=== PATIENT | female | born 1965 | race Hispanic/Latino ===

== ENCOUNTER 2019-10-10 05:00 | Emergency (ER) | payer OTHER ==
[~2019-10-10 05:00] MED LIST: ARIP30TA8 PO; CELE100 PO; DIVA500T69 PO; FLUO20CA30 PO; HYDR50CA PO; INSU100V12 SQ; INSU10VI3 SQ; OLME1TAB7 PO
[2019-10-10] MEDS ORDERED: KETOROLAC TROMETHAMINE 30MG/ML ONE (05:44)
[2019-10-10] MEDS ORDERED: DEXAMETHASONE SOD PHOSPHATE 10MG/ML 1ML VIAL ONE ×2 (05:44→05:48)
[2019-10-10] MEDS ORDERED: ORPHENADRINE CITRATE 30 MG/ML ML ONE (05:44)
[2019-10-10] MEDS ORDERED: LIDOCAINE 5% TOPICAL PATCH TP ONE (05:49)
== END 2019-10-10 06:54 | disposition home or self-care (01) ==
LOC: EDH 05:00
DX: S39.012A Strain of muscle, fascia and tendon of lower back, initial encounter (principal); F41.9 Anxiety disorder, unspecified; E11.9 Type 2 diabetes mellitus without complications; E78.5 Hyperlipidemia, unspecified; F32.9 Major depressive disorder, single episode, unspecified; F14.10 Cocaine abuse, uncomplicated; I10 Essential (primary) hypertension; F20.9 Schizophrenia, unspecified; Z90.49 Acquired absence of other specified parts of digestive tract; Z88.8 Allergy status to other drugs, medicaments and biological substances; X50.0XXA Overexertion from strenuous movement or load, initial encounter; Y93.89 Activity, other specified; Y92.89 Other specified places as the place of occurrence of the external cause; Y99.8 Other external cause status
CPT/HCPCS: 96374; 96375; 99284; J1100 ×2; J1885; J2360

== ENCOUNTER 2020-06-17 03:38 | Inpatient (IN) | payer SELFPAY ==
[~2020-06-17] VITALS: Ht 167.6 cm; Wt 108.9 kg
[2020-06-17] MEDS ORDERED: ONDANSETRON HCL 4 MG/2 ML VIAL ONE (03:48)
[2020-06-17] MEDS ORDERED: SODIUM CHLORIDE 0.9% 1000ML 1,000 ML IV ONE ×2 (03:49→05:39)
[2020-06-17] MEDS ORDERED: MORPHINE SULFATE 2 MG/ML 1ML SYG ONE (03:49)
[2020-06-17 04:02] LABS: BASOPHILS % (AUTO) 0.2 % (0.0-5.0); EOSINOPHILS % (AUTO) 0.2 % (0.0-8.0); LYMPHOCYTES % (AUTO) 12.3 % (21.0-51.0); MEAN CORPUSCULAR HEMOGLOBIN 29.4 pg (27.0-33.0); MEAN CORPUSCULAR VOLUME 84.1 fL (79-99); MONOCYTES % (AUTO) 5.6 % (3.0-13.0); NEUTROPHILS % (AUTO) 81.4 % (40.0-77.0); PLATELET COUNT (AUTO) 218 K/uL (130-400); RED BLOOD CELL COUNT(AUTO) 5.23 MIL/uL (4.00-5.50); RED CELL DISTRIBUTION WIDTH 11.9 % (11.0-15.5); WHITE BLOOD COUNT (AUTO) 9.8 K/uL (4.8-10.8)
[2020-06-17 04:38] LABS: ALBUMIN 3.4 g/dL (3.5-5.0); CREATININE 0.8 mg/dL (0.5-1.5); TOTAL PROTEIN, SERUM 8.9 g/dL (6.0-8.3)
[2020-06-17 05:03] LABS: APPEARANCE,URINE Clear (CLEAR); BILIRUBIN,URINE Negative (NEGATIVE); COLOR,URINE Yellow (YELLOW); GLUCOSE, URINE (UA) >=1000 mg/dL (NEGATIVE); KETONES,URINE >=80 mg/dL (NEGATIVE); LEUKOCYTE ESTERASE ,URINE Negative (NEGATIVE); NITRATE,URINE Negative (NEGATIVE); OCCULT BLOOD,URINE Negative (NEGATIVE); PH,URINE 5.5 (5.0-8.0); PROTEIN,URINE Trace mg/dL (NEGATIVE)
[2020-06-17] MEDS ORDERED: INSULIN HUMULIN R 100 UNIT/ML 3ML ONE ×2 (05:10→09:04)
[2020-06-17 05:12] LABS: AMPHET/METH SCREEN,URINE NEGATIVE (NEGATIVE); BARBITURATE SCREEN, URINE NEGATIVE (NEGATIVE); BENZODIAZEPINES SCREEN,URINE NEGATIVE (NEGATIVE); CANNABINOID SCREEN,URINE NEGATIVE (NEGATIVE); COCAINE SCREEN,URINE POSITIVE (NEGATIVE); OPIATE SCREEN,URINE POSITIVE (NEGATIVE); PHENCYCLIDINE SCREEN,URINE NEGATIVE (NEGATIVE)
[2020-06-17 05:13] LABS: BACTERIA,URINE None Seen /HPF (None Seen); RBC,URINE 0-1 /HPF (0-1); SQUAMOUS EPITHELIAL CELL,UR Rare /HPF (0-2); WBC,URINE 0-1 /HPF (0-1); YEAST,URINE BUDDING Rare /HPF (None Seen)
[2020-06-17] MEDS ORDERED: KETOROLAC TROMETHAMINE 30MG/ML ONE (05:40)
[2020-06-17] MEDS ORDERED: ONDANSETRON HCL 4 MG/2 ML VIAL IVP PRN (06:45)
[2020-06-17] MEDS ORDERED: KETOROLAC TROMETHAMINE 15MG/ML IV PRN (06:45)
[2020-06-17] MEDS ORDERED: INSULIN HUMULIN R 100 UNIT/ML 3ML SQ SCH (07:30)
[2020-06-17] MEDS ORDERED: HYDROMORPHONE HCL 0.5 MG/0.5 ML ML IVP PRN (08:45)
[2020-06-17] MEDS ORDERED: HYDROMORPHONE 1 MG/1 ML AMP ONE ×2 (08:56→08:59)
[2020-06-17] MEDS ORDERED: ENOXAPARIN SODIUM 40 MG/0.4 ML SYRINGE SQ ONE (08:56)
[2020-06-17] MEDS: ENOXAPARIN SODIUM 40 MG/0.4 ML SYRINGE SQ SCH (09:00)
[2020-06-17] MEDS: LACTATED RINGERS 1000ML 1,000 ML IV SCH ×2 (14:38→22:38)
[2020-06-17] MEDS ORDERED: KETOROLAC TROMETHAMINE 15MG/ML ONE (15:08)
[2020-06-18] MEDS ORDERED: KETOROLAC TROMETHAMINE 30MG/ML ONE (00:12)
[2020-06-18] MEDS ORDERED: HYDROMORPHONE HCL 0.5 MG/0.5 ML ML ONE (05:59)
[2020-06-18 06:16] LABS: BASOPHILS % (AUTO) 0.4 % (0.0-5.0); EOSINOPHILS % (AUTO) 5.7 % (0.0-8.0); HEMATOCRIT 35.9 % (36-48); LYMPHOCYTES % (AUTO) 44.9 % (21.0-51.0); MEAN CORPUSCULAR HEMOGLOBIN 29.2 pg (27.0-33.0); MEAN CORPUSCULAR HGB CONC 33.1 g/dL (32.0-36.0); NEUTROPHILS % (AUTO) 40.8 % (40.0-77.0); PLATELET COUNT (AUTO) 167 K/uL (130-400); RED BLOOD CELL COUNT(AUTO) 4.08 MIL/uL (4.00-5.50); RED CELL DISTRIBUTION WIDTH 12.3 % (11.0-15.5); WHITE BLOOD COUNT (AUTO) 5.1 K/uL (4.8-10.8)
[2020-06-18 06:33] LABS: ALBUMIN 2.5 g/dL (3.5-5.0); BILIRUBIN,TOTAL 0.6 mg/dL (0.2-1.0); CREATININE 0.8 mg/dL (0.5-1.5); POTASSIUM 4.1 mmol/L (3.5-5.1)
[2020-06-18] MEDS: LACTATED RINGERS 1000ML 1,000 ML IV SCH ×2 (06:38→16:54)
[2020-06-18] MEDS ORDERED: ENOXAPARIN SODIUM 40 MG/0.4 ML SYRINGE SQ ONE (08:23)
[2020-06-18] MEDS ORDERED: LACTATED RINGERS 1000ML 1,000 ML IV ONE (08:24)
[2020-06-18] MEDS: PANTOPRAZOLE 40 MG/VIAL IVP SCH ×2 (09:00→14:38)
[2020-06-18] MEDS: ENOXAPARIN SODIUM 40 MG/0.4 ML SYRINGE SQ SCH (09:00)
[2020-06-18] MEDS ORDERED: KETOROLAC TROMETHAMINE 15MG/ML ONE (09:17)
[2020-06-18] MEDS ORDERED: BISACODYL 10 MG SUPP.RECT RC SCH (11:15)
[2020-06-18] MEDS ORDERED: INSULIN GLARGINE 100 UNITS/ML 10 ML VIAL SQ SCH (11:15)
[2020-06-18 12:00] VITALS: BP 127/72
[2020-06-18] MEDS: INSULIN HUMULIN R 100 UNIT/ML 3ML SQ SCH ×4 (12:30→22:27)
--- NOTE | 2020-06-18 13:30 | NUR ---
ER ADMIT TO ROOM SERVICES DR. DIAZ, DATABASE COMPLETE.
--- NOTE | 2020-06-18 14:00 | NUR ---
SHOWERED. STATES WAS IN ER FOR 2 DAYS AND FEELS SWEATY AND DIRTY.
[2020-06-18 16:00] VITALS: BP 136/98
--- NOTE | 2020-06-18 16:00 | NUR ---
UP AD TIMOTHY. MEDICATED ONCE THIS SHIFT.
[2020-06-18] MEDS: HYDROMORPHONE 1 MG/1 ML AMP IVP PRN (16:08)
[2020-06-18] MEDS ORDERED: BISACODYL 10 MG SUPP.RECT RC ONE (17:30)
--- NOTE | 2020-06-18 17:58 | NUR ---
cm note met with patient and states resides at home alone. independent with adls/ambulation. no dme. [facility] does not see PCP, discussed community resources in the area and rx assist programs, pt verbalizes understanding. has mother who is her support system rosemary martin [phone]. dc plan is back home at or. states no dc needs. Addendum: 06/18/20 at 1805 by MARCIE MENENDEZ CM Amended: Links added.
[2020-06-18 22:02] VITALS: BP 135/65
[2020-06-19 00:53] VITALS: BP 145/81
[2020-06-19] MEDS: HYDROMORPHONE 1 MG/1 ML AMP IVP PRN (03:34)
[2020-06-19 04:33] VITALS: BP 123/63
[2020-06-19] MEDS: INSULIN HUMULIN R 100 UNIT/ML 3ML SQ SCH ×2 (05:43→11:39)
[2020-06-19] MEDS: LACTATED RINGERS 1000ML 1,000 ML IV SCH (05:43)
[2020-06-19] MEDS: PANTOPRAZOLE 40 MG/VIAL IVP SCH (07:19)
[2020-06-19] MEDS: ENOXAPARIN SODIUM 40 MG/0.4 ML SYRINGE SQ SCH (07:20)
[2020-06-19 08:00] VITALS: BP 141/75
--- NOTE | 2020-06-19 08:00 | NUR ---
ASSESSMENT PT IS AAOX3 DENIES CP DENIES SOB DENIES NV DENIES ABD PAIN. NO COMPLAINTS. PT STATES SHE HAD SEVERAL BMS YESTERDAY. SITTING UPRIGHT IN BED, CALL LIGHT WITHIN REACH.
[2020-06-19 08:01] LABS: BASOPHILS % (AUTO) 0.2 % (0.0-5.0); EOSINOPHILS % (AUTO) 5.4 % (0.0-8.0); HEMATOCRIT 34.9 % (36-48); LYMPHOCYTES % (AUTO) 52.1 % (21.0-51.0); MEAN CORPUSCULAR HEMOGLOBIN 29.8 pg (27.0-33.0); MEAN CORPUSCULAR HGB CONC 33.8 g/dL (32.0-36.0); MEAN CORPUSCULAR VOLUME 88.1 fL (79-99); MONOCYTES % (AUTO) 7.7 % (3.0-13.0); NEUTROPHILS % (AUTO) 34.4 % (40.0-77.0); PLATELET COUNT (AUTO) 156 K/uL (130-400); RED BLOOD CELL COUNT(AUTO) 3.96 MIL/uL (4.00-5.50); RED CELL DISTRIBUTION WIDTH 12.1 % (11.0-15.5); WHITE BLOOD COUNT (AUTO) 4.3 K/uL (4.8-10.8)
[2020-06-19 08:13] LABS: CREATININE 0.8 mg/dL (0.5-1.5); MAGNESIUM 1.4 mg/dL (1.80-2.40); POTASSIUM 3.6 mmol/L (3.5-5.1)
[2020-06-19] MEDS ORDERED: METF-444 PO (11:16)
[2020-06-19 11:27] VITALS: BP 122/76
--- NOTE | 2020-06-19 12:12 | NUR ---
DC TO HOME PT VERBALIZES DC INSTRUCTIONS UNDERSTANDING AGREES TO TAKE MEDS ORDERED. AGREES TO FOLLOW UP WITH PRIMARY MD. ALL QUESTIONS ANSWERED, PIV REMOVED CATH TIP INTACT. AWAITING RIDE.
== END 2020-06-19 12:00 | disposition home or self-care (01) | DRG 390 ==
LOC: EDH 03:38 → EDHIP 03:39 → 4CH 06-18 12:05
PROVIDERS: ADMIT Hospitalist; ATTEND Hospitalist
PROC: 0D9670Z Drainage of Stomach with Drainage Device, Via Natural or Artificial Opening (ICD-10-PCS; principal; 2020-06-17)
DX: K56.609 Unspecified intestinal obstruction, unspecified as to partial versus complete obstruction (principal); E11.9 Type 2 diabetes mellitus without complications; F14.90 Cocaine use, unspecified, uncomplicated; F17.290 Nicotine dependence, other tobacco product, uncomplicated; F20.9 Schizophrenia, unspecified; F32.9 Major depressive disorder, single episode, unspecified; E86.0 Dehydration; E78.5 Hyperlipidemia, unspecified; F41.9 Anxiety disorder, unspecified; I10 Essential (primary) hypertension; M19.90 Unspecified osteoarthritis, unspecified site; Z90.49 Acquired absence of other specified parts of digestive tract
CPT/HCPCS: 36415; 74018; 74176; 80048; 80053; 80305; 81001; 82948; 83036; 83605; 83690; 83735; 85025; 93005; C9113; G0378; J1170; J1650; J1815; J1885; J2405; J7030; J7120

== ENCOUNTER 2022-05-03 16:55 | Inpatient (IN) | payer OTHER ==
[~2022-05-03] VITALS: Ht 170.2 cm; Wt 102.6 kg
[~2022-05-03 16:55] MED LIST changes: +ACET-2247 PO; -ARIP30TA8 PO; -CELE100 PO; -DIVA500T69 PO; -FLUO20CA30 PO; -HYDR50CA PO; -INSU100V12 SQ; -INSU10VI3 SQ; +METF-444 PO; -OLME1TAB7 PO
[2022-05-03 17:41] LABS: APPEARANCE,URINE CLEAR (CLEAR); BILIRUBIN,URINE NEGATIVE (NEGATIVE); COLOR,URINE YELLOW (YELLOW); GLUCOSE, URINE (UA) >=1000 mg/dL (NEGATIVE); KETONES,URINE 15 mg/dL (NEGATIVE); LEUKOCYTE ESTERASE ,URINE NEGATIVE (NEGATIVE); NITRATE,URINE NEGATIVE (NEGATIVE); OCCULT BLOOD,URINE NEGATIVE (NEGATIVE); PH,URINE 6.5 (5.0-8.0); PROTEIN,URINE TRACE mg/dL (NEGATIVE)
[2022-05-03 17:52] LABS: RBC,URINE 0-1 /HPF (0-1); WBC,URINE 0-1 /HPF (0-1)
[2022-05-03 17:53] LABS: BACTERIA,URINE Rare /HPF (None Seen); SQUAMOUS EPITHELIAL CELL,UR Few /HPF (0-2); YEAST,URINE BUDDING Few /HPF (None Seen)
[2022-05-03] MEDS ORDERED: KETOROLAC 30MG VIAL (30MG/ML) IVP ONE (18:00)
[2022-05-03 18:03] LABS: AMPHET/METH SCREEN,URINE NEGATIVE (NEGATIVE); BARBITURATE SCREEN, URINE NEGATIVE (NEGATIVE); BENZODIAZEPINES SCREEN,URINE NEGATIVE (NEGATIVE); CANNABINOID SCREEN,URINE NEGATIVE (NEGATIVE); COCAINE SCREEN,URINE POSITIVE (NEGATIVE); OPIATE SCREEN,URINE NEGATIVE (NEGATIVE); PHENCYCLIDINE SCREEN,URINE NEGATIVE (NEGATIVE)
[2022-05-03 18:19] LABS: BASOPHILS % (AUTO) 0.3 % (0.0-5.0); EOSINOPHILS % (AUTO) 0.7 % (0.0-8.0); HEMATOCRIT 43.8 % (36-48); LYMPHOCYTES % (AUTO) 14.8 % (21.0-51.0); MEAN CORPUSCULAR HEMOGLOBIN 29.9 pg (27.0-33.0); MEAN CORPUSCULAR HGB CONC 35.4 g/dL (32.0-36.0); MEAN CORPUSCULAR VOLUME 84.6 fL (79-99); MONOCYTES % (AUTO) 6.7 % (3.0-13.0); NEUTROPHILS % (AUTO) 77.1 % (40.0-77.0); PLATELET COUNT (AUTO) 211 K/uL (130-400); RED BLOOD CELL COUNT(AUTO) 5.18 MIL/uL (4.00-5.50); WHITE BLOOD COUNT (AUTO) 9.1 K/uL (4.8-10.8)
[2022-05-03] MEDS ORDERED: PANTOPRAZOLE 40 MG/VIAL IVP ONE (18:30)
[2022-05-03 18:52] LABS: CREATININE 0.8 mg/dL (0.5-1.5); POTASSIUM 3.7 mmol/L (3.5-5.1)
[2022-05-03 18:56] LABS: ALBUMIN 3.1 g/dL (3.5-5.0); BILIRUBIN,TOTAL 0.6 mg/dL (0.2-1.0)
[2022-05-03] MEDS ORDERED: INSULIN HUMULIN R 100 UNIT/ML 3ML SQ ONE (20:30)
[2022-05-03] MEDS ORDERED: 0.9%NACL 1000ML 1,000 ML IV ONE (20:30)
[2022-05-03] MEDS ORDERED: ONDANSETRON 4MG INJ IVP ONE (20:30)
[2022-05-03] MEDS ORDERED: MORPHINE 4 MG SYG IVP ONE (20:30)
[2022-05-03] MEDS ORDERED: DiphenhydrAMINE HCL 50 MG/ML VIAL IV PRN (21:30)
[2022-05-03] MEDS ORDERED: INSULIN HUMULIN R 100 UNIT/ML 3ML ONE (22:27)
[2022-05-03] MEDS: 0.9%NACL 1000ML 1,000 ML IV SCH (22:31)
[2022-05-03] MEDS: MORPHINE 2 MG SYG IV PRN (23:49)
[2022-05-04 02:30] VITALS: BP 118/66
[2022-05-04] MEDS: MORPHINE 2 MG SYG IV PRN ×4 (04:53→19:43)
[2022-05-04 07:00] VITALS: BP 123/64
[2022-05-04 07:09] LABS: HEMOGLOBIN A1C 11.8 % (4.0-6.0)
[2022-05-04 07:10] LABS: CREATININE 0.6 mg/dL (0.5-1.5); MAGNESIUM 2.3 mg/dL (1.80-2.40); POTASSIUM 4.4 mmol/L (3.5-5.1)
[2022-05-04 07:29] LABS: HEMATOCRIT 37.1 % (36-48); MEAN CORPUSCULAR HGB CONC 34.8 g/dL (32.0-36.0); MEAN CORPUSCULAR VOLUME 86.3 fL (79-99); RED BLOOD CELL COUNT(AUTO) 4.3 MIL/uL (4.00-5.50); RED CELL DISTRIBUTION WIDTH 12.2 % (11.0-15.5); WHITE BLOOD COUNT (AUTO) 5.5 K/uL (4.8-10.8)
[2022-05-04] MEDS ORDERED: INSULIN HUMULIN R 100 UNIT/ML 3ML SQ SCH (07:30)
[2022-05-04] MEDS: PANTOPRAZOLE 40 MG/VIAL IVP SCH (09:57)
[2022-05-04] MEDS: 0.9%NACL 1000ML 1,000 ML IV SCH ×2 (09:57→17:39)
[2022-05-04 12:00] VITALS: BP 108/69
[2022-05-04] MEDS: INSULIN HUMULIN R 100 UNIT/ML 3ML SQ SCH ×2 (13:26→17:51)
[2022-05-04] MEDS: ZOSYN 3.375GM +NS 50ML IV SCH ×2 (13:35→22:22)
[2022-05-04 16:00] VITALS: BP 119/87
[2022-05-04 20:01] VITALS: BP 113/67
[2022-05-05] VITALS: BP 132/68
[2022-05-05] MEDS: MORPHINE 2 MG SYG IV PRN ×5 (01:42→23:48)
[2022-05-05 04:17] VITALS: BP 116/70
[2022-05-05] MEDS: ZOSYN 3.375GM +NS 50ML IV SCH ×3 (05:08→20:58)
[2022-05-05] MEDS: 0.9%NACL 1000ML 1,000 ML IV SCH ×3 (05:09→23:55)
[2022-05-05] MEDS: INSULIN HUMULIN R 100 UNIT/ML 3ML SQ SCH ×5 (05:37→22:53)
[2022-05-05 08:00] VITALS: BP 143/73
[2022-05-05] MEDS: PANTOPRAZOLE 40 MG/VIAL IVP SCH (08:43)
[2022-05-05 11:22] LABS: BASOPHILS % (AUTO) 0.4 % (0.0-5.0); EOSINOPHILS % (AUTO) 4.7 % (0.0-8.0); HEMATOCRIT 36.8 % (36-48); LYMPHOCYTES % (AUTO) 42.5 % (21.0-51.0); MEAN CORPUSCULAR HEMOGLOBIN 30.2 pg (27.0-33.0); MEAN CORPUSCULAR HGB CONC 34.8 g/dL (32.0-36.0); MEAN CORPUSCULAR VOLUME 86.8 fL (79-99); MONOCYTES % (AUTO) 5.8 % (3.0-13.0); NEUTROPHILS % (AUTO) 46.2 % (40.0-77.0); PLATELET COUNT (AUTO) 165 K/uL (130-400); RED BLOOD CELL COUNT(AUTO) 4.24 MIL/uL (4.00-5.50); RED CELL DISTRIBUTION WIDTH 12.1 % (11.0-15.5); WHITE BLOOD COUNT (AUTO) 4.6 K/uL (4.8-10.8)
[2022-05-05 11:32] LABS: CREATININE 0.6 mg/dL (0.5-1.5); MAGNESIUM 1.6 mg/dL (1.80-2.40); POTASSIUM 3.8 mmol/L (3.5-5.1)
[2022-05-05 12:00] VITALS: BP 129/77
[2022-05-05 16:07] VITALS: BP 129/71
[2022-05-05 20:49] VITALS: BP 134/77
[2022-05-06 00:32] VITALS: BP 109/53
[2022-05-06 04:10] VITALS: BP 136/59
[2022-05-06] MEDS: ZOSYN 3.375GM +NS 50ML IV SCH ×3 (05:03→20:51)
[2022-05-06] MEDS: INSULIN HUMULIN R 100 UNIT/ML 3ML SQ SCH ×4 (06:00→20:57)
[2022-05-06 06:50] LABS: EOSINOPHILS % (AUTO) 3.1 % (0.0-8.0); HEMATOCRIT 40.9 % (36-48); LYMPHOCYTES % (AUTO) 50.6 % (21.0-51.0); MEAN CORPUSCULAR HGB CONC 34.2 g/dL (32.0-36.0); MEAN CORPUSCULAR VOLUME 87.6 fL (79-99); MONOCYTES % (AUTO) 5.3 % (3.0-13.0); NEUTROPHILS % (AUTO) 40.6 % (40.0-77.0); PLATELET COUNT (AUTO) 196 K/uL (130-400); RED BLOOD CELL COUNT(AUTO) 4.67 MIL/uL (4.00-5.50); RED CELL DISTRIBUTION WIDTH 12.2 % (11.0-15.5); WHITE BLOOD COUNT (AUTO) 4.9 K/uL (4.8-10.8)
[2022-05-06 07:04] LABS: CREATININE 0.7 mg/dL (0.5-1.5); POTASSIUM 3.8 mmol/L (3.5-5.1)
[2022-05-06 08:00] VITALS: BP 120/54
[2022-05-06] MEDS: 0.9%NACL 1000ML 1,000 ML IV SCH ×2 (09:00→16:59)
[2022-05-06] MEDS: PANTOPRAZOLE 40 MG/VIAL IVP SCH (09:00)
[2022-05-06] MEDS: MORPHINE 2 MG SYG IV PRN ×3 (09:00→20:58)
[2022-05-06 12:00] VITALS: BP 136/73
[2022-05-06 16:00] VITALS: BP 156/87
[2022-05-06 20:00] VITALS: BP 131/70
[2022-05-07] VITALS: BP 117/71
[2022-05-07] MEDS: MORPHINE 2 MG SYG IV PRN ×2 (04:14→08:36)
[2022-05-07] MEDS: ZOSYN 3.375GM +NS 50ML IV SCH (04:14)
[2022-05-07 04:46] VITALS: BP 156/81
[2022-05-07] MEDS: INSULIN HUMULIN R 100 UNIT/ML 3ML SQ SCH ×2 (06:53→12:39)
[2022-05-07 08:30] VITALS: BP 137/77
[2022-05-07] MEDS: PANTOPRAZOLE 40 MG/VIAL IVP SCH (08:36)
[2022-05-07 12:18] VITALS: BP 158/84
== END 2022-05-07 13:30 | disposition home or self-care (01) | DRG 390 ==
LOC: EDH 16:55 → EDHIP 16:56 → 3BH 05-04 01:34
PROVIDERS: ADMIT Internal Medicine; ATTEND Internal Medicine
DX: K56.609 Unspecified intestinal obstruction, unspecified as to partial versus complete obstruction (principal); F14.10 Cocaine abuse, uncomplicated; E11.65 Type 2 diabetes mellitus with hyperglycemia; E78.5 Hyperlipidemia, unspecified; F32.A Depression, unspecified; E66.01 Morbid (severe) obesity due to excess calories; F41.9 Anxiety disorder, unspecified; F20.9 Schizophrenia, unspecified; F17.290 Nicotine dependence, other tobacco product, uncomplicated; Z20.822 Contact with and (suspected) exposure to COVID-19; E83.42 Hypomagnesemia; F43.10 Post-traumatic stress disorder, unspecified; I10 Essential (primary) hypertension; Z91.19 Patient's noncompliance with other medical treatment and regimen; Z90.49 Acquired absence of other specified parts of digestive tract; Z68.35 Body mass index [BMI] 35.0-35.9, adult
CPT/HCPCS: 36415; 74018; 74176; 80048; 80053; 80061; 80305; 81001; 82948; 83036; 83605; 83690; 83735; 85025; 85027; 87635; C9113; G0378; J1815; J1885; J2270; J2405; J2543; J7030

== ENCOUNTER 2023-06-20 16:11 | Emergency (ER) | payer OTHER ==
[~2023-06-20] VITALS: Ht 160 cm; Wt 113.4 kg
[2023-06-20 16:20] VITALS: BP 149/82; PULSE 105; RESP 18
[2023-06-20] MEDS ORDERED: KETOROLAC 60 MG VIAL (30MG/ML) IM ONE (16:30)
== END 2023-06-20 19:09 | disposition home or self-care (01) ==
LOC: EDH 16:11
DX: S16.1XXA Strain of muscle, fascia and tendon at neck level, initial encounter (principal); F31.9 Bipolar disorder, unspecified; E11.9 Type 2 diabetes mellitus without complications; I10 Essential (primary) hypertension; Z79.84 Long term (current) use of oral hypoglycemic drugs; Z88.8 Allergy status to other drugs, medicaments and biological substances; V89.2XXA Person injured in unspecified motor-vehicle accident, traffic, initial encounter; Y93.89 Activity, other specified; Y92.89 Other specified places as the place of occurrence of the external cause; Y99.8 Other external cause status
CPT/HCPCS: 99283; 72050; 96372; J1885

== ENCOUNTER 2023-06-30 18:15 | Emergency (ER) | payer OTHER ==
[~2023-06-30] VITALS: Ht 167.6 cm; Wt 90.7 kg
[2023-06-30] MEDS ORDERED: MORPHINE 2 MG SYG IVP ONE (19:30)
[2023-06-30] MEDS ORDERED: ONDANSETRON 4MG INJ IVP ONE (19:30)
[2023-06-30] MEDS ORDERED: 0.9%NACL 1000ML 1,000 ML IV ONE (19:30)
[2023-06-30 20:25] LABS: BASOPHILS # (AUTO) 0.03 K/uL (0.00-0.20); BASOPHILS % (AUTO) 0.4 % (0.0-5.0); EOSINOPHILS # (AUTO) 0.16 K/uL (0.00-0.70); HEMATOCRIT 41.2 % (36-48); IMMATURE GRANULOCYTE ABSOLUTE 0.04 K/uL (0-1); LYMPHOCYTES # (AUTO) 2.8 K/uL (1.0-4.8); LYMPHOCYTES % (AUTO) 35.1 % (21.0-51.0); MEAN CORPUSCULAR HEMOGLOBIN 29.9 pg (27.0-33.0); MEAN CORPUSCULAR VOLUME 85.7 fL (79-99); MONOCYTES # (AUTO) 0.5 K/uL (0.1-1.0); MONOCYTES % (AUTO) 5.9 % (3.0-13.0); NEUTROPHILS # (AUTO) 4.4 K/uL (1.8-7.7); NEUTROPHILS % (AUTO) 56.1 % (40.0-77.0); PLATELET COUNT (AUTO) 204 K/uL (130-400); RED BLOOD CELL COUNT(AUTO) 4.81 MIL/uL (4.00-5.50); WHITE BLOOD COUNT (AUTO) 7.9 K/uL (4.8-10.8)
[2023-06-30 20:35] LABS: APPEARANCE,URINE CLEAR (CLEAR); BILIRUBIN,URINE NEGATIVE (NEGATIVE); COLOR,URINE YELLOW (YELLOW); GLUCOSE, URINE (UA) >=1000 mg/dL (NEGATIVE); KETONES,URINE NEGATIVE (NEGATIVE); LEUKOCYTE ESTERASE ,URINE NEGATIVE Leu/uL (NEGATIVE); NITRATE,URINE NEGATIVE (NEGATIVE); OCCULT BLOOD,URINE NEGATIVE (NEGATIVE); PROTEIN,URINE NEGATIVE (NEGATIVE)
[2023-06-30 20:36] LABS: ADD UA MICROSCOPIC YES; SQUAMOUS EPITHELIAL CELL,UR FEW /HPF (0-2)
[2023-06-30 20:39] LABS: CREATININE 0.7 mg/dL (0.5-1.5); POTASSIUM 3.9 mmol/L (3.5-5.1)
[2023-06-30 20:43] LABS: ALBUMIN 2.9 g/dL (3.5-5.0); BILIRUBIN,TOTAL 0.3 mg/dL (0.2-1.0); TOTAL PROTEIN, SERUM 7.5 g/dL (6.0-8.3)
[2023-06-30] MEDS ORDERED: IOHEXOL 350 MG/ML 100ML INFUS..BTL IV ONE (20:53)
[2023-06-30] MEDS ORDERED: CIPR-278 PO (22:12)
[2023-06-30] MEDS ORDERED: METR-172 PO (22:12)
[2023-06-30 23:28] VITALS: BP 132/78; PULSE 78; RESP 18; O2SAT 98
== END 2023-06-30 23:30 | disposition home or self-care (01) ==
LOC: EDH 18:15
DX: K57.90 Diverticulosis of intestine, part unspecified, without perforation or abscess without bleeding (principal); E11.9 Type 2 diabetes mellitus without complications; K21.9 Gastro-esophageal reflux disease without esophagitis
CPT/HCPCS: 99285; 74177; 96374; 71045; 96361; 96375; 84484; 80053; 83690; 85025; 81001; 36415; J2270; J7030; J2405; Q9967

== ENCOUNTER 2023-11-01 08:02 | Emergency (ER) | payer OTHER ==
[~2023-11-01] VITALS: Ht 170.2 cm; Wt 90.7 kg
[~2023-11-01 08:02] MED LIST changes: +CIPR-278 PO; +METR-172 PO
[2023-11-01 08:03] VITALS: BP 128/64; PULSE 85; RESP 16
[2023-11-01 08:48] LABS: RAPID GROUP A STREP negative (NEGATIVE)
[2023-11-01 08:57] LABS: SARS-CoV-2, RNA, NAAT NEGATIVE SARS CoV-2 (NEGATIVE)
[2023-11-01 08:58] LABS: INFLUENZA TYPE A Negative For Type A (NEGATIVE); INFLUENZA TYPE B Negative For Type B (NEGATIVE)
[2023-11-01 10:36] LABS: APPEARANCE,URINE CLEAR (CLEAR); BILIRUBIN,URINE NEGATIVE (NEGATIVE); COLOR,URINE YELLOW (YELLOW); GLUCOSE, URINE (UA) >=1000 mg/dL (NEGATIVE); KETONES,URINE 40 mg/dL (NEGATIVE); LEUKOCYTE ESTERASE ,URINE NEGATIVE Leu/uL (NEGATIVE); NITRATE,URINE NEGATIVE (NEGATIVE); OCCULT BLOOD,URINE NEGATIVE (NEGATIVE); PROTEIN,URINE 50 mg/dL (NEGATIVE); UROBILINOGEN,URINE 0.2 mg/dL (0.2-1.0)
[2023-11-01 10:38] LABS: ADD UA MICROSCOPIC YES
[2023-11-01 10:53] LABS: MUCUS,URINE RARE LPF (None Seen); SQUAMOUS EPITHELIAL CELL,UR RARE /HPF (0-2)
[2023-11-01] MEDS ORDERED: INSULIN HUMULIN R 100 UNIT/ML 3ML SQ ONE (11:30)
== END 2023-11-01 12:14 | disposition home or self-care (01) ==
LOC: EDH 08:02
DX: B34.9 Viral infection, unspecified (principal); E11.65 Type 2 diabetes mellitus with hyperglycemia; K21.9 Gastro-esophageal reflux disease without esophagitis; E11.9 Type 2 diabetes mellitus without complications; Z20.822 Contact with and (suspected) exposure to COVID-19; Z79.84 Long term (current) use of oral hypoglycemic drugs; Z79.899 Other long term (current) drug therapy; Z98.890 Other specified postprocedural states; Z88.8 Allergy status to other drugs, medicaments and biological substances
CPT/HCPCS: 99283; 87635; 87880; 87804 ×2; 82948 ×2; 81001; 96372; J1815; C9803

== ENCOUNTER 2025-07-08 07:20 | Emergency (ER) | payer SELFPAY ==
[~2025-07-08] VITALS: Ht 167.6 cm; Wt 81.6 kg
[~2025-07-08 07:20] MED LIST changes: -ACET-2247 PO; +ASPI-1005 PO; +ATOR40TA69 PO; -CIPR-278 PO; +CLOP-31 PO; +GLYB2.5T6 PO; +INSU100I3 SQ; -METF-444 PO; +METF-445 PO; +METO25 PO; -METR-172 PO; +NITR0.4T50 SL; +PANT40TA55 PO
--- NOTE | 2025-07-08 08:18 | EKG ---
[facility] Test Date: 2025-07-08 Test Time: 07:21:55 Pat Name: LUL ARTHUR Department: ED Room: Gender: F Casework Manager: [id number] : 1965 Requested By: ZORA OCHOA Order Number: [id number] Reading MD: Ti Foreman Measurements Intervals [place] Rate: 80 P: -10 [place]: 130 QRS: 3 QRSD: 125 T: 16 QT: 412 QTc: 476 Interpretive Statements Sinus rhythm Right bundle branch block Compared to ECG 04/15/2025 15:28:22 No significant changes Electronically Signed On 07-09-2025 17:30:31 CDT by Ti Foreman Please click the below link to view image of tracing.
[2025-07-08 08:24] LABS: IMMATURE GRANULOCYTE ABSOLUTE 0.03 K/uL (0-1); NUCLEATED RED BLOOD CELLS 0.0 % (0.0-0.19); PLATELET COUNT (AUTO) 213 K/uL (130-400); RED BLOOD CELL COUNT(AUTO) 4.60 MIL/uL (4.00-5.50); RED CELL DISTRIBUTION WIDTH 12.2 % (11.0-15.5); WHITE BLOOD COUNT (AUTO) 7.3 K/uL (4.8-10.8)
--- NOTE | 2025-07-08 08:24 | HMCIMG ---
EXAM: CR Chest, 1 View. CLINICAL HISTORY: cp COMPARISON: 04/15/2025 chest single view. FINDINGS: LUNGS: There is no mass, infiltrate, or acute pulmonary abnormality. PLEURAL SPACES: No evidence of pleural effusion or pneumothorax. MEDIASTINUM: Cardiac size and mediastinal contours within normal limits. BONES: No acute osseous abnormality. IMPRESSION: No acute cardiopulmonary pathology is evident. /[place]
[2025-07-08 08:25] LABS: CREATININE 0.6 mg/dL (0.5-1.0); GLOMERULAR FILTR. RATE CALC 104.0 mL/min (>90); GLUCOSE,RANDOM 338.0 mg/dL (70-105); SODIUM SERUM 134.0 mmol/L (136-145); UREA NITROGEN, BLOOD 14.0 mg/dL (7-18)
[2025-07-08] MEDS: 0.9% NACL 500ML IV.SOLN 500 ML IV ONE (08:27)
[2025-07-08 08:29] LABS: ASPARTATE AMINOTRANSFERASE 20.0 U/L (10-37); TOTAL PROTEIN, SERUM 8.0 g/dL (6.0-8.3)
--- NOTE | 2025-07-08 08:39 | NUR ---
refused covid swab
[2025-07-08] MEDS ORDERED: AZIT250T9 PO (10:54)
[2025-07-08] MEDS ORDERED: NAPR-1196 PO (10:54)
--- NOTE | 2025-07-08 10:54 | ERN ---
ED Note History of Present Illness Stated Complaint: CP Chief Complaint: Chest Pain Time Seen by MD: 07:31 Dictation: 60-year-old female presenting to the emergency department with generalized body aches low-grade fever chills chest discomfort and headaches over the past few days. No abdominal pain or vomiting Allergies: Coded Allergies: No Known Drug Allergies (Verified Allergy, Unknown, 05/04/22) lisinopril (Verified Allergy, Unknown, 05/04/22) Home Meds Active Scripts Insulin Aspart (Novolog Flexpen) 100 Unit/Ml (3 Ml) Insuln.pen, 2 UNITS SQ TIDAC for 30 Days, #4 SYRINGE 2 Refills Prov:GEE MARTIN MD 04/23/25 Glyburide (Glyburide 2.5MG Tab) 2.5 Mg Tab, 1 TAB PO DAILY for 30 Days, #30 TAB 1 Refill Prov:GEE MARTIN MD 04/23/25 Metformin HCl (Metformin HCl) 850 Mg Tablet, 1 TAB PO BID for 30 Days, #60 TAB 2 Refills Prov:GEE MARTIN MD 04/23/25 Nitroglycerin (Nitroglycerin) 0.4 Mg Tab.subl, 1 TAB SL AD for chest pain, #25 TAB 1 Refill 1st sign of attack; may repeat every 5 mins; if pain persists after 3 in 15 m in, medical attention is recommended Prov:GEE MARTIN MD 04/22/25 Pantoprazole Sodium (Protonix) 40 Mg Ectab, 1 TAB PO DAILY for 30 Days, #30 TAB 1 Refill Prov:GEE MARTIN MD 04/22/25 Metoprolol Tartrate (Lopressor) 25 Mg Tab, 25 MG PO BID for 30 Days, #60 TAB 1 Refill Prov:GEE MARTIN MD 04/22/25 Clopidogrel Bisulfate (Plavix) 75 Mg Tablet, 75 MG PO DAILY for 30 Days, #30 TAB 1 Refill Prov:GEE MARTIN MD 04/22/25 Atorvastatin Calcium (LIPITOR) 40 Mg Tablet, 40 MG PO HS for 30 Days, #30 TAB 1 Refill Prov:GEE MARTIN MD 04/22/25 Aspirin (ASPIRIN 81MG CHEW TAB) 81 Mg Tab.chew, 81 MG PO DAILY for 30 Days, #30 TAB.CHEW 1 Refill Prov:GEE MARTIN MD 04/22/25 Past Medical History Past Medical History: Diabetes-Type II, High Cholesterol, Hypertension Additional Past Medical Hx: COCAINE, PTSD, OBESE, BOWEL 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 Surgical History: Cholecystectomy, Other Surgical History Other: HERNIA SX Family History: Negative Social History: Drugs, Lives with family History: Not Applicable Review of System Dictation Constitutional per HPI Eyes: Negative for injury, pain,redness, and discharge ENT: Negative for injury,pain or swelling Cardiovascular: Negative for chest pain, palpitations, and edema Respiratory: Per HPI Abdomen/GI: Negative for abdominal pain, nausea, vomiting, diarrhea, and constipation Back: Negative for injury and pain : Negative for injury, bleeding and discharge MS/Extremity: Negative for injury and deformity Skin: Negative for rash, and discoloration Neuro: Negative for headache, weakness, numbness, tingling, and seizure Psych: Negative for suicide ideation, homicidal ideation, and hallucinations Initial Vital Sign VS Vital Signs Date Time Temp Pulse Resp B/P (MAP) Pulse Ox O2 Delivery O2 Flow Rate FiO2 07/08/25 07:22 98.1 80 17 153/80 98 Room Air 0 Physical Exam Dictation General: awake, alert, NAD Head/Face: Normocephalic, atraumatic Eyes: PERRL, EOMI, vision at baseline ENT: oral cavity clear, TMs clear, no signs of infection Neck: Trachea midline, supple, no nuchal rigidity Cardiovascular: RRR, normal S1/S2, No MRGs, no JVD Respiratory: CTAB, no respiratory distress, No rales or wheezes Abdomen: Soft, non-tender, non-distended, normal bowel sounds, no guarding or rebound. Skin: Warm, dry, normal turgor, no rash MS/Extremity: Pulses equal, no cyanosis, neurovascular intact, FROM Neuro: COAx4, GCS 15, strength 5/5, CN 2-12 intact, normal cerebellar exam, normal gait, Psych: Normal behavior, mood, and affect normal Results (Laboratory/Radiology) Laboratory/Radiology Laboratory Tests Test 07/08/25 08:02 07/08/25 10:17 White Blood Count 7.3 K/uL (4.8-10.8) Red Blood Count 4.60 MIL/uL (4.00-5.50) Hemoglobin 14.1 g/dL (12.0-16.0) Hematocrit 40.8 % (36-48) Mean Corpuscular Volume 88.7 fL (79-99) Mean Corpuscular Hemoglobin 30.7 pg (27.0-33.0) Mean Corpuscular Hemoglobin Concent 34.6 g/dL (32.0-36.0) Red Cell Distribution Width 12.2 % (11.0-15.5) Platelet Count 213 K/uL (130-400) Mean Platelet Volume 11.4 fL (7.5-10.5) H Immature Granulocyte % (Auto) 0.4 % (0-1) Neutrophils (%) (Auto) 61.0 % (40.0-77.0) Lymphocytes (%) (Auto) 28.7 % (21.0-51.0) Monocytes (%) (Auto) 6.4 % (3.0-13.0) Eosinophils (%) (Auto) 3.0 % (0.0-8.0) Basophils (%) (Auto) 0.5 % (0.0-5.0) Neutrophils # (Auto) 4.4 K/uL (1.8-7.7) Lymphocytes # (Auto) 2.1 K/uL (1.0-4.8) Monocytes # (Auto) 0.5 K/uL (0.1-1.0) Eosinophils # (Auto) 0.22 K/uL (0.00-0.70) Basophils # (Auto) 0.04 K/uL (0.00-0.20) Absolute Immature Granulocyte (auto 0.03 K/uL (0-1) Nucleated Red Blood Cells 0.0 % (0.0-0.19) Sodium Level 134 mmol/L (136-145) L Potassium Level 4.1 mmol/L (3.5-5.1) Chloride Level 99 mmol/L (101-111) L Carbon Dioxide Level 30 mmol/L (21-32) Blood Urea Nitrogen 14 mg/dL (7-18) Creatinine 0.6 mg/dL (0.5-1.0) Glomerular Filtration Rate Calc 104 mL/min (>90) Random Glucose 338 mg/dL (70-105) H Total Calcium 8.9 mg/dL (8.5-10.1) Total Bilirubin 0.4 mg/dL (0.2-1.0) Direct Bilirubin 0.1 mg/dL (0.0-0.3) Aspartate Amino Transf (AST/SGOT) 20 U/L (10-37) Alanine Aminotransferase (ALT/SGPT) 25 U/L (12-78) Alkaline Phosphatase 140 U/L (50-136) H Troponin I High Sensitivity 15 ng/L (4-50) 14 ng/L (4-50) B-Type Natriuretic Peptide 46 pg/mL (0-100) Total Protein 8.0 g/dL (6.0-8.3) Albumin 2.9 g/dL (3.5-5.0) L Labs Reviewed?: Yes EKG Comment: Heart rate 58 normal sinus rhythm no STEMI or STEMI equivalent ED Course ED Course Orders Procedure Category Date Status Time 12 Lead Ekg Tracing- EKG 07/08/25 Complete Technical 07:31 Basic Metabolic Panel LAB 07/08/25 Complete 07:31 Cbc With Differential LAB 07/08/25 Complete 07:31 Hepatic Function Panel LAB 07/08/25 Complete 07:31 Troponin I High LAB 07/08/25 Complete Sensitivity 07:31 Chest 1vw RAD 07/08/25 Resulted 07:31 B-Type Natriuretic LAB 07/08/25 Complete Peptide 07:31 Ondansetron 4mg Inj PHA 07/08/25 Complete (Zofran 4mg Inj) 08:00 Ketorolac PHA 07/08/25 Complete Tromethamine 15mg/Ml 08:00 0.9% Nacl 500ml PHA 07/08/25 Complete Iv.Soln (Ns 500ml 08:00 Troponin I High LAB 07/08/25 Complete Sensitivity 10:11 Current Medications Medications (Trade) Dose Ordered Sig/Elmer Route PRN Reason Start Time Stop Time Status Last Admin Dose Admin Ketorolac Tromethamine (toRADol) 15 mg ONCE ONCE IV 07/08/25 08:00 07/08/25 08:01 DC 07/08/25 08:28 Ondansetron HCl (zoFRAN 4MG INJ) 4 mg ONCE ONCE IVP 07/08/25 08:00 07/08/25 08:01 DC 07/08/25 08:28 Sodium Chloride 500 ml @ 0 mls/hr ONCE ONCE IV 07/08/25 08:00 07/08/25 08:01 DC 07/08/25 08:27 Vital Signs Date Time Temp Pulse Resp B/P (MAP) Pulse Ox O2 Delivery O2 Flow Rate FiO2 07/08/25 07:22 98.1 80 17 153/80 98 Room Air 0 Medical Decision Making MDM MDM: Differential diagnosis: Rationale: Tests considered and ordered secondary to shared decision making include: Previous outside records reviewed: Old ER visits. Risk of complication and/or morbidity or mortality of patient management: None Medications-Per medication reconciliation Need for hospitalization: Patient does not meet criteria for hospitalization. Need for emergency major/minor surgery: No There are no social concerns with this patient. Prescription drug management Prescriptions will include symptomatic care Patient's prior external medical records from other ER visits were reviewed by me as indicated. Prior testing and results from previous visits were reviewed. Prior tests were taken into account with medical decision making and resource utilization, independent historian/historians were used to obtain complete medical history. I independently interpreted the test that were performed, results were reviewed by me and considered findings on radiology if ordered. Medical management and examination interpretation discussions were had by me with other qualified healthcare professionals as indicated for the patient's care. 60-year-old female with URI symptoms atypical chest pain negative workup heart score two stable for discharge prescriptions given. DX & DISP Disposition: Discharge Departure Impression: Primary Impression: Chest pain Additional Impression: Acute URI Condition: Stable Scripts Naproxen (Naproxen) 250 Mg Tablet 250 MG PO BID for 5 Days, #10 TAB Prov: ZORA OCHOA MD 07/08/25 Azithromycin (Azithromycin) 250 Mg Tablet 250 MG PO AD for cough for 5 Days, #6 TAB Prov: ZORA OCHOA MD 07/08/25 Referrals: SELF,REFERRAL (PCP) ZORA OCHOA MD Jul 08, 2025 10:54
[2025-07-08 11:05] VITALS: BP 147/79; PULSE 80; RESP 16; TEMP 98; O2SAT 98
== END 2025-07-08 11:12 | disposition home or self-care (01) ==
LOC: EDH 07:20
DX: R07.89 Other chest pain (principal); J06.9 Acute upper respiratory infection, unspecified; E11.9 Type 2 diabetes mellitus without complications; E66.9 Obesity, unspecified; E78.00 Pure hypercholesterolemia, unspecified; I10 Essential (primary) hypertension; Z79.02 Long term (current) use of antithrombotics/antiplatelets; Z79.4 Long term (current) use of insulin; Z79.82 Long term (current) use of aspirin; Z79.84 Long term (current) use of oral hypoglycemic drugs; Z79.899 Other long term (current) drug therapy; Z88.8 Allergy status to other drugs, medicaments and biological substances; Z90.49 Acquired absence of other specified parts of digestive tract
CPT/HCPCS: 99285; 96374; 71045; 96361; 96375; 80076; 84484 ×2; 80048; 83880; 85025; 36415; 93005; J1885; J7040; J2405

== ENCOUNTER → 2025-07-18 | Emergency (ER) | payer SELFPAY ==
[~2025-07-18] VITALS: Ht 170.2 cm; Wt 81.6 kg
[~2025-07-18] MED LIST changes: +AMOX1TAB16 PO; +AZIT250T9 PO; +FLUT16H NS; +LORA10TA7 PO; +NAPR-1196 PO
[2025-07-18] MEDS: 0.9% NACL 500ML IV.SOLN 500 ML IV ONE (06:26)
[2025-07-18 06:36] LABS: IMMATURE GRANULOCYTE ABSOLUTE 0.04 K/uL (0-1); NUCLEATED RED BLOOD CELLS 0.0 % (0.0-0.19); PLATELET COUNT (AUTO) 247 K/uL (130-400); RED BLOOD CELL COUNT(AUTO) 4.26 MIL/uL (4.00-5.50); RED CELL DISTRIBUTION WIDTH 11.9 % (11.0-15.5); WHITE BLOOD COUNT (AUTO) 7.3 K/uL (4.8-10.8)
[2025-07-18 06:56] LABS: CREATINE KINASE, TOTAL 34.0 U/L (21-232); CREATININE 0.6 mg/dL (0.5-1.0); GLOMERULAR FILTR. RATE CALC 104.0 mL/min (>90); GLUCOSE,RANDOM 270.0 mg/dL (70-105); SARS-CoV-2, RNA, NAAT NEGATIVE SARS CoV-2 (NEGATIVE); SODIUM SERUM 133.0 mmol/L (136-145); UREA NITROGEN, BLOOD 14.0 mg/dL (7-18)
[2025-07-18 07:03] LABS: INFLUENZA TYPE A Negative For Type A (NEGATIVE); INFLUENZA TYPE B Negative For Type B (NEGATIVE)
--- NOTE | 2025-07-18 07:20 | ERN ---
General Chief Complaint: Multiple Complaints Stated Complaint: GBW, DIZZINESS, SOB Time Seen by MD: 05:25 Source: patient History of Present Illness Initial Comments 60-year-old female coming coming in with multiple complaints. Per patient she has been having nausea vomiting dizziness generalized body weakness and diarrhea. She states that this has been ongoing for a couple of days. She states he has had something similar in the past and she was positive for COVID. Family members also state that they has been having these symptoms. Allergies: Coded Allergies: No Known Drug Allergies (Verified Allergy, Unknown, 05/04/22) lisinopril (Verified Allergy, Unknown, 05/04/22) Home Meds Active Scripts Naproxen (Naproxen) 250 Mg Tablet, 250 MG PO BID for 5 Days, #10 TAB Prov:ZORA OCHOA MD 07/08/25 Azithromycin (Azithromycin) 250 Mg Tablet, 250 MG PO AD for cough for 5 Days, #6 TAB Prov:ZORA OCHOA MD 07/08/25 Insulin Aspart (Novolog Flexpen) 100 Unit/Ml (3 Ml) Insuln.pen, 2 UNITS SQ TIDAC for 30 Days, #4 SYRINGE 2 Refills Prov:GEE MARTIN MD 04/23/25 Glyburide (Glyburide 2.5MG Tab) 2.5 Mg Tab, 1 TAB PO DAILY for 30 Days, #30 TAB 1 Refill Prov:GEE MARTIN MD 04/23/25 Metformin HCl (Metformin HCl) 850 Mg Tablet, 1 TAB PO BID for 30 Days, #60 TAB 2 Refills Prov:GEE MARTIN MD 04/23/25 Nitroglycerin (Nitroglycerin) 0.4 Mg Tab.subl, 1 TAB SL AD for chest pain, #25 TAB 1 Refill 1st sign of attack; may repeat every 5 mins; if pain persists after 3 in 15 min, medical attention is recommended Prov:GEE MARTIN MD 04/22/25 Pantoprazole Sodium (Protonix) 40 Mg Ectab, 1 TAB PO DAILY for 30 Days, #30 TAB 1 Refill Prov:GEE MARTIN MD 04/22/25 Metoprolol Tartrate (Lopressor) 25 Mg Tab, 25 MG PO BID for 30 Days, #60 TAB 1 Refill Prov:GEE MARTIN MD 04/22/25 Clopidogrel Bisulfate (Plavix) 75 Mg Tablet, 75 MG PO DAILY for 30 Days, #30 TAB 1 Refill Prov:GEE MARTIN MD 04/22/25 Atorvastatin Calcium (LIPITOR) 40 Mg Tablet, 40 MG PO HS for 30 Days, #30 TAB 1 Refill Prov:GEE MARTIN MD 04/22/25 Aspirin (ASPIRIN 81MG CHEW TAB) 81 Mg Tab.chew, 81 MG PO DAILY for 30 Days, #30 TAB.CHEW 1 Refill Prov:GEE MARTIN MD 04/22/25 Past Medical History Past Medical History: Diabetes-Type II, High Cholesterol, Hypertension, [place], TIA Medical History Other: COCAINE, PTSD, OBESE, BOWEL 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 Past Surgical History: Cholecystectomy, Other, Surgical History Other: HERNIA SX Family History Family History: Negative Social History Social History: Drugs, Lives with family Female( History) History: Not Applicable ROS Dictation CONSTITUTIONAL: No chills, no fever, weakness, no diaphoresis, malaise. HEAD/FACE: No signs of trauma. EENT: No eye pain, no blurred vision, no tearing, no double vision, no ear pain, no ear discharge, no nose pain, no nasal congestion, no throat pain, no throat swelling, no mouth pain. RESPIRATORY: No cough, no orthopnea, no SOB, no stridor, no wheezing. CARDIOVASCULAR: chest pain, no edema, no palpitations, no syncope. GASTROINTESTINAL/ABDOMINAL: No abdominal pain, no constipation, diarrhea, no nausea, no vomiting. GENITOURINARY: No abnormal discharge, no dysuria, no frequent urination, no hematuria. No complaints of pain in the genitals. MUSCULOSKELETAL: No back pain, no gout, no joint pain, no joint swelling, no muscle pain, no muscle stiffness, no neck pain. INTEGUMENTARY: No change in color, no change in hair/nails, no dryness, no lesion, no lumps, no rash. NEUROLOGICAL/PSYCH: No anxiety, not depressed, no emotional problem, no headache, no numbness, no pre-existing deficit, no history of seizures, no tremors, no weakness. HEMATOLOGIC/LYMPHATIC: Not anemic, no history of blood clots, no apparent bleeding, no bruising, glands not swollen. All Systems Negative, Except as Noted. Physical Exam Physical Exam Dictation VITAL SIGNS: Reviewed. GENERAL APPEARANCE: Alert, oriented x3, no acute distress, obese. HEAD AND FACE: Non-traumatic. EYES: PERRL, pink conjunctivas, eyelid no trauma, anterior chamber clear. EARS: Pinnas intact and no signs of trauma or erythema. Ear canals clear and no discharge. TMs erythema. NOSE: No discharge, no bleeding. Bilateral nasal turbinate swelling OROPHARYNX: Mouth normal, teeth no caries, tongue pink. Pharynx erythema. Tonsils no exudates, no abscesses noted. Mucous membrane moist. NECK: Supple, non-tender, no thyromegaly, no masses, no JVD, no bruits. BREAST: Deferred. CHEST: No tenderness, no crepitus, no paradoxical movement, no retractions. LUNGS: Clear, well-ventilated, symmetric, no rales, no wheezing, no rhonchi, no stridor, good breath sounds bilaterally. HEART: Regular rate, regular rhythm, no murmur, no gallops. VASCULAR: No peripheral edema. ABDOMEN: Soft, positive bowel sounds, nondistended, no guarding, nontender, no rebound, no masses no hepatomegaly, no splenomegaly, no Gil's sign, no hernias. RECTAL: Deferred. GENITAL: Deferred. NEUROLOGICAL: Normal speech, gross motor function intact, gross sensory function intact. MUSCULOSKELETAL: Neck nontender, full range of motion, back nontender, full range of motion. EXTREMITIES: Nontender, full range of motion. SKIN: Color pink, dry, no turgor, no rash, no lacerations, no abrasions, no contusions. LYMPHATICS: Deferred. Results Laboratory and Microbiology Lab and Micro Result Laboratory Tests Test 07/18/25 06:08 07/18/25 07:21 07/18/25 09:35 07/18/25 10:16 White Blood Count 7.3 K/uL (4.8-10.8) Red Blood Count 4.26 MIL/uL (4.00-5.50) Hemoglobin 13.1 g/dL (12.0-16.0) Hematocrit 36.9 % (36-48) Mean Corpuscular Volume 86.6 fL (79-99) Mean Corpuscular Hemoglobin 30.8 pg (27.0-33.0) Mean Corpuscular Hemoglobin Concent 35.5 g/dL (32.0-36.0) Red Cell Distribution Width 11.9 % (11.0-15.5) Platelet Count 247 K/uL (130-400) Mean Platelet Volume 11.2 fL (7.5-10.5) H Immature Granulocyte % (Auto) 0.6 % (0-1) Neutrophils (%) (Auto) 43.3 % (40.0-77.0) Lymphocytes (%) (Auto) 44.4 % (21.0-51.0) Monocytes (%) (Auto) 7.0 % (3.0-13.0) Eosinophils (%) (Auto) 4.3 % (0.0-8.0) Basophils (%) (Auto) 0.4 % (0.0-5.0) Neutrophils # (Auto) 3.2 K/uL (1.8-7.7) Lymphocytes # (Auto) 3.2 K/uL (1.0-4.8) Monocytes # (Auto) 0.5 K/uL (0.1-1.0) Eosinophils # (Auto) 0.31 K/uL (0.00-0.70) Basophils # (Auto) 0.03 K/uL (0.00-0.20) Absolute Immature Granulocyte (auto 0.04 K/uL (0-1) Nucleated Red Blood Cells 0.0 % (0.0-0.19) Sodium Level 133 mmol/L (136-145) L Potassium Level 3.8 mmol/L (3.5-5.1) Chloride Level 99 mmol/L (101-111) L Carbon Dioxide Level 27 mmol/L (21-32) Blood Urea Nitrogen 14 mg/dL (7-18) Creatinine 0.6 mg/dL (0.5-1.0) Glomerular Filtration Rate Calc 104 mL/min (>90) Random Glucose 270 mg/dL (70-105) H Total Calcium 8.7 mg/dL (8.5-10.1) Total Creatine Kinase 34 U/L (21-232) # Troponin I High Sensitivity 36.8 ng/L (4-50) 37 ng/L (4-50) Influenza Type A Antigen Negative For Type A Influenza Type B Antigen Negative For Type B SARS-CoV-2, RNA, NAAT NEGATIVE SARS CoV-2 Whole Blood Glucose 258 MG/DL (70-110) H Urine Color LIGHT-YELLOW (YELLOW) Urine Appearance CLEAR (CLEAR) Urine pH 6.5 (5.0-8.0) Urine Specific [place] 1.017 (1.001-1.031) Urine Protein NEGATIVE mg/dL (NEGATIVE) Urine Glucose (UA) NEGATIVE mg/dL (NEGATIVE) Urine Ketones NEGATIVE mg/dL (NEGATIVE) Urine Occult Blood NEGATIVE (NEGATIVE) Urine Nitrate NEGATIVE (NEGATIVE) Urine Bilirubin NEGATIVE mg/dL (NEGATIVE) Urine Urobilinogen 3 mg/dL (0.2-1.0) H Urine Leukocyte Esterase NEGATIVE [place]anda/uL Urine RBC 0-1 /HPF (0-1) Urine WBC 0-1 /HPF (0-1) Urine Squamous Epithelial Cells FEW /HPF (0-2) Urine Bacteria RARE /HPF (None Seen) Labs Reviewed?: Yes MDM MDM: Differential diagnosis: URI, COVID, flu, strep, UTI Rationale: Tests considered and ordered secondary to shared decision making include: Previous outside records reviewed: Old ER visits. Risk of complication and/or morbidity or mortality of patient management: None Medications-Per medication reconciliation Need for hospitalization: Patient does not meet criteria for hospitalization. Need for emergency major/minor surgery: No Patient is a 60-year-old female coming in with multiple complaints. Per patient she has been having weakness chest discomfort dehydration symptoms and cough as well as runny nose. On physical exam that has bilateral tympanic membrane ankit thema as well as oropharyngeal erythema consistent with sinusitis. Patient will be discharged in stable condition with a diagnosis of dehydration sinusitis. Medication will be brought him symptomatic relief I did advised her appropriate follow up with PCP for long-term management. ED Course Orders Procedure Category Date Status Time Cardiac Panel LAB 07/18/25 Complete 05:51 Cbc With Differential LAB 07/18/25 Complete 05:51 Basic Metabolic Panel LAB 07/18/25 Complete 05:51 Urinalysis Profile LAB 07/18/25 Complete 05:51 0.9% Nacl 500ml PHA 07/18/25 Complete Iv.Soln (Ns 500ml 06:00 Ondansetron 4mg Inj PHA 07/18/25 Complete (Zofran 4mg Inj) 06:00 Covid Rna Naat LAB 07/18/25 Complete 06:34 Influenza Type A & B, LAB 07/18/25 Complete Rapid 06:34 Troponin I High LAB 07/18/25 Complete Sensitivity 08:39 Current Medications Medications (Trade) Dose Ordered Sig/Elmer Route PRN Reason Start Time Stop Time Status Last Admin Dose Admin Ondansetron HCl (zoFRAN 4MG INJ) 4 mg ONCE ONCE IVP 07/18/25 06:00 07/18/25 06:01 DC 07/18/25 06:26 Sodium Chloride 500 ml @ 0 mls/hr ONCE ONCE IV 07/18/25 06:00 07/18/25 06:01 DC 07/18/25 06:26 Vital Signs Date Time Temp Pulse Resp B/P (MAP) Pulse Ox O2 Delivery O2 Flow Rate FiO2 07/18/25 10:41 78 14 117/69 98 Room Air* 0 21 07/18/25 08:11 98.1 77 15 133/74 97 Room Air* 0 21 07/18/25 06:30 79 14 133/78 98 Room Air* 0 21 07/18/25 05:34 97.9 95 20 136/92 96 Room Air DX & DISP Disposition: Discharge Departure Impression: Primary Impression: Dehydration Additional Impression: Sinusitis Condition: Stable Scripts Loratadine (Loratadine) 10 Mg Tablet 1 TAB PO DAILY for allergy symptoms for 30 Days, #30 TAB 0 Refills Prov: RENEE OROSCO MD 07/18/25 Fluticasone Propionate (Flonase Nasal [place]) 50 Mcg/Actuation [place] 2 SPRAY NS DAILY, #16 GM 0 Refills Prov: RENEE OROSCO MD 07/18/25 Amoxicillin/Potassium Clav (Amox Tr-K Clv 875-125 mg Tab) 875 Mg-125 Mg Tablet 1 TAB PO BID for 10 Days, #20 TAB 0 Refills Prov: RENEE OROSCO MD 07/18/25 Additional Instructions: FOLLOW-UP WITH PRIMARY CARE PROVIDER IN 1 TO 2 DAYS. TAKE MEDICATIONS DIRECT ED HERE IN THE EMERGENCY ROOM. OKAY TO CONTINUE HOME MEDICATIONS UNLESS OTHERWISE DISCUSSED DURING YOUR VISIT IN THE EMERGENCY ROOM TODAY. RETURN TO YOUR NEAREST EMERGENCY ROOM IF SYMPTOMS WORSEN OR IF THERE IS NO IMPROVEMENT. CALL 911 IF YOU NEED IMMEDIATE ASSISTANCE. TAKE TYLENOL [id number] NEEDED AND IF NO CONTRAINDICATIONS ARE PRESENT. INCREASE ORAL HYDRATION. A WOUND CULTURE OR URINE CULTURE WAS ORDERED HERE IN THE EMERGENCY ROOM DEPARTMENT PLEASE FOLLOW-UP WITH PRIMARY CARE PROVIDER AND ADVISE THEM TO GET REPORTS FROM OUR FACILITY. IF YOU HAD ANY SERGE WRAP/SPLINTS THAT WERE APPLIED HERE, PLEASE DO NOT REMOVE THEM UNTIL YOU SEE YOUR PRIMARY CARE OR SPECIALTY. Referrals: Referrals: SELF,REFERRAL (PCP) RONNELL RAMOS MD Time of Disposition: 11:01 RENEE OROSCO MD Jul 18, 2025 07:20
[2025-07-18 08:11] VITALS: TEMP 98
[2025-07-18 10:41] VITALS: BP 117/69; PULSE 78; RESP 14; O2SAT 98
[2025-07-18 10:46] LABS: APPEARANCE,URINE CLEAR (CLEAR); GLUCOSE, URINE (UA) NEGATIVE (NEGATIVE); LEUKOCYTE ESTERASE ,URINE NEGATIVE Leu/uL (NEGATIVE); NITRATE,URINE NEGATIVE (NEGATIVE); OCCULT BLOOD,URINE NEGATIVE (NEGATIVE)
[2025-07-18 10:47] LABS: ADD UA MICROSCOPIC YES
[2025-07-18 10:49] LABS: SQUAMOUS EPITHELIAL CELL,UR FEW /HPF (0-2)
== END ==
LOC: EDH 05:33
DX: E86.0 Dehydration (principal); J32.9 Chronic sinusitis, unspecified; E11.9 Type 2 diabetes mellitus without complications; E66.9 Obesity, unspecified; E78.00 Pure hypercholesterolemia, unspecified; I10 Essential (primary) hypertension; I25.2 Old myocardial infarction; Z79.02 Long term (current) use of antithrombotics/antiplatelets; Z79.4 Long term (current) use of insulin; Z79.82 Long term (current) use of aspirin; Z79.84 Long term (current) use of oral hypoglycemic drugs; Z79.899 Other long term (current) drug therapy; Z86.16 Personal history of COVID-19; Z86.73 Personal history of transient ischemic attack (TIA), and cerebral infarction without residual deficits; Z88.8 Allergy status to other drugs, medicaments and biological substances; Z90.49 Acquired absence of other specified parts of digestive tract; Z20.822 Contact with and (suspected) exposure to COVID-19
CPT/HCPCS: 99284; 96374; 87635; 82550; 84484 ×2; 80048; 85025; 87804 ×2; 82948; 81001; 36415; J7040; J2405

== ENCOUNTER 2025-08-13 14:20 | Inpatient (IN) | payer SELFPAY ==
[~2025-08-13] VITALS: Ht 167.6 cm; Wt 90.3 kg
[2025-08-13] VITALS (20 sets, daily range): BP systolic 107–168; BP diastolic 53–92; PULSE 40–71; RESP 15–33; TEMP 98.6; O2SAT 93
--- NOTE | 2025-08-13 14:42 | EKG ---
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
[2025-08-13 14:59] LABS: IMMATURE GRANULOCYTE ABSOLUTE 0.13 K/uL (0-1); NUCLEATED RED BLOOD CELLS 0.0 % (0.0-0.19); PLATELET COUNT (AUTO) 209 K/uL (130-400); RED BLOOD CELL COUNT(AUTO) 4.03 MIL/uL (4.00-5.50); RED CELL DISTRIBUTION WIDTH 11.9 % (11.0-15.5); WHITE BLOOD COUNT (AUTO) 12.2 K/uL (4.8-10.8)
[2025-08-13] MEDS: 0.9% NACL 500ML IV.SOLN 500 ML IV ONE (15:00)
[2025-08-13 15:12] LABS: ASPARTATE AMINOTRANSFERASE 86.0 U/L (10-37); CREATININE 1.0 mg/dL (0.5-1.0); GLOMERULAR FILTR. RATE CALC 65.0 mL/min (>90); SODIUM SERUM 133.0 mmol/L (136-145); TOTAL PROTEIN, SERUM 7.3 g/dL (6.0-8.3); UREA NITROGEN, BLOOD 21.0 mg/dL (7-18)
[2025-08-13 15:15] LABS: GLUCOSE,RANDOM 403.0 mg/dL (70-105)
[2025-08-13] MEDS ORDERED: NOREPINEPHRIN 4MG/NS 250ML 250 ML IV SCH (15:30)
--- NOTE | 2025-08-13 16:08 | CONS ---
[facility] CARDIOLOGY CONSULTATION NOTE Date Patient Seen: Aug 13, 2025 Time of Visit: 15:59 Requesting Physician: ED Reason for Consultation: NSTEMI, CHB History of Present Illness: Patient is a 60-year-old female with past medical history of type 2 diabetes mellitus, hypertension, CVA in 2008, cocaine use, ongoing tobacco use, anxiety, history of suicidal ideation and coronary artery disease. Patient was admitted to this facility in April of 2025 with gastrointestinal complaints, found to have elevated troponin up to peak 3000. Transthoracic echocardiogram showed normal left ventricular systolic function with EF 50%. Coronary CT angiography revealed 70% stenosis of the proximal and mid left anterior descending artery, left circumflex artery, and proximal OM1 stenosis. Noncritical disease in the RCA.. Patient's last cocaine use was 2 days prior. She presented to the emergency department with acute onset severe substernal chest pain which began this morning with the associated shortness of breath. High sensitivity troponin 81083. Creatinine normal at 1.0 glucose 403 with an A1c of 11.2% in April. Patient with evidence of early cardiogenic shock with a blood pressure of 75/32 with a pulse rate 40 with a EKG showing complete heart block. Cardiology has been consulted for additional recommendations. Past Medical History: CAD T2DM HTN CVA in 2008 gastritis anxiety/depression, with history of suicidal ideations tobacco user Past Surgical History: denies Family History: noncontributory Social History: lives with her son, independent with ADLs, there is habitual cocaine use and tobacco use. prior suicidal ideations, however she reports anxiety/depression currently however no suicidal ideations Current Meds: Current Medications Medications Dose Ordered Sig/Elmer Start Time Stop Time Status Last Admin Heparin Sodium (Porcine) *calculation based on ACTUAL B... AD PRN 08/13/25 16:30 09/12/25 16:29 Heparin Sodium/ Dextrose 250 ml @ 0 mls/hr Q6H 08/13/25 16:30 09/12/25 16:29 Norepinephrine 250 ml @ 0 mls/hr PROTOCOL 08/13/25 15:30 09/12/25 15:29 Ticagrelor 180 mg ONCE ONCE 08/13/25 16:00 08/13/25 16:01 Morphine Sulfate 1 mg ONCE ONCE 08/13/25 16:00 08/13/25 16:01 Dopamine HCl/ Dextrose 250 ml @ 0 mls/hr PROTOCOL 08/13/25 16:00 09/12/25 15:59 Aspirin 325 mg ONCE ONCE 08/13/25 16:00 08/13/25 16:01 Review of Systems: CONST: [No fever, fatigue, or weight changes.] EYES: [No recent vision problems.] ENT: [No congestion, ear pain, or sore throat.] C/V: [+chest pain, No palpitations, or edema.] RESP: [No cough, congestion, wheezing. +shortness of breath.] GI: [No abdominal pain, nausea, vomiting, constipation, or diarrhea.] : [No incontinence or dysuria.] SKIN: [No rash.] NEURO: [No headache, focal numbness or weakness, dizziness, or seizures.] PSYCH: [+depression or anxiety.] HEME: [No abnormal bruising or bleeding.] Physical Examination: GENERAL: [patient appears unwell, tearful and complaining of chest pain, appears uncomfortable HEAD: [Normal with no signs of head trauma.] EYES: [PERRLA, EOMI, conjunctiva and sclera normal.] ENT: [Hearing grossly intact.] NECK: [Supple. There is no tenderness, Normal carotid upstrokes without bruits.] LUNGS: [Clear breath sounds bilaterally. no tachypnea. no distress.. No wheezes, or rhonchi.] HEART: [bradycardia. complete heart block on monitor. Normal S1 and S2 without murmurs, gallop or rub.] VASC: [Peripheral pulses +2 bilaterally. distal extremities are warm] ABD: [soft, nontender.] EXT: [No clubbing, cyanosis or edema.] SKIN: [No rashes or lesions noted. warm, dry. no cyanosis of extremities.] NEURO: [Awake, alert, and oriented x3. No focal sensory or strength deficits noted.] Vital Signs (last 8hr) Date Time Temp Pulse Resp B/P (MAP) Pulse Ox O2 Delivery O2 Flow Rate FiO2 08/13/25 15:11 99.1 42 20 75/32 98 Room Air* 0 21 08/13/25 14:21 99.5 40 15 80/60 97 Room Air 0 Laboratory: [ ] Hematology Labs: Test 08/13/25 14:48 Range/Units White Blood Count 12.2 H 4.8-10.8 K/uL Red Blood Count 4.03 4.00-5.50 MIL/uL Hemoglobin 12.4 12.0-16.0 g/dL Hematocrit 35.9 L 36-48 % Mean Corpuscular Volume 89.1 79-99 fL Mean Corpuscular Hemoglobin 30.8 27.0-33.0 pg Mean Corpuscular Hemoglobin Concent 34.5 32.0-36.0 g/dL Red Cell Distribution Width 11.9 11.0-15.5 % Platelet Count 209 130-400 K/uL Mean Platelet Volume 11.4 H 7.5-10.5 fL Immature Granulocyte % (Auto) 1.1 H 0-1 % Neutrophils (%) (Auto) 69.7 40.0-77.0 % Lymphocytes (%) (Auto) 21.0 21.0-51.0 % Monocytes (%) (Auto) 7.2 3.0-13.0 % Eosinophils (%) (Auto) 0.8 0.0-8.0 % Basophils (%) (Auto) 0.2 0.0-5.0 % Neutrophils # (Auto) 8.5 H 1.8-7.7 K/uL Lymphocytes # (Auto) 2.6 1.0-4.8 K/uL Monocytes # (Auto) 0.9 0.1-1.0 K/uL Eosinophils # (Auto) 0.10 0.00-0.70 K/uL Basophils # (Auto) 0.03 0.00-0.20 K/uL Absolute Immature Granulocyte (auto 0.13 0-1 K/uL Nucleated Red Blood Cells 0.0 0.0-0.19 % Chemistry Labs: Test 08/13/25 14:48 Range/Units Sodium Level 133 L 136-145 mmol/L Potassium Level 4.8 3.5-5.1 mmol/L Chloride Level 99 L 101-111 mmol/L Carbon Dioxide Level 25 21-32 mmol/L Blood Urea Nitrogen 21 H 7-18 mg/dL Creatinine 1.0 0.5-1.0 mg/dL Glomerular Filtration Rate Calc 65 >90 mL/min Random Glucose 403 *H 70-105 mg/dL Total Calcium 8.6 8.5-10.1 mg/dL Total Bilirubin 0.4 0.2-1.0 mg/dL Direct Bilirubin 0.1 0.0-0.3 mg/dL Aspartate Amino Transf (AST/SGOT) 86 H 10-37 U/L Alanine Aminotransferase (ALT/SGPT) 28 12-78 U/L Alkaline Phosphatase 91 50-136 U/L Troponin I High Sensitivity 74190 *H 4-50 ng/L B-Type Natriuretic Peptide 211 H 0-100 pg/mL Total Protein 7.3 6.0-8.3 g/dL Albumin 2.6 L 3.5-5.0 g/dL Lipase 31 16-77 U/L Coagulation Labs: Test 08/13/25 14:48 Range/Units Activated Partial Thromboplast Time 26.9 26.3-35.5 SEC Diagnostics / Radiology: [Copy/Paste Echos/Imaging Report here] Assessment: Non ST-elevation [place] Cardiogenic shock stage C Complete heart block Cocaine use Type 2 diabetes mellitus, uncontrolled with hyperglycemia History of noncompliance Ongoing tobacco use Anxiety disorder with a history of suicidal ideations CVA in 2008 Plan: Patient presenting with non ST-elevation [place], cardiogenic shock, complete heart block. While I am concerned regarding her noncompliance, she is clearly unstable. I spoke with the patient and her son, Jorge Luis, and I am recommending left heart catheterization, coronary angiography, likely mechanical circulatory support placement and temporary pacemaker placement. In the interim, she will be loaded with aspirin, ticagrelor, and started on heparin drip Dopamine drip will be started Nitroglycerin will be avoided due to her bradycardia Cardiac wharf labourer has been paged and we are awaiting their arrival to proceed CHANDRIKA ELAINE DO Aug 13, 2025 16:08
[2025-08-13] MEDS ORDERED: NITROGLYCERIN 50MG VIAL ONE (16:12)
[2025-08-13] MEDS ORDERED: LIDOCAINE HCL 400MG/20ML VIAL ONE (16:12)
[2025-08-13] MEDS ORDERED: HEParin-NS 1,000 UNIT/500 ML 1,000 ML IV ONE (16:12)
[2025-08-13] MEDS ORDERED: IOHEXOL 350 MG/ML 100ML INFUS..BTL IV ONE (16:12)
[2025-08-13] MEDS: ASPIRIN 325MG TAB PO ONE (16:15)
[2025-08-13] MEDS: ASPIRIN 325MG TAB ONE (16:15)
[2025-08-13] MEDS ORDERED: MIDAZOLAM HCL 1 MG/ML 2ML VIAL ONE (16:27)
[2025-08-13] MEDS ORDERED: PoTASSium chl 10% ELIXIR 20MEQ 20 MEQ/15 ML UDCUP PO PRN (16:30)
--- NOTE | 2025-08-13 16:33 | HMCIMG ---
EXAM: CR Chest, 1 View. CLINICAL HISTORY: cp COMPARISON: 07/08/25 FINDINGS: LUNGS: The lungs show no infiltrate or other acute finding. PLEURAL SPACES: No pleural effusion or pneumothorax. MEDIASTINUM: The cardiomediastinal silhouette is within normal limits. BONES: No aggressive appearing osseous lesion seen. IMPRESSION: No acute cardiopulmonary pathology is evident. /[address]
--- NOTE | 2025-08-13 17:09 | ERN ---
ED Note History of Present Illness Stated Complaint: CARDIOGENIC SHOCK,COMPLETE HEART BLOCK,NSTEMI Chief Complaint: Multiple Complaints Time Seen by MD: 14:25 Dictation: 60-year-old female presenting to the emergency department with generalized weakness and low heart rate was transported by EMS with multiple complaints including nausea and not feeling well. Patient denies chest pain Allergies: Coded Allergies: No Known Drug Allergies (Verified Allergy, Unknown, 05/04/22) lisinopril (Verified Allergy, Unknown, 05/04/22) Home Meds Active Scripts Loratadine (Loratadine) 10 Mg Tablet, 1 TAB PO DAILY for allergy symptoms for 30 Days, #30 TAB 0 Refills Prov:RENEE OROSCO MD 07/18/25 Fluticasone Propionate (Flonase Nasal [place]) 50 Mcg/Actuation [place], 2 SPRAY NS DAILY, #16 GM 0 Refills Prov:RENEE OROSCO MD 07/18/25 Amoxicillin/Potassium Clav (Amox Tr-K Clv 875-125 mg Tab) 875 Mg-125 Mg Tablet, 1 TAB PO BID for 10 Days, #20 TAB 0 Refills Prov:RENEE OROSCO MD 07/18/25 Naproxen (Naproxen) 250 Mg Tablet, 250 MG PO BID for 5 Days, #10 TAB Prov:ZORA OCHOA MD 07/08/25 Azithromycin (Azithromycin) 250 Mg Tablet, 250 MG PO AD for cough for 5 Days, #6 TAB Prov:ZORA OCHOA MD 07/08/25 Insulin Aspart (Novolog Flexpen) 100 Unit/Ml (3 Ml) Insuln.pen, 2 UNITS SQ TIDAC for 30 Days, #4 SYRINGE 2 Refills Prov:GEE MARTIN MD 04/23/25 Glyburide (Glyburide 2.5MG Tab) 2.5 Mg Tab, 1 TAB PO DAILY for 30 Days, #30 TAB 1 Refill Prov:GEE MARTIN MD 04/23/25 Metformin HCl (Metformin HCl) 850 Mg Tablet, 1 TAB PO BID for 30 Days, #60 TAB 2 Refills Prov:GEE MARTIN MD 04/23/25 Nitroglycerin (Nitroglycerin) 0.4 Mg Tab.subl, 1 TAB SL AD for chest pain, #25 TAB 1 Refill 1st sign of attack; may repeat every 5 mins; if pain persists after 3 in 15 min, medical attention is recommended Prov:GEE MARTIN MD 04/22/25 Pantoprazole Sodium (Protonix) 40 Mg Ectab, 1 TAB PO DAILY for 30 Days, #30 TAB 1 Refill Prov:GEE MARTIN MD 04/22/25 Metoprolol Tartrate (Lopressor) 25 Mg Tab, 25 MG PO BID for 30 Days, #60 TAB 1 Refill Prov:GEE MARTIN MD 04/22/25 Clopidogrel Bisulfate (Plavix) 75 Mg Tablet, 75 MG PO DAILY for 30 Days, #30 TAB 1 Refill Prov:GEE MARTIN MD 04/22/25 Atorvastatin Calcium (LIPITOR) 40 Mg Tablet, 40 MG PO HS for 30 Days, #30 TAB 1 Refill Prov:GEE MARTIN MD 04/22/25 Aspirin (ASPIRIN 81MG CHEW TAB) 81 Mg Tab.chew, 81 MG PO DAILY for 30 Days, #30 TAB.CHEW 1 Refill Prov:GEE MARTIN MD 04/22/25 Past Medical History Past Medical History: Anxiety, Diabetes-Type II, Hypertension Additional Past Medical Hx: COCAINE, PTSD, OBESE, 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 Surgical History: Surgical History Other: HERNIA SX Family History: Negative Social History: Drugs, Lives with family History: Not Applicable Review of System Dictation Constitutional: Negative for fever,chills, and weight loss Eyes: Negative for injury, pain,redness, and discharge ENT: Negative for injury,pain or swelling Cardiovascular: Negative for chest pain, palpitations, and edema Respiratory: Negative for shortness of breath, cough, and wheezing, Abdomen/GI: Per HPI Back: Negative for injury and pain : Negative for injury, bleeding and discharge MS/Extremity: Negative for injury and deformity Skin: Negative for rash, and discoloration Neuro: Per HPI Initial Vital Sign VS Vital Signs Date Time Temp Pulse Resp B/P (MAP) Pulse Ox O2 Delivery O2 Flow Rate FiO2 08/13/25 14:21 99.5 40 15 80/60 97 Room Air 0 08/13/25 15:11 21 Physical Exam Dictation General: awake, alert, appears ill Head/Face: Normocephalic, atraumatic Eyes: PERRL, EOMI, vision at baseline ENT: oral cavity clear, TMs clear, no signs of infection Neck: Trachea midline, supple, no nuchal rigidity Cardiovascular: Bradycardic normal S1/S2, No MRGs, no JVD Respiratory: CTAB, no respiratory distress, No rales or wheezes Abdomen: Soft, non-tender, non-distended, normal bowel sounds, no guarding or rebound. Skin: Warm, dry, normal turgor, no rash MS/Extremity: Pulses equal, no cyanosis, neurovascular intact, FROM Neuro: COAx4, GCS 15, strength 5/5, CN 2-12 intact Results (Laboratory/Radiology) Laboratory/Radiology Laboratory Tests Test 08/13/25 14:48 08/13/25 16:31 White Blood Count 12.2 K/uL (4.8-10.8) H Red Blood Count 4.03 MIL/uL (4.00-5.50) Hemoglobin 12.4 g/dL (12.0-16.0) Hematocrit 35.9 % (36-48) L Mean Corpuscular Volume 89.1 fL (79-99) Mean Corpuscular Hemoglobin 30.8 pg (27.0-33.0) Mean Corpuscular Hemoglobin Concent 34.5 g/dL (32.0-36.0) Red Cell Distribution Width 11.9 % (11.0-15.5) Platelet Count 209 K/uL (130-400) Mean Platelet Volume 11.4 fL (7.5-10.5) H Immature Granulocyte % (Auto) 1.1 % (0-1) H Neutrophils (%) (Auto) 69.7 % (40.0-77.0) Lymphocytes (%) (Auto) 21.0 % (21.0-51.0) Monocytes (%) (Auto) 7.2 % (3.0-13.0) Eosinophils (%) (Auto) 0.8 % (0.0-8.0) Basophils (%) (Auto) 0.2 % (0.0-5.0) Neutrophils # (Auto) 8.5 K/uL (1.8-7.7) H Lymphocytes # (Auto) 2.6 K/uL (1.0-4.8) Monocytes # (Auto) 0.9 K/uL (0.1-1.0) Eosinophils # (Auto) 0.10 K/uL (0.00-0.70) Basophils # (Auto) 0.03 K/uL (0.00-0.20) Absolute Immature Granulocyte (auto 0.13 K/uL (0-1) Nucleated Red Blood Cells 0.0 % (0.0-0.19) Activated Partial Thromboplast Time 26.9 SEC (26.3-35.5) Sodium Level 133 mmol/L (136-145) L Potassium Level 4.8 mmol/L (3.5-5.1) Chloride Level 99 mmol/L (101-111) L Carbon Dioxide Level 25 mmol/L (21-32) Blood Urea Nitrogen 21 mg/dL (7-18) H Creatinine 1.0 mg/dL (0.5-1.0) Glomerular Filtration Rate Calc 65 mL/min (>90) Random Glucose 403 mg/dL (70-105) *H Total Calcium 8.6 mg/dL (8.5-10.1) Total Bilirubin 0.4 mg/dL (0.2-1.0) Direct Bilirubin 0.1 mg/dL (0.0-0.3) Aspartate Amino Transf (AST/SGOT) 86 U/L (10-37) H Alanine Aminotransferase (ALT/SGPT) 28 U/L (12-78) Alkaline Phosphatase 91 U/L (50-136) Troponin I High Sensitivity 84776 ng/L (4-50) *H B-Type Natriuretic Peptide 211 pg/mL (0-100) H Total Protein 7.3 g/dL (6.0-8.3) Albumin 2.6 g/dL (3.5-5.0) L Lipase 31 U/L (16-77) Hemoglobin A1c 10.7 % (4.0-6.0) H Estimated Average Glucose (eAG) 260 mg/dL (70-126) H Whole Blood Ketones Quantitative 0.2 mmol/L (0.0-0.6) Magnesium Level 1.80 mg/dL (1.80-2.40) C-Reactive Protein, Quantitative 88.60 mg/L (0.5-3.0) H Labs Reviewed?: Yes EKG Comment: Heart rate 42, av block, no STEMI or STEMI equivalent ED Course ED Course Orders Procedure Category Date Status Time 12 Lead Ekg Tracing- EKG 08/13/25 Resulted Technical 14:25 Basic Metabolic Panel LAB 08/13/25 Complete 14:25 Cbc With Differential LAB 08/13/25 Complete 14:25 Hepatic Function Panel LAB 08/13/25 Complete 14:25 Lipase LAB 08/13/25 Complete 14:25 Troponin I High LAB 08/13/25 Complete Sensitivity 14:25 Chest 1vw RAD 08/13/25 Resulted 14:25 Ondansetron 4mg Inj PHA 08/13/25 Complete (Zofran 4mg Inj) 14:30 0.9% Nacl 500ml PHA 08/13/25 Complete Iv.Soln (Ns 500ml 14:30 B-Type Natriuretic LAB 08/13/25 Complete Peptide 14:52 Bedside Glucose CPOE 08/13/25 Transmitted Fingerstick 15:13 Initiate Heparin JUDI 08/13/25 In Process Treatment Pro 15:24 Partial LAB 08/13/25 Complete Thromboplastin Time 15:24 Heparin 5,000 Unit PHA 08/13/25 In Process Vial (Heparin 5,000 U 16:30 Heparin 25,000 PHA 08/13/25 In Process Units/250ml D5w 16:30 Heparin Protocol CPOE 08/13/25 Transmitted Monitoring 15:24 Norepinephrin 4mg/Ns PHA 08/13/25 In Process 250ml (Levophed 4mg 15:30 Dopamine Hcl 400 PHA 08/13/25 Complete Mg/D5%-Water (Intropin 15:33 Aspirin 325mg Tab PHA 08/13/25 Complete (Aspirin 325mg Tab) 15:34 Ticagrelor (Brilinta) PHA 08/13/25 Complete 16:00 Ticagrelor (Brilinta) PHA 08/13/25 Complete 15:50 Morphine 4mg Syg PHA 08/13/25 Complete (Morphine 4mg Syg) 16:00 Dopamine Hcl 400 PHA 08/13/25 In Process Mg/D5%-Water (Intropin 16:00 Aspirin 325mg Tab PHA 08/13/25 Complete (Aspirin 325mg Tab) 16:00 Lidocaine Hcl PHA 08/13/25 Complete 400mg/20ml (Lidocaine 16:12 Iohexol (Omnipaque) PHA 08/13/25 Complete 16:12 Heparin 10,000 PHA 08/13/25 Complete Unit/10ml (Heparin 16:12 Nicardipine 25mg Inj PHA 08/13/25 Complete (Cardene 25mg Inj) 16:12 Heparin-Ns 1,000 PHA 08/13/25 Complete Unit/500 Ml 16:12 Nitroglycerin 50mg PHA 08/13/25 Complete Vial (Tridil 50mg/10m 16:12 Release And Technical Records Clerk Procedure CATH 08/13/25 Logged Request 16:20 Critcal Care Consult CONPHYSVC 08/13/25 Transmitted 16:13 Blood Cult NYDIA 08/13/25 In Process 16:22 Lactic Acid LAB 08/13/25 In Process 16:22 Crp Quantitative LAB 08/13/25 In Process 16:22 Procalcitonin LAB 08/13/25 In Process 16:22 Hemoglobin A1c LAB 08/13/25 Complete 16:22 Venous Blood Gas + RT 08/13/25 Transmitted 16:23 Type And Screen BBK 08/13/25 Logged 16:23 Pantoprazole 40mg Inj PHA 08/13/25 In Process (Protonix 40mg Inj 16:30 Admit Orders ADM 08/13/25 Transmitted 16:23 Fall Precautions CPOE 08/13/25 Transmitted 16:23 Aspiration Precautions CPOE 08/13/25 Transmitted 16:23 Elevate Hob At 30 CPOE 08/13/25 Transmitted Degrees 16:23 Telemetry Monitoring CPOE 08/13/25 Transmitted 16:23 Magnesium LAB 08/13/25 Complete 16:23 Initiate JUDI 08/13/25 In Process Hyperglycemia Protoco 16:25 Insulin Regular, PHA 08/13/25 In Process Human 3ml (Humulin R 16:30 Insulin Regular, PHA 08/13/25 Complete Human 3ml (Humulin R 16:30 Fentanyl Citrate Pf PHA 08/13/25 Complete 0.05 Mg/Ml (Fentanyl 16:26 Midazolam Hcl (Versed) PHA 08/13/25 Complete 16:27 Acetaminophen 325 Tab PHA 08/13/25 In Process (Tylenol 325mg Tab 16:30 Ondansetron 4mg Inj PHA 08/13/25 In Process (Zofran 4mg Inj) 16:30 Initiate Po JUDI 08/13/25 In Process Hypokalemia Protoc 16:26 Potassium Chloride PHA 08/13/25 In Process 20meq/100ml ([place] 16:30 Potassium Chl 10% PHA 08/13/25 In Process Elixir 20meq (Kcl 10% 16:30 Potassium Chloride PHA 10/9/25 In Process 20meq Er (K-Dur/Klor- 16:30 Notify Physician If CPOE 08/13/25 Transmitted There Is 16:26 Notify Md On The Next CPOE 08/13/25 Transmitted 16:26 Notify Md On The CPOE 08/13/25 Transmitted Next(Cont.) 16:26 Magnesium 2gm Premix PHA 08/13/25 In Process 50ml (Magnesium 2gm 16:30 Echo 2-D Complete ECHO 08/13/25 Logged 16:28 Ketone Blood LAB 08/13/25 Complete Quantitative 16:28 H&H Prn For Bleeding CPOE 08/13/25 Transmitted 16:29 Cardiology Consult CONPHYSVC 08/13/25 Transmitted 16:29 Cbc With Differential LAB 08/14/25 Verified 04:00 Comprehensive LAB 08/14/25 Verified Metabolic Panel 04:00 Magnesium LAB 08/14/25 Verified 04:00 Pulse Ox(Continuous) RT 08/13/25 Transmitted 16:39 Atorvastatin 40mg PHA 08/13/25 In Process (Lipitor 40mg) 21:00 Strict I&O CPOE 08/13/25 Transmitted 16:42 Daily Weights CPOE 08/13/25 Transmitted 16:42 Endocrinology Consult CONPHYSVC 08/13/25 Transmitted 16:42 Vital Signs Date Time Temp Pulse Resp B/P (MAP) Pulse Ox O2 Delivery O2 Flow Rate FiO2 08/13/25 16:35 68 20 135/43 99 Nasal Cannula* 2 28 08/13/25 16:22 74/63 08/13/25 15:11 99.1 42 20 75/32 98 Room Air* 0 21 08/13/25 14:21 99.5 40 15 80/60 97 Room Air 0 Medical Decision Making MDM MDM: Differential diagnosis: Rationale: Tests considered and ordered secondary to shared decision making include: labs, ECG and radiology Previous outside records reviewed: Old ER visits. Risk of complication and/or morbidity or mortality of patient management: None Medications-Per medication reconciliation Need for hospitalization: Patient does meet criteria for hospitalization. Need for emergency major/minor surgery: No There are no social concerns with this patient. Prescription drug management Prescriptions will include symptomatic care Patient's prior external medical records from other ER visits were reviewed by me as indicated. Prior testing and results from previous visits were reviewed. Prior tests were taken into account with medical decision making and resource utilization, independent historian/historians were used to obtain complete medical history. I independently interpreted the test that were performed, results were reviewed by me and considered findings on radiology if ordered. Medical management and examination interpretation discussions were had by me with other qualified healthcare professionals as indicated for the patient's care. 60-year-old female with NSTEMI and av heart block hemodynamically patient was hypotensive on arrival started on IV fluids and then dopamine, cardiology saw and evaluated patient at bedside agrees with intervention we will take to clinical lab specialist for left heart catheterization and possible intervention admitting to ICU Critical Care Note Comment(s) Total critical care time was 33 minutes. Excluding time for procedures. Management of critically ill patient with concern for acute decompensation. Management included interpretation of laboratory values and imaging, hemodynamics, time for consultation with consultants and admitting physician. DX & DISP Disposition: Inpatient Departure Impression: Primary Impression: NSTEMI (non-ST elevated myocardial infarction) Additional Impression: AV block, 3rd degree Condition: Stable Referrals: SELF,REFERRAL (PCP) ZORA OCHOA MD Aug 13, 2025 17:09
[2025-08-13] MEDS ORDERED: HEParin-NS 1,000 UNIT/500 ML 500 ML IV ONE (17:14)
--- NOTE | 2025-08-13 17:39 | HP ---
[facility] PHYS[facility] Date of Service: Aug 13, 2025 Time of Service: 17:28 HISTORY OF PRESENT ILLNESS: Date of service: 10/13/2025, patient was seen in ER room 16, patient is critically ill This is a 60-year-old female with underlying history of obesity, coronary artery disease, poorly controlled type 2 diabetes mellitus, history of anemia, history of cocaine use, tobacco use disorder, history of CVA in 2008, who presented to the ER for further evaluation of severe substernal chest pain and shortness of breadth. Patient reports having history of cocaine use with last use of cocaine yesterday. She reports having severe substernal chest pain that started today in it has been associated with dizziness, and generalized malaise. Pain is 10/10 in severity. Patient denies any syncope or fall. She has been having lightheadedness with ambulation. She has not been able to follow up with Cardiology as outpatient. She has a previous history of abnormal CT coronary angiography when she was hospitalized in 04/2025 and she was treated medically. With regards to type 2 diabetes mellitus, she reports being on metformin as outpatient. On presentation to the hospital, patient was noted to be hypotensive with blood pressure of 80/60 with heart rate of 40 with EKG showing complete heart block. [place] [address], hemoglobin 12.4, platelet count of 446404. BMP showed sodium of 133, potassium 4.8, chloride of 99, BUN of 21, creatinine 1.0, blood glucose of 403, [place] [address]. Chest x-ray showed no acute infiltrates. Patient will be admitted for further management of cardiogenic shock, NSTEMI, complete heart block with history of poorly controlled type 2 diabetes mellitus. Patient will be emergently taken to the lab scientist for cardiac catheterization/ PCI and tentative plan for MCS support. Patient will be admitted to intensive care unit and she remains critically ill. REVIEW OF SYSTEMS CONSTITUTIONAL: generalized fatigue, malaise NEUROLOGICAL: Denies headache, amaurosis fugax, motor weakness, sensory deficit, vertigo/spinning sensation, gait abnormalities, or tremors. ENT: No hearing loss, otalgia, otorrhea, rhinitis, rhinorrhea, hoarseness, or sore throat. CARDIOVASCULAR: chest pain, Shortness of breath, dizziness, lightheadedness PULMONARY: Denies any shortness of breath, cough, phlegm/sputum, hemoptysis, pleuritic chest pain. SLEEP: Denies morning headaches, daytime somnolence or napping. Denies difficulty falling asleep, staying asleep, waking from sleep. Denies knowledge of snoring. GASTROINTESTINAL: Reports having nausea, Denies any type of dysphagia to either liquids or solids. Denies vomiting, pyrosis, early satiety, abdominal pain, diarrhea, constipation, or changes in stool consistency or caliber. Denies coffee-ground emesis, hematemesis, hematochezia, or melanotic stools. GENITOURINARY: Denies frequency, urgency, nocturia, hematuria or incontinence (Storage/Irritative symptoms.) Low urinary stream, straining to void, urinary intermittency or hesitancy, splitting of the voiding stream, terminal dribbling. ENDOCRINOLOGIC: Denies polyuria, polydipsia, polyphagia or heat/cold intolerances. HEMATOLOGIC: Denies thrombophilia/previous clots, or coagulopathy/bleeding disorders. ONCOLOGIC: Denies personal history of malignancy. DERMATOLOGIC: Denies rashes or pruritus. PSYCHIATRIC: Denies any suicidal or homicidal ideation. Denies hallucinations. PAST MEDICAL HISTORY: Coronary artery disease with history of abnormal coronary CT angiography, gastritis, anemia, cocaine use disorder, obesity, PTSD, anxiety disorder, history of NSTEMI in 04/2025, history of CVA in 2008 PAST SURGICAL HISTORY: History of ventral hernia repair 2008, hx of cholecystectomy, hx of C Section PAST SOCIAL HISTORY: Denies active alcohol consumption, intermittently smokes cigarettes as well as has been using cocaine chronically FAMILY HISTORY: Reports family history of heart disease Home medications: Patient does not have list of home medications, family will be bringing list of home medications to be updated Allergies: Patient has allergic reaction to lisinopril Coded Allergies: No Known Drug Allergies (Verified Allergy, Unknown, 05/04/22) lisinopril (Verified Allergy, Unknown, 05/04/22) PHYSICAL EXAM GENERAL APPEARANCE: The patient is awake, appears ill and in mild distress NEUROLOGICAL: Cranial nerves II-XII grossly intact. Motor is 5/5 in bilateral upper and lower extremities proximal to distal. No sensory deficits. HEENT: Face is symmetric. Pupils are equal and reactive. Extraocular movements are intact. NECK: Supple. No JVD. No thyromegaly. No submental, submandibular, pre- /postauricular, occipital or supraclavicular lymphadenopathy. CHEST: Normal chest expansion. No Telemetry. LUNGS: minimal crackles noted of the bilateral lung bases CARDIOVASCULAR: Regular. S1 and S2 normal. No appreciable rubs, murmurs or gallops. ABDOMEN: Soft, nontender, and nondistended. There is no rebound, voluntary guarding, or rigidity. : Deferred. No Coombs. EXTREMITIES: trace edema noted of the bilateral lower extremities SKIN: No skin breakdown. Vital Sign (Last 24 Hours) 08/13/25 08/13/25 15:11 16:35 Temp 99.1 Pulse 68 Resp 20 B/P (MAP) 135/43 Pulse Ox 99 O2 Delivery Nasal Cannula* O2 Flow Rate 2 FiO2 28 LABS: Laboratory: Test 08/13/25 16:31 08/13/25 14:48 Range/Units Hemoglobin A1c 10.7 H 4.0-6.0 % Estimated Average Glucose (eAG) 260 H 70-126 mg/dL Whole Blood Ketones Quantitative 0.2 0.0-0.6 mmol/L Lactic Acid Level 4.2 H 0.8-2.5 mmol/L Magnesium Level 1.80 1.80-2.40 mg/dL C-Reactive Protein, Quantitative 88.60 H 0.5-3.0 mg/L White Blood Count 12.2 H 4.8-10.8 K/uL Red Blood Count 4.03 4.00-5.50 MIL/uL Hemoglobin 12.4 12.0-16.0 g/dL Hematocrit 35.9 L 36-48 % Mean Corpuscular Volume 89.1 79-99 fL Mean Corpuscular Hemoglobin 30.8 27.0-33.0 pg Mean Corpuscular Hemoglobin Concent 34.5 32.0-36.0 g/dL Red Cell Distribution Width 11.9 11.0-15.5 % Platelet Count 209 130-400 K/uL Mean Platelet Volume 11.4 H 7.5-10.5 fL Immature Granulocyte % (Auto) 1.1 H 0-1 % Neutrophils (%) (Auto) 69.7 40.0-77.0 % Lymphocytes (%) (Auto) 21.0 21.0-51.0 % Monocytes (%) (Auto) 7.2 3.0-13.0 % Eosinophils (%) (Auto) 0.8 0.0-8.0 % Basophils (%) (Auto) 0.2 0.0-5.0 % Neutrophils # (Auto) 8.5 H 1.8-7.7 K/uL Lymphocytes # (Auto) 2.6 1.0-4.8 K/uL Monocytes # (Auto) 0.9 0.1-1.0 K/uL Eosinophils # (Auto) 0.10 0.00-0.70 K/uL Basophils # (Auto) 0.03 0.00-0.20 K/uL Absolute Immature Granulocyte (auto 0.13 0-1 K/uL Nucleated Red Blood Cells 0.0 0.0-0.19 % Activated Partial Thromboplast Time 26.9 26.3-35.5 SEC Sodium Level 133 L 136-145 mmol/L Potassium Level 4.8 3.5-5.1 mmol/L Chloride Level 99 L 101-111 mmol/L Carbon Dioxide Level 25 21-32 mmol/L Blood Urea Nitrogen 21 H 7-18 mg/dL Creatinine 1.0 0.5-1.0 mg/dL Glomerular Filtration Rate Calc 65 >90 mL/min Random Glucose 403 *H 70-105 mg/dL Total Calcium 8.6 8.5-10.1 mg/dL Total Bilirubin 0.4 0.2-1.0 mg/dL Direct Bilirubin 0.1 0.0-0.3 mg/dL Aspartate Amino Transf (AST/SGOT) 86 H 10-37 U/L Alanine Aminotransferase (ALT/SGPT) 28 12-78 U/L Alkaline Phosphatase 91 50-136 U/L Troponin I High Sensitivity 07856 *H 4-50 ng/L B-Type Natriuretic Peptide 211 H 0-100 pg/mL Total Protein 7.3 6.0-8.3 g/dL Albumin 2.6 L 3.5-5.0 g/dL Lipase 31 16-77 U/L Current Medications Medications (Trade) Dose Ordered Sig/Elmer Route PRN Reason Start Time Stop Time Status Last Admin Dose Admin Acetaminophen (TYLenol 325MG TAB) 650 mg Q6H PRN PO MILD PAIN (1-3) 08/13/25 16:30 09/12/25 16:29 Atorvastatin Calcium (LIPItor 40MG) 40 mg HS PO 08/13/25 21:00 09/12/25 20:59 Dopamine HCl/ Dextrose 250 ml @ 0 mls/hr PROTOCOL IV 08/13/25 16:00 09/12/25 15:59 08/13/25 16:22 34 MLS/HR Heparin Sodium (Porcine) (HEParin 5,000 UNIT VIAL) *calculation based on ACTUAL B... AD PRN IV HEPARIN PROTOCOL 08/13/25 16:30 09/12/25 16:29 08/13/25 16:18 5,000 UNIT Heparin Sodium/ Dextrose 250 ml @ 0 mls/hr Q6H IV 08/13/25 16:30 09/12/25 16:29 08/13/25 16:31 15 MLS/HR Insulin Human Regular (humuLIN R 100 UNIT/ML 3ML) INSULIN SLIDING SCAL... ACHS SQ 08/13/25 16:30 09/12/25 16:29 Magnesium Sulfate 50 ml @ 0 mls/hr PROTOCOL IV 08/13/25 16:30 09/12/25 16:29 Norepinephrine 250 ml @ 0 mls/hr PROTOCOL IV 08/13/25 15:30 09/12/25 15:29 Ondansetron HCl (zoFRAN 4MG INJ) 4 mg Q6H PRN IVP NAUSEA/VOMITING 08/13/25 16:30 09/12/25 16:29 Pantoprazole Sodium (PROTonix 40MG INJ) 40 mg Q24H IVP 08/13/25 16:30 09/12/25 16:29 Potassium Chloride 100 ml @ 100 mls/hr AD PRN IV POTASSIUM PROTOCOL 08/13/25 16:30 09/12/25 16:29 Potassium Chloride (K-Dur/Klor-Con 20meq) 20 meq AD PRN PO POTASSIUM PROTOCOL 08/13/25 16:30 09/12/25 16:29 Potassium Chloride (KCl 10% Elixir 20meq/15ml) 20 meq AD PRN PO POTASSIUM PROTOCOL 08/13/25 16:30 09/12/25 16:29 DIAGNOSTICS / RADIOLOGY: SERVICE 1425 REASON: cp ORDERING PHYSICIAN: ZORA OCHOA MD PROCEDURE: CXR1VW - CHEST 1VW EXAM: CR Chest, 1 View. CLINICAL HISTORY: cp COMPARISON: 07/08/25 FINDINGS: LUNGS: The lungs show no infiltrate or other acute finding. PLEURAL SPACES: No pleural effusion or pneumothorax. MEDIASTINUM: The cardiomediastinal silhouette is within normal limits. BONES: No aggressive appearing osseous lesion seen. IMPRESSION: No acute cardiopulmonary pathology is evident. /[place] DICTATED BY: BELKIS KURTZ MD DATE: 08/13/251731 ELECTRONICALLY SIGNED BY: BELKIS KURTZ MD DATE: 08/13/251731 ASSESSMENT: Cardiogenic shock with lactic acidosis, POA NSTEMI/ACS, POA Complete heart block, POA History of multivessel coronary artery disease, POA History of cocaine use disorder, POA Severe nonketotic hyperglycemia, POA History of to poorly controlled type 2 diabetes mellitus, POA Lactic acidosis, POA History of anemia, POA History of gastritis, POA History of hypertension, POA History of PTSD/anxiety, POA Obesity, POA Medical noncompliance, POA PLAN: Patient will be admitted to ICU Patient has been seen by Cardiology already and will be taken to lab scientist for emergent PCI, temporary transvenous pacemaker placement as well as possible MCS support with Impella We will monitor lactic acid trend closely Obtain 2D echocardiogram We will monitor this patient postprocedure closely Consultation with ICU service will be requested Patient will be started on aggressive sliding scale insulin a.c. and HS, we will start patient on basal Lantus We will obtain blood cultures, we will check CRP and procalcitonin, we will check for infection and we will start empiric antibiotics in case of fever or source of infection confirmed We will avoid IV fluids due to underlying cardiogenic shock, will avoid any Beta Blockers We will avoid any antihypertensives due to hypotension on presentation, patient is currently on dopamine drip, we will maintain MAP greater than 65 We will keep NPO and we will follow up this patient postprocedure we will keep patient on Protonix 40 mg IV daily Patient has been started on heparin drip in the ER and has received dual antiplatelet therapy with aspirin and Brilinta, patient will be be maintained on aspirin and heparin gtt post procedure Home medications will be reconciled and updated once available, patient was counseled to quit any cocaine use, patient verbalized understanding We will see how patient progresses in the next 48-72 hours, she remains critically ill Date of service: 08/13/2025 Plan of care was discussed with patient at bedside, critical care minutes: 45 minutes Son Larsen MD, Advanced Care Planning: Which of the following were discussed: Hospice care: Yes __ No _X_ Therapeutic options: Yes _X_ No __ Advance directives: Yes _X_ No __ Other discussions: Discussed with who?: Patient Voluntary nature of this service was explained to the patient? Yes _x_ No __ Amount of time spent: 20 minutes SON LARSEN MD Aug 13, 2025 17:39
--- NOTE | 2025-08-13 18:22 | PRN ---
Cath Procedure Report CATH PROCEDURE REPORT CARDIAC CATHETERIZATION REPORT Date of Service: Aug 13, 2025 PROCEDURE: 1. Left heart catheterization with selective right and left coronary angiography 2. Mechanical circulatory support with Impella CP placement to right common femoral artery 3. Transvenous pacemaker implantation via right common femoral vein 4. Attempted PCI to the 100% distal RCA occlusion, unable to cross with a wire. 5. Right common femoral and proximal superficial femoral artery angiography 6. Conscious sedation PRIMARY GRINDER SET UP OPERATOR CENTERLESS: Dr Dell Naranjo LATHE SPOTTER: Chandrika Sanches DO INDICATION: 1. Non ST-elevation PA 2. Cardiogenic shock stage D 3. Multivessel coronary artery disease 4. Complete heart block DESCRIPTION OF PROCEDURE: Patient was brought back to the earth science laboratory technician suite after informed consent was obtained in the emergency department by the patient and her son. Bilateral groins were prepped and draped in sterile fashion. Time-out was performed. Using ultrasound and fluoroscopic guidance, right common femoral artery and common femoral vein were identified. 2% lidocaine was used at the subcutaneous tissues. Access was obtained of the right common femoral vein using ultrasound guidance and micropuncture and placement of five [place] short sheath. Access was achieved of the right common femoral artery using micropuncture technique and placement of six [place] short sheath. Six [place] Perclose was deployed at 12 o'clock positioning at the right common femoral artery and the sheath was upsized for the Impella sheath. 70 units/kg of heparin was given via peripheral IV. The Impella sheath side port was aspirated and flushed with heparinized saline. A six [place] angled pigtail was advanced into the left ventricle for LVEDP measurement, pullback across the aortic valve confirming no aortic stenosis. This was again placed in the left ventricle and the Impella wire was advanced, followed by advancement of the Impella CP across the aortic valve and support was initiated. As the patient's heart rate was stable in the 50s although complete heart block, at this point we decided to proceed with coronary angiography. Six [place] JR4 catheter was used to selectively engage the right coronary artery in multiple angiographic views were taken. This was then exchanged for a six [place] JL 4.0 catheter which was used to selectively engage the left coronary artery and multiple angiographic views were taken. ACT was confirmed to be greater than 250. At this point, decision was made to attempt to cross the 100% distal RCA occlusion, therefore we advanced a transvenous pacemaker into the right ventricular apex with capture loss at 0.8. This was set at a backup rate of 40 beats per minute. A six [place] JR4 guide catheter was advanced into the ascending aorta, used to selectively engage the right coronary artery common 014 runthrough was initially used in attempts to cross the distal RCA occlusion. As it was unsuccessful, we advanced a fine cross catheter, however still unable to cross the occlusion with a runthrough wire. At this point, given the patient's history and noncompliance with medical therapy, and evidence that the occlusion was not an acute thrombus amenable to thrombectomy, decision was to abort further attempts at percutaneous coronary intervention. The coronary wire, fine cross catheter, and guide catheter were removed. Digital subtraction angiography was performed through the Impella sheath side port of the right common femoral artery and proximal superficial femoral artery. The Impella sheath, transvenous pacemaker, and venous sheath were sutured in place and secured with sterile dressing. Patient chest pain free at the conclusion of the procedure. Heart rate 50 beats per minute in two-to-one AV block, mean arterial pressure 62 mm Hg, dopamine at infusion at 2.5 mcg, Impella pulling 3.6 LPM. FINDINGS: 1. Left main is angiographically normal 2. Left anterior descending artery proximal focal 70% stenosis, followed by 40- 50% mid LAD stenosis. The apical LAD is small measuring approximately 1.5 mm caliber with mild diffuse disease. First diagonal small less than 2 mm in caliber, midportion appears subtotal occlusion. Second diagonal ostial 90% stenosis with branch measuring 2-2.25 mm caliber 3. Left circumflex mid 80-90% stenosis with the distal vessel measuring approximately 2-2.25 mm caliber. OM1 branch with ostial to proximal 80-90% stenosis, measuring approximately 2.5 mm caliber with a smaller inferior branch distally. 4. Right-dominant coronary system however the distal RCA is 100% occluded. No collateral filling from the right or the left. Proximal 20-30% stenosis followe d by 30% calcific stenosis in the midportion. Small caliber marginal branches, patent. SUMMARY: 1. Cardiogenic shock Stage D 2. NSTEMI 3. Multivessel coronary artery disease 4. Complete heart block CHANDRIKA SANCHES DO Aug 13, 2025 18:22
--- NOTE | 2025-08-13 19:28 | CONS ---
[facility] CONSULTATION NOTE Date Patient Seen: Aug 13, 2025 Time of Visit: 19:27 Supervising Physician: Dr. 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 Physician: Hospitalist Outpatient Specialists: [ ] Inpatient Consults: [ ] PROBLEM LIST: Acute hypoxic respiratory failure, POA NSTEMI, POA Cardiogenic shock, status post cardiac catheterization with multivessel disease, Impella placement POA Complete heart block, status post transvenous temporary pacemaker placement POA CAD, with multivessel disease, POA Lactic acidosis, likely from cardiogenic shock DM type 2, with hyperglycemia, poorly controlled, HGB A1c of 10.7 POA Hyponatremia, POA Urine drug screen positive for cocaine, POA Tobacco use, current day smoker usually consume six sticks per day History of hypertension, currently on Impella device History of CVA PLAN: Continue ICU care VS per unit protocol Complete bedrest for now Wean O2 as tolerated May have ice chips Aspiration precautions Monitor for bleeding Replete electrolyte accordingly Keep serum glucose less than 150 Keep SBP less than 160 Trend troponin level Stat EKG if with chest pain Facilitate ordered imaging and lab work Strict I&O Rest of plan care of Cardiology and primary HPI: 60-year-old his panic female with past medical history of hypertension, DM type 2, tobacco use, cocaine use who presented to ED with complaint of chest pain with associated dizziness and difficulty breathing and found to have NSTEMI, cardiogenic shock, and complete heart block. Patient was seen and examined in her room with no relatives present at bedside. According to her her symptoms started this morning when she woke up with chest pain, her symptom got worse now with nausea and vomiting, son then brought her to ED for further medical evaluation. In ED patient was found to have heart rate in the 40s with systolic in the 70s. [place] [address], hemoglobin of 12.4, and hematocrit of 35.9. Her chemistry is significant for sodium of 133, glucose of above 400, lactic acid of 4.2, [place] [address]. Her EKG showed complete heart block with left bundle-branch block. Interventional cardiology was then activated and brought patient to catheterization laboratory technician for emergent PCI. Patient is status post cardiac catheterization with multivessel disease, temporary pacemaker placement, and Impella device placement. Patient was subsequently transferred to ICU for continued care pending CT surgery evaluation for possible CABG. ICU consulted for critical care evaluation and management. Patient was seen and examined in her room with no relatives present at bedside. Currently on non- rebreather, normal sinus Zay on the monitor with heart rate of 40s, on Impella device via right femoral access site, with acceptable O2 saturation and SBP. Patient denies any headache, chest pain, shortness of breath, abdominal pain, fever, cough, or difficulty urinating. Patient is a current day smoker, uses cocaine periodically, and drinks alcohol occasionally. PAST MEDICAL HX: see above PAST SURGICAL HX: noncontributory SOCIAL HISTORY: See HPI Coded Allergies: No Known Drug Allergies (Verified Allergy, Unknown, 05/04/22) lisinopril (Verified Allergy, Unknown, 05/04/22) REVIEW OF SYSTEMS: 12 point ROS reviewed with patient. Pertinent positives mentioned above. Otherwise negative. PHYSICAL EXAM: GENERAL: alert, weak, awake oriented x 3 HEENT: EOMI, Sclera non icteric, moist mucosa NECK: Supple, no JVD, trachea midline LUNGS: Clear breath sounds bilaterally. No wheezes HEART: Sinus Zay in the 40s, Normal S1 and S2, without murmurs ABD: Abdomen soft, nontender. Bowel sounds present EXT: No clubbing cyanosis or edema NEURO: Alert and oriented to person, follows commands Vital Signs (last 8hr) Date Time Temp Pulse Resp B/P (MAP) Pulse Ox O2 Delivery O2 Flow Rate FiO2 08/13/25 16:35 68 20 135/43 99 Nasal Cannula* 2 28 08/13/25 16:22 74/63 08/13/25 15:11 99.1 42 20 75/32 98 Room Air* 0 21 08/13/25 14:21 99.5 40 15 80/60 97 Room Air 0 LABS: Hematology Labs: Test 08/13/25 14:48 Range/Units White Blood Count 12.2 H 4.8-10.8 K/uL Red Blood Count 4.03 4.00-5.50 MIL/uL Hemoglobin 12.4 12.0-16.0 g/dL Hematocrit 35.9 L 36-48 % Mean Corpuscular Volume 89.1 79-99 fL Mean Corpuscular Hemoglobin 30.8 27.0-33.0 pg Mean Corpuscular Hemoglobin Concent 34.5 32.0-36.0 g/dL Red Cell Distribution Width 11.9 11.0-15.5 % Platelet Count 209 130-400 K/uL Mean Platelet Volume 11.4 H 7.5-10.5 fL Immature Granulocyte % (Auto) 1.1 H 0-1 % Neutrophils (%) (Auto) 69.7 40.0-77.0 % Lymphocytes (%) (Auto) 21.0 21.0-51.0 % Monocytes (%) (Auto) 7.2 3.0-13.0 % Eosinophils (%) (Auto) 0.8 0.0-8.0 % Basophils (%) (Auto) 0.2 0.0-5.0 % Neutrophils # (Auto) 8.5 H 1.8-7.7 K/uL Lymphocytes # (Auto) 2.6 1.0-4.8 K/uL Monocytes # (Auto) 0.9 0.1-1.0 K/uL Eosinophils # (Auto) 0.10 0.00-0.70 K/uL Basophils # (Auto) 0.03 0.00-0.20 K/uL Absolute Immature Granulocyte (auto 0.13 0-1 K/uL Nucleated Red Blood Cells 0.0 0.0-0.19 % Chemistry Labs: Test 08/13/25 17:58 08/13/25 16:31 08/13/25 14:48 Range/Units Lactic Acid Level 2.1 0.8-2.5 mmol/L Troponin I High Sensitivity 42104 *H 4-50 ng/L Hemoglobin A1c 10.7 H 4.0-6.0 % Estimated Average Glucose (eAG) 260 H 70-126 mg/dL Whole Blood Ketones Quantitative 0.2 0.0-0.6 mmol/L Magnesium Level 1.80 1.80-2.40 mg/dL C-Reactive Protein, Quantitative 88.60 H 0.5-3.0 mg/L Procalcitonin 0.05 0.05-0.5 ng/mL Sodium Level 133 L 136-145 mmol/L Potassium Level 4.8 3.5-5.1 mmol/L Chloride Level 99 L 101-111 mmol/L Carbon Dioxide Level 25 21-32 mmol/L Blood Urea Nitrogen 21 H 7-18 mg/dL Creatinine 1.0 0.5-1.0 mg/dL Glomerular Filtration Rate Calc 65 >90 mL/min Random Glucose 403 *H 70-105 mg/dL Total Calcium 8.6 8.5-10.1 mg/dL Total Bilirubin 0.4 0.2-1.0 mg/dL Direct Bilirubin 0.1 0.0-0.3 mg/dL Aspartate Amino Transf (AST/SGOT) 86 H 10-37 U/L Alanine Aminotransferase (ALT/SGPT) 28 12-78 U/L Alkaline Phosphatase 91 50-136 U/L B-Type Natriuretic Peptide 211 H 0-100 pg/mL Total Protein 7.3 6.0-8.3 g/dL Albumin 2.6 L 3.5-5.0 g/dL Lipase 31 16-77 U/L Coagulation Labs: Test 08/13/25 14:48 Range/Units Activated Partial Thromboplast Time 26.9 26.3-35.5 SEC DIAGNOSTICS / RADIOLOGY RESULTS: EXAM: CR Chest, 1 View. CLINICAL HISTORY: cp COMPARISON: 07/08/25 FINDINGS: LUNGS: The lungs show no infiltrate or other acute finding. PLEURAL SPACES: No pleural effusion or pneumothorax. MEDIASTINUM: The cardiomediastinal silhouette is within normal limits. BONES: No aggressive appearing osseous lesion seen. IMPRESSION: No acute cardiopulmonary pathology is evident. PLAN NEURO: Minimize central acting medications as possible. Fall Precautions. Well lighted room through the day and minimize interruptions through the night to prevent acute delirium. PULMONARY: Supplemental 02 as needed Titrate Fio2 to keep Spo2 > or = 90% DuoNebs and CPT as needed IS hourly while awake for pulmonary hygiene CARDIOVASCULAR: Follow hemodynamics. Titrate vasopressor to keep MAP >65 or systolic blood pressure >95mmHg DIPS: [ ] LINES: [ ] GI & NUTRITION: Continue nutritional support Aspirations precautions Prokinetic agents and laxatives as needed KIDNEYS & ELECTROLYTES: Strict monitoring of intake and output Daily weights Avoid nephrotoxic agents Monitor electrolytes and replace as needed Goal urine output of 30mL/hr or 0.5mL/kg/hr Urine output: [ ] Fluid Balance: [ ] ENDOCRINE: Maintain blood glucose between 100-180 at all times. Insulin sliding scale for blood glucose management INFECTIOUS DISEASE: Trend temperature. Astudillo-culture if febrile. Micro: [ ] Antibiotics: [ ] HEMATOLOGY & COAGULATION: Monitor H&H. Keep Hgb > 7 Transfuse 1 unit of PRBC for Hgb < 7 Transfuse 1 pack of platelets of platelets < 20, 000 Watch for any signs and symptoms of bleeding SKIN: Pressure ulcer prevention per facility protocol Rehab: PT/OT Prophylaxis: GI: PPI DVT: SCDs Code Status: Full Resuscitation Disposition: ICU Other: Total patient care time exceeds 35 minutes excluding all procedures. Supervising physician: Arturo Higgins TAHA JEJIN M AGACNP Aug 13, 2025 19:28
[2025-08-13] MEDS ORDERED: DEXTROSE 50%-WATER 50 ML DISP.SYRIN IV PRN (20:00)
[2025-08-13] MEDS ORDERED: GLUCAGON 1MG KIT 1 MG ML IM PRN (20:00)
[2025-08-14] VITALS (94 sets, daily range): BP systolic 88–149; BP diastolic 55–88; PULSE 31–96; RESP 12–30; TEMP 98.3–98.8; O2SAT 98–100
[2025-08-14] MEDS ORDERED: DEXTROSE 5% IVP SCH (00:30)
[2025-08-14] MEDS ORDERED: SYRING IVP SCH (00:30)
[2025-08-14] MEDS ORDERED: WATER IVP SCH (00:30)
[2025-08-14] MEDS ORDERED: SODIUM BICARB 8.4% IVP SCH (00:30)
[2025-08-14 00:46] LABS: ADD UA MICROSCOPIC YES; APPEARANCE,URINE CLEAR (CLEAR); GLUCOSE, URINE (UA) >=1000 mg/dL (NEGATIVE); LEUKOCYTE ESTERASE ,URINE NEGATIVE Leu/uL (NEGATIVE); NITRATE,URINE NEGATIVE (NEGATIVE); OCCULT BLOOD,URINE SMALL (NEGATIVE)
[2025-08-14 00:47] LABS: SQUAMOUS EPITHELIAL CELL,UR RARE /HPF (0-2)
[2025-08-14 01:14] LABS: AMPHET/METH SCREEN,URINE NEGATIVE (NEGATIVE); BARBITURATE SCREEN, URINE NEGATIVE (NEGATIVE); CANNABINOID SCREEN,URINE NEGATIVE (NEGATIVE); COCAINE SCREEN,URINE POSITIVE (NEGATIVE)
[2025-08-14 05:00] LABS: IMMATURE GRANULOCYTE ABSOLUTE 0.05 K/uL (0-1); NUCLEATED RED BLOOD CELLS 0.0 % (0.0-0.19); PLATELET COUNT (AUTO) 184 K/uL (130-400); RED BLOOD CELL COUNT(AUTO) 3.77 MIL/uL (4.00-5.50); RED CELL DISTRIBUTION WIDTH 11.7 % (11.0-15.5); WHITE BLOOD COUNT (AUTO) 11.3 K/uL (4.8-10.8)
[2025-08-14 05:26] LABS: ASPARTATE AMINOTRANSFERASE 113.0 U/L (10-37); CREATININE 0.6 mg/dL (0.5-1.0); GLOMERULAR FILTR. RATE CALC 104.0 mL/min (>90); GLUCOSE,RANDOM 294.0 mg/dL (70-105); SODIUM SERUM 136.0 mmol/L (136-145); TOTAL PROTEIN, SERUM 6.5 g/dL (6.0-8.3); UREA NITROGEN, BLOOD 18.0 mg/dL (7-18)
[2025-08-14] MEDS: GLYCERIN ADULT SUPP.RECT RC ONE (05:56)
--- NOTE | 2025-08-14 06:48 | PN ---
[facility] Cardiology Progress Note CARDIOLOGY PROGRESS NOTE AUGUST 14, 2025 Problems: 1. Non ST-elevation IN complicated by cardiogenic shock and complete heart block status post Impella placement in the right common femoral artery transvenous pacemaker 2. CAD with total occlusion of the right coronary artery unable to cross with a wire , of note the patient had a 30-40% RCA stenosis in April of this year raising possibility of spasm and/or plaque rupture. 3. Cocaine abuse , tox screen positive for cocaine and benzodiazepines 4. Diabetes mellitus type 2 uncontrolled 5. Tobacco dependence 6. Remote CVA 2008 7. Noncompliance history, the patient has been seen in the hospital but has not followed up in the office. 8. Dyslipidemia This morning blood pressure is running 95-100 systolic. Heart rate is in the 80s . Telemetry shows sinus rhythm. The patient is afebrile white count 94718 hemoglobin 11.4 [place] [address]. Potassium 3.9 BUN18 creatinine 0.6. Troponins gone from 10,000 to 11,000. Brain natriuretic peptide level on admission was 211. The patient continues on Impella support dopamine aspirin atorvastatin heparin protocol insulin scale pantoprazole potassium protocol . Tox screen positive for benzodiazepines and cocaine. This morning the patient is awake alert. Denies any chest pain or shortness of breath. Femoral site shows no hematoma. Peripheral pulses palpable. We will obtain a 2D echo today to assess LV function and check Impella position. Plans are to can continue with supportive measures. Prognosis is guarded. CHIRAG GATES MD Aug 14, 2025 06:48
[2025-08-14] MEDS: MAGNESIUM 2GM PREMIX 50ML 50 ML IV SCH (06:49)
[2025-08-14] MEDS: ASPIRIN 81MG CHEW TAB PO SCH (07:55)
--- NOTE | 2025-08-14 08:31 | PN ---
[facility] PROGRESS NOTE Date Patient Seen: Aug 14, 2025 Time of Visit: 08:31 Supervising Physician: JAMES ABEL MD Consulting Physician: Hospitalist Outpatient Specialists: [ ] Inpatient Consults: [ ] PROBLEM LIST: Acute hypoxic respiratory failure, POA NSTEMI, POA Cardiogenic shock SCAI stage D status post cardiac catheterization with multivessel disease, Impella placement POA Complete heart block, status post transvenous temporary pacemaker placement POA CAD, with multivessel disease, POA Lactic acidosis, likely from cardiogenic shock DM type 2, with hyperglycemia, poorly controlled, HGB A1c of 10.7 POA Hyponatremia, POA Cocaine abuse, POA Tobacco use, current day smoker usually consume six sticks per day History of hypertension, currently on Impella device History of CVA Chronic constipation INTERVAL HISTORY: Pt awake alert and oriented x 3. Day one status post left heart catheterization with multivessel CAD finding. Pending CV surgeon evaluation. Continues with low-dose dopamine drip at 2.5 mcg/kg per minute. CVP in place. Heart rate in the 80s hemodynamically stable. Wean dopamine as tolerated. Impella for MCS at P7. Patient complains of chronic constipation and chronic abdominal pain. Denies any chest pain, dizziness or shortness for breath at this time. Patient is pending 2D echo reading. We will continue to follow cardiology and CV surgery recommendations. REVIEW OF SYSTEMS: 12 point ROS reviewed with patient. Pertinent positives mentioned above. Otherwise negative. PHYSICAL EXAM: GENERAL: alert, weak, awake oriented x 3 HEENT: EOMI, Sclera non icteric, moist mucosa NECK: Supple, no JVD, trachea midline LUNGS: Clear breath sounds bilaterally. No wheezes HEART: Sinus Zay in the 40s, Normal S1 and S2, without murmurs ABD: Abdomen soft, nontender. Bowel sounds present EXT: No clubbing cyanosis or edema NEURO: Alert and oriented to person, follows commands Vital Signs (last 8hr) Date Time Temp Pulse Resp B/P (MAP) Pulse Ox O2 Delivery O2 Flow Rate FiO2 08/14/25 08:00 129/81 08/14/25 06:45 92 23 104/66 (79) 98 116/74 (88) 08/14/25 06:30 90 27 115/63 (80) 98 125/75 (92) 08/14/25 06:28 88 21 N/Cannula Low lpm 1.0 24 10/10/25 06:15 88 16 113/68 (83) 99 127/77 (94) 08/14/25 06:00 87 15 102/63 (76) 98 24 120/73 (89) 08/14/25 05:45 87 23 90/62 (71) 97 110/70 (83) 08/14/25 05:30 89 14 99/67 (78) 99 126/78 (94) 08/14/25 05:15 88 17 116/62 (80) 98 115/71 (86) 08/14/25 05:00 84 17 106/65 (79) 99 24 119/73 (88) 08/14/25 04:45 83 30 88/61 (70) 100 107/69 (82) 08/14/25 04:30 91 21 121/58 (79) 97 102/68 (79) 08/14/25 04:15 85 18 101/65 (77) 98 120/75 (90) 08/14/25 04:00 98 Nasal Cannula* 1 24 08/14/25 04:00 98.2 88 19 105/67 (80) 98 24 131/81 (98) 08/14/25 03:45 86 17 95/60 (72) 98 111/71 (84) 08/14/25 03:30 85 17 104/60 (75) 98 111/72 (85) 08/14/25 03:15 86 17 104/62 (76) 98 108/70 (83) 08/14/25 03:00 86 16 97/60 (72) 98 24 109/69 (82) 08/14/25 02:45 87 16 94/58 (70) 100 105/68 (80) 08/14/25 02:30 82 19 117/66 (83) 100 132/76 (94) 08/14/25 02:15 86 21 127/70 (89) 99 136/79 (98) 08/14/25 02:00 81 18 120/67 (84) 97 24 136/77 (96) 08/14/25 01:45 82 17 108/69 (82) 98 137/81 (99) 08/14/25 01:30 84 17 112/70 (84) 98 133/79 (97) 08/14/25 01:15 84 18 110/63 (79) 98 121/73 (89) 08/14/25 01:00 83 18 111/65 (80) 98 24 125/76 (92) 08/14/25 00:45 83 18 127/75 (92) 98 141/82 (101) LABS: Hematology Labs: Test 08/14/25 04:45 Range/Units White Blood Count 11.3 H 4.8-10.8 K/uL Red Blood Count 3.77 L 4.00-5.50 MIL/uL Hemoglobin 11.4 L 12.0-16.0 g/dL Hematocrit 32.7 L 36-48 % Mean Corpuscular Volume 86.7 79-99 fL Mean Corpuscular Hemoglobin 30.2 27.0-33.0 pg Mean Corpuscular Hemoglobin Concent 34.9 32.0-36.0 g/dL Red Cell Distribution Width 11.7 11.0-15.5 % Platelet Count 184 130-400 K/uL Mean Platelet Volume 11.0 H 7.5-10.5 fL Immature Granulocyte % (Auto) 0.4 0-1 % Neutrophils (%) (Auto) 72.4 40.0-77.0 % Lymphocytes (%) (Auto) 19.9 L 21.0-51.0 % Monocytes (%) (Auto) 6.8 3.0-13.0 % Eosinophils (%) (Auto) 0.3 0.0-8.0 % Basophils (%) (Auto) 0.2 0.0-5.0 % Neutrophils # (Auto) 8.1 H 1.8-7.7 K/uL Lymphocytes # (Auto) 2.2 1.0-4.8 K/uL Monocytes # (Auto) 0.8 0.1-1.0 K/uL Eosinophils # (Auto) 0.03 0.00-0.70 K/uL Basophils # (Auto) 0.02 0.00-0.20 K/uL Absolute Immature Granulocyte (auto 0.05 0-1 K/uL Nucleated Red Blood Cells 0.0 0.0-0.19 % Chemistry Labs: Test 08/14/25 06:51 08/14/25 04:45 08/13/25 17:58 08/13/25 16:31 Range/Units Whole Blood Glucose 294 H 70-110 MG/DL Sodium Level 136 136-145 mmol/L Potassium Level 3.9 3.5-5.1 mmol/L Chloride Level 103 101-111 mmol/L Carbon Dioxide Level 24 21-32 mmol/L Blood Urea Nitrogen 18 7-18 mg/dL Creatinine 0.6 0.5-1.0 mg/dL Glomerular Filtration Rate Calc 104 >90 mL/min Random Glucose 294 H 70-105 mg/dL Lactic Acid Level 1.3 0.8-2.5 mmol/L Total Calcium 8.2 L 8.5-10.1 mg/dL Magnesium Level 1.70 L 1.80-2.40 mg/dL Total Bilirubin 0.6 # 0.2-1.0 mg/dL Aspartate Amino Transf (AST/SGOT) 113 H 10-37 U/L Alanine Aminotransferase (ALT/SGPT) 23 12-78 U/L Alkaline Phosphatase 75 50-136 U/L Total Protein 6.5 6.0-8.3 g/dL Albumin 2.2 L 3.5-5.0 g/dL Troponin I High Sensitivity 77062 *H 4-50 ng/L Hemoglobin A1c 10.7 H 4.0-6.0 % Estimated Average Glucose (eAG) 260 H 70-126 mg/dL Whole Blood Ketones Quantitative 0.2 0.0-0.6 mmol/L C-Reactive Protein, Quantitative 88.60 H 0.5-3.0 mg/L Procalcitonin 0.05 0.05-0.5 ng/mL Test 08/13/25 14:48 Range/Units Direct Bilirubin 0.1 0.0-0.3 mg/dL B-Type Natriuretic Peptide 211 H 0-100 pg/mL Lipase 31 16-77 U/L Coagulation Labs: Test 08/14/25 04:45 08/13/25 17:26 Range/Units Activated Partial Thromboplast Time 84.0 #H 26.3-35.5 SEC Kaolin Activated Coagulation Time 268 H 74-137 SEC DIAGNOSTICS / RADIOLOGY RESULTS: [[facility] [address] [place] [address] IMAGING REPORT Signed PATIENT: LUL ARTHUR MR#: [id number] : 1965 SEX: F AGE: 60 LOCATION: 2CH ORDER DT: [id number] STATUS: ADM IN REPORT#: [id number] SERVICE 6 REASON: IMPELLA ORDERING PHYSICIAN: CARA FOUNTAIN PROCEDURE: CXR1VW - CHEST 1VW CHEST 1VW REASON: IMPELLA COMPARISON: Prior study from 08/13/2025 is available. FINDINGS: Single view of the chest was obtained. Lungs are clear. Heart size is normal. There is a right and left ventricular assisted device is in place i.E. Impella There is no pulmonary vascular congestion. Mediastinum and bony thorax appear unremarkable. IMPRESSION: 1. Evidence of airspace consolidation or pulmonary venous congestion. 2. Right and left-sided ventricular assisted device in place.. DICTATED BY: NARENDRA LILLY MD DATE: 08/14/251131 ELECTRONICALLY SIGNED BY: NARENDRA LILLY MD DATE: 08/14/251136 ] PLAN Continue ICU care Complete bedrest for now Wean O2 as tolerated CLEAR LIQUID DIET FOLLOW CARDIOLOGY recommendations Glucose goal 82 180 mg/dL Keep SBP less than 160 Neurovascular checks CIWA protocol Bowel regimen NEURO: Minimize central acting medications as possible. Fall Precautions. Well lighted room through the day and minimize interruptions through the night to prevent acute delirium. PULMONARY: Supplemental 02 as needed Titrate Fio2 to keep Spo2 > or = 90% DuoNebs and CPT as needed IS hourly while awake for pulmonary hygiene CARDIOVASCULAR: Follow hemodynamics. Titrate vasopressor to keep MAP >65 or systolic blood pressure >95mmHg DIPS: Dopamine wean as tolerated to maintain perfusion map above 65 Heparin gtt LINES: Peripheral IV CVP Impella GI & NUTRITION: Continue nutritional support Aspirations precautions Prokinetic agents and laxatives as needed Clear liquid diet as tolerated KIDNEYS & ELECTROLYTES: Strict monitoring of intake and output Daily weights Avoid nephrotoxic agents Monitor electrolytes and replace as needed Goal urine output of 30mL/hr or 0.5mL/kg/hr Urine output 2.3 L I&O balance-1.9 L ENDOCRINE: Maintain blood glucose between 100-180 at all times. Insulin sliding scale for blood glucose management INFECTIOUS DISEASE: Trend temperature. Astudillo-culture if febrile. Micro: [ ] Urine culture Blood culture Antibiotics: [ ] Rocephin HEMATOLOGY & COAGULATION: Monitor H&H. Keep Hgb > 7 Transfuse 1 unit of PRBC for Hgb < 7 Transfuse 1 pack of platelets of platelets < 20, 000 Watch for any signs and symptoms of bleeding SKIN: Pressure ulcer prevention per facility protocol Rehab: PT/OT Prophylaxis: GI: PPI DVT: SCDs patient on heparin drip Code Status: Full Resuscitation Disposition: ICU Other: Total patient care time exceeds 35 minutes excluding all procedures. ATTESTATION BY PHYSICIAN I attest that I reviewed and discussed the case with the Physician Defense Attorney as well as agree with the Physician Defense Attorney's findings, plans of care, and documentation above. James Joshi MD, [facility] Aug 14, 2025 08:31
--- NOTE | 2025-08-14 10:42 | PN ---
[facility] PROGRESS NOTE Date of Service: Aug 14, 2025 Time of Service: 10:36 SUBJECTIVE: This is a 60-year-old female with underlying history of obesity, coronary artery disease, poorly controlled type 2 diabetes mellitus, history of anemia, history of cocaine use, tobacco use disorder, history of CVA in 2008, who presented to the ER for further evaluation of severe substernal chest pain and shortness of breadth. Patient reports having history of cocaine use with last use of cocaine yesterday. She reports having severe substernal chest pain that started today in it has been associated with dizziness, and generalized malaise. Pain is 10/ 0 in severity. Patient denies any syncope or fall. She has been having lightheadedness with ambulation. She has not been able to follow up with Cardiology as outpatient. She has a previous history of abnormal CT coronary angiography when she was hospitalized in 04/2025 and she was treated medically. With regards to type 2 diabetes mellitus, she reports being on metformin as ou tpatient. On presentation to the hospital, patient was noted to be hypotensive with blood pressure of 80/60 with heart rate of 40 with EKG showing complete heart block. Labs [place] [address], hemoglobin 12.4, platelet count of 930500. BMP showed sodium of 133, potassium 4.8, chloride of 99, BUN of 21, creatinine 1.0, blood glucose of 403, [place] [address]. Chest x-ray showed no acute infiltrates. Patient will be admitted for further management of cardiogenic shock, NSTEMI, complete heart block with history of poorly controlled type 2 diabetes mellitus. Patient will be emergently taken to the label tacker for cardiac catheterization/ PCI and tentative plan for MCS support. Patient will be admitted to intensive care unit and she remains critically ill. 08/14 patient remains critically ill requiring Impella and dopamine support. UDS has demonstrated benzos and cocaine REVIEW OF SYSTEMS CONSTITUTIONAL: generalized fatigue, malaise NEUROLOGICAL: Denies headache, amaurosis fugax, motor weakness, sensory deficit, vertigo/spinning sensation, gait abnormalities, or tremors. ENT: No hearing loss, otalgia, otorrhea, rhinitis, rhinorrhea, hoarseness, or sore throat. CARDIOVASCULAR: chest pain, Shortness of breath, dizziness, lightheadedness PULMONARY: Denies any shortness of breath, cough, phlegm/sputum, hemoptysis, pleuritic chest pain. SLEEP: Denies morning headaches, daytime somnolence or napping. Denies difficulty falling asleep, staying asleep, waking from sleep. Denies knowledge of snoring. GASTROINTESTINAL: Reports having nausea, Denies any type of dysphagia to either liquids or solids. Denies vomiting, pyrosis, early satiety, abdominal pain, diarrhea, constipation, or changes in stool consistency or caliber. Denies coffee-ground emesis, hematemesis, hematochezia, or melanotic stools. GENITOURINARY: Denies frequency, urgency, nocturia, hematuria or incontinence (Storage/Irritative symptoms.) Low urinary stream, straining to void, urinary intermittency or hesitancy, splitting of the voiding stream, terminal dribbling. ENDOCRINOLOGIC: Denies polyuria, polydipsia, polyphagia or heat/cold intolerances. HEMATOLOGIC: Denies thrombophilia/previous clots, or coagulopathy/bleeding disorders. ONCOLOGIC: Denies personal history of malignancy. DERMATOLOGIC: Denies rashes or pruritus. PSYCHIATRIC: Denies any suicidal or homicidal ideation. Denies hallucinations. PHYSICAL EXAM GENERAL APPEARANCE: The patient is awake, appears ill and in mild distress NEUROLOGICAL: Cranial nerves II-XII grossly intact. Motor is 5/5 in bilateral upper and lower extremities proximal to distal. No sensory deficits. HEENT: Face is symmetric. Pupils are equal and reactive. Extraocular movements are intact. NECK: Supple. No JVD. No thyromegaly. No submental, submandibular, pre- /postauricular, occipital or supraclavicular lymphadenopathy. CHEST: Normal chest expansion. No Telemetry. LUNGS: minimal crackles noted of the bilateral lung bases CARDIOVASCULAR: Regular. S1 and S2 normal. No appreciable rubs, murmurs or gallops. ABDOMEN: Soft, nontender, and nondistended. There is no rebound, voluntary guarding, or rigidity. : Deferred. No Coombs. EXTREMITIES: trace edema noted of the bilateral lower extremities SKIN: No skin breakdown. Vital Signs (last 8hr) Date Time Temp Pulse Resp B/P (MAP) Pulse Ox O2 Delivery O2 Flow Rate FiO2 08/14/25 08:54 123/79 08/14/25 08:15 88 16 115/74 (88) 99 08/14/25 08:00 98.4 88 15 116/66 (83) 99 119/76 (90) 08/14/25 08:00 99 Nasal Cannula* 1 24 08/14/25 08:00 129/81 08/14/25 07:45 82 21 99/66 (77) 98 117/74 (88) 08/14/25 07:30 82 19 98/64 (75) 99 115/74 (88) 08/14/25 07:15 87 16 126/69 (88) 98 114/74 (87) 08/14/25 07:00 84 17 97/58 (71) 98 120/72 (88) 08/14/25 06:45 92 23 104/66 (79) 98 116/74 (88) 08/14/25 06:30 90 27 115/63 (80) 98 125/75 (92) 08/14/25 06:28 88 21 N/Cannula Low lpm 1.0 24 08/14/25 06:15 88 16 113/68 (83) 99 127/77 (94) 08/14/25 06:00 87 15 102/63 (76) 98 24 120/73 (89) 08/14/25 05:45 87 23 90/62 (71) 97 110/70 (83) 08/14/25 05:30 89 14 99/67 (78) 99 126/78 (94) 08/14/25 05:15 88 17 116/62 (80) 98 115/71 (86) 08/14/25 05:00 84 17 106/65 (79) 99 24 119/73 (88) 08/14/25 04:45 83 30 88/61 (70) 100 107/69 (82) 08/14/25 04:30 91 21 121/58 (79) 97 102/68 (79) 08/14/25 04:15 85 18 101/65 (77) 98 120/75 (90) 08/14/25 04:00 98 Nasal Cannula* 1 24 08/14/25 04:00 98.2 88 19 105/67 (80) 98 24 131/81 (98) 08/14/25 03:45 86 17 95/60 (72) 98 111/71 (84) 08/14/25 03:30 85 17 104/60 (75) 98 111/72 (85) 08/14/25 03:15 86 17 104/62 (76) 98 108/70 (83) 08/14/25 03:00 86 16 97/60 (72) 98 24 109/69 (82) 08/14/25 02:45 87 16 94/58 (70) 100 105/68 (80) LABS: Laboratory: Test 08/14/25 06:51 08/14/25 04:45 08/14/25 00:30 08/13/25 17:58 Range/Units Whole Blood Glucose 294 H 70-110 MG/DL White Blood Count 11.3 H 4.8-10.8 K/uL Red Blood Count 3.77 L 4.00-5.50 MIL/uL Hemoglobin 11.4 L 12.0-16.0 g/dL Hematocrit 32.7 L 36-48 % Mean Corpuscular Volume 86.7 79-99 fL Mean Corpuscular Hemoglobin 30.2 27.0-33.0 pg Mean Corpuscular Hemoglobin Concent 34.9 32.0-36.0 g/dL Red Cell Distribution Width 11.7 11.0-15.5 % Platelet Count 184 130-400 K/uL Mean Platelet Volume 11.0 H 7.5-10.5 fL Immature Granulocyte % (Auto) 0.4 0-1 % Neutrophils (%) (Auto) 72.4 40.0-77.0 % Lymphocytes (%) (Auto) 19.9 L 21.0-51.0 % Monocytes (%) (Auto) 6.8 3.0-13.0 % Eosinophils (%) (Auto) 0.3 0.0-8.0 % Basophils (%) (Auto) 0.2 0.0-5.0 % Neutrophils # (Auto) 8.1 H 1.8-7.7 K/uL Lymphocytes # (Auto) 2.2 1.0-4.8 K/uL Monocytes # (Auto) 0.8 0.1-1.0 K/uL Eosinophils # (Auto) 0.03 0.00-0.70 K/uL Basophils # (Auto) 0.02 0.00-0.20 K/uL Absolute Immature Granulocyte (auto 0.05 0-1 K/uL Nucleated Red Blood Cells 0.0 0.0-0.19 % Activated Partial Thromboplast Time 84.0 #H 26.3-35.5 SEC Sodium Level 136 136-145 mmol/L Potassium Level 3.9 3.5-5.1 mmol/L Chloride Level 103 101-111 mmol/L Carbon Dioxide Level 24 21-32 mmol/L Blood Urea Nitrogen 18 7-18 mg/dL Creatinine 0.6 0.5-1.0 mg/dL Glomerular Filtration Rate Calc 104 >90 mL/min Random Glucose 294 H 70-105 mg/dL Lactic Acid Level 1.3 0.8-2.5 mmol/L Total Calcium 8.2 L 8.5-10.1 mg/dL Magnesium Level 1.70 L 1.80-2.40 mg/dL Total Bilirubin 0.6 # 0.2-1.0 mg/dL Aspartate Amino Transf (AST/SGOT) 113 H 10-37 U/L Alanine Aminotransferase (ALT/SGPT) 23 12-78 U/L Alkaline Phosphatase 75 50-136 U/L Total Protein 6.5 6.0-8.3 g/dL Albumin 2.2 L 3.5-5.0 g/dL Urine Color LIGHT-YELLOW YELLOW Urine Appearance CLEAR CLEAR Urine pH 6.0 5.0-8.0 Urine Specific Purdy 1.023 1.001-1.031 Urine Protein NEGATIVE NEGATIVE mg/dL Urine Glucose (UA) >=1000 H NEGATIVE mg/dL Urine Ketones NEGATIVE NEGATIVE mg/dL Urine Occult Blood SMALL H NEGATIVE Urine Nitrate NEGATIVE NEGATIVE Urine Bilirubin NEGATIVE NEGATIVE mg/dL Urine Urobilinogen 0.2 0.2-1.0 mg/dL Urine Leukocyte Esterase NEGATIVE NEGATIVE Panda/uL Urine RBC 11-25 H 0-1 /HPF Urine WBC 6-10 H 0-1 /HPF Urine Squamous Epithelial Cells RARE 0-2 /HPF Urine Bacteria FEW None Seen /HPF Urine Opiates Screen NEGATIVE NEGATIVE Urine Barbiturates Screen NEGATIVE NEGATIVE Urine Phencyclidine Screen NEGATIVE NEGATIVE Urine Amphetamines Screen NEGATIVE NEGATIVE Urine Benzodiazepines Screen POSITIVE H NEGATIVE Urine Cocaine Screen POSITIVE H NEGATIVE Urine Marijuana (THC) Screen NEGATIVE NEGATIVE Troponin I High Sensitivity 20406 *H 4-50 ng/L Test 08/13/25 17:26 08/13/25 16:31 08/13/25 14:48 Range/Units Kaolin Activated Coagulation Time 268 H 74-137 SEC Hemoglobin A1c 10.7 H 4.0-6.0 % Estimated Average Glucose (eAG) 260 H 70-126 mg/dL Whole Blood Ketones Quantitative 0.2 0.0-0.6 mmol/L C-Reactive Protein, Quantitative 88.60 H 0.5-3.0 mg/L Procalcitonin 0.05 0.05-0.5 ng/mL Direct Bilirubin 0.1 0.0-0.3 mg/dL B-Type Natriuretic Peptide 211 H 0-100 pg/mL Lipase 31 16-77 U/L Current Medications Medications (Trade) Dose Ordered Sig/Elmer Route PRN Reason Start Time Stop Time Status Last Admin Dose Admin Acetaminophen (TYLenol 325MG TAB) 650 mg Q6H PRN PO MILD PAIN (1-3) 08/13/25 16:30 09/12/25 16:29 08/14/25 07:55 650 MG Aspirin (Aspirin 81mg Chew Tab) 81 mg DAILY PO 08/14/25 09:00 09/13/25 08:59 08/14/25 07:55 81 MG Atorvastatin Calcium (LIPItor 40MG) 40 mg HS PO 08/13/25 21:00 09/12/25 20:59 08/13/25 20:19 40 MG Dextrose (D50w) 50 ml AD PRN IV HYPOGLYCEMIA PROTOCOL 08/13/25 20:00 09/12/25 19:59 Dopamine HCl/ Dextrose 250 ml @ 0 mls/hr PROTOCOL IV 08/13/25 16:00 09/12/25 15:59 08/14/25 08:00 8.48 MLS/HR Glucagon (Glucagon 1mg Kit) 1 mg AD PRN IM HYPOGLYCEMIA PROTOCOL 08/13/25 20:00 09/12/25 19:59 Heparin Sodium (Porcine) (HEParin 5,000 UNIT VIAL) *calculation based on ACTUAL B... AD PRN IV HEPARIN PROTOCOL 08/13/25 16:30 09/12/25 16:29 08/13/25 16:18 5,000 UNIT Heparin Sodium/ Dextrose 250 ml @ 0 mls/hr Q6H IV 08/13/25 16:30 09/12/25 16:29 08/13/25 16:31 15 MLS/HR Insulin Glargine (LANtus 100 UNITS/ML 10 ML VIAL) 10 units HS SQ 08/13/25 21:00 08/14/25 06:16 DC 08/13/25 20:21 10 UNITS Insulin Glargine (LANtus 100 UNITS/ML 10 ML VIAL) 20 units DAILY SQ 08/14/25 09:00 09/12/25 20:59 08/14/25 08:01 20 UNITS Insulin Human Regular (humuLIN R 100 UNIT/ML 3ML) INSULIN SLIDING SCAL... ACHS SQ 08/13/25 16:30 09/12/25 16:29 08/14/25 06:58 12 UNIT Magnesium Sulfate 50 ml @ 0 mls/hr PROTOCOL IV 08/13/25 16:30 09/12/25 16:29 08/14/25 06:49 25 MLS/HR Morphine Sulfate (morPHINE 4MG SYG) 2 mg Q6H PRN IVP SEVERE PAIN (7-10) 08/14/25 09:30 08/21/25 09:29 Norepinephrine 250 ml @ 0 mls/hr PROTOCOL IV 08/13/25 15:30 09/12/25 15:29 Ondansetron HCl (zoFRAN 4MG INJ) 4 mg Q6H PRN IVP NAUSEA/VOMITING 08/13/25 16:30 09/12/25 16:29 Pantoprazole Sodium (PROTonix 40MG INJ) 40 mg Q24H IVP 08/13/25 16:30 09/12/25 16:29 08/13/25 20:19 40 MG Potassium Chloride 100 ml @ 100 mls/hr AD PRN IV POTASSIUM PROTOCOL 08/13/25 16:30 09/12/25 16:29 Potassium Chloride (K-Dur/Klor-Con 20meq) 20 meq AD PRN PO POTASSIUM PROTOCOL 08/13/25 16:30 09/12/25 16:29 Potassium Chloride (KCl 10% Elixir 20meq/15ml) 20 meq AD PRN PO POTASSIUM PROTOCOL 08/13/25 16:30 09/12/25 16:29 Sodium Bicarbonate 25 meq/Dextrose 1,000 ml @ 0 mls/hr Q0M IV 08/14/25 00:30 09/13/25 00:29 08/14/25 00:21 14.5 MLS/HR Sodium Bicarbonate 25 meq/Dextrose 1,000 ml @ 0 mls/hr Q0M IVP 08/14/25 00:30 08/14/25 00:15 DC Ticagrelor (BRILinta) 90 mg BID PO 08/14/25 09:00 09/13/25 08:59 08/14/25 07:54 90 MG DIAGNOSTICS / RADIOLOGY: [ ] ASSESSMENT: Cardiogenic shock with lactic acidosis, POA NSTEMI/ACS, POA Complete heart block, POA History of multivessel coronary artery disease, POA History of cocaine use disorder, POA Severe nonketotic hyperglycemia, POA History of to poorly controlled type 2 diabetes mellitus, POA Lactic acidosis, POA History of anemia, POA History of gastritis, POA History of hypertension, POA History of PTSD/anxiety, POA Obesity, POA Medical noncompliance, POA PLAN: Patient will be admitted to ICU Patient has been seen by Cardiology already and will be taken to label tacker for emergent PCI, temporary transvenous pacemaker placement as well as possible MCS support with Impella We will monitor lactic acid trend closely Obtain 2D echocardiogram We will monitor this patient postprocedure closely Consultation with ICU service will be requested Patient will be started on aggressive sliding scale insulin a.c. and HS, we will start patient on basal Lantus We will obtain blood cultures, we will check CRP and procalcitonin, we will check for infection and we will start empiric antibiotics in case of fever or source of infection confirmed We will avoid IV fluids due to underlying cardiogenic shock, will avoid any Beta Blockers We will avoid any antihypertensives due to hypotension on presentation, patient is currently on dopamine drip, we will maintain MAP greater than 65 We will keep NPO and we will follow up this patient postprocedure we will keep patient on Protonix 40 mg IV daily Patient has been started on heparin drip in the ER and has received dual antiplatelet therapy with aspirin and Brilinta, patient will be be maintained on aspirin and heparin gtt post procedure Home medications will be reconciled and updated once available, patient was counseled to quit any cocaine use, patient verbalized understanding We will see how patient progresses in the next 48-72 hours, she remains critically ill Date of service: 08/13/2025 Plan of care was discussed with patient at bedside, critical care minutes: 45 minutes Son Larsen MD, Advanced Care Planning: Which of the following were discussed: Hospice care: Yes __ No _X_ Therapeutic options: Yes _X_ No __ Advance directives: Yes _X_ No __ Other discussions: Discussed with who?: Patient Voluntary nature of this service was explained to the patient? Yes _x_ No __ Amount of time spent: 20 minutes Continue Zosyn Trend WBCs Follow-up cultures O2 nasal cannula as needed Follow up with Critical care, appreciate assistance Continue aspirin, atorvastatin, Brilinta Monitor blood pressure Continue dopamine Follow up with Cardiology -obtain echocardiogram NPO for now Continue GI prophylaxis with pantoprazole No need for IV fluids Trend a.m. BMP Replete electrolytes as necessary Continue heparin drip DVT prophylaxis with heparin Trend a.m. CBC Continue insulin sliding scale Continue Lantus 20 units Daily Full code Case was discussed with patient's nurse at bedside Critical care Attention time greater than 30 minutes CHRISTIAN MACHUCA IV, MD Aug 14, 2025 10:41
--- NOTE | 2025-08-14 11:05 | NUR ---
D/C PLAN CM spoke to patient regarding d/c planning. Patient reports she is independent with ADL's and lives with son. Denies having any DME at home. Uses cane for ambulation. Son to assist in care at home if needed. Patient is uninsured. CM provided community resources packet that includes drug and alcohol cessation resources. Plan for now is to return home to same setting. Addendum: 08/14/25 at 1108 by THONY ALFARO CM Amended: Links added.
--- NOTE | 2025-08-14 11:37 | HMCIMG ---
CHEST 1VW REASON: IMPELLA COMPARISON: Prior study from 08/13/2025 is available. FINDINGS: Single view of the chest was obtained. Lungs are clear. Heart size is normal. There is a right and left ventricular assisted device is in place i.E. Impella There is no pulmonary vascular congestion. Mediastinum and bony thorax appear unremarkable. IMPRESSION: 1. Evidence of airspace consolidation or pulmonary venous congestion. 2. Right and left-sided ventricular assisted device in place..
--- NOTE | 2025-08-14 11:56 | NUR ---
Patient reported shortness of breath and difficulty breathing. currently on 1L NC, o2 sat 99%, heart rate 86. Patient's complaints reported to Tiffanie BERNAL and Dr. Morris in unit. New order received for ABG. Jagruti SILVA made aware via telephone. Patient also requested enema. Per patient it is ok to get ABG first prior to receiving enema.
--- NOTE | 2025-08-14 12:13 | NUR ---
pt complained of SOB, SAT'S 97 ON 3LNC, attempt to draw abg, pt screamed it was to painful and to withdraw the needle and try again later, primary nurse Maqruita FORRESTER notified Addendum: 08/14/25 at 1215 by SHIRIN SHETH, RT RT Amended: Links added.
[2025-08-14 12:42] LABS: ABG BASE EXCESS -0.3 mmol/L (-2.0-3.0); ABG HCO3 22.1 mmol/L (21.0-28.0); ABG OXYGEN SATURATION 98.1 % (94.0-98.0); ABG PCO2 29 mmHg (32-45); ABG PH 7.499 (7.350-7.450); CARBON MONOXIDE 0.2 % (0.5-1.5); PO2, ARTERIAL BG 117.9 mmHg (83.0-108.0); TEMPERATURE, CELSIUS BG 37.0 CELSIUS (35.5-37.0); VENT MODE, BG NC (ROOM AIR)
[2025-08-14] MEDS ORDERED: PROMETHAZINE HCL 25 MG TABLET PO PRN (14:30)
[2025-08-14] MEDS ORDERED: PHARMACY COMMUNICATION MISC PRN (14:30)
--- NOTE | 2025-08-14 16:08 | HMCIMG ---
CHEST 1VW REASON: PICC placement COMPARISON: Prior study from 08/14/2025 and 0 for 48 hours is available. FINDINGS: Single view of the chest was obtained. Lungs are clear. Heart size is normal. There is a right-sided PIC catheter with tip in brachiocephalic vein. There is a right and left ventricular assisted device in place. There is no pulmonary vascular congestion. Mediastinum and bony thorax appear unremarkable. There are surgical clips in the right upper quadrant from prior cholecystectomy. IMPRESSION: 1. No acute cardiac pulmonary process 2. PICC line is in satisfactory position..
[2025-08-15] VITALS (93 sets, daily range): BP systolic 106–147; BP diastolic 64–82; PULSE 53–94; RESP 12–37; TEMP 98–99.1; O2SAT 98–100
--- NOTE | 2025-08-15 01:52 | HMCSR ---
APPROVED REPORT EXAM: Two-dimensional and M-mode echocardiogram with Doppler and color Doppler. INDICATION ICD: Non ST-elevation MS I21.4, Assess impella placement 2D Dimensions RVDd3.4 cmLVEF(%)42.7 (>50%)LVED Vol(simp.)90.0 mL IVSd0.9 (0.7-1.1cm)FS(%)21 %LVES Vol(simp.)42.0 mL LVDd4.0 (3.8-5.6cm)LA (2D)3.3 (1.6-4.0cm)LVEF(%, simp.)53 % PWd1.1 (0.7-1.1cm)Ao Root(2D)3.1 (2.0-3.7cm)LA ESV INDEX (BP)19.50 mL/m2 LVDs3.2 (2.5-4.0cm)LVOT diam2.2 (1.8-2.4cm) IVC diam1.9 cm Deformation Strain Apical 4-11.0 % Apical 2-9.8 % Apical 3-8.3 % Global Strain-9.7 % M-Mode Dimensions EPSS0.8 cm Aortic Valve AoV Vmax0.9 m/Codie Peak GR3.5 mmHgLVOT Vmax0.7 m/s AoV VTI0.1 mAo Mean GR1.7 mmHgLVOT VTI0.10 m JAVIER (VMAX)2.87 cm2Al P1/2T307 msAVA (VTI) 3.4 cm2 Mitral Valve MV E Vmax67.2 cm/sDECEL Time89 ms MV A Vmax86.1 cm/sP 1/2 T37 ms E/A ratio0.8MVA (PHT)6.0 cm2 TDI E/E' Medial9.9E/E' Lateral5.2 Medial E' Peak V6.76 cm/sLateral E' Peak V12.96 cm/s Pulmonary Valve PV Vmax1.2 m/sPV VTI0.19 mPV Mean GR3.8 mmHg PV Peak GR5.9 mmHg Left Ventricle The left ventricle is normal size. There is an Impella catheter seen in the left ventricle. The inlet of the catheter is 3.2 cm from the aortic valve. 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 The mid/apical inferior wall is normal in function. The other willams are normal in function. Mild con centric left ventricular hypertrophy. Left ventricle systolic function is low normal, estimated LVEF 50 to 55%. Indeterminate diastolic function. Right Ventricle The right ventricle is normal size. The right ventricular systolic function is normal. Atria The left atrium size is normal. The right atrium size is normal. Aortic Valve The aortic valve is normal in structure. Trace aortic regurgitation. There is no aortic valvular sten osis. Mitral Valve The mitral valve is normal in structure. Trace mitral regurgitation. There is no mitral valve stenosi s. Tricuspid Valve The tricuspid valve is normal in structure. Trace tricuspid regurgitation. RVSP is normal. Pulmonic Valve Pulmonic valve is not well visualized. Great Vessels The aortic root is normal in size. The IVC is normal in size and collapses >50% with inspiration. Pericardium There is no pericardial effusion. Other Information Quality : Adequate Conclusion The cardiac chambers are normal in size. There is an Impella catheter seen in the left ventricle. The inlet of the catheter is 3.2 cm from th e aortic valve. Mild concentric left ventricular hypertrophy. 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 The mid/apical inferior wall is normal in functi on. The other willams are normal in function. Left ventricle systolic function is low normal, estimated LVEF 50 to 55%. Indeterminate diastolic function. Trace aortic regurgitation. Trace mitral regurgitation. Trace tricuspid regurgitation. PASP is normal. There is no pericardial effusion.
[2025-08-15 04:34] LABS: IMMATURE GRANULOCYTE ABSOLUTE 0.04 K/uL (0-1); NUCLEATED RED BLOOD CELLS 0.0 % (0.0-0.19); PLATELET COUNT (AUTO) 164 K/uL (130-400); RED BLOOD CELL COUNT(AUTO) 3.08 MIL/uL (4.00-5.50); RED CELL DISTRIBUTION WIDTH 11.7 % (11.0-15.5); WHITE BLOOD COUNT (AUTO) 11.0 K/uL (4.8-10.8)
[2025-08-15 04:49] LABS: ASPARTATE AMINOTRANSFERASE 68.0 U/L (10-37); CREATININE 0.4 mg/dL (0.5-1.0); GLOMERULAR FILTR. RATE CALC 115.0 mL/min (>90); GLUCOSE,RANDOM 229.0 mg/dL (70-105); PHOSPHORUS 3.2 mg/dL (2.5-4.9); SODIUM SERUM 137.0 mmol/L (136-145); TOTAL PROTEIN, SERUM 6.2 g/dL (6.0-8.3); UREA NITROGEN, BLOOD 20.0 mg/dL (7-18)
--- NOTE | 2025-08-15 07:23 | CONS ---
CONSULT NOTE: Endocrinology Consult Chief complaint:chest pain and sob Reason for consult:uncontrolled dm-2 DOS: 08/15/25 HISTORY OF PRESENT ILLNESS: This is a 60-year-old female with underlying history of obesity, coronary artery disease, poorly controlled type 2 diabetes mellitus, history of anemia, history of cocaine use, tobacco use disorder, history of CVA in 2008, who presented to the ER for further evaluation of severe substernal chest pain and shortness of breadth. Patient reports having history of cocaine use with last use of cocaine yesterday. She reports having severe substernal chest pain that started today in it has been associated with dizziness, and generalized malaise. She has not been able to follow up with Cardiology as outpatient. She has a previous history of abnormal CT coronary angiography when she was hospitalized in 04/2025 and she was treated medically. With regards to type 2 diabetes mellitus, she reports being on metformin as outpatient. On presentation to the hospital, patient was noted to be hypotensive with blood pressure of 80/60 with heart rate of 40 with EKG showing complete heart block. [place] [address], hemoglobin 12.4, platelet count of 549233. BMP showed sodium of 133, potassium 4.8, chloride of 99, BUN of 21, creatinine 1.0, blood glucose of 403, [place] [address]. Chest x-ray showed no acute infiltrates. Home diabetic regimen: metformin 500 mg bid Hba1c 10.7% glucose runs greater than 200 mg/dl. Lantus units daily and adjust for fasting glucose. REVIEW OF SYSTEMS CONSTITUTIONAL: generalized fatigue, malaise NEUROLOGICAL: Denies headache, amaurosis fugax, motor weakness, sensory deficit, vertigo/spinning sensation, gait abnormalities, or tremors. ENT: No hearing loss, otalgia, otorrhea, rhinitis, rhinorrhea, hoarseness, or sore throat. CARDIOVASCULAR: chest pain, Shortness of breath, dizziness, lightheadedness PULMONARY: Denies any shortness of breath, cough, phlegm/sputum, hemoptysis, pleuritic chest pain. SLEEP: Denies morning headaches, daytime somnolence or napping. Denies difficulty falling asleep, staying asleep, waking from sleep. Denies knowledge of snoring. GASTROINTESTINAL: Denies any type of dysphagia to either liquids or solids. Denies vomiting, pyrosis, early satiety, abdominal pain, diarrhea, constipation, or changes in stool consistency or caliber. Denies coffee-ground emesis, hematem esis, hematochezia, or melanotic stools. GENITOURINARY: Denies frequency, urgency, nocturia, hematuria or incontinence (Storage/Irritative symptoms.) Low urinary stream, straining to void, urinary intermittency or hesitancy, splitting of the voiding stream, terminal dribbling. ENDOCRINOLOGIC: Denies polyuria, polydipsia, polyphagia or heat/cold intolerances. HEMATOLOGIC: Denies thrombophilia/previous clots, or coagulopathy/bleeding disorders. ONCOLOGIC: Denies personal history of malignancy. DERMATOLOGIC: Denies rashes or pruritus. PSYCHIATRIC: Denies any suicidal or homicidal ideation. Denies hallucinations. PAST MEDICAL HISTORY: Coronary artery disease with history of abnormal coronary CT angiography, gastritis, anemia, cocaine use disorder, obesity, PTSD, anxiety disorder, history of NSTEMI in 04/2025, history of CVA in 2008 PAST SURGICAL HISTORY: History of ventral hernia repair 2008, hx of cholecystectomy, hx of C Section PAST SOCIAL HISTORY: Denies active alcohol consumption, intermittently smokes cigarettes as well as has been using cocaine chronically FAMILY HISTORY: Reports family history of heart disease Home medications: Patient does not have list of home medications, family will be bringing list of home medications to be updated Allergies: Patient has allergic reaction to lisinopril Coded Allergies: No Known Drug Allergies (Verified Allergy, Unknown, 05/04/22) lisinopril (Verified Allergy, Unknown, 05/04/22) PHYSICAL EXAM GENERAL APPEARANCE: The patient is awake, appears ill and in mild distress NEUROLOGICAL: Cranial nerves II-XII grossly intact. Motor is 5/5 in bilateral upper and lower extremities proximal to distal. No sensory deficits. HEENT: Face is symmetric. Pupils are equal and reactive. Extraocular movements are intact. NECK: Supple. No JVD. No thyromegaly. No submental, submandibular, pre- /postauricular, occipital or supraclavicular lymphadenopathy. CHEST: Normal chest expansion. No Telemetry. LUNGS: minimal crackles noted of the bilateral lung bases CARDIOVASCULAR: Regular. S1 and S2 normal. No appreciable rubs, murmurs or gallops. ABDOMEN: Soft, nontender, and nondistended. There is no rebound, voluntary guarding, or rigidity. : Deferred. No Coombs. EXTREMITIES: trace edema noted of the bilateral lower extremities SKIN: No skin breakdown. DIAGNOSTICS / RADIOLOGY: SERVICE 24 REASON: cp ORDERING PHYSICIAN: ZORA OCHOA MD PROCEDURE: CXR1VW - CHEST 1VW EXAM: CR Chest, 1 View. CLINICAL HISTORY: cp COMPARISON: 07/08/25 FINDINGS: LUNGS: The lungs show no infiltrate or other acute finding. PLEURAL SPACES: No pleural effusion or pneumothorax. MEDIASTINUM: The cardiomediastinal silhouette is within normal limits. BONES: No aggressive appearing osseous lesion seen. IMPRESSION: No acute cardiopulmonary pathology is evident. /[place] DICTATED BY: BELKIS KURTZ MD DATE: 08/13/251731 ELECTRONICALLY SIGNED BY: BELKIS KURTZ MD DATE: 08/13/251731 ASSESSMENT: uncontrolled DM-2 Home diabetic regimen: metformin 500 mg bid Hba1c 10.7% glucose runs greater than 200 mg/dl. Cardiogenic shock with lactic acidosis, POA patient is on pressors. NSTEMI/ACS, POA Complete heart block, POA History of multivessel coronary artery disease, POA History of cocaine use disorder, POA Severe nonketotic hyperglycemia, POA History of to poorly controlled type 2 diabetes mellitus, POA Lactic acidosis, POA History of anemia, POA History of gastritis, POA History of hypertension, POA History of PTSD/anxiety, POA Obesity, POA Medical noncompliance, POA PLAN: continue Lantus 30 units daily and adjust for fasting glucose. increase Regular insulin to 10 units three times before meals and adjust for post-prandial glucose. Continue medium dose sliding scale insulin. Monitor glucose q x 6 hourly. Continue carb consistent diet. Keep glucose less than 180 mg/dl. Patient will need insulin at discharge. Thanks for allowing me to participate in patient care and will continue to follow up. Vital Signs 08/14/25 08/15/25 08/15/25 16:00 04:08 06:00 Temp 98.8 Pulse 83 Resp 14 B/P (MAP) 121/74 (90) Pulse Ox 100 O2 Delivery Nasal Cannula* O2 Flow Rate 3 FiO2 32 Hematology Labs: Test 08/15/25 04:16 Range/Units White Blood Count 11.0 H 4.8-10.8 K/uL Red Blood Count 3.08 L 4.00-5.50 MIL/uL Hemoglobin 9.5 L 12.0-16.0 g/dL Hematocrit 26.5 L 36-48 % Mean Corpuscular Volume 86.0 79-99 fL Mean Corpuscular Hemoglobin 30.8 27.0-33.0 pg Mean Corpuscular Hemoglobin Concent 35.8 32.0-36.0 g/dL Red Cell Distribution Width 11.7 11.0-15.5 % Platelet Count 164 130-400 K/uL Mean Platelet Volume 11.3 H 7.5-10.5 fL Immature Granulocyte % (Auto) 0.4 0-1 % Neutrophils (%) (Auto) 69.1 40.0-77.0 % Lymphocytes (%) (Auto) 22.2 21.0-51.0 % Monocytes (%) (Auto) 7.0 3.0-13.0 % Eosinophils (%) (Auto) 1.0 0.0-8.0 % Basophils (%) (Auto) 0.3 0.0-5.0 % Neutrophils # (Auto) 7.6 1.8-7.7 K/uL Lymphocytes # (Auto) 2.4 1.0-4.8 K/uL Monocytes # (Auto) 0.8 0.1-1.0 K/uL Eosinophils # (Auto) 0.11 0.00-0.70 K/uL Basophils # (Auto) 0.03 0.00-0.20 K/uL Absolute Immature Granulocyte (auto 0.04 0-1 K/uL Nucleated Red Blood Cells 0.0 0.0-0.19 % Chemistry Labs: Test 08/15/25 06:57 08/15/25 04:16 08/14/25 04:45 08/13/25 17:58 Range/Units Whole Blood Glucose 219 H 70-110 MG/DL Sodium Level 137 136-145 mmol/L Potassium Level 3.7 3.5-5.1 mmol/L Chloride Level 102 101-111 mmol/L Carbon Dioxide Level 26 21-32 mmol/L Blood Urea Nitrogen 20 H 7-18 mg/dL Creatinine 0.4 L 0.5-1.0 mg/dL Glomerular Filtration Rate Calc 115 >90 mL/min Random Glucose 229 H 70-105 mg/dL Total Calcium 8.0 L 8.5-10.1 mg/dL Phosphorus Level 3.2 2.5-4.9 mg/dL Magnesium Level 1.60 L 1.80-2.40 mg/dL Total Bilirubin 0.6 0.2-1.0 mg/dL Aspartate Amino Transf (AST/SGOT) 68 H 10-37 U/L Alanine Aminotransferase (ALT/SGPT) 23 12-78 U/L Alkaline Phosphatase 78 50-136 U/L Total Protein 6.2 6.0-8.3 g/dL Albumin 2.1 L 3.5-5.0 g/dL Lactic Acid Level 1.3 0.8-2.5 mmol/L Thyroid Stimulating Hormone (TSH) 0.39 # 0.36-3.74 uIU/mL Troponin I High Sensitivity 34260 *H 4-50 ng/L Test 08/13/25 16:31 08/13/25 14:48 Range/Units Hemoglobin A1c 10.7 H 4.0-6.0 % Estimated Average Glucose (eAG) 260 H 70-126 mg/dL Whole Blood Ketones Quantitative 0.2 0.0-0.6 mmol/L C-Reactive Protein, Quantitative 88.60 H 0.5-3.0 mg/L Procalcitonin 0.05 0.05-0.5 ng/mL Direct Bilirubin 0.1 0.0-0.3 mg/dL B-Type Natriuretic Peptide 211 H 0-100 pg/mL Lipase 31 16-77 U/L Coagulation Labs: Test 08/15/25 04:16 08/13/25 17:26 Range/Units Activated Partial Thromboplast Time 72.0 #H 26.3-35.5 SEC Kaolin Activated Coagulation Time 268 H 74-137 SEC Current Medications Medications (Trade) Dose Ordered Sig/Elmer Route Start Time Stop Time Status Last Admin Dose Admin Aspirin (Aspirin 81mg Chew Tab) 81 mg DAILY PO 08/14/25 09:00 09/13/25 08:59 08/14/25 07:55 81 MG Atorvastatin Calcium (LIPItor 40MG) 40 mg HS PO 08/13/25 21:00 09/12/25 20:59 08/14/25 20:09 40 MG Ceftriaxone Sodium (Rocephin 2gm Inj) 2 gm Q24H IVPB 08/14/25 11:30 08/24/25 11:29 08/14/25 12:45 2 GM Dopamine HCl/ Dextrose 250 ml @ 0 mls/hr PROTOCOL IV 08/13/25 16:00 09/12/25 15:59 08/14/25 08:00 8.48 MLS/HR Folic Acid (FOLic ACID 1 MG TABLET) 1 mg DAILY PO 08/15/25 09:00 08/17/25 09:01 Heparin Sodium/ Dextrose 250 ml @ 0 mls/hr Q6H IV 08/13/25 16:30 09/12/25 16:29 08/14/25 16:23 8.48 MLS/HR Insulin Glargine (LANtus 100 UNITS/ML 10 ML VIAL) 10 units HS SQ 08/13/25 21:00 08/14/25 06:16 DC 08/13/25 20:21 10 UNITS Insulin Glargine (LANtus 100 UNITS/ML 10 ML VIAL) 20 units DAILY SQ 08/14/25 09:00 09/12/25 20:59 08/14/25 08:01 20 UNITS Insulin Human Regular (humuLIN R 100 UNIT/ML 3ML) 5 unit TIDAC SQ 08/14/25 17:00 09/13/25 16:59 08/15/25 07:03 5 UNIT Insulin Human Regular (humuLIN R 100 UNIT/ML 3ML) INSULIN SLIDING SCAL... ACHS SQ 08/13/25 16:30 09/12/25 16:29 08/15/25 07:02 6 UNIT Magnesium Sulfate 50 ml @ 0 mls/hr PROTOCOL IV 08/13/25 16:30 09/12/25 16:29 08/15/25 06:53 25 MLS/HR Multivitamins Therapeutic (Multivitamin Tablet) 1 tab DAILY PO 08/15/25 09:00 09/14/25 08:59 Norepinephrine 250 ml @ 0 mls/hr PROTOCOL IV 08/13/25 15:30 09/12/25 15:29 Pantoprazole Sodium (PROTonix 40MG INJ) 40 mg Q24H IVP 08/13/25 16:30 09/12/25 16:29 08/14/25 16:22 40 MG Polyethylene Glycol (MIRalax 3350 17 GM POWD.PACK) 17 gm DAILY PO 08/15/25 09:00 09/14/25 08:59 Sodium Bicarbonate 25 meq/Dextrose 1,000 ml @ 0 mls/hr Q0M IV 08/14/25 00:30 09/13/25 00:29 08/14/25 00:21 14.5 MLS/HR Sodium Bicarbonate 25 meq/Dextrose 1,000 ml @ 0 mls/hr Q0M IVP 08/14/25 00:30 08/14/25 00:15 DC Thiamine HCl (Vitamin B-1) 300 mg DAILY IV 08/15/25 09:00 08/17/25 09:01 Ticagrelor (BRILinta) 90 mg BID PO 08/14/25 09:00 08/14/25 21:19 DC 08/14/25 20:09 90 MG CAROLYN BYRNE MD Aug 15, 2025 07:23
[2025-08-15] MEDS: THIAMINE HCL 100 MG/ML 2ML VIAL IV SCH (08:22)
[2025-08-15] MEDS: MULTIVITAMIN TABLET PO SCH (08:22)
[2025-08-15] MEDS: PoTASSium chloRIDE 20MEQ ER 20 MEQ ERTAB PO PRN (08:23)
--- NOTE | 2025-08-15 08:52 | HMCIMG ---
Comparison: Yesterday Findings: The heart is enlarged in size and the lungs are clear. There are no pleural effusions. There is no acute fracture. There is no pneumothorax. IMPRESSION: No acute disease. Cardiomegaly. /[place]
--- NOTE | 2025-08-15 10:38 | PN ---
[facility] PROGRESS NOTE Date of Service: Aug 15, 2025 Time of Service: 10:36 SUBJECTIVE: This is a 60-year-old female with underlying history of obesity, coronary artery disease, poorly controlled type 2 diabetes mellitus, history of anemia, history of cocaine use, tobacco use disorder, history of CVA in 2008, who presented to the ER for further evaluation of severe substernal chest pain and shortness of breadth. Patient reports having history of cocaine use with last use of cocaine yesterday. She reports having severe substernal chest pain that started today in it has been associated with dizziness, and generalized malaise. Pain is 10/1 0 in severity. Patient denies any syncope or fall. She has been having lightheadedness with ambulation. She has not been able to follow up with Cardiology as outpatient. She has a previous history of abnormal CT coronary angiography when she was hospitalized in 04/2025 and she was treated medically. With regards to type 2 diabetes mellitus, she reports being on metformin as ou tpatient. On presentation to the hospital, patient was noted to be hypotensive with blood pressure of 80/60 with heart rate of 40 with EKG showing complete heart block. [place] [address], hemoglobin 12.4, platelet count of 211155. BMP showed sodium of 133, potassium 4.8, chloride of 99, BUN of 21, creatinine 1.0, blood glucose of 403, [place] [address]. Chest x-ray showed no acute infiltrates. Patient will be admitted for further management of cardiogenic shock, NSTEMI, complete heart block with history of poorly controlled type 2 diabetes mellitus. Patient will be emergently taken to the dentures lab technician for cardiac catheterization/ PCI and tentative plan for MCS support. Patient will be admitted to intensive care unit and she remains critically ill. 08/14 patient remains critically ill requiring Impella and dopamine support. UDS has demonstrated benzos and cocaine REVIEW OF SYSTEMS CONSTITUTIONAL: generalized fatigue, malaise NEUROLOGICAL: Denies headache, amaurosis fugax, motor weakness, sensory deficit, vertigo/spinning sensation, gait abnormalities, or tremors. ENT: No hearing loss, otalgia, otorrhea, rhinitis, rhinorrhea, hoarseness, or sore throat. CARDIOVASCULAR: chest pain, Shortness of breath, dizziness, lightheadedness PULMONARY: Denies any shortness of breath, cough, phlegm/sputum, hemoptysis, pleuritic chest pain. SLEEP: Denies morning headaches, daytime somnolence or napping. Denies difficulty falling asleep, staying asleep, waking from sleep. Denies knowledge of snoring. GASTROINTESTINAL: Reports having nausea, Denies any type of dysphagia to either liquids or solids. Denies vomiting, pyrosis, early satiety, abdominal pain, diarrhea, constipation, or changes in stool consistency or caliber. Denies coffee-ground emesis, hematemesis, hematochezia, or melanotic stools. GENITOURINARY: Denies frequency, urgency, nocturia, hematuria or incontinence (Storage/Irritative symptoms.) Low urinary stream, straining to void, urinary intermittency or hesitancy, splitting of the voiding stream, terminal dribbling. ENDOCRINOLOGIC: Denies polyuria, polydipsia, polyphagia or heat/cold intolerances. HEMATOLOGIC: Denies thrombophilia/previous clots, or coagulopathy/bleeding disorders. ONCOLOGIC: Denies personal history of malignancy. DERMATOLOGIC: Denies rashes or pruritus. PSYCHIATRIC: Denies any suicidal or homicidal ideation. Denies hallucinations. PHYSICAL EXAM GENERAL APPEARANCE: The patient is awake, appears ill and in mild distress NEUROLOGICAL: Cranial nerves II-XII grossly intact. Motor is 5/5 in bilateral upper and lower extremities proximal to distal. No sensory deficits. HEENT: Face is symmetric. Pupils are equal and reactive. Extraocular movements are intact. NECK: Supple. No JVD. No thyromegaly. No submental, submandibular, pre- /postauricular, occipital or supraclavicular lymphadenopathy. CHEST: Normal chest expansion. No Telemetry. LUNGS: minimal crackles noted of the bilateral lung bases CARDIOVASCULAR: Regular. S1 and S2 normal. No appreciable rubs, murmurs or gallops. ABDOMEN: Soft, nontender, and nondistended. There is no rebound, voluntary guarding, or rigidity. : Deferred. No Coombs. EXTREMITIES: trace edema noted of the bilateral lower extremities SKIN: No skin breakdown. Vital Signs (last 8hr) Date Time Temp Pulse Resp B/P (MAP) Pulse Ox O2 Delivery O2 Flow Rate FiO2 08/15/25 06:00 83 14 121/74 (90) 100 08/15/25 05:45 76 32 114/68 (83) 99 08/15/25 05:30 79 16 122/73 (89) 99 08/15/25 05:15 87 15 128/75 (92) 100 08/15/25 05:00 77 21 116/70 (85) 99 08/15/25 04:45 77 14 107/66 (80) 100 08/15/25 04:30 82 13 120/73 (89) 100 08/15/25 04:15 76 17 128/74 (92) 100 08/15/25 04:08 100 Nasal Cannula* 3 32 08/15/25 04:00 82 16 117/75 (89) 100 08/15/25 03:45 81 15 113/77 (89) 100 08/15/25 03:30 83 14 122/76 (91) 100 08/15/25 03:15 84 16 136/78 (97) 100 08/15/25 03:00 83 15 129/74 (92) 100 08/15/25 02:45 69 14 119/73 (88) 100 LABS: Laboratory: Test 08/15/25 06:57 08/15/25 04:16 08/14/25 12:40 08/14/25 04:45 Range/Units Whole Blood Glucose 219 H 70-110 MG/DL White Blood Count 11.0 H 4.8-10.8 K/uL Red Blood Count 3.08 L 4.00-5.50 MIL/uL Hemoglobin 9.5 L 12.0-16.0 g/dL Hematocrit 26.5 L 36-48 % Mean Corpuscular Volume 86.0 79-99 fL Mean Corpuscular Hemoglobin 30.8 27.0-33.0 pg Mean Corpuscular Hemoglobin Concent 35.8 32.0-36.0 g/dL Red Cell Distribution Width 11.7 11.0-15.5 % Platelet Count 164 130-400 K/uL Mean Platelet Volume 11.3 H 7.5-10.5 fL Immature Granulocyte % (Auto) 0.4 0-1 % Neutrophils (%) (Auto) 69.1 40.0-77.0 % Lymphocytes (%) (Auto) 22.2 21.0-51.0 % Monocytes (%) (Auto) 7.0 3.0-13.0 % Eosinophils (%) (Auto) 1.0 0.0-8.0 % Basophils (%) (Auto) 0.3 0.0-5.0 % Neutrophils # (Auto) 7.6 1.8-7.7 K/uL Lymphocytes # (Auto) 2.4 1.0-4.8 K/uL Monocytes # (Auto) 0.8 0.1-1.0 K/uL Eosinophils # (Auto) 0.11 0.00-0.70 K/uL Basophils # (Auto) 0.03 0.00-0.20 K/uL Absolute Immature Granulocyte (auto 0.04 0-1 K/uL Nucleated Red Blood Cells 0.0 0.0-0.19 % Activated Partial Thromboplast Time 72.0 #H 26.3-35.5 SEC Sodium Level 137 136-145 mmol/L Potassium Level 3.7 3.5-5.1 mmol/L Chloride Level 102 101-111 mmol/L Carbon Dioxide Level 26 21-32 mmol/L Blood Urea Nitrogen 20 H 7-18 mg/dL Creatinine 0.4 L 0.5-1.0 mg/dL Glomerular Filtration Rate Calc 115 >90 mL/min Random Glucose 229 H 70-105 mg/dL Total Calcium 8.0 L 8.5-10.1 mg/dL Phosphorus Level 3.2 2.5-4.9 mg/dL Magnesium Level 1.60 L 1.80-2.40 mg/dL Total Bilirubin 0.6 0.2-1.0 mg/dL Aspartate Amino Transf (AST/SGOT) 68 H 10-37 U/L Alanine Aminotransferase (ALT/SGPT) 23 12-78 U/L Alkaline Phosphatase 78 50-136 U/L Total Protein 6.2 6.0-8.3 g/dL Albumin 2.1 L 3.5-5.0 g/dL Blood Gas Specimen Type Arterial Arterial Blood pH 7.499 H 7.350-7.450 Arterial Blood Partial Pressure CO2 29 L 32-45 mmHg Arterial Blood Partial Pressure O2 117.9 H 83.0-108.0 mmHg Arterial Blood HCO3 22.1 21.0-28.0 mmol/L Arterial Blood Oxygen Saturation 98.1 H 94.0-98.0 % Arterial Blood Base Excess -0.3 -2.0-3.0 mmol/L Hemoglobin (Blood Gas) 11.1 L 12.0-16.0 g/dL Sodium (Blood Gas) 128 L 136-145 MMOL/L Bedside Potassium (Blood Gas) 3.6 3.4-4.5 MMOL/L Bedside Chloride (Blood Gas) 106 98-107 MMOL/L Bedside Glucose (Blood Gas) 271 H 65-95 MG/DL Bedside Ionized Calcium (Blood Gas) 1.11 L 1.15-1.33 MMOL/L Bedside Lactic Acid (Blood Gas) 1.08 H 0.36-0.75 MMOL/L Blood Gas Temperature 37.0 35.5-37.0 CELSIUS Blood Gas Flow-by 3.00 0.00-15.00 L/min Blood Gas Vent Mode NC ROOM AIR FiO2 32.0 % Blood Gas Specimen Comment RR MINDY Lactic Acid Level 1.3 0.8-2.5 mmol/L Thyroid Stimulating Hormone (TSH) 0.39 # 0.36-3.74 uIU/mL Test 08/14/25 00:30 08/13/25 17:58 08/13/25 17:26 08/13/25 16:31 Range/Units Urine Color LIGHT-YELLOW YELLOW Urine Appearance CLEAR CLEAR Urine pH 6.0 5.0-8.0 Urine Specific [place] 1.023 1.001-1.031 Urine Protein NEGATIVE NEGATIVE mg/dL Urine Glucose (UA) >=1000 H NEGATIVE mg/dL Urine Ketones NEGATIVE NEGATIVE mg/dL Urine Occult Blood SMALL H NEGATIVE Urine Nitrate NEGATIVE NEGATIVE Urine Bilirubin NEGATIVE NEGATIVE mg/dL Urine Urobilinogen 0.2 0.2-1.0 mg/dL Urine Leukocyte Esterase NEGATIVE NEGATIVE Panda/uL Urine RBC 11-25 H 0-1 /HPF Urine WBC 6-10 H 0-1 /HPF Urine Squamous Epithelial Cells RARE 0-2 /HPF Urine Bacteria FEW None Seen /HPF Urine Opiates Screen NEGATIVE NEGATIVE Urine Barbiturates Screen NEGATIVE NEGATIVE Urine Phencyclidine Screen NEGATIVE NEGATIVE Urine Amphetamines Screen NEGATIVE NEGATIVE Urine Benzodiazepines Screen POSITIVE H NEGATIVE Urine Cocaine Screen POSITIVE H NEGATIVE Urine Marijuana (THC) Screen NEGATIVE NEGATIVE Troponin I High Sensitivity 61598 *H 4-50 ng/L Kaolin Activated Coagulation Time 268 H 74-137 SEC Hemoglobin A1c 10.7 H 4.0-6.0 % Estimated Average Glucose (eAG) 260 H 70-126 mg/dL Whole Blood Ketones Quantitative 0.2 0.0-0.6 mmol/L C-Reactive Protein, Quantitative 88.60 H 0.5-3.0 mg/L Procalcitonin 0.05 0.05-0.5 ng/mL Test 08/13/25 14:48 Range/Units Direct Bilirubin 0.1 0.0-0.3 mg/dL B-Type Natriuretic Peptide 211 H 0-100 pg/mL Lipase 31 16-77 U/L Current Medications Medications (Trade) Dose Ordered Sig/Elmer Route PRN Reason Start Time Stop Time Status Last Admin Dose Admin Acetaminophen (TYLenol 325MG TAB) 650 mg Q6H PRN PO MILD PAIN (1-3) 08/13/25 16:30 09/12/25 16:29 08/14/25 07:55 650 MG Acetaminophen (TYLenol 500MG TAB) 500 mg Q6H PRN PO TEMP < 101.1 AND/OR HEADACHE 08/14/25 14:30 09/13/25 14:29 Aspirin (Aspirin 81mg Chew Tab) 81 mg DAILY PO 08/14/25 09:00 09/13/25 08:59 08/15/25 08:23 81 MG Atorvastatin Calcium (LIPItor 40MG) 40 mg HS PO 08/13/25 21:00 09/12/25 20:59 08/14/25 20:09 40 MG Ceftriaxone Sodium (Rocephin 2gm Inj) 2 gm Q24H IVPB 08/14/25 11:30 08/24/25 11:29 08/14/25 12:45 2 GM Chlordiazepoxide HCl (LIBrium 25 MG CAP) 25 mg Q2H PRN PO ALCOHOL WITHDRAWAL PROTOCOL 08/14/25 14:30 08/21/25 14:29 Chlordiazepoxide HCl (LIBrium 25 MG CAP) 50 mg Q1H PRN PO ALCOHOL WITHDRAWAL PROTOCOL 08/14/25 14:30 08/21/25 14:29 Dextrose (D50w) 50 ml AD PRN IV HYPOGLYCEMIA PROTOCOL 08/13/25 20:00 09/12/25 19:59 Docusate Sodium (COLace 100MG CAP) 100 mg BID PRN PO CONSTIPATION 08/14/25 11:00 09/13/25 10:59 Dopamine HCl/ Dextrose 250 ml @ 0 mls/hr PROTOCOL IV 08/13/25 16:00 09/12/25 15:59 08/14/25 08:00 8.48 MLS/HR Folic Acid (FOLic ACID 1 MG TABLET) 1 mg DAILY PO 08/15/25 09:00 08/17/25 09:01 08/15/25 08:23 1 MG Glucagon (Glucagon 1mg Kit) 1 mg AD PRN IM HYPOGLYCEMIA PROTOCOL 08/13/25 20:00 09/12/25 19:59 Heparin Sodium (Porcine) (HEParin 5,000 UNIT VIAL) *calculation based on ACTUAL B... AD PRN IV HEPARIN PROTOCOL 08/13/25 16:30 09/12/25 16:29 08/13/25 16:18 5,000 UNIT Heparin Sodium/ Dextrose 250 ml @ 0 mls/hr Q6H IV 08/13/25 16:30 09/12/25 16:29 08/14/25 16:23 8.48 MLS/HR Insulin Glargine (LANtus 100 UNITS/ML 10 ML VIAL) 10 units HS SQ 08/13/25 21:00 08/14/25 06:16 DC 08/13/25 20:21 10 UNITS Insulin Glargine (LANtus 100 UNITS/ML 10 ML VIAL) 20 units DAILY SQ 08/14/25 09:00 08/15/25 07:24 DC 08/14/25 08:01 20 UNITS Insulin Glargine (LANtus 100 UNITS/ML 10 ML VIAL) 30 units DAILY SQ 08/15/25 09:00 09/14/25 08:59 08/15/25 08:28 30 UNITS Insulin Human Regular (humuLIN R 100 UNIT/ML 3ML) 5 unit TIDAC SQ 08/14/25 17:00 08/15/25 07:24 DC 08/15/25 07:03 5 UNIT Insulin Human Regular (humuLIN R 100 UNIT/ML 3ML) 8 unit TIDAC SQ 08/15/25 07:30 09/14/25 07:29 08/15/25 08:25 8 UNIT Insulin Human Regular (humuLIN R 100 UNIT/ML 3ML) INSULIN SLIDING SCAL... ACHS SQ 08/13/25 16:30 09/12/25 16:29 08/15/25 07:02 6 UNIT Magnesium Sulfate 50 ml @ 0 mls/hr PROTOCOL IV 08/13/25 16:30 09/12/25 16:29 08/15/25 06:53 25 MLS/HR Morphine Sulfate (morPHINE 4MG SYG) 2 mg Q6H PRN IVP SEVERE PAIN (7-10) 08/14/25 09:30 08/21/25 09:29 08/15/25 08:21 2 MG Multivitamins Therapeutic (Multivitamin Tablet) 1 tab DAILY PO 08/15/25 09:00 09/14/25 08:59 08/15/25 08:22 1 TAB Norepinephrine 250 ml @ 0 mls/hr PROTOCOL IV 08/13/25 15:30 09/12/25 15:29 Ondansetron HCl (zoFRAN 4MG INJ) 4 mg Q4H PRN IV NAUSEA 08/14/25 14:30 09/13/25 14:29 08/14/25 14:17 4 MG Ondansetron HCl (zoFRAN 4MG INJ) 4 mg Q6H PRN IVP NAUSEA/VOMITING 08/13/25 16:30 08/14/25 14:08 DC Pantoprazole Sodium (PROTonix 40MG INJ) 40 mg Q24H IVP 08/13/25 16:30 09/12/25 16:29 08/14/25 16:22 40 MG Pharmacy Profile Note (Pharmacy Communication) 1 each PROTOCOL PRN MISC ETOH Withdrawal Score changes 08/14/25 14:30 08/14/25 14:08 DC Polyethylene Glycol (MIRalax 3350 17 GM POWD.PACK) 17 gm DAILY PO 08/15/25 09:00 09/14/25 08:59 08/15/25 08:23 17 GM Potassium Chloride 100 ml @ 100 mls/hr AD PRN IV POTASSIUM PROTOCOL 08/13/25 16:30 09/12/25 16:29 Potassium Chloride (K-Dur/Klor-Con 20meq) 20 meq AD PRN PO POTASSIUM PROTOCOL 08/13/25 16:30 09/12/25 16:29 08/15/25 08:23 20 MEQ Potassium Chloride (KCl 10% Elixir 20meq/15ml) 20 meq AD PRN PO POTASSIUM PROTOCOL 08/13/25 16:30 09/12/25 16:29 Promethazine HCl (Phenergan) 25 mg Q6H PRN PO NAUSEA 08/14/25 14:30 09/13/25 14:29 Sodium Bicarbonate 25 meq/Dextrose 1,000 ml @ 0 mls/hr Q0M IV 08/14/25 00:30 09/13/25 00:29 08/14/25 00:21 14.5 MLS/HR Sodium Bicarbonate 25 meq/Dextrose 1,000 ml @ 0 mls/hr Q0M IVP 08/14/25 00:30 08/14/25 00:15 DC Thiamine HCl (Vitamin B-1) 300 mg DAILY IV 08/15/25 09:00 08/17/25 09:01 08/15/25 08:22 300 MG Ticagrelor (BRILinta) 90 mg BID PO 08/14/25 09:00 08/14/25 21:19 DC 08/14/25 20:09 90 MG DIAGNOSTICS / RADIOLOGY: [ ] ASSESSMENT: Cardiogenic shock with lactic acidosis, POA NSTEMI/ACS, POA Complete heart block, POA History of multivessel coronary artery disease, POA History of cocaine use disorder, POA Severe nonketotic hyperglycemia, POA History of to poorly controlled type 2 diabetes mellitus, POA Lactic acidosis, POA History of anemia, POA History of gastritis, POA History of hypertension, POA History of PTSD/anxiety, POA Obesity, POA Medical noncompliance, POA PLAN: Continue ceftriaxone Trend WBCs Follow-up blood cultures O2 nasal cannula as needed Follow up with Critical care, appreciate assistance Continue aspirin, atorvastatin, Brilinta Monitor blood pressure Continue dopamine Follow up with Cardiology -follow up echocardiogram Clear liquid diet Continue GI prophylaxis with pantoprazole No need for IV fluids Trend a.m. BMP Replete electrolytes as necessary Continue heparin drip DVT prophylaxis with heparin Trend a.m. CBC Follow up With endocrinology Continue insulin sliding scale Continue Lantus 20 units Daily Full code Case was discussed with patient's nurse at bedside Critical care Attention time greater than 30 minutes CHRISTIAN MACHUCA IV, MD Aug 15, 2025 10:38
--- NOTE | 2025-08-15 10:52 | CONS ---
TIME: 09:00 a.m. HISTORY OF PRESENT ILLNESS: The patient is a 60-year-old female who came in with a non-STEMI. 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 Was found to have three-vessel disease. Cardiac surgery was consulted for further management. PHYSICAL EXAMINATION: NEUROLOGIC: The patient is alert and oriented. CARDIAC: S1, S2, regular rate and rhythm. RESPIRATORY: Clear to auscultation bilaterally. ASSESSMENT AND PLAN: This is a 60-year-old presenting with non-ST elevation myocardial infarction, cardiogenic shock. Currently on dopamine intermediate dose, has the Impella device at P7 flowing 3 liters; however, she is alert and oriented. I explained that in the upcoming days she will need surgery. She was loaded with Brilinta on 08/14/2025, last dose, so at this point we have to wait a few days to perform the operation, but she should be able to undergo surgery later this week. Thank you very much for the consultation. TID: [id number] RECEIPT: [id number]
--- NOTE | 2025-08-15 11:10 | PN ---
[facility] PROGRESS NOTE Date Patient Seen: Aug 15, 2025 Time of Visit: 11:06 Supervising Physician: Vinayak Redd MD Consulting Physician: Hospitalist Outpatient Specialists: [ ] Inpatient Consults: [ ] PROBLEM LIST: Acute hypoxic respiratory failure, POA NSTEMI, POA Cardiogenic shock SCAI stage D status post cardiac catheterization with multivessel disease, Impella placement POA Complete heart block, status post transvenous temporary pacemaker placement POA CAD, with multivessel disease, POA Lactic acidosis, likely from cardiogenic shock DM type 2, with hyperglycemia, poorly controlled, HGB A1c of 10.7 POA Hyponatremia, POA Cocaine abuse, POA Tobacco use, current day smoker usually consume six sticks per day History of hypertension, currently on Impella device History of CVA Chronic constipation INTERVAL HISTORY: Patient is awake alert and oriented x3. Currently on dopamine at 2.5 mcg/kg per minute, and MCS support with the Impella at P 7. Urine output of 1.7 L, with a balance of-697 mL. On laboratory white count is 11.0 hemoglobin 9.5 hematocrit 26.5 platelet count of 164 K. chemistries shows a creatinine 0.4 GFR of 115 BUN of 20. Glucose of 229 mg/dL magnesium 1.60. Electrolytes covered per protocol. Patient denies any chest pain palpitations or shortness breath at this time. CV surgery plans for CABG for later this week due to patient received loading Brilinta on 08/14/25. REVIEW OF SYSTEMS: 12 point ROS reviewed with patient. Pertinent positives mentioned above. Otherwise negative. PHYSICAL EXAM: GENERAL: alert, weak, awake oriented x 3 HEENT: EOMI, Sclera non icteric, moist mucosa NECK: Supple, no JVD, trachea midline LUNGS: Clear breath sounds bilaterally. No wheezes HEART: Sinus Zay in the 40s, Normal S1 and S2, without murmurs ABD: Abdomen soft, nontender. Bowel sounds present EXT: No clubbing cyanosis or edema NEURO: Alert and oriented to person, follows commands Vital Signs (last 8hr) Date Time Temp Pulse Resp B/P (MAP) Pulse Ox O2 Delivery O2 Flow Rate FiO2 08/15/25 06:00 83 14 121/74 (90) 100 08/15/25 05:45 76 32 114/68 (83) 99 08/15/25 05:30 79 16 122/73 (89) 99 08/15/25 05:15 87 15 128/75 (92) 100 08/15/25 05:00 77 21 116/70 (85) 99 08/15/25 04:45 77 14 107/66 (80) 100 08/15/25 04:30 82 13 120/73 (89) 100 08/15/25 04:15 76 17 128/74 (92) 100 08/15/25 04:08 100 Nasal Cannula* 3 32 08/15/25 04:00 82 16 117/75 (89) 100 08/15/25 03:45 81 15 113/77 (89) 100 08/15/25 03:30 83 14 122/76 (91) 100 08/15/25 03:15 84 16 136/78 (97) 100 LABS: Hematology Labs: Test 08/15/25 04:16 Range/Units White Blood Count 11.0 H 4.8-10.8 K/uL Red Blood Count 3.08 L 4.00-5.50 MIL/uL Hemoglobin 9.5 L 12.0-16.0 g/dL Hematocrit 26.5 L 36-48 % Mean Corpuscular Volume 86.0 79-99 fL Mean Corpuscular Hemoglobin 30.8 27.0-33.0 pg Mean Corpuscular Hemoglobin Concent 35.8 32.0-36.0 g/dL Red Cell Distribution Width 11.7 11.0-15.5 % Platelet Count 164 130-400 K/uL Mean Platelet Volume 11.3 H 7.5-10.5 fL Immature Granulocyte % (Auto) 0.4 0-1 % Neutrophils (%) (Auto) 69.1 40.0-77.0 % Lymphocytes (%) (Auto) 22.2 21.0-51.0 % Monocytes (%) (Auto) 7.0 3.0-13.0 % Eosinophils (%) (Auto) 1.0 0.0-8.0 % Basophils (%) (Auto) 0.3 0.0-5.0 % Neutrophils # (Auto) 7.6 1.8-7.7 K/uL Lymphocytes # (Auto) 2.4 1.0-4.8 K/uL Monocytes # (Auto) 0.8 0.1-1.0 K/uL Eosinophils # (Auto) 0.11 0.00-0.70 K/uL Basophils # (Auto) 0.03 0.00-0.20 K/uL Absolute Immature Granulocyte (auto 0.04 0-1 K/uL Nucleated Red Blood Cells 0.0 0.0-0.19 % Chemistry Labs: Test 08/15/25 06:57 08/15/25 04:16 08/14/25 04:45 08/13/25 17:58 Range/Units Whole Blood Glucose 219 H 70-110 MG/DL Sodium Level 137 136-145 mmol/L Potassium Level 3.7 3.5-5.1 mmol/L Chloride Level 102 101-111 mmol/L Carbon Dioxide Level 26 21-32 mmol/L Blood Urea Nitrogen 20 H 7-18 mg/dL Creatinine 0.4 L 0.5-1.0 mg/dL Glomerular Filtration Rate Calc 115 >90 mL/min Random Glucose 229 H 70-105 mg/dL Total Calcium 8.0 L 8.5-10.1 mg/dL Phosphorus Level 3.2 2.5-4.9 mg/dL Magnesium Level 1.60 L 1.80-2.40 mg/dL Total Bilirubin 0.6 0.2-1.0 mg/dL Aspartate Amino Transf (AST/SGOT) 68 H 10-37 U/L Alanine Aminotransferase (ALT/SGPT) 23 12-78 U/L Alkaline Phosphatase 78 50-136 U/L Total Protein 6.2 6.0-8.3 g/dL Albumin 2.1 L 3.5-5.0 g/dL Lactic Acid Level 1.3 0.8-2.5 mmol/L Thyroid Stimulating Hormone (TSH) 0.39 # 0.36-3.74 uIU/mL Troponin I High Sensitivity 61189 *H 4-50 ng/L Test 08/13/25 16:31 08/13/25 14:48 Range/Units Hemoglobin A1c 10.7 H 4.0-6.0 % Estimated Average Glucose (eAG) 260 H 70-126 mg/dL Whole Blood Ketones Quantitative 0.2 0.0-0.6 mmol/L C-Reactive Protein, Quantitative 88.60 H 0.5-3.0 mg/L Procalcitonin 0.05 0.05-0.5 ng/mL Direct Bilirubin 0.1 0.0-0.3 mg/dL B-Type Natriuretic Peptide 211 H 0-100 pg/mL Lipase 31 16-77 U/L Coagulation Labs: Test 08/15/25 04:16 08/13/25 17:26 Range/Units Activated Partial Thromboplast Time 72.0 #H 26.3-35.5 SEC Kaolin Activated Coagulation Time 268 H 74-137 SEC DIAGNOSTICS / RADIOLOGY RESULTS: [facility] [address] [place] [address] IMAGING REPORT Signed PATIENT: LUL ARTHUR MR#: [id number] : 1965 SEX: F AGE: 60 LOCATION: 2CH ORDER 230 STATUS: ADM IN REPORT#: [id number] SERVICE 06 REASON: hypoxic resp failure ORDERING PHYSICIAN: OLIVER KONG PROCEDURE: CXR1VW - CHEST 1VW Comparison: Yesterday Findings: The heart is enlarged in size and the lungs are clear. There are no pleural effusions. There is no acute fracture. There is no pneumothorax. IMPRESSION: No acute disease. Cardiomegaly. /[place] DICTATED BY: BELKIS KURTZ MD DATE: 08/15/25950 ELECTRONICALLY SIGNED BY: BELKIS KURTZ MD DATE: 08/15/25950 PLAN Continue ICU care Complete bedrest for now Wean O2 as tolerated CLEAR LIQUID DIET FOLLOW CARDIOLOGY recommendations Glucose goal 82 180 mg/dL Keep SBP less than 160 Neurovascular checks CIWA protocol Bowel regimen NEURO: Minimize central acting medications as possible. Fall Precautions. Well lighted room through the day and minimize interruptions through the night to prevent acute delirium. PULMONARY: Supplemental 02 as needed Titrate Fio2 to keep Spo2 > or = 90% DuoNebs and CPT as needed IS hourly while awake for pulmonary hygiene CARDIOVASCULAR: Follow hemodynamics. Titrate vasopressor to keep MAP >65 or systolic blood pressure >95mmHg DIPS: Dopamine wean as tolerated to maintain perfusion map above 65 Heparin gtt LINES: Peripheral IV CVP Impella GI & NUTRITION: Continue nutritional support Aspirations precautions Prokinetic agents and laxatives as needed Clear liquid diet as tolerated KIDNEYS & ELECTROLYTES: Strict monitoring of intake and output Daily weights Avoid nephrotoxic agents Monitor electrolytes and replace as needed Goal urine output of 30mL/hr or 0.5mL/kg/hr Urine output 2.3 L I&O balance-1.9 L ENDOCRINE: Maintain blood glucose between 100-180 at all times. Insulin sliding scale for blood glucose management INFECTIOUS DISEASE: Trend temperature. Astudillo-culture if febrile. Micro: [ ] Urine culture Blood culture Antibiotics: [ ] Rocephin HEMATOLOGY & COAGULATION: Monitor H&H. Keep Hgb > 7 Transfuse 1 unit of PRBC for Hgb < 7 Transfuse 1 pack of platelets of platelets < 20, 000 Watch for any signs and symptoms of bleeding SKIN: Pressure ulcer prevention per facility protocol Rehab: PT/OT Prophylaxis: GI: PPI DVT: SCDs patient on heparin drip Code Status: Full Resuscitation Disposition: ICU Other: Total patient care time exceeds 35 minutes excluding all procedures. ATTESTATION BY PHYSICIAN I reviewed the documentation, medical decision making, and treatment plan as noted by the mid-level provider above. I agree with the findings and plan of care. Vinayak Redd MD, [facility] Aug 15, 2025 11:10
--- NOTE | 2025-08-15 13:31 | PN ---
This is a 52-year-old female with a history of coronary artery disease, hypertension, type 2 diabetes mellitus, history of CVA in 2008 and polysubstance abuse with tobacco, cocaine and benzodiazepines. She was admitted 08/13/2025 secondary to non-STEMI with cardiogenic shock and complete heart block. She underwent left heart catheterization 08/13/2025 which showed multivessel coronary artery disease with attempted PCI to the 100% distal RCA occlusion (unable to cross) with placement of Impella and transvenous pacemaker via right common femoral vein. Echocardiogram 08/14/2025 shows an ejection fraction of 50-55% with the basal inferior wall aneurysmal and akinetic, mid/apical inferior wall normal, mild LVH, Impella seen in left ventricle 3.2 cm from aortic valve. Urine drug screen was positive for cocaine and benzodiazepines. She is pending CABG. She is currently in sinus rhythm with a first-degree AV block and frequent PACs. Her most recent blood pressure is 110/69. Chest x-ray shows cardiomegaly with clear lungs. White blood count 11.0, hemoglobin 9.5, hematocrit 26.5, platelets 164, creatinine 0.4, potassium 3.7, magnesium 1.60. Blood cultures with Gram- positive cocci in clusters in one of two sets. Urine culture shows Gram- negative rods. She denies chest pain, shortness of breath, dizziness or palpitations. She does report mild abdominal discomfort which she attributes to difficulty with having bowel movements while lying flat. On exam, she is in no acute distress, regular rate and rhythm, lungs are clear to auscultation bilaterally. Assessment: 1. Non-STEMI. 2. Cardiogenic shock stage D. 3. Complete heart block, resolved. 4. First-degree AV block. 5. 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 6. Bacteremia secondary to Gram-positive cocci in clusters, awaiting ID/susceptibility. 7. Urinary tract infection secondary to Gram-negative rods. 8. Polysubstance abuse. 9. Remote CVA in 2008. Plan: 1. She was admitted for non-STEMI with cardiogenic shock stage D and complete heart block (resolved). She underwent placement of Impella as well as transvenous pacemaker. She is on IV dopamine. She is pending CABG. 2. Continue aspirin 81g mg once daily and atorvastatin 40 mg once daily. 3. Check peripheral pulses. 4. We will follow the patient. Vitals/Labs Vital Signs Date Time Temp Pulse Resp B/P (MAP) Pulse Ox O2 Delivery O2 Flow Rate FiO2 08/15/25 12:53 135/80 08/15/25 11:00 65 15 100 08/15/25 08:00 Nasal Cannula* 3 32 08/15/25 08:00 98.4 Laboratory Tests 08/15/25 04:16 BRANDON MEDINA R PAC Aug 15, 2025 13:31
[2025-08-16] VITALS (94 sets, daily range): BP systolic 85–144; BP diastolic 52–92; PULSE 51–102; RESP 12–28; TEMP 98.1–98.6; O2SAT 99
[2025-08-16 04:58] LABS: IMMATURE GRANULOCYTE ABSOLUTE 0.03 K/uL (0-1); NUCLEATED RED BLOOD CELLS 0.0 % (0.0-0.19); PLATELET COUNT (AUTO) 146 K/uL (130-400); RED BLOOD CELL COUNT(AUTO) 2.76 MIL/uL (4.00-5.50); RED CELL DISTRIBUTION WIDTH 11.8 % (11.0-15.5); WHITE BLOOD COUNT (AUTO) 8.2 K/uL (4.8-10.8)
[2025-08-16 05:19] LABS: ASPARTATE AMINOTRANSFERASE 47.0 U/L (10-37); CREATININE 0.5 mg/dL (0.5-1.0); GLOMERULAR FILTR. RATE CALC 109.0 mL/min (>90); GLUCOSE,RANDOM 191.0 mg/dL (70-105); SODIUM SERUM 138.0 mmol/L (136-145); TOTAL PROTEIN, SERUM 6.0 g/dL (6.0-8.3); UREA NITROGEN, BLOOD 23.0 mg/dL (7-18)
--- NOTE | 2025-08-16 11:46 | PN ---
This is a 60-year-old female with a history of coronary artery disease, hypertension, type 2 diabetes mellitus, history of CVA in 2008 and polysubstance abuse with tobacco, cocaine and benzodiazepines. She was admitted 08/13/2025 secondary to non-STEMI with cardiogenic shock and complete heart block. She underwent left heart catheterization 08/13/2025 which showed multivessel coronary artery disease with attempted PCI to the 100% distal RCA occlusion (unable to cross) with placement of Impella and transvenous pacemaker via right common femoral vein. Echocardiogram 08/14/2025 shows an ejection fraction of 50-55% with the basal inferior wall aneurysmal and akinetic, mid/apical inferior wall normal, mild LVH, Impella seen in left ventricle 3.2 cm from aortic valve. Urine drug screen was positive for cocaine and benzodiazepines. She is pending CABG. She is currently in sinus rhythm with a first-degree AV block and frequent PACs in [facility] with non-conducted PACs in [facility]. Her most recent blood pressure is 136/77. Chest x-ray is negative for effusion or acute infiltrates. White blood count 8.2, hemoglobin 8.5, hematocrit 23.8, platelets 146, creatinine 0.5, potassium 3.8, magnesium 1.6. Blood cultures (1/2 sets) shows staph cohnii- urealyticum. Urine culture shows E coli. Cumulative I and O balance is -3162.9 mL. She reports fatigue but denies chest pain, shortness of breath, dizziness or palpitations. She states that she has not had a bowel movement in two days in his concerned about ongoing constipation. On exam, she is in no acute distress, regular rate and rhythm, lungs are clear to auscultation bilaterally. Assessment: 1. Non-STEMI. 2. Cardiogenic shock stage D. 3. Complete heart block, resolved. 4. First-degree AV block. 5. 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 6. Bacteremia (1/2 sets) secondary to Staph cohnii-urealyticum. 7. Urinary tract infection secondary to E coli. 8. Polysubstance abuse. 9. Remote CVA in 2008. Plan: 1. She was admitted for non-STEMI with cardiogenic shock stage D and complete heart block (resolved). She underwent placement of Impella as well as transvenous pacemaker. She is on IV dopamine and IV heparin. She is pending CABG. 2. Her blood pressure is stable. We will begin to wean IV dopamine. 3. Continue aspirin 81 mg once daily and atorvastatin 40 mg once daily. 4. We will follow the patient. Vitals/Labs Vital Signs Date Time Temp Pulse Resp B/P (MAP) Pulse Ox O2 Delivery O2 Flow Rate FiO2 08/16/25 11:00 72 18 136/77 (96) 98 08/16/25 08:00 98.4 Nasal Cannula 2.0 08/16/25 08:00 28 Laboratory Tests 08/16/25 04:51 BRANDON MEDINA PAC Aug 16, 2025 11:46
--- NOTE | 2025-08-16 20:49 | PN ---
[facility] PROGRESS NOTE Date Patient Seen: Aug 16, 2025 Time of Visit: 20:42 Supervising Physician: Jaylon Sapp MD Consulting Physician: Hospitalist Outpatient Specialists: [ ] Inpatient Consults: [ ] PROBLEM LIST: Acute hypoxic respiratory failure, POA NSTEMI, POA Cardiogenic shock SCAI stage D status post cardiac catheterization with multivessel disease, Impella placement POA Complete heart block, status post transvenous temporary pacemaker placement POA CAD, with multivessel disease, POA Lactic acidosis, likely from cardiogenic shock DM type 2, with hyperglycemia, poorly controlled, HGB A1c of 10.7 POA Hyponatremia, POA Cocaine abuse, POA Tobacco use, current day smoker usually consume six sticks per day History of hypertension, currently on Impella device History of CVA Chronic constipation INTERVAL HISTORY: Pt is awake alert and oriented x 3. no chest pain palpitation or SOB. She is pending CABG later this week. She is on MCS with impella at P7 and TVP and dopamine se rate at 2.5 mcg/kg/min. She reports chronic constipation. Will continue Bowel regimen. Urine output of 1.7 L in the last 24 hours. White count has normalized HH stable. Kidneys are good cr 0.5 magnesium 1.6 Covered per protocol. on chest XR lines appear in place. Lungs are clear. will continue to follow cardiology and CV surgery recommendations. REVIEW OF SYSTEMS: 12 point ROS reviewed with patient. Pertinent positives mentioned above. Otherwise negative. PHYSICAL EXAM: GENERAL: alert, weak, awake oriented x 3 HEENT: EOMI, Sclera non icteric, moist mucosa NECK: Supple, no JVD, trachea midline LUNGS: Clear breath sounds bilaterally. No wheezes HEART: TVP Normal S1 and S2, without murmurs ABD: Abdomen soft, nontender. Bowel sounds present EXT: No clubbing cyanosis or edema NEURO: Alert and oriented to person, follows commands Vital Signs (last 8hr) Date Time Temp Pulse Resp B/P (MAP) Pulse Ox O2 Delivery O2 Flow Rate FiO2 08/16/25 18:00 55 18 118/69 (85) 100 08/16/25 17:45 55 20 120/71 (87) 100 08/16/25 17:30 55 20 111/70 (84) 100 08/16/25 17:15 56 17 112/73 (86) 99 08/16/25 17:00 56 23 124/74 (91) 98 08/16/25 16:45 56 14 104/78 (87) 99 08/16/25 16:30 56 15 122/72 (89) 98 08/16/25 16:15 54 17 107/63 (78) 100 08/16/25 16:02 80 21 N/Cannula Low lpm 2.0 28 08/16/25 16:00 98.1 100 Nasal Cannula 2.0 08/16/25 16:00 99 Nasal Cannula* 2 28 08/16/25 16:00 54 19 118/68 (85) 99 08/16/25 15:45 52 20 124/68 (86) 99 08/16/25 15:30 60 19 116/68 (84) 99 08/16/25 15:15 55 20 116/65 (82) 100 08/16/25 15:00 54 19 102/61 (75) 99 08/16/25 14:45 63 19 113/63 (80) 98 08/16/25 14:30 55 15 122/69 (86) 99 08/16/25 14:15 56 23 128/71 (90) 99 08/16/25 14:00 54 19 116/61 (79) 99 08/16/25 13:45 54 19 122/63 (82) 99 08/16/25 13:30 54 17 120/65 (83) 100 08/16/25 13:15 52 20 121/65 (83) 100 08/16/25 13:00 54 27 127/71 (89) 100 08/16/25 12:45 53 17 120/66 (84) 100 LABS: Hematology Labs: Test 08/16/25 04:51 Range/Units White Blood Count 8.2 4.8-10.8 K/uL Red Blood Count 2.76 L 4.00-5.50 MIL/uL Hemoglobin 8.5 L 12.0-16.0 g/dL Hematocrit 23.8 L 36-48 % Mean Corpuscular Volume 86.2 79-99 fL Mean Corpuscular Hemoglobin 30.8 27.0-33.0 pg Mean Corpuscular Hemoglobin Concent 35.7 32.0-36.0 g/dL Red Cell Distribution Width 11.8 11.0-15.5 % Platelet Count 146 130-400 K/uL Mean Platelet Volume 10.8 H 7.5-10.5 fL Immature Granulocyte % (Auto) 0.4 0-1 % Neutrophils (%) (Auto) 57.4 40.0-77.0 % Lymphocytes (%) (Auto) 30.5 21.0-51.0 % Monocytes (%) (Auto) 8.6 3.0-13.0 % Eosinophils (%) (Auto) 2.9 0.0-8.0 % Basophils (%) (Auto) 0.2 0.0-5.0 % Neutrophils # (Auto) 4.7 1.8-7.7 K/uL Lymphocytes # (Auto) 2.5 1.0-4.8 K/uL Monocytes # (Auto) 0.7 0.1-1.0 K/uL Eosinophils # (Auto) 0.24 0.00-0.70 K/uL Basophils # (Auto) 0.02 0.00-0.20 K/uL Absolute Immature Granulocyte (auto 0.03 0-1 K/uL Nucleated Red Blood Cells 0.0 0.0-0.19 % Chemistry Labs: Test 08/16/25 19:20 08/16/25 04:51 08/15/25 04:16 Range/Units Whole Blood Glucose 196 H 70-110 MG/DL Sodium Level 138 136-145 mmol/L Potassium Level 3.8 3.5-5.1 mmol/L Chloride Level 106 101-111 mmol/L Carbon Dioxide Level 24 21-32 mmol/L Blood Urea Nitrogen 23 H 7-18 mg/dL Creatinine 0.5 0.5-1.0 mg/dL Glomerular Filtration Rate Calc 109 >90 mL/min Random Glucose 191 H 70-105 mg/dL Total Calcium 7.7 L 8.5-10.1 mg/dL Magnesium Level 1.60 L 1.80-2.40 mg/dL Total Bilirubin 0.3 0.2-1.0 mg/dL Aspartate Amino Transf (AST/SGOT) 47 H 10-37 U/L Alanine Aminotransferase (ALT/SGPT) 22 12-78 U/L Alkaline Phosphatase 93 50-136 U/L Total Protein 6.0 6.0-8.3 g/dL Albumin 1.9 L 3.5-5.0 g/dL Phosphorus Level 3.2 2.5-4.9 mg/dL Coagulation Labs: Test 08/16/25 06:45 Range/Units Activated Partial Thromboplast Time 55.6 H 26.3-35.5 SEC DIAGNOSTICS / RADIOLOGY RESULTS: [ ] PLAN Continue ICU care Complete bedrest for now Wean O2 as tolerated HH diet FOLLOW CARDIOLOGY recommendations ISS sc Keep SBP less than 160 Neurovascular checks CIWA protocol Bowel regimen CABG pending in the next few days continue IS abg in am NEURO: Minimize central acting medications as possible. Fall Precautions. Well lighted room through the day and minimize interruptions through the night to prevent acute delirium. PULMONARY: Supplemental 02 as needed Titrate Fio2 to keep Spo2 > or = 90% DuoNebs and CPT as needed IS hourly while awake for pulmonary hygiene CARDIOVASCULAR: Follow hemodynamics. Titrate vasopressor to keep MAP >65 or systolic blood pressure >95mmHg DIPS: Dopamine wean as tolerated to maintain perfusion map above 65 Heparin gtt LINES: Peripheral IV CVP Impella GI & NUTRITION: Continue nutritional support Aspirations precautions Prokinetic agents and laxatives as needed Clear liquid diet as tolerated KIDNEYS & ELECTROLYTES: Strict monitoring of intake and output Daily weights Avoid nephrotoxic agents Monitor electrolytes and replace as needed Goal urine output of 30mL/hr or 0.5mL/kg/hr Urine output 2.3 L I&O balance-1.9 L ENDOCRINE: Maintain blood glucose between 100-180 at all times. Insulin sliding scale for blood glucose management INFECTIOUS DISEASE: Trend temperature. Astudillo-culture if febrile. Micro: [ ] Urine culture Blood culture Antibiotics: [ ] Rocephin HEMATOLOGY & COAGULATION: Monitor H&H. Keep Hgb > 7 Transfuse 1 unit of PRBC for Hgb < 7 Transfuse 1 pack of platelets of platelets < 20, 000 Watch for any signs and symptoms of bleeding SKIN: Pressure ulcer prevention per facility protocol Rehab: PT/OT Prophylaxis: GI: PPI DVT: SCDs patient on heparin drip Code Status: Full Resuscitation Disposition: ICU Other: Total patient care time exceeds 35 minutes excluding all procedures. ATTESTATION BY PHYSICIAN The patient has been seen and evaluated, the case has been discussed with the REGISTERED RADIATION THERAPIST, I agree with the clinical findings and plan of care. Jaylon Sapp MD, [facility] Aug 16, 2025 20:49
--- NOTE | 2025-08-16 21:47 | NUR ---
INSULIN PER [facility] [employer],OK TO HOLD PM DOSE OF NEW ORDER OF SLIDING SCALE LISPRO AND COVER APPROPRIATELY TO SLIDING SCALE IN AM.
--- NOTE | 2025-08-16 22:57 | PN ---
Endocrinology DOS: 08/16/25 subjective: on dopamine and heparin drip. cardiology following. pacemaker and impella placed. Home diabetic regimen: metformin 500 mg bid Hba1c 10.7% glucose runs greater than 200 mg/dl. REVIEW OF SYSTEMS CONSTITUTIONAL: generalized fatigue, malaise NEUROLOGICAL: Denies headache, amaurosis fugax, motor weakness, sensory deficit, vertigo/spinning sensation, gait abnormalities, or tremors. ENT: No hearing loss, otalgia, otorrhea, rhinitis, rhinorrhea, hoarseness, or sore throat. CARDIOVASCULAR: chest pain, Shortness of breath improving PULMONARY: Denies any shortness of breath, cough, phlegm/sputum, hemoptysis, pleuritic chest pain. SLEEP: Denies morning headaches, daytime somnolence or napping. Denies difficulty falling asleep, staying asleep, waking from sleep. Denies knowledge of snoring. GASTROINTESTINAL: Denies any type of dysphagia to either liquids or solids. Denies vomiting, pyrosis, early satiety, abdominal pain, diarrhea, constipation, or changes in stool consistency or caliber. Denies coffee-ground emesis, hematemesis, hematochezia, or melanotic stools. GENITOURINARY: Denies frequency, urgency, nocturia, hematuria or incontinence (Storage/Irritative symptoms.) Low urinary stream, straining to void, urinary intermittency or hesitancy, splitting of the voiding stream, terminal dribbling. ENDOCRINOLOGIC: Denies polyuria, polydipsia, polyphagia or heat/cold intolerances. HEMATOLOGIC: Denies thrombophilia/previous clots, or coagulopathy/bleeding disorders. ONCOLOGIC: Denies personal history of malignancy. DERMATOLOGIC: Denies rashes or pruritus. PSYCHIATRIC: Denies any suicidal or homicidal ideation. Denies hallucinations. PAST MEDICAL HISTORY: Coronary artery disease with history of abnormal coronary CT angiography, gastritis, anemia, cocaine use disorder, obesity, PTSD, anxiety disorder, history of NSTEMI in 04/2025, history of CVA in 2008 PAST SURGICAL HISTORY: History of ventral hernia repair 2008, hx of cholecystectomy, hx of C Section PAST SOCIAL HISTORY: Denies active alcohol consumption, intermittently smokes cigarettes as well as has been using cocaine chronically FAMILY HISTORY: Reports family history of heart disease Home medications: Patient does not have list of home medications, family will be bringing list of home medications to be updated Allergies: Patient has allergic reaction to lisinopril Coded Allergies: No Known Drug Allergies (Verified Allergy, Unknown, 05/04/22) lisinopril (Verified Allergy, Unknown, 05/04/22) DIAGNOSTICS / RADIOLOGY: SERVICE 142 REASON: cp ORDERING PHYSICIAN: ZORA OCHOA MD PROCEDURE: CXR1VW - CHEST 1VW EXAM: CR Chest, 1 View. CLINICAL HISTORY: cp COMPARISON: 07/08/25 FINDINGS: LUNGS: The lungs show no infiltrate or other acute finding. PLEURAL SPACES: No pleural effusion or pneumothorax. MEDIASTINUM: The cardiomediastinal silhouette is within normal limits. BONES: No aggressive appearing osseous lesion seen. IMPRESSION: No acute cardiopulmonary pathology is evident. /[place] DICTATED BY: BELKIS KURTZ MD DATE: 08/13/251731 ELECTRONICALLY SIGNED BY: BELKIS KURTZ MD DATE: 08/13/251731 ASSESSMENT: uncontrolled DM-2 Home diabetic regimen: metformin 500 mg bid Hba1c 10.7% glucose runs greater than 200 mg/dl but improving now. lantus was decreased by primary team. Cardiogenic shock with lactic acidosis, POA cardiology following for possible procedure. NSTEMI/ACS, POA Complete heart block, POA History of multivessel coronary artery disease, POA History of cocaine use disorder, POA Severe nonketotic hyperglycemia, POA History of to poorly controlled type 2 diabetes mellitus, POA Lactic acidosis, POA History of anemia, POA History of gastritis, POA History of hypertension, POA History of PTSD/anxiety, POA Obesity, POA Medical noncompliance, POA PLAN: continue Lantus 30 units daily and adjust for fasting glucose. continue Regular insulin 10 units three times before meals and adjust for post- prandial glucose. Continue medium dose sliding scale insulin. Monitor glucose q x 6 hourly. Continue carb consistent diet. Keep glucose less than 180 mg/dl. Patient will need insulin at discharge. Vitals/Labs Vital Signs Date Time Temp Pulse Resp B/P (MAP) Pulse Ox O2 Delivery O2 Flow Rate FiO2 08/16/25 21:45 53 14 114/73 (87) 99 08/16/25 20:00 Nasal Cannula* 2 28 08/16/25 20:00 98.6 Laboratory Tests 08/16/25 04:51 Medications Current Medications Ondansetron HCl 4 mg ONCE ONCE IVP; Start 08/13/25 at 14:30; Stop 08/13/25 at 14:52; Status DC Sodium Chloride 500 ml @ 0 mls/hr ONCE ONCE IV Last administered on 08/13/25at 15:00; Start 08/13/25 at 14:30; Stop 08/13/25 at 14:31; Status DC Heparin Sodium (Porcine) *calculation based on ACTUAL B... AD PRN IV Last administered on 08/15/25at 20:37; Start 08/13/25 at 16:30; Stop 09/12/25 at 16:29 Heparin Sodium/ Dextrose 250 ml @ 0 mls/hr Q6H IV Last administered on 08/16/25at 11:03; Start 08/13/25 at 16:30; Stop 09/12/25 at 16:29 Norepinephrine 250 ml @ 0 mls/hr PROTOCOL IV; Start 08/13/25 at 15:30; Stop 09/12/25 at 15:29 Dopamine HCl/ Dextrose 250 ml @ As Directed STK-MED ONCE IV; Start 08/13/25 at 15:33; Stop 08/13/25 at 15:33; Status DC Aspirin 325 mg STK-MED ONCE .ROUTE; Start 08/13/25 at 15:34; Stop 08/13/25 at 15:33; Status DC Ticagrelor 180 mg ONCE ONCE PO Last administered on 08/13/25at 16:16; Start 08/13/25 at 16:00; Stop 08/13/25 at 16:01; Status DC Morphine Sulfate 1 mg ONCE ONCE IVP Last administered on 08/13/25at 16:23; Start 08/13/25 at 16:00; Stop 08/13/25 at 16:01; Status DC Ticagrelor 90 mg STK-MED ONCE .ROUTE; Start 08/13/25 at 15:50; Stop 08/13/25 at 15:50; Status DC Dopamine HCl/ Dextrose 250 ml @ 0 mls/hr PROTOCOL IV Last administered on 08/16/25at 16:41; Start 08/13/25 at 16:00; Stop 09/12/25 at 15:59 Aspirin 325 mg ONCE ONCE PO Last administered on 08/13/25at 16:15; Start 08/13/25 at 16:00; Stop 08/13/25 at 16:01; Status DC Lidocaine HCl 20 ml STK-MED ONCE .ROUTE; Start 08/13/25 at 16:12; Stop 08/13/25 at 16:12; Status DC Iohexol 35,000 mg STK-MED ONCE IV; Start 08/13/25 at 16:12; Stop 08/13/25 at 16:12; Status DC Heparin Sodium (Porcine) 10,000 unit STK-MED ONCE .ROUTE; Start 08/13/25 at 16:12; Stop 08/13/25 at 16:12; Status DC Nicardipine HCl 25 mg STK-MED ONCE IV; Start 08/13/25 at 16:12; Stop 08/13/25 at 16:12; Status DC Heparin Sodium/ Sodium Chloride 1,000 ml @ As Directed STK-MED ONCE IV; Start 08/13/25 at 16:12; Stop 08/13/25 at 16:12; Status DC Nitroglycerin 50 mg STK-MED ONCE .ROUTE; Start 08/13/25 at 16:12; Stop 08/13/25 at 16:12; Status DC Pantoprazole Sodium 40 mg Q24H IVP Last administered on 08/16/25at 16:07; Start 08/13/25 at 16:30; Stop 09/12/25 at 16:29 Insulin Human Regular INSULIN SLIDING SCAL... ACHS SQ Last administered on 08/16/25at 20:01; Start 08/13/25 at 16:30; Stop 08/16/25 at 20:46; Status DC Insulin Human Regular 5 unit ONCE ONCE IV; Start 08/13/25 at 16:30; Stop 08/13/25 at 16:31; Status DC Fentanyl Citrate 100 mcg STK-MED ONCE .ROUTE; Start 08/13/25 at 16:26; Stop 08/13/25 at 16:26; Status DC Midazolam HCl 2 mg STK-MED ONCE .ROUTE; Start 08/13/25 at 16:27; Stop 08/13/25 at 16:27; Status DC Acetaminophen 650 mg Q6H PRN PO Last administered on 08/15/25at 20:10; Start 08/13/25 at 16:30; Stop 09/12/25 at 16:29 Ondansetron HCl 4 mg Q6H PRN IVP; Start 08/13/25 at 16:30; Stop 08/14/25 at 14:08; Status DC Potassium Chloride 100 ml @ 100 mls/hr AD PRN IV Last administered on 08/16/25at 16:07; Start 08/13/25 at 16:30; Stop 09/12/25 at 16:29 Potassium Chloride 20 meq AD PRN PO; Start 08/13/25 at 16:30; Stop 09/12/25 at 16:29 Potassium Chloride 20 meq AD PRN PO Last administered on 08/15/25at 08:23; Start 08/13/25 at 16:30; Stop 09/12/25 at 16:29 Magnesium Sulfate 50 ml @ 0 mls/hr PROTOCOL IV Last administered on 08/16/25at 06:03; Start 08/13/25 at 16:30; Stop 09/12/25 at 16:29 Atorvastatin Calcium 40 mg HS PO Last administered on 08/16/25at 20:00; Start 08/13/25 at 21:00; Stop 09/12/25 at 20:59 Heparin Sodium/ Sodium Chloride 500 ml @ As Directed STK-MED ONCE IV; Start 08/13/25 at 17:14; Stop 08/13/25 at 17:14; Status DC Heparin Sodium (Porcine) 10,000 unit STK-MED ONCE .ROUTE; Start 08/13/25 at 18:03; Stop 08/13/25 at 18:03; Status DC Aspirin 81 mg DAILY PO Last administered on 08/16/25at 07:53; Start 08/14/25 at 09:00; Stop 09/13/25 at 08:59 Insulin Glargine 10 units HS SQ Last administered on 08/13/25at 20:21; Start 08/13/25 at 21:00; Stop 08/14/25 at 06:16; Status DC Dextrose 50 ml AD PRN IV; Start 08/13/25 at 20:00; Stop 09/12/25 at 19:59 Glucagon 1 mg AD PRN IM; Start 08/13/25 at 20:00; Stop 09/12/25 at 19:59 Sodium Bicarbonate 25 meq/Dextrose 1,000 ml @ 0 mls/hr Q0M IVP; Start 08/14/25 at 00:30; Stop 08/14/25 at 00:15; Status DC Sodium Bicarbonate 25 meq/Dextrose 1,000 ml @ 0 mls/hr Q0M IV Last administered on 08/14/25at 00:21; Start 08/14/25 at 00:30; Stop 09/13/25 at 00:29 Glycerin 1 supp ONCE ONCE RC Last administered on 08/14/25at 05:56; Start 08/14/25 at 05:00; Stop 08/14/25 at 05:06; Status DC Insulin Glargine 20 units DAILY SQ Last administered on 08/14/25at 08:01; Start 08/14/25 at 09:00; Stop 08/15/25 at 07:24; Status DC Ticagrelor 90 mg BID PO Last administered on 08/14/25at 20:09; Start 08/14/25 at 09:00; Stop 08/14/25 at 21:19; Status DC Morphine Sulfate 2 mg Q6H PRN IVP Last administered on 08/16/25at 20:02; Start 08/14/25 at 09:30; Stop 08/21/25 at 09:29 Polyethylene Glycol 17 gm DAILY PO Last administered on 08/16/25at 07:53; Start 08/15/25 at 09:00; Stop 09/14/25 at 08:59 Docusate Sodium 100 mg BID PRN PO; Start 08/14/25 at 11:00; Stop 09/13/25 at 10:59 Ceftriaxone Sodium 2 gm Q24H IVPB Last administered on 08/16/25at 11:03; Start 08/14/25 at 11:30; Stop 08/24/25 at 11:29 Insulin Human Regular 5 unit TIDAC SQ Last administered on 08/15/25at 07:03; Start 08/14/25 at 17:00; Stop 08/15/25 at 07:24; Status DC Chlordiazepoxide HCl 25 mg Q2H PRN PO Last administered on 08/16/25at 17:19; Start 08/14/25 at 14:30; Stop 08/21/25 at 14:29 Chlordiazepoxide HCl 50 mg Q1H PRN PO; Start 08/14/25 at 14:30; Stop 08/21/25 at 14:29 Ondansetron HCl 4 mg Q4H PRN IV Last administered on 08/14/25at 14:17; Start 08/14/25 at 14:30; Stop 09/13/25 at 14:29 Promethazine HCl 25 mg Q6H PRN PO; Start 08/14/25 at 14:30; Stop 09/13/25 at 14:29 Acetaminophen 500 mg Q6H PRN PO; Start 08/14/25 at 14:30; Stop 09/13/25 at 14:29 Thiamine HCl 300 mg DAILY IV Last administered on 08/16/25at 07:53; Start 08/15/25 at 09:00; Stop 08/17/25 at 09:01 Folic Acid 1 mg DAILY PO Last administered on 08/16/25at 07:53; Start 08/15/25 at 09:00; Stop 08/17/25 at 09:01 Multivitamins Therapeutic 1 tab DAILY PO Last administered on 08/16/25at 07:52; Start 08/15/25 at 09:00; Stop 09/14/25 at 08:59 Pharmacy Profile Note 1 each PROTOCOL PRN MISC; Start 08/14/25 at 14:30; Stop 08/14/25 at 14:08; Status DC Insulin Glargine 30 units DAILY SQ Last administered on 08/15/25at 08:28; Start 08/15/25 at 09:00; Stop 08/16/25 at 07:19; Status DC Insulin Human Regular 8 unit TIDAC SQ Last administered on 08/15/25at 16:02; Start 08/15/25 at 07:30; Stop 08/15/25 at 22:46; Status DC Diphenhydramine HCl 25 mg ONCE ONCE IM; Start 08/15/25 at 21:00; Stop 08/15/25 at 22:52; Status DC Insulin Human Regular 10 unit TIDAC SQ Last administered on 08/16/25at 16:09; Start 08/16/25 at 07:30; Stop 09/15/25 at 07:29 Diphenhydramine HCl 25 mg ONCE PRN IV; Start 08/15/25 at 23:00; Stop 08/17/25 at 22:59 Insulin Glargine 35 units DAILY SQ Last administered on 08/16/25at 08:02; Start 08/16/25 at 09:00; Stop 09/15/25 at 08:59 Bisacodyl 10 mg DAILY RC; Start 08/17/25 at 09:00; Stop 08/20/25 at 08:59 Insulin Human Lispro INSULIN SLIDING SCAL... ACHS SQ; Start 08/16/25 at 21:00; Stop 09/15/25 at 20:59 Insulin Glargine 5 units BID@0730,2100 SQ Last administered on 08/16/25at 21:21; Start 08/16/25 at 21:00; Stop 09/15/25 at 20:59 CAROLYN BYRNE MD Aug 16, 2025 22:57
[2025-08-17] VITALS (101 sets, daily range): BP systolic 83–137; BP diastolic 33–96; PULSE 66–101; RESP 12–40; TEMP 98.1–98.6; O2SAT 92–99
[2025-08-17 03:27] LABS: ABG BASE EXCESS -2.5 mmol/L (-2.0-3.0); ABG HCO3 21.3 mmol/L (21.0-28.0); ABG OXYGEN SATURATION 97.7 % (94.0-98.0); ABG PCO2 33 mmHg (32-45); ABG PH 7.434 (7.350-7.450); CARBON MONOXIDE 1.3 % (0.5-1.5); PO2, ARTERIAL BG 126.8 mmHg (83.0-108.0); TEMPERATURE, CELSIUS BG 37.0 CELSIUS (35.5-37.0); VENT MODE, BG NC (ROOM AIR)
[2025-08-17 03:48] LABS: IMMATURE GRANULOCYTE ABSOLUTE 0.09 K/uL (0-1); NUCLEATED RED BLOOD CELLS 0.0 % (0.0-0.19); PLATELET COUNT (AUTO) 115 K/uL (130-400); RED BLOOD CELL COUNT(AUTO) 2.44 MIL/uL (4.00-5.50); RED CELL DISTRIBUTION WIDTH 11.9 % (11.0-15.5); WHITE BLOOD COUNT (AUTO) 8.2 K/uL (4.8-10.8)
[2025-08-17 04:06] LABS: ASPARTATE AMINOTRANSFERASE 32.0 U/L (10-37); CREATININE 0.4 mg/dL (0.5-1.0); GLOMERULAR FILTR. RATE CALC 115.0 mL/min (>90); GLUCOSE,RANDOM 202.0 mg/dL (70-105); SODIUM SERUM 139.0 mmol/L (136-145); TOTAL PROTEIN, SERUM 5.5 g/dL (6.0-8.3); UREA NITROGEN, BLOOD 18.0 mg/dL (7-18)
--- NOTE | 2025-08-17 07:47 | PN ---
[facility] Cardiology Progress Note CARDIOLOGY PROGRESS NOTE AUGUST 17, 2025 Problems: 1. Non ST-elevation TN complicated by cardiogenic shock and complete heart block status post Impella placement in the right common femoral artery transvenous pacemaker 2. CAD with total occlusion of the right coronary artery unable to cross with a wire , of note the patient had a 30-40% RCA stenosis in April of this year raising possibility of spasm and/or plaque rupture. LV ejection fraction of 50% with hypokinesis of the infero base by echo this admission 3. Cocaine abuse , tox screen positive for cocaine and benzodiazepines 4. Diabetes mellitus type 2 uncontrolled 5. Tobacco dependence 6. Remote CVA 2008 7. Noncompliance history, the patient has been seen in the hospital but has not followed up in the office. 8. Dyslipidemia 9. Urinary tract infection 10. Bacteremia one of two sets possibly contamination 11. Thrombocytopenia I suspect the echo may have been an overestimation as there is akinesis of the infero base. The patient was seen by Cardiothoracic surgery and ultimate plans are to proceed with aortocoronary bypass graft surgery later this week after period of healing from her infarct. Blood pressure is running 95-110 systolic heart rate is in the 90s. White count 8.2 down from 76312 on admission hemoglobin 7.3 platelet count [id number] down from [id number] yesterday and down from [id number] on admission. Potassium 4.0 BUN 18 creatinine 0.6. The patient continues on aspirin atorvastatin folic acid heparin protocol insulin scale pantoprazole. The patient continues with Impella support and low-dose dopamine. She is currently awake alert pain-free. Impella site shows no hematoma. Extremities are warm. Pulses are obtainable by Doppler. We will repeat her CBC to recheck her platelet count and if it is still low I would advise a hematology consultation. Plans are continue supportive measures until she goes to the OR. CHIRAG GATES MD Aug 17, 2025 07:47
[2025-08-17 10:27] LABS: NUCLEATED RED BLOOD CELLS 0.0 % (0.0-0.19); PLATELET COUNT (AUTO) 125.0 K/uL (130-400); RED BLOOD CELL COUNT(AUTO) 2.56 MIL/uL (4.00-5.50); RED CELL DISTRIBUTION WIDTH 12.0 % (11.0-15.5); WHITE BLOOD COUNT (AUTO) 8.7 K/uL (4.8-10.8)
--- NOTE | 2025-08-17 11:06 | PN ---
[facility] PROGRESS NOTE Date Patient Seen: Aug 17, 2025 Time of Visit: 11:06 Supervising Physician: Jaylon Sapp MD Consulting Physician: Hospitalist Outpatient Specialists: [ ] Inpatient Consults: [ ] PROBLEM LIST: Acute hypoxic respiratory failure, POA NSTEMI, POA Cardiogenic shock SCAI stage D status post cardiac catheterization with multivessel disease, Impella placement POA Complete heart block, status post transvenous temporary pacemaker placement POA CAD, with multivessel disease, POA Lactic acidosis, likely from cardiogenic shock Bactermia + Staph Cohni urealyticum POA DM type 2, with hyperglycemia, poorly controlled, HGB A1c of 10.7 POA Hyponatremia, POA Cocaine abuse, POA Acute Cystitis Ecoli+ Tobacco use, current day smoker usually consume six sticks per day History of CVA Chronic constipation INTERVAL HISTORY: Patient is awake alert and oriented x3. Patient has been afebrile with a T-max of 98.2 in the last 24 hours hemodynamically stable saturating 98% only on 1 L via nasal cannula. Continues Impella for MCS support of P 7, CP and dopamine at 1 mcg/kg per minute. Pt awaiting for CABG per L this week. Good urine output 2.3 L/hr. She has a BM x1 today. H&H stable 7.8/22.2 platelet trending down. We will have Hematology consult for eval and recommendations. Patient does continue with the heparin drip. APTT 61.3 currently therapeutic. We will send platelet antibody. Patient is growing E coli in the urine and Blood culture growin staph Cohni 1/2. will send repeat blood cultures for am. REVIEW OF SYSTEMS: 12 point ROS reviewed with patient. Pertinent positives mentioned above. Otherwise negative. PHYSICAL EXAM: GENERAL: alert, weak, awake oriented x 3 HEENT: EOMI, Sclera non icteric, moist mucosa NECK: Supple, no JVD, trachea midline LUNGS: Clear breath sounds bilaterally. No wheezes HEART: TVP Normal S1 and S2, without murmurs ABD: Abdomen soft, nontender. Bowel sounds present EXT: No clubbing cyanosis or edema NEURO: Alert and oriented to person, follows commands Vital Signs (last 8hr) Date Time Temp Pulse Resp B/P (MAP) Pulse Ox O2 Delivery O2 Flow Rate FiO2 08/17/25 09:30 86 20 101/55 (70) 100 08/17/25 09:24 97 16 104/87 (93) 100 08/17/25 09:15 97 16 104/87 (93) 100 08/17/25 09:00 98 20 103/59 (74) 100 08/17/25 08:45 96 18 104/64 (77) 100 08/17/25 08:30 97 26 102/62 (75) 75 08/17/25 08:15 100 25 100/63 (75) 98 08/17/25 08:03 99 Nasal Cannula* 1 24 08/17/25 08:00 92 17 113/63 (80) 99 08/17/25 07:54 97 19 119/73 (88) 97 08/17/25 07:45 97 19 119/73 (88) 97 08/17/25 07:30 92 24 122/74 (90) 97 08/17/25 07:15 92 18 112/74 (87) 98 08/17/25 07:00 98.2 93 16 105/69 (81) 99 08/17/25 06:45 94 14 113/71 (85) 98 08/17/25 06:30 93 14 111/62 (78) 97 08/17/25 06:15 85 16 110/62 (78) 97 08/17/25 06:00 86 14 99/62 (74) 98 08/17/25 05:45 75 14 101/48 (65) 98 08/17/25 05:30 77 17 117/48 (71) 97 08/17/25 05:15 77 12 124/55 (78) 98 08/17/25 05:00 77 12 124/55 (78) 98 08/17/25 04:45 79 17 108/58 (75) 97 08/17/25 04:30 74 14 104/58 (73) 98 08/17/25 04:24 84 15 115/69 (84) 97 08/17/25 04:15 83 18 123/61 (81) 96 08/17/25 04:00 90 16 111/66 (81) 94 08/17/25 04:00 99 Nasal Cannula* 1 24 08/17/25 03:45 76 18 95/79 (84) 97 08/17/25 03:30 78 17 93/79 (84) 95 08/17/25 03:15 70 19 86/81 (83) 96 LABS: Hematology Labs: Test 08/17/25 09:40 08/17/25 03:24 Range/Units White Blood Count 8.7 4.8-10.8 K/uL Red Blood Count 2.56 L 4.00-5.50 MIL/uL Hemoglobin 7.8 L 12.0-16.0 g/dL Hematocrit 22.2 L 36-48 % Mean Corpuscular Volume 86.7 79-99 fL Mean Corpuscular Hemoglobin 30.5 27.0-33.0 pg Mean Corpuscular Hemoglobin Concent 35.1 32.0-36.0 g/dL Red Cell Distribution Width 12.0 11.0-15.5 % Platelet Count 125 L 130-400 K/uL Mean Platelet Volume 11.1 H 7.5-10.5 fL Nucleated Red Blood Cells 0.0 0.0-0.19 % Immature Granulocyte % (Auto) 1.1 H 0-1 % Neutrophils (%) (Auto) 57.9 40.0-77.0 % Lymphocytes (%) (Auto) 29.2 21.0-51.0 % Monocytes (%) (Auto) 8.9 3.0-13.0 % Eosinophils (%) (Auto) 2.7 0.0-8.0 % Basophils (%) (Auto) 0.2 0.0-5.0 % Neutrophils # (Auto) 4.7 1.8-7.7 K/uL Lymphocytes # (Auto) 2.4 1.0-4.8 K/uL Monocytes # (Auto) 0.7 0.1-1.0 K/uL Eosinophils # (Auto) 0.22 0.00-0.70 K/uL Basophils # (Auto) 0.02 0.00-0.20 K/uL Absolute Immature Granulocyte (auto 0.09 0-1 K/uL Chemistry Labs: Test 08/17/25 07:32 08/17/25 03:24 08/16/25 04:51 Range/Units Whole Blood Glucose 211 H 70-110 MG/DL Sodium Level 139 136-145 mmol/L Potassium Level 4.0 3.5-5.1 mmol/L Chloride Level 108 101-111 mmol/L Carbon Dioxide Level 24 21-32 mmol/L Blood Urea Nitrogen 18 7-18 mg/dL Creatinine 0.4 L 0.5-1.0 mg/dL Glomerular Filtration Rate Calc 115 >90 mL/min Random Glucose 202 H 70-105 mg/dL Total Calcium 7.6 L 8.5-10.1 mg/dL Total Bilirubin 0.3 0.2-1.0 mg/dL Aspartate Amino Transf (AST/SGOT) 32 10-37 U/L Alanine Aminotransferase (ALT/SGPT) 16 # 12-78 U/L Alkaline Phosphatase 91 50-136 U/L Total Protein 5.5 L 6.0-8.3 g/dL Albumin 1.8 L 3.5-5.0 g/dL Magnesium Level 1.60 L 1.80-2.40 mg/dL Coagulation Labs: Test 08/17/25 03:24 Range/Units Activated Partial Thromboplast Time 41.6 #H 26.3-35.5 SEC DIAGNOSTICS / RADIOLOGY RESULTS: [[facility] [id number] [place] [address] IMAGING REPORT Signed PATIENT: LUL ARTHUR MR#: [id number] : 1965 SEX: F AGE: 60 LOCATION: [facility] ORDER 2300 STATUS: ADM IN REPORT#: [id number] SERVICE 0600 REASON: hypoxic resp failure ORDERING PHYSICIAN: OLIVER KONG PROCEDURE: CXR1VW - CHEST 1VW EXAM: CHEST RADIOGRAPH, SINGLE VIEW Technique: A single frontal chest radiograph was obtained. As a single-view examination, sensitivity for subtle findings is limited and the apparent size of the cardiac silhouette may be affected by projection and positioning. Clinical Information: Hypoxic respiratory failure. Comparison: Chest radiograph from August 16, 2025 at 5:42 AM Eastern Daylight Time. Findings: The lungs show no focal airspace infiltrate. There is no acute focal pulmonary opacity identified. There is no pleural effusion identified. There is no pneumothorax detected. The cardiac size is within normal limits by this projection. The mediastinal contours are within normal limits. A right peripherally inserted central catheter is present with the tip projecting over the region of the superior vena cava. No aggressive osseous lesion is identified in the visualized structures. No interval change is identified compared with the prior examination.IMPRESSION: 1. No acute cardiopulmonary findings, stable compared to the prior X-ray chest. PICC line in same position as prior. /[place] DICTATED BY: DIONTE LEBRON MD DATE: 08/17/251714 ELECTRONICALLY SIGNED BY: DIONTE LEBRON MD DATE: 08/17/251714 ] PLAN Continue ICU care Complete bedrest for now Wean O2 as tolerated HH diet FOLLOW CARDIOLOGY recommendations ISS sc Keep SBP less than 160 Neurovascular checks CIWA protocol Bowel regimen CABG pending in the next few days continue IS abg in am Add vancomycin per protocol continue rocephin Hematology consult Hep antibody monitor for bleeding repeat blood culture recommend ID consult NEURO: Minimize central acting medications as possible. Fall Precautions. Well lighted room through the day and minimize interruptions through the night to prevent acute delirium. PULMONARY: Supplemental 02 as needed Titrate Fio2 to keep Spo2 > or = 90% DuoNebs and CPT as needed IS hourly while awake for pulmonary hygiene CARDIOVASCULAR: Follow hemodynamics. Titrate vasopressor to keep MAP >65 or systolic blood pressure >95mmHg DIPS: Dopamine wean as tolerated to maintain perfusion map above 65 Heparin gtt LINES: Peripheral IV CVP Impella GI & NUTRITION: Continue nutritional support Aspirations precautions Prokinetic agents and laxatives as needed Clear liquid diet as tolerated KIDNEYS & ELECTROLYTES: Strict monitoring of intake and output Daily weights Avoid nephrotoxic agents Monitor electrolytes and replace as needed Goal urine output of 30mL/hr or 0.5mL/kg/hr Urine output 2.3 L I&O balance-1.9 L ENDOCRINE: Maintain blood glucose between 100-180 at all times. Insulin sliding scale for blood glucose management INFECTIOUS DISEASE: Trend temperature. Astudillo-culture if febrile. Micro: [ ] Urine culture Blood culture Antibiotics: [ ] Rocephin HEMATOLOGY & COAGULATION: Monitor H&H. Keep Hgb > 7 Transfuse 1 unit of PRBC for Hgb < 7 Transfuse 1 pack of platelets of platelets < 20, 000 Watch for any signs and symptoms of bleeding SKIN: Pressure ulcer prevention per facility protocol Rehab: PT/OT Prophylaxis: GI: PPI DVT: SCDs patient on heparin drip Code Status: Full Resuscitation Disposition: ICU Other: Total patient care time exceeds 35 minutes excluding all procedures. ATTESTATION BY PHYSICIAN The patient has been seen and evaluated, the case has been discussed with the DRY GOODS INSPECTOR, I agree with the clinical findings and plan of care. Jaylon Sapp MD, [facility] Aug 17, 2025 11:06
--- NOTE | 2025-08-17 11:32 | PN ---
[facility] PROGRESS NOTE Date of Service: Aug 17, 2025 Time of Service: 11:25 SUBJECTIVE: This is a 60-year-old female with underlying history of obesity, coronary artery disease, poorly controlled type 2 diabetes mellitus, history of anemia, history of cocaine use, tobacco use disorder, history of CVA in 2008, who presented to the ER for further evaluation of severe substernal chest pain and shortness of breadth. Patient reports having history of cocaine use with last use of cocaine yesterday. She reports having severe substernal chest pain that started today in it has been associated with dizziness, and generalized malaise. Pain is 10/ 0 in severity. Patient denies any syncope or fall. She has been having lightheadedness with ambulation. She has not been able to follow up with Cardiology as outpatient. She has a previous history of abnormal CT coronary angiography when she was hospitalized in 04/2025 and she was treated medically. With regards to type 2 diabetes mellitus, she reports being on metformin as ou tpatient. On presentation to the hospital, patient was noted to be hypotensive with blood pressure of 80/60 with heart rate of 40 with EKG showing complete heart block. [place] [address], hemoglobin 12.4, platelet count of 844734. BMP showed sodium of 133, potassium 4.8, chloride of 99, BUN of 21, creatinine 1.0, blood glucose of 403, [place] [address]. Chest x-ray showed no acute infiltrates. Patient will be admitted for further management of cardiogenic shock, NSTEMI, complete heart block with history of poorly controlled type 2 diabetes mellitus. Patient will be emergently taken to the molder labels for cardiac catheterization/ PCI and tentative plan for MCS support. Patient will be admitted to intensive care unit and she remains critically ill. 08/14 patient remains critically ill requiring Impella and dopamine support. UDS has demonstrated benzos and cocaine 08/15 patient remains on Impella 08/16 patient appears to be resting comfortably in bed. She remains on Impella and dopamine support. She reports she would like to be bathed and wants her hair combed significant and she is feeling better 08/17 patient is on GI soft diet tolerating well. She remains on Impella support REVIEW OF SYSTEMS CONSTITUTIONAL: generalized fatigue, malaise NEUROLOGICAL: Denies headache, amaurosis fugax, motor weakness, sensory deficit, vertigo/spinning sensation, gait abnormalities, or tremors. ENT: No hearing loss, otalgia, otorrhea, rhinitis, rhinorrhea, hoarseness, or sore throat. CARDIOVASCULAR: chest pain, Shortness of breath, dizziness, lightheadedness PULMONARY: Denies any shortness of breath, cough, phlegm/sputum, hemoptysis, pleuritic chest pain. SLEEP: Denies morning headaches, daytime somnolence or napping. Denies difficulty falling asleep, staying asleep, waking from sleep. Denies knowledge of snoring. GASTROINTESTINAL: Reports having nausea, Denies any type of dysphagia to either liquids or solids. Denies vomiting, pyrosis, early satiety, abdominal pain, diarrhea, constipation, or changes in stool consistency or caliber. Denies coffee-ground emesis, hematemesis, hematochezia, or melanotic stools. GENITOURINARY: Denies frequency, urgency, nocturia, hematuria or incontinence (Storage/Irritative symptoms.) Low urinary stream, straining to void, urinary intermittency or hesitancy, splitting of the voiding stream, terminal dribbling. ENDOCRINOLOGIC: Denies polyuria, polydipsia, polyphagia or heat/cold intolerances. HEMATOLOGIC: Denies thrombophilia/previous clots, or coagulopathy/bleeding disorders. ONCOLOGIC: Denies personal history of malignancy. DERMATOLOGIC: Denies rashes or pruritus. PSYCHIATRIC: Denies any suicidal or homicidal ideation. Denies hallucinations. PHYSICAL EXAM GENERAL APPEARANCE: The patient is awake, appears ill and in mild distress NEUROLOGICAL: Cranial nerves II-XII grossly intact. Motor is 5/5 in bilateral upper and lower extremities proximal to distal. No sensory deficits. HEENT: Face is symmetric. Pupils are equal and reactive. Extraocular movements are intact. NECK: Supple. No JVD. No thyromegaly. No submental, submandibular, pre-/postauricular, occipital or supraclavicular lymphadenopathy. CHEST: Normal chest expansion. No Telemetry. LUNGS: minimal crackles noted of the bilateral lung bases CARDIOVASCULAR: Regular. S1 and S2 normal. No appreciable rubs, murmurs or gallops. ABDOMEN: Soft, nontender, and nondistended. There is no rebound, voluntary guarding, or rigidity. : Deferred. No Coombs. EXTREMITIES: trace edema noted of the bilateral lower extremities SKIN: No skin breakdown. Vital Signs (last 8hr) Date Time Temp Pulse Resp B/P (MAP) Pulse Ox O2 Delivery O2 Flow Rate FiO2 08/17/25 09:30 86 20 101/55 (70) 100 08/17/25 09:24 97 16 104/87 (93) 100 08/17/25 09:15 97 16 104/87 (93) 100 08/17/25 09:00 98 20 103/59 (74) 100 08/17/25 08:45 96 18 104/64 (77) 100 08/17/25 08:30 97 26 102/62 (75) 75 08/17/25 08:15 100 25 100/63 (75) 98 08/17/25 08:03 99 Nasal Cannula* 1 24 08/17/25 08:00 92 17 113/63 (80) 99 08/17/25 07:54 97 19 119/73 (88) 97 08/17/25 07:45 97 19 119/73 (88) 97 08/17/25 07:30 92 24 122/74 (90) 97 08/17/25 07:15 92 18 112/74 (87) 98 08/17/25 07:00 98.2 93 16 105/69 (81) 99 08/17/25 06:45 94 14 113/71 (85) 98 08/17/25 06:30 93 14 111/62 (78) 97 08/17/25 06:15 85 16 110/62 (78) 97 08/17/25 06:00 86 14 99/62 (74) 98 08/17/25 05:45 75 14 101/48 (65) 98 08/17/25 05:30 77 17 117/48 (71) 97 08/17/25 05:15 77 12 124/55 (78) 98 08/17/25 05:00 77 12 124/55 (78) 98 08/17/25 04:45 79 17 108/58 (75) 97 08/17/25 04:30 74 14 104/58 (73) 98 08/17/25 04:24 84 15 115/69 (84) 97 08/17/25 04:15 83 18 123/61 (81) 96 08/17/25 04:00 90 16 111/66 (81) 94 08/17/25 04:00 99 Nasal Cannula* 1 24 08/17/25 03:45 76 18 95/79 (84) 97 08/17/25 03:30 78 17 93/79 (84) 95 LABS: Laboratory: Test 08/17/25 11:04 08/17/25 09:40 08/17/25 03:26 08/17/25 03:24 Range/Units Whole Blood Glucose 264 H 70-110 MG/DL White Blood Count 8.7 4.8-10.8 K/uL Red Blood Count 2.56 L 4.00-5.50 MIL/uL Hemoglobin 7.8 L 12.0-16.0 g/dL Hematocrit 22.2 L 36-48 % Mean Corpuscular Volume 86.7 79-99 fL Mean Corpuscular Hemoglobin 30.5 27.0-33.0 pg Mean Corpuscular Hemoglobin Concent 35.1 32.0-36.0 g/dL Red Cell Distribution Width 12.0 11.0-15.5 % Platelet Count 125 L 130-400 K/uL Mean Platelet Volume 11.1 H 7.5-10.5 fL Nucleated Red Blood Cells 0.0 0.0-0.19 % Blood Gas Specimen Type Arterial Arterial Blood pH 7.434 7.350-7.450 Arterial Blood Partial Pressure CO2 33 32-45 mmHg Arterial Blood Partial Pressure O2 126.8 H 83.0-108.0 mmHg Arterial Blood HCO3 21.3 21.0-28.0 mmol/L Arterial Blood Oxygen Saturation 97.7 94.0-98.0 % Arterial Blood Base Excess -2.5 L -2.0-3.0 mmol/L Hemoglobin (Blood Gas) 7.9 L 12.0-16.0 g/dL Sodium (Blood Gas) 135 L 136-145 MMOL/L Bedside Potassium (Blood Gas) 3.8 3.4-4.5 MMOL/L Bedside Chloride (Blood Gas) 108 H 98-107 MMOL/L Bedside Glucose (Blood Gas) 191 H 65-95 MG/DL Bedside Ionized Calcium (Blood Gas) 1.06 L 1.15-1.33 MMOL/L Bedside Lactic Acid (Blood Gas) 0.96 H 0.36-0.75 MMOL/L Blood Gas Temperature 37.0 35.5-37.0 CELSIUS Blood Gas Flow-by 3.00 0.00-15.00 L/min Blood Gas Vent Mode NC ROOM AIR FiO2 32.0 % Blood Gas Specimen Comment FAUSTO FITO RN Immature Granulocyte % (Auto) 1.1 H 0-1 % Neutrophils (%) (Auto) 57.9 40.0-77.0 % Lymphocytes (%) (Auto) 29.2 21.0-51.0 % Monocytes (%) (Auto) 8.9 3.0-13.0 % Eosinophils (%) (Auto) 2.7 0.0-8.0 % Basophils (%) (Auto) 0.2 0.0-5.0 % Neutrophils # (Auto) 4.7 1.8-7.7 K/uL Lymphocytes # (Auto) 2.4 1.0-4.8 K/uL Monocytes # (Auto) 0.7 0.1-1.0 K/uL Eosinophils # (Auto) 0.22 0.00-0.70 K/uL Basophils # (Auto) 0.02 0.00-0.20 K/uL Absolute Immature Granulocyte (auto 0.09 0-1 K/uL Activated Partial Thromboplast Time 41.6 #H 26.3-35.5 SEC Sodium Level 139 136-145 mmol/L Potassium Level 4.0 3.5-5.1 mmol/L Chloride Level 108 101-111 mmol/L Carbon Dioxide Level 24 21-32 mmol/L Blood Urea Nitrogen 18 7-18 mg/dL Creatinine 0.4 L 0.5-1.0 mg/dL Glomerular Filtration Rate Calc 115 >90 mL/min Random Glucose 202 H 70-105 mg/dL Total Calcium 7.6 L 8.5-10.1 mg/dL Total Bilirubin 0.3 0.2-1.0 mg/dL Aspartate Amino Transf (AST/SGOT) 32 10-37 U/L Alanine Aminotransferase (ALT/SGPT) 16 # 12-78 U/L Alkaline Phosphatase 91 50-136 U/L Total Protein 5.5 L 6.0-8.3 g/dL Albumin 1.8 L 3.5-5.0 g/dL Test 08/16/25 04:51 Range/Units Magnesium Level 1.60 L 1.80-2.40 mg/dL Current Medications Medications (Trade) Dose Ordered Sig/Elmer Route PRN Reason Start Time Stop Time Status Last Admin Dose Admin Acetaminophen (TYLenol 325MG TAB) 650 mg Q6H PRN PO MILD PAIN (1-3) 08/13/25 16:30 09/12/25 16:29 08/15/25 20:10 650 MG Acetaminophen (TYLenol 500MG TAB) 500 mg Q6H PRN PO TEMP < 101.1 AND/OR HEADACHE 08/14/25 14:30 09/13/25 14:29 Aspirin (Aspirin 81mg Chew Tab) 81 mg DAILY PO 08/14/25 09:00 09/13/25 08:59 08/17/25 07:47 81 MG Atorvastatin Calcium (LIPItor 40MG) 40 mg HS PO 08/13/25 21:00 09/12/25 20:59 08/16/25 20:00 40 MG Bisacodyl (DulcoLAX) 10 mg DAILY RC 08/17/25 09:00 08/20/25 08:59 08/17/25 07:52 10 MG Ceftriaxone Sodium (Rocephin 2gm Inj) 2 gm Q24H IVPB 08/14/25 11:30 08/24/25 11:29 08/17/25 11:12 2 GM Chlordiazepoxide HCl (LIBrium 25 MG CAP) 25 mg Q2H PRN PO ALCOHOL WITHDRAWAL PROTOCOL 08/14/25 14:30 08/21/25 14:29 08/16/25 23:38 25 MG Chlordiazepoxide HCl (LIBrium 25 MG CAP) 50 mg Q1H PRN PO ALCOHOL WITHDRAWAL PROTOCOL 08/14/25 14:30 08/21/25 14:29 Dextrose (D50w) 50 ml AD PRN IV HYPOGLYCEMIA PROTOCOL 08/13/25 20:00 09/12/25 19:59 Diphenhydramine HCl (BENAdryl INJ) 25 mg ONCE PRN IV ITCHING 08/15/25 23:00 08/17/25 22:59 Docusate Sodium (COLace 100MG CAP) 100 mg BID PRN PO CONSTIPATION 08/14/25 11:00 09/13/25 10:59 Dopamine HCl/ Dextrose 250 ml @ 0 mls/hr PROTOCOL IV 08/13/25 16:00 09/12/25 15:59 08/16/25 16:41 3 MLS/HR Folic Acid (FOLic ACID 1 MG TABLET) 1 mg DAILY PO 08/15/25 09:00 08/17/25 09:01 DC 08/17/25 07:46 1 MG Glucagon (Glucagon 1mg Kit) 1 mg AD PRN IM HYPOGLYCEMIA PROTOCOL 08/13/25 20:00 09/12/25 19:59 Heparin Sodium (Porcine) (HEParin 5,000 UNIT VIAL) *calculation based on ACTUAL B... AD PRN IV HEPARIN PROTOCOL 08/13/25 16:30 09/12/25 16:29 08/17/25 04:46 3,175 UNIT Heparin Sodium/ Dextrose 250 ml @ 0 mls/hr Q6H IV 08/13/25 16:30 09/12/25 16:29 08/17/25 07:50 13.5 MLS/HR Insulin Glargine (LANtus 100 UNITS/ML 10 ML VIAL) 5 units BID@0730,2100 SQ 08/16/25 21:00 08/17/25 09:31 DC 08/16/25 21:21 5 UNITS Insulin Glargine (LANtus 100 UNITS/ML 10 ML VIAL) 10 units HS SQ 08/13/25 21:00 08/14/25 06:16 DC 08/13/25 20:21 10 UNITS Insulin Glargine (LANtus 100 UNITS/ML 10 ML VIAL) 20 units DAILY SQ 08/14/25 09:00 08/15/25 07:24 DC 08/14/25 08:01 20 UNITS Insulin Glargine (LANtus 100 UNITS/ML 10 ML VIAL) 30 units DAILY SQ 08/15/25 09:00 08/16/25 07:19 DC 08/15/25 08:28 30 UNITS Insulin Glargine (LANtus 100 UNITS/ML 10 ML VIAL) 35 units DAILY SQ 08/16/25 09:00 09/15/25 08:59 08/17/25 09:47 35 UNITS Insulin Human Lispro (HumaLOG LISpro 100 UNIT/ML 3ML) INSULIN SLIDING SCAL... ACHS SQ 08/16/25 21:00 08/17/25 09:31 DC Insulin Human Regular (humuLIN R 100 UNIT/ML 3ML) 5 unit TIDAC SQ 08/14/25 17:00 08/15/25 07:24 DC 08/15/25 07:03 5 UNIT Insulin Human Regular (humuLIN R 100 UNIT/ML 3ML) 8 unit TIDAC SQ 08/15/25 07:30 08/15/25 22:46 DC 08/15/25 16:02 8 UNIT Insulin Human Regular (humuLIN R 100 UNIT/ML 3ML) 10 unit TIDAC SQ 08/16/25 07:30 09/15/25 07:29 08/17/25 11:14 10 UNIT Insulin Human Regular (humuLIN R 100 UNIT/ML 3ML) INSULIN SLIDING SCAL... ACHS SQ 08/13/25 16:30 08/16/25 20:46 DC 08/16/25 20:01 4 UNIT Magnesium Sulfate 50 ml @ 0 mls/hr PROTOCOL IV 08/13/25 16:30 09/12/25 16:29 08/16/25 06:03 25 MLS/HR Morphine Sulfate (morPHINE 4MG SYG) 2 mg Q6H PRN IVP SEVERE PAIN (7-10) 08/14/25 09:30 08/21/25 09:29 08/17/25 10:21 2 MG Multivitamins Therapeutic (Multivitamin Tablet) 1 tab DAILY PO 08/15/25 09:00 09/14/25 08:59 08/17/25 07:46 1 TAB Norepinephrine 250 ml @ 0 mls/hr PROTOCOL IV 08/13/25 15:30 09/12/25 15:29 Ondansetron HCl (zoFRAN 4MG INJ) 4 mg Q4H PRN IV NAUSEA 08/14/25 14:30 09/13/25 14:29 08/14/25 14:17 4 MG Ondansetron HCl (zoFRAN 4MG INJ) 4 mg Q6H PRN IVP NAUSEA/VOMITING 08/13/25 16:30 08/14/25 14:08 DC Pantoprazole Sodium (PROTonix 40MG INJ) 40 mg Q12H IVP 08/17/25 16:30 09/12/25 16:29 Pantoprazole Sodium (PROTonix 40MG INJ) 40 mg Q24H IVP 08/13/25 16:30 08/17/25 11:10 DC 08/16/25 16:07 40 MG Pharmacy Profile Note (Pharmacy Communication) 1 each PROTOCOL PRN MISC ETOH Withdrawal Score changes 08/14/25 14:30 08/14/25 14:08 DC Polyethylene Glycol (MIRalax 3350 17 GM POWD.PACK) 17 gm DAILY PO 08/15/25 09:00 09/14/25 08:59 08/17/25 07:48 17 GM Potassium Chloride 100 ml @ 100 mls/hr AD PRN IV POTASSIUM PROTOCOL 08/13/25 16:30 09/12/25 16:29 08/16/25 16:07 100 MLS/HR Potassium Chloride (K-Dur/Klor-Con 20meq) 20 meq AD PRN PO POTASSIUM PROTOCOL 08/13/25 16:30 09/12/25 16:29 08/15/25 08:23 20 MEQ Potassium Chloride (KCl 10% Elixir 20meq/15ml) 20 meq AD PRN PO POTASSIUM PROTOCOL 08/13/25 16:30 09/12/25 16:29 Promethazine HCl (Phenergan) 25 mg Q6H PRN PO NAUSEA 08/14/25 14:30 09/13/25 14:29 Sodium Bicarbonate 25 meq/Dextrose 1,000 ml @ 0 mls/hr Q0M IV 08/14/25 00:30 09/13/25 00:29 08/14/25 00:21 14.5 MLS/HR Sodium Bicarbonate 25 meq/Dextrose 1,000 ml @ 0 mls/hr Q0M IVP 08/14/25 00:30 08/14/25 00:15 DC Thiamine HCl (Vitamin B-1) 300 mg DAILY IV 08/15/25 09:00 08/17/25 09:01 DC 08/17/25 07:46 300 MG Ticagrelor (BRILinta) 90 mg BID PO 08/14/25 09:00 08/14/25 21:19 DC 08/14/25 20:09 90 MG DIAGNOSTICS / RADIOLOGY: [ ] ASSESSMENT: Cardiogenic shock with lactic acidosis, POA NSTEMI/ACS, POA Complete heart block, POA History of multivessel coronary artery disease, POA History of cocaine use disorder, POA Severe nonketotic hyperglycemia, POA History of to poorly controlled type 2 diabetes mellitus, POA Lactic acidosis, POA History of anemia, POA History of gastritis, POA History of hypertension, POA History of PTSD/anxiety, POA Obesity, POA Medical noncompliance, POA PLAN: Continue ceftriaxone Trend WBCs Follow-up blood cultures O2 nasal cannula as needed Follow up with Critical care, appreciate assistance Continue aspirin, atorvastatin, Brilinta Monitor blood pressure Follow up with CT surgery -tentative plans for aortocoronary bypass graft later this week Follow up with Cardiology Continue dopamine Continue Impella support Continue GI soft diet Continue GI prophylaxis with pantoprazole No need for IV fluids Trend a.m. BMP Replete electrolytes as necessary Continue heparin drip DVT prophylaxis with heparin Trend a.m. CBC Follow up With endocrinology Continue insulin sliding scale Continue Lantus 20 units Daily Full code Case was discussed with patient's nurse at bedside Critical care Attention time greater than 30 minutes CHRISTIAN MACHUCA IV, MD Aug 17, 2025 11:32
--- NOTE | 2025-08-17 14:18 | HMCIMG ---
EXAM: CR Chest, 1 View. CLINICAL HISTORY: hypoxic resp failure COMPARISON: August 15 2025 FINDINGS: LUNGS: The lungs show no infiltrate or other acute finding. Right PICC line is in the SVC PLEURAL SPACES: No pleural effusion or pneumothorax. MEDIASTINUM: Cardiac size and mediastinal contours within normal limits. BONES: No aggressive appearing osseous lesion seen. IMPRESSION: No acute cardiopulmonary pathology is evident. /[place]
--- NOTE | 2025-08-17 14:23 | PN ---
[facility] PROGRESS NOTE Date Patient Seen: Aug 17, 2025 Time of Visit: 14:18 Supervising Physician: [ ] Consulting Physician: Hospitalist Outpatient Specialists: [ ] Inpatient Consults: [ ] PROBLEM LIST: Acute hypoxic respiratory failure, POA NSTEMI, POA Cardiogenic shock SCAI stage D status post cardiac catheterization with multivessel disease, Impella placement POA Complete heart block, status post transvenous temporary pacemaker placement POA CAD, with multivessel disease, POA Lactic acidosis, likely from cardiogenic shock DM type 2, with hyperglycemia, poorly controlled, HGB A1c of 10.7 POA Hyponatremia, POA Cocaine abuse, POA Tobacco use, current day smoker usually consume six sticks per day History of hypertension, currently on Impella device History of CVA Chronic constipation INTERVAL HISTORY: Pt is awake alert and oriented x 3. no chest pain palpitation or SOB. She is pending CABG later this week. She is on MCS with impella at P7 and TVP and dopamine se rate at 2.5 mcg/kg/min. She reports chronic constipation. Will continue Bowel regimen. Troponin - 4240 White count has normalized Hb - 7.8 and platelet - 125. Kidneys are good cr 0.4 magnesium 1.6 Covered per protocol. on chest XR lines appear in place. Lungs are clear. will continue to follow cardiology and CV surgery recommendations. REVIEW OF SYSTEMS: 12 point ROS reviewed with patient. Pertinent positives mentioned above. Otherwise negative. PHYSICAL EXAM: GENERAL: alert, weak, awake oriented x 3 HEENT: EOMI, Sclera non icteric, moist mucosa NECK: Supple, no JVD, trachea midline LUNGS: Clear breath sounds bilaterally. No wheezes HEART: TVP Normal S1 and S2, without murmurs ABD: Abdomen soft, nontender. Bowel sounds present EXT: No clubbing cyanosis or edema NEURO: Alert and oriented to person, follows commands Vital Signs (last 8hr) Date Time Temp Pulse Resp B/P (MAP) Pulse Ox O2 Delivery O2 Flow Rate FiO2 08/17/25 12:45 77 21 107/60 (76) 98 08/17/25 12:30 78 19 118/51 (73) 98 08/17/25 12:15 87 16 106/52 (70) 97 08/17/25 12:10 91 15 120/96 (104) 98 08/17/25 12:00 98.2 91 15 120/96 (104) 98 08/17/25 11:45 88 40 113/64 (80) 98 08/17/25 11:30 92 Nasal Cannula* 1 24 08/17/25 11:30 98 15 103/63 (76) 98 08/17/25 11:15 97 19 127/56 (79) 98 08/17/25 11:00 101 15 132/74 (93) 98 08/17/25 10:45 90 16 100/55 (70) 98 08/17/25 10:30 90 15 98/62 (74) 99 08/17/25 10:15 91 16 106/59 (75) 99 08/17/25 10:00 97 16 101/63 (76) 99 08/17/25 09:45 97 17 98/62 (74) 100 08/17/25 09:30 86 20 101/55 (70) 100 08/17/25 09:24 97 16 104/87 (93) 100 08/17/25 09:15 97 16 104/87 (93) 100 08/17/25 09:00 98 20 103/59 (74) 100 08/17/25 08:45 96 18 104/64 (77) 100 08/17/25 08:30 97 26 102/62 (75) 75 08/17/25 08:15 100 25 100/63 (75) 98 08/17/25 08:03 99 Nasal Cannula* 1 24 08/17/25 08:00 92 17 113/63 (80) 99 08/17/25 07:54 97 19 119/73 (88) 97 08/17/25 07:45 97 19 119/73 (88) 97 08/17/25 07:30 92 24 122/74 (90) 97 08/17/25 07:15 92 18 112/74 (87) 98 08/17/25 07:00 98.2 93 16 105/69 (81) 99 08/17/25 06:45 94 14 113/71 (85) 98 08/17/25 06:30 93 14 111/62 (78) 97 LABS: Hematology Labs: Test 08/17/25 09:40 08/17/25 03:24 Range/Units White Blood Count 8.7 4.8-10.8 K/uL Red Blood Count 2.56 L 4.00-5.50 MIL/uL Hemoglobin 7.8 L 12.0-16.0 g/dL Hematocrit 22.2 L 36-48 % Mean Corpuscular Volume 86.7 79-99 fL Mean Corpuscular Hemoglobin 30.5 27.0-33.0 pg Mean Corpuscular Hemoglobin Concent 35.1 32.0-36.0 g/dL Red Cell Distribution Width 12.0 11.0-15.5 % Platelet Count 125 L 130-400 K/uL Mean Platelet Volume 11.1 H 7.5-10.5 fL Nucleated Red Blood Cells 0.0 0.0-0.19 % Immature Granulocyte % (Auto) 1.1 H 0-1 % Neutrophils (%) (Auto) 57.9 40.0-77.0 % Lymphocytes (%) (Auto) 29.2 21.0-51.0 % Monocytes (%) (Auto) 8.9 3.0-13.0 % Eosinophils (%) (Auto) 2.7 0.0-8.0 % Basophils (%) (Auto) 0.2 0.0-5.0 % Neutrophils # (Auto) 4.7 1.8-7.7 K/uL Lymphocytes # (Auto) 2.4 1.0-4.8 K/uL Monocytes # (Auto) 0.7 0.1-1.0 K/uL Eosinophils # (Auto) 0.22 0.00-0.70 K/uL Basophils # (Auto) 0.02 0.00-0.20 K/uL Absolute Immature Granulocyte (auto 0.09 0-1 K/uL Chemistry Labs: Test 08/17/25 11:51 08/17/25 11:04 08/17/25 03:24 08/16/25 04:51 Range/Units Troponin I High Sensitivity 4240 *H 4-50 ng/L Whole Blood Glucose 264 H 70-110 MG/DL Sodium Level 139 136-145 mmol/L Potassium Level 4.0 3.5-5.1 mmol/L Chloride Level 108 101-111 mmol/L Carbon Dioxide Level 24 21-32 mmol/L Blood Urea Nitrogen 18 7-18 mg/dL Creatinine 0.4 L 0.5-1.0 mg/dL Glomerular Filtration Rate Calc 115 >90 mL/min Random Glucose 202 H 70-105 mg/dL Total Calcium 7.6 L 8.5-10.1 mg/dL Total Bilirubin 0.3 0.2-1.0 mg/dL Aspartate Amino Transf (AST/SGOT) 32 10-37 U/L Alanine Aminotransferase (ALT/SGPT) 16 # 12-78 U/L Alkaline Phosphatase 91 50-136 U/L Total Protein 5.5 L 6.0-8.3 g/dL Albumin 1.8 L 3.5-5.0 g/dL Magnesium Level 1.60 L 1.80-2.40 mg/dL Coagulation Labs: Test 08/17/25 11:51 Range/Units Activated Partial Thromboplast Time 84.9 #H 26.3-35.5 SEC DIAGNOSTICS / RADIOLOGY RESULTS: [ ] PLAN Continue ICU care Complete bedrest for now Wean O2 as tolerated HH diet FOLLOW CARDIOLOGY recommendations ISS sc Keep SBP less than 160 Neurovascular checks CIWA protocol Bowel regimen CABG pending in the next few days continue IS abg in am NEURO: Minimize central acting medications as possible. Fall Precautions. Well lighted room through the day and minimize interruptions through the night to prevent acute delirium. PULMONARY: Supplemental 02 as needed Titrate Fio2 to keep Spo2 > or = 90% DuoNebs and CPT as needed IS hourly while awake for pulmonary hygiene CARDIOVASCULAR: Follow hemodynamics. Titrate vasopressor to keep MAP >65 or systolic blood pressure >95mmHg DIPS: Dopamine wean as tolerated to maintain perfusion map above 65 Heparin gtt LINES: Peripheral IV CVP Impella GI & NUTRITION: Continue nutritional support Aspirations precautions Prokinetic agents and laxatives as needed Clear liquid diet as tolerated KIDNEYS & ELECTROLYTES: Strict monitoring of intake and output Daily weights Avoid nephrotoxic agents Monitor electrolytes and replace as needed Goal urine output of 30mL/hr or 0.5mL/kg/hr ENDOCRINE: Maintain blood glucose between 100-180 at all times. Insulin sliding scale for blood glucose management INFECTIOUS DISEASE: Trend temperature. Astudillo-culture if febrile. Micro: Urine culture - Ecoli Blood culture - Staph chonii urealyticum Antibiotics: Rocephin HEMATOLOGY & COAGULATION: Monitor H&H. Keep Hgb > 7 Transfuse 1 unit of PRBC for Hgb < 7 Transfuse 1 pack of platelets of platelets < 20, 000 Watch for any signs and symptoms of bleeding SKIN: Pressure ulcer prevention per facility protocol Rehab: PT/OT Prophylaxis: GI: PPI DVT: SCDs patient on heparin drip Code Status: Full Resuscitation Disposition: ICU Other: Total patient care time exceeds 35 minutes excluding all procedures. ATTESTATION BY PHYSICIAN I have seen and examined the patient. I reviewed the documentation, medical decision making, and treatment plan as noted by the resident provider above. I agree with the findings and plan of care. Jaylon Sapp MD, LAKSHMI MD Aug 17, 2025 14:23
[2025-08-17 14:33] LABS: % IRON SATURATION 22.2 % (22-44); IRON, SERUM 32.0 mcg/dL (50-170)
--- NOTE | 2025-08-17 14:41 | CONS ---
CONSULT REFERRING PHYSICIAN: GURINDER JARAMILLO MD REASON FOR CONSULT: THROMBOCYTOPENIA HISTORY HPI: This is a 60-year-old female with underlying history of obesity, coronary artery disease, poorly controlled type 2 diabetes mellitus, history of anemia, history of cocaine use, tobacco use disorder, history of CVA in 2008, who presented to the ER with severe substernal chest pain and shortness of breath. She is admitted for further evaluation and management of NSTEMI , Cardiogenic shock. She underwent left heart catheterization and was placed on Impella on 08.13.25. We are consulted for thrombocytopenia .Her platelets were 2,09,000 at the time of admissionand today its 1,15,000 . Patient continues to be on P7 Impella . Her vitals are stable . Patient is pending CABG for severe CAD . PMH: Coronary artery disease with history of abnormal coronary CT angiography, gastritis, anemia, cocaine use disorder, obesity, PTSD, anxiety disorder, history of NSTEMI in 04/2025, history of CVA in 2008 PSH: History of ventral hernia repair 2008, hx of cholecystectomy, hx of C Section SH: Denies active alcohol consumption, intermittently smokes cigarettes as well as has been using cocaine chronically FH: Reports family history of heart disease ALLERGIES: Coded Allergies: No Known Drug Allergies (Verified Allergy, Unknown, 05/04/22) lisinopril (Verified Allergy, Unknown, 05/04/22) CURRENT MEDS: Current Medications Medications (Trade) Dose Ordered Sig/Elmer Route PRN Reason Start Time Stop Time Status Last Admin Bisacodyl (DulcoLAX) 10 mg DAILY RC 08/17/25 09:00 08/20/25 08:59 08/17/25 07:52 Pantoprazole Sodium (PROTonix 40MG INJ) 40 mg Q12H IVP 08/17/25 16:30 09/12/25 16:29 Insulin Human Regular (humuLIN R 100 UNIT/ML 3ML) INSULIN SLIDING SCAL... ACHS SQ 08/17/25 16:30 09/16/25 16:29 REVIEW OF SYSTEMS CONSTITUTIONAL: No FEVER, No SWEATS, No CHILLS, No WEIGHT LOSS HEENT: No JAUNDICE, No SORE THROAT, No SINUS PRESSURE, No VISION CHANGES RESPIRATORY: COUGH; No CHEST PAIN, No SHORTNESS OF BREATH, No HEMOPTYSIS CARDIOVASCULAR: No PALPATIONS, No DYSPNEA ON EXERTION, No SYNCOPE GASTROINTESTINAL: No NAUSEA, No VOMITING, No DIARRHEA, No DYSPHAGIA, No CONSTIPATION, No ABDOMINAL PAIN, No HEMATEMESIS, No HEMATOCHEZIA, No MELENA GENITOURINARY: No DYSURIA, No HEMATURIA HEMATOLOGIC/LYMPHATIC: No EASY BRUISING, No CERVICAL ADENOPATHY, No AXILLARY ADENOPATHY, No INGUINAL ADENOPATHY MUSCULOSKELETAL: No BONE PAIN, No MASS, No NORMAL RANGE OF MOTION NEUROLOGICAL: No WEAKNESS-EXTREMETIES, No DIPLOPIA, No NUMBNESS, No TINGLING PHYSICAL EXAM VITALS: Vital Signs Date Time Temp Pulse Resp B/P (MAP) Pulse Ox O2 Delivery O2 Flow Rate FiO2 08/17/25 12:45 77 21 107/60 (76) 98 08/17/25 12:00 98.2 08/17/25 11:30 Nasal Cannula* 1 24 GENERAL: ALERT, ORIENTED EYES: SCLERAE ANICTERIC, PUPILS EQUAL/REACTIVE, EXTRAOCULAR MUSCLES INTCT ENT/NECK: ORAL MUCOSA W/O LESIONS, OROPHARYNX IS CLEAR, NECK SUPPLE W/O MASSES RESPIRATORY: LUNGS CLEAR-AUSC/PERCUS CARDIOVASCULAR: REGULAR RATE, REGULAR RHYTHM GASTROINTESTINAL: ABDOMEN IS SOFT; No TENDER, No DISTENDED, No HEPATOSPLENOMEGALY; BOWEL SOUNDS PRESENT; No PALPABLE MASSES HEMATOLOGY/LYMPHATIC: No CERVICAL ADENOPATHY, No SUPRACLAVICULR ADENOPATHY, No AXILLARY ADENOPATHY, No INGUINAL ADENOPATHY MUSCULOSKELETAL: No CYANOSIS-EXTREMETIES, No CLUBBING, No EDEMA NEUROLOGICAL: GROSSLY INTACT IMPRESSION PROBLEM LIST: 1. Thrombocytopenia 2. Anemia 3.NSTEMI, POA 4.Cardiogenic shock SCAI stage D status post cardiac catheterization with multivessel disease, Impella placement POA 5.Complete heart block, status post transvenous temporary pacemaker placement POA 6.CAD, with multivessel disease, POA 7. DM type 2, with hyperglycemia, poorly controlled, HGB A1c of 10.7 POA PLAN Plan 1.Peripheral blood smear showed macrocytic RBCs. There is no fragment cells or schistocyte . There is no tear drop cell, No rouleaux phenomena. no pelger-Huet cell, there were few premature atrial white blood cells with hypersegmented neutrophils might be secondary to infection. Platelet was normal in morphology and count. There is no evidence of heparin-induced thrombocytopenia. Patient can be continued on heparin. We will Sent hit antibody assay. .There was hypersegmented neutrophils . This patient to be started on Folic acid 1 mg PO , dasily and vitamin B 12 1000 mcg po daily . 2. Patient has a anemia- we will send iron panel. GEOFFREY HOWELL MD Aug 17, 2025 14:41
--- NOTE | 2025-08-17 16:15 | HMCIMG ---
EXAM: CHEST RADIOGRAPH, SINGLE VIEW Technique: A single frontal chest radiograph was obtained. As a single-view examination, sensitivity for subtle findings is limited and the apparent size of the cardiac silhouette may be affected by projection and positioning. Clinical Information: Hypoxic respiratory failure. Comparison: Chest radiograph from August 16, 2025 at 5:42 AM Eastern Daylight Time. Findings: The lungs show no focal airspace infiltrate. There is no acute focal pulmonary opacity identified. There is no pleural effusion identified. There is no pneumothorax detected. The cardiac size is within normal limits by this projection. The mediastinal contours are within normal limits. A right peripherally inserted central catheter is present with the tip projecting over the region of the superior vena cava. No aggressive osseous lesion is identified in the visualized structures. No interval change is identified compared with the prior examination.IMPRESSION: 1. No acute cardiopulmonary findings, stable compared to the prior X-ray chest. PICC line in same position as prior. /[place]
--- NOTE | 2025-08-17 21:13 | PN ---
Endocrinology progress note DOS: 08/17/25 subjective: on dopamine and heparin drip. cardiology following. pacemaker and impella placed. Home diabetic regimen: metformin 500 mg bid Hba1c 10.7% glucose runs greater than 180 mg/dl. REVIEW OF SYSTEMS CONSTITUTIONAL: generalized fatigue, malaise NEUROLOGICAL: Denies headache, amaurosis fugax, motor weakness, sensory deficit, vertigo/spinning sensation, gait abnormalities, or tremors. ENT: No hearing loss, otalgia, otorrhea, rhinitis, rhinorrhea, hoarseness, or sore throat. CARDIOVASCULAR: chest pain, Shortness of breath improving PULMONARY: Denies any shortness of breath, cough, phlegm/sputum, hemoptysis, pleuritic chest pain. SLEEP: Denies morning headaches, daytime somnolence or napping. Denies difficulty falling asleep, staying asleep, waking from sleep. Denies knowledge of snoring. GASTROINTESTINAL: Denies any type of dysphagia to either liquids or solids. Denies vomiting, pyrosis, early satiety, abdominal pain, diarrhea, constipation, or changes in stool consistency or caliber. Denies coffee-ground emesis, hematemesis, hematochezia, or melanotic stools. GENITOURINARY: Denies frequency, urgency, nocturia, hematuria or incontinence (Storage/Irritative symptoms.) Low urinary stream, straining to void, urinary intermittency or hesitancy, splitting of the voiding stream, terminal dribbling. ENDOCRINOLOGIC: Denies polyuria, polydipsia, polyphagia or heat/cold intolerances. HEMATOLOGIC: Denies thrombophilia/previous clots, or coagulopathy/bleeding disorders. ONCOLOGIC: Denies personal history of malignancy. DERMATOLOGIC: Denies rashes or pruritus. PSYCHIATRIC: Denies any suicidal or homicidal ideation. Denies hallucinations. PAST MEDICAL HISTORY: Coronary artery disease with history of abnormal coronary CT angiography, gastritis, anemia, cocaine use disorder, obesity, PTSD, anxiety disorder, history of NSTEMI in 04/2025, history of CVA in 2008 PAST SURGICAL HISTORY: History of ventral hernia repair 2008, hx of cholecystectomy, hx of C Section PAST SOCIAL HISTORY: Denies active alcohol consumption, intermittently smokes cigarettes as well as has been using cocaine chronically FAMILY HISTORY: Reports family history of heart disease Home medications: Patient does not have list of home medications, family will be bringing list of home medications to be updated Allergies: Patient has allergic reaction to lisinopril Coded Allergies: No Known Drug Allergies (Verified Allergy, Unknown, 05/04/22) lisinopril (Verified Allergy, Unknown, 05/04/22) DIAGNOSTICS / RADIOLOGY: SERVICE 142 REASON: cp ORDERING PHYSICIAN: ZORA OCHOA MD PROCEDURE: CXR1VW - CHEST 1VW EXAM: CR Chest, 1 View. CLINICAL HISTORY: cp COMPARISON: 07/08/25 FINDINGS: LUNGS: The lungs show no infiltrate or other acute finding. PLEURAL SPACES: No pleural effusion or pneumothorax. MEDIASTINUM: The cardiomediastinal silhouette is within normal limits. BONES: No aggressive appearing osseous lesion seen. IMPRESSION: No acute cardiopulmonary pathology is evident. /[place] DICTATED BY: BELKIS KURTZ MD DATE: 08/13/251731 ELECTRONICALLY SIGNED BY: BELKIS KURTZ MD DATE: 08/13/251731 ASSESSMENT: uncontrolled DM-2 Home diabetic regimen: metformin 500 mg bid Hba1c 10.7% glucose runs greater than 180 mg/dl but improving now. Cardiogenic shock with lactic acidosis, POA cardiology following for possible procedure. NSTEMI/ACS, POA Complete heart block, POA History of multivessel coronary artery disease, POA History of cocaine use disorder, POA Severe nonketotic hyperglycemia, POA History of to poorly controlled type 2 diabetes mellitus, POA Lactic acidosis, POA History of anemia, POA History of gastritis, POA History of hypertension, POA History of PTSD/anxiety, POA Obesity, POA Medical noncompliance, POA PLAN: continue Lantus 35 units daily and adjust for fasting glucose. increase Regular insulin to 12 units three times before meals and adjust for post-prandial glucose. Continue medium dose sliding scale insulin. Monitor glucose q x 6 hourly. Continue carb consistent diet. Keep glucose less than 180 mg/dl. Patient will need insulin at discharge. Vitals/Labs Vital Signs Date Time Temp Pulse Resp B/P (MAP) Pulse Ox O2 Delivery O2 Flow Rate FiO2 08/17/25 18:30 71 19 137/51 (79) 98 08/17/25 16:00 Nasal Cannula* 1 24 08/17/25 15:45 98.1 Laboratory Tests 08/17/25 03:24 08/17/25 09:40 Medications Current Medications Ondansetron HCl 4 mg ONCE ONCE IVP; Start 08/13/25 at 14:30; Stop 08/13/25 at 14:52; Status DC Sodium Chloride 500 ml @ 0 mls/hr ONCE ONCE IV Last administered on 08/13/25at 15:00; Start 08/13/25 at 14:30; Stop 08/13/25 at 14:31; Status DC Heparin Sodium (Porcine) *calculation based on ACTUAL B... AD PRN IV Last administered on 08/17/25at 04:46; Start 08/13/25 at 16:30; Stop 09/12/25 at 16:29 Heparin Sodium/ Dextrose 250 ml @ 0 mls/hr Q6H IV Last administered on 08/17/25at 07:50; Start 08/13/25 at 16:30; Stop 09/12/25 at 16:29 Norepinephrine 250 ml @ 0 mls/hr PROTOCOL IV; Start 08/13/25 at 15:30; Stop 09/12/25 at 15:29 Dopamine HCl/ Dextrose 250 ml @ As Directed STK-MED ONCE IV; Start 08/13/25 at 15:33; Stop 08/13/25 at 15:33; Status DC Aspirin 325 mg STK-MED ONCE .ROUTE; Start 08/13/25 at 15:34; Stop 08/13/25 at 15:33; Status DC Ticagrelor 180 mg ONCE ONCE PO Last administered on 08/13/25at 16:16; Start 08/13/25 at 16:00; Stop 08/13/25 at 16:01; Status DC Morphine Sulfate 1 mg ONCE ONCE IVP Last administered on 08/13/25at 16:23; Start 08/13/25 at 16:00; Stop 08/13/25 at 16:01; Status DC Ticagrelor 90 mg STK-MED ONCE .ROUTE; Start 08/13/25 at 15:50; Stop 08/13/25 at 15:50; Status DC Dopamine HCl/ Dextrose 250 ml @ 0 mls/hr PROTOCOL IV Last administered on 08/16/25at 16:41; Start 08/13/25 at 16:00; Stop 09/12/25 at 15:59 Aspirin 325 mg ONCE ONCE PO Last administered on 08/13/25at 16:15; Start 08/13/25 at 16:00; Stop 08/13/25 at 16:01; Status DC Lidocaine HCl 20 ml STK-MED ONCE .ROUTE; Start 08/13/25 at 16:12; Stop 08/13/25 at 16:12; Status DC Iohexol 35,000 mg STK-MED ONCE IV; Start 08/13/25 at 16:12; Stop 08/13/25 at 16:12; Status DC Heparin Sodium (Porcine) 10,000 unit STK-MED ONCE .ROUTE; Start 08/13/25 at 16:12; Stop 08/13/25 at 16:12; Status DC Nicardipine HCl 25 mg STK-MED ONCE IV; Start 08/13/25 at 16:12; Stop 08/13/25 at 16:12; Status DC Heparin Sodium/ Sodium Chloride 1,000 ml @ As Directed STK-MED ONCE IV; Start 08/13/25 at 16:12; Stop 08/13/25 at 16:12; Status DC Nitroglycerin 50 mg STK-MED ONCE .ROUTE; Start 08/13/25 at 16:12; Stop 08/13/25 at 16:12; Status DC Pantoprazole Sodium 40 mg Q24H IVP Last administered on 08/16/25at 16:07; Start 08/13/25 at 16:30; Stop 08/17/25 at 11:10; Status DC Insulin Human Regular INSULIN SLIDING SCAL... ACHS SQ Last administered on 08/16/25at 20:01; Start 08/13/25 at 16:30; Stop 08/16/25 at 20:46; Status DC Insulin Human Regular 5 unit ONCE ONCE IV; Start 08/13/25 at 16:30; Stop 08/13/25 at 16:31; Status DC Fentanyl Citrate 100 mcg STK-MED ONCE .ROUTE; Start 08/13/25 at 16:26; Stop 08/13/25 at 16:26; Status DC Midazolam HCl 2 mg STK-MED ONCE .ROUTE; Start 08/13/25 at 16:27; Stop 08/13/25 at 16:27; Status DC Acetaminophen 650 mg Q6H PRN PO Last administered on 08/15/25at 20:10; Start 08/13/25 at 16:30; Stop 09/12/25 at 16:29 Ondansetron HCl 4 mg Q6H PRN IVP; Start 08/13/25 at 16:30; Stop 08/14/25 at 14:08; Status DC Potassium Chloride 100 ml @ 100 mls/hr AD PRN IV Last administered on 08/16/25at 16:07; Start 08/13/25 at 16:30; Stop 09/12/25 at 16:29 Potassium Chloride 20 meq AD PRN PO; Start 08/13/25 at 16:30; Stop 09/12/25 at 16:29 Potassium Chloride 20 meq AD PRN PO Last administered on 08/15/25at 08:23; Start 08/13/25 at 16:30; Stop 09/12/25 at 16:29 Magnesium Sulfate 50 ml @ 0 mls/hr PROTOCOL IV Last administered on 08/16/25at 06:03; Start 08/13/25 at 16:30; Stop 09/12/25 at 16:29 Atorvastatin Calcium 40 mg HS PO Last administered on 08/16/25at 20:00; Start 08/13/25 at 21:00; Stop 09/12/25 at 20:59 Heparin Sodium/ Sodium Chloride 500 ml @ As Directed STK-MED ONCE IV; Start 08/13/25 at 17:14; Stop 08/13/25 at 17:14; Status DC Heparin Sodium (Porcine) 10,000 unit STK-MED ONCE .ROUTE; Start 08/13/25 at 18:03; Stop 08/13/25 at 18:03; Status DC Aspirin 81 mg DAILY PO Last administered on 08/17/25at 07:47; Start 08/14/25 at 09:00; Stop 09/13/25 at 08:59 Insulin Glargine 10 units HS SQ Last administered on 08/13/25at 20:21; Start 08/13/25 at 21:00; Stop 08/14/25 at 06:16; Status DC Dextrose 50 ml AD PRN IV; Start 08/13/25 at 20:00; Stop 09/12/25 at 19:59 Glucagon 1 mg AD PRN IM; Start 08/13/25 at 20:00; Stop 09/12/25 at 19:59 Sodium Bicarbonate 25 meq/Dextrose 1,000 ml @ 0 mls/hr Q0M IVP; Start 08/14/25 at 00:30; Stop 08/14/25 at 00:15; Status DC Sodium Bicarbonate 25 meq/Dextrose 1,000 ml @ 0 mls/hr Q0M IV Last administered on 08/14/25at 00:21; Start 08/14/25 at 00:30; Stop 09/13/25 at 00:29 Glycerin 1 supp ONCE ONCE RC Last administered on 08/14/25at 05:56; Start 08/14/25 at 05:00; Stop 08/14/25 at 05:06; Status DC Insulin Glargine 20 units DAILY SQ Last administered on 08/14/25at 08:01; Start 08/14/25 at 09:00; Stop 08/15/25 at 07:24; Status DC Ticagrelor 90 mg BID PO Last administered on 08/14/25at 20:09; Start 08/14/25 at 09:00; Stop 08/14/25 at 21:19; Status DC Morphine Sulfate 2 mg Q6H PRN IVP Last administered on 08/17/25at 17:02; Start 08/14/25 at 09:30; Stop 08/21/25 at 09:29 Polyethylene Glycol 17 gm DAILY PO Last administered on 08/17/25at 07:48; Start 08/15/25 at 09:00; Stop 09/14/25 at 08:59 Docusate Sodium 100 mg BID PRN PO; Start 08/14/25 at 11:00; Stop 09/13/25 at 10:59 Ceftriaxone Sodium 2 gm Q24H IVPB Last administered on 08/17/25at 11:12; Start 08/14/25 at 11:30; Stop 08/24/25 at 11:29 Insulin Human Regular 5 unit TIDAC SQ Last administered on 08/15/25at 07:03; Start 08/14/25 at 17:00; Stop 08/15/25 at 07:24; Status DC Chlordiazepoxide HCl 25 mg Q2H PRN PO Last administered on 08/16/25at 23:38; Start 08/14/25 at 14:30; Stop 08/21/25 at 14:29 Chlordiazepoxide HCl 50 mg Q1H PRN PO; Start 08/14/25 at 14:30; Stop 08/21/25 at 14:29 Ondansetron HCl 4 mg Q4H PRN IV Last administered on 08/14/25at 14:17; Start 08/14/25 at 14:30; Stop 09/13/25 at 14:29 Promethazine HCl 25 mg Q6H PRN PO; Start 08/14/25 at 14:30; Stop 09/13/25 at 14:29 Acetaminophen 500 mg Q6H PRN PO; Start 08/14/25 at 14:30; Stop 09/13/25 at 14:29 Thiamine HCl 300 mg DAILY IV Last administered on 08/17/25at 07:46; Start 08/15/25 at 09:00; Stop 08/17/25 at 09:01; Status DC Folic Acid 1 mg DAILY PO Last administered on 08/17/25at 07:46; Start 08/15/25 at 09:00; Stop 08/17/25 at 09:01; Status DC Multivitamins Therapeutic 1 tab DAILY PO Last administered on 08/17/25at 07:46; Start 08/15/25 at 09:00; Stop 09/14/25 at 08:59 Pharmacy Profile Note 1 each PROTOCOL PRN MISC; Start 08/14/25 at 14:30; Stop 08/14/25 at 14:08; Status DC Insulin Glargine 30 units DAILY SQ Last administered on 08/15/25at 08:28; Start 08/15/25 at 09:00; Stop 08/16/25 at 07:19; Status DC Insulin Human Regular 8 unit TIDAC SQ Last administered on 08/15/25at 16:02; Start 08/15/25 at 07:30; Stop 08/15/25 at 22:46; Status DC Diphenhydramine HCl 25 mg ONCE ONCE IM; Start 08/15/25 at 21:00; Stop 08/15/25 at 22:52; Status DC Insulin Human Regular 10 unit TIDAC SQ Last administered on 08/17/25at 16:09; Start 08/16/25 at 07:30; Stop 09/15/25 at 07:29 Diphenhydramine HCl 25 mg ONCE PRN IV; Start 08/15/25 at 23:00; Stop 08/17/25 at 22:59 Insulin Glargine 35 units DAILY SQ Last administered on 08/17/25at 09:47; Start 08/16/25 at 09:00; Stop 09/15/25 at 08:59 Bisacodyl 10 mg DAILY RC Last administered on 08/17/25at 07:52; Start 08/17/25 at 09:00; Stop 08/20/25 at 08:59 Insulin Human Lispro INSULIN SLIDING SCAL... ACHS SQ; Start 08/16/25 at 21:00; Stop 08/17/25 at 09:31; Status DC Insulin Glargine 5 units BID@0730,2100 SQ Last administered on 08/16/25at 21:21; Start 08/16/25 at 21:00; Stop 08/17/25 at 09:31; Status DC Pantoprazole Sodium 40 mg Q12H IVP Last administered on 08/17/25at 15:42; Start 08/17/25 at 16:30; Stop 09/12/25 at 16:29 Insulin Human Regular INSULIN SLIDING SCAL... ACHS SQ Last administered on 08/17/25at 16:08; Start 08/17/25 at 16:30; Stop 09/16/25 at 16:29 CAROLYN BYRNE MD Aug 17, 2025 21:13
[2025-08-17] MEDS ORDERED: VANCOMYCIN PROTOCOL PER PHARMACY IV SCH (22:00)
[2025-08-17] MEDS: VANCOMYCIN 1.75 GM/250 ML IV ONE (23:05)
[2025-08-18] VITALS (57 sets, daily range): BP systolic 83–144; BP diastolic 34–73; PULSE 57–100; RESP 12–26; TEMP 98–98.9; O2SAT 98–99
--- NOTE | 2025-08-18 01:48 | PN ---
SUBJECTIVE: The patient is status post ST-elevation [place] and placement of Impella CP left ventricular assist device. The patient is extubated and is chest pain free. She offers no complaints. OBJECTIVE: VITAL SIGNS: Her vital signs reveal pulse of 77, blood pressure is 127/56, respirations are 60 breaths per minute. She has nasal cannula oxygen prongs. HEENT: HEENT exam reveals her normocephalic, atraumatic. Extraocular movements intact. She has nasal cannula prongs under her nose. She is on a dopamine drip at 1 mcg per minute. She is on a heparin drip. HEART: Her heart is S1, S2, and regular. LUNGS: Her lungs are unlabored and relatively clear. ABDOMEN: Her abdomen reveals [id number] obesity. EXTREMITIES: She has an Impella CP catheter in her right femoral artery. She has a knee immobilizer on her right leg. LABORATORY DATA: Her latest troponin was 11,347. That was from a couple of days ago. ASSESSMENT AND PLAN: * Status post ST-elevation myocardial infarction with three-system mild coronary artery disease. The patient will need to cool off from her ST-elevation myocardial infarction and allow some time for her Brilinta to wear off. We will then plan a coronary artery bypass grafting using the Impella support. Continue antiplatelet therapy, epinephrine drip, and beta blockers if tolerated. * Postoperative acute pulmonary insufficiency. * Acute respiratory insufficiency. Attempt to wean off the nasal cannula oxygen. * Hypercholesterolemia. Lipitor 80 mg at bedtime is almost contraindicated. We will follow with you. Time spent 30 minutes. The patient is critically ill in the ICU. TID: [id number] RECEIPT: [id number]
[2025-08-18 04:36] LABS: IMMATURE GRANULOCYTE ABSOLUTE 0.13 K/uL (0-1); NUCLEATED RED BLOOD CELLS 0.2 % (0.0-0.19); PLATELET COUNT (AUTO) 130 K/uL (130-400); RED BLOOD CELL COUNT(AUTO) 2.28 MIL/uL (4.00-5.50); RED CELL DISTRIBUTION WIDTH 12.3 % (11.0-15.5); WHITE BLOOD COUNT (AUTO) 8.5 K/uL (4.8-10.8)
[2025-08-18 04:55] LABS: ASPARTATE AMINOTRANSFERASE 30.0 U/L (10-37); CREATININE 0.4 mg/dL (0.5-1.0); GLOMERULAR FILTR. RATE CALC 115.0 mL/min (>90); GLUCOSE,RANDOM 247.0 mg/dL (70-105); SODIUM SERUM 136.0 mmol/L (136-145); TOTAL PROTEIN, SERUM 5.9 g/dL (6.0-8.3); UREA NITROGEN, BLOOD 14.0 mg/dL (7-18)
--- NOTE | 2025-08-18 07:05 | PN ---
[facility] Cardiology Progress Note CARDIOLOGY PROGRESS NOTE AUGUST 18, 2025 Problems: 1. Non ST-elevation [place] complicated by cardiogenic shock and complete heart block status post Impella placement in the right common femoral artery transvenous pacemaker 2. CAD with total occlusion of the right coronary artery unable to cross with a wire , of note the patient had a 30-40% RCA stenosis in April of this year raising possibility of spasm and or plaque rupture. LV ejection fraction of 50% with hypokinesis of the infero base by echo this admission 3. Cocaine abuse , tox screen positive for cocaine and benzodiazepines 4. Diabetes mellitus type 2 uncontrolled 5. Tobacco dependence 6. Remote CVA 2008 7. Noncompliance history, the patient has been seen in the hospital but has not followed up in the office. 8. Dyslipidemia 9. Urinary tract infection 10. Bacteremia one of two sets possibly contamination 11. Thrombocytopenia Blood pressure is running 101 10 systolic. Heart rate is 90s. She has good breath sounds bilaterally. She is alert and oriented. White count 8.5 hemoglobin has dropped to seven platelet count 25933. Potassium 0.0 BUN 14 creatinine 0.4. Chest x-ray shows clear lung melchor no effusions or infiltrates no pneumothorax. Impella pump is in place. She has had no chest pain or shortness of breath. Impella site shows no hematoma. Extremities are warm and she still has Doppler pulses peripherally. She does complain today of right shoulder pain. This is easily reproducible by palpation of the shoulder. She has not recall any fall at home. We will obtain an x-ray of the shoulder. The patient has been followed by CT surgery and plans are for aortocoronary bypass graft surgery this week. CHIRAG GATES MD Aug 18, 2025 07:05
--- NOTE | 2025-08-18 07:32 | HMCIMG ---
EXAM: CR Chest, single view. CLINICAL HISTORY: Hypoxic respiratory failure. COMPARISON: Prior chest radiograph dated August 17, 2025. FINDINGS: A probable left ventricular assistive device is identified with a tip in the left ventricle and in the descending thoracic aorta. The lungs show no infiltrate or other acute findings. Atherosclerotic calcification of the aortic arch. No pleural effusion or pneumothorax. The cardiomediastinal silhouette is within normal limits. No acute osseous abnormality. IMPRESSION: No acute cardiopulmonary pathology is evident. A probable left ventricular assistive device is identified with a tip in the left ventricle and in the descending thoracic aorta. Compared to the prior study, there is no significant interval change. /[place]
[2025-08-18 07:44] LABS: NUCLEATED RED BLOOD CELLS 0.0 % (0.0-0.19); PLATELET COUNT (AUTO) 130.0 K/uL (130-400); RED BLOOD CELL COUNT(AUTO) 2.45 MIL/uL (4.00-5.50); RED CELL DISTRIBUTION WIDTH 12.3 % (11.0-15.5); WHITE BLOOD COUNT (AUTO) 9.1 K/uL (4.8-10.8)
[2025-08-18] MEDS: VANCOMYCIN 1G/250ML KIT 250 ML IV SCH (07:57)
[2025-08-18] MEDS: ALBUMIN (HUMAN) 25% 50 ML IV SCH (10:07)
--- NOTE | 2025-08-18 11:31 | HMCIMG ---
EXAM: CR right Shoulder, 1 View. CLINICAL HISTORY: Right shoulder pain COMPARISON: None provided. FINDINGS: Only a single view was provided. BONES: No acute fracture or aggressive appearing osseous lesion. JOINTS: No dislocation. The joint spaces are normal. SOFT TISSUES: The soft tissues are unremarkable. Right PICC line with tip projecting over the right lung apex, right brachiocephalic vein area. IMPRESSION: No acute abnormality evident on examination of the right shoulder. No acute fracture or dislocation. A subtle bone abnormality or fracture may not be readily apparent on x-rays, thus clinical correlation and further imaging including follow up CT, MRI, or follow up x-rays are advised as needed. /[place]
--- NOTE | 2025-08-18 11:39 | PN ---
[facility] PROGRESS NOTE Date of Service: Aug 18, 2025 Time of Service: 11:38 SUBJECTIVE: This is a 60-year-old female with underlying history of obesity, coronary artery disease, poorly controlled type 2 diabetes mellitus, history of anemia, history of cocaine use, tobacco use disorder, history of CVA in 2008, who presented to the ER for further evaluation of severe substernal chest pain and shortness of breadth. Patient reports having history of cocaine use with last use of cocaine yesterday. She reports having severe substernal chest pain that started today in it has been associated with dizziness, and generalized malaise. Pain is 10/ 0 in severity. Patient denies any syncope or fall. She has been having lightheadedness with ambulation. She has not been able to follow up with Cardiology as outpatient. She has a previous history of abnormal CT coronary angiography when she was hospitalized in 04/2025 and she was treated medically. With regards to type 2 diabetes mellitus, she reports being on metformin as ou tpatient. On presentation to the hospital, patient was noted to be hypotensive with blood pressure of 80/60 with heart rate of 40 with EKG showing complete heart block. Labs [place] [address], hemoglobin 12.4, platelet count of 697244. BMP showed sodium of 133, potassium 4.8, chloride of 99, BUN of 21, creatinine 1.0, blood glucose of 403, [place] [address]. Chest x-ray showed no acute infiltrates. Patient will be admitted for further management of cardiogenic shock, NSTEMI, complete heart block with history of poorly controlled type 2 diabetes mellitus. Patient will be emergently taken to the custodial laborer for cardiac catheterization/ PCI and tentative plan for MCS support. Patient will be admitted to intensive care unit and she remains critically ill. 08/14 patient remains critically ill requiring Impella and dopamine support. UDS has demonstrated benzos and cocaine 08/15 patient remains on Impella 08/16 patient appears to be resting comfortably in bed. She remains on Impella and dopamine support. She reports she would like to be bathed and wants her hair combed significant and she is feeling better 08/17 patient is on GI soft diet tolerating well. She remains on Impella support 08/18 patient is resting comfortably in bed. She remains on Impella. Tolerating oral intake. REVIEW OF SYSTEMS CONSTITUTIONAL: generalized fatigue, malaise NEUROLOGICAL: Denies headache, amaurosis fugax, motor weakness, sensory deficit, vertigo/spinning sensation, gait abnormalities, or tremors. ENT: No hearing loss, otalgia, otorrhea, rhinitis, rhinorrhea, hoarseness, or sore throat. CARDIOVASCULAR: chest pain, Shortness of breath, dizziness, lightheadedness PULMONARY: Denies any shortness of breath, cough, phlegm/sputum, hemoptysis, pleuritic chest pain. SLEEP: Denies morning headaches, daytime somnolence or napping. Denies difficulty falling asleep, staying asleep, waking from sleep. Denies knowledge of snoring. GASTROINTESTINAL: Reports having nausea, Denies any type of dysphagia to either liquids or solids. Denies vomiting, pyrosis, early satiety, abdominal pain, diarrhea, constipation, or changes in stool consistency or caliber. Denies coffee-ground emesis, hematemesis, hematochezia, or melanotic stools. GENITOURINARY: Denies frequency, urgency, nocturia, hematuria or incontinence (Storage/Irritative symptoms.) Low urinary stream, straining to void, urinary intermittency or hesitancy, splitting of the voiding stream, terminal dribbling. ENDOCRINOLOGIC: Denies polyuria, polydipsia, polyphagia or heat/cold intolerances. HEMATOLOGIC: Denies thrombophilia/previous clots, or coagulopathy/bleeding disorders. ONCOLOGIC: Denies personal history of malignancy. DERMATOLOGIC: Denies rashes or pruritus. PSYCHIATRIC: Denies any suicidal or homicidal ideation. Denies hallucinations. PHYSICAL EXAM GENERAL APPEARANCE: The patient is awake, appears ill and in mild distress NEUROLOGICAL: Cranial nerves II-XII grossly intact. Motor is 5/5 in bilateral upper and lower extremities proximal to distal. No sensory deficits. HEENT: Face is symmetric. Pupils are equal and reactive. Extraocular movements are intact. NECK: Supple. No JVD. No thyromegaly. No submental, submandibular, pre- /postauricular, occipital or supraclavicular lymphadenopathy. CHEST: Normal chest expansion. No Telemetry. LUNGS: minimal crackles noted of the bilateral lung bases CARDIOVASCULAR: Regular. S1 and S2 normal. No appreciable rubs, murmurs or gallops. ABDOMEN: Soft, nontender, and nondistended. There is no rebound, voluntary guarding, or rigidity. : Deferred. No Coombs. EXTREMITIES: trace edema noted of the bilateral lower extremities SKIN: No skin breakdown. Vital Signs (last 8hr) Date Time Temp Pulse Resp B/P (MAP) Pulse Ox O2 Delivery O2 Flow Rate FiO2 08/18/25 11:13 99 Nasal Cannula* 1 24 08/18/25 11:00 69 17 102/34 (56) 99 08/18/25 10:30 70 17 105/48 (67) 100 08/18/25 10:15 70 17 105/48 (67) 100 08/18/25 10:00 70 17 105/48 (67) 100 08/18/25 09:45 74 16 106/55 (72) 100 08/18/25 09:30 79 18 112/64 (80) 99 08/18/25 09:15 92 17 107/51 (69) 99 08/18/25 09:00 96 14 101/62 (75) 100 08/18/25 08:45 97 16 102/61 (75) 100 08/18/25 08:30 100 18 109/71 (84) 100 08/18/25 08:15 99 16 104/70 (81) 100 08/18/25 08:00 99 Nasal Cannula* 1 24 08/18/25 08:00 99 16 108/68 (81) 100 08/18/25 07:45 97 14 144/60 (88) 98 08/18/25 07:30 98.2 97 17 113/72 (86) 100 08/18/25 07:15 95 12 93/53 (66) 99 08/18/25 07:00 92 14 104/68 (80) 99 08/18/25 06:15 95 15 99/60 (73) 99 08/18/25 06:00 95 14 115/67 (83) 99 08/18/25 05:45 94 14 101/62 (75) 99 08/18/25 05:30 94 15 104/62 (76) 99 08/18/25 05:15 94 13 110/66 (81) 99 08/18/25 05:00 94 13 110/66 (81) 99 08/18/25 04:45 93 16 108/67 (81) 98 08/18/25 04:30 94 18 114/73 (87) 99 08/18/25 04:15 82 21 115/54 (74) 98 08/18/25 04:00 99 Nasal Cannula* 1 24 08/18/25 04:00 97 13 105/55 (72) 98 08/18/25 04:00 98.4 Nasal Cannula 1.0 08/18/25 03:45 93 14 99/60 (73) 99 08/18/25 03:39 94 12 83/55 (64) 98 LABS: Laboratory: Test 08/18/25 07:40 08/18/25 06:57 08/18/25 04:05 08/17/25 22:12 Range/Units White Blood Count 9.1 4.8-10.8 K/uL Red Blood Count 2.45 L 4.00-5.50 MIL/uL Hemoglobin 7.5 L 12.0-16.0 g/dL Hematocrit 21.9 L 36-48 % Mean Corpuscular Volume 89.4 79-99 fL Mean Corpuscular Hemoglobin 30.6 27.0-33.0 pg Mean Corpuscular Hemoglobin Concent 34.2 32.0-36.0 g/dL Red Cell Distribution Width 12.3 11.0-15.5 % Platelet Count 130 130-400 K/uL Mean Platelet Volume 11.1 H 7.5-10.5 fL Nucleated Red Blood Cells 0.0 0.0-0.19 % Whole Blood Glucose 216 H 70-110 MG/DL Immature Granulocyte % (Auto) 1.5 H 0-1 % Neutrophils (%) (Auto) 55.3 40.0-77.0 % Lymphocytes (%) (Auto) 31.9 21.0-51.0 % Monocytes (%) (Auto) 7.2 3.0-13.0 % Eosinophils (%) (Auto) 3.9 0.0-8.0 % Basophils (%) (Auto) 0.2 0.0-5.0 % Neutrophils # (Auto) 4.7 1.8-7.7 K/uL Lymphocytes # (Auto) 2.7 1.0-4.8 K/uL Monocytes # (Auto) 0.6 0.1-1.0 K/uL Eosinophils # (Auto) 0.33 0.00-0.70 K/uL Basophils # (Auto) 0.02 0.00-0.20 K/uL Absolute Immature Granulocyte (auto 0.13 0-1 K/uL Sodium Level 136 136-145 mmol/L Potassium Level 4.0 3.5-5.1 mmol/L Chloride Level 104 101-111 mmol/L Carbon Dioxide Level 26 21-32 mmol/L Blood Urea Nitrogen 14 7-18 mg/dL Creatinine 0.4 L 0.5-1.0 mg/dL Glomerular Filtration Rate Calc 115 >90 mL/min Random Glucose 247 H 70-105 mg/dL Total Calcium 7.8 L 8.5-10.1 mg/dL Total Bilirubin 0.3 0.2-1.0 mg/dL Aspartate Amino Transf (AST/SGOT) 30 10-37 U/L Alanine Aminotransferase (ALT/SGPT) 22 12-78 U/L Alkaline Phosphatase 128 50-136 U/L Total Protein 5.9 L 6.0-8.3 g/dL Albumin 1.8 L 3.5-5.0 g/dL Procalcitonin 0.10 0.05-0.5 ng/mL Activated Partial Thromboplast Time 62.1 H 26.3-35.5 SEC Test 08/17/25 11:51 08/17/25 03:26 Range/Units Iron Level 32 L 50-170 mcg/dL Total Iron Binding Capacity 144 L 250-450 mcg/dL Percent Iron Saturation 22.2 22-44 % Troponin I High Sensitivity 4240 *H 4-50 ng/L Blood Gas Specimen Type Arterial Arterial Blood pH 7.434 7.350-7.450 Arterial Blood Partial Pressure CO2 33 32-45 mmHg Arterial Blood Partial Pressure O2 126.8 H 83.0-108.0 mmHg Arterial Blood HCO3 21.3 21.0-28.0 mmol/L Arterial Blood Oxygen Saturation 97.7 94.0-98.0 % Arterial Blood Base Excess -2.5 L -2.0-3.0 mmol/L Hemoglobin (Blood Gas) 7.9 L 12.0-16.0 g/dL Sodium (Blood Gas) 135 L 136-145 MMOL/L Bedside Potassium (Blood Gas) 3.8 3.4-4.5 MMOL/L Bedside Chloride (Blood Gas) 108 H 98-107 MMOL/L Bedside Glucose (Blood Gas) 191 H 65-95 MG/DL Bedside Ionized Calcium (Blood Gas) 1.06 L 1.15-1.33 MMOL/L Bedside Lactic Acid (Blood Gas) 0.96 H 0.36-0.75 MMOL/L Blood Gas Temperature 37.0 35.5-37.0 CELSIUS Blood Gas Flow-by 3.00 0.00-15.00 L/min Blood Gas Vent Mode NC ROOM AIR FiO2 32.0 % Blood Gas Specimen Comment FAUSTO PAYTON RN Current Medications Medications (Trade) Dose Ordered Sig/Elmer Route PRN Reason Start Time Stop Time Status Last Admin Dose Admin Acetaminophen (TYLenol 325MG TAB) 650 mg Q6H PRN PO MILD PAIN (1-3) 08/13/25 16:30 09/12/25 16:29 08/17/25 21:29 650 MG Acetaminophen (TYLenol 500MG TAB) 500 mg Q6H PRN PO TEMP < 101.1 AND/OR HEADACHE 08/14/25 14:30 09/13/25 14:29 Albumin Human 50 ml @ 0 mls/hr BID IV 08/18/25 09:00 08/23/25 08:59 08/18/25 10:07 50 MLS/HR Aspirin (Aspirin 81mg Chew Tab) 81 mg DAILY PO 08/14/25 09:00 09/13/25 08:59 08/18/25 07:58 81 MG Atorvastatin Calcium (LIPItor 40MG) 40 mg HS PO 08/13/25 21:00 09/12/25 20:59 08/17/25 21:29 40 MG Bisacodyl (DulcoLAX) 10 mg DAILY RC 08/17/25 09:00 08/20/25 08:59 08/18/25 07:58 10 MG Ceftriaxone Sodium (Rocephin 2gm Inj) 2 gm Q24H IVPB 08/14/25 11:30 08/24/25 11:29 08/18/25 11:33 2 GM Chlordiazepoxide HCl (LIBrium 25 MG CAP) 25 mg Q2H PRN PO ALCOHOL WITHDRAWAL PROTOCOL 08/14/25 14:30 08/21/25 14:29 08/16/25 23:38 25 MG Chlordiazepoxide HCl (LIBrium 25 MG CAP) 50 mg Q1H PRN PO ALCOHOL WITHDRAWAL PROTOCOL 08/14/25 14:30 08/21/25 14:29 Dextrose (D50w) 50 ml AD PRN IV HYPOGLYCEMIA PROTOCOL 08/13/25 20:00 09/12/25 19:59 Diphenhydramine HCl (BENAdryl INJ) 25 mg ONCE PRN IV ITCHING 08/15/25 23:00 08/17/25 22:59 DC Docusate Sodium (COLace 100MG CAP) 100 mg BID PRN PO CONSTIPATION 08/14/25 11:00 09/13/25 10:59 Dopamine HCl/ Dextrose 250 ml @ 0 mls/hr PROTOCOL IV 08/13/25 16:00 09/12/25 15:59 08/16/25 16:41 3 MLS/HR Folic Acid (FOLic ACID 1 MG TABLET) 1 mg DAILY PO 08/15/25 09:00 08/17/25 09:01 DC 08/17/25 07:46 1 MG Glucagon (Glucagon 1mg Kit) 1 mg AD PRN IM HYPOGLYCEMIA PROTOCOL 08/13/25 20:00 09/12/25 19:59 Heparin Sodium (Porcine) (HEParin 5,000 UNIT VIAL) *calculation based on ACTUAL B... AD PRN IV HEPARIN PROTOCOL 08/13/25 16:30 09/12/25 16:29 08/17/25 04:46 3,175 UNIT Heparin Sodium/ Dextrose 250 ml @ 0 mls/hr Q6H IV 08/13/25 16:30 09/12/25 16:29 08/18/25 05:22 11.78 MLS/HR Insulin Glargine (LANtus 100 UNITS/ML 10 ML VIAL) 5 units BID@0730,2100 SQ 08/16/25 21:00 08/17/25 09:31 DC 08/16/25 21:21 5 UNITS Insulin Glargine (LANtus 100 UNITS/ML 10 ML VIAL) 10 units HS SQ 08/13/25 21:00 08/14/25 06:16 DC 08/13/25 20:21 10 UNITS Insulin Glargine (LANtus 100 UNITS/ML 10 ML VIAL) 20 units DAILY SQ 08/14/25 09:00 08/15/25 07:24 DC 08/14/25 08:01 20 UNITS Insulin Glargine (LANtus 100 UNITS/ML 10 ML VIAL) 30 units DAILY SQ 08/15/25 09:00 08/16/25 07:19 DC 08/15/25 08:28 30 UNITS Insulin Glargine (LANtus 100 UNITS/ML 10 ML VIAL) 35 units DAILY SQ 08/16/25 09:00 09/15/25 08:59 08/18/25 07:59 35 UNITS Insulin Human Lispro (HumaLOG LISpro 100 UNIT/ML 3ML) INSULIN SLIDING SCAL... ACHS SQ 08/16/25 21:00 08/17/25 09:31 DC Insulin Human Regular (humuLIN R 100 UNIT/ML 3ML) 5 unit TIDAC SQ 08/14/25 17:00 08/15/25 07:24 DC 08/15/25 07:03 5 UNIT Insulin Human Regular (humuLIN R 100 UNIT/ML 3ML) 8 unit TIDAC SQ 08/15/25 07:30 08/15/25 22:46 DC 08/15/25 16:02 8 UNIT Insulin Human Regular (humuLIN R 100 UNIT/ML 3ML) 10 unit TIDAC SQ 08/16/25 07:30 08/17/25 21:12 DC 08/17/25 16:09 10 UNIT Insulin Human Regular (humuLIN R 100 UNIT/ML 3ML) 12 unit TIDAC SQ 08/18/25 07:30 09/17/25 07:29 08/18/25 08:01 12 UNIT Insulin Human Regular (humuLIN R 100 UNIT/ML 3ML) INSULIN SLIDING SCAL... ACHS SQ 08/17/25 16:30 09/16/25 16:29 08/18/25 08:00 4 UNIT Insulin Human Regular (humuLIN R 100 UNIT/ML 3ML) INSULIN SLIDING SCAL... ACHS SQ 08/13/25 16:30 08/16/25 20:46 DC 08/16/25 20:01 4 UNIT Magnesium Sulfate 50 ml @ 0 mls/hr PROTOCOL IV 08/13/25 16:30 09/12/25 16:29 08/16/25 06:03 25 MLS/HR Morphine Sulfate (morPHINE 4MG SYG) 2 mg Q6H PRN IVP SEVERE PAIN (7-10) 08/14/25 09:30 08/21/25 09:29 08/18/25 10:07 2 MG Multivitamins Therapeutic (Multivitamin Tablet) 1 tab DAILY PO 08/15/25 09:00 09/14/25 08:59 08/18/25 07:57 1 TAB Norepinephrine 250 ml @ 0 mls/hr PROTOCOL IV 08/13/25 15:30 09/12/25 15:29 Ondansetron HCl (zoFRAN 4MG INJ) 4 mg Q4H PRN IV NAUSEA 08/14/25 14:30 09/13/25 14:29 08/14/25 14:17 4 MG Ondansetron HCl (zoFRAN 4MG INJ) 4 mg Q6H PRN IVP NAUSEA/VOMITING 08/13/25 16:30 08/14/25 14:08 DC Pantoprazole Sodium (PROTonix 40MG INJ) 40 mg Q12H IVP 08/17/25 16:30 09/12/25 16:29 08/18/25 05:17 40 MG Pantoprazole Sodium (PROTonix 40MG INJ) 40 mg Q24H IVP 08/13/25 16:30 08/17/25 11:10 DC 08/16/25 16:07 40 MG Pharmacy Profile Note (Pharmacy Communication) 1 each PROTOCOL PRN MISC ETOH Withdrawal Score changes 08/14/25 14:30 08/14/25 14:08 DC Polyethylene Glycol (MIRalax 3350 17 GM POWD.PACK) 17 gm DAILY PO 08/15/25 09:00 09/14/25 08:59 08/18/25 07:57 17 GM Potassium Chloride 100 ml @ 100 mls/hr AD PRN IV POTASSIUM PROTOCOL 08/13/25 16:30 09/12/25 16:29 08/16/25 16:07 100 MLS/HR Potassium Chloride (K-Dur/Klor-Con 20meq) 20 meq AD PRN PO POTASSIUM PROTOCOL 08/13/25 16:30 09/12/25 16:29 08/15/25 08:23 20 MEQ Potassium Chloride (KCl 10% Elixir 20meq/15ml) 20 meq AD PRN PO POTASSIUM PROTOCOL 08/13/25 16:30 09/12/25 16:29 Promethazine HCl (Phenergan) 25 mg Q6H PRN PO NAUSEA 08/14/25 14:30 09/13/25 14:29 Sodium Bicarbonate 25 meq/Dextrose 1,000 ml @ 0 mls/hr Q0M IV 08/14/25 00:30 09/13/25 00:29 08/14/25 00:21 14.5 MLS/HR Sodium Bicarbonate 25 meq/Dextrose 1,000 ml @ 0 mls/hr Q0M IVP 08/14/25 00:30 08/14/25 00:15 DC Thiamine HCl (Vitamin B-1) 300 mg DAILY IV 08/15/25 09:00 08/17/25 09:01 DC 08/17/25 07:46 300 MG Ticagrelor (BRILinta) 90 mg BID PO 08/14/25 09:00 08/14/25 21:19 DC 08/14/25 20:09 90 MG Vancomycin HCl 250 ml @ 125 mls/hr Q12H IV 08/18/25 09:00 08/28/25 08:59 08/18/25 07:57 125 MLS/HR Vancomycin HCl (Vancomycin Protocol) 1 each AD IV 08/17/25 22:00 08/31/25 21:59 DIAGNOSTICS / RADIOLOGY: [ ] ASSESSMENT: Cardiogenic shock with lactic acidosis, POA NSTEMI/ACS, POA Complete heart block, POA History of multivessel coronary artery disease, POA History of cocaine use disorder, POA Severe nonketotic hyperglycemia, POA History of to poorly controlled type 2 diabetes mellitus, POA Lactic acidosis, POA History of anemia, POA History of gastritis, POA History of hypertension, POA History of PTSD/anxiety, POA Obesity, POA Medical noncompliance, POA PLAN: Continue ceftriaxone Trend WBCs Follow-up blood cultures O2 nasal cannula as needed Follow up with Critical care, appreciate assistance Continue aspirin, atorvastatin, Brilinta Monitor blood pressure Follow up with CT surgery -tentative plans for aortocoronary bypass graft later this week Follow up with Cardiology Continue dopamine Continue Impella support Continue GI soft diet Continue GI prophylaxis with pantoprazole No need for IV fluids Trend a.m. BMP Replete electrolytes as necessary Continue heparin drip DVT prophylaxis with heparin Trend a.m. CBC Follow up With endocrinology Continue insulin sliding scale Continue Lantus 20 units Daily Full code Case was discussed with patient's nurse at bedside Critical care Attention time greater than 30 minutes CHRISTIAN MACHUCA IV, MD Aug 18, 2025 11:39
[2025-08-18] MEDS: LIDOCAINE 4% ADH..PATCH TP ONE (13:52)
--- NOTE | 2025-08-18 14:12 | PN ---
[facility] PROGRESS NOTE Date Patient Seen: Aug 18, 2025 Time of Visit: 14:01 Supervising Physician: Dr Martha Neville Consulting Physician: Hospitalist Outpatient Specialists: [ ] Inpatient Consults: [ ] PROBLEM LIST: Cardiogenic shock SCAI stage D status post cardiac catheterization with multivessel disease, Impella placement Complete heart block, status post transvenous temporary pacemaker placement Acute hypoxic respiratory failure, NSTEMI, POA Bactermia + Staph Cohni urealyticum DM type 2, with hyperglycemia, HGB A1c of 10.7 Cocaine abuse Tobacco use, current smoker History of CVA INTERVAL HISTORY: Patient was seen and examined, she is resting comfortably in bed currently on nasal cannula at 2 L, good O2 saturations She is reporting no pain or discomfort. She continues on the Impella at P7, dopamine is off Tolerating her diet Nursing reports no acute events overnight she is afebrile Vitals are stable Plan: Neurovascular checks to extremities Telemetry Follow Cardiothoracic Surgical recommendations Antibiotics and cultures Critical care time 51 minutes, this time excludes any time spent on education or procedures. Patient requiring Impella support REVIEW OF SYSTEMS: 12 point ROS reviewed with patient. Pertinent positives mentioned above. Otherwi se negative. PHYSICAL EXAM: GENERAL: alert, weak, awake oriented x 3 HEENT: EOMI, Sclera non icteric, moist mucosa NECK: Supple, no JVD, trachea midline LUNGS: Clear breath sounds bilaterally. No wheezes HEART: TVP Normal S1 and S2, without murmurs ABD: Abdomen soft, nontender. Bowel sounds present EXT: No clubbing cyanosis or edema NEURO: Alert and oriented to person, follows commands Vital Signs (last 8hr) Date Time Temp Pulse Resp B/P (MAP) Pulse Ox O2 Delivery O2 Flow Rate FiO2 08/18/25 11:13 99 Nasal Cannula* 1 24 08/18/25 11:00 69 17 102/34 (56) 99 08/18/25 10:30 70 17 105/48 (67) 100 08/18/25 10:15 70 17 105/48 (67) 100 08/18/25 10:00 70 17 105/48 (67) 100 08/18/25 09:45 74 16 106/55 (72) 100 08/18/25 09:30 79 18 112/64 (80) 99 08/18/25 09:15 92 17 107/51 (69) 99 08/18/25 09:00 96 14 101/62 (75) 100 08/18/25 08:45 97 16 102/61 (75) 100 08/18/25 08:30 100 18 109/71 (84) 100 08/18/25 08:15 99 16 104/70 (81) 100 08/18/25 08:00 99 Nasal Cannula* 1 24 08/18/25 08:00 99 16 108/68 (81) 100 08/18/25 07:45 97 14 144/60 (88) 98 08/18/25 07:30 98.2 97 17 113/72 (86) 100 08/18/25 07:15 95 12 93/53 (66) 99 08/18/25 07:00 92 14 104/68 (80) 99 08/18/25 06:15 95 15 99/60 (73) 99 LABS: Hematology Labs: Test 08/18/25 07:40 08/18/25 04:05 Range/Units White Blood Count 9.1 4.8-10.8 K/uL Red Blood Count 2.45 L 4.00-5.50 MIL/uL Hemoglobin 7.5 L 12.0-16.0 g/dL Hematocrit 21.9 L 36-48 % Mean Corpuscular Volume 89.4 79-99 fL Mean Corpuscular Hemoglobin 30.6 27.0-33.0 pg Mean Corpuscular Hemoglobin Concent 34.2 32.0-36.0 g/dL Red Cell Distribution Width 12.3 11.0-15.5 % Platelet Count 130 130-400 K/uL Mean Platelet Volume 11.1 H 7.5-10.5 fL Nucleated Red Blood Cells 0.0 0.0-0.19 % Immature Granulocyte % (Auto) 1.5 H 0-1 % Neutrophils (%) (Auto) 55.3 40.0-77.0 % Lymphocytes (%) (Auto) 31.9 21.0-51.0 % Monocytes (%) (Auto) 7.2 3.0-13.0 % Eosinophils (%) (Auto) 3.9 0.0-8.0 % Basophils (%) (Auto) 0.2 0.0-5.0 % Neutrophils # (Auto) 4.7 1.8-7.7 K/uL Lymphocytes # (Auto) 2.7 1.0-4.8 K/uL Monocytes # (Auto) 0.6 0.1-1.0 K/uL Eosinophils # (Auto) 0.33 0.00-0.70 K/uL Basophils # (Auto) 0.02 0.00-0.20 K/uL Absolute Immature Granulocyte (auto 0.13 0-1 K/uL Chemistry Labs: Test 08/18/25 11:37 08/18/25 04:05 08/17/25 11:51 Range/Units Whole Blood Glucose 281 H 70-110 MG/DL Sodium Level 136 136-145 mmol/L Potassium Level 4.0 3.5-5.1 mmol/L Chloride Level 104 101-111 mmol/L Carbon Dioxide Level 26 21-32 mmol/L Blood Urea Nitrogen 14 7-18 mg/dL Creatinine 0.4 L 0.5-1.0 mg/dL Glomerular Filtration Rate Calc 115 >90 mL/min Random Glucose 247 H 70-105 mg/dL Total Calcium 7.8 L 8.5-10.1 mg/dL Total Bilirubin 0.3 0.2-1.0 mg/dL Aspartate Amino Transf (AST/SGOT) 30 10-37 U/L Alanine Aminotransferase (ALT/SGPT) 22 12-78 U/L Alkaline Phosphatase 128 50-136 U/L Total Protein 5.9 L 6.0-8.3 g/dL Albumin 1.8 L 3.5-5.0 g/dL Procalcitonin 0.10 0.05-0.5 ng/mL Iron Level 32 L 50-170 mcg/dL Total Iron Binding Capacity 144 L 250-450 mcg/dL Percent Iron Saturation 22.2 22-44 % Troponin I High Sensitivity 4240 *H 4-50 ng/L Coagulation Labs: Test 08/17/25 22:12 Range/Units Activated Partial Thromboplast Time 62.1 H 26.3-35.5 SEC DIAGNOSTICS / RADIOLOGY RESULTS: [ ] PLAN NEURO: Minimize central acting medications as possible. Fall Precautions. Well lighted room through the day and minimize interruptions through the night to prevent acute delirium. PULMONARY: Supplemental 02 as needed Titrate Fio2 to keep Spo2 > or = 90% DuoNebs and CPT as needed IS hourly while awake for pulmonary hygiene CARDIOVASCULAR: Follow hemodynamics. Titrate vasopressor to keep MAP >65 or systolic blood pressure >95mmHg DIPS: Dopamine wean as tolerated to maintain perfusion map above 65 Heparin gtt LINES: Peripheral IV CVP Impella GI & NUTRITION: Continue nutritional support Aspirations precautions Prokinetic agents and laxatives as needed Clear liquid diet as tolerated KIDNEYS & ELECTROLYTES: Strict monitoring of intake and output Daily weights Avoid nephrotoxic agents Monitor electrolytes and replace as needed Goal urine output of 30mL/hr or 0.5mL/kg/hr Urine output 2.3 L I&O balance-1.9 L ENDOCRINE: Maintain blood glucose between 100-180 at all times. Insulin sliding scale for blood glucose management INFECTIOUS DISEASE: Trend temperature. Astudillo-culture if febrile. Micro: [ ] Urine culture Blood culture Antibiotics: [ ] Rocephin HEMATOLOGY & COAGULATION: Monitor H&H. Keep Hgb > 7 Transfuse 1 unit of PRBC for Hgb < 7 Transfuse 1 pack of platelets of platelets < 20, 000 Watch for any signs and symptoms of bleeding SKIN: Pressure ulcer prevention per facility protocol Rehab: PT/OT Prophylaxis: GI: PPI DVT: SCDs patient on heparin drip Code Status: Full Resuscitation Disposition: ICU CHIRAG HURTADO PAC Aug 18, 2025 14:12
--- NOTE | 2025-08-18 14:49 | PN ---
PROGRESS NOTE Date of Service: Aug 18, 2025 Time of Service: :26 SUBJECTIVE: This is a 60-year-old female with underlying history of obesity, coronary artery disease, poorly controlled type 2 diabetes mellitus, history of anemia, history of cocaine use, tobacco use disorder, history of CVA in 2008, who presented to the ER with severe substernal chest pain and shortness of breath. She is admitted for further evaluation and management of NSTEMI , Cardiogenic shock. She underwent left heart catheterization and was placed on Impella on 08.13.25. We are consulted for thrombocytopenia .Her platelets were 2,09,000 at the time of admission and today its 1,30,000 . Patient continues to be on P7 Impella . Her vitals are stable . Patient is pending CABG for severe CAD . REVIEW OF SYSTEMS CONSTITUTIONAL: Denies fever, chills, or fatigue. HEAD/FACE: No signs of trauma. EENT: Denies eye pain, blurred vision, double vision, or light sensitivity. RESPIRATORY: Denies shortness of breath, cough, wheezing CARDIOVASCULAR: Denies chest pain, palpitation, syncope GASTROINTESTINAL/ABDOMINAL: Denies abdominal pain, constipation, diarrhea, nausea or vomiting GENITOURINARY: Denies dysuria or hematuria. MUSCULOSKELETAL: Denies joint pain, tenderness, or trauma. INTEGUMENTARY: Denies rash or itchiness NEUROLOGICAL/PSYCH: Denies anxiety, depression, heat or cold intolerance. PHYSICAL EXAM EYES: Anicteric. Pupils equal and reactive. HENT: No oral thrush seen, moist Oral mucosa NECK: Supple, no JVD or thyromegaly. LUNGS: Good air entry. No rales, no rhonchi. CARDIOVASCULAR: S1, S2 regular. No murmur heard. ABDOMEN: Soft, non tender, bowel sounds present, no organomegaly CENTRAL NERVOUS SYSTEM: Awake, alert, oriented x 3. No focal deficits. SKIN: No rashes, no swelling. LYMPHATICS: No peripheral lymphadenopathy MUSCULOSKELETAL: No joint swelling, erythema or tenderness. EXTREMITIES: No cyanosis or clubbing BACK: No deformity, no pressure ulcer. GENITOURINARY: No dysuria or hematuria Vital Signs (last 8hr) Date Time Temp Pulse Resp B/P (MAP) Pulse Ox O2 Delivery O2 Flow Rate FiO2 08/18/25 14:00 72 22 125/52 (76) 99 08/18/25 13:00 72 26 115/52 (73) 97 08/18/25 12:00 98.1 72 19 100/42 (61) 100 08/18/25 11:13 99 Nasal Cannula* 1 24 08/18/25 11:00 69 17 102/34 (56) 99 08/18/25 10:30 70 17 105/48 (67) 100 08/18/25 10:15 70 17 105/48 (67) 100 08/18/25 10:00 70 17 105/48 (67) 100 08/18/25 09:45 74 16 106/55 (72) 100 08/18/25 09:30 79 18 112/64 (80) 99 08/18/25 09:15 92 17 107/51 (69) 99 08/18/25 09:00 96 14 101/62 (75) 100 08/18/25 08:45 97 16 102/61 (75) 100 08/18/25 08:30 100 18 109/71 (84) 100 08/18/25 08:15 99 16 104/70 (81) 100 08/18/25 08:00 99 Nasal Cannula* 1 24 08/18/25 08:00 99 16 108/68 (81) 100 08/18/25 07:45 97 14 144/60 (88) 98 08/18/25 07:30 98.2 97 17 113/72 (86) 100 08/18/25 07:15 95 12 93/53 (66) 99 08/18/25 07:00 92 14 104/68 (80) 99 LABS: Laboratory: Test 08/18/25 11:37 08/18/25 07:40 08/18/25 04:05 08/17/25 22:12 Range/Units Whole Blood Glucose 281 H 70-110 MG/DL White Blood Count 9.1 4.8-10.8 K/uL Red Blood Count 2.45 L 4.00-5.50 MIL/uL Hemoglobin 7.5 L 12.0-16.0 g/dL Hematocrit 21.9 L 36-48 % Mean Corpuscular Volume 89.4 79-99 fL Mean Corpuscular Hemoglobin 30.6 27.0-33.0 pg Mean Corpuscular Hemoglobin Concent 34.2 32.0-36.0 g/dL Red Cell Distribution Width 12.3 11.0-15.5 % Platelet Count 130 130-400 K/uL Mean Platelet Volume 11.1 H 7.5-10.5 fL Nucleated Red Blood Cells 0.0 0.0-0.19 % Immature Granulocyte % (Auto) 1.5 H 0-1 % Neutrophils (%) (Auto) 55.3 40.0-77.0 % Lymphocytes (%) (Auto) 31.9 21.0-51.0 % Monocytes (%) (Auto) 7.2 3.0-13.0 % Eosinophils (%) (Auto) 3.9 0.0-8.0 % Basophils (%) (Auto) 0.2 0.0-5.0 % Neutrophils # (Auto) 4.7 1.8-7.7 K/uL Lymphocytes # (Auto) 2.7 1.0-4.8 K/uL Monocytes # (Auto) 0.6 0.1-1.0 K/uL Eosinophils # (Auto) 0.33 0.00-0.70 K/uL Basophils # (Auto) 0.02 0.00-0.20 K/uL Absolute Immature Granulocyte (auto 0.13 0-1 K/uL Sodium Level 136 136-145 mmol/L Potassium Level 4.0 3.5-5.1 mmol/L Chloride Level 104 101-111 mmol/L Carbon Dioxide Level 26 21-32 mmol/L Blood Urea Nitrogen 14 7-18 mg/dL Creatinine 0.4 L 0.5-1.0 mg/dL Glomerular Filtration Rate Calc 115 >90 mL/min Random Glucose 247 H 70-105 mg/dL Total Calcium 7.8 L 8.5-10.1 mg/dL Total Bilirubin 0.3 0.2-1.0 mg/dL Aspartate Amino Transf (AST/SGOT) 30 10-37 U/L Alanine Aminotransferase (ALT/SGPT) 22 12-78 U/L Alkaline Phosphatase 128 50-136 U/L Total Protein 5.9 L 6.0-8.3 g/dL Albumin 1.8 L 3.5-5.0 g/dL Procalcitonin 0.10 0.05-0.5 ng/mL Activated Partial Thromboplast Time 62.1 H 26.3-35.5 SEC Test 08/17/25 11:51 08/17/25 03:26 Range/Units Iron Level 32 L 50-170 mcg/dL Total Iron Binding Capacity 144 L 250-450 mcg/dL Percent Iron Saturation 22.2 22-44 % Troponin I High Sensitivity 4240 *H 4-50 ng/L Blood Gas Specimen Type Arterial Arterial Blood pH 7.434 7.350-7.450 Arterial Blood Partial Pressure CO2 33 32-45 mmHg Arterial Blood Partial Pressure O2 126.8 H 83.0-108.0 mmHg Arterial Blood HCO3 21.3 21.0-28.0 mmol/L Arterial Blood Oxygen Saturation 97.7 94.0-98.0 % Arterial Blood Base Excess -2.5 L -2.0-3.0 mmol/L Hemoglobin (Blood Gas) 7.9 L 12.0-16.0 g/dL Sodium (Blood Gas) 135 L 136-145 MMOL/L Bedside Potassium (Blood Gas) 3.8 3.4-4.5 MMOL/L Bedside Chloride (Blood Gas) 108 H 98-107 MMOL/L Bedside Glucose (Blood Gas) 191 H 65-95 MG/DL Bedside Ionized Calcium (Blood Gas) 1.06 L 1.15-1.33 MMOL/L Bedside Lactic Acid (Blood Gas) 0.96 H 0.36-0.75 MMOL/L Blood Gas Temperature 37.0 35.5-37.0 CELSIUS Blood Gas Flow-by 3.00 0.00-15.00 L/min Blood Gas Vent Mode NC ROOM AIR FiO2 32.0 % Blood Gas Specimen Comment FAUSTO PAYTON RN DIAGNOSTICS / RADIOLOGY: [ ] ASSESSMENT: 1. Thrombocytopenia 2. Anemia 3. NSTEMI, POA 4. Cardiogenic shock SCAI stage D status post cardiac catheterization with multivessel disease, Impella placement POA 5. Complete heart block, status post transvenous temporary pacemaker placement POA 6. CAD, with multivessel disease, POA 7. DM type 2, with hyperglycemia, poorly controlled, HGB A1c of 10.7 POA PLAN: 1.Peripheral blood smear showed macrocytic RBCs. There is no fragment cells or schistocyte .There is no tear drop cell. No rouleaux phenomena. No pelger-Huet cell, there were few premature atrial white blood cells with hypersegmented neutrophils might be secondary to infection. Platelet was normal in morphology and count. There is no evidence of heparin-induced thrombocytopenia. Patient can be continued on heparin. HIT antibody assay .There was hypersegmented neutrophils . This patient to be started on Folic acid 1 mg PO , daily and vitamin B 12 1000 mcg po daily . 2. Patient has anemia- Iron levels are normal . ATTESTATION BY PHYSICIAN I have seen and examined the patient. I reviewed the documentation, medical decision making, and treatment plan as noted by the resident physician above. I agree with the findings and plan of care. GEOFFREY MENARD MD, MD Aug 18, 2025 14:49
--- NOTE | 2025-08-18 17:37 | PN ---
[facility] PROGRESS NOTE Date Patient Seen: Aug 18, 2025 Time of Visit: 17:30 Supervising Physician: [ ] Consulting Physician: Hospitalist Outpatient Specialists: [ ] Inpatient Consults: [ ] PROBLEM LIST: Cardiogenic shock SCAI stage D status post cardiac catheterization with multivessel disease, Impella placement Complete heart block, status post transvenous temporary pacemaker placement Acute hypoxic respiratory failure, NSTEMI, POA Bactermia + Staph Cohni urealyticum DM type 2, with hyperglycemia, HGB A1c of 10.7 Cocaine abuse Tobacco use, current smoker History of CVA INTERVAL HISTORY: Patient complained of right shoulder pain, for which an X-ray was obtained. The X-ray did not reveal any fractures. Orthopedics has been consulted for further evaluation. Patient was seen and examined, she is resting comfortably in bed currently on nasal cannula at 2 L, good O2 saturations She is reporting no pain or discomfort. She continues on the Impella at P7, dopamine is off Tolerating her diet Nursing reports no acute events overnight she is afebrile Vitals are stable Plan: Neurovascular checks to extremities Telemetry Follow Cardiothoracic Surgical recommendations Antibiotics and cultures Critical care time 51 minutes, this time excludes any time spent on education or procedures. Patient requiring Impella support REVIEW OF SYSTEMS: 12 point ROS reviewed with patient. Pertinent positives mentioned above. Otherwise negative. PHYSICAL EXAM: GENERAL: alert, weak, awake oriented x 3 HEENT: EOMI, Sclera non icteric, moist mucosa NECK: Supple, no JVD, trachea midline LUNGS: Clear breath sounds bilaterally. No wheezes HEART: TVP Normal S1 and S2, without murmurs ABD: Abdomen soft, nontender. Bowel sounds present EXT: No clubbing cyanosis or edema NEURO: Alert and oriented to person, follows commands Vital Signs (last 8hr) Date Time Temp Pulse Resp B/P (MAP) Pulse Ox O2 Delivery O2 Flow Rate FiO2 08/18/25 17:00 76 21 113/47 (69) 98 08/18/25 16:00 72 25 115/46 (69) 98 08/18/25 15:30 99 Nasal Cannula* 1 24 08/18/25 15:00 72 26 117/41 (66) 98 08/18/25 14:00 72 22 125/52 (76) 99 08/18/25 13:00 72 26 115/52 (73) 97 08/18/25 12:00 98.1 72 19 100/42 (61) 100 08/18/25 11:13 99 Nasal Cannula* 1 24 08/18/25 11:00 69 17 102/34 (56) 99 08/18/25 10:30 70 17 105/48 (67) 100 08/18/25 10:15 70 17 105/48 (67) 100 08/18/25 10:00 70 17 105/48 (67) 100 08/18/25 09:45 74 16 106/55 (72) 100 LABS: Hematology Labs: Test 08/18/25 07:40 08/18/25 04:05 Range/Units White Blood Count 9.1 4.8-10.8 K/uL Red Blood Count 2.45 L 4.00-5.50 MIL/uL Hemoglobin 7.5 L 12.0-16.0 g/dL Hematocrit 21.9 L 36-48 % Mean Corpuscular Volume 89.4 79-99 fL Mean Corpuscular Hemoglobin 30.6 27.0-33.0 pg Mean Corpuscular Hemoglobin Concent 34.2 32.0-36.0 g/dL Red Cell Distribution Width 12.3 11.0-15.5 % Platelet Count 130 130-400 K/uL Mean Platelet Volume 11.1 H 7.5-10.5 fL Nucleated Red Blood Cells 0.0 0.0-0.19 % Immature Granulocyte % (Auto) 1.5 H 0-1 % Neutrophils (%) (Auto) 55.3 40.0-77.0 % Lymphocytes (%) (Auto) 31.9 21.0-51.0 % Monocytes (%) (Auto) 7.2 3.0-13.0 % Eosinophils (%) (Auto) 3.9 0.0-8.0 % Basophils (%) (Auto) 0.2 0.0-5.0 % Neutrophils # (Auto) 4.7 1.8-7.7 K/uL Lymphocytes # (Auto) 2.7 1.0-4.8 K/uL Monocytes # (Auto) 0.6 0.1-1.0 K/uL Eosinophils # (Auto) 0.33 0.00-0.70 K/uL Basophils # (Auto) 0.02 0.00-0.20 K/uL Absolute Immature Granulocyte (auto 0.13 0-1 K/uL Chemistry Labs: Test 08/18/25 16:29 08/18/25 04:05 08/17/25 11:51 Range/Units Whole Blood Glucose 311 H 70-110 MG/DL Sodium Level 136 136-145 mmol/L Potassium Level 4.0 3.5-5.1 mmol/L Chloride Level 104 101-111 mmol/L Carbon Dioxide Level 26 21-32 mmol/L Blood Urea Nitrogen 14 7-18 mg/dL Creatinine 0.4 L 0.5-1.0 mg/dL Glomerular Filtration Rate Calc 115 >90 mL/min Random Glucose 247 H 70-105 mg/dL Total Calcium 7.8 L 8.5-10.1 mg/dL Total Bilirubin 0.3 0.2-1.0 mg/dL Aspartate Amino Transf (AST/SGOT) 30 10-37 U/L Alanine Aminotransferase (ALT/SGPT) 22 12-78 U/L Alkaline Phosphatase 128 50-136 U/L Total Protein 5.9 L 6.0-8.3 g/dL Albumin 1.8 L 3.5-5.0 g/dL Procalcitonin 0.10 0.05-0.5 ng/mL Iron Level 32 L 50-170 mcg/dL Total Iron Binding Capacity 144 L 250-450 mcg/dL Percent Iron Saturation 22.2 22-44 % Troponin I High Sensitivity 4240 *H 4-50 ng/L Coagulation Labs: Test 08/17/25 22:12 Range/Units Activated Partial Thromboplast Time 62.1 H 26.3-35.5 SEC DIAGNOSTICS / RADIOLOGY RESULTS: [address] [address] IMAGING REPORT Signed PATIENT: LUL ARTHUR MR#: [id number] : 1965 SEX: F AGE: 60 LOCATION: H ORDER 5 STATUS: ADM IN REPORT#: [id number] SERVICE 4 REASON: Right shoulder pain ORDERING PHYSICIAN: CHIRAG GATES MD PROCEDURE: AJ 1V RT - SHOULDER LTD 1VW RT EXAM: CR right Shoulder, 1 View. CLINICAL HISTORY: Right shoulder pain COMPARISON: None provided. FINDINGS: Only a single view was provided. BONES: No acute fracture or aggressive appearing osseous lesion. JOINTS: No dislocation. The joint spaces are normal. SOFT TISSUES: The soft tissues are unremarkable. Right PICC line with tip projecting over the right lung apex, right brachiocephalic vein area. IMPRESSION: No acute abnormality evident on examination of the right shoulder. No acute fracture or dislocation. A subtle bone abnormality or fracture may not be readily apparent on x-rays, thus clinical correlation and further imaging including follow up CT, MRI, or follow up x-rays are advised as needed. /[place] DICTATED BY: MIAN ALONZO Jr., MD DATE: 08/18/251230 ELECTRONICALLY SIGNED BY: MIAN ALONZO Jr., MD DATE: 08/18/251230 [place] [id number] IMAGING REPORT Signed PATIENT: LUL ARTHUR MR#: [id number] : 1965 SEX: F AGE: 60 LOCATION: 2C ORDER 2300 STATUS: ADM IN REPORT#: [id number] SERVICE 0600 REASON: hypoxic resp failure ORDERING PHYSICIAN: OLIVER KONG PROCEDURE: CXR1VW - CHEST 1VW EXAM: CR Chest, single view. CLINICAL HISTORY: Hypoxic respiratory failure. COMPARISON: Prior chest radiograph dated August 17, 2025. FINDINGS: A probable left ventricular assistive device is identified with a tip in the left ventricle and in the descending thoracic aorta. The lungs show no infiltrate or other acute findings. Atherosclerotic calcification of the aortic arch. No pleural effusion or pneumothorax. The cardiomediastinal silhouette is within normal limits. No acute osseous abnormality. IMPRESSION: No acute cardiopulmonary pathology is evident. A probable left ventricular assistive device is identified with a tip in the left ventricle and in the descending thoracic aorta. Compared to the prior study, there is no significant interval change. /[place] DICTATED BY: MIAN ALONZO Jr., MD DATE: 08/18/25831 ELECTRONICALLY SIGNED BY: MIAN ALONZO Jr., MD DATE: 08/18/25831 PLAN NEURO: Minimize central acting medications as possible. Fall Precautions. Well lighted room through the day and minimize interruptions through the night to prevent acute delirium. PULMONARY: Supplemental 02 as needed Titrate Fio2 to keep Spo2 > or = 90% DuoNebs and CPT as needed IS hourly while awake for pulmonary hygiene CARDIOVASCULAR: Follow hemodynamics. Titrate vasopressor to keep MAP >65 or systolic blood pressure >95mmHg DIPS: Dopamine weaned off Heparin gtt LINES: Peripheral IV CVP Impella GI & NUTRITION: Continue nutritional support Aspirations precautions Prokinetic agents and laxatives as needed Clear liquid diet as tolerated KIDNEYS & ELECTROLYTES: Strict monitoring of intake and output Daily weights Avoid nephrotoxic agents Monitor electrolytes and replace as needed Goal urine output of 30mL/hr or 0.5mL/kg/hr ENDOCRINE: Maintain blood glucose between 100-180 at all times. Insulin sliding scale for blood glucose management INFECTIOUS DISEASE: Trend temperature. Astudillo-culture if febrile. Micro: [ ] Urine culture - Ecoli Blood culture - Staph cohnii urealyticum Antibiotics: [ ] Rocephin Vancomycin HEMATOLOGY & COAGULATION: Monitor H&H. Keep Hgb > 7 Transfuse 1 unit of PRBC for Hgb < 7 Transfuse 1 pack of platelets of platelets < 20, 000 Watch for any signs and symptoms of bleeding SKIN: Pressure ulcer prevention per facility protocol Rehab: PT/OT Prophylaxis: GI: PPI DVT: SCDs patient on heparin drip Code Status: Full Resuscitation Disposition: ICU ATTESTATION BY PHYSICIAN I have seen and examined the patient. I reviewed the documentation, medical decision making, and treatment plan as noted by the resident provider above. I agree with the findings and plan of care. Martha Neville MD, LAKSHMI MD Aug 18, 2025 17:37
--- NOTE | 2025-08-18 20:18 | PN ---
Endocrinology progress note DOS: 08/18/25 subjective: on dopamine and heparin drip. cardiology following. pacemaker and impella placed. Home diabetic regimen: metformin 500 mg bid Hba1c 10.7% glucose runs greater than 180 mg/dl. REVIEW OF SYSTEMS CONSTITUTIONAL: generalized fatigue, malaise NEUROLOGICAL: Denies headache, amaurosis fugax, motor weakness, sensory deficit, vertigo/spinning sensation, gait abnormalities, or tremors. ENT: No hearing loss, otalgia, otorrhea, rhinitis, rhinorrhea, hoarseness, or sore throat. CARDIOVASCULAR: chest pain, Shortness of breath improving PULMONARY: Denies any shortness of breath, cough, phlegm/sputum, hemoptysis, pleuritic chest pain. SLEEP: Denies morning headaches, daytime somnolence or napping. Denies difficulty falling asleep, staying asleep, waking from sleep. Denies knowledge of snoring. GASTROINTESTINAL: Denies any type of dysphagia to either liquids or solids. Denies vomiting, pyrosis, early satiety, abdominal pain, diarrhea, constipation, or changes in stool consistency or caliber. Denies coffee-ground emesis, hematemesis, hematochezia, or melanotic stools. GENITOURINARY: Denies frequency, urgency, nocturia, hematuria or incontinence (Storage/Irritative symptoms.) Low urinary stream, straining to void, urinary intermittency or hesitancy, splitting of the voiding stream, terminal dribbling. ENDOCRINOLOGIC: Denies polyuria, polydipsia, polyphagia or heat/cold intolerances. HEMATOLOGIC: Denies thrombophilia/previous clots, or coagulopathy/bleeding disorders. ONCOLOGIC: Denies personal history of malignancy. DERMATOLOGIC: Denies rashes or pruritus. PSYCHIATRIC: Denies any suicidal or homicidal ideation. Denies hallucinations. PAST MEDICAL HISTORY: Coronary artery disease with history of abnormal coronary CT angiography, gastritis, anemia, cocaine use disorder, obesity, PTSD, anxiety disorder, history of NSTEMI in 04/2025, history of CVA in 2008 PAST SURGICAL HISTORY: History of ventral hernia repair 2008, hx of cholecystectomy, hx of C Section PAST SOCIAL HISTORY: Denies active alcohol consumption, intermittently smokes cigarettes as well as has been using cocaine chronically FAMILY HISTORY: Reports family history of heart disease Home medications: Patient does not have list of home medications, family will be bringing list of home medications to be updated Allergies: Patient has allergic reaction to lisinopril Coded Allergies: No Known Drug Allergies (Verified Allergy, Unknown, 05/04/22) lisinopril (Verified Allergy, Unknown, 05/04/22) DIAGNOSTICS / RADIOLOGY: SERVICE 142 REASON: cp ORDERING PHYSICIAN: ZORA OCHOA MD PROCEDURE: CXR1VW - CHEST 1VW EXAM: CR Chest, 1 View. CLINICAL HISTORY: cp COMPARISON: 07/08/25 FINDINGS: LUNGS: The lungs show no infiltrate or other acute finding. PLEURAL SPACES: No pleural effusion or pneumothorax. MEDIASTINUM: The cardiomediastinal silhouette is within normal limits. BONES: No aggressive appearing osseous lesion seen. IMPRESSION: No acute cardiopulmonary pathology is evident. /[place] DICTATED BY: BELKIS KURTZ MD DATE: 08/13/251731 ELECTRONICALLY SIGNED BY: BELKIS KURTZ MD DATE: 08/13/251731 ASSESSMENT: uncontrolled DM-2 Home diabetic regimen: metformin 500 mg bid Hba1c 10.7% glucose runs greater than 180 mg/dl but improving now. Cardiogenic shock with lactic acidosis, POA cardiology following for possible CABG procedure. NSTEMI/ACS, POA Complete heart block, POA History of multivessel coronary artery disease, POA History of cocaine use disorder, POA Severe nonketotic hyperglycemia, POA History of to poorly controlled type 2 diabetes mellitus, POA Lactic acidosis, POA History of anemia, POA History of gastritis, POA History of hypertension, POA History of PTSD/anxiety, POA Obesity, POA Medical noncompliance, POA PLAN: continue Lantus 35 units daily and adjust for fasting glucose. increase Regular insulin to 16 units three times before meals and adjust for post-prandial glucose. Continue medium dose sliding scale insulin. Monitor glucose q x 6 hourly. Continue carb consistent diet. Keep glucose less than 180 mg/dl. Patient will need insulin at discharge. Vitals/Labs Vital Signs Date Time Temp Pulse Resp B/P (MAP) Pulse Ox O2 Delivery O2 Flow Rate FiO2 08/18/25 19:00 98.2 08/18/25 18:00 71 21 98 08/18/25 15:30 Nasal Cannula* 1 24 Laboratory Tests 08/18/25 04:05 08/18/25 07:40 Medications Current Medications Ondansetron HCl 4 mg ONCE ONCE IVP; Start 08/13/25 at 14:30; Stop 08/13/25 at 14:52; Status DC Sodium Chloride 500 ml @ 0 mls/hr ONCE ONCE IV Last administered on 08/13/25at 15:00; Start 08/13/25 at 14:30; Stop 08/13/25 at 14:31; Status DC Heparin Sodium (Porcine) *calculation based on ACTUAL B... AD PRN IV Last administered on 08/17/25at 04:46; Start 08/13/25 at 16:30; Stop 09/12/25 at 16:29 Heparin Sodium/ Dextrose 250 ml @ 0 mls/hr Q6H IV Last administered on 08/18/25at 05:22; Start 08/13/25 at 16:30; Stop 09/12/25 at 16:29 Norepinephrine 250 ml @ 0 mls/hr PROTOCOL IV; Start 08/13/25 at 15:30; Stop 09/12/25 at 15:29 Dopamine HCl/ Dextrose 250 ml @ As Directed STK-MED ONCE IV; Start 08/13/25 at 15:33; Stop 08/13/25 at 15:33; Status DC Aspirin 325 mg STK-MED ONCE .ROUTE; Start 08/13/25 at 15:34; Stop 08/13/25 at 15:33; Status DC Ticagrelor 180 mg ONCE ONCE PO Last administered on 08/13/25at 16:16; Start 08/13/25 at 16:00; Stop 08/13/25 at 16:01; Status DC Morphine Sulfate 1 mg ONCE ONCE IVP Last administered on 08/13/25at 16:23; Start 08/13/25 at 16:00; Stop 08/13/25 at 16:01; Status DC Ticagrelor 90 mg STK-MED ONCE .ROUTE; Start 08/13/25 at 15:50; Stop 08/13/25 at 15:50; Status DC Dopamine HCl/ Dextrose 250 ml @ 0 mls/hr PROTOCOL IV Last administered on 08/16/25at 16:41; Start 08/13/25 at 16:00; Stop 09/12/25 at 15:59 Aspirin 325 mg ONCE ONCE PO Last administered on 08/13/25at 16:15; Start 08/13/25 at 16:00; Stop 08/13/25 at 16:01; Status DC Lidocaine HCl 20 ml STK-MED ONCE .ROUTE; Start 08/13/25 at 16:12; Stop 08/13/25 at 16:12; Status DC Iohexol 35,000 mg STK-MED ONCE IV; Start 08/13/25 at 16:12; Stop 08/13/25 at 16:12; Status DC Heparin Sodium (Porcine) 10,000 unit STK-MED ONCE .ROUTE; Start 08/13/25 at 16:12; Stop 08/13/25 at 16:12; Status DC Nicardipine HCl 25 mg STK-MED ONCE IV; Start 08/13/25 at 16:12; Stop 08/13/25 at 16:12; Status DC Heparin Sodium/ Sodium Chloride 1,000 ml @ As Directed STK-MED ONCE IV; Start 08/13/25 at 16:12; Stop 08/13/25 at 16:12; Status DC Nitroglycerin 50 mg STK-MED ONCE .ROUTE; Start 08/13/25 at 16:12; Stop 08/13/25 at 16:12; Status DC Pantoprazole Sodium 40 mg Q24H IVP Last administered on 08/16/25at 16:07; Start 08/13/25 at 16:30; Stop 08/17/25 at 11:10; Status DC Insulin Human Regular INSULIN SLIDING SCAL... ACHS SQ Last administered on 08/16/25at 20:01; Start 08/13/25 at 16:30; Stop 08/16/25 at 20:46; Status DC Insulin Human Regular 5 unit ONCE ONCE IV; Start 08/13/25 at 16:30; Stop 08/13/25 at 16:31; Status DC Fentanyl Citrate 100 mcg STK-MED ONCE .ROUTE; Start 08/13/25 at 16:26; Stop 08/13/25 at 16:26; Status DC Midazolam HCl 2 mg STK-MED ONCE .ROUTE; Start 08/13/25 at 16:27; Stop 08/13/25 at 16:27; Status DC Acetaminophen 650 mg Q6H PRN PO Last administered on 08/17/25at 21:29; Start 08/13/25 at 16:30; Stop 09/12/25 at 16:29 Ondansetron HCl 4 mg Q6H PRN IVP; Start 08/13/25 at 16:30; Stop 08/14/25 at 14:08; Status DC Potassium Chloride 100 ml @ 100 mls/hr AD PRN IV Last administered on 08/16/25at 16:07; Start 08/13/25 at 16:30; Stop 09/12/25 at 16:29 Potassium Chloride 20 meq AD PRN PO; Start 08/13/25 at 16:30; Stop 09/12/25 at 16:29 Potassium Chloride 20 meq AD PRN PO Last administered on 08/15/25at 08:23; Start 08/13/25 at 16:30; Stop 09/12/25 at 16:29 Magnesium Sulfate 50 ml @ 0 mls/hr PROTOCOL IV Last administered on 08/16/25at 06:03; Start 08/13/25 at 16:30; Stop 09/12/25 at 16:29 Atorvastatin Calcium 40 mg HS PO Last administered on 08/17/25at 21:29; Start 08/13/25 at 21:00; Stop 09/12/25 at 20:59 Heparin Sodium/ Sodium Chloride 500 ml @ As Directed STK-MED ONCE IV; Start 08/13/25 at 17:14; Stop 08/13/25 at 17:14; Status DC Heparin Sodium (Porcine) 10,000 unit STK-MED ONCE .ROUTE; Start 08/13/25 at 18:03; Stop 08/13/25 at 18:03; Status DC Aspirin 81 mg DAILY PO Last administered on 08/18/25at 07:58; Start 08/14/25 at 09:00; Stop 09/13/25 at 08:59 Insulin Glargine 10 units HS SQ Last administered on 08/13/25at 20:21; Start 08/13/25 at 21:00; Stop 08/14/25 at 06:16; Status DC Dextrose 50 ml AD PRN IV; Start 08/13/25 at 20:00; Stop 09/12/25 at 19:59 Glucagon 1 mg AD PRN IM; Start 08/13/25 at 20:00; Stop 09/12/25 at 19:59 Sodium Bicarbonate 25 meq/Dextrose 1,000 ml @ 0 mls/hr Q0M IVP; Start 08/14/25 at 00:30; Stop 08/14/25 at 00:15; Status DC Sodium Bicarbonate 25 meq/Dextrose 1,000 ml @ 0 mls/hr Q0M IV Last administered on 08/14/25at 00:21; Start 08/14/25 at 00:30; Stop 09/13/25 at 00:29 Glycerin 1 supp ONCE ONCE RC Last administered on 08/14/25at 05:56; Start 08/14/25 at 05:00; Stop 08/14/25 at 05:06; Status DC Insulin Glargine 20 units DAILY SQ Last administered on 08/14/25at 08:01; Start 08/14/25 at 09:00; Stop 08/15/25 at 07:24; Status DC Ticagrelor 90 mg BID PO Last administered on 08/14/25at 20:09; Start 08/14/25 at 09:00; Stop 08/14/25 at 21:19; Status DC Morphine Sulfate 2 mg Q6H PRN IVP Last administered on 08/18/25at 16:34; Start 08/14/25 at 09:30; Stop 08/21/25 at 09:29 Polyethylene Glycol 17 gm DAILY PO Last administered on 08/18/25at 07:57; Start 08/15/25 at 09:00; Stop 09/14/25 at 08:59 Docusate Sodium 100 mg BID PRN PO; Start 08/14/25 at 11:00; Stop 09/13/25 at 10:59 Ceftriaxone Sodium 2 gm Q24H IVPB Last administered on 08/18/25at 11:33; Start 08/14/25 at 11:30; Stop 08/24/25 at 11:29 Insulin Human Regular 5 unit TIDAC SQ Last administered on 08/15/25at 07:03; Start 08/14/25 at 17:00; Stop 08/15/25 at 07:24; Status DC Chlordiazepoxide HCl 25 mg Q2H PRN PO Last administered on 08/16/25at 23:38; Start 08/14/25 at 14:30; Stop 08/21/25 at 14:29 Chlordiazepoxide HCl 50 mg Q1H PRN PO; Start 08/14/25 at 14:30; Stop 08/21/25 at 14:29 Ondansetron HCl 4 mg Q4H PRN IV Last administered on 08/14/25at 14:17; Start 08/14/25 at 14:30; Stop 09/13/25 at 14:29 Promethazine HCl 25 mg Q6H PRN PO; Start 08/14/25 at 14:30; Stop 09/13/25 at 14:29 Acetaminophen 500 mg Q6H PRN PO; Start 08/14/25 at 14:30; Stop 09/13/25 at 14:29 Thiamine HCl 300 mg DAILY IV Last administered on 08/17/25at 07:46; Start 08/15/25 at 09:00; Stop 08/17/25 at 09:01; Status DC Folic Acid 1 mg DAILY PO Last administered on 08/17/25at 07:46; Start 08/15/25 at 09:00; Stop 08/17/25 at 09:01; Status DC Multivitamins Therapeutic 1 tab DAILY PO Last administered on 08/18/25at 07:57; Start 08/15/25 at 09:00; Stop 09/14/25 at 08:59 Pharmacy Profile Note 1 each PROTOCOL PRN MISC; Start 08/14/25 at 14:30; Stop 08/14/25 at 14:08; Status DC Insulin Glargine 30 units DAILY SQ Last administered on 08/15/25at 08:28; Start 08/15/25 at 09:00; Stop 08/16/25 at 07:19; Status DC Insulin Human Regular 8 unit TIDAC SQ Last administered on 08/15/25at 16:02; Start 08/15/25 at 07:30; Stop 08/15/25 at 22:46; Status DC Diphenhydramine HCl 25 mg ONCE ONCE IM; Start 08/15/25 at 21:00; Stop 08/15/25 at 22:52; Status DC Insulin Human Regular 10 unit TIDAC SQ Last administered on 08/17/25at 16:09; Start 08/16/25 at 07:30; Stop 08/17/25 at 21:12; Status DC Diphenhydramine HCl 25 mg ONCE PRN IV; Start 08/15/25 at 23:00; Stop 08/17/25 at 22:59; Status DC Insulin Glargine 35 units DAILY SQ Last administered on 08/18/25at 07:59; Start 08/16/25 at 09:00; Stop 09/15/25 at 08:59 Bisacodyl 10 mg DAILY RC Last administered on 08/18/25at 07:58; Start 08/17/25 at 09:00; Stop 08/20/25 at 08:59 Insulin Human Lispro INSULIN SLIDING SCAL... ACHS SQ; Start 08/16/25 at 21:00; Stop 08/17/25 at 09:31; Status DC Insulin Glargine 5 units BID@0730,2100 SQ Last administered on 08/16/25at 21:21; Start 08/16/25 at 21:00; Stop 08/17/25 at 09:31; Status DC Pantoprazole Sodium 40 mg Q12H IVP Last administered on 08/18/25at 15:19; Start 08/17/25 at 16:30; Stop 09/12/25 at 16:29 Insulin Human Regular INSULIN SLIDING SCAL... ACHS SQ Last administered on 08/18/25at 16:36; Start 08/17/25 at 16:30; Stop 09/16/25 at 16:29 Insulin Human Regular 12 unit TIDAC SQ Last administered on 08/18/25at 16:39; Start 08/18/25 at 07:30; Stop 09/17/25 at 07:29 Vancomycin HCl 1 each AD IV; Start 08/17/25 at 22:00; Stop 08/31/25 at 21:59 Vancomycin HCl 250 ml @ 83.333 mls/ hr ONCE ONCE IV Last administered on 08/17/25at 23:05; Start 08/17/25 at 22:30; Stop 08/18/25 at 01:29; Status DC Vancomycin HCl 250 ml @ 125 mls/hr Q12H IV Last administered on 08/18/25at 07:57; Start 08/18/25 at 09:00; Stop 08/28/25 at 08:59 Albumin Human 50 ml @ 0 mls/hr BID IV Last administered on 08/18/25at 10:07; Start 08/18/25 at 09:00; Stop 08/23/25 at 08:59 Lidocaine 1 each DAILY TP; Start 08/19/25 at 09:00; Stop 09/18/25 at 08:59 Lidocaine 1 each ONCE ONCE TP Last administered on 08/18/25at 13:52; Start 08/18/25 at 14:00; Stop 08/18/25 at 14:01; Status DC Diphenhydramine HCl 25 mg ONCE ONCE PO Last administered on 08/18/25at 15:19; Start 08/18/25 at 15:30; Stop 08/18/25 at 15:31; Status DC CAROLYN BYRNE MD Aug 18, 2025 20:18
[2025-08-19] VITALS (35 sets, daily range): BP systolic 97–135; BP diastolic 40–90; PULSE 59–87; RESP 14–24; TEMP 98.5–99.9; O2SAT 97–99
--- NOTE | 2025-08-19 02:56 | PN ---
SUBJECTIVE: The patient is status post ST elevation NC and placement of Impella catheter. She is 5 days out from her heart attack. She is doing well and offers no complaints. OBJECTIVE: VITAL SIGNS: Reveal a temperature 98.2, blood pressure is 113/72, respirations 17, oxygen saturations are 97%, pulse is 97. HEENT: Normocephalic, atraumatic. Extraocular movements intact. She is on nasal cannula oxygen. She is also on a dopamine drip at 1 mcg/min. HEART: S1, S2 and nearly tachycardic. LUNGS: Unlabored at rest. ABDOMEN: Reveals positive bowel sounds. EXTREMITIES: She has a CP Impella catheter and a temporary pacing lead in her right groin region. LABORATORY DATA: Her white cell count is 9100, hemoglobin 7.5. BUN is 17, creatinine is 0.4. Troponins are down to 4240. ASSESSMENT AND PLAN: * Status post ST-elevation myocardial infarction. We will for a bypass grafting. Continue aspirin, Lipitor, and heparin drip. * Acute respiratory insufficiency. Wean nasal cannula oxygen as long as oxygen saturation is stable above 90%. * Deep venous thrombosis prophylaxis. The patient should be covered with the heparin drip. I spent 30 minutes with the patient in the ICU. TID: [id number] RECEIPT: [id number]
[2025-08-19 04:12] LABS: ABG BASE EXCESS -0.4 mmol/L (-2.0-3.0); ABG HCO3 22.9 mmol/L (21.0-28.0); ABG OXYGEN SATURATION 96.0 % (94.0-98.0); ABG PCO2 31 mmHg (32-45); ABG PH 7.484 (7.350-7.450); CARBON MONOXIDE 1.0 % (0.5-1.5); PO2, ARTERIAL BG 100.1 mmHg (83.0-108.0); TEMPERATURE, CELSIUS BG 37.0 CELSIUS (35.5-37.0); VENT MODE, BG 1LNC (ROOM AIR)
[2025-08-19 04:54] LABS: NUCLEATED RED BLOOD CELLS 0.7 % (0.0-0.19); PLATELET COUNT (AUTO) 117.0 K/uL (130-400); RED BLOOD CELL COUNT(AUTO) 2.12 MIL/uL (4.00-5.50); RED CELL DISTRIBUTION WIDTH 12.7 % (11.0-15.5); WHITE BLOOD COUNT (AUTO) 8.4 K/uL (4.8-10.8)
[2025-08-19 05:20] LABS: ASPARTATE AMINOTRANSFERASE 36.0 U/L (10-37); CREATININE 0.5 mg/dL (0.5-1.0); GLOMERULAR FILTR. RATE CALC 109.0 mL/min (>90); GLUCOSE,RANDOM 242.0 mg/dL (70-105); SODIUM SERUM 139.0 mmol/L (136-145); TOTAL PROTEIN, SERUM 6.3 g/dL (6.0-8.3); UREA NITROGEN, BLOOD 15.0 mg/dL (7-18)
[2025-08-19] MEDS: LIDOCAINE 4% ADH..PATCH TP SCH (07:51)
--- NOTE | 2025-08-19 07:58 | HMCIMG ---
EXAM: CR Chest, single view. CLINICAL HISTORY: Impala device. COMPARISON: Prior chest radiograph dated August 18, 2025. FINDINGS: The Impala device is identified with a tip in the left ventricle. Borderline cardiomegaly with mild bilateral pulmonary congestion. Subtle blunting of the left costophrenic angle probably minimal left pleural effusion. No evidence of pneumothorax. The cardiomediastinal silhouette is within normal limits. No acute osseous abnormality. IMPRESSION: The Impala device is identified with a tip in the left ventricle. Borderline cardiomegaly with mild bilateral pulmonary congestion. Subtle blunting of the left costophrenic angle probably minimal left pleural effusion. Compared to the prior study, there is no significant interval change. /[place]
--- NOTE | 2025-08-19 10:10 | PN ---
[facility] CARDIOLOGY PROGRESS NOTE Date Patient Seen: Aug 19, 2025 Time of Visit: 10:06 Problem List: NSTEMI ICMP CARDIOGENIC SHOCK COCAINE USE Interval History: Seen in ICU Impella CP to R TRAINING PROJECT MANAGER at P-7 On heparin gtt Denies complaints No arrhythmias, no chest pain. Physical Examination: GENERAL: [well appearing, calm, no distress HEAD: [Normal with no signs of head trauma.] EYES: [PERRLA, EOMI, conjunctiva and sclera normal.] ENT: [Hearing grossly intact.] LUNGS: [Clear breath sounds bilaterally. no tachypnea. no distress.. No wheezes, or rhonchi.] HEART: [NSR. Normal S1 and S2 without murmurs, gallop or rub.] VASC: [Peripheral pulses +2 bilaterally. distal extremities are warm] ABD: [soft, nontender.] EXT: [No clubbing, cyanosis or edema. Right TRAINING PROJECT MANAGER Impella CP and TVPM insertion site no ecchymoses or bleeding. SKIN: [No rashes or lesions noted. warm, dry NEURO: [Awake, alert, and oriented x3. No focal sensory or strength deficits noted.] Laboratory: [ ] Hematology Labs: Test 08/19/25 04:40 08/18/25 04:05 Range/Units White Blood Count 8.4 4.8-10.8 K/uL Red Blood Count 2.12 L 4.00-5.50 MIL/uL Hemoglobin 6.5 *L 12.0-16.0 g/dL Hematocrit 19.1 *L 36-48 % Mean Corpuscular Volume 90.1 79-99 fL Mean Corpuscular Hemoglobin 30.7 27.0-33.0 pg Mean Corpuscular Hemoglobin Concent 34.0 32.0-36.0 g/dL Red Cell Distribution Width 12.7 11.0-15.5 % Platelet Count 117 L 130-400 K/uL Mean Platelet Volume 11.2 H 7.5-10.5 fL Nucleated Red Blood Cells 0.7 H 0.0-0.19 % Immature Granulocyte % (Auto) 1.5 H 0-1 % Neutrophils (%) (Auto) 55.3 40.0-77.0 % Lymphocytes (%) (Auto) 31.9 21.0-51.0 % Monocytes (%) (Auto) 7.2 3.0-13.0 % Eosinophils (%) (Auto) 3.9 0.0-8.0 % Basophils (%) (Auto) 0.2 0.0-5.0 % Neutrophils # (Auto) 4.7 1.8-7.7 K/uL Lymphocytes # (Auto) 2.7 1.0-4.8 K/uL Monocytes # (Auto) 0.6 0.1-1.0 K/uL Eosinophils # (Auto) 0.33 0.00-0.70 K/uL Basophils # (Auto) 0.02 0.00-0.20 K/uL Absolute Immature Granulocyte (auto 0.13 0-1 K/uL Chemistry Labs: Test 08/19/25 09:30 08/19/25 04:40 08/18/25 04:05 08/17/25 11:51 Range/Units Whole Blood Glucose 284 H 70-110 MG/DL Sodium Level 139 136-145 mmol/L Potassium Level 4.0 3.5-5.1 mmol/L Chloride Level 105 101-111 mmol/L Carbon Dioxide Level 28 21-32 mmol/L Blood Urea Nitrogen 15 7-18 mg/dL Creatinine 0.5 0.5-1.0 mg/dL Glomerular Filtration Rate Calc 109 >90 mL/min Random Glucose 242 H 70-105 mg/dL Total Calcium 8.1 L 8.5-10.1 mg/dL Magnesium Level 1.60 L 1.80-2.40 mg/dL Total Bilirubin 0.3 0.2-1.0 mg/dL Aspartate Amino Transf (AST/SGOT) 36 10-37 U/L Alanine Aminotransferase (ALT/SGPT) 27 12-78 U/L Alkaline Phosphatase 154 H 50-136 U/L Total Protein 6.3 6.0-8.3 g/dL Albumin 2.2 L 3.5-5.0 g/dL Procalcitonin 0.10 0.05-0.5 ng/mL Iron Level 32 L 50-170 mcg/dL Total Iron Binding Capacity 144 L 250-450 mcg/dL Percent Iron Saturation 22.2 22-44 % Troponin I High Sensitivity 4240 *H 4-50 ng/L Coagulation Labs: Test 08/18/25 22:07 Range/Units Activated Partial Thromboplast Time 63.8 H 26.3-35.5 SEC Impression and Plan: 1. Non ST-elevation [place] complicated by cardiogenic shock and complete heart block status post Impella placement in the R TRAINING PROJECT MANAGER and TVPM to R CFV 2. CAD with total occlusion of the right coronary artery unable to cross with a wire , of note the patient had a 30-40% RCA stenosis in April of this year raising possibility of spasm and or plaque rupture. LV ejection fraction of 50% with hypokinesis of the infero base by echo this admission. Previously known severe disease of pLAD and pLCx. 3. Cocaine abuse , tox screen positive for cocaine and benzodiazepines 4. Diabetes mellitus type 2 uncontrolled 5. Tobacco dependence 6. Remote CVA 2008 7. Noncompliance history, the patient has been seen in the hospital but has not followed up in the office. 8. Dyslipidemia 9. Urinary tract infection 10. Bacteremia one of two sets possibly contamination 11. Thrombocytopenia Continue with Impella support, wean to P-6 Continue the heparin gtt unless overt bleeding TVPM continue at backup rate of 40 bpm RN to perform Impella dressing site change with chlorhexidine Continue ASA, statin. Awaiting timing of CABG CHANDRIKA ELAINE DO Aug 19, 2025 10:10
--- NOTE | 2025-08-19 10:15 | NUR ---
PT CARE Transfusion initiated - pt educated on potential s/s of reaction. Pt has call light within reach.
[2025-08-19] MEDS: CALCIUM CARB 500MG CHEW TAB PO PRN (12:18)
--- NOTE | 2025-08-19 13:28 | PN ---
[facility] PROGRESS NOTE Date of Service: Aug 19, 2025 Time of Service: 13:27 SUBJECTIVE: This is a 60-year-old female with underlying history of obesity, coronary artery disease, poorly controlled type 2 diabetes mellitus, history of anemia, history of cocaine use, tobacco use disorder, history of CVA in 2008, who presented to the ER for further evaluation of severe substernal chest pain and shortness of breadth. Patient reports having history of cocaine use with last use of cocaine yesterday. She reports having severe substernal chest pain that started today in it has been associated with dizziness, and generalized malaise. Pain is 10/1 0 in severity. Patient denies any syncope or fall. She has been having lightheadedness with ambulation. She has not been able to follow up with Cardiology as outpatient. She has a previous history of abnormal CT coronary angiography when she was hospitalized in 04/2025 and she was treated medically. With regards to type 2 diabetes mellitus, she reports being on metformin as ou tpatient. On presentation to the hospital, patient was noted to be hypotensive with blood pressure of 80/60 with heart rate of 40 with EKG showing complete heart block. Labs [place] [address], hemoglobin 12.4, platelet count of 810317. BMP showed sodium of 133, potassium 4.8, chloride of 99, BUN of 21, creatinine 1.0, blood glucose of 403, [place] [address]. Chest x-ray showed no acute infiltrates. Patient will be admitted for further management of cardiogenic shock, NSTEMI, complete heart block with history of poorly controlled type 2 diabetes mellitus. Patient will be emergently taken to the labeling specialist for cardiac catheterization/ PCI and tentative plan for MCS support. Patient will be admitted to intensive care unit and she remains critically ill. 08/14 patient remains critically ill requiring Impella and dopamine support. UDS has demonstrated benzos and cocaine 08/15 patient remains on Impella 08/16 patient appears to be resting comfortably in bed. She remains on Impella and dopamine support. She reports she would like to be bathed and wants her hair combed significant and she is feeling better 08/17 patient is on GI soft diet tolerating well. She remains on Impella support 08/18 patient is resting comfortably in bed. She remains on Impella. Tolerating oral intake. 08/19 hemoglobin dropped to 6.5 from 7.0-7.5 yesterday. I agree with transfusing 1 unit PRBC. Patient remains on Impella. Patient is resting comfortably in bed. REVIEW OF SYSTEMS CONSTITUTIONAL: generalized fatigue, malaise NEUROLOGICAL: Denies headache, amaurosis fugax, motor weakness, sensory deficit, vertigo/spinning sensation, gait abnormalities, or tremors. ENT: No hearing loss, otalgia, otorrhea, rhinitis, rhinorrhea, hoarseness, or sore throat. CARDIOVASCULAR: chest pain, Shortness of breath, dizziness, lightheadedness PULMONARY: Denies any shortness of breath, cough, phlegm/sputum, hemoptysis, pleuritic chest pain. SLEEP: Denies morning headaches, daytime somnolence or napping. Denies difficulty falling asleep, staying asleep, waking from sleep. Denies knowledge of snoring. GASTROINTESTINAL: Reports having nausea, Denies any type of dysphagia to either liquids or solids. Denies vomiting, pyrosis, early satiety, abdominal pain, diarrhea, constipation, or changes in stool consistency or caliber. Denies coffee-ground emesis, hematemesis, hematochezia, or melanotic stools. GENITOURINARY: Denies frequency, urgency, nocturia, hematuria or incontinence (Storage/Irritative symptoms.) Low urinary stream, straining to void, urinary intermittency or hesitancy, splitting of the voiding stream, terminal dribbling. ENDOCRINOLOGIC: Denies polyuria, polydipsia, polyphagia or heat/cold intolerances. HEMATOLOGIC: Denies thrombophilia/previous clots, or coagulopathy/bleeding disorders. ONCOLOGIC: Denies personal history of malignancy. DERMATOLOGIC: Denies rashes or pruritus. PSYCHIATRIC: Denies any suicidal or homicidal ideation. Denies hallucinations. PHYSICAL EXAM GENERAL APPEARANCE: The patient is awake, appears ill and in mild distress NEUROLOGICAL: Cranial nerves II-XII grossly intact. Motor is 5/5 in bilateral upper and lower extremities proximal to distal. No sensory deficits. HEENT: Face is symmetric. Pupils are equal and reactive. Extraocular movements are intact. NECK: Supple. No JVD. No thyromegaly. No submental, submandibular, pre-/postauricular, occipital or supraclavicular lymphadenopathy. CHEST: Normal chest expansion. No Telemetry. LUNGS: minimal crackles noted of the bilateral lung bases CARDIOVASCULAR: Regular. S1 and S2 normal. No appreciable rubs, murmurs or gallops. ABDOMEN: Soft, nontender, and nondistended. There is no rebound, voluntary guarding, or rigidity. : Deferred. No Coombs. EXTREMITIES: trace edema noted of the bilateral lower extremities SKIN: No skin breakdown. Vital Signs (last 8hr) Date Time Temp Pulse Resp B/P (MAP) Pulse Ox O2 Delivery O2 Flow Rate FiO2 08/19/25 11:21 99.5 Room Air 08/19/25 11:20 98 Room Air* 0 21 08/19/25 11:00 69 17 128/82 99 Nasal Cannula 1.0 08/19/25 10:22 61 20 99/51 96 08/19/25 10:00 68 17 107/73 98 Nasal Cannula 1.0 08/19/25 09:00 71 16 105/52 99 Nasal Cannula 1.0 08/19/25 08:00 69 17 102/57 98 Nasal Cannula 1.0 08/19/25 07:30 98.4 Nasal Cannula 1.0 08/19/25 07:30 98 Nasal Cannula* 1 24 08/19/25 07:13 67 18 N/Cannula Low lpm 1.0 24 08/19/25 07:00 69 16 115/52 99 Nasal Cannula 1.0 08/19/25 06:00 87 20 129/90 (103) 98 LABS: Laboratory: Test 08/19/25 11:31 08/19/25 04:40 08/19/25 04:10 08/18/25 22:07 Range/Units Whole Blood Glucose 241 H 70-110 MG/DL White Blood Count 8.4 4.8-10.8 K/uL Red Blood Count 2.12 L 4.00-5.50 MIL/uL Hemoglobin 6.5 *L 12.0-16.0 g/dL Hematocrit 19.1 *L 36-48 % Mean Corpuscular Volume 90.1 79-99 fL Mean Corpuscular Hemoglobin 30.7 27.0-33.0 pg Mean Corpuscular Hemoglobin Concent 34.0 32.0-36.0 g/dL Red Cell Distribution Width 12.7 11.0-15.5 % Platelet Count 117 L 130-400 K/uL Mean Platelet Volume 11.2 H 7.5-10.5 fL Nucleated Red Blood Cells 0.7 H 0.0-0.19 % Sodium Level 139 136-145 mmol/L Potassium Level 4.0 3.5-5.1 mmol/L Chloride Level 105 101-111 mmol/L Carbon Dioxide Level 28 21-32 mmol/L Blood Urea Nitrogen 15 7-18 mg/dL Creatinine 0.5 0.5-1.0 mg/dL Glomerular Filtration Rate Calc 109 >90 mL/min Random Glucose 242 H 70-105 mg/dL Total Calcium 8.1 L 8.5-10.1 mg/dL Magnesium Level 1.60 L 1.80-2.40 mg/dL Total Bilirubin 0.3 0.2-1.0 mg/dL Aspartate Amino Transf (AST/SGOT) 36 10-37 U/L Alanine Aminotransferase (ALT/SGPT) 27 12-78 U/L Alkaline Phosphatase 154 H 50-136 U/L Total Protein 6.3 6.0-8.3 g/dL Albumin 2.2 L 3.5-5.0 g/dL Blood Gas Specimen Type Arterial Arterial Blood pH 7.484 H 7.350-7.450 Arterial Blood Partial Pressure CO2 31 L 32-45 mmHg Arterial Blood Partial Pressure O2 100.1 83.0-108.0 mmHg Arterial Blood HCO3 22.9 21.0-28.0 mmol/L Arterial Blood Oxygen Saturation 96.0 94.0-98.0 % Arterial Blood Base Excess -0.4 -2.0-3.0 mmol/L Hemoglobin (Blood Gas) 6.8 *L 12.0-16.0 g/dL Sodium (Blood Gas) 136 136-145 MMOL/L Bedside Potassium (Blood Gas) 4.1 3.4-4.5 MMOL/L Bedside Chloride (Blood Gas) 105 98-107 MMOL/L Bedside Glucose (Blood Gas) 225 H 65-95 MG/DL Bedside Ionized Calcium (Blood Gas) 1.13 L 1.15-1.33 MMOL/L Bedside Lactic Acid (Blood Gas) 0.82 H 0.36-0.75 MMOL/L Blood Gas Temperature 37.0 35.5-37.0 CELSIUS Blood Gas Flow-by 1.00 0.00-15.00 L/min Blood Gas Vent Mode 1LNC ROOM AIR FiO2 24.0 % Blood Gas Specimen Comment EDILBERTO RN, RB Activated Partial Thromboplast Time 63.8 H 26.3-35.5 SEC Test 08/18/25 04:05 Range/Units Immature Granulocyte % (Auto) 1.5 H 0-1 % Neutrophils (%) (Auto) 55.3 40.0-77.0 % Lymphocytes (%) (Auto) 31.9 21.0-51.0 % Monocytes (%) (Auto) 7.2 3.0-13.0 % Eosinophils (%) (Auto) 3.9 0.0-8.0 % Basophils (%) (Auto) 0.2 0.0-5.0 % Neutrophils # (Auto) 4.7 1.8-7.7 K/uL Lymphocytes # (Auto) 2.7 1.0-4.8 K/uL Monocytes # (Auto) 0.6 0.1-1.0 K/uL Eosinophils # (Auto) 0.33 0.00-0.70 K/uL Basophils # (Auto) 0.02 0.00-0.20 K/uL Absolute Immature Granulocyte (auto 0.13 0-1 K/uL Procalcitonin 0.10 0.05-0.5 ng/mL Current Medications Medications (Trade) Dose Ordered Sig/Elmer Route PRN Reason Start Time Stop Time Status Last Admin Dose Admin Acetaminophen (TYLenol 325MG TAB) 650 mg Q6H PRN PO MILD PAIN (1-3) 08/13/25 16:30 09/12/25 16:29 08/18/25 20:54 650 MG Acetaminophen (TYLenol 500MG TAB) 500 mg Q6H PRN PO TEMP < 101.1 AND/OR HEADACHE 08/14/25 14:30 09/13/25 14:29 Albumin Human 50 ml @ 0 mls/hr BID IV 08/18/25 09:00 08/23/25 08:59 08/19/25 09:39 100 MLS/HR Aspirin (Aspirin 81mg Chew Tab) 81 mg DAILY PO 08/14/25 09:00 09/13/25 08:59 08/19/25 09:39 81 MG Atorvastatin Calcium (LIPItor 40MG) 40 mg HS PO 08/13/25 21:00 09/12/25 20:59 08/18/25 20:44 40 MG Bisacodyl (DulcoLAX) 10 mg DAILY RC 08/17/25 09:00 08/20/25 08:59 08/18/25 07:58 10 MG Calcium Carbonate (Tums 500 Mg Chew Tab) 500 tab QID PRN PO HEARTBURN 08/19/25 12:00 09/18/25 11:59 08/19/25 12:18 1 TAB Ceftriaxone Sodium (Rocephin 2gm Inj) 2 gm Q24H IVPB 08/14/25 11:30 08/24/25 11:29 08/19/25 11:47 2 GM Chlordiazepoxide HCl (LIBrium 25 MG CAP) 25 mg Q2H PRN PO ALCOHOL WITHDRAWAL PROTOCOL 08/14/25 14:30 08/21/25 14:29 08/16/25 23:38 25 MG Chlordiazepoxide HCl (LIBrium 25 MG CAP) 50 mg Q1H PRN PO ALCOHOL WITHDRAWAL PROTOCOL 08/14/25 14:30 08/21/25 14:29 Dextrose (D50w) 50 ml AD PRN IV HYPOGLYCEMIA PROTOCOL 08/13/25 20:00 09/12/25 19:59 Diphenhydramine HCl (BENAdryl INJ) 25 mg ONCE PRN IV ITCHING 08/15/25 23:00 08/17/25 22:59 DC Docusate Sodium (COLace 100MG CAP) 100 mg BID PRN PO CONSTIPATION 08/14/25 11:00 09/13/25 10:59 Dopamine HCl/ Dextrose 250 ml @ 0 mls/hr PROTOCOL IV 08/13/25 16:00 09/12/25 15:59 08/16/25 16:41 3 MLS/HR Folic Acid (FOLic ACID 1 MG TABLET) 1 mg DAILY PO 08/15/25 09:00 08/17/25 09:01 DC 08/17/25 07:46 1 MG Glucagon (Glucagon 1mg Kit) 1 mg AD PRN IM HYPOGLYCEMIA PROTOCOL 08/13/25 20:00 09/12/25 19:59 Heparin Sodium (Porcine) (HEParin 5,000 UNIT VIAL) *calculation based on ACTUAL B... AD PRN IV HEPARIN PROTOCOL 08/13/25 16:30 09/12/25 16:29 08/17/25 04:46 3,175 UNIT Heparin Sodium/ Dextrose 250 ml @ 0 mls/hr Q6H IV 08/13/25 16:30 11/8/25 16:29 08/19/25 03:35 11.78 MLS/HR Insulin Glargine (LANtus 100 UNITS/ML 10 ML VIAL) 5 units BID@0730,2100 SQ 08/16/25 21:00 08/17/25 09:31 DC 08/16/25 21:21 5 UNITS Insulin Glargine (LANtus 100 UNITS/ML 10 ML VIAL) 10 units HS SQ 08/13/25 21:00 08/14/25 06:16 DC 08/13/25 20:21 10 UNITS Insulin Glargine (LANtus 100 UNITS/ML 10 ML VIAL) 20 units DAILY SQ 08/14/25 09:00 08/15/25 07:24 DC 08/14/25 08:01 20 UNITS Insulin Glargine (LANtus 100 UNITS/ML 10 ML VIAL) 30 units DAILY SQ 08/15/25 09:00 08/16/25 07:19 DC 08/15/25 08:28 30 UNITS Insulin Glargine (LANtus 100 UNITS/ML 10 ML VIAL) 35 units DAILY SQ 08/16/25 09:00 08/19/25 07:35 DC 08/18/25 07:59 35 UNITS Insulin Glargine (LANtus 100 UNITS/ML 10 ML VIAL) 42 units DAILY 08/19/25 09:00 09/18/25 08:59 08/19/25 09:40 42 UNITS Insulin Human Lispro (HumaLOG LISpro 100 UNIT/ML 3ML) INSULIN SLIDING SCAL... ACHS SQ 08/16/25 21:00 08/17/25 09:31 DC Insulin Human Regular (humuLIN R 100 UNIT/ML 3ML) 5 unit TIDAC SQ 08/14/25 17:00 08/15/25 07:24 DC 08/15/25 07:03 5 UNIT Insulin Human Regular (humuLIN R 100 UNIT/ML 3ML) 8 unit TIDAC SQ 08/15/25 07:30 08/15/25 22:46 DC 08/15/25 16:02 8 UNIT Insulin Human Regular (humuLIN R 100 UNIT/ML 3ML) 10 unit TIDAC SQ 08/16/25 07:30 08/17/25 21:12 DC 08/17/25 16:09 10 UNIT Insulin Human Regular (humuLIN R 100 UNIT/ML 3ML) 12 unit TIDAC SQ 08/18/25 07:30 08/18/25 20:19 DC 08/18/25 16:39 12 UNIT Insulin Human Regular (humuLIN R 100 UNIT/ML 3ML) 16 unit TIDAC SQ 08/19/25 07:30 09/18/25 07:29 08/19/25 11:49 16 UNIT Insulin Human Regular (humuLIN R 100 UNIT/ML 3ML) INSULIN SLIDING SCAL... ACHS SQ 08/17/25 16:30 09/16/25 16:29 08/19/25 11:48 6 UNIT Insulin Human Regular (humuLIN R 100 UNIT/ML 3ML) INSULIN SLIDING SCAL... ACHS SQ 08/13/25 16:30 08/16/25 20:46 DC 08/16/25 20:01 4 UNIT Lidocaine (Lidocaine Patch 4%) 1 each DAILY TP 08/19/25 09:00 09/18/25 08:59 08/19/25 07:51 1 EACH Magnesium Sulfate 50 ml @ 0 mls/hr PROTOCOL IV 08/13/25 16:30 09/12/25 16:29 08/19/25 06:43 25 MLS/HR Morphine Sulfate (morPHINE 4MG SYG) 2 mg Q6H PRN IVP SEVERE PAIN (7-10) 08/14/25 09:30 08/19/25 12:29 DC 08/19/25 12:22 2 MG Multivitamins Therapeutic (Multivitamin Tablet) 1 tab DAILY PO 08/15/25 09:00 09/14/25 08:59 08/19/25 09:38 1 TAB Norepinephrine 250 ml @ 0 mls/hr PROTOCOL IV 08/13/25 15:30 09/12/25 15:29 Ondansetron HCl (zoFRAN 4MG INJ) 4 mg Q4H PRN IV NAUSEA 08/14/25 14:30 09/13/25 14:29 08/14/25 14:17 4 MG Ondansetron HCl (zoFRAN 4MG INJ) 4 mg Q6H PRN IVP NAUSEA/VOMITING 08/13/25 16:30 08/14/25 14:08 DC Pantoprazole Sodium (PROTonix 40MG INJ) 40 mg Q12H IVP 08/17/25 16:30 09/12/25 16:29 08/19/25 05:32 40 MG Pantoprazole Sodium (PROTonix 40MG INJ) 40 mg Q24H IVP 08/13/25 16:30 08/17/25 11:10 DC 08/16/25 16:07 40 MG Pharmacy Profile Note (Pharmacy Communication) 1 each PROTOCOL PRN MISC ETOH Withdrawal Score changes 08/14/25 14:30 08/14/25 14:08 DC Polyethylene Glycol (MIRalax 3350 17 GM POWD.PACK) 17 gm DAILY PO 08/15/25 09:00 09/14/25 08:59 08/19/25 09:38 17 GM Potassium Chloride 100 ml @ 100 mls/hr AD PRN IV POTASSIUM PROTOCOL 08/13/25 16:30 09/12/25 16:29 08/16/25 16:07 100 MLS/HR Potassium Chloride (K-Dur/Klor-Con 20meq) 20 meq AD PRN PO POTASSIUM PROTOCOL 08/13/25 16:30 09/12/25 16:29 08/15/25 08:23 20 MEQ Potassium Chloride (KCl 10% Elixir 20meq/15ml) 20 meq AD PRN PO POTASSIUM PROTOCOL 08/13/25 16:30 09/12/25 16:29 Promethazine HCl (Phenergan) 25 mg Q6H PRN PO NAUSEA 08/14/25 14:30 09/13/25 14:29 Sodium Bicarbonate 25 meq/Dextrose 1,000 ml @ 0 mls/hr Q0M IV 08/14/25 00:30 09/13/25 00:29 08/18/25 20:46 15.5 MLS/HR Sodium Bicarbonate 25 meq/Dextrose 1,000 ml @ 0 mls/hr Q0M IVP 08/14/25 00:30 08/14/25 00:15 DC Thiamine HCl (Vitamin B-1) 300 mg DAILY IV 08/15/25 09:00 08/17/25 09:01 DC 08/17/25 07:46 300 MG Ticagrelor (BRILinta) 90 mg BID PO 08/14/25 09:00 08/14/25 21:19 DC 08/14/25 20:09 90 MG Vancomycin HCl 250 ml @ 125 mls/hr Q12H IV 08/18/25 09:00 08/28/25 08:59 08/19/25 09:39 125 MLS/HR Vancomycin HCl (Vancomycin Protocol) 1 each AD IV 08/17/25 22:00 08/31/25 21:59 DIAGNOSTICS / RADIOLOGY: [ ] ASSESSMENT: Cardiogenic shock with lactic acidosis, POA NSTEMI/ACS, POA Complete heart block, POA History of multivessel coronary artery disease, POA History of cocaine use disorder, POA Severe nonketotic hyperglycemia, POA History of to poorly controlled type 2 diabetes mellitus, POA Lactic acidosis, POA History of anemia, POA History of gastritis, POA History of hypertension, POA History of PTSD/anxiety, POA Obesity, POA Medical noncompliance, POA PLAN: Continue ceftriaxone Trend WBCs Follow-up blood cultures O2 nasal cannula as needed Follow up with Critical care, appreciate assistance Continue aspirin, atorvastatin, Brilinta Monitor blood pressure Follow up with CT surgery -tentative plans for aortocoronary bypass graft later this week Follow up with Cardiology Continue dopamine Continue Impella support Continue GI soft diet Continue GI prophylaxis with pantoprazole No need for IV fluids Trend a.m. BMP Replete electrolytes as necessary Continue heparin drip DVT prophylaxis with heparin Trend a.m. CBC Transfuse 1 unit PRBC Follow up With endocrinology Continue insulin sliding scale Continue Lantus 20 units Daily Full code Case was discussed with patient's nurse at bedside Critical care Attention time greater than 30 minutes CHRISTIAN MACHUCA IV, MD Aug 19, 2025 13:28
--- NOTE | 2025-08-19 13:35 | PN ---
[facility] PROGRESS NOTE Date Patient Seen: Aug 19, 2025 Time of Visit: 13:33 Supervising Physician: Dr Martha Neville Consulting Physician: Hospitalist Outpatient Specialists: [ ] Inpatient Consults: [ ] PROBLEM LIST: Cardiogenic shock SCAI stage D status post cardiac catheterization with multivessel disease, Impella placement Complete heart block, status post transvenous temporary pacemaker placement Acute hypoxic respiratory failure, NSTEMI, POA Bactermia + Staph Cohni urealyticum DM type 2, with hyperglycemia, HGB A1c of 10.7 Cocaine abuse Tobacco use, current smoker History of CVA INTERVAL HISTORY: Patient was seen and examined, all labs and imaging have been reviewed, patient's comfortable in bed, nasal cannula at 1 L, good O2 sats She is not reporting any pain or discomfort She continues on the heparin drip Review of chest x-ray is clear, Patient's hemoglobin is 6.5, pending 1 unit Nursing reports no acute events overnight. Afebrile Remains on Impella at P7 Plan: Plan is CABG Follow CT surgeon recs Neurovascular checks to extremities Telemetry Follow Cardiothoracic Surgical recommendations Antibiotics and cultures Critical care time 41 minutes, this time excludes any time spent on education or procedures. Patient requiring Impella support REVIEW OF SYSTEMS: 12 point ROS reviewed with patient. Pertinent positives mentioned above. Otherwise negative. PHYSICAL EXAM: GENERAL: alert, weak, awake oriented x 3 HEENT: EOMI, Sclera non icteric, moist mucosa NECK: Supple, no JVD, trachea midline LUNGS: Clear breath sounds bilaterally. No wheezes HEART: TVP Normal S1 and S2, without murmurs ABD: Abdomen soft, nontender. Bowel sounds present EXT: No clubbing cyanosis or edema NEURO: Alert and oriented to person, follows commands Vital Signs (last 8hr) Date Time Temp Pulse Resp B/P (MAP) Pulse Ox O2 Delivery O2 Flow Rate FiO2 08/19/25 11:21 99.5 Room Air 08/19/25 11:20 98 Room Air* 0 21 08/19/25 11:00 69 17 128/82 99 Nasal Cannula 1.0 08/19/25 10:22 61 20 99/51 96 08/19/25 10:00 68 17 107/73 98 Nasal Cannula 1.0 08/19/25 09:00 71 16 105/52 99 Nasal Cannula 1.0 08/19/25 08:00 69 17 102/57 98 Nasal Cannula 1.0 08/19/25 07:30 98.4 Nasal Cannula 1.0 08/19/25 07:30 98 Nasal Cannula* 1 24 08/19/25 07:13 67 18 N/Cannula Low lpm 1.0 08/19/25 07:00 69 16 115/52 99 Nasal Cannula 1.0 08/19/25 06:00 87 20 129/90 (103) 98 LABS: Hematology Labs: Test 08/19/25 04:40 08/18/25 04:05 Range/Units White Blood Count 8.4 4.8-10.8 K/uL Red Blood Count 2.12 L 4.00-5.50 MIL/uL Hemoglobin 6.5 *L 12.0-16.0 g/dL Hematocrit 19.1 *L 36-48 % Mean Corpuscular Volume 90.1 79-99 fL Mean Corpuscular Hemoglobin 30.7 27.0-33.0 pg Mean Corpuscular Hemoglobin Concent 34.0 32.0-36.0 g/dL Red Cell Distribution Width 12.7 11.0-15.5 % Platelet Count 117 L 130-400 K/uL Mean Platelet Volume 11.2 H 7.5-10.5 fL Nucleated Red Blood Cells 0.7 H 0.0-0.19 % Immature Granulocyte % (Auto) 1.5 H 0-1 % Neutrophils (%) (Auto) 55.3 40.0-77.0 % Lymphocytes (%) (Auto) 31.9 21.0-51.0 % Monocytes (%) (Auto) 7.2 3.0-13.0 % Eosinophils (%) (Auto) 3.9 0.0-8.0 % Basophils (%) (Auto) 0.2 0.0-5.0 % Neutrophils # (Auto) 4.7 1.8-7.7 K/uL Lymphocytes # (Auto) 2.7 1.0-4.8 K/uL Monocytes # (Auto) 0.6 0.1-1.0 K/uL Eosinophils # (Auto) 0.33 0.00-0.70 K/uL Basophils # (Auto) 0.02 0.00-0.20 K/uL Absolute Immature Granulocyte (auto 0.13 0-1 K/uL Chemistry Labs: Test 08/19/25 11:31 08/19/25 04:40 08/18/25 04:05 Range/Units Whole Blood Glucose 241 H 70-110 MG/DL Sodium Level 139 136-145 mmol/L Potassium Level 4.0 3.5-5.1 mmol/L Chloride Level 105 101-111 mmol/L Carbon Dioxide Level 28 21-32 mmol/L Blood Urea Nitrogen 15 7-18 mg/dL Creatinine 0.5 0.5-1.0 mg/dL Glomerular Filtration Rate Calc 109 >90 mL/min Random Glucose 242 H 70-105 mg/dL Total Calcium 8.1 L 8.5-10.1 mg/dL Magnesium Level 1.60 L 1.80-2.40 mg/dL Total Bilirubin 0.3 0.2-1.0 mg/dL Aspartate Amino Transf (AST/SGOT) 36 10-37 U/L Alanine Aminotransferase (ALT/SGPT) 27 12-78 U/L Alkaline Phosphatase 154 H 50-136 U/L Total Protein 6.3 6.0-8.3 g/dL Albumin 2.2 L 3.5-5.0 g/dL Procalcitonin 0.10 0.05-0.5 ng/mL Coagulation Labs: Test 08/18/25 22:07 Range/Units Activated Partial Thromboplast Time 63.8 H 26.3-35.5 SEC DIAGNOSTICS / RADIOLOGY RESULTS: [ ] PLAN NEURO: Minimize central acting medications as possible. Fall Precautions. Well lighted room through the day and minimize interruptions through the night to prevent acute delirium. PULMONARY: Supplemental 02 as needed Titrate Fio2 to keep Spo2 > or = 90% DuoNebs and CPT as needed IS hourly while awake for pulmonary hygiene CARDIOVASCULAR: Follow hemodynamics. Titrate vasopressor to keep MAP >65 or systolic blood pressure >95mmHg DIPS: Dopamine weaned off Heparin gtt LINES: Peripheral IV CVP Impella GI & NUTRITION: Continue nutritional support Aspirations precautions Prokinetic agents and laxatives as needed Clear liquid diet as tolerated KIDNEYS & ELECTROLYTES: Strict monitoring of intake and output Daily weights Avoid nephrotoxic agents Monitor electrolytes and replace as needed Goal urine output of 30mL/hr or 0.5mL/kg/hr ENDOCRINE: Maintain blood glucose between 100-180 at all times. Insulin sliding scale for blood glucose management INFECTIOUS DISEASE: Trend temperature. Astudillo-culture if febrile. Micro: [ ] Urine culture - Ecoli Blood culture - Staph cohnii urealyticum Antibiotics: [ ] Rocephin Vancomycin HEMATOLOGY & COAGULATION: Monitor H&H. Keep Hgb > 7 Transfuse 1 unit of PRBC for Hgb < 7 Transfuse 1 pack of platelets of platelets < 20, 000 Watch for any signs and symptoms of bleeding SKIN: Pressure ulcer prevention per facility protocol Rehab: PT/OT Prophylaxis: GI: PPI DVT: SCDs patient on heparin drip Code Status: Full Resuscitation Disposition: ICU CHIRAG HURTADO PAC Aug 19, 2025 13:35
--- NOTE | 2025-08-19 14:22 | NUR ---
STATUS Room air saturation 95% - non-labored respiratory effort but pt placed back on NC O2 1lpm for pt comfort - pt reported SOB.
--- NOTE | 2025-08-19 14:46 | NUR ---
[facility] ICU Skin Assessment: Patient assessed by wound healing team. Patient with no wounds or skin breakdown noted. Assessment and recommendations provided to primary nurse. Education provided. Addendum: 08/19/25 at 1549 by LINH MADISON RN RN/ Amended: Links added.
--- NOTE | 2025-08-19 15:13 | PN ---
PROGRESS NOTE Date of Service: Aug 19, 2025 Time of Service: 15:00 SUBJECTIVE: This is a 60-year-old female with underlying history of obesity, coronary artery disease, poorly controlled type 2 diabetes mellitus, history of anemia, history of cocaine use, tobacco use disorder, history of CVA in 2008, who presented to the ER with severe substernal chest pain and shortness of breath. She is admitted for further evaluation and management of NSTEMI , Cardiogenic shock. She underwent left heart catheterization and was placed on Impella on 08.13.25. We are consulted for thrombocytopenia .Her platelets were 2,09,000 at the time of admission and today its 1,17,000 .Peripheral smear negative for HIT .She is found to have Hb 6.5 and is receiving 1 unit of PRBC. We will request direct elieser test to rule out hemolysis . Patient continues to be on P6 Impella . Her vitals are stable . Patient is pending CABG for severe CAD . REVIEW OF SYSTEMS CONSTITUTIONAL: Denies fever, chills, or fatigue. HEAD/FACE: No signs of trauma. EENT: Denies eye pain, blurred vision, double vision, or light sensitivity. RESPIRATORY: Denies shortness of breath, cough, wheezing CARDIOVASCULAR: Denies chest pain, palpitation, syncope GASTROINTESTINAL/ABDOMINAL: Denies abdominal pain, constipation, diarrhea, nausea or vomiting GENITOURINARY: Denies dysuria or hematuria. MUSCULOSKELETAL: Denies joint pain, tenderness, or trauma. INTEGUMENTARY: Denies rash or itchiness NEUROLOGICAL/PSYCH: Denies anxiety, depression, heat or cold intolerance. PHYSICAL EXAM EYES: Anicteric. Pupils equal and reactive. HENT: No oral thrush seen, moist Oral mucosa NECK: Supple, no JVD or thyromegaly. LUNGS: Good air entry. No rales, no rhonchi. CARDIOVASCULAR: S1, S2 regular. No murmur heard. ABDOMEN: Soft, non tender, bowel sounds present, no organomegaly CENTRAL NERVOUS SYSTEM: Awake, alert, oriented x 3. No focal deficits. SKIN: No rashes, no swelling. LYMPHATICS: No peripheral lymphadenopathy MUSCULOSKELETAL: No joint swelling, erythema or tenderness. EXTREMITIES: No cyanosis or clubbing BACK: No deformity, no pressure ulcer. GENITOURINARY: No dysuria or hematuria Vital Signs (last 8hr) Date Time Temp Pulse Resp B/P (MAP) Pulse Ox O2 Delivery O2 Flow Rate FiO2 08/19/25 11:21 99.5 Room Air 08/19/25 11:20 98 Room Air* 0 21 08/19/25 11:00 69 17 128/82 99 Nasal Cannula 1.0 08/19/25 10:22 61 20 99/51 96 08/19/25 10:00 68 17 107/73 98 Nasal Cannula 1.0 08/19/25 09:00 71 16 105/52 99 Nasal Cannula 1.0 08/19/25 08:00 69 17 102/57 98 Nasal Cannula 1.0 08/19/25 07:30 98.4 Nasal Cannula 1.0 08/19/25 07:30 98 Nasal Cannula* 1 24 08/19/25 07:13 67 18 N/Cannula Low lpm 1.0 24 LABS: Laboratory: Test 08/19/25 11:31 08/19/25 04:40 08/19/25 04:10 08/18/25 22:07 Range/Units Whole Blood Glucose 241 H 70-110 MG/DL White Blood Count 8.4 4.8-10.8 K/uL Red Blood Count 2.12 L 4.00-5.50 MIL/uL Hemoglobin 6.5 *L 12.0-16.0 g/dL Hematocrit 19.1 *L 36-48 % Mean Corpuscular Volume 90.1 79-99 fL Mean Corpuscular Hemoglobin 30.7 27.0-33.0 pg Mean Corpuscular Hemoglobin Concent 34.0 32.0-36.0 g/dL Red Cell Distribution Width 12.7 11.0-15.5 % Platelet Count 117 L 130-400 K/uL Mean Platelet Volume 11.2 H 7.5-10.5 fL Nucleated Red Blood Cells 0.7 H 0.0-0.19 % Sodium Level 139 136-145 mmol/L Potassium Level 4.0 3.5-5.1 mmol/L Chloride Level 105 101-111 mmol/L Carbon Dioxide Level 28 21-32 mmol/L Blood Urea Nitrogen 15 7-18 mg/dL Creatinine 0.5 0.5-1.0 mg/dL Glomerular Filtration Rate Calc 109 >90 mL/min Random Glucose 242 H 70-105 mg/dL Total Calcium 8.1 L 8.5-10.1 mg/dL Magnesium Level 1.60 L 1.80-2.40 mg/dL Total Bilirubin 0.3 0.2-1.0 mg/dL Aspartate Amino Transf (AST/SGOT) 36 10-37 U/L Alanine Aminotransferase (ALT/SGPT) 27 12-78 U/L Alkaline Phosphatase 154 H 50-136 U/L Total Protein 6.3 6.0-8.3 g/dL Albumin 2.2 L 3.5-5.0 g/dL Blood Gas Specimen Type Arterial Arterial Blood pH 7.484 H 7.350-7.450 Arterial Blood Partial Pressure CO2 31 L 32-45 mmHg Arterial Blood Partial Pressure O2 100.1 83.0-108.0 mmHg Arterial Blood HCO3 22.9 21.0-28.0 mmol/L Arterial Blood Oxygen Saturation 96.0 94.0-98.0 % Arterial Blood Base Excess -0.4 -2.0-3.0 mmol/L Hemoglobin (Blood Gas) 6.8 *L 12.0-16.0 g/dL Sodium (Blood Gas) 136 136-145 MMOL/L Bedside Potassium (Blood Gas) 4.1 3.4-4.5 MMOL/L Bedside Chloride (Blood Gas) 105 98-107 MMOL/L Bedside Glucose (Blood Gas) 225 H 65-95 MG/DL Bedside Ionized Calcium (Blood Gas) 1.13 L 1.15-1.33 MMOL/L Bedside Lactic Acid (Blood Gas) 0.82 H 0.36-0.75 MMOL/L Blood Gas Temperature 37.0 35.5-37.0 CELSIUS Blood Gas Flow-by 1.00 0.00-15.00 L/min Blood Gas Vent Mode 1LNC ROOM AIR FiO2 24.0 % Blood Gas Specimen Comment EDILBERTO RN, RB Activated Partial Thromboplast Time 63.8 H 26.3-35.5 SEC Test 08/18/25 04:05 Range/Units Immature Granulocyte % (Auto) 1.5 H 0-1 % Neutrophils (%) (Auto) 55.3 40.0-77.0 % Lymphocytes (%) (Auto) 31.9 21.0-51.0 % Monocytes (%) (Auto) 7.2 3.0-13.0 % Eosinophils (%) (Auto) 3.9 0.0-8.0 % Basophils (%) (Auto) 0.2 0.0-5.0 % Neutrophils # (Auto) 4.7 1.8-7.7 K/uL Lymphocytes # (Auto) 2.7 1.0-4.8 K/uL Monocytes # (Auto) 0.6 0.1-1.0 K/uL Eosinophils # (Auto) 0.33 0.00-0.70 K/uL Basophils # (Auto) 0.02 0.00-0.20 K/uL Absolute Immature Granulocyte (auto 0.13 0-1 K/uL Procalcitonin 0.10 0.05-0.5 ng/mL DIAGNOSTICS / RADIOLOGY: [ ] ASSESSMENT: 1. Thrombocytopenia 2. Anemia 3. NSTEMI, POA 4. Cardiogenic shock SCAI stage D status post cardiac catheterization with multi vessel disease, Impella placement POA 5. Complete heart block, status post transvenous temporary pacemaker placement POA 6. CAD, with multivessel disease, POA 7. DM type 2, with hyperglycemia, poorly controlled, HGB A1c of 10.7 POA PLAN: 1.Peripheral blood smear showed macrocytic RBCs. There is no fragment cells or schistocyte .There is no tear drop cell. No rouleaux phenomena. No pelger-Huet cell, there were few premature atrial white blood cells with hypersegmented neutrophils might be secondary to infection. Platelet was normal in morphology and count. There is no evidence of heparin-induced thrombocytopenia. Patient can be continued on heparin. HIT antibody assay pending . There was hypersegmented neutrophils . This patient to be started on Folic acid 1 mg PO , daily and vitamin B 12 1000 mcg po daily . 2. Patient has anemia- Iron levels are normal . Drop in hemoglobin noted -s/p 1u PRBC - will request direct elieser test to rule out hemolysis. I attest that I was physically present to evaluate the patient and I reviewed and discussed the case with the Resident and agree with the Resident's findings and plans of care as documented above with modifications. Case discussed with resident on the date stated at the beginning of note. Patient was first seen and evaluated by me during this hospitalization. GEOFFREY HOWELL MD Aug 19, 2025 15:13 YAMILE MONTANO MD Aug 20, 2025 13:17
--- NOTE | 2025-08-19 16:14 | PN ---
[facility] PROGRESS NOTE Date Patient Seen: Aug 19, 2025 Time of Visit: 16:09 Supervising Physician: [ ] Consulting Physician: Hospitalist Outpatient Specialists: [ ] Inpatient Consults: [ ] PROBLEM LIST: Cardiogenic shock SCAI stage D status post cardiac catheterization with multivessel disease, Impella placement Complete heart block, status post transvenous temporary pacemaker placement Acute hypoxic respiratory failure, NSTEMI, POA Bactermia + Staph Cohni urealyticum DM type 2, with hyperglycemia, HGB A1c of 10.7 Cocaine abuse Tobacco use, current smoker History of CVA INTERVAL HISTORY: Patient was seen and examined, all labs and imaging have been reviewed, patient's comfortable in bed, nasal cannula at 1 L, good O2 sats She is reporting of pain in right shoulder not relieved by lidocaine patch Review of chest x-ray is clear, Patient's hemoglobin is 6.5, 1 unit of blood transfused, pending one more Nursing reports no acute events overnight. Afebrile Remains on Impella at P6 Plan: Plan is CABG Follow CT surgeon recs Neurovascular checks to extremities Telemetry Follow Cardiothoracic Surgical recommendations Antibiotics and cultures Critical care time 41 minutes, this time excludes any time spent on education or procedures. Patient requiring Impella support REVIEW OF SYSTEMS: 12 point ROS reviewed with patient. Pertinent positives mentioned above. Otherwise negative. PHYSICAL EXAM: GENERAL: alert, weak, awake oriented x 3 HEENT: EOMI, Sclera non icteric, moist mucosa NECK: Supple, no JVD, trachea midline LUNGS: Clear breath sounds bilaterally. No wheezes HEART: TVP Normal S1 and S2, without murmurs ABD: Abdomen soft, nontender. Bowel sounds present EXT: No clubbing cyanosis or edema NEURO: Alert and oriented to person, follows commands Vital Signs (last 8hr) Date Time Temp Pulse Resp B/P (MAP) Pulse Ox O2 Delivery O2 Flow Rate FiO2 08/19/25 11:21 99.5 Room Air 08/19/25 11:20 98 Room Air* 0 21 08/19/25 11:00 69 17 128/82 99 Nasal Cannula 1.0 08/19/25 10:22 61 20 99/51 96 08/19/25 10:00 68 17 107/73 98 Nasal Cannula 1.0 08/19/25 09:00 71 16 105/52 99 Nasal Cannula 1.0 LABS: Hematology Labs: Test 08/19/25 04:40 08/18/25 04:05 Range/Units White Blood Count 8.4 4.8-10.8 K/uL Red Blood Count 2.12 L 4.00-5.50 MIL/uL Hemoglobin 6.5 *L 12.0-16.0 g/dL Hematocrit 19.1 *L 36-48 % Mean Corpuscular Volume 90.1 79-99 fL Mean Corpuscular Hemoglobin 30.7 27.0-33.0 pg Mean Corpuscular Hemoglobin Concent 34.0 32.0-36.0 g/dL Red Cell Distribution Width 12.7 11.0-15.5 % Platelet Count 117 L 130-400 K/uL Mean Platelet Volume 11.2 H 7.5-10.5 fL Nucleated Red Blood Cells 0.7 H 0.0-0.19 % Immature Granulocyte % (Auto) 1.5 H 0-1 % Neutrophils (%) (Auto) 55.3 40.0-77.0 % Lymphocytes (%) (Auto) 31.9 21.0-51.0 % Monocytes (%) (Auto) 7.2 3.0-13.0 % Eosinophils (%) (Auto) 3.9 0.0-8.0 % Basophils (%) (Auto) 0.2 0.0-5.0 % Neutrophils # (Auto) 4.7 1.8-7.7 K/uL Lymphocytes # (Auto) 2.7 1.0-4.8 K/uL Monocytes # (Auto) 0.6 0.1-1.0 K/uL Eosinophils # (Auto) 0.33 0.00-0.70 K/uL Basophils # (Auto) 0.02 0.00-0.20 K/uL Absolute Immature Granulocyte (auto 0.13 0-1 K/uL Chemistry Labs: Test 08/19/25 11:31 08/19/25 04:40 08/18/25 04:05 Range/Units Whole Blood Glucose 241 H 70-110 MG/DL Sodium Level 139 136-145 mmol/L Potassium Level 4.0 3.5-5.1 mmol/L Chloride Level 105 101-111 mmol/L Carbon Dioxide Level 28 21-32 mmol/L Blood Urea Nitrogen 15 7-18 mg/dL Creatinine 0.5 0.5-1.0 mg/dL Glomerular Filtration Rate Calc 109 >90 mL/min Random Glucose 242 H 70-105 mg/dL Total Calcium 8.1 L 8.5-10.1 mg/dL Magnesium Level 1.60 L 1.80-2.40 mg/dL Total Bilirubin 0.3 0.2-1.0 mg/dL Aspartate Amino Transf (AST/SGOT) 36 10-37 U/L Alanine Aminotransferase (ALT/SGPT) 27 12-78 U/L Alkaline Phosphatase 154 H 50-136 U/L Total Protein 6.3 6.0-8.3 g/dL Albumin 2.2 L 3.5-5.0 g/dL Procalcitonin 0.10 0.05-0.5 ng/mL Coagulation Labs: Test 08/18/25 22:07 Range/Units Activated Partial Thromboplast Time 63.8 H 26.3-35.5 SEC DIAGNOSTICS / RADIOLOGY RESULTS: [facility] [id number] [place] [address] IMAGING REPORT Signed PATIENT: LUL ARTHUR MR#: [id number] : 1965 SEX: F AGE: 60 LOCATION: [facility] ORDER 2300 STATUS: ADM IN REPORT#: [id number] SERVICE 0600 REASON: impella ORDERING PHYSICIAN: CHIRAG HURTADO PAC PROCEDURE: CXR1VW - CHEST 1VW EXAM: CR Chest, single view. CLINICAL HISTORY: Impala device. COMPARISON: Prior chest radiograph dated August 18, 2025. FINDINGS: The Impala device is identified with a tip in the left ventricle. Borderline cardiomegaly with mild bilateral pulmonary congestion. Subtle blunting of the left costophrenic angle probably minimal left pleural effusion. No evidence of pneumothorax. The cardiomediastinal silhouette is within normal limits. No acute osseous abnormality. IMPRESSION: The Impala device is identified with a tip in the left ventricle. Borderline cardiomegaly with mild bilateral pulmonary congestion. Subtle blunting of the left costophrenic angle probably minimal left pleural effusion. Compared to the prior study, there is no significant interval change. /Norco DICTATED BY: MIAN ALONZO Jr., MD DATE: 08/19/25856 ELECTRONICALLY SIGNED BY: MIAN ALONZO Jr., MD DATE: 08/19/25856 PLAN NEURO: Minimize central acting medications as possible. Fall Precautions. Well lighted room through the day and minimize interruptions through the night to prevent acute delirium. PULMONARY: Supplemental 02 as needed Titrate Fio2 to keep Spo2 > or = 90% DuoNebs and CPT as needed IS hourly while awake for pulmonary hygiene CARDIOVASCULAR: Follow hemodynamics. Titrate vasopressor to keep MAP >65 or systolic blood pressure >95mmHg DIPS: Dopamine weaned off Heparin gtt LINES: Peripheral IV CVP Impella GI & NUTRITION: Continue nutritional support Aspirations precautions Prokinetic agents and laxatives as needed Clear liquid diet as tolerated KIDNEYS & ELECTROLYTES: Strict monitoring of intake and output Daily weights Avoid nephrotoxic agents Monitor electrolytes and replace as needed Goal urine output of 30mL/hr or 0.5mL/kg/hr ENDOCRINE: Maintain blood glucose between 100-180 at all times. Insulin sliding scale for blood glucose management INFECTIOUS DISEASE: Trend temperature. Astudillo-culture if febrile. Micro: [ ] Urine culture - Ecoli Blood culture - Staph cohnii urealyticum Antibiotics: [ ] Rocephin Vancomycin HEMATOLOGY & COAGULATION: Monitor H&H. Keep Hgb > 7 Transfuse 1 unit of PRBC for Hgb < 7 Transfuse 1 pack of platelets of platelets < 20, 000 Watch for any signs and symptoms of bleeding SKIN: Pressure ulcer prevention per facility protocol Rehab: PT/OT Prophylaxis: GI: PPI DVT: SCDs patient on heparin drip Code Status: Full Resuscitation Disposition: ICU ATTESTATION BY PHYSICIAN I have seen and examined the patient. I reviewed the documentation, medical decision making, and treatment plan as noted by the resident provider above. I agree with the findings and plan of care. Martha Neville MD, LAKSHMI MD Aug 19, 2025 16:14
--- NOTE | 2025-08-19 17:17 | NUR ---
PT CARE Pending transfusion of 1 unit PRBC's. Contact made with label printing machinist in blood bank - will call RN when unit is ready.
--- NOTE | 2025-08-19 21:22 | PN ---
Endocrinology progress note DOS: 08/19/25 subjective: on dopamine and heparin drip. cardiology following. pacemaker and impella placed. Home diabetic regimen: metformin 500 mg bid Hba1c 10.7% glucose runs greater than 180 mg/dl. REVIEW OF SYSTEMS CONSTITUTIONAL: generalized fatigue, malaise NEUROLOGICAL: Denies headache, amaurosis fugax, motor weakness, sensory deficit, vertigo/spinning sensation, gait abnormalities, or tremors. ENT: No hearing loss, otalgia, otorrhea, rhinitis, rhinorrhea, hoarseness, or sore throat. CARDIOVASCULAR: chest pain, Shortness of breath improving PULMONARY: Denies any shortness of breath, cough, phlegm/sputum, hemoptysis, pleuritic chest pain. SLEEP: Denies morning headaches, daytime somnolence or napping. Denies difficulty falling asleep, staying asleep, waking from sleep. Denies knowledge of snoring. GASTROINTESTINAL: Denies any type of dysphagia to either liquids or solids. Denies vomiting, pyrosis, early satiety, abdominal pain, diarrhea, constipation, or changes in stool consistency or caliber. Denies coffee-ground emesis, hematemesis, hematochezia, or melanotic stools. GENITOURINARY: Denies frequency, urgency, nocturia, hematuria or incontinence (Storage/Irritative symptoms.) Low urinary stream, straining to void, urinary intermittency or hesitancy, splitting of the voiding stream, terminal dribbling. ENDOCRINOLOGIC: Denies polyuria, polydipsia, polyphagia or heat/cold intolerances. HEMATOLOGIC: Denies thrombophilia/previous clots, or coagulopathy/bleeding disorders. ONCOLOGIC: Denies personal history of malignancy. DERMATOLOGIC: Denies rashes or pruritus. PSYCHIATRIC: Denies any suicidal or homicidal ideation. Denies hallucinations. PAST MEDICAL HISTORY: Coronary artery disease with history of abnormal coronary CT angiography, gastritis, anemia, cocaine use disorder, obesity, PTSD, anxiety disorder, history of NSTEMI in 04/2025, history of CVA in 2008 PAST SURGICAL HISTORY: History of ventral hernia repair 2008, hx of cholecystectomy, hx of C Section PAST SOCIAL HISTORY: Denies active alcohol consumption, intermittently smokes cigarettes as well as has been using cocaine chronically FAMILY HISTORY: Reports family history of heart disease Home medications: Patient does not have list of home medications, family will be bringing list of home medications to be updated Allergies: Patient has allergic reaction to lisinopril Coded Allergies: No Known Drug Allergies (Verified Allergy, Unknown, 05/04/22) lisinopril (Verified Allergy, Unknown, 05/04/22) DIAGNOSTICS / RADIOLOGY: SERVICE 24 REASON: cp ORDERING PHYSICIAN: ZORA OCHOA MD PROCEDURE: CXR1VW - CHEST 1VW EXAM: CR Chest, 1 View. CLINICAL HISTORY: cp COMPARISON: 07/08/25 FINDINGS: LUNGS: The lungs show no infiltrate or other acute finding. PLEURAL SPACES: No pleural effusion or pneumothorax. MEDIASTINUM: The cardiomediastinal silhouette is within normal limits. BONES: No aggressive appearing osseous lesion seen. IMPRESSION: No acute cardiopulmonary pathology is evident. /[place] DICTATED BY: BELKIS KURTZ MD DATE: 08/13/251731 ELECTRONICALLY SIGNED BY: BELKIS KURTZ MD DATE: 08/13/251731 ASSESSMENT: uncontrolled DM-2 Home diabetic regimen: metformin 500 mg bid Hba1c 10.7% glucose runs greater than 180 mg/dl but improving now. Cardiogenic shock with lactic acidosis, POA cardiology following for possible CABG procedure. NSTEMI/ACS, POA Complete heart block, POA History of multivessel coronary artery disease, POA History of cocaine use disorder, POA Severe nonketotic hyperglycemia, POA History of to poorly controlled type 2 diabetes mellitus, POA Lactic acidosis, POA History of anemia, POA History of gastritis, POA History of hypertension, POA History of PTSD/anxiety, POA Obesity, POA Medical noncompliance, POA PLAN: increase Lantus to 42 units daily and adjust for fasting glucose. increase Regular insulin to 17 units three times before meals and adjust for post-prandial glucose. Continue medium dose sliding scale insulin. Monitor glucose q x 6 hourly. Continue carb consistent diet. Keep glucose less than 180 mg/dl. Patient will need insulin at discharge. Vitals/Labs Vital Signs Date Time Temp Pulse Resp B/P (MAP) Pulse Ox O2 Delivery O2 Flow Rate FiO2 08/19/25 19:14 71 18 N/Cannula Low lpm 1.0 24 08/19/25 18:00 121/62 98 08/19/25 16:27 99.9 Laboratory Tests 08/19/25 04:40 08/19/25 17:00 Medications Current Medications Ondansetron HCl 4 mg ONCE ONCE IVP; Start 08/13/25 at 14:30; Stop 08/13/25 at 14:52; Status DC Sodium Chloride 500 ml @ 0 mls/hr ONCE ONCE IV Last administered on 08/13/25at 15:00; Start 08/13/25 at 14:30; Stop 08/13/25 at 14:31; Status DC Heparin Sodium (Porcine) *calculation based on ACTUAL B... AD PRN IV Last administered on 08/17/25at 04:46; Start 08/13/25 at 16:30; Stop 09/12/25 at 16:29 Heparin Sodium/ Dextrose 250 ml @ 0 mls/hr Q6H IV Last administered on 08/19/25at 03:35; Start 08/13/25 at 16:30; Stop 09/12/25 at 16:29 Norepinephrine 250 ml @ 0 mls/hr PROTOCOL IV; Start 08/13/25 at 15:30; Stop 09/12/25 at 15:29 Dopamine HCl/ Dextrose 250 ml @ As Directed STK-MED ONCE IV; Start 08/13/25 at 15:33; Stop 08/13/25 at 15:33; Status DC Aspirin 325 mg STK-MED ONCE .ROUTE; Start 08/13/25 at 15:34; Stop 08/13/25 at 15:33; Status DC Ticagrelor 180 mg ONCE ONCE PO Last administered on 08/13/25at 16:16; Start 08/13/25 at 16:00; Stop 08/13/25 at 16:01; Status DC Morphine Sulfate 1 mg ONCE ONCE IVP Last administered on 08/13/25at 16:23; Start 08/13/25 at 16:00; Stop 08/13/25 at 16:01; Status DC Ticagrelor 90 mg STK-MED ONCE .ROUTE; Start 08/13/25 at 15:50; Stop 08/13/25 at 15:50; Status DC Dopamine HCl/ Dextrose 250 ml @ 0 mls/hr PROTOCOL IV Last administered on 08/16/25at 16:41; Start 08/13/25 at 16:00; Stop 09/12/25 at 15:59 Aspirin 325 mg ONCE ONCE PO Last administered on 08/13/25at 16:15; Start 08/13/25 at 16:00; Stop 08/13/25 at 16:01; Status DC Lidocaine HCl 20 ml STK-MED ONCE .ROUTE; Start 08/13/25 at 16:12; Stop 08/13/25 at 16:12; Status DC Iohexol 35,000 mg STK-MED ONCE IV; Start 08/13/25 at 16:12; Stop 08/13/25 at 16:12; Status DC Heparin Sodium (Porcine) 10,000 unit STK-MED ONCE .ROUTE; Start 08/13/25 at 16:12; Stop 08/13/25 at 16:12; Status DC Nicardipine HCl 25 mg STK-MED ONCE IV; Start 08/13/25 at 16:12; Stop 08/13/25 at 16:12; Status DC Heparin Sodium/ Sodium Chloride 1,000 ml @ As Directed STK-MED ONCE IV; Start 08/13/25 at 16:12; Stop 08/13/25 at 16:12; Status DC Nitroglycerin 50 mg STK-MED ONCE .ROUTE; Start 08/13/25 at 16:12; Stop 08/13/25 at 16:12; Status DC Pantoprazole Sodium 40 mg Q24H IVP Last administered on 08/16/25at 16:07; Start 08/13/25 at 16:30; Stop 08/17/25 at 11:10; Status DC Insulin Human Regular INSULIN SLIDING SCAL... ACHS SQ Last administered on 08/16/25at 20:01; Start 08/13/25 at 16:30; Stop 08/16/25 at 20:46; Status DC Insulin Human Regular 5 unit ONCE ONCE IV; Start 08/13/25 at 16:30; Stop 08/13/25 at 16:31; Status DC Fentanyl Citrate 100 mcg STK-MED ONCE .ROUTE; Start 08/13/25 at 16:26; Stop 08/13/25 at 16:26; Status DC Midazolam HCl 2 mg STK-MED ONCE .ROUTE; Start 08/13/25 at 16:27; Stop 08/13/25 at 16:27; Status DC Acetaminophen 650 mg Q6H PRN PO Last administered on 08/19/25at 20:06; Start 08/13/25 at 16:30; Stop 09/12/25 at 16:29 Ondansetron HCl 4 mg Q6H PRN IVP; Start 08/13/25 at 16:30; Stop 08/14/25 at 14:08; Status DC Potassium Chloride 100 ml @ 100 mls/hr AD PRN IV Last administered on 08/16/25at 16:07; Start 08/13/25 at 16:30; Stop 09/12/25 at 16:29 Potassium Chloride 20 meq AD PRN PO; Start 08/13/25 at 16:30; Stop 09/12/25 at 16:29 Potassium Chloride 20 meq AD PRN PO Last administered on 08/15/25at 08:23; Start 08/13/25 at 16:30; Stop 09/12/25 at 16:29 Magnesium Sulfate 50 ml @ 0 mls/hr PROTOCOL IV Last administered on 08/19/25at 06:43; Start 08/13/25 at 16:30; Stop 09/12/25 at 16:29 Atorvastatin Calcium 40 mg HS PO Last administered on 08/18/25at 20:44; Start 08/13/25 at 21:00; Stop 09/12/25 at 20:59 Heparin Sodium/ Sodium Chloride 500 ml @ As Directed STK-MED ONCE IV; Start 08/13/25 at 17:14; Stop 08/13/25 at 17:14; Status DC Heparin Sodium (Porcine) 10,000 unit STK-MED ONCE .ROUTE; Start 08/13/25 at 18:03; Stop 08/13/25 at 18:03; Status DC Aspirin 81 mg DAILY PO Last administered on 08/19/25at 09:39; Start 08/14/25 at 09:00; Stop 09/13/25 at 08:59 Insulin Glargine 10 units HS SQ Last administered on 08/13/25at 20:21; Start 08/13/25 at 21:00; Stop 08/14/25 at 06:16; Status DC Dextrose 50 ml AD PRN IV; Start 08/13/25 at 20:00; Stop 09/12/25 at 19:59 Glucagon 1 mg AD PRN IM; Start 08/13/25 at 20:00; Stop 09/12/25 at 19:59 Sodium Bicarbonate 25 meq/Dextrose 1,000 ml @ 0 mls/hr Q0M IVP; Start 08/14/25 at 00:30; Stop 08/14/25 at 00:15; Status DC Sodium Bicarbonate 25 meq/Dextrose 1,000 ml @ 0 mls/hr Q0M IV Last administered on 08/18/25at 20:46; Start 08/14/25 at 00:30; Stop 09/13/25 at 00:29 Glycerin 1 supp ONCE ONCE RC Last administered on 08/14/25at 05:56; Start 08/14/25 at 05:00; Stop 08/14/25 at 05:06; Status DC Insulin Glargine 20 units DAILY SQ Last administered on 08/14/25at 08:01; Start 08/14/25 at 09:00; Stop 08/15/25 at 07:24; Status DC Ticagrelor 90 mg BID PO Last administered on 08/14/25at 20:09; Start 08/14/25 at 09:00; Stop 08/14/25 at 21:19; Status DC Morphine Sulfate 2 mg Q6H PRN IVP Last administered on 08/19/25at 12:22; Start 08/14/25 at 09:30; Stop 08/19/25 at 12:29; Status DC Polyethylene Glycol 17 gm DAILY PO Last administered on 08/19/25at 09:38; Start 08/15/25 at 09:00; Stop 09/14/25 at 08:59 Docusate Sodium 100 mg BID PRN PO; Start 08/14/25 at 11:00; Stop 09/13/25 at 10:59 Ceftriaxone Sodium 2 gm Q24H IVPB Last administered on 08/19/25at 11:47; Start 08/14/25 at 11:30; Stop 08/24/25 at 11:29 Insulin Human Regular 5 unit TIDAC SQ Last administered on 08/15/25at 07:03; Start 08/14/25 at 17:00; Stop 08/15/25 at 07:24; Status DC Chlordiazepoxide HCl 25 mg Q2H PRN PO Last administered on 08/16/25at 23:38; Start 08/14/25 at 14:30; Stop 08/21/25 at 14:29 Chlordiazepoxide HCl 50 mg Q1H PRN PO; Start 08/14/25 at 14:30; Stop 08/21/25 at 14:29 Ondansetron HCl 4 mg Q4H PRN IV Last administered on 08/14/25at 14:17; Start 08/14/25 at 14:30; Stop 09/13/25 at 14:29 Promethazine HCl 25 mg Q6H PRN PO; Start 08/14/25 at 14:30; Stop 09/13/25 at 14:29 Acetaminophen 500 mg Q6H PRN PO; Start 08/14/25 at 14:30; Stop 09/13/25 at 14:29 Thiamine HCl 300 mg DAILY IV Last administered on 08/17/25at 07:46; Start 08/15/25 at 09:00; Stop 08/17/25 at 09:01; Status DC Folic Acid 1 mg DAILY PO Last administered on 08/17/25at 07:46; Start 08/15/25 at 09:00; Stop 08/17/25 at 09:01; Status DC Multivitamins Therapeutic 1 tab DAILY PO Last administered on 08/19/25at 09:38; Start 08/15/25 at 09:00; Stop 09/14/25 at 08:59 Pharmacy Profile Note 1 each PROTOCOL PRN MISC; Start 08/14/25 at 14:30; Stop 08/14/25 at 14:08; Status DC Insulin Glargine 30 units DAILY SQ Last administered on 08/15/25at 08:28; Start 08/15/25 at 09:00; Stop 08/16/25 at 07:19; Status DC Insulin Human Regular 8 unit TIDAC SQ Last administered on 08/15/25at 16:02; Start 08/15/25 at 07:30; Stop 08/15/25 at 22:46; Status DC Diphenhydramine HCl 25 mg ONCE ONCE IM; Start 08/15/25 at 21:00; Stop 08/15/25 at 22:52; Status DC Insulin Human Regular 10 unit TIDAC SQ Last administered on 08/17/25at 16:09; Start 08/16/25 at 07:30; Stop 08/17/25 at 21:12; Status DC Diphenhydramine HCl 25 mg ONCE PRN IV; Start 08/15/25 at 23:00; Stop 08/17/25 at 22:59; Status DC Insulin Glargine 35 units DAILY SQ Last administered on 08/18/25at 07:59; Start 08/16/25 at 09:00; Stop 08/19/25 at 07:35; Status DC Bisacodyl 10 mg DAILY RC Last administered on 08/18/25at 07:58; Start 08/17/25 at 09:00; Stop 08/20/25 at 08:59 Insulin Human Lispro INSULIN SLIDING SCAL... ACHS SQ; Start 08/16/25 at 21:00; Stop 08/17/25 at 09:31; Status DC Insulin Glargine 5 units BID@0730,2100 SQ Last administered on 08/16/25at 21:21; Start 08/16/25 at 21:00; Stop 08/17/25 at 09:31; Status DC Pantoprazole Sodium 40 mg Q12H IVP Last administered on 08/19/25at 16:43; Start 08/17/25 at 16:30; Stop 09/12/25 at 16:29 Insulin Human Regular INSULIN SLIDING SCAL... ACHS SQ Last administered on 08/19/25at 16:46; Start 08/17/25 at 16:30; Stop 09/16/25 at 16:29 Insulin Human Regular 12 unit TIDAC SQ Last administered on 08/18/25at 16:39; Start 08/18/25 at 07:30; Stop 08/18/25 at 20:19; Status DC Vancomycin HCl 1 each AD IV; Start 08/17/25 at 22:00; Stop 08/31/25 at 21:59 Vancomycin HCl 250 ml @ 83.333 mls/ hr ONCE ONCE IV Last administered on 08/17/25at 23:05; Start 08/17/25 at 22:30; Stop 08/18/25 at 01:29; Status DC Vancomycin HCl 250 ml @ 125 mls/hr Q12H IV Last administered on 08/19/25at 09:39; Start 08/18/25 at 09:00; Stop 08/19/25 at 20:54; Status DC Albumin Human 50 ml @ 0 mls/hr BID IV Last administered on 08/19/25at 09:39; Start 08/18/25 at 09:00; Stop 08/23/25 at 08:59 Lidocaine 1 each DAILY TP Last administered on 08/19/25at 07:51; Start 08/19/25 at 09:00; Stop 09/18/25 at 08:59 Lidocaine 1 each ONCE ONCE TP Last administered on 08/18/25at 13:52; Start 08/18/25 at 14:00; Stop 08/18/25 at 14:01; Status DC Diphenhydramine HCl 25 mg ONCE ONCE PO Last administered on 08/18/25at 15:19; Start 08/18/25 at 15:30; Stop 08/18/25 at 15:31; Status DC Insulin Human Regular 16 unit TIDAC SQ Last administered on 08/19/25at 16:47; Start 08/19/25 at 07:30; Stop 09/18/25 at 07:29 Insulin Glargine 42 units DAILY SQ Last administered on 08/19/25at 09:40; Start 08/19/25 at 09:00; Stop 09/18/25 at 08:59 Calcium Carbonate 500 tab QID PRN PO Last administered on 08/19/25at 12:18; Start 08/19/25 at 12:00; Stop 09/18/25 at 11:59 Morphine Sulfate 2 mg Q6H PRN IVP Last administered on 08/19/25at 17:50; Start 08/19/25 at 18:00; Stop 08/26/25 at 17:59 Cefazolin Sodium 2 gm ONCALL IVP; Start 08/19/25 at 19:30; Stop 08/21/25 at 19:29 Vancomycin HCl 250 ml @ 125 mls/hr Q8H IV; Start 08/19/25 at 21:30; Stop 08/29/25 at 21:29 CAROLYN BYRNE MD Aug 19, 2025 21:22
[2025-08-19] MEDS: VANCOMYCIN 1G/250ML KIT 250 ML IV SCH (21:58)
[2025-08-20] VITALS (96 sets, daily range): BP systolic 0–163; BP diastolic 0–95; PULSE 63–114; RESP 5–29; TEMP 98.2–99; O2SAT 93–100
[2025-08-20] MEDS: ALBUMIN (HUMAN) 5% 250 ML IV ONE
[2025-08-20 00:02] LABS: ABG BASE EXCESS 2.5 mmol/L (-2.0-3.0); ABG HCO3 25.3 mmol/L (21.0-28.0); ABG OXYGEN SATURATION 94.8 % (94.0-98.0); ABG PCO2 31 mmHg (32-45); ABG PH 7.525 (7.350-7.450); CARBON MONOXIDE 1.4 % (0.5-1.5); DEVICE COMMENT RR RN ISAMAR; PO2, ARTERIAL BG 71.8 mmHg (83.0-108.0); TEMPERATURE, CELSIUS BG 37.0 CELSIUS (35.5-37.0); VENT MODE, BG NC (ROOM AIR)
--- NOTE | 2025-08-20 00:36 | NUR ---
Suction Alarms Spoke to Dr. Sanches and informed her pt having suction alarms. Had received pt at P6 (with 3l/min flow) and P level decreased to P5 (1.8l/min flow) due to suction alarms. Per Dr. Sanches ok to keep P5 and may keep decreasing P levels to break suction if needed. If pt keeps having suction alarms despite NS bolus, blood administration, and decrease in P Levels call patient service technician pst for limited echo to check for Impella depth placement.
[2025-08-20] MEDS: 0.9% NACL 500ML IV.SOLN 500 ML IV SCH (00:53)
--- NOTE | 2025-08-20 02:43 | NUR ---
Chest Pressure 0243- paged regarding pt with complaints of chest pressure and shortness of breath. Will await callback. 0250-Spoke to Dr. Sanches and informed her pt having complaints of chest pressure and shortness of breath. Per Dr. Sanches obtain EKG and increase P level to P5. If pt continues with chest pressure place pt on nitroglycerin patch. 0259-Dr. Sanches made aware of EKG results. Informed her pt has chest pressure 10/10 and shortness of breath. made aware pt with suction alarms at P5 so decreased to P4. Per Dr. Sanches start patient on Nitroglycerin drip.
[2025-08-20] MEDS: NITROGLYCERIN 50MG/D5W 250ML 250 BOT IV SCH (03:12)
[2025-08-20 05:01] LABS: CREATININE 0.4 mg/dL (0.5-1.0); GLOMERULAR FILTR. RATE CALC 115.0 mL/min (>90); GLUCOSE,RANDOM 182.0 mg/dL (70-105); NUCLEATED RED BLOOD CELLS 1.0 % (0.0-0.19); PLATELET COUNT (AUTO) 127.0 K/uL (130-400); RED BLOOD CELL COUNT(AUTO) 2.72 MIL/uL (4.00-5.50); RED CELL DISTRIBUTION WIDTH 13.5 % (11.0-15.5); SODIUM SERUM 141.0 mmol/L (136-145); UREA NITROGEN, BLOOD 12.0 mg/dL (7-18); WHITE BLOOD COUNT (AUTO) 9.7 K/uL (4.8-10.8)
[2025-08-20 05:14] LABS: INR 1.02 (0.85-1.15)
[2025-08-20 05:27] LABS: ASPARTATE AMINOTRANSFERASE 27.0 U/L (10-37); LDL DIRECT 31.0 mg/dL (0-99); TOTAL PROTEIN, SERUM 5.9 g/dL (6.0-8.3)
--- NOTE | 2025-08-20 06:30 | EKG ---
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 : 1965 Requested By: CHANDRIKA ELAINE Order Number: [id number] Reading MD: Sagar Alex Measurements Intervals [place] Rate: 90 P: 234 OR: 273 QRS: 11 QRSD: 127 T: 101 QT: 457 QTc: 561 Interpretive Statements Second degree AV block, Mobitz II IVCD, consider RBBB Probable inferior infarct, old Repol abnrm suggests ischemia, diffuse leads Compared to ECG 08/13/2025 14:22:04 Second-degree AV block, Mobitz type I (Wenckebach) now present Myocardial infarct finding now present Early repolarization now present Possible ischemia now present Left bundle-branch block no longer present Electronically Signed On 08-20-2025 16:31:44 CDT by Sagar Alex Please click the below link to view image of tracing.
--- NOTE | 2025-08-20 08:20 | NUR ---
NURSING NOTE DR. BARTHOLOMEW AT BEDSIDE, IMPELLA POSITION ADJUSTED VIA ULTRASOUND BY NEW POSITION AT 104CM
[2025-08-20] MEDS ORDERED: HEParin-NS 1,000 UNIT/500 ML 500 ML IV ONE (08:23)
--- NOTE | 2025-08-20 08:56 | EKG ---
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 : 1965 Requested By: DIA KESSLER Order Number: [id number] Reading MD: Sagar Alex Measurements Intervals [place] Rate: 94 P: -39 WV: 201 QRS: 181 QRSD: 127 T: 52 QT: 389 QTc: 486 Interpretive Statements Sinus rhythm Borderline prolonged WV interval Nonspecific intraventricular conduction delay Inferior infarct, old Nonspecific T abnormalities, lateral leads Compared to ECG 08/20/2025 02:52:14 T-wave abnormality now present Second-degree AV block, Mobitz type I (Wenckebach) no longer present Early repolarization no longer present Possible ischemia no longer present Myocardial infarct finding still present Electronically Signed On 08-20-2025 16:31:57 CDT by Sagar Alex Please click the below link to view image of tracing.
[2025-08-20] MEDS ORDERED: NOREPINEPHRIN 8MG/250ML NS 250 ML IV PRN (09:00)
--- NOTE | 2025-08-20 10:51 | PN ---
[facility] CARDIOLOGY PROGRESS NOTE Date Patient Seen: Aug 20, 2025 Time of Visit: 10:49 Problem List: NSTEMI ICMP CARDIOGENIC SHOCK COCAINE USE Interval History: Seen in ICU Impella CP to R WIRER HELPER at P-4 On 2L O2 via NC, complaints of dyspnea Multiple suction alarms overnight -- initial resolution with 500 cc NS bolus and downtitration to P-4, with limited echo showing Impella shallow. It was repositioned at bedside by Dr Alex She has had good UOP since this AM after repositioning Pending CABG later today Physical Examination: GENERAL: [well appearing, calm, no distress HEAD: [Normal with no signs of head trauma.] EYES: [PERRLA, EOMI, conjunctiva and sclera normal.] ENT: [Hearing grossly intact.] LUNGS: [Clear breath sounds bilaterally. on 2L O2 via N. no tachypnea. no distress.. No wheezes, or rhonchi.] HEART: [NSR. Normal S1 and S2 without murmurs, gallop or rub.] VASC: [Peripheral pulses +2 bilaterally. distal extremities are warm] ABD: [soft, nontender.] EXT: [No clubbing, cyanosis or edema. Right WIRER HELPER Impella CP and TVPM insertion site no ecchymoses or bleeding. SKIN: [No rashes or lesions noted. warm, dry NEURO: [Awake, alert, and oriented x3. No focal sensory or strength deficits noted.] Laboratory: [ ] Hematology Labs: Test 08/20/25 04:40 Range/Units White Blood Count 9.7 4.8-10.8 K/uL Red Blood Count 2.72 #L 4.00-5.50 MIL/uL Hemoglobin 8.3 L 12.0-16.0 g/dL Hematocrit 24.5 L 36-48 % Mean Corpuscular Volume 90.1 79-99 fL Mean Corpuscular Hemoglobin 30.5 27.0-33.0 pg Mean Corpuscular Hemoglobin Concent 33.9 32.0-36.0 g/dL Red Cell Distribution Width 13.5 11.0-15.5 % Platelet Count 127 L 130-400 K/uL Mean Platelet Volume 11.6 H 7.5-10.5 fL Nucleated Red Blood Cells 1.0 H 0.0-0.19 % Chemistry Labs: Test 08/20/25 08:57 08/20/25 04:40 Range/Units Whole Blood Glucose 189 H 70-110 MG/DL Sodium Level 141 136-145 mmol/L Potassium Level 4.0 3.5-5.1 mmol/L Chloride Level 107 101-111 mmol/L Carbon Dioxide Level 25 21-32 mmol/L Blood Urea Nitrogen 12 7-18 mg/dL Creatinine 0.4 L 0.5-1.0 mg/dL Glomerular Filtration Rate Calc 115 >90 mL/min Random Glucose 182 H 70-105 mg/dL Total Calcium 8.0 L 8.5-10.1 mg/dL Magnesium Level 1.70 L 1.80-2.40 mg/dL Total Bilirubin 0.5 # 0.2-1.0 mg/dL Aspartate Amino Transf (AST/SGOT) 27 10-37 U/L Alanine Aminotransferase (ALT/SGPT) 23 12-78 U/L Alkaline Phosphatase 102 # 50-136 U/L Total Protein 5.9 L 6.0-8.3 g/dL Albumin 2.3 L 3.5-5.0 g/dL Triglycerides Level 58 30-200 mg/dL Cholesterol Level 83 # <200 mg/dL LDL Cholesterol 31 0-99 mg/dL HDL Cholesterol 39 35-85 mg/dL Coagulation Labs: Test 08/20/25 04:40 Range/Units Prothrombin Time 10.8 9.6-11.6 SEC Prothromb Time International Ratio 1.02 0.85-1.15 Activated Partial Thromboplast Time 58.9 H 26.3-35.5 SEC Impression and Plan: 1. Non ST-elevation NV complicated by cardiogenic shock and complete heart block status post Impella placement in the R WIRER HELPER and TVPM to R CFV 2. CAD with total occlusion of the right coronary artery unable to cross with a wire , of note the patient had a 30-40% RCA stenosis in April of this year raising possibility of spasm and or plaque rupture. LV ejection fraction of 50% with hypokinesis of the infero base by echo this admission. Previously known severe disease of pLAD and pLCx. 3. Cocaine abuse , tox screen positive for cocaine and benzodiazepines 4. Diabetes mellitus type 2 uncontrolled 5. Tobacco dependence 6. Remote CVA 2008 7. Noncompliance history, the patient has been seen in the hospital but has not followed up in the office. 8. Dyslipidemia 9. Urinary tract infection 10. Bacteremia one of two sets possibly contamination 11. Thrombocytopenia Continue with Impella support, to P-5 Heparin gtt on hold pending CABG TVPM continue at backup rate of 40 bpm Continue ASA, statin. Awaiting timing of CABG CHANDRIKA ELAINE DO Aug 20, 2025 10:51
--- NOTE | 2025-08-20 11:00 | PN ---
[facility] PROGRESS NOTE Date of Service: Aug 20, 2025 Time of Service: 10:55 SUBJECTIVE: This is a 60-year-old female with underlying history of obesity, coronary artery disease, poorly controlled type 2 diabetes mellitus, history of anemia, history of cocaine use, tobacco use disorder, history of CVA in 2008, who presented to the ER for further evaluation of severe substernal chest pain and shortness of breadth. Patient reports having history of cocaine use with last use of cocaine yesterday. She reports having severe substernal chest pain that started today in it has been associated with dizziness, and generalized malaise. Pain is 10/ 0 in severity. Patient denies any syncope or fall. She has been having lightheadedness with ambulation. She has not been able to follow up with Cardiology as outpatient. She has a previous history of abnormal CT coronary angiography when she was hospitalized in 04/2025 and she was treated medically. With regards to type 2 diabetes mellitus, she reports being on metformin as ou tpatient. On presentation to the hospital, patient was noted to be hypotensive with blood pressure of 80/60 with heart rate of 40 with EKG showing complete heart block. [place] [address], hemoglobin 12.4, platelet count of 173406. BMP showed sodium of 133, potassium 4.8, chloride of 99, BUN of 21, creatinine 1.0, blood glucose of 403, [place] [address]. Chest x-ray showed no acute infiltrates. Patient will be admitted for further management of cardiogenic shock, NSTEMI, complete heart block with history of poorly controlled type 2 diabetes mellitus. Patient will be emergently taken to the laboratory director for cardiac catheterization/ PCI and tentative plan for MCS support. Patient will be admitted to intensive care unit and she remains critically ill. 08/14 patient remains critically ill requiring Impella and dopamine support. UDS has demonstrated benzos and cocaine 08/15 patient remains on Impella 08/16 patient appears to be resting comfortably in bed. She remains on Impella and dopamine support. She reports she would like to be bathed and wants her hair combed significant and she is feeling better 08/17 patient is on GI soft diet tolerating well. She remains on Impella support 08/18 patient is resting comfortably in bed. She remains on Impella. Tolerating oral intake. 08/19 hemoglobin dropped to 6.5 from 7.0-7.5 yesterday. I agree with transfusing 1 unit PRBC. Patient remains on Impella. Patient is resting comfortably in bed. 08/20 patient is resting comfortably in bed. She remains on Impella support pending recovery for CABG. REVIEW OF SYSTEMS CONSTITUTIONAL: generalized fatigue, malaise NEUROLOGICAL: Denies headache, amaurosis fugax, motor weakness, sensory deficit, vertigo/spinning sensation, gait abnormalities, or tremors. ENT: No hearing loss, otalgia, otorrhea, rhinitis, rhinorrhea, hoarseness, or sore throat. CARDIOVASCULAR: chest pain, Shortness of breath, dizziness, lightheadedness PULMONARY: Denies any shortness of breath, cough, phlegm/sputum, hemoptysis, pleuritic chest pain. SLEEP: Denies morning headaches, daytime somnolence or napping. Denies difficulty falling asleep, staying asleep, waking from sleep. Denies knowledge of snoring. GASTROINTESTINAL: Reports having nausea, Denies any type of dysphagia to either liquids or solids. Denies vomiting, pyrosis, early satiety, abdominal pain, diarrhea, constipation, or changes in stool consistency or caliber. Denies coffee-ground emesis, hematemesis, hematochezia, or melanotic stools. GENITOURINARY: Denies frequency, urgency, nocturia, hematuria or incontinence (Storage/Irritative symptoms.) Low urinary stream, straining to void, urinary intermittency or hesitancy, splitting of the voiding stream, terminal dribbling. ENDOCRINOLOGIC: Denies polyuria, polydipsia, polyphagia or heat/cold intolerances. HEMATOLOGIC: Denies thrombophilia/previous clots, or coagulopathy/bleeding disorders. ONCOLOGIC: Denies personal history of malignancy. DERMATOLOGIC: Denies rashes or pruritus. PSYCHIATRIC: Denies any suicidal or homicidal ideation. Denies hallucinations. PHYSICAL EXAM GENERAL APPEARANCE: The patient is awake, appears ill and in mild distress NEUROLOGICAL: Cranial nerves II-XII grossly intact. Motor is 5/5 in bilateral upper and lower extremities proximal to distal. No sensory deficits. HEENT: Face is symmetric. Pupils are equal and reactive. Extraocular movements are intact. NECK: Supple. No JVD. No thyromegaly. No submental, submandibular, pre- /postauricular, occipital or supraclavicular lymphadenopathy. CHEST: Normal chest expansion. No Telemetry. LUNGS: minimal crackles noted of the bilateral lung bases CARDIOVASCULAR: Regular. S1 and S2 normal. No appreciable rubs, murmurs or gallops. ABDOMEN: Soft, nontender, and nondistended. There is no rebound, voluntary guarding, or rigidity. : Deferred. No Coombs. EXTREMITIES: trace edema noted of the bilateral lower extremities SKIN: No skin breakdown. Vital Signs (last 8hr) Date Time Temp Pulse Resp B/P (MAP) Pulse Ox O2 Delivery O2 Flow Rate FiO2 08/20/25 09:00 92 17 123/74 (90) 97 08/20/25 08:45 92 21 116/76 (89) 97 08/20/25 08:30 91 17 121/76 (91) 96 08/20/25 08:15 94 21 132/72 (92) 95 08/20/25 08:00 98 Nasal Cannula* 1 24 08/20/25 08:00 99.0 08/20/25 08:00 93 20 119/67 (84) 97 08/20/25 07:45 95 16 116/74 (88) 96 08/20/25 07:30 96 14 121/62 (81) 96 08/20/25 07:15 94 16 121/63 (82) 97 08/20/25 07:00 92 14 116/66 (83) 97 08/20/25 06:45 92 21 114/63 (80) 95 08/20/25 06:30 92 20 125/95 (105) 96 08/20/25 06:15 94 15 129/79 (96) 96 08/20/25 06:00 92 17 115/62 (79) 94 08/20/25 05:45 90 19 116/67 (83) 97 08/20/25 05:30 94 21 125/69 (87) 96 08/20/25 05:15 96 15 121/61 (81) 97 08/20/25 05:00 92 17 126/66 (86) 96 08/20/25 04:55 93 16 125/69 (87) 96 08/20/25 04:50 92 18 117/61 (79) 96 08/20/25 04:45 93 19 121/68 (85) 95 08/20/25 04:40 91 18 118/66 (83) 95 08/20/25 04:30 92 20 121/66 (84) 95 08/20/25 04:15 94 15 119/58 (78) 95 08/20/25 04:00 93 16 117/67 (84) 95 08/20/25 03:49 () 08/20/25 03:45 93 16 120/61 (80) 96 08/20/25 03:44 () 08/20/25 03:40 94 16 122/64 (83) 94 08/20/25 03:39 () 08/20/25 03:35 94 17 119/71 (87) 94 08/20/25 03:34 () 08/20/25 03:30 93 14 122/67 (85) 93 08/20/25 03:29 08/20/25 03:25 93 19 119/68 (85) 94 08/20/25 03:24 08/20/25 03:20 94 20 121/70 (87) 95 08/20/25 03:19 08/20/25 03:15 93 18 121/66 (84) 96 08/20/25 03:14 08/20/25 03:12 114/63 08/20/25 03:10 95 17 119/71 (87) 96 08/20/25 03:09 () 08/20/25 03:05 96 16 121/64 (83) 95 08/20/25 03:04 () 08/20/25 03:00 93 17 119/70 (86) 96 08/20/25 03:00 98.2 Nasal Cannula 3.0 LABS: Laboratory: Test 08/20/25 08:57 08/20/25 04:40 08/20/25 00:00 08/19/25 19:39 Range/Units Whole Blood Glucose 189 H 70-110 MG/DL White Blood Count 9.7 4.8-10.8 K/uL Red Blood Count 2.72 #L 4.00-5.50 MIL/uL Hemoglobin 8.3 L 12.0-16.0 g/dL Hematocrit 24.5 L 36-48 % Mean Corpuscular Volume 90.1 79-99 fL Mean Corpuscular Hemoglobin 30.5 27.0-33.0 pg Mean Corpuscular Hemoglobin Concent 33.9 32.0-36.0 g/dL Red Cell Distribution Width 13.5 11.0-15.5 % Platelet Count 127 L 130-400 K/uL Mean Platelet Volume 11.6 H 7.5-10.5 fL Nucleated Red Blood Cells 1.0 H 0.0-0.19 % Prothrombin Time 10.8 9.6-11.6 SEC Prothromb Time International Ratio 1.02 0.85-1.15 Activated Partial Thromboplast Time 58.9 H 26.3-35.5 SEC Sodium Level 141 136-145 mmol/L Potassium Level 4.0 3.5-5.1 mmol/L Chloride Level 107 101-111 mmol/L Carbon Dioxide Level 25 21-32 mmol/L Blood Urea Nitrogen 12 7-18 mg/dL Creatinine 0.4 L 0.5-1.0 mg/dL Glomerular Filtration Rate Calc 115 >90 mL/min Random Glucose 182 H 70-105 mg/dL Total Calcium 8.0 L 8.5-10.1 mg/dL Magnesium Level 1.70 L 1.80-2.40 mg/dL Total Bilirubin 0.5 # 0.2-1.0 mg/dL Aspartate Amino Transf (AST/SGOT) 27 10-37 U/L Alanine Aminotransferase (ALT/SGPT) 23 12-78 U/L Alkaline Phosphatase 102 # 50-136 U/L Total Protein 5.9 L 6.0-8.3 g/dL Albumin 2.3 L 3.5-5.0 g/dL Triglycerides Level 58 30-200 mg/dL Cholesterol Level 83 # <200 mg/dL LDL Cholesterol 31 0-99 mg/dL HDL Cholesterol 39 35-85 mg/dL Blood Gas Specimen Type Arterial Arterial Blood pH 7.525 H 7.350-7.450 Arterial Blood Partial Pressure CO2 31 L 32-45 mmHg Arterial Blood Partial Pressure O2 71.8 L 83.0-108.0 mmHg Arterial Blood HCO3 25.3 21.0-28.0 mmol/L Arterial Blood Oxygen Saturation 94.8 94.0-98.0 % Arterial Blood Base Excess 2.5 -2.0-3.0 mmol/L Hemoglobin (Blood Gas) 7.5 L 12.0-16.0 g/dL Sodium (Blood Gas) 136 136-145 MMOL/L Bedside Potassium (Blood Gas) 3.9 3.4-4.5 MMOL/L Bedside Chloride (Blood Gas) 106 98-107 MMOL/L Bedside Glucose (Blood Gas) 195 H 65-95 MG/DL Bedside Ionized Calcium (Blood Gas) 1.10 L 1.15-1.33 MMOL/L Bedside Lactic Acid (Blood Gas) 1.17 H 0.36-0.75 MMOL/L Blood Gas Temperature 37.0 35.5-37.0 CELSIUS Blood Gas Vent Mode NC ROOM AIR FiO2 21.0 % Blood Gas Specimen Comment RR RN EDILBERTO Vancomycin Level Trough 7.0 L 10.0-20.0 UG/ML Test 08/19/25 04:10 Range/Units Blood Gas Flow-by 1.00 0.00-15.00 L/min Current Medications Medications (Trade) Dose Ordered Sig/Elmer Route PRN Reason Start Time Stop Time Status Last Admin Dose Admin Acetaminophen (TYLenol 325MG TAB) 650 mg Q6H PRN PO MILD PAIN (1-3) 08/13/25 16:30 09/12/25 16:29 08/20/25 01:28 650 MG Acetaminophen (TYLenol 500MG TAB) 500 mg Q6H PRN PO TEMP < 101.1 AND/OR HEADACHE 08/14/25 14:30 09/13/25 14:29 08/20/25 08:23 500 MG Albumin Human 50 ml @ 0 mls/hr BID IV 08/18/25 09:00 08/23/25 08:59 08/19/25 21:22 50 MLS/HR Aminocaproic Acid 32371 mg/Sodium Chloride 480 ml @ 0 mls/hr AD PRN IV BLEEDING CONTROL 08/20/25 08:00 09/19/25 07:59 Aminocaproic Acid 31574 mg/Sodium Chloride 480 ml @ 0 mls/hr AD PRN IV BLEEDING CONTROL 08/20/25 09:00 08/20/25 09:03 DC Aspirin (Aspirin 81mg Chew Tab) 81 mg DAILY PO 08/14/25 09:00 09/13/25 08:59 08/20/25 08:21 81 MG Atorvastatin Calcium (LIPItor 40MG) 40 mg HS PO 08/13/25 21:00 09/12/25 20:59 08/19/25 21:22 40 MG Bisacodyl (DulcoLAX) 10 mg DAILY RC 08/17/25 09:00 08/20/25 08:59 DC 08/18/25 07:58 10 MG Calcium Carbonate (Tums 500 Mg Chew Tab) 500 tab QID PRN PO HEARTBURN 08/19/25 12:00 09/18/25 11:59 08/20/25 05:10 1 TAB Cefazolin Sodium (Ancef) 2 gm ONCALL IVP 08/19/25 19:30 08/21/25 19:29 Ceftriaxone Sodium (Rocephin 2gm Inj) 2 gm Q24H IVPB 08/14/25 11:30 08/24/25 11:29 08/19/25 11:47 2 GM Chlordiazepoxide HCl (LIBrium 25 MG CAP) 25 mg Q2H PRN PO ALCOHOL WITHDRAWAL PROTOCOL 08/14/25 14:30 08/21/25 14:29 08/16/25 23:38 25 MG Chlordiazepoxide HCl (LIBrium 25 MG CAP) 50 mg Q1H PRN PO ALCOHOL WITHDRAWAL PROTOCOL 08/14/25 14:30 08/21/25 14:29 Dextrose (D50w) 50 ml AD PRN IV HYPOGLYCEMIA PROTOCOL 08/13/25 20:00 09/12/25 19:59 Diphenhydramine HCl (BENAdryl INJ) 25 mg ONCE PRN IV ITCHING 08/15/25 23:00 08/17/25 22:59 DC Docusate Sodium (COLace 100MG CAP) 100 mg BID PRN PO CONSTIPATION 08/14/25 11:00 09/13/25 10:59 Dopamine HCl/ Dextrose 250 ml @ 0 mls/hr PROTOCOL IV 08/13/25 16:00 09/12/25 15:59 08/16/25 16:41 3 MLS/HR Epinephrine HCl 10 mg/Sodium Chloride 250 ml @ 0 mls/hr AD PRN IV TITRATE 08/20/25 08:00 09/19/25 07:59 Epinephrine HCl 10 mg/Sodium Chloride 250 ml @ 0 mls/hr AD PRN IV TITRATE 08/20/25 09:00 08/20/25 09:03 DC Folic Acid (FOLic ACID 1 MG TABLET) 1 mg DAILY PO 08/15/25 09:00 08/17/25 09:01 DC 08/17/25 07:46 1 MG Glucagon (Glucagon 1mg Kit) 1 mg AD PRN IM HYPOGLYCEMIA PROTOCOL 08/13/25 20:00 09/12/25 19:59 Heparin Sodium (Porcine) (HEParin 5,000 UNIT VIAL) *calculation based on ACTUAL B... AD PRN IV HEPARIN PROTOCOL 08/13/25 16:30 09/12/25 16:29 08/17/25 04:46 3,175 UNIT Heparin Sodium/ Dextrose 250 ml @ 0 mls/hr Q6H IV 08/13/25 16:30 09/12/25 16:29 08/19/25 22:03 11.78 MLS/HR Insulin Glargine (LANtus 100 UNITS/ML 10 ML VIAL) 5 units BID@0730,2100 SQ 08/16/25 21:00 08/17/25 09:31 DC 08/16/25 21:21 5 UNITS Insulin Glargine (LANtus 100 UNITS/ML 10 ML VIAL) 10 units HS SQ 08/13/25 21:00 08/14/25 06:16 DC 08/13/25 20:21 10 UNITS Insulin Glargine (LANtus 100 UNITS/ML 10 ML VIAL) 20 units DAILY SQ 08/14/25 09:00 08/15/25 07:24 DC 08/14/25 08:01 20 UNITS Insulin Glargine (LANtus 100 UNITS/ML 10 ML VIAL) 30 units DAILY 08/15/25 09:00 08/16/25 07:19 DC 08/15/25 08:28 30 UNITS Insulin Glargine (LANtus 100 UNITS/ML 10 ML VIAL) 35 units DAILY SQ 08/16/25 09:00 08/19/25 07:35 DC 08/18/25 07:59 35 UNITS Insulin Glargine (LANtus 100 UNITS/ML 10 ML VIAL) 42 units DAILY SQ 08/19/25 09:00 08/20/25 06:22 DC 08/19/25 09:40 42 UNITS Insulin Glargine (LANtus 100 UNITS/ML 10 ML VIAL) 45 units DAILY SQ 08/20/25 09:00 09/19/25 08:59 Insulin Human Lispro (HumaLOG LISpro 100 UNIT/ML 3ML) INSULIN SLIDING SCAL... ACHS SQ 08/16/25 21:00 08/17/25 09:31 DC Insulin Human Regular (humuLIN R 100 UNIT/ML 3ML) 5 unit TIDAC SQ 08/14/25 17:00 08/15/25 07:24 DC 08/15/25 07:03 5 UNIT Insulin Human Regular (humuLIN R 100 UNIT/ML 3ML) 8 unit TIDAC SQ 08/15/25 07:30 08/15/25 22:46 DC 08/15/25 16:02 8 UNIT Insulin Human Regular (humuLIN R 100 UNIT/ML 3ML) 10 unit TIDAC SQ 08/16/25 07:30 08/17/25 21:12 DC 08/17/25 16:09 10 UNIT Insulin Human Regular (humuLIN R 100 UNIT/ML 3ML) 12 unit TIDAC SQ 08/18/25 07:30 08/18/25 20:19 DC 08/18/25 16:39 12 UNIT Insulin Human Regular (humuLIN R 100 UNIT/ML 3ML) 16 unit TIDAC SQ 08/19/25 07:30 08/20/25 06:22 DC 08/19/25 16:47 16 UNIT Insulin Human Regular (humuLIN R 100 UNIT/ML 3ML) 17 unit TIDAC SQ 08/20/25 07:30 09/19/25 07:29 Insulin Human Regular (humuLIN R 100 UNIT/ML 3ML) INSULIN SLIDING SCAL... ACHS SQ 08/17/25 16:30 09/16/25 16:29 08/19/25 21:31 8 UNIT Insulin Human Regular (humuLIN R 100 UNIT/ML 3ML) INSULIN SLIDING SCAL... ACHS SQ 08/13/25 16:30 08/16/25 20:46 DC 08/16/25 20:01 4 UNIT Lidocaine (Lidocaine Patch 4%) 1 each DAILY TP 08/19/25 09:00 09/18/25 08:59 08/19/25 07:51 1 EACH Magnesium Sulfate 50 ml @ 0 mls/hr PROTOCOL IV 08/13/25 16:30 09/12/25 16:29 08/20/25 08:30 25 MLS/HR Morphine Sulfate (morPHINE 2MG SYG) 2 mg Q6H PRN IVP SEVERE PAIN (7-10) 08/19/25 18:00 08/26/25 17:59 08/19/25 17:50 2 MG Morphine Sulfate (morPHINE 4MG SYG) 2 mg Q6H PRN IVP SEVERE PAIN (7-10) 08/14/25 09:30 08/19/25 12:29 DC 08/19/25 12:22 2 MG Multivitamins Therapeutic (Multivitamin Tablet) 1 tab DAILY PO 08/15/25 09:00 09/14/25 08:59 08/19/25 09:38 1 TAB Nitroglycerin/ Dextrose 250 ml @ 0 mls/hr PROTOCOL IV 08/20/25 03:30 09/19/25 03:29 08/20/25 03:12 1.5 MLS/HR Norepinephrine 250 ml @ 0 mls/hr PROTOCOL IV 08/13/25 15:30 08/20/25 08:31 DC Norepinephrine Bitartrate 250 ml @ 0 mls/hr AD PRN IV TITRATE 08/20/25 08:00 09/19/25 07:59 Norepinephrine Bitartrate 250 ml @ 0 mls/hr AD PRN IV TITRATE 08/20/25 09:00 08/20/25 09:03 DC Ondansetron HCl (zoFRAN 4MG INJ) 4 mg Q4H PRN IV NAUSEA 08/14/25 14:30 09/13/25 14:29 08/14/25 14:17 4 MG Ondansetron HCl (zoFRAN 4MG INJ) 4 mg Q6H PRN IVP NAUSEA/VOMITING 08/13/25 16:30 08/14/25 14:08 DC Pantoprazole Sodium (PROTonix 40MG INJ) 40 mg Q12H IVP 08/17/25 16:30 09/12/25 16:29 08/20/25 03:53 40 MG Pantoprazole Sodium (PROTonix 40MG INJ) 40 mg Q24H IVP 08/13/25 16:30 08/17/25 11:10 DC 08/16/25 16:07 40 MG Pharmacy Profile Note (Pharmacy Communication) 1 each PROTOCOL PRN MISC ETOH Withdrawal Score changes 08/14/25 14:30 08/14/25 14:08 DC Polyethylene Glycol (MIRalax 3350 17 GM POWD.PACK) 17 gm DAILY PO 08/15/25 09:00 09/14/25 08:59 08/19/25 09:38 17 GM Potassium Chloride 100 ml @ 100 mls/hr AD PRN IV POTASSIUM PROTOCOL 08/13/25 16:30 09/12/25 16:29 08/16/25 16:07 100 MLS/HR Potassium Chloride (K-Dur/Klor-Con 20meq) 20 meq AD PRN PO POTASSIUM PROTOCOL 08/13/25 16:30 09/12/25 16:29 08/15/25 08:23 20 MEQ Potassium Chloride (KCl 10% Elixir 20meq/15ml) 20 meq AD PRN PO POTASSIUM PROTOCOL 08/13/25 16:30 09/12/25 16:29 Promethazine HCl (Phenergan) 25 mg Q6H PRN PO NAUSEA 08/14/25 14:30 09/13/25 14:29 Sodium Bicarbonate 25 meq/Dextrose 1,000 ml @ 0 mls/hr Q0M IV 08/14/25 00:30 09/13/25 00:29 08/18/25 20:46 15.5 MLS/HR Sodium Bicarbonate 25 meq/Dextrose 1,000 ml @ 0 mls/hr Q0M IVP 08/14/25 00:30 08/14/25 00:15 DC Sodium Chloride 500 ml @ 500 mls/hr Q1H IV 08/20/25 00:33 08/20/25 03:16 DC 08/20/25 00:53 500 MLS/HR Thiamine HCl (Vitamin B-1) 300 mg DAILY IV 08/15/25 09:00 08/17/25 09:01 DC 08/17/25 07:46 300 MG Ticagrelor (BRILinta) 90 mg BID PO 08/14/25 09:00 08/14/25 21:19 DC 08/14/25 20:09 90 MG Vancomycin HCl 250 ml @ 125 mls/hr Q12H IV 08/18/25 09:00 08/19/25 20:54 DC 08/19/25 09:39 125 MLS/HR Vancomycin HCl 250 ml @ 125 mls/hr Q8H IV 08/19/25 21:30 08/29/25 21:29 08/20/25 05:10 125 MLS/HR Vancomycin HCl (Vancomycin Protocol) 1 each AD IV 08/17/25 22:00 08/31/25 21:59 DIAGNOSTICS / RADIOLOGY: [ ] ASSESSMENT: Cardiogenic shock with lactic acidosis, POA NSTEMI/ACS, POA Complete heart block, POA History of multivessel coronary artery disease, POA History of cocaine use disorder, POA Severe nonketotic hyperglycemia, POA History of to poorly controlled type 2 diabetes mellitus, POA Lactic acidosis, POA History of anemia, POA History of gastritis, POA History of hypertension, POA History of PTSD/anxiety, POA Obesity, POA Medical noncompliance, POA PLAN: Continue ceftriaxone Trend WBCs Follow-up blood cultures O2 nasal cannula as needed Follow up with Critical care, appreciate assistance Continue aspirin, atorvastatin, Brilinta Monitor blood pressure Follow up with CT surgery -tentative plans for aortocoronary bypass graft later this week Follow up with Cardiology Continue dopamine Continue Impella support Continue GI soft diet Continue GI prophylaxis with pantoprazole No need for IV fluids Trend a.m. BMP Replete electrolytes as necessary Hold heparin drip pending CABG DVT prophylaxis with SCDs only for now Trend a.m. CBC Follow up With endocrinology Continue insulin sliding scale Continue Lantus 20 units Daily Full code Case was discussed with patient's nurse at bedside Critical care Attention time greater than 30 minutes CHRISTIAN MACHUCA IV, MD Aug 20, 2025 11:00
--- NOTE | 2025-08-20 11:00 | NUR ---
CABG TODAY. Addendum: 08/20/25 at 1232 by WAQAS COATES PT Amended: Links added.
--- NOTE | 2025-08-20 11:16 | PN ---
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, Impella placement Complete heart block, status post transvenous temporary pacemaker placement Acute hypoxic respiratory failure, NSTEMI, POA Bactermia + Staph Cohni urealyticum DM type 2, with hyperglycemia, HGB A1c of 10.7 Cocaine abuse Tobacco use, current smoker History of CVA INTERVAL HISTORY: Patient was seen and examined, she is resting comfortably in bed, currently on nasal cannula at 2 L Impella is at P4 Neurovascularly intact Afebrile NPO for possible CABG this afternoon Patient reporting no chest pain or shortness of breath Plan: Follow CT surgeon recs, patient going for CABG today. We will follow postprocedure Neurovascular checks to extremities Telemetry Follow Cardiothoracic Surgical recommendations Antibiotics and cultures We will follow ABG, chest x-ray postprocedure. Critical care time 44 minutes, this time excludes any time spent on education or procedures. Patient requiring Impella support REVIEW OF SYSTEMS: 12 point ROS reviewed with patient. Pertinent positives mentioned above. Otherwise negative. PHYSICAL EXAM: GENERAL: alert, weak, awake oriented x 3 HEENT: EOMI, Sclera non icteric, moist mucosa NECK: Supple, no JVD, trachea midline LUNGS: Clear breath sounds bilaterally. No wheezes HEART: TVP Normal S1 and S2, without murmurs ABD: Abdomen soft, nontender. Bowel sounds present EXT: No clubbing cyanosis or edema NEURO: Alert and oriented to person, follows commands Vital Signs (last 8hr) Date Time Temp Pulse Resp B/P (MAP) Pulse Ox O2 Delivery O2 Flow Rate FiO2 08/20/25 10:45 89 15 125/74 (91) 97 08/20/25 10:30 90 19 115/72 (86) 96 08/20/25 10:15 103 19 121/84 (96) 95 08/20/25 10:00 91 19 119/57 (77) 94 08/20/25 09:45 90 15 123/69 (87) 97 08/20/25 09:30 90 16 122/69 (86) 98 08/20/25 09:15 91 16 117/74 (88) 97 08/20/25 09:00 92 17 123/74 (90) 97 08/20/25 08:45 92 21 116/76 (89) 97 08/20/25 08:30 91 17 121/76 (91) 96 08/20/25 08:15 94 21 132/72 (92) 95 08/20/25 08:00 98 Nasal Cannula* 1 24 08/20/25 08:00 99.0 08/20/25 08:00 93 20 119/67 (84) 97 08/20/25 07:45 95 16 116/74 (88) 96 08/20/25 07:30 96 14 121/62 (81) 96 08/20/25 07:15 94 16 121/63 (82) 97 08/20/25 07:00 92 14 116/66 (83) 97 08/20/25 06:45 92 21 114/63 (80) 95 08/20/25 06:30 92 20 125/95 (105) 96 08/20/25 06:15 94 15 129/79 (96) 96 08/20/25 06:00 92 17 115/62 (79) 94 08/20/25 05:45 90 19 116/67 (83) 97 08/20/25 05:30 94 21 125/69 (87) 96 08/20/25 05:15 96 15 121/61 (81) 97 08/20/25 05:00 92 17 126/66 (86) 96 08/20/25 04:55 93 16 125/69 (87) 96 08/20/25 04:50 92 18 117/61 (79) 96 08/20/25 04:45 93 19 121/68 (85) 95 08/20/25 04:40 91 18 118/66 (83) 95 08/20/25 04:30 92 20 121/66 (84) 95 08/20/25 04:15 94 15 119/58 (78) 95 08/20/25 04:00 93 16 117/67 (84) 95 08/20/25 03:49 () 08/20/25 03:45 93 16 120/61 (80) 96 08/20/25 03:44 () 08/20/25 03:40 94 16 122/64 (83) 94 08/20/25 03:39 () 08/20/25 03:35 94 17 119/71 (87) 94 08/20/25 03:34 () 08/20/25 03:30 93 14 122/67 (85) 93 08/20/25 03:29 08/20/25 03:25 93 19 119/68 (85) 94 08/20/25 03:24 08/20/25 03:20 94 20 121/70 (87) 95 08/20/25 03:19 08/20/25 03:15 93 18 121/66 (84) 96 08/20/25 03:14 LABS: Hematology Labs: Test 08/20/25 04:40 Range/Units White Blood Count 9.7 4.8-10.8 K/uL Red Blood Count 2.72 #L 4.00-5.50 MIL/uL Hemoglobin 8.3 L 12.0-16.0 g/dL Hematocrit 24.5 L 36-48 % Mean Corpuscular Volume 90.1 79-99 fL Mean Corpuscular Hemoglobin 30.5 27.0-33.0 pg Mean Corpuscular Hemoglobin Concent 33.9 32.0-36.0 g/dL Red Cell Distribution Width 13.5 11.0-15.5 % Platelet Count 127 L 130-400 K/uL Mean Platelet Volume 11.6 H 7.5-10.5 fL Nucleated Red Blood Cells 1.0 H 0.0-0.19 % Chemistry Labs: Test 08/20/25 11:09 08/20/25 04:40 Range/Units Whole Blood Glucose 183 H 70-110 MG/DL Sodium Level 141 136-145 mmol/L Potassium Level 4.0 3.5-5.1 mmol/L Chloride Level 107 101-111 mmol/L Carbon Dioxide Level 25 21-32 mmol/L Blood Urea Nitrogen 12 7-18 mg/dL Creatinine 0.4 L 0.5-1.0 mg/dL Glomerular Filtration Rate Calc 115 >90 mL/min Random Glucose 182 H 70-105 mg/dL Total Calcium 8.0 L 8.5-10.1 mg/dL Magnesium Level 1.70 L 1.80-2.40 mg/dL Total Bilirubin 0.5 # 0.2-1.0 mg/dL Aspartate Amino Transf (AST/SGOT) 27 10-37 U/L Alanine Aminotransferase (ALT/SGPT) 23 12-78 U/L Alkaline Phosphatase 102 # 50-136 U/L Total Protein 5.9 L 6.0-8.3 g/dL Albumin 2.3 L 3.5-5.0 g/dL Triglycerides Level 58 30-200 mg/dL Cholesterol Level 83 # <200 mg/dL LDL Cholesterol 31 0-99 mg/dL HDL Cholesterol 39 35-85 mg/dL Coagulation Labs: Test 08/20/25 04:40 Range/Units Prothrombin Time 10.8 9.6-11.6 SEC Prothromb Time International Ratio 1.02 0.85-1.15 Activated Partial Thromboplast Time 58.9 H 26.3-35.5 SEC DIAGNOSTICS / RADIOLOGY RESULTS: [ ] PLAN NEURO: Minimize central acting medications as possible. Fall Precautions. Well lighted room through the day and minimize interruptions through the night to prevent acute delirium. PULMONARY: Supplemental 02 as needed Titrate Fio2 to keep Spo2 > or = 90% DuoNebs and CPT as needed IS hourly while awake for pulmonary hygiene CARDIOVASCULAR: Follow hemodynamics. Titrate vasopressor to keep MAP >65 or systolic blood pressure >95mmHg DIPS: Dopamine weaned off Heparin gtt LINES: Peripheral IV CVP Impella GI & NUTRITION: Continue nutritional support Aspirations precautions Prokinetic agents and laxatives as needed Clear liquid diet as tolerated KIDNEYS & ELECTROLYTES: Strict monitoring of intake and output Daily weights Avoid nephrotoxic agents Monitor electrolytes and replace as needed Goal urine output of 30mL/hr or 0.5mL/kg/hr ENDOCRINE: Maintain blood glucose between 100-180 at all times. Insulin sliding scale for blood glucose management INFECTIOUS DISEASE: Trend temperature. Astudillo-culture if febrile. Micro: [ ] Urine culture - Ecoli Blood culture - Staph cohnii urealyticum Antibiotics: [ ] Rocephin Vancomycin HEMATOLOGY & COAGULATION: Monitor H&H. Keep Hgb > 7 Transfuse 1 unit of PRBC for Hgb < 7 Transfuse 1 pack of platelets of platelets < 20, 000 Watch for any signs and symptoms of bleeding SKIN: Pressure ulcer prevention per facility protocol Rehab: PT/OT Prophylaxis: GI: PPI DVT: SCDs patient on heparin drip Code Status: Full Resuscitation Disposition: ICU CHIRAG HURTADO PAC Aug 20, 2025 11:15
[2025-08-20] MEDS ORDERED: SODIUM BICARB 50MEQ 50ML VIAL 200 ML ONE (15:44)
[2025-08-20] MEDS ORDERED: PROTamine SULFate 10 MG/ML 25ML VIAL IV ONE (15:44)
[2025-08-20] MEDS ORDERED: LIDOCAINE PF 100MG/5ML (2%) SYRINGE 5ML ONE ×2 (15:44→17:34)
[2025-08-20] MEDS ORDERED: NOREPINEPHRINE BITARTRATE 1 MG/1 ML ML IV ONE (15:44)
[2025-08-20] MEDS ORDERED: MIDAZOLAM HCL 1 MG/ML 2ML VIAL ONE (15:45)
[2025-08-20] MEDS ORDERED: SODIUM BICARB 50 MEQ ONE (15:46)
--- NOTE | 2025-08-20 15:50 | NUR ---
PATIENT TAKEN TO OR WITH OR STAFF.
--- NOTE | 2025-08-20 15:54 | HMCIMG ---
EXAM: CR Chest, supine, single view. CLINICAL HISTORY: preop CABG COMPARISON: Prior chest radiograph dated August 19, 2025. FINDINGS: Rotated to left side. Temporary ventricular assist device is seen with a tip in the left ventricle. ECG lead and overlying tubings seen. Cardiomegaly seen . Bilateral hilar /T/ pulmonary vessels appear prominent - Likely due to bilateral pulmonary congestion. Subtle blunting of the left costophrenic angle probably minimal left pleural effusion. No evidence of pneumothorax. No acute osseous abnormality. IMPRESSION: 1. Temporary ventricular assist device in place with tip in left ventricle. 2. Cardiomegaly with bilateral pulmonary congestion, manifesting as prominent hilar and pulmonary vessels. 3. Probable minimal left pleural effusion, seen as subtle blunting of the left costophrenic angle. 4. ECG lead and overlying tubings noted. 5. No evidence of pneumothorax. 6. No acute osseous abnormality. /[place]
--- NOTE | 2025-08-20 15:55 | PN ---
Endocrinology progress note DOS: 08/20/25 subjective: on dopamine and heparin drip. cardiology following. pacemaker and impella placed. Home diabetic regimen: metformin 500 mg bid Hba1c 10.7% glucose runs greater than 180 mg/dl. REVIEW OF SYSTEMS CONSTITUTIONAL: generalized fatigue, malaise NEUROLOGICAL: Denies headache, amaurosis fugax, motor weakness, sensory deficit, vertigo/spinning sensation, gait abnormalities, or tremors. ENT: No hearing loss, otalgia, otorrhea, rhinitis, rhinorrhea, hoarseness, or sore throat. CARDIOVASCULAR: chest pain, Shortness of breath improving PULMONARY: Denies any shortness of breath, cough, phlegm/sputum, hemoptysis, pleuritic chest pain. SLEEP: Denies morning headaches, daytime somnolence or napping. Denies difficulty falling asleep, staying asleep, waking from sleep. Denies knowledge of snoring. GASTROINTESTINAL: Denies any type of dysphagia to either liquids or solids. Denies vomiting, pyrosis, early satiety, abdominal pain, diarrhea, constipation, or changes in stool consistency or caliber. Denies coffee-ground emesis, hematemesis, hematochezia, or melanotic stools. GENITOURINARY: Denies frequency, urgency, nocturia, hematuria or incontinence (Storage/Irritative symptoms.) Low urinary stream, straining to void, urinary intermittency or hesitancy, splitting of the voiding stream, terminal dribbling. ENDOCRINOLOGIC: Denies polyuria, polydipsia, polyphagia or heat/cold intolerances. HEMATOLOGIC: Denies thrombophilia/previous clots, or coagulopathy/bleeding disorders. ONCOLOGIC: Denies personal history of malignancy. DERMATOLOGIC: Denies rashes or pruritus. PSYCHIATRIC: Denies any suicidal or homicidal ideation. Denies hallucinations. PAST MEDICAL HISTORY: Coronary artery disease with history of abnormal coronary CT angiography, gastritis, anemia, cocaine use disorder, obesity, PTSD, anxiety disorder, history of NSTEMI in 04/2025, history of CVA in 2008 PAST SURGICAL HISTORY: History of ventral hernia repair 2008, hx of cholecystectomy, hx of C Section PAST SOCIAL HISTORY: Denies active alcohol consumption, intermittently smokes cigarettes as well as has been using cocaine chronically FAMILY HISTORY: Reports family history of heart disease Home medications: Patient does not have list of home medications, family will be bringing list of home medications to be updated Allergies: Patient has allergic reaction to lisinopril Coded Allergies: No Known Drug Allergies (Verified Allergy, Unknown, 05/04/22) lisinopril (Verified Allergy, Unknown, 05/04/22) DIAGNOSTICS / RADIOLOGY: SERVICE 24 REASON: cp ORDERING PHYSICIAN: ZORA OCHOA MD PROCEDURE: CXR1VW - CHEST 1VW EXAM: CR Chest, 1 View. CLINICAL HISTORY: cp COMPARISON: 07/08/25 FINDINGS: LUNGS: The lungs show no infiltrate or other acute finding. PLEURAL SPACES: No pleural effusion or pneumothorax. MEDIASTINUM: The cardiomediastinal silhouette is within normal limits. BONES: No aggressive appearing osseous lesion seen. IMPRESSION: No acute cardiopulmonary pathology is evident. /[place] DICTATED BY: BELKIS KURTZ MD DATE: 08/13/251731 ELECTRONICALLY SIGNED BY: BELKIS KURTZ MD DATE: 08/13/251731 ASSESSMENT: uncontrolled DM-2 Home diabetic regimen: metformin 500 mg bid Hba1c 10.7% glucose runs greater than 180 mg/dl but improving now. Cardiogenic shock with lactic acidosis, POA cardiology following for possible CABG procedure. NSTEMI/ACS, POA Complete heart block, POA History of multivessel coronary artery disease, POA History of cocaine use disorder, POA Severe nonketotic hyperglycemia, POA History of to poorly controlled type 2 diabetes mellitus, POA Lactic acidosis, POA History of anemia, POA History of gastritis, POA History of hypertension, POA History of PTSD/anxiety, POA Obesity, POA Medical noncompliance, POA PLAN: continue Lantus 42 units daily and adjust for fasting glucose. continue Regular insulin 17 units three times before meals and adjust for post- prandial glucose. Continue medium dose sliding scale insulin. Monitor glucose q x 6 hourly. Continue carb consistent diet. Keep glucose less than 180 mg/dl. Patient will need insulin at discharge. Vitals/Labs Vital Signs Date Time Temp Pulse Resp B/P (MAP) Pulse Ox O2 Delivery O2 Flow Rate FiO2 08/20/25 15:15 93 21 128/77 (94) 97 08/20/25 12:00 Nasal Cannula* 3 32 08/20/25 12:00 99.0 Laboratory Tests 08/19/25 17:00 08/20/25 04:40 Microbiology Date/Time Source Procedure Growth Status 08/19/25 23:00 Nasal Nasal Screen MRSA (PCR)([facility]) - Final Complete Medications Current Medications Ondansetron HCl 4 mg ONCE ONCE IVP; Start 08/13/25 at 14:30; Stop 08/13/25 at 14:52; Status DC Sodium Chloride 500 ml @ 0 mls/hr ONCE ONCE IV Last administered on 08/13/25at 15:00; Start 08/13/25 at 14:30; Stop 08/13/25 at 14:31; Status DC Heparin Sodium (Porcine) *calculation based on ACTUAL B... AD PRN IV Last administered on 08/17/25at 04:46; Start 08/13/25 at 16:30; Stop 09/12/25 at 16:29 Heparin Sodium/ Dextrose 250 ml @ 0 mls/hr Q6H IV Last administered on 08/19/25at 22:03; Start 08/13/25 at 16:30; Stop 09/12/25 at 16:29 Norepinephrine 250 ml @ 0 mls/hr PROTOCOL IV; Start 08/13/25 at 15:30; Stop 08/20/25 at 08:31; Status DC Dopamine HCl/ Dextrose 250 ml @ As Directed STK-MED ONCE IV; Start 08/13/25 at 15:33; Stop 08/13/25 at 15:33; Status DC Aspirin 325 mg STK-MED ONCE .ROUTE; Start 08/13/25 at 15:34; Stop 08/13/25 at 15:33; Status DC Ticagrelor 180 mg ONCE ONCE PO Last administered on 08/13/25at 16:16; Start 08/13/25 at 16:00; Stop 08/13/25 at 16:01; Status DC Morphine Sulfate 1 mg ONCE ONCE IVP Last administered on 08/13/25at 16:23; Start 08/13/25 at 16:00; Stop 08/13/25 at 16:01; Status DC Ticagrelor 90 mg STK-MED ONCE .ROUTE; Start 08/13/25 at 15:50; Stop 08/13/25 at 15:50; Status DC Dopamine HCl/ Dextrose 250 ml @ 0 mls/hr PROTOCOL IV Last administered on 08/16/25at 16:41; Start 08/13/25 at 16:00; Stop 09/12/25 at 15:59 Aspirin 325 mg ONCE ONCE PO Last administered on 08/13/25at 16:15; Start 08/13/25 at 16:00; Stop 08/13/25 at 16:01; Status DC Lidocaine HCl 20 ml STK-MED ONCE .ROUTE; Start 08/13/25 at 16:12; Stop 08/13/25 at 16:12; Status DC Iohexol 35,000 mg STK-MED ONCE IV; Start 08/13/25 at 16:12; Stop 08/13/25 at 16:12; Status DC Heparin Sodium (Porcine) 10,000 unit STK-MED ONCE .ROUTE; Start 08/13/25 at 16:12; Stop 08/13/25 at 16:12; Status DC Nicardipine HCl 25 mg STK-MED ONCE IV; Start 08/13/25 at 16:12; Stop 08/13/25 at 16:12; Status DC Heparin Sodium/ Sodium Chloride 1,000 ml @ As Directed STK-MED ONCE IV; Start 08/13/25 at 16:12; Stop 08/13/25 at 16:12; Status DC Nitroglycerin 50 mg STK-MED ONCE .ROUTE; Start 08/13/25 at 16:12; Stop 08/13/25 at 16:12; Status DC Pantoprazole Sodium 40 mg Q24H IVP Last administered on 08/16/25at 16:07; Start 08/13/25 at 16:30; Stop 08/17/25 at 11:10; Status DC Insulin Human Regular INSULIN SLIDING SCAL... ACHS SQ Last administered on 08/16/25at 20:01; Start 08/13/25 at 16:30; Stop 08/16/25 at 20:46; Status DC Insulin Human Regular 5 unit ONCE ONCE IV; Start 08/13/25 at 16:30; Stop 08/13/25 at 16:31; Status DC Fentanyl Citrate 100 mcg STK-MED ONCE .ROUTE; Start 08/13/25 at 16:26; Stop 08/13/25 at 16:26; Status DC Midazolam HCl 2 mg STK-MED ONCE .ROUTE; Start 08/13/25 at 16:27; Stop 08/13/25 at 16:27; Status DC Acetaminophen 650 mg Q6H PRN PO Last administered on 08/20/25at 01:28; Start 08/13/25 at 16:30; Stop 09/12/25 at 16:29 Ondansetron HCl 4 mg Q6H PRN IVP; Start 08/13/25 at 16:30; Stop 08/14/25 at 14:08; Status DC Potassium Chloride 100 ml @ 100 mls/hr AD PRN IV Last administered on 08/16/25at 16:07; Start 08/13/25 at 16:30; Stop 09/12/25 at 16:29 Potassium Chloride 20 meq AD PRN PO; Start 08/13/25 at 16:30; Stop 09/12/25 at 16:29 Potassium Chloride 20 meq AD PRN PO Last administered on 08/15/25at 08:23; Start 08/13/25 at 16:30; Stop 09/12/25 at 16:29 Magnesium Sulfate 50 ml @ 0 mls/hr PROTOCOL IV Last administered on 08/20/25at 08:30; Start 08/13/25 at 16:30; Stop 09/12/25 at 16:29 Atorvastatin Calcium 40 mg HS PO Last administered on 08/19/25at 21:22; Start 08/13/25 at 21:00; Stop 09/12/25 at 20:59 Heparin Sodium/ Sodium Chloride 500 ml @ As Directed STK-MED ONCE IV; Start 08/13/25 at 17:14; Stop 08/13/25 at 17:14; Status DC Heparin Sodium (Porcine) 10,000 unit STK-MED ONCE .ROUTE; Start 08/13/25 at 18:03; Stop 08/13/25 at 18:03; Status DC Aspirin 81 mg DAILY PO Last administered on 08/20/25at 08:21; Start 08/14/25 at 09:00; Stop 09/13/25 at 08:59 Insulin Glargine 10 units HS SQ Last administered on 08/13/25at 20:21; Start 08/13/25 at 21:00; Stop 08/14/25 at 06:16; Status DC Dextrose 50 ml AD PRN IV; Start 08/13/25 at 20:00; Stop 09/12/25 at 19:59 Glucagon 1 mg AD PRN IM; Start 08/13/25 at 20:00; Stop 09/12/25 at 19:59 Sodium Bicarbonate 25 meq/Dextrose 1,000 ml @ 0 mls/hr Q0M IVP; Start 08/14/25 at 00:30; Stop 08/14/25 at 00:15; Status DC Sodium Bicarbonate 25 meq/Dextrose 1,000 ml @ 0 mls/hr Q0M IV Last administered on 08/18/25at 20:46; Start 08/14/25 at 00:30; Stop 09/13/25 at 00:29 Glycerin 1 supp ONCE ONCE RC Last administered on 08/14/25at 05:56; Start 08/14/25 at 05:00; Stop 08/14/25 at 05:06; Status DC Insulin Glargine 20 units DAILY SQ Last administered on 08/14/25at 08:01; Start 08/14/25 at 09:00; Stop 08/15/25 at 07:24; Status DC Ticagrelor 90 mg BID PO Last administered on 08/14/25at 20:09; Start 08/14/25 at 09:00; Stop 08/14/25 at 21:19; Status DC Morphine Sulfate 2 mg Q6H PRN IVP Last administered on 08/19/25at 12:22; Start 08/14/25 at 09:30; Stop 08/19/25 at 12:29; Status DC Polyethylene Glycol 17 gm DAILY PO Last administered on 08/19/25at 09:38; Start 08/15/25 at 09:00; Stop 09/14/25 at 08:59 Docusate Sodium 100 mg BID PRN PO; Start 08/14/25 at 11:00; Stop 09/13/25 at 10:59 Ceftriaxone Sodium 2 gm Q24H IVPB Last administered on 08/20/25at 11:23; Start 08/14/25 at 11:30; Stop 08/24/25 at 11:29 Insulin Human Regular 5 unit TIDAC SQ Last administered on 08/15/25at 07:03; Start 08/14/25 at 17:00; Stop 08/15/25 at 07:24; Status DC Chlordiazepoxide HCl 25 mg Q2H PRN PO Last administered on 08/16/25at 23:38; Start 08/14/25 at 14:30; Stop 08/21/25 at 14:29 Chlordiazepoxide HCl 50 mg Q1H PRN PO; Start 08/14/25 at 14:30; Stop 08/21/25 at 14:29 Ondansetron HCl 4 mg Q4H PRN IV Last administered on 08/14/25at 14:17; Start 08/14/25 at 14:30; Stop 09/13/25 at 14:29 Promethazine HCl 25 mg Q6H PRN PO; Start 08/14/25 at 14:30; Stop 09/13/25 at 14:29 Acetaminophen 500 mg Q6H PRN PO Last administered on 08/20/25at 08:23; Start 08/14/25 at 14:30; Stop 09/13/25 at 14:29 Thiamine HCl 300 mg DAILY IV Last administered on 08/17/25at 07:46; Start 08/15/25 at 09:00; Stop 08/17/25 at 09:01; Status DC Folic Acid 1 mg DAILY PO Last administered on 08/17/25at 07:46; Start 08/15/25 at 09:00; Stop 08/17/25 at 09:01; Status DC Multivitamins Therapeutic 1 tab DAILY PO Last administered on 08/19/25at 09:38; Start 08/15/25 at 09:00; Stop 09/14/25 at 08:59 Pharmacy Profile Note 1 each PROTOCOL PRN MISC; Start 08/14/25 at 14:30; Stop 08/14/25 at 14:08; Status DC Insulin Glargine 30 units DAILY SQ Last administered on 08/15/25at 08:28; Start 08/15/25 at 09:00; Stop 08/16/25 at 07:19; Status DC Insulin Human Regular 8 unit TIDAC SQ Last administered on 08/15/25at 16:02; Start 08/15/25 at 07:30; Stop 08/15/25 at 22:46; Status DC Diphenhydramine HCl 25 mg ONCE ONCE IM; Start 08/15/25 at 21:00; Stop 08/15/25 at 22:52; Status DC Insulin Human Regular 10 unit TIDAC SQ Last administered on 08/17/25at 16:09; Start 08/16/25 at 07:30; Stop 08/17/25 at 21:12; Status DC Diphenhydramine HCl 25 mg ONCE PRN IV; Start 08/15/25 at 23:00; Stop 08/17/25 at 22:59; Status DC Insulin Glargine 35 units DAILY SQ Last administered on 08/18/25at 07:59; Start 08/16/25 at 09:00; Stop 08/19/25 at 07:35; Status DC Bisacodyl 10 mg DAILY RC Last administered on 08/18/25at 07:58; Start 08/17/25 at 09:00; Stop 08/20/25 at 08:59; Status DC Insulin Human Lispro INSULIN SLIDING SCAL... ACHS SQ; Start 08/16/25 at 21:00; Stop 08/17/25 at 09:31; Status DC Insulin Glargine 5 units BID@0730,2100 SQ Last administered on 08/16/25at 21:21; Start 08/16/25 at 21:00; Stop 08/17/25 at 09:31; Status DC Pantoprazole Sodium 40 mg Q12H IVP Last administered on 08/20/25at 03:53; Start 08/17/25 at 16:30; Stop 09/12/25 at 16:29 Insulin Human Regular INSULIN SLIDING SCAL... ACHS SQ Last administered on 08/19/25at 21:31; Start 08/17/25 at 16:30; Stop 09/16/25 at 16:29 Insulin Human Regular 12 unit TIDAC SQ Last administered on 08/18/25at 16:39; Start 08/18/25 at 07:30; Stop 08/18/25 at 20:19; Status DC Vancomycin HCl 1 each AD IV; Start 08/17/25 at 22:00; Stop 08/31/25 at 21:59 Vancomycin HCl 250 ml @ 83.333 mls/ hr ONCE ONCE IV Last administered on 08/17/25at 23:05; Start 08/17/25 at 22:30; Stop 08/18/25 at 01:29; Status DC Vancomycin HCl 250 ml @ 125 mls/hr Q12H IV Last administered on 08/19/25at 09:39; Start 08/18/25 at 09:00; Stop 08/19/25 at 20:54; Status DC Albumin Human 50 ml @ 0 mls/hr BID IV Last administered on 08/19/25at 21:22; Start 08/18/25 at 09:00; Stop 08/23/25 at 08:59 Lidocaine 1 each DAILY TP Last administered on 08/19/25at 07:51; Start 08/19/25 at 09:00; Stop 09/18/25 at 08:59 Lidocaine 1 each ONCE ONCE TP Last administered on 08/18/25at 13:52; Start 08/18/25 at 14:00; Stop 08/18/25 at 14:01; Status DC Diphenhydramine HCl 25 mg ONCE ONCE PO Last administered on 08/18/25at 15:19; Start 08/18/25 at 15:30; Stop 08/18/25 at 15:31; Status DC Insulin Human Regular 16 unit TIDAC SQ Last administered on 08/19/25at 16:47; Start 08/19/25 at 07:30; Stop 08/20/25 at 06:22; Status DC Insulin Glargine 42 units DAILY SQ Last administered on 08/19/25at 09:40; Start 08/19/25 at 09:00; Stop 08/20/25 at 06:22; Status DC Calcium Carbonate 500 tab QID PRN PO Last administered on 08/20/25at 05:10; Start 08/19/25 at 12:00; Stop 09/18/25 at 11:59 Morphine Sulfate 2 mg Q6H PRN IVP Last administered on 08/19/25at 17:50; Start 08/19/25 at 18:00; Stop 08/26/25 at 17:59 Cefazolin Sodium 2 gm ONCALL IVP; Start 08/19/25 at 19:30; Stop 08/21/25 at 19:29 Vancomycin HCl 250 ml @ 125 mls/hr Q8H IV Last administered on 08/20/25at 14:23; Start 08/19/25 at 21:30; Stop 08/29/25 at 21:29 Sodium Chloride 500 ml @ 500 mls/hr Q1H IV Last administered on 08/20/25at 00:53; Start 08/20/25 at 00:33; Stop 08/20/25 at 03:16; Status DC Nitroglycerin/ Dextrose 250 ml @ 0 mls/hr PROTOCOL IV Last administered on 08/20/25at 03:12; Start 08/20/25 at 03:30; Stop 09/19/25 at 03:29 Insulin Glargine 45 units DAILY SQ; Start 08/20/25 at 09:00; Stop 09/19/25 at 08:59 Insulin Human Regular 17 unit TIDAC SQ; Start 08/20/25 at 07:30; Stop 09/19/25 at 07:29 Epinephrine HCl 10 mg/Sodium Chloride 250 ml @ 0 mls/hr AD PRN IV; Start 08/20/25 at 08:00; Stop 09/19/25 at 07:59 Norepinephrine Bitartrate 250 ml @ 0 mls/hr AD PRN IV; Start 08/20/25 at 08:00; Stop 09/19/25 at 07:59 Aminocaproic Acid 08691 mg/Sodium Chloride 480 ml @ 0 mls/hr AD PRN IV; Start 08/20/25 at 08:00; Stop 09/19/25 at 07:59 Cefazolin Sodium 1 gm STK-MED ONCE .ROUTE; Start 08/20/25 at 08:23; Stop 08/20/25 at 08:23; Status DC Heparin Sodium/ Sodium Chloride 500 ml @ As Directed STK-MED ONCE IV; Start 08/20/25 at 08:23; Stop 08/20/25 at 08:24; Status DC Papaverine HCl 60 mg STK-MED ONCE .ROUTE; Start 08/20/25 at 08:23; Stop 08/20/25 at 08:24; Status DC Epinephrine HCl 10 mg/Sodium Chloride 250 ml @ 0 mls/hr AD PRN IV; Start 08/20/25 at 09:00; Stop 08/20/25 at 09:03; Status DC Norepinephrine Bitartrate 250 ml @ 0 mls/hr AD PRN IV; Start 08/20/25 at 09:00; Stop 08/20/25 at 09:03; Status DC Aminocaproic Acid 99873 mg/Sodium Chloride 480 ml @ 0 mls/hr AD PRN IV; Start 08/20/25 at 09:00; Stop 08/20/25 at 09:03; Status DC Protamine Sulfate 250 mg STK-MED ONCE IV; Start 08/20/25 at 15:44; Stop 08/20/25 at 15:44; Status DC Lidocaine HCl 100 mg STK-MED ONCE .ROUTE; Start 08/20/25 at 15:44; Stop 08/20/25 at 15:44; Status DC Heparin Sodium (Porcine) 10,000 unit STK-MED ONCE .ROUTE; Start 08/20/25 at 15:44; Stop 08/20/25 at 15:44; Status DC Epinephrine HCl 1 mg STK-MED ONCE .ROUTE; Start 08/20/25 at 15:44; Stop 08/20/25 at 15:44; Status DC Sodium Bicarbonate 200 ml @ As Directed STK-MED ONCE .ROUTE; Start 08/20/25 at 15:44; Stop 08/20/25 at 15:44; Status DC Norepinephrine Bitartrate 4 mg STK-MED ONCE IV; Start 08/20/25 at 15:44; Stop 08/20/25 at 15:44; Status DC Propofol 200 mg STK-MED ONCE IV; Start 08/20/25 at 15:45; Stop 08/20/25 at 15:44; Status DC Fentanyl Citrate 1,000 mcg STK-MED ONCE IJ; Start 08/20/25 at 15:45; Stop 08/20/25 at 15:45; Status DC Midazolam HCl 2 mg STK-MED ONCE .ROUTE; Start 08/20/25 at 15:45; Stop 08/20/25 at 15:45; Status DC Rocuronium [place] 50 mg STK-MED ONCE .ROUTE; Start 08/20/25 at 15:45; Stop 08/20/25 at 15:45; Status DC Sodium Bicarbonate 400 ml @ As Directed STK-MED ONCE .ROUTE; Start 08/20/25 at 15:46; Stop 08/20/25 at 15:46; Status DC CAROLYN BYRNE MD Aug 20, 2025 15:55
--- NOTE | 2025-08-20 16:08 | HMCSR ---
APPROVED REPORT EXAM: Two-dimensional and M-mode echocardiogram with Doppler and color Doppler. INDICATION ICD: Impella placement 2D Dimensions IVSd1.2 (0.7-1.1cm)LVEF(%)26.8 (>50%) LVDd4.9 (3.8-5.6cm)FS(%)12 % PWd0.9 (0.7-1.1cm)LA (2D)4.2 (1.6-4.0cm) IVSs1.4 cmAo Root(2D)3.2 (2.0-3.7cm) LVDs4.3 (2.5-4.0cm) PWs1.3 cm Left Ventricle Left ventricular cavity size is normal. Impella device measuring 1.8 cm from the aortic valve to the LVOT. Impella advanced at bedside. S/P advanced placement impella device measuring 4.4cm into LV. The re is boderline left ventricular wall thickness. Pericardium No pericardial effusion. Other Information Quality : Limited/Follow-up
[2025-08-20] MEDS: VANCOMYCIN 1G/250ML KIT 250 ML IV ONE (16:40)
[2025-08-20] MEDS ORDERED: AMIOdarone 150MG/100ML BAG 100 ML ONE (16:52)
[2025-08-20 16:59] LABS: ABG BASE EXCESS -3.1 mmol/L (-2.0-3.0); ABG HCO3 22.7 mmol/L (21.0-28.0); ABG OXYGEN SATURATION 98.7 % (94.0-98.0); ABG PCO2 44 mmHg (32-45); ABG PH 7.331 (7.350-7.450); CARBON MONOXIDE 0.1 % (0.5-1.5); DEVICE COMMENT 1; PO2, ARTERIAL BG 257.6 mmHg (83.0-108.0); TEMPERATURE, CELSIUS BG 37.0 CELSIUS (35.5-37.0)
[2025-08-20] MEDS ORDERED: 0.9%NACL 10ML VIAL IVP PRN (17:00)
[2025-08-20] MEDS ORDERED: GLUCAGON 1MG KIT 1 MG ML IM PRN (17:00)
[2025-08-20] MEDS ORDERED: NOREPINEPHRINE BITARTRATE 8 MG in DEXTROSE 5%-WATER 250 ML IV PRN (17:00)
[2025-08-20] MEDS ORDERED: DEXTROSE 50%-WATER 50 ML DISP.SYRIN IV PRN (17:00)
[2025-08-20] MEDS ORDERED: NITROGLYCERIN 50MG/D5W 250ML 250 BOT IV SCH (17:00)
[2025-08-20] MEDS ORDERED: 0.9% NACL 500ML IV.SOLN 500 ML IV SCH (17:00)
[2025-08-20] MEDS: PAPAVERINE HCL 30 MG/ML 2ML VIAL ONE (17:05)
[2025-08-20 17:56] LABS: ABG BASE EXCESS 0.2 mmol/L (-2.0-3.0); ABG HCO3 24.4 mmol/L (21.0-28.0); ABG OXYGEN SATURATION 98.9 % (94.0-98.0); ABG PCO2 37 mmHg (32-45); ABG PH 7.434 (7.350-7.450); CARBON MONOXIDE 0 % (0.5-1.5); DEVICE COMMENT 2; PO2, ARTERIAL BG 300.2 mmHg (83.0-108.0); TEMPERATURE, CELSIUS BG 37.0 CELSIUS (35.5-37.0)
[2025-08-20 18:37] LABS: ABG BASE EXCESS -3.7 mmol/L (-2.0-3.0); ABG HCO3 20.4 mmol/L (21.0-28.0); ABG OXYGEN SATURATION 99.0 % (94.0-98.0); ABG PCO2 33 mmHg (32-45); ABG PH 7.414 (7.350-7.450); CARBON MONOXIDE 0.1 % (0.5-1.5); DEVICE COMMENT 3; PO2, ARTERIAL BG 339.1 mmHg (83.0-108.0); TEMPERATURE, CELSIUS BG 37.0 CELSIUS (35.5-37.0)
[2025-08-20 19:34] LABS: ABG BASE EXCESS -1.1 mmol/L (-2.0-3.0); ABG HCO3 24.0 mmol/L (21.0-28.0); ABG OXYGEN SATURATION 98.9 % (94.0-98.0); ABG PCO2 42 mmHg (32-45); ABG PH 7.379 (7.350-7.450); CARBON MONOXIDE 0.3 % (0.5-1.5); DEVICE COMMENT 4; PO2, ARTERIAL BG 399.8 mmHg (83.0-108.0); TEMPERATURE, CELSIUS BG 37.0 CELSIUS (35.5-37.0)
--- NOTE | 2025-08-20 19:38 | HMCIMG ---
EXAM: US Duplex Bilateral Carotid and Vertebral Arteries CLINICAL HISTORY: Preoperative evaluation prior to CABG. TECHNIQUE: Real-time duplex sonographic evaluation of the bilateral carotid and vertebral arteries was performed using 2D jones-scale imaging, color Doppler, and spectral waveform analysis to assess arterial patency, flow velocities, and waveform morphology. COMPARISON: None provided.FINDINGS: RIGHT COMMON CAROTID ARTERY (CCA): Patent with normal laminar flow. Peak systolic velocity (PSV): 97 cm/s. No hemodynamically significant stenosis or plaque noted. RIGHT INTERNAL CAROTID ARTERY (ICA): Patent with normal waveform pattern. PSV: 125 cm/s. No evidence of focal narrowing or elevated velocity. ICA/CCA ratio: 1.04, consistent with <50% stenosis (per NASCET criteria). RIGHT EXTERNAL CAROTID ARTERY (ECA): PSV: 90 cm/s, normal. No abnormal flow pattern or focal narrowing. RIGHT VERTEBRAL ARTERY: Antegrade flow present with normal velocity (46 cm/s). No evidence of reversal or flow disturbance. LEFT COMMON CAROTID ARTERY (CCA): Patent with normal triphasic waveform. PSV: 82 cm/s, no focal stenosis. LEFT INTERNAL CAROTID ARTERY (ICA): Patent with smooth flow and no turbulence. PSV: 113 cm/s. ICA/CCA ratio: 1.04, consistent with <50% stenosis. LEFT EXTERNAL CAROTID ARTERY (ECA): PSV: 125 cm/s, no stenosis or abnormal flow pattern. LEFT VERTEBRAL ARTERY: Antegrade flow present with PSV 39 cm/s. No evidence of flow reversal. SOFT TISSUES: No neck mass, hematoma, or other soft-tissue abnormality.IMPRESSION: 1. No hemodynamically significant stenosis in bilateral carotid or vertebral arteries. 2. Bilateral internal carotid arteries demonstrate <50% stenosis based on ICA/CCA ratio of 1.04 bilaterally (per NASCET criteria). 3. Patent bilateral common carotid, internal carotid, external carotid, and vertebral arteries with normal flow patterns and velocities. 4. No neck mass, hematoma, or other soft-tissue abnormality identified. /[place]
[2025-08-20] MEDS ORDERED: MAGNESIUM SULFATE 4.06 MEQ/ML ***TPN USE ONLY IJ ONE (20:17)
--- NOTE | 2025-08-20 20:58 | EKG ---
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
[2025-08-20 21:02] LABS: ABG BASE EXCESS -5.2 mmol/L (-2.0-3.0); ABG HCO3 20.4 mmol/L (21.0-28.0); ABG OXYGEN SATURATION 97.4 % (94.0-98.0); ABG PCO2 40 mmHg (32-45); ABG PH 7.324 (7.350-7.450); CARBON MONOXIDE 0.2 % (0.5-1.5); DEVICE COMMENT ALINE RN JULIA; PO2, ARTERIAL BG 131.6 mmHg (83.0-108.0); TEMPERATURE, CELSIUS BG 37.0 CELSIUS (35.5-37.0); VENT MODE, BG SIMV PS10 (ROOM AIR)
[2025-08-20 21:12] LABS: NUCLEATED RED BLOOD CELLS 1.0 % (0.0-0.19); PLATELET COUNT (AUTO) 132.0 K/uL (130-400); RED BLOOD CELL COUNT(AUTO) 2.86 MIL/uL (4.00-5.50); RED CELL DISTRIBUTION WIDTH 14.5 % (11.0-15.5); WHITE BLOOD COUNT (AUTO) 22.1 K/uL (4.8-10.8)
[2025-08-20 21:22] LABS: INR 1.17 (0.85-1.15)
[2025-08-20 21:23] LABS: CREATININE 0.6 mg/dL (0.5-1.0); GLOMERULAR FILTR. RATE CALC 104.0 mL/min (>90); GLUCOSE,RANDOM 195.0 mg/dL (70-105); PHOSPHORUS 4.9 mg/dL (2.5-4.9); SODIUM SERUM 147.0 mmol/L (136-145); UREA NITROGEN, BLOOD 11.0 mg/dL (7-18)
[2025-08-20] MEDS: AMIODARONE 360MG/200ML BAG 200 ML IV SCH (21:24)
[2025-08-20] MEDS: SODIUM BICARB 50MEQ 50ML VIAL IV PRN (21:27)
[2025-08-20] MEDS: INSULIN REGULAR, HUMAN 3ML 100 UNIT in 0.9%NACL 100ML 99 ML IV SCH (21:31)
[2025-08-20 22:05] LABS: ABG BASE EXCESS 0.6 mmol/L (-2.0-3.0); ABG HCO3 24.7 mmol/L (21.0-28.0); ABG OXYGEN SATURATION 97.6 % (94.0-98.0); ABG PCO2 37 mmHg (32-45); ABG PH 7.437 (7.350-7.450); CARBON MONOXIDE 0.3 % (0.5-1.5); DEVICE COMMENT ALINE RN JULIA; PO2, ARTERIAL BG 132.8 mmHg (83.0-108.0); TEMPERATURE, CELSIUS BG 37.0 CELSIUS (35.5-37.0); VENT MODE, BG SIMV PS10 (ROOM AIR)
--- NOTE | 2025-08-20 22:18 | HMCIMG ---
EXAM: CR Chest, 1 view CLINICAL HISTORY: Status post CABG. COMPARISON: Chest radiograph dated 08/20/2025. FINDINGS: The endotracheal tube tip is 4.8 cm above the jerica. The gastric tube tip overlies the proximal to mid body of the stomach. The right transjugular [place] catheter tip overlies the right pulmonary artery. Status poststernotomy. Drainage tubes overlie the thorax. Mild cardiomegaly and perihilar vascular congestion. Small pleural effusion and lower zone airspace disease on the left side. No pneumothorax. No acute osseous abnormality. IMPRESSION: The endotracheal tube tip is 4.8 cm above the jerica. The gastric tube tip overlies the proximal to mid body of the stomach. The right transjugular [place] catheter tip overlies the right pulmonary artery. Status poststernotomy. Drainage tubes overlie the thorax. These are the new findings compared to the previous chest radiograph. Mild cardiomegaly and perihilar vascular congestion. Small pleural effusion and lower zone airspace disease on the left side. /[place]
[2025-08-20] MEDS: FAMOTIDINE 20MG VIAL IV SCH (22:26)
[2025-08-20] MEDS: 0.9%NACL 1000ML 1,000 ML IV SCH (22:31)
[2025-08-20] MEDS: ALBUMIN (HUMAN) 5% 250 ML IV PRN (22:46)
[2025-08-20 23:10] LABS: ABG BASE EXCESS -2.9 mmol/L (-2.0-3.0); ABG HCO3 20.3 mmol/L (21.0-28.0); ABG OXYGEN SATURATION 96.8 % (94.0-98.0); ABG PCO2 29 mmHg (32-45); ABG PH 7.461 (7.350-7.450); CARBON MONOXIDE 0.2 % (0.5-1.5); DEVICE COMMENT ALINE RN JULIA; PO2, ARTERIAL BG 102.0 mmHg (83.0-108.0); TEMPERATURE, CELSIUS BG 37.0 CELSIUS (35.5-37.0); VENT MODE, BG SIMV PS10 (ROOM AIR)
[2025-08-21] VITALS (159 sets, daily range): BP systolic 68–280; BP diastolic 38–279; PULSE 63–105; RESP 4–52; TEMP 97.6–98.4; O2SAT 97–100
[2025-08-21] MEDS ORDERED: LIDOCAINE 2G/250ML 250 ML IV SCH
[2025-08-21 00:16] LABS: ABG BASE EXCESS 0.3 mmol/L (-2.0-3.0); ABG HCO3 23.6 mmol/L (21.0-28.0); ABG OXYGEN SATURATION 96.1 % (94.0-98.0); ABG PCO2 33 mmHg (32-45); ABG PH 7.475 (7.350-7.450); CARBON MONOXIDE 0.7 % (0.5-1.5); DEVICE COMMENT ALINE RN JULIA; PO2, ARTERIAL BG 88.8 mmHg (83.0-108.0); TEMPERATURE, CELSIUS BG 37.0 CELSIUS (35.5-37.0); VENT MODE, BG SIMV PS10 (ROOM AIR)
--- NOTE | 2025-08-21 00:43 | OP ---
DATE OF PROCEDURE: 08/20/2025 PREOPERATIVE DIAGNOSIS: Multivessel coronary artery disease, status post ST-elevation myocardial infarction. POSTOPERATIVE DIAGNOSIS: Multivessel coronary artery disease, status post ST-elevation myocardial infarction. PROCEDURES PERFORMED: 1. An off-pump coronary bypass grafting x3 vessels (left internal mammary artery to LAD, reverse saphenous vein graft from the aorta to the second diagonal artery, reverse saphenous vein graft from the aorta to the first obtuse marginal). 2. Left atrial appendage ligation using a 40-mm AtriCure clip. The patient's CHADS score is greater than 2, and the clip was justified to reduce the need for postoperative anticoagulation. 3. Rigid sternal fixation with adjacent sternal plating system. OPERATING SURGEON: Yan Guthrie MD ASSISTANTS: MARIA TERESA Mock, and Lanre Perera MD ANESTHESIOLOGIST: Dr. Peters BRIEF HISTORY: The patient is a 60-year-old female with diabetes mellitus, hypertension, hyperlipidemia and cocaine abuse, who presented to the hospital with an ST-elevation IN. The patient was in shock and required a CP Impella left ventricular assist device. The patient was found to have 3-system coronary artery disease and she was referred for coronary bypass grafting. After the patient's Brilinta had worn off and the patient was able to recover from the acute myocardial infarction, she presents now for surgical revascularization with the CP Impella assist device. FINDINGS: The patient has had good-size left anterior descending artery, second diagonal and first obtuse marginal coronary artery. We could not find any vessel to bypass on the posterior wall (less than 1-mm PDA and no posterolaterals from the right side). The patient did have a left posterolateral coronary artery; however, this was 1 mm and not grafted. The patient did well with bypasses as she was well supported with the Impella device. Her heart appeared to recover quite well from the ST-elevation IN as she appeared to have normal function on intraoperative ZAKIA. There was no clot within the left atrial appendage and this was, therefore, ligated. DESCRIPTION OF PROCEDURE: The patient was brought to the operating room and placed on the operating room table in supine position. She was given general endotracheal anesthesia. After placing lines and catheters, her chest, abdomen and legs were prepped and draped in the usual sterile fashion. Her left thigh greater saphenous vein and right thigh greater saphenous vein were harvested endoscopically. Simultaneously, median sternotomy was performed and the left internal mammary artery was taken down. The patient was given total of 17,500 units of IV heparin. The left internal mammary was clamped with a bulldog proximally and divided distally. Pericardium was opened in the midline and the LAD was stabilized with an Acrobat epicardial retractor. A 5-0 Prolene snare was placed proximal to target site, which was opened longitudinally. The distal end of the left internal mammary artery was anastomosed to the side of the LAD over a 1-mm shunt using running 7-0 Prolene suture. The bulldog clamp and snares were released and the LAD was reperfused for the remainder of the procedure. The next target was the first obtuse marginal coronary artery. This received the distal end of a reverse saphenous vein graft. An end-to-side anastomosis was performed over a 1-mm shunt using running 7-0 Prolene suture and this vein graft was draped under left internal mammary artery and cut to appropriate length to reach the aorta. The final target was the second diagonal coronary artery. This received the distal end of the second segment of greater saphenous vein graft. An end-to-side anastomosis was performed over a 1-mm shunt using a running 7-0 Prolene suture and this vein graft was draped under left internal mammary artery and cut to appropriate length to reach the aorta. A partial occlusion clamp was placed on the ascending aorta and two 4.0-mm aortotomy holes were made and the proximal ends of the vein grafts were anastomosed to the side of the aorta using running 6-0 Prolene sutures. I then placed a 40-mm AtriCure clip on the base of the left atrial appendage. The patient was then given protamine. The mediastinal and left chest were drained with 24-Telugu Walker drain and secured to the skin with silk sutures. The pericardium was loosely approximated with the heart and grafts with several separate Ethibond sutures. The sternum was reapproximated with a combination of stainless steel wires and an adjacent plating system. The presternal fascia and subcutaneous tissues were closed with running layers of Vicryl suture and skin was closed using running subcuticular Monocryl stitch. The wounds were cleaned and dried and covered with bandages. The patient was undraped and taken to the ICU critical but stable with the Impella CP left ventricular assist device. TID: [id number] RECEIPT: [id number] cc: Bela Sanches DO(User), Oly Price,
[2025-08-21] MEDS: CALCIUM GLUC 1GM 1 GM in 0.9%NACL 50ML 50 ML IV PRN (00:53)
[2025-08-21 01:12] LABS: ABG BASE EXCESS -2.2 mmol/L (-2.0-3.0); ABG HCO3 21.2 mmol/L (21.0-28.0); ABG OXYGEN SATURATION 98.7 % (94.0-98.0); ABG PCO2 31 mmHg (32-45); ABG PH 7.459 (7.350-7.450); CARBON MONOXIDE 0.1 % (0.5-1.5); DEVICE COMMENT ALINE RN JULIA; PO2, ARTERIAL BG 395.3 mmHg (83.0-108.0); TEMPERATURE, CELSIUS BG 37.0 CELSIUS (35.5-37.0); VENT MODE, BG SIMV PS10 (ROOM AIR)
[2025-08-21] MEDS: ALBUMIN (HUMAN) 5% 250 ML IV ONE (02:02)
[2025-08-21 02:21] LABS: ABG BASE EXCESS 0.8 mmol/L (-2.0-3.0); ABG HCO3 23.5 mmol/L (21.0-28.0); ABG OXYGEN SATURATION 96.2 % (94.0-98.0); ABG PCO2 30 mmHg (32-45); ABG PH 7.514 (7.350-7.450); CARBON MONOXIDE 0.1 % (0.5-1.5); DEVICE COMMENT ALINE RN JULIA; PO2, ARTERIAL BG 89.1 mmHg (83.0-108.0); TEMPERATURE, CELSIUS BG 37.0 CELSIUS (35.5-37.0); VENT MODE, BG SIMV PS10 (ROOM AIR)
[2025-08-21 03:21] LABS: ABG BASE EXCESS 1.1 mmol/L (-2.0-3.0); ABG HCO3 24.2 mmol/L (21.0-28.0); ABG OXYGEN SATURATION 96.8 % (94.0-98.0); ABG PCO2 32 mmHg (32-45); ABG PH 7.498 (7.350-7.450); CARBON MONOXIDE 0.7 % (0.5-1.5); DEVICE COMMENT ALINE RN JULIA; PO2, ARTERIAL BG 98.6 mmHg (83.0-108.0); TEMPERATURE, CELSIUS BG 37.0 CELSIUS (35.5-37.0); VENT MODE, BG SIMV PS10 (ROOM AIR)
[2025-08-21 04:00] LABS: NUCLEATED RED BLOOD CELLS 4.7 % (0.0-0.19); PLATELET COUNT (AUTO) 120.0 K/uL (130-400); RED BLOOD CELL COUNT(AUTO) 2.48 MIL/uL (4.00-5.50); RED CELL DISTRIBUTION WIDTH 15.8 % (11.0-15.5); WHITE BLOOD COUNT (AUTO) 14.3 K/uL (4.8-10.8)
[2025-08-21 04:19] LABS: ASPARTATE AMINOTRANSFERASE 59.0 U/L (10-37); CREATININE 0.7 mg/dL (0.5-1.0); GLOMERULAR FILTR. RATE CALC 100.0 mL/min (>90); GLUCOSE,RANDOM 225.0 mg/dL (70-105); SODIUM SERUM 150.0 mmol/L (136-145); TOTAL PROTEIN, SERUM 5.1 g/dL (6.0-8.3); UREA NITROGEN, BLOOD 13.0 mg/dL (7-18)
[2025-08-21 04:23] LABS: ABG BASE EXCESS 2.8 mmol/L (-2.0-3.0); ABG HCO3 25.5 mmol/L (21.0-28.0); ABG OXYGEN SATURATION 96.8 % (94.0-98.0); ABG PCO2 31 mmHg (32-45); ABG PH 7.529 (7.350-7.450); CARBON MONOXIDE 0.7 % (0.5-1.5); DEVICE COMMENT ALINE RN JULIA; PO2, ARTERIAL BG 94.0 mmHg (83.0-108.0); TEMPERATURE, CELSIUS BG 37.0 CELSIUS (35.5-37.0); VENT MODE, BG SIMV PS10 (ROOM AIR)
[2025-08-21 04:40] LABS: INR 1.2 (0.85-1.15)
[2025-08-21 05:14] LABS: ABG BASE EXCESS 2.9 mmol/L (-2.0-3.0); ABG HCO3 25.6 mmol/L (21.0-28.0); ABG OXYGEN SATURATION 96.8 % (94.0-98.0); ABG PCO2 31 mmHg (32-45); ABG PH 7.529 (7.350-7.450); CARBON MONOXIDE 0.5 % (0.5-1.5); DEVICE COMMENT ALINE RN JULIA; PO2, ARTERIAL BG 98.3 mmHg (83.0-108.0); TEMPERATURE, CELSIUS BG 37.0 CELSIUS (35.5-37.0); VENT MODE, BG SIMV PS10 (ROOM AIR)
[2025-08-21] MEDS: NOREPINEPHRIN 8MG/250ML NS 250 ML IV PRN (06:40)
--- NOTE | 2025-08-21 06:44 | NUR ---
SUMMARY NOTE- REPORT CALLED FROM OR TO CHARGE NURSE ROSHAN. CABG X3 - BY DR. SULTANA, NO COMPLICATIONS DURING SURGERY, CHEST MIDLINE INCISION AND GRAFTS FROM LEFT LEG, ON EPI DRIP, AMICAR AND LEVOPHED. VENT SETTINGS SIMV TV 650, FIO2 60%, RESP 12, AND PEEP5. CONT WITH IMPELLA THAT WAS PLACED ON THE 08-13-2025 @102 CM- CONT WITH P7 PER MD. NO PACING WIRES, TRANSVENOUS PACER CONT TO BE IN PLACE. SWAN 47 CM. CHEST TUBES X2 MID [place] [address] PM- VITALS STABLE SEE VITAL CHART, ON EPI 0.01 MCG, LEVOPHED 11MCG, AMICAR, LIDOCAINE 2MCG AND AMIO DRIP 1 MG DUE TO AN EPISODE OF [place] BEFORE TRANSFER. PER DR. BLACKWOOD KEEP INTUBATED ALL NIGHT TILL MORNING DR. KAYE WAS VERIFIED NEW ORDER TO START PRECEDEX FOR LIGHT SEDATION AND EVALUATE IN A.M. FOR EXTUBATION. CONT ABT ANCEF AND VANCO, FAUSTO, RIGHT IJ AND LEFT UPPER PICCLINE, IMPELLA TO RIGHT FEMORAL, WITH TRANVENOUS PACER WIRES CONNECTED BUT NOT ON PACER IS SET TO 40. RIGHT LEG NOTED COOL, NORMAL COLOR NO PULSES ABSENT BY DOPPLER ONLY POPLITEAL FAINT NOTED WITH DOPPLER. MD IS AWARE. B/P SOFT ALBUMIN WS GIVEN X2 5%/ 250ML WELL TOLERATED. ABG X1 HR, STARTED INSULIN DRIP PER PROTOCOL. REPLACED ELECTROLYTE NEEDED. ON ARRIVAL PUPILS 3 AND BRISK, AROUSED TO PAIN, FOLLOW SIMPLE COMMANDS. INTUBATED. NO PAIN NOTED. COMMUNICATED WITH DR. SULTANA AND UPDATED STATUS. DRIPS TITRATED SEE MARS/ EMAR. NO ARRHYTHMIAS LAST NIGHT. B/P SOFT TITRATED NEEDED. WEAN VENTILATOR PER PROTOCOL TOLERATED WELL . ALERT AND FOLLOW COMMANDS 0700- PT ALERT AWAKE, REQUESTING TUBE TO BE REMOVED, PT LOWEST SETTINGS ON THE VENT FIO2 40% RESP 4, TV 650 PEEP 5, NIF25 AND POSITIVE LEAK TEST. RT AT BEDSIDE . MD AWARE OF PASSED TEST. PENDING ABG TO EXTUBATE REPORT GIVEN TO LAURI
[2025-08-21 07:23] LABS: ABG BASE EXCESS 3.8 mmol/L (-2.0-3.0); ABG HCO3 26.9 mmol/L (21.0-28.0); ABG OXYGEN SATURATION 95.8 % (94.0-98.0); ABG PCO2 35 mmHg (32-45); ABG PH 7.510 (7.350-7.450); CARBON MONOXIDE 0.3 % (0.5-1.5); DEVICE COMMENT ALINE SYLVIA; PO2, ARTERIAL BG 84.6 mmHg (83.0-108.0); TEMPERATURE, CELSIUS BG 37.0 CELSIUS (35.5-37.0); VENT MODE, BG SIMV PS 10 (ROOM AIR)
--- NOTE | 2025-08-21 07:52 | PN ---
[facility] PROGRESS NOTE Date Patient Seen: Aug 21, 2025 Time of Visit: 07:51 Problem List: NSTEMI s/p 3V CABG (BRO-LAD, VG-D2, VG-OM) ICMP CARDIOGENIC SHOCK COCAINE USE Interval History: Seen in ICU VT post operatively, on amiodarone and lidocaine infusions Vasopressor support with levophed, epinephrine Impella to R [place] at P-[address], on standby Physical Examination: GENERAL: [well appearing, calm, no distress HEAD: [Normal with no signs of head trauma.] EYES: [PERRLA, EOMI, conjunctiva and sclera normal.] ENT: [Hearing grossly intact.] LUNGS: [Clear breath sounds bilaterally. on 2L O2 via N. no tachypnea. no distress.. No wheezes, or rhonchi.] HEART: [NSR. Normal S1 and S2 without murmurs, gallop or rub.] VASC: [Peripheral pulses +2 bilaterally radial. doppler R DP. distal extremities are warm] ABD: [soft, nontender.] EXT: [No clubbing, cyanosis or edema. Right POLE RIVER Impella CP and TVPM insertion site no ecchymoses or bleeding. SKIN: [No rashes or lesions noted. warm, dry NEURO: [no abnormal posturing Laboratory: [ ] Hematology Labs: Test 08/21/25 03:34 Range/Units White Blood Count 14.3 #H 4.8-10.8 K/uL Red Blood Count 2.48 L 4.00-5.50 MIL/uL Hemoglobin 7.4 L 12.0-16.0 g/dL Hematocrit 21.8 L 36-48 % Mean Corpuscular Volume 87.9 79-99 fL Mean Corpuscular Hemoglobin 29.8 27.0-33.0 pg Mean Corpuscular Hemoglobin Concent 33.9 32.0-36.0 g/dL Red Cell Distribution Width 15.8 H 11.0-15.5 % Platelet Count 120 L 130-400 K/uL Mean Platelet Volume 11.7 H 7.5-10.5 fL Nucleated Red Blood Cells 4.7 H 0.0-0.19 % Chemistry Labs: Test 08/21/25 06:22 08/21/25 03:34 08/20/25 21:09 08/20/25 04:40 Range/Units Whole Blood Glucose 186 H 70-110 MG/DL Sodium Level 150 H 136-145 mmol/L Potassium Level 3.9 3.5-5.1 mmol/L Chloride Level 113 H 101-111 mmol/L Carbon Dioxide Level 26 21-32 mmol/L Blood Urea Nitrogen 13 7-18 mg/dL Creatinine 0.7 0.5-1.0 mg/dL Glomerular Filtration Rate Calc 100 >90 mL/min Random Glucose 225 H 70-105 mg/dL Total Calcium 8.9 8.5-10.1 mg/dL Ionized Calcium 1.18 1.15-1.33 MMOL/L Magnesium Level 1.90 1.80-2.40 mg/dL Total Bilirubin 0.5 0.2-1.0 mg/dL Aspartate Amino Transf (AST/SGOT) 59 H 10-37 U/L Alanine Aminotransferase (ALT/SGPT) 22 12-78 U/L Alkaline Phosphatase 66 # 50-136 U/L B-Type Natriuretic Peptide 359 H 0-100 pg/mL Total Protein 5.1 L 6.0-8.3 g/dL Albumin 2.5 L 3.5-5.0 g/dL Phosphorus Level 4.9 2.5-4.9 mg/dL Triglycerides Level 58 30-200 mg/dL Cholesterol Level 83 # <200 mg/dL LDL Cholesterol 31 0-99 mg/dL HDL Cholesterol 39 35-85 mg/dL Coagulation Labs: Test 08/21/25 03:34 Range/Units Prothrombin Time 12.5 H 9.6-11.6 SEC Prothromb Time International Ratio 1.20 H 0.85-1.15 Activated Partial Thromboplast Time 30.8 # 26.3-35.5 SEC Fibrinogen 424 H 180-350 mg/dL Impression and Plan: 1. Non ST-elevation [place] complicated by cardiogenic shock and complete heart block status post Impella placement in the R PO[place] and TVPM to R CFV 2. CAD with total occlusion of the right coronary artery unable to cross with a wire , of note the patient had a 30-40% RCA stenosis in April of this year rais ing possibility of spasm and or plaque rupture. LV ejection fraction of 50% with hypokinesis of the infero base by echo this admission. Previously known severe disease of pLAD and pLCx. s/p 3V CABG (BRO-LAD, VG-D2, VG-OM with RUPALI- ligation 40 mm Atricure clip 08/20) 3. Cocaine abuse , tox screen positive for cocaine and benzodiazepines 4. Diabetes mellitus type 2 uncontrolled 5. Tobacco dependence 6. Remote CVA 2008 7. Noncompliance history, the patient has been seen in the hospital but has not followed up in the office. 8. Dyslipidemia 9. Urinary tract infection 10. Bacteremia one of two sets possibly contamination 11. Thrombocytopenia Continue with routine post op CTS CABG care RN to change dressing for Impella/TVPM today Continue with ASA Continue with Impella support CHANDRIKA ELAINE DO Aug 21, 2025 07:52
[2025-08-21] MEDS ORDERED: VANCOMYCIN 1G/250ML KIT 250 ML IV SCH (08:00)
[2025-08-21] MEDS: VANCOMYCIN 1G/250ML KIT 250 ML IV SCH ×2 (08:15→16:38)
--- NOTE | 2025-08-21 10:15 | NUR ---
[facility] ICU Skin Assessment: Patient assessed by wound healing team. S/P sx, unable to assess at this time. Per primary nurse no reported wounds or skin breakdown noted. Recommendations provided to primary nurse. Education provided. Addendum: 08/21/25 at 1129 by LINH MADISON RN RN/ Amended: Links added.
--- NOTE | 2025-08-21 11:48 | PN ---
[facility] PROGRESS NOTE Date of Service: Aug 21, 2025 Time of Service: 11:44 SUBJECTIVE: This is a 60-year-old female with underlying history of obesity, coronary artery disease, poorly controlled type 2 diabetes mellitus, history of anemia, history of cocaine use, tobacco use disorder, history of CVA in 2008, who presented to the ER for further evaluation of severe substernal chest pain and shortness of breadth. Patient reports having history of cocaine use with last use of cocaine yesterday. She reports having severe substernal chest pain that started today in it has been associated with dizziness, and generalized malaise. Pain is 10/1 0 in severity. Patient denies any syncope or fall. She has been having lightheadedness with ambulation. She has not been able to follow up with Cardiology as outpatient. She has a previous history of abnormal CT coronary angiography when she was hospitalized in 04/2025 and she was treated medically. With regards to type 2 diabetes mellitus, she reports being on metformin as ou tpatient. On presentation to the hospital, patient was noted to be hypotensive with blood pressure of 80/60 with heart rate of 40 with EKG showing complete heart block. [place] [address], hemoglobin 12.4, platelet count of [id number]. BMP showed sodium of 133, potassium 4.8, chloride of 99, BUN of 21, creatinine 1.0, blood glucose of 403, [place] [address]. Chest x-ray showed no acute infiltrates. Patient will be admitted for further management of cardiogenic shock, NSTEMI, complete heart block with history of poorly controlled type 2 diabetes mellitus. Patient will be emergently taken to the [facility] for cardiac catheterization/ PCI and tentative plan for MCS support. Patient will be admitted to intensive care unit and she remains critically ill. 08/14 patient remains critically ill requiring Impella and dopamine support. UDS has demonstrated benzos and cocaine 08/15 patient remains on Impella 08/16 patient appears to be resting comfortably in bed. She remains on Impella and dopamine support. She reports she would like to be bathed and wants her hair combed significant and she is feeling better 08/17 patient is on GI soft diet tolerating well. She remains on Impella support 08/18 patient is resting comfortably in bed. She remains on Impella. Tolerating oral intake. 08/19 hemoglobin dropped to 6.5 from 7.0-7.5 yesterday. I agree with transfusing 1 unit PRBC. Patient remains on Impella. Patient is resting comfortably in bed. 08/20 patient is resting comfortably in bed. She remains on Impella support pending recovery for CABG. 08/21 patient underwent CABG x3 yesterday, no complications reported patient remains on Impella the patient is on norepinephrine, amiodarone, dopamine, insulin drip REVIEW OF SYSTEMS CONSTITUTIONAL: generalized fatigue, malaise NEUROLOGICAL: Denies headache, amaurosis fugax, motor weakness, sensory deficit, vertigo/spinning sensation, gait abnormalities, or tremors. ENT: No hearing loss, otalgia, otorrhea, rhinitis, rhinorrhea, hoarseness, or sore throat. CARDIOVASCULAR: chest pain, Shortness of breath, dizziness, lightheadedness PULMONARY: Denies any shortness of breath, cough, phlegm/sputum, hemoptysis, pleuritic chest pain. SLEEP: Denies morning headaches, daytime somnolence or napping. Denies difficulty falling asleep, staying asleep, waking from sleep. Denies knowledge of snoring. GASTROINTESTINAL: Reports having nausea, Denies any type of dysphagia to either liquids or solids. Denies vomiting, pyrosis, early satiety, abdominal pain, diarrhea, constipation, or changes in stool consistency or caliber. Denies coffee-ground emesis, hematemesis, hematochezia, or melanotic stools. GENITOURINARY: Denies frequency, urgency, nocturia, hematuria or incontinence (Storage/Irritative symptoms.) Low urinary stream, straining to void, urinary intermittency or hesitancy, splitting of the voiding stream, terminal dribbling. ENDOCRINOLOGIC: Denies polyuria, polydipsia, polyphagia or heat/cold intolerances. HEMATOLOGIC: Denies thrombophilia/previous clots, or coagulopathy/bleeding disorders. ONCOLOGIC: Denies personal history of malignancy. DERMATOLOGIC: Denies rashes or pruritus. PSYCHIATRIC: Denies any suicidal or homicidal ideation. Denies hallucinations. PHYSICAL EXAM GENERAL APPEARANCE: The patient is awake, appears ill and in mild distress NEUROLOGICAL: Cranial nerves II-XII grossly intact. Motor is 5/5 in bilateral upper and lower extremities proximal to distal. No sensory deficits. HEENT: Face is symmetric. Pupils are equal and reactive. Extraocular movements are intact. NECK: Supple. No JVD. No thyromegaly. No submental, submandibular, pre- /postauricular, occipital or supraclavicular lymphadenopathy. CHEST: Normal chest expansion. No Telemetry. LUNGS: minimal crackles noted of the bilateral lung bases CARDIOVASCULAR: Regular. S1 and S2 normal. No appreciable rubs, murmurs or gallops. ABDOMEN: Soft, nontender, and nondistended. There is no rebound, voluntary guarding, or rigidity. : Deferred. No Coombs. EXTREMITIES: trace edema noted of the bilateral lower extremities SKIN: No skin breakdown. Vital Signs (last 8hr) Date Time Temp Pulse Resp B/P (MAP) Pulse Ox O2 Delivery O2 Flow Rate FiO2 08/21/25 08:53 80 20 Aerosol, Face Mask 10.0 40 08/21/25 08:50 80 20 10.0 40 08/21/25 08:00 100 Ventilator+ 40 08/21/25 07:34 79 40 08/21/25 07:01 81 40 08/21/25 06:40 81/55 08/21/25 06:15 81 96 72/48 (56) 08/21/25 06:13 81 80/46 (57) 95 68/43 (51) 08/21/25 06:10 105 170/97 (121) 96 182/75 (110) 08/21/25 06:00 79 94/69 (77) 100 97/59 (72) 08/21/25 05:54 79 5 94/69 (77) 99 96/59 (71) 08/21/25 05:45 79 4 99 105/63 (77) 08/21/25 05:39 80 96/61 (73) 100 89/56 (67) 08/21/25 05:30 80 99 95/58 (70) 08/21/25 05:24 81 98/70 (79) 99 93/58 (70) 08/21/25 05:15 85 18 98 109/59 (76) 08/21/25 05:09 80 12 105/72 (83) 99 100/64 (76) 08/21/25 05:00 80 9 98/74 (82) 99 95/61 (72) 08/21/25 04:54 81 98/74 (82) 100 104/65 (78) 08/21/25 04:45 79 100 98/62 (74) 08/21/25 04:39 80 93/64 (74) 100 93/60 (71) 08/21/25 04:30 80 100 92/59 (70) 08/21/25 04:24 80 95/68 (77) 100 96/61 (73) 08/21/25 04:15 80 100 99/62 (74) 08/21/25 04:09 80 90/65 (73) 100 91/58 (69) 08/21/25 04:00 81 95/65 (75) 100 101/63 (76) 08/21/25 04:00 100 Ventilator+ 40 LABS: Laboratory: Test 08/21/25 10:16 08/21/25 07:20 08/21/25 03:34 08/20/25 21:09 Range/Units Whole Blood Glucose 158 H 70-110 MG/DL Blood Gas Specimen Type Arterial Arterial Blood pH 7.510 H 7.350-7.450 Arterial Blood Partial Pressure CO2 35 32-45 mmHg Arterial Blood Partial Pressure O2 84.6 83.0-108.0 mmHg Arterial Blood HCO3 26.9 21.0-28.0 mmol/L Arterial Blood Oxygen Saturation 95.8 94.0-98.0 % Arterial Blood Base Excess 3.8 H -2.0-3.0 mmol/L Hemoglobin (Blood Gas) 8.1 L 12.0-16.0 g/dL Sodium (Blood Gas) 143 136-145 MMOL/L Bedside Potassium (Blood Gas) 4.3 3.4-4.5 MMOL/L Bedside Chloride (Blood Gas) 110 H 98-107 MMOL/L Bedside Glucose (Blood Gas) 225 H 65-95 MG/DL Bedside Ionized Calcium (Blood Gas) 1.21 1.15-1.33 MMOL/L Bedside Lactic Acid (Blood Gas) 2.89 H 0.36-0.75 MMOL/L Blood Gas Temperature 37.0 35.5-37.0 CELSIUS Blood Gas Respiration Rate 4.0 min. Blood Gas Vent Mode SIMV PS 10 ROOM AIR FiO2 40.0 % Blood Gas Tidal Volume 650 ml Blood Gas PEEP 5 cm H2O Blood Gas Specimen Comment FAUSTO LAURI White Blood Count 14.3 #H 4.8-10.8 K/uL Red Blood Count 2.48 L 4.00-5.50 MIL/uL Hemoglobin 7.4 L 12.0-16.0 g/dL Hematocrit 21.8 L 36-48 % Mean Corpuscular Volume 87.9 79-99 fL Mean Corpuscular Hemoglobin 29.8 27.0-33.0 pg Mean Corpuscular Hemoglobin Concent 33.9 32.0-36.0 g/dL Red Cell Distribution Width 15.8 H 11.0-15.5 % Platelet Count 120 L 130-400 K/uL Mean Platelet Volume 11.7 H 7.5-10.5 fL Nucleated Red Blood Cells 4.7 H 0.0-0.19 % Prothrombin Time 12.5 H 9.6-11.6 SEC Prothromb Time International Ratio 1.20 H 0.85-1.15 Activated Partial Thromboplast Time 30.8 # 26.3-35.5 SEC Fibrinogen 424 H 180-350 mg/dL Sodium Level 150 H 136-145 mmol/L Potassium Level 3.9 3.5-5.1 mmol/L Chloride Level 113 H 101-111 mmol/L Carbon Dioxide Level 26 21-32 mmol/L Blood Urea Nitrogen 13 7-18 mg/dL Creatinine 0.7 0.5-1.0 mg/dL Glomerular Filtration Rate Calc 100 >90 mL/min Random Glucose 225 H 70-105 mg/dL Total Calcium 8.9 8.5-10.1 mg/dL Ionized Calcium 1.18 1.15-1.33 MMOL/L Magnesium Level 1.90 1.80-2.40 mg/dL Total Bilirubin 0.5 0.2-1.0 mg/dL Aspartate Amino Transf (AST/SGOT) 59 H 10-37 U/L Alanine Aminotransferase (ALT/SGPT) 22 12-78 U/L Alkaline Phosphatase 66 # 50-136 U/L B-Type Natriuretic Peptide 359 H 0-100 pg/mL Total Protein 5.1 L 6.0-8.3 g/dL Albumin 2.5 L 3.5-5.0 g/dL Phosphorus Level 4.9 2.5-4.9 mg/dL Test 08/20/25 04:40 08/19/25 19:39 Range/Units Triglycerides Level 58 30-200 mg/dL Cholesterol Level 83 # <200 mg/dL LDL Cholesterol 31 0-99 mg/dL HDL Cholesterol 39 35-85 mg/dL Vancomycin Level Trough 7.0 L 10.0-20.0 UG/ML Current Medications Medications (Trade) Dose Ordered Sig/Elmer Route PRN Reason Start Time Stop Time Status Last Admin Dose Admin Acetaminophen (TYLenol 325MG TAB) 650 mg Q4H PRN PO Temp >38.3C(AFTER EXTUBATION) 08/20/25 17:00 09/19/25 16:59 Acetaminophen (TYLenol 325MG TAB) 650 mg Q6H PRN PO MILD PAIN (1-3) 08/13/25 16:30 09/12/25 16:29 08/20/25 01:28 650 MG Acetaminophen (TYLenol 500MG TAB) 500 mg Q6H PRN PO TEMP < 101.1 AND/OR HEADACHE 08/14/25 14:30 09/13/25 14:29 08/20/25 08:23 500 MG Acetaminophen (TYLenol 650MG SUPPOSITORY) 650 mg Q4H PRN RC Temp >38.3C WHILE INTUBATED 08/20/25 17:00 09/19/25 16:59 Acetaminophen (acetaMINOPHEN 1,000MG/100ML) 1,000 mg Q6H6 IVPB 08/21/25 12:00 09/20/25 11:59 08/21/25 11:42 1,000 MG Albumin Human 50 ml @ 0 mls/hr BID IV 08/18/25 09:00 08/23/25 08:59 08/21/25 08:15 100 MLS/HR Albumin Human 250 ml @ 0 mls/hr AD PRN IV IF HEMODYNAMICALLY UNSTABLE 08/20/25 17:00 08/20/25 22:46 DC 08/20/25 22:46 0 MLS/HR Aminocaproic Acid 48156 mg/Sodium Chloride 310 ml @ 25 mls/hr AD IV 08/20/25 17:00 08/21/25 05:23 DC Aminocaproic Acid 01547 mg/Sodium Chloride 480 ml @ 0 mls/hr AD PRN IV BLEEDING CONTROL 08/20/25 08:00 09/19/25 07:59 Aminocaproic Acid 81978 mg/Sodium Chloride 480 ml @ 0 mls/hr AD PRN IV BLEEDING CONTROL 08/20/25 09:00 08/20/25 09:03 DC Amiodarone HCl 360 mg/Dextrose 207.2 ml @ 33.3 mls/hr AD IV 08/20/25 21:00 08/20/25 21:05 DC Amiodarone HCl 540 mg/Dextrose 310.8 ml @ 16.7 mls/hr [id number] IV 08/21/25 03:00 09/20/25 02:59 08/21/25 02:09 16.7 MLS/HR Amiodarone HCL/ Dextrose 207.2 ml @ 33.3 mls/hr AD IV 08/20/25 21:30 08/21/25 10:49 DC 08/20/25 21:24 33.3 MLS/HR Aspirin (Aspirin 81mg Chew Tab) 81 mg DAILY PO 08/14/25 09:00 09/13/25 08:59 08/21/25 08:16 81 MG Atorvastatin Calcium (LIPItor 40MG) 40 mg HS PO 08/13/25 21:00 09/12/25 20:59 08/20/25 22:26 40 MG Bisacodyl (DulcoLAX) 10 mg DAILY RC 08/17/25 09:00 08/20/25 08:59 DC 08/18/25 07:58 10 MG Calcium Carbonate (Tums 500 Mg Chew Tab) 500 tab QID PRN PO HEARTBURN 08/19/25 12:00 08/20/25 16:32 DC 08/20/25 05:10 1 TAB Calcium Gluconate 1 gm/Sodium Chloride 60 ml @ 200 mls/hr AD PRN IV HYPOCALCEMIA 08/20/25 17:00 09/19/25 16:59 08/21/25 04:11 200 MLS/HR Cefazolin Sodium (Ancef) 2 gm ONCALL IVP 08/19/25 19:30 08/21/25 08:36 DC 08/20/25 16:30 2 GM Cefazolin Sodium (Ancef) 2 gm Q8H IVPB 08/20/25 22:00 08/21/25 14:01 08/21/25 06:00 2 GM Ceftriaxone Sodium (Rocephin 2gm Inj) 2 gm Q24H IVPB 08/14/25 11:30 08/24/25 11:29 08/21/25 11:35 2 GM Chlordiazepoxide HCl (LIBrium 25 MG CAP) 25 mg Q2H PRN PO ALCOHOL WITHDRAWAL PROTOCOL 08/14/25 14:30 08/20/25 16:32 DC 08/16/25 23:38 25 MG Chlordiazepoxide HCl (LIBrium 25 MG CAP) 50 mg Q1H PRN PO ALCOHOL WITHDRAWAL PROTOCOL 08/14/25 14:30 08/20/25 16:32 DC Dexmedetomidine/ Sodium Chloride (PRECEdex 400MCG/ 100ML-NS) 400 mcg PROTOCOL IV 08/20/25 20:30 09/19/25 20:29 08/21/25 08:03 400 MCG Dextrose (D50w) 50 ml AD PRN IV HYPOGLYCEMIA PROTOCOL 08/20/25 17:00 09/19/25 16:59 Dextrose (D50w) 50 ml AD PRN IV HYPOGLYCEMIA PROTOCOL 08/13/25 20:00 08/20/25 22:03 DC Diphenhydramine HCl (BENAdryl INJ) 25 mg ONCE PRN IV ITCHING 08/15/25 23:00 08/17/25 22:59 DC Docusate Sodium (COLace 100MG CAP) 100 mg BID PRN PO CONSTIPATION 08/14/25 11:00 09/13/25 10:59 Dopamine HCl/ Dextrose 250 ml @ 0 mls/hr PROTOCOL IV 08/13/25 16:00 09/12/25 15:59 08/16/25 16:41 3 MLS/HR Epinephrine HCl 10 mg/Sodium Chloride 250 ml @ 14.091 mls/ hr AD PRN IV POST-OP CARDIOVASCULAR ORDERS 08/20/25 17:00 08/21/25 10:49 DC Epinephrine HCl 10 mg/Sodium Chloride 250 ml @ 0 mls/hr AD PRN IV TITRATE 08/20/25 08:00 09/19/25 07:59 Epinephrine HCl 10 mg/Sodium Chloride 250 ml @ 0 mls/hr AD PRN IV TITRATE 08/20/25 09:00 08/20/25 09:03 DC Famotidine (Pepcid 20mg Vial) 20 mg BID IV 08/20/25 21:00 09/19/25 20:59 08/21/25 08:16 20 MG Folic Acid (FOLic ACID 1 MG TABLET) 1 mg DAILY PO 08/15/25 09:00 08/17/25 09:01 DC 08/17/25 07:46 1 MG Furosemide (LASix 20MG VIAL) 20 mg Q12H IV 08/21/25 11:30 09/20/25 11:29 08/21/25 11:42 20 MG Glucagon (Glucagon 1mg Kit) 1 mg AD PRN IM HYPOGLYCEMIA PROTOCOL 08/20/25 17:00 09/19/25 16:59 Glucagon (Glucagon 1mg Kit) 1 mg AD PRN IM HYPOGLYCEMIA PROTOCOL 08/13/25 20:00 08/21/25 10:49 DC Heparin Sodium (Porcine) (HEParin 5,000 UNIT VIAL) *calculation based on ACTUAL B... AD PRN IV HEPARIN PROTOCOL 08/13/25 16:30 08/20/25 16:32 DC 08/17/25 04:46 3,175 UNIT Heparin Sodium/ Dextrose 250 ml @ 0 mls/hr PROTOCOL IV 08/21/25 11:30 09/20/25 11:29 Heparin Sodium/ Dextrose 250 ml @ 0 mls/hr Q6H IV 08/13/25 16:30 08/20/25 16:32 DC 08/19/25 22:03 11.78 MLS/HR Insulin Glargine (LANtus 100 UNITS/ML 10 ML VIAL) 5 units BID@0730,2100 SQ 08/16/25 21:00 08/17/25 09:31 DC 08/16/25 21:21 5 UNITS Insulin Glargine (LANtus 100 UNITS/ML 10 ML VIAL) 10 units HS SQ 08/13/25 21:00 08/14/25 06:16 DC 08/13/25 20:21 10 UNITS Insulin Glargine (LANtus 100 UNITS/ML 10 ML VIAL) 20 units DAILY SQ 08/14/25 09:00 08/15/25 07:24 DC 08/14/25 08:01 20 UNITS Insulin Glargine (LANtus 100 UNITS/ML 10 ML VIAL) 30 units DAILY SQ 08/15/25 09:00 08/16/25 07:19 DC 08/15/25 08:28 30 UNITS Insulin Glargine (LANtus 100 UNITS/ML 10 ML VIAL) 35 units DAILY SQ 08/16/25 09:00 08/19/25 07:35 DC 08/18/25 07:59 35 UNITS Insulin Glargine (LANtus 100 UNITS/ML 10 ML VIAL) 42 units DAILY SQ 08/19/25 09:00 08/20/25 06:22 DC 08/19/25 09:40 42 UNITS Insulin Glargine (LANtus 100 UNITS/ML 10 ML VIAL) 45 units DAILY SQ 08/20/25 09:00 08/20/25 16:32 DC Insulin Human Lispro (HumaLOG LISpro 100 UNIT/ML 3ML) INSULIN SLIDING SCAL... ACHS SQ 08/16/25 21:00 08/17/25 09:31 DC Insulin Human Regular (humuLIN R 100 UNIT/ML 3ML) 5 unit TIDAC SQ 08/14/25 17:00 08/15/25 07:24 DC 08/15/25 07:03 5 UNIT Insulin Human Regular (humuLIN R 100 UNIT/ML 3ML) 8 unit TIDAC SQ 08/15/25 07:30 08/15/25 22:46 DC 08/15/25 16:02 8 UNIT Insulin Human Regular (humuLIN R 100 UNIT/ML 3ML) 10 unit TIDAC SQ 08/16/25 07:30 08/17/25 21:12 DC 08/17/25 16:09 10 UNIT Insulin Human Regular (humuLIN R 100 UNIT/ML 3ML) 12 unit TIDAC SQ 08/18/25 07:30 08/18/25 20:19 DC 08/18/25 16:39 12 UNIT Insulin Human Regular (humuLIN R 100 UNIT/ML 3ML) 16 unit TIDAC SQ 08/19/25 07:30 08/20/25 06:22 DC 08/19/25 16:47 16 UNIT Insulin Human Regular (humuLIN R 100 UNIT/ML 3ML) 17 unit TIDAC SQ 08/20/25 07:30 08/20/25 16:32 DC Insulin Human Regular (humuLIN R 100 UNIT/ML 3ML) INSULIN SLIDING SCAL... ACHS SQ 08/17/25 16:30 08/20/25 16:32 DC 08/19/25 21:31 8 UNIT Insulin Human Regular (humuLIN R 100 UNIT/ML 3ML) INSULIN SLIDING SCAL... ACHS SQ 08/13/25 16:30 08/16/25 20:46 DC 08/16/25 20:01 4 UNIT Insulin Human Regular 100 unit/ Sodium Chloride 100 ml @ 0 mls/hr AD IV 08/20/25 17:00 08/22/25 16:59 08/20/25 21:31 3 MLS/HR Lidocaine (Lidocaine Patch 4%) 1 each DAILY TP 08/19/25 09:00 09/18/25 08:59 08/21/25 10:43 1 EACH Lidocaine HCl/ Dextrose 250 ml @ 0 mls/hr PROTOCOL IV 08/21/25 00:00 09/20/25 00:00 Magnesium Sulfate 50 ml @ 12.5 mls/hr AD PRN IV MAG LEVEL LESS THAN 2.0 08/20/25 17:00 09/19/25 16:59 Magnesium Sulfate 50 ml @ 0 mls/hr PROTOCOL IV 08/13/25 16:30 08/21/25 10:49 DC 08/21/25 05:58 25 MLS/HR Morphine Sulfate (morPHINE 2MG SYG) 0.5 mg Q2H PRN IV MODERATE PAIN (4-6) 08/20/25 17:00 08/20/25 18:07 DC Morphine Sulfate (morPHINE 2MG SYG) 2 mg Q6H PRN IVP SEVERE PAIN (7-10) 08/19/25 18:00 08/20/25 16:32 DC 08/19/25 17:50 2 MG Morphine Sulfate (morPHINE 4MG SYG) 0.5 mg Q2H PRN IV MODERATE PAIN (4-6) 08/20/25 18:30 08/21/25 16:59 Morphine Sulfate (morPHINE 4MG SYG) 1 mg Q2H PRN IV SEVERE PAIN (7-10) 08/20/25 17:00 08/21/25 16:59 Morphine Sulfate (morPHINE 4MG SYG) 2 mg Q6H PRN IVP SEVERE PAIN (7-10) 08/14/25 09:30 08/19/25 12:29 DC 08/19/25 12:22 2 MG Multivitamins Therapeutic (Multivitamin Tablet) 1 tab DAILY PO 08/15/25 09:00 09/14/25 08:59 08/21/25 08:16 1 TAB Nitroglycerin/ Dextrose 0 ml @ 0 mls/hr AD IV 08/20/25 17:00 08/23/25 16:59 Nitroglycerin/ Dextrose 250 ml @ 0 mls/hr PROTOCOL IV 08/20/25 03:30 08/20/25 16:32 DC 08/20/25 03:12 1.5 MLS/HR Norepinephrine 250 ml @ 0 mls/hr PROTOCOL IV 08/13/25 15:30 08/20/25 08:31 DC Norepinephrine Bitartrate 250 ml @ 0 mls/hr AD PRN IV TITRATE 08/20/25 08:00 09/19/25 07:59 08/21/25 06:40 9.4 MLS/HR Norepinephrine Bitartrate 250 ml @ 0 mls/hr AD PRN IV TITRATE 08/20/25 09:00 08/20/25 09:03 DC Norepinephrine Bitartrate 8 mg/ Dextrose 250 ml @ 0 mls/hr AD PRN IV POST-OP CARDIOVASCULAR ORDERS 08/20/25 17:00 08/21/25 10:49 DC Ondansetron HCl (zoFRAN 4MG INJ) 4 mg Q4H PRN IV NAUSEA 08/14/25 14:30 08/20/25 16:32 DC 08/14/25 14:17 4 MG Ondansetron HCl (zoFRAN 4MG INJ) 4 mg Q6H PRN IV NAUSEA/VOMITING 08/20/25 17:00 09/19/25 16:59 Ondansetron HCl (zoFRAN 4MG INJ) 4 mg Q6H PRN IVP NAUSEA/VOMITING 08/13/25 16:30 08/14/25 14:08 DC Pantoprazole Sodium (PROTonix 40MG INJ) 40 mg Q12H IVP 08/17/25 16:30 08/20/25 16:32 DC 08/20/25 03:53 40 MG Pantoprazole Sodium (PROTonix 40MG INJ) 40 mg Q24H IVP 08/13/25 16:30 08/17/25 11:10 DC 08/16/25 16:07 40 MG Pharmacy Profile Note (Pharmacy Communication) 1 each PROTOCOL PRN MISC ETOH Withdrawal Score changes 08/14/25 14:30 08/14/25 14:08 DC Polyethylene Glycol (MIRalax 3350 17 GM POWD.PACK) 17 gm DAILY PO 08/15/25 09:00 09/14/25 08:59 08/21/25 08:15 17 GM Potassium Phosphate 250 ml @ 42 mls/hr AD PRN IV LOW PHOS LEVEL 08/20/25 17:00 09/19/25 16:59 Potassium Chloride 100 ml @ 100 mls/hr AD PRN IV HYPOKALEMIA 08/20/25 17:00 09/19/25 16:59 08/21/25 01:19 100 MLS/HR Potassium Chloride 100 ml @ 100 mls/hr AD PRN IV POTASSIUM PROTOCOL 08/13/25 16:30 08/20/25 16:32 DC 08/16/25 16:07 100 MLS/HR Potassium Chloride (K-Dur/Klor-Con 20meq) 20 meq AD PRN PO POTASSIUM PROTOCOL 08/13/25 16:30 08/20/25 16:32 DC 08/15/25 08:23 20 MEQ Potassium Chloride (KCl 10% Elixir 20meq/15ml) 20 meq AD PRN PO POTASSIUM PROTOCOL 08/13/25 16:30 08/20/25 16:32 DC Promethazine HCl (Phenergan) 25 mg Q6H PRN PO NAUSEA 08/14/25 14:30 08/20/25 16:32 DC Propofol 100 ml @ 0 mls/hr AD PRN IV SEDATION 08/20/25 17:00 08/24/25 16:59 Sodium Bicarbonate 25 meq/Dextrose 1,000 ml @ 0 mls/hr Q0M IV 08/14/25 00:30 09/13/25 00:29 08/20/25 23:15 50 MLS/HR Sodium Bicarbonate 25 meq/Dextrose 1,000 ml @ 0 mls/hr Q0M IVP 08/14/25 00:30 08/14/25 00:15 DC Sodium Bicarbonate (Sodium Bicarb 50meq 50ml Vial) 50 meq AD PRN IV OTHER[SEE DOSING INSTRUCTIONS] 08/20/25 17:00 08/23/25 16:59 08/21/25 01:19 50 MEQ Sodium Chloride 500 ml @ 500 mls/hr Q1H IV 08/20/25 00:33 08/20/25 03:16 DC 08/20/25 00:53 500 MLS/HR Sodium Chloride 500 ml @ 0 mls/hr AD IV 08/20/25 17:00 09/19/25 16:59 Sodium Chloride 1,000 ml @ 10 mls/hr ONCE IV 08/20/25 17:00 08/21/25 16:59 08/20/25 22:31 10 MLS/HR Sodium Chloride (NS Flush 10ml) 10 ml Q8H PRN IVP IV LINE FLUSH 08/20/25 17:00 09/19/25 16:59 Thiamine HCl (Vitamin B-1) 300 mg DAILY IV 08/15/25 09:00 08/17/25 09:01 DC 08/17/25 07:46 300 MG Ticagrelor (BRILinta) 90 mg BID PO 08/14/25 09:00 08/14/25 21:19 DC 08/14/25 20:09 90 MG Tramadol HCl (UltRAM) 25 mg Q6H PRN PO MODERATE PAIN (4-6) 08/20/25 17:00 08/25/25 16:59 Tramadol HCl (UltRAM) 50 mg Q6H PRN PO SEVERE PAIN (7-10) 08/20/25 17:00 08/25/25 16:59 Vancomycin HCl 250 ml @ 125 mls/hr Q12H IV 08/18/25 09:00 08/19/25 20:54 DC 08/19/25 09:39 125 MLS/HR Vancomycin HCl 250 ml @ 125 mls/hr Q8H IV 08/19/25 21:30 08/21/25 00:23 DC 08/20/25 22:26 125 MLS/HR Vancomycin HCl 250 ml @ 125 mls/hr Q8H IV 08/21/25 06:30 08/21/25 08:35 DC 08/21/25 08:15 125 MLS/HR Vancomycin HCl 250 ml @ 125 mls/hr Q8H IV 08/21/25 08:00 08/21/25 06:28 DC Vancomycin HCl 250 ml @ 125 mls/hr Q8H IV 08/21/25 16:30 08/31/25 16:29 Vancomycin HCl (Vancomycin Protocol) 1 each AD IV 08/17/25 22:00 08/31/25 21:59 DIAGNOSTICS / RADIOLOGY: [ ] ASSESSMENT: Cardiogenic shock with lactic acidosis, POA NSTEMI/ACS, POA Complete heart block, POA History of multivessel coronary artery disease, POA History of cocaine use disorder, POA Severe nonketotic hyperglycemia, POA History of to poorly controlled type 2 diabetes mellitus, POA Lactic acidosis, POA History of anemia, POA History of gastritis, POA History of hypertension, POA History of PTSD/anxiety, POA Obesity, POA Medical noncompliance, POA PLAN: Continue ceftriaxone and cefazolin (surgical prophylaxis) Trend WBCs Follow-up blood cultures O2 nasal cannula as needed Follow up with Critical care, appreciate assistance Continue aspirin, atorvastatin, Brilinta Monitor blood pressure Follow up with CT surgery Follow up with Cardiology Continue norepinephrine, wean as tolerated Continue dopamine and amiodarone Continue Impella support Continue GI soft diet Continue GI prophylaxis with famotidine No need for IV fluids Trend a.m. BMP Replete electrolytes as necessary Hold heparin drip pending CABG DVT prophylaxis with SCDs only for now Trend a.m. CBC Follow up With endocrinology Full code Case was discussed with patient's nurse at bedside Critical care Attention time greater than 30 minutes CHRISTIAN MACHUCA IV, MD Aug 21, 2025 11:47
--- NOTE | 2025-08-21 12:00 | NUR ---
Hold PT, patient with Impella in place. PT team to follow. Addendum: 08/21/25 at 1552 by WAQAS COATES PT Amended: Links added.
[2025-08-21 13:14] LABS: ABG BASE EXCESS 1.9 mmol/L (-2.0-3.0); ABG HCO3 25.2 mmol/L (21.0-28.0); ABG OXYGEN SATURATION 90.6 % (94.0-98.0); ABG PCO2 34 mmHg (32-45); ABG PH 7.489 (7.350-7.450); CARBON MONOXIDE 0.8 % (0.5-1.5); DEVICE COMMENT ALINE SYLVIA; PO2, ARTERIAL BG 59.2 mmHg (83.0-108.0); TEMPERATURE, CELSIUS BG 37.0 CELSIUS (35.5-37.0); VENT MODE, BG 3LNC (ROOM AIR)
--- NOTE | 2025-08-21 14:47 | PN ---
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, Impella placement Complete heart block, status post transvenous temporary pacemaker placement Acute hypoxic respiratory failure, NSTEMI, POA Bactermia + Staph Cohni urealyticum DM type 2, with hyperglycemia, HGB A1c of 10.7 Cocaine abuse Tobacco use, current smoker History of CVA INTERVAL HISTORY: Patient seen and examined, in postop CVA unit, she remains intubated, sedated She is on levo and epi along with an Impella at P7 Vent settings 40/50 She continues on lidocaine and amnio for postoperative V-tach She continues on the cefepime and vancomycin, we are pending a vanco trough Urine output at goal but diminished Plan: Follow CT surgeon recs Follow I&Os Wean pressors per protocol Vent management, pending a.m. ABG Daily chest x-ray Antibiotics and following cultures Impella support Critical care time 55 minutes, this time excludes any time spent on education or procedures. REVIEW OF SYSTEMS: 12 point ROS reviewed with patient. Pertinent positives mentioned above. Otherwise negative. PHYSICAL EXAM: GENERAL: alert, weak, awake oriented x 3 HEENT: EOMI, Sclera non icteric, moist mucosa NECK: Supple, no JVD, trachea midline LUNGS: Clear breath sounds bilaterally. No wheezes HEART: TVP Normal S1 and S2, without murmurs ABD: Abdomen soft, nontender. Bowel sounds present EXT: No clubbing cyanosis or edema NEURO: Alert and oriented to person, follows commands Vital Signs (last 8hr) Date Time Temp Pulse Resp B/P (MAP) Pulse Ox O2 Delivery O2 Flow Rate FiO2 08/21/25 08:53 80 20 Aerosol, Face Mask 10.0 40 08/21/25 08:50 80 20 10.0 40 08/21/25 08:00 100 Ventilator+ 40 08/21/25 07:34 79 40 08/21/25 07:01 81 40 LABS: Hematology Labs: Test 08/21/25 03:34 Range/Units White Blood Count 14.3 #H 4.8-10.8 K/uL Red Blood Count 2.48 L 4.00-5.50 MIL/uL Hemoglobin 7.4 L 12.0-16.0 g/dL Hematocrit 21.8 L 36-48 % Mean Corpuscular Volume 87.9 79-99 fL Mean Corpuscular Hemoglobin 29.8 27.0-33.0 pg Mean Corpuscular Hemoglobin Concent 33.9 32.0-36.0 g/dL Red Cell Distribution Width 15.8 H 11.0-15.5 % Platelet Count 120 L 130-400 K/uL Mean Platelet Volume 11.7 H 7.5-10.5 fL Nucleated Red Blood Cells 4.7 H 0.0-0.19 % Chemistry Labs: Test 08/21/25 13:16 08/21/25 12:27 08/21/25 03:34 08/20/25 21:09 Range/Units Magnesium Level 1.90 1.80-2.40 mg/dL Whole Blood Glucose 175 H 70-110 MG/DL Sodium Level 150 H 136-145 mmol/L Potassium Level 3.9 3.5-5.1 mmol/L Chloride Level 113 H 101-111 mmol/L Carbon Dioxide Level 26 21-32 mmol/L Blood Urea Nitrogen 13 7-18 mg/dL Creatinine 0.7 0.5-1.0 mg/dL Glomerular Filtration Rate Calc 100 >90 mL/min Random Glucose 225 H 70-105 mg/dL Total Calcium 8.9 8.5-10.1 mg/dL Ionized Calcium 1.18 1.15-1.33 MMOL/L Total Bilirubin 0.5 0.2-1.0 mg/dL Aspartate Amino Transf (AST/SGOT) 59 H 10-37 U/L Alanine Aminotransferase (ALT/SGPT) 22 12-78 U/L Alkaline Phosphatase 66 # 50-136 U/L B-Type Natriuretic Peptide 359 H 0-100 pg/mL Total Protein 5.1 L 6.0-8.3 g/dL Albumin 2.5 L 3.5-5.0 g/dL Phosphorus Level 4.9 2.5-4.9 mg/dL Test 08/20/25 04:40 Range/Units Triglycerides Level 58 30-200 mg/dL Cholesterol Level 83 # <200 mg/dL LDL Cholesterol 31 0-99 mg/dL HDL Cholesterol 39 35-85 mg/dL Coagulation Labs: Test 08/21/25 03:34 Range/Units Prothrombin Time 12.5 H 9.6-11.6 SEC Prothromb Time International Ratio 1.20 H 0.85-1.15 Activated Partial Thromboplast Time 30.8 # 26.3-35.5 SEC Fibrinogen 424 H 180-350 mg/dL DIAGNOSTICS / RADIOLOGY RESULTS: [ ] PLAN NEURO: Minimize central acting medications as possible. Fall Precautions. Well lighted room through the day and minimize interruptions through the night to prevent acute delirium. PULMONARY: Supplemental 02 as needed Titrate Fio2 to keep Spo2 > or = 90% DuoNebs and CPT as needed IS hourly while awake for pulmonary hygiene CARDIOVASCULAR: Follow hemodynamics. Titrate vasopressor to keep MAP >65 or systolic blood pressure >95mmHg DIPS: Dopamine weaned off Heparin gtt LINES: Peripheral IV CVP Impella GI & NUTRITION: Continue nutritional support Aspirations precautions Prokinetic agents and laxatives as needed Clear liquid diet as tolerated KIDNEYS & ELECTROLYTES: Strict monitoring of intake and output Daily weights Avoid nephrotoxic agents Monitor electrolytes and replace as needed Goal urine output of 30mL/hr or 0.5mL/kg/hr ENDOCRINE: Maintain blood glucose between 100-180 at all times. Insulin sliding scale for blood glucose management INFECTIOUS DISEASE: Trend temperature. Astudillo-culture if febrile. Micro: [ ] Urine culture - Ecoli Blood culture - Staph cohnii urealyticum Antibiotics: [ ] Rocephin Vancomycin HEMATOLOGY & COAGULATION: Monitor H&H. Keep Hgb > 7 Transfuse 1 unit of PRBC for Hgb < 7 Transfuse 1 pack of platelets of platelets < 20, 000 Watch for any signs and symptoms of bleeding SKIN: Pressure ulcer prevention per facility protocol Rehab: PT/OT Prophylaxis: GI: PPI DVT: SCDs patient on heparin drip Code Status: Full Resuscitation Disposition: ICU CHIRAG HURTADO PAC Aug 21, 2025 14:47
[2025-08-21] MEDS: MAGNESIUM 2GM PREMIX 50ML 50 ML IV PRN (14:50)
--- NOTE | 2025-08-21 16:16 | HMCIMG ---
EXAM: CR Chest, 1 view CLINICAL HISTORY: Status post CABG. COMPARISON: Chest radiograph dated 08/21/2025, 6:36 IST. FINDINGS: The endotracheal tube tip is 4.8 cm above the jerica. The gastric tube tip overlies the proximal to mid body of the stomach. The right transjugular [place] catheter tip overlies the right pulmonary artery. Status poststernotomy. Drainage tubes overlie the thorax. Mild cardiomegaly and perihilar vascular congestion. Small pleural effusion and lower zone airspace disease on the left side. No pneumothorax. No acute osseous abnormality. IMPRESSION: 1. Small left pleural effusion and left lower zone airspace disease. 2. Mild cardiomegaly and perihilar vascular congestion. 3. Appropriately positioned endotracheal tube, gastric tube, and [place] catheter. 4. Status post sternotomy with drainage tubes overlying the thorax. 5. No pneumothorax. 6. No acute osseous abnormality. /[place]
--- NOTE | 2025-08-21 16:26 | PN ---
This is a 60-year-old female with underlying history of obesity, coronary artery disease, poorly controlled type 2 diabetes mellitus, history of anemia, history of cocaine use, tobacco use disorder, history of CVA in 2008, who presented to the ER with severe substernal chest pain and shortness of breath. She is admitted for further evaluation and management of NSTEMI , Cardiogenic shock. She underwent left heart catheterization and was placed on Impella on 08.13.25. We are consulted for thrombocytopenia .Her platelets were 2,09,000 at the time of admission and today its 1,17,000 .Peripheral smear negative for HIT .She is found to have Hb 6.5 and is receiving 1 unit of PRBC. We will request direct elieser test to rule out hemolysis . Patient continues to be on P6 Impella . Her vitals are stable . Status post CABG procedure. Patient is waking up. Patient is extubated. Her hemoglobin level 7.4 g/deciliter. REVIEW OF SYSTEMS CONSTITUTIONAL: Denies fever, chills, or fatigue. HEAD/FACE: No signs of trauma. EENT: Denies eye pain, blurred vision, double vision, or light sensitivity. RESPIRATORY: Denies shortness of breath, cough, wheezing CARDIOVASCULAR: Denies chest pain, palpitation, syncope GASTROINTESTINAL/ABDOMINAL: Denies abdominal pain, constipation, diarrhea, nausea or vomiting GENITOURINARY: Denies dysuria or hematuria. MUSCULOSKELETAL: Denies joint pain, tenderness, or trauma. INTEGUMENTARY: Denies rash or itchiness NEUROLOGICAL/PSYCH: Denies anxiety, depression, heat or cold intolerance. PHYSICAL EXAM EYES: Anicteric. Pupils equal and reactive. HENT: No oral thrush seen, moist Oral mucosa NECK: Supple, no JVD or thyromegaly. LUNGS: Good air entry. No rales, no rhonchi. CARDIOVASCULAR: S1, S2 regular. No murmur heard. ABDOMEN: Soft, non tender, bowel sounds present, no organomegaly CENTRAL NERVOUS SYSTEM: Awake, alert, oriented x 3. No focal deficits. SKIN: No rashes, no swelling. LYMPHATICS: No peripheral lymphadenopathy MUSCULOSKELETAL: No joint swelling, erythema or tenderness. EXTREMITIES: No cyanosis or clubbing BACK: No deformity, no pressure ulcer. GENITOURINARY: No dysuria or hematuria ASSESSMENT: 1. Thrombocytopenia. Platelet count stable at 1 20K. 2. Anemia. Hemoglobin level 7.4 g/deciliter 3. NSTEMI, POA 4. Cardiogenic shock SCAI stage D Status post bypass procedure 5. Complete heart block, status post transvenous temporary pacemaker placement POA 6. CAD, with multivessel disease, POA 7. DM type 2, with hyperglycemia, poorly controlled, HGB A1c of 10.7 POA PLAN: 1.Peripheral blood smear showed macrocytic RBCs. Patient was found to have iron deficiency anemia. This patient to be started on IV iron 200 mg daily for 3 days. 2. There is no need for Procrit to be done at this time 3. Patient to be transfused as per cardiothoracic surgery 4. This patient is not suspicious for any heparin-induced thrombocytopenia. Patient to be continued on heparin drip as scheduled. 5. Continue care as per cardiothoracic surgeon Vitals/Labs Vital Signs Date Time Temp Pulse Resp B/P (MAP) Pulse Ox O2 Delivery O2 Flow Rate FiO2 08/21/25 15:24 80 11 111/77 (88) 97 40 130/70 (90) 08/21/25 08:53 Aerosol, Face Mask 10.0 08/20/25 23:54 98.4 Laboratory Tests 08/20/25 21:09 08/21/25 03:34 Medications Current Medications Ondansetron HCl 4 mg ONCE ONCE IVP; Start 08/13/25 at 14:30; Stop 08/13/25 at 14:52; Status DC Sodium Chloride 500 ml @ 0 mls/hr ONCE ONCE IV Last administered on 08/13/25at 15:00; Start 08/13/25 at 14:30; Stop 08/13/25 at 14:31; Status DC Heparin Sodium (Porcine) *calculation based on ACTUAL B... AD PRN IV Last administered on 08/17/25at 04:46; Start 08/13/25 at 16:30; Stop 08/20/25 at 16:32; Status DC Heparin Sodium/ Dextrose 250 ml @ 0 mls/hr Q6H IV Last administered on 08/19/25at 22:03; Start 08/13/25 at 16:30; Stop 08/20/25 at 16:32; Status DC Norepinephrine 250 ml @ 0 mls/hr PROTOCOL IV; Start 08/13/25 at 15:30; Stop 08/20/25 at 08:31; Status DC Dopamine HCl/ Dextrose 250 ml @ As Directed STK-MED ONCE IV; Start 08/13/25 at 15:33; Stop 08/13/25 at 15:33; Status DC Aspirin 325 mg STK-MED ONCE .ROUTE; Start 08/13/25 at 15:34; Stop 08/13/25 at 15:33; Status DC Ticagrelor 180 mg ONCE ONCE PO Last administered on 08/13/25at 16:16; Start 08/13/25 at 16:00; Stop 08/13/25 at 16:01; Status DC Morphine Sulfate 1 mg ONCE ONCE IVP Last administered on 08/13/25at 16:23; Start 08/13/25 at 16:00; Stop 08/13/25 at 16:01; Status DC Ticagrelor 90 mg STK-MED ONCE .ROUTE; Start 08/13/25 at 15:50; Stop 08/13/25 at 15:50; Status DC Dopamine HCl/ Dextrose 250 ml @ 0 mls/hr PROTOCOL IV Last administered on 08/16/25at 16:41; Start 08/13/25 at 16:00; Stop 09/12/25 at 15:59 Aspirin 325 mg ONCE ONCE PO Last administered on 08/13/25at 16:15; Start 08/13/25 at 16:00; Stop 08/13/25 at 16:01; Status DC Lidocaine HCl 20 ml STK-MED ONCE .ROUTE; Start 08/13/25 at 16:12; Stop 08/13/25 at 16:12; Status DC Iohexol 35,000 mg STK-MED ONCE IV; Start 08/13/25 at 16:12; Stop 08/13/25 at 16:12; Status DC Heparin Sodium (Porcine) 10,000 unit STK-MED ONCE .ROUTE; Start 08/13/25 at 16:12; Stop 08/13/25 at 16:12; Status DC Nicardipine HCl 25 mg STK-MED ONCE IV; Start 08/13/25 at 16:12; Stop 08/13/25 at 16:12; Status DC Heparin Sodium/ Sodium Chloride 1,000 ml @ As Directed STK-MED ONCE IV; Start 08/13/25 at 16:12; Stop 08/13/25 at 16:12; Status DC Nitroglycerin 50 mg STK-MED ONCE .ROUTE; Start 08/13/25 at 16:12; Stop 08/13/25 at 16:12; Status DC Pantoprazole Sodium 40 mg Q24H IVP Last administered on 08/16/25at 16:07; Start 08/13/25 at 16:30; Stop 08/17/25 at 11:10; Status DC Insulin Human Regular INSULIN SLIDING SCAL... ACHS SQ Last administered on 08/16/25at 20:01; Start 08/13/25 at 16:30; Stop 08/16/25 at 20:46; Status DC Insulin Human Regular 5 unit ONCE ONCE IV; Start 08/13/25 at 16:30; Stop 08/13/25 at 16:31; Status DC Fentanyl Citrate 100 mcg STK-MED ONCE .ROUTE; Start 08/13/25 at 16:26; Stop 08/13/25 at 16:26; Status DC Midazolam HCl 2 mg STK-MED ONCE .ROUTE; Start 08/13/25 at 16:27; Stop 08/13/25 at 16:27; Status DC Acetaminophen 650 mg Q6H PRN PO Last administered on 08/20/25at 01:28; Start 08/13/25 at 16:30; Stop 09/12/25 at 16:29 Ondansetron HCl 4 mg Q6H PRN IVP; Start 08/13/25 at 16:30; Stop 08/14/25 at 14:08; Status DC Potassium Chloride 100 ml @ 100 mls/hr AD PRN IV Last administered on 08/16/25at 16:07; Start 08/13/25 at 16:30; Stop 08/20/25 at 16:32; Status DC Potassium Chloride 20 meq AD PRN PO; Start 08/13/25 at 16:30; Stop 08/20/25 at 16:32; Status DC Potassium Chloride 20 meq AD PRN PO Last administered on 08/15/25at 08:23; Start 08/13/25 at 16:30; Stop 08/20/25 at 16:32; Status DC Magnesium Sulfate 50 ml @ 0 mls/hr PROTOCOL IV Last administered on 08/21/25at 05:58; Start 08/13/25 at 16:30; Stop 08/21/25 at 10:49; Status DC Atorvastatin Calcium 40 mg HS PO Last administered on 08/20/25at 22:26; Start 08/13/25 at 21:00; Stop 09/12/25 at 20:59 Heparin Sodium/ Sodium Chloride 500 ml @ As Directed STK-MED ONCE IV; Start 08/13/25 at 17:14; Stop 08/13/25 at 17:14; Status DC Heparin Sodium (Porcine) 10,000 unit STK-MED ONCE .ROUTE; Start 08/13/25 at 18:03; Stop 08/13/25 at 18:03; Status DC Aspirin 81 mg DAILY PO Last administered on 08/21/25at 08:16; Start 08/14/25 at 09:00; Stop 09/13/25 at 08:59 Insulin Glargine 10 units HS SQ Last administered on 08/13/25at 20:21; Start 08/13/25 at 21:00; Stop 08/14/25 at 06:16; Status DC Dextrose 50 ml AD PRN IV; Start 08/13/25 at 20:00; Stop 08/20/25 at 22:03; Status DC Glucagon 1 mg AD PRN IM; Start 08/13/25 at 20:00; Stop 08/21/25 at 10:49; Status DC Sodium Bicarbonate 25 meq/Dextrose 1,000 ml @ 0 mls/hr Q0M IVP; Start 08/14/25 at 00:30; Stop 08/14/25 at 00:15; Status DC Sodium Bicarbonate 25 meq/Dextrose 1,000 ml @ 0 mls/hr Q0M IV Last administered on 08/20/25at 23:15; Start 08/14/25 at 00:30; Stop 09/13/25 at 00:29 Glycerin 1 supp ONCE ONCE RC Last administered on 08/14/25at 05:56; Start 08/14/25 at 05:00; Stop 08/14/25 at 05:06; Status DC Insulin Glargine 20 units DAILY SQ Last administered on 08/14/25at 08:01; Start 08/14/25 at 09:00; Stop 08/15/25 at 07:24; Status DC Ticagrelor 90 mg BID PO Last administered on 08/14/25at 20:09; Start 08/14/25 at 09:00; Stop 08/14/25 at 21:19; Status DC Morphine Sulfate 2 mg Q6H PRN IVP Last administered on 08/19/25at 12:22; Start 08/14/25 at 09:30; Stop 08/19/25 at 12:29; Status DC Polyethylene Glycol 17 gm DAILY PO Last administered on 08/21/25at 08:15; Start 08/15/25 at 09:00; Stop 09/14/25 at 08:59 Docusate Sodium 100 mg BID PRN PO; Start 08/14/25 at 11:00; Stop 09/13/25 at 10:59 Ceftriaxone Sodium 2 gm Q24H IVPB Last administered on 08/21/25at 11:35; Start 08/14/25 at 11:30; Stop 08/24/25 at 11:29 Insulin Human Regular 5 unit TIDAC SQ Last administered on 08/15/25at 07:03; Start 08/14/25 at 17:00; Stop 08/15/25 at 07:24; Status DC Chlordiazepoxide HCl 25 mg Q2H PRN PO Last administered on 08/16/25at 23:38; Start 08/14/25 at 14:30; Stop 08/20/25 at 16:32; Status DC Chlordiazepoxide HCl 50 mg Q1H PRN PO; Start 08/14/25 at 14:30; Stop 08/20/25 at 16:32; Status DC Ondansetron HCl 4 mg Q4H PRN IV Last administered on 08/14/25at 14:17; Start 08/14/25 at 14:30; Stop 08/20/25 at 16:32; Status DC Promethazine HCl 25 mg Q6H PRN PO; Start 08/14/25 at 14:30; Stop 08/20/25 at 16:32; Status DC Acetaminophen 500 mg Q6H PRN PO Last administered on 08/20/25at 08:23; Start 08/14/25 at 14:30; Stop 09/13/25 at 14:29 Thiamine HCl 300 mg DAILY IV Last administered on 08/17/25at 07:46; Start 08/15/25 at 09:00; Stop 08/17/25 at 09:01; Status DC Folic Acid 1 mg DAILY PO Last administered on 08/17/25at 07:46; Start 08/15/25 at 09:00; Stop 08/17/25 at 09:01; Status DC Multivitamins Therapeutic 1 tab DAILY PO Last administered on 08/21/25at 08:16; Start 08/15/25 at 09:00; Stop 09/14/25 at 08:59 Pharmacy Profile Note 1 each PROTOCOL PRN MISC; Start 08/14/25 at 14:30; Stop 08/14/25 at 14:08; Status DC Insulin Glargine 30 units DAILY SQ Last administered on 08/15/25at 08:28; Start 08/15/25 at 09:00; Stop 08/16/25 at 07:19; Status DC Insulin Human Regular 8 unit TIDAC SQ Last administered on 08/15/25at 16:02; Start 08/15/25 at 07:30; Stop 08/15/25 at 22:46; Status DC Diphenhydramine HCl 25 mg ONCE ONCE IM; Start 08/15/25 at 21:00; Stop 08/15/25 at 22:52; Status DC Insulin Human Regular 10 unit TIDAC SQ Last administered on 08/17/25at 16:09; Start 08/16/25 at 07:30; Stop 08/17/25 at 21:12; Status DC Diphenhydramine HCl 25 mg ONCE PRN IV; Start 08/15/25 at 23:00; Stop 08/17/25 at 22:59; Status DC Insulin Glargine 35 units DAILY SQ Last administered on 08/18/25at 07:59; Start 08/16/25 at 09:00; Stop 08/19/25 at 07:35; Status DC Bisacodyl 10 mg DAILY RC Last administered on 08/18/25at 07:58; Start 08/17/25 at 09:00; Stop 08/20/25 at 08:59; Status DC Insulin Human Lispro INSULIN SLIDING SCAL... ACHS SQ; Start 08/16/25 at 21:00; Stop 08/17/25 at 09:31; Status DC Insulin Glargine 5 units BID@0730,2100 SQ Last administered on 08/16/25at 21:21; Start 08/16/25 at 21:00; Stop 08/17/25 at 09:31; Status DC Pantoprazole Sodium 40 mg Q12H IVP Last administered on 08/20/25at 03:53; Start 08/17/25 at 16:30; Stop 08/20/25 at 16:32; Status DC Insulin Human Regular INSULIN SLIDING SCAL... ACHS SQ Last administered on 08/19/25at 21:31; Start 08/17/25 at 16:30; Stop 08/20/25 at 16:32; Status DC Insulin Human Regular 12 unit TIDAC SQ Last administered on 08/18/25at 16:39; Start 08/18/25 at 07:30; Stop 08/18/25 at 20:19; Status DC Vancomycin HCl 1 each AD IV; Start 08/17/25 at 22:00; Stop 08/31/25 at 21:59 Vancomycin HCl 250 ml @ 83.333 mls/ hr ONCE ONCE IV Last administered on 08/17/25at 23:05; Start 08/17/25 at 22:30; Stop 08/18/25 at 01:29; Status DC Vancomycin HCl 250 ml @ 125 mls/hr Q12H IV Last administered on 08/19/25at 09:39; Start 08/18/25 at 09:00; Stop 08/19/25 at 20:54; Status DC Albumin Human 50 ml @ 0 mls/hr BID IV Last administered on 08/21/25at 08:15; Start 08/18/25 at 09:00; Stop 08/23/25 at 08:59 Lidocaine 1 each DAILY TP Last administered on 08/21/25at 10:43; Start 08/19/25 at 09:00; Stop 09/18/25 at 08:59 Lidocaine 1 each ONCE ONCE TP Last administered on 08/18/25at 13:52; Start 08/18/25 at 14:00; Stop 08/18/25 at 14:01; Status DC Diphenhydramine HCl 25 mg ONCE ONCE PO Last administered on 08/18/25at 15:19; Start 08/18/25 at 15:30; Stop 08/18/25 at 15:31; Status DC Insulin Human Regular 16 unit TIDAC SQ Last administered on 08/19/25at 16:47; Start 08/19/25 at 07:30; Stop 08/20/25 at 06:22; Status DC Insulin Glargine 42 units DAILY SQ Last administered on 08/19/25at 09:40; Start 08/19/25 at 09:00; Stop 08/20/25 at 06:22; Status DC Calcium Carbonate 500 tab QID PRN PO Last administered on 08/20/25at 05:10; Start 08/19/25 at 12:00; Stop 08/20/25 at 16:32; Status DC Morphine Sulfate 2 mg Q6H PRN IVP Last administered on 08/19/25at 17:50; Start 08/19/25 at 18:00; Stop 08/20/25 at 16:32; Status DC Cefazolin Sodium 2 gm ONCALL IVP Last administered on 08/20/25at 16:30; Start 08/19/25 at 19:30; Stop 08/21/25 at 08:36; Status DC Vancomycin HCl 250 ml @ 125 mls/hr Q8H IV Last administered on 08/20/25at 22:26; Start 08/19/25 at 21:30; Stop 08/21/25 at 00:23; Status DC Sodium Chloride 500 ml @ 500 mls/hr Q1H IV Last administered on 08/20/25at 00:53; Start 08/20/25 at 00:33; Stop 08/20/25 at 03:16; Status DC Nitroglycerin/ Dextrose 250 ml @ 0 mls/hr PROTOCOL IV Last administered on 08/20/25at 03:12; Start 08/20/25 at 03:30; Stop 08/20/25 at 16:32; Status DC Insulin Glargine 45 units DAILY SQ; Start 08/20/25 at 09:00; Stop 08/20/25 at 16:32; Status DC Insulin Human Regular 17 unit TIDAC SQ; Start 08/20/25 at 07:30; Stop 08/20/25 at 16:32; Status DC Epinephrine HCl 10 mg/Sodium Chloride 250 ml @ 0 mls/hr AD PRN IV; Start 08/20/25 at 08:00; Stop 09/19/25 at 07:59 Norepinephrine Bitartrate 250 ml @ 0 mls/hr AD PRN IV Last administered on 08/21/25at 06:40; Start 08/20/25 at 08:00; Stop 09/19/25 at 07:59 Aminocaproic Acid 22866 mg/Sodium Chloride 480 ml @ 0 mls/hr AD PRN IV; Start 08/20/25 at 08:00; Stop 09/19/25 at 07:59 Cefazolin Sodium 1 gm STK-MED ONCE .ROUTE; Start 08/20/25 at 08:23; Stop 08/20/25 at 08:23; Status DC Heparin Sodium/ Sodium Chloride 500 ml @ As Directed STK-MED ONCE IV; Start 08/20/25 at 08:23; Stop 08/20/25 at 08:24; Status DC Papaverine HCl 60 mg STK-MED ONCE .ROUTE Last administered on 08/20/25at 17:05; Start 08/20/25 at 08:23; Stop 08/20/25 at 08:24; Status DC Epinephrine HCl 10 mg/Sodium Chloride 250 ml @ 0 mls/hr AD PRN IV; Start 08/20/25 at 09:00; Stop 08/20/25 at 09:03; Status DC Norepinephrine Bitartrate 250 ml @ 0 mls/hr AD PRN IV; Start 08/20/25 at 09:00; Stop 08/20/25 at 09:03; Status DC Aminocaproic Acid 78334 mg/Sodium Chloride 480 ml @ 0 mls/hr AD PRN IV; Start 08/20/25 at 09:00; Stop 08/20/25 at 09:03; Status DC Protamine Sulfate 250 mg STK-MED ONCE IV; Start 08/20/25 at 15:44; Stop 08/20/25 at 15:44; Status DC Lidocaine HCl 100 mg STK-MED ONCE .ROUTE; Start 08/20/25 at 15:44; Stop 08/20/25 at 15:44; Status DC Heparin Sodium (Porcine) 10,000 unit STK-MED ONCE .ROUTE; Start 08/20/25 at 15:44; Stop 08/20/25 at 15:44; Status DC Epinephrine HCl 1 mg STK-MED ONCE .ROUTE; Start 08/20/25 at 15:44; Stop 08/20/25 at 15:44; Status DC Sodium Bicarbonate 200 ml @ As Directed STK-MED ONCE .ROUTE; Start 08/20/25 at 15:44; Stop 08/20/25 at 15:44; Status DC Norepinephrine Bitartrate 4 mg STK-MED ONCE IV; Start 08/20/25 at 15:44; Stop 08/20/25 at 15:44; Status DC Propofol 200 mg STK-MED ONCE IV; Start 08/20/25 at 15:45; Stop 08/20/25 at 15:44; Status DC Fentanyl Citrate 1,000 mcg STK-MED ONCE IJ; Start 08/20/25 at 15:45; Stop 08/20/25 at 15:45; Status DC Midazolam HCl 2 mg STK-MED ONCE .ROUTE; Start 08/20/25 at 15:45; Stop 08/20/25 at 15:45; Status DC Rocuronium Lagrange 50 mg STK-MED ONCE .ROUTE; Start 08/20/25 at 15:45; Stop 08/20/25 at 15:45; Status DC Sodium Bicarbonate 400 ml @ As Directed STK-MED ONCE .ROUTE; Start 08/20/25 at 15:46; Stop 08/20/25 at 15:46; Status DC Cefazolin Sodium 1 gm STK-MED ONCE .ROUTE Last administered on 08/20/25at 17:05; Start 08/20/25 at 16:19; Stop 08/20/25 at 16:19; Status DC Vancomycin HCl 250 ml @ As Directed STK-MED ONCE IV Last administered on 08/20/25at 16:40; Start 08/20/25 at 16:40; Stop 08/20/25 at 16:40; Status DC Sodium Chloride 1,000 ml @ 10 mls/hr ONCE IV Last administered on 08/20/25at 22:31; Start 08/20/25 at 17:00; Stop 08/21/25 at 16:59 Sodium Chloride 10 ml Q8H PRN IVP; Start 08/20/25 at 17:00; Stop 09/19/25 at 16:59 Morphine Sulfate 0.5 mg Q2H PRN IV; Start 08/20/25 at 17:00; Stop 08/20/25 at 18:07; Status DC Morphine Sulfate 1 mg Q2H PRN IV; Start 08/20/25 at 17:00; Stop 08/21/25 at 16:59 Acetaminophen 650 mg Q4H PRN RC; Start 08/20/25 at 17:00; Stop 09/19/25 at 16:59 Ondansetron HCl 4 mg Q6H PRN IV; Start 08/20/25 at 17:00; Stop 09/19/25 at 16:59 Sodium Chloride 500 ml @ 0 mls/hr AD IV; Start 08/20/25 at 17:00; Stop 09/19/25 at 16:59 Nitroglycerin/ Dextrose 0 ml @ 0 mls/hr AD IV; Start 08/20/25 at 17:00; Stop 08/23/25 at 16:59 Propofol 100 ml @ 0 mls/hr AD PRN IV; Start 08/20/25 at 17:00; Stop 08/24/25 at 16:59 Norepinephrine Bitartrate 8 mg/ Dextrose 250 ml @ 0 mls/hr AD PRN IV; Start 08/20/25 at 17:00; Stop 08/21/25 at 10:49; Status DC Epinephrine HCl 10 mg/Sodium Chloride 250 ml @ 14.091 mls/ hr AD PRN IV; Start 08/20/25 at 17:00; Stop 08/21/25 at 10:49; Status DC Aminocaproic Acid 47907 mg/Sodium Chloride 310 ml @ 25 mls/hr AD IV; Start 08/20/25 at 17:00; Stop 08/21/25 at 05:23; Status DC Calcium Gluconate 1 gm/Sodium Chloride 60 ml @ 200 mls/hr AD PRN IV Last administered on 08/21/25at 13:17; Start 08/20/25 at 17:00; Stop 09/19/25 at 16:59 Magnesium Sulfate 50 ml @ 12.5 mls/hr AD PRN IV Last administered on 08/21/25at 14:50; Start 08/20/25 at 17:00; Stop 09/19/25 at 16:59 Potassium Chloride 100 ml @ 100 mls/hr AD PRN IV Last administered on 08/21/25at 01:19; Start 08/20/25 at 17:00; Stop 09/19/25 at 16:59 Potassium Phosphate 250 ml @ 42 mls/hr AD PRN IV; Start 08/20/25 at 17:00; Stop 09/19/25 at 16:59 Albumin Human 250 ml @ 0 mls/hr AD PRN IV Last administered on 08/20/25at 22:46; Start 08/20/25 at 17:00; Stop 08/20/25 at 22:46; Status DC Acetaminophen 650 mg Q4H PRN PO; Start 08/20/25 at 17:00; Stop 09/19/25 at 16:59 Insulin Human Regular 100 unit/ Sodium Chloride 100 ml @ 0 mls/hr AD IV Last administered on 08/21/25at 15:00; Start 08/20/25 at 17:00; Stop 08/22/25 at 16:59 Cefazolin Sodium 2 gm Q8H IVPB Last administered on 08/21/25at 13:45; Start 08/20/25 at 22:00; Stop 08/21/25 at 14:01; Status DC Tramadol HCl 25 mg Q6H PRN PO; Start 08/20/25 at 17:00; Stop 08/25/25 at 16:59 Tramadol HCl 50 mg Q6H PRN PO; Start 08/20/25 at 17:00; Stop 08/25/25 at 16:59 Famotidine 20 mg BID IV Last administered on 08/21/25at 08:16; Start 08/20/25 at 21:00; Stop 09/19/25 at 20:59 Sodium Bicarbonate 50 meq AD PRN IV Last administered on 08/21/25at 01:19; Start 08/20/25 at 17:00; Stop 08/23/25 at 16:59 Dextrose 50 ml AD PRN IV; Start 08/20/25 at 17:00; Stop 09/19/25 at 16:59 Glucagon 1 mg AD PRN IM; Start 08/20/25 at 17:00; Stop 09/19/25 at 16:59 Amiodarone HCL/ Dextrose 100 ml @ As Directed STK-MED ONCE .ROUTE; Start 08/20/25 at 16:52; Stop 08/20/25 at 16:52; Status DC Lidocaine HCl 100 mg STK-MED ONCE .ROUTE; Start 08/20/25 at 17:34; Stop 08/20/25 at 17:34; Status DC Morphine Sulfate 0.5 mg Q2H PRN IV; Start 08/20/25 at 18:30; Stop 08/21/25 at 16:59 Heparin Sodium (Porcine) 10,000 unit STK-MED ONCE .ROUTE; Start 08/20/25 at 18:12; Stop 08/20/25 at 18:12; Status DC Insulin Human Regular 300 unit STK-MED ONCE .ROUTE; Start 08/20/25 at 19:39; Stop 08/20/25 at 19:39; Status DC Dexmedetomidine/ Sodium Chloride 400 mcg PROTOCOL IV Last administered on 08/21/25at 08:03; Start 08/20/25 at 20:30; Stop 09/19/25 at 20:29 Magnesium Sulfate 8.12 meq STK-MED ONCE IJ; Start 08/20/25 at 20:17; Stop 08/20/25 at 20:17; Status DC Vasopressin 20 units STK-MED ONCE .ROUTE; Start 08/20/25 at 20:17; Stop 08/20/25 at 20:17; Status DC Amiodarone HCl 360 mg/Dextrose 207.2 ml @ 33.3 mls/hr AD IV; Start 08/20/25 at 21:00; Stop 08/20/25 at 21:05; Status DC Amiodarone HCl 540 mg/Dextrose 310.8 ml @ 16.7 mls/hr [id number] IV Last administered on 08/21/25at 02:09; Start 08/21/25 at 03:00; Stop 09/20/25 at 02:59 Amiodarone HCL/ Dextrose 207.2 ml @ 33.3 mls/hr AD IV Last administered on 08/20/25at 21:24; Start 08/20/25 at 21:30; Stop 08/21/25 at 10:49; Status DC Albumin Human 250 ml @ 0 mls/hr ONCE ONCE IV Last administered on 08/20/25at 00:00; Start 08/20/25 at 00:00; Stop 08/20/25 at 23:58; Status DC Lidocaine HCl/ Dextrose 250 ml @ 0 mls/hr PROTOCOL IV; Start 08/21/25 at 00:00; Stop 09/20/25 at 00:00 Albumin Human 250 ml @ As Directed STK-MED ONCE IV; Start 08/21/25 at 00:03; Stop 08/21/25 at 00:05; Status DC Vancomycin HCl 250 ml @ 125 mls/hr Q8H IV; Start 08/21/25 at 08:00; Stop 08/21/25 at 06:28; Status DC Vancomycin HCl 250 ml @ 125 mls/hr Q8H IV Last administered on 08/21/25at 08:15; Start 08/21/25 at 06:30; Stop 08/21/25 at 08:35; Status DC Vancomycin HCl 250 ml @ 125 mls/hr Q8H IV; Start 08/21/25 at 16:30; Stop 08/31/25 at 16:29 Furosemide 20 mg Q12H IV Last administered on 08/21/25at 11:42; Start 08/21/25 at 11:30; Stop 09/20/25 at 11:29 Acetaminophen 1,000 mg Q6H6 IVPB Last administered on 08/21/25at 11:42; Start 08/21/25 at 12:00; Stop 09/20/25 at 11:59 Heparin Sodium/ Dextrose 250 ml @ 0 mls/hr PROTOCOL IV Last administered on 08/21/25at 12:44; Start 08/21/25 at 11:30; Stop 09/20/25 at 11:29 Iron Sucrose 200 mg DAILY IV Last administered on 08/21/25at 13:52; Start 08/21/25 at 13:00; Stop 08/23/25 at 13:00 YAMILE MONTANO MD Aug 21, 2025 16:26
--- NOTE | 2025-08-21 16:44 | PN ---
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, Impella placement Complete heart block, status post transvenous temporary pacemaker placement Acute hypoxic respiratory failure, NSTEMI, POA Bactermia + Staph Cohni urealyticum DM type 2, with hyperglycemia, HGB A1c of 10.7 Cocaine abuse Tobacco use, current smoker History of CVA INTERVAL HISTORY: Patient seen and examined, in postop CVA unit, she remains intubated, sedated She is on levo and epi along with an Impella at P7 Vent settings 40/50 She continues on lidocaine and amnio for postoperative V-tach She continues on the cefepime and vancomycin, we are pending a vanco trough Urine output at goal but diminished Plan: Follow CT surgeon recs Follow I&Os Wean pressors per protocol Vent management, pending a.m. ABG Daily chest x-ray Antibiotics and following cultures Impella support Critical care time 55 minutes, this time excludes any time spent on education or procedures. REVIEW OF SYSTEMS: 12 point ROS reviewed with patient. Pertinent positives mentioned above. Otherwise negative. PHYSICAL EXAM: GENERAL: alert, weak, awake oriented x 3 HEENT: EOMI, Sclera non icteric, moist mucosa NECK: Supple, no JVD, trachea midline LUNGS: Clear breath sounds bilaterally. No wheezes HEART: TVP Normal S1 and S2, without murmurs ABD: Abdomen soft, nontender. Bowel sounds present EXT: No clubbing cyanosis or edema NEURO: Alert and oriented to person, follows commands Vital Signs (last 8hr) Date Time Temp Pulse Resp B/P (MAP) Pulse Ox O2 Delivery O2 Flow Rate FiO2 08/21/25 16:00 98 Nasal Cannula* 4 36 08/21/25 15:24 80 11 111/77 (88) 97 40 130/70 (90) 08/21/25 15:15 80 16 97 40 145/75 (98) 08/21/25 15:09 81 14 120/74 (89) 96 40 139/73 (95) 08/21/25 15:00 78 15 93 40 152/77 (102) 08/21/25 14:54 81 16 124/75 (91) 95 40 141/75 (97) 08/21/25 14:45 80 14 97 40 147/75 (99) 08/21/25 14:39 81 15 131/84 (100) 97 40 144/77 (99) 08/21/25 14:30 81 16 96 40 154/77 (102) 08/21/25 14:24 78 17 130/81 (97) 95 40 139/75 (96) 08/21/25 14:15 79 17 95 40 152/78 (102) 08/21/25 14:09 80 13 119/72 (88) 94 40 139/72 (94) 08/21/25 14:00 81 43 94 40 143/74 (97) 08/21/25 13:54 79 27 126/84 (98) 94 40 142/76 (98) 08/21/25 13:45 63 29 95 40 109/61 (77) 08/21/25 13:39 79 18 115/66 (82) 96 40 122/67 (85) 08/21/25 13:30 80 21 97 40 135/69 (91) 08/21/25 13:24 83 22 117/67 (84) 97 40 125/67 (86) 08/21/25 13:15 80 22 97 40 133/69 (90) 08/21/25 13:09 80 20 114/76 (89) 97 40 124/67 (86) 08/21/25 13:00 80 17 96 40 129/70 (89) 08/21/25 12:54 80 16 114/74 (87) 96 40 126/68 (87) 08/21/25 12:45 80 11 93 40 131/70 (90) 08/21/25 12:39 85 15 115/72 (86) 92 40 123/68 (86) 08/21/25 12:30 80 17 91 40 117/64 (81) 08/21/25 12:26 81 18 112/68 (83) 92 40 115/65 (82) 08/21/25 12:15 80 18 88 40 102/62 (75) 08/21/25 12:09 80 17 117/78 (91) 92 40 125/68 (87) 08/21/25 12:00 79 11 88 40 123/65 (84) 08/21/25 12:00 98 Aerosol Mask+ 15 40 08/21/25 11:54 78 17 99/53 (68) 92 40 104/66 (79) 08/21/25 11:45 81 15 92 40 108/69 (82) 08/21/25 11:39 80 16 112/67 (82) 94 38 123/69 (87) 08/21/25 11:30 79 21 96 38 105/76 (86) 08/21/25 11:25 78 21 110/70 (83) 96 38 125/69 (87) 08/21/25 11:15 79 52 97 38 121/70 (87) 08/21/25 11:10 80 14 75/38 (50) 95 38 89/61 (70) 08/21/25 11:00 81 14 97 38 123/69 (87) 08/21/25 10:54 79 14 112/66 (81) 97 38 118/69 (85) 08/21/25 10:45 79 10 94 38 123/67 (85) 08/21/25 10:39 73 17 99/54 (69) 94 38 101/60 (74) 08/21/25 10:30 80 21 92 38 112/64 (80) 08/21/25 10:24 80 18 103/68 (80) 93 38 108/64 (79) 08/21/25 10:15 78 15 93 38 109/64 (79) 08/21/25 10:09 78 20 105/67 (80) 94 38 102/63 (76) 08/21/25 10:00 80 17 95 38 107/63 (78) 08/21/25 09:54 81 24 103/57 (72) 95 38 100/61 (74) 08/21/25 09:45 80 21 94 38 109/65 (80) 08/21/25 09:39 80 42 102/69 (80) 90 38 102/60 (74) 08/21/25 09:30 82 21 96 38 111/65 (80) 08/21/25 09:24 82 33 95/67 (76) 90 38 97/59 (72) 08/21/25 09:15 82 19 94 38 104/63 (77) 08/21/25 09:00 79 13 96 40 113/67 (82) 08/21/25 08:54 79 10 100/66 (77) 95 40 104/64 (77) 08/21/25 08:53 80 20 Aerosol, Face Mask 10.0 40 08/21/25 08:50 80 20 10.0 40 08/21/25 08:45 80 27 97 40 108/65 (79) LABS: Hematology Labs: Test 08/21/25 03:34 Range/Units White Blood Count 14.3 #H 4.8-10.8 K/uL Red Blood Count 2.48 L 4.00-5.50 MIL/uL Hemoglobin 7.4 L 12.0-16.0 g/dL Hematocrit 21.8 L 36-48 % Mean Corpuscular Volume 87.9 79-99 fL Mean Corpuscular Hemoglobin 29.8 27.0-33.0 pg Mean Corpuscular Hemoglobin Concent 33.9 32.0-36.0 g/dL Red Cell Distribution Width 15.8 H 11.0-15.5 % Platelet Count 120 L 130-400 K/uL Mean Platelet Volume 11.7 H 7.5-10.5 fL Nucleated Red Blood Cells 4.7 H 0.0-0.19 % Chemistry Labs: Test 08/21/25 15:40 08/21/25 13:16 08/21/25 03:34 08/20/25 21:09 Range/Units Whole Blood Glucose 168 H 70-110 MG/DL Magnesium Level 1.90 1.80-2.40 mg/dL Sodium Level 150 H 136-145 mmol/L Potassium Level 3.9 3.5-5.1 mmol/L Chloride Level 113 H 101-111 mmol/L Carbon Dioxide Level 26 21-32 mmol/L Blood Urea Nitrogen 13 7-18 mg/dL Creatinine 0.7 0.5-1.0 mg/dL Glomerular Filtration Rate Calc 100 >90 mL/min Random Glucose 225 H 70-105 mg/dL Total Calcium 8.9 8.5-10.1 mg/dL Ionized Calcium 1.18 1.15-1.33 MMOL/L Total Bilirubin 0.5 0.2-1.0 mg/dL Aspartate Amino Transf (AST/SGOT) 59 H 10-37 U/L Alanine Aminotransferase (ALT/SGPT) 22 12-78 U/L Alkaline Phosphatase 66 # 50-136 U/L B-Type Natriuretic Peptide 359 H 0-100 pg/mL Total Protein 5.1 L 6.0-8.3 g/dL Albumin 2.5 L 3.5-5.0 g/dL Phosphorus Level 4.9 2.5-4.9 mg/dL Test 08/20/25 04:40 Range/Units Triglycerides Level 58 30-200 mg/dL Cholesterol Level 83 # <200 mg/dL LDL Cholesterol 31 0-99 mg/dL HDL Cholesterol 39 35-85 mg/dL Coagulation Labs: Test 08/21/25 03:34 Range/Units Prothrombin Time 12.5 H 9.6-11.6 SEC Prothromb Time International Ratio 1.20 H 0.85-1.15 Activated Partial Thromboplast Time 30.8 # 26.3-35.5 SEC Fibrinogen 424 H 180-350 mg/dL DIAGNOSTICS / RADIOLOGY RESULTS: [facility] [address] [place] [address] IMAGING REPORT Signed PATIENT: LUL ARTHUR MR#: [id number] : 1965 SEX: F AGE: 60 LOCATION: 2CV ORDER 2300 STATUS: ADM IN REPORT#: [id number] SERVICE 0400 REASON: s/p CABG ORDERING PHYSICIAN: DIA KESSLER MD PROCEDURE: CXR1VW - CHEST 1VW EXAM: CR Chest, 1 view CLINICAL HISTORY: Status post CABG. COMPARISON: Chest radiograph dated 08/21/2025, 6:36 IST. FINDINGS: The endotracheal tube tip is 4.8 cm above the jerica. The gastric tube tip overlies the proximal to mid body of the stomach. The right transjugular Jenn[place]-Guillaume catheter tip overlies the right pulmonary artery. Status poststernotomy. Drainage tubes overlie the thorax. Mild cardiomegaly and perihilar vascular congestion. Small pleural effusion and lower zone airspace disease on the left side. No pneumothorax. No acute osseous abnormality. IMPRESSION: 1. Small left pleural effusion and left lower zone airspace disease. 2. Mild cardiomegaly and perihilar vascular congestion. 3. Appropriately positioned endotracheal tube, gastric tube, and Jenners-Guillaume catheter. 4. Status post sternotomy with drainage tubes overlying the thorax. 5. No pneumothorax. 6. No acute osseous abnormality. /[place] DICTATED BY: DIONTE LEBRON MD DATE: 08/21/251714 ELECTRONICALLY SIGNED BY: DIONTE LEBRON MD DATE: 08/21/251714 PLAN NEURO: Minimize central acting medications as possible. Fall Precautions. Well lighted room through the day and minimize interruptions through the night to prevent acute delirium. PULMONARY: Supplemental 02 as needed Titrate Fio2 to keep Spo2 > or = 90% DuoNebs and CPT as needed IS hourly while awake for pulmonary hygiene CARDIOVASCULAR: Follow hemodynamics. Titrate vasopressor to keep MAP >65 or systolic blood pressure >95mmHg DIPS: Dopamine weaned off Heparin gtt LINES: Peripheral IV CVP Impella GI & NUTRITION: Continue nutritional support Aspirations precautions Prokinetic agents and laxatives as needed Clear liquid diet as tolerated KIDNEYS & ELECTROLYTES: Strict monitoring of intake and output Daily weights Avoid nephrotoxic agents Monitor electrolytes and replace as needed Goal urine output of 30mL/hr or 0.5mL/kg/hr ENDOCRINE: Maintain blood glucose between 100-180 at all times. Insulin sliding scale for blood glucose management INFECTIOUS DISEASE: Trend temperature. Astudillo-culture if febrile. Micro: [ ] Urine culture - Ecoli Blood culture - Staph cohnii urealyticum Antibiotics: [ ] Rocephin Vancomycin HEMATOLOGY & COAGULATION: Monitor H&H. Keep Hgb > 7 Transfuse 1 unit of PRBC for Hgb < 7 Transfuse 1 pack of platelets of platelets < 20, 000 Watch for any signs and symptoms of bleeding SKIN: Pressure ulcer prevention per facility protocol Rehab: PT/OT Prophylaxis: GI: PPI DVT: SCDs patient on heparin drip Code Status: Full Resuscitation Disposition: ICU ATTESTATION BY PHYSICIAN I have seen and examined the patient. I reviewed the documentation, medical decision making, and treatment plan as noted by the resident provider above. I agree with the findings and plan of care. Ishan Santamaria MD, LAKSHMI MD Aug 21, 2025 16:44
[2025-08-21 19:08] LABS: ABG BASE EXCESS 2.8 mmol/L (-2.0-3.0); ABG HCO3 26.3 mmol/L (21.0-28.0); ABG OXYGEN SATURATION 93.3 % (94.0-98.0); ABG PCO2 36 mmHg (32-45); ABG PH 7.486 (7.350-7.450); CARBON MONOXIDE 0.8 % (0.5-1.5); DEVICE COMMENT A LINE; PO2, ARTERIAL BG 68.6 mmHg (83.0-108.0); TEMPERATURE, CELSIUS BG 37.0 CELSIUS (35.5-37.0); VENT MODE, BG 5LNC (ROOM AIR)
[2025-08-21 19:25] LABS: CREATININE 0.5 mg/dL (0.5-1.0); GLOMERULAR FILTR. RATE CALC 109.0 mL/min (>90); GLUCOSE,RANDOM 185.0 mg/dL (70-105); SODIUM SERUM 147.0 mmol/L (136-145); UREA NITROGEN, BLOOD 14.0 mg/dL (7-18)
--- NOTE | 2025-08-21 22:49 | PN ---
SUBJECTIVE: The patient is postop day #1 from a coronary artery bypass grafting using a CP Impella support. The patient is extubated and very emotional (the patient is shouting and crying because she wants water). OBJECTIVE: VITAL SIGNS: Reveal a pulse of 80, blood pressure is 123/68, oxygen saturation 97% on face mask oxygen. HEENT: Normocephalic, atraumatic. Extraocular movements intact. She has face mask oxygen on. She has a right cervical [place]-Guillaume catheter. Cardiac index of 2.1 L per minute per meter squared. CHEST: Her sternal wound was bandaged. Her chest tube was in place with 480 mL of output since the time of surgery yesterday. She has a left radial art line. ABDOMEN: Her abdomen reveals moderate obesity with positive bowel sounds and she has a Coombs catheter in her bladder. EXTREMITIES: She has SCDs. DIAGNOSTIC DATA: Her hemoglobin this morning was 7.4. Her chest x-ray reveals mild central pulmonary vascular congestion. She has a right femoral temporary pacing lead and a right femoral CP Impella. Her Impella is set at P7 giving her 3 L per minute of flow. ASSESSMENT AND PLAN: * Status post coronary artery bypass grafting using a CP Impella support. Begin aspirin, Lasix, and heparin drip per acute coronary syndrome protocol. We will discontinue her lidocaine drip as she has had no further arrhythmias. We will continue her amiodarone drip. Wean off of epinephrine and Levophed drips. * Postoperative acute pulmonary insufficiency. Attempt to wean face mask oxygen to nasal cannula oxygen to maintain oxygen saturation greater than 90%. * Hypercholesterolemia. Begin Lipitor 80 mg p.o. at bedtime, low cholesterol, cardiac diet. * Deep venous thrombosis prophylaxis. SCDs to the lower extremities. In addition, heparin drip is being started for Impella catheter. Time spent 30 minutes. The patient is critically ill in ICU. TID: [id number] RECEIPT: [id number]
[2025-08-22] VITALS (99 sets, daily range): BP systolic 90–172; BP diastolic 44–90; PULSE 61–84; RESP 4–45; TEMP 97.2–98.6; O2SAT 96–99
[2025-08-22 01:22] LABS: ABG BASE EXCESS 2.9 mmol/L (-2.0-3.0); ABG HCO3 25.9 mmol/L (21.0-28.0); ABG OXYGEN SATURATION 94.5 % (94.0-98.0); ABG PCO2 33 mmHg (32-45); ABG PH 7.517 (7.350-7.450); CARBON MONOXIDE 0.7 % (0.5-1.5); PO2, ARTERIAL BG 72.7 mmHg (83.0-108.0); TEMPERATURE, CELSIUS BG 37.0 CELSIUS (35.5-37.0); VENT MODE, BG 5LNC (ROOM AIR)
[2025-08-22 01:50] LABS: IMMATURE GRANULOCYTE ABSOLUTE 0.16 K/uL (0-1); NUCLEATED RED BLOOD CELLS 1.8 % (0.0-0.19); PLATELET COUNT (AUTO) 108 K/uL (130-400); RED BLOOD CELL COUNT(AUTO) 2.22 MIL/uL (4.00-5.50); RED CELL DISTRIBUTION WIDTH 17.3 % (11.0-15.5); WHITE BLOOD COUNT (AUTO) 16.2 K/uL (4.8-10.8)
[2025-08-22 02:05] LABS: ASPARTATE AMINOTRANSFERASE 154.0 U/L (10-37); CREATININE 0.5 mg/dL (0.5-1.0); GLOMERULAR FILTR. RATE CALC 109.0 mL/min (>90); GLUCOSE,RANDOM 154.0 mg/dL (70-105); SODIUM SERUM 146.0 mmol/L (136-145); TOTAL PROTEIN, SERUM 5.1 g/dL (6.0-8.3); UREA NITROGEN, BLOOD 14.0 mg/dL (7-18)
--- NOTE | 2025-08-22 07:30 | NUR ---
Provider Update Dr. Guthrie was present at bedside at change of shift for an update. Notified Dr. Guthrie that the Dorsalis Pedis pulses are absent but the Popliteal and Posterior Tibial pulses are present by doppler. Ultrasound was suggested to Dr. Guthrie but he stated that there is no need. Dr. Guthrie stated to wean off pressors as tolerated and to discontinue LR IV fluids. Dr. Guthrie stated that the transvenous temp. pacemaker may come out if cardio is on board with it. MITZY Juárez was made aware and present during these findings.
[2025-08-22 09:03] LABS: INR 1.23 (0.85-1.15)
[2025-08-22] MEDS: FAMOTIDINE 20MG TAB PO SCH (09:14)
--- NOTE | 2025-08-22 10:06 | PN ---
[facility] PROGRESS NOTE Date of Service: Aug 22, 2025 Time of Service: 10:06 SUBJECTIVE: This is a 60-year-old female with underlying history of obesity, coronary artery disease, poorly controlled type 2 diabetes mellitus, history of anemia, history of cocaine use, tobacco use disorder, history of CVA in 2008, who presented to the ER for further evaluation of severe substernal chest pain and shortness of breadth. Patient reports having history of cocaine use with last use of cocaine yesterday. She reports having severe substernal chest pain that started today in it has been associated with dizziness, and generalized malaise. Pain is 10/1 0 in severity. Patient denies any syncope or fall. She has been having lightheadedness with ambulation. She has not been able to follow up with Cardiology as outpatient. She has a previous history of abnormal CT coronary angiography when she was hospitalized in 04/2025 and she was treated medically. With regards to type 2 diabetes mellitus, she reports being on metformin as ou tpatient. On presentation to the hospital, patient was noted to be hypotensive with blood pressure of 80/60 with heart rate of 40 with EKG showing complete heart block. [place] [address], hemoglobin 12.4, platelet count of 638054. BMP showed sodium of 133, potassium 4.8, chloride of 99, BUN of 21, creatinine 1.0, blood glucose of 403, [place] [address]. Chest x-ray showed no acute infiltrates. Patient will be admitted for further management of cardiogenic shock, NSTEMI, complete heart block with history of poorly controlled type 2 diabetes mellitus. Patient will be emergently taken to the [facility] for cardiac catheterization/ PCI and tentative plan for MCS support. Patient will be admitted to intensive care unit and she remains critically ill. 08/14 patient remains critically ill requiring Impella and dopamine support. UDS has demonstrated benzos and cocaine 08/15 patient remains on Impella 08/16 patient appears to be resting comfortably in bed. She remains on Impella and dopamine support. She reports she would like to be bathed and wants her hair combed significant and she is feeling better 08/17 patient is on GI soft diet tolerating well. She remains on Impella support 08/18 patient is resting comfortably in bed. She remains on Impella. Tolerating oral intake. 08/19 hemoglobin dropped to 6.5 from 7.0-7.5 yesterday. I agree with transfusing 1 unit PRBC. Patient remains on Impella. Patient is resting comfortably in bed. 08/20 patient is resting comfortably in bed. She remains on Impella support pending recovery for CABG. 08/21 patient underwent CABG x3 yesterday, no complications reported patient remains on Impella the patient is on norepinephrine, amiodarone, dopamine, insulin drip 08/22 postop day 2. From CABG x3. Patient does awaken to verbal stimulation and states she has some chest pain and slight shortness for breath she feels the pain as incisional from her open heart procedure. He is on p.o. amiodarone and being weaned off norepinephrine. REVIEW OF SYSTEMS CONSTITUTIONAL: generalized fatigue, malaise NEUROLOGICAL: Denies headache, amaurosis fugax, motor weakness, sensory deficit, vertigo/spinning sensation, gait abnormalities, or tremors. ENT: No hearing loss, otalgia, otorrhea, rhinitis, rhinorrhea, hoarseness, or sore throat. CARDIOVASCULAR: chest pain, Shortness of breath, PULMONARY: Denies any shortness of breath, cough, phlegm/sputum, hemoptysis, pleuritic chest pain. SLEEP: Denies morning headaches, daytime somnolence or napping. Denies difficulty falling asleep, staying asleep, waking from sleep. Denies knowledge of snoring. GASTROINTESTINAL: Reports having nausea, Denies any type of dysphagia to either liquids or solids. Denies vomiting, pyrosis, early satiety, abdominal pain, diarrhea, constipation, or changes in stool consistency or caliber. Denies coffee-ground emesis, hematemesis, hematochezia, or melanotic stools. GENITOURINARY: Denies frequency, urgency, nocturia, hematuria or incontinence (Storage/Irritative symptoms.) Low urinary stream, straining to void, urinary intermittency or hesitancy, splitting of the voiding stream, terminal dribbling. ENDOCRINOLOGIC: Denies polyuria, polydipsia, polyphagia or heat/cold intolerances. HEMATOLOGIC: Denies thrombophilia/previous clots, or coagulopathy/bleeding disorders. ONCOLOGIC: Denies personal history of malignancy. DERMATOLOGIC: Denies rashes or pruritus. PSYCHIATRIC: Denies any suicidal or homicidal ideation. Denies hallucinations. PHYSICAL EXAM GENERAL APPEARANCE: The patient is awake, appears ill and in mild distress NEUROLOGICAL: Cranial nerves II-XII grossly intact. Motor is 5/5 in bilateral upper and lower extremities proximal to distal. No sensory deficits. HEENT: Face is symmetric. Pupils are equal and reactive. Extraocular movements are intact. NECK: Supple. No JVD. No thyromegaly. No submental, submandibular, pre-/posta uricular, occipital or supraclavicular lymphadenopathy. CHEST: Normal chest expansion. No Telemetry. LUNGS: minimal crackles noted of the bilateral lung bases CARDIOVASCULAR: Regular. S1 and S2 normal. No appreciable rubs, murmurs or gallops. ABDOMEN: Soft, nontender, and nondistended. There is no rebound, voluntary guarding, or rigidity. : Deferred. No Coombs. EXTREMITIES: trace edema noted of the bilateral lower extremities SKIN: No skin breakdown. Vital Signs (last 8hr) Date Time Temp Pulse Resp B/P (MAP) Pulse Ox O2 Delivery O2 Flow Rate FiO2 08/22/25 07:59 20 N/Cannula Low lpm 5.0 40 08/22/25 06:45 80 19 111/61 (78) 97 40 139/78 (98) 08/22/25 06:30 80 19 114/62 (79) 97 40 135/68 (90) 08/22/25 06:15 80 23 115/66 (82) 96 40 145/79 (101) 08/22/25 06:00 80 19 121/68 (85) 96 40 149/81 (103) 08/22/25 05:45 80 22 123/68 (86) 95 40 125/73 (90) 08/22/25 05:30 80 20 123/73 (90) 96 40 154/82 (106) 08/22/25 05:15 80 19 114/65 (81) 96 40 145/83 (103) 08/22/25 05:00 80 17 113/67 (82) 97 40 141/80 (100) 08/22/25 04:45 80 18 117/67 (84) 97 40 136/78 (97) 08/22/25 04:30 80 18 118/65 (82) 97 40 143/78 (99) 08/22/25 04:15 80 20 118/65 (82) 96 40 149/84 (105) 08/22/25 04:00 97 Nasal Cannula* 5 40 08/22/25 04:00 97.5 80 24 118/70 (86) 96 40 143/80 (101) 08/22/25 03:45 80 25 119/53 (75) 96 40 142/78 (99) 08/22/25 03:30 80 22 112/71 (85) 95 40 137/75 (95) 08/22/25 03:24 80 24 112/71 (85) 96 40 144/80 (101) 08/22/25 03:15 80 27 90/55 (67) 97 40 140/75 (96) 08/22/25 03:00 80 21 107/55 (72) 97 40 136/74 (94) 08/22/25 02:45 79 23 103/54 (70) 96 40 133/73 (93) 08/22/25 02:30 80 17 110/52 (71) 99 40 136/74 (94) 08/22/25 02:15 80 18 109/45 (66) 99 40 133/72 (92) LABS: Laboratory: Test 08/22/25 07:48 08/22/25 07:45 08/22/25 06:54 08/22/25 01:40 Range/Units Whole Blood Glucose 153 H 70-110 MG/DL Prothrombin Time 12.8 H 9.6-11.6 SEC Prothromb Time International Ratio 1.23 H 0.85-1.15 Activated Partial Thromboplast Time > 139.0 *H 26.3-35.5 SEC Fibrinogen 541 *H 180-350 mg/dL Hemoglobin 8.5 #L 12.0-16.0 g/dL Hematocrit 24.9 #L 36-48 % White Blood Count 16.2 H 4.8-10.8 K/uL Red Blood Count 2.22 L 4.00-5.50 MIL/uL Mean Corpuscular Volume 88.3 79-99 fL Mean Corpuscular Hemoglobin 30.2 27.0-33.0 pg Mean Corpuscular Hemoglobin Concent 34.2 32.0-36.0 g/dL Red Cell Distribution Width 17.3 H 11.0-15.5 % Platelet Count 108 L 130-400 K/uL Mean Platelet Volume 11.7 H 7.5-10.5 fL Immature Granulocyte % (Auto) 1.0 0-1 % Neutrophils (%) (Auto) 69.9 40.0-77.0 % Lymphocytes (%) (Auto) 18.3 L 21.0-51.0 % Monocytes (%) (Auto) 10.2 3.0-13.0 % Eosinophils (%) (Auto) 0.4 0.0-8.0 % Basophils (%) (Auto) 0.2 0.0-5.0 % Neutrophils # (Auto) 11.3 H 1.8-7.7 K/uL Lymphocytes # (Auto) 3.0 1.0-4.8 K/uL Monocytes # (Auto) 1.7 H 0.1-1.0 K/uL Eosinophils # (Auto) 0.07 0.00-0.70 K/uL Basophils # (Auto) 0.04 0.00-0.20 K/uL Absolute Immature Granulocyte (auto 0.16 0-1 K/uL Nucleated Red Blood Cells 1.8 H 0.0-0.19 % Sodium Level 146 H 136-145 mmol/L Potassium Level 3.9 3.5-5.1 mmol/L Chloride Level 108 101-111 mmol/L Carbon Dioxide Level 26 21-32 mmol/L Blood Urea Nitrogen 14 7-18 mg/dL Creatinine 0.5 0.5-1.0 mg/dL Glomerular Filtration Rate Calc 109 >90 mL/min Random Glucose 154 H 70-105 mg/dL Total Calcium 8.3 L 8.5-10.1 mg/dL Ionized Calcium 1.13 L 1.15-1.33 MMOL/L Magnesium Level 1.90 1.80-2.40 mg/dL Total Bilirubin 0.7 # 0.2-1.0 mg/dL Aspartate Amino Transf (AST/SGOT) 154 H 10-37 U/L Alanine Aminotransferase (ALT/SGPT) 24 12-78 U/L Alkaline Phosphatase 57 50-136 U/L Total Protein 5.1 L 6.0-8.3 g/dL Albumin 2.4 L 3.5-5.0 g/dL Test 08/22/25 01:20 08/21/25 14:54 08/21/25 07:20 08/21/25 03:34 Range/Units Blood Gas Specimen Type Arterial Arterial Blood pH 7.517 H 7.350-7.450 Arterial Blood Partial Pressure CO2 33 32-45 mmHg Arterial Blood Partial Pressure O2 72.7 L 83.0-108.0 mmHg Arterial Blood HCO3 25.9 21.0-28.0 mmol/L Arterial Blood Oxygen Saturation 94.5 94.0-98.0 % Arterial Blood Base Excess 2.9 -2.0-3.0 mmol/L Hemoglobin (Blood Gas) 7.1 L 12.0-16.0 g/dL Sodium (Blood Gas) 138 136-145 MMOL/L Bedside Potassium (Blood Gas) 4.0 3.4-4.5 MMOL/L Bedside Chloride (Blood Gas) 107 98-107 MMOL/L Bedside Glucose (Blood Gas) 151 H 65-95 MG/DL Bedside Ionized Calcium (Blood Gas) 1.16 1.15-1.33 MMOL/L Bedside Lactic Acid (Blood Gas) 1.35 H 0.36-0.75 MMOL/L Blood Gas Temperature 37.0 35.5-37.0 CELSIUS Blood Gas Flow-by 5.00 0.00-15.00 L/min Blood Gas Vent Mode 5LNC ROOM AIR FiO2 40.0 % Blood Gas Specimen Comment FAUSTO SWANSON Vancomycin Level Trough 12.1 # 10.0-20.0 UG/ML Blood Gas Respiration Rate 4.0 min. Blood Gas Tidal Volume 650 ml Blood Gas PEEP 5 cm H2O B-Type Natriuretic Peptide 359 H 0-100 pg/mL Test 08/20/25 21:09 Range/Units Phosphorus Level 4.9 2.5-4.9 mg/dL Current Medications Medications (Trade) Dose Ordered Sig/Elmer Route PRN Reason Start Time Stop Time Status Last Admin Dose Admin Acetaminophen (TYLenol 325MG TAB) 650 mg Q4H PRN PO Temp >38.3C(AFTER EXTUBATION) 08/20/25 17:00 09/19/25 16:59 Acetaminophen (TYLenol 325MG TAB) 650 mg Q6H PRN PO MILD PAIN (1-3) 08/13/25 16:30 09/12/25 16:29 08/20/25 01:28 650 MG Acetaminophen (TYLenol 500MG TAB) 500 mg Q6H PRN PO TEMP < 101.1 AND/OR HEADACHE 08/14/25 14:30 09/13/25 14:29 08/20/25 08:23 500 MG Acetaminophen (TYLenol 650MG SUPPOSITORY) 650 mg Q4H PRN RC Temp >38.3C WHILE INTUBATED 08/20/25 17:00 09/19/25 16:59 Acetaminophen (acetaMINOPHEN 1,000MG/100ML) 1,000 mg Q6H6 IVPB 08/21/25 12:00 09/20/25 11:59 08/22/25 05:35 1,000 MG Albumin Human 50 ml @ 0 mls/hr BID IV 08/18/25 09:00 08/23/25 08:59 08/22/25 09:14 100 MLS/HR Albumin Human 250 ml @ 0 mls/hr AD PRN IV IF HEMODYNAMICALLY UNSTABLE 08/20/25 17:00 08/20/25 22:46 DC 08/20/25 22:46 0 MLS/HR Aminocaproic Acid 30971 mg/Sodium Chloride 310 ml @ 25 mls/hr AD IV 08/20/25 17:00 08/21/25 05:23 DC Aminocaproic Acid 10916 mg/Sodium Chloride 480 ml @ 0 mls/hr AD PRN IV BLEEDING CONTROL 08/20/25 08:00 09/19/25 07:59 Aminocaproic Acid 28973 mg/Sodium Chloride 480 ml @ 0 mls/hr AD PRN IV BLEEDING CONTROL 08/20/25 09:00 08/20/25 09:03 DC Amiodarone HCl (pacERONE 200MG) 200 mg BID PO 08/22/25 09:00 08/29/25 21:00 08/22/25 09:40 200 MG Amiodarone HCl 360 mg/Dextrose 207.2 ml @ 33.3 mls/hr AD IV 08/20/25 21:00 08/20/25 21:05 DC Amiodarone HCl 540 mg/Dextrose 310.8 ml @ 16.7 mls/hr [id number] IV 08/21/25 03:00 09/20/25 02:59 08/21/25 20:12 16.7 MLS/HR Amiodarone HCL/ Dextrose 207.2 ml @ 33.3 mls/hr AD IV 08/20/25 21:30 08/21/25 10:49 DC 08/20/25 21:24 33.3 MLS/HR Aspirin (Aspirin 81mg Chew Tab) 81 mg DAILY PO 08/14/25 09:00 09/13/25 08:59 08/22/25 09:40 81 MG Atorvastatin Calcium (LIPItor 40MG) 40 mg HS PO 08/13/25 21:00 09/12/25 20:59 08/21/25 20:17 40 MG Bisacodyl (DulcoLAX) 10 mg DAILY RC 08/17/25 09:00 08/20/25 08:59 DC 08/18/25 07:58 10 MG Calcium Carbonate (Tums 500 Mg Chew Tab) 500 tab QID PRN PO HEARTBURN 08/19/25 12:00 08/20/25 16:32 DC 08/20/25 05:10 1 TAB Calcium Gluconate 1 gm/Sodium Chloride 60 ml @ 200 mls/hr AD PRN IV HYPOCALCEMIA 08/20/25 17:00 09/19/25 16:59 08/22/25 04:15 200 MLS/HR Cefazolin Sodium (Ancef) 2 gm ONCALL IVP 08/19/25 19:30 08/21/25 08:36 DC 08/20/25 16:30 2 GM Cefazolin Sodium (Ancef) 2 gm Q8H IVPB 08/20/25 22:00 08/21/25 14:01 DC 08/21/25 13:45 2 GM Ceftriaxone Sodium (Rocephin 2gm Inj) 2 gm Q24H IVPB 08/14/25 11:30 08/24/25 11:29 08/21/25 11:35 2 GM Chlordiazepoxide HCl (LIBrium 25 MG CAP) 25 mg Q2H PRN PO ALCOHOL WITHDRAWAL PROTOCOL 08/14/25 14:30 08/20/25 16:32 DC 08/16/25 23:38 25 MG Chlordiazepoxide HCl (LIBrium 25 MG CAP) 50 mg Q1H PRN PO ALCOHOL WITHDRAWAL PROTOCOL 08/14/25 14:30 08/20/25 16:32 DC Dexmedetomidine/ Sodium Chloride (PRECEdex 400MCG/ 100ML-NS) 400 mcg PROTOCOL IV 08/20/25 20:30 09/19/25 20:29 08/22/25 00:35 400 MCG Dextrose (D50w) 50 ml AD PRN IV HYPOGLYCEMIA PROTOCOL 08/20/25 17:00 09/19/25 16:59 Dextrose (D50w) 50 ml AD PRN IV HYPOGLYCEMIA PROTOCOL 08/13/25 20:00 08/20/25 22:03 DC Diphenhydramine HCl (BENAdryl INJ) 25 mg ONCE PRN IV ITCHING 08/15/25 23:00 08/17/25 22:59 DC Docusate Sodium (COLace 100MG CAP) 100 mg BID PRN PO CONSTIPATION 08/14/25 11:00 09/13/25 10:59 Dopamine HCl/ Dextrose 250 ml @ 0 mls/hr PROTOCOL IV 08/13/25 16:00 09/12/25 15:59 08/16/25 16:41 3 MLS/HR Epinephrine HCl 10 mg/Sodium Chloride 250 ml @ 14.091 mls/ hr AD PRN IV POST-OP CARDIOVASCULAR ORDERS 08/20/25 17:00 08/21/25 10:49 DC Epinephrine HCl 10 mg/Sodium Chloride 250 ml @ 0 mls/hr AD PRN IV TITRATE 08/20/25 08:00 09/19/25 07:59 08/22/25 04:22 6.8 MLS/HR Epinephrine HCl 10 mg/Sodium Chloride 250 ml @ 0 mls/hr AD PRN IV TITRATE 08/20/25 09:00 08/20/25 09:03 DC Famotidine (Pepcid 20mg Vial) 20 mg BID IV 08/20/25 21:00 08/22/25 08:20 DC 08/21/25 20:17 20 MG Famotidine (Pepcid 20mg Tab) 20 mg BID PO 08/22/25 09:00 09/21/25 08:59 08/22/25 09:14 20 MG Folic Acid (FOLic ACID 1 MG TABLET) 1 mg DAILY PO 08/15/25 09:00 08/17/25 09:01 DC 08/17/25 07:46 1 MG Furosemide (LASix 20MG VIAL) 20 mg Q12H IV 08/21/25 11:30 09/20/25 11:29 08/21/25 22:48 20 MG Glucagon (Glucagon 1mg Kit) 1 mg AD PRN IM HYPOGLYCEMIA PROTOCOL 08/20/25 17:00 09/19/25 16:59 Glucagon (Glucagon 1mg Kit) 1 mg AD PRN IM HYPOGLYCEMIA PROTOCOL 08/13/25 20:00 08/21/25 10:49 DC Heparin Sodium (Porcine) (HEParin 5,000 UNIT VIAL) *calculation based on ACTUAL B... AD PRN IV HEPARIN PROTOCOL 08/13/25 16:30 08/20/25 16:32 DC 08/17/25 04:46 3,175 UNIT Heparin Sodium/ Dextrose 250 ml @ 0 mls/hr PROTOCOL IV 08/21/25 11:30 09/20/25 11:29 08/22/25 08:30 12.2 MLS/HR Heparin Sodium/ Dextrose 250 ml @ 0 mls/hr Q6H IV 08/13/25 16:30 08/20/25 16:32 DC 08/19/25 22:03 11.78 MLS/HR Insulin Glargine (LANtus 100 UNITS/ML 10 ML VIAL) 5 units BID@0730,2100 SQ 08/16/25 21:00 08/17/25 09:31 DC 08/16/25 21:21 5 UNITS Insulin Glargine (LANtus 100 UNITS/ML 10 ML VIAL) 10 units HS SQ 08/13/25 21:00 08/14/25 06:16 DC 08/13/25 20:21 10 UNITS Insulin Glargine (LANtus 100 UNITS/ML 10 ML VIAL) 20 units DAILY SQ 08/14/25 09:00 08/15/25 07:24 DC 08/14/25 08:01 20 UNITS Insulin Glargine (LANtus 100 UNITS/ML 10 ML VIAL) 30 units DAILY SQ 08/15/25 09:00 08/16/25 07:19 DC 08/15/25 08:28 30 UNITS Insulin Glargine (LANtus 100 UNITS/ML 10 ML VIAL) 35 units DAILY SQ 08/16/25 09:00 08/19/25 07:35 DC 08/18/25 07:59 35 UNITS Insulin Glargine (LANtus 100 UNITS/ML 10 ML VIAL) 42 units DAILY SQ 08/19/25 09:00 08/20/25 06:22 DC 08/19/25 09:40 42 UNITS Insulin Glargine (LANtus 100 UNITS/ML 10 ML VIAL) 45 units DAILY SQ 08/20/25 09:00 08/20/25 16:32 DC Insulin Human Lispro (HumaLOG LISpro 100 UNIT/ML 3ML) INSULIN SLIDING SCAL... ACHS SQ 08/16/25 21:00 08/17/25 09:31 DC Insulin Human Regular (humuLIN R 100 UNIT/ML 3ML) 5 unit TIDAC SQ 08/14/25 17:00 08/15/25 07:24 DC 08/15/25 07:03 5 UNIT Insulin Human Regular (humuLIN R 100 UNIT/ML 3ML) 8 unit TIDAC SQ 08/15/25 07:30 08/15/25 22:46 DC 08/15/25 16:02 8 UNIT Insulin Human Regular (humuLIN R 100 UNIT/ML 3ML) 10 unit TIDAC SQ 08/16/25 07:30 08/17/25 21:12 DC 08/17/25 16:09 10 UNIT Insulin Human Regular (humuLIN R 100 UNIT/ML 3ML) 12 unit TIDAC SQ 08/18/25 07:30 08/18/25 20:19 DC 08/18/25 16:39 12 UNIT Insulin Human Regular (humuLIN R 100 UNIT/ML 3ML) 16 unit TIDAC SQ 08/19/25 07:30 08/20/25 06:22 DC 08/19/25 16:47 16 UNIT Insulin Human Regular (humuLIN R 100 UNIT/ML 3ML) 17 unit TIDAC SQ 08/20/25 07:30 08/20/25 16:32 DC Insulin Human Regular (humuLIN R 100 UNIT/ML 3ML) INSULIN SLIDING SCAL... ACHS SQ 08/17/25 16:30 08/20/25 16:32 DC 08/19/25 21:31 8 UNIT Insulin Human Regular (humuLIN R 100 UNIT/ML 3ML) INSULIN SLIDING SCAL... ACHS SQ 08/22/25 11:30 09/21/25 11:29 Insulin Human Regular (humuLIN R 100 UNIT/ML 3ML) INSULIN SLIDING SCAL... ACHS SQ 08/13/25 16:30 08/16/25 20:46 DC 08/16/25 20:01 4 UNIT Insulin Human Regular 100 unit/ Sodium Chloride 100 ml @ 0 mls/hr AD IV 08/20/25 17:00 08/22/25 16:59 08/21/25 15:00 5 MLS/HR Iron Sucrose (VenoFER) 200 mg DAILY IV 08/21/25 13:00 08/23/25 13:00 08/21/25 13:52 200 MG Lidocaine (Lidocaine Patch 4%) 1 each DAILY TP 08/19/25 09:00 09/18/25 08:59 08/22/25 09:40 1 EACH Lidocaine HCl/ Dextrose 250 ml @ 0 mls/hr PROTOCOL IV 08/21/25 00:00 09/20/25 00:00 Magnesium Sulfate 50 ml @ 12.5 mls/hr AD PRN IV MAG LEVEL LESS THAN 2.0 08/20/25 17:00 09/19/25 16:59 08/22/25 03:58 12.5 MLS/HR Magnesium Sulfate 50 ml @ 0 mls/hr PROTOCOL IV 08/13/25 16:30 08/21/25 10:49 DC 08/21/25 05:58 25 MLS/HR Morphine Sulfate (morPHINE 2MG SYG) 0.5 mg Q2H PRN IV MODERATE PAIN (4-6) 08/20/25 17:00 08/20/25 18:07 DC Morphine Sulfate (morPHINE 2MG SYG) 2 mg Q6H PRN IVP SEVERE PAIN (7-10) 08/19/25 18:00 08/20/25 16:32 DC 08/19/25 17:50 2 MG Morphine Sulfate (morPHINE 4MG SYG) 0.5 mg Q2H PRN IV MODERATE PAIN (4-6) 08/20/25 18:30 08/21/25 16:59 DC Morphine Sulfate (morPHINE 4MG SYG) 1 mg Q2H PRN IV SEVERE PAIN (7-10) 08/20/25 17:00 08/21/25 16:59 DC Morphine Sulfate (morPHINE 4MG SYG) 2 mg Q6H PRN IVP SEVERE PAIN (7-10) 08/14/25 09:30 08/19/25 12:29 DC 08/19/25 12:22 2 MG Multivitamins Therapeutic (Multivitamin Tablet) 1 tab DAILY PO 08/15/25 09:00 09/14/25 08:59 08/22/25 09:14 1 TAB Nitroglycerin/ Dextrose 0 ml @ 0 mls/hr AD IV 08/20/25 17:00 08/23/25 16:59 Nitroglycerin/ Dextrose 250 ml @ 0 mls/hr PROTOCOL IV 08/20/25 03:30 08/20/25 16:32 DC 08/20/25 03:12 1.5 MLS/HR Norepinephrine 250 ml @ 0 mls/hr PROTOCOL IV 08/13/25 15:30 08/20/25 08:31 DC Norepinephrine Bitartrate 250 ml @ 0 mls/hr AD PRN IV TITRATE 08/20/25 08:00 09/19/25 07:59 08/21/25 06:40 9.4 MLS/HR Norepinephrine Bitartrate 250 ml @ 0 mls/hr AD PRN IV TITRATE 08/20/25 09:00 08/20/25 09:03 DC Norepinephrine Bitartrate 8 mg/ Dextrose 250 ml @ 0 mls/hr AD PRN IV POST-OP CARDIOVASCULAR ORDERS 08/20/25 17:00 08/21/25 10:49 DC Ondansetron HCl (zoFRAN 4MG INJ) 4 mg Q4H PRN IV NAUSEA 08/14/25 14:30 08/20/25 16:32 DC 08/14/25 14:17 4 MG Ondansetron HCl (zoFRAN 4MG INJ) 4 mg Q6H PRN IV NAUSEA/VOMITING 08/20/25 17:00 09/19/25 16:59 Ondansetron HCl (zoFRAN 4MG INJ) 4 mg Q6H PRN IVP NAUSEA/VOMITING 08/13/25 16:30 08/14/25 14:08 DC Pantoprazole Sodium (PROTonix 40MG INJ) 40 mg Q12H IVP 08/17/25 16:30 08/20/25 16:32 DC 08/20/25 03:53 40 MG Pantoprazole Sodium (PROTonix 40MG INJ) 40 mg Q24H IVP 08/13/25 16:30 08/17/25 11:10 DC 08/16/25 16:07 40 MG Pharmacy Profile Note (Pharmacy Communication) 1 each PROTOCOL PRN MISC ETOH Withdrawal Score changes 08/14/25 14:30 08/14/25 14:08 DC Polyethylene Glycol (MIRalax 3350 17 GM POWD.PACK) 17 gm DAILY PO 08/15/25 09:00 09/14/25 08:59 08/22/25 09:40 17 GM Potassium Phosphate 250 ml @ 42 mls/hr AD PRN IV LOW PHOS LEVEL 08/20/25 17:00 09/19/25 16:59 Potassium Chloride 100 ml @ 100 mls/hr AD PRN IV HYPOKALEMIA 08/20/25 17:00 09/19/25 16:59 08/22/25 02:41 100 MLS/HR Potassium Chloride 100 ml @ 100 mls/hr AD PRN IV POTASSIUM PROTOCOL 08/13/25 16:30 08/20/25 16:32 DC 08/16/25 16:07 100 MLS/HR Potassium Chloride (K-Dur/Klor-Con 20meq) 20 meq AD PRN PO POTASSIUM PROTOCOL 08/13/25 16:30 08/20/25 16:32 DC 08/15/25 08:23 20 MEQ Potassium Chloride (KCl 10% Elixir 20meq/15ml) 20 meq AD PRN PO POTASSIUM PROTOCOL 08/13/25 16:30 08/20/25 16:32 DC Promethazine HCl (Phenergan) 25 mg Q6H PRN PO NAUSEA 08/14/25 14:30 08/20/25 16:32 DC Propofol 100 ml @ 0 mls/hr AD PRN IV SEDATION 08/20/25 17:00 08/24/25 16:59 Sodium Bicarbonate 25 meq/Dextrose 1,000 ml @ 0 mls/hr Q0M IV 08/14/25 00:30 09/13/25 00:29 08/20/25 23:15 50 MLS/HR Sodium Bicarbonate 25 meq/Dextrose 1,000 ml @ 0 mls/hr Q0M IVP 08/14/25 00:30 08/14/25 00:15 DC Sodium Bicarbonate (Sodium Bicarb 50meq 50ml Vial) 50 meq AD PRN IV OTHER[SEE DOSING INSTRUCTIONS] 08/20/25 17:00 08/23/25 16:59 08/21/25 01:19 50 MEQ Sodium Chloride 500 ml @ 500 mls/hr Q1H IV 08/20/25 00:33 08/20/25 03:16 DC 08/20/25 00:53 500 MLS/HR Sodium Chloride 500 ml @ 0 mls/hr AD IV 08/20/25 17:00 09/19/25 16:59 Sodium Chloride 1,000 ml @ 10 mls/hr ONCE IV 08/20/25 17:00 08/21/25 16:59 DC 08/20/25 22:31 10 MLS/HR Sodium Chloride (NS Flush 10ml) 10 ml Q8H PRN IVP IV LINE FLUSH 08/20/25 17:00 09/19/25 16:59 Thiamine HCl (Vitamin B-1) 300 mg DAILY IV 08/15/25 09:00 08/17/25 09:01 DC 08/17/25 07:46 300 MG Ticagrelor (BRILinta) 90 mg BID PO 08/14/25 09:00 08/14/25 21:19 DC 08/14/25 20:09 90 MG Tramadol HCl (UltRAM) 25 mg Q6H PRN PO MODERATE PAIN (4-6) 08/20/25 17:00 08/25/25 16:59 Tramadol HCl (UltRAM) 50 mg Q6H PRN PO SEVERE PAIN (7-10) 08/20/25 17:00 08/25/25 16:59 08/22/25 09:25 50 MG Vancomycin HCl 250 ml @ 125 mls/hr Q12H IV 08/18/25 09:00 08/19/25 20:54 DC 08/19/25 09:39 125 MLS/HR Vancomycin HCl 250 ml @ 125 mls/hr Q8H IV 08/19/25 21:30 08/21/25 00:23 DC 08/20/25 22:26 125 MLS/HR Vancomycin HCl 250 ml @ 125 mls/hr Q8H IV 08/21/25 06:30 08/21/25 08:35 DC 08/21/25 08:15 125 MLS/HR Vancomycin HCl 250 ml @ 125 mls/hr Q8H IV 08/21/25 08:00 08/21/25 06:28 DC Vancomycin HCl 250 ml @ 125 mls/hr Q8H IV 08/21/25 16:30 08/31/25 16:29 08/22/25 09:14 125 MLS/HR Vancomycin HCl (Vancomycin Protocol) 1 each AD IV 08/17/25 22:00 08/31/25 21:59 DIAGNOSTICS / RADIOLOGY: [ ] ASSESSMENT: Cardiogenic shock with lactic acidosis, POA NSTEMI/ACS, POA Complete heart block, POA History of multivessel coronary artery disease, POA History of cocaine use disorder, POA Severe nonketotic hyperglycemia, POA History of to poorly controlled type 2 diabetes mellitus, POA Lactic acidosis, POA History of anemia, POA History of gastritis, POA History of hypertension, POA History of PTSD/anxiety, POA Obesity, POA Medical noncompliance, POA PLAN: Continue ceftriaxone and cefazolin (surgical prophylaxis) Trend WBCs Follow-up blood cultures O2 nasal cannula as needed Follow up with Critical care, appreciate assistance Continue aspirin, atorvastatin, Brilinta Monitor blood pressure Follow up with CT surgery Follow up with Cardiology Continue norepinephrine, wean as tolerated Continue dopamine and amiodarone Continue Impella support Continue GI soft diet Continue GI prophylaxis with famotidine No need for IV fluids Trend a.m. BMP Replete electrolytes as necessary Hold heparin drip pending CABG DVT prophylaxis with SCDs only for now Trend a.m. CBC Follow up With endocrinology Full code Case was discussed with patient's nurse at bedside Critical care Attention time greater than 30 minutes ROSHAN RILEY MD Aug 22, 2025 10:06
--- NOTE | 2025-08-22 10:33 | HMCIMG ---
CHEST 1VW REASON: s/p CABG COMPARISON: Pain from 08/20/2025 is available. FINDINGS: Single view of the chest was obtained. Patient is status post median sternotomy with cardiac revascularization procedure with left atrial clipping. There is mild borderline cardiomegaly. There is small bilateral pleural effusion. The support lines including the [place] catheter with the tip in the main pulmonary artery in satisfactory position. The left-sided chest tube and left ventricular assisted device in place with the tip in the left ventricle. Mediastinum and bony thorax appear unremarkable. IMPRESSION: 1. Status post median sternotomy with cardiac revascularization procedure 2. Small pleural effusion 3. Support lines are in satisfactory position 4. No evidence of airspace consolidation or pulmonary venous congestion.
--- NOTE | 2025-08-22 11:17 | PN ---
[facility] CARDIOLOGY PROGRESS NOTE Date Patient Seen: Aug 22, 2025 Time of Visit: 11:15 Problem List: NSTEMI s/p 3V CABG (BRO-LAD, VG-D2, VG-OM) ICMP CARDIOGENIC SHOCK COCAINE USE Interval History: Seen in ICU VT post operatively, on amiodarone and lidocaine infusions Vasopressor support with levophed, epinephrine Impella to R PICKING MACHINE OPERATOR HELPER at P-[address], on standby Physical Examination: GENERAL: [well appearing, calm, no distress HEAD: [Normal with no signs of head trauma.] EYES: [PERRLA, EOMI, conjunctiva and sclera normal.] ENT: [Hearing grossly intact.] LUNGS: [Clear breath sounds bilaterally. No wheezes, or rhonchi.] HEART: [NSR. Normal S1 and S2 without murmurs, gallop or rub.] VASC: [Peripheral pulses +2 bilaterally radial. doppler R DP. distal extremities are warm] ABD: [soft, nontender.] EXT: [No clubbing, cyanosis or edema. Right PICKING MACHINE OPERATOR HELPER Impella CP and TVPM insertion site no ecchymoses or bleeding. SKIN: [No rashes or lesions noted. warm, dry NEURO: [no abnormal posturing Laboratory: [ ] Hematology Labs: Test 08/22/25 06:54 08/22/25 01:40 Range/Units Hemoglobin 8.5 #L 12.0-16.0 g/dL Hematocrit 24.9 #L 36-48 % White Blood Count 16.2 H 4.8-10.8 K/uL Red Blood Count 2.22 L 4.00-5.50 MIL/uL Mean Corpuscular Volume 88.3 79-99 fL Mean Corpuscular Hemoglobin 30.2 27.0-33.0 pg Mean Corpuscular Hemoglobin Concent 34.2 32.0-36.0 g/dL Red Cell Distribution Width 17.3 H 11.0-15.5 % Platelet Count 108 L 130-400 K/uL Mean Platelet Volume 11.7 H 7.5-10.5 fL Immature Granulocyte % (Auto) 1.0 0-1 % Neutrophils (%) (Auto) 69.9 40.0-77.0 % Lymphocytes (%) (Auto) 18.3 L 21.0-51.0 % Monocytes (%) (Auto) 10.2 3.0-13.0 % Eosinophils (%) (Auto) 0.4 0.0-8.0 % Basophils (%) (Auto) 0.2 0.0-5.0 % Neutrophils # (Auto) 11.3 H 1.8-7.7 K/uL Lymphocytes # (Auto) 3.0 1.0-4.8 K/uL Monocytes # (Auto) 1.7 H 0.1-1.0 K/uL Eosinophils # (Auto) 0.07 0.00-0.70 K/uL Basophils # (Auto) 0.04 0.00-0.20 K/uL Absolute Immature Granulocyte (auto 0.16 0-1 K/uL Nucleated Red Blood Cells 1.8 H 0.0-0.19 % Chemistry Labs: Test 08/22/25 07:48 08/22/25 01:40 08/21/25 03:34 08/20/25 21:09 Range/Units Whole Blood Glucose 153 H 70-110 MG/DL Sodium Level 146 H 136-145 mmol/L Potassium Level 3.9 3.5-5.1 mmol/L Chloride Level 108 101-111 mmol/L Carbon Dioxide Level 26 21-32 mmol/L Blood Urea Nitrogen 14 7-18 mg/dL Creatinine 0.5 0.5-1.0 mg/dL Glomerular Filtration Rate Calc 109 >90 mL/min Random Glucose 154 H 70-105 mg/dL Total Calcium 8.3 L 8.5-10.1 mg/dL Ionized Calcium 1.13 L 1.15-1.33 MMOL/L Magnesium Level 1.90 1.80-2.40 mg/dL Total Bilirubin 0.7 # 0.2-1.0 mg/dL Aspartate Amino Transf (AST/SGOT) 154 H 10-37 U/L Alanine Aminotransferase (ALT/SGPT) 24 12-78 U/L Alkaline Phosphatase 57 50-136 U/L Total Protein 5.1 L 6.0-8.3 g/dL Albumin 2.4 L 3.5-5.0 g/dL B-Type Natriuretic Peptide 359 H 0-100 pg/mL Phosphorus Level 4.9 2.5-4.9 mg/dL Coagulation Labs: Test 08/22/25 07:45 Range/Units Prothrombin Time 12.8 H 9.6-11.6 SEC Prothromb Time International Ratio 1.23 H 0.85-1.15 Activated Partial Thromboplast Time > 139.0 *H 26.3-35.5 SEC Fibrinogen 541 *H 180-350 mg/dL Diagnostics / Radiology: [Copy/Paste Echos/Imaging Report here] Impression and Plan: 1. Non ST-elevation [place] complicated by cardiogenic shock and complete heart block status post Impella placement in the R PICKING MACHINE OPERATOR HELPER and TVPM to R CFV 2. CAD with total occlusion of the right coronary artery unable to cross with a wire , of note the patient had a 30-40% RCA stenosis in April of this year raising possibility of spasm and or plaque rupture. LV ejection fraction of 50% with hypokinesis of the infero base by echo this admission. Previously known severe disease of pLAD and pLCx. s/p 3V CABG (BRO-LAD, VG-D2, VG-OM with RUPALI- ligation 40 mm Atricure clip 08/20) 3. Cocaine abuse , tox screen positive for cocaine and benzodiazepines 4. Diabetes mellitus type 2 uncontrolled 5. Tobacco dependence 6. Remote CVA 2008 7. Noncompliance history, the patient has been seen in the hospital but has not followed up in the office. 8. Dyslipidemia 9. Urinary tract infection 10. Bacteremia one of two sets possibly contamination 11. Thrombocytopenia # Non ST-elevation [place] complicated by cardiogenic shock and complete heart block status post Impella placement in the R PICKING MACHINE OPERATOR HELPER and TVPM to R CFV #CAD with total occlusion of the right coronary artery unable to cross with a wire , of note the patient had a 30-40% RCA stenosis in April of this year raising possibility of spasm and or plaque rupture. LV ejection fraction of 50% with hypokinesis of the infero base by echo this admission. Previously known severe disease of pLAD and pLCx s/p 3V CABG (BRO-LAD, VG-D2, VG-OM with RUPALI- ligation 40 mm Atricure clip 08/20) - c/w aspirin, Lasix, lipitor and heparin drip per Impella protocol. We will continue her amiodarone drip. -Wean off of pressors -rest of care per CV surgery PAULINA KAY MD Aug 22, 2025 11:17
--- NOTE | 2025-08-22 11:56 | PN ---
[facility] PROGRESS NOTE Date Patient Seen: Aug 22, 2025 Time of Visit: 11:54 Supervising Physician: Dr Ishan Poe Consulting Physician: Hospitalist Outpatient Specialists: [ ] Inpatient Consults: [ ] PROBLEM LIST: CABG x3 vessels 08/20 Cardiogenic shock SCAI stage D status post cardiac catheterization with mult ivessel disease, Impella placement Complete heart block, status post transvenous temporary pacemaker placement Acute hypoxic respiratory failure, NSTEMI, POA Bactermia + Staph Cohni urealyticum DM type 2, with hyperglycemia, HGB A1c of 10.7 Cocaine abuse Tobacco use, current smoker History of CVA INTERVAL HISTORY: Patient was seen and examined, she remains in the CV unit, she is extubated, currently nasal cannula at 5 L good O2 sats She continues with the Impella at P7 She is off levo but continues on the epi Continues on oral amiodarone, lidocaine and the amnio drip or off She continues on antibiotics. We are pending the vanco trough Urine output was little over a L overnight, chest tube output was 100 overnight Chest x-ray is clearing she still continues on a little Precedex as she is severely agitated Plan: Follow CT surgeon recs Follow I&Os Wean pressors per protocol Daily chest x-ray Antibiotics and following cultures Impella support Critical care time 53 minutes, this time excludes any time spent on education or procedures. REVIEW OF SYSTEMS: 12 point ROS reviewed with patient. Pertinent positives mentioned above. Otherwise negative. PHYSICAL EXAM: GENERAL: alert, weak, awake oriented x 3 HEENT: EOMI, Sclera non icteric, moist mucosa NECK: Supple, no JVD, trachea midline LUNGS: Clear breath sounds bilaterally. No wheezes HEART: TVP Normal S1 and S2, without murmurs ABD: Abdomen soft, nontender. Bowel sounds present EXT: No clubbing cyanosis or edema NEURO: Alert and oriented to person, follows commands Vital Signs (last 8hr) Date Time Temp Pulse Resp B/P (MAP) Pulse Ox O2 Delivery O2 Flow Rate FiO2 08/22/25 07:59 20 N/Cannula Low lpm 5.0 40 08/22/25 06:45 80 19 111/61 (78) 97 40 139/78 (98) 08/22/25 06:30 80 19 114/62 (79) 97 40 135/68 (90) 08/22/25 06:15 80 23 115/66 (82) 96 40 145/79 (101) 08/22/25 06:00 80 19 121/68 (85) 96 40 149/81 (103) 08/22/25 05:45 80 22 123/68 (86) 95 40 125/73 (90) 08/22/25 05:30 80 20 123/73 (90) 96 40 154/82 (106) 08/22/25 05:15 80 19 114/65 (81) 96 40 145/83 (103) 08/22/25 05:00 80 17 113/67 (82) 97 40 141/80 (100) 08/22/25 04:45 80 18 117/67 (84) 97 40 136/78 (97) 08/22/25 04:30 80 18 118/65 (82) 97 40 143/78 (99) 08/22/25 04:15 80 20 118/65 (82) 96 40 149/84 (105) 08/22/25 04:00 97 Nasal Cannula* 5 40 08/22/25 04:00 97.5 80 24 118/70 (86) 96 40 143/80 (101) LABS: Hematology Labs: Test 08/22/25 06:54 08/22/25 01:40 Range/Units Hemoglobin 8.5 #L 12.0-16.0 g/dL Hematocrit 24.9 #L 36-48 % White Blood Count 16.2 H 4.8-10.8 K/uL Red Blood Count 2.22 L 4.00-5.50 MIL/uL Mean Corpuscular Volume 88.3 79-99 fL Mean Corpuscular Hemoglobin 30.2 27.0-33.0 pg Mean Corpuscular Hemoglobin Concent 34.2 32.0-36.0 g/dL Red Cell Distribution Width 17.3 H 11.0-15.5 % Platelet Count 108 L 130-400 K/uL Mean Platelet Volume 11.7 H 7.5-10.5 fL Immature Granulocyte % (Auto) 1.0 0-1 % Neutrophils (%) (Auto) 69.9 40.0-77.0 % Lymphocytes (%) (Auto) 18.3 L 21.0-51.0 % Monocytes (%) (Auto) 10.2 3.0-13.0 % Eosinophils (%) (Auto) 0.4 0.0-8.0 % Basophils (%) (Auto) 0.2 0.0-5.0 % Neutrophils # (Auto) 11.3 H 1.8-7.7 K/uL Lymphocytes # (Auto) 3.0 1.0-4.8 K/uL Monocytes # (Auto) 1.7 H 0.1-1.0 K/uL Eosinophils # (Auto) 0.07 0.00-0.70 K/uL Basophils # (Auto) 0.04 0.00-0.20 K/uL Absolute Immature Granulocyte (auto 0.16 0-1 K/uL Nucleated Red Blood Cells 1.8 H 0.0-0.19 % Chemistry Labs: Test 08/22/25 07:48 08/22/25 01:40 08/21/25 03:34 08/20/25 21:09 Range/Units Whole Blood Glucose 153 H 70-110 MG/DL Sodium Level 146 H 136-145 mmol/L Potassium Level 3.9 3.5-5.1 mmol/L Chloride Level 108 101-111 mmol/L Carbon Dioxide Level 26 21-32 mmol/L Blood Urea Nitrogen 14 7-18 mg/dL Creatinine 0.5 0.5-1.0 mg/dL Glomerular Filtration Rate Calc 109 >90 mL/min Random Glucose 154 H 70-105 mg/dL Total Calcium 8.3 L 8.5-10.1 mg/dL Ionized Calcium 1.13 L 1.15-1.33 MMOL/L Magnesium Level 1.90 1.80-2.40 mg/dL Total Bilirubin 0.7 # 0.2-1.0 mg/dL Aspartate Amino Transf (AST/SGOT) 154 H 10-37 U/L Alanine Aminotransferase (ALT/SGPT) 24 12-78 U/L Alkaline Phosphatase 57 50-136 U/L Total Protein 5.1 L 6.0-8.3 g/dL Albumin 2.4 L 3.5-5.0 g/dL B-Type Natriuretic Peptide 359 H 0-100 pg/mL Phosphorus Level 4.9 2.5-4.9 mg/dL Coagulation Labs: Test 08/22/25 07:45 Range/Units Prothrombin Time 12.8 H 9.6-11.6 SEC Prothromb Time International Ratio 1.23 H 0.85-1.15 Activated Partial Thromboplast Time > 139.0 *H 26.3-35.5 SEC Fibrinogen 541 *H 180-350 mg/dL DIAGNOSTICS / RADIOLOGY RESULTS: [ ] PLAN NEURO: Minimize central acting medications as possible. Fall Precautions. Well lighted room through the day and minimize interruptions through the night to prevent acute delirium. PULMONARY: Supplemental 02 as needed Titrate Fio2 to keep Spo2 > or = 90% DuoNebs and CPT as needed IS hourly while awake for pulmonary hygiene CARDIOVASCULAR: Follow hemodynamics. Titrate vasopressor to keep MAP >65 or systolic blood pressure >95mmHg DIPS: Dopamine weaned off Heparin gtt LINES: Peripheral IV CVP Impella GI & NUTRITION: Continue nutritional support Aspirations precautions Prokinetic agents and laxatives as needed Clear liquid diet as tolerated KIDNEYS & ELECTROLYTES: Strict monitoring of intake and output Daily weights Avoid nephrotoxic agents Monitor electrolytes and replace as needed Goal urine output of 30mL/hr or 0.5mL/kg/hr ENDOCRINE: Maintain blood glucose between 100-180 at all times. Insulin sliding scale for blood glucose management INFECTIOUS DISEASE: Trend temperature. Astudillo-culture if febrile. Micro: [ ] Urine culture - Ecoli Blood culture - Staph cohnii urealyticum Antibiotics: [ ] Rocephin Vancomycin HEMATOLOGY & COAGULATION: Monitor H&H. Keep Hgb > 7 Transfuse 1 unit of PRBC for Hgb < 7 Transfuse 1 pack of platelets of platelets < 20, 000 Watch for any signs and symptoms of bleeding SKIN: Pressure ulcer prevention per facility protocol Rehab: PT/OT Prophylaxis: GI: PPI DVT: SCDs patient on heparin drip Code Status: Full Resuscitation Disposition: ICU CHIRAG HURTADO PAC Aug 22, 2025 11:56
[2025-08-22 17:38] LABS: CREATININE 0.6 mg/dL (0.5-1.0); GLOMERULAR FILTR. RATE CALC 104.0 mL/min (>90); GLUCOSE,RANDOM 234.0 mg/dL (70-105); SODIUM SERUM 141.0 mmol/L (136-145); UREA NITROGEN, BLOOD 18.0 mg/dL (7-18)
[2025-08-22 18:36] LABS: ABG BASE EXCESS 0.1 mmol/L (-2.0-3.0); ABG HCO3 23.5 mmol/L (21.0-28.0); ABG OXYGEN SATURATION 96.2 % (94.0-98.0); ABG PCO2 33 mmHg (32-45); ABG PH 7.471 (7.350-7.450); CARBON MONOXIDE 0.6 % (0.5-1.5); PO2, ARTERIAL BG 89.1 mmHg (83.0-108.0); TEMPERATURE, CELSIUS BG 37.0 CELSIUS (35.5-37.0); VENT MODE, BG NC (ROOM AIR)
--- NOTE | 2025-08-22 21:34 | PN ---
Endocrinology progress note DOS: 08/22/25 subjective: Home diabetic regimen: metformin 500 mg bid Hba1c 10.7% glucose runs greater than 180 mg/dl. patient is s/p CABG REVIEW OF SYSTEMS CONSTITUTIONAL: generalized fatigue, malaise NEUROLOGICAL: Denies headache, amaurosis fugax, motor weakness, sensory deficit, vertigo/spinning sensation, gait abnormalities, or tremors. ENT: No hearing loss, otalgia, otorrhea, rhinitis, rhinorrhea, hoarseness, or sore throat. CARDIOVASCULAR: chest pain, Shortness of breath improving PULMONARY: Denies any shortness of breath, cough, phlegm/sputum, hemoptysis, pleuritic chest pain. SLEEP: Denies morning headaches, daytime somnolence or napping. Denies difficulty falling asleep, staying asleep, waking from sleep. Denies knowledge of snoring. GASTROINTESTINAL: Denies any type of dysphagia to either liquids or solids. Denies vomiting, pyrosis, early satiety, abdominal pain, diarrhea, constipation, or changes in stool consistency or caliber. Denies coffee-ground emesis, hematemesis, hematochezia, or melanotic stools. GENITOURINARY: Denies frequency, urgency, nocturia, hematuria or incontinence (Storage/Irritative symptoms.) Low urinary stream, straining to void, urinary intermittency or hesitancy, splitting of the voiding stream, terminal dribbling. ENDOCRINOLOGIC: Denies polyuria, polydipsia, polyphagia or heat/cold intolerances. HEMATOLOGIC: Denies thrombophilia/previous clots, or coagulopathy/bleeding disorders. ONCOLOGIC: Denies personal history of malignancy. DERMATOLOGIC: Denies rashes or pruritus. PSYCHIATRIC: Denies any suicidal or homicidal ideation. Denies hallucinations. PAST MEDICAL HISTORY: Coronary artery disease with history of abnormal coronary CT angiography, gastritis, anemia, cocaine use disorder, obesity, PTSD, anxiety disorder, history of NSTEMI in 04/2025, history of CVA in 2008 PAST SURGICAL HISTORY: History of ventral hernia repair 2008, hx of cholecystectomy, hx of C Section PAST SOCIAL HISTORY: Denies active alcohol consumption, intermittently smokes cigarettes as well as has been using cocaine chronically FAMILY HISTORY: Reports family history of heart disease Home medications: Patient does not have list of home medications, family will be bringing list of home medications to be updated Allergies: Patient has allergic reaction to lisinopril Coded Allergies: No Known Drug Allergies (Verified Allergy, Unknown, 05/04/22) lisinopril (Verified Allergy, Unknown, 05/04/22) DIAGNOSTICS / RADIOLOGY: SERVICE 24 REASON: cp ORDERING PHYSICIAN: ZORA OCHOA MD PROCEDURE: CXR1VW - CHEST 1VW EXAM: CR Chest, 1 View. CLINICAL HISTORY: cp COMPARISON: 07/08/25 FINDINGS: LUNGS: The lungs show no infiltrate or other acute finding. PLEURAL SPACES: No pleural effusion or pneumothorax. MEDIASTINUM: The cardiomediastinal silhouette is within normal limits. BONES: No aggressive appearing osseous lesion seen. IMPRESSION: No acute cardiopulmonary pathology is evident. /[place] DICTATED BY: BELKIS KURTZ MD DATE: 08/13/251731 ELECTRONICALLY SIGNED BY: BELKIS KURTZ MD DATE: 08/13/251731 ASSESSMENT: uncontrolled DM-2 Home diabetic regimen: metformin 500 mg bid Hba1c 10.7% glucose runs greater than 180 mg/dl but improving now. off insulin drip now and on low dose ssi. Cardiogenic shock with lactic acidosis, POA cardiology following, s/p CABG procedure. NSTEMI/ACS, POA Complete heart block, POA History of multivessel coronary artery disease, POA History of cocaine use disorder, POA Severe nonketotic hyperglycemia, POA History of to poorly controlled type 2 diabetes mellitus, POA Lactic acidosis, POA History of anemia, POA History of gastritis, POA History of hypertension, POA History of PTSD/anxiety, POA Obesity, POA Medical noncompliance, POA PLAN: start Lantus 15 units daily and adjust for fasting glucose. start Regular insulin 5 units three times before meals and adjust for post- prandial glucose. increase low dose ssi to medium dose sliding scale insulin. Monitor glucose q x 6 hourly. Continue carb consistent diet. Keep glucose less than 180 mg/dl. Patient will need insulin at discharge. Vitals/Labs Vital Signs Date Time Temp Pulse Resp B/P (MAP) Pulse Ox O2 Delivery O2 Flow Rate FiO2 08/22/25 18:46 80 20 N/Cannula Low lpm 5.0 40 08/22/25 18:30 128/60 (82) 154/86 (108) 08/22/25 18:00 96 08/22/25 12:00 98.2 Laboratory Tests 08/22/25 01:40 08/22/25 02:24 08/22/25 06:54 08/22/25 16:50 Medications Current Medications Ondansetron HCl 4 mg ONCE ONCE IVP; Start 08/13/25 at 14:30; Stop 08/13/25 at 14:52; Status DC Sodium Chloride 500 ml @ 0 mls/hr ONCE ONCE IV Last administered on 08/13/25at 15:00; Start 08/13/25 at 14:30; Stop 08/13/25 at 14:31; Status DC Heparin Sodium (Porcine) *calculation based on ACTUAL B... AD PRN IV Last administered on 08/17/25at 04:46; Start 08/13/25 at 16:30; Stop 08/20/25 at 16:32; Status DC Heparin Sodium/ Dextrose 250 ml @ 0 mls/hr Q6H IV Last administered on 08/19/25at 22:03; Start 08/13/25 at 16:30; Stop 08/20/25 at 16:32; Status DC Norepinephrine 250 ml @ 0 mls/hr PROTOCOL IV; Start 08/13/25 at 15:30; Stop 08/20/25 at 08:31; Status DC Dopamine HCl/ Dextrose 250 ml @ As Directed STK-MED ONCE IV; Start 08/13/25 at 15:33; Stop 08/13/25 at 15:33; Status DC Aspirin 325 mg STK-MED ONCE .ROUTE; Start 08/13/25 at 15:34; Stop 08/13/25 at 15:33; Status DC Ticagrelor 180 mg ONCE ONCE PO Last administered on 08/13/25at 16:16; Start 08/13/25 at 16:00; Stop 08/13/25 at 16:01; Status DC Morphine Sulfate 1 mg ONCE ONCE IVP Last administered on 08/13/25at 16:23; Start 08/13/25 at 16:00; Stop 08/13/25 at 16:01; Status DC Ticagrelor 90 mg STK-MED ONCE .ROUTE; Start 08/13/25 at 15:50; Stop 08/13/25 at 15:50; Status DC Dopamine HCl/ Dextrose 250 ml @ 0 mls/hr PROTOCOL IV Last administered on 08/16/25at 16:41; Start 08/13/25 at 16:00; Stop 09/12/25 at 15:59 Aspirin 325 mg ONCE ONCE PO Last administered on 08/13/25at 16:15; Start 08/13/25 at 16:00; Stop 08/13/25 at 16:01; Status DC Lidocaine HCl 20 ml STK-MED ONCE .ROUTE; Start 08/13/25 at 16:12; Stop 08/13/25 at 16:12; Status DC Iohexol 35,000 mg STK-MED ONCE IV; Start 08/13/25 at 16:12; Stop 08/13/25 at 16:12; Status DC Heparin Sodium (Porcine) 10,000 unit STK-MED ONCE .ROUTE; Start 08/13/25 at 16:12; Stop 08/13/25 at 16:12; Status DC Nicardipine HCl 25 mg STK-MED ONCE IV; Start 08/13/25 at 16:12; Stop 08/13/25 at 16:12; Status DC Heparin Sodium/ Sodium Chloride 1,000 ml @ As Directed STK-MED ONCE IV; Start 08/13/25 at 16:12; Stop 08/13/25 at 16:12; Status DC Nitroglycerin 50 mg STK-MED ONCE .ROUTE; Start 08/13/25 at 16:12; Stop 08/13/25 at 16:12; Status DC Pantoprazole Sodium 40 mg Q24H IVP Last administered on 08/16/25at 16:07; Start 08/13/25 at 16:30; Stop 08/17/25 at 11:10; Status DC Insulin Human Regular INSULIN SLIDING SCAL... ACHS SQ Last administered on 08/16/25at 20:01; Start 08/13/25 at 16:30; Stop 08/16/25 at 20:46; Status DC Insulin Human Regular 5 unit ONCE ONCE IV; Start 08/13/25 at 16:30; Stop 08/13/25 at 16:31; Status DC Fentanyl Citrate 100 mcg STK-MED ONCE .ROUTE; Start 08/13/25 at 16:26; Stop 08/13/25 at 16:26; Status DC Midazolam HCl 2 mg STK-MED ONCE .ROUTE; Start 08/13/25 at 16:27; Stop 08/13/25 at 16:27; Status DC Acetaminophen 650 mg Q6H PRN PO Last administered on 08/20/25at 01:28; Start 08/13/25 at 16:30; Stop 09/12/25 at 16:29 Ondansetron HCl 4 mg Q6H PRN IVP; Start 08/13/25 at 16:30; Stop 08/14/25 at 14:08; Status DC Potassium Chloride 100 ml @ 100 mls/hr AD PRN IV Last administered on 08/16/25at 16:07; Start 08/13/25 at 16:30; Stop 08/20/25 at 16:32; Status DC Potassium Chloride 20 meq AD PRN PO; Start 08/13/25 at 16:30; Stop 08/20/25 at 16:32; Status DC Potassium Chloride 20 meq AD PRN PO Last administered on 08/15/25at 08:23; Start 08/13/25 at 16:30; Stop 08/20/25 at 16:32; Status DC Magnesium Sulfate 50 ml @ 0 mls/hr PROTOCOL IV Last administered on 08/21/25at 05:58; Start 08/13/25 at 16:30; Stop 08/21/25 at 10:49; Status DC Atorvastatin Calcium 40 mg HS PO Last administered on 08/22/25at 20:55; Start 08/13/25 at 21:00; Stop 09/12/25 at 20:59 Heparin Sodium/ Sodium Chloride 500 ml @ As Directed STK-MED ONCE IV; Start 08/13/25 at 17:14; Stop 08/13/25 at 17:14; Status DC Heparin Sodium (Porcine) 10,000 unit STK-MED ONCE .ROUTE; Start 08/13/25 at 18:03; Stop 08/13/25 at 18:03; Status DC Aspirin 81 mg DAILY PO Last administered on 08/22/25at 09:40; Start 08/14/25 at 09:00; Stop 09/13/25 at 08:59 Insulin Glargine 10 units HS SQ Last administered on 08/13/25at 20:21; Start 08/13/25 at 21:00; Stop 08/14/25 at 06:16; Status DC Dextrose 50 ml AD PRN IV; Start 08/13/25 at 20:00; Stop 08/20/25 at 22:03; Status DC Glucagon 1 mg AD PRN IM; Start 08/13/25 at 20:00; Stop 08/21/25 at 10:49; Status DC Sodium Bicarbonate 25 meq/Dextrose 1,000 ml @ 0 mls/hr Q0M IVP; Start 08/14/25 at 00:30; Stop 08/14/25 at 00:15; Status DC Sodium Bicarbonate 25 meq/Dextrose 1,000 ml @ 0 mls/hr Q0M IV Last administered on 08/20/25at 23:15; Start 08/14/25 at 00:30; Stop 09/13/25 at 00:29 Glycerin 1 supp ONCE ONCE RC Last administered on 08/14/25at 05:56; Start 08/14/25 at 05:00; Stop 08/14/25 at 05:06; Status DC Insulin Glargine 20 units DAILY SQ Last administered on 08/14/25at 08:01; Start 08/14/25 at 09:00; Stop 08/15/25 at 07:24; Status DC Ticagrelor 90 mg BID PO Last administered on 08/14/25at 20:09; Start 08/14/25 at 09:00; Stop 08/14/25 at 21:19; Status DC Morphine Sulfate 2 mg Q6H PRN IVP Last administered on 08/19/25at 12:22; Start 08/14/25 at 09:30; Stop 08/19/25 at 12:29; Status DC Polyethylene Glycol 17 gm DAILY PO Last administered on 08/22/25at 09:40; Start 08/15/25 at 09:00; Stop 09/14/25 at 08:59 Docusate Sodium 100 mg BID PRN PO; Start 08/14/25 at 11:00; Stop 09/13/25 at 10:59 Ceftriaxone Sodium 2 gm Q24H IVPB Last administered on 08/22/25at 11:54; Start 08/14/25 at 11:30; Stop 08/24/25 at 11:29 Insulin Human Regular 5 unit TIDAC SQ Last administered on 08/15/25at 07:03; Start 08/14/25 at 17:00; Stop 08/15/25 at 07:24; Status DC Chlordiazepoxide HCl 25 mg Q2H PRN PO Last administered on 08/16/25at 23:38; Start 08/14/25 at 14:30; Stop 08/20/25 at 16:32; Status DC Chlordiazepoxide HCl 50 mg Q1H PRN PO; Start 08/14/25 at 14:30; Stop 08/20/25 at 16:32; Status DC Ondansetron HCl 4 mg Q4H PRN IV Last administered on 08/14/25at 14:17; Start 08/14/25 at 14:30; Stop 08/20/25 at 16:32; Status DC Promethazine HCl 25 mg Q6H PRN PO; Start 08/14/25 at 14:30; Stop 08/20/25 at 16:32; Status DC Acetaminophen 500 mg Q6H PRN PO Last administered on 08/20/25at 08:23; Start 08/14/25 at 14:30; Stop 09/13/25 at 14:29 Thiamine HCl 300 mg DAILY IV Last administered on 08/17/25at 07:46; Start 08/15/25 at 09:00; Stop 08/17/25 at 09:01; Status DC Folic Acid 1 mg DAILY PO Last administered on 08/17/25at 07:46; Start 08/15/25 at 09:00; Stop 08/17/25 at 09:01; Status DC Multivitamins Therapeutic 1 tab DAILY PO Last administered on 08/22/25at 09:14; Start 08/15/25 at 09:00; Stop 09/14/25 at 08:59 Pharmacy Profile Note 1 each PROTOCOL PRN MISC; Start 08/14/25 at 14:30; Stop 08/14/25 at 14:08; Status DC Insulin Glargine 30 units DAILY SQ Last administered on 08/15/25at 08:28; Start 08/15/25 at 09:00; Stop 08/16/25 at 07:19; Status DC Insulin Human Regular 8 unit TIDAC SQ Last administered on 08/15/25at 16:02; Start 08/15/25 at 07:30; Stop 08/15/25 at 22:46; Status DC Diphenhydramine HCl 25 mg ONCE ONCE IM; Start 08/15/25 at 21:00; Stop 08/15/25 at 22:52; Status DC Insulin Human Regular 10 unit TIDAC SQ Last administered on 08/17/25at 16:09; Start 08/16/25 at 07:30; Stop 08/17/25 at 21:12; Status DC Diphenhydramine HCl 25 mg ONCE PRN IV; Start 08/15/25 at 23:00; Stop 08/17/25 at 22:59; Status DC Insulin Glargine 35 units DAILY SQ Last administered on 08/18/25at 07:59; Start 08/16/25 at 09:00; Stop 08/19/25 at 07:35; Status DC Bisacodyl 10 mg DAILY RC Last administered on 08/18/25at 07:58; Start 08/17/25 at 09:00; Stop 08/20/25 at 08:59; Status DC Insulin Human Lispro INSULIN SLIDING SCAL... ACHS SQ; Start 08/16/25 at 21:00; Stop 08/17/25 at 09:31; Status DC Insulin Glargine 5 units BID@0730,2100 SQ Last administered on 08/16/25at 21:21; Start 08/16/25 at 21:00; Stop 08/17/25 at 09:31; Status DC Pantoprazole Sodium 40 mg Q12H IVP Last administered on 08/20/25at 03:53; Start 08/17/25 at 16:30; Stop 08/20/25 at 16:32; Status DC Insulin Human Regular INSULIN SLIDING SCAL... ACHS SQ Last administered on 08/19/25at 21:31; Start 08/17/25 at 16:30; Stop 08/20/25 at 16:32; Status DC Insulin Human Regular 12 unit TIDAC SQ Last administered on 08/18/25at 16:39; Start 08/18/25 at 07:30; Stop 08/18/25 at 20:19; Status DC Vancomycin HCl 1 each AD IV; Start 08/17/25 at 22:00; Stop 08/31/25 at 21:59 Vancomycin HCl 250 ml @ 83.333 mls/ hr ONCE ONCE IV Last administered on 08/17/25at 23:05; Start 08/17/25 at 22:30; Stop 08/18/25 at 01:29; Status DC Vancomycin HCl 250 ml @ 125 mls/hr Q12H IV Last administered on 08/19/25at 09:39; Start 08/18/25 at 09:00; Stop 08/19/25 at 20:54; Status DC Albumin Human 50 ml @ 0 mls/hr BID IV Last administered on 08/22/25at 20:56; Start 08/18/25 at 09:00; Stop 08/23/25 at 08:59 Lidocaine 1 each DAILY TP Last administered on 08/22/25at 09:40; Start 08/19/25 at 09:00; Stop 09/18/25 at 08:59 Lidocaine 1 each ONCE ONCE TP Last administered on 08/18/25at 13:52; Start 08/18/25 at 14:00; Stop 08/18/25 at 14:01; Status DC Diphenhydramine HCl 25 mg ONCE ONCE PO Last administered on 08/18/25at 15:19; Start 08/18/25 at 15:30; Stop 08/18/25 at 15:31; Status DC Insulin Human Regular 16 unit TIDAC SQ Last administered on 08/19/25at 16:47; Start 08/19/25 at 07:30; Stop 08/20/25 at 06:22; Status DC Insulin Glargine 42 units DAILY SQ Last administered on 08/19/25at 09:40; Start 08/19/25 at 09:00; Stop 08/20/25 at 06:22; Status DC Calcium Carbonate 500 tab QID PRN PO Last administered on 08/20/25at 05:10; Start 08/19/25 at 12:00; Stop 08/20/25 at 16:32; Status DC Morphine Sulfate 2 mg Q6H PRN IVP Last administered on 08/19/25at 17:50; Start 08/19/25 at 18:00; Stop 08/20/25 at 16:32; Status DC Cefazolin Sodium 2 gm ONCALL IVP Last administered on 08/20/25at 16:30; Start 08/19/25 at 19:30; Stop 08/21/25 at 08:36; Status DC Vancomycin HCl 250 ml @ 125 mls/hr Q8H IV Last administered on 08/20/25at 22:26; Start 08/19/25 at 21:30; Stop 08/21/25 at 00:23; Status DC Sodium Chloride 500 ml @ 500 mls/hr Q1H IV Last administered on 08/20/25at 00:53; Start 08/20/25 at 00:33; Stop 08/20/25 at 03:16; Status DC Nitroglycerin/ Dextrose 250 ml @ 0 mls/hr PROTOCOL IV Last administered on 08/20/25at 03:12; Start 08/20/25 at 03:30; Stop 08/20/25 at 16:32; Status DC Insulin Glargine 45 units DAILY SQ; Start 08/20/25 at 09:00; Stop 08/20/25 at 16:32; Status DC Insulin Human Regular 17 unit TIDAC SQ; Start 08/20/25 at 07:30; Stop 08/20/25 at 16:32; Status DC Epinephrine HCl 10 mg/Sodium Chloride 250 ml @ 0 mls/hr AD PRN IV Last administered on 08/22/25at 04:22; Start 08/20/25 at 08:00; Stop 09/19/25 at 07:59 Norepinephrine Bitartrate 250 ml @ 0 mls/hr AD PRN IV Last administered on 08/21/25at 06:40; Start 08/20/25 at 08:00; Stop 09/19/25 at 07:59 Aminocaproic Acid 25382 mg/Sodium Chloride 480 ml @ 0 mls/hr AD PRN IV; Start 08/20/25 at 08:00; Stop 09/19/25 at 07:59 Cefazolin Sodium 1 gm STK-MED ONCE .ROUTE; Start 08/20/25 at 08:23; Stop 08/20/25 at 08:23; Status DC Heparin Sodium/ Sodium Chloride 500 ml @ As Directed STK-MED ONCE IV; Start 08/20/25 at 08:23; Stop 08/20/25 at 08:24; Status DC Papaverine HCl 60 mg STK-MED ONCE .ROUTE Last administered on 08/20/25at 17:05; Start 08/20/25 at 08:23; Stop 08/20/25 at 08:24; Status DC Epinephrine HCl 10 mg/Sodium Chloride 250 ml @ 0 mls/hr AD PRN IV; Start 08/20/25 at 09:00; Stop 08/20/25 at 09:03; Status DC Norepinephrine Bitartrate 250 ml @ 0 mls/hr AD PRN IV; Start 08/20/25 at 09:00; Stop 08/20/25 at 09:03; Status DC Aminocaproic Acid 89115 mg/Sodium Chloride 480 ml @ 0 mls/hr AD PRN IV; Start 08/20/25 at 09:00; Stop 08/20/25 at 09:03; Status DC Protamine Sulfate 250 mg STK-MED ONCE IV; Start 08/20/25 at 15:44; Stop 08/20/25 at 15:44; Status DC Lidocaine HCl 100 mg STK-MED ONCE .ROUTE; Start 08/20/25 at 15:44; Stop 08/20/25 at 15:44; Status DC Heparin Sodium (Porcine) 10,000 unit STK-MED ONCE .ROUTE; Start 08/20/25 at 15:44; Stop 08/20/25 at 15:44; Status DC Epinephrine HCl 1 mg STK-MED ONCE .ROUTE; Start 08/20/25 at 15:44; Stop 08/20/25 at 15:44; Status DC Sodium Bicarbonate 200 ml @ As Directed STK-MED ONCE .ROUTE; Start 08/20/25 at 15:44; Stop 08/20/25 at 15:44; Status DC Norepinephrine Bitartrate 4 mg STK-MED ONCE IV; Start 08/20/25 at 15:44; Stop 08/20/25 at 15:44; Status DC Propofol 200 mg STK-MED ONCE IV; Start 08/20/25 at 15:45; Stop 08/20/25 at 15:44; Status DC Fentanyl Citrate 1,000 mcg STK-MED ONCE IJ; Start 08/20/25 at 15:45; Stop 08/20/25 at 15:45; Status DC Midazolam HCl 2 mg STK-MED ONCE .ROUTE; Start 08/20/25 at 15:45; Stop 08/20/25 at 15:45; Status DC Rocuronium [place] 50 mg STK-MED ONCE .ROUTE; Start 08/20/25 at 15:45; Stop 08/20/25 at 15:45; Status DC Sodium Bicarbonate 400 ml @ As Directed STK-MED ONCE .ROUTE; Start 08/20/25 at 15:46; Stop 08/20/25 at 15:46; Status DC Cefazolin Sodium 1 gm STK-MED ONCE .ROUTE Last administered on 08/20/25at 17:05; Start 08/20/25 at 16:19; Stop 08/20/25 at 16:19; Status DC Vancomycin HCl 250 ml @ As Directed STK-MED ONCE IV Last administered on 08/20/25at 16:40; Start 08/20/25 at 16:40; Stop 08/20/25 at 16:40; Status DC Sodium Chloride 1,000 ml @ 10 mls/hr ONCE IV Last administered on 08/20/25at 22:31; Start 08/20/25 at 17:00; Stop 08/21/25 at 16:59; Status DC Sodium Chloride 10 ml Q8H PRN IVP; Start 08/20/25 at 17:00; Stop 09/19/25 at 16:59 Morphine Sulfate 0.5 mg Q2H PRN IV; Start 08/20/25 at 17:00; Stop 08/20/25 at 18:07; Status DC Morphine Sulfate 1 mg Q2H PRN IV; Start 08/20/25 at 17:00; Stop 08/21/25 at 16:59; Status DC Acetaminophen 650 mg Q4H PRN RC; Start 08/20/25 at 17:00; Stop 09/19/25 at 16:59 Ondansetron HCl 4 mg Q6H PRN IV; Start 08/20/25 at 17:00; Stop 09/19/25 at 16:59 Sodium Chloride 500 ml @ 0 mls/hr AD IV; Start 08/20/25 at 17:00; Stop 09/19/25 at 16:59 Nitroglycerin/ Dextrose 0 ml @ 0 mls/hr AD IV; Start 08/20/25 at 17:00; Stop 08/23/25 at 16:59 Propofol 100 ml @ 0 mls/hr AD PRN IV; Start 08/20/25 at 17:00; Stop 08/24/25 at 16:59 Norepinephrine Bitartrate 8 mg/ Dextrose 250 ml @ 0 mls/hr AD PRN IV; Start 08/20/25 at 17:00; Stop 08/21/25 at 10:49; Status DC Epinephrine HCl 10 mg/Sodium Chloride 250 ml @ 14.091 mls/ hr AD PRN IV; Start 08/20/25 at 17:00; Stop 08/21/25 at 10:49; Status DC Aminocaproic Acid 84995 mg/Sodium Chloride 310 ml @ 25 mls/hr AD IV; Start 08/20/25 at 17:00; Stop 08/21/25 at 05:23; Status DC Calcium Gluconate 1 gm/Sodium Chloride 60 ml @ 200 mls/hr AD PRN IV Last administered on 08/22/25at 21:00; Start 08/20/25 at 17:00; Stop 09/19/25 at 16:59 Magnesium Sulfate 50 ml @ 12.5 mls/hr AD PRN IV Last administered on 08/22/25at 03:58; Start 08/20/25 at 17:00; Stop 09/19/25 at 16:59 Potassium Chloride 100 ml @ 100 mls/hr AD PRN IV Last administered on 08/22/25at 02:41; Start 08/20/25 at 17:00; Stop 09/19/25 at 16:59 Potassium Phosphate 250 ml @ 42 mls/hr AD PRN IV; Start 08/20/25 at 17:00; Stop 09/19/25 at 16:59 Albumin Human 250 ml @ 0 mls/hr AD PRN IV Last administered on 08/20/25at 22:46; Start 08/20/25 at 17:00; Stop 08/20/25 at 22:46; Status DC Acetaminophen 650 mg Q4H PRN PO; Start 08/20/25 at 17:00; Stop 09/19/25 at 16:59 Insulin Human Regular 100 unit/ Sodium Chloride 100 ml @ 0 mls/hr AD IV Last administered on 08/21/25at 15:00; Start 08/20/25 at 17:00; Stop 08/22/25 at 16:59; Status DC Cefazolin Sodium 2 gm Q8H IVPB Last administered on 08/21/25at 13:45; Start 08/20/25 at 22:00; Stop 08/21/25 at 14:01; Status DC Tramadol HCl 25 mg Q6H PRN PO; Start 08/20/25 at 17:00; Stop 08/25/25 at 16:59 Tramadol HCl 50 mg Q6H PRN PO Last administered on 08/22/25at 17:20; Start 08/20/25 at 17:00; Stop 08/25/25 at 16:59 Famotidine 20 mg BID IV Last administered on 08/21/25at 20:17; Start 08/20/25 at 21:00; Stop 08/22/25 at 08:20; Status DC Sodium Bicarbonate 50 meq AD PRN IV Last administered on 08/21/25at 01:19; Start 08/20/25 at 17:00; Stop 08/23/25 at 16:59 Dextrose 50 ml AD PRN IV; Start 08/20/25 at 17:00; Stop 09/19/25 at 16:59 Glucagon 1 mg AD PRN IM; Start 08/20/25 at 17:00; Stop 09/19/25 at 16:59 Amiodarone HCL/ Dextrose 100 ml @ As Directed STK-MED ONCE .ROUTE; Start 08/20/25 at 16:52; Stop 08/20/25 at 16:52; Status DC Lidocaine HCl 100 mg STK-MED ONCE .ROUTE; Start 08/20/25 at 17:34; Stop 08/20/25 at 17:34; Status DC Morphine Sulfate 0.5 mg Q2H PRN IV; Start 08/20/25 at 18:30; Stop 08/21/25 at 16:59; Status DC Heparin Sodium (Porcine) 10,000 unit STK-MED ONCE .ROUTE; Start 08/20/25 at 18:12; Stop 08/20/25 at 18:12; Status DC Insulin Human Regular 300 unit STK-MED ONCE .ROUTE; Start 08/20/25 at 19:39; Stop 08/20/25 at 19:39; Status DC Dexmedetomidine/ Sodium Chloride 400 mcg PROTOCOL IV Last administered on 08/22/25at 00:35; Start 08/20/25 at 20:30; Stop 09/19/25 at 20:29 Magnesium Sulfate 8.12 meq STK-MED ONCE IJ; Start 08/20/25 at 20:17; Stop 08/20/25 at 20:17; Status DC Vasopressin 20 units STK-MED ONCE .ROUTE; Start 08/20/25 at 20:17; Stop 08/20/25 at 20:17; Status DC Amiodarone HCl 360 mg/Dextrose 207.2 ml @ 33.3 mls/hr AD IV; Start 08/20/25 at 21:00; Stop 08/20/25 at 21:05; Status DC Amiodarone HCl 540 mg/Dextrose 310.8 ml @ 16.7 mls/hr [id number] IV Last administered on 08/21/25at 20:12; Start 08/21/25 at 03:00; Stop 09/20/25 at 02:59 Amiodarone HCL/ Dextrose 207.2 ml @ 33.3 mls/hr AD IV Last administered on 08/20/25at 21:24; Start 08/20/25 at 21:30; Stop 08/21/25 at 10:49; Status DC Albumin Human 250 ml @ 0 mls/hr ONCE ONCE IV Last administered on 08/20/25at 00:00; Start 08/20/25 at 00:00; Stop 08/20/25 at 23:58; Status DC Lidocaine HCl/ Dextrose 250 ml @ 0 mls/hr PROTOCOL IV; Start 08/21/25 at 00:00; Stop 09/20/25 at 00:00 Albumin Human 250 ml @ As Directed STK-MED ONCE IV; Start 08/21/25 at 00:03; Stop 08/21/25 at 00:05; Status DC Vancomycin HCl 250 ml @ 125 mls/hr Q8H IV; Start 08/21/25 at 08:00; Stop 08/21/25 at 06:28; Status DC Vancomycin HCl 250 ml @ 125 mls/hr Q8H IV Last administered on 08/21/25at 08:15; Start 08/21/25 at 06:30; Stop 08/21/25 at 08:35; Status DC Vancomycin HCl 250 ml @ 125 mls/hr Q8H IV Last administered on 08/22/25at 17:21; Start 08/21/25 at 16:30; Stop 08/31/25 at 16:29 Furosemide 20 mg Q12H IV Last administered on 08/22/25at 11:53; Start 08/21/25 at 11:30; Stop 08/22/25 at 14:17; Status DC Acetaminophen 1,000 mg Q6H6 IVPB Last administered on 08/22/25at 17:21; Start 08/21/25 at 12:00; Stop 09/20/25 at 11:59 Heparin Sodium/ Dextrose 250 ml @ 0 mls/hr PROTOCOL IV Last administered on 08/22/25at 08:30; Start 08/21/25 at 11:30; Stop 09/20/25 at 11:29 Iron Sucrose 200 mg DAILY IV Last administered on 08/22/25at 11:53; Start 08/21/25 at 13:00; Stop 08/23/25 at 13:00 Amiodarone HCl 200 mg BID PO Last administered on 08/22/25at 20:55; Start 08/22/25 at 09:00; Stop 08/29/25 at 21:00 Famotidine 20 mg BID PO Last administered on 08/22/25at 20:55; Start 08/22/25 at 09:00; Stop 09/21/25 at 08:59 Insulin Human Regular INSULIN SLIDING SCAL... ACHS SQ Last administered on 08/22/25at 20:58; Start 08/22/25 at 11:30; Stop 09/21/25 at 11:29 Furosemide 40 mg Q12H IV; Start 08/22/25 at 21:00; Stop 08/22/25 at 14:32; Status DC Furosemide 20 mg Q12H IV Last administered on 08/22/25at 20:56; Start 08/22/25 at 21:00; Stop 09/21/25 at 20:59 CAROLYN BYRNE MD Aug 22, 2025 21:34
[2025-08-23] VITALS (90 sets, daily range): BP systolic 96–157; BP diastolic 44–89; PULSE 73–87; RESP 11–36; TEMP 97.3–98.4; O2SAT 96–99
--- NOTE | 2025-08-23 03:05 | PN ---
SUBJECTIVE: The patient is postop day #2 from a coronary artery bypass grafting with an Impella CP support. The patient is since surgery. She has been doing well. She remains on a mid dose of epinephrine and the Impella CP. Her lidocaine drip was discontinued yesterday with normal arrhythmias. She remains on 0.5 mg/h of amiodarone drip. OBJECTIVE: VITAL SIGNS: Her vital signs revealed a pulse of 80. Blood pressure is 136/76. Respirations 18. Oxygen saturation 98% on nasal cannula oxygen. HEENT: Normocephalic, atraumatic. Extraocular movements are intact. She has a right cervical [place]-Guillaume catheter reading a cardiac index of 2.2 liters per minute per meter squared. This nasal cannula oxygen prongs is under her nose. CHEST: Her chest reveals a bandaged sternotomy wound with chest tubes in place draining serosanguineous fluid. HEART: Her heart is S1 and S2 and regular. LUNGS: Her lungs are unlabored at rest, lying flat in bed. ABDOMEN: Her abdomen reveals moderate obesity. GENITOURINARY: She has the right femoral artery CP Impella at P7 giving 3 liters per minute of flow. She has a Coombs catheter in her bladder. EXTREMITIES: She has SCDs on her lower extremities. ASSESSMENT AND PLAN: 1. Status post Impella supported coronary artery bypass grafting. Continue aspirin, Lasix, heparin drip, and convert amiodarone drip to amiodarone 200 mg twice a day. lactated Ringer's IV fluid. 2. Hypercholesterolemia. Lipitor 80 mg p.o. at bedtime, low cholesterol and cardiac diet. 3. Deep venous thrombosis prophylaxis. Keep SCDs to the lower extremities. The patient is also on heparin drip. 4,. Postoperative acute pulmonary insufficiency. Wean nasal cannula oxygen to maintain oxygen saturations greater than 90%. I spent 30 minutes. The patient is critically ill in the ICU. TID: [id number] RECEIPT: [id number]
[2025-08-23 04:18] LABS: IMMATURE GRANULOCYTE ABSOLUTE 0.13 K/uL (0-1); NUCLEATED RED BLOOD CELLS 2.1 % (0.0-0.19); PLATELET COUNT (AUTO) 94 K/uL (130-400); RED BLOOD CELL COUNT(AUTO) 2.75 MIL/uL (4.00-5.50); RED CELL DISTRIBUTION WIDTH 17.4 % (11.0-15.5); WHITE BLOOD COUNT (AUTO) 10.9 K/uL (4.8-10.8)
[2025-08-23 04:40] LABS: ASPARTATE AMINOTRANSFERASE 94.0 U/L (10-37); CREATININE 0.5 mg/dL (0.5-1.0); GLOMERULAR FILTR. RATE CALC 109.0 mL/min (>90); GLUCOSE,RANDOM 159.0 mg/dL (70-105); SODIUM SERUM 140.0 mmol/L (136-145); TOTAL PROTEIN, SERUM 5.4 g/dL (6.0-8.3); UREA NITROGEN, BLOOD 19.0 mg/dL (7-18)
[2025-08-23 07:12] LABS: IMMATURE GRANULOCYTE ABSOLUTE 0.11 K/uL (0-1); NUCLEATED RED BLOOD CELLS 1.9 % (0.0-0.19); PLATELET COUNT (AUTO) 94 K/uL (130-400); RED BLOOD CELL COUNT(AUTO) 2.76 MIL/uL (4.00-5.50); RED CELL DISTRIBUTION WIDTH 17.4 % (11.0-15.5); WHITE BLOOD COUNT (AUTO) 10.4 K/uL (4.8-10.8)
[2025-08-23 07:57] LABS: INR 1.13 (0.85-1.15)
--- NOTE | 2025-08-23 07:58 | NUR ---
Lab Update Spoke with laboratory in regards to aPTT being canceled for 7:00 AM. White Mixing Operator was present at around 07:15 and I collected the blood via arterial line and handed the specimens to manager of patient. Ensured that aPTT was being run for Heparin Drip Protocol for the next aPTT that was due at 07:00.
[2025-08-23 08:03] LABS: ASPARTATE AMINOTRANSFERASE 86.0 U/L (10-37); CREATININE 0.5 mg/dL (0.5-1.0); GLOMERULAR FILTR. RATE CALC 109.0 mL/min (>90); GLUCOSE,RANDOM 164.0 mg/dL (70-105); SODIUM SERUM 138.0 mmol/L (136-145); TOTAL PROTEIN, SERUM 5.4 g/dL (6.0-8.3); UREA NITROGEN, BLOOD 20.0 mg/dL (7-18)
--- NOTE | 2025-08-23 08:28 | HMCIMG ---
EXAM: CR Chest, 1 view CLINICAL HISTORY: Status post CABG. COMPARISON: Chest radiograph dated 08/22/2025. FINDINGS: The right transjugular [place]-Guillaume catheter tip overlies the main pulmonary artery. Status poststernotomy. Stable cardiomegaly with increasing vascular congestion. Bilateral small to moderate pleural effusions with overlying atelectasis which are worse when compared with the prior exam. No pneumothorax. No acute osseous abnormality. IMPRESSION: Stable cardiomegaly with increasing vascular congestion. Bilateral small to moderate pleural effusions with overlying atelectasis which are worse when compared with the prior exam. /[place]
--- NOTE | 2025-08-23 10:00 | NUR ---
Dr. Guthrie was made aware the high result of fibrinogen but no orders given.
--- NOTE | 2025-08-23 11:00 | NUR ---
IMPELLA IN PLACE. Addendum: 08/23/25 at 1519 by WAQAS COATES PT Amended: Links added.
--- NOTE | 2025-08-23 11:26 | PN ---
[facility] CARDIOLOGY PROGRESS NOTE Date Patient Seen: Aug 23, 2025 Time of Visit: 11:23 Problem List: NSTEMI s/p 3V CABG (RBO-LAD, VG-D2, VG-OM) ICMP CARDIOGENIC SHOCK COCAINE USE Interval History: Seen in ICU VT post operatively, on amiodarone po now Vasopressor support with levophed, epinephrine Impella to R PROCESS ENGINEERING TECHNICIAN at P-[address], on standby Physical Examination: GENERAL: [well appearing, calm, no distress HEAD: [Normal with no signs of head trauma.] EYES: [PERRLA, EOMI, conjunctiva and sclera normal.] ENT: [Hearing grossly intact.] LUNGS: [Clear breath sounds bilaterally. No wheezes, or rhonchi.] HEART: [NSR. Normal S1 and S2 without murmurs, gallop or rub.] VASC: [Peripheral pulses +2 bilaterally radial. doppler R DP. distal extremities are warm] ABD: [soft, nontender.] EXT: [No clubbing, cyanosis or edema. Right PROCESS ENGINEERING TECHNICIAN Impella CP and TVPM insertion site no ecchymoses or bleeding. SKIN: [No rashes or lesions noted. warm, dry NEURO: [no abnormal posturing Laboratory: [ ] Hematology Labs: Test 08/23/25 06:51 Range/Units White Blood Count 10.4 4.8-10.8 K/uL Red Blood Count 2.76 L 4.00-5.50 MIL/uL Hemoglobin 8.3 L 12.0-16.0 g/dL Hematocrit 24.8 L 36-48 % Mean Corpuscular Volume 89.9 79-99 fL Mean Corpuscular Hemoglobin 30.1 27.0-33.0 pg Mean Corpuscular Hemoglobin Concent 33.5 32.0-36.0 g/dL Red Cell Distribution Width 17.4 H 11.0-15.5 % Platelet Count 94 L 130-400 K/uL Mean Platelet Volume 11.8 H 7.5-10.5 fL Immature Granulocyte % (Auto) 1.1 H 0-1 % Neutrophils (%) (Auto) 77.0 40.0-77.0 % Lymphocytes (%) (Auto) 14.2 L 21.0-51.0 % Monocytes (%) (Auto) 6.1 3.0-13.0 % Eosinophils (%) (Auto) 1.5 0.0-8.0 % Basophils (%) (Auto) 0.1 0.0-5.0 % Neutrophils # (Auto) 8.0 H 1.8-7.7 K/uL Lymphocytes # (Auto) 1.5 1.0-4.8 K/uL Monocytes # (Auto) 0.6 0.1-1.0 K/uL Eosinophils # (Auto) 0.16 0.00-0.70 K/uL Basophils # (Auto) 0.01 0.00-0.20 K/uL Absolute Immature Granulocyte (auto 0.11 0-1 K/uL Nucleated Red Blood Cells 1.9 H 0.0-0.19 % Chemistry Labs: Test 08/23/25 06:51 08/23/25 06:37 08/23/25 04:00 Range/Units Sodium Level 138 136-145 mmol/L Potassium Level 4.4 3.5-5.1 mmol/L Chloride Level 106 101-111 mmol/L Carbon Dioxide Level 26 21-32 mmol/L Blood Urea Nitrogen 20 H 7-18 mg/dL Creatinine 0.5 0.5-1.0 mg/dL Glomerular Filtration Rate Calc 109 >90 mL/min Random Glucose 164 H 70-105 mg/dL Total Calcium 8.1 L 8.5-10.1 mg/dL Ionized Calcium 1.14 L 1.15-1.33 MMOL/L Total Bilirubin 0.8 0.2-1.0 mg/dL Aspartate Amino Transf (AST/SGOT) 86 H 10-37 U/L Alanine Aminotransferase (ALT/SGPT) 29 12-78 U/L Alkaline Phosphatase 150 H 50-136 U/L Total Protein 5.4 L 6.0-8.3 g/dL Albumin 2.5 L 3.5-5.0 g/dL Whole Blood Glucose 161 H 70-110 MG/DL Magnesium Level 1.80 1.80-2.40 mg/dL Coagulation Labs: Test 08/23/25 06:51 Range/Units Prothrombin Time 11.8 H 9.6-11.6 SEC Prothromb Time International Ratio 1.13 0.85-1.15 Activated Partial Thromboplast Time 52.8 #H 26.3-35.5 SEC Fibrinogen 583 *H 180-350 mg/dL Diagnostics / Radiology: [Copy/Paste Echos/Imaging Report here] Impression and Plan: 1. Non ST-elevation GA complicated by cardiogenic shock and complete heart block status post Impella placement in the R PROCESS ENGINEERING TECHNICIAN and TVPM to R CFV 2. CAD with total occlusion of the right coronary artery unable to cross with a wire , of note the patient had a 30-40% RCA stenosis in April of this year raising possibility of spasm and or plaque rupture. LV ejection fraction of 50% with hypokinesis of the infero base by echo this admission. Previously known severe disease of pLAD and pLCx. s/p 3V CABG (BRO-LAD, VG-D2, VG-OM with RUPALI- ligation 40 mm Atricure clip 08/20) 3. Cocaine abuse , tox screen positive for cocaine and benzodiazepines 4. Diabetes mellitus type 2 uncontrolled 5. Tobacco dependence 6. Remote CVA 2008 7. Noncompliance history, the patient has been seen in the hospital but has not followed up in the office. 8. Dyslipidemia 9. Urinary tract infection 10. Bacteremia one of two sets possibly contamination 11. Thrombocytopenia # Non ST-elevation GA complicated by cardiogenic shock and complete heart block status post Impella placement in the R PROCESS ENGINEERING TECHNICIAN and TVPM to R CFV #CAD with total occlusion of the right coronary artery unable to cross with a wire , of note the patient had a 30-40% RCA stenosis in April of this year raising possibility of spasm and or plaque rupture. LV ejection fraction of 50% with hypokinesis of the infero base by echo this admission. Previously known severe disease of pLAD and pLCx s/p 3V CABG (BRO-LAD, VG-D2, VG-OM with RUPALI- ligation 40 mm Atricure clip 08/20) - c/w aspirin, Lasix 20 mg q12h IV, lipitor and heparin drip per Impella protocol. Amiodarone 200 mg bid -Wean off of pressors -rest of care per CV surgery PAULINA KAY MD Aug 23, 2025 11:26
[2025-08-23 11:41] LABS: ABG BASE EXCESS 0.4 mmol/L (-2.0-3.0); ABG HCO3 23.7 mmol/L (21.0-28.0); ABG OXYGEN SATURATION 95.0 % (94.0-98.0); ABG PCO2 33 mmHg (32-45); ABG PH 7.472 (7.350-7.450); CARBON MONOXIDE 0.5 % (0.5-1.5); DEVICE COMMENT ALINE; PO2, ARTERIAL BG 76.8 mmHg (83.0-108.0); TEMPERATURE, CELSIUS BG 37.0 CELSIUS (35.5-37.0); VENT MODE, BG 5L NC (ROOM AIR)
--- NOTE | 2025-08-23 11:48 | PN ---
[facility] PROGRESS NOTE Date of Service: Aug 23, 2025 Time of Service: 11:45 SUBJECTIVE: This is a 60-year-old female with underlying history of obesity, coronary artery disease, poorly controlled type 2 diabetes mellitus, history of anemia, history of cocaine use, tobacco use disorder, history of CVA in 2008, who presented to the ER for further evaluation of severe substernal chest pain and shortness of breadth. Patient reports having history of cocaine use with last use of cocaine yesterday. She reports having severe substernal chest pain that started today in it has been associated with dizziness, and generalized malaise. Pain is 10/ 0 in severity. Patient denies any syncope or fall. She has been having lightheadedness with ambulation. She has not been able to follow up with Cardiology as outpatient. She has a previous history of abnormal CT coronary angiography when she was hospitalized in 04/2025 and she was treated medically. With regards to type 2 diabetes mellitus, she reports being on metformin as ou tpatient. On presentation to the hospital, patient was noted to be hypotensive with blood pressure of 80/60 with heart rate of 40 with EKG showing complete heart block. [place] [address], hemoglobin 12.4, platelet count of 412759. BMP showed sodium of 133, potassium 4.8, chloride of 99, BUN of 21, creatinine 1.0, blood glucose of 403, [place] [address]. Chest x-ray showed no acute infiltrates. Patient will be admitted for further management of cardiogenic shock, NSTEMI, complete heart block with history of poorly controlled type 2 diabetes mellitus. Patient will be emergently taken to the laboratory technology teacher for cardiac catheterization/ PCI and tentative plan for MCS support. Patient will be admitted to intensive care unit and she remains critically ill. 08/14 patient remains critically ill requiring Impella and dopamine support. UDS has demonstrated benzos and cocaine 08/15 patient remains on Impella 08/16 patient appears to be resting comfortably in bed. She remains on Impella and dopamine support. She reports she would like to be bathed and wants her hair combed significant and she is feeling better 08/17 patient is on GI soft diet tolerating well. She remains on Impella support 08/18 patient is resting comfortably in bed. She remains on Impella. Tolerating oral intake. 08/19 hemoglobin dropped to 6.5 from 7.0-7.5 yesterday. I agree with transfusing 1 unit PRBC. Patient remains on Impella. Patient is resting comfortably in bed. 08/20 patient is resting comfortably in bed. She remains on Impella support pending recovery for CABG. 08/21 patient underwent CABG x3 yesterday, no complications reported patient remains on Impella the patient is on norepinephrine, amiodarone, dopamine, insulin drip 08/22 postop day 2. From CABG x3. Patient does awaken to verbal stimulation and states she has some chest pain and slight shortness for breath she feels the pain as incisional from her open heart procedure. He is on p.o. amiodarone and being weaned off norepinephrine. 08/23 postop day 3 from CABG x3. Patient is in bed visiting with her son at the bedside. She states she has no shortness for breath, she does have some incisional chest discomfort, no nausea or vomiting or diarrhea. She is off nor epinephrine drip and remains with the Impella assist. REVIEW OF SYSTEMS CONSTITUTIONAL: generalized fatigue, malaise NEUROLOGICAL: Denies headache, amaurosis fugax, motor weakness, sensory deficit, vertigo/spinning sensation, gait abnormalities, or tremors. ENT: No hearing loss, otalgia, otorrhea, rhinitis, rhinorrhea, hoarseness, or sore throat. CARDIOVASCULAR: Mild incisional chest pain, no shortness breath PULMONARY: Denies any shortness of breath, cough, phlegm/sputum, hemoptysis, pleuritic chest pain. SLEEP: Denies morning headaches, daytime somnolence or napping. Denies difficul ty falling asleep, staying asleep, waking from sleep. Denies knowledge of snoring. GASTROINTESTINAL: No nausea, Denies any type of dysphagia to either liquids or solids. Denies vomiting, pyrosis, early satiety, abdominal pain, diarrhea, constipation, or changes in stool consistency or caliber. Denies coffee-ground emesis, hematemesis, hematochezia, or melanotic stools. GENITOURINARY: Denies frequency, urgency, nocturia, hematuria or incontinence (Storage/Irritative symptoms.) Low urinary stream, straining to void, urinary intermittency or hesitancy, splitting of the voiding stream, terminal dribbling. ENDOCRINOLOGIC: Denies polyuria, polydipsia, polyphagia or heat/cold int olerances. HEMATOLOGIC: Denies thrombophilia/previous clots, or coagulopathy/bleeding disorders. ONCOLOGIC: Denies personal history of malignancy. DERMATOLOGIC: Denies rashes or pruritus. PSYCHIATRIC: Denies any suicidal or homicidal ideation. Denies hallucinations. PHYSICAL EXAM GENERAL APPEARANCE: The patient is awake, appears ill and in no distress NEUROLOGICAL: Cranial nerves II-XII grossly intact. Motor is 5/5 in bilateral upper and lower extremities proximal to distal. No sensory deficits. HEENT: Face is symmetric. Pupils are equal and reactive. Extraocular movements are intact. NECK: Supple. No JVD. No thyromegaly. No submental, submandibular, pre- /postauricular, occipital or supraclavicular lymphadenopathy. CHEST: Normal chest expansion. No Telemetry. LUNGS: minimal crackles noted of the bilateral lung bases CARDIOVASCULAR: Regular. S1 and S2 normal. No appreciable rubs, murmurs or gallops. ABDOMEN: Soft, nontender, and nondistended. There is no rebound, voluntary guarding, or rigidity. : Deferred. No Coombs. EXTREMITIES: trace edema noted of the bilateral lower extremities SKIN: No skin breakdown. Vital Signs (last 8hr) Date Time Temp Pulse Resp B/P (MAP) Pulse Ox O2 Delivery O2 Flow Rate FiO2 08/23/25 08:00 97.3 08/23/25 06:45 73 22 105/68 (80) 97 127/74 (91) 08/23/25 06:30 80 23 119/62 (81) 96 137/83 (101) 08/23/25 06:24 80 20 N/Cannula Low lpm 5.0 40 08/23/25 06:15 76 23 101/63 (76) 96 130/77 (94) 08/23/25 06:00 74 20 104/64 (77) 96 40 132/78 (96) 08/23/25 05:45 74 21 100/52 (68) 97 129/78 (95) 08/23/25 05:30 77 18 112/61 (78) 97 127/74 (91) 08/23/25 05:15 80 22 123/74 (90) 96 149/85 (106) 08/23/25 05:00 80 18 104/62 (76) 96 40 131/75 (93) 08/23/25 04:45 80 19 103/65 (78) 96 138/81 (100) 08/23/25 04:30 80 26 105/65 (78) 95 143/86 (105) 08/23/25 04:15 75 19 97/60 (72) 97 125/73 (90) 08/23/25 04:00 98.4 80 19 109/51 (70) 97 40 130/80 (97) 08/23/25 04:00 97 Nasal Cannula* 5 40 LABS: Laboratory: Test 08/23/25 11:40 08/23/25 11:23 08/23/25 06:51 08/23/25 04:00 Range/Units Blood Gas Specimen Type Arterial Arterial Blood pH 7.472 H 7.350-7.450 Arterial Blood Partial Pressure CO2 33 32-45 mmHg Arterial Blood Partial Pressure O2 76.8 L 83.0-108.0 mmHg Arterial Blood HCO3 23.7 21.0-28.0 mmol/L Arterial Blood Oxygen Saturation 95.0 94.0-98.0 % Arterial Blood Base Excess 0.4 -2.0-3.0 mmol/L Hemoglobin (Blood Gas) 9.4 L 12.0-16.0 g/dL Sodium (Blood Gas) 135 L 136-145 MMOL/L Bedside Potassium (Blood Gas) 3.9 3.4-4.5 MMOL/L Bedside Chloride (Blood Gas) 103 98-107 MMOL/L Bedside Glucose (Blood Gas) 195 H 65-95 MG/DL Bedside Ionized Calcium (Blood Gas) 1.16 1.15-1.33 MMOL/L Bedside Lactic Acid (Blood Gas) 1.04 H 0.36-0.75 MMOL/L Blood Gas Temperature 37.0 35.5-37.0 CELSIUS Blood Gas Flow-by 5.00 0.00-15.00 L/min Blood Gas Vent Mode 5L NC ROOM AIR FiO2 40.0 % Blood Gas Specimen Comment FAUSTO Whole Blood Glucose 178 H 70-110 MG/DL White Blood Count 10.4 4.8-10.8 K/uL Red Blood Count 2.76 L 4.00-5.50 MIL/uL Hemoglobin 8.3 L 12.0-16.0 g/dL Hematocrit 24.8 L 36-48 % Mean Corpuscular Volume 89.9 79-99 fL Mean Corpuscular Hemoglobin 30.1 27.0-33.0 pg Mean Corpuscular Hemoglobin Concent 33.5 32.0-36.0 g/dL Red Cell Distribution Width 17.4 H 11.0-15.5 % Platelet Count 94 L 130-400 K/uL Mean Platelet Volume 11.8 H 7.5-10.5 fL Immature Granulocyte % (Auto) 1.1 H 0-1 % Neutrophils (%) (Auto) 77.0 40.0-77.0 % Lymphocytes (%) (Auto) 14.2 L 21.0-51.0 % Monocytes (%) (Auto) 6.1 3.0-13.0 % Eosinophils (%) (Auto) 1.5 0.0-8.0 % Basophils (%) (Auto) 0.1 0.0-5.0 % Neutrophils # (Auto) 8.0 H 1.8-7.7 K/uL Lymphocytes # (Auto) 1.5 1.0-4.8 K/uL Monocytes # (Auto) 0.6 0.1-1.0 K/uL Eosinophils # (Auto) 0.16 0.00-0.70 K/uL Basophils # (Auto) 0.01 0.00-0.20 K/uL Absolute Immature Granulocyte (auto 0.11 0-1 K/uL Nucleated Red Blood Cells 1.9 H 0.0-0.19 % Prothrombin Time 11.8 H 9.6-11.6 SEC Prothromb Time International Ratio 1.13 0.85-1.15 Activated Partial Thromboplast Time 52.8 #H 26.3-35.5 SEC Fibrinogen 583 *H 180-350 mg/dL Sodium Level 138 136-145 mmol/L Potassium Level 4.4 3.5-5.1 mmol/L Chloride Level 106 101-111 mmol/L Carbon Dioxide Level 26 21-32 mmol/L Blood Urea Nitrogen 20 H 7-18 mg/dL Creatinine 0.5 0.5-1.0 mg/dL Glomerular Filtration Rate Calc 109 >90 mL/min Random Glucose 164 H 70-105 mg/dL Total Calcium 8.1 L 8.5-10.1 mg/dL Ionized Calcium 1.14 L 1.15-1.33 MMOL/L Total Bilirubin 0.8 0.2-1.0 mg/dL Aspartate Amino Transf (AST/SGOT) 86 H 10-37 U/L Alanine Aminotransferase (ALT/SGPT) 29 12-78 U/L Alkaline Phosphatase 150 H 50-136 U/L Total Protein 5.4 L 6.0-8.3 g/dL Albumin 2.5 L 3.5-5.0 g/dL Magnesium Level 1.80 1.80-2.40 mg/dL Test 08/22/25 16:50 Range/Units Vancomycin Level Trough 16.7 # 10.0-20.0 UG/ML Current Medications Medications (Trade) Dose Ordered Sig/Elmer Route PRN Reason Start Time Stop Time Status Last Admin Dose Admin Acetaminophen (TYLenol 325MG TAB) 650 mg Q4H PRN PO Temp >38.3C(AFTER EXTUBATION) 08/20/25 17:00 09/19/25 16:59 Acetaminophen (TYLenol 325MG TAB) 650 mg Q6H PRN PO MILD PAIN (1-3) 08/13/25 16:30 09/12/25 16:29 08/23/25 11:01 650 MG Acetaminophen (TYLenol 500MG TAB) 500 mg Q6H PRN PO TEMP < 101.1 AND/OR HEADACHE 08/14/25 14:30 09/13/25 14:29 08/20/25 08:23 500 MG Acetaminophen (TYLenol 650MG SUPPOSITORY) 650 mg Q4H PRN RC Temp >38.3C WHILE INTUBATED 08/20/25 17:00 09/19/25 16:59 Acetaminophen (acetaMINOPHEN 1,000MG/100ML) 1,000 mg Q6H6 IVPB 08/21/25 12:00 09/20/25 11:59 08/23/25 05:41 1,000 MG Albumin Human 50 ml @ 0 mls/hr BID IV 08/18/25 09:00 08/23/25 08:59 DC 08/22/25 20:56 100 MLS/HR Albumin Human 250 ml @ 0 mls/hr AD PRN IV IF HEMODYNAMICALLY UNSTABLE 08/20/25 17:00 08/20/25 22:46 DC 08/20/25 22:46 0 MLS/HR Aminocaproic Acid 15549 mg/Sodium Chloride 310 ml @ 25 mls/hr AD IV 08/20/25 17:00 08/21/25 05:23 DC Aminocaproic Acid 74666 mg/Sodium Chloride 480 ml @ 0 mls/hr AD PRN IV BLEEDING CONTROL 08/20/25 08:00 09/19/25 07:59 Aminocaproic Acid 13880 mg/Sodium Chloride 480 ml @ 0 mls/hr AD PRN IV BLEEDING CONTROL 08/20/25 09:00 08/20/25 09:03 DC Amiodarone HCl (pacERONE 200MG) 200 mg BID PO 08/22/25 09:00 08/29/25 21:00 08/23/25 09:52 200 MG Amiodarone HCl 360 mg/Dextrose 207.2 ml @ 33.3 mls/hr AD IV 08/20/25 21:00 08/20/25 21:05 DC Amiodarone HCl 540 mg/Dextrose 310.8 ml @ 16.7 mls/hr [id number] IV 08/21/25 03:00 09/20/25 02:59 08/21/25 20:12 16.7 MLS/HR Amiodarone HCL/ Dextrose 207.2 ml @ 33.3 mls/hr AD IV 08/20/25 21:30 08/21/25 10:49 DC 08/20/25 21:24 33.3 MLS/HR Aspirin (Aspirin 81mg Chew Tab) 81 mg DAILY PO 08/14/25 09:00 09/13/25 08:59 08/23/25 09:53 81 MG Atorvastatin Calcium (LIPItor 40MG) 40 mg HS PO 08/13/25 21:00 09/12/25 20:59 08/22/25 20:55 40 MG Bisacodyl (DulcoLAX) 10 mg DAILY RC 08/17/25 09:00 08/20/25 08:59 DC 08/18/25 07:58 10 MG Calcium Carbonate (Tums 500 Mg Chew Tab) 500 tab QID PRN PO HEARTBURN 08/19/25 12:00 08/20/25 16:32 DC 08/20/25 05:10 1 TAB Calcium Gluconate 1 gm/Sodium Chloride 60 ml @ 200 mls/hr AD PRN IV HYPOCALCEMIA 08/20/25 17:00 09/19/25 16:59 08/22/25 21:00 200 MLS/HR Cefazolin Sodium (Ancef) 2 gm ONCALL IVP 08/19/25 19:30 08/21/25 08:36 DC 08/20/25 16:30 2 GM Cefazolin Sodium (Ancef) 2 gm Q8H IVPB 08/20/25 22:00 08/21/25 14:01 DC 08/21/25 13:45 2 GM Ceftriaxone Sodium (Rocephin 2gm Inj) 2 gm Q24H IVPB 08/14/25 11:30 08/24/25 11:29 08/22/25 11:54 2 GM Chlordiazepoxide HCl (LIBrium 25 MG CAP) 25 mg Q2H PRN PO ALCOHOL WITHDRAWAL PROTOCOL 08/14/25 14:30 08/20/25 16:32 DC 08/16/25 23:38 25 MG Chlordiazepoxide HCl (LIBrium 25 MG CAP) 50 mg Q1H PRN PO ALCOHOL WITHDRAWAL PROTOCOL 08/14/25 14:30 08/20/25 16:32 DC Dexmedetomidine/ Sodium Chloride (PRECEdex 400MCG/ 100ML-NS) 400 mcg PROTOCOL IV 08/20/25 20:30 09/19/25 20:29 08/22/25 00:35 400 MCG Dextrose (D50w) 50 ml AD PRN IV HYPOGLYCEMIA PROTOCOL 08/20/25 17:00 09/19/25 16:59 Dextrose (D50w) 50 ml AD PRN IV HYPOGLYCEMIA PROTOCOL 08/13/25 20:00 08/20/25 22:03 DC Diphenhydramine HCl (BENAdryl INJ) 25 mg ONCE PRN IV ITCHING 08/15/25 23:00 08/17/25 22:59 DC Docusate Sodium (COLace 100MG CAP) 100 mg BID PRN PO CONSTIPATION 08/14/25 11:00 09/13/25 10:59 Dopamine HCl/ Dextrose 250 ml @ 0 mls/hr PROTOCOL IV 08/13/25 16:00 09/12/25 15:59 08/16/25 16:41 3 MLS/HR Epinephrine HCl 10 mg/Sodium Chloride 250 ml @ 14.091 mls/ hr AD PRN IV POST-OP CARDIOVASCULAR ORDERS 08/20/25 17:00 08/21/25 10:49 DC Epinephrine HCl 10 mg/Sodium Chloride 250 ml @ 0 mls/hr AD PRN IV TITRATE 08/20/25 08:00 09/19/25 07:59 08/22/25 04:22 6.8 MLS/HR Epinephrine HCl 10 mg/Sodium Chloride 250 ml @ 0 mls/hr AD PRN IV TITRATE 08/20/25 09:00 08/20/25 09:03 DC Famotidine (Pepcid 20mg Vial) 20 mg BID IV 08/20/25 21:00 08/22/25 08:20 DC 08/21/25 20:17 20 MG Famotidine (Pepcid 20mg Tab) 20 mg BID PO 08/22/25 09:00 09/21/25 08:59 08/23/25 09:53 20 MG Folic Acid (FOLic ACID 1 MG TABLET) 1 mg DAILY PO 08/15/25 09:00 08/17/25 09:01 DC 08/17/25 07:46 1 MG Furosemide (LASix 20MG VIAL) 20 mg Q12H IV 08/21/25 11:30 08/22/25 14:17 DC 08/22/25 11:53 20 MG Furosemide (LASix 20MG VIAL) 20 mg Q12H IV 08/22/25 21:00 08/23/25 11:37 DC 08/23/25 09:50 20 MG Furosemide (LASix 20MG VIAL) 40 mg Q12H IV 08/22/25 21:00 08/22/25 14:32 DC Furosemide (LASix 40MG VIAL) 40 mg Q12H IV 08/23/25 11:30 09/22/25 11:29 Gabapentin (NEURontin 300 MG CAP) 300 mg TID PO 08/23/25 14:00 09/22/25 13:59 Glucagon (Glucagon 1mg Kit) 1 mg AD PRN IM HYPOGLYCEMIA PROTOCOL 08/20/25 17:00 09/19/25 16:59 Glucagon (Glucagon 1mg Kit) 1 mg AD PRN IM HYPOGLYCEMIA PROTOCOL 08/13/25 20:00 08/21/25 10:49 DC Heparin Sodium (Porcine) (HEParin 5,000 UNIT VIAL) *calculation based on ACTUAL B... AD PRN IV HEPARIN PROTOCOL 08/13/25 16:30 08/20/25 16:32 DC 08/17/25 04:46 3,175 UNIT Heparin Sodium/ Dextrose 250 ml @ 0 mls/hr PROTOCOL IV 08/21/25 11:30 09/20/25 11:29 08/22/25 08:30 12.2 MLS/HR Heparin Sodium/ Dextrose 250 ml @ 0 mls/hr Q6H IV 08/13/25 16:30 08/20/25 16:32 DC 08/19/25 22:03 11.78 MLS/HR Insulin Glargine (LANtus 100 UNITS/ML 10 ML VIAL) 5 units BID@0730,2100 SQ 08/16/25 21:00 08/17/25 09:31 DC 08/16/25 21:21 5 UNITS Insulin Glargine (LANtus 100 UNITS/ML 10 ML VIAL) 10 units HS SQ 08/13/25 21:00 08/14/25 06:16 DC 08/13/25 20:21 10 UNITS Insulin Glargine (LANtus 100 UNITS/ML 10 ML VIAL) 15 units DAILY SQ 08/23/25 09:00 09/22/25 08:59 08/23/25 09:52 15 UNITS Insulin Glargine (LANtus 100 UNITS/ML 10 ML VIAL) 20 units DAILY SQ 08/14/25 09:00 08/15/25 07:24 DC 08/14/25 08:01 20 UNITS Insulin Glargine (LANtus 100 UNITS/ML 10 ML VIAL) 30 units DAILY SQ 08/15/25 09:00 08/16/25 07:19 DC 08/15/25 08:28 30 UNITS Insulin Glargine (LANtus 100 UNITS/ML 10 ML VIAL) 35 units DAILY SQ 08/16/25 09:00 08/19/25 07:35 DC 08/18/25 07:59 35 UNITS Insulin Glargine (LANtus 100 UNITS/ML 10 ML VIAL) 42 units DAILY SQ 08/19/25 09:00 08/20/25 06:22 DC 08/19/25 09:40 42 UNITS Insulin Glargine (LANtus 100 UNITS/ML 10 ML VIAL) 45 units DAILY SQ 08/20/25 09:00 08/20/25 16:32 DC Insulin Human Lispro (HumaLOG LISpro 100 UNIT/ML 3ML) INSULIN SLIDING SCAL... ACHS SQ 08/16/25 21:00 08/17/25 09:31 DC Insulin Human Regular (humuLIN R 100 UNIT/ML 3ML) 5 unit TIDAC SQ 08/14/25 17:00 08/15/25 07:24 DC 08/15/25 07:03 5 UNIT Insulin Human Regular (humuLIN R 100 UNIT/ML 3ML) 8 unit TIDAC SQ 08/15/25 07:30 08/15/25 22:46 DC 08/15/25 16:02 8 UNIT Insulin Human Regular (humuLIN R 100 UNIT/ML 3ML) 10 unit TIDAC SQ 08/16/25 07:30 08/17/25 21:12 DC 08/17/25 16:09 10 UNIT Insulin Human Regular (humuLIN R 100 UNIT/ML 3ML) 12 unit TIDAC SQ 08/18/25 07:30 08/18/25 20:19 DC 08/18/25 16:39 12 UNIT Insulin Human Regular (humuLIN R 100 UNIT/ML 3ML) 16 unit TIDAC SQ 08/19/25 07:30 08/20/25 06:22 DC 08/19/25 16:47 16 UNIT Insulin Human Regular (humuLIN R 100 UNIT/ML 3ML) 17 unit TIDAC SQ 08/20/25 07:30 08/20/25 16:32 DC Insulin Human Regular (humuLIN R 100 UNIT/ML 3ML) INSULIN SLIDING SCAL... ACHS SQ 08/17/25 16:30 08/20/25 16:32 DC 08/19/25 21:31 8 UNIT Insulin Human Regular (humuLIN R 100 UNIT/ML 3ML) INSULIN SLIDING SCAL... ACHS SQ 08/22/25 11:30 08/22/25 21:32 DC 08/22/25 20:58 3 UNIT Insulin Human Regular (humuLIN R 100 UNIT/ML 3ML) INSULIN SLIDING SCAL... ACHS SQ 08/23/25 07:30 09/22/25 07:29 Insulin Human Regular (humuLIN R 100 UNIT/ML 3ML) INSULIN SLIDING SCAL... ACHS SQ 08/13/25 16:30 08/16/25 20:46 DC 08/16/25 20:01 4 UNIT Insulin Human Regular 100 unit/ Sodium Chloride 100 ml @ 0 mls/hr AD IV 08/20/25 17:00 08/22/25 16:59 DC 08/21/25 15:00 5 MLS/HR Iron Sucrose (VenoFER) 200 mg DAILY IV 08/21/25 13:00 08/23/25 09:43 DC 08/22/25 11:53 200 MG Iron Sucrose (VenoFER) 200 mg DAILY IV 08/23/25 09:00 09/22/25 08:59 08/23/25 10:44 200 MG Lidocaine (Lidocaine Patch 4%) 1 each DAILY TP 08/19/25 09:00 09/18/25 08:59 08/23/25 09:55 1 EACH Lidocaine HCl/ Dextrose 250 ml @ 0 mls/hr PROTOCOL IV 08/21/25 00:00 09/20/25 00:00 Magnesium Sulfate 50 ml @ 12.5 mls/hr AD PRN IV MAG LEVEL LESS THAN 2.0 08/20/25 17:00 09/19/25 16:59 08/23/25 05:42 12.5 MLS/HR Magnesium Sulfate 50 ml @ 0 mls/hr PROTOCOL IV 08/13/25 16:30 08/21/25 10:49 DC 08/21/25 05:58 25 MLS/HR Morphine Sulfate (morPHINE 2MG SYG) 0.5 mg Q2H PRN IV MODERATE PAIN (4-6) 08/20/25 17:00 08/20/25 18:07 DC Morphine Sulfate (morPHINE 2MG SYG) 2 mg Q6H PRN IVP SEVERE PAIN (7-10) 08/19/25 18:00 08/20/25 16:32 DC 08/19/25 17:50 2 MG Morphine Sulfate (morPHINE 4MG SYG) 0.5 mg Q2H PRN IV MODERATE PAIN (4-6) 08/20/25 18:30 08/21/25 16:59 DC Morphine Sulfate (morPHINE 4MG SYG) 1 mg Q2H PRN IV SEVERE PAIN (7-10) 08/20/25 17:00 08/21/25 16:59 DC Morphine Sulfate (morPHINE 4MG SYG) 2 mg Q6H PRN IVP SEVERE PAIN (7-10) 08/14/25 09:30 08/19/25 12:29 DC 08/19/25 12:22 2 MG Multivitamins Therapeutic (Multivitamin Tablet) 1 tab DAILY PO 08/15/25 09:00 09/14/25 08:59 08/23/25 09:53 1 TAB Nitroglycerin/ Dextrose 0 ml @ 0 mls/hr AD IV 08/20/25 17:00 08/23/25 16:59 Nitroglycerin/ Dextrose 250 ml @ 0 mls/hr PROTOCOL IV 08/20/25 03:30 08/20/25 16:32 DC 08/20/25 03:12 1.5 MLS/HR Norepinephrine 250 ml @ 0 mls/hr PROTOCOL IV 08/13/25 15:30 08/20/25 08:31 DC Norepinephrine Bitartrate 250 ml @ 0 mls/hr AD PRN IV TITRATE 08/20/25 08:00 09/19/25 07:59 08/21/25 06:40 9.4 MLS/HR Norepinephrine Bitartrate 250 ml @ 0 mls/hr AD PRN IV TITRATE 08/20/25 09:00 08/20/25 09:03 DC Norepinephrine Bitartrate 8 mg/ Dextrose 250 ml @ 0 mls/hr AD PRN IV POST-OP CARDIOVASCULAR ORDERS 08/20/25 17:00 08/21/25 10:49 DC Ondansetron HCl (zoFRAN 4MG INJ) 4 mg Q4H PRN IV NAUSEA 08/14/25 14:30 08/20/25 16:32 DC 08/14/25 14:17 4 MG Ondansetron HCl (zoFRAN 4MG INJ) 4 mg Q6H PRN IV NAUSEA/VOMITING 08/20/25 17:00 09/19/25 16:59 Ondansetron HCl (zoFRAN 4MG INJ) 4 mg Q6H PRN IVP NAUSEA/VOMITING 08/13/25 16:30 08/14/25 14:08 DC Pantoprazole Sodium (PROTonix 40MG INJ) 40 mg Q12H IVP 08/17/25 16:30 08/20/25 16:32 DC 08/20/25 03:53 40 MG Pantoprazole Sodium (PROTonix 40MG INJ) 40 mg Q24H IVP 08/13/25 16:30 08/17/25 11:10 DC 08/16/25 16:07 40 MG Pharmacy Profile Note (Pharmacy Communication) 1 each PROTOCOL PRN MISC ETOH Withdrawal Score changes 08/14/25 14:30 08/14/25 14:08 DC Polyethylene Glycol (MIRalax 3350 17 GM POWD.PACK) 17 gm DAILY PO 08/15/25 09:00 09/14/25 08:59 08/23/25 09:56 17 GM Potassium Phosphate 250 ml @ 42 mls/hr AD PRN IV LOW PHOS LEVEL 08/20/25 17:00 09/19/25 16:59 Potassium Chloride 100 ml @ 100 mls/hr AD PRN IV HYPOKALEMIA 08/20/25 17:00 09/19/25 16:59 08/23/25 05:43 100 MLS/HR Potassium Chloride 100 ml @ 100 mls/hr AD PRN IV POTASSIUM PROTOCOL 08/13/25 16:30 08/20/25 16:32 DC 08/16/25 16:07 100 MLS/HR Potassium Chloride (K-Dur/Klor-Con 20meq) 20 meq AD PRN PO POTASSIUM PROTOCOL 08/13/25 16:30 08/20/25 16:32 DC 08/15/25 08:23 20 MEQ Potassium Chloride (KCl 10% Elixir 20meq/15ml) 20 meq AD PRN PO POTASSIUM PROTOCOL 08/13/25 16:30 08/20/25 16:32 DC Promethazine HCl (Phenergan) 25 mg Q6H PRN PO NAUSEA 08/14/25 14:30 08/20/25 16:32 DC Propofol 100 ml @ 0 mls/hr AD PRN IV SEDATION 08/20/25 17:00 08/24/25 16:59 Sodium Bicarbonate 25 meq/Dextrose 1,000 ml @ 0 mls/hr Q0M IV 08/14/25 00:30 09/13/25 00:29 08/20/25 23:15 50 MLS/HR Sodium Bicarbonate 25 meq/Dextrose 1,000 ml @ 0 mls/hr Q0M IVP 08/14/25 00:30 08/14/25 00:15 DC Sodium Bicarbonate (Sodium Bicarb 50meq 50ml Vial) 50 meq AD PRN IV OTHER[SEE DOSING INSTRUCTIONS] 08/20/25 17:00 08/23/25 16:59 08/21/25 01:19 50 MEQ Sodium Chloride 500 ml @ 500 mls/hr Q1H IV 08/20/25 00:33 08/20/25 03:16 DC 08/20/25 00:53 500 MLS/HR Sodium Chloride 500 ml @ 0 mls/hr AD IV 08/20/25 17:00 09/19/25 16:59 Sodium Chloride 1,000 ml @ 10 mls/hr ONCE IV 08/20/25 17:00 08/21/25 16:59 DC 08/20/25 22:31 10 MLS/HR Sodium Chloride (NS Flush 10ml) 10 ml Q8H PRN IVP IV LINE FLUSH 08/20/25 17:00 09/19/25 16:59 Thiamine HCl (Vitamin B-1) 300 mg DAILY IV 08/15/25 09:00 08/17/25 09:01 DC 08/17/25 07:46 300 MG Ticagrelor (BRILinta) 90 mg BID PO 08/14/25 09:00 08/14/25 21:19 DC 08/14/25 20:09 90 MG Tramadol HCl (UltRAM) 25 mg Q6H PRN PO MODERATE PAIN (4-6) 08/20/25 17:00 08/25/25 16:59 Tramadol HCl (UltRAM) 50 mg Q6H PRN PO SEVERE PAIN (7-10) 08/20/25 17:00 08/25/25 16:59 08/22/25 23:24 50 MG Vancomycin HCl 250 ml @ 125 mls/hr Q12H IV 08/18/25 09:00 08/19/25 20:54 DC 08/19/25 09:39 125 MLS/HR Vancomycin HCl 250 ml @ 125 mls/hr Q8H IV 08/19/25 21:30 08/21/25 00:23 DC 08/20/25 22:26 125 MLS/HR Vancomycin HCl 250 ml @ 125 mls/hr Q8H IV 08/21/25 06:30 08/21/25 08:35 DC 08/21/25 08:15 125 MLS/HR Vancomycin HCl 250 ml @ 125 mls/hr Q8H IV 08/21/25 08:00 08/21/25 06:28 DC Vancomycin HCl 250 ml @ 125 mls/hr Q8H IV 08/21/25 16:30 08/31/25 16:29 08/23/25 09:55 125 MLS/HR Vancomycin HCl (Vancomycin Protocol) 1 each AD IV 08/17/25 22:00 08/31/25 21:59 DIAGNOSTICS / RADIOLOGY: [ ] ASSESSMENT: Cardiogenic shock with lactic acidosis, POA NSTEMI/ACS, POA Complete heart block, POA History of multivessel coronary artery disease, POA History of cocaine use disorder, POA Severe nonketotic hyperglycemia, POA History of to poorly controlled type 2 diabetes mellitus, POA Lactic acidosis, POA History of anemia, POA History of gastritis, POA History of hypertension, POA History of PTSD/anxiety, POA Obesity, POA Medical noncompliance, POA PLAN: Continue ceftriaxone and cefazolin (surgical prophylaxis) Trend WBCs Follow-up blood cultures O2 nasal cannula as needed Follow up with Critical care, appreciate assistance Continue aspirin, atorvastatin, Brilinta Monitor blood pressure Follow up with CT surgery Follow up with Cardiology, appreciate the assistance of both Cardiology and CT surgery Continue norepinephrine, wean as tolerated Continue dopamine and amiodarone Continue Impella support Continue GI soft diet Continue GI prophylaxis with famotidine No need for IV fluids Trend a.m. BMP Replete electrolytes as necessary Continue heparin drip DVT prophylaxis as above Trend a.m. CBC Follow up With endocrinology Full code Case was discussed with patient's nurse at bedside Critical care Attention time greater than 30 minutes ROSHAN RILEY MD Aug 23, 2025 11:48
--- NOTE | 2025-08-23 14:00 | NUR ---
wAS NOTED THAT [employer] IS NO LONGER WORKING, THE [employer] AND THE [employer] ARE ALSO NO LONGER SHOEING UP FROM THE [facility] [facility]. pATIENT IS NO LONGER ON VASOPRESSORS. DR AYOUB WAS NOTIFIED AND NO ORDRES GIVEN. WILL JUST USE THE NON INVASIVE BP CUFF.
--- NOTE | 2025-08-23 14:13 | PN ---
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, Impella placement Complete heart block, status post transvenous temporary pacemaker placement Acute hypoxic respiratory failure, NSTEMI, POA Bactermia + Staph Cohni urealyticum DM type 2, with hyperglycemia, HGB A1c of 10.7 Cocaine abuse Tobacco use, current smoker History of CVA INTERVAL HISTORY: Patient was seen and examined, patient's chest x-ray has improved, nasal cannula with good sats Continues with the Impella Off pressors Heart rate controlled on oral amiodarone Tolerating diet Afebrile Plan: Follow CT surgeon recs Follow I&Os Wean pressors per protocol Daily chest x-ray Antibiotics and following cultures Impella support Critical care time 49 minutes, this time excludes any time spent on education or procedures. REVIEW OF SYSTEMS: 12 point ROS reviewed with patient. Pertinent positives mentioned above. Otherwise negative. PHYSICAL EXAM: GENERAL: alert, weak, awake oriented x 3 HEENT: EOMI, Sclera non icteric, moist mucosa NECK: Supple, no JVD, trachea midline LUNGS: Clear breath sounds bilaterally. No wheezes HEART: TVP Normal S1 and S2, without murmurs ABD: Abdomen soft, nontender. Bowel sounds present EXT: No clubbing cyanosis or edema NEURO: Alert and oriented to person, follows commands Vital Signs (last 8hr) Date Time Temp Pulse Resp B/P (MAP) Pulse Ox O2 Delivery O2 Flow Rate FiO2 08/23/25 12:55 97.3 08/23/25 08:00 97.3 08/23/25 06:45 73 22 105/68 (80) 97 127/74 (91) 08/23/25 06:30 80 23 119/62 (81) 96 137/83 (101) 08/23/25 06:24 80 20 N/Cannula Low lpm 5.0 40 08/23/25 06:15 76 23 101/63 (76) 96 130/77 (94) LABS: Hematology Labs: Test 08/23/25 06:51 Range/Units White Blood Count 10.4 4.8-10.8 K/uL Red Blood Count 2.76 L 4.00-5.50 MIL/uL Hemoglobin 8.3 L 12.0-16.0 g/dL Hematocrit 24.8 L 36-48 % Mean Corpuscular Volume 89.9 79-99 fL Mean Corpuscular Hemoglobin 30.1 27.0-33.0 pg Mean Corpuscular Hemoglobin Concent 33.5 32.0-36.0 g/dL Red Cell Distribution Width 17.4 H 11.0-15.5 % Platelet Count 94 L 130-400 K/uL Mean Platelet Volume 11.8 H 7.5-10.5 fL Immature Granulocyte % (Auto) 1.1 H 0-1 % Neutrophils (%) (Auto) 77.0 40.0-77.0 % Lymphocytes (%) (Auto) 14.2 L 21.0-51.0 % Monocytes (%) (Auto) 6.1 3.0-13.0 % Eosinophils (%) (Auto) 1.5 0.0-8.0 % Basophils (%) (Auto) 0.1 0.0-5.0 % Neutrophils # (Auto) 8.0 H 1.8-7.7 K/uL Lymphocytes # (Auto) 1.5 1.0-4.8 K/uL Monocytes # (Auto) 0.6 0.1-1.0 K/uL Eosinophils # (Auto) 0.16 0.00-0.70 K/uL Basophils # (Auto) 0.01 0.00-0.20 K/uL Absolute Immature Granulocyte (auto 0.11 0-1 K/uL Nucleated Red Blood Cells 1.9 H 0.0-0.19 % Chemistry Labs: Test 08/23/25 11:23 08/23/25 06:51 08/23/25 04:00 Range/Units Whole Blood Glucose 178 H 70-110 MG/DL Sodium Level 138 136-145 mmol/L Potassium Level 4.4 3.5-5.1 mmol/L Chloride Level 106 101-111 mmol/L Carbon Dioxide Level 26 21-32 mmol/L Blood Urea Nitrogen 20 H 7-18 mg/dL Creatinine 0.5 0.5-1.0 mg/dL Glomerular Filtration Rate Calc 109 >90 mL/min Random Glucose 164 H 70-105 mg/dL Total Calcium 8.1 L 8.5-10.1 mg/dL Ionized Calcium 1.14 L 1.15-1.33 MMOL/L Total Bilirubin 0.8 0.2-1.0 mg/dL Aspartate Amino Transf (AST/SGOT) 86 H 10-37 U/L Alanine Aminotransferase (ALT/SGPT) 29 12-78 U/L Alkaline Phosphatase 150 H 50-136 U/L Total Protein 5.4 L 6.0-8.3 g/dL Albumin 2.5 L 3.5-5.0 g/dL Magnesium Level 1.80 1.80-2.40 mg/dL Coagulation Labs: Test 08/23/25 06:51 Range/Units Prothrombin Time 11.8 H 9.6-11.6 SEC Prothromb Time International Ratio 1.13 0.85-1.15 Activated Partial Thromboplast Time 52.8 #H 26.3-35.5 SEC Fibrinogen 583 *H 180-350 mg/dL DIAGNOSTICS / RADIOLOGY RESULTS: [ ] PLAN NEURO: Minimize central acting medications as possible. Maintain fall precautions, adequate lighting during the day PULMONARY: Supplemental 02 as needed. Maintain aspiration precautions at all times CARDIOVASCULAR: Follow hemodynamics. Vital signs per facility protocol GI & NUTRITION: Continue with nutritional support. Continue stool softeners and laxatives as needed. KIDNEYS & ELECTROLYTES: Strict monitoring of intake, output and overall fluid balance. Avoid nephrotoxic medications to the extent possible. Medications to be dosed according to renal function. Monitor electrolytes and replace as needed ENDOCRINE: Maintain blood glucose between 100-180 at all times. Hypoglycemia protocol in place INFECTIOUS DISEASE: Trend temperature, WBC and procalcitonin level Follow cultures, deescalate antibiotics as soon as possible. Panculture if new onset fever ONCOLOGY/HEMATOLOGY/COAGULATION: Monitor for s/s of bleeding Monitor hemoglobin, coagulation studies as needed SKIN: Pressure ulcer prevention per facility protocol Specialty mattress ORTHO/REHAB: Continue PT/OT Prophylaxis: Continue GI and DVT prophylaxis Code Status: Full Resuscitation Disposition: CHIRAG NGUYỄN PAC Aug 23, 2025 14:13
[2025-08-23] MEDS: GABAPENTIN 300 MG CAPSULE PO SCH (14:32)
[2025-08-23 16:10] LABS: CREATININE 0.6 mg/dL (0.5-1.0); GLOMERULAR FILTR. RATE CALC 104.0 mL/min (>90); GLUCOSE,RANDOM 192.0 mg/dL (70-105); SODIUM SERUM 138.0 mmol/L (136-145); UREA NITROGEN, BLOOD 20.0 mg/dL (7-18)
[2025-08-23 19:49] LABS: ABG BASE EXCESS 2.4 mmol/L (-2.0-3.0); ABG HCO3 25.2 mmol/L (21.0-28.0); ABG OXYGEN SATURATION 93.3 % (94.0-98.0); ABG PCO2 32 mmHg (32-45); ABG PH 7.509 (7.350-7.450); CARBON MONOXIDE 0.8 % (0.5-1.5); PO2, ARTERIAL BG 66.0 mmHg (83.0-108.0); TEMPERATURE, CELSIUS BG 37.0 CELSIUS (35.5-37.0); VENT MODE, BG NC (ROOM AIR)
--- NOTE | 2025-08-23 22:51 | PN ---
Endocrinology progress note DOS: 08/23/25 subjective: Home diabetic regimen: metformin 500 mg bid Hba1c 10.7% glucose runs greater than 180 mg/dl. patient is s/p CABG REVIEW OF SYSTEMS CONSTITUTIONAL: generalized fatigue, malaise NEUROLOGICAL: Denies headache, amaurosis fugax, motor weakness, sensory deficit, vertigo/spinning sensation, gait abnormalities, or tremors. ENT: No hearing loss, otalgia, otorrhea, rhinitis, rhinorrhea, hoarseness, or sore throat. CARDIOVASCULAR: chest pain, Shortness of breath improving PULMONARY: Denies any shortness of breath, cough, phlegm/sputum, hemoptysis, pleuritic chest pain. SLEEP: Denies morning headaches, daytime somnolence or napping. Denies difficulty falling asleep, staying asleep, waking from sleep. Denies knowledge of snoring. GASTROINTESTINAL: Denies any type of dysphagia to either liquids or solids. Denies vomiting, pyrosis, early satiety, abdominal pain, diarrhea, constipation, or changes in stool consistency or caliber. Denies coffee-ground emesis, hematemesis, hematochezia, or melanotic stools. GENITOURINARY: Denies frequency, urgency, nocturia, hematuria or incontinence (Storage/Irritative symptoms.) Low urinary stream, straining to void, urinary intermittency or hesitancy, splitting of the voiding stream, terminal dribbling. ENDOCRINOLOGIC: Denies polyuria, polydipsia, polyphagia or heat/cold intolerances. HEMATOLOGIC: Denies thrombophilia/previous clots, or coagulopathy/bleeding disorders. ONCOLOGIC: Denies personal history of malignancy. DERMATOLOGIC: Denies rashes or pruritus. PSYCHIATRIC: Denies any suicidal or homicidal ideation. Denies hallucinations. PAST MEDICAL HISTORY: Coronary artery disease with history of abnormal coronary CT angiography, gastritis, anemia, cocaine use disorder, obesity, PTSD, anxiety disorder, history of NSTEMI in 04/2025, history of CVA in 2008 PAST SURGICAL HISTORY: History of ventral hernia repair 2008, hx of cholecystectomy, hx of C Section PAST SOCIAL HISTORY: Denies active alcohol consumption, intermittently smokes cigarettes as well as has been using cocaine chronically FAMILY HISTORY: Reports family history of heart disease Home medications: Patient does not have list of home medications, family will be bringing list of home medications to be updated Allergies: Patient has allergic reaction to lisinopril Coded Allergies: No Known Drug Allergies (Verified Allergy, Unknown, 05/04/22) lisinopril (Verified Allergy, Unknown, 05/04/22) DIAGNOSTICS / RADIOLOGY: SERVICE 24 REASON: cp ORDERING PHYSICIAN: ZORA OCHOA MD PROCEDURE: CXR1VW - CHEST 1VW EXAM: CR Chest, 1 View. CLINICAL HISTORY: cp COMPARISON: 07/08/25 FINDINGS: LUNGS: The lungs show no infiltrate or other acute finding. PLEURAL SPACES: No pleural effusion or pneumothorax. MEDIASTINUM: The cardiomediastinal silhouette is within normal limits. BONES: No aggressive appearing osseous lesion seen. IMPRESSION: No acute cardiopulmonary pathology is evident. /[place] DICTATED BY: BELKIS KURTZ MD DATE: 08/13/251731 ELECTRONICALLY SIGNED BY: BELKIS KURTZ MD DATE: 08/13/251731 ASSESSMENT: uncontrolled DM-2 Home diabetic regimen: metformin 500 mg bid Hba1c 10.7% glucose runs greater than 180 mg/dl but improving now. off insulin drip now and on low dose ssi. Cardiogenic shock with lactic acidosis, POA cardiology following, s/p CABG procedure. NSTEMI/ACS, POA Complete heart block, POA History of multivessel coronary artery disease, POA History of cocaine use disorder, POA Severe nonketotic hyperglycemia, POA History of to poorly controlled type 2 diabetes mellitus, POA Lactic acidosis, POA History of anemia, POA History of gastritis, POA History of hypertension, POA History of PTSD/anxiety, POA Obesity, POA Medical noncompliance, POA PLAN: continue Lantus 15 units daily and adjust for fasting glucose. start Regular insulin 5 units three times before meals and adjust for post- prandial glucose. increase low dose ssi to medium dose sliding scale insulin. Monitor glucose q x 6 hourly. Continue carb consistent diet. Keep glucose less than 180 mg/dl. Patient will need insulin at discharge. Vitals/Labs Vital Signs Date Time Temp Pulse Resp B/P (MAP) Pulse Ox O2 Delivery O2 Flow Rate FiO2 08/23/25 22:31 80 16 N/Cannula Low lpm 5.0 40 08/23/25 21:45 103/44 (63) 99 110/64 (79) 08/23/25 20:00 98.2 Laboratory Tests 08/23/25 04:00 08/23/25 06:51 08/23/25 15:20 Medications Current Medications Ondansetron HCl 4 mg ONCE ONCE IVP; Start 08/13/25 at 14:30; Stop 08/13/25 at 14:52; Status DC Sodium Chloride 500 ml @ 0 mls/hr ONCE ONCE IV Last administered on 08/13/25at 15:00; Start 08/13/25 at 14:30; Stop 08/13/25 at 14:31; Status DC Heparin Sodium (Porcine) *calculation based on ACTUAL B... AD PRN IV Last administered on 08/17/25at 04:46; Start 08/13/25 at 16:30; Stop 08/20/25 at 16:32; Status DC Heparin Sodium/ Dextrose 250 ml @ 0 mls/hr Q6H IV Last administered on 08/19/25at 22:03; Start 08/13/25 at 16:30; Stop 08/20/25 at 16:32; Status DC Norepinephrine 250 ml @ 0 mls/hr PROTOCOL IV; Start 08/13/25 at 15:30; Stop 08/20/25 at 08:31; Status DC Dopamine HCl/ Dextrose 250 ml @ As Directed STK-MED ONCE IV; Start 08/13/25 at 15:33; Stop 08/13/25 at 15:33; Status DC Aspirin 325 mg STK-MED ONCE .ROUTE; Start 08/13/25 at 15:34; Stop 08/13/25 at 15:33; Status DC Ticagrelor 180 mg ONCE ONCE PO Last administered on 08/13/25at 16:16; Start 08/13/25 at 16:00; Stop 08/13/25 at 16:01; Status DC Morphine Sulfate 1 mg ONCE ONCE IVP Last administered on 08/13/25at 16:23; Start 08/13/25 at 16:00; Stop 08/13/25 at 16:01; Status DC Ticagrelor 90 mg STK-MED ONCE .ROUTE; Start 08/13/25 at 15:50; Stop 08/13/25 at 15:50; Status DC Dopamine HCl/ Dextrose 250 ml @ 0 mls/hr PROTOCOL IV Last administered on 08/16/25at 16:41; Start 08/13/25 at 16:00; Stop 09/12/25 at 15:59 Aspirin 325 mg ONCE ONCE PO Last administered on 08/13/25at 16:15; Start 08/13/25 at 16:00; Stop 08/13/25 at 16:01; Status DC Lidocaine HCl 20 ml STK-MED ONCE .ROUTE; Start 08/13/25 at 16:12; Stop 08/13/25 at 16:12; Status DC Iohexol 35,000 mg STK-MED ONCE IV; Start 08/13/25 at 16:12; Stop 08/13/25 at 16:12; Status DC Heparin Sodium (Porcine) 10,000 unit STK-MED ONCE .ROUTE; Start 08/13/25 at 16:12; Stop 08/13/25 at 16:12; Status DC Nicardipine HCl 25 mg STK-MED ONCE IV; Start 08/13/25 at 16:12; Stop 08/13/25 at 16:12; Status DC Heparin Sodium/ Sodium Chloride 1,000 ml @ As Directed STK-MED ONCE IV; Start 08/13/25 at 16:12; Stop 08/13/25 at 16:12; Status DC Nitroglycerin 50 mg STK-MED ONCE .ROUTE; Start 08/13/25 at 16:12; Stop 08/13/25 at 16:12; Status DC Pantoprazole Sodium 40 mg Q24H IVP Last administered on 08/16/25at 16:07; Start 08/13/25 at 16:30; Stop 08/17/25 at 11:10; Status DC Insulin Human Regular INSULIN SLIDING SCAL... ACHS SQ Last administered on 08/16/25at 20:01; Start 08/13/25 at 16:30; Stop 08/16/25 at 20:46; Status DC Insulin Human Regular 5 unit ONCE ONCE IV; Start 08/13/25 at 16:30; Stop 08/13/25 at 16:31; Status DC Fentanyl Citrate 100 mcg STK-MED ONCE .ROUTE; Start 08/13/25 at 16:26; Stop 08/13/25 at 16:26; Status DC Midazolam HCl 2 mg STK-MED ONCE .ROUTE; Start 08/13/25 at 16:27; Stop 08/13/25 at 16:27; Status DC Acetaminophen 650 mg Q6H PRN PO Last administered on 08/23/25at 11:01; Start 08/13/25 at 16:30; Stop 09/12/25 at 16:29 Ondansetron HCl 4 mg Q6H PRN IVP; Start 08/13/25 at 16:30; Stop 08/14/25 at 14:08; Status DC Potassium Chloride 100 ml @ 100 mls/hr AD PRN IV Last administered on 08/16/25at 16:07; Start 08/13/25 at 16:30; Stop 08/20/25 at 16:32; Status DC Potassium Chloride 20 meq AD PRN PO; Start 08/13/25 at 16:30; Stop 08/20/25 at 16:32; Status DC Potassium Chloride 20 meq AD PRN PO Last administered on 08/15/25at 08:23; Start 08/13/25 at 16:30; Stop 08/20/25 at 16:32; Status DC Magnesium Sulfate 50 ml @ 0 mls/hr PROTOCOL IV Last administered on 08/21/25at 05:58; Start 08/13/25 at 16:30; Stop 08/21/25 at 10:49; Status DC Atorvastatin Calcium 40 mg HS PO Last administered on 08/23/25at 21:18; Start 08/13/25 at 21:00; Stop 09/12/25 at 20:59 Heparin Sodium/ Sodium Chloride 500 ml @ As Directed STK-MED ONCE IV; Start 08/13/25 at 17:14; Stop 08/13/25 at 17:14; Status DC Heparin Sodium (Porcine) 10,000 unit STK-MED ONCE .ROUTE; Start 08/13/25 at 18:03; Stop 08/13/25 at 18:03; Status DC Aspirin 81 mg DAILY PO Last administered on 08/23/25at 09:53; Start 08/14/25 at 09:00; Stop 09/13/25 at 08:59 Insulin Glargine 10 units HS SQ Last administered on 08/13/25at 20:21; Start 08/13/25 at 21:00; Stop 08/14/25 at 06:16; Status DC Dextrose 50 ml AD PRN IV; Start 08/13/25 at 20:00; Stop 08/20/25 at 22:03; Status DC Glucagon 1 mg AD PRN IM; Start 08/13/25 at 20:00; Stop 08/21/25 at 10:49; Status DC Sodium Bicarbonate 25 meq/Dextrose 1,000 ml @ 0 mls/hr Q0M IVP; Start 08/14/25 at 00:30; Stop 08/14/25 at 00:15; Status DC Sodium Bicarbonate 25 meq/Dextrose 1,000 ml @ 0 mls/hr Q0M IV Last administered on 08/20/25at 23:15; Start 08/14/25 at 00:30; Stop 09/13/25 at 00:29 Glycerin 1 supp ONCE ONCE RC Last administered on 08/14/25at 05:56; Start 08/14/25 at 05:00; Stop 08/14/25 at 05:06; Status DC Insulin Glargine 20 units DAILY SQ Last administered on 08/14/25at 08:01; Start 08/14/25 at 09:00; Stop 08/15/25 at 07:24; Status DC Ticagrelor 90 mg BID PO Last administered on 08/14/25at 20:09; Start 08/14/25 at 09:00; Stop 08/14/25 at 21:19; Status DC Morphine Sulfate 2 mg Q6H PRN IVP Last administered on 08/19/25at 12:22; Start 08/14/25 at 09:30; Stop 08/19/25 at 12:29; Status DC Polyethylene Glycol 17 gm DAILY PO Last administered on 08/23/25at 09:56; Start 08/15/25 at 09:00; Stop 09/14/25 at 08:59 Docusate Sodium 100 mg BID PRN PO; Start 08/14/25 at 11:00; Stop 09/13/25 at 10:59 Ceftriaxone Sodium 2 gm Q24H IVPB Last administered on 08/23/25at 12:16; Start 08/14/25 at 11:30; Stop 08/24/25 at 11:29 Insulin Human Regular 5 unit TIDAC SQ Last administered on 08/15/25at 07:03; Start 08/14/25 at 17:00; Stop 08/15/25 at 07:24; Status DC Chlordiazepoxide HCl 25 mg Q2H PRN PO Last administered on 08/16/25at 23:38; Start 08/14/25 at 14:30; Stop 08/20/25 at 16:32; Status DC Chlordiazepoxide HCl 50 mg Q1H PRN PO; Start 08/14/25 at 14:30; Stop 08/20/25 at 16:32; Status DC Ondansetron HCl 4 mg Q4H PRN IV Last administered on 08/14/25at 14:17; Start 08/14/25 at 14:30; Stop 08/20/25 at 16:32; Status DC Promethazine HCl 25 mg Q6H PRN PO; Start 08/14/25 at 14:30; Stop 08/20/25 at 16:32; Status DC Acetaminophen 500 mg Q6H PRN PO Last administered on 08/20/25at 08:23; Start 08/14/25 at 14:30; Stop 09/13/25 at 14:29 Thiamine HCl 300 mg DAILY IV Last administered on 08/17/25at 07:46; Start 08/15/25 at 09:00; Stop 08/17/25 at 09:01; Status DC Folic Acid 1 mg DAILY PO Last administered on 08/17/25at 07:46; Start 08/15/25 at 09:00; Stop 08/17/25 at 09:01; Status DC Multivitamins Therapeutic 1 tab DAILY PO Last administered on 08/23/25at 09:53; Start 08/15/25 at 09:00; Stop 09/14/25 at 08:59 Pharmacy Profile Note 1 each PROTOCOL PRN MISC; Start 08/14/25 at 14:30; Stop 08/14/25 at 14:08; Status DC Insulin Glargine 30 units DAILY SQ Last administered on 08/15/25at 08:28; Start 08/15/25 at 09:00; Stop 08/16/25 at 07:19; Status DC Insulin Human Regular 8 unit TIDAC SQ Last administered on 08/15/25at 16:02; Start 08/15/25 at 07:30; Stop 08/15/25 at 22:46; Status DC Diphenhydramine HCl 25 mg ONCE ONCE IM; Start 08/15/25 at 21:00; Stop 08/15/25 at 22:52; Status DC Insulin Human Regular 10 unit TIDAC SQ Last administered on 08/17/25at 16:09; Start 08/16/25 at 07:30; Stop 08/17/25 at 21:12; Status DC Diphenhydramine HCl 25 mg ONCE PRN IV; Start 08/15/25 at 23:00; Stop 08/17/25 at 22:59; Status DC Insulin Glargine 35 units DAILY SQ Last administered on 08/18/25at 07:59; Start 08/16/25 at 09:00; Stop 08/19/25 at 07:35; Status DC Bisacodyl 10 mg DAILY RC Last administered on 08/18/25at 07:58; Start 08/17/25 at 09:00; Stop 08/20/25 at 08:59; Status DC Insulin Human Lispro INSULIN SLIDING SCAL... ACHS SQ; Start 08/16/25 at 21:00; Stop 08/17/25 at 09:31; Status DC Insulin Glargine 5 units BID@0730,2100 SQ Last administered on 08/16/25at 21:21; Start 08/16/25 at 21:00; Stop 08/17/25 at 09:31; Status DC Pantoprazole Sodium 40 mg Q12H IVP Last administered on 08/20/25at 03:53; Start 08/17/25 at 16:30; Stop 08/20/25 at 16:32; Status DC Insulin Human Regular INSULIN SLIDING SCAL... ACHS SQ Last administered on 08/19/25at 21:31; Start 08/17/25 at 16:30; Stop 08/20/25 at 16:32; Status DC Insulin Human Regular 12 unit TIDAC SQ Last administered on 08/18/25at 16:39; Start 08/18/25 at 07:30; Stop 08/18/25 at 20:19; Status DC Vancomycin HCl 1 each AD IV; Start 08/17/25 at 22:00; Stop 08/31/25 at 21:59 Vancomycin HCl 250 ml @ 83.333 mls/ hr ONCE ONCE IV Last administered on 08/17/25at 23:05; Start 08/17/25 at 22:30; Stop 08/18/25 at 01:29; Status DC Vancomycin HCl 250 ml @ 125 mls/hr Q12H IV Last administered on 08/19/25at 09:39; Start 08/18/25 at 09:00; Stop 08/19/25 at 20:54; Status DC Albumin Human 50 ml @ 0 mls/hr BID IV Last administered on 08/22/25at 20:56; Start 08/18/25 at 09:00; Stop 08/23/25 at 08:59; Status DC Lidocaine 1 each DAILY TP Last administered on 08/23/25at 09:55; Start 08/19/25 at 09:00; Stop 09/18/25 at 08:59 Lidocaine 1 each ONCE ONCE TP Last administered on 08/18/25at 13:52; Start 08/18/25 at 14:00; Stop 08/18/25 at 14:01; Status DC Diphenhydramine HCl 25 mg ONCE ONCE PO Last administered on 08/18/25at 15:19; Start 08/18/25 at 15:30; Stop 08/18/25 at 15:31; Status DC Insulin Human Regular 16 unit TIDAC SQ Last administered on 08/19/25at 16:47; Start 08/19/25 at 07:30; Stop 08/20/25 at 06:22; Status DC Insulin Glargine 42 units DAILY SQ Last administered on 08/19/25at 09:40; Start 08/19/25 at 09:00; Stop 08/20/25 at 06:22; Status DC Calcium Carbonate 500 tab QID PRN PO Last administered on 08/20/25at 05:10; Start 08/19/25 at 12:00; Stop 08/20/25 at 16:32; Status DC Morphine Sulfate 2 mg Q6H PRN IVP Last administered on 08/19/25at 17:50; Start 08/19/25 at 18:00; Stop 08/20/25 at 16:32; Status DC Cefazolin Sodium 2 gm ONCALL IVP Last administered on 08/20/25at 16:30; Start 08/19/25 at 19:30; Stop 08/21/25 at 08:36; Status DC Vancomycin HCl 250 ml @ 125 mls/hr Q8H IV Last administered on 08/20/25at 22:26; Start 08/19/25 at 21:30; Stop 08/21/25 at 00:23; Status DC Sodium Chloride 500 ml @ 500 mls/hr Q1H IV Last administered on 08/20/25at 00:53; Start 08/20/25 at 00:33; Stop 08/20/25 at 03:16; Status DC Nitroglycerin/ Dextrose 250 ml @ 0 mls/hr PROTOCOL IV Last administered on 08/20/25at 03:12; Start 08/20/25 at 03:30; Stop 08/20/25 at 16:32; Status DC Insulin Glargine 45 units DAILY SQ; Start 08/20/25 at 09:00; Stop 08/20/25 at 16:32; Status DC Insulin Human Regular 17 unit TIDAC SQ; Start 08/20/25 at 07:30; Stop 08/20/25 at 16:32; Status DC Epinephrine HCl 10 mg/Sodium Chloride 250 ml @ 0 mls/hr AD PRN IV Last administered on 08/22/25at 04:22; Start 08/20/25 at 08:00; Stop 09/19/25 at 07:59 Norepinephrine Bitartrate 250 ml @ 0 mls/hr AD PRN IV Last administered on 08/21/25at 06:40; Start 08/20/25 at 08:00; Stop 09/19/25 at 07:59 Aminocaproic Acid 94476 mg/Sodium Chloride 480 ml @ 0 mls/hr AD PRN IV; Start 08/20/25 at 08:00; Stop 09/19/25 at 07:59 Cefazolin Sodium 1 gm STK-MED ONCE .ROUTE; Start 08/20/25 at 08:23; Stop 08/20/25 at 08:23; Status DC Heparin Sodium/ Sodium Chloride 500 ml @ As Directed STK-MED ONCE IV; Start 08/20/25 at 08:23; Stop 08/20/25 at 08:24; Status DC Papaverine HCl 60 mg STK-MED ONCE .ROUTE Last administered on 08/20/25at 17:05; Start 08/20/25 at 08:23; Stop 08/20/25 at 08:24; Status DC Epinephrine HCl 10 mg/Sodium Chloride 250 ml @ 0 mls/hr AD PRN IV; Start 08/20/25 at 09:00; Stop 08/20/25 at 09:03; Status DC Norepinephrine Bitartrate 250 ml @ 0 mls/hr AD PRN IV; Start 08/20/25 at 09:00; Stop 08/20/25 at 09:03; Status DC Aminocaproic Acid 53728 mg/Sodium Chloride 480 ml @ 0 mls/hr AD PRN IV; Start 08/20/25 at 09:00; Stop 08/20/25 at 09:03; Status DC Protamine Sulfate 250 mg STK-MED ONCE IV; Start 08/20/25 at 15:44; Stop 08/20/25 at 15:44; Status DC Lidocaine HCl 100 mg STK-MED ONCE .ROUTE; Start 08/20/25 at 15:44; Stop 08/20/25 at 15:44; Status DC Heparin Sodium (Porcine) 10,000 unit STK-MED ONCE .ROUTE; Start 08/20/25 at 15:44; Stop 08/20/25 at 15:44; Status DC Epinephrine HCl 1 mg STK-MED ONCE .ROUTE; Start 08/20/25 at 15:44; Stop 08/20/25 at 15:44; Status DC Sodium Bicarbonate 200 ml @ As Directed STK-MED ONCE .ROUTE; Start 08/20/25 at 15:44; Stop 08/20/25 at 15:44; Status DC Norepinephrine Bitartrate 4 mg STK-MED ONCE IV; Start 08/20/25 at 15:44; Stop 08/20/25 at 15:44; Status DC Propofol 200 mg STK-MED ONCE IV; Start 08/20/25 at 15:45; Stop 08/20/25 at 15:44; Status DC Fentanyl Citrate 1,000 mcg STK-MED ONCE IJ; Start 08/20/25 at 15:45; Stop 08/20/25 at 15:45; Status DC Midazolam HCl 2 mg STK-MED ONCE .ROUTE; Start 08/20/25 at 15:45; Stop 08/20/25 at 15:45; Status DC Rocuronium [place] 50 mg STK-MED ONCE .ROUTE; Start 08/20/25 at 15:45; Stop 08/20/25 at 15:45; Status DC Sodium Bicarbonate 400 ml @ As Directed STK-MED ONCE .ROUTE; Start 08/20/25 at 15:46; Stop 08/20/25 at 15:46; Status DC Cefazolin Sodium 1 gm STK-MED ONCE .ROUTE Last administered on 08/20/25at 17:05; Start 08/20/25 at 16:19; Stop 08/20/25 at 16:19; Status DC Vancomycin HCl 250 ml @ As Directed STK-MED ONCE IV Last administered on 08/20/25at 16:40; Start 08/20/25 at 16:40; Stop 08/20/25 at 16:40; Status DC Sodium Chloride 1,000 ml @ 10 mls/hr ONCE IV Last administered on 08/20/25at 22:31; Start 08/20/25 at 17:00; Stop 08/21/25 at 16:59; Status DC Sodium Chloride 10 ml Q8H PRN IVP; Start 08/20/25 at 17:00; Stop 09/19/25 at 16:59 Morphine Sulfate 0.5 mg Q2H PRN IV; Start 08/20/25 at 17:00; Stop 08/20/25 at 18:07; Status DC Morphine Sulfate 1 mg Q2H PRN IV; Start 08/20/25 at 17:00; Stop 08/21/25 at 16:59; Status DC Acetaminophen 650 mg Q4H PRN RC; Start 08/20/25 at 17:00; Stop 09/19/25 at 16:59 Ondansetron HCl 4 mg Q6H PRN IV; Start 08/20/25 at 17:00; Stop 09/19/25 at 16:59 Sodium Chloride 500 ml @ 0 mls/hr AD IV; Start 08/20/25 at 17:00; Stop 09/19/25 at 16:59 Nitroglycerin/ Dextrose 0 ml @ 0 mls/hr AD IV; Start 08/20/25 at 17:00; Stop 08/23/25 at 16:59; Status DC Propofol 100 ml @ 0 mls/hr AD PRN IV; Start 08/20/25 at 17:00; Stop 08/24/25 at 16:59 Norepinephrine Bitartrate 8 mg/ Dextrose 250 ml @ 0 mls/hr AD PRN IV; Start 08/20/25 at 17:00; Stop 08/21/25 at 10:49; Status DC Epinephrine HCl 10 mg/Sodium Chloride 250 ml @ 14.091 mls/ hr AD PRN IV; Start 08/20/25 at 17:00; Stop 08/21/25 at 10:49; Status DC Aminocaproic Acid 11517 mg/Sodium Chloride 310 ml @ 25 mls/hr AD IV; Start 08/20/25 at 17:00; Stop 08/21/25 at 05:23; Status DC Calcium Gluconate 1 gm/Sodium Chloride 60 ml @ 200 mls/hr AD PRN IV Last administered on 08/23/25at 22:34; Start 08/20/25 at 17:00; Stop 09/19/25 at 16:59 Magnesium Sulfate 50 ml @ 12.5 mls/hr AD PRN IV Last administered on 08/23/25at 16:51; Start 08/20/25 at 17:00; Stop 09/19/25 at 16:59 Potassium Chloride 100 ml @ 100 mls/hr AD PRN IV Last administered on 08/23/25at 22:33; Start 08/20/25 at 17:00; Stop 09/19/25 at 16:59 Potassium Phosphate 250 ml @ 42 mls/hr AD PRN IV; Start 08/20/25 at 17:00; Stop 09/19/25 at 16:59 Albumin Human 250 ml @ 0 mls/hr AD PRN IV Last administered on 08/20/25at 22:46; Start 08/20/25 at 17:00; Stop 08/20/25 at 22:46; Status DC Acetaminophen 650 mg Q4H PRN PO; Start 08/20/25 at 17:00; Stop 09/19/25 at 16:59 Insulin Human Regular 100 unit/ Sodium Chloride 100 ml @ 0 mls/hr AD IV Last administered on 08/21/25at 15:00; Start 08/20/25 at 17:00; Stop 08/22/25 at 16:59; Status DC Cefazolin Sodium 2 gm Q8H IVPB Last administered on 08/21/25at 13:45; Start 08/20/25 at 22:00; Stop 08/21/25 at 14:01; Status DC Tramadol HCl 25 mg Q6H PRN PO; Start 08/20/25 at 17:00; Stop 08/25/25 at 16:59 Tramadol HCl 50 mg Q6H PRN PO Last administered on 08/23/25at 21:18; Start 08/20/25 at 17:00; Stop 08/25/25 at 16:59 Famotidine 20 mg BID IV Last administered on 08/21/25at 20:17; Start 08/20/25 at 21:00; Stop 08/22/25 at 08:20; Status DC Sodium Bicarbonate 50 meq AD PRN IV Last administered on 08/21/25at 01:19; Start 08/20/25 at 17:00; Stop 08/23/25 at 16:59; Status DC Dextrose 50 ml AD PRN IV; Start 08/20/25 at 17:00; Stop 09/19/25 at 16:59 Glucagon 1 mg AD PRN IM; Start 08/20/25 at 17:00; Stop 09/19/25 at 16:59 Amiodarone HCL/ Dextrose 100 ml @ As Directed STK-MED ONCE .ROUTE; Start 08/20/25 at 16:52; Stop 08/20/25 at 16:52; Status DC Lidocaine HCl 100 mg STK-MED ONCE .ROUTE; Start 08/20/25 at 17:34; Stop 08/20/25 at 17:34; Status DC Morphine Sulfate 0.5 mg Q2H PRN IV; Start 08/20/25 at 18:30; Stop 08/21/25 at 16:59; Status DC Heparin Sodium (Porcine) 10,000 unit STK-MED ONCE .ROUTE; Start 08/20/25 at 18:12; Stop 08/20/25 at 18:12; Status DC Insulin Human Regular 300 unit STK-MED ONCE .ROUTE; Start 08/20/25 at 19:39; Stop 08/20/25 at 19:39; Status DC Dexmedetomidine/ Sodium Chloride 400 mcg PROTOCOL IV Last administered on 08/22/25at 00:35; Start 08/20/25 at 20:30; Stop 09/19/25 at 20:29 Magnesium Sulfate 8.12 meq STK-MED ONCE IJ; Start 08/20/25 at 20:17; Stop 08/20/25 at 20:17; Status DC Vasopressin 20 units STK-MED ONCE .ROUTE; Start 08/20/25 at 20:17; Stop 08/20/25 at 20:17; Status DC Amiodarone HCl 360 mg/Dextrose 207.2 ml @ 33.3 mls/hr AD IV; Start 08/20/25 at 21:00; Stop 08/20/25 at 21:05; Status DC Amiodarone HCl 540 mg/Dextrose 310.8 ml @ 16.7 mls/hr [id number] IV Last administered on 08/21/25at 20:12; Start 08/21/25 at 03:00; Stop 09/20/25 at 02:59 Amiodarone HCL/ Dextrose 207.2 ml @ 33.3 mls/hr AD IV Last administered on 08/20/25at 21:24; Start 08/20/25 at 21:30; Stop 08/21/25 at 10:49; Status DC Albumin Human 250 ml @ 0 mls/hr ONCE ONCE IV Last administered on 08/20/25at 00:00; Start 08/20/25 at 00:00; Stop 08/20/25 at 23:58; Status DC Lidocaine HCl/ Dextrose 250 ml @ 0 mls/hr PROTOCOL IV; Start 08/21/25 at 00:00; Stop 09/20/25 at 00:00 Albumin Human 250 ml @ As Directed STK-MED ONCE IV; Start 08/21/25 at 00:03; Stop 08/21/25 at 00:05; Status DC Vancomycin HCl 250 ml @ 125 mls/hr Q8H IV; Start 08/21/25 at 08:00; Stop 08/21/25 at 06:28; Status DC Vancomycin HCl 250 ml @ 125 mls/hr Q8H IV Last administered on 08/21/25at 08:15; Start 08/21/25 at 06:30; Stop 08/21/25 at 08:35; Status DC Vancomycin HCl 250 ml @ 125 mls/hr Q8H IV Last administered on 08/23/25at 16:51; Start 08/21/25 at 16:30; Stop 08/31/25 at 16:29 Furosemide 20 mg Q12H IV Last administered on 08/22/25at 11:53; Start 08/21/25 at 11:30; Stop 08/22/25 at 14:17; Status DC Acetaminophen 1,000 mg Q6H6 IVPB Last administered on 08/23/25at 18:16; Start 08/21/25 at 12:00; Stop 09/20/25 at 11:59 Heparin Sodium/ Dextrose 250 ml @ 0 mls/hr PROTOCOL IV Last administered on 08/23/25at 14:36; Start 08/21/25 at 11:30; Stop 09/20/25 at 11:29 Iron Sucrose 200 mg DAILY IV Last administered on 08/22/25at 11:53; Start 08/21/25 at 13:00; Stop 08/23/25 at 09:43; Status DC Amiodarone HCl 200 mg BID PO Last administered on 08/23/25at 21:18; Start 08/22/25 at 09:00; Stop 08/29/25 at 21:00 Famotidine 20 mg BID PO Last administered on 08/23/25at 21:19; Start 08/22/25 at 09:00; Stop 09/21/25 at 08:59 Insulin Human Regular INSULIN SLIDING SCAL... ACHS SQ Last administered on 08/22/25at 20:58; Start 08/22/25 at 11:30; Stop 08/22/25 at 21:32; Status DC Furosemide 40 mg Q12H IV; Start 08/22/25 at 21:00; Stop 08/22/25 at 14:32; Status DC Furosemide 20 mg Q12H IV Last administered on 08/23/25at 09:50; Start 08/22/25 at 21:00; Stop 08/23/25 at 11:37; Status DC Insulin Human Regular INSULIN SLIDING SCAL... ACHS SQ Last administered on 08/23/25at 21:20; Start 08/23/25 at 07:30; Stop 09/22/25 at 07:29 Insulin Glargine 15 units DAILY SQ Last administered on 08/23/25at 09:52; Start 08/23/25 at 09:00; Stop 09/22/25 at 08:59 Iron Sucrose 200 mg DAILY IV Last administered on 08/23/25at 10:44; Start 08/23/25 at 09:00; Stop 09/22/25 at 08:59 Furosemide 40 mg Q12H IV Last administered on 08/23/25at 12:16; Start 08/23/25 at 11:30; Stop 09/22/25 at 11:29 Gabapentin 300 mg TID PO Last administered on 08/23/25at 21:19; Start 08/23/25 at 14:00; Stop 09/22/25 at 13:59 CAROLYN BYRNE MD Aug 23, 2025 22:51
[2025-08-24] VITALS (102 sets, daily range): BP systolic 84–130; BP diastolic 32–71; PULSE 77–82; RESP 10–31; TEMP 97.6–98.8; O2SAT 97–99
--- NOTE | 2025-08-24 01:44 | PN ---
SUBJECTIVE: The patient is postop day #3 from Impella supported coronary artery bypass grafting. The patient is off all pressors as of this morning. She continues with the CP at a level of P7. Her chest x-ray, however, shows increased pulmonary edema. Urine output appears to be diuretic dependent. OBJECTIVE: VITAL SIGNS: Temperature 97.3, pulse 73, respirations 22, oxygen saturation 97% on nasal cannula oxygen. Her blood pressure is 105/68. HEENT: Normocephalic, atraumatic. Extraocular movements intact. She has nasal cannula oxygen prongs on her nose. CHEST: She has a right cervical Dickinson-Ugillaume catheter with a cardiac index anywhere from 1.9-2.2 liters/minute/meter squared. Her chest reveals a median sternotomy incision, which is damaged. Her chest tubes are in place. HEART: S1 and S2 and regular. LUNGS: Reveal rales bilaterally, but are remarkably unlabored at rest, lying flat in bed. ABDOMEN: Reveals [id number] obesity. GENITOURINARY: She has a Comobs catheter in her bladder. EXTREMITIES: She has a left radial arterial line. She has SCDs on her lower extremities. She has an Impella CP catheter in her right femoral artery. LABORATORY DATA: Her hemoglobin is 8.3. BUN is 20, creatinine is 0.5. Chest x-ray shows increased pulmonary edema. ASSESSMENT AND PLAN: 1. Status post coronary artery bypass grafting. While her chest x-ray shows edema, we will keep her on full support with the ____. We will increase her Lasix to 40 mg IV b.i.d. Continue aspirin and heparin drip. 2. Postoperative acute pulmonary insufficiency secondary to thoracic surgery. Encourage incentive spirometry. Wean nasal cannula oxygen to maintain oxygen saturation greater than 90%. 3. Hypercholesterolemia. Lipitor at bedtime. Low cholesterol, cardiac diet. 4. Deep vein thrombosis prophylaxis. The patient is currently on a heparin drip. The patient should be covered for prevention of deep vein thrombosis. Time spent was 30 minutes. The patient is critically ill in the ICU. TID: [id number] RECEIPT: [id number]
--- NOTE | 2025-08-24 02:25 | HMCIMG ---
EXAM: CR Chest, 1 view CLINICAL HISTORY: Impella. COMPARISON: Chest radiograph dated 08/23/2025, 6:23. FINDINGS: The right transjugular [place]-Guillaume catheter tip overlies the main pulmonary artery. Status poststernotomy. Stable cardiomegaly with stable vascular congestion. Bilateral small to moderate pleural effusions with overlying atelectasis, which are stable when compared with the prior exam. No pneumothorax. No acute osseous abnormality. IMPRESSION: 1. Stable bilateral small to moderate pleural effusions with overlying atelectasis. 2. Stable cardiomegaly with vascular congestion. 3. Right transjugular [place]-Guillaume catheter tip overlies the main pulmonary artery. 4. Status post sternotomy. 5. No pneumothorax. 6. No acute osseous abnormality. /[place]
[2025-08-24 03:32] LABS: ABG BASE EXCESS 2.6 mmol/L (-2.0-3.0); ABG HCO3 26.1 mmol/L (21.0-28.0); ABG OXYGEN SATURATION 96.6 % (94.0-98.0); ABG PCO2 36 mmHg (32-45); ABG PH 7.480 (7.350-7.450); CARBON MONOXIDE 0.4 % (0.5-1.5); PO2, ARTERIAL BG 96.4 mmHg (83.0-108.0); TEMPERATURE, CELSIUS BG 37.0 CELSIUS (35.5-37.0); VENT MODE, BG 5LNC (ROOM AIR)
[2025-08-24 04:17] LABS: IMMATURE GRANULOCYTE ABSOLUTE 0.12 K/uL (0-1); NUCLEATED RED BLOOD CELLS 1.4 % (0.0-0.19); PLATELET COUNT (AUTO) 90 K/uL (130-400); RED BLOOD CELL COUNT(AUTO) 2.80 MIL/uL (4.00-5.50); RED CELL DISTRIBUTION WIDTH 17.2 % (11.0-15.5); WHITE BLOOD COUNT (AUTO) 10.4 K/uL (4.8-10.8)
[2025-08-24 04:41] LABS: ASPARTATE AMINOTRANSFERASE 66.0 U/L (10-37); CREATININE 0.5 mg/dL (0.5-1.0); GLOMERULAR FILTR. RATE CALC 109.0 mL/min (>90); GLUCOSE,RANDOM 149.0 mg/dL (70-105); SODIUM SERUM 141.0 mmol/L (136-145); TOTAL PROTEIN, SERUM 5.2 g/dL (6.0-8.3); UREA NITROGEN, BLOOD 17.0 mg/dL (7-18)
[2025-08-24 04:52] LABS: INR 1.12 (0.85-1.15)
--- NOTE | 2025-08-24 08:00 | NUR ---
dr. winn at bedside , aware of pt status, pt continues on p level 7 on impella, as per dr. winn may titrate impella p level down as long as map keeps above 65 .
--- NOTE | 2025-08-24 08:16 | PN ---
[facility] CARDIOLOGY PROGRESS NOTE Date Patient Seen: Aug 24, 2025 Time of Visit: 08:14 Problem List: NSTEMI s/p 3V CABG (BRO-LAD, VG-D2, VG-OM) ICMP CARDIOGENIC SHOCK COCAINE USE Interval History: Seen in ICU Physical Examination: GENERAL: [well appearing, calm, no distress HEAD: [Normal with no signs of head trauma.] EYES: [PERRLA, EOMI, conjunctiva and sclera normal.] ENT: [Hearing grossly intact.] LUNGS: [Clear breath sounds bilaterally. No wheezes, or rhonchi.] HEART: [NSR. Normal S1 and S2 without murmurs, gallop or rub.] VASC: [Peripheral pulses +2 bilateral radial. R RF TEST ENGINEER impella in place. distal extremities are warm] ABD: [soft, nontender.] EXT: [No cyanosis or edema. Right RF TEST ENGINEER Impella CP and TVPM insertion site no ecchymoses or bleeding. SKIN: [No rashes or lesions noted. warm, dry NEURO: AOx3 moves all extremities. Laboratory: [ ] Hematology Labs: Test 08/24/25 04:00 Range/Units White Blood Count 10.4 4.8-10.8 K/uL Red Blood Count 2.80 L 4.00-5.50 MIL/uL Hemoglobin 8.4 L 12.0-16.0 g/dL Hematocrit 26.3 L 36-48 % Mean Corpuscular Volume 93.9 79-99 fL Mean Corpuscular Hemoglobin 30.0 27.0-33.0 pg Mean Corpuscular Hemoglobin Concent 31.9 L 32.0-36.0 g/dL Red Cell Distribution Width 17.2 H 11.0-15.5 % Platelet Count 90 L 130-400 K/uL Mean Platelet Volume 11.8 H 7.5-10.5 fL Immature Granulocyte % (Auto) 1.2 H 0-1 % Neutrophils (%) (Auto) 76.4 40.0-77.0 % Lymphocytes (%) (Auto) 14.2 L 21.0-51.0 % Monocytes (%) (Auto) 6.1 3.0-13.0 % Eosinophils (%) (Auto) 1.8 0.0-8.0 % Basophils (%) (Auto) 0.3 0.0-5.0 % Neutrophils # (Auto) 8.0 H 1.8-7.7 K/uL Lymphocytes # (Auto) 1.5 1.0-4.8 K/uL Monocytes # (Auto) 0.6 0.1-1.0 K/uL Eosinophils # (Auto) 0.19 0.00-0.70 K/uL Basophils # (Auto) 0.03 0.00-0.20 K/uL Absolute Immature Granulocyte (auto 0.12 0-1 K/uL Nucleated Red Blood Cells 1.4 H 0.0-0.19 % Chemistry Labs: Test 08/24/25 06:36 08/24/25 04:00 Range/Units Whole Blood Glucose 139 H 70-110 MG/DL Sodium Level 141 136-145 mmol/L Potassium Level 3.8 3.5-5.1 mmol/L Chloride Level 106 101-111 mmol/L Carbon Dioxide Level 27 21-32 mmol/L Blood Urea Nitrogen 17 7-18 mg/dL Creatinine 0.5 0.5-1.0 mg/dL Glomerular Filtration Rate Calc 109 >90 mL/min Random Glucose 149 H 70-105 mg/dL Total Calcium 8.2 L 8.5-10.1 mg/dL Ionized Calcium 1.10 L 1.15-1.33 MMOL/L Magnesium Level 1.80 1.80-2.40 mg/dL Total Bilirubin 0.7 0.2-1.0 mg/dL Aspartate Amino Transf (AST/SGOT) 66 H 10-37 U/L Alanine Aminotransferase (ALT/SGPT) 27 12-78 U/L Alkaline Phosphatase 178 H 50-136 U/L Total Protein 5.2 L 6.0-8.3 g/dL Albumin 2.1 L 3.5-5.0 g/dL Coagulation Labs: Test 08/24/25 04:00 Range/Units Prothrombin Time 11.7 H 9.6-11.6 SEC Prothromb Time International Ratio 1.12 0.85-1.15 Activated Partial Thromboplast Time 61.7 H 26.3-35.5 SEC Fibrinogen 574 *H 180-350 mg/dL Impression and Plan: 1. Non ST-elevation NC complicated by cardiogenic shock and complete heart block status post Impella placement in the R RF TEST ENGINEER and TVPM to R CFV 2. CAD with total occlusion of the right coronary artery unable to cross with a wire , of note the patient had a 30-40% RCA stenosis in April of this year matthew cramer possibility of spasm and or plaque rupture. LV ejection fraction of 50% with hypokinesis of the infero base by echo this admission. Previously known severe disease of pLAD and pLCx. s/p 3V CABG (BRO-LAD, VG-D2, VG-OM with RUPALI-ligation 40 mm Atricure clip 08/20) 3. VT post operatively, on amiodarone and lidocaine infusions 4. Cocaine abuse , tox screen positive for cocaine and benzodiazepines 5. Diabetes mellitus type 2 uncontrolled 6. Tobacco dependence 7. Remote CVA 2008 8. Noncompliance history, the patient has been seen in the hospital but has not followed up in the office. 9. Dyslipidemia 10. Urinary tract infection, E Coli (Ucx 08/14/25 11. Bacteremia one of two sets possibly contamination (Staph Cohnii) BCx 08/18/25, 2 of 2 ngtd 12. Thrombocytopenia ASA, statin. IV diuretics. Trial wean down on Impella support. CHANDRIKA ELAINE DO Aug 24, 2025 08:16
--- NOTE | 2025-08-24 11:03 | PN ---
[facility] PROGRESS NOTE Date Patient Seen: Aug 24, 2025 Time of Visit: 11:00 Supervising Physician: Dr Ata Foster Consulting Physician: Hospitalist Outpatient Specialists: [ ] Inpatient Consults: [ ] PROBLEM LIST: CABG x3 vessels 08/20 Cardiogenic shock SCAI stage D status post cardiac catheterization with multivessel disease, Impella placement Complete heart block, status post transvenous temporary pacemaker placement Acute hypoxic respiratory failure, NSTEMI, POA Bactermia + Staph Cohni urealyticum DM type 2, with hyperglycemia, HGB A1c of 10.7 Cocaine abuse Tobacco use, current smoker History of CVA INTERVAL HISTORY: Patient was seen and examined, patient reporting pain improved, nursing reports no acute events overnight Patient afebrile, converted to the oral amiodarone Continues on Lasix 40 mg q.12, we are following I&Os She remains in the Impella at P6, heparin drip No pressors Heart rate controlled Good renal output Plan: Follow CT surgeon recs Continues on Lasix, Follow I&Os Daily chest x-ray Antibiotics and following cultures, on vanc and ceftriaxone. Impella support Amiodarone for rate control Total critical care time spent 46 minutes, this excludes any procedures performed or any time spent in educational or teaching. REVIEW OF SYSTEMS: 12 point ROS reviewed with patient. Pertinent positives mentioned above. Otherwise negative. PHYSICAL EXAM: GENERAL: alert, weak, awake oriented x 3 HEENT: EOMI, Sclera non icteric, moist mucosa NECK: Supple, no JVD, trachea midline LUNGS: Clear breath sounds bilaterally. No wheezes HEART: TVP Normal S1 and S2, without murmurs ABD: Abdomen soft, nontender. Bowel sounds present EXT: No clubbing cyanosis or edema NEURO: Alert and oriented to person, follows commands Vital Signs (last 8hr) Date Time Temp Pulse Resp B/P (MAP) Pulse Ox O2 Delivery O2 Flow Rate FiO2 08/24/25 10:00 80 14 104/57 (73) 99 102/54 (70) 08/24/25 09:45 80 18 109/50 (69) 99 98/54 (69) 08/24/25 09:30 80 18 105/64 (78) 99 106/59 (75) 08/24/25 09:15 80 18 108/67 (81) 99 106/65 (79) 08/24/25 09:00 80 19 108/47 (67) 99 99/51 (67) 08/24/25 08:45 80 18 113/44 (67) 100 102/52 (69) 08/24/25 08:30 80 18 96/49 (65) 97 95/52 (66) 08/24/25 08:15 80 18 119/60 (79) 87 116/59 (78) 08/24/25 08:00 80 18 130/54 (79) 99 108/57 (74) 08/24/25 08:00 97.5 08/24/25 08:00 98 Nasal Cannula* 3 32 08/24/25 07:45 80 18 110/57 (74) 100 106/58 (74) 08/24/25 07:30 80 18 102/63 (76) 99 104/57 (73) 08/24/25 07:15 77 18 99/58 (72) 98 101/54 (70) 08/24/25 07:00 80 14 101/56 (71) 98 98/53 (68) 08/24/25 06:45 80 14 107/64 (78) 99 100/53 (69) 08/24/25 06:36 16 N/Cannula Low lpm 3.0 32 08/24/25 06:30 80 17 104/63 (77) 97 109/60 (76) 08/24/25 06:15 80 16 114/71 (85) 98 120/67 (84) 08/24/25 06:00 80 23 107/59 (75) 97 118/66 (83) 08/24/25 05:45 80 12 95/56 (69) 89 32 96/55 (69) 08/24/25 05:30 80 12 97/55 (69) 98 101/57 (72) 08/24/25 05:15 80 13 104/56 (72) 99 105/58 (74) 08/24/25 05:00 80 14 108/58 (75) 99 32 105/59 (74) 08/24/25 04:45 80 12 108/68 (81) 99 104/59 (74) 08/24/25 04:30 80 21 102/59 (73) 99 112/63 (79) 08/24/25 04:15 80 14 107/63 (78) 97 97/56 (70) 08/24/25 04:00 98 Nasal Cannula* 3 32 08/24/25 04:00 98.2 Nasal Cannula 3.0 32 08/24/25 04:00 98.2 80 18 97/54 (68) 94 32 103/58 (73) 08/24/25 03:45 80 13 104/55 (71) 97 104/57 (73) 08/24/25 03:30 80 14 102/57 (72) 97 101/56 (71) 08/24/25 03:15 80 16 102/60 (74) 98 104/59 (74) LABS: Hematology Labs: Test 08/24/25 04:00 Range/Units White Blood Count 10.4 4.8-10.8 K/uL Red Blood Count 2.80 L 4.00-5.50 MIL/uL Hemoglobin 8.4 L 12.0-16.0 g/dL Hematocrit 26.3 L 36-48 % Mean Corpuscular Volume 93.9 79-99 fL Mean Corpuscular Hemoglobin 30.0 27.0-33.0 pg Mean Corpuscular Hemoglobin Concent 31.9 L 32.0-36.0 g/dL Red Cell Distribution Width 17.2 H 11.0-15.5 % Platelet Count 90 L 130-400 K/uL Mean Platelet Volume 11.8 H 7.5-10.5 fL Immature Granulocyte % (Auto) 1.2 H 0-1 % Neutrophils (%) (Auto) 76.4 40.0-77.0 % Lymphocytes (%) (Auto) 14.2 L 21.0-51.0 % Monocytes (%) (Auto) 6.1 3.0-13.0 % Eosinophils (%) (Auto) 1.8 0.0-8.0 % Basophils (%) (Auto) 0.3 0.0-5.0 % Neutrophils # (Auto) 8.0 H 1.8-7.7 K/uL Lymphocytes # (Auto) 1.5 1.0-4.8 K/uL Monocytes # (Auto) 0.6 0.1-1.0 K/uL Eosinophils # (Auto) 0.19 0.00-0.70 K/uL Basophils # (Auto) 0.03 0.00-0.20 K/uL Absolute Immature Granulocyte (auto 0.12 0-1 K/uL Nucleated Red Blood Cells 1.4 H 0.0-0.19 % Chemistry Labs: Test 08/24/25 06:36 08/24/25 04:00 Range/Units Whole Blood Glucose 139 H 70-110 MG/DL Sodium Level 141 136-145 mmol/L Potassium Level 3.8 3.5-5.1 mmol/L Chloride Level 106 101-111 mmol/L Carbon Dioxide Level 27 21-32 mmol/L Blood Urea Nitrogen 17 7-18 mg/dL Creatinine 0.5 0.5-1.0 mg/dL Glomerular Filtration Rate Calc 109 >90 mL/min Random Glucose 149 H 70-105 mg/dL Total Calcium 8.2 L 8.5-10.1 mg/dL Ionized Calcium 1.10 L 1.15-1.33 MMOL/L Magnesium Level 1.80 1.80-2.40 mg/dL Total Bilirubin 0.7 0.2-1.0 mg/dL Aspartate Amino Transf (AST/SGOT) 66 H 10-37 U/L Alanine Aminotransferase (ALT/SGPT) 27 12-78 U/L Alkaline Phosphatase 178 H 50-136 U/L Total Protein 5.2 L 6.0-8.3 g/dL Albumin 2.1 L 3.5-5.0 g/dL Coagulation Labs: Test 08/24/25 04:00 Range/Units Prothrombin Time 11.7 H 9.6-11.6 SEC Prothromb Time International Ratio 1.12 0.85-1.15 Activated Partial Thromboplast Time 61.7 H 26.3-35.5 SEC Fibrinogen 574 *H 180-350 mg/dL DIAGNOSTICS / RADIOLOGY RESULTS: [ ] PLAN NEURO: Minimize central acting medications as possible. Maintain fall precautions, adequate lighting during the day PULMONARY: Supplemental 02 as needed. Maintain aspiration precautions at all times CARDIOVASCULAR: Follow hemodynamics. Vital signs per facility protocol GI & NUTRITION: Continue with nutritional support. Continue stool softeners and laxatives as needed. KIDNEYS & ELECTROLYTES: Strict monitoring of intake, output and overall fluid balance. Avoid nephrotoxic medications to the extent possible. Medications to be dosed according to renal function. Monitor electrolytes and replace as needed ENDOCRINE: Maintain blood glucose between 100-180 at all times. Hypoglycemia protocol in place INFECTIOUS DISEASE: Trend temperature, WBC and procalcitonin level Follow cultures, deescalate antibiotics as soon as possible. Panculture if new onset fever ONCOLOGY/HEMATOLOGY/COAGULATION: Monitor for s/s of bleeding Monitor hemoglobin, coagulation studies as needed SKIN: Pressure ulcer prevention per facility protocol Specialty mattress ORTHO/REHAB: Continue PT/OT Prophylaxis: Continue GI and DVT prophylaxis Code Status: Full Resuscitation Disposition: CHIRAG NGUYỄN PAC Aug 24, 2025 11:02
--- NOTE | 2025-08-24 11:30 | NUR ---
IMPELLA IN PLACE. Addendum: 08/24/25 at 1300 by WAQAS COATES PT Amended: Links added.
--- NOTE | 2025-08-24 12:32 | PN ---
[facility] PROGRESS NOTE Date of Service: Aug 24, 2025 Time of Service: 12:30 SUBJECTIVE: This is a 60-year-old female with underlying history of obesity, coronary artery disease, poorly controlled type 2 diabetes mellitus, history of anemia, history of cocaine use, tobacco use disorder, history of CVA in 2008, who presented to the ER for further evaluation of severe substernal chest pain and shortness of breadth. Patient reports having history of cocaine use with last use of cocaine yesterday. She reports having severe substernal chest pain that started today in it has been associated with dizziness, and generalized malaise. Pain is 10/1 0 in severity. Patient denies any syncope or fall. She has been having lightheadedness with ambulation. She has not been able to follow up with Cardiology as outpatient. She has a previous history of abnormal CT coronary angiography when she was hospitalized in 04/2025 and she was treated medically. With regards to type 2 diabetes mellitus, she reports being on metformin as ou tpatient. On presentation to the hospital, patient was noted to be hypotensive with blood pressure of 80/60 with heart rate of 40 with EKG showing complete heart block. [place] [address], hemoglobin 12.4, platelet count of 938773. BMP showed sodium of 133, potassium 4.8, chloride of 99, BUN of 21, creatinine 1.0, blood glucose of 403, [place] [address]. Chest x-ray showed no acute infiltrates. Patient will be admitted for further management of cardiogenic shock, NSTEMI, complete heart block with history of poorly controlled type 2 diabetes mellitus. Patient will be emergently taken to [facility] for cardiac catheterization/ PCI and tentative plan for MCS support. Patient will be admitted to intensive care unit and she remains critically ill. 08/14 patient remains critically ill requiring Impella and dopamine support. UDS has demonstrated benzos and cocaine 08/15 patient remains on Impella 08/16 patient appears to be resting comfortably in bed. She remains on Impella and dopamine support. She reports she would like to be bathed and wants her hair combed significant and she is feeling better 08/17 patient is on GI soft diet tolerating well. She remains on Impella support 08/18 patient is resting comfortably in bed. She remains on Impella. Tolerating oral intake. 08/19 hemoglobin dropped to 6.5 from 7.0-7.5 yesterday. I agree with transfusing 1 unit PRBC. Patient remains on Impella. Patient is resting comfortably in bed. 08/20 patient is resting comfortably in bed. She remains on Impella support pending recovery for CABG. 08/21 patient underwent CABG x3 yesterday, no complications reported patient remains on Impella the patient is on norepinephrine, amiodarone, dopamine, insulin drip 08/22 postop day 2. From CABG x3. Patient does awaken to verbal stimulation and states she has some chest pain and slight shortness for breath she feels the pain as incisional from her open heart procedure. He is on p.o. amiodarone and being weaned off norepinephrine. 08/23 postop day 3 from CABG x3. Patient is in bed visiting with her son at the bedside. She states she has no shortness for breath, she does have some incisional chest discomfort, no nausea or vomiting or diarrhea. She is off nor epinephrine drip and remains with the Impella assist. 08/24 patient is seen and examined at bedside, discussed with the RN, no acute events overnight, remains with the Impella support, postoperative day four from CABG x3. She is awake, following commands. Off vasopressors. Remains on heparin drip and sodium bicarbonate drip. Continue to follow critical Care and Cardiothoracic input and recommendation. REVIEW OF SYSTEMS CONSTITUTIONAL: generalized fatigue, malaise NEUROLOGICAL: Denies headache, amaurosis fugax, motor weakness, sensory deficit, vertigo/spinning sensation, gait abnormalities, or tremors. ENT: No hearing loss, otalgia, otorrhea, rhinitis, rhinorrhea, hoarseness, or sore throat. CARDIOVASCULAR: Mild incisional chest pain, no shortness breath PULMONARY: Denies any shortness of breath, cough, phlegm/sputum, hemoptysis, pleuritic chest pain. SLEEP: Denies morning headaches, daytime somnolence or napping. Denies difficulty falling asleep, staying asleep, waking from sleep. Denies knowledge of snoring. GASTROINTESTINAL: No nausea, Denies any type of dysphagia to either liquids or solids. Denies vomiting, pyrosis, early satiety, abdominal pain, diarrhea, constipation, or changes in stool consistency or caliber. Denies coffee-ground emesis, hematemesis, hematochezia, or melanotic stools. GENITOURINARY: Denies frequency, urgency, nocturia, hematuria or incontinence (Storage/Irritative symptoms.) Low urinary stream, straining to void, urinary intermittency or hesitancy, splitting of the voiding stream, terminal dribbling. ENDOCRINOLOGIC: Denies polyuria, polydipsia, polyphagia or heat/cold intolerances. HEMATOLOGIC: Denies thrombophilia/previous clots, or coagulopathy/bleeding disorders. ONCOLOGIC: Denies personal history of malignancy. DERMATOLOGIC: Denies rashes or pruritus. PSYCHIATRIC: Denies any suicidal or homicidal ideation. Denies hallucinations. PHYSICAL EXAM GENERAL APPEARANCE: The patient is awake, appears ill and in no distress NEUROLOGICAL: Cranial nerves II-XII grossly intact. Motor is 5/5 in bilateral upper and lower extremities proximal to distal. No sensory deficits. HEENT: Face is symmetric. Pupils are equal and reactive. Extraocular movements are intact. NECK: Supple. No JVD. No thyromegaly. No submental, submandibular, pre- /postauricular, occipital or supraclavicular lymphadenopathy. CHEST: Normal chest expansion. No Telemetry. LUNGS: minimal crackles noted of the bilateral lung bases CARDIOVASCULAR: Regular. S1 and S2 normal. No appreciable rubs, murmurs or gallops. ABDOMEN: Soft, nontender, and nondistended. There is no rebound, voluntary guarding, or rigidity. : Deferred. No Coombs. EXTREMITIES: trace edema noted of the bilateral lower extremities SKIN: No skin breakdown. Vital Signs (last 8hr) Date Time Temp Pulse Resp B/P (MAP) Pulse Ox O2 Delivery O2 Flow Rate FiO2 08/24/25 11:08 16 N/Cannula Low lpm 3.0 32 08/24/25 10:00 80 14 104/57 (73) 99 102/54 (70) 08/24/25 09:45 80 18 109/50 (69) 99 98/54 (69) 08/24/25 09:30 80 18 105/64 (78) 99 106/59 (75) 08/24/25 09:15 80 18 108/67 (81) 99 106/65 (79) 08/24/25 09:00 80 19 108/47 (67) 99 99/51 (67) 08/24/25 08:45 80 18 113/44 (67) 100 102/52 (69) 08/24/25 08:30 80 18 96/49 (65) 97 95/52 (66) 08/24/25 08:15 80 18 119/60 (79) 87 116/59 (78) 08/24/25 08:00 80 18 130/54 (79) 99 108/57 (74) 08/24/25 08:00 97.5 08/24/25 08:00 98 Nasal Cannula* 3 32 08/24/25 07:45 80 18 110/57 (74) 100 106/58 (74) 08/24/25 07:30 80 18 102/63 (76) 99 104/57 (73) 08/24/25 07:15 77 18 99/58 (72) 98 101/54 (70) 08/24/25 07:00 80 14 101/56 (71) 98 98/53 (68) 08/24/25 06:45 80 14 107/64 (78) 99 100/53 (69) 08/24/25 06:36 16 N/Cannula Low lpm 3.0 32 08/24/25 06:30 80 17 104/63 (77) 97 109/60 (76) 08/24/25 06:15 80 16 114/71 (85) 98 120/67 (84) 08/24/25 06:00 80 23 107/59 (75) 97 118/66 (83) 08/24/25 05:45 80 12 95/56 (69) 89 32 96/55 (69) 08/24/25 05:30 80 12 97/55 (69) 98 101/57 (72) 08/24/25 05:15 80 13 104/56 (72) 99 105/58 (74) 08/24/25 05:00 80 14 108/58 (75) 99 32 105/59 (74) 08/24/25 04:45 80 12 108/68 (81) 99 104/59 (74) LABS: Laboratory: Test 08/24/25 11:17 08/24/25 04:00 08/24/25 03:30 08/22/25 16:50 Range/Units Whole Blood Glucose 176 H 70-110 MG/DL White Blood Count 10.4 4.8-10.8 K/uL Red Blood Count 2.80 L 4.00-5.50 MIL/uL Hemoglobin 8.4 L 12.0-16.0 g/dL Hematocrit 26.3 L 36-48 % Mean Corpuscular Volume 93.9 79-99 fL Mean Corpuscular Hemoglobin 30.0 27.0-33.0 pg Mean Corpuscular Hemoglobin Concent 31.9 L 32.0-36.0 g/dL Red Cell Distribution Width 17.2 H 11.0-15.5 % Platelet Count 90 L 130-400 K/uL Mean Platelet Volume 11.8 H 7.5-10.5 fL Immature Granulocyte % (Auto) 1.2 H 0-1 % Neutrophils (%) (Auto) 76.4 40.0-77.0 % Lymphocytes (%) (Auto) 14.2 L 21.0-51.0 % Monocytes (%) (Auto) 6.1 3.0-13.0 % Eosinophils (%) (Auto) 1.8 0.0-8.0 % Basophils (%) (Auto) 0.3 0.0-5.0 % Neutrophils # (Auto) 8.0 H 1.8-7.7 K/uL Lymphocytes # (Auto) 1.5 1.0-4.8 K/uL Monocytes # (Auto) 0.6 0.1-1.0 K/uL Eosinophils # (Auto) 0.19 0.00-0.70 K/uL Basophils # (Auto) 0.03 0.00-0.20 K/uL Absolute Immature Granulocyte (auto 0.12 0-1 K/uL Nucleated Red Blood Cells 1.4 H 0.0-0.19 % Prothrombin Time 11.7 H 9.6-11.6 SEC Prothromb Time International Ratio 1.12 0.85-1.15 Activated Partial Thromboplast Time 61.7 H 26.3-35.5 SEC Fibrinogen 574 *H 180-350 mg/dL Sodium Level 141 136-145 mmol/L Potassium Level 3.8 3.5-5.1 mmol/L Chloride Level 106 101-111 mmol/L Carbon Dioxide Level 27 21-32 mmol/L Blood Urea Nitrogen 17 7-18 mg/dL Creatinine 0.5 0.5-1.0 mg/dL Glomerular Filtration Rate Calc 109 >90 mL/min Random Glucose 149 H 70-105 mg/dL Total Calcium 8.2 L 8.5-10.1 mg/dL Ionized Calcium 1.10 L 1.15-1.33 MMOL/L Magnesium Level 1.80 1.80-2.40 mg/dL Total Bilirubin 0.7 0.2-1.0 mg/dL Aspartate Amino Transf (AST/SGOT) 66 H 10-37 U/L Alanine Aminotransferase (ALT/SGPT) 27 12-78 U/L Alkaline Phosphatase 178 H 50-136 U/L Total Protein 5.2 L 6.0-8.3 g/dL Albumin 2.1 L 3.5-5.0 g/dL Blood Gas Specimen Type Arterial Arterial Blood pH 7.480 H 7.350-7.450 Arterial Blood Partial Pressure CO2 36 32-45 mmHg Arterial Blood Partial Pressure O2 96.4 83.0-108.0 mmHg Arterial Blood HCO3 26.1 21.0-28.0 mmol/L Arterial Blood Oxygen Saturation 96.6 94.0-98.0 % Arterial Blood Base Excess 2.6 -2.0-3.0 mmol/L Hemoglobin (Blood Gas) 9.3 L 12.0-16.0 g/dL Sodium (Blood Gas) 136 136-145 MMOL/L Bedside Potassium (Blood Gas) 3.6 3.4-4.5 MMOL/L Bedside Chloride (Blood Gas) 105 98-107 MMOL/L Bedside Glucose (Blood Gas) 146 H 65-95 MG/DL Bedside Ionized Calcium (Blood Gas) 1.14 L 1.15-1.33 MMOL/L Bedside Lactic Acid (Blood Gas) 0.88 H 0.36-0.75 MMOL/L Blood Gas Temperature 37.0 35.5-37.0 CELSIUS Blood Gas Flow-by 5.00 0.00-15.00 L/min Blood Gas Vent Mode 5LNC ROOM AIR FiO2 40.0 % Blood Gas Specimen Comment [facility] Vancomycin Level Trough 16.7 # 10.0-20.0 UG/ML Current Medications Medications (Trade) Dose Ordered Sig/Elmer Route PRN Reason Start Time Stop Time Status Last Admin Dose Admin Acetaminophen (TYLenol 325MG TAB) 650 mg Q4H PRN PO Temp >38.3C(AFTER EXTUBATION) 08/20/25 17:00 09/19/25 16:59 Acetaminophen (TYLenol 325MG TAB) 650 mg Q6H PRN PO MILD PAIN (1-3) 08/13/25 16:30 09/12/25 16:29 08/23/25 11:01 650 MG Acetaminophen (TYLenol 500MG TAB) 500 mg Q6H PRN PO TEMP < 101.1 AND/OR HEADACHE 08/14/25 14:30 09/13/25 14:29 08/20/25 08:23 500 MG Acetaminophen (TYLenol 650MG SUPPOSITORY) 650 mg Q4H PRN RC Temp >38.3C WHILE INTUBATED 08/20/25 17:00 09/19/25 16:59 Acetaminophen (acetaMINOPHEN 1,000MG/100ML) 1,000 mg Q6H6 IVPB 08/21/25 12:00 09/20/25 11:59 08/24/25 11:57 1,000 MG Albumin Human 50 ml @ 0 mls/hr BID IV 08/18/25 09:00 08/23/25 08:59 DC 08/22/25 20:56 100 MLS/HR Albumin Human 250 ml @ 0 mls/hr AD PRN IV IF HEMODYNAMICALLY UNSTABLE 08/20/25 17:00 08/20/25 22:46 DC 08/20/25 22:46 0 MLS/HR Aminocaproic Acid 17644 mg/Sodium Chloride 310 ml @ 25 mls/hr AD IV 08/20/25 17:00 08/21/25 05:23 DC Aminocaproic Acid 84555 mg/Sodium Chloride 480 ml @ 0 mls/hr AD PRN IV BLEEDING CONTROL 08/20/25 08:00 09/19/25 07:59 Aminocaproic Acid 48163 mg/Sodium Chloride 480 ml @ 0 mls/hr AD PRN IV BLEEDING CONTROL 08/20/25 09:00 08/20/25 09:03 DC Amiodarone HCl (pacERONE 200MG) 200 mg BID PO 08/22/25 09:00 08/29/25 21:00 08/24/25 09:33 200 MG Amiodarone HCl 360 mg/Dextrose 207.2 ml @ 33.3 mls/hr AD IV 08/20/25 21:00 08/20/25 21:05 DC Amiodarone HCl 540 mg/Dextrose 310.8 ml @ 16.7 mls/hr [id number] IV 08/21/25 03:00 09/20/25 02:59 08/21/25 20:12 16.7 MLS/HR Amiodarone HCL/ Dextrose 207.2 ml @ 33.3 mls/hr AD IV 08/20/25 21:30 08/21/25 10:49 DC 08/20/25 21:24 33.3 MLS/HR Aspirin (Aspirin 81mg Chew Tab) 81 mg DAILY PO 08/14/25 09:00 09/13/25 08:59 08/24/25 09:33 81 MG Atorvastatin Calcium (LIPItor 40MG) 40 mg HS PO 08/13/25 21:00 09/12/25 20:59 08/23/25 21:18 40 MG Bisacodyl (DulcoLAX) 10 mg DAILY RC 08/17/25 09:00 08/20/25 08:59 DC 08/18/25 07:58 10 MG Calcium Carbonate (Tums 500 Mg Chew Tab) 500 tab QID PRN PO HEARTBURN 08/19/25 12:00 08/20/25 16:32 DC 08/20/25 05:10 1 TAB Calcium Gluconate 1 gm/Sodium Chloride 60 ml @ 200 mls/hr AD PRN IV HYPOCALCEMIA 08/20/25 17:00 09/19/25 16:59 08/24/25 05:01 200 MLS/HR Cefazolin Sodium (Ancef) 2 gm ONCALL IVP 08/19/25 19:30 08/21/25 08:36 DC 08/20/25 16:30 2 GM Cefazolin Sodium (Ancef) 2 gm Q8H IVPB 08/20/25 22:00 08/21/25 14:01 DC 08/21/25 13:45 2 GM Ceftriaxone Sodium (Rocephin 2gm Inj) 2 gm Q24H IVPB 08/14/25 11:30 08/24/25 11:29 DC 08/23/25 12:16 2 GM Chlordiazepoxide HCl (LIBrium 25 MG CAP) 25 mg Q2H PRN PO ALCOHOL WITHDRAWAL PROTOCOL 08/14/25 14:30 08/20/25 16:32 DC 08/16/25 23:38 25 MG Chlordiazepoxide HCl (LIBrium 25 MG CAP) 50 mg Q1H PRN PO ALCOHOL WITHDRAWAL PROTOCOL 08/14/25 14:30 08/20/25 16:32 DC Dexmedetomidine/ Sodium Chloride (PRECEdex 400MCG/ 100ML-NS) 400 mcg PROTOCOL IV 08/20/25 20:30 09/19/25 20:29 08/22/25 00:35 400 MCG Dextrose (D50w) 50 ml AD PRN IV HYPOGLYCEMIA PROTOCOL 08/20/25 17:00 09/19/25 16:59 Dextrose (D50w) 50 ml AD PRN IV HYPOGLYCEMIA PROTOCOL 08/13/25 20:00 08/20/25 22:03 DC Diphenhydramine HCl (BENAdryl INJ) 25 mg ONCE PRN IV ITCHING 08/15/25 23:00 08/17/25 22:59 DC Docusate Sodium (COLace 100MG CAP) 100 mg BID PRN PO CONSTIPATION 08/14/25 11:00 09/13/25 10:59 Dopamine HCl/ Dextrose 250 ml @ 0 mls/hr PROTOCOL IV 08/13/25 16:00 09/12/25 15:59 08/16/25 16:41 3 MLS/HR Epinephrine HCl 10 mg/Sodium Chloride 250 ml @ 14.091 mls/ hr AD PRN IV POST-OP CARDIOVASCULAR ORDERS 08/20/25 17:00 08/21/25 10:49 DC Epinephrine HCl 10 mg/Sodium Chloride 250 ml @ 0 mls/hr AD PRN IV TITRATE 08/20/25 08:00 09/19/25 07:59 08/22/25 04:22 6.8 MLS/HR Epinephrine HCl 10 mg/Sodium Chloride 250 ml @ 0 mls/hr AD PRN IV TITRATE 08/20/25 09:00 08/20/25 09:03 DC Famotidine (Pepcid 20mg Vial) 20 mg BID IV 08/20/25 21:00 08/22/25 08:20 DC 08/21/25 20:17 20 MG Famotidine (Pepcid 20mg Tab) 20 mg BID PO 08/22/25 09:00 09/21/25 08:59 08/24/25 09:33 20 MG Folic Acid (FOLic ACID 1 MG TABLET) 1 mg DAILY PO 08/15/25 09:00 08/17/25 09:01 DC 08/17/25 07:46 1 MG Furosemide (LASix 20MG VIAL) 20 mg Q12H IV 08/21/25 11:30 08/22/25 14:17 DC 08/22/25 11:53 20 MG Furosemide (LASix 20MG VIAL) 20 mg Q12H IV 08/22/25 21:00 08/23/25 11:37 DC 08/23/25 09:50 20 MG Furosemide (LASix 20MG VIAL) 40 mg Q12H IV 08/22/25 21:00 08/22/25 14:32 DC Furosemide (LASix 40MG VIAL) 40 mg Q12H IV 08/23/25 11:30 09/22/25 11:29 08/24/25 11:56 40 MG Gabapentin (NEURontin 300 MG CAP) 300 mg TID PO 08/23/25 14:00 09/22/25 13:59 08/24/25 09:33 300 MG Glucagon (Glucagon 1mg Kit) 1 mg AD PRN IM HYPOGLYCEMIA PROTOCOL 08/20/25 17:00 09/19/25 16:59 Glucagon (Glucagon 1mg Kit) 1 mg AD PRN IM HYPOGLYCEMIA PROTOCOL 08/13/25 20:00 08/21/25 10:49 DC Heparin Sodium (Porcine) (HEParin 5,000 UNIT VIAL) *calculation based on ACTUAL B... AD PRN IV HEPARIN PROTOCOL 08/13/25 16:30 08/20/25 16:32 DC 08/17/25 04:46 3,175 UNIT Heparin Sodium/ Dextrose 250 ml @ 0 mls/hr PROTOCOL IV 08/21/25 11:30 09/20/25 11:29 08/23/25 14:36 6.57 MLS/HR Heparin Sodium/ Dextrose 250 ml @ 0 mls/hr Q6H IV 08/13/25 16:30 08/20/25 16:32 DC 08/19/25 22:03 11.78 MLS/HR Insulin Glargine (LANtus 100 UNITS/ML 10 ML VIAL) 5 units BID@0730,2100 SQ 08/16/25 21:00 08/17/25 09:31 DC 08/16/25 21:21 5 UNITS Insulin Glargine (LANtus 100 UNITS/ML 10 ML VIAL) 10 units HS SQ 08/13/25 21:00 08/14/25 06:16 DC 08/13/25 20:21 10 UNITS Insulin Glargine (LANtus 100 UNITS/ML 10 ML VIAL) 15 units DAILY SQ 08/23/25 09:00 09/22/25 08:59 08/24/25 09:34 15 UNITS Insulin Glargine (LANtus 100 UNITS/ML 10 ML VIAL) 20 units DAILY SQ 08/14/25 09:00 08/15/25 07:24 DC 08/14/25 08:01 20 UNITS Insulin Glargine (LANtus 100 UNITS/ML 10 ML VIAL) 30 units DAILY SQ 08/15/25 09:00 08/16/25 07:19 DC 08/15/25 08:28 30 UNITS Insulin Glargine (LANtus 100 UNITS/ML 10 ML VIAL) 35 units DAILY SQ 08/16/25 09:00 08/19/25 07:35 DC 08/18/25 07:59 35 UNITS Insulin Glargine (LANtus 100 UNITS/ML 10 ML VIAL) 42 units DAILY 08/19/25 09:00 08/20/25 06:22 DC 08/19/25 09:40 42 UNITS Insulin Glargine (LANtus 100 UNITS/ML 10 ML VIAL) 45 units DAILY SQ 08/20/25 09:00 08/20/25 16:32 DC Insulin Human Lispro (HumaLOG LISpro 100 UNIT/ML 3ML) INSULIN SLIDING SCAL... ACHS 08/16/25 21:00 08/17/25 09:31 DC Insulin Human Regular (humuLIN R 100 UNIT/ML 3ML) 5 unit TIDAC SQ 08/14/25 17:00 08/15/25 07:24 DC 08/15/25 07:03 5 UNIT Insulin Human Regular (humuLIN R 100 UNIT/ML 3ML) 8 unit TIDAC SQ 08/15/25 07:30 08/15/25 22:46 DC 08/15/25 16:02 8 UNIT Insulin Human Regular (humuLIN R 100 UNIT/ML 3ML) 10 unit TIDAC SQ 08/16/25 07:30 08/17/25 21:12 DC 08/17/25 16:09 10 UNIT Insulin Human Regular (humuLIN R 100 UNIT/ML 3ML) 12 unit TIDAC SQ 08/18/25 07:30 08/18/25 20:19 DC 08/18/25 16:39 12 UNIT Insulin Human Regular (humuLIN R 100 UNIT/ML 3ML) 16 unit TIDAC SQ 08/19/25 07:30 08/20/25 06:22 DC 08/19/25 16:47 16 UNIT Insulin Human Regular (humuLIN R 100 UNIT/ML 3ML) 17 unit TIDAC SQ 08/20/25 07:30 08/20/25 16:32 DC Insulin Human Regular (humuLIN R 100 UNIT/ML 3ML) INSULIN SLIDING SCAL... ACHS SQ 08/17/25 16:30 08/20/25 16:32 DC 08/19/25 21:31 8 UNIT Insulin Human Regular (humuLIN R 100 UNIT/ML 3ML) INSULIN SLIDING SCAL... ACHS SQ 08/22/25 11:30 08/22/25 21:32 DC 08/22/25 20:58 3 UNIT Insulin Human Regular (humuLIN R 100 UNIT/ML 3ML) INSULIN SLIDING SCAL... ACHS SQ 08/23/25 07:30 09/22/25 07:29 08/24/25 11:56 2 UNIT Insulin Human Regular (humuLIN R 100 UNIT/ML 3ML) INSULIN SLIDING SCAL... ACHS SQ 08/13/25 16:30 08/16/25 20:46 DC 08/16/25 20:01 4 UNIT Insulin Human Regular 100 unit/ Sodium Chloride 100 ml @ 0 mls/hr AD IV 08/20/25 17:00 08/22/25 16:59 DC 08/21/25 15:00 5 MLS/HR Iron Sucrose (VenoFER) 200 mg DAILY IV 08/21/25 13:00 08/23/25 09:43 DC 08/22/25 11:53 200 MG Iron Sucrose (VenoFER) 200 mg DAILY IV 08/23/25 09:00 09/22/25 08:59 08/24/25 09:32 200 MG Lidocaine (Lidocaine Patch 4%) 1 each DAILY TP 08/19/25 09:00 09/18/25 08:59 08/24/25 09:32 1 EACH Lidocaine HCl/ Dextrose 250 ml @ 0 mls/hr PROTOCOL IV 08/21/25 00:00 09/20/25 00:00 Magnesium Sulfate 50 ml @ 12.5 mls/hr AD PRN IV MAG LEVEL LESS THAN 2.0 08/20/25 17:00 09/19/25 16:59 08/24/25 05:02 12.5 MLS/HR Magnesium Sulfate 50 ml @ 0 mls/hr PROTOCOL IV 08/13/25 16:30 08/21/25 10:49 DC 08/21/25 05:58 25 MLS/HR Morphine Sulfate (morPHINE 2MG SYG) 0.5 mg Q2H PRN IV MODERATE PAIN (4-6) 08/20/25 17:00 08/20/25 18:07 DC Morphine Sulfate (morPHINE 2MG SYG) 2 mg Q6H PRN IVP SEVERE PAIN (7-10) 08/19/25 18:00 08/20/25 16:32 DC 08/19/25 17:50 2 MG Morphine Sulfate (morPHINE 4MG SYG) 0.5 mg Q2H PRN IV MODERATE PAIN (4-6) 08/20/25 18:30 08/21/25 16:59 DC Morphine Sulfate (morPHINE 4MG SYG) 1 mg Q2H PRN IV SEVERE PAIN (7-10) 08/20/25 17:00 08/21/25 16:59 DC Morphine Sulfate (morPHINE 4MG SYG) 2 mg Q6H PRN IVP SEVERE PAIN (7-10) 08/14/25 09:30 08/19/25 12:29 DC 08/19/25 12:22 2 MG Multivitamins Therapeutic (Multivitamin Tablet) 1 tab DAILY PO 08/15/25 09:00 09/14/25 08:59 08/24/25 09:32 1 TAB Nitroglycerin/ Dextrose 0 ml @ 0 mls/hr AD IV 08/20/25 17:00 08/23/25 16:59 DC Nitroglycerin/ Dextrose 250 ml @ 0 mls/hr PROTOCOL IV 08/20/25 03:30 08/20/25 16:32 DC 08/20/25 03:12 1.5 MLS/HR Norepinephrine 250 ml @ 0 mls/hr PROTOCOL IV 08/13/25 15:30 08/20/25 08:31 DC Norepinephrine Bitartrate 250 ml @ 0 mls/hr AD PRN IV TITRATE 08/20/25 08:00 09/19/25 07:59 08/21/25 06:40 9.4 MLS/HR Norepinephrine Bitartrate 250 ml @ 0 mls/hr AD PRN IV TITRATE 08/20/25 09:00 08/20/25 09:03 DC Norepinephrine Bitartrate 8 mg/ Dextrose 250 ml @ 0 mls/hr AD PRN IV POST-OP CARDIOVASCULAR ORDERS 08/20/25 17:00 08/21/25 10:49 DC Ondansetron HCl (zoFRAN 4MG INJ) 4 mg Q4H PRN IV NAUSEA 08/14/25 14:30 08/20/25 16:32 DC 08/14/25 14:17 4 MG Ondansetron HCl (zoFRAN 4MG INJ) 4 mg Q6H PRN IV NAUSEA/VOMITING 08/20/25 17:00 09/19/25 16:59 Ondansetron HCl (zoFRAN 4MG INJ) 4 mg Q6H PRN IVP NAUSEA/VOMITING 08/13/25 16:30 08/14/25 14:08 DC Pantoprazole Sodium (PROTonix 40MG INJ) 40 mg Q12H IVP 08/17/25 16:30 08/20/25 16:32 DC 08/20/25 03:53 40 MG Pantoprazole Sodium (PROTonix 40MG INJ) 40 mg Q24H IVP 08/13/25 16:30 08/17/25 11:10 DC 08/16/25 16:07 40 MG Pharmacy Profile Note (Pharmacy Communication) 1 each PROTOCOL PRN MISC ETOH Withdrawal Score changes 08/14/25 14:30 08/14/25 14:08 DC Polyethylene Glycol (MIRalax 3350 17 GM POWD.PACK) 17 gm DAILY PO 08/15/25 09:00 09/14/25 08:59 08/24/25 09:35 17 GM Potassium Phosphate 250 ml @ 42 mls/hr AD PRN IV LOW PHOS LEVEL 08/20/25 17:00 09/19/25 16:59 Potassium Chloride 100 ml @ 100 mls/hr AD PRN IV HYPOKALEMIA 08/20/25 17:00 09/19/25 16:59 08/24/25 05:02 100 MLS/HR Potassium Chloride 100 ml @ 100 mls/hr AD PRN IV POTASSIUM PROTOCOL 08/13/25 16:30 08/20/25 16:32 DC 08/16/25 16:07 100 MLS/HR Potassium Chloride (K-Dur/Klor-Con 20meq) 20 meq AD PRN PO POTASSIUM PROTOCOL 08/13/25 16:30 08/20/25 16:32 DC 08/15/25 08:23 20 MEQ Potassium Chloride (KCl 10% Elixir 20meq/15ml) 20 meq AD PRN PO POTASSIUM PROTOCOL 08/13/25 16:30 08/20/25 16:32 DC Promethazine HCl (Phenergan) 25 mg Q6H PRN PO NAUSEA 08/14/25 14:30 08/20/25 16:32 DC Propofol 100 ml @ 0 mls/hr AD PRN IV SEDATION 08/20/25 17:00 08/24/25 16:59 Sodium Bicarbonate 25 meq/Dextrose 1,000 ml @ 0 mls/hr Q0M IV 08/14/25 00:30 09/13/25 00:29 08/20/25 23:15 50 MLS/HR Sodium Bicarbonate 25 meq/Dextrose 1,000 ml @ 0 mls/hr Q0M IVP 08/14/25 00:30 08/14/25 00:15 DC Sodium Bicarbonate (Sodium Bicarb 50meq 50ml Vial) 50 meq AD PRN IV OTHER[SEE DOSING INSTRUCTIONS] 08/20/25 17:00 08/23/25 16:59 DC 08/21/25 01:19 50 MEQ Sodium Chloride 500 ml @ 500 mls/hr Q1H IV 08/20/25 00:33 08/20/25 03:16 DC 08/20/25 00:53 500 MLS/HR Sodium Chloride 500 ml @ 0 mls/hr AD IV 08/20/25 17:00 09/19/25 16:59 Sodium Chloride 1,000 ml @ 10 mls/hr ONCE IV 08/20/25 17:00 08/21/25 16:59 DC 08/20/25 22:31 10 MLS/HR Sodium Chloride (NS Flush 10ml) 10 ml Q8H PRN IVP IV LINE FLUSH 08/20/25 17:00 09/19/25 16:59 Thiamine HCl (Vitamin B-1) 300 mg DAILY IV 08/15/25 09:00 08/17/25 09:01 DC 08/17/25 07:46 300 MG Ticagrelor (BRILinta) 90 mg BID PO 08/14/25 09:00 08/14/25 21:19 DC 08/14/25 20:09 90 MG Tramadol HCl (UltRAM) 25 mg Q6H PRN PO MODERATE PAIN (4-6) 08/20/25 17:00 08/25/25 16:59 Tramadol HCl (UltRAM) 50 mg Q6H PRN PO SEVERE PAIN (7-10) 08/20/25 17:00 08/25/25 16:59 08/23/25 21:18 50 MG Vancomycin HCl 250 ml @ 125 mls/hr Q12H IV 08/18/25 09:00 08/19/25 20:54 DC 08/19/25 09:39 125 MLS/HR Vancomycin HCl 250 ml @ 125 mls/hr Q8H IV 08/19/25 21:30 08/21/25 00:23 DC 08/20/25 22:26 125 MLS/HR Vancomycin HCl 250 ml @ 125 mls/hr Q8H IV 08/21/25 06:30 08/21/25 08:35 DC 08/21/25 08:15 125 MLS/HR Vancomycin HCl 250 ml @ 125 mls/hr Q8H IV 08/21/25 08:00 08/21/25 06:28 DC Vancomycin HCl 250 ml @ 125 mls/hr Q8H IV 08/21/25 16:30 08/31/25 16:29 08/24/25 09:32 125 MLS/HR Vancomycin HCl (Vancomycin Protocol) 1 each AD IV 08/17/25 22:00 08/31/25 21:59 DIAGNOSTICS / RADIOLOGY: [ ] ASSESSMENT: Cardiogenic shock with lactic acidosis, POA NSTEMI/ACS, POA Complete heart block, POA History of multivessel coronary artery disease, POA History of cocaine use disorder, POA Severe nonketotic hyperglycemia, POA History of to poorly controlled type 2 diabetes mellitus, POA Lactic acidosis, POA History of anemia, POA History of gastritis, POA History of hypertension, POA History of PTSD/anxiety, POA Obesity, POA Medical noncompliance, POA PLAN: Continue ceftriaxone and cefazolin (surgical prophylaxis) Trend WBCs Follow-up blood cultures O2 nasal cannula as needed Follow up with Critical care, appreciate assistance Continue aspirin, atorvastatin, Brilinta Monitor blood pressure Follow up with CT surgery Follow up with Cardiology, appreciate the assistance of both Cardiology and CT surgery Continue norepinephrine, wean as tolerated Continue dopamine and amiodarone Continue Impella support Continue GI soft diet Continue GI prophylaxis with famotidine No need for IV fluids Trend a.m. BMP Replete electrolytes as necessary Continue heparin drip DVT prophylaxis as above Trend a.m. CBC Follow up With endocrinology Full code Case was discussed with patient's nurse at bedside Critical care Attention time greater than 30 minutes GEE MARTIN MD Aug 24, 2025 12:32
--- NOTE | 2025-08-24 13:36 | PN ---
This is a 60-year-old female with underlying history of obesity, coronary artery disease, poorly controlled type 2 diabetes mellitus, history of anemia, history of cocaine use, tobacco use disorder, history of CVA in 2008, who presented to the ER with severe substernal chest pain and shortness of breath. She is admitted for further evaluation and management of NSTEMI , Cardiogenic shock. She underwent left heart catheterization and was placed on Impella on 08.13.25. We are consulted for thrombocytopenia .Her platelets were 2,09,000 at the time of admission and today its 1,17,000 .Peripheral smear negative for HIT .Hemoglobin level at 8.4 g/deciliter Status post CABG procedure. Patient is waking up. Patient actually on heparin drip. With no obvious bleeding PHYSICAL EXAM EYES: Anicteric. Pupils equal and reactive. HENT: No oral thrush seen, moist Oral mucosa NECK: Supple, no JVD or thyromegaly. LUNGS: Good air entry. No rales, no rhonchi. CARDIOVASCULAR: S1, S2 regular. No murmur heard. ABDOMEN: Soft, non tender, bowel sounds present, no organomegaly CENTRAL NERVOUS SYSTEM: Awake, alert, oriented x 3. No focal deficits. SKIN: No rashes, no swelling. LYMPHATICS: No peripheral lymphadenopathy MUSCULOSKELETAL: No joint swelling, erythema or tenderness. EXTREMITIES: No cyanosis or clubbing BACK: No deformity, no pressure ulcer. GENITOURINARY: No dysuria or hematuria ASSESSMENT: 1. Thrombocytopenia. Platelet count stable at 90K. 2. Anemia. Hemoglobin level 8.4 g/deciliter 3. NSTEMI, POA 4. Cardiogenic shock SCAI stage D Status post bypass procedure 5. Complete heart block, status post transvenous temporary pacemaker placement POA 6. CAD, with multivessel disease, POA 7. DM type 2, with hyperglycemia, poorly controlled, HGB A1c of 10.7 POA PLAN: 1.Peripheral blood smear showed microcytic RBCs. Patient was found to have iron deficiency anemia. This patient was started on IV iron 200 mg daily for 3 days. This patient will need oral iron every other day for 6 months 2. There is no need for Procrit to be done at this time 3. Patient to be transfused as per cardiothoracic surgery 4. This patient is not suspicious for any heparin-induced thrombocytopenia. Patient to be continued on heparin drip as scheduled. 5. Continue care as per cardiothoracic surgeon Vitals/Labs Vital Signs Date Time Temp Pulse Resp B/P (MAP) Pulse Ox O2 Delivery O2 Flow Rate FiO2 08/24/25 13:00 80 18 92/52 (65) 98 94/55 (68) 08/24/25 12:00 Nasal Cannula* 3 32 08/24/25 12:00 98.4 Laboratory Tests 08/23/25 15:20 08/24/25 04:00 Medications Current Medications Ondansetron HCl 4 mg ONCE ONCE IVP; Start 08/13/25 at 14:30; Stop 08/13/25 at 14:52; Status DC Sodium Chloride 500 ml @ 0 mls/hr ONCE ONCE IV Last administered on 08/13/25at 15:00; Start 08/13/25 at 14:30; Stop 08/13/25 at 14:31; Status DC Heparin Sodium (Porcine) *calculation based on ACTUAL B... AD PRN IV Last administered on 08/17/25at 04:46; Start 08/13/25 at 16:30; Stop 08/20/25 at 16:32; Status DC Heparin Sodium/ Dextrose 250 ml @ 0 mls/hr Q6H IV Last administered on 08/19/25at 22:03; Start 08/13/25 at 16:30; Stop 08/20/25 at 16:32; Status DC Norepinephrine 250 ml @ 0 mls/hr PROTOCOL IV; Start 08/13/25 at 15:30; Stop 08/20/25 at 08:31; Status DC Dopamine HCl/ Dextrose 250 ml @ As Directed STK-MED ONCE IV; Start 08/13/25 at 15:33; Stop 08/13/25 at 15:33; Status DC Aspirin 325 mg STK-MED ONCE .ROUTE; Start 08/13/25 at 15:34; Stop 08/13/25 at 15:33; Status DC Ticagrelor 180 mg ONCE ONCE PO Last administered on 08/13/25at 16:16; Start 08/13/25 at 16:00; Stop 08/13/25 at 16:01; Status DC Morphine Sulfate 1 mg ONCE ONCE IVP Last administered on 08/13/25at 16:23; Start 08/13/25 at 16:00; Stop 08/13/25 at 16:01; Status DC Ticagrelor 90 mg STK-MED ONCE .ROUTE; Start 08/13/25 at 15:50; Stop 08/13/25 at 15:50; Status DC Dopamine HCl/ Dextrose 250 ml @ 0 mls/hr PROTOCOL IV Last administered on 08/16/25at 16:41; Start 08/13/25 at 16:00; Stop 09/12/25 at 15:59 Aspirin 325 mg ONCE ONCE PO Last administered on 08/13/25at 16:15; Start 08/13/25 at 16:00; Stop 08/13/25 at 16:01; Status DC Lidocaine HCl 20 ml STK-MED ONCE .ROUTE; Start 08/13/25 at 16:12; Stop 08/13/25 at 16:12; Status DC Iohexol 35,000 mg STK-MED ONCE IV; Start 08/13/25 at 16:12; Stop 08/13/25 at 16:12; Status DC Heparin Sodium (Porcine) 10,000 unit STK-MED ONCE .ROUTE; Start 08/13/25 at 16:12; Stop 08/13/25 at 16:12; Status DC Nicardipine HCl 25 mg STK-MED ONCE IV; Start 08/13/25 at 16:12; Stop 08/13/25 at 16:12; Status DC Heparin Sodium/ Sodium Chloride 1,000 ml @ As Directed STK-MED ONCE IV; Start 08/13/25 at 16:12; Stop 08/13/25 at 16:12; Status DC Nitroglycerin 50 mg STK-MED ONCE .ROUTE; Start 08/13/25 at 16:12; Stop 08/13/25 at 16:12; Status DC Pantoprazole Sodium 40 mg Q24H IVP Last administered on 08/16/25at 16:07; Start 08/13/25 at 16:30; Stop 08/17/25 at 11:10; Status DC Insulin Human Regular INSULIN SLIDING SCAL... ACHS SQ Last administered on 08/16/25at 20:01; Start 08/13/25 at 16:30; Stop 08/16/25 at 20:46; Status DC Insulin Human Regular 5 unit ONCE ONCE IV; Start 08/13/25 at 16:30; Stop 08/13/25 at 16:31; Status DC Fentanyl Citrate 100 mcg STK-MED ONCE .ROUTE; Start 08/13/25 at 16:26; Stop 08/13/25 at 16:26; Status DC Midazolam HCl 2 mg STK-MED ONCE .ROUTE; Start 08/13/25 at 16:27; Stop 08/13/25 at 16:27; Status DC Acetaminophen 650 mg Q6H PRN PO Last administered on 08/23/25at 11:01; Start 08/13/25 at 16:30; Stop 09/12/25 at 16:29 Ondansetron HCl 4 mg Q6H PRN IVP; Start 08/13/25 at 16:30; Stop 08/14/25 at 14:08; Status DC Potassium Chloride 100 ml @ 100 mls/hr AD PRN IV Last administered on 08/16/25at 16:07; Start 08/13/25 at 16:30; Stop 08/20/25 at 16:32; Status DC Potassium Chloride 20 meq AD PRN PO; Start 08/13/25 at 16:30; Stop 08/20/25 at 16:32; Status DC Potassium Chloride 20 meq AD PRN PO Last administered on 08/15/25at 08:23; Start 08/13/25 at 16:30; Stop 08/20/25 at 16:32; Status DC Magnesium Sulfate 50 ml @ 0 mls/hr PROTOCOL IV Last administered on 08/21/25at 05:58; Start 08/13/25 at 16:30; Stop 08/21/25 at 10:49; Status DC Atorvastatin Calcium 40 mg HS PO Last administered on 08/23/25at 21:18; Start 08/13/25 at 21:00; Stop 09/12/25 at 20:59 Heparin Sodium/ Sodium Chloride 500 ml @ As Directed STK-MED ONCE IV; Start 08/13/25 at 17:14; Stop 08/13/25 at 17:14; Status DC Heparin Sodium (Porcine) 10,000 unit STK-MED ONCE .ROUTE; Start 08/13/25 at 18:03; Stop 08/13/25 at 18:03; Status DC Aspirin 81 mg DAILY PO Last administered on 08/24/25at 09:33; Start 08/14/25 at 09:00; Stop 09/13/25 at 08:59 Insulin Glargine 10 units HS SQ Last administered on 08/13/25at 20:21; Start 08/13/25 at 21:00; Stop 08/14/25 at 06:16; Status DC Dextrose 50 ml AD PRN IV; Start 08/13/25 at 20:00; Stop 08/20/25 at 22:03; Status DC Glucagon 1 mg AD PRN IM; Start 08/13/25 at 20:00; Stop 08/21/25 at 10:49; Status DC Sodium Bicarbonate 25 meq/Dextrose 1,000 ml @ 0 mls/hr Q0M IVP; Start 08/14/25 at 00:30; Stop 08/14/25 at 00:15; Status DC Sodium Bicarbonate 25 meq/Dextrose 1,000 ml @ 0 mls/hr Q0M IV Last administered on 08/20/25at 23:15; Start 08/14/25 at 00:30; Stop 09/13/25 at 00:29 Glycerin 1 supp ONCE ONCE RC Last administered on 08/14/25at 05:56; Start 08/14/25 at 05:00; Stop 08/14/25 at 05:06; Status DC Insulin Glargine 20 units DAILY SQ Last administered on 08/14/25at 08:01; Start 08/14/25 at 09:00; Stop 08/15/25 at 07:24; Status DC Ticagrelor 90 mg BID PO Last administered on 08/14/25at 20:09; Start 08/14/25 at 09:00; Stop 08/14/25 at 21:19; Status DC Morphine Sulfate 2 mg Q6H PRN IVP Last administered on 08/19/25at 12:22; Start 08/14/25 at 09:30; Stop 08/19/25 at 12:29; Status DC Polyethylene Glycol 17 gm DAILY PO Last administered on 08/24/25at 09:35; Start 08/15/25 at 09:00; Stop 09/14/25 at 08:59 Docusate Sodium 100 mg BID PRN PO; Start 08/14/25 at 11:00; Stop 09/13/25 at 10:59 Ceftriaxone Sodium 2 gm Q24H IVPB Last administered on 08/23/25at 12:16; Start 08/14/25 at 11:30; Stop 08/24/25 at 11:29; Status DC Insulin Human Regular 5 unit TIDAC SQ Last administered on 08/15/25at 07:03; Start 08/14/25 at 17:00; Stop 08/15/25 at 07:24; Status DC Chlordiazepoxide HCl 25 mg Q2H PRN PO Last administered on 08/16/25at 23:38; Start 08/14/25 at 14:30; Stop 08/20/25 at 16:32; Status DC Chlordiazepoxide HCl 50 mg Q1H PRN PO; Start 08/14/25 at 14:30; Stop 08/20/25 at 16:32; Status DC Ondansetron HCl 4 mg Q4H PRN IV Last administered on 08/14/25at 14:17; Start 08/14/25 at 14:30; Stop 08/20/25 at 16:32; Status DC Promethazine HCl 25 mg Q6H PRN PO; Start 08/14/25 at 14:30; Stop 08/20/25 at 16:32; Status DC Acetaminophen 500 mg Q6H PRN PO Last administered on 08/20/25at 08:23; Start 08/14/25 at 14:30; Stop 09/13/25 at 14:29 Thiamine HCl 300 mg DAILY IV Last administered on 08/17/25at 07:46; Start 08/15/25 at 09:00; Stop 08/17/25 at 09:01; Status DC Folic Acid 1 mg DAILY PO Last administered on 08/17/25at 07:46; Start 08/15/25 at 09:00; Stop 08/17/25 at 09:01; Status DC Multivitamins Therapeutic 1 tab DAILY PO Last administered on 08/24/25at 09:32; Start 08/15/25 at 09:00; Stop 09/14/25 at 08:59 Pharmacy Profile Note 1 each PROTOCOL PRN MISC; Start 08/14/25 at 14:30; Stop 08/14/25 at 14:08; Status DC Insulin Glargine 30 units DAILY SQ Last administered on 08/15/25at 08:28; Start 08/15/25 at 09:00; Stop 08/16/25 at 07:19; Status DC Insulin Human Regular 8 unit TIDAC SQ Last administered on 08/15/25at 16:02; Start 08/15/25 at 07:30; Stop 08/15/25 at 22:46; Status DC Diphenhydramine HCl 25 mg ONCE ONCE IM; Start 08/15/25 at 21:00; Stop 08/15/25 at 22:52; Status DC Insulin Human Regular 10 unit TIDAC SQ Last administered on 08/17/25at 16:09; Start 08/16/25 at 07:30; Stop 08/17/25 at 21:12; Status DC Diphenhydramine HCl 25 mg ONCE PRN IV; Start 08/15/25 at 23:00; Stop 08/17/25 at 22:59; Status DC Insulin Glargine 35 units DAILY SQ Last administered on 08/18/25at 07:59; Start 08/16/25 at 09:00; Stop 08/19/25 at 07:35; Status DC Bisacodyl 10 mg DAILY RC Last administered on 08/18/25at 07:58; Start 08/17/25 at 09:00; Stop 08/20/25 at 08:59; Status DC Insulin Human Lispro INSULIN SLIDING SCAL... ACHS SQ; Start 08/16/25 at 21:00; Stop 08/17/25 at 09:31; Status DC Insulin Glargine 5 units BID@0730,2100 SQ Last administered on 08/16/25at 21:21; Start 08/16/25 at 21:00; Stop 08/17/25 at 09:31; Status DC Pantoprazole Sodium 40 mg Q12H IVP Last administered on 08/20/25at 03:53; Start 08/17/25 at 16:30; Stop 08/20/25 at 16:32; Status DC Insulin Human Regular INSULIN SLIDING SCAL... ACHS SQ Last administered on 08/19/25at 21:31; Start 08/17/25 at 16:30; Stop 08/20/25 at 16:32; Status DC Insulin Human Regular 12 unit TIDAC SQ Last administered on 08/18/25at 16:39; Start 08/18/25 at 07:30; Stop 08/18/25 at 20:19; Status DC Vancomycin HCl 1 each AD IV; Start 08/17/25 at 22:00; Stop 08/31/25 at 21:59 Vancomycin HCl 250 ml @ 83.333 mls/ hr ONCE ONCE IV Last administered on 08/17/25at 23:05; Start 08/17/25 at 22:30; Stop 08/18/25 at 01:29; Status DC Vancomycin HCl 250 ml @ 125 mls/hr Q12H IV Last administered on 08/19/25at 09:39; Start 08/18/25 at 09:00; Stop 08/19/25 at 20:54; Status DC Albumin Human 50 ml @ 0 mls/hr BID IV Last administered on 08/22/25at 20:56; Start 08/18/25 at 09:00; Stop 08/23/25 at 08:59; Status DC Lidocaine 1 each DAILY TP Last administered on 08/24/25at 09:32; Start 08/19/25 at 09:00; Stop 09/18/25 at 08:59 Lidocaine 1 each ONCE ONCE TP Last administered on 08/18/25at 13:52; Start 08/18/25 at 14:00; Stop 08/18/25 at 14:01; Status DC Diphenhydramine HCl 25 mg ONCE ONCE PO Last administered on 08/18/25at 15:19; Start 08/18/25 at 15:30; Stop 08/18/25 at 15:31; Status DC Insulin Human Regular 16 unit TIDAC SQ Last administered on 08/19/25at 16:47; Start 08/19/25 at 07:30; Stop 08/20/25 at 06:22; Status DC Insulin Glargine 42 units DAILY SQ Last administered on 08/19/25at 09:40; Start 08/19/25 at 09:00; Stop 08/20/25 at 06:22; Status DC Calcium Carbonate 500 tab QID PRN PO Last administered on 08/20/25at 05:10; Start 08/19/25 at 12:00; Stop 08/20/25 at 16:32; Status DC Morphine Sulfate 2 mg Q6H PRN IVP Last administered on 08/19/25at 17:50; Start 08/19/25 at 18:00; Stop 08/20/25 at 16:32; Status DC Cefazolin Sodium 2 gm ONCALL IVP Last administered on 08/20/25at 16:30; Start 08/19/25 at 19:30; Stop 08/21/25 at 08:36; Status DC Vancomycin HCl 250 ml @ 125 mls/hr Q8H IV Last administered on 08/20/25at 22:26; Start 08/19/25 at 21:30; Stop 08/21/25 at 00:23; Status DC Sodium Chloride 500 ml @ 500 mls/hr Q1H IV Last administered on 08/20/25at 00:53; Start 08/20/25 at 00:33; Stop 08/20/25 at 03:16; Status DC Nitroglycerin/ Dextrose 250 ml @ 0 mls/hr PROTOCOL IV Last administered on 08/20/25at 03:12; Start 08/20/25 at 03:30; Stop 08/20/25 at 16:32; Status DC Insulin Glargine 45 units DAILY SQ; Start 08/20/25 at 09:00; Stop 08/20/25 at 16:32; Status DC Insulin Human Regular 17 unit TIDAC SQ; Start 08/20/25 at 07:30; Stop 08/20/25 at 16:32; Status DC Epinephrine HCl 10 mg/Sodium Chloride 250 ml @ 0 mls/hr AD PRN IV Last administered on 08/22/25at 04:22; Start 08/20/25 at 08:00; Stop 09/19/25 at 07:59 Norepinephrine Bitartrate 250 ml @ 0 mls/hr AD PRN IV Last administered on 08/21/25at 06:40; Start 08/20/25 at 08:00; Stop 09/19/25 at 07:59 Aminocaproic Acid 00488 mg/Sodium Chloride 480 ml @ 0 mls/hr AD PRN IV; Start 08/20/25 at 08:00; Stop 09/19/25 at 07:59 Cefazolin Sodium 1 gm STK-MED ONCE .ROUTE; Start 08/20/25 at 08:23; Stop 08/20/25 at 08:23; Status DC Heparin Sodium/ Sodium Chloride 500 ml @ As Directed STK-MED ONCE IV; Start 08/20/25 at 08:23; Stop 08/20/25 at 08:24; Status DC Papaverine HCl 60 mg STK-MED ONCE .ROUTE Last administered on 08/20/25at 17:05; Start 08/20/25 at 08:23; Stop 08/20/25 at 08:24; Status DC Epinephrine HCl 10 mg/Sodium Chloride 250 ml @ 0 mls/hr AD PRN IV; Start 08/20/25 at 09:00; Stop 08/20/25 at 09:03; Status DC Norepinephrine Bitartrate 250 ml @ 0 mls/hr AD PRN IV; Start 08/20/25 at 09:00; Stop 08/20/25 at 09:03; Status DC Aminocaproic Acid 38087 mg/Sodium Chloride 480 ml @ 0 mls/hr AD PRN IV; Start 08/20/25 at 09:00; Stop 08/20/25 at 09:03; Status DC Protamine Sulfate 250 mg STK-MED ONCE IV; Start 08/20/25 at 15:44; Stop 08/20/25 at 15:44; Status DC Lidocaine HCl 100 mg STK-MED ONCE .ROUTE; Start 08/20/25 at 15:44; Stop 08/20/25 at 15:44; Status DC Heparin Sodium (Porcine) 10,000 unit STK-MED ONCE .ROUTE; Start 08/20/25 at 15:44; Stop 08/20/25 at 15:44; Status DC Epinephrine HCl 1 mg STK-MED ONCE .ROUTE; Start 08/20/25 at 15:44; Stop 08/20/25 at 15:44; Status DC Sodium Bicarbonate 200 ml @ As Directed STK-MED ONCE .ROUTE; Start 08/20/25 at 15:44; Stop 08/20/25 at 15:44; Status DC Norepinephrine Bitartrate 4 mg STK-MED ONCE IV; Start 08/20/25 at 15:44; Stop 08/20/25 at 15:44; Status DC Propofol 200 mg STK-MED ONCE IV; Start 08/20/25 at 15:45; Stop 08/20/25 at 15:44; Status DC Fentanyl Citrate 1,000 mcg STK-MED ONCE IJ; Start 08/20/25 at 15:45; Stop 08/20/25 at 15:45; Status DC Midazolam HCl 2 mg STK-MED ONCE .ROUTE; Start 08/20/25 at 15:45; Stop 08/20/25 at 15:45; Status DC Rocuronium [place] 50 mg STK-MED ONCE .ROUTE; Start 08/20/25 at 15:45; Stop 08/20/25 at 15:45; Status DC Sodium Bicarbonate 400 ml @ As Directed STK-MED ONCE .ROUTE; Start 08/20/25 at 15:46; Stop 08/20/25 at 15:46; Status DC Cefazolin Sodium 1 gm STK-MED ONCE .ROUTE Last administered on 08/20/25at 17:05; Start 08/20/25 at 16:19; Stop 08/20/25 at 16:19; Status DC Vancomycin HCl 250 ml @ As Directed STK-MED ONCE IV Last administered on 08/20/25at 16:40; Start 08/20/25 at 16:40; Stop 08/20/25 at 16:40; Status DC Sodium Chloride 1,000 ml @ 10 mls/hr ONCE IV Last administered on 08/20/25at 22:31; Start 08/20/25 at 17:00; Stop 08/21/25 at 16:59; Status DC Sodium Chloride 10 ml Q8H PRN IVP; Start 08/20/25 at 17:00; Stop 09/19/25 at 16:59 Morphine Sulfate 0.5 mg Q2H PRN IV; Start 08/20/25 at 17:00; Stop 08/20/25 at 18:07; Status DC Morphine Sulfate 1 mg Q2H PRN IV; Start 08/20/25 at 17:00; Stop 08/21/25 at 16:59; Status DC Acetaminophen 650 mg Q4H PRN RC; Start 08/20/25 at 17:00; Stop 09/19/25 at 16:59 Ondansetron HCl 4 mg Q6H PRN IV; Start 08/20/25 at 17:00; Stop 09/19/25 at 16:59 Sodium Chloride 500 ml @ 0 mls/hr AD IV; Start 08/20/25 at 17:00; Stop 09/19/25 at 16:59 Nitroglycerin/ Dextrose 0 ml @ 0 mls/hr AD IV; Start 08/20/25 at 17:00; Stop 08/23/25 at 16:59; Status DC Propofol 100 ml @ 0 mls/hr AD PRN IV; Start 08/20/25 at 17:00; Stop 08/24/25 at 16:59 Norepinephrine Bitartrate 8 mg/ Dextrose 250 ml @ 0 mls/hr AD PRN IV; Start 08/20/25 at 17:00; Stop 08/21/25 at 10:49; Status DC Epinephrine HCl 10 mg/Sodium Chloride 250 ml @ 14.091 mls/ hr AD PRN IV; Start 08/20/25 at 17:00; Stop 08/21/25 at 10:49; Status DC Aminocaproic Acid 60217 mg/Sodium Chloride 310 ml @ 25 mls/hr AD IV; Start 08/20/25 at 17:00; Stop 08/21/25 at 05:23; Status DC Calcium Gluconate 1 gm/Sodium Chloride 60 ml @ 200 mls/hr AD PRN IV Last administered on 08/24/25at 05:01; Start 08/20/25 at 17:00; Stop 09/19/25 at 16:59 Magnesium Sulfate 50 ml @ 12.5 mls/hr AD PRN IV Last administered on 08/24/25at 05:02; Start 08/20/25 at 17:00; Stop 09/19/25 at 16:59 Potassium Chloride 100 ml @ 100 mls/hr AD PRN IV Last administered on 08/24/25at 05:02; Start 08/20/25 at 17:00; Stop 09/19/25 at 16:59 Potassium Phosphate 250 ml @ 42 mls/hr AD PRN IV; Start 08/20/25 at 17:00; Stop 09/19/25 at 16:59 Albumin Human 250 ml @ 0 mls/hr AD PRN IV Last administered on 08/20/25at 22:46; Start 08/20/25 at 17:00; Stop 08/20/25 at 22:46; Status DC Acetaminophen 650 mg Q4H PRN PO; Start 08/20/25 at 17:00; Stop 09/19/25 at 16:59 Insulin Human Regular 100 unit/ Sodium Chloride 100 ml @ 0 mls/hr AD IV Last administered on 08/21/25at 15:00; Start 08/20/25 at 17:00; Stop 08/22/25 at 16:59; Status DC Cefazolin Sodium 2 gm Q8H IVPB Last administered on 08/21/25at 13:45; Start 08/20/25 at 22:00; Stop 08/21/25 at 14:01; Status DC Tramadol HCl 25 mg Q6H PRN PO; Start 08/20/25 at 17:00; Stop 08/25/25 at 16:59 Tramadol HCl 50 mg Q6H PRN PO Last administered on 08/23/25at 21:18; Start 08/20/25 at 17:00; Stop 08/25/25 at 16:59 Famotidine 20 mg BID IV Last administered on 08/21/25at 20:17; Start 08/20/25 at 21:00; Stop 08/22/25 at 08:20; Status DC Sodium Bicarbonate 50 meq AD PRN IV Last administered on 08/21/25at 01:19; Start 08/20/25 at 17:00; Stop 08/23/25 at 16:59; Status DC Dextrose 50 ml AD PRN IV; Start 08/20/25 at 17:00; Stop 09/19/25 at 16:59 Glucagon 1 mg AD PRN IM; Start 08/20/25 at 17:00; Stop 09/19/25 at 16:59 Amiodarone HCL/ Dextrose 100 ml @ As Directed STK-MED ONCE .ROUTE; Start 08/20/25 at 16:52; Stop 08/20/25 at 16:52; Status DC Lidocaine HCl 100 mg STK-MED ONCE .ROUTE; Start 08/20/25 at 17:34; Stop 08/20/25 at 17:34; Status DC Morphine Sulfate 0.5 mg Q2H PRN IV; Start 08/20/25 at 18:30; Stop 08/21/25 at 16:59; Status DC Heparin Sodium (Porcine) 10,000 unit STK-MED ONCE .ROUTE; Start 08/20/25 at 18:12; Stop 08/20/25 at 18:12; Status DC Insulin Human Regular 300 unit STK-MED ONCE .ROUTE; Start 08/20/25 at 19:39; Stop 08/20/25 at 19:39; Status DC Dexmedetomidine/ Sodium Chloride 400 mcg PROTOCOL IV Last administered on 08/22/25at 00:35; Start 08/20/25 at 20:30; Stop 09/19/25 at 20:29 Magnesium Sulfate 8.12 meq STK-MED ONCE IJ; Start 08/20/25 at 20:17; Stop 08/20/25 at 20:17; Status DC Vasopressin 20 units STK-MED ONCE .ROUTE; Start 08/20/25 at 20:17; Stop 08/20/25 at 20:17; Status DC Amiodarone HCl 360 mg/Dextrose 207.2 ml @ 33.3 mls/hr AD IV; Start 08/20/25 at 21:00; Stop 08/20/25 at 21:05; Status DC Amiodarone HCl 540 mg/Dextrose 310.8 ml @ 16.7 mls/hr [id number] IV Last administered on 08/21/25at 20:12; Start 08/21/25 at 03:00; Stop 09/20/25 at 02:59 Amiodarone HCL/ Dextrose 207.2 ml @ 33.3 mls/hr AD IV Last administered on 08/20/25at 21:24; Start 08/20/25 at 21:30; Stop 08/21/25 at 10:49; Status DC Albumin Human 250 ml @ 0 mls/hr ONCE ONCE IV Last administered on 08/20/25at 00:00; Start 08/20/25 at 00:00; Stop 08/20/25 at 23:58; Status DC Lidocaine HCl/ Dextrose 250 ml @ 0 mls/hr PROTOCOL IV; Start 08/21/25 at 00:00; Stop 09/20/25 at 00:00 Albumin Human 250 ml @ As Directed STK-MED ONCE IV; Start 08/21/25 at 00:03; Stop 08/21/25 at 00:05; Status DC Vancomycin HCl 250 ml @ 125 mls/hr Q8H IV; Start 08/21/25 at 08:00; Stop 08/21/25 at 06:28; Status DC Vancomycin HCl 250 ml @ 125 mls/hr Q8H IV Last administered on 08/21/25at 08:15; Start 08/21/25 at 06:30; Stop 08/21/25 at 08:35; Status DC Vancomycin HCl 250 ml @ 125 mls/hr Q8H IV Last administered on 08/24/25at 09:32; Start 08/21/25 at 16:30; Stop 08/31/25 at 16:29 Furosemide 20 mg Q12H IV Last administered on 08/22/25at 11:53; Start 08/21/25 at 11:30; Stop 08/22/25 at 14:17; Status DC Acetaminophen 1,000 mg Q6H6 IVPB Last administered on 08/24/25at 11:57; Start 08/21/25 at 12:00; Stop 09/20/25 at 11:59 Heparin Sodium/ Dextrose 250 ml @ 0 mls/hr PROTOCOL IV Last administered on 08/23/25at 14:36; Start 08/21/25 at 11:30; Stop 09/20/25 at 11:29 Iron Sucrose 200 mg DAILY IV Last administered on 08/22/25at 11:53; Start 08/21/25 at 13:00; Stop 08/23/25 at 09:43; Status DC Amiodarone HCl 200 mg BID PO Last administered on 08/24/25at 09:33; Start 08/22/25 at 09:00; Stop 08/29/25 at 21:00 Famotidine 20 mg BID PO Last administered on 08/24/25at 09:33; Start 08/22/25 at 09:00; Stop 09/21/25 at 08:59 Insulin Human Regular INSULIN SLIDING SCAL... ACHS SQ Last administered on 08/22/25at 20:58; Start 08/22/25 at 11:30; Stop 08/22/25 at 21:32; Status DC Furosemide 40 mg Q12H IV; Start 08/22/25 at 21:00; Stop 08/22/25 at 14:32; Status DC Furosemide 20 mg Q12H IV Last administered on 08/23/25at 09:50; Start 08/22/25 at 21:00; Stop 08/23/25 at 11:37; Status DC Insulin Human Regular INSULIN SLIDING SCAL... ACHS SQ Last administered on 08/24/25at 11:56; Start 08/23/25 at 07:30; Stop 09/22/25 at 07:29 Insulin Glargine 15 units DAILY SQ Last administered on 08/24/25at 09:34; Start 08/23/25 at 09:00; Stop 09/22/25 at 08:59 Iron Sucrose 200 mg DAILY IV Last administered on 08/24/25at 09:32; Start 08/23/25 at 09:00; Stop 09/22/25 at 08:59 Furosemide 40 mg Q12H IV Last administered on 08/24/25at 11:56; Start 08/23/25 at 11:30; Stop 09/22/25 at 11:29 Gabapentin 300 mg TID PO Last administered on 08/24/25at 13:29; Start 08/23/25 at 14:00; Stop 09/22/25 at 13:59 YAMILE MONTANO MD Aug 24, 2025 13:36
[2025-08-24 15:39] LABS: CREATININE 0.5 mg/dL (0.5-1.0); GLOMERULAR FILTR. RATE CALC 109.0 mL/min (>90); GLUCOSE,RANDOM 100.0 mg/dL (70-105); SODIUM SERUM 140.0 mmol/L (136-145); UREA NITROGEN, BLOOD 16.0 mg/dL (7-18); VANCOMYCIN TROUGH 20.0 UG/ML (10.0-20.0)
--- NOTE | 2025-08-24 19:41 | PN ---
Endocrinology progress note DOS: 08/24/25 subjective: Home diabetic regimen: metformin 500 mg bid Hba1c 10.7% glucose runs less than 180 mg/dl. patient is s/p CABG PAST MEDICAL HISTORY: Coronary artery disease with history of abnormal coronary CT angiography, gastritis, anemia, cocaine use disorder, obesity, PTSD, anxiety disorder, history of NSTEMI in 04/2025, history of CVA in 2008 PAST SURGICAL HISTORY: History of ventral hernia repair 2008, hx of cholecystectomy, hx of C Section PAST SOCIAL HISTORY: Denies active alcohol consumption, intermittently smokes cigarettes as well as has been using cocaine chronically FAMILY HISTORY: Reports family history of heart disease Home medications: Patient does not have list of home medications, family will be bringing list of home medications to be updated Allergies: Patient has allergic reaction to lisinopril Coded Allergies: No Known Drug Allergies (Verified Allergy, Unknown, 05/04/22) lisinopril (Verified Allergy, Unknown, 05/04/22) DIAGNOSTICS / RADIOLOGY: SERVICE 1425 REASON: cp ORDERING PHYSICIAN: ZORA OCHOA MD PROCEDURE: CXR1VW - CHEST 1VW EXAM: CR Chest, 1 View. CLINICAL HISTORY: cp COMPARISON: 07/08/25 FINDINGS: LUNGS: The lungs show no infiltrate or other acute finding. PLEURAL SPACES: No pleural effusion or pneumothorax. MEDIASTINUM: The cardiomediastinal silhouette is within normal limits. BONES: No aggressive appearing osseous lesion seen. IMPRESSION: No acute cardiopulmonary pathology is evident. /[place] DICTATED BY: BELKIS KURTZ MD DATE: 08/13/251731 ELECTRONICALLY SIGNED BY: BELKIS KURTZ MD DATE: 08/13/251731 ASSESSMENT: uncontrolled DM-2 Home diabetic regimen: metformin 500 mg bid Hba1c 10.7% glucose runs less than 180 mg/dl. off insulin drip now and on low dose ssi and low dose lantus insulin. Cardiogenic shock with lactic acidosis, POA cardiology following, s/p CABG procedure. NSTEMI/ACS, POA Complete heart block, POA History of multivessel coronary artery disease, POA History of cocaine use disorder, POA Lactic acidosis, POA History of anemia, POA History of gastritis, POA History of hypertension, POA History of PTSD/anxiety, POA Obesity, POA Medical noncompliance, POA PLAN: continue Lantus 15 units daily and adjust for fasting glucose. start Regular insulin 5 units three times before meals if glucose are high after meals. continue medium dose sliding scale insulin. Monitor glucose q x 6 hourly. Continue carb consistent diet. Keep glucose less than 180 mg/dl. Patient will need insulin at discharge. Vitals/Labs Vital Signs Date Time Temp Pulse Resp B/P (MAP) Pulse Ox O2 Delivery O2 Flow Rate FiO2 08/24/25 19:21 80 23 N/Cannula Low lpm 3.0 32 08/24/25 18:30 97 95/56 (69) 08/24/25 16:16 98.8 Laboratory Tests 08/24/25 04:00 08/24/25 15:13 Medications Current Medications Ondansetron HCl 4 mg ONCE ONCE IVP; Start 08/13/25 at 14:30; Stop 08/13/25 at 14:52; Status DC Sodium Chloride 500 ml @ 0 mls/hr ONCE ONCE IV Last administered on 08/13/25at 15:00; Start 08/13/25 at 14:30; Stop 08/13/25 at 14:31; Status DC Heparin Sodium (Porcine) *calculation based on ACTUAL B... AD PRN IV Last administered on 08/17/25at 04:46; Start 08/13/25 at 16:30; Stop 08/20/25 at 16:32; Status DC Heparin Sodium/ Dextrose 250 ml @ 0 mls/hr Q6H IV Last administered on 08/19/25at 22:03; Start 08/13/25 at 16:30; Stop 08/20/25 at 16:32; Status DC Norepinephrine 250 ml @ 0 mls/hr PROTOCOL IV; Start 08/13/25 at 15:30; Stop 08/20/25 at 08:31; Status DC Dopamine HCl/ Dextrose 250 ml @ As Directed STK-MED ONCE IV; Start 08/13/25 at 15:33; Stop 08/13/25 at 15:33; Status DC Aspirin 325 mg STK-MED ONCE .ROUTE; Start 08/13/25 at 15:34; Stop 08/13/25 at 15:33; Status DC Ticagrelor 180 mg ONCE ONCE PO Last administered on 08/13/25at 16:16; Start 08/13/25 at 16:00; Stop 08/13/25 at 16:01; Status DC Morphine Sulfate 1 mg ONCE ONCE IVP Last administered on 08/13/25at 16:23; Start 08/13/25 at 16:00; Stop 08/13/25 at 16:01; Status DC Ticagrelor 90 mg STK-MED ONCE .ROUTE; Start 08/13/25 at 15:50; Stop 08/13/25 at 15:50; Status DC Dopamine HCl/ Dextrose 250 ml @ 0 mls/hr PROTOCOL IV Last administered on 08/16/25at 16:41; Start 08/13/25 at 16:00; Stop 09/12/25 at 15:59 Aspirin 325 mg ONCE ONCE PO Last administered on 08/13/25at 16:15; Start 08/13/25 at 16:00; Stop 08/13/25 at 16:01; Status DC Lidocaine HCl 20 ml STK-MED ONCE .ROUTE; Start 08/13/25 at 16:12; Stop 08/13/25 at 16:12; Status DC Iohexol 35,000 mg STK-MED ONCE IV; Start 08/13/25 at 16:12; Stop 08/13/25 at 16:12; Status DC Heparin Sodium (Porcine) 10,000 unit STK-MED ONCE .ROUTE; Start 08/13/25 at 16:12; Stop 08/13/25 at 16:12; Status DC Nicardipine HCl 25 mg STK-MED ONCE IV; Start 08/13/25 at 16:12; Stop 08/13/25 at 16:12; Status DC Heparin Sodium/ Sodium Chloride 1,000 ml @ As Directed STK-MED ONCE IV; Start 08/13/25 at 16:12; Stop 08/13/25 at 16:12; Status DC Nitroglycerin 50 mg STK-MED ONCE .ROUTE; Start 08/13/25 at 16:12; Stop 08/13/25 at 16:12; Status DC Pantoprazole Sodium 40 mg Q24H IVP Last administered on 08/16/25at 16:07; Start 08/13/25 at 16:30; Stop 08/17/25 at 11:10; Status DC Insulin Human Regular INSULIN SLIDING SCAL... ACHS SQ Last administered on 08/16/25at 20:01; Start 08/13/25 at 16:30; Stop 08/16/25 at 20:46; Status DC Insulin Human Regular 5 unit ONCE ONCE IV; Start 08/13/25 at 16:30; Stop 08/13/25 at 16:31; Status DC Fentanyl Citrate 100 mcg STK-MED ONCE .ROUTE; Start 08/13/25 at 16:26; Stop 08/13/25 at 16:26; Status DC Midazolam HCl 2 mg STK-MED ONCE .ROUTE; Start 08/13/25 at 16:27; Stop 08/13/25 at 16:27; Status DC Acetaminophen 650 mg Q6H PRN PO Last administered on 08/23/25at 11:01; Start 08/13/25 at 16:30; Stop 09/12/25 at 16:29 Ondansetron HCl 4 mg Q6H PRN IVP; Start 08/13/25 at 16:30; Stop 08/14/25 at 14:08; Status DC Potassium Chloride 100 ml @ 100 mls/hr AD PRN IV Last administered on 08/16/25at 16:07; Start 08/13/25 at 16:30; Stop 08/20/25 at 16:32; Status DC Potassium Chloride 20 meq AD PRN PO; Start 08/13/25 at 16:30; Stop 08/20/25 at 16:32; Status DC Potassium Chloride 20 meq AD PRN PO Last administered on 08/15/25at 08:23; Start 08/13/25 at 16:30; Stop 08/20/25 at 16:32; Status DC Magnesium Sulfate 50 ml @ 0 mls/hr PROTOCOL IV Last administered on 08/21/25at 05:58; Start 08/13/25 at 16:30; Stop 08/21/25 at 10:49; Status DC Atorvastatin Calcium 40 mg HS PO Last administered on 08/23/25at 21:18; Start 08/13/25 at 21:00; Stop 09/12/25 at 20:59 Heparin Sodium/ Sodium Chloride 500 ml @ As Directed STK-MED ONCE IV; Start 08/13/25 at 17:14; Stop 08/13/25 at 17:14; Status DC Heparin Sodium (Porcine) 10,000 unit STK-MED ONCE .ROUTE; Start 08/13/25 at 18:03; Stop 08/13/25 at 18:03; Status DC Aspirin 81 mg DAILY PO Last administered on 08/24/25at 09:33; Start 08/14/25 at 09:00; Stop 09/13/25 at 08:59 Insulin Glargine 10 units HS SQ Last administered on 08/13/25at 20:21; Start 08/13/25 at 21:00; Stop 08/14/25 at 06:16; Status DC Dextrose 50 ml AD PRN IV; Start 08/13/25 at 20:00; Stop 08/20/25 at 22:03; Status DC Glucagon 1 mg AD PRN IM; Start 08/13/25 at 20:00; Stop 08/21/25 at 10:49; Status DC Sodium Bicarbonate 25 meq/Dextrose 1,000 ml @ 0 mls/hr Q0M IVP; Start 08/14/25 at 00:30; Stop 08/14/25 at 00:15; Status DC Sodium Bicarbonate 25 meq/Dextrose 1,000 ml @ 0 mls/hr Q0M IV Last administered on 08/20/25at 23:15; Start 08/14/25 at 00:30; Stop 09/13/25 at 00:29 Glycerin 1 supp ONCE ONCE RC Last administered on 08/14/25at 05:56; Start 08/14/25 at 05:00; Stop 08/14/25 at 05:06; Status DC Insulin Glargine 20 units DAILY SQ Last administered on 08/14/25at 08:01; Start 08/14/25 at 09:00; Stop 08/15/25 at 07:24; Status DC Ticagrelor 90 mg BID PO Last administered on 08/14/25at 20:09; Start 08/14/25 at 09:00; Stop 08/14/25 at 21:19; Status DC Morphine Sulfate 2 mg Q6H PRN IVP Last administered on 08/19/25at 12:22; Start 08/14/25 at 09:30; Stop 08/19/25 at 12:29; Status DC Polyethylene Glycol 17 gm DAILY PO Last administered on 08/24/25at 09:35; Start 08/15/25 at 09:00; Stop 09/14/25 at 08:59 Docusate Sodium 100 mg BID PRN PO; Start 08/14/25 at 11:00; Stop 09/13/25 at 10:59 Ceftriaxone Sodium 2 gm Q24H IVPB Last administered on 08/23/25at 12:16; Start 08/14/25 at 11:30; Stop 08/24/25 at 11:29; Status DC Insulin Human Regular 5 unit TIDAC SQ Last administered on 08/15/25at 07:03; Start 08/14/25 at 17:00; Stop 08/15/25 at 07:24; Status DC Chlordiazepoxide HCl 25 mg Q2H PRN PO Last administered on 08/16/25at 23:38; Start 08/14/25 at 14:30; Stop 08/20/25 at 16:32; Status DC Chlordiazepoxide HCl 50 mg Q1H PRN PO; Start 08/14/25 at 14:30; Stop 08/20/25 at 16:32; Status DC Ondansetron HCl 4 mg Q4H PRN IV Last administered on 08/14/25at 14:17; Start 08/14/25 at 14:30; Stop 08/20/25 at 16:32; Status DC Promethazine HCl 25 mg Q6H PRN PO; Start 08/14/25 at 14:30; Stop 08/20/25 at 16:32; Status DC Acetaminophen 500 mg Q6H PRN PO Last administered on 08/20/25at 08:23; Start 08/14/25 at 14:30; Stop 09/13/25 at 14:29 Thiamine HCl 300 mg DAILY IV Last administered on 08/17/25at 07:46; Start 08/15/25 at 09:00; Stop 08/17/25 at 09:01; Status DC Folic Acid 1 mg DAILY PO Last administered on 08/17/25at 07:46; Start 08/15/25 at 09:00; Stop 08/17/25 at 09:01; Status DC Multivitamins Therapeutic 1 tab DAILY PO Last administered on 08/24/25at 09:32; Start 08/15/25 at 09:00; Stop 09/14/25 at 08:59 Pharmacy Profile Note 1 each PROTOCOL PRN MISC; Start 08/14/25 at 14:30; Stop 08/14/25 at 14:08; Status DC Insulin Glargine 30 units DAILY SQ Last administered on 08/15/25at 08:28; Start 08/15/25 at 09:00; Stop 08/16/25 at 07:19; Status DC Insulin Human Regular 8 unit TIDAC SQ Last administered on 08/15/25at 16:02; Start 08/15/25 at 07:30; Stop 08/15/25 at 22:46; Status DC Diphenhydramine HCl 25 mg ONCE ONCE IM; Start 08/15/25 at 21:00; Stop 08/15/25 at 22:52; Status DC Insulin Human Regular 10 unit TIDAC SQ Last administered on 08/17/25at 16:09; Start 08/16/25 at 07:30; Stop 08/17/25 at 21:12; Status DC Diphenhydramine HCl 25 mg ONCE PRN IV; Start 08/15/25 at 23:00; Stop 08/17/25 at 22:59; Status DC Insulin Glargine 35 units DAILY SQ Last administered on 08/18/25at 07:59; Start 08/16/25 at 09:00; Stop 08/19/25 at 07:35; Status DC Bisacodyl 10 mg DAILY RC Last administered on 08/18/25at 07:58; Start 08/17/25 at 09:00; Stop 08/20/25 at 08:59; Status DC Insulin Human Lispro INSULIN SLIDING SCAL... ACHS SQ; Start 08/16/25 at 21:00; Stop 08/17/25 at 09:31; Status DC Insulin Glargine 5 units BID@0730,2100 SQ Last administered on 08/16/25at 21:21; Start 08/16/25 at 21:00; Stop 08/17/25 at 09:31; Status DC Pantoprazole Sodium 40 mg Q12H IVP Last administered on 08/20/25at 03:53; Start 08/17/25 at 16:30; Stop 08/20/25 at 16:32; Status DC Insulin Human Regular INSULIN SLIDING SCAL... ACHS SQ Last administered on 08/19/25at 21:31; Start 08/17/25 at 16:30; Stop 08/20/25 at 16:32; Status DC Insulin Human Regular 12 unit TIDAC SQ Last administered on 08/18/25at 16:39; Start 08/18/25 at 07:30; Stop 08/18/25 at 20:19; Status DC Vancomycin HCl 1 each AD IV; Start 08/17/25 at 22:00; Stop 08/31/25 at 21:59 Vancomycin HCl 250 ml @ 83.333 mls/ hr ONCE ONCE IV Last administered on 08/17/25at 23:05; Start 08/17/25 at 22:30; Stop 08/18/25 at 01:29; Status DC Vancomycin HCl 250 ml @ 125 mls/hr Q12H IV Last administered on 08/19/25at 09:39; Start 08/18/25 at 09:00; Stop 08/19/25 at 20:54; Status DC Albumin Human 50 ml @ 0 mls/hr BID IV Last administered on 08/22/25at 20:56; Start 08/18/25 at 09:00; Stop 08/23/25 at 08:59; Status DC Lidocaine 1 each DAILY TP Last administered on 08/24/25at 09:32; Start 08/19/25 at 09:00; Stop 09/18/25 at 08:59 Lidocaine 1 each ONCE ONCE TP Last administered on 08/18/25at 13:52; Start 08/18/25 at 14:00; Stop 08/18/25 at 14:01; Status DC Diphenhydramine HCl 25 mg ONCE ONCE PO Last administered on 08/18/25at 15:19; Start 08/18/25 at 15:30; Stop 08/18/25 at 15:31; Status DC Insulin Human Regular 16 unit TIDAC SQ Last administered on 08/19/25at 16:47; Start 08/19/25 at 07:30; Stop 08/20/25 at 06:22; Status DC Insulin Glargine 42 units DAILY SQ Last administered on 08/19/25at 09:40; Start 08/19/25 at 09:00; Stop 08/20/25 at 06:22; Status DC Calcium Carbonate 500 tab QID PRN PO Last administered on 08/20/25at 05:10; Start 08/19/25 at 12:00; Stop 08/20/25 at 16:32; Status DC Morphine Sulfate 2 mg Q6H PRN IVP Last administered on 08/19/25at 17:50; Start 08/19/25 at 18:00; Stop 08/20/25 at 16:32; Status DC Cefazolin Sodium 2 gm ONCALL IVP Last administered on 08/20/25at 16:30; Start 08/19/25 at 19:30; Stop 08/21/25 at 08:36; Status DC Vancomycin HCl 250 ml @ 125 mls/hr Q8H IV Last administered on 08/20/25at 22:26; Start 08/19/25 at 21:30; Stop 08/21/25 at 00:23; Status DC Sodium Chloride 500 ml @ 500 mls/hr Q1H IV Last administered on 08/20/25at 00:53; Start 08/20/25 at 00:33; Stop 08/20/25 at 03:16; Status DC Nitroglycerin/ Dextrose 250 ml @ 0 mls/hr PROTOCOL IV Last administered on 08/20/25at 03:12; Start 08/20/25 at 03:30; Stop 08/20/25 at 16:32; Status DC Insulin Glargine 45 units DAILY SQ; Start 08/20/25 at 09:00; Stop 08/20/25 at 16:32; Status DC Insulin Human Regular 17 unit TIDAC SQ; Start 08/20/25 at 07:30; Stop 08/20/25 at 16:32; Status DC Epinephrine HCl 10 mg/Sodium Chloride 250 ml @ 0 mls/hr AD PRN IV Last administered on 08/22/25at 04:22; Start 08/20/25 at 08:00; Stop 09/19/25 at 07:59 Norepinephrine Bitartrate 250 ml @ 0 mls/hr AD PRN IV Last administered on 08/21/25at 06:40; Start 08/20/25 at 08:00; Stop 09/19/25 at 07:59 Aminocaproic Acid 88264 mg/Sodium Chloride 480 ml @ 0 mls/hr AD PRN IV; Start 08/20/25 at 08:00; Stop 09/19/25 at 07:59 Cefazolin Sodium 1 gm STK-MED ONCE .ROUTE; Start 08/20/25 at 08:23; Stop 08/20/25 at 08:23; Status DC Heparin Sodium/ Sodium Chloride 500 ml @ As Directed STK-MED ONCE IV; Start 08/20/25 at 08:23; Stop 08/20/25 at 08:24; Status DC Papaverine HCl 60 mg STK-MED ONCE .ROUTE Last administered on 08/20/25at 17:05; Start 08/20/25 at 08:23; Stop 08/20/25 at 08:24; Status DC Epinephrine HCl 10 mg/Sodium Chloride 250 ml @ 0 mls/hr AD PRN IV; Start 08/20/25 at 09:00; Stop 08/20/25 at 09:03; Status DC Norepinephrine Bitartrate 250 ml @ 0 mls/hr AD PRN IV; Start 08/20/25 at 09:00; Stop 08/20/25 at 09:03; Status DC Aminocaproic Acid 45282 mg/Sodium Chloride 480 ml @ 0 mls/hr AD PRN IV; Start 08/20/25 at 09:00; Stop 08/20/25 at 09:03; Status DC Protamine Sulfate 250 mg STK-MED ONCE IV; Start 08/20/25 at 15:44; Stop 08/20/25 at 15:44; Status DC Lidocaine HCl 100 mg STK-MED ONCE .ROUTE; Start 08/20/25 at 15:44; Stop 08/20/25 at 15:44; Status DC Heparin Sodium (Porcine) 10,000 unit STK-MED ONCE .ROUTE; Start 08/20/25 at 15:44; Stop 08/20/25 at 15:44; Status DC Epinephrine HCl 1 mg STK-MED ONCE .ROUTE; Start 08/20/25 at 15:44; Stop 08/20/25 at 15:44; Status DC Sodium Bicarbonate 200 ml @ As Directed STK-MED ONCE .ROUTE; Start 08/20/25 at 15:44; Stop 08/20/25 at 15:44; Status DC Norepinephrine Bitartrate 4 mg STK-MED ONCE IV; Start 08/20/25 at 15:44; Stop 08/20/25 at 15:44; Status DC Propofol 200 mg STK-MED ONCE IV; Start 08/20/25 at 15:45; Stop 08/20/25 at 15:44; Status DC Fentanyl Citrate 1,000 mcg STK-MED ONCE IJ; Start 08/20/25 at 15:45; Stop 08/20/25 at 15:45; Status DC Midazolam HCl 2 mg STK-MED ONCE .ROUTE; Start 08/20/25 at 15:45; Stop 08/20/25 at 15:45; Status DC Rocuronium [place] 50 mg STK-MED ONCE .ROUTE; Start 08/20/25 at 15:45; Stop 08/20/25 at 15:45; Status DC Sodium Bicarbonate 400 ml @ As Directed STK-MED ONCE .ROUTE; Start 08/20/25 at 15:46; Stop 08/20/25 at 15:46; Status DC Cefazolin Sodium 1 gm STK-MED ONCE .ROUTE Last administered on 08/20/25at 17:05; Start 08/20/25 at 16:19; Stop 08/20/25 at 16:19; Status DC Vancomycin HCl 250 ml @ As Directed STK-MED ONCE IV Last administered on 08/20/25at 16:40; Start 08/20/25 at 16:40; Stop 08/20/25 at 16:40; Status DC Sodium Chloride 1,000 ml @ 10 mls/hr ONCE IV Last administered on 08/20/25at 22:31; Start 08/20/25 at 17:00; Stop 08/21/25 at 16:59; Status DC Sodium Chloride 10 ml Q8H PRN IVP; Start 08/20/25 at 17:00; Stop 09/19/25 at 16:59 Morphine Sulfate 0.5 mg Q2H PRN IV; Start 08/20/25 at 17:00; Stop 08/20/25 at 18:07; Status DC Morphine Sulfate 1 mg Q2H PRN IV; Start 08/20/25 at 17:00; Stop 08/21/25 at 16:59; Status DC Acetaminophen 650 mg Q4H PRN RC; Start 08/20/25 at 17:00; Stop 09/19/25 at 16:59 Ondansetron HCl 4 mg Q6H PRN IV; Start 08/20/25 at 17:00; Stop 09/19/25 at 16:59 Sodium Chloride 500 ml @ 0 mls/hr AD IV; Start 08/20/25 at 17:00; Stop 09/19/25 at 16:59 Nitroglycerin/ Dextrose 0 ml @ 0 mls/hr AD IV; Start 08/20/25 at 17:00; Stop 08/23/25 at 16:59; Status DC Propofol 100 ml @ 0 mls/hr AD PRN IV; Start 08/20/25 at 17:00; Stop 08/24/25 at 17:00; Status DC Norepinephrine Bitartrate 8 mg/ Dextrose 250 ml @ 0 mls/hr AD PRN IV; Start 08/20/25 at 17:00; Stop 08/21/25 at 10:49; Status DC Epinephrine HCl 10 mg/Sodium Chloride 250 ml @ 14.091 mls/ hr AD PRN IV; Start 08/20/25 at 17:00; Stop 08/21/25 at 10:49; Status DC Aminocaproic Acid 26859 mg/Sodium Chloride 310 ml @ 25 mls/hr AD IV; Start 08/20/25 at 17:00; Stop 08/21/25 at 05:23; Status DC Calcium Gluconate 1 gm/Sodium Chloride 60 ml @ 200 mls/hr AD PRN IV Last administered on 08/24/25at 05:01; Start 08/20/25 at 17:00; Stop 09/19/25 at 16:59 Magnesium Sulfate 50 ml @ 12.5 mls/hr AD PRN IV Last administered on 08/24/25at 05:02; Start 08/20/25 at 17:00; Stop 09/19/25 at 16:59 Potassium Chloride 100 ml @ 100 mls/hr AD PRN IV Last administered on 08/24/25at 17:36; Start 08/20/25 at 17:00; Stop 09/19/25 at 16:59 Potassium Phosphate 250 ml @ 42 mls/hr AD PRN IV; Start 08/20/25 at 17:00; Stop 09/19/25 at 16:59 Albumin Human 250 ml @ 0 mls/hr AD PRN IV Last administered on 08/20/25at 22:46; Start 08/20/25 at 17:00; Stop 08/20/25 at 22:46; Status DC Acetaminophen 650 mg Q4H PRN PO; Start 08/20/25 at 17:00; Stop 09/19/25 at 16:59 Insulin Human Regular 100 unit/ Sodium Chloride 100 ml @ 0 mls/hr AD IV Last administered on 08/21/25at 15:00; Start 08/20/25 at 17:00; Stop 08/22/25 at 16:59; Status DC Cefazolin Sodium 2 gm Q8H IVPB Last administered on 08/21/25at 13:45; Start 08/20/25 at 22:00; Stop 08/21/25 at 14:01; Status DC Tramadol HCl 25 mg Q6H PRN PO; Start 08/20/25 at 17:00; Stop 08/25/25 at 16:59 Tramadol HCl 50 mg Q6H PRN PO Last administered on 08/24/25at 18:11; Start 08/20/25 at 17:00; Stop 08/25/25 at 16:59 Famotidine 20 mg BID IV Last administered on 08/21/25at 20:17; Start 08/20/25 at 21:00; Stop 08/22/25 at 08:20; Status DC Sodium Bicarbonate 50 meq AD PRN IV Last administered on 08/21/25at 01:19; Start 08/20/25 at 17:00; Stop 08/23/25 at 16:59; Status DC Dextrose 50 ml AD PRN IV; Start 08/20/25 at 17:00; Stop 09/19/25 at 16:59 Glucagon 1 mg AD PRN IM; Start 08/20/25 at 17:00; Stop 09/19/25 at 16:59 Amiodarone HCL/ Dextrose 100 ml @ As Directed STK-MED ONCE .ROUTE; Start 08/20/25 at 16:52; Stop 08/20/25 at 16:52; Status DC Lidocaine HCl 100 mg STK-MED ONCE .ROUTE; Start 08/20/25 at 17:34; Stop 08/20/25 at 17:34; Status DC Morphine Sulfate 0.5 mg Q2H PRN IV; Start 08/20/25 at 18:30; Stop 08/21/25 at 16:59; Status DC Heparin Sodium (Porcine) 10,000 unit STK-MED ONCE .ROUTE; Start 08/20/25 at 18:12; Stop 08/20/25 at 18:12; Status DC Insulin Human Regular 300 unit STK-MED ONCE .ROUTE; Start 08/20/25 at 19:39; Stop 08/20/25 at 19:39; Status DC Dexmedetomidine/ Sodium Chloride 400 mcg PROTOCOL IV Last administered on 08/22/25at 00:35; Start 08/20/25 at 20:30; Stop 09/19/25 at 20:29 Magnesium Sulfate 8.12 meq STK-MED ONCE IJ; Start 08/20/25 at 20:17; Stop 08/20/25 at 20:17; Status DC Vasopressin 20 units STK-MED ONCE .ROUTE; Start 08/20/25 at 20:17; Stop 08/20/25 at 20:17; Status DC Amiodarone HCl 360 mg/Dextrose 207.2 ml @ 33.3 mls/hr AD IV; Start 08/20/25 at 21:00; Stop 08/20/25 at 21:05; Status DC Amiodarone HCl 540 mg/Dextrose 310.8 ml @ 16.7 mls/hr [id number] IV Last administered on 08/21/25at 20:12; Start 08/21/25 at 03:00; Stop 09/20/25 at 02:59 Amiodarone HCL/ Dextrose 207.2 ml @ 33.3 mls/hr AD IV Last administered on 08/20/25at 21:24; Start 08/20/25 at 21:30; Stop 08/21/25 at 10:49; Status DC Albumin Human 250 ml @ 0 mls/hr ONCE ONCE IV Last administered on 08/20/25at 00:00; Start 08/20/25 at 00:00; Stop 08/20/25 at 23:58; Status DC Lidocaine HCl/ Dextrose 250 ml @ 0 mls/hr PROTOCOL IV; Start 08/21/25 at 00:00; Stop 09/20/25 at 00:00 Albumin Human 250 ml @ As Directed STK-MED ONCE IV; Start 08/21/25 at 00:03; Stop 08/21/25 at 00:05; Status DC Vancomycin HCl 250 ml @ 125 mls/hr Q8H IV; Start 08/21/25 at 08:00; Stop 08/21/25 at 06:28; Status DC Vancomycin HCl 250 ml @ 125 mls/hr Q8H IV Last administered on 08/21/25at 08:15; Start 08/21/25 at 06:30; Stop 08/21/25 at 08:35; Status DC Vancomycin HCl 250 ml @ 125 mls/hr Q8H IV Last administered on 08/24/25at 09:32; Start 08/21/25 at 16:30; Stop 08/24/25 at 16:54; Status DC Furosemide 20 mg Q12H IV Last administered on 08/22/25at 11:53; Start 08/21/25 at 11:30; Stop 08/22/25 at 14:17; Status DC Acetaminophen 1,000 mg Q6H6 IVPB Last administered on 08/24/25at 17:35; Start 08/21/25 at 12:00; Stop 09/20/25 at 11:59 Heparin Sodium/ Dextrose 250 ml @ 0 mls/hr PROTOCOL IV Last administered on 08/23/25at 14:36; Start 08/21/25 at 11:30; Stop 09/20/25 at 11:29 Iron Sucrose 200 mg DAILY IV Last administered on 08/22/25at 11:53; Start 08/21/25 at 13:00; Stop 08/23/25 at 09:43; Status DC Amiodarone HCl 200 mg BID PO Last administered on 08/24/25at 09:33; Start 08/22/25 at 09:00; Stop 08/29/25 at 21:00 Famotidine 20 mg BID PO Last administered on 08/24/25at 09:33; Start 08/22/25 at 09:00; Stop 09/21/25 at 08:59 Insulin Human Regular INSULIN SLIDING SCAL... ACHS SQ Last administered on 08/22/25at 20:58; Start 08/22/25 at 11:30; Stop 08/22/25 at 21:32; Status DC Furosemide 40 mg Q12H IV; Start 08/22/25 at 21:00; Stop 08/22/25 at 14:32; Status DC Furosemide 20 mg Q12H IV Last administered on 08/23/25at 09:50; Start 08/22/25 at 21:00; Stop 08/23/25 at 11:37; Status DC Insulin Human Regular INSULIN SLIDING SCAL... ACHS SQ Last administered on 08/24/25at 11:56; Start 08/23/25 at 07:30; Stop 09/22/25 at 07:29 Insulin Glargine 15 units DAILY SQ Last administered on 08/24/25at 09:34; Start 08/23/25 at 09:00; Stop 09/22/25 at 08:59 Iron Sucrose 200 mg DAILY IV Last administered on 08/24/25at 09:32; Start 08/23/25 at 09:00; Stop 09/22/25 at 08:59 Furosemide 40 mg Q12H IV Last administered on 08/24/25at 11:56; Start 08/23/25 at 11:30; Stop 09/22/25 at 11:29 Gabapentin 300 mg TID PO Last administered on 08/24/25at 13:29; Start 08/23/25 at 14:00; Stop 09/22/25 at 13:59 Vancomycin HCl 250 ml @ 125 mls/hr Q12H IV; Start 08/24/25 at 23:00; Stop 09/03/25 at 22:59 CAROLYN BYRNE MD Aug 24, 2025 19:41
[2025-08-24] MEDS: VANCOMYCIN 1.25 GM/250 ML BAG 250 ML IV SCH (22:45)
--- NOTE | 2025-08-24 23:43 | HMCIMG ---
EXAM: CR Chest, 1 view CLINICAL HISTORY: Impella. COMPARISON: Chest radiograph dated 08/23/2025, 22:54 FINDINGS: The right transjugular Troy-Guillaume catheter tip overlies the main pulmonary artery. Status poststernotomy. Stable cardiomegaly with stable vascular congestion. Bilateral small to moderate pleural effusions with overlying atelectasis, which are increased when compared with the prior exam. No pneumothorax. No acute osseous abnormality. IMPRESSION: 1. Stable cardiomegaly with increased vascular congestion and bilateral small to moderate pleural effusions with overlying atelectasis. /[place]
[2025-08-25] VITALS (72 sets, daily range): BP systolic 79–130; BP diastolic 32–105; PULSE 39–84; RESP 10–63; TEMP 97.4–98.4; O2SAT 97–98
[2025-08-25 02:00] LABS: ABG BASE EXCESS 1.7 mmol/L (-2.0-3.0); ABG HCO3 25.1 mmol/L (21.0-28.0); ABG OXYGEN SATURATION 92.0 % (94.0-98.0); ABG PCO2 34 mmHg (32-45); ABG PH 7.482 (7.350-7.450); CARBON MONOXIDE 0.4 % (0.5-1.5); DEVICE COMMENT ALINE RN TED; PO2, ARTERIAL BG 63.0 mmHg (83.0-108.0); TEMPERATURE, CELSIUS BG 37.0 CELSIUS (35.5-37.0); VENT MODE, BG NC (ROOM AIR)
--- NOTE | 2025-08-25 02:00 | PN ---
SUBJECTIVE: Status post CABG with placement of CP preoperatively. The patient underwent surgery and she is course on postoperative day 3. OBJECTIVE: GENERAL: She is awake, alert, and in no acute distress. VITAL SIGNS: Stable as recorded in the medical record. CHEST: Sternum stable. Incision sealed. LUNGS: Clear. The patient has some crackles and rales. EXTREMITIES: Warm and well perfused. Pulses present distal to the Impella CP. ASSESSMENT AND PLAN: * The patient continues to be diuresed. * Cardiogenic shock. Impella still at P5, will decrease to P4, the support. * Pulmonary edema, improving slowly as corroborated by chest x-ray. * Continue diuresis. * Coronary artery disease. Continue aspirin 81 mg. Metoprolol started once we weaned her from the Impella. Wean Impella as tolerated. Continue diuresis. TID: [id number] RECEIPT: [id number]
[2025-08-25 02:35] LABS: INR 1.11 (0.85-1.15)
[2025-08-25 02:38] LABS: ASPARTATE AMINOTRANSFERASE 54.0 U/L (10-37); CREATININE 0.6 mg/dL (0.5-1.0); GLOMERULAR FILTR. RATE CALC 104.0 mL/min (>90); GLUCOSE,RANDOM 141.0 mg/dL (70-105); SODIUM SERUM 142.0 mmol/L (136-145); TOTAL PROTEIN, SERUM 5.2 g/dL (6.0-8.3); UREA NITROGEN, BLOOD 17.0 mg/dL (7-18)
[2025-08-25 02:53] LABS: IMMATURE GRANULOCYTE ABSOLUTE 0.21 K/uL (0-1); NUCLEATED RED BLOOD CELLS 0.6 % (0.0-0.19); PLATELET COUNT (AUTO) 98 K/uL (130-400); RED BLOOD CELL COUNT(AUTO) 2.77 MIL/uL (4.00-5.50); RED CELL DISTRIBUTION WIDTH 18.4 % (11.0-15.5); WHITE BLOOD COUNT (AUTO) 9.7 K/uL (4.8-10.8)
--- NOTE | 2025-08-25 07:19 | PN ---
This is a 60-year-old female with underlying history of obesity, coronary artery disease, poorly controlled type 2 diabetes mellitus, history of anemia, history of cocaine use, tobacco use disorder, history of CVA in 2008, who presented to the ER with severe substernal chest pain and shortness of breath. She is admitted for further evaluation and management of NSTEMI , Cardiogenic shock. She underwent left heart catheterization and was placed on Impella on 08.13.25. We are consulted for thrombocytopenia .Her platelets were 2,09,000 at the time of admission and today its 1,17,000 .Peripheral smear negative for HIT . Status post CABG procedure. Patient is waking up. Patient actually on heparin drip. no obvious bleeding Hemoglobin level 8.6 g/deciliter. Platelet count 98K. PHYSICAL EXAM EYES: Anicteric. Pupils equal and reactive. HENT: No oral thrush seen, moist Oral mucosa NECK: Supple, no JVD or thyromegaly. LUNGS: Good air entry. No rales, no rhonchi. CARDIOVASCULAR: S1, S2 regular. No murmur heard. ABDOMEN: Soft, non tender, bowel sounds present, no organomegaly CENTRAL NERVOUS SYSTEM: Awake, alert, oriented x 3. No focal deficits. SKIN: No rashes, no swelling. LYMPHATICS: No peripheral lymphadenopathy MUSCULOSKELETAL: No joint swelling, erythema or tenderness. EXTREMITIES: No cyanosis or clubbing BACK: No deformity, no pressure ulcer. GENITOURINARY: No dysuria or hematuria ASSESSMENT: 1. Thrombocytopenia. Platelet count stable at 98K. 2. Anemia. Hemoglobin level 8.6 g/deciliter 3. NSTEMI, POA 4. Cardiogenic shock SCAI stage D Status post bypass procedure 5. Complete heart block, status post transvenous temporary pacemaker placement POA 6. CAD, with multivessel disease, POA 7. DM type 2, with hyperglycemia, poorly controlled, HGB A1c of 10.7 POA PLAN: 1.Peripheral blood smear showed microcytic RBCs. Patient was found to have iron deficiency anemia. Continue IV iron 200 mg daily for 3 days. This patient will need oral iron every other day for 6 months 2. There is no need for Procrit to be done at this time 3. Patient to be transfused as per cardiothoracic surgery 4. This patient is not suspicious for any heparin-induced thrombocytopenia. Patient to be continued on heparin drip as scheduled. 5. Continue care as per cardiothoracic surgeon Vitals/Labs Vital Signs Date Time Temp Pulse Resp B/P (MAP) Pulse Ox O2 Delivery O2 Flow Rate FiO2 08/25/25 05:15 80 12 97 104/68 (80) 08/25/25 05:00 32 08/25/25 04:00 97.9 08/25/25 04:00 Nasal Cannula* 3 Laboratory Tests 08/24/25 15:13 08/25/25 02:05 08/25/25 02:37 Medications Current Medications Ondansetron HCl 4 mg ONCE ONCE IVP; Start 08/13/25 at 14:30; Stop 08/13/25 at 14:52; Status DC Sodium Chloride 500 ml @ 0 mls/hr ONCE ONCE IV Last administered on 08/13/25at 15:00; Start 08/13/25 at 14:30; Stop 08/13/25 at 14:31; Status DC Heparin Sodium (Porcine) *calculation based on ACTUAL B... AD PRN IV Last administered on 08/17/25at 04:46; Start 08/13/25 at 16:30; Stop 08/20/25 at 16:32; Status DC Heparin Sodium/ Dextrose 250 ml @ 0 mls/hr Q6H IV Last administered on 08/19/25at 22:03; Start 08/13/25 at 16:30; Stop 08/20/25 at 16:32; Status DC Norepinephrine 250 ml @ 0 mls/hr PROTOCOL IV; Start 08/13/25 at 15:30; Stop 08/20/25 at 08:31; Status DC Dopamine HCl/ Dextrose 250 ml @ As Directed STK-MED ONCE IV; Start 08/13/25 at 15:33; Stop 08/13/25 at 15:33; Status DC Aspirin 325 mg STK-MED ONCE .ROUTE; Start 08/13/25 at 15:34; Stop 08/13/25 at 15:33; Status DC Ticagrelor 180 mg ONCE ONCE PO Last administered on 08/13/25at 16:16; Start 08/13/25 at 16:00; Stop 08/13/25 at 16:01; Status DC Morphine Sulfate 1 mg ONCE ONCE IVP Last administered on 08/13/25at 16:23; Start 08/13/25 at 16:00; Stop 08/13/25 at 16:01; Status DC Ticagrelor 90 mg STK-MED ONCE .ROUTE; Start 08/13/25 at 15:50; Stop 08/13/25 at 15:50; Status DC Dopamine HCl/ Dextrose 250 ml @ 0 mls/hr PROTOCOL IV Last administered on 08/16/25at 16:41; Start 08/13/25 at 16:00; Stop 09/12/25 at 15:59 Aspirin 325 mg ONCE ONCE PO Last administered on 08/13/25at 16:15; Start 08/13/25 at 16:00; Stop 08/13/25 at 16:01; Status DC Lidocaine HCl 20 ml STK-MED ONCE .ROUTE; Start 08/13/25 at 16:12; Stop 08/13/25 at 16:12; Status DC Iohexol 35,000 mg STK-MED ONCE IV; Start 08/13/25 at 16:12; Stop 08/13/25 at 16:12; Status DC Heparin Sodium (Porcine) 10,000 unit STK-MED ONCE .ROUTE; Start 08/13/25 at 16:12; Stop 08/13/25 at 16:12; Status DC Nicardipine HCl 25 mg STK-MED ONCE IV; Start 08/13/25 at 16:12; Stop 08/13/25 at 16:12; Status DC Heparin Sodium/ Sodium Chloride 1,000 ml @ As Directed STK-MED ONCE IV; Start 08/13/25 at 16:12; Stop 08/13/25 at 16:12; Status DC Nitroglycerin 50 mg STK-MED ONCE .ROUTE; Start 08/13/25 at 16:12; Stop 08/13/25 at 16:12; Status DC Pantoprazole Sodium 40 mg Q24H IVP Last administered on 08/16/25at 16:07; Start 08/13/25 at 16:30; Stop 08/17/25 at 11:10; Status DC Insulin Human Regular INSULIN SLIDING SCAL... ACHS SQ Last administered on 08/16/25at 20:01; Start 08/13/25 at 16:30; Stop 08/16/25 at 20:46; Status DC Insulin Human Regular 5 unit ONCE ONCE IV; Start 08/13/25 at 16:30; Stop 08/13/25 at 16:31; Status DC Fentanyl Citrate 100 mcg STK-MED ONCE .ROUTE; Start 08/13/25 at 16:26; Stop 08/13/25 at 16:26; Status DC Midazolam HCl 2 mg STK-MED ONCE .ROUTE; Start 08/13/25 at 16:27; Stop 08/13/25 at 16:27; Status DC Acetaminophen 650 mg Q6H PRN PO Last administered on 08/23/25at 11:01; Start 08/13/25 at 16:30; Stop 09/12/25 at 16:29 Ondansetron HCl 4 mg Q6H PRN IVP; Start 08/13/25 at 16:30; Stop 08/14/25 at 14:08; Status DC Potassium Chloride 100 ml @ 100 mls/hr AD PRN IV Last administered on 08/16/25at 16:07; Start 08/13/25 at 16:30; Stop 08/20/25 at 16:32; Status DC Potassium Chloride 20 meq AD PRN PO; Start 08/13/25 at 16:30; Stop 08/20/25 at 16:32; Status DC Potassium Chloride 20 meq AD PRN PO Last administered on 08/15/25at 08:23; Start 08/13/25 at 16:30; Stop 08/20/25 at 16:32; Status DC Magnesium Sulfate 50 ml @ 0 mls/hr PROTOCOL IV Last administered on 08/21/25at 05:58; Start 08/13/25 at 16:30; Stop 08/21/25 at 10:49; Status DC Atorvastatin Calcium 40 mg HS PO Last administered on 08/24/25at 20:00; Start 08/13/25 at 21:00; Stop 09/12/25 at 20:59 Heparin Sodium/ Sodium Chloride 500 ml @ As Directed STK-MED ONCE IV; Start 08/13/25 at 17:14; Stop 08/13/25 at 17:14; Status DC Heparin Sodium (Porcine) 10,000 unit STK-MED ONCE .ROUTE; Start 08/13/25 at 18:03; Stop 08/13/25 at 18:03; Status DC Aspirin 81 mg DAILY PO Last administered on 08/24/25at 09:33; Start 08/14/25 at 09:00; Stop 09/13/25 at 08:59 Insulin Glargine 10 units HS SQ Last administered on 08/13/25at 20:21; Start 08/13/25 at 21:00; Stop 08/14/25 at 06:16; Status DC Dextrose 50 ml AD PRN IV; Start 08/13/25 at 20:00; Stop 08/20/25 at 22:03; Status DC Glucagon 1 mg AD PRN IM; Start 08/13/25 at 20:00; Stop 08/21/25 at 10:49; Status DC Sodium Bicarbonate 25 meq/Dextrose 1,000 ml @ 0 mls/hr Q0M IVP; Start 08/14/25 at 00:30; Stop 08/14/25 at 00:15; Status DC Sodium Bicarbonate 25 meq/Dextrose 1,000 ml @ 0 mls/hr Q0M IV Last administered on 08/20/25at 23:15; Start 08/14/25 at 00:30; Stop 09/13/25 at 00:29 Glycerin 1 supp ONCE ONCE RC Last administered on 08/14/25at 05:56; Start 08/14/25 at 05:00; Stop 08/14/25 at 05:06; Status DC Insulin Glargine 20 units DAILY SQ Last administered on 08/14/25at 08:01; Start 08/14/25 at 09:00; Stop 08/15/25 at 07:24; Status DC Ticagrelor 90 mg BID PO Last administered on 08/14/25at 20:09; Start 08/14/25 at 09:00; Stop 08/14/25 at 21:19; Status DC Morphine Sulfate 2 mg Q6H PRN IVP Last administered on 08/19/25at 12:22; Start 08/14/25 at 09:30; Stop 08/19/25 at 12:29; Status DC Polyethylene Glycol 17 gm DAILY PO Last administered on 08/24/25at 09:35; Start 08/15/25 at 09:00; Stop 09/14/25 at 08:59 Docusate Sodium 100 mg BID PRN PO; Start 08/14/25 at 11:00; Stop 09/13/25 at 10:59 Ceftriaxone Sodium 2 gm Q24H IVPB Last administered on 08/23/25at 12:16; Start 08/14/25 at 11:30; Stop 08/24/25 at 11:29; Status DC Insulin Human Regular 5 unit TIDAC SQ Last administered on 08/15/25at 07:03; Start 08/14/25 at 17:00; Stop 08/15/25 at 07:24; Status DC Chlordiazepoxide HCl 25 mg Q2H PRN PO Last administered on 08/16/25at 23:38; Start 08/14/25 at 14:30; Stop 08/20/25 at 16:32; Status DC Chlordiazepoxide HCl 50 mg Q1H PRN PO; Start 08/14/25 at 14:30; Stop 08/20/25 at 16:32; Status DC Ondansetron HCl 4 mg Q4H PRN IV Last administered on 08/14/25at 14:17; Start 08/14/25 at 14:30; Stop 08/20/25 at 16:32; Status DC Promethazine HCl 25 mg Q6H PRN PO; Start 08/14/25 at 14:30; Stop 08/20/25 at 16:32; Status DC Acetaminophen 500 mg Q6H PRN PO Last administered on 08/20/25at 08:23; Start 08/14/25 at 14:30; Stop 09/13/25 at 14:29 Thiamine HCl 300 mg DAILY IV Last administered on 08/17/25at 07:46; Start 08/15/25 at 09:00; Stop 08/17/25 at 09:01; Status DC Folic Acid 1 mg DAILY PO Last administered on 08/17/25at 07:46; Start 08/15/25 at 09:00; Stop 08/17/25 at 09:01; Status DC Multivitamins Therapeutic 1 tab DAILY PO Last administered on 08/24/25at 09:32; Start 08/15/25 at 09:00; Stop 09/14/25 at 08:59 Pharmacy Profile Note 1 each PROTOCOL PRN MISC; Start 08/14/25 at 14:30; Stop 08/14/25 at 14:08; Status DC Insulin Glargine 30 units DAILY SQ Last administered on 08/15/25at 08:28; Start 08/15/25 at 09:00; Stop 08/16/25 at 07:19; Status DC Insulin Human Regular 8 unit TIDAC SQ Last administered on 08/15/25at 16:02; Start 08/15/25 at 07:30; Stop 08/15/25 at 22:46; Status DC Diphenhydramine HCl 25 mg ONCE ONCE IM; Start 08/15/25 at 21:00; Stop 08/15/25 at 22:52; Status DC Insulin Human Regular 10 unit TIDAC SQ Last administered on 08/17/25at 16:09; Start 08/16/25 at 07:30; Stop 08/17/25 at 21:12; Status DC Diphenhydramine HCl 25 mg ONCE PRN IV; Start 08/15/25 at 23:00; Stop 08/17/25 at 22:59; Status DC Insulin Glargine 35 units DAILY SQ Last administered on 08/18/25at 07:59; Start 08/16/25 at 09:00; Stop 08/19/25 at 07:35; Status DC Bisacodyl 10 mg DAILY RC Last administered on 08/18/25at 07:58; Start 08/17/25 at 09:00; Stop 08/20/25 at 08:59; Status DC Insulin Human Lispro INSULIN SLIDING SCAL... ACHS SQ; Start 08/16/25 at 21:00; Stop 08/17/25 at 09:31; Status DC Insulin Glargine 5 units BID@0730,2100 SQ Last administered on 08/16/25at 21:21; Start 08/16/25 at 21:00; Stop 08/17/25 at 09:31; Status DC Pantoprazole Sodium 40 mg Q12H IVP Last administered on 08/20/25at 03:53; Start 08/17/25 at 16:30; Stop 08/20/25 at 16:32; Status DC Insulin Human Regular INSULIN SLIDING SCAL... ACHS SQ Last administered on 08/19/25at 21:31; Start 08/17/25 at 16:30; Stop 08/20/25 at 16:32; Status DC Insulin Human Regular 12 unit TIDAC SQ Last administered on 08/18/25at 16:39; Start 08/18/25 at 07:30; Stop 08/18/25 at 20:19; Status DC Vancomycin HCl 1 each AD IV; Start 08/17/25 at 22:00; Stop 08/31/25 at 21:59 Vancomycin HCl 250 ml @ 83.333 mls/ hr ONCE ONCE IV Last administered on 08/17/25at 23:05; Start 08/17/25 at 22:30; Stop 08/18/25 at 01:29; Status DC Vancomycin HCl 250 ml @ 125 mls/hr Q12H IV Last administered on 08/19/25at 09:39; Start 08/18/25 at 09:00; Stop 08/19/25 at 20:54; Status DC Albumin Human 50 ml @ 0 mls/hr BID IV Last administered on 08/22/25at 20:56; Start 08/18/25 at 09:00; Stop 08/23/25 at 08:59; Status DC Lidocaine 1 each DAILY TP Last administered on 08/24/25at 09:32; Start 08/19/25 at 09:00; Stop 09/18/25 at 08:59 Lidocaine 1 each ONCE ONCE TP Last administered on 08/18/25at 13:52; Start 08/18/25 at 14:00; Stop 08/18/25 at 14:01; Status DC Diphenhydramine HCl 25 mg ONCE ONCE PO Last administered on 08/18/25at 15:19; Start 08/18/25 at 15:30; Stop 08/18/25 at 15:31; Status DC Insulin Human Regular 16 unit TIDAC SQ Last administered on 08/19/25at 16:47; Start 08/19/25 at 07:30; Stop 08/20/25 at 06:22; Status DC Insulin Glargine 42 units DAILY SQ Last administered on 08/19/25at 09:40; Start 08/19/25 at 09:00; Stop 08/20/25 at 06:22; Status DC Calcium Carbonate 500 tab QID PRN PO Last administered on 08/20/25at 05:10; Start 08/19/25 at 12:00; Stop 08/20/25 at 16:32; Status DC Morphine Sulfate 2 mg Q6H PRN IVP Last administered on 08/19/25at 17:50; Start 08/19/25 at 18:00; Stop 08/20/25 at 16:32; Status DC Cefazolin Sodium 2 gm ONCALL IVP Last administered on 08/20/25at 16:30; Start 08/19/25 at 19:30; Stop 08/21/25 at 08:36; Status DC Vancomycin HCl 250 ml @ 125 mls/hr Q8H IV Last administered on 08/20/25at 22:26; Start 08/19/25 at 21:30; Stop 08/21/25 at 00:23; Status DC Sodium Chloride 500 ml @ 500 mls/hr Q1H IV Last administered on 08/20/25at 00:53; Start 08/20/25 at 00:33; Stop 08/20/25 at 03:16; Status DC Nitroglycerin/ Dextrose 250 ml @ 0 mls/hr PROTOCOL IV Last administered on 08/20/25at 03:12; Start 08/20/25 at 03:30; Stop 08/20/25 at 16:32; Status DC Insulin Glargine 45 units DAILY SQ; Start 08/20/25 at 09:00; Stop 08/20/25 at 16:32; Status DC Insulin Human Regular 17 unit TIDAC SQ; Start 08/20/25 at 07:30; Stop 08/20/25 at 16:32; Status DC Epinephrine HCl 10 mg/Sodium Chloride 250 ml @ 0 mls/hr AD PRN IV Last administered on 08/22/25at 04:22; Start 08/20/25 at 08:00; Stop 09/19/25 at 07:59 Norepinephrine Bitartrate 250 ml @ 0 mls/hr AD PRN IV Last administered on 08/21/25at 06:40; Start 08/20/25 at 08:00; Stop 09/19/25 at 07:59 Aminocaproic Acid 42966 mg/Sodium Chloride 480 ml @ 0 mls/hr AD PRN IV; Start 08/20/25 at 08:00; Stop 09/19/25 at 07:59 Cefazolin Sodium 1 gm STK-MED ONCE .ROUTE; Start 08/20/25 at 08:23; Stop 08/20/25 at 08:23; Status DC Heparin Sodium/ Sodium Chloride 500 ml @ As Directed STK-MED ONCE IV; Start 08/20/25 at 08:23; Stop 08/20/25 at 08:24; Status DC Papaverine HCl 60 mg STK-MED ONCE .ROUTE Last administered on 08/20/25at 17:05; Start 08/20/25 at 08:23; Stop 08/20/25 at 08:24; Status DC Epinephrine HCl 10 mg/Sodium Chloride 250 ml @ 0 mls/hr AD PRN IV; Start 08/20/25 at 09:00; Stop 08/20/25 at 09:03; Status DC Norepinephrine Bitartrate 250 ml @ 0 mls/hr AD PRN IV; Start 08/20/25 at 09:00; Stop 08/20/25 at 09:03; Status DC Aminocaproic Acid 73811 mg/Sodium Chloride 480 ml @ 0 mls/hr AD PRN IV; Start 08/20/25 at 09:00; Stop 08/20/25 at 09:03; Status DC Protamine Sulfate 250 mg STK-MED ONCE IV; Start 08/20/25 at 15:44; Stop 08/20/25 at 15:44; Status DC Lidocaine HCl 100 mg STK-MED ONCE .ROUTE; Start 08/20/25 at 15:44; Stop 08/20/25 at 15:44; Status DC Heparin Sodium (Porcine) 10,000 unit STK-MED ONCE .ROUTE; Start 08/20/25 at 15:44; Stop 08/20/25 at 15:44; Status DC Epinephrine HCl 1 mg STK-MED ONCE .ROUTE; Start 08/20/25 at 15:44; Stop 08/20/25 at 15:44; Status DC Sodium Bicarbonate 200 ml @ As Directed STK-MED ONCE .ROUTE; Start 08/20/25 at 15:44; Stop 08/20/25 at 15:44; Status DC Norepinephrine Bitartrate 4 mg STK-MED ONCE IV; Start 08/20/25 at 15:44; Stop 08/20/25 at 15:44; Status DC Propofol 200 mg STK-MED ONCE IV; Start 08/20/25 at 15:45; Stop 08/20/25 at 15:44; Status DC Fentanyl Citrate 1,000 mcg STK-MED ONCE IJ; Start 08/20/25 at 15:45; Stop 08/20/25 at 15:45; Status DC Midazolam HCl 2 mg STK-MED ONCE .ROUTE; Start 08/20/25 at 15:45; Stop 08/20/25 at 15:45; Status DC Rocuronium [place] 50 mg STK-MED ONCE .ROUTE; Start 08/20/25 at 15:45; Stop 08/20/25 at 15:45; Status DC Sodium Bicarbonate 400 ml @ As Directed STK-MED ONCE .ROUTE; Start 08/20/25 at 15:46; Stop 08/20/25 at 15:46; Status DC Cefazolin Sodium 1 gm STK-MED ONCE .ROUTE Last administered on 08/20/25at 17:05; Start 08/20/25 at 16:19; Stop 08/20/25 at 16:19; Status DC Vancomycin HCl 250 ml @ As Directed STK-MED ONCE IV Last administered on 08/20/25at 16:40; Start 08/20/25 at 16:40; Stop 08/20/25 at 16:40; Status DC Sodium Chloride 1,000 ml @ 10 mls/hr ONCE IV Last administered on 08/20/25at 22:31; Start 08/20/25 at 17:00; Stop 08/21/25 at 16:59; Status DC Sodium Chloride 10 ml Q8H PRN IVP; Start 08/20/25 at 17:00; Stop 09/19/25 at 16:59 Morphine Sulfate 0.5 mg Q2H PRN IV; Start 08/20/25 at 17:00; Stop 08/20/25 at 18:07; Status DC Morphine Sulfate 1 mg Q2H PRN IV; Start 08/20/25 at 17:00; Stop 08/21/25 at 16:59; Status DC Acetaminophen 650 mg Q4H PRN RC; Start 08/20/25 at 17:00; Stop 09/19/25 at 16:59 Ondansetron HCl 4 mg Q6H PRN IV; Start 08/20/25 at 17:00; Stop 09/19/25 at 16:59 Sodium Chloride 500 ml @ 0 mls/hr AD IV; Start 08/20/25 at 17:00; Stop 09/19/25 at 16:59 Nitroglycerin/ Dextrose 0 ml @ 0 mls/hr AD IV; Start 08/20/25 at 17:00; Stop 08/23/25 at 16:59; Status DC Propofol 100 ml @ 0 mls/hr AD PRN IV; Start 08/20/25 at 17:00; Stop 08/24/25 at 17:00; Status DC Norepinephrine Bitartrate 8 mg/ Dextrose 250 ml @ 0 mls/hr AD PRN IV; Start 08/20/25 at 17:00; Stop 08/21/25 at 10:49; Status DC Epinephrine HCl 10 mg/Sodium Chloride 250 ml @ 14.091 mls/ hr AD PRN IV; Start 08/20/25 at 17:00; Stop 08/21/25 at 10:49; Status DC Aminocaproic Acid 28212 mg/Sodium Chloride 310 ml @ 25 mls/hr AD IV; Start 08/20/25 at 17:00; Stop 08/21/25 at 05:23; Status DC Calcium Gluconate 1 gm/Sodium Chloride 60 ml @ 200 mls/hr AD PRN IV Last administered on 08/25/25at 02:11; Start 08/20/25 at 17:00; Stop 09/19/25 at 16:59 Magnesium Sulfate 50 ml @ 12.5 mls/hr AD PRN IV Last administered on 08/24/25at 05:02; Start 08/20/25 at 17:00; Stop 09/19/25 at 16:59 Potassium Chloride 100 ml @ 100 mls/hr AD PRN IV Last administered on 08/25/25at 02:11; Start 08/20/25 at 17:00; Stop 09/19/25 at 16:59 Potassium Phosphate 250 ml @ 42 mls/hr AD PRN IV; Start 08/20/25 at 17:00; Stop 09/19/25 at 16:59 Albumin Human 250 ml @ 0 mls/hr AD PRN IV Last administered on 08/20/25at 22:46; Start 08/20/25 at 17:00; Stop 08/20/25 at 22:46; Status DC Acetaminophen 650 mg Q4H PRN PO; Start 08/20/25 at 17:00; Stop 09/19/25 at 16:59 Insulin Human Regular 100 unit/ Sodium Chloride 100 ml @ 0 mls/hr AD IV Last administered on 08/21/25at 15:00; Start 08/20/25 at 17:00; Stop 08/22/25 at 16:59; Status DC Cefazolin Sodium 2 gm Q8H IVPB Last administered on 08/21/25at 13:45; Start 08/20/25 at 22:00; Stop 08/21/25 at 14:01; Status DC Tramadol HCl 25 mg Q6H PRN PO; Start 08/20/25 at 17:00; Stop 08/25/25 at 16:59 Tramadol HCl 50 mg Q6H PRN PO Last administered on 08/25/25at 02:11; Start 08/20/25 at 17:00; Stop 08/25/25 at 16:59 Famotidine 20 mg BID IV Last administered on 08/21/25at 20:17; Start 08/20/25 at 21:00; Stop 08/22/25 at 08:20; Status DC Sodium Bicarbonate 50 meq AD PRN IV Last administered on 08/21/25at 01:19; Start 08/20/25 at 17:00; Stop 08/23/25 at 16:59; Status DC Dextrose 50 ml AD PRN IV; Start 08/20/25 at 17:00; Stop 09/19/25 at 16:59 Glucagon 1 mg AD PRN IM; Start 08/20/25 at 17:00; Stop 09/19/25 at 16:59 Amiodarone HCL/ Dextrose 100 ml @ As Directed STK-MED ONCE .ROUTE; Start 08/20/25 at 16:52; Stop 08/20/25 at 16:52; Status DC Lidocaine HCl 100 mg STK-MED ONCE .ROUTE; Start 08/20/25 at 17:34; Stop 08/20/25 at 17:34; Status DC Morphine Sulfate 0.5 mg Q2H PRN IV; Start 08/20/25 at 18:30; Stop 08/21/25 at 16:59; Status DC Heparin Sodium (Porcine) 10,000 unit STK-MED ONCE .ROUTE; Start 08/20/25 at 18:12; Stop 08/20/25 at 18:12; Status DC Insulin Human Regular 300 unit STK-MED ONCE .ROUTE; Start 08/20/25 at 19:39; Stop 08/20/25 at 19:39; Status DC Dexmedetomidine/ Sodium Chloride 400 mcg PROTOCOL IV Last administered on 08/22/25at 00:35; Start 08/20/25 at 20:30; Stop 09/19/25 at 20:29 Magnesium Sulfate 8.12 meq STK-MED ONCE IJ; Start 08/20/25 at 20:17; Stop 08/20/25 at 20:17; Status DC Vasopressin 20 units STK-MED ONCE .ROUTE; Start 08/20/25 at 20:17; Stop 08/20/25 at 20:17; Status DC Amiodarone HCl 360 mg/Dextrose 207.2 ml @ 33.3 mls/hr AD IV; Start 08/20/25 at 21:00; Stop 08/20/25 at 21:05; Status DC Amiodarone HCl 540 mg/Dextrose 310.8 ml @ 16.7 mls/hr [id number] IV Last administered on 08/21/25at 20:12; Start 08/21/25 at 03:00; Stop 09/20/25 at 02:59 Amiodarone HCL/ Dextrose 207.2 ml @ 33.3 mls/hr AD IV Last administered on 08/20/25at 21:24; Start 08/20/25 at 21:30; Stop 08/21/25 at 10:49; Status DC Albumin Human 250 ml @ 0 mls/hr ONCE ONCE IV Last administered on 08/20/25at 00:00; Start 08/20/25 at 00:00; Stop 08/20/25 at 23:58; Status DC Lidocaine HCl/ Dextrose 250 ml @ 0 mls/hr PROTOCOL IV; Start 08/21/25 at 00:00; Stop 09/20/25 at 00:00 Albumin Human 250 ml @ As Directed STK-MED ONCE IV; Start 08/21/25 at 00:03; Stop 08/21/25 at 00:05; Status DC Vancomycin HCl 250 ml @ 125 mls/hr Q8H IV; Start 08/21/25 at 08:00; Stop 08/21/25 at 06:28; Status DC Vancomycin HCl 250 ml @ 125 mls/hr Q8H IV Last administered on 08/21/25at 08:15; Start 08/21/25 at 06:30; Stop 08/21/25 at 08:35; Status DC Vancomycin HCl 250 ml @ 125 mls/hr Q8H IV Last administered on 08/24/25at 09:32; Start 08/21/25 at 16:30; Stop 08/24/25 at 16:54; Status DC Furosemide 20 mg Q12H IV Last administered on 08/22/25at 11:53; Start 08/21/25 at 11:30; Stop 08/22/25 at 14:17; Status DC Acetaminophen 1,000 mg Q6H6 IVPB Last administered on 08/25/25at 05:24; Start 08/21/25 at 12:00; Stop 09/20/25 at 11:59 Heparin Sodium/ Dextrose 250 ml @ 0 mls/hr PROTOCOL IV Last administered on 08/24/25at 21:16; Start 08/21/25 at 11:30; Stop 09/20/25 at 11:29 Iron Sucrose 200 mg DAILY IV Last administered on 08/22/25at 11:53; Start 08/21/25 at 13:00; Stop 08/23/25 at 09:43; Status DC Amiodarone HCl 200 mg BID PO Last administered on 08/24/25at 20:00; Start 08/22/25 at 09:00; Stop 08/29/25 at 21:00 Famotidine 20 mg BID PO Last administered on 08/24/25at 20:00; Start 08/22/25 at 09:00; Stop 09/21/25 at 08:59 Insulin Human Regular INSULIN SLIDING SCAL... ACHS SQ Last administered on 08/22/25at 20:58; Start 08/22/25 at 11:30; Stop 08/22/25 at 21:32; Status DC Furosemide 40 mg Q12H IV; Start 08/22/25 at 21:00; Stop 08/22/25 at 14:32; Status DC Furosemide 20 mg Q12H IV Last administered on 08/23/25at 09:50; Start 08/22/25 at 21:00; Stop 08/23/25 at 11:37; Status DC Insulin Human Regular INSULIN SLIDING SCAL... ACHS SQ Last administered on 08/24/25at 20:29; Start 08/23/25 at 07:30; Stop 09/22/25 at 07:29 Insulin Glargine 15 units DAILY SQ Last administered on 08/24/25at 09:34; Start 08/23/25 at 09:00; Stop 09/22/25 at 08:59 Iron Sucrose 200 mg DAILY IV Last administered on 08/24/25at 09:32; Start 08/23/25 at 09:00; Stop 09/22/25 at 08:59 Furosemide 40 mg Q12H IV Last administered on 08/24/25at 22:45; Start 08/23/25 at 11:30; Stop 09/22/25 at 11:29 Gabapentin 300 mg TID PO Last administered on 08/24/25at 20:00; Start 08/23/25 at 14:00; Stop 09/22/25 at 13:59 Vancomycin HCl 250 ml @ 125 mls/hr Q12H IV Last administered on 08/24/25at 22:45; Start 08/24/25 at 23:00; Stop 09/03/25 at 22:59 YAMILE MONTANO MD Aug 25, 2025 07:19
[2025-08-25 07:37] LABS: ABG BASE EXCESS -0.5 mmol/L (-2.0-3.0); ABG HCO3 22.8 mmol/L (21.0-28.0); ABG OXYGEN SATURATION 94.8 % (94.0-98.0); ABG PCO2 32 mmHg (32-45); ABG PH 7.465 (7.350-7.450); CARBON MONOXIDE 0.4 % (0.5-1.5); PO2, ARTERIAL BG 77.1 mmHg (83.0-108.0); TEMPERATURE, CELSIUS BG 37.0 CELSIUS (35.5-37.0); VENT MODE, BG 3L NC (ROOM AIR)
--- NOTE | 2025-08-25 11:04 | PN ---
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 Patient assessed at bedside. Denies chest pain, palpitation, or shortness for breath. Hemodynamically stable. On impella support now weaned at P2. Plans for possible removal today. No major overnight events reported. Plan: Follow CT surgeon recs Continues on Lasix, Follow I&Os Daily chest x-ray Antibiotics and following cultures, on vanc and ceftriaxone. Impella support Amiodarone for rate control Total critical care time spent 35 minutes, this excludes any procedures performed or any time spent in educational or teaching. REVIEW OF SYSTEMS: 12 point ROS reviewed with patient. Pertinent positives mentioned above. Otherwise negative. PHYSICAL EXAM: GENERAL: alert, weak, awake oriented x 3 HEENT: EOMI, Sclera non icteric, moist mucosa NECK: Supple, no JVD, trachea midline LUNGS: Clear breath sounds bilaterally. No wheezes HEART: TVP Normal S1 and S2, without murmurs ABD: Abdomen soft, nontender. Bowel sounds present EXT: No clubbing cyanosis or edema NEURO: Alert and oriented to person, follows commands Vital Signs (last 8hr) Date Time Temp Pulse Resp B/P (MAP) Pulse Ox O2 Delivery O2 Flow Rate FiO2 08/25/25 10:00 80 15 98 79/60 (66) 08/25/25 09:30 80 27 98 107/64 (78) 08/25/25 09:00 80 24 99 83/64 (70) 08/25/25 08:30 80 17 100 101/67 (78) 08/25/25 08:00 80 23 100 103/67 (79) 08/25/25 07:30 80 24 99 94/75 (81) 08/25/25 06:30 80 19 97 108/63 (78) 08/25/25 06:15 39 19 97 106/61 (76) 08/25/25 06:00 45 26 97 32 103/62 (76) 08/25/25 05:45 80 13 99 112/61 (78) 08/25/25 05:30 80 15 97 108/61 (77) 08/25/25 05:15 80 12 97 104/68 (80) 08/25/25 05:00 80 12 90/50 (63) 98 32 102/67 (79) 08/25/25 04:45 80 12 97 102/67 (79) 08/25/25 04:30 80 11 80/49 (59) 99 94/62 (73) 08/25/25 04:15 80 12 98 86/56 (66) 08/25/25 04:00 97.9 08/25/25 04:00 80 14 86/38 (54) 98 32 90/61 (71) 08/25/25 04:00 98 Nasal Cannula* 3 32 08/25/25 03:45 80 12 99 93/60 (71) 08/25/25 03:30 80 12 92/39 (56) 99 96/60 (72) 08/25/25 03:15 80 13 99 103/65 (78) LABS: Hematology Labs: Test 08/25/25 02:37 Range/Units White Blood Count 9.7 4.8-10.8 K/uL Red Blood Count 2.77 L 4.00-5.50 MIL/uL Hemoglobin 8.6 L 12.0-16.0 g/dL Hematocrit 25.9 L 36-48 % Mean Corpuscular Volume 93.5 79-99 fL Mean Corpuscular Hemoglobin 31.0 27.0-33.0 pg Mean Corpuscular Hemoglobin Concent 33.2 32.0-36.0 g/dL Red Cell Distribution Width 18.4 H 11.0-15.5 % Platelet Count 98 L 130-400 K/uL Mean Platelet Volume 11.7 H 7.5-10.5 fL Immature Granulocyte % (Auto) 2.2 H 0-1 % Neutrophils (%) (Auto) 68.7 40.0-77.0 % Lymphocytes (%) (Auto) 19.3 L 21.0-51.0 % Monocytes (%) (Auto) 7.3 3.0-13.0 % Eosinophils (%) (Auto) 2.3 0.0-8.0 % Basophils (%) (Auto) 0.2 0.0-5.0 % Neutrophils # (Auto) 6.7 1.8-7.7 K/uL Lymphocytes # (Auto) 1.9 1.0-4.8 K/uL Monocytes # (Auto) 0.7 0.1-1.0 K/uL Eosinophils # (Auto) 0.22 0.00-0.70 K/uL Basophils # (Auto) 0.02 0.00-0.20 K/uL Absolute Immature Granulocyte (auto 0.21 0-1 K/uL Nucleated Red Blood Cells 0.6 H 0.0-0.19 % Red Blood Cell Morphology See comments Chemistry Labs: Test 08/25/25 07:05 08/25/25 02:05 08/24/25 04:00 Range/Units Whole Blood Glucose 136 H 70-110 MG/DL Sodium Level 142 136-145 mmol/L Potassium Level 4.0 3.5-5.1 mmol/L Chloride Level 107 101-111 mmol/L Carbon Dioxide Level 26 21-32 mmol/L Blood Urea Nitrogen 17 7-18 mg/dL Creatinine 0.6 0.5-1.0 mg/dL Glomerular Filtration Rate Calc 104 >90 mL/min Random Glucose 141 H 70-105 mg/dL Total Calcium 7.8 L 8.5-10.1 mg/dL Ionized Calcium 1.09 L 1.15-1.33 MMOL/L Total Bilirubin 0.7 0.2-1.0 mg/dL Aspartate Amino Transf (AST/SGOT) 54 H 10-37 U/L Alanine Aminotransferase (ALT/SGPT) 30 12-78 U/L Alkaline Phosphatase 232 #H 50-136 U/L Total Protein 5.2 L 6.0-8.3 g/dL Albumin 1.9 L 3.5-5.0 g/dL Magnesium Level 1.80 1.80-2.40 mg/dL Coagulation Labs: Test 08/25/25 02:05 Range/Units Prothrombin Time 11.6 9.6-11.6 SEC Prothromb Time International Ratio 1.11 0.85-1.15 Activated Partial Thromboplast Time 59.9 H 26.3-35.5 SEC Fibrinogen > 450 H 180-350 mg/dL DIAGNOSTICS / RADIOLOGY RESULTS: [ ] PLAN NEURO: Minimize central acting medications as possible. Fall Precautions. Well lighted room through the day and minimize interruptions through the night to prevent acute delirium. PULMONARY: Supplemental 02 as needed Titrate Fio2 to keep Spo2 > or = 90% DuoNebs and CPT as needed IS hourly while awake for pulmonary hygiene CARDIOVASCULAR: Follow hemodynamics. Titrate vasopressor to keep MAP >65 or systolic blood pressure >95mmHg DIPS: Dopamine weaned off Heparin gtt LINES: Peripheral IV CVP Impella GI & NUTRITION: Continue nutritional support Aspirations precautions Prokinetic agents and laxatives as needed Clear liquid diet as tolerated KIDNEYS & ELECTROLYTES: Strict monitoring of intake and output Daily weights Avoid nephrotoxic agents Monitor electrolytes and replace as needed Goal urine output of 30mL/hr or 0.5mL/kg/hr ENDOCRINE: Maintain blood glucose between 100-180 at all times. Insulin sliding scale for blood glucose management INFECTIOUS DISEASE: Trend temperature. Astudillo-culture if febrile. Micro: [ ] Urine culture - Ecoli Blood culture - Staph cohnii urealyticum Antibiotics: [ ] Rocephin Vancomycin HEMATOLOGY & COAGULATION: Monitor H&H. Keep Hgb > 7 Transfuse 1 unit of PRBC for Hgb < 7 Transfuse 1 pack of platelets of platelets < 20, 000 Watch for any signs and symptoms of bleeding SKIN: Pressure ulcer prevention per facility protocol Rehab: PT/OT Prophylaxis: GI: PPI DVT: SCDs patient on heparin drip Code Status: Full Resuscitation Disposition: ICU ATTESTATION BY PHYSICIAN I have evaluated the patient chart, medical records, and spoke with appropriate staff. I reviewed the documentation, medical decision making, and treatment plan as noted by the mid-level provider above. I agree with the findings and plan of care. Ata Foster MD, NELLY J AGACN Aug 25, 2025 11:04
--- NOTE | 2025-08-25 12:08 | NUR ---
Nutritional f/u Note: Chart, meds, and labs Reviewed. Pt requesting breads and sandwiches. Pt currently on 60gm cc heart healthy easy to chew, this diet does not allow for whole bread. Wt Status: 111kg admit wt 99kg. Recommend: -if medically feasible remove GI soft and easy to chew from diet order. To improve PO intake for pt. -RD to provide further recommendations based on clinical progress. -Monitor feeding tolerance, %, wt, and labs -If No BM >3days consider bowel stimulant. - Please notify RD if additional nutrition concerns arise. Addendum: 08/25/25 at [address] Amended: Links added.
--- NOTE | 2025-08-25 12:42 | PN ---
[facility] PROGRESS NOTE Date of Service: Aug 25, 2025 Time of Service: 12:41 SUBJECTIVE: This is a 60-year-old female with underlying history of obesity, coronary artery disease, poorly controlled type 2 diabetes mellitus, history of anemia, history of cocaine use, tobacco use disorder, history of CVA in 2008, who presented to the ER for further evaluation of severe substernal chest pain and shortness of breadth. Patient reports having history of cocaine use with last use of cocaine yesterday. She reports having severe substernal chest pain that started today in it has been associated with dizziness, and generalized malaise. Pain is 10/1 0 in severity. Patient denies any syncope or fall. She has been having lightheadedness with ambulation. She has not been able to follow up with Cardiology as outpatient. She has a previous history of abnormal CT coronary angiography when she was hospitalized in 04/2025 and she was treated medically. With regards to type 2 diabetes mellitus, she reports being on metformin as ou tpatient. On presentation to the hospital, patient was noted to be hypotensive with blood pressure of 80/60 with heart rate of 40 with EKG showing complete heart block. [place] [address], hemoglobin 12.4, platelet count of 678960. BMP showed sodium of 133, potassium 4.8, chloride of 99, BUN of 21, creatinine 1.0, blood glucose of 403, [place] [address]. Chest x-ray showed no acute infiltrates. Patient will be admitted for further management of cardiogenic shock, NSTEMI, complete heart block with history of poorly controlled type 2 diabetes mellitus. Patient will be emergently taken to the scientific laboratory supervisor for cardiac catheterization/ PCI and tentative plan for MCS support. Patient will be admitted to intensive care unit and she remains critically ill. 08/14 patient remains critically ill requiring Impella and dopamine support. UDS has demonstrated benzos and cocaine 08/15 patient remains on Impella 08/16 patient appears to be resting comfortably in bed. She remains on Impella and dopamine support. She reports she would like to be bathed and wants her hair combed significant and she is feeling better 08/17 patient is on GI soft diet tolerating well. She remains on Impella support 08/18 patient is resting comfortably in bed. She remains on Impella. Tolerating oral intake. 08/19 hemoglobin dropped to 6.5 from 7.0-7.5 yesterday. I agree with transfusing 1 unit PRBC. Patient remains on Impella. Patient is resting comfortably in bed. 08/20 patient is resting comfortably in bed. She remains on Impella support pending recovery for CABG. 08/21 patient underwent CABG x3 yesterday, no complications reported patient remains on Impella the patient is on norepinephrine, amiodarone, dopamine, insulin drip 08/22 postop day 2. From CABG x3. Patient does awaken to verbal stimulation and states she has some chest pain and slight shortness for breath she feels the pain as incisional from her open heart procedure. He is on p.o. amiodarone and being weaned off norepinephrine. 08/23 postop day 3 from CABG x3. Patient is in bed visiting with her son at the bedside. She states she has no shortness for breath, she does have some incisional chest discomfort, no nausea or vomiting or diarrhea. She is off nor epinephrine drip and remains with the Impella assist. 08/24 patient is seen and examined at bedside, discussed with the RN, no acute events overnight, remains with the Impella support, postoperative day four from CABG x3. She is awake, following commands. Off vasopressors. Remains on heparin drip and sodium bicarbonate drip. Continue to follow critical Care and Cardiothoracic input and recommendation. 08/25 PATIENT IS SEEN AND EXAMINED AT BEDSIDE, DISCUSSED WITH THE RN, NO ACUTE EVENTS OVERNIGHT, PATIENT FOLLOWING COMMANDS, SHE REMAINS WITH THE IMPELLA SUPPORT, CHEST TUBE IN PLACE, POSTOPERATIVE DAY FIVE, STATUS POST CABG. CU RRENTLY OFF PRESSORS, ON HEPARIN DRIP. CONTINUE TO FOLLOW CRITICAL CARE AND CARDIOTHORACIC INPUT AND RECOMMENDATIONS. POSSIBLE REMOVAL OF IMPELLA SUPPORT TODAY. REVIEW OF SYSTEMS CONSTITUTIONAL: generalized fatigue, malaise NEUROLOGICAL: Denies headache, amaurosis fugax, motor weakness, sensory deficit, vertigo/spinning sensation, gait abnormalities, or tremors. ENT: No hearing loss, otalgia, otorrhea, rhinitis, rhinorrhea, hoarseness, or sore throat. CARDIOVASCULAR: Mild incisional chest pain, no shortness breath PULMONARY: Denies any shortness of breath, cough, phlegm/sputum, hemoptysis, pleuritic chest pain. SLEEP: Denies morning headaches, daytime somnolence or napping. Denies difficulty falling asleep, staying asleep, waking from sleep. Denies knowledge of snoring. GASTROINTESTINAL: No nausea, Denies any type of dysphagia to either liquids or solids. Denies vomiting, pyrosis, early satiety, abdominal pain, diarrhea, constipation, or changes in stool consistency or caliber. Denies coffee-ground emesis, hematemesis, hematochezia, or melanotic stools. GENITOURINARY: Denies frequency, urgency, nocturia, hematuria or incontinence (Storage/Irritative symptoms.) Low urinary stream, straining to void, urinary intermittency or hesitancy, splitting of the voiding stream, terminal dribbling. ENDOCRINOLOGIC: Denies polyuria, polydipsia, polyphagia or heat/cold intolerances. HEMATOLOGIC: Denies thrombophilia/previous clots, or coagulopathy/bleeding disorders. ONCOLOGIC: Denies personal history of malignancy. DERMATOLOGIC: Denies rashes or pruritus. PSYCHIATRIC: Denies any suicidal or homicidal ideation. Denies hallucinations. PHYSICAL EXAM GENERAL APPEARANCE: The patient is awake, appears ill and in no distress NEUROLOGICAL: Cranial nerves II-XII grossly intact. Motor is 5/5 in bilateral upper and lower extremities proximal to distal. No sensory deficits. HEENT: Face is symmetric. Pupils are equal and reactive. Extraocular movements are intact. NECK: Supple. No JVD. No thyromegaly. No submental, submandibular, pre- /postauricular, occipital or supraclavicular lymphadenopathy. CHEST: Normal chest expansion. No Telemetry. LUNGS: minimal crackles noted of the bilateral lung bases CARDIOVASCULAR: Regular. S1 and S2 normal. No appreciable rubs, murmurs or gallops. ABDOMEN: Soft, nontender, and nondistended. There is no rebound, voluntary guarding, or rigidity. : Deferred. No Coombs. EXTREMITIES: trace edema noted of the bilateral lower extremities SKIN: No skin breakdown. Vital Signs (last 8hr) Date Time Temp Pulse Resp B/P (MAP) Pulse Ox O2 Delivery O2 Flow Rate FiO2 08/25/25 12:29 97.3 08/25/25 10:00 80 15 98 79/60 (66) 08/25/25 09:30 80 27 98 107/64 (78) 08/25/25 09:00 80 24 99 83/64 (70) 08/25/25 08:30 80 17 100 101/67 (78) 08/25/25 08:00 98.1 08/25/25 08:00 80 23 100 103/67 (79) 08/25/25 07:30 80 24 99 94/75 (81) 08/25/25 06:30 80 19 97 108/63 (78) 08/25/25 06:15 39 19 97 106/61 (76) 08/25/25 06:00 45 26 97 32 103/62 (76) 08/25/25 05:45 80 13 99 112/61 (78) 08/25/25 05:30 80 15 97 108/61 (77) 08/25/25 05:15 80 12 97 104/68 (80) 08/25/25 05:00 80 12 90/50 (63) 98 32 102/67 (79) 08/25/25 04:45 80 12 97 102/67 (79) LABS: Laboratory: Test 08/25/25 11:10 08/25/25 07:35 08/25/25 02:37 08/25/25 02:05 Range/Units Whole Blood Glucose 212 #H 70-110 MG/DL Blood Gas Specimen Type Arterial Arterial Blood pH 7.465 H 7.350-7.450 Arterial Blood Partial Pressure CO2 32 32-45 mmHg Arterial Blood Partial Pressure O2 77.1 L 83.0-108.0 mmHg Arterial Blood HCO3 22.8 21.0-28.0 mmol/L Arterial Blood Oxygen Saturation 94.8 94.0-98.0 % Arterial Blood Base Excess -0.5 -2.0-3.0 mmol/L Hemoglobin (Blood Gas) 9.7 L 12.0-16.0 g/dL Sodium (Blood Gas) 136 136-145 MMOL/L Bedside Potassium (Blood Gas) 4.2 3.4-4.5 MMOL/L Bedside Chloride (Blood Gas) 105 98-107 MMOL/L Bedside Glucose (Blood Gas) 153 H 65-95 MG/DL Bedside Ionized Calcium (Blood Gas) 1.14 L 1.15-1.33 MMOL/L Bedside Lactic Acid (Blood Gas) 0.91 H 0.36-0.75 MMOL/L Blood Gas Temperature 37.0 35.5-37.0 CELSIUS Blood Gas Flow-by 3.00 0.00-15.00 L/min Blood Gas Vent Mode 3L NC ROOM AIR FiO2 32.0 % Blood Gas Specimen Comment LAURI RN White Blood Count 9.7 4.8-10.8 K/uL Red Blood Count 2.77 L 4.00-5.50 MIL/uL Hemoglobin 8.6 L 12.0-16.0 g/dL Hematocrit 25.9 L 36-48 % Mean Corpuscular Volume 93.5 79-99 fL Mean Corpuscular Hemoglobin 31.0 27.0-33.0 pg Mean Corpuscular Hemoglobin Concent 33.2 32.0-36.0 g/dL Red Cell Distribution Width 18.4 H 11.0-15.5 % Platelet Count 98 L 130-400 K/uL Mean Platelet Volume 11.7 H 7.5-10.5 fL Immature Granulocyte % (Auto) 2.2 H 0-1 % Neutrophils (%) (Auto) 68.7 40.0-77.0 % Lymphocytes (%) (Auto) 19.3 L 21.0-51.0 % Monocytes (%) (Auto) 7.3 3.0-13.0 % Eosinophils (%) (Auto) 2.3 0.0-8.0 % Basophils (%) (Auto) 0.2 0.0-5.0 % Neutrophils # (Auto) 6.7 1.8-7.7 K/uL Lymphocytes # (Auto) 1.9 1.0-4.8 K/uL Monocytes # (Auto) 0.7 0.1-1.0 K/uL Eosinophils # (Auto) 0.22 0.00-0.70 K/uL Basophils # (Auto) 0.02 0.00-0.20 K/uL Absolute Immature Granulocyte (auto 0.21 0-1 K/uL Nucleated Red Blood Cells 0.6 H 0.0-0.19 % Red Blood Cell Morphology See comments Prothrombin Time 11.6 9.6-11.6 SEC Prothromb Time International Ratio 1.11 0.85-1.15 Activated Partial Thromboplast Time 59.9 H 26.3-35.5 SEC Fibrinogen > 450 H 180-350 mg/dL Sodium Level 142 136-145 mmol/L Potassium Level 4.0 3.5-5.1 mmol/L Chloride Level 107 101-111 mmol/L Carbon Dioxide Level 26 21-32 mmol/L Blood Urea Nitrogen 17 7-18 mg/dL Creatinine 0.6 0.5-1.0 mg/dL Glomerular Filtration Rate Calc 104 >90 mL/min Random Glucose 141 H 70-105 mg/dL Total Calcium 7.8 L 8.5-10.1 mg/dL Ionized Calcium 1.09 L 1.15-1.33 MMOL/L Total Bilirubin 0.7 0.2-1.0 mg/dL Aspartate Amino Transf (AST/SGOT) 54 H 10-37 U/L Alanine Aminotransferase (ALT/SGPT) 30 12-78 U/L Alkaline Phosphatase 232 #H 50-136 U/L Total Protein 5.2 L 6.0-8.3 g/dL Albumin 1.9 L 3.5-5.0 g/dL Test 08/24/25 15:13 08/24/25 04:00 Range/Units Vancomycin Level Trough 20.0 10.0-20.0 UG/ML Magnesium Level 1.80 1.80-2.40 mg/dL Current Medications Medications (Trade) Dose Ordered Sig/Elmer Route PRN Reason Start Time Stop Time Status Last Admin Dose Admin Acetaminophen (TYLenol 325MG TAB) 650 mg Q4H PRN PO Temp >38.3C(AFTER EXTUBATION) 08/20/25 17:00 09/19/25 16:59 Acetaminophen (TYLenol 325MG TAB) 650 mg Q6H PRN PO MILD PAIN (1-3) 08/13/25 16:30 09/12/25 16:29 08/23/25 11:01 650 MG Acetaminophen (TYLenol 500MG TAB) 500 mg Q6H PRN PO TEMP < 101.1 AND/OR HEADACHE 08/14/25 14:30 09/13/25 14:29 08/20/25 08:23 500 MG Acetaminophen (TYLenol 650MG SUPPOSITORY) 650 mg Q4H PRN RC Temp >38.3C WHILE INTUBATED 08/20/25 17:00 09/19/25 16:59 Acetaminophen (acetaMINOPHEN 1,000MG/100ML) 1,000 mg Q6H6 IVPB 08/21/25 12:00 09/20/25 11:59 08/25/25 11:26 1,000 MG Albumin Human 50 ml @ 0 mls/hr BID IV 08/18/25 09:00 08/23/25 08:59 DC 08/22/25 20:56 100 MLS/HR Albumin Human 250 ml @ 0 mls/hr AD PRN IV IF HEMODYNAMICALLY UNSTABLE 08/20/25 17:00 08/20/25 22:46 DC 08/20/25 22:46 0 MLS/HR Aminocaproic Acid 40100 mg/Sodium Chloride 310 ml @ 25 mls/hr AD IV 08/20/25 17:00 08/21/25 05:23 DC Aminocaproic Acid 15486 mg/Sodium Chloride 480 ml @ 0 mls/hr AD PRN IV BLEEDING CONTROL 08/20/25 08:00 09/19/25 07:59 Aminocaproic Acid 66638 mg/Sodium Chloride 480 ml @ 0 mls/hr AD PRN IV BLEEDING CONTROL 08/20/25 09:00 08/20/25 09:03 DC Amiodarone HCl (pacERONE 200MG) 200 mg BID PO 08/22/25 09:00 08/29/25 21:00 08/25/25 09:22 200 MG Amiodarone HCl 360 mg/Dextrose 207.2 ml @ 33.3 mls/hr AD IV 08/20/25 21:00 08/20/25 21:05 DC Amiodarone HCl 540 mg/Dextrose 310.8 ml @ 16.7 mls/hr [id number] IV 08/21/25 03:00 09/20/25 02:59 08/21/25 20:12 16.7 MLS/HR Amiodarone HCL/ Dextrose 207.2 ml @ 33.3 mls/hr AD IV 08/20/25 21:30 08/21/25 10:49 DC 08/20/25 21:24 33.3 MLS/HR Aspirin (Aspirin 81mg Chew Tab) 81 mg DAILY PO 08/14/25 09:00 09/13/25 08:59 08/25/25 09:22 81 MG Atorvastatin Calcium (LIPItor 40MG) 40 mg HS PO 08/13/25 21:00 09/12/25 20:59 08/24/25 20:00 40 MG Bisacodyl (DulcoLAX) 10 mg DAILY RC 08/17/25 09:00 08/20/25 08:59 DC 08/18/25 07:58 10 MG Calcium Carbonate (Tums 500 Mg Chew Tab) 500 tab QID PRN PO HEARTBURN 08/19/25 12:00 08/20/25 16:32 DC 08/20/25 05:10 1 TAB Calcium Gluconate 1 gm/Sodium Chloride 60 ml @ 200 mls/hr AD PRN IV HYPOCALCEMIA 08/20/25 17:00 09/19/25 16:59 08/25/25 11:27 200 MLS/HR Cefazolin Sodium (Ancef) 2 gm ONCALL IVP 08/19/25 19:30 08/21/25 08:36 DC 08/20/25 16:30 2 GM Cefazolin Sodium (Ancef) 2 gm Q8H IVPB 08/20/25 22:00 08/21/25 14:01 DC 08/21/25 13:45 2 GM Ceftriaxone Sodium (Rocephin 2gm Inj) 2 gm Q24H IVPB 08/14/25 11:30 08/24/25 11:29 DC 08/23/25 12:16 2 GM Chlordiazepoxide HCl (LIBrium 25 MG CAP) 25 mg Q2H PRN PO ALCOHOL WITHDRAWAL PROTOCOL 08/14/25 14:30 08/20/25 16:32 DC 08/16/25 23:38 25 MG Chlordiazepoxide HCl (LIBrium 25 MG CAP) 50 mg Q1H PRN PO ALCOHOL WITHDRAWAL PROTOCOL 08/14/25 14:30 08/20/25 16:32 DC Dexmedetomidine/ Sodium Chloride (PRECEdex 400MCG/ 100ML-NS) 400 mcg PROTOCOL IV 08/20/25 20:30 09/19/25 20:29 08/22/25 00:35 400 MCG Dextrose (D50w) 50 ml AD PRN IV HYPOGLYCEMIA PROTOCOL 08/20/25 17:00 09/19/25 16:59 Dextrose (D50w) 50 ml AD PRN IV HYPOGLYCEMIA PROTOCOL 08/13/25 20:00 08/20/25 22:03 DC Diphenhydramine HCl (BENAdryl INJ) 25 mg ONCE PRN IV ITCHING 08/15/25 23:00 08/17/25 22:59 DC Docusate Sodium (COLace 100MG CAP) 100 mg BID PRN PO CONSTIPATION 08/14/25 11:00 09/13/25 10:59 Dopamine HCl/ Dextrose 250 ml @ 0 mls/hr PROTOCOL IV 08/13/25 16:00 09/12/25 15:59 08/16/25 16:41 3 MLS/HR Epinephrine HCl 10 mg/Sodium Chloride 250 ml @ 14.091 mls/ hr AD PRN IV POST-OP CARDIOVASCULAR ORDERS 08/20/25 17:00 08/21/25 10:49 DC Epinephrine HCl 10 mg/Sodium Chloride 250 ml @ 0 mls/hr AD PRN IV TITRATE 08/20/25 08:00 09/19/25 07:59 08/22/25 04:22 6.8 MLS/HR Epinephrine HCl 10 mg/Sodium Chloride 250 ml @ 0 mls/hr AD PRN IV TITRATE 08/20/25 09:00 08/20/25 09:03 DC Famotidine (Pepcid 20mg Vial) 20 mg BID IV 08/20/25 21:00 08/22/25 08:20 DC 08/21/25 20:17 20 MG Famotidine (Pepcid 20mg Tab) 20 mg BID PO 08/22/25 09:00 09/21/25 08:59 08/25/25 09:23 20 MG Folic Acid (FOLic ACID 1 MG TABLET) 1 mg DAILY PO 08/15/25 09:00 08/17/25 09:01 DC 08/17/25 07:46 1 MG Furosemide (LASix 20MG VIAL) 20 mg Q12H IV 08/21/25 11:30 08/22/25 14:17 DC 08/22/25 11:53 20 MG Furosemide (LASix 20MG VIAL) 20 mg Q12H IV 08/22/25 21:00 08/23/25 11:37 DC 08/23/25 09:50 20 MG Furosemide (LASix 20MG VIAL) 40 mg Q12H IV 08/22/25 21:00 08/22/25 14:32 DC Furosemide (LASix 40MG VIAL) 40 mg Q12H IV 08/23/25 11:30 09/22/25 11:29 08/25/25 11:27 40 MG Gabapentin (NEURontin 300 MG CAP) 300 mg TID PO 08/23/25 14:00 09/22/25 13:59 08/25/25 09:22 300 MG Glucagon (Glucagon 1mg Kit) 1 mg AD PRN IM HYPOGLYCEMIA PROTOCOL 08/20/25 17:00 09/19/25 16:59 Glucagon (Glucagon 1mg Kit) 1 mg AD PRN IM HYPOGLYCEMIA PROTOCOL 08/13/25 20:00 08/21/25 10:49 DC Heparin Sodium (Porcine) (HEParin 5,000 UNIT VIAL) *calculation based on ACTUAL B... AD PRN IV HEPARIN PROTOCOL 08/13/25 16:30 08/20/25 16:32 DC 08/17/25 04:46 3,175 UNIT Heparin Sodium/ Dextrose 250 ml @ 0 mls/hr PROTOCOL IV 08/21/25 11:30 09/20/25 11:29 08/24/25 21:16 0 MLS/HR Heparin Sodium/ Dextrose 250 ml @ 0 mls/hr Q6H IV 08/13/25 16:30 08/20/25 16:32 DC 08/19/25 22:03 11.78 MLS/HR Insulin Glargine (LANtus 100 UNITS/ML 10 ML VIAL) 5 units BID@0730,2100 SQ 08/16/25 21:00 08/17/25 09:31 DC 08/16/25 21:21 5 UNITS Insulin Glargine (LANtus 100 UNITS/ML 10 ML VIAL) 10 units HS SQ 08/13/25 21:00 08/14/25 06:16 DC 08/13/25 20:21 10 UNITS Insulin Glargine (LANtus 100 UNITS/ML 10 ML VIAL) 15 units DAILY SQ 08/23/25 09:00 09/22/25 08:59 08/25/25 09:28 15 UNITS Insulin Glargine (LANtus 100 UNITS/ML 10 ML VIAL) 20 units DAILY SQ 08/14/25 09:00 08/15/25 07:24 DC 08/14/25 08:01 20 UNITS Insulin Glargine (LANtus 100 UNITS/ML 10 ML VIAL) 30 units DAILY SQ 08/15/25 09:00 08/16/25 07:19 DC 08/15/25 08:28 30 UNITS Insulin Glargine (LANtus 100 UNITS/ML 10 ML VIAL) 35 units DAILY SQ 08/16/25 09:00 08/19/25 07:35 DC 08/18/25 07:59 35 UNITS Insulin Glargine (LANtus 100 UNITS/ML 10 ML VIAL) 42 units DAILY SQ 08/19/25 09:00 08/20/25 06:22 DC 08/19/25 09:40 42 UNITS Insulin Glargine (LANtus 100 UNITS/ML 10 ML VIAL) 45 units DAILY SQ 08/20/25 09:00 08/20/25 16:32 DC Insulin Human Lispro (HumaLOG LISpro 100 UNIT/ML 3ML) INSULIN SLIDING SCAL... ACHS SQ 08/16/25 21:00 08/17/25 09:31 DC Insulin Human Regular (humuLIN R 100 UNIT/ML 3ML) 5 unit TIDAC SQ 08/14/25 17:00 08/15/25 07:24 DC 08/15/25 07:03 5 UNIT Insulin Human Regular (humuLIN R 100 UNIT/ML 3ML) 8 unit TIDAC SQ 08/15/25 07:30 08/15/25 22:46 DC 08/15/25 16:02 8 UNIT Insulin Human Regular (humuLIN R 100 UNIT/ML 3ML) 10 unit TIDAC SQ 08/16/25 07:30 08/17/25 21:12 DC 08/17/25 16:09 10 UNIT Insulin Human Regular (humuLIN R 100 UNIT/ML 3ML) 12 unit TIDAC SQ 08/18/25 07:30 08/18/25 20:19 DC 08/18/25 16:39 12 UNIT Insulin Human Regular (humuLIN R 100 UNIT/ML 3ML) 16 unit TIDAC SQ 08/19/25 07:30 08/20/25 06:22 DC 08/19/25 16:47 16 UNIT Insulin Human Regular (humuLIN R 100 UNIT/ML 3ML) 17 unit TIDAC SQ 08/20/25 07:30 08/20/25 16:32 DC Insulin Human Regular (humuLIN R 100 UNIT/ML 3ML) INSULIN SLIDING SCAL... ACHS SQ 08/17/25 16:30 08/20/25 16:32 DC 08/19/25 21:31 8 UNIT Insulin Human Regular (humuLIN R 100 UNIT/ML 3ML) INSULIN SLIDING SCAL... ACHS SQ 08/22/25 11:30 08/22/25 21:32 DC 08/22/25 20:58 3 UNIT Insulin Human Regular (humuLIN R 100 UNIT/ML 3ML) INSULIN SLIDING SCAL... ACHS SQ 08/23/25 07:30 09/22/25 07:29 08/25/25 11:28 4 UNIT Insulin Human Regular (humuLIN R 100 UNIT/ML 3ML) INSULIN SLIDING SCAL... ACHS SQ 08/13/25 16:30 08/16/25 20:46 DC 08/16/25 20:01 4 UNIT Insulin Human Regular 100 unit/ Sodium Chloride 100 ml @ 0 mls/hr AD IV 08/20/25 17:00 08/22/25 16:59 DC 08/21/25 15:00 5 MLS/HR Iron Sucrose (VenoFER) 200 mg DAILY IV 08/21/25 13:00 08/23/25 09:43 DC 08/22/25 11:53 200 MG Iron Sucrose (VenoFER) 200 mg DAILY IV 08/23/25 09:00 09/22/25 08:59 08/25/25 09:25 200 MG Lidocaine (Lidocaine Patch 4%) 1 each DAILY TP 08/19/25 09:00 09/18/25 08:59 08/25/25 09:41 1 EACH Lidocaine HCl/ Dextrose 250 ml @ 0 mls/hr PROTOCOL IV 08/21/25 00:00 09/20/25 00:00 Magnesium Sulfate 50 ml @ 12.5 mls/hr AD PRN IV MAG LEVEL LESS THAN 2.0 08/20/25 17:00 09/19/25 16:59 08/24/25 05:02 12.5 MLS/HR Magnesium Sulfate 50 ml @ 0 mls/hr PROTOCOL IV 08/13/25 16:30 08/21/25 10:49 DC 08/21/25 05:58 25 MLS/HR Morphine Sulfate (morPHINE 2MG SYG) 0.5 mg Q2H PRN IV MODERATE PAIN (4-6) 08/20/25 17:00 08/20/25 18:07 DC Morphine Sulfate (morPHINE 2MG SYG) 2 mg Q6H PRN IVP SEVERE PAIN (7-10) 08/19/25 18:00 08/20/25 16:32 DC 08/19/25 17:50 2 MG Morphine Sulfate (morPHINE 4MG SYG) 0.5 mg Q2H PRN IV MODERATE PAIN (4-6) 08/20/25 18:30 08/21/25 16:59 DC Morphine Sulfate (morPHINE 4MG SYG) 1 mg Q2H PRN IV SEVERE PAIN (7-10) 08/20/25 17:00 08/21/25 16:59 DC Morphine Sulfate (morPHINE 4MG SYG) 2 mg Q6H PRN IVP SEVERE PAIN (7-10) 08/14/25 09:30 08/19/25 12:29 DC 08/19/25 12:22 2 MG Multivitamins Therapeutic (Multivitamin Tablet) 1 tab DAILY PO 08/15/25 09:00 09/14/25 08:59 08/25/25 09:23 1 TAB Nitroglycerin/ Dextrose 0 ml @ 0 mls/hr AD IV 08/20/25 17:00 08/23/25 16:59 DC Nitroglycerin/ Dextrose 250 ml @ 0 mls/hr PROTOCOL IV 08/20/25 03:30 08/20/25 16:32 DC 08/20/25 03:12 1.5 MLS/HR Norepinephrine 250 ml @ 0 mls/hr PROTOCOL IV 08/13/25 15:30 08/20/25 08:31 DC Norepinephrine Bitartrate 250 ml @ 0 mls/hr AD PRN IV TITRATE 08/20/25 08:00 09/19/25 07:59 08/21/25 06:40 9.4 MLS/HR Norepinephrine Bitartrate 250 ml @ 0 mls/hr AD PRN IV TITRATE 08/20/25 09:00 08/20/25 09:03 DC Norepinephrine Bitartrate 8 mg/ Dextrose 250 ml @ 0 mls/hr AD PRN IV POST-OP CARDIOVASCULAR ORDERS 08/20/25 17:00 08/21/25 10:49 DC Ondansetron HCl (zoFRAN 4MG INJ) 4 mg Q4H PRN IV NAUSEA 08/14/25 14:30 08/20/25 16:32 DC 08/14/25 14:17 4 MG Ondansetron HCl (zoFRAN 4MG INJ) 4 mg Q6H PRN IV NAUSEA/VOMITING 08/20/25 17:00 09/19/25 16:59 Ondansetron HCl (zoFRAN 4MG INJ) 4 mg Q6H PRN IVP NAUSEA/VOMITING 08/13/25 16:30 08/14/25 14:08 DC Pantoprazole Sodium (PROTonix 40MG INJ) 40 mg Q12H IVP 08/17/25 16:30 08/20/25 16:32 DC 08/20/25 03:53 40 MG Pantoprazole Sodium (PROTonix 40MG INJ) 40 mg Q24H IVP 08/13/25 16:30 08/17/25 11:10 DC 08/16/25 16:07 40 MG Pharmacy Profile Note (Pharmacy Communication) 1 each PROTOCOL PRN MISC ETOH Withdrawal Score changes 08/14/25 14:30 08/14/25 14:08 DC Polyethylene Glycol (MIRalax 3350 17 GM POWD.[email or web address]) 17 gm DAILY PO 08/15/25 09:00 09/14/25 08:59 08/24/25 09:35 17 GM Potassium Phosphate 250 ml @ 42 mls/hr AD PRN IV LOW PHOS LEVEL 08/20/25 17:00 09/19/25 16:59 Potassium Chloride 100 ml @ 100 mls/hr AD PRN IV HYPOKALEMIA 08/20/25 17:00 09/19/25 16:59 08/25/25 02:11 100 MLS/HR Potassium Chloride 100 ml @ 100 mls/hr AD PRN IV POTASSIUM PROTOCOL 08/13/25 16:30 08/20/25 16:32 DC 08/16/25 16:07 100 MLS/HR Potassium Chloride (K-Dur/Klor-Con 20meq) 20 meq AD PRN PO POTASSIUM PROTOCOL 08/13/25 16:30 08/20/25 16:32 DC 08/15/25 08:23 20 MEQ Potassium Chloride (KCl 10% Elixir 20meq/15ml) 20 meq AD PRN PO POTASSIUM PROTOCOL 08/13/25 16:30 08/20/25 16:32 DC Promethazine HCl (Phenergan) 25 mg Q6H PRN PO NAUSEA 08/14/25 14:30 08/20/25 16:32 DC Propofol 100 ml @ 0 mls/hr AD PRN IV SEDATION 08/20/25 17:00 08/24/25 17:00 DC Sodium Bicarbonate 25 meq/Dextrose 1,000 ml @ 0 mls/hr Q0M IV 08/14/25 00:30 09/13/25 00:29 08/20/25 23:15 50 MLS/HR Sodium Bicarbonate 25 meq/Dextrose 1,000 ml @ 0 mls/hr Q0M IVP 08/14/25 00:30 08/14/25 00:15 DC Sodium Bicarbonate (Sodium Bicarb 50meq 50ml Vial) 50 meq AD PRN IV OTHER[SEE DOSING INSTRUCTIONS] 08/20/25 17:00 08/23/25 16:59 DC 08/21/25 01:19 50 MEQ Sodium Chloride 500 ml @ 500 mls/hr Q1H IV 08/20/25 00:33 08/20/25 03:16 DC 08/20/25 00:53 500 MLS/HR Sodium Chloride 500 ml @ 0 mls/hr AD IV 08/20/25 17:00 09/19/25 16:59 Sodium Chloride 1,000 ml @ 10 mls/hr ONCE IV 08/20/25 17:00 08/21/25 16:59 DC 08/20/25 22:31 10 MLS/HR Sodium Chloride (NS Flush 10ml) 10 ml Q8H PRN IVP IV LINE FLUSH 08/20/25 17:00 09/19/25 16:59 Thiamine HCl (Vitamin B-1) 300 mg DAILY IV 08/15/25 09:00 08/17/25 09:01 DC 08/17/25 07:46 300 MG Ticagrelor (BRILinta) 90 mg BID PO 08/14/25 09:00 08/14/25 21:19 DC 08/14/25 20:09 90 MG Tramadol HCl (UltRAM) 25 mg Q6H PRN PO MODERATE PAIN (4-6) 08/20/25 17:00 08/25/25 16:59 Tramadol HCl (UltRAM) 50 mg Q6H PRN PO SEVERE PAIN (7-10) 08/20/25 17:00 08/25/25 16:59 08/25/25 09:24 50 MG Vancomycin HCl 250 ml @ 125 mls/hr Q12H IV 08/18/25 09:00 08/19/25 20:54 DC 08/19/25 09:39 125 MLS/HR Vancomycin HCl 250 ml @ 125 mls/hr Q12H IV 08/24/25 23:00 09/03/25 22:59 08/25/25 11:26 125 MLS/HR Vancomycin HCl 250 ml @ 125 mls/hr Q8H IV 08/19/25 21:30 08/21/25 00:23 DC 08/20/25 22:26 125 MLS/HR Vancomycin HCl 250 ml @ 125 mls/hr Q8H IV 08/21/25 06:30 08/21/25 08:35 DC 08/21/25 08:15 125 MLS/HR Vancomycin HCl 250 ml @ 125 mls/hr Q8H IV 08/21/25 08:00 08/21/25 06:28 DC Vancomycin HCl 250 ml @ 125 mls/hr Q8H IV 08/21/25 16:30 08/24/25 16:54 DC 08/24/25 09:32 125 MLS/HR Vancomycin HCl (Vancomycin Protocol) 1 each AD IV 08/17/25 22:00 08/31/25 21:59 DIAGNOSTICS / RADIOLOGY: [ ] ASSESSMENT: Cardiogenic shock with lactic acidosis, POA NSTEMI/ACS, POA Complete heart block, POA History of multivessel coronary artery disease, POA History of cocaine use disorder, POA Severe nonketotic hyperglycemia, POA History of to poorly controlled type 2 diabetes mellitus, POA Lactic acidosis, POA History of anemia, POA History of gastritis, POA History of hypertension, POA History of PTSD/anxiety, POA Obesity, POA Medical noncompliance, POA PLAN: PATIENT IS SEEN AND EXAMINED AT BEDSIDE, DISCUSSED WITH THE RN, NO ACUTE EVENTS OVERNIGHT, PATIENT FOLLOWING COMMANDS, SHE REMAINS WITH THE IMPELLA SUPPORT, CH EST TUBE IN PLACE, POSTOPERATIVE DAY FIVE, STATUS POST CABG. CURRENTLY OFF PRESSORS, ON HEPARIN DRIP. CONTINUE TO FOLLOW CRITICAL CARE AND CARDIOTHORACIC INPUT AND RECOMMENDATIONS. POSSIBLE REMOVAL OF IMPELLA SUPPORT TODAY. NEURO: MINIMIZE CENTRAL ACTING MEDICATIONS POSSIBLE. FALL PRECAUTIONS. WELL LIGHTED ROOM THROUGH THE DAY AND MINIMIZE INTERRUPTIONS THROUGH THE NIGHT T O PREVENT ACUTE DELIRIUM. PULMONARY: SUPPLEMENTAL 02 NEEDED BIPAP NECESSARY, FOR RESPIRATORY DISTRESS TITRATE FIO2 TO KEEP SPO2 > OR = 90% DUONEBS AND CPT NEEDED IS HOURLY WHILE AWAKE FOR PULMONARY HYGIENE PRN OUT OF BED TO CHAIR TOLERATED MAINTAIN ASPIRATION PRECAUTIONS AT ALL TIMES CARDIOVASCULAR: FOLLOW HEMODYNAMICS. VITAL SIGNS PER FACILITY PROTOCOL GI & NUTRITION: CONTINUE NUTRITIONAL SUPPORT ASPIRATIONS PRECAUTIONS PROKINETIC AGENTS AND LAXATIVES NEEDED KIDNEYS & ELECTROLYTES: STRICT MONITORING OF INTAKE AND OUTPUT DAILY WEIGHTS AVOID NEPHROTOXIC AGENTS MONITOR ELECTROLYTES AND REPLACE NEEDED GOAL URINE OUTPUT OF 30ML/HR OR 0.5ML/KG/HR MEDICATIONS TO BE DOSED ACCORDING TO RENAL FUNCTION. AVOID CONTRAST IF POSSIBLE ENDOCRINE: MAINTAIN BLOOD GLUCOSE BETWEEN 100-180 AT ALL TIMES. INSULIN SLIDING SCALE FOR BLOOD GLUCOSE MANAGEMENT HYPOGLYCEMIA AND HYPERGLYCEMIA PROTOCOL IN PLACE INFECTIOUS DISEASE: TREND TEMPERATURE, WBC AND PROCALCITONIN LEVEL FOLLOW CULTURES, DEESCALATE ANTIBIOTICS SOON POSSIBLE. PANCULTURE IF NEW ONSET FEVER HEMATOLOGY & COAGULATION: MONITOR H&H. KEEP HGB > 7 TRANSFUSE 1 UNIT OF PRBC FOR HGB < 7 TRANSFUSE 1 PACK OF PLATELETS OF PLATELETS < 20, 000 WATCH FOR ANY SIGNS AND SYMPTOMS OF BLEEDING SKIN: PRESSURE ULCER PREVENTION PER FACILITY PROTOCOL SPECIALTY MATTRESS NEEDED ORTHO/REHAB CONTINUE PT/OT PRN: MEDICATIONS TYLENOL 650 MG PO EVERY 4 HRS FOR FEVER ZOFRAN 4 MG IV EVERY 6 HRS FOR N/V HYDRALAZINE 5 MG IV EVERY 4 HRS SYSTOLIC PRESSURE > 160 BOWEL REGIMENT: LACTULOSE 20 GM PO BID PRN CONSTIPATION SUPPORTIVE MEASURES: CONTINUE GI AND DVT PROPHYLAXIS DISPOSITION: PENDING IMPROVEMENT IN CLINICAL CONDITION ALL QUESTIONS ANSWERED TIME SPENT: > 35 MIN GEE MARTIN MD Aug 25, 2025 12:42
[2025-08-25 15:25] LABS: CREATININE 0.8 mg/dL (0.5-1.0); GLOMERULAR FILTR. RATE CALC 85.0 mL/min (>90); GLUCOSE,RANDOM 182.0 mg/dL (70-105); SODIUM SERUM 139.0 mmol/L (136-145); UREA NITROGEN, BLOOD 16.0 mg/dL (7-18)
--- NOTE | 2025-08-25 21:50 | PN ---
Endocrinology progress note DOS: 08/25/25 subjective: Home diabetic regimen: metformin 500 mg bid Hba1c 10.7% glucose runs less than 180 mg/dl. patient is s/p CABG PAST MEDICAL HISTORY: Coronary artery disease with history of abnormal coronary CT angiography, gastritis, anemia, cocaine use disorder, obesity, PTSD, anxiety disorder, history of NSTEMI in 04/2025, history of CVA in 2008 PAST SURGICAL HISTORY: History of ventral hernia repair 2008, hx of cholecystectomy, hx of C Section PAST SOCIAL HISTORY: Denies active alcohol consumption, intermittently smokes cigarettes as well as has been using cocaine chronically FAMILY HISTORY: Reports family history of heart disease Home medications: Patient does not have list of home medications, family will be bringing list of home medications to be updated Allergies: Patient has allergic reaction to lisinopril Coded Allergies: No Known Drug Allergies (Verified Allergy, Unknown, 05/04/22) lisinopril (Verified Allergy, Unknown, 05/04/22) DIAGNOSTICS / RADIOLOGY: SERVICE 1425 REASON: cp ORDERING PHYSICIAN: ZORA OCHOA MD PROCEDURE: CXR1VW - CHEST 1VW EXAM: CR Chest, 1 View. CLINICAL HISTORY: cp COMPARISON: 07/08/25 FINDINGS: LUNGS: The lungs show no infiltrate or other acute finding. PLEURAL SPACES: No pleural effusion or pneumothorax. MEDIASTINUM: The cardiomediastinal silhouette is within normal limits. BONES: No aggressive appearing osseous lesion seen. IMPRESSION: No acute cardiopulmonary pathology is evident. /[place] DICTATED BY: BELKIS KURTZ MD DATE: 08/13/251731 ELECTRONICALLY SIGNED BY: BELKIS KURTZ MD DATE: 08/13/251731 ASSESSMENT: uncontrolled DM-2 Home diabetic regimen: metformin 500 mg bid Hba1c 10.7% glucose runs less than 180 mg/dl. off insulin drip now and on low dose ssi and low dose lantus insulin. Cardiogenic shock with lactic acidosis, POA cardiology following, s/p CABG procedure. NSTEMI/ACS, POA Complete heart block, POA History of multivessel coronary artery disease, POA History of cocaine use disorder, POA Lactic acidosis, POA History of anemia, POA History of gastritis, POA History of hypertension, POA History of PTSD/anxiety, POA Obesity, POA Medical noncompliance, POA PLAN: continue Lantus 15 units daily and adjust for fasting glucose. start Regular insulin 5 units three times before meals if glucose are high after meals. continue medium dose sliding scale insulin. Monitor glucose q x 6 hourly. Continue carb consistent diet. Keep glucose less than 180 mg/dl. Patient will need insulin at discharge. Vitals/Labs Vital Signs Date Time Temp Pulse Resp B/P (MAP) Pulse Ox O2 Delivery O2 Flow Rate FiO2 08/25/25 21:09 80 22 94/50 (65) 98 100/76 (84) 08/25/25 20:00 97.9 08/25/25 20:00 Nasal Cannula* 3 32 Laboratory Tests 08/25/25 02:05 08/25/25 02:37 08/25/25 15:14 Medications Current Medications Ondansetron HCl 4 mg ONCE ONCE IVP; Start 08/13/25 at 14:30; Stop 08/13/25 at 14:52; Status DC Sodium Chloride 500 ml @ 0 mls/hr ONCE ONCE IV Last administered on 08/13/25at 15:00; Start 08/13/25 at 14:30; Stop 08/13/25 at 14:31; Status DC Heparin Sodium (Porcine) *calculation based on ACTUAL B... AD PRN IV Last administered on 08/17/25at 04:46; Start 08/13/25 at 16:30; Stop 08/20/25 at 16:32; Status DC Heparin Sodium/ Dextrose 250 ml @ 0 mls/hr Q6H IV Last administered on 08/19/25at 22:03; Start 08/13/25 at 16:30; Stop 08/20/25 at 16:32; Status DC Norepinephrine 250 ml @ 0 mls/hr PROTOCOL IV; Start 08/13/25 at 15:30; Stop 08/20/25 at 08:31; Status DC Dopamine HCl/ Dextrose 250 ml @ As Directed STK-MED ONCE IV; Start 08/13/25 at 15:33; Stop 08/13/25 at 15:33; Status DC Aspirin 325 mg STK-MED ONCE .ROUTE; Start 08/13/25 at 15:34; Stop 08/13/25 at 15:33; Status DC Ticagrelor 180 mg ONCE ONCE PO Last administered on 08/13/25at 16:16; Start 08/13/25 at 16:00; Stop 08/13/25 at 16:01; Status DC Morphine Sulfate 1 mg ONCE ONCE IVP Last administered on 08/13/25at 16:23; Start 08/13/25 at 16:00; Stop 08/13/25 at 16:01; Status DC Ticagrelor 90 mg STK-MED ONCE .ROUTE; Start 08/13/25 at 15:50; Stop 08/13/25 at 15:50; Status DC Dopamine HCl/ Dextrose 250 ml @ 0 mls/hr PROTOCOL IV Last administered on 08/16/25at 16:41; Start 08/13/25 at 16:00; Stop 09/12/25 at 15:59 Aspirin 325 mg ONCE ONCE PO Last administered on 08/13/25at 16:15; Start 08/13/25 at 16:00; Stop 08/13/25 at 16:01; Status DC Lidocaine HCl 20 ml STK-MED ONCE .ROUTE; Start 08/13/25 at 16:12; Stop 08/13/25 at 16:12; Status DC Iohexol 35,000 mg STK-MED ONCE IV; Start 08/13/25 at 16:12; Stop 08/13/25 at 16:12; Status DC Heparin Sodium (Porcine) 10,000 unit STK-MED ONCE .ROUTE; Start 08/13/25 at 16:12; Stop 08/13/25 at 16:12; Status DC Nicardipine HCl 25 mg STK-MED ONCE IV; Start 08/13/25 at 16:12; Stop 08/13/25 at 16:12; Status DC Heparin Sodium/ Sodium Chloride 1,000 ml @ As Directed STK-MED ONCE IV; Start 08/13/25 at 16:12; Stop 08/13/25 at 16:12; Status DC Nitroglycerin 50 mg STK-MED ONCE .ROUTE; Start 08/13/25 at 16:12; Stop 08/13/25 at 16:12; Status DC Pantoprazole Sodium 40 mg Q24H IVP Last administered on 08/16/25at 16:07; Start 08/13/25 at 16:30; Stop 08/17/25 at 11:10; Status DC Insulin Human Regular INSULIN SLIDING SCAL... ACHS SQ Last administered on 08/16/25at 20:01; Start 08/13/25 at 16:30; Stop 08/16/25 at 20:46; Status DC Insulin Human Regular 5 unit ONCE ONCE IV; Start 08/13/25 at 16:30; Stop 08/13/25 at 16:31; Status DC Fentanyl Citrate 100 mcg STK-MED ONCE .ROUTE; Start 08/13/25 at 16:26; Stop 08/13/25 at 16:26; Status DC Midazolam HCl 2 mg STK-MED ONCE .ROUTE; Start 08/13/25 at 16:27; Stop 08/13/25 at 16:27; Status DC Acetaminophen 650 mg Q6H PRN PO Last administered on 08/23/25at 11:01; Start 08/13/25 at 16:30; Stop 09/12/25 at 16:29 Ondansetron HCl 4 mg Q6H PRN IVP; Start 08/13/25 at 16:30; Stop 08/14/25 at 14:08; Status DC Potassium Chloride 100 ml @ 100 mls/hr AD PRN IV Last administered on 08/16/25at 16:07; Start 08/13/25 at 16:30; Stop 08/20/25 at 16:32; Status DC Potassium Chloride 20 meq AD PRN PO; Start 08/13/25 at 16:30; Stop 08/20/25 at 16:32; Status DC Potassium Chloride 20 meq AD PRN PO Last administered on 08/15/25at 08:23; Start 08/13/25 at 16:30; Stop 08/20/25 at 16:32; Status DC Magnesium Sulfate 50 ml @ 0 mls/hr PROTOCOL IV Last administered on 08/21/25at 05:58; Start 08/13/25 at 16:30; Stop 08/21/25 at 10:49; Status DC Atorvastatin Calcium 40 mg HS PO Last administered on 08/25/25at 20:50; Start 08/13/25 at 21:00; Stop 09/12/25 at 20:59 Heparin Sodium/ Sodium Chloride 500 ml @ As Directed STK-MED ONCE IV; Start 08/13/25 at 17:14; Stop 08/13/25 at 17:14; Status DC Heparin Sodium (Porcine) 10,000 unit STK-MED ONCE .ROUTE; Start 08/13/25 at 18:03; Stop 08/13/25 at 18:03; Status DC Aspirin 81 mg DAILY PO Last administered on 08/25/25at 09:22; Start 08/14/25 at 09:00; Stop 09/13/25 at 08:59 Insulin Glargine 10 units HS SQ Last administered on 08/13/25at 20:21; Start 08/13/25 at 21:00; Stop 08/14/25 at 06:16; Status DC Dextrose 50 ml AD PRN IV; Start 08/13/25 at 20:00; Stop 08/20/25 at 22:03; Status DC Glucagon 1 mg AD PRN IM; Start 08/13/25 at 20:00; Stop 08/21/25 at 10:49; Status DC Sodium Bicarbonate 25 meq/Dextrose 1,000 ml @ 0 mls/hr Q0M IVP; Start 08/14/25 at 00:30; Stop 08/14/25 at 00:15; Status DC Sodium Bicarbonate 25 meq/Dextrose 1,000 ml @ 0 mls/hr Q0M IV Last administered on 08/20/25at 23:15; Start 08/14/25 at 00:30; Stop 09/13/25 at 00:29 Glycerin 1 supp ONCE ONCE RC Last administered on 08/14/25at 05:56; Start 08/14/25 at 05:00; Stop 08/14/25 at 05:06; Status DC Insulin Glargine 20 units DAILY SQ Last administered on 08/14/25at 08:01; Start 08/14/25 at 09:00; Stop 08/15/25 at 07:24; Status DC Ticagrelor 90 mg BID PO Last administered on 08/14/25at 20:09; Start 08/14/25 at 09:00; Stop 08/14/25 at 21:19; Status DC Morphine Sulfate 2 mg Q6H PRN IVP Last administered on 08/19/25at 12:22; Start 08/14/25 at 09:30; Stop 08/19/25 at 12:29; Status DC Polyethylene Glycol 17 gm DAILY PO Last administered on 08/24/25at 09:35; Start 08/15/25 at 09:00; Stop 09/14/25 at 08:59 Docusate Sodium 100 mg BID PRN PO; Start 08/14/25 at 11:00; Stop 09/13/25 at 10:59 Ceftriaxone Sodium 2 gm Q24H IVPB Last administered on 08/23/25at 12:16; Start 08/14/25 at 11:30; Stop 08/24/25 at 11:29; Status DC Insulin Human Regular 5 unit TIDAC SQ Last administered on 08/15/25at 07:03; Start 08/14/25 at 17:00; Stop 08/15/25 at 07:24; Status DC Chlordiazepoxide HCl 25 mg Q2H PRN PO Last administered on 08/16/25at 23:38; Start 08/14/25 at 14:30; Stop 08/20/25 at 16:32; Status DC Chlordiazepoxide HCl 50 mg Q1H PRN PO; Start 08/14/25 at 14:30; Stop 08/20/25 at 16:32; Status DC Ondansetron HCl 4 mg Q4H PRN IV Last administered on 08/14/25at 14:17; Start 08/14/25 at 14:30; Stop 08/20/25 at 16:32; Status DC Promethazine HCl 25 mg Q6H PRN PO; Start 08/14/25 at 14:30; Stop 08/20/25 at 16:32; Status DC Acetaminophen 500 mg Q6H PRN PO Last administered on 08/20/25at 08:23; Start 08/14/25 at 14:30; Stop 09/13/25 at 14:29 Thiamine HCl 300 mg DAILY IV Last administered on 08/17/25at 07:46; Start 08/15/25 at 09:00; Stop 08/17/25 at 09:01; Status DC Folic Acid 1 mg DAILY PO Last administered on 08/17/25at 07:46; Start 08/15/25 at 09:00; Stop 08/17/25 at 09:01; Status DC Multivitamins Therapeutic 1 tab DAILY PO Last administered on 08/25/25at 09:23; Start 08/15/25 at 09:00; Stop 09/14/25 at 08:59 Pharmacy Profile Note 1 each PROTOCOL PRN MISC; Start 08/14/25 at 14:30; Stop 08/14/25 at 14:08; Status DC Insulin Glargine 30 units DAILY SQ Last administered on 08/15/25at 08:28; Start 08/15/25 at 09:00; Stop 08/16/25 at 07:19; Status DC Insulin Human Regular 8 unit TIDAC SQ Last administered on 08/15/25at 16:02; Start 08/15/25 at 07:30; Stop 08/15/25 at 22:46; Status DC Diphenhydramine HCl 25 mg ONCE ONCE IM; Start 08/15/25 at 21:00; Stop 08/15/25 at 22:52; Status DC Insulin Human Regular 10 unit TIDAC SQ Last administered on 08/17/25at 16:09; Start 08/16/25 at 07:30; Stop 08/17/25 at 21:12; Status DC Diphenhydramine HCl 25 mg ONCE PRN IV; Start 08/15/25 at 23:00; Stop 08/17/25 at 22:59; Status DC Insulin Glargine 35 units DAILY SQ Last administered on 08/18/25at 07:59; Start 08/16/25 at 09:00; Stop 08/19/25 at 07:35; Status DC Bisacodyl 10 mg DAILY RC Last administered on 08/18/25at 07:58; Start 08/17/25 at 09:00; Stop 08/20/25 at 08:59; Status DC Insulin Human Lispro INSULIN SLIDING SCAL... ACHS SQ; Start 08/16/25 at 21:00; Stop 08/17/25 at 09:31; Status DC Insulin Glargine 5 units BID@0730,2100 SQ Last administered on 08/16/25at 21:21; Start 08/16/25 at 21:00; Stop 08/17/25 at 09:31; Status DC Pantoprazole Sodium 40 mg Q12H IVP Last administered on 08/20/25at 03:53; Start 08/17/25 at 16:30; Stop 08/20/25 at 16:32; Status DC Insulin Human Regular INSULIN SLIDING SCAL... ACHS SQ Last administered on 08/19/25at 21:31; Start 08/17/25 at 16:30; Stop 08/20/25 at 16:32; Status DC Insulin Human Regular 12 unit TIDAC SQ Last administered on 08/18/25at 16:39; Start 08/18/25 at 07:30; Stop 08/18/25 at 20:19; Status DC Vancomycin HCl 1 each AD IV; Start 08/17/25 at 22:00; Stop 08/31/25 at 21:59 Vancomycin HCl 250 ml @ 83.333 mls/ hr ONCE ONCE IV Last administered on 08/17/25at 23:05; Start 08/17/25 at 22:30; Stop 08/18/25 at 01:29; Status DC Vancomycin HCl 250 ml @ 125 mls/hr Q12H IV Last administered on 08/19/25at 09:39; Start 08/18/25 at 09:00; Stop 08/19/25 at 20:54; Status DC Albumin Human 50 ml @ 0 mls/hr BID IV Last administered on 08/22/25at 20:56; Start 08/18/25 at 09:00; Stop 08/23/25 at 08:59; Status DC Lidocaine 1 each DAILY TP Last administered on 08/25/25at 09:41; Start 08/19/25 at 09:00; Stop 09/18/25 at 08:59 Lidocaine 1 each ONCE ONCE TP Last administered on 08/18/25at 13:52; Start 08/18/25 at 14:00; Stop 08/18/25 at 14:01; Status DC Diphenhydramine HCl 25 mg ONCE ONCE PO Last administered on 08/18/25at 15:19; Start 08/18/25 at 15:30; Stop 08/18/25 at 15:31; Status DC Insulin Human Regular 16 unit TIDAC SQ Last administered on 08/19/25at 16:47; Start 08/19/25 at 07:30; Stop 08/20/25 at 06:22; Status DC Insulin Glargine 42 units DAILY SQ Last administered on 08/19/25at 09:40; Start 08/19/25 at 09:00; Stop 08/20/25 at 06:22; Status DC Calcium Carbonate 500 tab QID PRN PO Last administered on 08/20/25at 05:10; Start 08/19/25 at 12:00; Stop 08/20/25 at 16:32; Status DC Morphine Sulfate 2 mg Q6H PRN IVP Last administered on 08/19/25at 17:50; Start 08/19/25 at 18:00; Stop 08/20/25 at 16:32; Status DC Cefazolin Sodium 2 gm ONCALL IVP Last administered on 08/20/25at 16:30; Start 08/19/25 at 19:30; Stop 08/21/25 at 08:36; Status DC Vancomycin HCl 250 ml @ 125 mls/hr Q8H IV Last administered on 08/20/25at 22:26; Start 08/19/25 at 21:30; Stop 08/21/25 at 00:23; Status DC Sodium Chloride 500 ml @ 500 mls/hr Q1H IV Last administered on 08/20/25at 00:53; Start 08/20/25 at 00:33; Stop 08/20/25 at 03:16; Status DC Nitroglycerin/ Dextrose 250 ml @ 0 mls/hr PROTOCOL IV Last administered on 08/20/25at 03:12; Start 08/20/25 at 03:30; Stop 08/20/25 at 16:32; Status DC Insulin Glargine 45 units DAILY SQ; Start 08/20/25 at 09:00; Stop 08/20/25 at 16:32; Status DC Insulin Human Regular 17 unit TIDAC SQ; Start 08/20/25 at 07:30; Stop 08/20/25 at 16:32; Status DC Epinephrine HCl 10 mg/Sodium Chloride 250 ml @ 0 mls/hr AD PRN IV Last administered on 08/22/25at 04:22; Start 08/20/25 at 08:00; Stop 09/19/25 at 07:59 Norepinephrine Bitartrate 250 ml @ 0 mls/hr AD PRN IV Last administered on 08/21/25at 06:40; Start 08/20/25 at 08:00; Stop 09/19/25 at 07:59 Aminocaproic Acid 06875 mg/Sodium Chloride 480 ml @ 0 mls/hr AD PRN IV; Start 08/20/25 at 08:00; Stop 09/19/25 at 07:59 Cefazolin Sodium 1 gm STK-MED ONCE .ROUTE; Start 08/20/25 at 08:23; Stop 08/20/25 at 08:23; Status DC Heparin Sodium/ Sodium Chloride 500 ml @ As Directed STK-MED ONCE IV; Start 08/20/25 at 08:23; Stop 08/20/25 at 08:24; Status DC Papaverine HCl 60 mg STK-MED ONCE .ROUTE Last administered on 08/20/25at 17:05; Start 08/20/25 at 08:23; Stop 08/20/25 at 08:24; Status DC Epinephrine HCl 10 mg/Sodium Chloride 250 ml @ 0 mls/hr AD PRN IV; Start 08/20/25 at 09:00; Stop 08/20/25 at 09:03; Status DC Norepinephrine Bitartrate 250 ml @ 0 mls/hr AD PRN IV; Start 08/20/25 at 09:00; Stop 08/20/25 at 09:03; Status DC Aminocaproic Acid 66710 mg/Sodium Chloride 480 ml @ 0 mls/hr AD PRN IV; Start 08/20/25 at 09:00; Stop 08/20/25 at 09:03; Status DC Protamine Sulfate 250 mg STK-MED ONCE IV; Start 08/20/25 at 15:44; Stop 08/20/25 at 15:44; Status DC Lidocaine HCl 100 mg STK-MED ONCE .ROUTE; Start 08/20/25 at 15:44; Stop 08/20/25 at 15:44; Status DC Heparin Sodium (Porcine) 10,000 unit STK-MED ONCE .ROUTE; Start 08/20/25 at 15:44; Stop 08/20/25 at 15:44; Status DC Epinephrine HCl 1 mg STK-MED ONCE .ROUTE; Start 08/20/25 at 15:44; Stop 08/20/25 at 15:44; Status DC Sodium Bicarbonate 200 ml @ As Directed STK-MED ONCE .ROUTE; Start 08/20/25 at 15:44; Stop 08/20/25 at 15:44; Status DC Norepinephrine Bitartrate 4 mg STK-MED ONCE IV; Start 08/20/25 at 15:44; Stop 08/20/25 at 15:44; Status DC Propofol 200 mg STK-MED ONCE IV; Start 08/20/25 at 15:45; Stop 08/20/25 at 15:44; Status DC Fentanyl Citrate 1,000 mcg STK-MED ONCE IJ; Start 08/20/25 at 15:45; Stop 08/20/25 at 15:45; Status DC Midazolam HCl 2 mg STK-MED ONCE .ROUTE; Start 08/20/25 at 15:45; Stop 08/20/25 at 15:45; Status DC Rocuronium [place] 50 mg STK-MED ONCE .ROUTE; Start 08/20/25 at 15:45; Stop 08/20/25 at 15:45; Status DC Sodium Bicarbonate 400 ml @ As Directed STK-MED ONCE .ROUTE; Start 08/20/25 at 15:46; Stop 08/20/25 at 15:46; Status DC Cefazolin Sodium 1 gm STK-MED ONCE .ROUTE Last administered on 08/20/25at 17:05; Start 08/20/25 at 16:19; Stop 08/20/25 at 16:19; Status DC Vancomycin HCl 250 ml @ As Directed STK-MED ONCE IV Last administered on 08/20/25at 16:40; Start 08/20/25 at 16:40; Stop 08/20/25 at 16:40; Status DC Sodium Chloride 1,000 ml @ 10 mls/hr ONCE IV Last administered on 08/20/25at 22:31; Start 08/20/25 at 17:00; Stop 08/21/25 at 16:59; Status DC Sodium Chloride 10 ml Q8H PRN IVP; Start 08/20/25 at 17:00; Stop 09/19/25 at 16:59 Morphine Sulfate 0.5 mg Q2H PRN IV; Start 08/20/25 at 17:00; Stop 08/20/25 at 18:07; Status DC Morphine Sulfate 1 mg Q2H PRN IV; Start 08/20/25 at 17:00; Stop 08/21/25 at 16:59; Status DC Acetaminophen 650 mg Q4H PRN RC; Start 08/20/25 at 17:00; Stop 09/19/25 at 16:59 Ondansetron HCl 4 mg Q6H PRN IV; Start 08/20/25 at 17:00; Stop 09/19/25 at 16:59 Sodium Chloride 500 ml @ 0 mls/hr AD IV; Start 08/20/25 at 17:00; Stop 09/19/25 at 16:59 Nitroglycerin/ Dextrose 0 ml @ 0 mls/hr AD IV; Start 08/20/25 at 17:00; Stop 08/23/25 at 16:59; Status DC Propofol 100 ml @ 0 mls/hr AD PRN IV; Start 08/20/25 at 17:00; Stop 08/24/25 at 17:00; Status DC Norepinephrine Bitartrate 8 mg/ Dextrose 250 ml @ 0 mls/hr AD PRN IV; Start 08/20/25 at 17:00; Stop 08/21/25 at 10:49; Status DC Epinephrine HCl 10 mg/Sodium Chloride 250 ml @ 14.091 mls/ hr AD PRN IV; Start 08/20/25 at 17:00; Stop 08/21/25 at 10:49; Status DC Aminocaproic Acid 95381 mg/Sodium Chloride 310 ml @ 25 mls/hr AD IV; Start 08/20/25 at 17:00; Stop 08/21/25 at 05:23; Status DC Calcium Gluconate 1 gm/Sodium Chloride 60 ml @ 200 mls/hr AD PRN IV Last administered on 08/25/25at 11:27; Start 08/20/25 at 17:00; Stop 09/19/25 at 16:59 Magnesium Sulfate 50 ml @ 12.5 mls/hr AD PRN IV Last administered on 08/24/25at 05:02; Start 08/20/25 at 17:00; Stop 09/19/25 at 16:59 Potassium Chloride 100 ml @ 100 mls/hr AD PRN IV Last administered on 08/25/25at 02:11; Start 08/20/25 at 17:00; Stop 09/19/25 at 16:59 Potassium Phosphate 250 ml @ 42 mls/hr AD PRN IV; Start 08/20/25 at 17:00; Stop 09/19/25 at 16:59 Albumin Human 250 ml @ 0 mls/hr AD PRN IV Last administered on 08/20/25at 22:46; Start 08/20/25 at 17:00; Stop 08/20/25 at 22:46; Status DC Acetaminophen 650 mg Q4H PRN PO; Start 08/20/25 at 17:00; Stop 09/19/25 at 16:59 Insulin Human Regular 100 unit/ Sodium Chloride 100 ml @ 0 mls/hr AD IV Last administered on 08/21/25at 15:00; Start 08/20/25 at 17:00; Stop 08/22/25 at 16:59; Status DC Cefazolin Sodium 2 gm Q8H IVPB Last administered on 08/21/25at 13:45; Start 08/20/25 at 22:00; Stop 08/21/25 at 14:01; Status DC Tramadol HCl 25 mg Q6H PRN PO; Start 08/20/25 at 17:00; Stop 08/25/25 at 16:59; Status DC Tramadol HCl 50 mg Q6H PRN PO Last administered on 08/25/25at 09:24; Start 08/20/25 at 17:00; Stop 08/25/25 at 16:59; Status DC Famotidine 20 mg BID IV Last administered on 08/21/25at 20:17; Start 08/20/25 at 21:00; Stop 08/22/25 at 08:20; Status DC Sodium Bicarbonate 50 meq AD PRN IV Last administered on 08/21/25at 01:19; Start 08/20/25 at 17:00; Stop 08/23/25 at 16:59; Status DC Dextrose 50 ml AD PRN IV; Start 08/20/25 at 17:00; Stop 09/19/25 at 16:59 Glucagon 1 mg AD PRN IM; Start 08/20/25 at 17:00; Stop 09/19/25 at 16:59 Amiodarone HCL/ Dextrose 100 ml @ As Directed STK-MED ONCE .ROUTE; Start 08/20/25 at 16:52; Stop 08/20/25 at 16:52; Status DC Lidocaine HCl 100 mg STK-MED ONCE .ROUTE; Start 08/20/25 at 17:34; Stop 08/20/25 at 17:34; Status DC Morphine Sulfate 0.5 mg Q2H PRN IV; Start 08/20/25 at 18:30; Stop 08/21/25 at 16:59; Status DC Heparin Sodium (Porcine) 10,000 unit STK-MED ONCE .ROUTE; Start 08/20/25 at 18:12; Stop 08/20/25 at 18:12; Status DC Insulin Human Regular 300 unit STK-MED ONCE .ROUTE; Start 08/20/25 at 19:39; Stop 08/20/25 at 19:39; Status DC Dexmedetomidine/ Sodium Chloride 400 mcg PROTOCOL IV Last administered on 08/22/25at 00:35; Start 08/20/25 at 20:30; Stop 09/19/25 at 20:29 Magnesium Sulfate 8.12 meq STK-MED ONCE IJ; Start 08/20/25 at 20:17; Stop 08/20/25 at 20:17; Status DC Vasopressin 20 units STK-MED ONCE .ROUTE; Start 08/20/25 at 20:17; Stop 08/20/25 at 20:17; Status DC Amiodarone HCl 360 mg/Dextrose 207.2 ml @ 33.3 mls/hr AD IV; Start 08/20/25 at 21:00; Stop 08/20/25 at 21:05; Status DC Amiodarone HCl 540 mg/Dextrose 310.8 ml @ 16.7 mls/hr [id number] IV Last administered on 08/21/25at 20:12; Start 08/21/25 at 03:00; Stop 09/20/25 at 02:59 Amiodarone HCL/ Dextrose 207.2 ml @ 33.3 mls/hr AD IV Last administered on 08/20/25at 21:24; Start 08/20/25 at 21:30; Stop 08/21/25 at 10:49; Status DC Albumin Human 250 ml @ 0 mls/hr ONCE ONCE IV Last administered on 08/20/25at 00:00; Start 08/20/25 at 00:00; Stop 08/20/25 at 23:58; Status DC Lidocaine HCl/ Dextrose 250 ml @ 0 mls/hr PROTOCOL IV; Start 08/21/25 at 00:00; Stop 09/20/25 at 00:00 Albumin Human 250 ml @ As Directed STK-MED ONCE IV; Start 08/21/25 at 00:03; Stop 08/21/25 at 00:05; Status DC Vancomycin HCl 250 ml @ 125 mls/hr Q8H IV; Start 08/21/25 at 08:00; Stop 08/21/25 at 06:28; Status DC Vancomycin HCl 250 ml @ 125 mls/hr Q8H IV Last administered on 08/21/25at 08:15; Start 08/21/25 at 06:30; Stop 08/21/25 at 08:35; Status DC Vancomycin HCl 250 ml @ 125 mls/hr Q8H IV Last administered on 08/24/25at 09:32; Start 08/21/25 at 16:30; Stop 08/24/25 at 16:54; Status DC Furosemide 20 mg Q12H IV Last administered on 08/22/25at 11:53; Start 08/21/25 at 11:30; Stop 08/22/25 at 14:17; Status DC Acetaminophen 1,000 mg Q6H6 IVPB Last administered on 08/25/25at 17:19; Start 08/21/25 at 12:00; Stop 09/20/25 at 11:59 Heparin Sodium/ Dextrose 250 ml @ 0 mls/hr PROTOCOL IV Last administered on 08/24/25at 21:16; Start 08/21/25 at 11:30; Stop 09/20/25 at 11:29 Iron Sucrose 200 mg DAILY IV Last administered on 08/22/25at 11:53; Start 08/21/25 at 13:00; Stop 08/23/25 at 09:43; Status DC Amiodarone HCl 200 mg BID PO Last administered on 08/25/25at 20:51; Start 08/22/25 at 09:00; Stop 08/29/25 at 21:00 Famotidine 20 mg BID PO Last administered on 08/25/25at 20:50; Start 08/22/25 at 09:00; Stop 09/21/25 at 08:59 Insulin Human Regular INSULIN SLIDING SCAL... ACHS SQ Last administered on 08/22/25at 20:58; Start 08/22/25 at 11:30; Stop 08/22/25 at 21:32; Status DC Furosemide 40 mg Q12H IV; Start 08/22/25 at 21:00; Stop 08/22/25 at 14:32; Status DC Furosemide 20 mg Q12H IV Last administered on 08/23/25at 09:50; Start 08/22/25 at 21:00; Stop 08/23/25 at 11:37; Status DC Insulin Human Regular INSULIN SLIDING SCAL... ACHS SQ Last administered on 08/25/25at 20:59; Start 08/23/25 at 07:30; Stop 09/22/25 at 07:29 Insulin Glargine 15 units DAILY SQ Last administered on 08/25/25at 09:28; Start 08/23/25 at 09:00; Stop 09/22/25 at 08:59 Iron Sucrose 200 mg DAILY IV Last administered on 08/25/25at 09:25; Start 08/23/25 at 09:00; Stop 09/22/25 at 08:59 Furosemide 40 mg Q12H IV Last administered on 08/25/25at 11:27; Start 08/23/25 at 11:30; Stop 09/22/25 at 11:29 Gabapentin 300 mg TID PO Last administered on 08/25/25at 20:51; Start 08/23/25 at 14:00; Stop 09/22/25 at 13:59 Vancomycin HCl 250 ml @ 125 mls/hr Q12H IV Last administered on 08/25/25at 11:26; Start 08/24/25 at 23:00; Stop 09/03/25 at 22:59 CAROLYN BYRNE MD Aug 25, 2025 21:50
[2025-08-26] VITALS (90 sets, daily range): BP systolic 43–249; BP diastolic 31–249; PULSE 46–85; RESP 11–37; TEMP 97.8–98.3; O2SAT 97–100
[2025-08-26 05:39] LABS: NUCLEATED RED BLOOD CELLS 0.2 % (0.0-0.19); PLATELET COUNT (AUTO) 112.0 K/uL (130-400); RED BLOOD CELL COUNT(AUTO) 2.9 MIL/uL (4.00-5.50); RED CELL DISTRIBUTION WIDTH 19.3 % (11.0-15.5); WHITE BLOOD COUNT (AUTO) 8.7 K/uL (4.8-10.8)
[2025-08-26 05:58] LABS: INR 1.11 (0.85-1.15)
[2025-08-26 05:59] LABS: ASPARTATE AMINOTRANSFERASE 42.0 U/L (10-37); CREATININE 0.7 mg/dL (0.5-1.0); GLOMERULAR FILTR. RATE CALC 100.0 mL/min (>90); GLUCOSE,RANDOM 173.0 mg/dL (70-105); SODIUM SERUM 140.0 mmol/L (136-145); TOTAL PROTEIN, SERUM 5.5 g/dL (6.0-8.3); UREA NITROGEN, BLOOD 16.0 mg/dL (7-18)
--- NOTE | 2025-08-26 07:04 | NUR ---
patient refused to reposition all night to left or right, despite education due to DTI. Continues to be noncompliant requesting food from outside not following the recommended cardiac diet after CABG sx. Very non-complaint, ABD having mood dysregulation, crying and yelling.
--- NOTE | 2025-08-26 07:05 | HMCIMG ---
EXAM: CHEST RADIOGRAPH, ONE VIEW Technique: A single frontal chest radiograph was obtained. Single-view technique limits sensitivity for small pleural effusions, small pneumothoraces, and subtle parenchymal or mediastinal abnormalities. Clinical Information: Status post coronary artery bypass grafting. Comparison: Chest radiograph dated August 24, 2025 at 06:21 [place] Daylight Time. Findings: Median sternotomy changes are present. Cardiac silhouette is enlarged. Pulmonary vascular congestion is present. A right transjugular pulmonary artery (Sparkman???Guillaume) catheter is in place with the tip projecting over the main pulmonary artery. Small bilateral pleural effusions are present with overlying atelectasis. The bilateral pleural effusions and adjacent atelectasis are decreased compared with the prior study. No pneumothorax is identified on this single projection. No acute osseous abnormality is identified. Impression: * Right transjugular pulmonary artery catheter with the tip in the region of the main pulmonary artery. * Cardiomegaly with pulmonary vascular congestion. * Small bilateral pleural effusions with overlying atelectasis, decreased compared with August 24, 2025. * No pneumothorax identified. /[place]
--- NOTE | 2025-08-26 07:31 | PN ---
[facility] CARDIOLOGY PROGRESS NOTE Date Patient Seen: Aug 25, 2025 Time of Visit: 08:09 Problem List: NSTEMI s/p 3V CABG (BRO-LAD, VG-D2, VG-OM) ICMP CARDIOGENIC SHOCK COCAINE USE Interval History: Late note entry for 08/25 due to [employer] malfunction. 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 No wheezes, or rhonchi.] HEART: [NSR. Normal S1 and S2 without murmurs, gallop or rub.] VASC: [Peripheral pulses +2 bilateral radial. R TRANSFER TABLE OPERATOR HELPER impella in place. distal extremities are warm] ABD: [soft, nontender.] EXT: [No cyanosis or edema. Right TRANSFER TABLE OPERATOR HELPER Impella CP and TVPM insertion site no ecchymoses or bleeding. SKIN: [No rashes or lesions noted. warm, dry NEURO: AOx3 moves all extremities. Laboratory: [ ] Hematology Labs: Test 08/26/25 04:38 08/25/25 02:37 Range/Units White Blood Count 8.7 4.8-10.8 K/uL Red Blood Count 2.90 L 4.00-5.50 MIL/uL Hemoglobin 8.8 L 12.0-16.0 g/dL Hematocrit 27.7 L 36-48 % Mean Corpuscular Volume 95.5 79-99 fL Mean Corpuscular Hemoglobin 30.3 27.0-33.0 pg Mean Corpuscular Hemoglobin Concent 31.8 L 32.0-36.0 g/dL Red Cell Distribution Width 19.3 H 11.0-15.5 % Platelet Count 112 L 130-400 K/uL Mean Platelet Volume 12.0 H 7.5-10.5 fL Nucleated Red Blood Cells 0.2 H 0.0-0.19 % Immature Granulocyte % (Auto) 2.2 H 0-1 % Neutrophils (%) (Auto) 68.7 40.0-77.0 % Lymphocytes (%) (Auto) 19.3 L 21.0-51.0 % Monocytes (%) (Auto) 7.3 3.0-13.0 % Eosinophils (%) (Auto) 2.3 0.0-8.0 % Basophils (%) (Auto) 0.2 0.0-5.0 % Neutrophils # (Auto) 6.7 1.8-7.7 K/uL Lymphocytes # (Auto) 1.9 1.0-4.8 K/uL Monocytes # (Auto) 0.7 0.1-1.0 K/uL Eosinophils # (Auto) 0.22 0.00-0.70 K/uL Basophils # (Auto) 0.02 0.00-0.20 K/uL Absolute Immature Granulocyte (auto 0.21 0-1 K/uL Red Blood Cell Morphology See comments Chemistry Labs: Test 08/26/25 06:07 08/26/25 04:38 Range/Units Whole Blood Glucose 166 H 70-110 MG/DL Sodium Level 140 136-145 mmol/L Potassium Level 4.1 3.5-5.1 mmol/L Chloride Level 106 101-111 mmol/L Carbon Dioxide Level 30 21-32 mmol/L Blood Urea Nitrogen 16 7-18 mg/dL Creatinine 0.7 0.5-1.0 mg/dL Glomerular Filtration Rate Calc 100 >90 mL/min Random Glucose 173 H 70-105 mg/dL Total Calcium 7.9 L 8.5-10.1 mg/dL Ionized Calcium 1.12 L 1.15-1.33 MMOL/L Total Bilirubin 0.4 0.2-1.0 mg/dL Aspartate Amino Transf (AST/SGOT) 42 H 10-37 U/L Alanine Aminotransferase (ALT/SGPT) 28 12-78 U/L Alkaline Phosphatase 238 H 50-136 U/L Total Protein 5.5 L 6.0-8.3 g/dL Albumin 1.8 L 3.5-5.0 g/dL Coagulation Labs: Test 08/26/25 04:38 Range/Units Prothrombin Time 11.6 9.6-11.6 SEC Prothromb Time International Ratio 1.11 0.85-1.15 Activated Partial Thromboplast Time 52.7 H 26.3-35.5 SEC Fibrinogen 565 *H 180-350 mg/dL Impression and Plan: 1. Non ST-elevation PA complicated by cardiogenic shock and complete heart block status post Impella placement in the R TRANSFER TABLE OPERATOR HELPER and TVPM to R CFV 2. CAD with total occlusion of the right coronary artery unable to cross with a wire , of note the patient had a 30-40% RCA stenosis in April of this year raising possibility of spasm and or plaque rupture. LV ejection fraction of 50% with hypokinesis of the infero base by echo this admission. Previously known severe disease of pLAD and pLCx. s/p 3V CABG (BRO-LAD, VG-D2, VG-OM with RUPALI- ligation 40 mm Atricure clip 08/20) 3. VT post operatively, on amiodarone and lidocaine infusions 4. Cocaine abuse , tox screen positive for cocaine and benzodiazepines 5. Diabetes mellitus type 2 uncontrolled 6. Tobacco dependence 7. Remote CVA 2008 8. Noncompliance history, the patient has been seen in the hospital but has not followed up in the office. 9. Dyslipidemia 10. Urinary tract infection, E Coli (Ucx 08/14/25 11. Bacteremia one of two sets possibly contamination (Staph Cohnii) BCx 08/18/25, 2 of 2 ngtd 12. Thrombocytopenia ECHO Conclusion The cardiac chambers are normal in size. There is an Impella catheter seen in the left ventricle. The inlet of the catheter is 3.2 cm from the aortic valve. Mild concentric left ventricular hypertrophy. 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 The mid/apical inferior wall is normal in function. The other willams are normal in function. Left ventricle systolic function is low normal, estimated LVEF 50 to 55%. Indeterminate diastolic function. Trace aortic regurgitation. Trace mitral regurgitation. Trace tricuspid regurgitation. PASP is normal. There is no pericardial effusion. DICTATED BY: CHIRAG SCOTT MD DATE: 08/14/25 0938 ASA, statin. IV diuretics. Continue wean down on Impella support. Once Impella weaned we can obtain repeat limited echo to evaluate her LVEF. CHANDRIKA ELAINE DO Aug 26, 2025 07:31
[2025-08-26] MEDS ORDERED: COMPOUND IV REFRIGERATED 1 EACH IVSOLN MISC PRN (11:00)
[2025-08-26 11:13] LABS: ABG BASE EXCESS 1.5 mmol/L (-2.0-3.0); ABG HCO3 25.0 mmol/L (21.0-28.0); ABG OXYGEN SATURATION 94.8 % (94.0-98.0); ABG PCO2 35 mmHg (32-45); ABG PH 7.474 (7.350-7.450); CARBON MONOXIDE 0.9 % (0.5-1.5); DEVICE COMMENT LR; PO2, ARTERIAL BG 74.6 mmHg (83.0-108.0); TEMPERATURE, CELSIUS BG 37.0 CELSIUS (35.5-37.0); VENT MODE, BG NC (ROOM AIR)
--- NOTE | 2025-08-26 15:09 | PN ---
[facility] PROGRESS NOTE Date of Service: Aug 26, 2025 Time of Service: 15:08 SUBJECTIVE: This is a 60-year-old female with underlying history of obesity, coronary artery disease, poorly controlled type 2 diabetes mellitus, history of anemia, history of cocaine use, tobacco use disorder, history of CVA in 2008, who presented to the ER for further evaluation of severe substernal chest pain and shortness of breadth. Patient reports having history of cocaine use with last use of cocaine yesterday. She reports having severe substernal chest pain that started today in it has been associated with dizziness, and generalized malaise. Pain is 10/1 0 in severity. Patient denies any syncope or fall. She has been having lightheadedness with ambulation. She has not been able to follow up with Cardiology as outpatient. She has a previous history of abnormal CT coronary angiography when she was hospitalized in 04/2025 and she was treated medically. With regards to type 2 diabetes mellitus, she reports being on metformin as ou tpatient. On presentation to the hospital, patient was noted to be hypotensive with blood pressure of 80/60 with heart rate of 40 with EKG showing complete heart block. [place] [address], hemoglobin 12.4, platelet count of 690819. BMP showed sodium of 133, potassium 4.8, chloride of 99, BUN of 21, creatinine 1.0, blood glucose of 403, [place] [address]. Chest x-ray showed no acute infiltrates. Patient will be admitted for further management of cardiogenic shock, NSTEMI, complete heart block with history of poorly controlled type 2 diabetes mellitus. Patient will be emergently taken to the laboratory coordinator for cardiac catheterization/ PCI and tentative plan for MCS support. Patient will be admitted to intensive care unit and she remains critically ill. 08/14 patient remains critically ill requiring Impella and dopamine support. UDS has demonstrated benzos and cocaine 08/15 patient remains on Impella 08/16 patient appears to be resting comfortably in bed. She remains on Impella and dopamine support. She reports she would like to be bathed and wants her hair combed significant and she is feeling better 08/17 patient is on GI soft diet tolerating well. She remains on Impella support 08/18 patient is resting comfortably in bed. She remains on Impella. Tolerating oral intake. 08/19 hemoglobin dropped to 6.5 from 7.0-7.5 yesterday. I agree with transfusing 1 unit PRBC. Patient remains on Impella. Patient is resting comfortably in bed. 08/20 patient is resting comfortably in bed. She remains on Impella support pending recovery for CABG. 08/21 patient underwent CABG x3 yesterday, no complications reported patient remains on Impella the patient is on norepinephrine, amiodarone, dopamine, insulin drip 08/22 postop day 2. From CABG x3. Patient does awaken to verbal stimulation and states she has some chest pain and slight shortness for breath she feels the pain as incisional from her open heart procedure. He is on p.o. amiodarone and being weaned off norepinephrine. 08/23 postop day 3 from CABG x3. Patient is in bed visiting with her son at the bedside. She states she has no shortness for breath, she does have some incisional chest discomfort, no nausea or vomiting or diarrhea. She is off nor epinephrine drip and remains with the Impella assist. 08/24 patient is seen and examined at bedside, discussed with the RN, no acute events overnight, remains with the Impella support, postoperative day four from CABG x3. She is awake, following commands. Off vasopressors. Remains on heparin drip and sodium bicarbonate drip. Continue to follow critical Care and Cardiothoracic input and recommendation. 08/25 PATIENT IS SEEN AND EXAMINED AT BEDSIDE, DISCUSSED WITH THE RN, NO ACUTE EVENTS OVERNIGHT, PATIENT FOLLOWING COMMANDS, SHE REMAINS WITH THE IMPELLA SUPPORT, CHEST TUBE IN PLACE, POSTOPERATIVE DAY FIVE, STATUS POST CABG. CU RRENTLY OFF PRESSORS, ON HEPARIN DRIP. CONTINUE TO FOLLOW CRITICAL CARE AND CARDIOTHORACIC INPUT AND RECOMMENDATIONS. POSSIBLE REMOVAL OF IMPELLA SUPPORT TODAY. 08/26 patient is seen and examined at bedside, discussed with the RN, no acute events overnight, remains with the Impella support, postoperative day four from CABG x6. She is awake, following commands. Off vasopressors. Remains on heparin drip, continue with chest tube in place, continue to follow Cardiothoracic input and recommendation. REVIEW OF SYSTEMS CONSTITUTIONAL: generalized fatigue, malaise NEUROLOGICAL: Denies headache, amaurosis fugax, motor weakness, sensory deficit, vertigo/spinning sensation, gait abnormalities, or tremors. ENT: No hearing loss, otalgia, otorrhea, rhinitis, rhinorrhea, hoarseness, or sore throat. CARDIOVASCULAR: Mild incisional chest pain, no shortness breath PULMONARY: Denies any shortness of breath, cough, phlegm/sputum, hemoptysis, pleuritic chest pain. SLEEP: Denies morning headaches, daytime somnolence or napping. Denies difficulty falling asleep, staying asleep, waking from sleep. Denies knowledge of snoring. GASTROINTESTINAL: No nausea, Denies any type of dysphagia to either liquids or solids. Denies vomiting, pyrosis, early satiety, abdominal pain, diarrhea, constipation, or changes in stool consistency or caliber. Denies coffee-ground emesis, hematemesis, hematochezia, or melanotic stools. GENITOURINARY: Denies frequency, urgency, nocturia, hematuria or incontinence (Storage/Irritative symptoms.) Low urinary stream, straining to void, urinary intermittency or hesitancy, splitting of the voiding stream, terminal dribbling. ENDOCRINOLOGIC: Denies polyuria, polydipsia, polyphagia or heat/cold intolerances. HEMATOLOGIC: Denies thrombophilia/previous clots, or coagulopathy/bleeding disorders. ONCOLOGIC: Denies personal history of malignancy. DERMATOLOGIC: Denies rashes or pruritus. PSYCHIATRIC: Denies any suicidal or homicidal ideation. Denies hallucinations. PHYSICAL EXAM GENERAL APPEARANCE: The patient is awake, appears ill and in no distress NEUROLOGICAL: Cranial nerves II-XII grossly intact. Motor is 5/5 in bilateral upper and lower extremities proximal to distal. No sensory deficits. HEENT: Face is symmetric. Pupils are equal and reactive. Extraocular movements are intact. NECK: Supple. No JVD. No thyromegaly. No submental, submandibular, pre-/po stauricular, occipital or supraclavicular lymphadenopathy. CHEST: Normal chest expansion. No Telemetry. LUNGS: minimal crackles noted of the bilateral lung bases CARDIOVASCULAR: Regular. S1 and S2 normal. No appreciable rubs, murmurs or gallops. ABDOMEN: Soft, nontender, and nondistended. There is no rebound, voluntary guarding, or rigidity. : Deferred. No Coombs. EXTREMITIES: trace edema noted of the bilateral lower extremities SKIN: No skin breakdown. Vital Signs (last 8hr) Date Time Temp Pulse Resp B/P (MAP) Pulse Ox O2 Delivery O2 Flow Rate FiO2 08/26/25 14:39 80 37 102/49 (66) 98 08/26/25 14:09 80 20 99/45 (63) 98 08/26/25 13:50 80 30 89/44 (59) 98 08/26/25 13:39 80 26 89/50 (63) 98 08/26/25 13:09 85 29 97/40 (59) 99 08/26/25 12:39 80 30 104/53 (70) 97 08/26/25 12:09 80 16 95/45 (62) 99 08/26/25 12:00 98.2 08/26/25 12:00 98 Nasal Cannula* 3 32 08/26/25 11:39 80 24 97/45 (62) 99 91/66 (74) 08/26/25 11:15 80 28 N/Cannula Low lpm 4.0 36 08/26/25 11:09 80 22 103/52 (69) 98 103/65 (78) 08/26/25 10:39 80 32 106/59 (75) 97 93/53 (66) 08/26/25 10:09 80 20 104/60 (75) 99 85/54 (64) 08/26/25 09:39 80 23 103/48 (66) 97 75/45 (55) 08/26/25 09:09 80 23 97/51 (66) 98 98/66 (77) 08/26/25 08:45 98 Nasal Cannula* 3 32 08/26/25 08:39 80 13 115/47 (69) 100 108/69 (82) 08/26/25 08:09 80 25 102/56 (71) 96 101/68 (79) 08/26/25 08:00 98.2 08/26/25 07:41 80 17 111/59 (76) 99 80/59 (66) 08/26/25 07:39 80 18 99 97/72 (80) 08/26/25 07:39 80 18 99 97/72 (80) 08/26/25 07:09 80 15 106/43 (64) 99 124/119 (121) LABS: Laboratory: Test 08/26/25 11:34 08/26/25 11:11 08/26/25 04:38 08/25/25 22:18 Range/Units Whole Blood Glucose 228 H 70-110 MG/DL Blood Gas Specimen Type Arterial Arterial Blood pH 7.474 H 7.350-7.450 Arterial Blood Partial Pressure CO2 35 32-45 mmHg Arterial Blood Partial Pressure O2 74.6 L 83.0-108.0 mmHg Arterial Blood HCO3 25.0 21.0-28.0 mmol/L Arterial Blood Oxygen Saturation 94.8 94.0-98.0 % Arterial Blood Base Excess 1.5 -2.0-3.0 mmol/L Hemoglobin (Blood Gas) 9.6 L 12.0-16.0 g/dL Sodium (Blood Gas) 134 L 136-145 MMOL/L Bedside Potassium (Blood Gas) 3.9 3.4-4.5 MMOL/L Bedside Chloride (Blood Gas) 104 98-107 MMOL/L Bedside Glucose (Blood Gas) 256 H 65-95 MG/DL Bedside Ionized Calcium (Blood Gas) 1.13 L 1.15-1.33 MMOL/L Bedside Lactic Acid (Blood Gas) 1.17 H 0.36-0.75 MMOL/L Blood Gas Temperature 37.0 35.5-37.0 CELSIUS Blood Gas Flow-by 3.00 0.00-15.00 L/min Blood Gas Vent Mode NC ROOM AIR FiO2 32.0 % Blood Gas Specimen Comment LR White Blood Count 8.7 4.8-10.8 K/uL Red Blood Count 2.90 L 4.00-5.50 MIL/uL Hemoglobin 8.8 L 12.0-16.0 g/dL Hematocrit 27.7 L 36-48 % Mean Corpuscular Volume 95.5 79-99 fL Mean Corpuscular Hemoglobin 30.3 27.0-33.0 pg Mean Corpuscular Hemoglobin Concent 31.8 L 32.0-36.0 g/dL Red Cell Distribution Width 19.3 H 11.0-15.5 % Platelet Count 112 L 130-400 K/uL Mean Platelet Volume 12.0 H 7.5-10.5 fL Nucleated Red Blood Cells 0.2 H 0.0-0.19 % Prothrombin Time 11.6 9.6-11.6 SEC Prothromb Time International Ratio 1.11 0.85-1.15 Activated Partial Thromboplast Time 52.7 H 26.3-35.5 SEC Fibrinogen 565 *H 180-350 mg/dL Sodium Level 140 136-145 mmol/L Potassium Level 4.1 3.5-5.1 mmol/L Chloride Level 106 101-111 mmol/L Carbon Dioxide Level 30 21-32 mmol/L Blood Urea Nitrogen 16 7-18 mg/dL Creatinine 0.7 0.5-1.0 mg/dL Glomerular Filtration Rate Calc 100 >90 mL/min Random Glucose 173 H 70-105 mg/dL Total Calcium 7.9 L 8.5-10.1 mg/dL Ionized Calcium 1.12 L 1.15-1.33 MMOL/L Total Bilirubin 0.4 0.2-1.0 mg/dL Aspartate Amino Transf (AST/SGOT) 42 H 10-37 U/L Alanine Aminotransferase (ALT/SGPT) 28 12-78 U/L Alkaline Phosphatase 238 H 50-136 U/L Total Protein 5.5 L 6.0-8.3 g/dL Albumin 1.8 L 3.5-5.0 g/dL Vancomycin Level Trough 13.6 # 10.0-20.0 UG/ML Test 08/25/25 02:37 Range/Units Immature Granulocyte % (Auto) 2.2 H 0-1 % Neutrophils (%) (Auto) 68.7 40.0-77.0 % Lymphocytes (%) (Auto) 19.3 L 21.0-51.0 % Monocytes (%) (Auto) 7.3 3.0-13.0 % Eosinophils (%) (Auto) 2.3 0.0-8.0 % Basophils (%) (Auto) 0.2 0.0-5.0 % Neutrophils # (Auto) 6.7 1.8-7.7 K/uL Lymphocytes # (Auto) 1.9 1.0-4.8 K/uL Monocytes # (Auto) 0.7 0.1-1.0 K/uL Eosinophils # (Auto) 0.22 0.00-0.70 K/uL Basophils # (Auto) 0.02 0.00-0.20 K/uL Absolute Immature Granulocyte (auto 0.21 0-1 K/uL Red Blood Cell Morphology See comments Current Medications Medications (Trade) Dose Ordered Sig/Elmer Route PRN Reason Start Time Stop Time Status Last Admin Dose Admin Acetaminophen (TYLenol 325MG TAB) 650 mg Q4H PRN PO Temp >38.3C(AFTER EXTUBATION) 08/20/25 17:00 09/19/25 16:59 Acetaminophen (TYLenol 325MG TAB) 650 mg Q6H PRN PO MILD PAIN (1-3) 08/13/25 16:30 09/12/25 16:29 08/23/25 11:01 650 MG Acetaminophen (TYLenol 500MG TAB) 500 mg Q6H PRN PO TEMP < 101.1 AND/OR HEADACHE 08/14/25 14:30 09/13/25 14:29 08/26/25 10:41 500 MG Acetaminophen (TYLenol 650MG SUPPOSITORY) 650 mg Q4H PRN RC Temp >38.3C WHILE INTUBATED 08/20/25 17:00 09/19/25 16:59 Acetaminophen (acetaMINOPHEN 1,000MG/100ML) 1,000 mg Q6H6 IVPB 08/21/25 12:00 09/20/25 11:59 08/26/25 11:22 1,000 MG Albumin Human 50 ml @ 0 mls/hr BID IV 08/18/25 09:00 08/23/25 08:59 DC 08/22/25 20:56 100 MLS/HR Albumin Human 250 ml @ 0 mls/hr AD PRN IV IF HEMODYNAMICALLY UNSTABLE 08/20/25 17:00 08/20/25 22:46 DC 08/20/25 22:46 0 MLS/HR Aminocaproic Acid 38930 mg/Sodium Chloride 310 ml @ 25 mls/hr AD IV 08/20/25 17:00 08/21/25 05:23 DC Aminocaproic Acid 35619 mg/Sodium Chloride 480 ml @ 0 mls/hr AD PRN IV BLEEDING CONTROL 08/20/25 08:00 09/19/25 07:59 Aminocaproic Acid 49004 mg/Sodium Chloride 480 ml @ 0 mls/hr AD PRN IV BLEEDING CONTROL 08/20/25 09:00 08/20/25 09:03 DC Amiodarone HCl (pacERONE 200MG) 200 mg BID PO 08/22/25 09:00 08/29/25 21:00 08/26/25 09:20 200 MG Amiodarone HCl 360 mg/Dextrose 207.2 ml @ 33.3 mls/hr AD IV 08/20/25 21:00 08/20/25 21:05 DC Amiodarone HCl 540 mg/Dextrose 310.8 ml @ 16.7 mls/hr [id number] IV 08/21/25 03:00 09/20/25 02:59 08/21/25 20:12 16.7 MLS/HR Amiodarone HCL/ Dextrose 207.2 ml @ 33.3 mls/hr AD IV 08/20/25 21:30 08/21/25 10:49 DC 08/20/25 21:24 33.3 MLS/HR Aspirin (Aspirin 81mg Chew Tab) 81 mg DAILY PO 08/14/25 09:00 09/13/25 08:59 08/26/25 09:20 81 MG Atorvastatin Calcium (LIPItor 40MG) 40 mg HS PO 08/13/25 21:00 09/12/25 20:59 08/25/25 20:50 40 MG Benzocaine (Cepacol Sore Throat Lozenge) 1 each Q4H PRN MM SORE THROAT 08/26/25 11:30 09/25/25 11:29 Bisacodyl (DulcoLAX) 10 mg DAILY RC 08/17/25 09:00 08/20/25 08:59 DC 08/18/25 07:58 10 MG Calcium Carbonate (Tums 500 Mg Chew Tab) 500 tab QID PRN PO HEARTBURN 08/19/25 12:00 08/20/25 16:32 DC 08/20/25 05:10 1 TAB Calcium Gluconate 1 gm/Sodium Chloride 60 ml @ 200 mls/hr AD PRN IV HYPOCALCEMIA 08/20/25 17:00 09/19/25 16:59 08/25/25 11:27 200 MLS/HR Cefazolin Sodium (Ancef) 2 gm ONCALL IVP 08/19/25 19:30 08/21/25 08:36 DC 08/20/25 16:30 2 GM Cefazolin Sodium (Ancef) 2 gm Q8H IVPB 08/20/25 22:00 08/21/25 14:01 DC 08/21/25 13:45 2 GM Ceftriaxone Sodium (Rocephin 2gm Inj) 2 gm Q24H IVPB 08/14/25 11:30 08/24/25 11:29 DC 08/23/25 12:16 2 GM Chlordiazepoxide HCl (LIBrium 25 MG CAP) 25 mg Q2H PRN PO ALCOHOL WITHDRAWAL PROTOCOL 08/14/25 14:30 08/20/25 16:32 DC 08/16/25 23:38 25 MG Chlordiazepoxide HCl (LIBrium 25 MG CAP) 50 mg Q1H PRN PO ALCOHOL WITHDRAWAL PROTOCOL 08/14/25 14:30 08/20/25 16:32 DC Dexmedetomidine/ Sodium Chloride (PRECEdex 400MCG/ 100ML-NS) 400 mcg PROTOCOL IV 08/20/25 20:30 09/19/25 20:29 08/22/25 00:35 400 MCG Dextrose (D50w) 50 ml AD PRN IV HYPOGLYCEMIA PROTOCOL 08/20/25 17:00 09/19/25 16:59 Dextrose (D50w) 50 ml AD PRN IV HYPOGLYCEMIA PROTOCOL 08/13/25 20:00 08/20/25 22:03 DC Diphenhydramine HCl (BENAdryl INJ) 25 mg ONCE PRN IV ITCHING 08/15/25 23:00 08/17/25 22:59 DC Docusate Sodium (COLace 100MG CAP) 100 mg BID PRN PO CONSTIPATION 08/14/25 11:00 09/13/25 10:59 Dopamine HCl/ Dextrose 250 ml @ 0 mls/hr PROTOCOL IV 08/13/25 16:00 09/12/25 15:59 08/16/25 16:41 3 MLS/HR Epinephrine HCl 10 mg/Sodium Chloride 250 ml @ 14.091 mls/ hr AD PRN IV POST-OP CARDIOVASCULAR ORDERS 08/20/25 17:00 08/21/25 10:49 DC Epinephrine HCl 10 mg/Sodium Chloride 250 ml @ 0 mls/hr AD PRN IV TITRATE 08/20/25 08:00 09/19/25 07:59 08/22/25 04:22 6.8 MLS/HR Epinephrine HCl 10 mg/Sodium Chloride 250 ml @ 0 mls/hr AD PRN IV TITRATE 08/20/25 09:00 08/20/25 09:03 DC Famotidine (Pepcid 20mg Vial) 20 mg BID IV 08/20/25 21:00 08/22/25 08:20 DC 08/21/25 20:17 20 MG Famotidine (Pepcid 20mg Tab) 20 mg BID PO 08/22/25 09:00 09/21/25 08:59 08/26/25 09:20 20 MG Folic Acid (FOLic ACID 1 MG TABLET) 1 mg DAILY PO 08/15/25 09:00 08/17/25 09:01 DC 08/17/25 07:46 1 MG Furosemide (LASix 20MG VIAL) 20 mg Q12H IV 08/21/25 11:30 08/22/25 14:17 DC 08/22/25 11:53 20 MG Furosemide (LASix 20MG VIAL) 20 mg Q12H IV 08/22/25 21:00 08/23/25 11:37 DC 08/23/25 09:50 20 MG Furosemide (LASix 20MG VIAL) 40 mg Q12H IV 08/22/25 21:00 08/22/25 14:32 DC Furosemide (LASix 40MG VIAL) 40 mg Q12H IV 08/23/25 11:30 09/22/25 11:29 08/26/25 10:42 40 MG Gabapentin (NEURontin 300 MG CAP) 300 mg TID PO 08/23/25 14:00 09/22/25 13:59 08/26/25 13:07 300 MG Glucagon (Glucagon 1mg Kit) 1 mg AD PRN IM HYPOGLYCEMIA PROTOCOL 08/20/25 17:00 09/19/25 16:59 Glucagon (Glucagon 1mg Kit) 1 mg AD PRN IM HYPOGLYCEMIA PROTOCOL 08/13/25 20:00 08/21/25 10:49 DC Heparin Sodium (Porcine) (HEParin 5,000 UNIT VIAL) *calculation based on ACTUAL B... AD PRN IV HEPARIN PROTOCOL 08/13/25 16:30 08/20/25 16:32 DC 08/17/25 04:46 3,175 UNIT Heparin Sodium/ Dextrose 250 ml @ 0 mls/hr PROTOCOL IV 08/21/25 11:30 09/20/25 11:29 08/26/25 06:54 8 MLS/HR Heparin Sodium/ Dextrose 250 ml @ 0 mls/hr Q6H IV 08/13/25 16:30 08/20/25 16:32 DC 08/19/25 22:03 11.78 MLS/HR Insulin Glargine (LANtus 100 UNITS/ML 10 ML VIAL) 5 units BID@0730,2100 SQ 08/16/25 21:00 08/17/25 09:31 DC 08/16/25 21:21 5 UNITS Insulin Glargine (LANtus 100 UNITS/ML 10 ML VIAL) 10 units HS SQ 08/13/25 21:00 08/14/25 06:16 DC 08/13/25 20:21 10 UNITS Insulin Glargine (LANtus 100 UNITS/ML 10 ML VIAL) 15 units DAILY SQ 08/23/25 09:00 09/22/25 08:59 08/26/25 09:23 15 UNITS Insulin Glargine (LANtus 100 UNITS/ML 10 ML VIAL) 20 units DAILY SQ 08/14/25 09:00 08/15/25 07:24 DC 08/14/25 08:01 20 UNITS Insulin Glargine (LANtus 100 UNITS/ML 10 ML VIAL) 30 units DAILY 08/15/25 09:00 08/16/25 07:19 DC 08/15/25 08:28 30 UNITS Insulin Glargine (LANtus 100 UNITS/ML 10 ML VIAL) 35 units DAILY 08/16/25 09:00 08/19/25 07:35 DC 08/18/25 07:59 35 UNITS Insulin Glargine (LANtus 100 UNITS/ML 10 ML VIAL) 42 units DAILY 08/19/25 09:00 08/20/25 06:22 DC 08/19/25 09:40 42 UNITS Insulin Glargine (LANtus 100 UNITS/ML 10 ML VIAL) 45 units DAILY 08/20/25 09:00 08/20/25 16:32 DC Insulin Human Lispro (HumaLOG LISpro 100 UNIT/ML 3ML) INSULIN SLIDING SCAL... ACHS SQ 08/16/25 21:00 08/17/25 09:31 DC Insulin Human Regular (humuLIN R 100 UNIT/ML 3ML) 5 unit TIDAC SQ 08/14/25 17:00 08/15/25 07:24 DC 08/15/25 07:03 5 UNIT Insulin Human Regular (humuLIN R 100 UNIT/ML 3ML) 8 unit TIDAC SQ 08/15/25 07:30 08/15/25 22:46 DC 08/15/25 16:02 8 UNIT Insulin Human Regular (humuLIN R 100 UNIT/ML 3ML) 10 unit TIDAC SQ 08/16/25 07:30 08/17/25 21:12 DC 08/17/25 16:09 10 UNIT Insulin Human Regular (humuLIN R 100 UNIT/ML 3ML) 12 unit TIDAC SQ 08/18/25 07:30 08/18/25 20:19 DC 08/18/25 16:39 12 UNIT Insulin Human Regular (humuLIN R 100 UNIT/ML 3ML) 16 unit TIDAC SQ 08/19/25 07:30 08/20/25 06:22 DC 08/19/25 16:47 16 UNIT Insulin Human Regular (humuLIN R 100 UNIT/ML 3ML) 17 unit TIDAC SQ 08/20/25 07:30 08/20/25 16:32 DC Insulin Human Regular (humuLIN R 100 UNIT/ML 3ML) INSULIN SLIDING SCAL... ACHS SQ 08/17/25 16:30 08/20/25 16:32 DC 08/19/25 21:31 8 UNIT Insulin Human Regular (humuLIN R 100 UNIT/ML 3ML) INSULIN SLIDING SCAL... ACHS SQ 08/22/25 11:30 08/22/25 21:32 DC 08/22/25 20:58 3 UNIT Insulin Human Regular (humuLIN R 100 UNIT/ML 3ML) INSULIN SLIDING SCAL... ACHS SQ 08/23/25 07:30 09/22/25 07:29 08/26/25 11:49 6 UNIT Insulin Human Regular (humuLIN R 100 UNIT/ML 3ML) INSULIN SLIDING SCAL... ACHS SQ 08/13/25 16:30 08/16/25 20:46 DC 08/16/25 20:01 4 UNIT Insulin Human Regular 100 unit/ Sodium Chloride 100 ml @ 0 mls/hr AD IV 08/20/25 17:00 08/22/25 16:59 DC 08/21/25 15:00 5 MLS/HR Iron Sucrose (VenoFER) 200 mg DAILY IV 08/21/25 13:00 08/23/25 09:43 DC 08/22/25 11:53 200 MG Iron Sucrose (VenoFER) 200 mg DAILY IV 08/23/25 09:00 08/26/25 08:57 DC 08/25/25 09:25 200 MG Lidocaine (Lidocaine Patch 4%) 1 each DAILY TP 08/19/25 09:00 11/14/25 08:59 08/26/25 09:23 1 EACH Lidocaine HCl/ Dextrose 250 ml @ 0 mls/hr PROTOCOL IV 08/21/25 00:00 09/20/25 00:00 Magnesium Sulfate 50 ml @ 12.5 mls/hr AD PRN IV MAG LEVEL LESS THAN 2.0 08/20/25 17:00 09/19/25 16:59 08/24/25 05:02 12.5 MLS/HR Magnesium Sulfate 50 ml @ 0 mls/hr PROTOCOL IV 08/13/25 16:30 08/21/25 10:49 DC 08/21/25 05:58 25 MLS/HR Morphine Sulfate (morPHINE 2MG SYG) 0.5 mg Q2H PRN IV MODERATE PAIN (4-6) 08/20/25 17:00 08/20/25 18:07 DC Morphine Sulfate (morPHINE 2MG SYG) 2 mg Q6H PRN IVP SEVERE PAIN (7-10) 08/19/25 18:00 08/20/25 16:32 DC 08/19/25 17:50 2 MG Morphine Sulfate (morPHINE 4MG SYG) 0.5 mg Q2H PRN IV MODERATE PAIN (4-6) 08/20/25 18:30 08/21/25 16:59 DC Morphine Sulfate (morPHINE 4MG SYG) 1 mg Q2H PRN IV SEVERE PAIN (7-10) 08/20/25 17:00 08/21/25 16:59 DC Morphine Sulfate (morPHINE 4MG SYG) 2 mg Q6H PRN IVP SEVERE PAIN (7-10) 08/14/25 09:30 08/19/25 12:29 DC 08/19/25 12:22 2 MG Multivitamins Therapeutic (Multivitamin Tablet) 1 tab DAILY PO 08/15/25 09:00 09/14/25 08:59 08/26/25 09:20 1 TAB Nitroglycerin/ Dextrose 0 ml @ 0 mls/hr AD IV 08/20/25 17:00 08/23/25 16:59 DC Nitroglycerin/ Dextrose 250 ml @ 0 mls/hr PROTOCOL IV 08/20/25 03:30 08/20/25 16:32 DC 08/20/25 03:12 1.5 MLS/HR Norepinephrine 250 ml @ 0 mls/hr PROTOCOL IV 08/13/25 15:30 08/20/25 08:31 DC Norepinephrine Bitartrate 250 ml @ 0 mls/hr AD PRN IV TITRATE 08/20/25 08:00 09/19/25 07:59 08/21/25 06:40 9.4 MLS/HR Norepinephrine Bitartrate 250 ml @ 0 mls/hr AD PRN IV TITRATE 08/20/25 09:00 08/20/25 09:03 DC Norepinephrine Bitartrate 8 mg/ Dextrose 250 ml @ 0 mls/hr AD PRN IV POST-OP CARDIOVASCULAR ORDERS 08/20/25 17:00 08/21/25 10:49 DC Ondansetron HCl (zoFRAN 4MG INJ) 4 mg Q4H PRN IV NAUSEA 08/14/25 14:30 08/20/25 16:32 DC 08/14/25 14:17 4 MG Ondansetron HCl (zoFRAN 4MG INJ) 4 mg Q6H PRN IV NAUSEA/VOMITING 08/20/25 17:00 09/19/25 16:59 Ondansetron HCl (zoFRAN 4MG INJ) 4 mg Q6H PRN IVP NAUSEA/VOMITING 08/13/25 16:30 08/14/25 14:08 DC Pantoprazole Sodium (PROTonix 40MG INJ) 40 mg Q12H IVP 08/17/25 16:30 08/20/25 16:32 DC 08/20/25 03:53 40 MG Pantoprazole Sodium (PROTonix 40MG INJ) 40 mg Q24H IVP 08/13/25 16:30 08/17/25 11:10 DC 08/16/25 16:07 40 MG Pharmacy Profile Note (Pharmacy Communication) 1 each PROTOCOL PRN MISC ETOH Withdrawal Score changes 08/14/25 14:30 08/14/25 14:08 DC Polyethylene Glycol (MIRalax 3350 17 GM POWD.[id number]) 17 gm DAILY PO 08/15/25 09:00 09/14/25 08:59 08/24/25 09:35 17 GM Potassium Phosphate 250 ml @ 42 mls/hr AD PRN IV LOW PHOS LEVEL 08/20/25 17:00 09/19/25 16:59 Potassium Chloride 100 ml @ 100 mls/hr AD PRN IV HYPOKALEMIA 10/16/25 17:00 09/19/25 16:59 08/25/25 02:11 100 MLS/HR Potassium Chloride 100 ml @ 100 mls/hr AD PRN IV POTASSIUM PROTOCOL 08/13/25 16:30 08/20/25 16:32 DC 08/16/25 16:07 100 MLS/HR Potassium Chloride (K-Dur/Klor-Con 20meq) 20 meq AD PRN PO POTASSIUM PROTOCOL 08/13/25 16:30 08/20/25 16:32 DC 08/15/25 08:23 20 MEQ Potassium Chloride (KCl 10% Elixir 20meq/15ml) 20 meq AD PRN PO POTASSIUM PROTOCOL 08/13/25 16:30 08/20/25 16:32 DC Promethazine HCl (Phenergan) 25 mg Q6H PRN PO NAUSEA 08/14/25 14:30 08/20/25 16:32 DC Propofol 100 ml @ 0 mls/hr AD PRN IV SEDATION 08/20/25 17:00 08/24/25 17:00 DC Sodium Bicarbonate 25 meq/Dextrose 1,000 ml @ 0 mls/hr Q0M IV 08/14/25 00:30 09/13/25 00:29 08/20/25 23:15 50 MLS/HR Sodium Bicarbonate 25 meq/Dextrose 1,000 ml @ 0 mls/hr Q0M IVP 08/14/25 00:30 08/14/25 00:15 DC Sodium Bicarbonate (Sodium Bicarb 50meq 50ml Vial) 50 meq AD PRN IV OTHER[SEE DOSING INSTRUCTIONS] 08/20/25 17:00 08/23/25 16:59 DC 08/21/25 01:19 50 MEQ Sodium Chloride 500 ml @ 500 mls/hr Q1H IV 08/20/25 00:33 08/20/25 03:16 DC 08/20/25 00:53 500 MLS/HR Sodium Chloride 500 ml @ 0 mls/hr AD IV 08/20/25 17:00 09/19/25 16:59 Sodium Chloride 1,000 ml @ 10 mls/hr ONCE IV 08/20/25 17:00 08/21/25 16:59 DC 08/20/25 22:31 10 MLS/HR Sodium Chloride (NS Flush 10ml) 10 ml Q8H PRN IVP IV LINE FLUSH 08/20/25 17:00 09/19/25 16:59 Thiamine HCl (Vitamin B-1) 300 mg DAILY IV 08/15/25 09:00 08/17/25 09:01 DC 08/17/25 07:46 300 MG Ticagrelor (BRILinta) 90 mg BID PO 08/14/25 09:00 08/14/25 21:19 DC 08/14/25 20:09 90 MG Tramadol HCl (UltRAM) 25 mg Q6H PRN PO MODERATE PAIN (4-6) 08/20/25 17:00 08/25/25 16:59 DC Tramadol HCl (UltRAM) 25 mg Q6H PRN PO MODERATE PAIN (4-6) 08/26/25 11:00 08/31/25 10:59 Tramadol HCl (UltRAM) 50 mg Q6H PRN PO SEVERE PAIN (7-10) 08/20/25 17:00 08/25/25 16:59 DC 08/25/25 09:24 50 MG Tramadol HCl (UltRAM) 50 mg Q6H PRN PO SEVERE PAIN (7-10) 08/26/25 11:00 08/31/25 10:59 08/26/25 13:31 50 MG Vancomycin HCl 250 ml @ 125 mls/hr Q12H IV 08/18/25 09:00 08/19/25 20:54 DC 08/19/25 09:39 125 MLS/HR Vancomycin HCl 250 ml @ 125 mls/hr Q12H IV 08/24/25 23:00 09/03/25 22:59 08/26/25 11:47 125 MLS/HR Vancomycin HCl 250 ml @ 125 mls/hr Q8H IV 08/19/25 21:30 08/21/25 00:23 DC 08/20/25 22:26 125 MLS/HR Vancomycin HCl 250 ml @ 125 mls/hr Q8H IV 08/21/25 06:30 08/21/25 08:35 DC 08/21/25 08:15 125 MLS/HR Vancomycin HCl 250 ml @ 125 mls/hr Q8H IV 08/21/25 08:00 08/21/25 06:28 DC Vancomycin HCl 250 ml @ 125 mls/hr Q8H IV 08/21/25 16:30 08/24/25 16:54 DC 08/24/25 09:32 125 MLS/HR Vancomycin HCl (Vancomycin Protocol) 1 each AD IV 08/17/25 22:00 08/31/25 21:59 DIAGNOSTICS / RADIOLOGY: [ ] ASSESSMENT: Cardiogenic shock with lactic acidosis, POA NSTEMI/ACS, POA Complete heart block, POA History of multivessel coronary artery disease, POA History of cocaine use disorder, POA Severe nonketotic hyperglycemia, POA History of to poorly controlled type 2 diabetes mellitus, POA Lactic acidosis, POA History of anemia, POA History of gastritis, POA History of hypertension, POA History of PTSD/anxiety, POA Obesity, POA Medical noncompliance, POA PLAN: patient is seen and examined at bedside, discussed with the RN, no acute events overnight, remains with the Impella support, postoperative day four from CABG x6. She is awake, following commands. Off vasopressors. Remains on heparin drip, continue with chest tube in place, continue to follow Cardiothoracic input and recommendation. NEURO: MINIMIZE CENTRAL ACTING MEDICATIONS POSSIBLE. FALL PRECAUTIONS. WELL LIGHTED ROOM THROUGH THE DAY AND MINIMIZE INTERRUPTIONS THROUGH THE NIGHT TO PREVENT ACUTE DELIRIUM. PULMONARY: SUPPLEMENTAL 02 NEEDED BIPAP NECESSARY, FOR RESPIRATORY DISTRESS TITRATE FIO2 TO KEEP SPO2 > OR = 90% DUONEBS AND CPT NEEDED IS HOURLY WHILE AWAKE FOR PULMONARY HYGIENE PRN OUT OF BED TO CHAIR TOLERATED MAINTAIN ASPIRATION PRECAUTIONS AT ALL TIMES CARDIOVASCULAR: FOLLOW HEMODYNAMICS. VITAL SIGNS PER FACILITY PROTOCOL GI & NUTRITION: CONTINUE NUTRITIONAL SUPPORT ASPIRATIONS PRECAUTIONS PROKINETIC AGENTS AND LAXATIVES NEEDED KIDNEYS & ELECTROLYTES: STRICT MONITORING OF INTAKE AND OUTPUT DAILY WEIGHTS AVOID NEPHROTOXIC AGENTS MONITOR ELECTROLYTES AND REPLACE NEEDED GOAL URINE OUTPUT OF 30ML/HR OR 0.5ML/KG/HR MEDICATIONS TO BE DOSED ACCORDING TO RENAL FUNCTION. AVOID CONTRAST IF POSSIBLE ENDOCRINE: MAINTAIN BLOOD GLUCOSE BETWEEN 100-180 AT ALL TIMES. INSULIN SLIDING SCALE FOR BLOOD GLUCOSE MANAGEMENT HYPOGLYCEMIA AND HYPERGLYCEMIA PROTOCOL IN PLACE INFECTIOUS DISEASE: TREND TEMPERATURE, WBC AND PROCALCITONIN LEVEL FOLLOW CULTURES, DEESCALATE ANTIBIOTICS SOON POSSIBLE. PANCULTURE IF NEW ONSET FEVER HEMATOLOGY & COAGULATION: MONITOR H&H. KEEP HGB > 7 TRANSFUSE 1 UNIT OF PRBC FOR HGB < 7 TRANSFUSE 1 PACK OF PLATELETS OF PLATELETS < 20, 000 WATCH FOR ANY SIGNS AND SYMPTOMS OF BLEEDING SKIN: PRESSURE ULCER PREVENTION PER FACILITY PROTOCOL SPECIALTY MATTRESS NEEDED ORTHO/REHAB CONTINUE PT/OT PRN: MEDICATIONS TYLENOL 650 MG PO EVERY 4 HRS FOR FEVER ZOFRAN 4 MG IV EVERY 6 HRS FOR N/V HYDRALAZINE 5 MG IV EVERY 4 HRS SYSTOLIC PRESSURE > 160 BOWEL REGIMENT: LACTULOSE 20 GM PO BID PRN CONSTIPATION SUPPORTIVE MEASURES: CONTINUE GI AND DVT PROPHYLAXIS DISPOSITION: PENDING IMPROVEMENT IN CLINICAL CONDITION ALL QUESTIONS ANSWERED TIME SPENT: > 35 MIN GEE MARTIN MD Aug 26, 2025 15:09
--- NOTE | 2025-08-26 15:55 | NUR ---
pATIENT'S ARTERIAL LINE bp AND CUFF PRESSURE AND THE IMPELLA PRESSURE. ART LINE IS VERY POSITIONAL, DR. GORE CAME AND SAW THE PATIENT. HE ORDERED TO START THE PATIENT ON MIDODRINE AND NOT TO START THE EPI DRIP.pATIENT WAS AWAKE, RESPONDING APPRPRIATELY. WILL CONTINUE TO MONITOR.
[2025-08-26 15:57] LABS: CREATININE 0.7 mg/dL (0.5-1.0); GLOMERULAR FILTR. RATE CALC 100.0 mL/min (>90); GLUCOSE,RANDOM 159.0 mg/dL (70-105); SODIUM SERUM 141.0 mmol/L (136-145); UREA NITROGEN, BLOOD 15.0 mg/dL (7-18)
--- NOTE | 2025-08-26 16:00 | NUR ---
PATIENT'S REMOVAL OF IMPELLA WILL BE DONE TODAY AND IS SCHEDULED FOR SUNDAY. DR. NEAL WAS INFORMED AND WAS ASKED IF SHE CAN DO IT TOMORROW. MD RESPONDED IF SHE CAN ARRANGE IT WITH [employer] OPERATOR TOMORROW.
--- NOTE | 2025-08-26 16:43 | NUR ---
DR. MAN CAME AND HAS SEEN THE PATIENT. PATIENT WAS MADE AWARE THAT THE PATIENT WAS ON SOMEWHAT LOW. MD ORDERED TO START PATIENT ON EPINENEPHRINE DRIP.
[2025-08-26 17:26] LABS: ABG BASE EXCESS 3.7 mmol/L (-2.0-3.0); ABG HCO3 26.7 mmol/L (21.0-28.0); ABG OXYGEN SATURATION 90.2 % (94.0-98.0); ABG PCO2 35 mmHg (32-45); ABG PH 7.506 (7.350-7.450); CARBON MONOXIDE 0.8 % (0.5-1.5); DEVICE COMMENT LR; PO2, ARTERIAL BG 55.9 mmHg (83.0-108.0); TEMPERATURE, CELSIUS BG 37.0 CELSIUS (35.5-37.0); VENT MODE, BG NC (ROOM AIR)
--- NOTE | 2025-08-26 18:47 | HMCIMG ---
EXAM: CR Chest, 2 View. CLINICAL HISTORY: SOB COMPARISON: xray chest 08/25/2025 FINDINGS: Right jugular [place]-Gu[place]ume catheter tip unchanged in position. Changes of median sternotomy. Persistent haziness bilateral lower lungs and blunting of the left lateral costophrenic angle MEDIASTINUM: The cardiomediastinal silhouette is within normal limits. BONES: No aggressive appearing osseous lesion seen. IMPRESSION: 1. No acute cardiopulmonary findings. 2. Right jugular [place]Gu[place]ume catheter tip unchanged in position. 3. Post-median sternotomy changes. 4. Persistent bilateral lower lung haziness and blunting of the left lateral costophrenic angle, improved compared with the prior exam /[place]
--- NOTE | 2025-08-26 19:36 | NUR ---
status Pt has been restless, anxious and shortness of breath. HRs 40'S as per bedside nurse and hydroelectric systems technician looks like complete heart block sbp 90's to upper 80's. 12 lead ekg done shows wide QRS rhythm and left bundle branch block.
--- NOTE | 2025-08-26 19:42 | NUR ---
Dr. Chris Perez called updated on pt status and rhythm order stated that if shes in heart block we need to pace her and we can use levophed or neosynephrine for bp support.
--- NOTE | 2025-08-26 19:47 | NUR ---
cardiology page sent out to cardiology Dr. Hoyos due to unable to pace patient with transvenous pacer, pending call back.
--- NOTE | 2025-08-26 19:57 | EKG ---
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: COLTEN : 1965 Requested By: ETHAN MAN Order Number: [id number] [place] MD: Jem Bacon Measurements Intervals [place] Rate: 47 P: 0 [place]: 0 QRS: 64 QRSD: 124 T: 110 QT: 514 QTc: 454 Interpretive Statements Wide QRS rhythm Left bundle branch block Compared to ECG 08/20/2025 20:59:36 Uncertain supraventricular rhythm now present Left bundle-branch block now present Sinus tachycardia no longer present Incomplete right bundle-branch block no longer present Myocardial infarct finding no longer present ST (T wave) deviation no longer present Electronically Signed On 08-27-2025 16:11:27 CDT by Jem Bacon Please click the below link to view image of tracing.
--- NOTE | 2025-08-26 20:15 | NUR ---
levophed pt started on levophed at 0.05 mcg/kg/min due to sbp 80's.
--- NOTE | 2025-08-26 20:35 | PN ---
SUBJECTIVE: This 60-year-old status post CABG and ligation of left atrial appendage, coursing postop day #6. The patient had Impella supported surgery with a CP through the groin. The pulses on that particular extremity are present and the Impella has been now weaned to P2. The patient was scheduled for removal of the Impella today. Unfortunately, she had a full meal, so the surgery had to be canceled. I will try to remove the Impella in the optical lab technician tomorrow. If not possible, then we will remove it on Sunday morning. We will continue mild support. PLAN: * Coronary artery disease. Continue aspirin. We will hold beta blockers. * Fluid overload, Lasix 20 mg twice a day. * Disposition: Hemodynamically stable, on low Impella support. No inotropes. We will start low-dose epinephrine in preparation for removal of Impella. TID: [id number] RECEIPT: [id number]
--- NOTE | 2025-08-26 20:45 | NUR ---
cardiology Dr. Hoyos paged again due to no call back.
--- NOTE | 2025-08-26 20:54 | NUR ---
status Pt heart rate increased to 60-70's looks sinus rhythm at this time. RR in the 16 previous 30 and looks more comfortable. still no call back from Dr. Hoyos.
--- NOTE | 2025-08-26 21:46 | PN ---
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 Patient assessed at bedside. Denies chest pain, palpitation, or shortness for breath. She is in no apparent respiratory distress saturating 100% on 3 L via nasal cannula we will start weaning off FiO2. Hemodynamically stable. On impella support now weaned at P2. Removal of Impella has been at tentative rescheduled for Sunday. No major overnight events reported. Plan: Follow CT surgeon recs Continues on Lasix, Follow I&Os Daily chest x-ray Antibiotics and following cultures, on vanc and ceftriaxone. Impella support Amiodarone for rate control Continues with heparin drip Monitor for bleeding Vasoactive infusion: Epi low dose ABX: Completed 10 days of Rocephin and 9 days of Vancomycin. Ancef completed x 3. Lines/tubes: [place], Impella, chest tube, [place], FC O2 on 3L Total critical care time spent 35 minutes, this excludes any procedures performed or any time spent in educational or teaching. REVIEW OF SYSTEMS: 12 point ROS reviewed with patient. Pertinent positives mentioned above. Otherwise negative. PHYSICAL EXAM: GENERAL: alert, weak, awake oriented x 3 HEENT: EOMI, Sclera non icteric, moist mucosa NECK: Supple, no JVD, trachea midline LUNGS: Clear breath sounds bilaterally. No wheezes HEART: TVP Normal S1 and S2, without murmurs ABD: Abdomen soft, nontender. Bowel sounds present EXT: No clubbing cyanosis or edema NEURO: Alert and oriented to person, follows commands Vital Signs (last 8hr) Date Time Temp Pulse Resp B/P (MAP) Pulse Ox O2 Delivery O2 Flow Rate FiO2 08/26/25 20:18 93/51 08/26/25 19:50 08/26/25 19:30 47 30 Venti Mask 18.0 50 08/26/25 18:24 48 28 112/47 (68) 100 74/53 (60) 08/26/25 18:15 48 23 100 75/54 (61) 08/26/25 18:09 48 28 88/59 (69) 100 78/55 (63) 08/26/25 18:00 49 27 100 77/63 (68) 08/26/25 17:54 49 27 95/60 (72) 100 77/65 (69) 08/26/25 17:45 49 28 100 81/58 (66) 08/26/25 17:40 49 32 94/46 (62) 100 94/81 (85) 08/26/25 17:26 76 26 60 08/26/25 17:23 08/26/25 17:07 80 25 88/38 (55) 98 45/31 (36) 08/26/25 16:39 80 15 106/51 (69) 98 101/93 (96) 08/26/25 16:30 80 14 98 102/94 (97) 08/26/25 16:15 80 14 99 104/95 (98) 08/26/25 16:09 80 14 94/49 (64) 98 102/93 (96) 08/26/25 16:00 98.2 08/26/25 15:39 80 23 92/45 (61) 97 56/42 (47) 08/26/25 15:26 80 26 100/48 (65) 98 43/33 (36) 08/26/25 15:09 80 29 90/45 (60) 99 08/26/25 15:00 98 Nasal Cannula* 3 32 08/26/25 14:39 80 37 102/49 (66) 98 08/26/25 14:09 80 20 99/45 (63) 98 08/26/25 13:50 80 30 89/44 (59) 98 08/26/25 13:39 80 26 89/50 (63) 98 LABS: Hematology Labs: Test 08/26/25 04:38 08/25/25 02:37 Range/Units White Blood Count 8.7 4.8-10.8 K/uL Red Blood Count 2.90 L 4.00-5.50 MIL/uL Hemoglobin 8.8 L 12.0-16.0 g/dL Hematocrit 27.7 L 36-48 % Mean Corpuscular Volume 95.5 79-99 fL Mean Corpuscular Hemoglobin 30.3 27.0-33.0 pg Mean Corpuscular Hemoglobin Concent 31.8 L 32.0-36.0 g/dL Red Cell Distribution Width 19.3 H 11.0-15.5 % Platelet Count 112 L 130-400 K/uL Mean Platelet Volume 12.0 H 7.5-10.5 fL Nucleated Red Blood Cells 0.2 H 0.0-0.19 % Immature Granulocyte % (Auto) 2.2 H 0-1 % Neutrophils (%) (Auto) 68.7 40.0-77.0 % Lymphocytes (%) (Auto) 19.3 L 21.0-51.0 % Monocytes (%) (Auto) 7.3 3.0-13.0 % Eosinophils (%) (Auto) 2.3 0.0-8.0 % Basophils (%) (Auto) 0.2 0.0-5.0 % Neutrophils # (Auto) 6.7 1.8-7.7 K/uL Lymphocytes # (Auto) 1.9 1.0-4.8 K/uL Monocytes # (Auto) 0.7 0.1-1.0 K/uL Eosinophils # (Auto) 0.22 0.00-0.70 K/uL Basophils # (Auto) 0.02 0.00-0.20 K/uL Absolute Immature Granulocyte (auto 0.21 0-1 K/uL Red Blood Cell Morphology See comments Chemistry Labs: Test 08/26/25 20:35 08/26/25 15:42 08/26/25 04:38 Range/Units Whole Blood Glucose 165 H 70-110 MG/DL Sodium Level 141 136-145 mmol/L Potassium Level 4.0 3.5-5.1 mmol/L Chloride Level 108 101-111 mmol/L Carbon Dioxide Level 31 21-32 mmol/L Blood Urea Nitrogen 15 7-18 mg/dL Creatinine 0.7 0.5-1.0 mg/dL Glomerular Filtration Rate Calc 100 >90 mL/min Random Glucose 159 H 70-105 mg/dL Total Calcium 7.6 L 8.5-10.1 mg/dL Magnesium Level 1.60 L 1.80-2.40 mg/dL Ionized Calcium 1.12 L 1.15-1.33 MMOL/L Total Bilirubin 0.4 0.2-1.0 mg/dL Aspartate Amino Transf (AST/SGOT) 42 H 10-37 U/L Alanine Aminotransferase (ALT/SGPT) 28 12-78 U/L Alkaline Phosphatase 238 H 50-136 U/L Total Protein 5.5 L 6.0-8.3 g/dL Albumin 1.8 L 3.5-5.0 g/dL Coagulation Labs: Test 08/26/25 04:38 Range/Units Prothrombin Time 11.6 9.6-11.6 SEC Prothromb Time International Ratio 1.11 0.85-1.15 Activated Partial Thromboplast Time 52.7 H 26.3-35.5 SEC Fibrinogen 565 *H 180-350 mg/dL DIAGNOSTICS / RADIOLOGY RESULTS: [[place] [address] [place] [address] IMAGING REPORT Signed PATIENT: LUL ARTHUR MR#: [id number] : 1965 SEX: F AGE: 60 LOCATION: 2BH ORDER 56 STATUS: ADM IN REPORT#: [id number] SERVICE 54 REASON: SOB ORDERING PHYSICIAN: OLIVER KONG PROCEDURE: CXR1VW - CHEST 1VW EXAM: CR Chest, 2 View. CLINICAL HISTORY: SOB COMPARISON: xray chest 08/25/2025 FINDINGS: Right jugular [place]-Guillaume catheter tip unchanged in position. Changes of median sternotomy. Persistent haziness bilateral lower lungs and blunting of the left lateral costophrenic angle MEDIASTINUM: The cardiomediastinal silhouette is within normal limits. BONES: No aggressive appearing osseous lesion seen. IMPRESSION: 1. No acute cardiopulmonary findings. 2. Right jugular [place]-Guillaume catheter tip unchanged in position. 3. Post-median sternotomy changes. 4. Persistent bilateral lower lung haziness and blunting of the left lateral costophrenic angle, improved compared with the prior exam /[place] DICTATED BY: RIN YEN MD DATE: 08/26/251945 ELECTRONICALLY SIGNED BY: RIN YEN MD DATE: 08/26/251945 ] PLAN NEURO: Minimize central acting medications as possible. Fall Precautions. Well lighted room through the day and minimize interruptions through the night to prevent acute delirium. PULMONARY: Supplemental 02 as needed Titrate Fio2 to keep Spo2 > or = 90% DuoNebs and CPT as needed IS hourly while awake for pulmonary hygiene CARDIOVASCULAR: Follow hemodynamics. Titrate vasopressor to keep MAP >65 or systolic blood pressure >95mmHg GI & NUTRITION: Continue nutritional support Aspirations precautions Prokinetic agents and laxatives as needed Clear liquid diet as tolerated KIDNEYS & ELECTROLYTES: Strict monitoring of intake and output Daily weights Avoid nephrotoxic agents Monitor electrolytes and replace as needed Goal urine output of 30mL/hr or 0.5mL/kg/hr ENDOCRINE: Maintain blood glucose between 100-180 at all times. Insulin sliding scale for blood glucose management INFECTIOUS DISEASE: Trend temperature. [place]-culture if febrile. HEMATOLOGY & COAGULATION: Monitor H&H. Keep Hgb > 7 Transfuse 1 unit of PRBC for Hgb < 7 Transfuse 1 pack of platelets of platelets < 20, 000 Watch for any signs and symptoms of bleeding SKIN: Pressure ulcer prevention per facility protocol Rehab: PT/OT Prophylaxis: GI: PPI DVT: SCDs patient on heparin drip Code Status: Full Resuscitation Disposition: ICU ATTESTATION BY PHYSICIAN I have evaluated the patient chart, medical records, and spoke with appropriate staff. I reviewed the documentation, medical decision making, and treatment plan as noted by the mid-level provider above. I agree with the findings and plan of care. Ata Foster MD, [facility] Aug 26, 2025 21:46
[2025-08-27] VITALS (95 sets, daily range): BP systolic 50–172; BP diastolic 30–160; PULSE 63–90; RESP 10–58; TEMP 97.8–99; O2SAT 97–100
--- NOTE | 2025-08-27 03:34 | NUR ---
bath pt offered bed bath and refused stated that she does not want bath because yesterday after her bath is when she started to feel short of breath also does not want to turn. pt did want hair washed.
[2025-08-27 04:06] LABS: ABG BASE EXCESS 1.3 mmol/L (-2.0-3.0); ABG HCO3 25.1 mmol/L (21.0-28.0); ABG OXYGEN SATURATION 98.4 % (94.0-98.0); ABG PCO2 36 mmHg (32-45); ABG PH 7.457 (7.350-7.450); CARBON MONOXIDE 0.7 % (0.5-1.5); PO2, ARTERIAL BG 134.5 mmHg (83.0-108.0); TEMPERATURE, CELSIUS BG 37.0 CELSIUS (35.5-37.0); VENT MODE, BG VM (ROOM AIR)
[2025-08-27 04:41] LABS: IMMATURE GRANULOCYTE ABSOLUTE 0.64 K/uL (0-1); NUCLEATED RED BLOOD CELLS 0.2 % (0.0-0.19); PLATELET COUNT (AUTO) 152 K/uL (130-400); RED BLOOD CELL COUNT(AUTO) 2.96 MIL/uL (4.00-5.50); RED CELL DISTRIBUTION WIDTH 19.9 % (11.0-15.5); WHITE BLOOD COUNT (AUTO) 12.2 K/uL (4.8-10.8)
[2025-08-27 04:46] LABS: INR 1.08 (0.85-1.15)
[2025-08-27 04:52] LABS: ASPARTATE AMINOTRANSFERASE 50.0 U/L (10-37); CREATININE 0.6 mg/dL (0.5-1.0); GLOMERULAR FILTR. RATE CALC 104.0 mL/min (>90); GLUCOSE,RANDOM 186.0 mg/dL (70-105); SODIUM SERUM 140.0 mmol/L (136-145); TOTAL PROTEIN, SERUM 6.1 g/dL (6.0-8.3); UREA NITROGEN, BLOOD 12.0 mg/dL (7-18)
--- NOTE | 2025-08-27 08:14 | HMCIMG ---
EXAM: CHEST RADIOGRAPH, ONE VIEW Technique: A single frontal chest radiograph was obtained. Single-view technique limits sensitivity for small pleural effusions, small pneumothoraces, and subtle parenchymal or mediastinal abnormalities. Clinical Information: Status post coronary artery bypass grafting. Comparison: Chest radiograph dated August 25, 2025 at 07:44 [place] Daylight Time. Findings: Median sternotomy changes are present. Cardiac silhouette is enlarged. Pulmonary vascular congestion is present. A right transjugular pulmonary artery ([place]???Guillaume) catheter is in place with the tip projecting over the region of the main pulmonary artery. Small bilateral pleural effusions with overlying atelectasis are present and appear unchanged from the prior examination. No pneumothorax is identified on this single projection. No acute osseous abnormality is identified. Impression: * Cardiomegaly with pulmonary vascular congestion. * Small bilateral pleural effusions with adjacent atelectasis, stable compared with August 25, 2025. * Right pulmonary artery catheter in expected position. * No pneumothorax identified on a single-view examination. /[place]
--- NOTE | 2025-08-27 10:50 | PN ---
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 Patient assessed at bedside. Denies chest pain, palpitation, or shortness for breath. She is in no apparent respiratory distress saturating 100% on 3 L via nasal cannula we will start weaning off FiO2. Hemodynamically stable.now on impella of P4. Per RN last night pt started on Levophed due to hypotension and complete heart block into the 40s which was resolved after Levophed was started. Plan: Follow CT surgeon recs Continues on Lasix, Follow I&Os Daily chest x-ray Antibiotics and following cultures, on vanc and ceftriaxone. Impella support, plans for removal tomorrow per CV Continues with heparin drip Monitor for bleeding Vasoactive infusion: Epi low dose ABX: Completed 10 days of Rocephin and 9 days of Vancomycin. Ancef completed x 3. Lines/tubes: [place], Impella, chest tube, [place], FC O2 on 3L Total critical care time spent 35 minutes, this excludes any procedures performed or any time spent in educational or teaching. REVIEW OF SYSTEMS: 12 point ROS reviewed with patient. Pertinent positives mentioned above. Otherwise negative. PHYSICAL EXAM: GENERAL: alert, weak, awake oriented x 3 HEENT: EOMI, Sclera non icteric, moist mucosa NECK: Supple, no JVD, trachea midline LUNGS: Clear breath sounds bilaterally. No wheezes HEART: Normal S1 and S2, without murmurs ABD: Abdomen soft, nontender. Bowel sounds present EXT: No clubbing cyanosis or edema. Impella to rt groin. NEURO: Alert and oriented to person, follows commands Vital Signs (last 8hr) Date Time Temp Pulse Resp B/P (MAP) Pulse Ox O2 Delivery O2 Flow Rate FiO2 08/27/25 08:00 98.4 08/27/25 06:39 70 26 N/Cannula Low lpm 4.0 36 08/27/25 06:00 72 22 132/74 (93) 99 36 103/62 (76) 08/27/25 05:45 70 24 128/66 (86) 98 92/62 (72) 08/27/25 05:30 68 10 112/62 (79) 100 90/59 (69) 08/27/25 05:15 71 11 112/77 (89) 100 94/60 (71) 08/27/25 05:00 82 13 115/60 (78) 100 36 114/94 (101) 08/27/25 04:45 75 13 113/42 (65) 100 95/70 (78) 08/27/25 04:30 68 14 118/63 (81) 100 94/65 (75) 08/27/25 04:15 74 25 125/68 (87) 96 96/58 (71) 08/27/25 04:11 100 Venti Mask+ 15 50 08/27/25 04:00 97.9 69 19 129/70 (89) 99 50 84/50 (61) 08/27/25 03:45 68 18 133/65 (87) 100 83/62 (69) 08/27/25 03:30 66 14 119/63 (81) 100 115/93 (100) 08/27/25 03:15 67 22 128/67 (87) 97 144/123 (130) 08/27/25 03:00 67 20 124/67 (86) 100 50 141/128 (132) LABS: Hematology Labs: Test 08/27/25 04:01 Range/Units White Blood Count 12.2 #H 4.8-10.8 K/uL Red Blood Count 2.96 L 4.00-5.50 MIL/uL Hemoglobin 9.0 L 12.0-16.0 g/dL Hematocrit 28.1 L 36-48 % Mean Corpuscular Volume 94.9 79-99 fL Mean Corpuscular Hemoglobin 30.4 27.0-33.0 pg Mean Corpuscular Hemoglobin Concent 32.0 32.0-36.0 g/dL Red Cell Distribution Width 19.9 H 11.0-15.5 % Platelet Count 152 # 130-400 K/uL Mean Platelet Volume 11.2 H 7.5-10.5 fL Immature Granulocyte % (Auto) 5.2 H 0-1 % Neutrophils (%) (Auto) 60.8 40.0-77.0 % Lymphocytes (%) (Auto) 21.6 21.0-51.0 % Monocytes (%) (Auto) 9.6 3.0-13.0 % Eosinophils (%) (Auto) 2.3 0.0-8.0 % Basophils (%) (Auto) 0.5 0.0-5.0 % Neutrophils # (Auto) 7.4 1.8-7.7 K/uL Lymphocytes # (Auto) 2.6 1.0-4.8 K/uL Monocytes # (Auto) 1.2 H 0.1-1.0 K/uL Eosinophils # (Auto) 0.28 0.00-0.70 K/uL Basophils # (Auto) 0.06 0.00-0.20 K/uL Absolute Immature Granulocyte (auto 0.64 0-1 K/uL Nucleated Red Blood Cells 0.2 H 0.0-0.19 % Chemistry Labs: Test 08/27/25 05:58 08/27/25 04:01 Range/Units Whole Blood Glucose 176 H 70-110 MG/DL Sodium Level 140 136-145 mmol/L Potassium Level 4.0 3.5-5.1 mmol/L Chloride Level 106 101-111 mmol/L Carbon Dioxide Level 29 21-32 mmol/L Blood Urea Nitrogen 12 7-18 mg/dL Creatinine 0.6 0.5-1.0 mg/dL Glomerular Filtration Rate Calc 104 >90 mL/min Random Glucose 186 H 70-105 mg/dL Total Calcium 7.9 L 8.5-10.1 mg/dL Ionized Calcium 1.12 L 1.15-1.33 MMOL/L Magnesium Level 2.10 1.80-2.40 mg/dL Total Bilirubin 0.5 # 0.2-1.0 mg/dL Aspartate Amino Transf (AST/SGOT) 50 H 10-37 U/L Alanine Aminotransferase (ALT/SGPT) 29 12-78 U/L Alkaline Phosphatase 265 H 50-136 U/L Total Protein 6.1 6.0-8.3 g/dL Albumin 1.8 L 3.5-5.0 g/dL Coagulation Labs: Test 08/27/25 04:01 Range/Units Prothrombin Time 11.4 9.6-11.6 SEC Prothromb Time International Ratio 1.08 0.85-1.15 Activated Partial Thromboplast Time 44.8 H 26.3-35.5 SEC Fibrinogen 612 *H 180-350 mg/dL DIAGNOSTICS / RADIOLOGY RESULTS: [ [facility] [address] [place] [address] IMAGING REPORT Signed PATIENT: LUL ARTHUR MR#: [id number] : 1965 SEX: F AGE: 60 LOCATION: [facility] ORDER 7 STATUS: ADM IN REPORT#: [id number] SERVICE REASON: impella placement ORDERING PHYSICIAN: CHANDRIKA ELAINE DO PROCEDURE: ECHO FU LD - ECHO 2-D F/U-LTD APPROVED REPORT EXAM: Limited two-dimensional echocardiogram with color Doppler. INDICATION ICD: Assess impella placement 2D Dimensions IVSd 0.8 (0.7-1.1cm) LVEF(%) 49.7 (>50%) LVED Vol(simp.) 120.0 mL LVDd 4.9 (3.8-5.6cm) FS(%) 25 % LVES Vol(simp.) 49.0 mL PWd 0.7 (0.7-1.1cm) LA (2D) 4.9 (1.6-4.0cm) LVEF(%, simp.) 59 % IVSs 1.0 cm Ao Root(2D) 3.5 (2.0-3.7cm) LVDs 3.6 (2.5-4.0cm) PWs 1.2 cm Deformation Strain Apical 4 -17.6 % Apical 2 -16.7 % Apical 3 -13.3 % Global Strain -15.9 % Left Ventricle Left ventricular cavity size is normal. Impella device measuring 5.6cm into LV. GLS -16.0% LVEF is 55-60%. Great Vessels The IVC is normal in size and collapses >50% with inspiration. Pericardium No pericardial effusion. Other Information Quality : Limited/Follow-up Conclusion Left ventricular cavity size is normal. Impella device measuring 5.6cm into LV. LVEF is 55-60%. No pericardial effusion. DICTATED BY: FIONA KAY MD DATE: 08/27/25 0839 ELECTRONICALLY SIGNED BY: FIONA KAY MD DATE: 08/27/25 1610 ] PLAN NEURO: Minimize central acting medications as possible. Fall Precautions. Well lighted room through the day and minimize interruptions through the night to prevent acute delirium. PULMONARY: Supplemental 02 as needed Titrate Fio2 to keep Spo2 > or = 90% DuoNebs and CPT as needed IS hourly while awake for pulmonary hygiene CARDIOVASCULAR: Follow hemodynamics. Titrate vasopressor to keep MAP >65 or systolic blood pressure >95mmHg GI & NUTRITION: Continue nutritional support Aspirations precautions Prokinetic agents and laxatives as needed Clear liquid diet as tolerated KIDNEYS & ELECTROLYTES: Strict monitoring of intake and output Daily weights Avoid nephrotoxic agents Monitor electrolytes and replace as needed Goal urine output of 30mL/hr or 0.5mL/kg/hr ENDOCRINE: Maintain blood glucose between 100-180 at all times. Insulin sliding scale for blood glucose management INFECTIOUS DISEASE: Trend temperature. Astudillo-culture if febrile. HEMATOLOGY & COAGULATION: Monitor H&H. Keep Hgb > 7 Transfuse 1 unit of PRBC for Hgb < 7 Transfuse 1 pack of platelets of platelets < 20, 000 Watch for any signs and symptoms of bleeding SKIN: Pressure ulcer prevention per facility protocol Rehab: PT/OT Prophylaxis: GI: PPI DVT: SCDs patient on heparin drip Code Status: Full Resuscitation Disposition: ICU ATTESTATION BY PHYSICIAN The patient has been seen and evaluated, the case has been discussed with the BRICK MOLDER HAND, I agree with the clinical findings and plan of care. Jaylon Sapp MD, NELLY J AGACN Aug 27, 2025 10:50
--- NOTE | 2025-08-27 10:50 | EKG ---
[facility] Test Date: 2025-08-26 Test Time: 18:19:52 Pat Name: LUL ARTHUR Department: [facility] Room: 209 1 Gender: F Quarter Section Ironer: SALONIMOHSENMaribeth : 1965 Requested By: ETHAN MAN Order Number: [id number] Reading MD: Jem Bacon Measurements Intervals [place] Rate: 49 P: 0 OK: 0 QRS: 76 QRSD: 124 T: 92 QT: 516 QTc: 466 Interpretive Statements Junctional rhythm Left bundle branch block Compared to ECG 08/20/2025 20:59:36 Uncertain supraventricular rhythm now present Left bundle-branch block now present Sinus tachycardia no longer present Incomplete right bundle-branch block no longer present Myocardial infarct finding no longer present ST (T wave) deviation no longer present Electronically Signed On 08-27-2025 16:11:18 CDT by Jem Bacon Please click the below link to view image of tracing.
--- NOTE | 2025-08-27 12:31 | PN ---
[facility] PROGRESS NOTE Date of Service: Aug 27, 2025 Time of Service: 12:29 SUBJECTIVE: This is a 60-year-old female with underlying history of obesity, coronary artery disease, poorly controlled type 2 diabetes mellitus, history of anemia, history of cocaine use, tobacco use disorder, history of CVA in 2008, who presented to the ER for further evaluation of severe substernal chest pain and shortness of breadth. Patient reports having history of cocaine use with last use of cocaine yesterday. She reports having severe substernal chest pain that started today in it has been associated with dizziness, and generalized malaise. Pain is 10/1 0 in severity. Patient denies any syncope or fall. She has been having lightheadedness with ambulation. She has not been able to follow up with Cardiology as outpatient. She has a previous history of abnormal CT coronary angiography when she was hospitalized in 04/2025 and she was treated medically. With regards to type 2 diabetes mellitus, she reports being on metformin as ou tpatient. On presentation to the hospital, patient was noted to be hypotensive with blood pressure of 80/60 with heart rate of 40 with EKG showing complete heart block. [place] [address], hemoglobin 12.4, platelet count of 888670. BMP showed sodium of 133, potassium 4.8, chloride of 99, BUN of 21, creatinine 1.0, blood glucose of 403, [place] [address]. Chest x-ray showed no acute infiltrates. Patient will be admitted for further management of cardiogenic shock, NSTEMI, complete heart block with history of poorly controlled type 2 diabetes mellitus. Patient will be emergently taken to the entry level lab technician for cardiac catheterization/ PCI and tentative plan for MCS support. Patient will be admitted to intensive care unit and she remains critically ill. 08/14 patient remains critically ill requiring Impella and dopamine support. UDS has demonstrated benzos and cocaine 08/15 patient remains on Impella 08/16 patient appears to be resting comfortably in bed. She remains on Impella and dopamine support. She reports she would like to be bathed and wants her hair combed significant and she is feeling better 08/17 patient is on GI soft diet tolerating well. She remains on Impella support 08/18 patient is resting comfortably in bed. She remains on Impella. Tolerating oral intake. 08/19 hemoglobin dropped to 6.5 from 7.0-7.5 yesterday. I agree with transfusing 1 unit PRBC. Patient remains on Impella. Patient is resting comfortably in bed. 08/20 patient is resting comfortably in bed. She remains on Impella support pending recovery for CABG. 08/21 patient underwent CABG x3 yesterday, no complications reported patient remains on Impella the patient is on norepinephrine, amiodarone, dopamine, insulin drip 08/22 postop day 2. From CABG x3. Patient does awaken to verbal stimulation and states she has some chest pain and slight shortness for breath she feels the pain as incisional from her open heart procedure. He is on p.o. amiodarone and being weaned off norepinephrine. 08/23 postop day 3 from CABG x3. Patient is in bed visiting with her son at the bedside. She states she has no shortness for breath, she does have some incisional chest discomfort, no nausea or vomiting or diarrhea. She is off nor epinephrine drip and remains with the Impella assist. 08/24 patient is seen and examined at bedside, discussed with the RN, no acute events overnight, remains with the Impella support, postoperative day four from CABG x3. She is awake, following commands. Off vasopressors. Remains on heparin drip and sodium bicarbonate drip. Continue to follow critical Care and Cardiothoracic input and recommendation. 08/25 PATIENT IS SEEN AND EXAMINED AT BEDSIDE, DISCUSSED WITH THE RN, NO ACUTE EVENTS OVERNIGHT, PATIENT FOLLOWING COMMANDS, SHE REMAINS WITH THE IMPELLA SUPPORT, CHEST TUBE IN PLACE, POSTOPERATIVE DAY FIVE, STATUS POST CABG. CU RRENTLY OFF PRESSORS, ON HEPARIN DRIP. CONTINUE TO FOLLOW CRITICAL CARE AND CARDIOTHORACIC INPUT AND RECOMMENDATIONS. POSSIBLE REMOVAL OF IMPELLA SUPPORT TODAY. 08/26 patient is seen and examined at bedside, discussed with the RN, no acute events overnight, remains with the Impella support, postoperative day four from CABG x6. She is awake, following commands. Off vasopressors. Remains on heparin drip, continue with chest tube in place, continue to follow Cardiothoracic input and recommendation. 08/27 patient is seen and examined at bedside, case discussed with the RN, no acute events overnight, patient awake, following commands, still with the Impella support, status post CABG. No chest pain, shortness shortness for breath, no nausea, no vomiting. Continue with chest tube in place. BP 132/74, afebrile, saturating 99% 4 L nasal cannula. CBC with a hemoglobin 9.0, hematocrit 28.1, WBC 12.2, with a platelet count of 152. Sodium 140, potassium 4.0, BUN of 12, creatinine 0.6, initially 2.10. Cardiology input noted and appreciated, echocardiogram ordered, we will follow report. Continue to follow Cardiothoracic input and recommendation. REVIEW OF SYSTEMS CONSTITUTIONAL: generalized fatigue, malaise NEUROLOGICAL: Denies headache, amaurosis fugax, motor weakness, sensory deficit, vertigo/spinning sensation, gait abnormalities, or tremors. ENT: No hearing loss, otalgia, otorrhea, rhinitis, rhinorrhea, hoarseness, or sore throat. CARDIOVASCULAR: Mild incisional chest pain, no shortness breath PULMONARY: Denies any shortness of breath, cough, phlegm/sputum, hemoptysis, pleuritic chest pain. SLEEP: Denies morning headaches, daytime somnolence or napping. Denies difficulty falling asleep, staying asleep, waking from sleep. Denies knowledge of snoring. GASTROINTESTINAL: No nausea, Denies any type of dysphagia to either liquids or solids. Denies vomiting, pyrosis, early satiety, abdominal pain, diarrhea, constipation, or changes in stool consistency or caliber. Denies coffee-ground emesis, hematemesis, hematochezia, or melanotic stools. GENITOURINARY: Denies frequency, urgency, nocturia, hematuria or incontinence (Storage/Irritative symptoms.) Low urinary stream, straining to void, urinary intermittency or hesitancy, splitting of the voiding stream, terminal dribbling. ENDOCRINOLOGIC: Denies polyuria, polydipsia, polyphagia or heat/cold intolerances. HEMATOLOGIC: Denies thrombophilia/previous clots, or coagulopathy/bleeding disorders. ONCOLOGIC: Denies personal history of malignancy. DERMATOLOGIC: Denies rashes or pruritus. PSYCHIATRIC: Denies any suicidal or homicidal ideation. Denies hallucinations. PHYSICAL EXAM GENERAL APPEARANCE: The patient is awake, appears ill and in no distress NEUROLOGICAL: Cranial nerves II-XII grossly intact. Motor is 5/5 in bilateral upper and lower extremities proximal to distal. No sensory deficits. HEENT: Face is symmetric. Pupils are equal and reactive. Extraocular movements are intact. NECK: Supple. No JVD. No thyromegaly. No submental, submandibular, pre- /postauricular, occipital or supraclavicular lymphadenopathy. CHEST: Normal chest expansion. No Telemetry. LUNGS: minimal crackles noted of the bilateral lung bases CARDIOVASCULAR: Regular. S1 and S2 normal. No appreciable rubs, murmurs or gallops. ABDOMEN: Soft, nontender, and nondistended. There is no rebound, voluntary guarding, or rigidity. : Deferred. No Coombs. EXTREMITIES: trace edema noted of the bilateral lower extremities SKIN: No skin breakdown. Vital Signs (last 8hr) Date Time Temp Pulse Resp B/P (MAP) Pulse Ox O2 Delivery O2 Flow Rate FiO2 08/27/25 11:36 72 26 N/Cannula Low lpm 4.0 36 08/27/25 08:00 98.4 08/27/25 06:39 70 26 N/Cannula Low lpm 4.0 36 08/27/25 06:00 72 22 132/74 (93) 99 36 103/62 (76) 08/27/25 05:45 70 24 128/66 (86) 98 92/62 (72) 08/27/25 05:30 68 10 112/62 (79) 100 90/59 (69) 08/27/25 05:15 71 11 112/77 (89) 100 94/60 (71) 08/27/25 05:00 82 13 115/60 (78) 100 36 114/94 (101) 08/27/25 04:45 75 13 113/42 (65) 100 95/70 (78) 08/27/25 04:30 68 14 118/63 (81) 100 94/65 (75) LABS: Laboratory: Test 08/27/25 11:52 08/27/25 11:11 08/27/25 04:04 08/27/25 04:01 Range/Units Whole Blood Glucose 256 #H 70-110 MG/DL Activated Partial Thromboplast Time 51.0 H 26.3-35.5 SEC Blood Gas Specimen Type Arterial Arterial Blood pH 7.457 H 7.350-7.450 Arterial Blood Partial Pressure CO2 36 32-45 mmHg Arterial Blood Partial Pressure O2 134.5 H 83.0-108.0 mmHg Arterial Blood HCO3 25.1 21.0-28.0 mmol/L Arterial Blood Oxygen Saturation 98.4 H 94.0-98.0 % Arterial Blood Base Excess 1.3 -2.0-3.0 mmol/L Hemoglobin (Blood Gas) 10.8 L 12.0-16.0 g/dL Sodium (Blood Gas) 136 136-145 MMOL/L Bedside Potassium (Blood Gas) 3.9 3.4-4.5 MMOL/L Bedside Chloride (Blood Gas) 105 98-107 MMOL/L Bedside Glucose (Blood Gas) 194 H 65-95 MG/DL Bedside Ionized Calcium (Blood Gas) 1.15 1.15-1.33 MMOL/L Bedside Lactic Acid (Blood Gas) 0.88 H 0.36-0.75 MMOL/L Blood Gas Temperature 37.0 35.5-37.0 CELSIUS Blood Gas Flow-by 15.00 0.00-15.00 L/min Blood Gas Vent Mode VM ROOM AIR FiO2 50.0 % Blood Gas Specimen Comment NAVIN RN ,LR White Blood Count 12.2 #H 4.8-10.8 K/uL Red Blood Count 2.96 L 4.00-5.50 MIL/uL Hemoglobin 9.0 L 12.0-16.0 g/dL Hematocrit 28.1 L 36-48 % Mean Corpuscular Volume 94.9 79-99 fL Mean Corpuscular Hemoglobin 30.4 27.0-33.0 pg Mean Corpuscular Hemoglobin Concent 32.0 32.0-36.0 g/dL Red Cell Distribution Width 19.9 H 11.0-15.5 % Platelet Count 152 # 130-400 K/uL Mean Platelet Volume 11.2 H 7.5-10.5 fL Immature Granulocyte % (Auto) 5.2 H 0-1 % Neutrophils (%) (Auto) 60.8 40.0-77.0 % Lymphocytes (%) (Auto) 21.6 21.0-51.0 % Monocytes (%) (Auto) 9.6 3.0-13.0 % Eosinophils (%) (Auto) 2.3 0.0-8.0 % Basophils (%) (Auto) 0.5 0.0-5.0 % Neutrophils # (Auto) 7.4 1.8-7.7 K/uL Lymphocytes # (Auto) 2.6 1.0-4.8 K/uL Monocytes # (Auto) 1.2 H 0.1-1.0 K/uL Eosinophils # (Auto) 0.28 0.00-0.70 K/uL Basophils # (Auto) 0.06 0.00-0.20 K/uL Absolute Immature Granulocyte (auto 0.64 0-1 K/uL Nucleated Red Blood Cells 0.2 H 0.0-0.19 % Prothrombin Time 11.4 9.6-11.6 SEC Prothromb Time International Ratio 1.08 0.85-1.15 Fibrinogen 612 *H 180-350 mg/dL Sodium Level 140 136-145 mmol/L Potassium Level 4.0 3.5-5.1 mmol/L Chloride Level 106 101-111 mmol/L Carbon Dioxide Level 29 21-32 mmol/L Blood Urea Nitrogen 12 7-18 mg/dL Creatinine 0.6 0.5-1.0 mg/dL Glomerular Filtration Rate Calc 104 >90 mL/min Random Glucose 186 H 70-105 mg/dL Total Calcium 7.9 L 8.5-10.1 mg/dL Ionized Calcium 1.12 L 1.15-1.33 MMOL/L Magnesium Level 2.10 1.80-2.40 mg/dL Total Bilirubin 0.5 # 0.2-1.0 mg/dL Aspartate Amino Transf (AST/SGOT) 50 H 10-37 U/L Alanine Aminotransferase (ALT/SGPT) 29 12-78 U/L Alkaline Phosphatase 265 H 50-136 U/L Total Protein 6.1 6.0-8.3 g/dL Albumin 1.8 L 3.5-5.0 g/dL Test 08/25/25 22:18 Range/Units Vancomycin Level Trough 13.6 # 10.0-20.0 UG/ML Current Medications Medications (Trade) Dose Ordered Sig/Elmer Route PRN Reason Start Time Stop Time Status Last Admin Dose Admin Acetaminophen (TYLenol 325MG TAB) 650 mg Q4H PRN PO Temp >38.3C(AFTER EXTUBATION) 08/20/25 17:00 09/19/25 16:59 Acetaminophen (TYLenol 325MG TAB) 650 mg Q6H PRN PO MILD PAIN (1-3) 08/13/25 16:30 09/12/25 16:29 08/23/25 11:01 650 MG Acetaminophen (TYLenol 500MG TAB) 500 mg Q6H PRN PO TEMP < 101.1 AND/OR HEADACHE 08/14/25 14:30 09/13/25 14:29 08/26/25 10:41 500 MG Acetaminophen (TYLenol 650MG SUPPOSITORY) 650 mg Q4H PRN RC Temp >38.3C WHILE INTUBATED 08/20/25 17:00 09/19/25 16:59 Acetaminophen (acetaMINOPHEN 1,000MG/100ML) 1,000 mg Q6H6 IVPB 08/21/25 12:00 09/20/25 11:59 08/27/25 05:55 1,000 MG Albumin Human 50 ml @ 0 mls/hr BID IV 08/18/25 09:00 08/23/25 08:59 DC 08/22/25 20:56 100 MLS/HR Albumin Human 250 ml @ 0 mls/hr AD PRN IV IF HEMODYNAMICALLY UNSTABLE 08/20/25 17:00 08/20/25 22:46 DC 08/20/25 22:46 0 MLS/HR Aminocaproic Acid 26448 mg/Sodium Chloride 310 ml @ 25 mls/hr AD IV 08/20/25 17:00 08/21/25 05:23 DC Aminocaproic Acid 28818 mg/Sodium Chloride 480 ml @ 0 mls/hr AD PRN IV BLEEDING CONTROL 08/20/25 08:00 09/19/25 07:59 Aminocaproic Acid 70894 mg/Sodium Chloride 480 ml @ 0 mls/hr AD PRN IV BLEEDING CONTROL 08/20/25 09:00 08/20/25 09:03 DC Amiodarone HCl (pacERONE 200MG) 200 mg BID PO 08/22/25 09:00 08/29/25 21:00 08/27/25 08:33 200 MG Amiodarone HCl 360 mg/Dextrose 207.2 ml @ 33.3 mls/hr AD IV 08/20/25 21:00 08/20/25 21:05 DC Amiodarone HCl 540 mg/Dextrose 310.8 ml @ 16.7 mls/hr [id number] IV 08/21/25 03:00 08/27/25 06:20 DC 08/21/25 20:12 16.7 MLS/HR Amiodarone HCL/ Dextrose 207.2 ml @ 33.3 mls/hr AD IV 08/20/25 21:30 08/21/25 10:49 DC 08/20/25 21:24 33.3 MLS/HR Aspirin (Aspirin 81mg Chew Tab) 81 mg DAILY PO 08/14/25 09:00 09/13/25 08:59 08/27/25 08:33 81 MG Atorvastatin Calcium (LIPItor 40MG) 40 mg HS PO 08/13/25 21:00 09/12/25 20:59 08/26/25 20:59 40 MG Benzocaine (Cepacol Sore Throat Lozenge) 1 each Q4H PRN MM SORE THROAT 08/26/25 11:30 09/25/25 11:29 Bisacodyl (DulcoLAX) 10 mg DAILY RC 08/17/25 09:00 08/20/25 08:59 DC 08/18/25 07:58 10 MG Calcium Carbonate (Tums 500 Mg Chew Tab) 500 tab QID PRN PO HEARTBURN 08/19/25 12:00 08/20/25 16:32 DC 08/20/25 05:10 1 TAB Calcium Gluconate 1 gm/Sodium Chloride 60 ml @ 200 mls/hr AD PRN IV HYPOCALCEMIA 08/20/25 17:00 09/19/25 16:59 08/27/25 04:26 200 MLS/HR Cefazolin Sodium (Ancef) 2 gm ONCALL IVP 08/19/25 19:30 08/21/25 08:36 DC 08/20/25 16:30 2 GM Cefazolin Sodium (Ancef) 2 gm Q8H IVPB 08/20/25 22:00 08/21/25 14:01 DC 08/21/25 13:45 2 GM Ceftriaxone Sodium (Rocephin 2gm Inj) 2 gm Q24H IVPB 08/14/25 11:30 08/24/25 11:29 DC 08/23/25 12:16 2 GM Chlordiazepoxide HCl (LIBrium 25 MG CAP) 25 mg Q2H PRN PO ALCOHOL WITHDRAWAL PROTOCOL 08/14/25 14:30 08/20/25 16:32 DC 08/16/25 23:38 25 MG Chlordiazepoxide HCl (LIBrium 25 MG CAP) 50 mg Q1H PRN PO ALCOHOL WITHDRAWAL PROTOCOL 08/14/25 14:30 08/20/25 16:32 DC Dexmedetomidine/ Sodium Chloride (PRECEdex 400MCG/ 100ML-NS) 400 mcg PROTOCOL IV 08/20/25 20:30 09/19/25 20:29 08/22/25 00:35 400 MCG Dextrose (D50w) 50 ml AD PRN IV HYPOGLYCEMIA PROTOCOL 08/20/25 17:00 09/19/25 16:59 Dextrose (D50w) 50 ml AD PRN IV HYPOGLYCEMIA PROTOCOL 08/13/25 20:00 08/20/25 22:03 DC Diphenhydramine HCl (BENAdryl INJ) 25 mg ONCE PRN IV ITCHING 08/15/25 23:00 08/17/25 22:59 DC Docusate Sodium (COLace 100MG CAP) 100 mg BID PRN PO CONSTIPATION 08/14/25 11:00 09/13/25 10:59 Dopamine HCl/ Dextrose 250 ml @ 0 mls/hr PROTOCOL IV 08/13/25 16:00 09/12/25 15:59 08/16/25 16:41 3 MLS/HR Epinephrine HCl 10 mg/Sodium Chloride 250 ml @ 14.091 mls/ hr AD PRN IV POST-OP CARDIOVASCULAR ORDERS 08/20/25 17:00 08/21/25 10:49 DC Epinephrine HCl 10 mg/Sodium Chloride 250 ml @ 0 mls/hr AD PRN IV TITRATE 08/20/25 08:00 09/19/25 07:59 08/26/25 16:56 0 MLS/HR Epinephrine HCl 10 mg/Sodium Chloride 250 ml @ 0 mls/hr AD PRN IV TITRATE 08/20/25 09:00 08/20/25 09:03 DC Famotidine (Pepcid 20mg Vial) 20 mg BID IV 08/20/25 21:00 08/22/25 08:20 DC 08/21/25 20:17 20 MG Famotidine (Pepcid 20mg Tab) 20 mg BID PO 08/22/25 09:00 09/21/25 08:59 08/27/25 08:33 20 MG Folic Acid (FOLic ACID 1 MG TABLET) 1 mg DAILY PO 08/15/25 09:00 08/17/25 09:01 DC 08/17/25 07:46 1 MG Furosemide (LASix 20MG VIAL) 20 mg Q12H IV 08/21/25 11:30 08/22/25 14:17 DC 08/22/25 11:53 20 MG Furosemide (LASix 20MG VIAL) 20 mg Q12H IV 08/22/25 21:00 08/23/25 11:37 DC 08/23/25 09:50 20 MG Furosemide (LASix 20MG VIAL) 40 mg Q12H IV 08/22/25 21:00 08/22/25 14:32 DC Furosemide (LASix 40MG VIAL) 40 mg Q12H IV 08/23/25 11:30 09/22/25 11:29 08/26/25 23:30 40 MG Gabapentin (NEURontin 300 MG CAP) 300 mg TID PO 08/23/25 14:00 09/22/25 13:59 08/27/25 08:33 300 MG Glucagon (Glucagon 1mg Kit) 1 mg AD PRN IM HYPOGLYCEMIA PROTOCOL 08/20/25 17:00 09/19/25 16:59 Glucagon (Glucagon 1mg Kit) 1 mg AD PRN IM HYPOGLYCEMIA PROTOCOL 08/13/25 20:00 08/21/25 10:49 DC Heparin Sodium (Porcine) (HEParin 5,000 UNIT VIAL) *calculation based on ACTUAL B... AD PRN IV HEPARIN PROTOCOL 08/13/25 16:30 08/20/25 16:32 DC 08/17/25 04:46 3,175 UNIT Heparin Sodium/ Dextrose 250 ml @ 0 mls/hr PROTOCOL IV 08/21/25 11:30 09/20/25 11:29 08/26/25 06:54 8 MLS/HR Heparin Sodium/ Dextrose 250 ml @ 0 mls/hr Q6H IV 08/13/25 16:30 08/20/25 16:32 DC 08/19/25 22:03 11.78 MLS/HR Insulin Glargine (LANtus 100 UNITS/ML 10 ML VIAL) 5 units BID@0730,2100 SQ 08/16/25 21:00 08/17/25 09:31 DC 08/16/25 21:21 5 UNITS Insulin Glargine (LANtus 100 UNITS/ML 10 ML VIAL) 10 units HS SQ 08/13/25 21:00 08/14/25 06:16 DC 08/13/25 20:21 10 UNITS Insulin Glargine (LANtus 100 UNITS/ML 10 ML VIAL) 15 units DAILY SQ 08/23/25 09:00 09/22/25 08:59 08/27/25 08:35 15 UNITS Insulin Glargine (LANtus 100 UNITS/ML 10 ML VIAL) 20 units DAILY SQ 08/14/25 09:00 08/15/25 07:24 DC 08/14/25 08:01 20 UNITS Insulin Glargine (LANtus 100 UNITS/ML 10 ML VIAL) 30 units DAILY SQ 08/15/25 09:00 08/16/25 07:19 DC 08/15/25 08:28 30 UNITS Insulin Glargine (LANtus 100 UNITS/ML 10 ML VIAL) 35 units DAILY SQ 08/16/25 09:00 08/19/25 07:35 DC 08/18/25 07:59 35 UNITS Insulin Glargine (LANtus 100 UNITS/ML 10 ML VIAL) 42 units DAILY 08/19/25 09:00 08/20/25 06:22 DC 08/19/25 09:40 42 UNITS Insulin Glargine (LANtus 100 UNITS/ML 10 ML VIAL) 45 units DAILY 08/20/25 09:00 08/20/25 16:32 DC Insulin Human Lispro (HumaLOG LISpro 100 UNIT/ML 3ML) INSULIN SLIDING SCAL... ACHS 08/16/25 21:00 08/17/25 09:31 DC Insulin Human Regular (humuLIN R 100 UNIT/ML 3ML) 3 unit TIDAC SQ 08/27/25 07:30 09/26/25 07:29 08/27/25 06:52 3 UNIT Insulin Human Regular (humuLIN R 100 UNIT/ML 3ML) 5 unit TIDAC SQ 08/14/25 17:00 08/15/25 07:24 DC 08/15/25 07:03 5 UNIT Insulin Human Regular (humuLIN R 100 UNIT/ML 3ML) 8 unit TIDAC SQ 08/15/25 07:30 08/15/25 22:46 DC 08/15/25 16:02 8 UNIT Insulin Human Regular (humuLIN R 100 UNIT/ML 3ML) 10 unit TIDAC SQ 08/16/25 07:30 08/17/25 21:12 DC 08/17/25 16:09 10 UNIT Insulin Human Regular (humuLIN R 100 UNIT/ML 3ML) 12 unit TIDAC SQ 08/18/25 07:30 08/18/25 20:19 DC 08/18/25 16:39 12 UNIT Insulin Human Regular (humuLIN R 100 UNIT/ML 3ML) 16 unit TIDAC SQ 08/19/25 07:30 08/20/25 06:22 DC 08/19/25 16:47 16 UNIT Insulin Human Regular (humuLIN R 100 UNIT/ML 3ML) 17 unit TIDAC SQ 08/20/25 07:30 08/20/25 16:32 DC Insulin Human Regular (humuLIN R 100 UNIT/ML 3ML) INSULIN SLIDING SCAL... ACHS SQ 08/17/25 16:30 08/20/25 16:32 DC 08/19/25 21:31 8 UNIT Insulin Human Regular (humuLIN R 100 UNIT/ML 3ML) INSULIN SLIDING SCAL... ACHS SQ 08/22/25 11:30 08/22/25 21:32 DC 08/22/25 20:58 3 UNIT Insulin Human Regular (humuLIN R 100 UNIT/ML 3ML) INSULIN SLIDING SCAL... ACHS SQ 08/23/25 07:30 09/22/25 07:29 08/27/25 06:51 2 UNIT Insulin Human Regular (humuLIN R 100 UNIT/ML 3ML) INSULIN SLIDING SCAL... ACHS SQ 08/13/25 16:30 08/16/25 20:46 DC 08/16/25 20:01 4 UNIT Insulin Human Regular 100 unit/ Sodium Chloride 100 ml @ 0 mls/hr AD IV 08/20/25 17:00 08/22/25 16:59 DC 08/21/25 15:00 5 MLS/HR Iron Sucrose (VenoFER) 200 mg DAILY IV 08/21/25 13:00 08/23/25 09:43 DC 08/22/25 11:53 200 MG Iron Sucrose (VenoFER) 200 mg DAILY IV 08/23/25 09:00 08/26/25 08:57 DC 08/25/25 09:25 200 MG Lidocaine (Lidocaine Patch 4%) 1 each DAILY TP 08/19/25 09:00 09/18/25 08:59 08/27/25 08:33 1 EACH Lidocaine HCl/ Dextrose 250 ml @ 0 mls/hr PROTOCOL IV 08/21/25 00:00 09/20/25 00:00 Magnesium Sulfate 50 ml @ 12.5 mls/hr AD PRN IV MAG LEVEL LESS THAN 2.0 08/20/25 17:00 09/19/25 16:59 08/26/25 21:11 12.5 MLS/HR Magnesium Sulfate 50 ml @ 0 mls/hr PROTOCOL IV 08/13/25 16:30 08/21/25 10:49 DC 08/21/25 05:58 25 MLS/HR Midodrine (PROAMatine 5 MG TABLET) 5 mg Q6H6 PO 08/26/25 16:00 09/25/25 15:59 08/27/25 05:55 5 MG Morphine Sulfate (morPHINE 2MG SYG) 0.5 mg Q2H PRN IV MODERATE PAIN (4-6) 08/20/25 17:00 08/20/25 18:07 DC Morphine Sulfate (morPHINE 2MG SYG) 2 mg Q6H PRN IVP SEVERE PAIN (7-10) 08/19/25 18:00 08/20/25 16:32 DC 08/19/25 17:50 2 MG Morphine Sulfate (morPHINE 4MG SYG) 0.5 mg Q2H PRN IV MODERATE PAIN (4-6) 08/20/25 18:30 08/21/25 16:59 DC Morphine Sulfate (morPHINE 4MG SYG) 1 mg Q2H PRN IV SEVERE PAIN (7-10) 08/20/25 17:00 08/21/25 16:59 DC Morphine Sulfate (morPHINE 4MG SYG) 2 mg Q6H PRN IVP SEVERE PAIN (7-10) 08/14/25 09:30 08/19/25 12:29 DC 08/19/25 12:22 2 MG Multivitamins Therapeutic (Multivitamin Tablet) 1 tab DAILY PO 08/15/25 09:00 09/14/25 08:59 08/27/25 08:33 1 TAB Nitroglycerin/ Dextrose 0 ml @ 0 mls/hr AD IV 08/20/25 17:00 08/23/25 16:59 DC Nitroglycerin/ Dextrose 250 ml @ 0 mls/hr PROTOCOL IV 08/20/25 03:30 08/20/25 16:32 DC 08/20/25 03:12 1.5 MLS/HR Norepinephrine 250 ml @ 0 mls/hr PROTOCOL IV 08/13/25 15:30 08/20/25 08:31 DC Norepinephrine Bitartrate 250 ml @ 0 mls/hr AD PRN IV TITRATE 08/20/25 08:00 09/19/25 07:59 08/26/25 20:18 3.8 MLS/HR Norepinephrine Bitartrate 250 ml @ 0 mls/hr AD PRN IV TITRATE 08/20/25 09:00 08/20/25 09:03 DC Norepinephrine Bitartrate 8 mg/ Dextrose 250 ml @ 0 mls/hr AD PRN IV POST-OP CARDIOVASCULAR ORDERS 08/20/25 17:00 08/21/25 10:49 DC Ondansetron HCl (zoFRAN 4MG INJ) 4 mg Q4H PRN IV NAUSEA 08/14/25 14:30 08/20/25 16:32 DC 08/14/25 14:17 4 MG Ondansetron HCl (zoFRAN 4MG INJ) 4 mg Q6H PRN IV NAUSEA/VOMITING 08/20/25 17:00 09/19/25 16:59 Ondansetron HCl (zoFRAN 4MG INJ) 4 mg Q6H PRN IVP NAUSEA/VOMITING 08/13/25 16:30 08/14/25 14:08 DC Pantoprazole Sodium (PROTonix 40MG INJ) 40 mg Q12H IVP 08/17/25 16:30 08/20/25 16:32 DC 08/20/25 03:53 40 MG Pantoprazole Sodium (PROTonix 40MG INJ) 40 mg Q24H IVP 08/13/25 16:30 08/17/25 11:10 DC 08/16/25 16:07 40 MG Pharmacy Profile Note (Pharmacy Communication) 1 each PROTOCOL PRN MISC ETOH Withdrawal Score changes 08/14/25 14:30 08/14/25 14:08 DC Phenylephrine HCl 100 mg/Sodium Chloride 250 ml @ 0 mls/hr PROTOCOL IV 08/26/25 20:30 09/25/25 20:29 Polyethylene Glycol (MIRalax 3350 17 GM POWD.PACK) 17 gm DAILY PO 08/15/25 09:00 09/14/25 08:59 08/27/25 08:32 17 GM Potassium Phosphate 250 ml @ 42 mls/hr AD PRN IV LOW PHOS LEVEL 08/20/25 17:00 09/19/25 16:59 Potassium Chloride 100 ml @ 100 mls/hr AD PRN IV HYPOKALEMIA 08/20/25 17:00 09/19/25 16:59 08/27/25 08:34 100 MLS/HR Potassium Chloride 100 ml @ 100 mls/hr AD PRN IV POTASSIUM PROTOCOL 08/13/25 16:30 08/20/25 16:32 DC 08/16/25 16:07 100 MLS/HR Potassium Chloride (K-Dur/Klor-Con 20meq) 20 meq AD PRN PO POTASSIUM PROTOCOL 08/13/25 16:30 08/20/25 16:32 DC 08/15/25 08:23 20 MEQ Potassium Chloride (KCl 10% Elixir 20meq/15ml) 20 meq AD PRN PO POTASSIUM PROTOCOL 08/13/25 16:30 08/20/25 16:32 DC Promethazine HCl (Phenergan) 25 mg Q6H PRN PO NAUSEA 08/14/25 14:30 08/20/25 16:32 DC Propofol 100 ml @ 0 mls/hr AD PRN IV SEDATION 08/20/25 17:00 08/24/25 17:00 DC Sodium Bicarbonate 25 meq/Dextrose 1,000 ml @ 0 mls/hr Q0M IV 08/14/25 00:30 09/13/25 00:29 08/20/25 23:15 50 MLS/HR Sodium Bicarbonate 25 meq/Dextrose 1,000 ml @ 0 mls/hr Q0M IVP 08/14/25 00:30 08/14/25 00:15 DC Sodium Bicarbonate (Sodium Bicarb 50meq 50ml Vial) 50 meq AD PRN IV OTHER[SEE DOSING INSTRUCTIONS] 08/20/25 17:00 08/23/25 16:59 DC 08/21/25 01:19 50 MEQ Sodium Chloride 500 ml @ 500 mls/hr Q1H IV 08/20/25 00:33 08/20/25 03:16 DC 08/20/25 00:53 500 MLS/HR Sodium Chloride 500 ml @ 0 mls/hr AD IV 08/20/25 17:00 09/19/25 16:59 Sodium Chloride 1,000 ml @ 10 mls/hr ONCE IV 08/20/25 17:00 08/21/25 16:59 DC 08/20/25 22:31 10 MLS/HR Sodium Chloride (NS Flush 10ml) 10 ml Q8H PRN IVP IV LINE FLUSH 08/20/25 17:00 09/19/25 16:59 Thiamine HCl (Vitamin B-1) 300 mg DAILY IV 08/15/25 09:00 08/17/25 09:01 DC 08/17/25 07:46 300 MG Ticagrelor (BRILinta) 90 mg BID PO 08/14/25 09:00 08/14/25 21:19 DC 08/14/25 20:09 90 MG Tramadol HCl (UltRAM) 25 mg Q6H PRN PO MODERATE PAIN (4-6) 08/20/25 17:00 08/25/25 16:59 DC Tramadol HCl (UltRAM) 25 mg Q6H PRN PO MODERATE PAIN (4-6) 08/26/25 11:00 08/31/25 10:59 08/27/25 03:12 25 MG Tramadol HCl (UltRAM) 50 mg Q6H PRN PO SEVERE PAIN (7-10) 08/20/25 17:00 08/25/25 16:59 DC 08/25/25 09:24 50 MG Tramadol HCl (UltRAM) 50 mg Q6H PRN PO SEVERE PAIN (7-10) 08/26/25 11:00 08/31/25 10:59 Vancomycin HCl 250 ml @ 125 mls/hr Q12H IV 08/18/25 09:00 08/19/25 20:54 DC 08/19/25 09:39 125 MLS/HR Vancomycin HCl 250 ml @ 125 mls/hr Q12H IV 08/24/25 23:00 08/26/25 21:47 DC 08/26/25 11:47 125 MLS/HR Vancomycin HCl 250 ml @ 125 mls/hr Q8H IV 08/19/25 21:30 08/21/25 00:23 DC 08/20/25 22:26 125 MLS/HR Vancomycin HCl 250 ml @ 125 mls/hr Q8H IV 08/21/25 06:30 08/21/25 08:35 DC 08/21/25 08:15 125 MLS/HR Vancomycin HCl 250 ml @ 125 mls/hr Q8H IV 08/21/25 08:00 08/21/25 06:28 DC Vancomycin HCl 250 ml @ 125 mls/hr Q8H IV 08/21/25 16:30 08/24/25 16:54 DC 08/24/25 09:32 125 MLS/HR Vancomycin HCl (Vancomycin Protocol) 1 each AD IV 08/17/25 22:00 08/26/25 21:47 DC DIAGNOSTICS / RADIOLOGY: [ ] ASSESSMENT: Cardiogenic shock with lactic acidosis, POA NSTEMI/ACS, POA Complete heart block, POA History of multivessel coronary artery disease, POA History of cocaine use disorder, POA Severe nonketotic hyperglycemia, POA History of to poorly controlled type 2 diabetes mellitus, POA Lactic acidosis, POA History of anemia, POA History of gastritis, POA History of hypertension, POA History of PTSD/anxiety, POA Obesity, POA Medical noncompliance, POA PLAN: patient is seen and examined at bedside, case discussed with the RN, no acute events overnight, patient awake, following commands, still with the Impella support, status post CABG. No chest pain, shortness shortness for breath, no nausea, no vomiting. Continue with chest tube in place. BP 132/74, afebrile, saturating 99% 4 L nasal cannula. CBC with a hemoglobin 9.0, hematocrit 28.1, WBC 12.2, with a platelet count of 152. Sodium 140, potassium 4.0, BUN of 12, creatinine 0.6, initially 2.10. Cardiology input noted and appreciated, echocardiogram ordered, we will follow report. Continue to follow Cardiothoracic input and recommendation. NEURO: MINIMIZE CENTRAL ACTING MEDICATIONS POSSIBLE. FALL PRECAUTIONS. WELL LIGHTED ROOM THROUGH THE DAY AND MINIMIZE INTERRUPTIONS THROUGH THE NIGHT TO PREVENT ACUTE DELIRIUM. PULMONARY: SUPPLEMENTAL 02 NEEDED BIPAP NECESSARY, FOR RESPIRATORY DISTRESS TITRATE FIO2 TO KEEP SPO2 > OR = 90% DUONEBS AND CPT NEEDED IS HOURLY WHILE AWAKE FOR PULMONARY HYGIENE PRN OUT OF BED TO CHAIR TOLERATED MAINTAIN ASPIRATION PRECAUTIONS AT ALL TIMES CARDIOVASCULAR: FOLLOW HEMODYNAMICS. VITAL SIGNS PER FACILITY PROTOCOL GI & NUTRITION: CONTINUE NUTRITIONAL SUPPORT ASPIRATIONS PRECAUTIONS PROKINETIC AGENTS AND LAXATIVES NEEDED KIDNEYS & ELECTROLYTES: STRICT MONITORING OF INTAKE AND OUTPUT DAILY WEIGHTS AVOID NEPHROTOXIC AGENTS MONITOR ELECTROLYTES AND REPLACE NEEDED GOAL URINE OUTPUT OF 30ML/HR OR 0.5ML/KG/HR MEDICATIONS TO BE DOSED ACCORDING TO RENAL FUNCTION. AVOID CONTRAST IF POSSIBLE ENDOCRINE: MAINTAIN BLOOD GLUCOSE BETWEEN 100-180 AT ALL TIMES. INSULIN SLIDING SCALE FOR BLOOD GLUCOSE MANAGEMENT HYPOGLYCEMIA AND HYPERGLYCEMIA PROTOCOL IN PLACE INFECTIOUS DISEASE: TREND TEMPERATURE, WBC AND PROCALCITONIN LEVEL FOLLOW CULTURES, DEESCALATE ANTIBIOTICS SOON POSSIBLE. PANCULTURE IF NEW ONSET FEVER HEMATOLOGY & COAGULATION: MONITOR H&H. KEEP HGB > 7 TRANSFUSE 1 UNIT OF PRBC FOR HGB < 7 TRANSFUSE 1 PACK OF PLATELETS OF PLATELETS < 20, 000 WATCH FOR ANY SIGNS AND SYMPTOMS OF BLEEDING SKIN: PRESSURE ULCER PREVENTION PER FACILITY PROTOCOL SPECIALTY MATTRESS NEEDED ORTHO/REHAB CONTINUE PT/OT PRN: MEDICATIONS TYLENOL 650 MG PO EVERY 4 HRS FOR FEVER ZOFRAN 4 MG IV EVERY 6 HRS FOR N/V HYDRALAZINE 5 MG IV EVERY 4 HRS SYSTOLIC PRESSURE > 160 BOWEL REGIMENT: LACTULOSE 20 GM PO BID PRN CONSTIPATION SUPPORTIVE MEASURES: CONTINUE GI AND DVT PROPHYLAXIS DISPOSITION: PENDING IMPROVEMENT IN CLINICAL CONDITION ALL QUESTIONS ANSWERED TIME SPENT: > 35 MIN GEE MARTIN MD Aug 27, 2025 12:31
--- NOTE | 2025-08-27 12:56 | CONS ---
HPI: This is a 60-year-old female with a history of coronary artery disease, hypertension, type 2 diabetes mellitus, history of CVA in 2008 and history of polysubstance abuse with tobacco, cocaine and benzodiazepines. She was admitted 08/13/2025 secondary to a non-STEMI with cardiogenic shock and complete heart block. Initial EKG 08/13/2025 showed complete heart block with a junctional escape rhythm at 41 bpm. The junctional rhythm had a left bundle branch morphology. She underwent left heart catheterization 08/13/2025 which showed multivessel coronary artery disease with attempted PCI to the distal RCA with 10 0% occlusion (unable to cross) with placement of Impella and transvenous pacemaker via right common femoral vein. The complete heart block resolved in 08/14/2025. With exception of intermittent Mobitz type I second-degree AV block, she maintained sinus rhythm with a first-degree AV block and right bundle branch block. On 08/21/2025 she developed polymorphic ventricular tachycardia and was started on amiodarone infusion followed by p.o. amiodarone 20 mg twice daily. Yesterday she developed recurrent complete heart block with a junctional escape rhythm in the 40s to 50s. She is currently in sinus rhythm with ventricular rates in the 70s. She is status post off-pump CABG x 3 with left atrial appendage ligation 08/20/2025. Her initial echocardiogram 08/14/2025 showed an ejection fraction of 50 to 55% with basal inferior wall aneurysm and akinesis with mild LVH. Intraoperative ZAKIA showed normal LVEF. Impella remains in place at the P4 setting. Cumulative I&O balance -3283.8 mL. Her most recent blood pressure is 132/74.White blood count 12.2, hemoglobin 9.0, hematocrit 28.1, platelets 152, creatinine 0.6, potassium 4.0, magnesium 2.10, albumin 1.8. She is currently on pressor support with Levophed. She offers of no new cardiac complaints today. Patient History: PAST MEDICAL HISTORY: As noted above. SOCIAL HISTORY: History of polysubstance abuse. SURGICAL HISTORY: As noted above. Allergies: Coded Allergies: No Known Drug Allergies (Verified Allergy, Unknown, 05/04/22) lisinopril (Verified Allergy, Unknown, 05/04/22) Vital Signs Vital Signs 08/27/25 08/27/25 08/27/25 06:00 08:00 11:36 Temp 98.4 Pulse 72 Resp 26 B/P (MAP) 132/74 (93) 103/62 (76) Pulse Ox 99 O2 Delivery N/Cannula Low lpm O2 Flow Rate 4.0 FiO2 36 Appearance: Well dev, well nourished Eyes: EOM Normal, Normal Conjuctivae/eyelid Ear/Nose/Mouth/Throat: Landmarks WNL Neck: Symmetric, trach midline Cardiovascular: Regular Rate, Regular Rhythm Laboratory Tests Test 08/25/25 15:14 08/25/25 16:47 08/25/25 20:42 08/25/25 22:18 Range/Units Sodium Level 139 136-145 mmol/L Potassium Level 3.7 3.5-5.1 mmol/L Chloride Level 105 101-111 mmol/L Carbon Dioxide Level 30 21-32 mmol/L Blood Urea Nitrogen 16 7-18 mg/dL Creatinine 0.8 0.5-1.0 mg/dL Glomerular Filtration Rate Calc 85 >90 mL/min Random Glucose 182 70-105 mg/dL Total Calcium 7.7 8.5-10.1 mg/dL Whole Blood Glucose 189 191 70-110 MG/DL Vancomycin Level Trough 13.6 10.0-20.0 UG/ML Test 08/26/25 04:38 08/26/25 06:07 08/26/25 11:11 08/26/25 11:34 Range/Units White Blood Count 8.7 4.8-10.8 K/uL Red Blood Count 2.90 4.00-5.50 MIL/uL Hemoglobin 8.8 12.0-16.0 g/dL Hematocrit 27.7 36-48 % Mean Corpuscular Volume 95.5 79-99 fL Mean Corpuscular Hemoglobin 30.3 27.0-33.0 pg Mean Corpuscular Hemoglobin Concent 31.8 32.0-36.0 g/dL Red Cell Distribution Width 19.3 11.0-15.5 % Platelet Count 112 130-400 K/uL Mean Platelet Volume 12.0 7.5-10.5 fL Nucleated Red Blood Cells 0.2 0.0-0.19 % Prothrombin Time 11.6 9.6-11.6 SEC Prothromb Time International Ratio 1.11 0.85-1.15 Activated Partial Thromboplast Time 52.7 26.3-35.5 SEC Fibrinogen 565 180-350 mg/dL Sodium Level 140 136-145 mmol/L Potassium Level 4.1 3.5-5.1 mmol/L Chloride Level 106 101-111 mmol/L Carbon Dioxide Level 30 21-32 mmol/L Blood Urea Nitrogen 16 7-18 mg/dL Creatinine 0.7 0.5-1.0 mg/dL Glomerular Filtration Rate Calc 100 >90 mL/min Random Glucose 173 70-105 mg/dL Total Calcium 7.9 8.5-10.1 mg/dL Ionized Calcium 1.12 1.15-1.33 MMOL/L Total Bilirubin 0.4 0.2-1.0 mg/dL Aspartate Amino Transf (AST/SGOT) 42 10-37 U/L Alanine Aminotransferase (ALT/SGPT) 28 12-78 U/L Alkaline Phosphatase 238 50-136 U/L Total Protein 5.5 6.0-8.3 g/dL Albumin 1.8 3.5-5.0 g/dL Whole Blood Glucose 166 228 70-110 MG/DL Blood Gas Specimen Type Arterial Arterial Blood pH 7.474 7.350-7.450 Arterial Blood Partial Pressure CO2 35 32-45 mmHg Arterial Blood Partial Pressure O2 74.6 83.0-108.0 mmHg Arterial Blood HCO3 25.0 21.0-28.0 mmol/L Arterial Blood Oxygen Saturation 94.8 94.0-98.0 % Arterial Blood Base Excess 1.5 -2.0-3.0 mmol/L Hemoglobin (Blood Gas) 9.6 12.0-16.0 g/dL Sodium (Blood Gas) 134 136-145 MMOL/L Bedside Potassium (Blood Gas) 3.9 3.4-4.5 MMOL/L Bedside Chloride (Blood Gas) 104 98-107 MMOL/L Bedside Glucose (Blood Gas) 256 65-95 MG/DL Bedside Ionized Calcium (Blood Gas) 1.13 1.15-1.33 MMOL/L Bedside Lactic Acid (Blood Gas) 1.17 0.36-0.75 MMOL/L Blood Gas Temperature 37.0 35.5-37.0 CELSIUS Blood Gas Flow-by 3.00 0.00-15.00 L/min Blood Gas Vent Mode NC ROOM AIR FiO2 32.0 % Blood Gas Specimen Comment LR Test 08/26/25 15:42 08/26/25 17:25 08/26/25 20:35 08/27/25 04:01 Range/Units Sodium Level 141 140 136-145 mmol/L Potassium Level 4.0 4.0 3.5-5.1 mmol/L Chloride Level 108 106 101-111 mmol/L Carbon Dioxide Level 31 29 21-32 mmol/L Blood Urea Nitrogen 15 12 7-18 mg/dL Creatinine 0.7 0.6 0.5-1.0 mg/dL Glomerular Filtration Rate Calc 100 104 >90 mL/min Random Glucose 159 186 70-105 mg/dL Total Calcium 7.6 7.9 8.5-10.1 mg/dL Magnesium Level 1.60 2.10 1.80-2.40 mg/dL Blood Gas Specimen Type Arterial Arterial Blood pH 7.506 7.350-7.450 Arterial Blood Partial Pressure CO2 35 32-45 mmHg Arterial Blood Partial Pressure O2 55.9 83.0-108.0 mmHg Arterial Blood HCO3 26.7 21.0-28.0 mmol/L Arterial Blood Oxygen Saturation 90.2 94.0-98.0 % Arterial Blood Base Excess 3.7 -2.0-3.0 mmol/L Hemoglobin (Blood Gas) 9.9 12.0-16.0 g/dL Sodium (Blood Gas) 136 136-145 MMOL/L Bedside Potassium (Blood Gas) 3.9 3.4-4.5 MMOL/L Bedside Chloride (Blood Gas) 105 98-107 MMOL/L Bedside Glucose (Blood Gas) 195 65-95 MG/DL Bedside Ionized Calcium (Blood Gas) 1.10 1.15-1.33 MMOL/L Bedside Lactic Acid (Blood Gas) 1.30 0.36-0.75 MMOL/L Blood Gas Temperature 37.0 35.5-37.0 CELSIUS Blood Gas Flow-by 4.00 0.00-15.00 L/min Blood Gas Vent Mode NC ROOM AIR FiO2 36.0 % Blood Gas Specimen Comment LR Whole Blood Glucose 165 70-110 MG/DL White Blood Count 12.2 4.8-10.8 K/uL Red Blood Count 2.96 4.00-5.50 MIL/uL Hemoglobin 9.0 12.0-16.0 g/dL Hematocrit 28.1 36-48 % Mean Corpuscular Volume 94.9 79-99 fL Mean Corpuscular Hemoglobin 30.4 27.0-33.0 pg Mean Corpuscular Hemoglobin Concent 32.0 32.0-36.0 g/dL Red Cell Distribution Width 19.9 11.0-15.5 % Platelet Count 152 130-400 K/uL Mean Platelet Volume 11.2 7.5-10.5 fL Immature Granulocyte % (Auto) 5.2 0-1 % Neutrophils (%) (Auto) 60.8 40.0-77.0 % Lymphocytes (%) (Auto) 21.6 21.0-51.0 % Monocytes (%) (Auto) 9.6 3.0-13.0 % Eosinophils (%) (Auto) 2.3 0.0-8.0 % Basophils (%) (Auto) 0.5 0.0-5.0 % Neutrophils # (Auto) 7.4 1.8-7.7 K/uL Lymphocytes # (Auto) 2.6 1.0-4.8 K/uL Monocytes # (Auto) 1.2 0.1-1.0 K/uL Eosinophils # (Auto) 0.28 0.00-0.70 K/uL Basophils # (Auto) 0.06 0.00-0.20 K/uL Absolute Immature Granulocyte (auto 0.64 0-1 K/uL Nucleated Red Blood Cells 0.2 0.0-0.19 % Prothrombin Time 11.4 9.6-11.6 SEC Prothromb Time International Ratio 1.08 0.85-1.15 Activated Partial Thromboplast Time 44.8 26.3-35.5 SEC Fibrinogen 612 180-350 mg/dL Ionized Calcium 1.12 1.15-1.33 MMOL/L Total Bilirubin 0.5 0.2-1.0 mg/dL Aspartate Amino Transf (AST/SGOT) 50 10-37 U/L Alanine Aminotransferase (ALT/SGPT) 29 12-78 U/L Alkaline Phosphatase 265 50-136 U/L Total Protein 6.1 6.0-8.3 g/dL Albumin 1.8 3.5-5.0 g/dL Test 08/27/25 04:04 08/27/25 05:58 08/27/25 11:11 08/27/25 11:50 Range/Units Blood Gas Specimen Type Arterial Arterial Blood pH 7.457 7.350-7.450 Arterial Blood Partial Pressure CO2 36 32-45 mmHg Arterial Blood Partial Pressure O2 134.5 83.0-108.0 mmHg Arterial Blood HCO3 25.1 21.0-28.0 mmol/L Arterial Blood Oxygen Saturation 98.4 94.0-98.0 % Arterial Blood Base Excess 1.3 -2.0-3.0 mmol/L Hemoglobin (Blood Gas) 10.8 12.0-16.0 g/dL Sodium (Blood Gas) 136 136-145 MMOL/L Bedside Potassium (Blood Gas) 3.9 3.4-4.5 MMOL/L Bedside Chloride (Blood Gas) 105 98-107 MMOL/L Bedside Glucose (Blood Gas) 194 65-95 MG/DL Bedside Ionized Calcium (Blood Gas) 1.15 1.15-1.33 MMOL/L Bedside Lactic Acid (Blood Gas) 0.88 0.36-0.75 MMOL/L Blood Gas Temperature 37.0 35.5-37.0 CELSIUS Blood Gas Flow-by 15.00 0.00-15.00 L/min Blood Gas Vent Mode VM ROOM AIR FiO2 50.0 % Blood Gas Specimen Comment NAVIN RN ,LR Whole Blood Glucose 176 126 70-110 MG/DL Activated Partial Thromboplast Time 51.0 26.3-35.5 SEC Test 08/27/25 11:52 Range/Units Whole Blood Glucose 256 70-110 MG/DL ASSESSMENT: 1. Non-STEMI. 2. Multivessel coronary artery disease status post CABG x 6 with RUPALI ligation 08/20/2025. 3. Cardiogenic shock stage D. 4. Complete heart block. 5. Right bundle branch block. 6. First degree AV block. 7. Nonsustained polymorphic ventricular tachycardia. 8. 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 PLAN: Discussed with Dr. Lawson 1. She presented with a non-STEMI and cardiogenic shock with complete heart block with a junctional escape rhythm in the 40s (left bundle branch morphology) which resolved on 08/14/2025. Yesterday she developed recurrent complete heart block with a stable junctional escape rhythm in the 40s to 50s which is also resolved. She is currently in sinus rhythm with a chronic right bundle branch block with heart rates in the 70s. She will likely require permanent pacing. 2. She currently has Impella in place and is not hemodynamically stable to undergo pacemaker insertion at this time. 3. We will continue to monitor her rhythm and will follow along. BRANDON MEDINA PAC Aug 27, 2025 12:55
--- NOTE | 2025-08-27 14:00 | NUR ---
IMPELLA IN PLACE Addendum: 08/27/25 at 1617 by WAQAS COATES PT Amended: Links added.
--- NOTE | 2025-08-27 16:10 | HMCSR ---
APPROVED REPORT EXAM: Limited two-dimensional echocardiogram with color Doppler. INDICATION ICD: Assess impella placement 2D Dimensions IVSd0.8 (0.7-1.1cm)LVEF(%)49.7 (>50%)LVED Vol(simp.)120.0 mL LVDd4.9 (3.8-5.6cm)FS(%)25 %LVES Vol(simp.)49.0 mL PWd0.7 (0.7-1.1cm)LA (2D)4.9 (1.6-4.0cm)LVEF(%, simp.)59 % IVSs1.0 cmAo Root(2D)3.5 (2.0-3.7cm) LVDs3.6 (2.5-4.0cm) PWs1.2 cm Deformation Strain Apical 4-17.6 % Apical 2-16.7 % Apical 3-13.3 % Global Strain-15.9 % Left Ventricle Left ventricular cavity size is normal. Impella device measuring 5.6cm into LV. GLS -16.0% LVEF is 55 -60%. Great Vessels The IVC is normal in size and collapses >50% with inspiration. Pericardium No pericardial effusion. Other Information Quality : Limited/Follow-up Conclusion Left ventricular cavity size is normal. Impella device measuring 5.6cm into LV. LVEF is 55-60%. No pericardial effusion.
--- NOTE | 2025-08-27 16:15 | HMCIMG ---
CHEST 1VW REASON: s/p CABG COMPARISON: Prior chest radiograph from 08/26/2025 is available. FINDINGS: Single view of the chest was obtained. There is cardiomegaly with median sternotomy with cardiac investigation procedure with left apical clipping. Right internal jugular Sagamore-Guillaume catheter with tip in the superior vena cava. The ventricular system With the tip in the left ventricle in satisfactory position and unchanged.. The lungs demonstrate diffuse interstitial pulmonary edema with small pleural effusion. Mediastinum and bony thorax appear unremarkable. IMPRESSION: 1. Cardiomegaly with median sternotomy with left apical capping with cardiac and aspiration procedure 2. Support lines in satisfactory position 3. Small interstitial pulmonary edema with small bilateral pleural effusion 4. Unchanged from prior study
[2025-08-27 16:31] LABS: CREATININE 0.8 mg/dL (0.5-1.0); GLOMERULAR FILTR. RATE CALC 85.0 mL/min (>90); GLUCOSE,RANDOM 246.0 mg/dL (70-105); SODIUM SERUM 141.0 mmol/L (136-145); UREA NITROGEN, BLOOD 14.0 mg/dL (7-18)
--- NOTE | 2025-08-27 16:46 | PN ---
[facility] CARDIOLOGY PROGRESS NOTE Date Patient Seen: Aug 27, 2025 Time of Visit: 07:44 Problem List: NSTEMI s/p 3V CABG (BRO-LAD, VG-D2, VG-OM) ICMP CARDIOGENIC SHOCK COCAINE USE Interval History: Seen in ICU Impella to R NEPHROLOGY NURSE, at P3 Vasopressors started overnight Patient reports more dyspnea UOP improved after started vasopressors with 2500cc overnight. Episode of complete heart block into the 40s, not requiring TVPM. Physical Examination: GENERAL: [well appearing, calm, no distress HEAD: [Normal with no signs of head trauma.] LUNGS: [Clear breath sounds bilaterally. No wheezes, or rhonchi.] HEART: [NSR. Normal S1 and S2 without murmurs, gallop or rub.] VASC: [Peripheral pulses +2 bilateral radial. R NEPHROLOGY NURSE impella in place. distal extremities are warm] ABD: [soft, nontender.] EXT: [No cyanosis or edema. Right NEPHROLOGY NURSE Impella CP and TVPM insertion site no ecchymoses or bleeding. SKIN: [No rashes or lesions noted. warm, dry NEURO: AOx3 moves all extremities. Laboratory: [ ] Hematology Labs: Test 08/27/25 04:01 Range/Units White Blood Count 12.2 #H 4.8-10.8 K/uL Red Blood Count 2.96 L 4.00-5.50 MIL/uL Hemoglobin 9.0 L 12.0-16.0 g/dL Hematocrit 28.1 L 36-48 % Mean Corpuscular Volume 94.9 79-99 fL Mean Corpuscular Hemoglobin 30.4 27.0-33.0 pg Mean Corpuscular Hemoglobin Concent 32.0 32.0-36.0 g/dL Red Cell Distribution Width 19.9 H 11.0-15.5 % Platelet Count 152 # 130-400 K/uL Mean Platelet Volume 11.2 H 7.5-10.5 fL Immature Granulocyte % (Auto) 5.2 H 0-1 % Neutrophils (%) (Auto) 60.8 40.0-77.0 % Lymphocytes (%) (Auto) 21.6 21.0-51.0 % Monocytes (%) (Auto) 9.6 3.0-13.0 % Eosinophils (%) (Auto) 2.3 0.0-8.0 % Basophils (%) (Auto) 0.5 0.0-5.0 % Neutrophils # (Auto) 7.4 1.8-7.7 K/uL Lymphocytes # (Auto) 2.6 1.0-4.8 K/uL Monocytes # (Auto) 1.2 H 0.1-1.0 K/uL Eosinophils # (Auto) 0.28 0.00-0.70 K/uL Basophils # (Auto) 0.06 0.00-0.20 K/uL Absolute Immature Granulocyte (auto 0.64 0-1 K/uL Nucleated Red Blood Cells 0.2 H 0.0-0.19 % Chemistry Labs: Test 08/27/25 16:11 08/27/25 16:07 08/27/25 04:01 Range/Units Whole Blood Glucose 229 H 70-110 MG/DL Sodium Level 141 136-145 mmol/L Potassium Level 4.0 3.5-5.1 mmol/L Chloride Level 104 101-111 mmol/L Carbon Dioxide Level 30 21-32 mmol/L Blood Urea Nitrogen 14 7-18 mg/dL Creatinine 0.8 0.5-1.0 mg/dL Glomerular Filtration Rate Calc 85 >90 mL/min Random Glucose 246 H 70-105 mg/dL Total Calcium 8.0 L 8.5-10.1 mg/dL Ionized Calcium 1.12 L 1.15-1.33 MMOL/L Magnesium Level 2.10 1.80-2.40 mg/dL Total Bilirubin 0.5 # 0.2-1.0 mg/dL Aspartate Amino Transf (AST/SGOT) 50 H 10-37 U/L Alanine Aminotransferase (ALT/SGPT) 29 12-78 U/L Alkaline Phosphatase 265 H 50-136 U/L Total Protein 6.1 6.0-8.3 g/dL Albumin 1.8 L 3.5-5.0 g/dL Coagulation Labs: Test 08/27/25 16:07 08/27/25 04:01 Range/Units Activated Partial Thromboplast Time 53.8 H 26.3-35.5 SEC Prothrombin Time 11.4 9.6-11.6 SEC Prothromb Time International Ratio 1.08 0.85-1.15 Fibrinogen 612 *H 180-350 mg/dL Impression and Plan: 1. Non ST-elevation AK complicated by cardiogenic shock and complete heart block status post Impella placement in the R NEPHROLOGY NURSE and TVPM to R CFV 2. CAD with total occlusion of the right coronary artery unable to cross with a wire , of note the patient had a 30-40% RCA stenosis in April of this year raising possibility of spasm and or plaque rupture. LV ejection fraction of 50% with hypokinesis of the infero base by echo this admission. Previously known severe disease of pLAD and pLCx. s/p 3V CABG (BRO-LAD, VG-D2, VG-OM with RUPALI-ligation 40 mm Atricure clip 08/20) 3. VT post operatively, on amiodarone and lidocaine infusions 4. Cocaine abuse , tox screen positive for cocaine and benzodiazepines 5. Diabetes mellitus type 2 uncontrolled 6. Tobacco dependence 7. Remote CVA 2008 8. Noncompliance history, the patient has been seen in the hospital but has not followed up in the office. 9. Dyslipidemia 10. Urinary tract infection, E Coli (Ucx 08/14/25 11. Bacteremia one of two sets possibly contamination (Staph Cohnii) BCx 08/18/25, 2 of 2 ngtd 12. Thrombocytopenia ECHO Conclusion The cardiac chambers are normal in size. There is an Impella catheter seen in the left ventricle. The inlet of the catheter is 3.2 cm from the aortic valve. Mild concentric left ventricular hypertrophy. 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 The mid/apical inferior wall is normal in function. The other willams are normal in function. Left ventricle systolic function is low normal, estimated LVEF 50 to 55%. Indeterminate diastolic function. Trace aortic regurgitation. Trace mitral regurgitation. Trace tricuspid regurgitation. PASP is normal. There is no pericardial effusion. DICTATED BY: CHIRAG SCOTT MD DATE: 08/14/25 0938 ASA, statin. IV diuretics. Now requiring vasopressor support, CXR Showing vascular congestion. Increase Impella support to P4. Limited echo to review depth into LV. EP consultation due to recurrent episode of complete heart block. CHADNRIKA ELAINE DO Aug 27, 2025 16:46
[2025-08-28] VITALS (90 sets, daily range): BP systolic 40–159; BP diastolic 19–152; PULSE 67–77; RESP 10–31; TEMP 98–98.6; O2SAT 96–100
[2025-08-28 03:56] LABS: IMMATURE GRANULOCYTE ABSOLUTE 0.37 K/uL (0-1); NUCLEATED RED BLOOD CELLS 0.0 % (0.0-0.19); PLATELET COUNT (AUTO) 134 K/uL (130-400); RED BLOOD CELL COUNT(AUTO) 3.14 MIL/uL (4.00-5.50); RED CELL DISTRIBUTION WIDTH 19.9 % (11.0-15.5); WHITE BLOOD COUNT (AUTO) 9.6 K/uL (4.8-10.8)
--- NOTE | 2025-08-28 08:44 | PN ---
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 She continues on Impella MCS of P4 and low dose levophed weaning at 0.04mcg/kg/min. Pt is awake alert and oriented x 3. Reports no complains at this time. Only reports tires of having to lay flat due to impella. Attentive plans for removal of impella today as per RN. pending CV further recommendations. Plan: Follow CT surgeon recs Continues on Lasix, Follow I&Os Daily chest x-ray Antibiotics and following cultures, on vanc and ceftriaxone. Impella support, plans for removal tomorrow per CV Continues with heparin drip Monitor for bleeding Vasoactive infusion: Epi low dose ABX: Completed 10 days of Rocephin and 9 days of Vancomycin. Ancef completed x 3. Lines/tubes: [place], Impella, chest tube, [place], FC O2 on 3L Total critical care time spent 35 minutes, this excludes any procedures performed or any time spent in educational or teaching. REVIEW OF SYSTEMS: 12 point ROS reviewed with patient. Pertinent positives mentioned above. Otherwise negative. PHYSICAL EXAM: GENERAL: alert, weak, awake oriented x 3 HEENT: EOMI, Sclera non icteric, moist mucosa NECK: Supple, no JVD, trachea midline LUNGS: Clear breath sounds bilaterally. No wheezes HEART: Normal S1 and S2, without murmurs ABD: Abdomen soft, nontender. Bowel sounds present EXT: No clubbing cyanosis or edema. Impella to rt groin. NEURO: Alert and oriented to person, follows commands Vital Signs (last 8hr) Date Time Temp Pulse Resp B/P (MAP) Pulse Ox O2 Delivery O2 Flow Rate FiO2 08/28/25 06:43 68 26 N/Cannula Low lpm 4.0 36 08/28/25 06:15 69 14 130/74 (92) 100 59/46 (50) 08/28/25 06:00 77 18 138/71 (93) 99 132/123 (126) 08/28/25 06:00 77 18 138/71 (93) 99 132/123 (126) 08/28/25 05:45 71 15 132/72 (92) 99 40/21 (27) 08/28/25 05:30 70 20 133/74 (93) 99 49/29 (36) 08/28/25 05:15 71 27 135/78 (97) 98 41/25 (30) 08/28/25 05:00 68 20 126/70 (88) 99 45/30 (35) 08/28/25 05:00 68 20 126/70 (88) 99 45/30 (35) 08/28/25 04:45 72 17 127/72 (90) 98 45/29 (34) 08/28/25 04:30 69 10 112/69 (83) 99 46/31 (36) 08/28/25 04:15 69 11 113/70 (84) 99 47/30 (36) 08/28/25 04:00 69 11 125/75 (92) 99 44/28 (33) 08/28/25 04:00 99 Nasal Cannula* 4 36 08/28/25 04:00 69 11 125/75 (92) 99 44/28 (33) 08/28/25 04:00 98.1 08/28/25 03:45 68 16 134/73 (93) 98 63/51 (55) 08/28/25 03:30 70 13 132/78 (96) 100 08/28/25 03:15 72 16 129/76 (93) 99 08/28/25 03:00 67 16 130/74 (92) 99 08/28/25 02:45 68 11 118/72 (87) 99 08/28/25 02:30 68 10 131/70 (90) 98 08/28/25 02:15 68 12 126/70 (88) 98 52/32 (39) 08/28/25 02:00 69 11 131/70 (90) 98 51/32 (38) 08/28/25 02:00 69 11 131/70 (90) 98 51/32 (38) 08/28/25 01:45 69 11 128/72 (90) 98 56/35 (42) 08/28/25 01:30 70 11 128/70 (89) 99 54/33 (40) 08/28/25 01:15 71 11 129/72 (91) 99 62/41 (48) 08/28/25 01:00 70 14 119/75 (90) 100 57/38 (44) 08/28/25 01:00 70 14 119/75 (90) 100 57/38 (44) 08/28/25 00:45 71 14 133/73 (93) 99 51/33 (39) LABS: Hematology Labs: Test 08/28/25 03:42 Range/Units White Blood Count 9.6 4.8-10.8 K/uL Red Blood Count 3.14 L 4.00-5.50 MIL/uL Hemoglobin 9.7 L 12.0-16.0 g/dL Hematocrit 30.1 L 36-48 % Mean Corpuscular Volume 95.9 79-99 fL Mean Corpuscular Hemoglobin 30.9 27.0-33.0 pg Mean Corpuscular Hemoglobin Concent 32.2 32.0-36.0 g/dL Red Cell Distribution Width 19.9 H 11.0-15.5 % Platelet Count 134 130-400 K/uL Mean Platelet Volume 10.6 H 7.5-10.5 fL Immature Granulocyte % (Auto) 3.8 H 0-1 % Neutrophils (%) (Auto) 58.2 40.0-77.0 % Lymphocytes (%) (Auto) 23.3 21.0-51.0 % Monocytes (%) (Auto) 10.0 3.0-13.0 % Eosinophils (%) (Auto) 4.4 0.0-8.0 % Basophils (%) (Auto) 0.3 0.0-5.0 % Neutrophils # (Auto) 5.6 1.8-7.7 K/uL Lymphocytes # (Auto) 2.2 1.0-4.8 K/uL Monocytes # (Auto) 1.0 0.1-1.0 K/uL Eosinophils # (Auto) 0.42 0.00-0.70 K/uL Basophils # (Auto) 0.03 0.00-0.20 K/uL Absolute Immature Granulocyte (auto 0.37 0-1 K/uL Nucleated Red Blood Cells 0.0 0.0-0.19 % Chemistry Labs: Test 08/27/25 20:39 08/27/25 16:07 08/27/25 04:01 Range/Units Whole Blood Glucose 156 H 70-110 MG/DL Sodium Level 141 136-145 mmol/L Potassium Level 4.0 3.5-5.1 mmol/L Chloride Level 104 101-111 mmol/L Carbon Dioxide Level 30 21-32 mmol/L Blood Urea Nitrogen 14 7-18 mg/dL Creatinine 0.8 0.5-1.0 mg/dL Glomerular Filtration Rate Calc 85 >90 mL/min Random Glucose 246 H 70-105 mg/dL Total Calcium 8.0 L 8.5-10.1 mg/dL Ionized Calcium 1.12 L 1.15-1.33 MMOL/L Magnesium Level 2.10 1.80-2.40 mg/dL Total Bilirubin 0.5 # 0.2-1.0 mg/dL Aspartate Amino Transf (AST/SGOT) 50 H 10-37 U/L Alanine Aminotransferase (ALT/SGPT) 29 12-78 U/L Alkaline Phosphatase 265 H 50-136 U/L Total Protein 6.1 6.0-8.3 g/dL Albumin 1.8 L 3.5-5.0 g/dL Coagulation Labs: Test 08/27/25 16:07 08/27/25 04:01 Range/Units Activated Partial Thromboplast Time 53.8 H 26.3-35.5 SEC Prothrombin Time 11.4 9.6-11.6 SEC Prothromb Time International Ratio 1.08 0.85-1.15 Fibrinogen 612 *H 180-350 mg/dL DIAGNOSTICS / RADIOLOGY RESULTS: [ ][facility] [address] [place] [id number] IMAGING REPORT Signed PATIENT: LUL ARTHUR MR#: [id number] : 1965 SEX: F AGE: 60 LOCATION: 2BH ORDER 3 STATUS: ADM IN REPORT#: [id number] SERVICE REASON: devices post cabg ORDERING PHYSICIAN: OLIVER KONG AGACNP PROCEDURE: CXR1VW - CHEST 1VW CHEST 1VW REASON: devices post cabg COMPARISON: Prior study from 08/27/2025 is available. FINDINGS: Single view of the chest was obtained. There is cardiomegaly with median sternotomy with left atrial clipping with cardiac revascularization procedure. There is diffuse interstitial pulmonary edema which appears to be worsening as compared to the prior radiograph. The support lines ever seen on the prior study appears to be unchanged in position.. Mediastinum and bony thorax appear unremarkable. IMPRESSION: 1. Cardiomegaly with median sternotomy with cardiac revascularization procedure. 2. Worsening interstitial pulmonary edema as compared to prior study. DICTATED BY: NARENDAR LILLY MD DATE: 08/28/25 1041 ELECTRONICALLY SIGNED BY: NARENDRA LILLY MD DATE: 08/28/25 1050 PLAN NEURO: Minimize central acting medications as possible. Fall Precautions. Well lighted room through the day and minimize interruptions through the night to prevent acute delirium. PULMONARY: Supplemental 02 as needed Titrate Fio2 to keep Spo2 > or = 90% DuoNebs and CPT as needed IS hourly while awake for pulmonary hygiene CARDIOVASCULAR: Follow hemodynamics. Titrate vasopressor to keep MAP >65 or systolic blood pressure >95mmHg GI & NUTRITION: Continue nutritional support Aspirations precautions Prokinetic agents and laxatives as needed Clear liquid diet as tolerated KIDNEYS & ELECTROLYTES: Strict monitoring of intake and output Daily weights Avoid nephrotoxic agents Monitor electrolytes and replace as needed Goal urine output of 30mL/hr or 0.5mL/kg/hr ENDOCRINE: Maintain blood glucose between 100-180 at all times. Insulin sliding scale for blood glucose management INFECTIOUS DISEASE: Trend temperature. Astudillo-culture if febrile. HEMATOLOGY & COAGULATION: Monitor H&H. Keep Hgb > 7 Transfuse 1 unit of PRBC for Hgb < 7 Transfuse 1 pack of platelets of platelets < 20, 000 Watch for any signs and symptoms of bleeding SKIN: Pressure ulcer prevention per facility protocol Rehab: PT/OT Prophylaxis: GI: PPI DVT: SCDs patient on heparin drip Code Status: Full Resuscitation Disposition: ICU Critical care time This patient required multiple bedside visits to manage the patient, review blood gases, coordinate with respiratory, nurses, review radiology exams, talk to the family members and discuss advanced directives. I personally spent 35 minutes of critical care time in treatment of this patient. This includes patient management, time at bedside, time reviewing tests, labs, appropriate images and studies, documentation, and patient care coordination. This time excludes separately billable procedures. ATTESTATION BY PHYSICIAN The patient has been seen and evaluated, the case has been discussed with the ENVIRONMENTAL SERVICES FLOOR TECH, I agree with the clinical findings and plan of care. Jaylon Sapp MD, [facility] Aug 28, 2025 08:44
[2025-08-28 08:52] LABS: INR 1.13 (0.85-1.15)
[2025-08-28 09:00] LABS: ASPARTATE AMINOTRANSFERASE 44.0 U/L (10-37); CREATININE 0.6 mg/dL (0.5-1.0); GLOMERULAR FILTR. RATE CALC 104.0 mL/min (>90); GLUCOSE,RANDOM 172.0 mg/dL (70-105); SODIUM SERUM 141.0 mmol/L (136-145); TOTAL PROTEIN, SERUM 6.2 g/dL (6.0-8.3); UREA NITROGEN, BLOOD 12.0 mg/dL (7-18)
[2025-08-28] MEDS: LACTULOSE 20 GM/30 ML UDCUP PO ONE (09:14)
--- NOTE | 2025-08-28 09:46 | PN ---
[facility] PROGRESS NOTE Date of Service: Aug 28, 2025 Time of Service: 09:44 SUBJECTIVE: This is a 60-year-old female with underlying history of obesity, coronary artery disease, poorly controlled type 2 diabetes mellitus, history of anemia, history of cocaine use, tobacco use disorder, history of CVA in 2008, who presented to the ER for further evaluation of severe substernal chest pain and shortness of breadth. Patient reports having history of cocaine use with last use of cocaine yesterday. She reports having severe substernal chest pain that started today in it has been associated with dizziness, and generalized malaise. Pain is 10/1 0 in severity. Patient denies any syncope or fall. She has been having lightheadedness with ambulation. She has not been able to follow up with Cardiology as outpatient. She has a previous history of abnormal CT coronary angiography when she was hospitalized in 04/2025 and she was treated medically. With regards to type 2 diabetes mellitus, she reports being on metformin as ou tpatient. On presentation to the hospital, patient was noted to be hypotensive with blood pressure of 80/60 with heart rate of 40 with EKG showing complete heart block. [place] [address], hemoglobin 12.4, platelet count of 164993. BMP showed sodium of 133, potassium 4.8, chloride of 99, BUN of 21, creatinine 1.0, blood glucose of 403, [place] [address]. Chest x-ray showed no acute infiltrates. Patient will be admitted for further management of cardiogenic shock, NSTEMI, complete heart block with history of poorly controlled type 2 diabetes mellitus. Patient will be emergently taken to the [facility] for cardiac catheterization/ PCI and tentative plan for MCS support. Patient will be admitted to intensive care unit and she remains critically ill. 08/14 patient remains critically ill requiring Impella and dopamine support. UDS has demonstrated benzos and cocaine 08/15 patient remains on Impella 08/16 patient appears to be resting comfortably in bed. She remains on Impella and dopamine support. She reports she would like to be bathed and wants her hair combed significant and she is feeling better 08/17 patient is on GI soft diet tolerating well. She remains on Impella support 08/18 patient is resting comfortably in bed. She remains on Impella. Tolerating oral intake. 08/19 hemoglobin dropped to 6.5 from 7.0-7.5 yesterday. I agree with transfusing 1 unit PRBC. Patient remains on Impella. Patient is resting comfortably in bed. 08/20 patient is resting comfortably in bed. She remains on Impella support pending recovery for CABG. 08/21 patient underwent CABG x3 yesterday, no complications reported patient remains on Impella the patient is on norepinephrine, amiodarone, dopamine, insulin drip 08/22 postop day 2. From CABG x3. Patient does awaken to verbal stimulation and states she has some chest pain and slight shortness for breath she feels the pain as incisional from her open heart procedure. He is on p.o. amiodarone and being weaned off norepinephrine. 08/23 postop day 3 from CABG x3. Patient is in bed visiting with her son at the bedside. She states she has no shortness for breath, she does have some incisional chest discomfort, no nausea or vomiting or diarrhea. She is off nor epinephrine drip and remains with the Impella assist. 08/24 patient is seen and examined at bedside, discussed with the RN, no acute events overnight, remains with the Impella support, postoperative day four from CABG x3. She is awake, following commands. Off vasopressors. Remains on heparin drip and sodium bicarbonate drip. Continue to follow critical Care and Cardiothoracic input and recommendation. 08/25 PATIENT IS SEEN AND EXAMINED AT BEDSIDE, DISCUSSED WITH THE RN, NO ACUTE EVENTS OVERNIGHT, PATIENT FOLLOWING COMMANDS, SHE REMAINS WITH THE IMPELLA SUPPORT, CHEST TUBE IN PLACE, POSTOPERATIVE DAY FIVE, STATUS POST CABG. CU RRENTLY OFF PRESSORS, ON HEPARIN DRIP. CONTINUE TO FOLLOW CRITICAL CARE AND CARDIOTHORACIC INPUT AND RECOMMENDATIONS. POSSIBLE REMOVAL OF IMPELLA SUPPORT TODAY. 08/26 patient is seen and examined at bedside, discussed with the RN, no acute events overnight, remains with the Impella support, postoperative day four from CABG x6. She is awake, following commands. Off vasopressors. Remains on heparin drip, continue with chest tube in place, continue to follow Cardiothoracic input and recommendation. 08/27 patient is seen and examined at bedside, case discussed with the RN, no acute events overnight, patient awake, following commands, still with the Impella support, status post CABG. No chest pain, shortness shortness for breath, no nausea, no vomiting. Continue with chest tube in place. BP 132/74, afebrile, saturating 99% 4 L nasal cannula. CBC with a hemoglobin 9.0, hematocrit 28.1, WBC 12.2, with a platelet count of 152. Sodium 140, potassium 4.0, BUN of 12, creatinine 0.6, initially 2.10. Cardiology input noted and appreciated, echocardiogram ordered, we will follow report. Continue to follow Cardiothoracic input and recommendation. 08/28 patient is seen and examined at bedside, case discussed with the RN, no acute events overnight, patient remains admitted to the ICU, the time of my visit, awake, following command, NPO, she is scheduled to be taken to the operating room today for removal of Impella support by cardio thoracic surgeons, we will continue to follow input and recommendation. Limited 2D echo performed yesterday shows left ventricular cavity size is normal, Impella device measuring 5.6 cm into LV. Left ventricular ejection fraction 55-60%, no pericardial effusion. REVIEW OF SYSTEMS CONSTITUTIONAL: generalized fatigue, malaise NEUROLOGICAL: Denies headache, amaurosis fugax, motor weakness, sensory deficit, vertigo/spinning sensation, gait abnormalities, or tremors. ENT: No hearing loss, otalgia, otorrhea, rhinitis, rhinorrhea, hoarseness, or sore throat. CARDIOVASCULAR: Mild incisional chest pain, no shortness breath PULMONARY: Denies any shortness of breath, cough, phlegm/sputum, hemoptysis, pleuritic chest pain. SLEEP: Denies morning headaches, daytime somnolence or napping. Denies diffic ulty falling asleep, staying asleep, waking from sleep. Denies knowledge of snoring. GASTROINTESTINAL: No nausea, Denies any type of dysphagia to either liquids or solids. Denies vomiting, pyrosis, early satiety, abdominal pain, diarrhea, constipation, or changes in stool consistency or caliber. Denies coffee-ground emesis, hematemesis, hematochezia, or melanotic stools. GENITOURINARY: Denies frequency, urgency, nocturia, hematuria or incontinence (Storage/Irritative symptoms.) Low urinary stream, straining to void, urinary intermittency or hesitancy, splitting of the voiding stream, terminal dribbling. ENDOCRINOLOGIC: Denies polyuria, polydipsia, polyphagia or heat/cold i ntolerances. HEMATOLOGIC: Denies thrombophilia/previous clots, or coagulopathy/bleeding disorders. ONCOLOGIC: Denies personal history of malignancy. DERMATOLOGIC: Denies rashes or pruritus. PSYCHIATRIC: Denies any suicidal or homicidal ideation. Denies hallucinations. PHYSICAL EXAM GENERAL APPEARANCE: The patient is awake, appears ill and in no distress NEUROLOGICAL: Cranial nerves II-XII grossly intact. Motor is 5/5 in bilateral upper and lower extremities proximal to distal. No sensory deficits. HEENT: Face is symmetric. Pupils are equal and reactive. Extraocular movements are intact. NECK: Supple. No JVD. No thyromegaly. No submental, submandibular, pre- /postauricular, occipital or supraclavicular lymphadenopathy. CHEST: Normal chest expansion. No Telemetry. LUNGS: minimal crackles noted of the bilateral lung bases CARDIOVASCULAR: Regular. S1 and S2 normal. No appreciable rubs, murmurs or gallops. ABDOMEN: Soft, nontender, and nondistended. There is no rebound, voluntary guarding, or rigidity. : Deferred. No Coombs. EXTREMITIES: trace edema noted of the bilateral lower extremities SKIN: No skin breakdown. Vital Signs (last 8hr) Date Time Temp Pulse Resp B/P (MAP) Pulse Ox O2 Delivery O2 Flow Rate FiO2 08/28/25 06:43 68 26 N/Cannula Low lpm 4.0 36 08/28/25 06:15 69 14 130/74 (92) 100 59/46 (50) 08/28/25 06:00 77 18 138/71 (93) 99 132/123 (126) 08/28/25 06:00 77 18 138/71 (93) 99 132/123 (126) 08/28/25 05:45 71 15 132/72 (92) 99 40/21 (27) 08/28/25 05:30 70 20 133/74 (93) 99 49/29 (36) 08/28/25 05:15 71 27 135/78 (97) 98 41/25 (30) 08/28/25 05:00 68 20 126/70 (88) 99 45/30 (35) 08/28/25 05:00 68 20 126/70 (88) 99 45/30 (35) 08/28/25 04:45 72 17 127/72 (90) 98 45/29 (34) 08/28/25 04:30 69 10 112/69 (83) 99 46/31 (36) 08/28/25 04:15 69 11 113/70 (84) 99 47/30 (36) 08/28/25 04:00 69 11 125/75 (92) 99 44/28 (33) 08/28/25 04:00 99 Nasal Cannula* 4 36 08/28/25 04:00 69 11 125/75 (92) 99 44/28 (33) 08/28/25 04:00 98.1 08/28/25 03:45 68 16 134/73 (93) 98 63/51 (55) 08/28/25 03:30 70 13 132/78 (96) 100 08/28/25 03:15 72 16 129/76 (93) 99 08/28/25 03:00 67 16 130/74 (92) 99 08/28/25 02:45 68 11 118/72 (87) 99 08/28/25 02:30 68 10 131/70 (90) 98 08/28/25 02:15 68 12 126/70 (88) 98 52/32 (39) 08/28/25 02:00 69 11 131/70 (90) 98 51/32 (38) 08/28/25 02:00 69 11 131/70 (90) 98 51/32 (38) 08/28/25 01:45 69 11 128/72 (90) 98 56/35 (42) LABS: Laboratory: Test 08/28/25 08:31 08/28/25 03:42 08/27/25 20:39 08/27/25 04:04 Range/Units Prothrombin Time 11.8 H 9.6-11.6 SEC Prothromb Time International Ratio 1.13 0.85-1.15 Activated Partial Thromboplast Time 55.4 H 26.3-35.5 SEC Sodium Level 141 136-145 mmol/L Potassium Level 3.9 3.5-5.1 mmol/L Chloride Level 104 101-111 mmol/L Carbon Dioxide Level 34 H 21-32 mmol/L Blood Urea Nitrogen 12 7-18 mg/dL Creatinine 0.6 0.5-1.0 mg/dL Glomerular Filtration Rate Calc 104 >90 mL/min Random Glucose 172 H 70-105 mg/dL Total Calcium 7.9 L 8.5-10.1 mg/dL Total Bilirubin 0.5 0.2-1.0 mg/dL Aspartate Amino Transf (AST/SGOT) 44 H 10-37 U/L Alanine Aminotransferase (ALT/SGPT) 32 12-78 U/L Alkaline Phosphatase 268 H 50-136 U/L Total Protein 6.2 6.0-8.3 g/dL Albumin 1.8 L 3.5-5.0 g/dL White Blood Count 9.6 4.8-10.8 K/uL Red Blood Count 3.14 L 4.00-5.50 MIL/uL Hemoglobin 9.7 L 12.0-16.0 g/dL Hematocrit 30.1 L 36-48 % Mean Corpuscular Volume 95.9 79-99 fL Mean Corpuscular Hemoglobin 30.9 27.0-33.0 pg Mean Corpuscular Hemoglobin Concent 32.2 32.0-36.0 g/dL Red Cell Distribution Width 19.9 H 11.0-15.5 % Platelet Count 134 130-400 K/uL Mean Platelet Volume 10.6 H 7.5-10.5 fL Immature Granulocyte % (Auto) 3.8 H 0-1 % Neutrophils (%) (Auto) 58.2 40.0-77.0 % Lymphocytes (%) (Auto) 23.3 21.0-51.0 % Monocytes (%) (Auto) 10.0 3.0-13.0 % Eosinophils (%) (Auto) 4.4 0.0-8.0 % Basophils (%) (Auto) 0.3 0.0-5.0 % Neutrophils # (Auto) 5.6 1.8-7.7 K/uL Lymphocytes # (Auto) 2.2 1.0-4.8 K/uL Monocytes # (Auto) 1.0 0.1-1.0 K/uL Eosinophils # (Auto) 0.42 0.00-0.70 K/uL Basophils # (Auto) 0.03 0.00-0.20 K/uL Absolute Immature Granulocyte (auto 0.37 0-1 K/uL Nucleated Red Blood Cells 0.0 0.0-0.19 % Whole Blood Glucose 156 H 70-110 MG/DL Blood Gas Specimen Type Arterial Arterial Blood pH 7.457 H 7.350-7.450 Arterial Blood Partial Pressure CO2 36 32-45 mmHg Arterial Blood Partial Pressure O2 134.5 H 83.0-108.0 mmHg Arterial Blood HCO3 25.1 21.0-28.0 mmol/L Arterial Blood Oxygen Saturation 98.4 H 94.0-98.0 % Arterial Blood Base Excess 1.3 -2.0-3.0 mmol/L Hemoglobin (Blood Gas) 10.8 L 12.0-16.0 g/dL Sodium (Blood Gas) 136 136-145 MMOL/L Bedside Potassium (Blood Gas) 3.9 3.4-4.5 MMOL/L Bedside Chloride (Blood Gas) 105 98-107 MMOL/L Bedside Glucose (Blood Gas) 194 H 65-95 MG/DL Bedside Ionized Calcium (Blood Gas) 1.15 1.15-1.33 MMOL/L Bedside Lactic Acid (Blood Gas) 0.88 H 0.36-0.75 MMOL/L Blood Gas Temperature 37.0 35.5-37.0 CELSIUS Blood Gas Flow-by 15.00 0.00-15.00 L/min Blood Gas Vent Mode VM ROOM AIR FiO2 50.0 % Blood Gas Specimen Comment NAVIN RN ,LR Test 08/27/25 04:01 Range/Units Fibrinogen 612 *H 180-350 mg/dL Ionized Calcium 1.12 L 1.15-1.33 MMOL/L Magnesium Level 2.10 1.80-2.40 mg/dL Current Medications Medications (Trade) Dose Ordered Sig/Elmer Route PRN Reason Start Time Stop Time Status Last Admin Dose Admin Acetaminophen (TYLenol 325MG TAB) 650 mg Q4H PRN PO Temp >38.3C(AFTER EXTUBATION) 08/20/25 17:00 09/19/25 16:59 Acetaminophen (TYLenol 325MG TAB) 650 mg Q6H PRN PO MILD PAIN (1-3) 08/13/25 16:30 09/12/25 16:29 08/23/25 11:01 650 MG Acetaminophen (TYLenol 500MG TAB) 500 mg Q6H PRN PO TEMP < 101.1 AND/OR HEADACHE 08/14/25 14:30 09/13/25 14:29 08/26/25 10:41 500 MG Acetaminophen (TYLenol 650MG SUPPOSITORY) 650 mg Q4H PRN RC Temp >38.3C WHILE INTUBATED 08/20/25 17:00 09/19/25 16:59 Acetaminophen (acetaMINOPHEN 1,000MG/100ML) 1,000 mg Q6H6 IVPB 08/21/25 12:00 09/20/25 11:59 08/28/25 05:41 1,000 MG Albumin Human 50 ml @ 0 mls/hr BID IV 08/18/25 09:00 08/23/25 08:59 DC 08/22/25 20:56 100 MLS/HR Albumin Human 250 ml @ 0 mls/hr AD PRN IV IF HEMODYNAMICALLY UNSTABLE 08/20/25 17:00 08/20/25 22:46 DC 08/20/25 22:46 0 MLS/HR Aminocaproic Acid 99807 mg/Sodium Chloride 310 ml @ 25 mls/hr AD IV 08/20/25 17:00 08/21/25 05:23 DC Aminocaproic Acid 46076 mg/Sodium Chloride 480 ml @ 0 mls/hr AD PRN IV BLEEDING CONTROL 08/20/25 08:00 09/19/25 07:59 Aminocaproic Acid 73000 mg/Sodium Chloride 480 ml @ 0 mls/hr AD PRN IV BLEEDING CONTROL 08/20/25 09:00 08/20/25 09:03 DC Amiodarone HCl (pacERONE 200MG) 200 mg BID PO 08/22/25 09:00 08/29/25 21:00 08/28/25 09:13 200 MG Amiodarone HCl 360 mg/Dextrose 207.2 ml @ 33.3 mls/hr AD IV 08/20/25 21:00 08/20/25 21:05 DC Amiodarone HCl 540 mg/Dextrose 310.8 ml @ 16.7 mls/hr [id number] IV 08/21/25 03:00 08/27/25 06:20 DC 08/21/25 20:12 16.7 MLS/HR Amiodarone HCL/ Dextrose 207.2 ml @ 33.3 mls/hr AD IV 08/20/25 21:30 08/21/25 10:49 DC 08/20/25 21:24 33.3 MLS/HR Aspirin (Aspirin 81mg Chew Tab) 81 mg DAILY PO 08/14/25 09:00 09/13/25 08:59 08/28/25 09:13 81 MG Atorvastatin Calcium (LIPItor 40MG) 40 mg HS PO 08/13/25 21:00 09/12/25 20:59 08/27/25 21:02 40 MG Benzocaine (Cepacol Sore Throat Lozenge) 1 each Q4H PRN MM SORE THROAT 08/26/25 11:30 09/25/25 11:29 Bisacodyl (DulcoLAX) 10 mg DAILY RC 08/17/25 09:00 08/20/25 08:59 DC 08/18/25 07:58 10 MG Calcium Carbonate (Tums 500 Mg Chew Tab) 500 tab QID PRN PO HEARTBURN 08/19/25 12:00 08/20/25 16:32 DC 08/20/25 05:10 1 TAB Calcium Gluconate 1 gm/Sodium Chloride 60 ml @ 200 mls/hr AD PRN IV HYPOCALCEMIA 08/20/25 17:00 09/19/25 16:59 08/27/25 04:26 200 MLS/HR Cefazolin Sodium (Ancef) 2 gm ONCALL IVP 08/19/25 19:30 08/21/25 08:36 DC 08/20/25 16:30 2 GM Cefazolin Sodium (Ancef) 2 gm Q8H IVPB 08/20/25 22:00 08/21/25 14:01 DC 08/21/25 13:45 2 GM Ceftriaxone Sodium (Rocephin 2gm Inj) 2 gm Q24H IVPB 08/14/25 11:30 08/24/25 11:29 DC 08/23/25 12:16 2 GM Chlordiazepoxide HCl (LIBrium 25 MG CAP) 25 mg Q2H PRN PO ALCOHOL WITHDRAWAL PROTOCOL 08/14/25 14:30 08/20/25 16:32 DC 08/16/25 23:38 25 MG Chlordiazepoxide HCl (LIBrium 25 MG CAP) 50 mg Q1H PRN PO ALCOHOL WITHDRAWAL PROTOCOL 08/14/25 14:30 08/20/25 16:32 DC Dexmedetomidine/ Sodium Chloride (PRECEdex 400MCG/ 100ML-NS) 400 mcg PROTOCOL IV 08/20/25 20:30 09/19/25 20:29 08/22/25 00:35 400 MCG Dextrose (D50w) 50 ml AD PRN IV HYPOGLYCEMIA PROTOCOL 08/20/25 17:00 09/19/25 16:59 Dextrose (D50w) 50 ml AD PRN IV HYPOGLYCEMIA PROTOCOL 08/13/25 20:00 08/20/25 22:03 DC Diphenhydramine HCl (BENAdryl INJ) 25 mg ONCE PRN IV ITCHING 08/15/25 23:00 08/17/25 22:59 DC Docusate Sodium (COLace 100MG CAP) 100 mg BID PRN PO CONSTIPATION 08/14/25 11:00 09/13/25 10:59 Dopamine HCl/ Dextrose 250 ml @ 0 mls/hr PROTOCOL IV 08/13/25 16:00 09/12/25 15:59 08/16/25 16:41 3 MLS/HR Epinephrine HCl 10 mg/Sodium Chloride 250 ml @ 14.091 mls/ hr AD PRN IV POST-OP CARDIOVASCULAR ORDERS 08/20/25 17:00 08/21/25 10:49 DC Epinephrine HCl 10 mg/Sodium Chloride 250 ml @ 0 mls/hr AD PRN IV TITRATE 08/20/25 08:00 09/19/25 07:59 08/26/25 16:56 0 MLS/HR Epinephrine HCl 10 mg/Sodium Chloride 250 ml @ 0 mls/hr AD PRN IV TITRATE 08/20/25 09:00 08/20/25 09:03 DC Famotidine (Pepcid 20mg Vial) 20 mg BID IV 08/20/25 21:00 08/22/25 08:20 DC 08/21/25 20:17 20 MG Famotidine (Pepcid 20mg Tab) 20 mg BID PO 08/22/25 09:00 09/21/25 08:59 08/28/25 09:13 20 MG Folic Acid (FOLic ACID 1 MG TABLET) 1 mg DAILY PO 08/15/25 09:00 08/17/25 09:01 DC 08/17/25 07:46 1 MG Furosemide (LASix 20MG VIAL) 20 mg Q12H IV 08/21/25 11:30 08/22/25 14:17 DC 08/22/25 11:53 20 MG Furosemide (LASix 20MG VIAL) 20 mg Q12H IV 08/22/25 21:00 08/23/25 11:37 DC 08/23/25 09:50 20 MG Furosemide (LASix 20MG VIAL) 40 mg Q12H IV 08/22/25 21:00 08/22/25 14:32 DC Furosemide (LASix 40MG VIAL) 40 mg Q12H IV 08/23/25 11:30 09/22/25 11:29 08/27/25 23:59 40 MG Gabapentin (NEURontin 300 MG CAP) 300 mg TID PO 08/23/25 14:00 09/22/25 13:59 08/28/25 09:13 300 MG Glucagon (Glucagon 1mg Kit) 1 mg AD PRN IM HYPOGLYCEMIA PROTOCOL 08/20/25 17:00 09/19/25 16:59 Glucagon (Glucagon 1mg Kit) 1 mg AD PRN IM HYPOGLYCEMIA PROTOCOL 08/13/25 20:00 08/21/25 10:49 DC Heparin Sodium (Porcine) (HEParin 5,000 UNIT VIAL) *calculation based on ACTUAL B... AD PRN IV HEPARIN PROTOCOL 08/13/25 16:30 08/20/25 16:32 DC 08/17/25 04:46 3,175 UNIT Heparin Sodium/ Dextrose 250 ml @ 0 mls/hr PROTOCOL IV 08/21/25 11:30 09/20/25 11:29 08/27/25 13:07 10 MLS/HR Heparin Sodium/ Dextrose 250 ml @ 0 mls/hr Q6H IV 08/13/25 16:30 08/20/25 16:32 DC 08/19/25 22:03 11.78 MLS/HR Insulin Glargine (LANtus 100 UNITS/ML 10 ML VIAL) 5 units BID@0730,2100 SQ 08/16/25 21:00 08/17/25 09:31 DC 08/16/25 21:21 5 UNITS Insulin Glargine (LANtus 100 UNITS/ML 10 ML VIAL) 10 units HS SQ 08/13/25 21:00 08/14/25 06:16 DC 08/13/25 20:21 10 UNITS Insulin Glargine (LANtus 100 UNITS/ML 10 ML VIAL) 15 units DAILY SQ 08/23/25 09:00 08/28/25 07:20 DC 08/27/25 08:35 15 UNITS Insulin Glargine (LANtus 100 UNITS/ML 10 ML VIAL) 20 units DAILY SQ 08/14/25 09:00 08/15/25 07:24 DC 08/14/25 08:01 20 UNITS Insulin Glargine (LANtus 100 UNITS/ML 10 ML VIAL) 20 units DAILY SQ 08/28/25 09:00 09/27/25 08:59 Insulin Glargine (LANtus 100 UNITS/ML 10 ML VIAL) 30 units DAILY SQ 08/15/25 09:00 08/16/25 07:19 DC 08/15/25 08:28 30 UNITS Insulin Glargine (LANtus 100 UNITS/ML 10 ML VIAL) 35 units DAILY SQ 08/16/25 09:00 08/19/25 07:35 DC 08/18/25 07:59 35 UNITS Insulin Glargine (LANtus 100 UNITS/ML 10 ML VIAL) 42 units DAILY 08/19/25 09:00 08/20/25 06:22 DC 08/19/25 09:40 42 UNITS Insulin Glargine (LANtus 100 UNITS/ML 10 ML VIAL) 45 units DAILY 08/20/25 09:00 08/20/25 16:32 DC Insulin Human Lispro (HumaLOG LISpro 100 UNIT/ML 3ML) INSULIN SLIDING SCAL... ACHS SQ 08/16/25 21:00 08/17/25 09:31 DC Insulin Human Regular (humuLIN R 100 UNIT/ML 3ML) 3 unit TIDAC SQ 08/27/25 07:30 08/27/25 20:56 DC 08/27/25 16:47 3 UNIT Insulin Human Regular (humuLIN R 100 UNIT/ML 3ML) 5 unit TIDAC SQ 08/14/25 17:00 08/15/25 07:24 DC 08/15/25 07:03 5 UNIT Insulin Human Regular (humuLIN R 100 UNIT/ML 3ML) 6 unit TIDAC SQ 08/28/25 07:30 09/27/25 07:29 Insulin Human Regular (humuLIN R 100 UNIT/ML 3ML) 8 unit TIDAC SQ 08/15/25 07:30 08/15/25 22:46 DC 08/15/25 16:02 8 UNIT Insulin Human Regular (humuLIN R 100 UNIT/ML 3ML) 10 unit TIDAC SQ 08/16/25 07:30 08/17/25 21:12 DC 08/17/25 16:09 10 UNIT Insulin Human Regular (humuLIN R 100 UNIT/ML 3ML) 12 unit TIDAC SQ 08/18/25 07:30 08/18/25 20:19 DC 08/18/25 16:39 12 UNIT Insulin Human Regular (humuLIN R 100 UNIT/ML 3ML) 16 unit TIDAC SQ 08/19/25 07:30 08/20/25 06:22 DC 08/19/25 16:47 16 UNIT Insulin Human Regular (humuLIN R 100 UNIT/ML 3ML) 17 unit TIDAC SQ 08/20/25 07:30 08/20/25 16:32 DC Insulin Human Regular (humuLIN R 100 UNIT/ML 3ML) INSULIN SLIDING SCAL... ACHS SQ 08/17/25 16:30 08/20/25 16:32 DC 08/19/25 21:31 8 UNIT Insulin Human Regular (humuLIN R 100 UNIT/ML 3ML) INSULIN SLIDING SCAL... ACHS SQ 08/22/25 11:30 08/22/25 21:32 DC 08/22/25 20:58 3 UNIT Insulin Human Regular (humuLIN R 100 UNIT/ML 3ML) INSULIN SLIDING SCAL... ACHS SQ 08/23/25 07:30 09/22/25 07:29 08/27/25 16:46 6 UNIT Insulin Human Regular (humuLIN R 100 UNIT/ML 3ML) INSULIN SLIDING SCAL... ACHS SQ 08/13/25 16:30 08/16/25 20:46 DC 08/16/25 20:01 4 UNIT Insulin Human Regular 100 unit/ Sodium Chloride 100 ml @ 0 mls/hr AD IV 08/20/25 17:00 08/22/25 16:59 DC 08/21/25 15:00 5 MLS/HR Iron Sucrose (VenoFER) 200 mg DAILY IV 08/21/25 13:00 08/23/25 09:43 DC 08/22/25 11:53 200 MG Iron Sucrose (VenoFER) 200 mg DAILY IV 08/23/25 09:00 08/26/25 08:57 DC 08/25/25 09:25 200 MG Lidocaine (Lidocaine Patch 4%) 1 each DAILY TP 08/19/25 09:00 09/18/25 08:59 08/28/25 09:14 1 EACH Lidocaine HCl/ Dextrose 250 ml @ 0 mls/hr PROTOCOL IV 08/21/25 00:00 09/20/25 00:00 Magnesium Sulfate 50 ml @ 12.5 mls/hr AD PRN IV MAG LEVEL LESS THAN 2.0 08/20/25 17:00 09/19/25 16:59 08/26/25 21:11 12.5 MLS/HR Magnesium Sulfate 50 ml @ 0 mls/hr PROTOCOL IV 08/13/25 16:30 08/21/25 10:49 DC 08/21/25 05:58 25 MLS/HR Midodrine (PROAMatine 5 MG TABLET) 5 mg Q6H6 PO 08/26/25 16:00 09/25/25 15:59 08/28/25 05:41 5 MG Morphine Sulfate (morPHINE 2MG SYG) 0.5 mg Q2H PRN IV MODERATE PAIN (4-6) 08/20/25 17:00 08/20/25 18:07 DC Morphine Sulfate (morPHINE 2MG SYG) 2 mg Q6H PRN IVP SEVERE PAIN (7-10) 08/19/25 18:00 08/20/25 16:32 DC 08/19/25 17:50 2 MG Morphine Sulfate (morPHINE 4MG SYG) 0.5 mg Q2H PRN IV MODERATE PAIN (4-6) 08/20/25 18:30 08/21/25 16:59 DC Morphine Sulfate (morPHINE 4MG SYG) 1 mg Q2H PRN IV SEVERE PAIN (7-10) 08/20/25 17:00 08/21/25 16:59 DC Morphine Sulfate (morPHINE 4MG SYG) 2 mg Q6H PRN IVP SEVERE PAIN (7-10) 08/14/25 09:30 08/19/25 12:29 DC 08/19/25 12:22 2 MG Multivitamins Therapeutic (Multivitamin Tablet) 1 tab DAILY PO 08/15/25 09:00 09/14/25 08:59 08/28/25 09:13 1 TAB Nitroglycerin/ Dextrose 0 ml @ 0 mls/hr AD IV 08/20/25 17:00 08/23/25 16:59 DC Nitroglycerin/ Dextrose 250 ml @ 0 mls/hr PROTOCOL IV 08/20/25 03:30 08/20/25 16:32 DC 08/20/25 03:12 1.5 MLS/HR Norepinephrine 250 ml @ 0 mls/hr PROTOCOL IV 08/13/25 15:30 08/20/25 08:31 DC Norepinephrine Bitartrate 250 ml @ 0 mls/hr AD PRN IV TITRATE 08/20/25 08:00 09/19/25 07:59 08/27/25 19:08 10.3 MLS/HR Norepinephrine Bitartrate 250 ml @ 0 mls/hr AD PRN IV TITRATE 08/20/25 09:00 08/20/25 09:03 DC Norepinephrine Bitartrate 8 mg/ Dextrose 250 ml @ 0 mls/hr AD PRN IV POST-OP CARDIOVASCULAR ORDERS 08/20/25 17:00 08/21/25 10:49 DC Ondansetron HCl (zoFRAN 4MG INJ) 4 mg Q4H PRN IV NAUSEA 08/14/25 14:30 08/20/25 16:32 DC 08/14/25 14:17 4 MG Ondansetron HCl (zoFRAN 4MG INJ) 4 mg Q6H PRN IV NAUSEA/VOMITING 08/20/25 17:00 09/19/25 16:59 Ondansetron HCl (zoFRAN 4MG INJ) 4 mg Q6H PRN IVP NAUSEA/VOMITING 08/13/25 16:30 08/14/25 14:08 DC Pantoprazole Sodium (PROTonix 40MG INJ) 40 mg Q12H IVP 08/17/25 16:30 08/20/25 16:32 DC 08/20/25 03:53 40 MG Pantoprazole Sodium (PROTonix 40MG INJ) 40 mg Q24H IVP 08/13/25 16:30 08/17/25 11:10 DC 08/16/25 16:07 40 MG Pharmacy Profile Note (Pharmacy Communication) 1 each PROTOCOL PRN MISC ETOH Withdrawal Score changes 08/14/25 14:30 08/14/25 14:08 DC Phenylephrine HCl 100 mg/Sodium Chloride 250 ml @ 0 mls/hr PROTOCOL IV 08/26/25 20:30 09/25/25 20:29 Polyethylene Glycol (MIRalax 3350 17 GM POWD.PACK) 17 gm DAILY PO 08/15/25 09:00 09/14/25 08:59 08/28/25 09:14 17 GM Potassium Phosphate 250 ml @ 42 mls/hr AD PRN IV LOW PHOS LEVEL 08/20/25 17:00 09/19/25 16:59 Potassium Chloride 100 ml @ 100 mls/hr AD PRN IV HYPOKALEMIA 08/20/25 17:00 09/19/25 16:59 08/27/25 08:34 100 MLS/HR Potassium Chloride 100 ml @ 100 mls/hr AD PRN IV POTASSIUM PROTOCOL 08/13/25 16:30 08/20/25 16:32 DC 08/16/25 16:07 100 MLS/HR Potassium Chloride (K-Dur/Klor-Con 20meq) 20 meq AD PRN PO POTASSIUM PROTOCOL 08/13/25 16:30 08/20/25 16:32 DC 08/15/25 08:23 20 MEQ Potassium Chloride (KCl 10% Elixir 20meq/15ml) 20 meq AD PRN PO POTASSIUM PROTOCOL 08/13/25 16:30 08/20/25 16:32 DC Promethazine HCl (Phenergan) 25 mg Q6H PRN PO NAUSEA 08/14/25 14:30 08/20/25 16:32 DC Propofol 100 ml @ 0 mls/hr AD PRN IV SEDATION 08/20/25 17:00 08/24/25 17:00 DC Sodium Bicarbonate 25 meq/Dextrose 1,000 ml @ 0 mls/hr Q0M IV 08/14/25 00:30 09/13/25 00:29 08/20/25 23:15 50 MLS/HR Sodium Bicarbonate 25 meq/Dextrose 1,000 ml @ 0 mls/hr Q0M IVP 08/14/25 00:30 08/14/25 00:15 DC Sodium Bicarbonate (Sodium Bicarb 50meq 50ml Vial) 50 meq AD PRN IV OTHER[SEE DOSING INSTRUCTIONS] 08/20/25 17:00 08/23/25 16:59 DC 08/21/25 01:19 50 MEQ Sodium Chloride 500 ml @ 500 mls/hr Q1H IV 08/20/25 00:33 08/20/25 03:16 DC 08/20/25 00:53 500 MLS/HR Sodium Chloride 500 ml @ 0 mls/hr AD IV 08/20/25 17:00 09/19/25 16:59 Sodium Chloride 1,000 ml @ 10 mls/hr ONCE IV 08/20/25 17:00 08/21/25 16:59 DC 08/20/25 22:31 10 MLS/HR Sodium Chloride (NS Flush 10ml) 10 ml Q8H PRN IVP IV LINE FLUSH 08/20/25 17:00 09/19/25 16:59 Thiamine HCl (Vitamin B-1) 300 mg DAILY IV 08/15/25 09:00 08/17/25 09:01 DC 08/17/25 07:46 300 MG Ticagrelor (BRILinta) 90 mg BID PO 08/14/25 09:00 08/14/25 21:19 DC 08/14/25 20:09 90 MG Tramadol HCl (UltRAM) 25 mg Q6H PRN PO MODERATE PAIN (4-6) 08/20/25 17:00 08/25/25 16:59 DC Tramadol HCl (UltRAM) 25 mg Q6H PRN PO MODERATE PAIN (4-6) 08/26/25 11:00 08/31/25 10:59 08/27/25 03:12 25 MG Tramadol HCl (UltRAM) 50 mg Q6H PRN PO SEVERE PAIN (7-10) 08/20/25 17:00 08/25/25 16:59 DC 08/25/25 09:24 50 MG Tramadol HCl (UltRAM) 50 mg Q6H PRN PO SEVERE PAIN (7-10) 08/26/25 11:00 08/31/25 10:59 08/27/25 21:03 50 MG Vancomycin HCl 250 ml @ 125 mls/hr Q12H IV 08/18/25 09:00 08/19/25 20:54 DC 08/19/25 09:39 125 MLS/HR Vancomycin HCl 250 ml @ 125 mls/hr Q12H IV 08/24/25 23:00 08/26/25 21:47 DC 08/26/25 11:47 125 MLS/HR Vancomycin HCl 250 ml @ 125 mls/hr Q8H IV 08/19/25 21:30 08/21/25 00:23 DC 08/20/25 22:26 125 MLS/HR Vancomycin HCl 250 ml @ 125 mls/hr Q8H IV 08/21/25 06:30 08/21/25 08:35 DC 08/21/25 08:15 125 MLS/HR Vancomycin HCl 250 ml @ 125 mls/hr Q8H IV 08/21/25 08:00 08/21/25 06:28 DC Vancomycin HCl 250 ml @ 125 mls/hr Q8H IV 08/21/25 16:30 08/24/25 16:54 DC 08/24/25 09:32 125 MLS/HR Vancomycin HCl (Vancomycin Protocol) 1 each AD IV 08/17/25 22:00 08/26/25 21:47 DC DIAGNOSTICS / RADIOLOGY: [ ] ASSESSMENT: Cardiogenic shock with lactic acidosis, POA NSTEMI/ACS, POA Complete heart block, POA History of multivessel coronary artery disease, POA History of cocaine use disorder, POA Severe nonketotic hyperglycemia, POA History of to poorly controlled type 2 diabetes mellitus, POA Lactic acidosis, POA History of anemia, POA History of gastritis, POA History of hypertension, POA History of PTSD/anxiety, POA Obesity, POA Medical noncompliance, POA PLAN: patient is seen and examined at bedside, case discussed with the RN, no acute events overnight, patient remains admitted to the ICU, the time of my visit, awake, following command, NPO, she is scheduled to be taken to the operating room today for removal of Impella support by cardio thoracic surgeons, we will continue to follow input and recommendation. Limited 2D echo performed yesterday shows left ventricular cavity size is normal, Impella device measuring 5.6 cm into LV. Left ventricular ejection fraction 55-60%, no pericardial effusion. NEURO: MINIMIZE CENTRAL ACTING MEDICATIONS POSSIBLE. FALL PRECAUTIONS. WELL LIGHTED ROOM THROUGH THE DAY AND MINIMIZE INTERRUPTIONS THROUGH THE NIGHT TO PREVENT ACUTE DELIRIUM. PULMONARY: SUPPLEMENTAL 02 NEEDED BIPAP NECESSARY, FOR RESPIRATORY DISTRESS TITRATE FIO2 TO KEEP SPO2 > OR = 90% DUONEBS AND CPT NEEDED IS HOURLY WHILE AWAKE FOR PULMONARY HYGIENE PRN OUT OF BED TO CHAIR TOLERATED MAINTAIN ASPIRATION PRECAUTIONS AT ALL TIMES CARDIOVASCULAR: FOLLOW HEMODYNAMICS. VITAL SIGNS PER FACILITY PROTOCOL GI & NUTRITION: CONTINUE NUTRITIONAL SUPPORT ASPIRATIONS PRECAUTIONS PROKINETIC AGENTS AND LAXATIVES NEEDED KIDNEYS & ELECTROLYTES: STRICT MONITORING OF INTAKE AND OUTPUT DAILY WEIGHTS AVOID NEPHROTOXIC AGENTS MONITOR ELECTROLYTES AND REPLACE NEEDED GOAL URINE OUTPUT OF 30ML/HR OR 0.5ML/KG/HR MEDICATIONS TO BE DOSED ACCORDING TO RENAL FUNCTION. AVOID CONTRAST IF POSSIBLE ENDOCRINE: MAINTAIN BLOOD GLUCOSE BETWEEN 100-180 AT ALL TIMES. INSULIN SLIDING SCALE FOR BLOOD GLUCOSE MANAGEMENT HYPOGLYCEMIA AND HYPERGLYCEMIA PROTOCOL IN PLACE INFECTIOUS DISEASE: TREND TEMPERATURE, WBC AND PROCALCITONIN LEVEL FOLLOW CULTURES, DEESCALATE ANTIBIOTICS SOON POSSIBLE. PANCULTURE IF NEW ONSET FEVER HEMATOLOGY & COAGULATION: MONITOR H&H. KEEP HGB > 7 TRANSFUSE 1 UNIT OF PRBC FOR HGB < 7 TRANSFUSE 1 PACK OF PLATELETS OF PLATELETS < 20, 000 WATCH FOR ANY SIGNS AND SYMPTOMS OF BLEEDING SKIN: PRESSURE ULCER PREVENTION PER FACILITY PROTOCOL SPECIALTY MATTRESS NEEDED ORTHO/REHAB CONTINUE PT/OT PRN: MEDICATIONS TYLENOL 650 MG PO EVERY 4 HRS FOR FEVER ZOFRAN 4 MG IV EVERY 6 HRS FOR N/V HYDRALAZINE 5 MG IV EVERY 4 HRS SYSTOLIC PRESSURE > 160 BOWEL REGIMENT: LACTULOSE 20 GM PO BID PRN CONSTIPATION SUPPORTIVE MEASURES: CONTINUE GI AND DVT PROPHYLAXIS DISPOSITION: PENDING IMPROVEMENT IN CLINICAL CONDITION ALL QUESTIONS ANSWERED TIME SPENT: > 35 MIN GEE MARTIN MD Aug 28, 2025 09:46
--- NOTE | 2025-08-28 10:50 | HMCIMG ---
CHEST 1VW REASON: devices post cabg COMPARISON: Prior study from 08/27/2025 is available. FINDINGS: Single view of the chest was obtained. There is cardiomegaly with median sternotomy with left atrial clipping with cardiac revascularization procedure. There is diffuse interstitial pulmonary edema which appears to be worsening as compared to the prior radiograph. The support lines ever seen on the prior study appears to be unchanged in position.. Mediastinum and bony thorax appear unremarkable. IMPRESSION: 1. Cardiomegaly with median sternotomy with cardiac revascularization procedure. 2. Worsening interstitial pulmonary edema as compared to prior study.
--- NOTE | 2025-08-28 11:00 | NUR ---
PT STILL WITH IMPELLA IN PLACE. PLAN IS TO HAVE IT REMOVED IN SURGERY TODAY PER NURSE MINDY. Addendum: 08/28/25 at 1139 by WAQAS COATES PT Amended: Links added.
[2025-08-29] VITALS (79 sets, daily range): BP systolic 34–161; BP diastolic 8–112; PULSE 44–100; RESP 8–51; TEMP 98.3–99.1; O2SAT 97–100
[2025-08-29 04:24] LABS: IMMATURE GRANULOCYTE ABSOLUTE 0.15 K/uL (0-1); NUCLEATED RED BLOOD CELLS 0.0 % (0.0-0.19); PLATELET COUNT (AUTO) 121 K/uL (130-400); RED BLOOD CELL COUNT(AUTO) 3.21 MIL/uL (4.00-5.50); RED CELL DISTRIBUTION WIDTH 19.5 % (11.0-15.5); WHITE BLOOD COUNT (AUTO) 6.6 K/uL (4.8-10.8)
[2025-08-29 04:41] LABS: CREATININE 0.6 mg/dL (0.5-1.0); GLOMERULAR FILTR. RATE CALC 104.0 mL/min (>90); GLUCOSE,RANDOM 230.0 mg/dL (70-105); SODIUM SERUM 140.0 mmol/L (136-145); UREA NITROGEN, BLOOD 12.0 mg/dL (7-18)
--- NOTE | 2025-08-29 08:54 | PN ---
[facility] PROGRESS NOTE Date of Service: Aug 29, 2025 Time of Service: 08:53 SUBJECTIVE: This is a 60-year-old female with underlying history of obesity, coronary artery disease, poorly controlled type 2 diabetes mellitus, history of anemia, history of cocaine use, tobacco use disorder, history of CVA in 2008, who presented to the ER for further evaluation of severe substernal chest pain and shortness of breadth. Patient reports having history of cocaine use with last use of cocaine yesterday. She reports having severe substernal chest pain that started today in it has been associated with dizziness, and generalized malaise. Pain is 10/1 0 in severity. Patient denies any syncope or fall. She has been having lightheadedness with ambulation. She has not been able to follow up with Cardiology as outpatient. She has a previous history of abnormal CT coronary angiography when she was hospitalized in 04/2025 and she was treated medically. With regards to type 2 diabetes mellitus, she reports being on metformin as ou tpatient. On presentation to the hospital, patient was noted to be hypotensive with blood pressure of 80/60 with heart rate of 40 with EKG showing complete heart block. [place] [address], hemoglobin 12.4, platelet count of [id number]. BMP showed sodium of 133, potassium 4.8, chloride of 99, BUN of 21, creatinine 1.0, blood glucose of 403, [place] [address]. Chest x-ray showed no acute infiltrates. Patient will be admitted for further management of cardiogenic shock, NSTEMI, complete heart block with history of poorly controlled type 2 diabetes mellitus. Patient will be emergently taken to the photo lab technician for cardiac catheterization/ PCI and tentative plan for MCS support. Patient will be admitted to intensive care unit and she remains critically ill. 08/14 patient remains critically ill requiring Impella and dopamine support. UDS has demonstrated benzos and cocaine 08/15 patient remains on Impella 08/16 patient appears to be resting comfortably in bed. She remains on Impella and dopamine support. She reports she would like to be bathed and wants her hair combed significant and she is feeling better 08/17 patient is on GI soft diet tolerating well. She remains on Impella support 08/18 patient is resting comfortably in bed. She remains on Impella. Tolerating oral intake. 08/19 hemoglobin dropped to 6.5 from 7.0-7.5 yesterday. I agree with transfusing 1 unit PRBC. Patient remains on Impella. Patient is resting comfortably in bed. 08/20 patient is resting comfortably in bed. She remains on Impella support pending recovery for CABG. 08/21 patient underwent CABG x3 yesterday, no complications reported patient remains on Impella the patient is on norepinephrine, amiodarone, dopamine, insulin drip 08/22 postop day 2. From CABG x3. Patient does awaken to verbal stimulation and states she has some chest pain and slight shortness for breath she feels the pain as incisional from her open heart procedure. He is on p.o. amiodarone and being weaned off norepinephrine. 08/23 postop day 3 from CABG x3. Patient is in bed visiting with her son at the bedside. She states she has no shortness for breath, she does have some incisional chest discomfort, no nausea or vomiting or diarrhea. She is off nor epinephrine drip and remains with the Impella assist. 08/24 patient is seen and examined at bedside, discussed with the RN, no acute events overnight, remains with the Impella support, postoperative day four from CABG x3. She is awake, following commands. Off vasopressors. Remains on heparin drip and sodium bicarbonate drip. Continue to follow critical Care and Cardiothoracic input and recommendation. 08/25 PATIENT IS SEEN AND EXAMINED AT BEDSIDE, DISCUSSED WITH THE RN, NO ACUTE EVENTS OVERNIGHT, PATIENT FOLLOWING COMMANDS, SHE REMAINS WITH THE IMPELLA SUPPORT, CHEST TUBE IN PLACE, POSTOPERATIVE DAY FIVE, STATUS POST CABG. CU RRENTLY OFF PRESSORS, ON HEPARIN DRIP. CONTINUE TO FOLLOW CRITICAL CARE AND CARDIOTHORACIC INPUT AND RECOMMENDATIONS. POSSIBLE REMOVAL OF IMPELLA SUPPORT TODAY. 08/26 patient is seen and examined at bedside, discussed with the RN, no acute events overnight, remains with the Impella support, postoperative day four from CABG x6. She is awake, following commands. Off vasopressors. Remains on heparin drip, continue with chest tube in place, continue to follow Cardiothoracic input and recommendation. 08/27 patient is seen and examined at bedside, case discussed with the RN, no acute events overnight, patient awake, following commands, still with the Impella support, status post CABG. No chest pain, shortness shortness for breath, no nausea, no vomiting. Continue with chest tube in place. BP 132/74, afebrile, saturating 99% 4 L nasal cannula. CBC with a hemoglobin 9.0, hematocrit 28.1, WBC 12.2, with a platelet count of 152. Sodium 140, potassium 4.0, BUN of 12, creatinine 0.6, initially 2.10. Cardiology input noted and appreciated, echocardiogram ordered, we will follow report. Continue to follow Cardiothoracic input and recommendation. 08/28 patient is seen and examined at bedside, case discussed with the RN, no acute events overnight, patient remains admitted to the ICU, the time of my visit, awake, following command, NPO, she is scheduled to be taken to the operating room today for removal of Impella support by cardio thoracic surgeons, we will continue to follow input and recommendation. Limited 2D echo performed yesterday shows left ventricular cavity size is normal, Impella device measuring 5.6 cm into LV. Left ventricular ejection fraction 55-60%, no pericardial effusion. 08/29 patient is seen and examined at bedside, case discussed with the RN, no acute events overnight, patient remains admitted to the ICU, the time of my visit, awake, following command, NPO, she is scheduled to be taken to the operating room today for removal of Impella support by cardio thoracic surgeons, we will continue to follow input and recommendation. Limited 2D echo performed yesterday shows left ventricular cavity size is normal, Impella device measuring 5.6 cm into LV. Left ventricular ejection fraction 55-60%, no pericardial effusion. REVIEW OF SYSTEMS CONSTITUTIONAL: generalized fatigue, malaise NEUROLOGICAL: Denies headache, amaurosis fugax, motor weakness, sensory deficit, vertigo/spinning sensation, gait abnormalities, or tremors. ENT: No hearing loss, otalgia, otorrhea, rhinitis, rhinorrhea, hoarseness, or sore throat. CARDIOVASCULAR: Mild incisional chest pain, no shortness breath PULMONARY: Denies any shortness of breath, cough, phlegm/sputum, hemoptysis, pleuritic chest pain. SLEEP: Denies morning headaches, daytime somnolence or napping. Denies difficulty falling asleep, staying asleep, waking from sleep. Denies knowledge of snoring. GASTROINTESTINAL: No nausea, Denies any type of dysphagia to either liquids or solids. Denies vomiting, pyrosis, early satiety, abdominal pain, diarrhea, constipation, or changes in stool consistency or caliber. Denies coffee-ground emesis, hematemesis, hematochezia, or melanotic stools. GENITOURINARY: Denies frequency, urgency, nocturia, hematuria or incontinence (Storage/Irritative symptoms.) Low urinary stream, straining to void, urinary intermittency or hesitancy, splitting of the voiding stream, terminal dribbling. ENDOCRINOLOGIC: Denies polyuria, polydipsia, polyphagia or heat/cold intolerances. HEMATOLOGIC: Denies thrombophilia/previous clots, or coagulopathy/bleeding disorders. ONCOLOGIC: Denies personal history of malignancy. DERMATOLOGIC: Denies rashes or pruritus. PSYCHIATRIC: Denies any suicidal or homicidal ideation. Denies hallucinations. PHYSICAL EXAM GENERAL APPEARANCE: The patient is awake, appears ill and in no distress NEUROLOGICAL: Cranial nerves II-XII grossly intact. Motor is 5/5 in bilateral upper and lower extremities proximal to distal. No sensory deficits. HEENT: Face is symmetric. Pupils are equal and reactive. Extraocular movements are intact. NECK: Supple. No JVD. No thyromegaly. No submental, submandibular, pre- /postauricular, occipital or supraclavicular lymphadenopathy. CHEST: Normal chest expansion. No Telemetry. LUNGS: minimal crackles noted of the bilateral lung bases CARDIOVASCULAR: Regular. S1 and S2 normal. No appreciable rubs, murmurs or gallops. ABDOMEN: Soft, nontender, and nondistended. There is no rebound, voluntary guarding, or rigidity. : Deferred. No Coombs. EXTREMITIES: trace edema noted of the bilateral lower extremities SKIN: No skin breakdown. Vital Signs (last 8hr) Date Time Temp Pulse Resp B/P (MAP) Pulse Ox O2 Delivery O2 Flow Rate FiO2 08/29/25 06:59 73 20 N/Cannula Low lpm 2.0 28 08/29/25 06:45 72 14 128/72 (90) 98 08/29/25 06:30 73 18 122/65 (84) 96 08/29/25 06:15 71 12 119/65 (83) 100 37/21 (26) 08/29/25 06:00 70 14 102/63 (76) 98 41/29 (33) 08/29/25 05:45 74 14 105/60 (75) 96 38/17 (24) 08/29/25 05:30 71 19 120/67 (84) 99 35/13 (20) 08/29/25 05:15 73 20 121/78 (92) 99 34/9 (17) 08/29/25 05:00 71 21 123/69 (87) 97 40/12 (21) 08/29/25 04:45 73 17 142/78 (99) 98 53/16 (28) 08/29/25 04:30 69 12 118/70 (86) 96 35/8 (17) 08/29/25 03:15 68 11 107/62 (77) 99 08/29/25 03:01 94/65 08/29/25 03:00 69 12 111/64 (80) 99 08/29/25 02:54 64 20 N/Cannula Low lpm 2.0 28 08/29/25 02:45 70 14 105/62 (76) 99 08/29/25 02:30 70 13 94/65 (75) 99 08/29/25 02:15 72 12 103/61 (75) 98 08/29/25 02:00 72 15 111/65 (80) 98 08/29/25 01:45 75 14 126/74 (91) 99 08/29/25 01:30 71 17 108/60 (76) 100 08/29/25 01:15 70 12 92/54 (67) 99 08/29/25 01:00 71 13 110/63 (79) 99 LABS: Laboratory: Test 08/29/25 06:41 08/29/25 03:48 08/28/25 08:31 Range/Units Whole Blood Glucose 181 H 70-110 MG/DL White Blood Count 6.6 4.8-10.8 K/uL Red Blood Count 3.21 L 4.00-5.50 MIL/uL Hemoglobin 9.8 L 12.0-16.0 g/dL Hematocrit 31.2 L 36-48 % Mean Corpuscular Volume 97.2 79-99 fL Mean Corpuscular Hemoglobin 30.5 27.0-33.0 pg Mean Corpuscular Hemoglobin Concent 31.4 L 32.0-36.0 g/dL Red Cell Distribution Width 19.5 H 11.0-15.5 % Platelet Count 121 L 130-400 K/uL Mean Platelet Volume 10.4 7.5-10.5 fL Immature Granulocyte % (Auto) 2.3 H 0-1 % Neutrophils (%) (Auto) 63.8 40.0-77.0 % Lymphocytes (%) (Auto) 19.5 L 21.0-51.0 % Monocytes (%) (Auto) 9.3 3.0-13.0 % Eosinophils (%) (Auto) 4.9 0.0-8.0 % Basophils (%) (Auto) 0.2 0.0-5.0 % Neutrophils # (Auto) 4.2 1.8-7.7 K/uL Lymphocytes # (Auto) 1.3 1.0-4.8 K/uL Monocytes # (Auto) 0.6 0.1-1.0 K/uL Eosinophils # (Auto) 0.32 0.00-0.70 K/uL Basophils # (Auto) 0.01 0.00-0.20 K/uL Absolute Immature Granulocyte (auto 0.15 0-1 K/uL Nucleated Red Blood Cells 0.0 0.0-0.19 % Sodium Level 140 136-145 mmol/L Potassium Level 4.0 3.5-5.1 mmol/L Chloride Level 101 101-111 mmol/L Carbon Dioxide Level 36 H 21-32 mmol/L Blood Urea Nitrogen 12 7-18 mg/dL Creatinine 0.6 0.5-1.0 mg/dL Glomerular Filtration Rate Calc 104 >90 mL/min Random Glucose 230 H 70-105 mg/dL Total Calcium 8.1 L 8.5-10.1 mg/dL Magnesium Level 1.40 L 1.80-2.40 mg/dL Prothrombin Time 11.8 H 9.6-11.6 SEC Prothromb Time International Ratio 1.13 0.85-1.15 Activated Partial Thromboplast Time 55.4 H 26.3-35.5 SEC Total Bilirubin 0.5 0.2-1.0 mg/dL Aspartate Amino Transf (AST/SGOT) 44 H 10-37 U/L Alanine Aminotransferase (ALT/SGPT) 32 12-78 U/L Alkaline Phosphatase 268 H 50-136 U/L Total Protein 6.2 6.0-8.3 g/dL Albumin 1.8 L 3.5-5.0 g/dL Current Medications Medications (Trade) Dose Ordered Sig/Elmer Route PRN Reason Start Time Stop Time Status Last Admin Dose Admin Acetaminophen (TYLenol 325MG TAB) 650 mg Q4H PRN PO Temp >38.3C(AFTER EXTUBATION) 08/20/25 17:00 09/19/25 16:59 Acetaminophen (TYLenol 325MG TAB) 650 mg Q6H PRN PO MILD PAIN (1-3) 08/13/25 16:30 09/12/25 16:29 08/23/25 11:01 650 MG Acetaminophen (TYLenol 500MG TAB) 500 mg Q6H PRN PO TEMP < 101.1 AND/OR HEADACHE 08/14/25 14:30 09/13/25 14:29 08/26/25 10:41 500 MG Acetaminophen (TYLenol 650MG SUPPOSITORY) 650 mg Q4H PRN RC Temp >38.3C WHILE INTUBATED 08/20/25 17:00 09/19/25 16:59 Acetaminophen (acetaMINOPHEN 1,000MG/100ML) 1,000 mg Q6H6 IVPB 08/21/25 12:00 09/20/25 11:59 08/29/25 05:39 1,000 MG Albumin Human 50 ml @ 0 mls/hr BID IV 08/18/25 09:00 08/23/25 08:59 DC 08/22/25 20:56 100 MLS/HR Albumin Human 250 ml @ 0 mls/hr AD PRN IV IF HEMODYNAMICALLY UNSTABLE 08/20/25 17:00 08/20/25 22:46 DC 08/20/25 22:46 0 MLS/HR Aminocaproic Acid 77860 mg/Sodium Chloride 310 ml @ 25 mls/hr AD IV 08/20/25 17:00 08/21/25 05:23 DC Aminocaproic Acid 39632 mg/Sodium Chloride 480 ml @ 0 mls/hr AD PRN IV BLEEDING CONTROL 08/20/25 08:00 09/19/25 07:59 Aminocaproic Acid 54860 mg/Sodium Chloride 480 ml @ 0 mls/hr AD PRN IV BLEEDING CONTROL 08/20/25 09:00 08/20/25 09:03 DC Amiodarone HCl (pacERONE 200MG) 200 mg BID PO 08/22/25 09:00 08/29/25 21:00 08/28/25 20:25 200 MG Amiodarone HCl 360 mg/Dextrose 207.2 ml @ 33.3 mls/hr AD IV 08/20/25 21:00 08/20/25 21:05 DC Amiodarone HCl 540 mg/Dextrose 310.8 ml @ 16.7 mls/hr [id number] IV 08/21/25 03:00 08/27/25 06:20 DC 08/21/25 20:12 16.7 MLS/HR Amiodarone HCL/ Dextrose 207.2 ml @ 33.3 mls/hr AD IV 08/20/25 21:30 08/21/25 10:49 DC 08/20/25 21:24 33.3 MLS/HR Aspirin (Aspirin 81mg Chew Tab) 81 mg DAILY PO 08/14/25 09:00 09/13/25 08:59 08/28/25 09:13 81 MG Atorvastatin Calcium (LIPItor 40MG) 40 mg HS PO 08/13/25 21:00 09/12/25 20:59 08/28/25 20:26 40 MG Benzocaine (Cepacol Sore Throat Lozenge) 1 each Q4H PRN MM SORE THROAT 08/26/25 11:30 09/25/25 11:29 Bisacodyl (DulcoLAX) 10 mg DAILY RC 08/17/25 09:00 08/20/25 08:59 DC 08/18/25 07:58 10 MG Calcium Carbonate (Tums 500 Mg Chew Tab) 500 tab QID PRN PO HEARTBURN 08/19/25 12:00 08/20/25 16:32 DC 08/20/25 05:10 1 TAB Calcium Gluconate 1 gm/Sodium Chloride 60 ml @ 200 mls/hr AD PRN IV HYPOCALCEMIA 08/20/25 17:00 09/19/25 16:59 08/27/25 04:26 200 MLS/HR Cefazolin Sodium (Ancef) 2 gm ONCALL IVP 08/19/25 19:30 08/21/25 08:36 DC 08/20/25 16:30 2 GM Cefazolin Sodium (Ancef) 2 gm Q8H IVPB 08/20/25 22:00 08/21/25 14:01 DC 08/21/25 13:45 2 GM Ceftriaxone Sodium (Rocephin 2gm Inj) 2 gm Q24H IVPB 08/14/25 11:30 08/24/25 11:29 DC 08/23/25 12:16 2 GM Chlordiazepoxide HCl (LIBrium 25 MG CAP) 25 mg Q2H PRN PO ALCOHOL WITHDRAWAL PROTOCOL 08/14/25 14:30 08/20/25 16:32 DC 08/16/25 23:38 25 MG Chlordiazepoxide HCl (LIBrium 25 MG CAP) 50 mg Q1H PRN PO ALCOHOL WITHDRAWAL PROTOCOL 08/14/25 14:30 08/20/25 16:32 DC Dexmedetomidine/ Sodium Chloride (PRECEdex 400MCG/ 100ML-NS) 400 mcg PROTOCOL IV 08/20/25 20:30 09/19/25 20:29 08/22/25 00:35 400 MCG Dextrose (D50w) 50 ml AD PRN IV HYPOGLYCEMIA PROTOCOL 08/20/25 17:00 09/19/25 16:59 Dextrose (D50w) 50 ml AD PRN IV HYPOGLYCEMIA PROTOCOL 08/13/25 20:00 08/20/25 22:03 DC Diphenhydramine HCl (BENAdryl INJ) 25 mg ONCE PRN IV ITCHING 08/15/25 23:00 08/17/25 22:59 DC Docusate Sodium (COLace 100MG CAP) 100 mg BID PRN PO CONSTIPATION 08/14/25 11:00 09/13/25 10:59 Dopamine HCl/ Dextrose 250 ml @ 0 mls/hr PROTOCOL IV 08/13/25 16:00 09/12/25 15:59 08/16/25 16:41 3 MLS/HR Epinephrine HCl 10 mg/Sodium Chloride 250 ml @ 14.091 mls/ hr AD PRN IV POST-OP CARDIOVASCULAR ORDERS 08/20/25 17:00 08/21/25 10:49 DC Epinephrine HCl 10 mg/Sodium Chloride 250 ml @ 0 mls/hr AD PRN IV TITRATE 08/20/25 08:00 09/19/25 07:59 08/26/25 16:56 0 MLS/HR Epinephrine HCl 10 mg/Sodium Chloride 250 ml @ 0 mls/hr AD PRN IV TITRATE 08/20/25 09:00 08/20/25 09:03 DC Famotidine (Pepcid 20mg Vial) 20 mg BID IV 08/20/25 21:00 08/22/25 08:20 DC 08/21/25 20:17 20 MG Famotidine (Pepcid 20mg Tab) 20 mg BID PO 08/22/25 09:00 09/21/25 08:59 08/28/25 20:26 20 MG Folic Acid (FOLic ACID 1 MG TABLET) 1 mg DAILY PO 08/15/25 09:00 08/17/25 09:01 DC 08/17/25 07:46 1 MG Furosemide (LASix 20MG VIAL) 20 mg Q12H IV 08/21/25 11:30 08/22/25 14:17 DC 08/22/25 11:53 20 MG Furosemide (LASix 20MG VIAL) 20 mg Q12H IV 08/22/25 21:00 08/23/25 11:37 DC 08/23/25 09:50 20 MG Furosemide (LASix 20MG VIAL) 40 mg Q12H IV 08/22/25 21:00 08/22/25 14:32 DC Furosemide (LASix 40MG VIAL) 40 mg Q12H IV 08/23/25 11:30 09/22/25 11:29 08/28/25 23:57 40 MG Gabapentin (NEURontin 300 MG CAP) 300 mg TID PO 08/23/25 14:00 09/22/25 13:59 08/28/25 20:25 300 MG Glucagon (Glucagon 1mg Kit) 1 mg AD PRN IM HYPOGLYCEMIA PROTOCOL 08/20/25 17:00 09/19/25 16:59 Glucagon (Glucagon 1mg Kit) 1 mg AD PRN IM HYPOGLYCEMIA PROTOCOL 08/13/25 20:00 08/21/25 10:49 DC Heparin Sodium (Porcine) (HEParin 5,000 UNIT VIAL) *calculation based on ACTUAL B... AD PRN IV HEPARIN PROTOCOL 08/13/25 16:30 08/20/25 16:32 DC 08/17/25 04:46 3,175 UNIT Heparin Sodium/ Dextrose 250 ml @ 0 mls/hr PROTOCOL IV 08/21/25 11:30 09/20/25 11:29 08/28/25 15:28 10.54 MLS/HR Heparin Sodium/ Dextrose 250 ml @ 0 mls/hr Q6H IV 08/13/25 16:30 08/20/25 16:32 DC 08/19/25 22:03 11.78 MLS/HR Insulin Glargine (LANtus 100 UNITS/ML 10 ML VIAL) 5 units BID@0730,2100 SQ 08/16/25 21:00 08/17/25 09:31 DC 08/16/25 21:21 5 UNITS Insulin Glargine (LANtus 100 UNITS/ML 10 ML VIAL) 10 units HS SQ 08/13/25 21:00 08/14/25 06:16 DC 08/13/25 20:21 10 UNITS Insulin Glargine (LANtus 100 UNITS/ML 10 ML VIAL) 15 units DAILY SQ 08/23/25 09:00 08/28/25 07:20 DC 08/27/25 08:35 15 UNITS Insulin Glargine (LANtus 100 UNITS/ML 10 ML VIAL) 20 units DAILY 08/14/25 09:00 08/15/25 07:24 DC 08/14/25 08:01 20 UNITS Insulin Glargine (LANtus 100 UNITS/ML 10 ML VIAL) 20 units DAILY 08/28/25 09:00 09/27/25 08:59 Insulin Glargine (LANtus 100 UNITS/ML 10 ML VIAL) 30 units DAILY 08/15/25 09:00 08/16/25 07:19 DC 08/15/25 08:28 30 UNITS Insulin Glargine (LANtus 100 UNITS/ML 10 ML VIAL) 35 units DAILY SQ 08/16/25 09:00 08/19/25 07:35 DC 08/18/25 07:59 35 UNITS Insulin Glargine (LANtus 100 UNITS/ML 10 ML VIAL) 42 units DAILY 08/19/25 09:00 08/20/25 06:22 DC 08/19/25 09:40 42 UNITS Insulin Glargine (LANtus 100 UNITS/ML 10 ML VIAL) 45 units DAILY SQ 08/20/25 09:00 08/20/25 16:32 DC Insulin Human Lispro (HumaLOG LISpro 100 UNIT/ML 3ML) INSULIN SLIDING SCAL... ACHS SQ 08/16/25 21:00 08/17/25 09:31 DC Insulin Human Regular (humuLIN R 100 UNIT/ML 3ML) 3 unit TIDAC SQ 08/27/25 07:30 08/27/25 20:56 DC 08/27/25 16:47 3 UNIT Insulin Human Regular (humuLIN R 100 UNIT/ML 3ML) 5 unit TIDAC SQ 08/14/25 17:00 08/15/25 07:24 DC 08/15/25 07:03 5 UNIT Insulin Human Regular (humuLIN R 100 UNIT/ML 3ML) 6 unit TIDAC SQ 08/28/25 07:30 09/27/25 07:29 Insulin Human Regular (humuLIN R 100 UNIT/ML 3ML) 8 unit TIDAC SQ 08/15/25 07:30 08/15/25 22:46 DC 08/15/25 16:02 8 UNIT Insulin Human Regular (humuLIN R 100 UNIT/ML 3ML) 10 unit TIDAC SQ 08/16/25 07:30 08/17/25 21:12 DC 08/17/25 16:09 10 UNIT Insulin Human Regular (humuLIN R 100 UNIT/ML 3ML) 12 unit TIDAC SQ 08/18/25 07:30 08/18/25 20:19 DC 08/18/25 16:39 12 UNIT Insulin Human Regular (humuLIN R 100 UNIT/ML 3ML) 16 unit TIDAC SQ 08/19/25 07:30 08/20/25 06:22 DC 08/19/25 16:47 16 UNIT Insulin Human Regular (humuLIN R 100 UNIT/ML 3ML) 17 unit TIDAC SQ 08/20/25 07:30 08/20/25 16:32 DC Insulin Human Regular (humuLIN R 100 UNIT/ML 3ML) INSULIN SLIDING SCAL... ACHS SQ 08/17/25 16:30 08/20/25 16:32 DC 08/19/25 21:31 8 UNIT Insulin Human Regular (humuLIN R 100 UNIT/ML 3ML) INSULIN SLIDING SCAL... ACHS SQ 08/22/25 11:30 08/22/25 21:32 DC 08/22/25 20:58 3 UNIT Insulin Human Regular (humuLIN R 100 UNIT/ML 3ML) INSULIN SLIDING SCAL... ACHS SQ 08/23/25 07:30 09/22/25 07:29 08/28/25 20:27 6 UNIT Insulin Human Regular (humuLIN R 100 UNIT/ML 3ML) INSULIN SLIDING SCAL... ACHS SQ 08/13/25 16:30 08/16/25 20:46 DC 08/16/25 20:01 4 UNIT Insulin Human Regular 100 unit/ Sodium Chloride 100 ml @ 0 mls/hr AD IV 08/20/25 17:00 08/22/25 16:59 DC 08/21/25 15:00 5 MLS/HR Iron Sucrose (VenoFER) 200 mg DAILY IV 08/21/25 13:00 08/23/25 09:43 DC 08/22/25 11:53 200 MG Iron Sucrose (VenoFER) 200 mg DAILY IV 08/23/25 09:00 08/26/25 08:57 DC 08/25/25 09:25 200 MG Lidocaine (Lidocaine Patch 4%) 1 each DAILY TP 08/19/25 09:00 09/18/25 08:59 08/28/25 09:14 1 EACH Lidocaine HCl/ Dextrose 250 ml @ 0 mls/hr PROTOCOL IV 08/21/25 00:00 09/20/25 00:00 Magnesium Sulfate 50 ml @ 12.5 mls/hr AD PRN IV MAG LEVEL LESS THAN 2.0 08/20/25 17:00 09/19/25 16:59 08/29/25 06:33 12.5 MLS/HR Magnesium Sulfate 50 ml @ 0 mls/hr PROTOCOL IV 08/13/25 16:30 08/21/25 10:49 DC 08/21/25 05:58 25 MLS/HR Midodrine (PROAMatine 5 MG TABLET) 5 mg Q6H6 PO 08/26/25 16:00 09/25/25 15:59 08/29/25 05:39 5 MG Morphine Sulfate (morPHINE 2MG SYG) 0.5 mg Q2H PRN IV MODERATE PAIN (4-6) 08/20/25 17:00 08/20/25 18:07 DC Morphine Sulfate (morPHINE 2MG SYG) 2 mg Q6H PRN IVP SEVERE PAIN (7-10) 08/19/25 18:00 08/20/25 16:32 DC 08/19/25 17:50 2 MG Morphine Sulfate (morPHINE 4MG SYG) 0.5 mg Q2H PRN IV MODERATE PAIN (4-6) 08/20/25 18:30 08/21/25 16:59 DC Morphine Sulfate (morPHINE 4MG SYG) 1 mg Q2H PRN IV SEVERE PAIN (7-10) 08/20/25 17:00 08/21/25 16:59 DC Morphine Sulfate (morPHINE 4MG SYG) 2 mg Q6H PRN IVP SEVERE PAIN (7-10) 08/14/25 09:30 08/19/25 12:29 DC 08/19/25 12:22 2 MG Multivitamins Therapeutic (Multivitamin Tablet) 1 tab DAILY PO 08/15/25 09:00 09/14/25 08:59 08/28/25 09:13 1 TAB Nitroglycerin/ Dextrose 0 ml @ 0 mls/hr AD IV 08/20/25 17:00 08/23/25 16:59 DC Nitroglycerin/ Dextrose 250 ml @ 0 mls/hr PROTOCOL IV 08/20/25 03:30 08/20/25 16:32 DC 08/20/25 03:12 1.5 MLS/HR Norepinephrine 250 ml @ 0 mls/hr PROTOCOL IV 08/13/25 15:30 08/20/25 08:31 DC Norepinephrine Bitartrate 250 ml @ 0 mls/hr AD PRN IV TITRATE 08/20/25 08:00 09/19/25 07:59 08/29/25 03:01 6.18 MLS/HR Norepinephrine Bitartrate 250 ml @ 0 mls/hr AD PRN IV TITRATE 08/20/25 09:00 08/20/25 09:03 DC Norepinephrine Bitartrate 8 mg/ Dextrose 250 ml @ 0 mls/hr AD PRN IV POST-OP CARDIOVASCULAR ORDERS 08/20/25 17:00 08/21/25 10:49 DC Ondansetron HCl (zoFRAN 4MG INJ) 4 mg Q4H PRN IV NAUSEA 08/14/25 14:30 08/20/25 16:32 DC 08/14/25 14:17 4 MG Ondansetron HCl (zoFRAN 4MG INJ) 4 mg Q6H PRN IV NAUSEA/VOMITING 08/20/25 17:00 09/19/25 16:59 08/28/25 12:48 4 MG Ondansetron HCl (zoFRAN 4MG INJ) 4 mg Q6H PRN IVP NAUSEA/VOMITING 08/13/25 16:30 08/14/25 14:08 DC Pantoprazole Sodium (PROTonix 40MG INJ) 40 mg Q12H IVP 08/17/25 16:30 08/20/25 16:32 DC 08/20/25 03:53 40 MG Pantoprazole Sodium (PROTonix 40MG INJ) 40 mg Q24H IVP 08/13/25 16:30 08/17/25 11:10 DC 08/16/25 16:07 40 MG Pharmacy Profile Note (Pharmacy Communication) 1 each PROTOCOL PRN MISC ETOH Withdrawal Score changes 08/14/25 14:30 08/14/25 14:08 DC Phenylephrine HCl 100 mg/Sodium Chloride 250 ml @ 0 mls/hr PROTOCOL IV 08/26/25 20:30 09/25/25 20:29 Polyethylene Glycol (MIRalax 3350 17 GM POWD.[email or web address]) 17 gm DAILY PO 08/15/25 09:00 09/14/25 08:59 08/28/25 09:14 17 GM Potassium Phosphate 250 ml @ 42 mls/hr AD PRN IV LOW PHOS LEVEL 08/20/25 17:00 09/19/25 16:59 Potassium Chloride 100 ml @ 100 mls/hr AD PRN IV HYPOKALEMIA 08/20/25 17:00 09/19/25 16:59 08/29/25 06:34 100 MLS/HR Potassium Chloride 100 ml @ 100 mls/hr AD PRN IV POTASSIUM PROTOCOL 08/13/25 16:30 08/20/25 16:32 DC 08/16/25 16:07 100 MLS/HR Potassium Chloride (K-Dur/Klor-Con 20meq) 20 meq AD PRN PO POTASSIUM PROTOCOL 08/13/25 16:30 08/20/25 16:32 DC 08/15/25 08:23 20 MEQ Potassium Chloride (KCl 10% Elixir 20meq/15ml) 20 meq AD PRN PO POTASSIUM PROTOCOL 08/13/25 16:30 08/20/25 16:32 DC Promethazine HCl (Phenergan) 25 mg Q6H PRN PO NAUSEA 08/14/25 14:30 08/20/25 16:32 DC Propofol 100 ml @ 0 mls/hr AD PRN IV SEDATION 08/20/25 17:00 08/24/25 17:00 DC Sodium Bicarbonate 25 meq/Dextrose 1,000 ml @ 0 mls/hr Q0M IV 08/14/25 00:30 09/13/25 00:29 08/28/25 16:29 14 MLS/HR Sodium Bicarbonate 25 meq/Dextrose 1,000 ml @ 0 mls/hr Q0M IVP 08/14/25 00:30 08/14/25 00:15 DC Sodium Bicarbonate (Sodium Bicarb 50meq 50ml Vial) 50 meq AD PRN IV OTHER[SEE DOSING INSTRUCTIONS] 08/20/25 17:00 08/23/25 16:59 DC 08/21/25 01:19 50 MEQ Sodium Chloride 500 ml @ 500 mls/hr Q1H IV 08/20/25 00:33 08/20/25 03:16 DC 08/20/25 00:53 500 MLS/HR Sodium Chloride 500 ml @ 0 mls/hr AD IV 08/20/25 17:00 09/19/25 16:59 Sodium Chloride 1,000 ml @ 10 mls/hr ONCE IV 08/20/25 17:00 08/21/25 16:59 DC 08/20/25 22:31 10 MLS/HR Sodium Chloride (NS Flush 10ml) 10 ml Q8H PRN IVP IV LINE FLUSH 08/20/25 17:00 09/19/25 16:59 Thiamine HCl (Vitamin B-1) 300 mg DAILY IV 08/15/25 09:00 08/17/25 09:01 DC 08/17/25 07:46 300 MG Ticagrelor (BRILinta) 90 mg BID PO 08/14/25 09:00 08/14/25 21:19 DC 08/14/25 20:09 90 MG Tramadol HCl (UltRAM) 25 mg Q6H PRN PO MODERATE PAIN (4-6) 08/20/25 17:00 08/25/25 16:59 DC Tramadol HCl (UltRAM) 25 mg Q6H PRN PO MODERATE PAIN (4-6) 08/26/25 11:00 08/31/25 10:59 08/27/25 03:12 25 MG Tramadol HCl (UltRAM) 50 mg Q6H PRN PO SEVERE PAIN (7-10) 08/20/25 17:00 08/25/25 16:59 DC 08/25/25 09:24 50 MG Tramadol HCl (UltRAM) 50 mg Q6H PRN PO SEVERE PAIN (7-10) 08/26/25 11:00 08/31/25 10:59 08/29/25 05:39 50 MG Vancomycin HCl 250 ml @ 125 mls/hr Q12H IV 08/18/25 09:00 08/19/25 20:54 DC 08/19/25 09:39 125 MLS/HR Vancomycin HCl 250 ml @ 125 mls/hr Q12H IV 08/24/25 23:00 08/26/25 21:47 DC 08/26/25 11:47 125 MLS/HR Vancomycin HCl 250 ml @ 125 mls/hr Q8H IV 08/19/25 21:30 08/21/25 00:23 DC 08/20/25 22:26 125 MLS/HR Vancomycin HCl 250 ml @ 125 mls/hr Q8H IV 08/21/25 06:30 08/21/25 08:35 DC 08/21/25 08:15 125 MLS/HR Vancomycin HCl 250 ml @ 125 mls/hr Q8H IV 08/21/25 08:00 08/21/25 06:28 DC Vancomycin HCl 250 ml @ 125 mls/hr Q8H IV 08/21/25 16:30 08/24/25 16:54 DC 08/24/25 09:32 125 MLS/HR Vancomycin HCl (Vancomycin Protocol) 1 each AD IV 08/17/25 22:00 08/26/25 21:47 DC DIAGNOSTICS / RADIOLOGY: [ ] ASSESSMENT: Cardiogenic shock with lactic acidosis, POA NSTEMI/ACS, POA Complete heart block, POA History of multivessel coronary artery disease, POA History of cocaine use disorder, POA Severe nonketotic hyperglycemia, POA History of to poorly controlled type 2 diabetes mellitus, POA Lactic acidosis, POA History of anemia, POA History of gastritis, POA History of hypertension, POA History of PTSD/anxiety, POA Obesity, POA Medical noncompliance, POA PLAN: patient is seen and examined at bedside, case discussed with the RN, no acute events overnight, patient remains admitted to the ICU, the time of my visit, awake, following command, NPO, she is scheduled to be taken to the operating room today for removal of Impella support by cardio thoracic surgeons, we will continue to follow input and recommendation. Limited 2D echo performed yesterday shows left ventricular cavity size is normal, Impella device measuring 5.6 cm into LV. Left ventricular ejection fraction 55-60%, no pericardial effusion. NEURO: MINIMIZE CENTRAL ACTING MEDICATIONS POSSIBLE. FALL PRECAUTIONS. WELL LIGHTED ROOM THROUGH THE DAY AND MINIMIZE INTERRUPTIONS THROUGH THE NIGHT TO PREVENT ACUTE DELIRIUM. PULMONARY: SUPPLEMENTAL 02 NEEDED BIPAP NECESSARY, FOR RESPIRATORY DISTRESS TITRATE FIO2 TO KEEP SPO2 > OR = 90% DUONEBS AND CPT NEEDED IS HOURLY WHILE AWAKE FOR PULMONARY HYGIENE PRN OUT OF BED TO CHAIR TOLERATED MAINTAIN ASPIRATION PRECAUTIONS AT ALL TIMES CARDIOVASCULAR: FOLLOW HEMODYNAMICS. VITAL SIGNS PER FACILITY PROTOCOL GI & NUTRITION: CONTINUE NUTRITIONAL SUPPORT ASPIRATIONS PRECAUTIONS PROKINETIC AGENTS AND LAXATIVES NEEDED KIDNEYS & ELECTROLYTES: STRICT MONITORING OF INTAKE AND OUTPUT DAILY WEIGHTS AVOID NEPHROTOXIC AGENTS MONITOR ELECTROLYTES AND REPLACE NEEDED GOAL URINE OUTPUT OF 30ML/HR OR 0.5ML/KG/HR MEDICATIONS TO BE DOSED ACCORDING TO RENAL FUNCTION. AVOID CONTRAST IF POSSIBLE ENDOCRINE: MAINTAIN BLOOD GLUCOSE BETWEEN 100-180 AT ALL TIMES. INSULIN SLIDING SCALE FOR BLOOD GLUCOSE MANAGEMENT HYPOGLYCEMIA AND HYPERGLYCEMIA PROTOCOL IN PLACE INFECTIOUS DISEASE: TREND TEMPERATURE, WBC AND PROCALCITONIN LEVEL FOLLOW CULTURES, DEESCALATE ANTIBIOTICS SOON POSSIBLE. PANCULTURE IF NEW ONSET FEVER HEMATOLOGY & COAGULATION: MONITOR H&H. KEEP HGB > 7 TRANSFUSE 1 UNIT OF PRBC FOR HGB < 7 TRANSFUSE 1 PACK OF PLATELETS OF PLATELETS < 20, 000 WATCH FOR ANY SIGNS AND SYMPTOMS OF BLEEDING SKIN: PRESSURE ULCER PREVENTION PER FACILITY PROTOCOL SPECIALTY MATTRESS NEEDED ORTHO/REHAB CONTINUE PT/OT PRN: MEDICATIONS TYLENOL 650 MG PO EVERY 4 HRS FOR FEVER ZOFRAN 4 MG IV EVERY 6 HRS FOR N/V HYDRALAZINE 5 MG IV EVERY 4 HRS SYSTOLIC PRESSURE > 160 BOWEL REGIMENT: LACTULOSE 20 GM PO BID PRN CONSTIPATION SUPPORTIVE MEASURES: CONTINUE GI AND DVT PROPHYLAXIS DISPOSITION: PENDING IMPROVEMENT IN CLINICAL CONDITION ALL QUESTIONS ANSWERED TIME SPENT: > 35 MIN GEE MARTIN MD Aug 29, 2025 08:54
[2025-08-29] MEDS ORDERED: HEParin-NS 1,000 UNIT/500 ML 500 ML IV ONE (08:56)
--- NOTE | 2025-08-29 08:56 | PN ---
[facility] PROGRESS NOTE Date Patient Seen: Aug 29, 2025 Time of Visit: 08:56 Supervising Physician: Lina Morris MD Consulting Physician: Hospitalist Outpatient Specialists: [ ] Inpatient Consults: Dr Chris ZARATE PROBLEM LIST: CABG x3 vessels 08/20 Cardiogenic shock SCAI stage D status post cardiac catheterization with multivessel disease, Impella placement Complete heart block, status post transvenous temporary pacemaker placement Acute hypoxic respiratory failure, NSTEMI, POA Bacteremia + Staph Cohni urealyticum DM type 2, with hyperglycemia, HGB A1c of 10.7 Cocaine abuse Tobacco use, current smoker History of CVA INTERVAL HISTORY: Patient is awake alert and oriented x3. Continues with the Impella support and plans for removal today in the LR per CV. No major overnight events. Blood pressure 127/69 heart rate in the 70s respiratory rate of 13 saturating 98% on 2 L via nasal cannula and afebrile. H&H is 9.8/31.2 platelet count of 121 K. creatinine of 0.6 and GFR 104. Magnesium of 1.40 covered per protocol. Plan: Follow CT surgeon recs Continues on Lasix, Follow I&Os Daily chest x-ray Impella support, plans for removal tomorrow per CV Continues with heparin drip Monitor for bleeding ABX: Completed 10 days of Rocephin and 9 days of Vancomycin. Ancef completed x 3. Lines/tubes: Jackson, Impella, chest tube, Sara, FC O2 on 3L Total critical care time spent 35 minutes, this excludes any procedures performed or any time spent in educational or teaching. REVIEW OF SYSTEMS: 12 point ROS reviewed with patient. Pertinent positives mentioned above. Otherwise negative. PHYSICAL EXAM: GENERAL: alert, weak, awake oriented x 3 HEENT: EOMI, Sclera non icteric, moist mucosa NECK: Supple, no JVD, trachea midline LUNGS: Clear breath sounds bilaterally. No wheezes HEART: Normal S1 and S2, without murmurs ABD: Abdomen soft, nontender. Bowel sounds present EXT: No clubbing cyanosis or edema. Impella to rt groin. NEURO: Alert and oriented to person, follows commands Vital Signs (last 8hr) Date Time Temp Pulse Resp B/P (MAP) Pulse Ox O2 Delivery O2 Flow Rate FiO2 08/29/25 06:59 73 20 N/Cannula Low lpm 2.0 28 08/29/25 06:45 72 14 128/72 (90) 98 08/29/25 06:30 73 18 122/65 (84) 96 08/29/25 06:15 71 12 119/65 (83) 100 37/21 (26) 08/29/25 06:00 70 14 102/63 (76) 98 41/29 (33) 08/29/25 05:45 74 14 105/60 (75) 96 38/17 (24) 08/29/25 05:30 71 19 120/67 (84) 99 35/13 (20) 08/29/25 05:15 73 20 121/78 (92) 99 34/9 (17) 08/29/25 05:00 71 21 123/69 (87) 97 40/12 (21) 08/29/25 04:45 73 17 142/78 (99) 98 53/16 (28) 08/29/25 04:30 69 12 118/70 (86) 96 35/8 (17) 08/29/25 03:15 68 11 107/62 (77) 99 08/29/25 03:01 94/65 08/29/25 03:00 69 12 111/64 (80) 99 08/29/25 02:54 64 20 N/Cannula Low lpm 2.0 28 08/29/25 02:45 70 14 105/62 (76) 99 08/29/25 02:30 70 13 94/65 (75) 99 08/29/25 02:15 72 12 103/61 (75) 98 08/29/25 02:00 72 15 111/65 (80) 98 08/29/25 01:45 75 14 126/74 (91) 99 08/29/25 01:30 71 17 108/60 (76) 100 08/29/25 01:15 70 12 92/54 (67) 99 08/29/25 01:00 71 13 110/63 (79) 99 LABS: Hematology Labs: Test 08/29/25 03:48 Range/Units White Blood Count 6.6 4.8-10.8 K/uL Red Blood Count 3.21 L 4.00-5.50 MIL/uL Hemoglobin 9.8 L 12.0-16.0 g/dL Hematocrit 31.2 L 36-48 % Mean Corpuscular Volume 97.2 79-99 fL Mean Corpuscular Hemoglobin 30.5 27.0-33.0 pg Mean Corpuscular Hemoglobin Concent 31.4 L 32.0-36.0 g/dL Red Cell Distribution Width 19.5 H 11.0-15.5 % Platelet Count 121 L 130-400 K/uL Mean Platelet Volume 10.4 7.5-10.5 fL Immature Granulocyte % (Auto) 2.3 H 0-1 % Neutrophils (%) (Auto) 63.8 40.0-77.0 % Lymphocytes (%) (Auto) 19.5 L 21.0-51.0 % Monocytes (%) (Auto) 9.3 3.0-13.0 % Eosinophils (%) (Auto) 4.9 0.0-8.0 % Basophils (%) (Auto) 0.2 0.0-5.0 % Neutrophils # (Auto) 4.2 1.8-7.7 K/uL Lymphocytes # (Auto) 1.3 1.0-4.8 K/uL Monocytes # (Auto) 0.6 0.1-1.0 K/uL Eosinophils # (Auto) 0.32 0.00-0.70 K/uL Basophils # (Auto) 0.01 0.00-0.20 K/uL Absolute Immature Granulocyte (auto 0.15 0-1 K/uL Nucleated Red Blood Cells 0.0 0.0-0.19 % Chemistry Labs: Test 08/29/25 06:41 08/29/25 03:48 08/28/25 08:31 Range/Units Whole Blood Glucose 181 H 70-110 MG/DL Sodium Level 140 136-145 mmol/L Potassium Level 4.0 3.5-5.1 mmol/L Chloride Level 101 101-111 mmol/L Carbon Dioxide Level 36 H 21-32 mmol/L Blood Urea Nitrogen 12 7-18 mg/dL Creatinine 0.6 0.5-1.0 mg/dL Glomerular Filtration Rate Calc 104 >90 mL/min Random Glucose 230 H 70-105 mg/dL Total Calcium 8.1 L 8.5-10.1 mg/dL Magnesium Level 1.40 L 1.80-2.40 mg/dL Total Bilirubin 0.5 0.2-1.0 mg/dL Aspartate Amino Transf (AST/SGOT) 44 H 10-37 U/L Alanine Aminotransferase (ALT/SGPT) 32 12-78 U/L Alkaline Phosphatase 268 H 50-136 U/L Total Protein 6.2 6.0-8.3 g/dL Albumin 1.8 L 3.5-5.0 g/dL Coagulation Labs: Test 08/28/25 08:31 Range/Units Prothrombin Time 11.8 H 9.6-11.6 SEC Prothromb Time International Ratio 1.13 0.85-1.15 Activated Partial Thromboplast Time 55.4 H 26.3-35.5 SEC DIAGNOSTICS / RADIOLOGY RESULTS: [ ] [facility] [address] [place] [address] IMAGING REPORT Signed PATIENT: LUL ARTHUR MR#: [id number] : 1965 SEX: F AGE: 60 LOCATION: [facility] ORDER 2300 STATUS: ADM IN REPORT#: [id number] SERVICE 0600 REASON: devices post cabg ORDERING PHYSICIAN: OLIVER KONG PROCEDURE: CXR1VW - CHEST 1VW CHEST 1VW REASON: devices post cabg COMPARISON: Prior study from 08/28/2025 is available. FINDINGS: Single view of the chest was obtained. There is cardiomegaly with median sternotomy with left atrial clipping with cardiac and aspiration procedure. The right-sided [place]-Guillaume catheter and left ventricular assisted device unchanged from prior study. There is a right-sided PIC catheter with tip in the right subclavian vein. There is diffuse interstitial pulmonary edema. Mediastinum and bony thorax appear unremarkable. IMPRESSION: 1. Unchanged from prior radiograph with diffuse interstitial pulmonary edema 2. Cardiomegaly with median sternotomy with left atrial clipping and cardiac revascularization procedure. 3. Support lines are in satisfactory position. DICTATED BY: NARENDRA LILLY MD DATE: 08/29/25 1010 ELECTRONICALLY SIGNED BY: NARENDRA LILLY MD DATE: 08/29/25 1016 PLAN NEURO: Minimize central acting medications as possible. Fall Precautions. Well lighted room through the day and minimize interruptions through the night to prevent acute delirium. PULMONARY: Supplemental 02 as needed Titrate Fio2 to keep Spo2 > or = 90% DuoNebs and CPT as needed IS hourly while awake for pulmonary hygiene CARDIOVASCULAR: Follow hemodynamics. Titrate vasopressor to keep MAP >65 or systolic blood pressure >95mmHg GI & NUTRITION: Continue nutritional support Aspirations precautions Prokinetic agents and laxatives as needed Clear liquid diet as tolerated KIDNEYS & ELECTROLYTES: Strict monitoring of intake and output Daily weights Avoid nephrotoxic agents Monitor electrolytes and replace as needed Goal urine output of 30mL/hr or 0.5mL/kg/hr ENDOCRINE: Maintain blood glucose between 100-180 at all times. Insulin sliding scale for blood glucose management INFECTIOUS DISEASE: Trend temperature. Astudillo-culture if febrile. HEMATOLOGY & COAGULATION: Monitor H&H. Keep Hgb > 7 Transfuse 1 unit of PRBC for Hgb < 7 Transfuse 1 pack of platelets of platelets < 20, 000 Watch for any signs and symptoms of bleeding SKIN: Pressure ulcer prevention per facility protocol Rehab: PT/OT Prophylaxis: GI: PPI DVT: SCDs patient on heparin drip Code Status: Full Resuscitation Disposition: ICU Critical care time This patient required multiple bedside visits to manage the patient, review blood gases, coordinate with respiratory, nurses, review radiology exams, talk to the family members and discuss advanced directives. I personally spent 35 minutes of critical care time in treatment of this patient. This includes patient management, time at bedside, time reviewing tests, labs, appropriate images and studies, documentation, and patient care coordination. This time excludes separately billable procedures. ATTESTATION BY PHYSICIAN I attest that I reviewed and discussed the case with the Physician Qualified Craft Worker Electrician as well as agree with the Physician Qualified Craft Worker Electrician's findings, plans of care, and documentation above. James Joshi MD, [facility] Aug 29, 2025 08:56
--- NOTE | 2025-08-29 10:04 | NUR ---
PT CARE Taken by bed, monitored, to OR for planned impella removal. Pt accompanied by OR staff.
[2025-08-29] MEDS ORDERED: MIDAZOLAM HCL 1 MG/ML 2ML VIAL ONE ×2 (10:06→10:46)
[2025-08-29] MEDS ORDERED: LIDOCAINE PF 100MG/5ML (2%) SYRINGE 5ML ONE (10:15)
--- NOTE | 2025-08-29 10:16 | HMCIMG ---
CHEST 1VW REASON: devices post cabg COMPARISON: Prior study from 08/28/2025 is available. FINDINGS: Single view of the chest was obtained. There is cardiomegaly with median sternotomy with left atrial clipping with cardiac and aspiration procedure. The right-sided [place]-Guillaume catheter and left ventricular assisted device unchanged from prior study. There is a right-sided PIC catheter with tip in the right subclavian vein. There is diffuse interstitial pulmonary edema. Mediastinum and bony thorax appear unremarkable. IMPRESSION: 1. Unchanged from prior radiograph with diffuse interstitial pulmonary edema 2. Cardiomegaly with median sternotomy with left atrial clipping and cardiac revascularization procedure. 3. Support lines are in satisfactory position.
--- NOTE | 2025-08-29 11:45 | NUR ---
STATUS Returned to room post procedure - pt intubated/sedated without sedation infusing. VS as recorded - vent settings as recorded. Pt on levophed @0.05mcg/kg/min.
--- NOTE | 2025-08-29 12:04 | OP ---
DATE OF PROCEDURE: 08/29/2025 TIME: 11:00 a.m. PREOPERATIVE DIAGNOSIS: Impella CP via the right common femoral artery due to cardiogenic shock. POSTOPERATIVE DIAGNOSIS: Impella CP via the right common femoral artery due to cardiogenic shock. PROCEDURES PERFORMED: 1. Removal of CP Impella from the right common femoral artery. 2. Repair of common femoral artery with patch angioplasty. SURGEON: Brisa Kramer MD ENVIRONMENTAL ISSUES INSTRUCTOR: Renata Price. DESCRIPTION OF PROCEDURE: Following anesthesia induction with brief loss of pulse due to bradycardia and chest compressions for about 20 seconds where the patient recovered and this was a brief episode of severe bradycardia with loss of pulse. The anesthesiology team was able to recover the patient rapidly with administration of epinephrine and the patient fully recovered, so as a result, we did not think that this was anything related to the cardiac function. In fact, the cardiac anesthesia team performed a transesophageal echocardiogram that showed good cardiac function of the heart with good positioning of the Impella. As a result, we decided to proceed with removing the Impella. We made a 5 cm incision over the right groin. The common femoral artery was identified. Proximal and distal control was obtained. 5000 units of heparin was given. Subsequently, the Impella was turned off and it was removed from the leg along with the sheath. After that, the patch was brought into the field and a 6-0 Prolene suture was used to suture the patch in place in a continuous fashion and repair the common femoral artery in that way. After that, all the clamps were released. There was good blood flow to the distal femoral artery as confirmed with Doppler. Hemostasis was obtained. The wound was then closed with #1 Vicryl and ara. It was present throughout the entire operation. The patient tolerated the operation well and transferred to the intensive care unit in stable condition. TID: [id number] RECEIPT: [id number]
--- NOTE | 2025-08-29 13:44 | HMCIMG ---
EXAM: CHEST RADIOGRAPH, SINGLE VIEW Technique: A single frontal view of the chest was obtained. Single-projection technique limits evaluation of small pneumothoraces, small pleural effusions, and subtle parenchymal abnormalities. Clinical Information: Postoperative respiratory failure; indwelling lines and devices. Comparison: Chest radiograph, single view, 08/29 at 08:58 EDT. Findings: The lungs show interval improvement in previously noted bilateral lower-lung hazy opacities, with minimal residual basilar atelectasis. A new small left pleural effusion is present. No pneumothorax is identified on this single projection. The cardiac silhouette is mildly enlarged and appears increased compared with the prior examination. There is pulmonary vascular congestion with early interstitial and mild alveolar pulmonary edema now evident. Median sternotomy wires and mediastinal surgical clips are in place. A right internal jugular [place]???Guillaume catheter is present with the tip projecting over the expected location of the main pulmonary artery, unchanged. An Impella left ventricular assist device is present with the inflow portion projecting over the left ventricular cavity and the outflow portion over the ascending aorta; no radiographic complication is identified. No acute or aggressive osseous abnormality is identified. Impression: * Interval improvement in prior diffuse basal haziness with minimal residual basilar atelectasis. * New small left pleural effusion. * Increasing cardiomegaly with pulmonary vascular congestion and new early interstitial and mild alveolar pulmonary edema, compatible with evolving congestive heart failure in the appropriate clinical setting. * Postsurgical changes of median sternotomy. Right internal jugular [place]???Guillaume catheter and Impella device in expected positions without radiographic complication. /[place]
[2025-08-29 13:47] LABS: ABG BASE EXCESS 3.5 mmol/L (-2.0-3.0); ABG HCO3 26.0 mmol/L (21.0-28.0); ABG OXYGEN SATURATION 99.5 % (94.0-98.0); ABG PCO2 32 mmHg (32-45); ABG PH 7.531 (7.350-7.450); CARBON MONOXIDE 0.6 % (0.5-1.5); DEVICE COMMENT LR SHERI RN; PO2, ARTERIAL BG 360.4 mmHg (83.0-108.0); TEMPERATURE, CELSIUS BG 37.0 CELSIUS (35.5-37.0); VENT MODE, BG SIMV (ROOM AIR)
--- NOTE | 2025-08-29 14:17 | NUR ---
STATUS Rhythm change noted/documented with 12 lead EKG. Call placed to cardio correspondence specialist - - pending return call. In the meantime, IV levophed up titrated for effect and pacemaker rate at 100bpm. VS/hemodynamics as recorded.
--- NOTE | 2025-08-29 15:15 | NUR ---
CARDIO Spoke to by phone - updated on pt's rhythm change. TCP pads applied as ordered. Temporary pacemaker settings: 60bpm, 10V stim, 1mv sensing.
[2025-08-30] VITALS (101 sets, daily range): BP systolic 58–180; BP diastolic 35–122; PULSE 65–83; RESP 9–73; TEMP 94.3–99.2; O2SAT 98–100
[2025-08-30 02:26] LABS: NUCLEATED RED BLOOD CELLS 0.0 % (0.0-0.19); PLATELET COUNT (AUTO) 132.0 K/uL (130-400); RED BLOOD CELL COUNT(AUTO) 2.93 MIL/uL (4.00-5.50); RED CELL DISTRIBUTION WIDTH 18.9 % (11.0-15.5); WHITE BLOOD COUNT (AUTO) 7.6 K/uL (4.8-10.8)
[2025-08-30 02:42] LABS: ASPARTATE AMINOTRANSFERASE 30.0 U/L (10-37); CREATININE 0.6 mg/dL (0.5-1.0); GLOMERULAR FILTR. RATE CALC 104.0 mL/min (>90); GLUCOSE,RANDOM 214.0 mg/dL (70-105); PHOSPHORUS 3.4 mg/dL (2.5-4.9); SODIUM SERUM 139.0 mmol/L (136-145); TOTAL PROTEIN, SERUM 6.5 g/dL (6.0-8.3); UREA NITROGEN, BLOOD 10.0 mg/dL (7-18)
--- NOTE | 2025-08-30 07:58 | EKG ---
[facility] Test Date: 2025-08-29 Test Time: 14:26:48 Pat Name: LUL ARTHUR Department: [facility] Room: 209 1 Gender: F [employer] League [employer] Player: LORI : 1965 Requested By: SOO BARTHOLOMEW Order Number: [id number] Reading MD: Bela Sanches Measurements Intervals [place] Rate: 70 P: 0 MI: 88 QRS: 0 QRSD: 12 T: 174 QT: 254 QTc: 274 Interpretive Statements Sinus rhythm with short MI with occasional and consecutive premature ventricular complexes Indeterminate axis Pulmonary disease pattern Nonspecific ST and T wave abnormality Compared to ECG 08/26/2025 19:36:43 Ventricular premature complex(es) now present Short MI interval now present Indeterminate axis now present ST (T wave) deviation now present Uncertain supraventricular rhythm no longer present Left bundle-branch block no longer present Electronically Signed On 08-30-2025 16:35:57 CDT by Bela Sanches Please click the below link to view image of tracing.
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
[2025-08-30] MEDS: ZOSYN 3.375GM +NS 50ML IV SCH (10:12)
--- NOTE | 2025-08-30 10:18 | PN ---
[facility] PROGRESS NOTE Date of Service: Aug 30, 2025 Time of Service: 10:16 SUBJECTIVE: This is a 60-year-old female with underlying history of obesity, coronary artery disease, poorly controlled type 2 diabetes mellitus, history of anemia, history of cocaine use, tobacco use disorder, history of CVA in 2008, who presented to the ER for further evaluation of severe substernal chest pain and shortness of breadth. Patient reports having history of cocaine use with last use of cocaine yesterday. She reports having severe substernal chest pain that started today in it has been associated with dizziness, and generalized malaise. Pain is 10/1 0 in severity. Patient denies any syncope or fall. She has been having lightheadedness with ambulation. She has not been able to follow up with Cardiology as outpatient. She has a previous history of abnormal CT coronary angiography when she was hospitalized in 04/2025 and she was treated medically. With regards to type 2 diabetes mellitus, she reports being on metformin as ou tpatient. On presentation to the hospital, patient was noted to be hypotensive with blood pressure of 80/60 with heart rate of 40 with EKG showing complete heart block. [place] [address], hemoglobin 12.4, platelet count of 368214. BMP showed sodium of 133, potassium 4.8, chloride of 99, BUN of 21, creatinine 1.0, blood glucose of 403, [place] [address]. Chest x-ray showed no acute infiltrates. Patient will be admitted for further management of cardiogenic shock, NSTEMI, complete heart block with history of poorly controlled type 2 diabetes mellitus. Patient will be emergently taken to the drop crew laborer for cardiac catheterization/ PCI and tentative plan for MCS support. Patient will be admitted to intensive care unit and she remains critically ill. 08/14 patient remains critically ill requiring Impella and dopamine support. UDS has demonstrated benzos and cocaine 08/15 patient remains on Impella 08/16 patient appears to be resting comfortably in bed. She remains on Impella and dopamine support. She reports she would like to be bathed and wants her hair combed significant and she is feeling better 08/17 patient is on GI soft diet tolerating well. She remains on Impella support 08/18 patient is resting comfortably in bed. She remains on Impella. Tolerating oral intake. 08/19 hemoglobin dropped to 6.5 from 7.0-7.5 yesterday. I agree with transfusing 1 unit PRBC. Patient remains on Impella. Patient is resting comfortably in bed. 08/20 patient is resting comfortably in bed. She remains on Impella support pending recovery for CABG. 08/21 patient underwent CABG x3 yesterday, no complications reported patient remains on Impella the patient is on norepinephrine, amiodarone, dopamine, insulin drip 08/22 postop day 2. From CABG x3. Patient does awaken to verbal stimulation and states she has some chest pain and slight shortness for breath she feels the pain as incisional from her open heart procedure. He is on p.o. amiodarone and being weaned off norepinephrine. 08/23 postop day 3 from CABG x3. Patient is in bed visiting with her son at the bedside. She states she has no shortness for breath, she does have some incisional chest discomfort, no nausea or vomiting or diarrhea. She is off nor epinephrine drip and remains with the Impella assist. 08/24 patient is seen and examined at bedside, discussed with the RN, no acute events overnight, remains with the Impella support, postoperative day four from CABG x3. She is awake, following commands. Off vasopressors. Remains on heparin drip and sodium bicarbonate drip. Continue to follow critical Care and Cardiothoracic input and recommendation. 08/25 PATIENT IS SEEN AND EXAMINED AT BEDSIDE, DISCUSSED WITH THE RN, NO ACUTE EVENTS OVERNIGHT, PATIENT FOLLOWING COMMANDS, SHE REMAINS WITH THE IMPELLA SUPPORT, CHEST TUBE IN PLACE, POSTOPERATIVE DAY FIVE, STATUS POST CABG. CU RRENTLY OFF PRESSORS, ON HEPARIN DRIP. CONTINUE TO FOLLOW CRITICAL CARE AND CARDIOTHORACIC INPUT AND RECOMMENDATIONS. POSSIBLE REMOVAL OF IMPELLA SUPPORT TODAY. 08/26 patient is seen and examined at bedside, discussed with the RN, no acute events overnight, remains with the Impella support, postoperative day four from CABG x6. She is awake, following commands. Off vasopressors. Remains on heparin drip, continue with chest tube in place, continue to follow Cardiothoracic input and recommendation. 08/27 patient is seen and examined at bedside, case discussed with the RN, no acute events overnight, patient awake, following commands, still with the Impella support, status post CABG. No chest pain, shortness shortness for breath, no nausea, no vomiting. Continue with chest tube in place. BP 132/74, afebrile, saturating 99% 4 L nasal cannula. CBC with a hemoglobin 9.0, hematocrit 28.1, WBC 12.2, with a platelet count of 152. Sodium 140, potassium 4.0, BUN of 12, creatinine 0.6, initially 2.10. Cardiology input noted and appreciated, echocardiogram ordered, we will follow report. Continue to follow Cardiothoracic input and recommendation. 08/28 patient is seen and examined at bedside, case discussed with the RN, no acute events overnight, patient remains admitted to the ICU, the time of my visit, awake, following command, NPO, she is scheduled to be taken to the operating room today for removal of Impella support by cardio thoracic surgeons, we will continue to follow input and recommendation. Limited 2D echo performed yesterday shows left ventricular cavity size is normal, Impella device measuring 5.6 cm into LV. Left ventricular ejection fraction 55-60%, no pericardial effusion. 08/29 patient is seen and examined at bedside, case discussed with the RN, no acute events overnight, patient remains admitted to the ICU, the time of my visit, awake, following command, NPO, she is scheduled to be taken to the operating room today for removal of Impella support by cardio thoracic surgeons, we will continue to follow input and recommendation. Limited 2D echo performed yesterday shows left ventricular cavity size is normal, Impella device measuring 5.6 cm into LV. Left ventricular ejection fraction 55-60%, no pericardial effusion. 08/30 patient is seen and examined at bedside, discussed with the RN, no acute events overnight, status post interval removal of Impella and placement of p ericardial patch in the operating room by Cardiothoracic surgeon, 08/29/2025, tolerated the procedure well. Patient will remain admitted to the ICU, we will continue to follow Cardiothoracic input and recommendation. Follow a.m. labs. Continue Lasix, follow intake and output, daily chest x-ray, continue heparin drip, follow critical care input and recommendation. Patient completed 10 days of Rocephin and a dose of vancomycin. Completed three days of Ancef. REVIEW OF SYSTEMS CONSTITUTIONAL: generalized fatigue, malaise NEUROLOGICAL: Denies headache, amaurosis fugax, motor weakness, sensory deficit, vertigo/spinning sensation, gait abnormalities, or tremors. ENT: No hearing loss, otalgia, otorrhea, rhinitis, rhinorrhea, hoarseness, or sore throat. CARDIOVASCULAR: Mild incisional chest pain, no shortness breath PULMONARY: Denies any shortness of breath, cough, phlegm/sputum, hemoptysis, pleuritic chest pain. SLEEP: Denies morning headaches, daytime somnolence or napping. Denies difficulty falling asleep, staying asleep, waking from sleep. Denies knowledge of snoring. GASTROINTESTINAL: No nausea, Denies any type of dysphagia to either liquids or solids. Denies vomiting, pyrosis, early satiety, abdominal pain, diarrhea, constipation, or changes in stool consistency or caliber. Denies coffee-ground emesis, hematemesis, hematochezia, or melanotic stools. GENITOURINARY: Denies frequency, urgency, nocturia, hematuria or incontinence (Storage/Irritative symptoms.) Low urinary stream, straining to void, urinary intermittency or hesitancy, splitting of the voiding stream, terminal dribbling. ENDOCRINOLOGIC: Denies polyuria, polydipsia, polyphagia or heat/cold intolerances. HEMATOLOGIC: Denies thrombophilia/previous clots, or coagulopathy/bleeding disorders. ONCOLOGIC: Denies personal history of malignancy. DERMATOLOGIC: Denies rashes or pruritus. PSYCHIATRIC: Denies any suicidal or homicidal ideation. Denies hallucinations. PHYSICAL EXAM GENERAL APPEARANCE: The patient is awake, appears ill and in no distress NEUROLOGICAL: Cranial nerves II-XII grossly intact. Motor is 5/5 in bilateral upper and lower extremities proximal to distal. No sensory deficits. HEENT: Face is symmetric. Pupils are equal and reactive. Extraocular movements are intact. NECK: Supple. No JVD. No thyromegaly. No submental, submandibular, pre- /postauricular, occipital or supraclavicular lymphadenopathy. CHEST: Normal chest expansion. No Telemetry. LUNGS: minimal crackles noted of the bilateral lung bases CARDIOVASCULAR: Regular. S1 and S2 normal. No appreciable rubs, murmurs or gallops. ABDOMEN: Soft, nontender, and nondistended. There is no rebound, voluntary guarding, or rigidity. : Deferred. No Coombs. EXTREMITIES: trace edema noted of the bilateral lower extremities SKIN: No skin breakdown. Vital Signs (last 8hr) Date Time Temp Pulse Resp B/P (MAP) Pulse Ox O2 Delivery O2 Flow Rate FiO2 08/30/25 09:00 69 25 95/58 (70) 100 78/59 (65) 08/30/25 08:59 69 40 08/30/25 08:40 68 47 98/38 (58) 85 78/63 (68) 08/30/25 08:11 68 16 107/54 (71) 100 99/80 (86) 08/30/25 08:00 94.3 08/30/25 08:00 100 Ventilator+ 40 08/30/25 07:39 66 19 119/72 (88) 100 107/73 (84) 08/30/25 07:15 67 16 136/77 (96) 100 114/72 (86) 08/30/25 07:02 67 50 08/30/25 07:00 67 14 100 116/80 (92) 08/30/25 06:45 66 14 100 131/107 (115) 08/30/25 06:30 66 12 135/74 (94) 100 121/89 (100) 08/30/25 06:15 66 12 99 121/102 (108) 08/30/25 06:00 67 11 132/71 (91) 100 40 125/79 (94) 08/30/25 05:45 66 9 100 122/78 (93) 08/30/25 05:30 67 10 126/66 (86) 100 106/63 (77) 08/30/25 05:15 67 14 100 107/67 (80) 08/30/25 05:00 68 10 140/75 (96) 100 40 113/68 (83) 08/30/25 04:45 66 11 100 95/58 (70) 08/30/25 04:30 66 9 122/62 (82) 100 108/71 (83) 08/30/25 04:18 100 Ventilator+ 40 08/30/25 04:15 65 12 100 95/58 (70) 08/30/25 04:00 65 14 122/61 (81) 100 40 112/82 (92) 08/30/25 04:00 99.1 08/30/25 03:30 68 11 127/66 (86) 100 128/99 (109) 08/30/25 03:15 69 16 100 106/71 (83) 10/26/25 03:15 67 50 08/30/25 03:00 67 20 98/53 (68) 98 40 89/68 (75) 08/30/25 02:45 67 10 100 96/55 (69) 08/30/25 02:37 103/55 08/30/25 02:30 66 9 103/55 (71) 100 97/69 (78) LABS: Laboratory: Test 08/30/25 07:36 08/30/25 02:15 08/29/25 13:43 08/29/25 03:48 Range/Units Whole Blood Glucose 191 H 70-110 MG/DL White Blood Count 7.6 4.8-10.8 K/uL Red Blood Count 2.93 L 4.00-5.50 MIL/uL Hemoglobin 9.1 L 12.0-16.0 g/dL Hematocrit 27.4 L 36-48 % Mean Corpuscular Volume 93.5 79-99 fL Mean Corpuscular Hemoglobin 31.1 27.0-33.0 pg Mean Corpuscular Hemoglobin Concent 33.2 32.0-36.0 g/dL Red Cell Distribution Width 18.9 H 11.0-15.5 % Platelet Count 132 130-400 K/uL Mean Platelet Volume 10.6 H 7.5-10.5 fL Nucleated Red Blood Cells 0.0 0.0-0.19 % Sodium Level 139 136-145 mmol/L Potassium Level 4.2 3.5-5.1 mmol/L Chloride Level 101 101-111 mmol/L Carbon Dioxide Level 32 21-32 mmol/L Blood Urea Nitrogen 10 7-18 mg/dL Creatinine 0.6 0.5-1.0 mg/dL Glomerular Filtration Rate Calc 104 >90 mL/min Random Glucose 214 H 70-105 mg/dL Total Calcium 8.1 L 8.5-10.1 mg/dL Ionized Calcium 1.12 L 1.15-1.33 MMOL/L Phosphorus Level 3.4 2.5-4.9 mg/dL Magnesium Level 1.60 L 1.80-2.40 mg/dL Total Bilirubin 0.5 0.2-1.0 mg/dL Aspartate Amino Transf (AST/SGOT) 30 10-37 U/L Alanine Aminotransferase (ALT/SGPT) 25 12-78 U/L Alkaline Phosphatase 223 H 50-136 U/L Total Protein 6.5 6.0-8.3 g/dL Albumin 1.8 L 3.5-5.0 g/dL Blood Gas Specimen Type Arterial Arterial Blood pH 7.531 H 7.350-7.450 Arterial Blood Partial Pressure CO2 32 32-45 mmHg Arterial Blood Partial Pressure O2 360.4 *H 83.0-108.0 mmHg Arterial Blood HCO3 26.0 21.0-28.0 mmol/L Arterial Blood Oxygen Saturation 99.5 H 94.0-98.0 % Arterial Blood Base Excess 3.5 H -2.0-3.0 mmol/L Hemoglobin (Blood Gas) 10.3 L 12.0-16.0 g/dL Sodium (Blood Gas) 133 L 136-145 MMOL/L Bedside Potassium (Blood Gas) 4.5 3.4-4.5 MMOL/L Bedside Chloride (Blood Gas) 100 98-107 MMOL/L Bedside Glucose (Blood Gas) 237 H 65-95 MG/DL Bedside Ionized Calcium (Blood Gas) 1.08 L 1.15-1.33 MMOL/L Bedside Lactic Acid (Blood Gas) 1.12 H 0.36-0.75 MMOL/L Blood Gas Temperature 37.0 35.5-37.0 CELSIUS Blood Gas Respiration Rate 15.0 min. Blood Gas Vent Mode SIMV ROOM AIR FiO2 100.0 % Blood Gas Tidal Volume 600 ml Blood Gas PEEP 5 cm H2O Blood Gas Specimen Comment LR LAURO FORRESTER Immature Granulocyte % (Auto) 2.3 H 0-1 % Neutrophils (%) (Auto) 63.8 40.0-77.0 % Lymphocytes (%) (Auto) 19.5 L 21.0-51.0 % Monocytes (%) (Auto) 9.3 3.0-13.0 % Eosinophils (%) (Auto) 4.9 0.0-8.0 % Basophils (%) (Auto) 0.2 0.0-5.0 % Neutrophils # (Auto) 4.2 1.8-7.7 K/uL Lymphocytes # (Auto) 1.3 1.0-4.8 K/uL Monocytes # (Auto) 0.6 0.1-1.0 K/uL Eosinophils # (Auto) 0.32 0.00-0.70 K/uL Basophils # (Auto) 0.01 0.00-0.20 K/uL Absolute Immature Granulocyte (auto 0.15 0-1 K/uL Current Medications Medications (Trade) Dose Ordered Sig/Elmer Route PRN Reason Start Time Stop Time Status Last Admin Dose Admin Acetaminophen (TYLenol 325MG TAB) 650 mg Q4H PRN PO Temp >38.3C(AFTER EXTUBATION) 08/20/25 17:00 09/19/25 16:59 Acetaminophen (TYLenol 325MG TAB) 650 mg Q6H PRN PO MILD PAIN (1-3) 08/13/25 16:30 09/12/25 16:29 08/23/25 11:01 650 MG Acetaminophen (TYLenol 500MG TAB) 500 mg Q6H PRN PO TEMP < 101.1 AND/OR HEADACHE 08/14/25 14:30 09/13/25 14:29 08/26/25 10:41 500 MG Acetaminophen (TYLenol 650MG SUPPOSITORY) 650 mg Q4H PRN RC Temp >38.3C WHILE INTUBATED 08/20/25 17:00 09/19/25 16:59 Acetaminophen (acetaMINOPHEN 1,000MG/100ML) 1,000 mg Q6H6 IVPB 08/21/25 12:00 09/20/25 11:59 08/30/25 05:06 1,000 MG Albumin Human 50 ml @ 0 mls/hr BID IV 08/18/25 09:00 08/23/25 08:59 DC 08/22/25 20:56 100 MLS/HR Albumin Human 250 ml @ 0 mls/hr AD PRN IV IF HEMODYNAMICALLY UNSTABLE 08/20/25 17:00 08/20/25 22:46 DC 08/20/25 22:46 0 MLS/HR Aminocaproic Acid 46019 mg/Sodium Chloride 310 ml @ 25 mls/hr AD IV 08/20/25 17:00 08/21/25 05:23 DC Aminocaproic Acid 88393 mg/Sodium Chloride 480 ml @ 0 mls/hr AD PRN IV BLEEDING CONTROL 08/20/25 08:00 09/19/25 07:59 Aminocaproic Acid 71655 mg/Sodium Chloride 480 ml @ 0 mls/hr AD PRN IV BLEEDING CONTROL 08/20/25 09:00 08/20/25 09:03 DC Amiodarone HCl (pacERONE 200MG) 200 mg BID PO 08/22/25 09:00 08/29/25 21:00 DC 08/28/25 20:25 200 MG Amiodarone HCl 360 mg/Dextrose 207.2 ml @ 33.3 mls/hr AD IV 08/20/25 21:00 08/20/25 21:05 DC Amiodarone HCl 540 mg/Dextrose 310.8 ml @ 16.7 mls/hr [id number] IV 08/21/25 03:00 08/27/25 06:20 DC 08/21/25 20:12 16.7 MLS/HR Amiodarone HCL/ Dextrose 207.2 ml @ 33.3 mls/hr AD IV 08/20/25 21:30 08/21/25 10:49 DC 08/20/25 21:24 33.3 MLS/HR Aspirin (Aspirin 81mg Chew Tab) 81 mg DAILY PO 08/14/25 09:00 09/13/25 08:59 08/28/25 09:13 81 MG Atorvastatin Calcium (LIPItor 40MG) 40 mg HS PO 08/13/25 21:00 09/12/25 20:59 08/28/25 20:26 40 MG Benzocaine (Cepacol Sore Throat Lozenge) 1 each Q4H PRN MM SORE THROAT 08/26/25 11:30 09/25/25 11:29 Bisacodyl (DulcoLAX) 10 mg DAILY RC 08/17/25 09:00 08/20/25 08:59 DC 08/18/25 07:58 10 MG Calcium Carbonate (Tums 500 Mg Chew Tab) 500 tab QID PRN PO HEARTBURN 08/19/25 12:00 08/20/25 16:32 DC 08/20/25 05:10 1 TAB Calcium Gluconate 1 gm/Sodium Chloride 60 ml @ 200 mls/hr AD PRN IV HYPOCALCEMIA 08/20/25 17:00 09/19/25 16:59 08/30/25 03:43 200 MLS/HR Cefazolin Sodium (Ancef) 2 gm ONCALL IVP 08/19/25 19:30 08/21/25 08:36 DC 08/20/25 16:30 2 GM Cefazolin Sodium (Ancef) 2 gm Q8H IVPB 08/20/25 22:00 08/21/25 14:01 DC 08/21/25 13:45 2 GM Ceftriaxone Sodium (Rocephin 2gm Inj) 2 gm Q24H IVPB 08/14/25 11:30 08/24/25 11:29 DC 08/23/25 12:16 2 GM Chlordiazepoxide HCl (LIBrium 25 MG CAP) 25 mg Q2H PRN PO ALCOHOL WITHDRAWAL PROTOCOL 08/14/25 14:30 08/20/25 16:32 DC 08/16/25 23:38 25 MG Chlordiazepoxide HCl (LIBrium 25 MG CAP) 50 mg Q1H PRN PO ALCOHOL WITHDRAWAL PROTOCOL 08/14/25 14:30 08/20/25 16:32 DC Dexmedetomidine/ Sodium Chloride (PRECEdex 400MCG/ 100ML-NS) 400 mcg PROTOCOL IV 08/20/25 20:30 09/19/25 20:29 08/30/25 06:43 400 MCG Dextrose (D50w) 50 ml AD PRN IV HYPOGLYCEMIA PROTOCOL 08/20/25 17:00 09/19/25 16:59 Dextrose (D50w) 50 ml AD PRN IV HYPOGLYCEMIA PROTOCOL 08/13/25 20:00 08/20/25 22:03 DC Diphenhydramine HCl (BENAdryl INJ) 25 mg ONCE PRN IV ITCHING 08/15/25 23:00 08/17/25 22:59 DC Docusate Sodium (COLace 100MG CAP) 100 mg BID PRN PO CONSTIPATION 08/14/25 11:00 09/13/25 10:59 Dopamine HCl/ Dextrose 250 ml @ 0 mls/hr PROTOCOL IV 08/13/25 16:00 09/12/25 15:59 08/16/25 16:41 3 MLS/HR Epinephrine HCl 10 mg/Sodium Chloride 250 ml @ 14.091 mls/ hr AD PRN IV POST-OP CARDIOVASCULAR ORDERS 08/20/25 17:00 08/21/25 10:49 DC Epinephrine HCl 10 mg/Sodium Chloride 250 ml @ 0 mls/hr AD PRN IV TITRATE 08/20/25 08:00 09/19/25 07:59 08/26/25 16:56 0 MLS/HR Epinephrine HCl 10 mg/Sodium Chloride 250 ml @ 0 mls/hr AD PRN IV TITRATE 08/20/25 09:00 08/20/25 09:03 DC Famotidine (Pepcid 20mg Vial) 20 mg BID IV 08/20/25 21:00 08/22/25 08:20 DC 08/21/25 20:17 20 MG Famotidine (Pepcid 20mg Tab) 20 mg BID PO 08/22/25 09:00 09/21/25 08:59 08/28/25 20:26 20 MG Folic Acid (FOLic ACID 1 MG TABLET) 1 mg DAILY PO 08/15/25 09:00 08/17/25 09:01 DC 08/17/25 07:46 1 MG Furosemide (LASix 20MG VIAL) 20 mg Q12H IV 08/21/25 11:30 08/22/25 14:17 DC 08/22/25 11:53 20 MG Furosemide (LASix 20MG VIAL) 20 mg Q12H IV 08/22/25 21:00 08/23/25 11:37 DC 08/23/25 09:50 20 MG Furosemide (LASix 20MG VIAL) 40 mg Q12H IV 08/22/25 21:00 08/22/25 14:32 DC Furosemide (LASix 40MG VIAL) 40 mg Q12H IV 08/23/25 11:30 09/22/25 11:29 08/29/25 22:38 40 MG Gabapentin (NEURontin 300 MG CAP) 300 mg TID PO 08/23/25 14:00 09/22/25 13:59 08/28/25 20:25 300 MG Glucagon (Glucagon 1mg Kit) 1 mg AD PRN IM HYPOGLYCEMIA PROTOCOL 08/20/25 17:00 09/19/25 16:59 Glucagon (Glucagon 1mg Kit) 1 mg AD PRN IM HYPOGLYCEMIA PROTOCOL 08/13/25 20:00 08/21/25 10:49 DC Heparin Sodium (Porcine) (HEParin 5,000 UNIT VIAL) *calculation based on ACTUAL B... AD PRN IV HEPARIN PROTOCOL 08/13/25 16:30 08/20/25 16:32 DC 08/17/25 04:46 3,175 UNIT Heparin Sodium/ Dextrose 250 ml @ 0 mls/hr PROTOCOL IV 08/21/25 11:30 09/20/25 11:29 08/28/25 15:28 10.54 MLS/HR Heparin Sodium/ Dextrose 250 ml @ 0 mls/hr Q6H IV 08/13/25 16:30 08/20/25 16:32 DC 08/19/25 22:03 11.78 MLS/HR Insulin Glargine (LANtus 100 UNITS/ML 10 ML VIAL) 5 units BID@0730,2100 SQ 08/16/25 21:00 08/17/25 09:31 DC 08/16/25 21:21 5 UNITS Insulin Glargine (LANtus 100 UNITS/ML 10 ML VIAL) 10 units HS SQ 08/13/25 21:00 08/14/25 06:16 DC 08/13/25 20:21 10 UNITS Insulin Glargine (LANtus 100 UNITS/ML 10 ML VIAL) 15 units DAILY SQ 08/23/25 09:00 08/28/25 07:20 DC 08/27/25 08:35 15 UNITS Insulin Glargine (LANtus 100 UNITS/ML 10 ML VIAL) 20 units DAILY SQ 08/14/25 09:00 08/15/25 07:24 DC 08/14/25 08:01 20 UNITS Insulin Glargine (LANtus 100 UNITS/ML 10 ML VIAL) 20 units DAILY SQ 08/28/25 09:00 09/27/25 08:59 Insulin Glargine (LANtus 100 UNITS/ML 10 ML VIAL) 30 units DAILY 08/15/25 09:00 08/16/25 07:19 DC 08/15/25 08:28 30 UNITS Insulin Glargine (LANtus 100 UNITS/ML 10 ML VIAL) 35 units DAILY SQ 08/16/25 09:00 08/19/25 07:35 DC 08/18/25 07:59 35 UNITS Insulin Glargine (LANtus 100 UNITS/ML 10 ML VIAL) 42 units DAILY SQ 08/19/25 09:00 08/20/25 06:22 DC 08/19/25 09:40 42 UNITS Insulin Glargine (LANtus 100 UNITS/ML 10 ML VIAL) 45 units DAILY SQ 08/20/25 09:00 08/20/25 16:32 DC Insulin Human Lispro (HumaLOG LISpro 100 UNIT/ML 3ML) INSULIN SLIDING SCAL... ACHS SQ 08/16/25 21:00 08/17/25 09:31 DC Insulin Human Regular (humuLIN R 100 UNIT/ML 3ML) 3 unit TIDAC SQ 08/27/25 07:30 08/27/25 20:56 DC 08/27/25 16:47 3 UNIT Insulin Human Regular (humuLIN R 100 UNIT/ML 3ML) 5 unit TIDAC SQ 08/14/25 17:00 08/15/25 07:24 DC 08/15/25 07:03 5 UNIT Insulin Human Regular (humuLIN R 100 UNIT/ML 3ML) 6 unit TIDAC SQ 08/28/25 07:30 09/27/25 07:29 08/30/25 08:27 2 UNIT Insulin Human Regular (humuLIN R 100 UNIT/ML 3ML) 8 unit TIDAC SQ 08/15/25 07:30 08/15/25 22:46 DC 08/15/25 16:02 8 UNIT Insulin Human Regular (humuLIN R 100 UNIT/ML 3ML) 10 unit TIDAC SQ 08/16/25 07:30 08/17/25 21:12 DC 08/17/25 16:09 10 UNIT Insulin Human Regular (humuLIN R 100 UNIT/ML 3ML) 12 unit TIDAC SQ 08/18/25 07:30 08/18/25 20:19 DC 08/18/25 16:39 12 UNIT Insulin Human Regular (humuLIN R 100 UNIT/ML 3ML) 16 unit TIDAC SQ 08/19/25 07:30 08/20/25 06:22 DC 08/19/25 16:47 16 UNIT Insulin Human Regular (humuLIN R 100 UNIT/ML 3ML) 17 unit TIDAC SQ 08/20/25 07:30 08/20/25 16:32 DC Insulin Human Regular (humuLIN R 100 UNIT/ML 3ML) INSULIN SLIDING SCAL... ACHS SQ 08/17/25 16:30 08/20/25 16:32 DC 08/19/25 21:31 8 UNIT Insulin Human Regular (humuLIN R 100 UNIT/ML 3ML) INSULIN SLIDING SCAL... ACHS SQ 08/22/25 11:30 08/22/25 21:32 DC 08/22/25 20:58 3 UNIT Insulin Human Regular (humuLIN R 100 UNIT/ML 3ML) INSULIN SLIDING SCAL... ACHS SQ 08/23/25 07:30 09/22/25 07:29 08/30/25 07:49 2 UNIT Insulin Human Regular (humuLIN R 100 UNIT/ML 3ML) INSULIN SLIDING SCAL... ACHS SQ 08/13/25 16:30 08/16/25 20:46 DC 08/16/25 20:01 4 UNIT Insulin Human Regular 100 unit/ Sodium Chloride 100 ml @ 0 mls/hr AD IV 08/20/25 17:00 08/22/25 16:59 DC 08/21/25 15:00 5 MLS/HR Iron Sucrose (VenoFER) 200 mg DAILY IV 08/21/25 13:00 08/23/25 09:43 DC 08/22/25 11:53 200 MG Iron Sucrose (VenoFER) 200 mg DAILY IV 08/23/25 09:00 08/26/25 08:57 DC 08/25/25 09:25 200 MG Lidocaine (Lidocaine Patch 4%) 1 each DAILY TP 08/19/25 09:00 09/18/25 08:59 08/30/25 10:12 1 EACH Lidocaine HCl/ Dextrose 250 ml @ 0 mls/hr PROTOCOL IV 08/21/25 00:00 09/20/25 00:00 Magnesium Sulfate 50 ml @ 12.5 mls/hr AD PRN IV MAG LEVEL LESS THAN 2.0 08/20/25 17:00 09/19/25 16:59 08/30/25 02:47 12.5 MLS/HR Magnesium Sulfate 50 ml @ 0 mls/hr PROTOCOL IV 08/13/25 16:30 08/21/25 10:49 DC 08/21/25 05:58 25 MLS/HR Midodrine (PROAMatine 5 MG TABLET) 5 mg Q6H6 PO 08/26/25 16:00 09/25/25 15:59 08/29/25 05:39 5 MG Morphine Sulfate (morPHINE 2MG SYG) 0.5 mg Q2H PRN IV MODERATE PAIN (4-6) 08/20/25 17:00 08/20/25 18:07 DC Morphine Sulfate (morPHINE 2MG SYG) 2 mg Q6H PRN IVP SEVERE PAIN (7-10) 08/19/25 18:00 08/20/25 16:32 DC 08/19/25 17:50 2 MG Morphine Sulfate (morPHINE 4MG SYG) 0.5 mg Q2H PRN IV MODERATE PAIN (4-6) 08/20/25 18:30 08/21/25 16:59 DC Morphine Sulfate (morPHINE 4MG SYG) 1 mg Q2H PRN IV SEVERE PAIN (7-10) 08/20/25 17:00 08/21/25 16:59 DC Morphine Sulfate (morPHINE 4MG SYG) 2 mg Q6H PRN IVP SEVERE PAIN (7-10) 08/14/25 09:30 08/19/25 12:29 DC 08/19/25 12:22 2 MG Multivitamins Therapeutic (Multivitamin Tablet) 1 tab DAILY PO 08/15/25 09:00 09/14/25 08:59 08/28/25 09:13 1 TAB Nitroglycerin/ Dextrose 0 ml @ 0 mls/hr AD IV 08/20/25 17:00 08/23/25 16:59 DC Nitroglycerin/ Dextrose 250 ml @ 0 mls/hr PROTOCOL IV 08/20/25 03:30 08/20/25 16:32 DC 08/20/25 03:12 1.5 MLS/HR Norepinephrine 250 ml @ 0 mls/hr PROTOCOL IV 08/13/25 15:30 08/20/25 08:31 DC Norepinephrine Bitartrate 250 ml @ 0 mls/hr AD PRN IV TITRATE 08/20/25 08:00 09/19/25 07:59 08/30/25 02:37 0 MLS/HR Norepinephrine Bitartrate 250 ml @ 0 mls/hr AD PRN IV TITRATE 08/20/25 09:00 08/20/25 09:03 DC Norepinephrine Bitartrate 8 mg/ Dextrose 250 ml @ 0 mls/hr AD PRN IV POST-OP CARDIOVASCULAR ORDERS 08/20/25 17:00 08/21/25 10:49 DC Ondansetron HCl (zoFRAN 4MG INJ) 4 mg Q4H PRN IV NAUSEA 08/14/25 14:30 08/20/25 16:32 DC 08/14/25 14:17 4 MG Ondansetron HCl (zoFRAN 4MG INJ) 4 mg Q6H PRN IV NAUSEA/VOMITING 08/20/25 17:00 09/19/25 16:59 08/29/25 12:47 4 MG Ondansetron HCl (zoFRAN 4MG INJ) 4 mg Q6H PRN IVP NAUSEA/VOMITING 08/13/25 16:30 08/14/25 14:08 DC Pantoprazole Sodium (PROTonix 40MG INJ) 40 mg Q12H IVP 08/17/25 16:30 08/20/25 16:32 DC 08/20/25 03:53 40 MG Pantoprazole Sodium (PROTonix 40MG INJ) 40 mg Q24H IVP 08/13/25 16:30 08/17/25 11:10 DC 08/16/25 16:07 40 MG Pharmacy Profile Note (Pharmacy Communication) 1 each PROTOCOL PRN MISC ETOH Withdrawal Score changes 08/14/25 14:30 08/14/25 14:08 DC Phenylephrine HCl 100 mg/Sodium Chloride 250 ml @ 0 mls/hr PROTOCOL IV 08/26/25 20:30 09/25/25 20:29 Piperacillin Sod/ Tazobactam Sod (Zosyn 3.375gm+NS 50ml) 3.375 gm Q8H IV 08/30/25 10:00 09/09/25 09:59 08/30/25 10:12 3.375 GM Polyethylene Glycol (MIRalax 3350 17 GM POWD.PACK) 17 gm DAILY PO 08/15/25 09:00 09/14/25 08:59 08/28/25 09:14 17 GM Potassium Phosphate 250 ml @ 42 mls/hr AD PRN IV LOW PHOS LEVEL 08/20/25 17:00 09/19/25 16:59 Potassium Chloride 100 ml @ 100 mls/hr AD PRN IV HYPOKALEMIA 08/20/25 17:00 09/19/25 16:59 08/29/25 06:34 100 MLS/HR Potassium Chloride 100 ml @ 100 mls/hr AD PRN IV POTASSIUM PROTOCOL 08/13/25 16:30 08/20/25 16:32 DC 08/16/25 16:07 100 MLS/HR Potassium Chloride (K-Dur/Klor-Con 20meq) 20 meq AD PRN PO POTASSIUM PROTOCOL 08/13/25 16:30 08/20/25 16:32 DC 08/15/25 08:23 20 MEQ Potassium Chloride (KCl 10% Elixir 20meq/15ml) 20 meq AD PRN PO POTASSIUM PROTOCOL 08/13/25 16:30 08/20/25 16:32 DC Promethazine HCl (Phenergan) 25 mg Q6H PRN PO NAUSEA 08/14/25 14:30 08/20/25 16:32 DC Propofol 100 ml @ 0 mls/hr AD PRN IV SEDATION 08/20/25 17:00 08/24/25 17:00 DC Sodium Bicarbonate 25 meq/Dextrose 1,000 ml @ 0 mls/hr Q0M IV 08/14/25 00:30 09/13/25 00:29 08/28/25 16:29 14 MLS/HR Sodium Bicarbonate 25 meq/Dextrose 1,000 ml @ 0 mls/hr Q0M IVP 08/14/25 00:30 08/14/25 00:15 DC Sodium Bicarbonate (Sodium Bicarb 50meq 50ml Vial) 50 meq AD PRN IV OTHER[SEE DOSING INSTRUCTIONS] 08/20/25 17:00 08/23/25 16:59 DC 08/21/25 01:19 50 MEQ Sodium Chloride 500 ml @ 500 mls/hr Q1H IV 08/20/25 00:33 08/20/25 03:16 DC 08/20/25 00:53 500 MLS/HR Sodium Chloride 500 ml @ 0 mls/hr AD IV 08/20/25 17:00 09/19/25 16:59 Sodium Chloride 1,000 ml @ 10 mls/hr ONCE IV 08/20/25 17:00 08/21/25 16:59 DC 08/20/25 22:31 10 MLS/HR Sodium Chloride (NS Flush 10ml) 10 ml Q8H PRN IVP IV LINE FLUSH 08/20/25 17:00 09/19/25 16:59 Thiamine HCl (Vitamin B-1) 300 mg DAILY IV 08/15/25 09:00 08/17/25 09:01 DC 08/17/25 07:46 300 MG Ticagrelor (BRILinta) 90 mg BID PO 08/14/25 09:00 08/14/25 21:19 DC 08/14/25 20:09 90 MG Tramadol HCl (UltRAM) 25 mg Q6H PRN PO MODERATE PAIN (4-6) 08/20/25 17:00 08/25/25 16:59 DC Tramadol HCl (UltRAM) 25 mg Q6H PRN PO MODERATE PAIN (4-6) 08/26/25 11:00 08/31/25 10:59 08/27/25 03:12 25 MG Tramadol HCl (UltRAM) 50 mg Q6H PRN PO SEVERE PAIN (7-10) 08/20/25 17:00 08/25/25 16:59 DC 08/25/25 09:24 50 MG Tramadol HCl (UltRAM) 50 mg Q6H PRN PO SEVERE PAIN (7-10) 08/26/25 11:00 08/31/25 10:59 08/29/25 05:39 50 MG Vancomycin HCl 250 ml @ 125 mls/hr Q12H IV 08/18/25 09:00 08/19/25 20:54 DC 08/19/25 09:39 125 MLS/HR Vancomycin HCl 250 ml @ 125 mls/hr Q12H IV 08/24/25 23:00 08/26/25 21:47 DC 08/26/25 11:47 125 MLS/HR Vancomycin HCl 250 ml @ 125 mls/hr Q8H IV 08/19/25 21:30 08/21/25 00:23 DC 08/20/25 22:26 125 MLS/HR Vancomycin HCl 250 ml @ 125 mls/hr Q8H IV 08/21/25 06:30 08/21/25 08:35 DC 08/21/25 08:15 125 MLS/HR Vancomycin HCl 250 ml @ 125 mls/hr Q8H IV 08/21/25 08:00 08/21/25 06:28 DC Vancomycin HCl 250 ml @ 125 mls/hr Q8H IV 08/21/25 16:30 08/24/25 16:54 DC 08/24/25 09:32 125 MLS/HR Vancomycin HCl (Vancomycin Protocol) 1 each AD IV 08/17/25 22:00 08/26/25 21:47 DC DIAGNOSTICS / RADIOLOGY: [ ] ASSESSMENT: Cardiogenic shock with lactic acidosis, POA NSTEMI/ACS, POA Complete heart block, POA History of multivessel coronary artery disease, POA History of cocaine use disorder, POA Severe nonketotic hyperglycemia, POA History of to poorly controlled type 2 diabetes mellitus, POA Lactic acidosis, POA History of anemia, POA History of gastritis, POA History of hypertension, POA History of PTSD/anxiety, POA Obesity, POA Medical noncompliance, POA PLAN: patient is seen and examined at bedside, discussed with the RN, no acute events overnight, status post interval removal of Impella and placement of pericardial patch in the operating room by Cardiothoracic surgeon, 08/29/2025, tolerated the procedure well. Patient will remain admitted to the ICU, we will continue to follow Cardiothoracic input and recommendation. Follow a.m. labs. Continue Lasix, follow intake and output, daily chest x-ray, continue heparin drip, follow critical care input and recommendation. Patient completed 10 days of Rocephin and a dose of vancomycin. Completed three days of Ancef. NEURO: MINIMIZE CENTRAL ACTING MEDICATIONS POSSIBLE. FALL PRECAUTIONS. WELL LIGHTED ROOM THROUGH THE DAY AND MINIMIZE INTERRUPTIONS THROUGH THE NIGHT TO PREVENT ACUTE DELIRIUM. PULMONARY: SUPPLEMENTAL 02 NEEDED BIPAP NECESSARY, FOR RESPIRATORY DISTRESS TITRATE FIO2 TO KEEP SPO2 > OR = 90% DUONEBS AND CPT NEEDED IS HOURLY WHILE AWAKE FOR PULMONARY HYGIENE PRN OUT OF BED TO CHAIR TOLERATED MAINTAIN ASPIRATION PRECAUTIONS AT ALL TIMES CARDIOVASCULAR: FOLLOW HEMODYNAMICS. VITAL SIGNS PER FACILITY PROTOCOL GI & NUTRITION: CONTINUE NUTRITIONAL SUPPORT ASPIRATIONS PRECAUTIONS PROKINETIC AGENTS AND LAXATIVES NEEDED KIDNEYS & ELECTROLYTES: STRICT MONITORING OF INTAKE AND OUTPUT DAILY WEIGHTS AVOID NEPHROTOXIC AGENTS MONITOR ELECTROLYTES AND REPLACE NEEDED GOAL URINE OUTPUT OF 30ML/HR OR 0.5ML/KG/HR MEDICATIONS TO BE DOSED ACCORDING TO RENAL FUNCTION. AVOID CONTRAST IF POSSIBLE ENDOCRINE: MAINTAIN BLOOD GLUCOSE BETWEEN 100-180 AT ALL TIMES. INSULIN SLIDING SCALE FOR BLOOD GLUCOSE MANAGEMENT HYPOGLYCEMIA AND HYPERGLYCEMIA PROTOCOL IN PLACE INFECTIOUS DISEASE: TREND TEMPERATURE, WBC AND PROCALCITONIN LEVEL FOLLOW CULTURES, DEESCALATE ANTIBIOTICS SOON POSSIBLE. PANCULTURE IF NEW ONSET FEVER HEMATOLOGY & COAGULATION: MONITOR H&H. KEEP HGB > 7 TRANSFUSE 1 UNIT OF PRBC FOR HGB < 7 TRANSFUSE 1 PACK OF PLATELETS OF PLATELETS < 20, 000 WATCH FOR ANY SIGNS AND SYMPTOMS OF BLEEDING SKIN: PRESSURE ULCER PREVENTION PER FACILITY PROTOCOL SPECIALTY MATTRESS NEEDED ORTHO/REHAB CONTINUE PT/OT PRN: MEDICATIONS TYLENOL 650 MG PO EVERY 4 HRS FOR FEVER ZOFRAN 4 MG IV EVERY 6 HRS FOR N/V HYDRALAZINE 5 MG IV EVERY 4 HRS SYSTOLIC PRESSURE > 160 BOWEL REGIMENT: LACTULOSE 20 GM PO BID PRN CONSTIPATION SUPPORTIVE MEASURES: CONTINUE GI AND DVT PROPHYLAXIS DISPOSITION: PENDING IMPROVEMENT IN CLINICAL CONDITION ALL QUESTIONS ANSWERED TIME SPENT: > 35 MIN GEE MARTIN MD Aug 30, 2025 10:18
--- NOTE | 2025-08-30 10:34 | NUR ---
OLIVER KONG LEAD POURER, ODERED TO HOLD LANTUS FOR TODAY SINCE PATIENT IS NPO.
--- NOTE | 2025-08-30 11:10 | NUR ---
DR. LR CAME AND WAS SHOWN THE CXR. ORDERED THE LASIX DRIP RECOMMENDED BY THE OLIVER KONG NP.
[2025-08-30 12:01] LABS: ABG BASE EXCESS 4.0 mmol/L (-2.0-3.0); ABG HCO3 28.5 mmol/L (21.0-28.0); ABG OXYGEN SATURATION 97.4 % (94.0-98.0); ABG PCO2 42 mmHg (32-45); ABG PH 7.447 (7.350-7.450); CARBON MONOXIDE 0.8 % (0.5-1.5); PO2, ARTERIAL BG 97.8 mmHg (83.0-108.0); TEMPERATURE, CELSIUS BG 37.0 CELSIUS (35.5-37.0); VENT MODE, BG AC (ROOM AIR)
--- NOTE | 2025-08-30 13:30 | PN ---
PROGRESS NOTE PROBLEM LIST: Non ST segment elevation myocardial infarction History of cocaine use Severe multivessel coronary artery disease with an occluded RCA on presentation which could not be percutaneous or revascularize Status post coronary artery bypass grafting x3 with a GREGORY-LAD, SVG-OMB, SVG-D2 VENTRICULAR STANDSTILL AFTER ANESTHESIA INDUCTION FOR REMOVAL OF IMPELLA DEVICE ON 08/29/2025 INTERIM HISTORY OF PRESENT ILLNESS: Patient has remained sedated and intubated postprocedure. Patient has been maintained on Precedex. Blood pressures have remained stable. Telemetry has remained stable as well. REVIEW OF SYSTEMS: Currently unobtainable VITAL SIGNS Vital Signs Date Time Temp Pulse Resp B/P (MAP) Pulse Ox O2 Delivery O2 Flow Rate FiO2 08/30/25 11:41 75 40 08/30/25 11:10 51 131/84 (100) 99 120/78 (92) 08/30/25 08:00 94.3 08/30/25 08:00 Ventilator+ 08/29/25 07:00 2 Laboratory Tests 08/30/25 02:15 LABS/MEDS Laboratory Tests Test 08/29/25 13:43 08/29/25 19:57 08/30/25 02:15 08/30/25 07:36 Blood Gas Specimen Type Arterial Arterial Blood pH 7.531 (7.350-7.450) Arterial Blood Partial Pressure CO2 32 mmHg (32-45) Arterial Blood Partial Pressure O2 360.4 mmHg (83.0-108.0) Arterial Blood HCO3 26.0 mmol/L (21.0-28.0) Arterial Blood Oxygen Saturation 99.5 % (94.0-98.0) H Arterial Blood Base Excess 3.5 mmol/L (-2.0-3.0) H Hemoglobin (Blood Gas) 10.3 g/dL (12.0-16.0) L Sodium (Blood Gas) 133 MMOL/L (136-145) L Bedside Potassium (Blood Gas) 4.5 MMOL/L (3.4-4.5) Bedside Chloride (Blood Gas) 100 MMOL/L (98-107) Bedside Glucose (Blood Gas) 237 MG/DL (65-95) H Bedside Ionized Calcium (Blood Gas) 1.08 MMOL/L (1.15-1.33) L Bedside Lactic Acid (Blood Gas) 1.12 MMOL/L (0.36-0.75) H Blood Gas Temperature 37.0 CELSIUS (35.5-37.0) Blood Gas Respiration Rate 15.0 min. Blood Gas Vent Mode SIMV (ROOM AIR) FiO2 100.0 % Blood Gas Tidal Volume 600 ml Blood Gas PEEP 5 cm H2O Blood Gas Specimen Comment LR LAURO RN Whole Blood Glucose 220 MG/DL (70-110) H 191 MG/DL (70-110) H White Blood Count 7.6 K/uL (4.8-10.8) Red Blood Count 2.93 MIL/uL (4.00-5.50) L Hemoglobin 9.1 g/dL (12.0-16.0) L Hematocrit 27.4 % (36-48) L Mean Corpuscular Volume 93.5 fL (79-99) Mean Corpuscular Hemoglobin 31.1 pg (27.0-33.0) Mean Corpuscular Hemoglobin Concent 33.2 g/dL (32.0-36.0) Red Cell Distribution Width 18.9 % (11.0-15.5) H Platelet Count 132 K/uL (130-400) Mean Platelet Volume 10.6 fL (7.5-10.5) H Nucleated Red Blood Cells 0.0 % (0.0-0.19) Sodium Level 139 mmol/L (136-145) Potassium Level 4.2 mmol/L (3.5-5.1) Chloride Level 101 mmol/L (101-111) Carbon Dioxide Level 32 mmol/L (21-32) Blood Urea Nitrogen 10 mg/dL (7-18) Creatinine 0.6 mg/dL (0.5-1.0) Glomerular Filtration Rate Calc 104 mL/min (>90) Random Glucose 214 mg/dL (70-105) H Total Calcium 8.1 mg/dL (8.5-10.1) L Ionized Calcium 1.12 MMOL/L (1.15-1.33) L Phosphorus Level 3.4 mg/dL (2.5-4.9) Magnesium Level 1.60 mg/dL (1.80-2.40) L Total Bilirubin 0.5 mg/dL (0.2-1.0) Aspartate Amino Transf (AST/SGOT) 30 U/L (10-37) Alanine Aminotransferase (ALT/SGPT) 25 U/L (12-78) Alkaline Phosphatase 223 U/L (50-136) H Total Protein 6.5 g/dL (6.0-8.3) Albumin 1.8 g/dL (3.5-5.0) L Test 08/30/25 12:00 08/30/25 12:04 Blood Gas Specimen Type Arterial Arterial Blood pH 7.447 (7.350-7.450) Arterial Blood Partial Pressure CO2 42 mmHg (32-45) Arterial Blood Partial Pressure O2 97.8 mmHg (83.0-108.0) Arterial Blood HCO3 28.5 mmol/L (21.0-28.0) H Arterial Blood Oxygen Saturation 97.4 % (94.0-98.0) Arterial Blood Base Excess 4.0 mmol/L (-2.0-3.0) H Hemoglobin (Blood Gas) 10.4 g/dL (12.0-16.0) L Sodium (Blood Gas) 135 MMOL/L (136-145) L Bedside Potassium (Blood Gas) 4.1 MMOL/L (3.4-4.5) Bedside Chloride (Blood Gas) 100 MMOL/L (98-107) Bedside Glucose (Blood Gas) 219 MG/DL (65-95) H Bedside Ionized Calcium (Blood Gas) 1.14 MMOL/L (1.15-1.33) L Bedside Lactic Acid (Blood Gas) 1.03 MMOL/L (0.36-0.75) H Blood Gas Temperature 37.0 CELSIUS (35.5-37.0) Blood Gas Respiration Rate 12.0 min. Blood Gas Vent Mode AC (ROOM AIR) FiO2 40.0 % Blood Gas Tidal Volume 500 ml Blood Gas PEEP 5 cm H2O Blood Gas Specimen Comment LR,KAIDEN Whole Blood Glucose 189 MG/DL (70-110) H Current Medications Ondansetron HCl 4 mg ONCE ONCE IVP; Start 08/13/25 at 14:30; Stop 08/13/25 at 14:52; Status DC Sodium Chloride 500 ml @ 0 mls/hr ONCE ONCE IV Last administered on 08/13/25at 15:00; Start 08/13/25 at 14:30; Stop 08/13/25 at 14:31; Status DC Heparin Sodium (Porcine) *calculation based on ACTUAL B... AD PRN IV Last administered on 08/17/25at 04:46; Start 08/13/25 at 16:30; Stop 08/20/25 at 16:32; Status DC Heparin Sodium/ Dextrose 250 ml @ 0 mls/hr Q6H IV Last administered on 08/19/25at 22:03; Start 08/13/25 at 16:30; Stop 08/20/25 at 16:32; Status DC Norepinephrine 250 ml @ 0 mls/hr PROTOCOL IV; Start 08/13/25 at 15:30; Stop 08/20/25 at 08:31; Status DC Dopamine HCl/ Dextrose 250 ml @ As Directed STK-MED ONCE IV; Start 08/13/25 at 15:33; Stop 08/13/25 at 15:33; Status DC Aspirin 325 mg STK-MED ONCE .ROUTE; Start 08/13/25 at 15:34; Stop 08/13/25 at 15:33; Status DC Ticagrelor 180 mg ONCE ONCE PO Last administered on 08/13/25at 16:16; Start 08/13/25 at 16:00; Stop 08/13/25 at 16:01; Status DC Morphine Sulfate 1 mg ONCE ONCE IVP Last administered on 08/13/25at 16:23; Start 08/13/25 at 16:00; Stop 08/13/25 at 16:01; Status DC Ticagrelor 90 mg STK-MED ONCE .ROUTE; Start 08/13/25 at 15:50; Stop 08/13/25 at 15:50; Status DC Dopamine HCl/ Dextrose 250 ml @ 0 mls/hr PROTOCOL IV Last administered on 08/16/25at 16:41; Start 08/13/25 at 16:00; Stop 09/12/25 at 15:59 Aspirin 325 mg ONCE ONCE PO Last administered on 08/13/25at 16:15; Start 08/13/25 at 16:00; Stop 08/13/25 at 16:01; Status DC Lidocaine HCl 20 ml STK-MED ONCE .ROUTE; Start 08/13/25 at 16:12; Stop 08/13/25 at 16:12; Status DC Iohexol 35,000 mg STK-MED ONCE IV; Start 08/13/25 at 16:12; Stop 08/13/25 at 16:12; Status DC Heparin Sodium (Porcine) 10,000 unit STK-MED ONCE .ROUTE; Start 08/13/25 at 16:12; Stop 08/13/25 at 16:12; Status DC Nicardipine HCl 25 mg STK-MED ONCE IV; Start 08/13/25 at 16:12; Stop 08/13/25 at 16:12; Status DC Heparin Sodium/ Sodium Chloride 1,000 ml @ As Directed STK-MED ONCE IV; Start 08/13/25 at 16:12; Stop 08/13/25 at 16:12; Status DC Nitroglycerin 50 mg STK-MED ONCE .ROUTE; Start 08/13/25 at 16:12; Stop 08/13/25 at 16:12; Status DC Pantoprazole Sodium 40 mg Q24H IVP Last administered on 08/16/25at 16:07; Start 08/13/25 at 16:30; Stop 08/17/25 at 11:10; Status DC Insulin Human Regular INSULIN SLIDING SCAL... ACHS SQ Last administered on 08/16/25at 20:01; Start 08/13/25 at 16:30; Stop 08/16/25 at 20:46; Status DC Insulin Human Regular 5 unit ONCE ONCE IV; Start 08/13/25 at 16:30; Stop 08/13/25 at 16:31; Status DC Fentanyl Citrate 100 mcg STK-MED ONCE .ROUTE; Start 08/13/25 at 16:26; Stop 08/13/25 at 16:26; Status DC Midazolam HCl 2 mg STK-MED ONCE .ROUTE; Start 08/13/25 at 16:27; Stop 08/13/25 at 16:27; Status DC Acetaminophen 650 mg Q6H PRN PO Last administered on 08/23/25at 11:01; Start 08/13/25 at 16:30; Stop 09/12/25 at 16:29 Ondansetron HCl 4 mg Q6H PRN IVP; Start 08/13/25 at 16:30; Stop 08/14/25 at 14:08; Status DC Potassium Chloride 100 ml @ 100 mls/hr AD PRN IV Last administered on 08/16/25at 16:07; Start 08/13/25 at 16:30; Stop 08/20/25 at 16:32; Status DC Potassium Chloride 20 meq AD PRN PO; Start 08/13/25 at 16:30; Stop 08/20/25 at 16:32; Status DC Potassium Chloride 20 meq AD PRN PO Last administered on 08/15/25at 08:23; Start 08/13/25 at 16:30; Stop 08/20/25 at 16:32; Status DC Magnesium Sulfate 50 ml @ 0 mls/hr PROTOCOL IV Last administered on 08/21/25at 05:58; Start 08/13/25 at 16:30; Stop 08/21/25 at 10:49; Status DC Atorvastatin Calcium 40 mg HS PO Last administered on 08/28/25at 20:26; Start 08/13/25 at 21:00; Stop 09/12/25 at 20:59 Heparin Sodium/ Sodium Chloride 500 ml @ As Directed STK-MED ONCE IV; Start 08/13/25 at 17:14; Stop 08/13/25 at 17:14; Status DC Heparin Sodium (Porcine) 10,000 unit STK-MED ONCE .ROUTE; Start 08/13/25 at 18:03; Stop 08/13/25 at 18:03; Status DC Aspirin 81 mg DAILY PO Last administered on 08/28/25at 09:13; Start 08/14/25 at 09:00; Stop 09/13/25 at 08:59 Insulin Glargine 10 units HS SQ Last administered on 08/13/25at 20:21; Start 08/13/25 at 21:00; Stop 08/14/25 at 06:16; Status DC Dextrose 50 ml AD PRN IV; Start 08/13/25 at 20:00; Stop 08/20/25 at 22:03; Status DC Glucagon 1 mg AD PRN IM; Start 08/13/25 at 20:00; Stop 08/21/25 at 10:49; Status DC Sodium Bicarbonate 25 meq/Dextrose 1,000 ml @ 0 mls/hr Q0M IVP; Start 08/14/25 at 00:30; Stop 08/14/25 at 00:15; Status DC Sodium Bicarbonate 25 meq/Dextrose 1,000 ml @ 0 mls/hr Q0M IV Last administered on 08/28/25at 16:29; Start 08/14/25 at 00:30; Stop 09/13/25 at 00:29 Glycerin 1 supp ONCE ONCE RC Last administered on 08/14/25at 05:56; Start 08/14/25 at 05:00; Stop 08/14/25 at 05:06; Status DC Insulin Glargine 20 units DAILY SQ Last administered on 08/14/25at 08:01; Start 08/14/25 at 09:00; Stop 08/15/25 at 07:24; Status DC Ticagrelor 90 mg BID PO Last administered on 08/14/25at 20:09; Start 08/14/25 at 09:00; Stop 08/14/25 at 21:19; Status DC Morphine Sulfate 2 mg Q6H PRN IVP Last administered on 08/19/25at 12:22; Start 08/14/25 at 09:30; Stop 08/19/25 at 12:29; Status DC Polyethylene Glycol 17 gm DAILY PO Last administered on 08/28/25at 09:14; Start 08/15/25 at 09:00; Stop 09/14/25 at 08:59 Docusate Sodium 100 mg BID PRN PO; Start 08/14/25 at 11:00; Stop 09/13/25 at 10:59 Ceftriaxone Sodium 2 gm Q24H IVPB Last administered on 08/23/25at 12:16; Start 08/14/25 at 11:30; Stop 08/24/25 at 11:29; Status DC Insulin Human Regular 5 unit TIDAC SQ Last administered on 08/15/25at 07:03; Start 08/14/25 at 17:00; Stop 08/15/25 at 07:24; Status DC Chlordiazepoxide HCl 25 mg Q2H PRN PO Last administered on 08/16/25at 23:38; Start 08/14/25 at 14:30; Stop 08/20/25 at 16:32; Status DC Chlordiazepoxide HCl 50 mg Q1H PRN PO; Start 08/14/25 at 14:30; Stop 08/20/25 at 16:32; Status DC Ondansetron HCl 4 mg Q4H PRN IV Last administered on 08/14/25at 14:17; Start 08/14/25 at 14:30; Stop 08/20/25 at 16:32; Status DC Promethazine HCl 25 mg Q6H PRN PO; Start 08/14/25 at 14:30; Stop 08/20/25 at 16:32; Status DC Acetaminophen 500 mg Q6H PRN PO Last administered on 08/26/25at 10:41; Start 08/14/25 at 14:30; Stop 09/13/25 at 14:29 Thiamine HCl 300 mg DAILY IV Last administered on 08/17/25at 07:46; Start 08/15/25 at 09:00; Stop 08/17/25 at 09:01; Status DC Folic Acid 1 mg DAILY PO Last administered on 08/17/25at 07:46; Start 08/15/25 at 09:00; Stop 08/17/25 at 09:01; Status DC Multivitamins Therapeutic 1 tab DAILY PO Last administered on 08/28/25at 09:13; Start 08/15/25 at 09:00; Stop 09/14/25 at 08:59 Pharmacy Profile Note 1 each PROTOCOL PRN MISC; Start 08/14/25 at 14:30; Stop 08/14/25 at 14:08; Status DC Insulin Glargine 30 units DAILY SQ Last administered on 08/15/25at 08:28; Start 08/15/25 at 09:00; Stop 08/16/25 at 07:19; Status DC Insulin Human Regular 8 unit TIDAC SQ Last administered on 08/15/25at 16:02; Start 08/15/25 at 07:30; Stop 08/15/25 at 22:46; Status DC Diphenhydramine HCl 25 mg ONCE ONCE IM; Start 08/15/25 at 21:00; Stop 08/15/25 at 22:52; Status DC Insulin Human Regular 10 unit TIDAC SQ Last administered on 08/17/25at 16:09; Start 08/16/25 at 07:30; Stop 08/17/25 at 21:12; Status DC Diphenhydramine HCl 25 mg ONCE PRN IV; Start 08/15/25 at 23:00; Stop 08/17/25 at 22:59; Status DC Insulin Glargine 35 units DAILY SQ Last administered on 08/18/25at 07:59; Start 08/16/25 at 09:00; Stop 08/19/25 at 07:35; Status DC Bisacodyl 10 mg DAILY RC Last administered on 08/18/25at 07:58; Start 08/17/25 at 09:00; Stop 08/20/25 at 08:59; Status DC Insulin Human Lispro INSULIN SLIDING SCAL... ACHS SQ; Start 08/16/25 at 21:00; Stop 08/17/25 at 09:31; Status DC Insulin Glargine 5 units BID@0730,2100 SQ Last administered on 08/16/25at 21:21; Start 08/16/25 at 21:00; Stop 08/17/25 at 09:31; Status DC Pantoprazole Sodium 40 mg Q12H IVP Last administered on 08/20/25at 03:53; Start 08/17/25 at 16:30; Stop 08/20/25 at 16:32; Status DC Insulin Human Regular INSULIN SLIDING SCAL... ACHS SQ Last administered on 08/19/25at 21:31; Start 08/17/25 at 16:30; Stop 08/20/25 at 16:32; Status DC Insulin Human Regular 12 unit TIDAC SQ Last administered on 08/18/25at 16:39; Start 08/18/25 at 07:30; Stop 08/18/25 at 20:19; Status DC Vancomycin HCl 1 each AD IV; Start 08/17/25 at 22:00; Stop 08/26/25 at 21:47; Status DC Vancomycin HCl 250 ml @ 83.333 mls/ hr ONCE ONCE IV Last administered on 08/17/25at 23:05; Start 08/17/25 at 22:30; Stop 08/18/25 at 01:29; Status DC Vancomycin HCl 250 ml @ 125 mls/hr Q12H IV Last administered on 08/19/25at 09:39; Start 08/18/25 at 09:00; Stop 08/19/25 at 20:54; Status DC Albumin Human 50 ml @ 0 mls/hr BID IV Last administered on 08/22/25at 20:56; Start 08/18/25 at 09:00; Stop 08/23/25 at 08:59; Status DC Lidocaine 1 each DAILY TP Last administered on 08/30/25at 10:12; Start 08/19/25 at 09:00; Stop 09/18/25 at 08:59 Lidocaine 1 each ONCE ONCE TP Last administered on 08/18/25at 13:52; Start 08/18/25 at 14:00; Stop 08/18/25 at 14:01; Status DC Diphenhydramine HCl 25 mg ONCE ONCE PO Last administered on 08/18/25at 15:19; Start 08/18/25 at 15:30; Stop 08/18/25 at 15:31; Status DC Insulin Human Regular 16 unit TIDAC SQ Last administered on 08/19/25at 16:47; Start 08/19/25 at 07:30; Stop 08/20/25 at 06:22; Status DC Insulin Glargine 42 units DAILY SQ Last administered on 08/19/25at 09:40; Start 08/19/25 at 09:00; Stop 08/20/25 at 06:22; Status DC Calcium Carbonate 500 tab QID PRN PO Last administered on 08/20/25at 05:10; Start 08/19/25 at 12:00; Stop 08/20/25 at 16:32; Status DC Morphine Sulfate 2 mg Q6H PRN IVP Last administered on 08/19/25at 17:50; Start 08/19/25 at 18:00; Stop 08/20/25 at 16:32; Status DC Cefazolin Sodium 2 gm ONCALL IVP Last administered on 08/20/25at 16:30; Start 08/19/25 at 19:30; Stop 08/21/25 at 08:36; Status DC Vancomycin HCl 250 ml @ 125 mls/hr Q8H IV Last administered on 08/20/25at 22:26; Start 08/19/25 at 21:30; Stop 08/21/25 at 00:23; Status DC Sodium Chloride 500 ml @ 500 mls/hr Q1H IV Last administered on 08/20/25at 00:53; Start 08/20/25 at 00:33; Stop 08/20/25 at 03:16; Status DC Nitroglycerin/ Dextrose 250 ml @ 0 mls/hr PROTOCOL IV Last administered on 08/20/25at 03:12; Start 08/20/25 at 03:30; Stop 08/20/25 at 16:32; Status DC Insulin Glargine 45 units DAILY SQ; Start 08/20/25 at 09:00; Stop 08/20/25 at 16:32; Status DC Insulin Human Regular 17 unit TIDAC SQ; Start 08/20/25 at 07:30; Stop 08/20/25 at 16:32; Status DC Epinephrine HCl 10 mg/Sodium Chloride 250 ml @ 0 mls/hr AD PRN IV Last administered on 08/26/25at 16:56; Start 08/20/25 at 08:00; Stop 09/19/25 at 07:59 Norepinephrine Bitartrate 250 ml @ 0 mls/hr AD PRN IV Last administered on 08/30/25at 02:37; Start 08/20/25 at 08:00; Stop 09/19/25 at 07:59 Aminocaproic Acid 48428 mg/Sodium Chloride 480 ml @ 0 mls/hr AD PRN IV; Start 08/20/25 at 08:00; Stop 09/19/25 at 07:59 Cefazolin Sodium 1 gm STK-MED ONCE .ROUTE; Start 08/20/25 at 08:23; Stop 08/20/25 at 08:23; Status DC Heparin Sodium/ Sodium Chloride 500 ml @ As Directed STK-MED ONCE IV; Start 08/20/25 at 08:23; Stop 08/20/25 at 08:24; Status DC Papaverine HCl 60 mg STK-MED ONCE .ROUTE Last administered on 08/20/25at 17:05; Start 08/20/25 at 08:23; Stop 08/20/25 at 08:24; Status DC Epinephrine HCl 10 mg/Sodium Chloride 250 ml @ 0 mls/hr AD PRN IV; Start 08/20/25 at 09:00; Stop 08/20/25 at 09:03; Status DC Norepinephrine Bitartrate 250 ml @ 0 mls/hr AD PRN IV; Start 08/20/25 at 09:00; Stop 08/20/25 at 09:03; Status DC Aminocaproic Acid 64205 mg/Sodium Chloride 480 ml @ 0 mls/hr AD PRN IV; Start 08/20/25 at 09:00; Stop 08/20/25 at 09:03; Status DC Protamine Sulfate 250 mg STK-MED ONCE IV; Start 08/20/25 at 15:44; Stop 08/20/25 at 15:44; Status DC Lidocaine HCl 100 mg STK-MED ONCE .ROUTE; Start 08/20/25 at 15:44; Stop 08/20/25 at 15:44; Status DC Heparin Sodium (Porcine) 10,000 unit STK-MED ONCE .ROUTE; Start 08/20/25 at 15:44; Stop 08/20/25 at 15:44; Status DC Epinephrine HCl 1 mg STK-MED ONCE .ROUTE; Start 08/20/25 at 15:44; Stop 08/20/25 at 15:44; Status DC Sodium Bicarbonate 200 ml @ As Directed STK-MED ONCE .ROUTE; Start 08/20/25 at 15:44; Stop 08/20/25 at 15:44; Status DC Norepinephrine Bitartrate 4 mg STK-MED ONCE IV; Start 08/20/25 at 15:44; Stop 08/20/25 at 15:44; Status DC Propofol 200 mg STK-MED ONCE IV; Start 08/20/25 at 15:45; Stop 08/20/25 at 15:44; Status DC Fentanyl Citrate 1,000 mcg STK-MED ONCE IJ; Start 08/20/25 at 15:45; Stop 08/20/25 at 15:45; Status DC Midazolam HCl 2 mg STK-MED ONCE .ROUTE; Start 08/20/25 at 15:45; Stop 08/20/25 at 15:45; Status DC Rocuronium [place] 50 mg STK-MED ONCE .ROUTE; Start 08/20/25 at 15:45; Stop 08/20/25 at 15:45; Status DC Sodium Bicarbonate 400 ml @ As Directed STK-MED ONCE .ROUTE; Start 08/20/25 at 15:46; Stop 08/20/25 at 15:46; Status DC Cefazolin Sodium 1 gm STK-MED ONCE .ROUTE Last administered on 08/20/25at 17:05; Start 08/20/25 at 16:19; Stop 08/20/25 at 16:19; Status DC Vancomycin HCl 250 ml @ As Directed STK-MED ONCE IV Last administered on 08/20/25at 16:40; Start 08/20/25 at 16:40; Stop 08/20/25 at 16:40; Status DC Sodium Chloride 1,000 ml @ 10 mls/hr ONCE IV Last administered on 08/20/25at 22:31; Start 08/20/25 at 17:00; Stop 08/21/25 at 16:59; Status DC Sodium Chloride 10 ml Q8H PRN IVP; Start 08/20/25 at 17:00; Stop 09/19/25 at 16:59 Morphine Sulfate 0.5 mg Q2H PRN IV; Start 08/20/25 at 17:00; Stop 08/20/25 at 18:07; Status DC Morphine Sulfate 1 mg Q2H PRN IV; Start 08/20/25 at 17:00; Stop 08/21/25 at 16:59; Status DC Acetaminophen 650 mg Q4H PRN RC; Start 08/20/25 at 17:00; Stop 09/19/25 at 16:59 Ondansetron HCl 4 mg Q6H PRN IV Last administered on 08/29/25at 12:47; Start 08/20/25 at 17:00; Stop 09/19/25 at 16:59 Sodium Chloride 500 ml @ 0 mls/hr AD IV; Start 08/20/25 at 17:00; Stop 09/19/25 at 16:59 Nitroglycerin/ Dextrose 0 ml @ 0 mls/hr AD IV; Start 08/20/25 at 17:00; Stop 08/23/25 at 16:59; Status DC Propofol 100 ml @ 0 mls/hr AD PRN IV; Start 08/20/25 at 17:00; Stop 08/24/25 at 17:00; Status DC Norepinephrine Bitartrate 8 mg/ Dextrose 250 ml @ 0 mls/hr AD PRN IV; Start 08/20/25 at 17:00; Stop 08/21/25 at 10:49; Status DC Epinephrine HCl 10 mg/Sodium Chloride 250 ml @ 14.091 mls/ hr AD PRN IV; Start 08/20/25 at 17:00; Stop 08/21/25 at 10:49; Status DC Aminocaproic Acid 62360 mg/Sodium Chloride 310 ml @ 25 mls/hr AD IV; Start 08/20/25 at 17:00; Stop 08/21/25 at 05:23; Status DC Calcium Gluconate 1 gm/Sodium Chloride 60 ml @ 200 mls/hr AD PRN IV Last administered on 08/30/25at 03:43; Start 08/20/25 at 17:00; Stop 09/19/25 at 16:59 Magnesium Sulfate 50 ml @ 12.5 mls/hr AD PRN IV Last administered on 08/30/25at 02:47; Start 08/20/25 at 17:00; Stop 09/19/25 at 16:59 Potassium Chloride 100 ml @ 100 mls/hr AD PRN IV Last administered on 08/29/25at 06:34; Start 08/20/25 at 17:00; Stop 09/19/25 at 16:59 Potassium Phosphate 250 ml @ 42 mls/hr AD PRN IV; Start 08/20/25 at 17:00; Stop 09/19/25 at 16:59 Albumin Human 250 ml @ 0 mls/hr AD PRN IV Last administered on 08/20/25at 22:46; Start 08/20/25 at 17:00; Stop 08/20/25 at 22:46; Status DC Acetaminophen 650 mg Q4H PRN PO; Start 08/20/25 at 17:00; Stop 09/19/25 at 16:59 Insulin Human Regular 100 unit/ Sodium Chloride 100 ml @ 0 mls/hr AD IV Last administered on 08/21/25at 15:00; Start 08/20/25 at 17:00; Stop 08/22/25 at 16:59; Status DC Cefazolin Sodium 2 gm Q8H IVPB Last administered on 08/21/25at 13:45; Start 08/20/25 at 22:00; Stop 08/21/25 at 14:01; Status DC Tramadol HCl 25 mg Q6H PRN PO; Start 08/20/25 at 17:00; Stop 08/25/25 at 16:59; Status DC Tramadol HCl 50 mg Q6H PRN PO Last administered on 08/25/25at 09:24; Start 08/20/25 at 17:00; Stop 08/25/25 at 16:59; Status DC Famotidine 20 mg BID IV Last administered on 08/21/25at 20:17; Start 08/20/25 at 21:00; Stop 08/22/25 at 08:20; Status DC Sodium Bicarbonate 50 meq AD PRN IV Last administered on 08/21/25at 01:19; Start 08/20/25 at 17:00; Stop 08/23/25 at 16:59; Status DC Dextrose 50 ml AD PRN IV; Start 08/20/25 at 17:00; Stop 09/19/25 at 16:59 Glucagon 1 mg AD PRN IM; Start 08/20/25 at 17:00; Stop 09/19/25 at 16:59 Amiodarone HCL/ Dextrose 100 ml @ As Directed STK-MED ONCE .ROUTE; Start 08/20/25 at 16:52; Stop 08/20/25 at 16:52; Status DC Lidocaine HCl 100 mg STK-MED ONCE .ROUTE; Start 08/20/25 at 17:34; Stop 08/20/25 at 17:34; Status DC Morphine Sulfate 0.5 mg Q2H PRN IV; Start 08/20/25 at 18:30; Stop 08/21/25 at 16:59; Status DC Heparin Sodium (Porcine) 10,000 unit STK-MED ONCE .ROUTE; Start 08/20/25 at 18:12; Stop 08/20/25 at 18:12; Status DC Insulin Human Regular 300 unit STK-MED ONCE .ROUTE; Start 08/20/25 at 19:39; Stop 08/20/25 at 19:39; Status DC Dexmedetomidine/ Sodium Chloride 400 mcg PROTOCOL IV Last administered on 08/30/25at 11:40; Start 08/20/25 at 20:30; Stop 09/19/25 at 20:29 Magnesium Sulfate 8.12 meq STK-MED ONCE IJ; Start 08/20/25 at 20:17; Stop 08/20/25 at 20:17; Status DC Vasopressin 20 units STK-MED ONCE .ROUTE; Start 08/20/25 at 20:17; Stop 08/20/25 at 20:17; Status DC Amiodarone HCl 360 mg/Dextrose 207.2 ml @ 33.3 mls/hr AD IV; Start 08/20/25 at 21:00; Stop 08/20/25 at 21:05; Status DC Amiodarone HCl 540 mg/Dextrose 310.8 ml @ 16.7 mls/hr [id number] IV Last administered on 08/21/25at 20:12; Start 08/21/25 at 03:00; Stop 08/27/25 at 06:20; Status DC Amiodarone HCL/ Dextrose 207.2 ml @ 33.3 mls/hr AD IV Last administered on 08/20/25at 21:24; Start 08/20/25 at 21:30; Stop 08/21/25 at 10:49; Status DC Albumin Human 250 ml @ 0 mls/hr ONCE ONCE IV Last administered on 08/20/25at 00:00; Start 08/20/25 at 00:00; Stop 08/20/25 at 23:58; Status DC Lidocaine HCl/ Dextrose 250 ml @ 0 mls/hr PROTOCOL IV; Start 08/21/25 at 00:00; Stop 09/20/25 at 00:00 Albumin Human 250 ml @ As Directed STK-MED ONCE IV; Start 08/21/25 at 00:03; Stop 08/21/25 at 00:05; Status DC Vancomycin HCl 250 ml @ 125 mls/hr Q8H IV; Start 08/21/25 at 08:00; Stop 08/21/25 at 06:28; Status DC Vancomycin HCl 250 ml @ 125 mls/hr Q8H IV Last administered on 08/21/25at 08:15; Start 08/21/25 at 06:30; Stop 08/21/25 at 08:35; Status DC Vancomycin HCl 250 ml @ 125 mls/hr Q8H IV Last administered on 08/24/25at 09:32; Start 08/21/25 at 16:30; Stop 08/24/25 at 16:54; Status DC Furosemide 20 mg Q12H IV Last administered on 08/22/25at 11:53; Start 08/21/25 at 11:30; Stop 08/22/25 at 14:17; Status DC Acetaminophen 1,000 mg Q6H6 IVPB Last administered on 08/30/25at 11:56; Start 08/21/25 at 12:00; Stop 09/20/25 at 11:59 Heparin Sodium/ Dextrose 250 ml @ 0 mls/hr PROTOCOL IV Last administered on 08/28/25at 15:28; Start 08/21/25 at 11:30; Stop 09/20/25 at 11:29 Iron Sucrose 200 mg DAILY IV Last administered on 08/22/25at 11:53; Start 08/21/25 at 13:00; Stop 08/23/25 at 09:43; Status DC Amiodarone HCl 200 mg BID PO Last administered on 08/28/25at 20:25; Start 08/22/25 at 09:00; Stop 08/29/25 at 21:00; Status DC Famotidine 20 mg BID PO Last administered on 08/28/25at 20:26; Start 08/22/25 at 09:00; Stop 09/21/25 at 08:59 Insulin Human Regular INSULIN SLIDING SCAL... ACHS SQ Last administered on 08/22/25at 20:58; Start 08/22/25 at 11:30; Stop 08/22/25 at 21:32; Status DC Furosemide 40 mg Q12H IV; Start 08/22/25 at 21:00; Stop 08/22/25 at 14:32; Status DC Furosemide 20 mg Q12H IV Last administered on 08/23/25at 09:50; Start 08/22/25 at 21:00; Stop 08/23/25 at 11:37; Status DC Insulin Human Regular INSULIN SLIDING SCAL... ACHS SQ Last administered on 08/30/25at 13:11; Start 08/23/25 at 07:30; Stop 09/22/25 at 07:29 Insulin Glargine 15 units DAILY SQ Last administered on 08/27/25at 08:35; Start 08/23/25 at 09:00; Stop 08/28/25 at 07:20; Status DC Iron Sucrose 200 mg DAILY IV Last administered on 08/25/25at 09:25; Start 08/23/25 at 09:00; Stop 08/26/25 at 08:57; Status DC Furosemide 40 mg Q12H IV Last administered on 08/29/25at 22:38; Start 08/23/25 at 11:30; Stop 08/30/25 at 11:08; Status DC Gabapentin 300 mg TID PO Last administered on 08/28/25at 20:25; Start 08/23/25 at 14:00; Stop 09/22/25 at 13:59 Vancomycin HCl 250 ml @ 125 mls/hr Q12H IV Last administered on 08/26/25at 11:47; Start 08/24/25 at 23:00; Stop 08/26/25 at 21:47; Status DC Tramadol HCl 25 mg Q6H PRN PO Last administered on 08/27/25at 03:12; Start 08/26/25 at 11:00; Stop 08/31/25 at 10:59 Tramadol HCl 50 mg Q6H PRN PO Last administered on 08/29/25at 05:39; Start 08/26/25 at 11:00; Stop 08/31/25 at 10:59 Benzocaine 1 each Q4H PRN MM; Start 08/26/25 at 11:30; Stop 09/25/25 at 11:29 Midodrine 5 mg Q6H6 PO Last administered on 08/29/25at 05:39; Start 08/26/25 at 16:00; Stop 09/25/25 at 15:59 Phenylephrine HCl 100 mg/Sodium Chloride 250 ml @ 0 mls/hr PROTOCOL IV; Start 08/26/25 at 20:30; Stop 09/25/25 at 20:29 Insulin Human Regular 3 unit TIDAC SQ Last administered on 08/27/25at 16:47; Start 08/27/25 at 07:30; Stop 08/27/25 at 20:56; Status DC Insulin Human Regular 6 unit TIDAC SQ Last administered on 08/30/25at 08:27; Start 08/28/25 at 07:30; Stop 09/27/25 at 07:29 Insulin Glargine 20 units DAILY SQ; Start 08/28/25 at 09:00; Stop 09/27/25 at 08:59 Lactulose 20 gm ONCE ONCE PO Last administered on 08/28/25at 09:14; Start 08/28/25 at 09:00; Stop 08/28/25 at 09:01; Status DC Cefazolin Sodium 1 gm STK-MED ONCE .ROUTE; Start 08/29/25 at 08:56; Stop 08/29/25 at 08:56; Status DC Heparin Sodium/ Sodium Chloride 500 ml @ As Directed STK-MED ONCE IV; Start 08/29/25 at 08:56; Stop 08/29/25 at 08:57; Status DC Midazolam HCl 2 mg STK-MED ONCE .ROUTE; Start 08/29/25 at 10:06; Stop 08/29/25 at 10:07; Status DC Lidocaine HCl 100 mg STK-MED ONCE .ROUTE; Start 08/29/25 at 10:15; Stop 08/29/25 at 10:15; Status DC Propofol 200 mg STK-MED ONCE IV; Start 08/29/25 at 10:15; Stop 08/29/25 at 10:15; Status DC Rocuronium [place] 50 mg STK-MED ONCE .ROUTE; Start 08/29/25 at 10:37; Stop 08/29/25 at 10:37; Status DC Midazolam HCl 2 mg STK-MED ONCE .ROUTE; Start 08/29/25 at 10:46; Stop 08/29/25 at 10:47; Status DC Cefazolin Sodium 2 gm STK-MED ONCE IVPB Last administered on 08/29/25at 10:05; Start 08/29/25 at 10:05; Stop 08/29/25 at 11:24; Status DC Fentanyl Citrate 250 mcg STK-MED ONCE IV; Start 08/29/25 at 11:21; Stop 08/29/25 at 11:22; Status DC Furosemide 40 mg ONCE ONCE IV Last administered on 08/30/25at 10:11; Start 08/30/25 at 10:00; Stop 08/30/25 at 10:01; Status DC Piperacillin Sod/ Tazobactam Sod 3.375 gm Q8H IV Last administered on 08/30/25at 10:12; Start 08/30/25 at 10:00; Stop 09/09/25 at 09:59 Furosemide 100 mg/ Sodium Chloride 100 ml @ 0 mls/hr PROTOCOL IV Last administered on 08/30/25at 12:08; Start 08/30/25 at 11:30; Stop 09/29/25 at 11:29 PHYSICAL EXAMINATION: GENERAL: Sedated intubated HEENT: Normocephalic, atraumatic. CARDIAC: Positive S1 and S2. No murmurs. Sternotomy is clean LUNGS: Clear to auscultation bilaterally. ABDOMEN: Bowel sounds present, soft, nontender. EXTREMITIES: No edema bilaterally. NEUROLOGIC: Cranial nerves 2-12 grossly intact. PSYCHIATRIC: Calm. TELEMETRY: Sinus rhythm currently with evidence of complete heart block on telemetry resolved and ventricular standstill ASSESSMENT: Non ST segment elevation myocardial infarction History of cocaine use Severe multivessel coronary artery disease with an occluded RCA on presentation which could not be percutaneous or revascularize Status post coronary artery bypass grafting x3 with a GREGORY-LAD, SVG-OMB, SVG-D2 VENTRICULAR STANDSTILL AFTER ANESTHESIA INDUCTION FOR REMOVAL OF IMPELLA DEVICE ON 08/29/2025 PLAN: Goal we will continue to with guideline directed medical therapy on this patient. Ultimately patient we will need to be maintained on beta-blockade, ARB/SERGE inhibitor, high-dose statin and dual antiplatelet therapy once lines have been pulled. We will continue to follow chest tube output. Chest tube management per CT surgery. Ventilatory management per ICU team. We will continue to follow up. SOO BARTHOLOMEW MD Aug 30, 2025 13:30
--- NOTE | 2025-08-30 13:33 | HMCIMG ---
EXAM: CHEST RADIOGRAPH, SINGLE VIEW Technique: A portable anteroposterior single-view radiograph of the chest was obtained. Sensitivity for small pleural effusions and small pneumothoraces is limited on a single frontal projection. Comparison is made with the single-view chest radiograph from August 29, 2025 at 12:30 p.m. [place] Daylight Time. Clinical Information: Post???coronary artery bypass grafting status with multiple devices in place; assessment of tube and catheter positions and cardiopulmonary status. Findings: A small left pleural effusion is present. No pneumothorax is identified on this single-view examination. The cardiac silhouette is mildly enlarged and unchanged. There is pulmonary vascular congestion with early interstitial and mild alveolar pulmonary edema, unchanged. Median sternotomy wires and mediastinal surgical clips are present. A right internal jugular [place]???Guillaume catheter is present with the tip projecting over the expected location of the main pulmonary artery, unchanged. An Impella left ventricular assist device is present with the inflow portion projecting over the left ventricular cavity and the outflow portion over the ascending aorta; no radiographic complication is identified. An endotracheal tube is in place with the tip approximately 4.3 centimeters above the jerica. No acute or aggressive osseous abnormality is identified. Impression: * Lines and devices: Right internal jugular [place]???Guillaume catheter with tip over the main pulmonary artery; Impella left ventricular assist device in expected position; endotracheal tube tip approximately 4.3 centimeters above the jerica. No radiographic device-related complication identified. * Mild cardiomegaly with pulmonary vascular congestion and early interstitial and mild alveolar pulmonary edema, unchanged from August 29, 2025 at 12:30 p.m. [place] Daylight Time. * Small left pleural effusion. * No pneumothorax detected on this single-view examination. * Status post median sternotomy. /Daisy
--- NOTE | 2025-08-30 15:36 | NUR ---
PATIENT REMAINED AROUSABLE WITH VERBAL STIMULI, AND WAS FOLLOWING COMMANDS, WILL WAKE UP RESTLESS BUT THEN SETTLED DOWN. WAS INFORMED OF THE NEED FOR OGT INSERTION BUT PATIENT REFUSED.
--- NOTE | 2025-08-30 19:19 | PN ---
[facility] PROGRESS NOTE Date Patient Seen: Aug 30, 2025 Time of Visit: 19:10 Supervising Physician: James Morris MD Consulting Physician: Hospitalist Outpatient Specialists: [ ] Inpatient Consults: Dr Chris ZARATE PROBLEM LIST: Acute hypoxic resp failure requiring intubation on 08/29/25 Suspected aspiration Pneumonia Acute on chronic Diastolic Heart Failure with EF of >50% CABG x3 vessels 08/20 Cardiogenic shock SCAI stage D status post cardiac catheterization with multivessel disease, Impella placement, removal on 08/29/25 Complete heart block, status post transvenous temporary pacemaker placement Bradycardia with episode of asystole requiring 20 seconds of CPR on 08/29/25 NSTEMI, POA Bacteremia + Staph Cohni urealyticum DM type 2, with hyperglycemia, HGB A1c of 10.7 Cocaine abuse Tobacco use, current smoker History of CVA INTERVAL HISTORY: Patient is day one status post Impella removal. During Impella removal in the OR patient has a episode of bradycardia with 20 seconds of asystole which required CPR. She was brought back to the ICU yesterday afternoon intubated on mechanical ventilation. She is now currently on Levophed at 0.04 mcg/kg per minute, she is slightly sedated on Precedex but as per RN and RT she has been refusing ABG and becoming agitated and slightly aggressive with staff. Chest x-ray with the increased pulmonary vascular congestion and widening of the right side. ET tube in good position. No pneumothorax. Per CV surgery patient to continue with Lasix drip and patient to remain intubated. We will try spontaneous breathing trials tomorrow morning. Plan: Follow CT surgeon recs Continues on Lasix gtt Follow I&Os IV Zosyn for possible aspiration pneumonia Daily chest x-ray ABX: Completed 10 days of Rocephin and 9 days of Vancomycin. Ancef completed x 3. Lines/tubes: [place] chest tube, Sara, FC ABG and chest XR in am Ventilator settings: SIMV, volume control, tidal volume of 500 respiratory rate of 12 FiO2 of 40% and PEEP of 5. Total critical care time spent 35 minutes, this excludes any procedures pe rformed or any time spent in educational or teaching. REVIEW OF SYSTEMS: 12 point ROS reviewed with patient. Pertinent positives mentioned above. Otherwise negative. PHYSICAL EXAM: GENERAL: alert, weak, awake oriented x 3 HEENT: EOMI, Sclera non icteric, moist mucosa NECK: Supple, no JVD, trachea midline LUNGS: Clear breath sounds bilaterally. No wheezes HEART: Normal S1 and S2, without murmurs ABD: Abdomen soft, nontender. Bowel sounds present EXT: No clubbing cyanosis or edema. Impella to rt groin. NEURO: Alert and oriented to person, follows commands Vital Signs (last 8hr) Date Time Temp Pulse Resp B/P (MAP) Pulse Ox O2 Delivery O2 Flow Rate FiO2 08/30/25 18:28 76 40 08/30/25 18:15 79 14 100 102/92 (95) 08/30/25 18:00 78 13 100 114/96 (102) 08/30/25 17:45 75 14 99 115/101 (106) 08/30/25 17:30 73 18 99 116/97 (103) 08/30/25 17:15 74 13 100 97/69 (78) 08/30/25 17:00 78 16 100 104/90 (95) 08/30/25 16:45 77 13 100 100/86 (91) 08/30/25 16:30 74 15 100 101/67 (78) 08/30/25 16:15 75 13 100 94/56 (69) 08/30/25 16:00 75 15 100 125/108 (114) 08/30/25 16:00 97.3 08/30/25 16:00 100 Ventilator+ 40 08/30/25 15:45 77 14 100 123/100 (108) 08/30/25 15:30 74 13 100 114/77 (89) 08/30/25 15:15 76 18 90 144/82 (102) 08/30/25 15:00 77 17 100 126/106 (113) 08/30/25 14:59 76 40 08/30/25 14:45 77 13 100 111/75 (87) 08/30/25 14:30 77 15 100 118/100 (106) 08/30/25 14:15 74 12 100 104/89 (94) 08/30/25 14:00 76 16 100 116/92 (100) 08/30/25 13:45 73 12 142/74 (96) 100 120/92 (101) 08/30/25 13:30 76 20 100 120/96 (104) 08/30/25 13:15 75 12 161/83 (109) 100 129/75 (93) 08/30/25 13:00 72 14 100 133/97 (109) 08/30/25 12:45 74 17 180/83 (115) 100 138/98 (111) 08/30/25 12:30 74 15 100 147/122 (130) 08/30/25 12:15 75 15 160/78 (105) 100 144/104 (117) 08/30/25 12:00 74 14 100 147/110 (122) 08/30/25 12:00 100 Ventilator+ 40 08/30/25 12:00 97.9 08/30/25 11:45 77 15 155/81 (105) 100 126/81 (96) 08/30/25 11:41 75 40 08/30/25 11:30 74 49 100 118/79 (92) 08/30/25 11:15 77 16 100 111/72 (85) LABS: Hematology Labs: Test 08/30/25 02:15 08/29/25 03:48 Range/Units White Blood Count 7.6 4.8-10.8 K/uL Red Blood Count 2.93 L 4.00-5.50 MIL/uL Hemoglobin 9.1 L 12.0-16.0 g/dL Hematocrit 27.4 L 36-48 % Mean Corpuscular Volume 93.5 79-99 fL Mean Corpuscular Hemoglobin 31.1 27.0-33.0 pg Mean Corpuscular Hemoglobin Concent 33.2 32.0-36.0 g/dL Red Cell Distribution Width 18.9 H 11.0-15.5 % Platelet Count 132 130-400 K/uL Mean Platelet Volume 10.6 H 7.5-10.5 fL Nucleated Red Blood Cells 0.0 0.0-0.19 % Immature Granulocyte % (Auto) 2.3 H 0-1 % Neutrophils (%) (Auto) 63.8 40.0-77.0 % Lymphocytes (%) (Auto) 19.5 L 21.0-51.0 % Monocytes (%) (Auto) 9.3 3.0-13.0 % Eosinophils (%) (Auto) 4.9 0.0-8.0 % Basophils (%) (Auto) 0.2 0.0-5.0 % Neutrophils # (Auto) 4.2 1.8-7.7 K/uL Lymphocytes # (Auto) 1.3 1.0-4.8 K/uL Monocytes # (Auto) 0.6 0.1-1.0 K/uL Eosinophils # (Auto) 0.32 0.00-0.70 K/uL Basophils # (Auto) 0.01 0.00-0.20 K/uL Absolute Immature Granulocyte (auto 0.15 0-1 K/uL Chemistry Labs: Test 08/30/25 16:21 08/30/25 02:15 Range/Units Whole Blood Glucose 198 H 70-110 MG/DL Sodium Level 139 136-145 mmol/L Potassium Level 4.2 3.5-5.1 mmol/L Chloride Level 101 101-111 mmol/L Carbon Dioxide Level 32 21-32 mmol/L Blood Urea Nitrogen 10 7-18 mg/dL Creatinine 0.6 0.5-1.0 mg/dL Glomerular Filtration Rate Calc 104 >90 mL/min Random Glucose 214 H 70-105 mg/dL Total Calcium 8.1 L 8.5-10.1 mg/dL Ionized Calcium 1.12 L 1.15-1.33 MMOL/L Phosphorus Level 3.4 2.5-4.9 mg/dL Magnesium Level 1.60 L 1.80-2.40 mg/dL Total Bilirubin 0.5 0.2-1.0 mg/dL Aspartate Amino Transf (AST/SGOT) 30 10-37 U/L Alanine Aminotransferase (ALT/SGPT) 25 12-78 U/L Alkaline Phosphatase 223 H 50-136 U/L Total Protein 6.5 6.0-8.3 g/dL Albumin 1.8 L 3.5-5.0 g/dL DIAGNOSTICS / RADIOLOGY RESULTS: [[facility] [address] [place] [id number] IMAGING REPORT Signed PATIENT: LUL ARTHUR MR#: [id number] : 1965 SEX: F AGE: 60 LOCATION: 2BH ORDER 2300 STATUS: ADM IN REPORT#: [id number] SERVICE 0600 REASON: devices post cabg ORDERING PHYSICIAN: [facility] PROCEDURE: CXR1VW - CHEST 1VW EXAM: CHEST RADIOGRAPH, SINGLE VIEW Technique: A portable anteroposterior single-view radiograph of the chest was obtained. Sensitivity for small pleural effusions and small pneumothoraces is limited on a single frontal projection. Comparison is made with the single-view chest radiograph from August 29, 2025 at 12:30 p.m. [place] Daylight Time. Clinical Information: Post???coronary artery bypass grafting status with multiple devices in place; assessment of tube and catheter positions and cardiopulmonary status. Findings: A small left pleural effusion is present. No pneumothorax is identified on this single-view examination. The cardiac silhouette is mildly enlarged and unchanged. There is pulmonary vascular congestion with early interstitial and mild alveolar pulmonary edema, unchanged. Median sternotomy wires and mediastinal surgical clips are present. A right internal jugular [place]???Guillaume catheter is present with the tip projecting over the expected location of the main pulmonary artery, unchanged. An Impella left ventricular assist device is present with the inflow portion projecting over the left ventricular cavity and the outflow portion over the ascending aorta; no radiographic complication is identified. An endotracheal tube is in place with the tip approximately 4.3 centimeters above the jerica. No acute or aggressive osseous abnormality is identified. Impression: * Lines and devices: Right internal jugular [place]???Guillaume catheter with tip over the main pulmonary artery; Impella left ventricular assist device in expected position; endotracheal tube tip approximately 4.3 centimeters above the jerica. No radiographic device-related complication identified. * Mild cardiomegaly with pulmonary vascular congestion and early interstitial and mild alveolar pulmonary edema, unchanged from August 29, 2025 at 12:30 p.m. [place] Daylight Time. * Small left pleural effusion. * No pneumothorax detected on this single-view examination. * Status post median sternotomy. /[place] DICTATED BY: DIONTE LEBRON MD DATE: 08/30/251431 ELECTRONICALLY SIGNED BY: DIONTE LEBRON MD DATE: 08/30/25 143 ] PLAN NEURO: Minimize central acting medications as possible. Fall Precautions. Well lighted room through the day and minimize interruptions through the night to prevent acute delirium. PULMONARY: Supplemental 02 as needed Titrate Fio2 to keep Spo2 > or = 90% DuoNebs and CPT as needed IS hourly while awake for pulmonary hygiene CARDIOVASCULAR: Follow hemodynamics. Titrate vasopressor to keep MAP >65 or systolic blood pressure >95mmHg GI & NUTRITION: Continue nutritional support Aspirations precautions Prokinetic agents and laxatives as needed Clear liquid diet as tolerated KIDNEYS & ELECTROLYTES: Strict monitoring of intake and output Daily weights Avoid nephrotoxic agents Monitor electrolytes and replace as needed Goal urine output of 30mL/hr or 0.5mL/kg/hr ENDOCRINE: Maintain blood glucose between 100-180 at all times. Insulin sliding scale for blood glucose management INFECTIOUS DISEASE: Trend temperature. Astudillo-culture if febrile. HEMATOLOGY & COAGULATION: Monitor H&H. Keep Hgb > 7 Transfuse 1 unit of PRBC for Hgb < 7 Transfuse 1 pack of platelets of platelets < 20, 000 Watch for any signs and symptoms of bleeding SKIN: Pressure ulcer prevention per facility protocol Rehab: PT/OT Prophylaxis: GI: PPI DVT: SCDs patient on heparin drip Code Status: Full Resuscitation Disposition: ICU Critical care time This patient required multiple bedside visits to manage the patient, review blood gases, coordinate with respiratory, nurses, review radiology exams, talk to the family members and discuss advanced directives. I personally spent 35 minutes of critical care time in treatment of this patient. This includes patient management, time at bedside, time reviewing tests, labs, appropriate images and studies, documentation, and patient care coordination. This time excludes separately billable procedures. ATTESTATION BY PHYSICIAN I attest that I reviewed and discussed the case with the Physician Cycle Manager as well as agree with the Physician Cycle Manager's findings, plans of care, and documentation above. James Joshi MD, [facility] Aug 30, 2025 19:19
[2025-08-31] VITALS (98 sets, daily range): BP systolic 27–292; BP diastolic 26–289; PULSE 32–111; RESP 13–50; TEMP 98.1–99.2; O2SAT 96–100
--- NOTE | 2025-08-31 03:15 | PN ---
TIME: 2 p.m. SUBJECTIVE: The patient is a 60-year-old female with status post coronary artery bypass grafting, recovering well. She has her Impella removed yesterday. PHYSICAL EXAMINATION: NEUROLOGIC: Alert and oriented, but still intubated at this point. CARDIAC: S1, S2. The patient is still needing intermittent pacer support; however, she has recovered from her bradycardia that she experienced the other day. RESPIRATORY: Clear to auscultation bilaterally. ASSESSMENT AND PLAN: * Coronary artery disease, status post Impella-assisted catheterization. The Impella has been removed with repair of the femoral artery, recovering well. He still has intermittent bradycardia, but nothing of major concern. It appears that the arrhythmia has stabilized at this point. * Volume overload, on Lasix b.i.d. * Hypercholesterolemia, on high statin. * Acute blood loss anemia. No evidence of active bleeding at this time. TID: [id number] RECEIPT: [id number]
[2025-08-31 04:44] LABS: ABG BASE EXCESS 5.3 mmol/L (-2.0-3.0); ABG HCO3 29.1 mmol/L (21.0-28.0); ABG OXYGEN SATURATION 97.7 % (94.0-98.0); ABG PCO2 40 mmHg (32-45); ABG PH 7.484 (7.350-7.450); PO2, ARTERIAL BG 95.8 mmHg (83.0-108.0); TEMPERATURE, CELSIUS BG 37.0 CELSIUS (35.5-37.0)
--- NOTE | 2025-08-31 06:52 | PN ---
[facility] Cardiology Progress Note CARDIOLOGY PROGRESS NOTE AUGUST 31, 2025 Problems: 1. Non ST-elevation myocardial infarction in the setting of cocaine abuse complicated by cardiogenic shock requiring Impella support 2. Severe multivessel CAD with acute occlusion of the right coronary artery unable to be revascularized percutaneously with preop ejection fraction of 50% by echo status post aortocoronary bypass graft surgery with a BRO graft to the LAD saphenous graft to the obtuse marginal artery and saphenous graft to the 2nd diagonal artery 3. Ventricular standstill after anesthesia induction for removal of Impella device August 29 2025 4. Remote history of CVA 5. Diabetes mellitus type 2 uncontrolled on admission 6. Tobacco dependence 7. Dyslipidemia 8. Noncompliance with medication and follow up The patient remains intubated sedated. She appears anxious the however tube removed. Blood pressure is running 80 to 90s systolic by arterial line but 110- 120 systolic by blood pressure cuff. Heart rate is in the 80s the patient is afebrile. Hemoglobin 9.1 platelet count [id number]. Potassium 4.2 BUN 10 creatinine 0.6. To continues on epinephrine. Telemetry shows sinus rhythm in the 80s. The patient continues on aspirin atorvastatin famotidine furosemide infusion heparin protocol insulin scale antibiotics . Urine output with the f urosemide infusion was seven 0.1 L. chest x-ray today shows cardiomegaly blunting of the left costophrenic angle. Post sternotomy changes are noted. Left atrial appendage clip is present. Pulmonary vascular pattern appears to be improving. Endotracheal tube was in good position above the jerica. Temporary pacing lead appears to be in the right atrium. She has not required pacing over the weekend. Insert to wean from the ventilator and pressor support as tolerated. CHIRAG GATES MD Aug 31, 2025 06:52
--- NOTE | 2025-08-31 10:35 | PN ---
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 Pt is tolerating CPAP trials. She is awake alert and oriented x 3. No major overnight events. Continues with Levophed gtt at 0.06mcg/kg/min. CVP of 12, Blood pressure of 101/68. ABG shows PH of 7.47/ope843/po2 81/bicarb 26.5. WBC 12.4, HH stable. Plt 196K. Magnesium 1.20 covered per magnesium protocol. Chest XR with some improvement. Rt knee swelling and warm to touch. XR and US ordered. Plan: Follow CT surgeon recs Daily sedation vacation CPAP trials plan extubation for today Continues on Lasix gtt per CV continue to wean lasix gtt Follow I&Os IV Zosyn for possible aspiration pneumonia Daily chest x-ray ABX: Completed 10 days of Rocephin and 9 days of Vancomycin. Ancef completed x 3. Lines/tubes: [place] chest tube, Sara, FC ABG and chest XR in am Ventilator settings: SIMV, volume control, tidal volume of 500 respiratory rate of 12 FiO2 of 40% and PEEP of 5. Total critical care time spent 35 minutes, this excludes any procedures performed or any time spent in educational or teaching. REVIEW OF SYSTEMS: 12 point ROS reviewed with patient. Pertinent positives mentioned above. Otherwise negative. PHYSICAL EXAM: GENERAL: alert, weak, awake oriented x 3 HEENT: intubated moist mucosa NECK: Supple, no JVD, trachea midline LUNGS: Diminished breath sounds bilaterally. No wheezes HEART: Normal S1 and S2, without murmurs ABD: Abdomen soft, nontender. Bowel sounds present EXT: No clubbing cyanosis or edema. TVP rt groin, rt knee pain and swelling NEURO: Alert and oriented to person, follows commands Vital Signs (last 8hr) Date Time Temp Pulse Resp B/P (MAP) Pulse Ox O2 Delivery O2 Flow Rate FiO2 08/31/25 09:34 30 08/31/25 09:18 86 40 08/31/25 07:43 99 Ventilator+ 40 08/31/25 07:00 84 14 74/61 (65) 08/31/25 06:45 83 13 140/74 (96) 69/59 (62) 08/31/25 06:44 84 40 08/31/25 06:30 85 15 66/53 (57) 08/31/25 06:15 85 16 127/71 (89) 72/61 (65) 08/31/25 06:00 86 15 72/62 (65) 08/31/25 05:45 83 14 136/72 (93) 80/65 (70) 08/31/25 05:30 87 17 79/62 (68) 08/31/25 05:15 83 16 123/65 (84) 100/77 (85) 08/31/25 05:00 85 17 102/79 (87) 08/31/25 04:45 85 20 107/60 (76) 40 97/85 (89) 08/31/25 04:30 89 50 40 91/77 (82) 08/31/25 04:15 85 16 114/64 (81) 40 292/289 (290) 08/31/25 04:00 98.2 08/31/25 04:00 99 Ventilator+ 40 08/31/25 04:00 86 14 98 40 86/72 (77) 08/31/25 03:45 85 15 116/66 (83) 99 40 75/52 (60) 08/31/25 03:30 88 13 100 40 71/52 (58) 08/31/25 03:15 84 14 123/66 (85) 100 40 84/55 (65) 08/31/25 03:12 85 40 08/31/25 03:00 83 15 100 40 80/57 (65) 08/31/25 02:45 83 15 143/80 (101) 100 40 93/73 (80) LABS: Hematology Labs: Test 08/30/25 02:15 Range/Units White Blood Count 7.6 4.8-10.8 K/uL Red Blood Count 2.93 L 4.00-5.50 MIL/uL Hemoglobin 9.1 L 12.0-16.0 g/dL Hematocrit 27.4 L 36-48 % Mean Corpuscular Volume 93.5 79-99 fL Mean Corpuscular Hemoglobin 31.1 27.0-33.0 pg Mean Corpuscular Hemoglobin Concent 33.2 32.0-36.0 g/dL Red Cell Distribution Width 18.9 H 11.0-15.5 % Platelet Count 132 130-400 K/uL Mean Platelet Volume 10.6 H 7.5-10.5 fL Nucleated Red Blood Cells 0.0 0.0-0.19 % Chemistry Labs: Test 08/30/25 21:25 08/30/25 02:15 Range/Units Whole Blood Glucose 158 H 70-110 MG/DL Sodium Level 139 136-145 mmol/L Potassium Level 4.2 3.5-5.1 mmol/L Chloride Level 101 101-111 mmol/L Carbon Dioxide Level 32 21-32 mmol/L Blood Urea Nitrogen 10 7-18 mg/dL Creatinine 0.6 0.5-1.0 mg/dL Glomerular Filtration Rate Calc 104 >90 mL/min Random Glucose 214 H 70-105 mg/dL Total Calcium 8.1 L 8.5-10.1 mg/dL Ionized Calcium 1.12 L 1.15-1.33 MMOL/L Phosphorus Level 3.4 2.5-4.9 mg/dL Magnesium Level 1.60 L 1.80-2.40 mg/dL Total Bilirubin 0.5 0.2-1.0 mg/dL Aspartate Amino Transf (AST/SGOT) 30 10-37 U/L Alanine Aminotransferase (ALT/SGPT) 25 12-78 U/L Alkaline Phosphatase 223 H 50-136 U/L Total Protein 6.5 6.0-8.3 g/dL Albumin 1.8 L 3.5-5.0 g/dL DIAGNOSTICS / RADIOLOGY RESULTS: [ ] PLAN NEURO: Minimize central acting medications as possible. Fall Precautions. Well lighted room through the day and minimize interruptions through the night to prevent acute delirium. PULMONARY: Supplemental 02 as needed Titrate Fio2 to keep Spo2 > or = 90% DuoNebs and CPT as needed IS hourly while awake for pulmonary hygiene CARDIOVASCULAR: Follow hemodynamics. Titrate vasopressor to keep MAP >65 or systolic blood pressure >95mmHg GI & NUTRITION: Continue nutritional support Aspirations precautions Prokinetic agents and laxatives as needed Clear liquid diet as tolerated KIDNEYS & ELECTROLYTES: Strict monitoring of intake and output Daily weights Avoid nephrotoxic agents Monitor electrolytes and replace as needed Goal urine output of 30mL/hr or 0.5mL/kg/hr ENDOCRINE: Maintain blood glucose between 100-180 at all times. Insulin sliding scale for blood glucose management INFECTIOUS DISEASE: Trend temperature. Astudillo-culture if febrile. HEMATOLOGY & COAGULATION: Monitor H&H. Keep Hgb > 7 Transfuse 1 unit of PRBC for Hgb < 7 Transfuse 1 pack of platelets of platelets < 20, 000 Watch for any signs and symptoms of bleeding SKIN: Pressure ulcer prevention per facility protocol Rehab: PT/OT Prophylaxis: GI: PPI DVT: SCDs patient on heparin drip Code Status: Full Resuscitation Disposition: ICU Critical care time This patient required multiple bedside visits to manage the patient, review blood gases, coordinate with respiratory, nurses, review radiology exams, talk to the family members and discuss advanced directives. I personally spent 35 minutes of critical care time in treatment of this patient. This includes patient management, time at bedside, time reviewing tests, labs, appropriate images and studies, documentation, and patient care coordination. This time excludes separately billable procedures. ATTESTATION BY PHYSICIAN I have evaluated the patient chart, medical records, and spoke with appropriate staff. I reviewed the documentation, medical decision making, and treatment plan as noted by the mid-level provider above. I agree with the findings and plan of care. Ata Foster MD, [facility] Aug 31, 2025 10:35
--- NOTE | 2025-08-31 10:37 | PN ---
[facility] PROGRESS NOTE Date of Service: Aug 31, 2025 Time of Service: 10:32 SUBJECTIVE: This is a 60-year-old female with underlying history of obesity, coronary artery disease, poorly controlled type 2 diabetes mellitus, history of anemia, history of cocaine use, tobacco use disorder, history of CVA in 2008, who presented to the ER for further evaluation of severe substernal chest pain and shortness of breadth. Patient reports having history of cocaine use with last use of cocaine yesterday. She reports having severe substernal chest pain that started today in it has been associated with dizziness, and generalized malaise. Pain is 10/ 0 in severity. Patient denies any syncope or fall. She has been having lightheadedness with ambulation. She has not been able to follow up with Cardiology as outpatient. She has a previous history of abnormal CT coronary angiography when she was hospitalized in 04/2025 and she was treated medically. With regards to type 2 diabetes mellitus, she reports being on metformin as ou tpatient. On presentation to the hospital, patient was noted to be hypotensive with blood pressure of 80/60 with heart rate of 40 with EKG showing complete heart block. [place] [address], hemoglobin 12.4, platelet count of [id number]. BMP showed sodium of 133, potassium 4.8, chloride of 99, BUN of 21, creatinine 1.0, blood glucose of 403, [place] [address]. Chest x-ray showed no acute infiltrates. Patient will be admitted for further management of cardiogenic shock, NSTEMI, complete heart block with history of poorly controlled type 2 diabetes mellitus. Patient will be emergently taken to the [facility] for cardiac catheterization/ PCI and tentative plan for MCS support. Patient will be admitted to intensive care unit and she remains critically ill. 08/14 patient remains critically ill requiring Impella and dopamine support. UDS has demonstrated benzos and cocaine 08/15 patient remains on Impella 08/16 patient appears to be resting comfortably in bed. She remains on Impella and dopamine support. She reports she would like to be bathed and wants her hair combed significant and she is feeling better 08/17 patient is on GI soft diet tolerating well. She remains on Impella support 08/18 patient is resting comfortably in bed. She remains on Impella. Tolerating oral intake. 08/19 hemoglobin dropped to 6.5 from 7.0-7.5 yesterday. I agree with transfusing 1 unit PRBC. Patient remains on Impella. Patient is resting comfortably in bed. 08/20 patient is resting comfortably in bed. She remains on Impella support pending recovery for CABG. 08/21 patient underwent CABG x3 yesterday, no complications reported patient remains on Impella the patient is on norepinephrine, amiodarone, dopamine, insulin drip 08/22 postop day 2. From CABG x3. Patient does awaken to verbal stimulation and states she has some chest pain and slight shortness for breath she feels the pain as incisional from her open heart procedure. He is on p.o. amiodarone and being weaned off norepinephrine. 08/23 postop day 3 from CABG x3. Patient is in bed visiting with her son at the bedside. She states she has no shortness for breath, she does have some incisional chest discomfort, no nausea or vomiting or diarrhea. She is off nor epinephrine drip and remains with the Impella assist. 08/24 patient is seen and examined at bedside, discussed with the RN, no acute events overnight, remains with the Impella support, postoperative day four from CABG x3. She is awake, following commands. Off vasopressors. Remains on heparin drip and sodium bicarbonate drip. Continue to follow critical Care and Cardiothoracic input and recommendation. 08/25 PATIENT IS SEEN AND EXAMINED AT BEDSIDE, DISCUSSED WITH THE RN, NO ACUTE EVENTS OVERNIGHT, PATIENT FOLLOWING COMMANDS, SHE REMAINS WITH THE IMPELLA SUPPORT, CHEST TUBE IN PLACE, POSTOPERATIVE DAY FIVE, STATUS POST CABG. CU RRENTLY OFF PRESSORS, ON HEPARIN DRIP. CONTINUE TO FOLLOW CRITICAL CARE AND CARDIOTHORACIC INPUT AND RECOMMENDATIONS. POSSIBLE REMOVAL OF IMPELLA SUPPORT TODAY. 08/26 patient is seen and examined at bedside, discussed with the RN, no acute events overnight, remains with the Impella support, postoperative day four from CABG x6. She is awake, following commands. Off vasopressors. Remains on heparin drip, continue with chest tube in place, continue to follow Cardiothoracic input and recommendation. 08/27 patient is seen and examined at bedside, case discussed with the RN, no acute events overnight, patient awake, following commands, still with the Impella support, status post CABG. No chest pain, shortness shortness for breath, no nausea, no vomiting. Continue with chest tube in place. BP 132/74, afebrile, saturating 99% 4 L nasal cannula. CBC with a hemoglobin 9.0, hematocrit 28.1, WBC 12.2, with a platelet count of 152. Sodium 140, potassium 4.0, BUN of 12, creatinine 0.6, initially 2.10. Cardiology input noted and appreciated, echocardiogram ordered, we will follow report. Continue to follow Cardiothoracic input and recommendation. 08/28 patient is seen and examined at bedside, case discussed with the RN, no acute events overnight, patient remains admitted to the ICU, the time of my visit, awake, following command, NPO, she is scheduled to be taken to the operating room today for removal of Impella support by cardio thoracic surgeons, we will continue to follow input and recommendation. Limited 2D echo performed yesterday shows left ventricular cavity size is normal, Impella device measuring 5.6 cm into LV. Left ventricular ejection fraction 55-60%, no pericardial effusion. 08/29 patient is seen and examined at bedside, case discussed with the RN, no acute events overnight, patient remains admitted to the ICU, the time of my visit, awake, following command, NPO, she is scheduled to be taken to the operating room today for removal of Impella support by cardio thoracic surgeons, we will continue to follow input and recommendation. Limited 2D echo performed yesterday shows left ventricular cavity size is normal, Impella device measuring 5.6 cm into LV. Left ventricular ejection fraction 55-60%, no pericardial effusion. 08/30 patient is seen and examined at bedside, discussed with the RN, no acute events overnight, status post interval removal of Impella and placement of p ericardial patch in the operating room by Cardiothoracic surgeon, 08/29/2025, tolerated the procedure well. Patient will remain admitted to the ICU, we will continue to follow Cardiothoracic input and recommendation. Follow a.m. labs. Continue Lasix, follow intake and output, daily chest x-ray, continue heparin drip, follow critical care input and recommendation. Patient completed 10 days of Rocephin and a dose of vancomycin. Completed three days of Ancef. 08/31 patient is seen and examined at bedside, discussed with the RN, no acute events overnight, patient remains admitted to the ICU, now she is intubated, mechanical ventilation, however awake, following commands, on low-dose Precedex, also on Lasix drip, Levophed drip, patient is status post interval removal of Impella support device per Cardiothoracic surgeon. Tolerated well. Hemoglobin today 9.1, hematocrit 27.4, ABG pH 7.48, pCO2 40, PO2 95.8, bicarb 29.1, chest x-ray pending. Continue to follow Cardiothoracic input recommendation, for continue care input and recommendation terms of extubation, wean off Levophed. REVIEW OF SYSTEMS CONSTITUTIONAL: generalized fatigue, malaise NEUROLOGICAL: Denies headache, amaurosis fugax, motor weakness, sensory deficit, vertigo/spinning sensation, gait abnormalities, or tremors. ENT: No hearing loss, otalgia, otorrhea, rhinitis, rhinorrhea, hoarseness, or sore throat. CARDIOVASCULAR: Mild incisional chest pain, no shortness breath PULMONARY: Denies any shortness of breath, cough, phlegm/sputum, hemoptysis, pleuritic chest pain. SLEEP: Denies morning headaches, daytime somnolence or napping. Denies difficulty falling asleep, staying asleep, waking from sleep. Denies knowledge of snoring. GASTROINTESTINAL: No nausea, Denies any type of dysphagia to either liquids or solids. Denies vomiting, pyrosis, early satiety, abdominal pain, diarrhea, constipation, or changes in stool consistency or caliber. Denies coffee-ground emesis, hematemesis, hematochezia, or melanotic stools. GENITOURINARY: Denies frequency, urgency, nocturia, hematuria or incontinence (Storage/Irritative symptoms.) Low urinary stream, straining to void, urinary intermittency or hesitancy, splitting of the voiding stream, terminal dribbling. ENDOCRINOLOGIC: Denies polyuria, polydipsia, polyphagia or heat/cold intolerances. HEMATOLOGIC: Denies thrombophilia/previous clots, or coagulopathy/bleeding disorders. ONCOLOGIC: Denies personal history of malignancy. DERMATOLOGIC: Denies rashes or pruritus. PSYCHIATRIC: Denies any suicidal or homicidal ideation. Denies hallucinations. PHYSICAL EXAM GENERAL APPEARANCE: Intubated, mechanical ventilation, awake, following commands, ET tube in place. NEUROLOGICAL: Cranial nerves II-XII grossly intact. Motor is 5/5 in bilateral upper and lower extremities proximal to distal. No sensory deficits. HEENT: Face is symmetric. Pupils are equal and reactive. Extraocular movements are intact. NECK: Supple. No JVD. No thyromegaly. No submental, submandibular, pre- /postauricular, occipital or supraclavicular lymphadenopathy. CHEST: Normal chest expansion. No Telemetry. LUNGS: minimal crackles noted of the bilateral lung bases CARDIOVASCULAR: Regular. S1 and S2 normal. No appreciable rubs, murmurs or gallops. ABDOMEN: Soft, nontender, and nondistended. There is no rebound, voluntary guarding, or rigidity. : Deferred. No Coombs. EXTREMITIES: trace edema noted of the bilateral lower extremities SKIN: No skin breakdown. Vital Signs (last 8hr) Date Time Temp Pulse Resp B/P (MAP) Pulse Ox O2 Delivery O2 Flow Rate FiO2 08/31/25 09:34 30 08/31/25 09:18 86 40 08/31/25 07:43 99 Ventilator+ 40 08/31/25 07:00 84 14 74/61 (65) 08/31/25 06:45 83 13 140/74 (96) 69/59 (62) 08/31/25 06:44 84 40 08/31/25 06:30 85 15 66/53 (57) 08/31/25 06:15 85 16 127/71 (89) 72/61 (65) 08/31/25 06:00 86 15 72/62 (65) 08/31/25 05:45 83 14 136/72 (93) 80/65 (70) 08/31/25 05:30 87 17 79/62 (68) 08/31/25 05:15 83 16 123/65 (84) 100/77 (85) 08/31/25 05:00 85 17 102/79 (87) 08/31/25 04:45 85 20 107/60 (76) 40 97/85 (89) 08/31/25 04:30 89 50 40 91/77 (82) 08/31/25 04:15 85 16 114/64 (81) 40 292/289 (290) 08/31/25 04:00 98.2 08/31/25 04:00 99 Ventilator+ 40 08/31/25 04:00 86 14 98 40 86/72 (77) 08/31/25 03:45 85 15 116/66 (83) 99 40 75/52 (60) 08/31/25 03:30 88 13 100 40 71/52 (58) 08/31/25 03:15 84 14 123/66 (85) 100 40 84/55 (65) 08/31/25 03:12 85 40 08/31/25 03:00 83 15 100 40 80/57 (65) 08/31/25 02:45 83 15 143/80 (101) 100 40 93/73 (80) LABS: Laboratory: Test 08/31/25 04:42 08/30/25 21:25 08/30/25 12:00 08/30/25 02:15 Range/Units Blood Gas Specimen Type Arterial Arterial Blood pH 7.484 H 7.350-7.450 Arterial Blood Partial Pressure CO2 40 32-45 mmHg Arterial Blood Partial Pressure O2 95.8 83.0-108.0 mmHg Arterial Blood HCO3 29.1 H 21.0-28.0 mmol/L Arterial Blood Oxygen Saturation 97.7 94.0-98.0 % Arterial Blood Base Excess 5.3 H -2.0-3.0 mmol/L Blood Gas Temperature 37.0 35.5-37.0 CELSIUS Blood Gas Respiration Rate 12.0 min. Blood Gas Vent Mode SIMV LR ROOM AIR FiO2 40.0 % Blood Gas Tidal Volume 500 ml Blood Gas PEEP 5 cm H2O Blood Gas Specimen Comment LIBORIO RN Whole Blood Glucose 158 H 70-110 MG/DL Hemoglobin (Blood Gas) 10.4 L 12.0-16.0 g/dL Sodium (Blood Gas) 135 L 136-145 MMOL/L Bedside Potassium (Blood Gas) 4.1 3.4-4.5 MMOL/L Bedside Chloride (Blood Gas) 100 98-107 MMOL/L Bedside Glucose (Blood Gas) 219 H 65-95 MG/DL Bedside Ionized Calcium (Blood Gas) 1.14 L 1.15-1.33 MMOL/L Bedside Lactic Acid (Blood Gas) 1.03 H 0.36-0.75 MMOL/L White Blood Count 7.6 4.8-10.8 K/uL Red Blood Count 2.93 L 4.00-5.50 MIL/uL Hemoglobin 9.1 L 12.0-16.0 g/dL Hematocrit 27.4 L 36-48 % Mean Corpuscular Volume 93.5 79-99 fL Mean Corpuscular Hemoglobin 31.1 27.0-33.0 pg Mean Corpuscular Hemoglobin Concent 33.2 32.0-36.0 g/dL Red Cell Distribution Width 18.9 H 11.0-15.5 % Platelet Count 132 130-400 K/uL Mean Platelet Volume 10.6 H 7.5-10.5 fL Nucleated Red Blood Cells 0.0 0.0-0.19 % Sodium Level 139 136-145 mmol/L Potassium Level 4.2 3.5-5.1 mmol/L Chloride Level 101 101-111 mmol/L Carbon Dioxide Level 32 21-32 mmol/L Blood Urea Nitrogen 10 7-18 mg/dL Creatinine 0.6 0.5-1.0 mg/dL Glomerular Filtration Rate Calc 104 >90 mL/min Random Glucose 214 H 70-105 mg/dL Total Calcium 8.1 L 8.5-10.1 mg/dL Ionized Calcium 1.12 L 1.15-1.33 MMOL/L Phosphorus Level 3.4 2.5-4.9 mg/dL Magnesium Level 1.60 L 1.80-2.40 mg/dL Total Bilirubin 0.5 0.2-1.0 mg/dL Aspartate Amino Transf (AST/SGOT) 30 10-37 U/L Alanine Aminotransferase (ALT/SGPT) 25 12-78 U/L Alkaline Phosphatase 223 H 50-136 U/L Total Protein 6.5 6.0-8.3 g/dL Albumin 1.8 L 3.5-5.0 g/dL Current Medications Medications (Trade) Dose Ordered Sig/Elmer Route PRN Reason Start Time Stop Time Status Last Admin Dose Admin Acetaminophen (TYLenol 325MG TAB) 650 mg Q4H PRN PO Temp >38.3C(AFTER EXTUBATION) 08/20/25 17:00 09/19/25 16:59 Acetaminophen (TYLenol 325MG TAB) 650 mg Q6H PRN PO MILD PAIN (1-3) 08/13/25 16:30 09/12/25 16:29 08/23/25 11:01 650 MG Acetaminophen (TYLenol 500MG TAB) 500 mg Q6H PRN PO TEMP < 101.1 AND/OR HEADACHE 08/14/25 14:30 09/13/25 14:29 08/26/25 10:41 500 MG Acetaminophen (TYLenol 650MG SUPPOSITORY) 650 mg Q4H PRN RC Temp >38.3C WHILE INTUBATED 08/20/25 17:00 09/19/25 16:59 Acetaminophen (acetaMINOPHEN 1,000MG/100ML) 1,000 mg Q6H6 IVPB 08/21/25 12:00 09/20/25 11:59 08/31/25 06:17 1,000 MG Albumin Human 50 ml @ 0 mls/hr BID IV 08/18/25 09:00 08/23/25 08:59 DC 08/22/25 20:56 100 MLS/HR Albumin Human 250 ml @ 0 mls/hr AD PRN IV IF HEMODYNAMICALLY UNSTABLE 08/20/25 17:00 08/20/25 22:46 DC 08/20/25 22:46 0 MLS/HR Aminocaproic Acid 39581 mg/Sodium Chloride 310 ml @ 25 mls/hr AD IV 08/20/25 17:00 08/21/25 05:23 DC Aminocaproic Acid 36360 mg/Sodium Chloride 480 ml @ 0 mls/hr AD PRN IV BLEEDING CONTROL 08/20/25 08:00 09/19/25 07:59 Aminocaproic Acid 53371 mg/Sodium Chloride 480 ml @ 0 mls/hr AD PRN IV BLEEDING CONTROL 08/20/25 09:00 08/20/25 09:03 DC Amiodarone HCl (pacERONE 200MG) 200 mg BID PO 08/22/25 09:00 08/29/25 21:00 DC 08/28/25 20:25 200 MG Amiodarone HCl 360 mg/Dextrose 207.2 ml @ 33.3 mls/hr AD IV 08/20/25 21:00 08/20/25 21:05 DC Amiodarone HCl 540 mg/Dextrose 310.8 ml @ 16.7 mls/hr [id number] IV 08/21/25 03:00 08/27/25 06:20 DC 08/21/25 20:12 16.7 MLS/HR Amiodarone HCL/ Dextrose 207.2 ml @ 33.3 mls/hr AD IV 08/20/25 21:30 08/21/25 10:49 DC 08/20/25 21:24 33.3 MLS/HR Aspirin (Aspirin 81mg Chew Tab) 81 mg DAILY PO 08/14/25 09:00 09/13/25 08:59 08/28/25 09:13 81 MG Atorvastatin Calcium (LIPItor 40MG) 40 mg HS PO 08/13/25 21:00 09/12/25 20:59 08/28/25 20:26 40 MG Benzocaine (Cepacol Sore Throat Lozenge) 1 each Q4H PRN MM SORE THROAT 08/26/25 11:30 09/25/25 11:29 Bisacodyl (DulcoLAX) 10 mg DAILY RC 08/17/25 09:00 08/20/25 08:59 DC 08/18/25 07:58 10 MG Calcium Carbonate (Tums 500 Mg Chew Tab) 500 tab QID PRN PO HEARTBURN 08/19/25 12:00 08/20/25 16:32 DC 08/20/25 05:10 1 TAB Calcium Gluconate 1 gm/Sodium Chloride 60 ml @ 200 mls/hr AD PRN IV HYPOCALCEMIA 08/20/25 17:00 09/19/25 16:59 08/30/25 03:43 200 MLS/HR Cefazolin Sodium (Ancef) 2 gm ONCALL IVP 08/19/25 19:30 08/21/25 08:36 DC 08/20/25 16:30 2 GM Cefazolin Sodium (Ancef) 2 gm Q8H IVPB 08/20/25 22:00 08/21/25 14:01 DC 08/21/25 13:45 2 GM Ceftriaxone Sodium (Rocephin 2gm Inj) 2 gm Q24H IVPB 08/14/25 11:30 08/24/25 11:29 DC 08/23/25 12:16 2 GM Chlordiazepoxide HCl (LIBrium 25 MG CAP) 25 mg Q2H PRN PO ALCOHOL WITHDRAWAL PROTOCOL 08/14/25 14:30 08/20/25 16:32 DC 08/16/25 23:38 25 MG Chlordiazepoxide HCl (LIBrium 25 MG CAP) 50 mg Q1H PRN PO ALCOHOL WITHDRAWAL PROTOCOL 08/14/25 14:30 08/20/25 16:32 DC Dexmedetomidine/ Sodium Chloride (PRECEdex 400MCG/ 100ML-NS) 400 mcg PROTOCOL IV 08/20/25 20:30 09/19/25 20:29 08/31/25 06:18 400 MCG Dextrose (D50w) 50 ml AD PRN IV HYPOGLYCEMIA PROTOCOL 08/20/25 17:00 09/19/25 16:59 Dextrose (D50w) 50 ml AD PRN IV HYPOGLYCEMIA PROTOCOL 08/13/25 20:00 08/20/25 22:03 DC Diphenhydramine HCl (BENAdryl INJ) 25 mg ONCE PRN IV ITCHING 08/15/25 23:00 08/17/25 22:59 DC Docusate Sodium (COLace 100MG CAP) 100 mg BID PRN PO CONSTIPATION 08/14/25 11:00 09/13/25 10:59 Dopamine HCl/ Dextrose 250 ml @ 0 mls/hr PROTOCOL IV 08/13/25 16:00 09/12/25 15:59 08/16/25 16:41 3 MLS/HR Epinephrine HCl 10 mg/Sodium Chloride 250 ml @ 14.091 mls/ hr AD PRN IV POST-OP CARDIOVASCULAR ORDERS 08/20/25 17:00 08/21/25 10:49 DC Epinephrine HCl 10 mg/Sodium Chloride 250 ml @ 0 mls/hr AD PRN IV TITRATE 08/20/25 08:00 09/19/25 07:59 08/26/25 16:56 0 MLS/HR Epinephrine HCl 10 mg/Sodium Chloride 250 ml @ 0 mls/hr AD PRN IV TITRATE 08/20/25 09:00 08/20/25 09:03 DC Famotidine (Pepcid 20mg Vial) 20 mg BID IV 08/20/25 21:00 08/22/25 08:20 DC 08/21/25 20:17 20 MG Famotidine (Pepcid 20mg Tab) 20 mg BID PO 08/22/25 09:00 09/21/25 08:59 08/28/25 20:26 20 MG Folic Acid (FOLic ACID 1 MG TABLET) 1 mg DAILY PO 08/15/25 09:00 08/17/25 09:01 DC 08/17/25 07:46 1 MG Furosemide (LASix 20MG VIAL) 20 mg Q12H IV 08/21/25 11:30 08/22/25 14:17 DC 08/22/25 11:53 20 MG Furosemide (LASix 20MG VIAL) 20 mg Q12H IV 08/22/25 21:00 08/23/25 11:37 DC 08/23/25 09:50 20 MG Furosemide (LASix 20MG VIAL) 40 mg Q12H IV 08/22/25 21:00 08/22/25 14:32 DC Furosemide (LASix 40MG VIAL) 40 mg Q12H IV 08/23/25 11:30 08/30/25 11:08 DC 08/29/25 22:38 40 MG Furosemide 100 mg/ Sodium Chloride 100 ml @ 0 mls/hr PROTOCOL IV 08/30/25 11:30 09/29/25 11:29 08/30/25 12:08 10 MLS/HR Gabapentin (NEURontin 300 MG CAP) 300 mg TID PO 08/23/25 14:00 09/22/25 13:59 08/28/25 20:25 300 MG Glucagon (Glucagon 1mg Kit) 1 mg AD PRN IM HYPOGLYCEMIA PROTOCOL 08/20/25 17:00 09/19/25 16:59 Glucagon (Glucagon 1mg Kit) 1 mg AD PRN IM HYPOGLYCEMIA PROTOCOL 08/13/25 20:00 08/21/25 10:49 DC Heparin Sodium (Porcine) (HEParin 5,000 UNIT VIAL) *calculation based on ACTUAL B... AD PRN IV HEPARIN PROTOCOL 08/13/25 16:30 08/20/25 16:32 DC 08/17/25 04:46 3,175 UNIT Heparin Sodium/ Dextrose 250 ml @ 0 mls/hr PROTOCOL IV 08/21/25 11:30 09/20/25 11:29 08/28/25 15:28 10.54 MLS/HR Heparin Sodium/ Dextrose 250 ml @ 0 mls/hr Q6H IV 08/13/25 16:30 08/20/25 16:32 DC 08/19/25 22:03 11.78 MLS/HR Insulin Glargine (LANtus 100 UNITS/ML 10 ML VIAL) 5 units BID@0730,2100 SQ 08/16/25 21:00 08/17/25 09:31 DC 08/16/25 21:21 5 UNITS Insulin Glargine (LANtus 100 UNITS/ML 10 ML VIAL) 10 units HS SQ 08/13/25 21:00 08/14/25 06:16 DC 08/13/25 20:21 10 UNITS Insulin Glargine (LANtus 100 UNITS/ML 10 ML VIAL) 15 units DAILY 08/23/25 09:00 08/28/25 07:20 DC 08/27/25 08:35 15 UNITS Insulin Glargine (LANtus 100 UNITS/ML 10 ML VIAL) 20 units DAILY 08/14/25 09:00 08/15/25 07:24 DC 08/14/25 08:01 20 UNITS Insulin Glargine (LANtus 100 UNITS/ML 10 ML VIAL) 20 units DAILY SQ 08/28/25 09:00 09/27/25 08:59 Insulin Glargine (LANtus 100 UNITS/ML 10 ML VIAL) 30 units DAILY 08/15/25 09:00 08/16/25 07:19 DC 08/15/25 08:28 30 UNITS Insulin Glargine (LANtus 100 UNITS/ML 10 ML VIAL) 35 units DAILY 08/16/25 09:00 08/19/25 07:35 DC 08/18/25 07:59 35 UNITS Insulin Glargine (LANtus 100 UNITS/ML 10 ML VIAL) 42 units DAILY 08/19/25 09:00 08/20/25 06:22 DC 08/19/25 09:40 42 UNITS Insulin Glargine (LANtus 100 UNITS/ML 10 ML VIAL) 45 units DAILY 08/20/25 09:00 08/20/25 16:32 DC Insulin Human Lispro (HumaLOG LISpro 100 UNIT/ML 3ML) INSULIN SLIDING SCAL... ACHS 08/16/25 21:00 08/17/25 09:31 DC Insulin Human Regular (humuLIN R 100 UNIT/ML 3ML) 3 unit TIDAC SQ 08/27/25 07:30 08/27/25 20:56 DC 08/27/25 16:47 3 UNIT Insulin Human Regular (humuLIN R 100 UNIT/ML 3ML) 5 unit TIDAC SQ 08/14/25 17:00 08/15/25 07:24 DC 08/15/25 07:03 5 UNIT Insulin Human Regular (humuLIN R 100 UNIT/ML 3ML) 6 unit TIDAC SQ 08/28/25 07:30 09/27/25 07:29 08/30/25 17:14 6 UNIT Insulin Human Regular (humuLIN R 100 UNIT/ML 3ML) 8 unit TIDAC SQ 08/15/25 07:30 08/15/25 22:46 DC 08/15/25 16:02 8 UNIT Insulin Human Regular (humuLIN R 100 UNIT/ML 3ML) 10 unit TIDAC SQ 08/16/25 07:30 08/17/25 21:12 DC 08/17/25 16:09 10 UNIT Insulin Human Regular (humuLIN R 100 UNIT/ML 3ML) 12 unit TIDAC SQ 08/18/25 07:30 08/18/25 20:19 DC 08/18/25 16:39 12 UNIT Insulin Human Regular (humuLIN R 100 UNIT/ML 3ML) 16 unit TIDAC SQ 08/19/25 07:30 08/20/25 06:22 DC 08/19/25 16:47 16 UNIT Insulin Human Regular (humuLIN R 100 UNIT/ML 3ML) 17 unit TIDAC SQ 08/20/25 07:30 08/20/25 16:32 DC Insulin Human Regular (humuLIN R 100 UNIT/ML 3ML) INSULIN SLIDING SCAL... ACHS SQ 08/17/25 16:30 08/20/25 16:32 DC 08/19/25 21:31 8 UNIT Insulin Human Regular (humuLIN R 100 UNIT/ML 3ML) INSULIN SLIDING SCAL... ACHS SQ 08/22/25 11:30 08/22/25 21:32 DC 08/22/25 20:58 3 UNIT Insulin Human Regular (humuLIN R 100 UNIT/ML 3ML) INSULIN SLIDING SCAL... ACHS SQ 08/23/25 07:30 09/22/25 07:29 08/31/25 06:35 2 UNIT Insulin Human Regular (humuLIN R 100 UNIT/ML 3ML) INSULIN SLIDING SCAL... ACHS SQ 08/13/25 16:30 08/16/25 20:46 DC 08/16/25 20:01 4 UNIT Insulin Human Regular 100 unit/ Sodium Chloride 100 ml @ 0 mls/hr AD IV 08/20/25 17:00 08/22/25 16:59 DC 08/21/25 15:00 5 MLS/HR Iron Sucrose (VenoFER) 200 mg DAILY IV 08/21/25 13:00 08/23/25 09:43 DC 08/22/25 11:53 200 MG Iron Sucrose (VenoFER) 200 mg DAILY IV 08/23/25 09:00 08/26/25 08:57 DC 08/25/25 09:25 200 MG Lidocaine (Lidocaine Patch 4%) 1 each DAILY TP 08/19/25 09:00 09/18/25 08:59 08/30/25 10:12 1 EACH Lidocaine HCl/ Dextrose 250 ml @ 0 mls/hr PROTOCOL IV 08/21/25 00:00 09/20/25 00:00 Magnesium Sulfate 50 ml @ 12.5 mls/hr AD PRN IV MAG LEVEL LESS THAN 2.0 08/20/25 17:00 09/19/25 16:59 08/30/25 02:47 12.5 MLS/HR Magnesium Sulfate 50 ml @ 0 mls/hr PROTOCOL IV 08/13/25 16:30 08/21/25 10:49 DC 08/21/25 05:58 25 MLS/HR Midodrine (PROAMatine 5 MG TABLET) 5 mg Q6H6 PO 08/26/25 16:00 09/25/25 15:59 08/29/25 05:39 5 MG Morphine Sulfate (morPHINE 2MG SYG) 0.5 mg Q2H PRN IV MODERATE PAIN (4-6) 08/20/25 17:00 08/20/25 18:07 DC Morphine Sulfate (morPHINE 2MG SYG) 2 mg Q6H PRN IVP SEVERE PAIN (7-10) 08/19/25 18:00 08/20/25 16:32 DC 08/19/25 17:50 2 MG Morphine Sulfate (morPHINE 4MG SYG) 0.5 mg Q2H PRN IV MODERATE PAIN (4-6) 08/20/25 18:30 08/21/25 16:59 DC Morphine Sulfate (morPHINE 4MG SYG) 1 mg Q2H PRN IV SEVERE PAIN (7-10) 08/20/25 17:00 08/21/25 16:59 DC Morphine Sulfate (morPHINE 4MG SYG) 2 mg Q6H PRN IVP SEVERE PAIN (7-10) 08/14/25 09:30 08/19/25 12:29 DC 08/19/25 12:22 2 MG Multivitamins Therapeutic (Multivitamin Tablet) 1 tab DAILY PO 08/15/25 09:00 09/14/25 08:59 08/28/25 09:13 1 TAB Nitroglycerin/ Dextrose 0 ml @ 0 mls/hr AD IV 08/20/25 17:00 08/23/25 16:59 DC Nitroglycerin/ Dextrose 250 ml @ 0 mls/hr PROTOCOL IV 08/20/25 03:30 08/20/25 16:32 DC 08/20/25 03:12 1.5 MLS/HR Norepinephrine 250 ml @ 0 mls/hr PROTOCOL IV 08/13/25 15:30 08/20/25 08:31 DC Norepinephrine Bitartrate 250 ml @ 0 mls/hr AD PRN IV TITRATE 08/20/25 08:00 09/19/25 07:59 08/30/25 23:12 16 MLS/HR Norepinephrine Bitartrate 250 ml @ 0 mls/hr AD PRN IV TITRATE 08/20/25 09:00 08/20/25 09:03 DC Norepinephrine Bitartrate 8 mg/ Dextrose 250 ml @ 0 mls/hr AD PRN IV POST-OP CARDIOVASCULAR ORDERS 08/20/25 17:00 08/21/25 10:49 DC Ondansetron HCl (zoFRAN 4MG INJ) 4 mg Q4H PRN IV NAUSEA 08/14/25 14:30 08/20/25 16:32 DC 08/14/25 14:17 4 MG Ondansetron HCl (zoFRAN 4MG INJ) 4 mg Q6H PRN IV NAUSEA/VOMITING 08/20/25 17:00 09/19/25 16:59 08/29/25 12:47 4 MG Ondansetron HCl (zoFRAN 4MG INJ) 4 mg Q6H PRN IVP NAUSEA/VOMITING 08/13/25 16:30 08/14/25 14:08 DC Pantoprazole Sodium (PROTonix 40MG INJ) 40 mg Q12H IVP 08/17/25 16:30 08/20/25 16:32 DC 08/20/25 03:53 40 MG Pantoprazole Sodium (PROTonix 40MG INJ) 40 mg Q24H IVP 08/13/25 16:30 08/17/25 11:10 DC 08/16/25 16:07 40 MG Pharmacy Profile Note (Pharmacy Communication) 1 each PROTOCOL PRN MISC ETOH Withdrawal Score changes 08/14/25 14:30 08/14/25 14:08 DC Phenylephrine HCl 100 mg/Sodium Chloride 250 ml @ 0 mls/hr PROTOCOL IV 08/26/25 20:30 09/25/25 20:29 Piperacillin Sod/ Tazobactam Sod (Zosyn 3.375gm+NS 50ml) 3.375 gm Q8H IV 08/30/25 10:00 09/09/25 09:59 08/31/25 02:05 3.375 GM Polyethylene Glycol (MIRalax 3350 17 GM POWD.PACK) 17 gm DAILY PO 08/15/25 09:00 09/14/25 08:59 08/28/25 09:14 17 GM Potassium Phosphate 250 ml @ 42 mls/hr AD PRN IV LOW PHOS LEVEL 08/20/25 17:00 09/19/25 16:59 Potassium Chloride 100 ml @ 100 mls/hr AD PRN IV HYPOKALEMIA 08/20/25 17:00 09/19/25 16:59 08/29/25 06:34 100 MLS/HR Potassium Chloride 100 ml @ 100 mls/hr AD PRN IV POTASSIUM PROTOCOL 08/13/25 16:30 08/20/25 16:32 DC 08/16/25 16:07 100 MLS/HR Potassium Chloride (K-Dur/Klor-Con 20meq) 20 meq AD PRN PO POTASSIUM PROTOCOL 08/13/25 16:30 08/20/25 16:32 DC 08/15/25 08:23 20 MEQ Potassium Chloride (KCl 10% Elixir 20meq/15ml) 20 meq AD PRN PO POTASSIUM PROTOCOL 08/13/25 16:30 08/20/25 16:32 DC Promethazine HCl (Phenergan) 25 mg Q6H PRN PO NAUSEA 08/14/25 14:30 08/20/25 16:32 DC Propofol 100 ml @ 0 mls/hr AD PRN IV SEDATION 08/20/25 17:00 08/24/25 17:00 DC Sodium Bicarbonate 25 meq/Dextrose 1,000 ml @ 0 mls/hr Q0M IV 08/14/25 00:30 09/13/25 00:29 08/28/25 16:29 14 MLS/HR Sodium Bicarbonate 25 meq/Dextrose 1,000 ml @ 0 mls/hr Q0M IVP 08/14/25 00:30 08/14/25 00:15 DC Sodium Bicarbonate (Sodium Bicarb 50meq 50ml Vial) 50 meq AD PRN IV OTHER[SEE DOSING INSTRUCTIONS] 08/20/25 17:00 08/23/25 16:59 DC 08/21/25 01:19 50 MEQ Sodium Chloride 500 ml @ 500 mls/hr Q1H IV 08/20/25 00:33 08/20/25 03:16 DC 08/20/25 00:53 500 MLS/HR Sodium Chloride 500 ml @ 0 mls/hr AD IV 08/20/25 17:00 09/19/25 16:59 Sodium Chloride 1,000 ml @ 10 mls/hr ONCE IV 08/20/25 17:00 08/21/25 16:59 DC 08/20/25 22:31 10 MLS/HR Sodium Chloride (NS Flush 10ml) 10 ml Q8H PRN IVP IV LINE FLUSH 08/20/25 17:00 09/19/25 16:59 Thiamine HCl (Vitamin B-1) 300 mg DAILY IV 08/15/25 09:00 08/17/25 09:01 DC 08/17/25 07:46 300 MG Ticagrelor (BRILinta) 90 mg BID PO 08/14/25 09:00 08/14/25 21:19 DC 08/14/25 20:09 90 MG Tramadol HCl (UltRAM) 25 mg Q6H PRN PO MODERATE PAIN (4-6) 08/20/25 17:00 08/25/25 16:59 DC Tramadol HCl (UltRAM) 25 mg Q6H PRN PO MODERATE PAIN (4-6) 08/26/25 11:00 08/31/25 10:59 08/27/25 03:12 25 MG Tramadol HCl (UltRAM) 50 mg Q6H PRN PO SEVERE PAIN (7-10) 08/20/25 17:00 08/25/25 16:59 DC 08/25/25 09:24 50 MG Tramadol HCl (UltRAM) 50 mg Q6H PRN PO SEVERE PAIN (7-10) 08/26/25 11:00 08/31/25 10:59 08/29/25 05:39 50 MG Vancomycin HCl 250 ml @ 125 mls/hr Q12H IV 08/18/25 09:00 08/19/25 20:54 DC 08/19/25 09:39 125 MLS/HR Vancomycin HCl 250 ml @ 125 mls/hr Q12H IV 08/24/25 23:00 08/26/25 21:47 DC 08/26/25 11:47 125 MLS/HR Vancomycin HCl 250 ml @ 125 mls/hr Q8H IV 08/19/25 21:30 08/21/25 00:23 DC 08/20/25 22:26 125 MLS/HR Vancomycin HCl 250 ml @ 125 mls/hr Q8H IV 08/21/25 06:30 08/21/25 08:35 DC 08/21/25 08:15 125 MLS/HR Vancomycin HCl 250 ml @ 125 mls/hr Q8H IV 08/21/25 08:00 08/21/25 06:28 DC Vancomycin HCl 250 ml @ 125 mls/hr Q8H IV 08/21/25 16:30 08/24/25 16:54 DC 08/24/25 09:32 125 MLS/HR Vancomycin HCl (Vancomycin Protocol) 1 each AD IV 08/17/25 22:00 08/26/25 21:47 DC DIAGNOSTICS / RADIOLOGY: [ ] ASSESSMENT: Cardiogenic shock with lactic acidosis, POA NSTEMI/ACS, POA Complete heart block, POA History of multivessel coronary artery disease, POA History of cocaine use disorder, POA Severe nonketotic hyperglycemia, POA History of to poorly controlled type 2 diabetes mellitus, POA Lactic acidosis, POA History of anemia, POA History of gastritis, POA History of hypertension, POA History of PTSD/anxiety, POA Obesity, POA Medical noncompliance, POA PLAN: patient is seen and examined at bedside, discussed with the RN, no acute events overnight, patient remains admitted to the ICU, now she is intubated, mechanical ventilation, however awake, following commands, on low-dose Precedex, also on Lasix drip, Levophed drip, patient is status post interval removal of Impella support device per Cardiothoracic surgeon. Tolerated well. Hemoglobin today 9.1, hematocrit 27.4, ABG pH 7.48, pCO2 40, PO2 95.8, bicarb 29.1, chest x-ray pending. Continue to follow Cardiothoracic input recommendation, for continue care input and recommendation terms of extubation, wean off Levophed. NEURO: MINIMIZE CENTRAL ACTING MEDICATIONS POSSIBLE. FALL PRECAUTIONS. WELL LIGHTED ROOM THROUGH THE DAY AND MINIMIZE INTERRUPTIONS THROUGH THE NIGHT TO PREVENT ACUTE DELIRIUM. PULMONARY: SUPPLEMENTAL 02 NEEDED BIPAP NECESSARY, FOR RESPIRATORY DISTRESS TITRATE FIO2 TO KEEP SPO2 > OR = 90% DUONEBS AND CPT NEEDED IS HOURLY WHILE AWAKE FOR PULMONARY HYGIENE PRN OUT OF BED TO CHAIR TOLERATED MAINTAIN ASPIRATION PRECAUTIONS AT ALL TIMES CARDIOVASCULAR: FOLLOW HEMODYNAMICS. VITAL SIGNS PER FACILITY PROTOCOL GI & NUTRITION: CONTINUE NUTRITIONAL SUPPORT ASPIRATIONS PRECAUTIONS PROKINETIC AGENTS AND LAXATIVES NEEDED KIDNEYS & ELECTROLYTES: STRICT MONITORING OF INTAKE AND OUTPUT DAILY WEIGHTS AVOID NEPHROTOXIC AGENTS MONITOR ELECTROLYTES AND REPLACE NEEDED GOAL URINE OUTPUT OF 30ML/HR OR 0.5ML/KG/HR MEDICATIONS TO BE DOSED ACCORDING TO RENAL FUNCTION. AVOID CONTRAST IF POSSIBLE ENDOCRINE: MAINTAIN BLOOD GLUCOSE BETWEEN 100-180 AT ALL TIMES. INSULIN SLIDING SCALE FOR BLOOD GLUCOSE MANAGEMENT HYPOGLYCEMIA AND HYPERGLYCEMIA PROTOCOL IN PLACE INFECTIOUS DISEASE: TREND TEMPERATURE, WBC AND PROCALCITONIN LEVEL FOLLOW CULTURES, DEESCALATE ANTIBIOTICS SOON POSSIBLE. PANCULTURE IF NEW ONSET FEVER HEMATOLOGY & COAGULATION: MONITOR H&H. KEEP HGB > 7 TRANSFUSE 1 UNIT OF PRBC FOR HGB < 7 TRANSFUSE 1 PACK OF PLATELETS OF PLATELETS < 20, 000 WATCH FOR ANY SIGNS AND SYMPTOMS OF BLEEDING SKIN: PRESSURE ULCER PREVENTION PER FACILITY PROTOCOL SPECIALTY MATTRESS NEEDED ORTHO/REHAB CONTINUE PT/OT PRN: MEDICATIONS TYLENOL 650 MG PO EVERY 4 HRS FOR FEVER ZOFRAN 4 MG IV EVERY 6 HRS FOR N/V HYDRALAZINE 5 MG IV EVERY 4 HRS SYSTOLIC PRESSURE > 160 BOWEL REGIMENT: LACTULOSE 20 GM PO BID PRN CONSTIPATION SUPPORTIVE MEASURES: CONTINUE GI AND DVT PROPHYLAXIS DISPOSITION: PENDING IMPROVEMENT IN CLINICAL CONDITION ALL QUESTIONS ANSWERED TIME SPENT: > 35 MIN GEE MARTIN MD Aug 31, 2025 10:37
[2025-08-31 10:58] LABS: NUCLEATED RED BLOOD CELLS 0.0 % (0.0-0.19); PLATELET COUNT (AUTO) 196.0 K/uL (130-400); RED BLOOD CELL COUNT(AUTO) 3.3 MIL/uL (4.00-5.50); RED CELL DISTRIBUTION WIDTH 18.6 % (11.0-15.5); WHITE BLOOD COUNT (AUTO) 12.4 K/uL (4.8-10.8)
--- NOTE | 2025-08-31 11:00 | NUR ---
On hold per Marquita. Patient still with sheath in place and currently intubated. PT team to follow. Addendum: 08/31/25 at 1208 by WAQAS COATES PT Amended: Links added.
[2025-08-31 11:07] LABS: CREATININE 0.8 mg/dL (0.5-1.0); GLOMERULAR FILTR. RATE CALC 85.0 mL/min (>90); GLUCOSE,RANDOM 207.0 mg/dL (70-105); SODIUM SERUM 139.0 mmol/L (136-145); UREA NITROGEN, BLOOD 10.0 mg/dL (7-18)
[2025-08-31 11:11] LABS: ASPARTATE AMINOTRANSFERASE 31.0 U/L (10-37); TOTAL PROTEIN, SERUM 7.4 g/dL (6.0-8.3)
[2025-08-31] MEDS: LIDOCAINE/PRILOCAINE CREAM 5GM TUBE TP SCH (13:59)
--- NOTE | 2025-08-31 14:29 | NUR ---
[facility] Follow-up: Unable to assess patient at this d/t bedside being performed at this time. Addendum: 09/02/25 at 1120 by LINH MADISON RN RN/VIVIAN Amended: Links added.
[2025-08-31 15:03] LABS: ABG BASE EXCESS 2.8 mmol/L (-2.0-3.0); ABG HCO3 26.5 mmol/L (21.0-28.0); ABG OXYGEN SATURATION 95.7 % (94.0-98.0); ABG PCO2 37 mmHg (32-45); ABG PH 7.470 (7.350-7.450); CARBON MONOXIDE 1.0 % (0.5-1.5); PO2, ARTERIAL BG 81.1 mmHg (83.0-108.0); TEMPERATURE, CELSIUS BG 37.0 CELSIUS (35.5-37.0); VENT MODE, BG CPAP 5-5 (ROOM AIR)
--- NOTE | 2025-08-31 17:01 | HMCIMG ---
EXAM: CR CHEST, 1 VIEW CLINICAL HISTORY: Devices post CABG. COMPARISON: CR - CHEST 1VW - 08/30/25 04:33 EDT FINDINGS: LUNGS: Pulmonary vascular congestion with early interstitial and mild alveolar pulmonary edema, similar in distribution to prior study. No new focal consolidation or acute infiltrate. PLEURAL SPACES: Left pleural effusion appears increased in volume since prior examination. New small right pleural effusion is now present. No pneumothorax identified. MEDIASTINUM: Stable cardiomegaly with post-CABG median sternotomy wires and mediastinal surgical clips. The cardiomediastinal silhouette and mediastinal contours remain unchanged. BONES: No acute or aggressive appearing osseous lesion detected. IMPRESSION: * Interval increase in left pleural effusion compared to 08/30/25 04:33 EDT. * New small right pleural effusion compared to 08/30/25 04:33 EDT. * Stable cardiomegaly with pulmonary vascular congestion and mild interstitial/alveolar pulmonary edema compared to 08/30/25 04:33 EDT. * Post-CABG surgical changes and device positioning remain stable without radiographic complication compared to 08/30/25 04:33 EDT. COMPARISON SUMMARY: Compared with prior CR CHEST, 1 VIEW dated 08/30/25 04:33 EDT ??? interval progression of left pleural effusion, new right effusion, and otherwise stable postoperative cardiopulmonary findings and device positioning. /[place]
[2025-08-31] MEDS: BALSAM PERU/CASTOR OIL 60 GM TUBE TP SCH (21:26)
--- NOTE | 2025-08-31 21:58 | HMCIMG ---
EXAM: RIGHT KNEE RADIOGRAPH, 3 VIEWS Technique: Anteroposterior, lateral, and oblique radiographs of the right knee were obtained. Technical limitations: None apparent. Clinical Information: Knee swelling and pain. Findings: Joint spaces are reduced, greatest in the tibiofemoral compartments. Subtle periarticular osteophytes are present. No acute fracture is identified. No dislocation is identified. Alignment is anatomic on the obtained views. No radiopaque foreign body is identified. No large joint effusion is evident on this radiographic examination. Impression: * Mild to moderate osteoarthrosis of the right knee with joint space narrowing and subtle periarticular osteophytes. * No acute osseous abnormality or dislocation identified. /[place]
--- NOTE | 2025-08-31 22:05 | HMCIMG ---
EXAM: ULTRASOUND FOR DEEP VENOUS THROMBOSIS, RIGHT LOWER EXTREMITY CLINICAL HISTORY: Right leg pain and swelling. Postoperative case ??? status post great saphenous vein (GSV) removal with suspected postoperative seroma formation in the right thigh region. Evaluation requested for vascular patency, postoperative fluid collection, or secondary complications. TECHNIQUE: Real-time jones-scale, color Doppler, and spectral waveform ultrasound evaluation of the deep venous system of the right lower extremity performed, including compression assessment. COMPARISON: None provided. FINDINGS: DEEP VEINS: The common femoral, superficial femoral, and popliteal veins are echolucent, fully compressible, and demonstrate normal color Doppler flow and phasic spectral waveforms. The visualized calf veins are patent with normal flow and compressibility. No intraluminal thrombus or venous dilation identified. SUPERFICIAL VEINS / SURGICAL SITE: Post-surgical changes noted along the course of the great saphenous vein in the right thigh, consistent with prior GSV removal. No evidence of residual thrombus or superficial thrombophlebitis. SOFT TISSUES: No Garrett???s cyst or popliteal fossa collection. A small anechoic fluid collection is noted in the proximal medial thigh region near the prior surgical tract, likely representing a postoperative seroma. Surrounding soft tissue edema seen without abscess formation. IMPRESSION: * No evidence of deep venous thrombosis in the right lower extremity. * Post-surgical changes along the right thigh consistent with prior GSV removal. * Small postoperative seroma in the proximal medial thigh with mild adjacent soft tissue edema. * No popliteal fossa cyst or other abnormal collection. /[place]
[2025-09-01] VITALS (112 sets, daily range): BP systolic 24–150; BP diastolic 13–105; PULSE 89–102; RESP 11–33; TEMP 97.9–98.6; O2SAT 95–99
[2025-09-01 04:27] LABS: NUCLEATED RED BLOOD CELLS 0.0 % (0.0-0.19); PLATELET COUNT (AUTO) 218 K/uL (130-400); RED BLOOD CELL COUNT(AUTO) 3.24 MIL/uL (4.00-5.50); RED CELL DISTRIBUTION WIDTH 18.4 % (11.0-15.5); WHITE BLOOD COUNT (AUTO) 12.0 K/uL (4.8-10.8)
[2025-09-01 04:43] LABS: ASPARTATE AMINOTRANSFERASE 38.0 U/L (10-37); CREATININE 0.8 mg/dL (0.5-1.0); GLOMERULAR FILTR. RATE CALC 85.0 mL/min (>90); GLUCOSE,RANDOM 186.0 mg/dL (70-105); SODIUM SERUM 140.0 mmol/L (136-145); TOTAL PROTEIN, SERUM 7.2 g/dL (6.0-8.3); UREA NITROGEN, BLOOD 13.0 mg/dL (7-18)
--- NOTE | 2025-09-01 06:19 | PN ---
ADDENDUM added from Note ID [id number] TIME: Noon. SUBJECTIVE: The patient is a 60-year-old female status post coronary artery bypass grafting and left atrial appendage ligation. No major events overnight. PHYSICAL EXAMINATION: NEUROLOGIC: Alert and oriented with no deficits. CARDIAC: S1, S2. Regular rate and rhythm. RESPIRATORY: Clear to auscultation bilaterally. CHEST: Incision is clean, dry and intact. ASSESSMENT AND PLAN: * Coronary artery disease, status post coronary artery bypass graft, on aspirin, statin, beta-santos. The patient is still requiring low-dose epinephrine. We will continue to wean the epinephrine as tolerated. * Volume overload, on Lasix intravenous b.i.d. * Hypercholesterolemia, on high statin therapy. * Acute blood loss anemia. No evidence of active bleeding at this time. * Respiratory failure, status post surgery. The patient continues to be intubated. We will continue to wean the ventilator as tolerated. TID: [id number] RECEIPT: [id number]
--- NOTE | 2025-09-01 06:35 | PN ---
[facility] Cardiology Progress Note Cardiology progress note September 01, 2025 Problems: 1. Non ST-elevation myocardial infarction in the setting of cocaine abuse complicated by cardiogenic shock requiring Impella support 2. Severe multivessel CAD with acute occlusion of the right coronary artery unable to be revascularized percutaneously with preop ejection fraction of 50% by echo status post aortocoronary bypass graft surgery with a BRO graft to the LAD saphenous graft to the obtuse marginal artery and saphenous graft to the 2nd diagonal artery 3. Ventricular standstill after anesthesia induction for removal of Impella device August 29 2025 4. Remote history of CVA 5. Diabetes mellitus type 2 uncontrolled on admission 6. Tobacco dependence 7. Dyslipidemia 8. Noncompliance with medication and follow up The patient has been extubated. She continues on low-dose of norepinephrine. Blood pressure is running 95-110 systolic heart rate is 100 per minute. Brisk bilaterally. PA diastolic pressure is running around five. 1400 cc overnight. Continues on furosemide infusion. White count 12.0 hemoglobin 9.9 platelet count [id number]. Potassium 3.2 BUN 13 creatinine 0.8. Chest x-ray shows post sternotomy changes. Yap obscured by a defibrillator patch. Blunting of the left costophrenic angle. The patient continues on aspirin atorvastatin famotidine gabapentin insulin scale midodrine antibiotics and norepinephrine. Potassium and magnesium are being supplemented this morning. Her temporary pacemaker remains on standby. She has had no recurrent bradycardia or pauses. We will recommend a 2D echocardiogram to reassess ejection fraction after removal of the Impella pump. In addition she had a trivial pericardial effusion which will be reassessed. We will ask Dr. Esteban to see her for an opinion regarding whether or not she requires a permanent pacemaker prior to discharge. CHIRAG GATES MD Sep 01, 2025 06:35
--- NOTE | 2025-09-01 08:56 | NUR ---
DR. LIMA'S ASSISTENAT WAS NOTIFIED ON THE PHONE REGARDING THE CONSUTL FOR PPM.
[2025-09-01] MEDS: BALSAM PERU/CASTOR OIL 60 GM TUBE TP SCH (09:06)
--- NOTE | 2025-09-01 09:59 | HMCSR ---
APPROVED REPORT EXAM: Limited two-dimensional and M-mode echocardiogram with Doppler and color Doppler. INDICATION ICD: Re-assess LV function and pericardial effusion 2D Dimensions LVED Vol(simp.)93.1 mL LVES Vol(simp.)51.0 mL LVEF(%, simp.)45 % Deformation Strain Apical 4-12.4 % Apical 2-12.0 % Apical 3-6.9 % Global Strain-10.4 % Left Ventricle Left ventricular cavity size is normal. GLS -10.4% Hypokinetic inferior wall. Mild concentric left ve ntricular hypertrophy. LVEF is 45-50%. Pericardium No pericardial effusion. Other Information Quality : Limited/Follow-up Conclusion LVEF is 45-50%. GLS -10.4% Hypokinetic inferior wall. No pericardial effusion.
[2025-09-01 10:48] LABS: CREATININE 0.9 mg/dL (0.5-1.0); GLOMERULAR FILTR. RATE CALC 74.0 mL/min (>90); GLUCOSE,RANDOM 209.0 mg/dL (70-105); SODIUM SERUM 138.0 mmol/L (136-145); UREA NITROGEN, BLOOD 13.0 mg/dL (7-18)
--- NOTE | 2025-09-01 11:50 | PN ---
[facility] PROGRESS NOTE Date of Service: Sep 01, 2025 Time of Service: 11:48 SUBJECTIVE: This is a 60-year-old female with underlying history of obesity, coronary artery disease, poorly controlled type 2 diabetes mellitus, history of anemia, history of cocaine use, tobacco use disorder, history of CVA in 2008, who presented to the ER for further evaluation of severe substernal chest pain and shortness of breadth. Patient reports having history of cocaine use with last use of cocaine yesterday. She reports having severe substernal chest pain that started today in it has been associated with dizziness, and generalized malaise. Pain is 10/1 0 in severity. Patient denies any syncope or fall. She has been having lightheadedness with ambulation. She has not been able to follow up with Cardiology as outpatient. She has a previous history of abnormal CT coronary angiography when she was hospitalized in 04/2025 and she was treated medically. With regards to type 2 diabetes mellitus, she reports being on metformin as ou tpatient. On presentation to the hospital, patient was noted to be hypotensive with blood pressure of 80/60 with heart rate of 40 with EKG showing complete heart block. [place] [address], hemoglobin 12.4, platelet count of 400050. BMP showed sodium of 133, potassium 4.8, chloride of 99, BUN of 21, creatinine 1.0, blood glucose of 403, [place] [address]. Chest x-ray showed no acute infiltrates. Patient will be admitted for further management of cardiogenic shock, NSTEMI, complete heart block with history of poorly controlled type 2 diabetes mellitus. Patient will be emergently taken to the [facility] home [facility] for cardiac catheterization/ PCI and tentative plan for MCS support. Patient will be admitted to intensive care unit and she remains critically ill. 08/14 patient remains critically ill requiring Impella and dopamine support. UDS has demonstrated benzos and cocaine 08/15 patient remains on Impella 08/16 patient appears to be resting comfortably in bed. She remains on Impella and dopamine support. She reports she would like to be bathed and wants her hair combed significant and she is feeling better 08/17 patient is on GI soft diet tolerating well. She remains on Impella support 08/18 patient is resting comfortably in bed. She remains on Impella. Tolerating oral intake. 08/19 hemoglobin dropped to 6.5 from 7.0-7.5 yesterday. I agree with transfusing 1 unit PRBC. Patient remains on Impella. Patient is resting comfortably in bed. 08/20 patient is resting comfortably in bed. She remains on Impella support pending recovery for CABG. 08/21 patient underwent CABG x3 yesterday, no complications reported patient remains on Impella the patient is on norepinephrine, amiodarone, dopamine, insulin drip 08/22 postop day 2. From CABG x3. Patient does awaken to verbal stimulation and states she has some chest pain and slight shortness for breath she feels the pain as incisional from her open heart procedure. He is on p.o. amiodarone and being weaned off norepinephrine. 08/23 postop day 3 from CABG x3. Patient is in bed visiting with her son at the bedside. She states she has no shortness for breath, she does have some incisional chest discomfort, no nausea or vomiting or diarrhea. She is off nor epinephrine drip and remains with the Impella assist. 08/24 patient is seen and examined at bedside, discussed with the RN, no acute events overnight, remains with the Impella support, postoperative day four from CABG x3. She is awake, following commands. Off vasopressors. Remains on heparin drip and sodium bicarbonate drip. Continue to follow critical Care and Cardiothoracic input and recommendation. 08/25 PATIENT IS SEEN AND EXAMINED AT BEDSIDE, DISCUSSED WITH THE RN, NO ACUTE EVENTS OVERNIGHT, PATIENT FOLLOWING COMMANDS, SHE REMAINS WITH THE IMPELLA SUPPORT, CHEST TUBE IN PLACE, POSTOPERATIVE DAY FIVE, STATUS POST CABG. CU RRENTLY OFF PRESSORS, ON HEPARIN DRIP. CONTINUE TO FOLLOW CRITICAL CARE AND CARDIOTHORACIC INPUT AND RECOMMENDATIONS. POSSIBLE REMOVAL OF IMPELLA SUPPORT TODAY. 08/26 patient is seen and examined at bedside, discussed with the RN, no acute events overnight, remains with the Impella support, postoperative day four from CABG x6. She is awake, following commands. Off vasopressors. Remains on heparin drip, continue with chest tube in place, continue to follow Cardiothoracic input and recommendation. 08/27 patient is seen and examined at bedside, case discussed with the RN, no acute events overnight, patient awake, following commands, still with the Impella support, status post CABG. No chest pain, shortness shortness for breath, no nausea, no vomiting. Continue with chest tube in place. BP 132/74, afebrile, saturating 99% 4 L nasal cannula. CBC with a hemoglobin 9.0, hematocrit 28.1, WBC 12.2, with a platelet count of 152. Sodium 140, potassium 4.0, BUN of 12, creatinine 0.6, initially 2.10. Cardiology input noted and appreciated, echocardiogram ordered, we will follow report. Continue to follow Cardiothoracic input and recommendation. 08/28 patient is seen and examined at bedside, case discussed with the RN, no acute events overnight, patient remains admitted to the ICU, the time of my visit, awake, following command, NPO, she is scheduled to be taken to the operating room today for removal of Impella support by cardio thoracic surgeons, we will continue to follow input and recommendation. Limited 2D echo performed yesterday shows left ventricular cavity size is normal, Impella device measuring 5.6 cm into LV. Left ventricular ejection fraction 55-60%, no pericardial effusion. 08/29 patient is seen and examined at bedside, case discussed with the RN, no acute events overnight, patient remains admitted to the ICU, the time of my visit, awake, following command, NPO, she is scheduled to be taken to the operating room today for removal of Impella support by cardio thoracic surgeons, we will continue to follow input and recommendation. Limited 2D echo performed yesterday shows left ventricular cavity size is normal, Impella device measuring 5.6 cm into LV. Left ventricular ejection fraction 55-60%, no pericardial effusion. 08/30 patient is seen and examined at bedside, discussed with the RN, no acute events overnight, status post interval removal of Impella and placement of p ericardial patch in the operating room by Cardiothoracic surgeon, 08/29/2025, tolerated the procedure well. Patient will remain admitted to the ICU, we will continue to follow Cardiothoracic input and recommendation. Follow a.m. labs. Continue Lasix, follow intake and output, daily chest x-ray, continue heparin drip, follow critical care input and recommendation. Patient completed 10 days of Rocephin and a dose of vancomycin. Completed three days of Ancef. 08/31 patient is seen and examined at bedside, discussed with the RN, no acute events overnight, patient remains admitted to the ICU, now she is intubated, mechanical ventilation, however awake, following commands, on low-dose Precedex, also on Lasix drip, Levophed drip, patient is status post interval removal of Impella support device per Cardiothoracic surgeon. Tolerated well. Hemoglobin today 9.1, hematocrit 27.4, ABG pH 7.48, pCO2 40, PO2 95.8, bicarb 29.1, chest x-ray pending. Continue to follow Cardiothoracic input recommendation, for continue care input and recommendation terms of extubation, wean off Levophed. 09/01 patient is seen and examined at bedside, remains admitted to the ICU, status post interval extubation. She is alert and oriented, following commands, remains on Levophed and Lasix drip. Chest tube in place. BP 113/46, hemoglobin 9.9, hematocrit 30.3, WBC 12.0, platelet count of 218. Sodium 138, potassium 3.9, BUN of 13, creatinine 0.9. Discussed with the RN, pending EP evaluation for possible pacemaker. We will follow, continue to follow Cardiothoracic input and recommendation. Critical care input noted and appreciated. Follow a.m. labs. REVIEW OF SYSTEMS CONSTITUTIONAL: generalized fatigue, malaise NEUROLOGICAL: Denies headache, amaurosis fugax, motor weakness, sensory deficit, vertigo/spinning sensation, gait abnormalities, or tremors. ENT: No hearing loss, otalgia, otorrhea, rhinitis, rhinorrhea, hoarseness, or sore throat. CARDIOVASCULAR: Mild incisional chest pain, no shortness breath PULMONARY: Denies any shortness of breath, cough, phlegm/sputum, hemoptysis, pleuritic chest pain. SLEEP: Denies morning headaches, daytime somnolence or napping. Denies difficulty falling asleep, staying asleep, waking from sleep. Denies knowledge of snoring. GASTROINTESTINAL: No nausea, Denies any type of dysphagia to either liquids or solids. Denies vomiting, pyrosis, early satiety, abdominal pain, diarrhea, constipation, or changes in stool consistency or caliber. Denies coffee-ground emesis, hematemesis, hematochezia, or melanotic stools. GENITOURINARY: Denies frequency, urgency, nocturia, hematuria or incontinence (Storage/Irritative symptoms.) Low urinary stream, straining to void, urinary intermittency or hesitancy, splitting of the voiding stream, terminal dribbling. ENDOCRINOLOGIC: Denies polyuria, polydipsia, polyphagia or heat/cold intolerances. HEMATOLOGIC: Denies thrombophilia/previous clots, or coagulopathy/bleeding disorders. ONCOLOGIC: Denies personal history of malignancy. DERMATOLOGIC: Denies rashes or pruritus. PSYCHIATRIC: Denies any suicidal or homicidal ideation. Denies hallucinations. PHYSICAL EXAM GENERAL APPEARANCE: Extubated, awake, following commands. NEUROLOGICAL: Cranial nerves II-XII grossly intact. Motor is 5/5 in bilateral upper and lower extremities proximal to distal. No sensory deficits. HEENT: Face is symmetric. Pupils are equal and reactive. Extraocular movements are intact. NECK: Supple. No JVD. No thyromegaly. No submental, submandibular, pre- /postauricular, occipital or supraclavicular lymphadenopathy. CHEST: Normal chest expansion. No Telemetry. LUNGS: minimal crackles noted of the bilateral lung bases CARDIOVASCULAR: Regular. S1 and S2 normal. No appreciable rubs, murmurs or gallops. ABDOMEN: Soft, nontender, and nondistended. There is no rebound, voluntary guarding, or rigidity. : Deferred. No Coombs. EXTREMITIES: trace edema noted of the bilateral lower extremities SKIN: No skin breakdown. Vital Signs (last 8hr) Date Time Temp Pulse Resp B/P (MAP) Pulse Ox O2 Delivery O2 Flow Rate FiO2 09/01/25 10:56 91 15 113/46 (68) 99 09/01/25 10:54 92 18 99 09/01/25 10:39 92 20 119/47 (71) 99 09/01/25 10:24 93 23 129/56 (80) 98 09/01/25 10:09 93 20 125/82 (96) 99 09/01/25 09:54 92 22 120/62 (81) 98 09/01/25 09:39 93 21 106/61 (76) 98 09/01/25 09:24 89 20 104/50 (68) 93 09/01/25 09:09 92 30 106/44 (64) 98 09/01/25 08:54 89 26 128/61 (83) 98 09/01/25 08:49 97.9 09/01/25 08:39 93 20 109/60 (76) 98 09/01/25 08:24 93 21 117/62 (80) 97 09/01/25 08:09 97 19 122/67 (85) 96 09/01/25 08:00 98.1 09/01/25 07:54 96 25 112/59 (76) 94 09/01/25 07:39 97 21 104/54 (71) 97 09/01/25 07:24 97 22 100/45 (63) 95 09/01/25 07:24 99 20 N/Cannula Low lpm 2.0 28 09/01/25 07:14 99 20 Aerosol, Face Mask 10.0 40 09/01/25 07:09 95 24 98/59 (72) 94 09/01/25 06:54 99 22 109/55 (73) 95 09/01/25 06:39 98 23 79/54 (62) 90 09/01/25 06:24 95 19 94/50 (65) 95 09/01/25 06:09 102 26 93/53 (66) 91 09/01/25 06:07 101 33 105/61 (76) 93 09/01/25 05:23 98 25 124/61 (82) 93 09/01/25 04:54 99 25 116/47 (70) 83 09/01/25 04:39 102 24 113/79 (90) 94 09/01/25 04:26 99 22 108/54 (72) 95 09/01/25 04:09 99 23 96/43 (60) 94 09/01/25 04:01 99 Venti Mask+ 40 09/01/25 03:56 98.6 98 25 122/57 (78) 97 LABS: Laboratory: Test 09/01/25 11:25 09/01/25 10:14 09/01/25 04:19 08/31/25 15:01 Range/Units Whole Blood Glucose 202 H 70-110 MG/DL Sodium Level 138 136-145 mmol/L Potassium Level 3.9 3.5-5.1 mmol/L Chloride Level 96 L 101-111 mmol/L Carbon Dioxide Level 29 21-32 mmol/L Blood Urea Nitrogen 13 7-18 mg/dL Creatinine 0.9 0.5-1.0 mg/dL Glomerular Filtration Rate Calc 74 >90 mL/min Random Glucose 209 H 70-105 mg/dL Total Calcium 8.3 L 8.5-10.1 mg/dL Magnesium Level 2.10 1.80-2.40 mg/dL White Blood Count 12.0 H 4.8-10.8 K/uL Red Blood Count 3.24 L 4.00-5.50 MIL/uL Hemoglobin 9.9 L 12.0-16.0 g/dL Hematocrit 30.3 L 36-48 % Mean Corpuscular Volume 93.5 79-99 fL Mean Corpuscular Hemoglobin 30.6 27.0-33.0 pg Mean Corpuscular Hemoglobin Concent 32.7 32.0-36.0 g/dL Red Cell Distribution Width 18.4 H 11.0-15.5 % Platelet Count 218 130-400 K/uL Mean Platelet Volume 9.9 7.5-10.5 fL Nucleated Red Blood Cells 0.0 0.0-0.19 % Red Blood Cell Morphology See comments Total Bilirubin 0.7 0.2-1.0 mg/dL Aspartate Amino Transf (AST/SGOT) 38 H 10-37 U/L Alanine Aminotransferase (ALT/SGPT) 23 12-78 U/L Alkaline Phosphatase 188 H 50-136 U/L Total Protein 7.2 6.0-8.3 g/dL Albumin 1.8 L 3.5-5.0 g/dL Blood Gas Specimen Type Arterial Arterial Blood pH 7.470 H 7.350-7.450 Arterial Blood Partial Pressure CO2 37 32-45 mmHg Arterial Blood Partial Pressure O2 81.1 L 83.0-108.0 mmHg Arterial Blood HCO3 26.5 21.0-28.0 mmol/L Arterial Blood Oxygen Saturation 95.7 94.0-98.0 % Arterial Blood Base Excess 2.8 -2.0-3.0 mmol/L Hemoglobin (Blood Gas) 10.6 L 12.0-16.0 g/dL Sodium (Blood Gas) 136 136-145 MMOL/L Bedside Potassium (Blood Gas) 3.8 3.4-4.5 MMOL/L Bedside Chloride (Blood Gas) 98 98-107 MMOL/L Bedside Glucose (Blood Gas) 181 H 65-95 MG/DL Bedside Ionized Calcium (Blood Gas) 1.10 L 1.15-1.33 MMOL/L Bedside Lactic Acid (Blood Gas) 1.33 H 0.36-0.75 MMOL/L Blood Gas Temperature 37.0 35.5-37.0 CELSIUS Blood Gas Vent Mode CPAP 5-5 ROOM AIR FiO2 30.0 % Blood Gas Specimen Comment LBBRIZA Test 08/31/25 04:42 Range/Units Blood Gas Respiration Rate 12.0 min. Blood Gas Tidal Volume 500 ml Blood Gas PEEP 5 cm H2O Current Medications Medications (Trade) Dose Ordered Sig/Elmer Route PRN Reason Start Time Stop Time Status Last Admin Dose Admin Acetaminophen (TYLenol 325MG TAB) 650 mg Q4H PRN PO Temp >38.3C(AFTER EXTUBATION) 08/20/25 17:00 09/19/25 16:59 Acetaminophen (TYLenol 325MG TAB) 650 mg Q6H PRN PO MILD PAIN (1-3) 08/13/25 16:30 09/12/25 16:29 08/23/25 11:01 650 MG Acetaminophen (TYLenol 500MG TAB) 500 mg Q6H PRN PO TEMP < 101.1 AND/OR HEADACHE 08/14/25 14:30 09/13/25 14:29 08/26/25 10:41 500 MG Acetaminophen (TYLenol 650MG SUPPOSITORY) 650 mg Q4H PRN RC Temp >38.3C WHILE INTUBATED 08/20/25 17:00 09/19/25 16:59 Acetaminophen (acetaMINOPHEN 1,000MG/100ML) 1,000 mg Q6H6 IVPB 08/21/25 12:00 09/20/25 11:59 09/01/25 11:45 1,000 MG Albumin Human 50 ml @ 0 mls/hr BID IV 08/18/25 09:00 08/23/25 08:59 DC 08/22/25 20:56 100 MLS/HR Albumin Human 250 ml @ 0 mls/hr AD PRN IV IF HEMODYNAMICALLY UNSTABLE 08/20/25 17:00 08/20/25 22:46 DC 08/20/25 22:46 0 MLS/HR Aminocaproic Acid 80937 mg/Sodium Chloride 310 ml @ 25 mls/hr AD IV 08/20/25 17:00 08/21/25 05:23 DC Aminocaproic Acid 65511 mg/Sodium Chloride 480 ml @ 0 mls/hr AD PRN IV BLEEDING CONTROL 08/20/25 08:00 09/19/25 07:59 Aminocaproic Acid 19573 mg/Sodium Chloride 480 ml @ 0 mls/hr AD PRN IV BLEEDING CONTROL 08/20/25 09:00 08/20/25 09:03 DC Amiodarone HCl (pacERONE 200MG) 200 mg BID PO 08/22/25 09:00 08/29/25 21:00 DC 08/28/25 20:25 200 MG Amiodarone HCl 360 mg/Dextrose 207.2 ml @ 33.3 mls/hr AD IV 08/20/25 21:00 08/20/25 21:05 DC Amiodarone HCl 540 mg/Dextrose 310.8 ml @ 16.7 mls/hr [id number] IV 08/21/25 03:00 08/27/25 06:20 DC 08/21/25 20:12 16.7 MLS/HR Amiodarone HCL/ Dextrose 207.2 ml @ 33.3 mls/hr AD IV 08/20/25 21:30 08/21/25 10:49 DC 08/20/25 21:24 33.3 MLS/HR Aspirin (Aspirin 81mg Chew Tab) 81 mg DAILY PO 08/14/25 09:00 09/13/25 08:59 09/01/25 09:02 81 MG Atorvastatin Calcium (LIPItor 40MG) 40 mg HS PO 08/13/25 21:00 09/12/25 20:59 08/28/25 20:26 40 MG Benzocaine (Cepacol Sore Throat Lozenge) 1 each Q4H PRN MM SORE THROAT 08/26/25 11:30 09/25/25 11:29 Bisacodyl (DulcoLAX) 10 mg DAILY RC 08/17/25 09:00 08/20/25 08:59 DC 08/18/25 07:58 10 MG Calcium Carbonate (Tums 500 Mg Chew Tab) 500 tab QID PRN PO HEARTBURN 08/19/25 12:00 08/20/25 16:32 DC 08/20/25 05:10 1 TAB Calcium Gluconate 1 gm/Sodium Chloride 60 ml @ 200 mls/hr AD PRN IV HYPOCALCEMIA 08/20/25 17:00 09/19/25 16:59 08/30/25 03:43 200 MLS/HR Cefazolin Sodium (Ancef) 2 gm ONCALL IVP 08/19/25 19:30 08/21/25 08:36 DC 08/20/25 16:30 2 GM Cefazolin Sodium (Ancef) 2 gm Q8H IVPB 08/20/25 22:00 08/21/25 14:01 DC 08/21/25 13:45 2 GM Ceftriaxone Sodium (Rocephin 2gm Inj) 2 gm Q24H IVPB 08/14/25 11:30 08/24/25 11:29 DC 08/23/25 12:16 2 GM Chlordiazepoxide HCl (LIBrium 25 MG CAP) 25 mg Q2H PRN PO ALCOHOL WITHDRAWAL PROTOCOL 08/14/25 14:30 08/20/25 16:32 DC 08/16/25 23:38 25 MG Chlordiazepoxide HCl (LIBrium 25 MG CAP) 50 mg Q1H PRN PO ALCOHOL WITHDRAWAL PROTOCOL 08/14/25 14:30 08/20/25 16:32 DC Dexmedetomidine/ Sodium Chloride (PRECEdex 400MCG/ 100ML-NS) 400 mcg PROTOCOL IV 08/20/25 20:30 09/19/25 20:29 08/31/25 06:18 400 MCG Dextrose (D50w) 50 ml AD PRN IV HYPOGLYCEMIA PROTOCOL 08/20/25 17:00 09/19/25 16:59 Dextrose (D50w) 50 ml AD PRN IV HYPOGLYCEMIA PROTOCOL 08/13/25 20:00 08/20/25 22:03 DC Diphenhydramine HCl (BENAdryl INJ) 25 mg ONCE PRN IV ITCHING 08/15/25 23:00 08/17/25 22:59 DC Docusate Sodium (COLace 100MG CAP) 100 mg BID PRN PO CONSTIPATION 08/14/25 11:00 09/13/25 10:59 Dopamine HCl/ Dextrose 250 ml @ 0 mls/hr PROTOCOL IV 08/13/25 16:00 09/12/25 15:59 08/16/25 16:41 3 MLS/HR Epinephrine HCl 10 mg/Sodium Chloride 250 ml @ 14.091 mls/ hr AD PRN IV POST-OP CARDIOVASCULAR ORDERS 08/20/25 17:00 08/21/25 10:49 DC Epinephrine HCl 10 mg/Sodium Chloride 250 ml @ 0 mls/hr AD PRN IV TITRATE 08/20/25 08:00 09/19/25 07:59 08/26/25 16:56 0 MLS/HR Epinephrine HCl 10 mg/Sodium Chloride 250 ml @ 0 mls/hr AD PRN IV TITRATE 08/20/25 09:00 08/20/25 09:03 DC Famotidine (Pepcid 20mg Vial) 20 mg BID IV 08/20/25 21:00 08/22/25 08:20 DC 08/21/25 20:17 20 MG Famotidine (Pepcid 20mg Tab) 20 mg BID PO 08/22/25 09:00 09/21/25 08:59 09/01/25 09:04 20 MG Folic Acid (FOLic ACID 1 MG TABLET) 1 mg DAILY PO 08/15/25 09:00 08/17/25 09:01 DC 08/17/25 07:46 1 MG Furosemide (LASix 20MG VIAL) 20 mg Q12H IV 08/21/25 11:30 08/22/25 14:17 DC 08/22/25 11:53 20 MG Furosemide (LASix 20MG VIAL) 20 mg Q12H IV 08/22/25 21:00 08/23/25 11:37 DC 08/23/25 09:50 20 MG Furosemide (LASix 20MG VIAL) 40 mg Q12H IV 08/22/25 21:00 08/22/25 14:32 DC Furosemide (LASix 40MG VIAL) 40 mg Q12H IV 08/23/25 11:30 08/30/25 11:08 DC 08/29/25 22:38 40 MG Furosemide 100 mg/ Sodium Chloride 100 ml @ 0 mls/hr PROTOCOL IV 08/30/25 11:30 09/29/25 11:29 09/01/25 10:00 0 MLS/HR Gabapentin (NEURontin 300 MG CAP) 300 mg TID PO 08/23/25 14:00 09/22/25 13:59 09/01/25 09:03 300 MG Glucagon (Glucagon 1mg Kit) 1 mg AD PRN IM HYPOGLYCEMIA PROTOCOL 08/20/25 17:00 09/19/25 16:59 Glucagon (Glucagon 1mg Kit) 1 mg AD PRN IM HYPOGLYCEMIA PROTOCOL 08/13/25 20:00 08/21/25 10:49 DC Heparin Sodium (Porcine) (HEParin 5,000 UNIT VIAL) *calculation based on ACTUAL B... AD PRN IV HEPARIN PROTOCOL 08/13/25 16:30 08/20/25 16:32 DC 08/17/25 04:46 3,175 UNIT Heparin Sodium/ Dextrose 250 ml @ 0 mls/hr PROTOCOL IV 08/21/25 11:30 09/20/25 11:29 08/28/25 15:28 10.54 MLS/HR Heparin Sodium/ Dextrose 250 ml @ 0 mls/hr Q6H IV 08/13/25 16:30 08/20/25 16:32 DC 08/19/25 22:03 11.78 MLS/HR Insulin Glargine (LANtus 100 UNITS/ML 10 ML VIAL) 5 units BID@0730,2100 SQ 08/16/25 21:00 08/17/25 09:31 DC 08/16/25 21:21 5 UNITS Insulin Glargine (LANtus 100 UNITS/ML 10 ML VIAL) 10 units HS 08/13/25 21:00 08/14/25 06:16 DC 08/13/25 20:21 10 UNITS Insulin Glargine (LANtus 100 UNITS/ML 10 ML VIAL) 15 units DAILY SQ 08/23/25 09:00 08/28/25 07:20 DC 08/27/25 08:35 15 UNITS Insulin Glargine (LANtus 100 UNITS/ML 10 ML VIAL) 20 units DAILY SQ 08/14/25 09:00 08/15/25 07:24 DC 08/14/25 08:01 20 UNITS Insulin Glargine (LANtus 100 UNITS/ML 10 ML VIAL) 20 units DAILY SQ 08/28/25 09:00 09/27/25 08:59 Insulin Glargine (LANtus 100 UNITS/ML 10 ML VIAL) 30 units DAILY SQ 08/15/25 09:00 08/16/25 07:19 DC 08/15/25 08:28 30 UNITS Insulin Glargine (LANtus 100 UNITS/ML 10 ML VIAL) 35 units DAILY SQ 08/16/25 09:00 08/19/25 07:35 DC 08/18/25 07:59 35 UNITS Insulin Glargine (LANtus 100 UNITS/ML 10 ML VIAL) 42 units DAILY SQ 08/19/25 09:00 08/20/25 06:22 DC 08/19/25 09:40 42 UNITS Insulin Glargine (LANtus 100 UNITS/ML 10 ML VIAL) 45 units DAILY SQ 08/20/25 09:00 08/20/25 16:32 DC Insulin Human Lispro (HumaLOG LISpro 100 UNIT/ML 3ML) INSULIN SLIDING SCAL... ACHS SQ 08/16/25 21:00 08/17/25 09:31 DC Insulin Human Regular (humuLIN R 100 UNIT/ML 3ML) 3 unit TIDAC SQ 08/27/25 07:30 08/27/25 20:56 DC 08/27/25 16:47 3 UNIT Insulin Human Regular (humuLIN R 100 UNIT/ML 3ML) 5 unit TIDAC SQ 08/14/25 17:00 08/15/25 07:24 DC 08/15/25 07:03 5 UNIT Insulin Human Regular (humuLIN R 100 UNIT/ML 3ML) 6 unit TIDAC SQ 08/28/25 07:30 09/27/25 07:29 09/01/25 11:45 6 UNIT Insulin Human Regular (humuLIN R 100 UNIT/ML 3ML) 8 unit TIDAC SQ 08/15/25 07:30 08/15/25 22:46 DC 08/15/25 16:02 8 UNIT Insulin Human Regular (humuLIN R 100 UNIT/ML 3ML) 10 unit TIDAC SQ 08/16/25 07:30 08/17/25 21:12 DC 08/17/25 16:09 10 UNIT Insulin Human Regular (humuLIN R 100 UNIT/ML 3ML) 12 unit TIDAC SQ 08/18/25 07:30 08/18/25 20:19 DC 08/18/25 16:39 12 UNIT Insulin Human Regular (humuLIN R 100 UNIT/ML 3ML) 16 unit TIDAC SQ 08/19/25 07:30 08/20/25 06:22 DC 08/19/25 16:47 16 UNIT Insulin Human Regular (humuLIN R 100 UNIT/ML 3ML) 17 unit TIDAC SQ 08/20/25 07:30 08/20/25 16:32 DC Insulin Human Regular (humuLIN R 100 UNIT/ML 3ML) INSULIN SLIDING SCAL... ACHS SQ 08/17/25 16:30 08/20/25 16:32 DC 08/19/25 21:31 8 UNIT Insulin Human Regular (humuLIN R 100 UNIT/ML 3ML) INSULIN SLIDING SCAL... ACHS SQ 08/22/25 11:30 08/22/25 21:32 DC 08/22/25 20:58 3 UNIT Insulin Human Regular (humuLIN R 100 UNIT/ML 3ML) INSULIN SLIDING SCAL... ACHS SQ 08/23/25 07:30 09/22/25 07:29 09/01/25 11:42 4 UNIT Insulin Human Regular (humuLIN R 100 UNIT/ML 3ML) INSULIN SLIDING SCAL... [facility] SQ 08/13/25 16:30 08/16/25 20:46 DC 08/16/25 20:01 4 UNIT Insulin Human Regular 100 unit/ Sodium Chloride 100 ml @ 0 mls/hr AD IV 08/20/25 17:00 08/22/25 16:59 DC 08/21/25 15:00 5 MLS/HR Iron Sucrose (VenoFER) 200 mg DAILY IV 08/21/25 13:00 08/23/25 09:43 DC 08/22/25 11:53 200 MG Iron Sucrose (VenoFER) 200 mg DAILY IV 08/23/25 09:00 08/26/25 08:57 DC 08/25/25 09:25 200 MG Lidocaine (Lidocaine Patch 4%) 1 each DAILY TP 08/19/25 09:00 09/18/25 08:59 09/01/25 09:05 1 EACH Lidocaine HCl/ Dextrose 250 ml @ 0 mls/hr PROTOCOL IV 08/21/25 00:00 09/20/25 00:00 Lidocaine/ Prilocaine (Emla) 1 appl ONCE TP 08/31/25 13:30 09/01/25 07:33 DC 08/31/25 13:59 1 APPL Magnesium Sulfate 50 ml @ 12.5 mls/hr AD PRN IV MAG LEVEL LESS THAN 2.0 08/20/25 17:00 09/19/25 16:59 09/01/25 06:05 12.5 MLS/HR Magnesium Sulfate 50 ml @ 0 mls/hr PROTOCOL IV 08/13/25 16:30 08/21/25 10:49 DC 08/21/25 05:58 25 MLS/HR Midodrine (PROAMatine 5 MG TABLET) 5 mg Q6H6 PO 08/26/25 16:00 09/01/25 10:53 DC 09/01/25 06:57 5 MG Midodrine (PROAMatine 5 MG TABLET) 10 mg Q6H6 PO 09/01/25 12:00 10/01/25 11:59 Morphine Sulfate (morPHINE 2MG SYG) 0.5 mg Q2H PRN IV MODERATE PAIN (4-6) 08/20/25 17:00 08/20/25 18:07 DC Morphine Sulfate (morPHINE 2MG SYG) 2 mg Q6H PRN IVP SEVERE PAIN (7-10) 08/19/25 18:00 08/20/25 16:32 DC 08/19/25 17:50 2 MG Morphine Sulfate (morPHINE 4MG SYG) 0.5 mg Q2H PRN IV MODERATE PAIN (4-6) 08/20/25 18:30 08/21/25 16:59 DC Morphine Sulfate (morPHINE 4MG SYG) 1 mg Q2H PRN IV SEVERE PAIN (7-10) 08/20/25 17:00 08/21/25 16:59 DC Morphine Sulfate (morPHINE 4MG SYG) 2 mg Q6H PRN IVP SEVERE PAIN (7-10) 08/14/25 09:30 08/19/25 12:29 DC 08/19/25 12:22 2 MG Multivitamins Therapeutic (Multivitamin Tablet) 1 tab DAILY PO 08/15/25 09:00 09/14/25 08:59 09/01/25 09:02 1 TAB Nitroglycerin/ Dextrose 0 ml @ 0 mls/hr AD IV 08/20/25 17:00 08/23/25 16:59 DC Nitroglycerin/ Dextrose 250 ml @ 0 mls/hr PROTOCOL IV 08/20/25 03:30 08/20/25 16:32 DC 08/20/25 03:12 1.5 MLS/HR Norepinephrine 250 ml @ 0 mls/hr PROTOCOL IV 08/13/25 15:30 08/20/25 08:31 DC Norepinephrine Bitartrate 250 ml @ 0 mls/hr AD PRN IV TITRATE 08/20/25 08:00 09/19/25 07:59 08/30/25 23:12 16 MLS/HR Norepinephrine Bitartrate 250 ml @ 0 mls/hr AD PRN IV TITRATE 08/20/25 09:00 08/20/25 09:03 DC Norepinephrine Bitartrate 8 mg/ Dextrose 250 ml @ 0 mls/hr AD PRN IV POST-OP CARDIOVASCULAR ORDERS 08/20/25 17:00 08/21/25 10:49 DC Ondansetron HCl (zoFRAN 4MG INJ) 4 mg Q4H PRN IV NAUSEA 08/14/25 14:30 08/20/25 16:32 DC 08/14/25 14:17 4 MG Ondansetron HCl (zoFRAN 4MG INJ) 4 mg Q6H PRN IV NAUSEA/VOMITING 08/20/25 17:00 09/19/25 16:59 08/29/25 12:47 4 MG Ondansetron HCl (zoFRAN 4MG INJ) 4 mg Q6H PRN IVP NAUSEA/VOMITING 08/13/25 16:30 08/14/25 14:08 DC Pantoprazole Sodium (PROTonix 40MG INJ) 40 mg Q12H IVP 08/17/25 16:30 08/20/25 16:32 DC 08/20/25 03:53 40 MG Pantoprazole Sodium (PROTonix 40MG INJ) 40 mg Q24H IVP 08/13/25 16:30 08/17/25 11:10 DC 08/16/25 16:07 40 MG Pharmacy Profile Note (Pharmacy Communication) 1 each PROTOCOL PRN MISC ETOH Withdrawal Score changes 08/14/25 14:30 08/14/25 14:08 DC Phenylephrine HCl 100 mg/Sodium Chloride 250 ml @ 0 mls/hr PROTOCOL IV 08/26/25 20:30 09/25/25 20:29 Piperacillin Sod/ Tazobactam Sod (Zosyn 3.375gm+NS 50ml) 3.375 gm Q8H IV 08/30/25 10:00 09/09/25 09:59 09/01/25 09:10 3.375 GM Polyethylene Glycol (MIRalax 3350 17 GM POWD.PACK) 17 gm DAILY PO 08/15/25 09:00 09/14/25 08:59 08/28/25 09:14 17 GM Potassium Phosphate 250 ml @ 42 mls/hr AD PRN IV LOW PHOS LEVEL 08/20/25 17:00 09/19/25 16:59 Potassium Chloride 100 ml @ 100 mls/hr AD PRN IV HYPOKALEMIA 08/20/25 17:00 09/19/25 16:59 09/01/25 07:52 100 MLS/HR Potassium Chloride 100 ml @ 100 mls/hr AD PRN IV POTASSIUM PROTOCOL 08/13/25 16:30 08/20/25 16:32 DC 08/16/25 16:07 100 MLS/HR Potassium Chloride (K-Dur/Klor-Con 20meq) 20 meq AD PRN PO POTASSIUM PROTOCOL 08/13/25 16:30 08/20/25 16:32 DC 08/15/25 08:23 20 MEQ Potassium Chloride (KCl 10% Elixir 20meq/15ml) 20 meq AD PRN PO POTASSIUM PROTOCOL 08/13/25 16:30 08/20/25 16:32 DC Promethazine HCl (Phenergan) 25 mg Q6H PRN PO NAUSEA 08/14/25 14:30 08/20/25 16:32 DC Propofol 100 ml @ 0 mls/hr AD PRN IV SEDATION 08/20/25 17:00 08/24/25 17:00 DC Sodium Bicarbonate 25 meq/Dextrose 1,000 ml @ 0 mls/hr Q0M IV 08/14/25 00:30 09/13/25 00:29 08/28/25 16:29 14 MLS/HR Sodium Bicarbonate 25 meq/Dextrose 1,000 ml @ 0 mls/hr Q0M IVP 08/14/25 00:30 08/14/25 00:15 DC Sodium Bicarbonate (Sodium Bicarb 50meq 50ml Vial) 50 meq AD PRN IV OTHER[SEE DOSING INSTRUCTIONS] 08/20/25 17:00 08/23/25 16:59 DC 08/21/25 01:19 50 MEQ Sodium Chloride 500 ml @ 500 mls/hr Q1H IV 08/20/25 00:33 08/20/25 03:16 DC 08/20/25 00:53 500 MLS/HR Sodium Chloride 500 ml @ 0 mls/hr AD IV 08/20/25 17:00 09/19/25 16:59 Sodium Chloride 1,000 ml @ 10 mls/hr ONCE IV 08/20/25 17:00 08/21/25 16:59 DC 08/20/25 22:31 10 MLS/HR Sodium Chloride (NS Flush 10ml) 10 ml Q8H PRN IVP IV LINE FLUSH 08/20/25 17:00 09/19/25 16:59 Thiamine HCl (Vitamin B-1) 300 mg DAILY IV 08/15/25 09:00 08/17/25 09:01 DC 08/17/25 07:46 300 MG Ticagrelor (BRILinta) 90 mg BID PO 08/14/25 09:00 08/14/25 21:19 DC 08/14/25 20:09 90 MG Tramadol HCl (UltRAM) 25 mg Q6H PRN PO MODERATE PAIN (4-6) 08/20/25 17:00 08/25/25 16:59 DC Tramadol HCl (UltRAM) 25 mg Q6H PRN PO MODERATE PAIN (4-6) 08/26/25 11:00 08/31/25 10:59 DC 08/27/25 03:12 25 MG Tramadol HCl (UltRAM) 50 mg Q6H PRN PO SEVERE PAIN (7-10) 08/20/25 17:00 08/25/25 16:59 DC 08/25/25 09:24 50 MG Tramadol HCl (UltRAM) 50 mg Q6H PRN PO SEVERE PAIN (7-10) 08/26/25 11:00 08/31/25 10:59 DC 08/29/25 05:39 50 MG Vancomycin HCl 250 ml @ 125 mls/hr Q12H IV 08/18/25 09:00 08/19/25 20:54 DC 08/19/25 09:39 125 MLS/HR Vancomycin HCl 250 ml @ 125 mls/hr Q12H IV 08/24/25 23:00 08/26/25 21:47 DC 08/26/25 11:47 125 MLS/HR Vancomycin HCl 250 ml @ 125 mls/hr Q8H IV 08/19/25 21:30 08/21/25 00:23 DC 08/20/25 22:26 125 MLS/HR Vancomycin HCl 250 ml @ 125 mls/hr Q8H IV 08/21/25 06:30 08/21/25 08:35 DC 08/21/25 08:15 125 MLS/HR Vancomycin HCl 250 ml @ 125 mls/hr Q8H IV 08/21/25 08:00 08/21/25 06:28 DC Vancomycin HCl 250 ml @ 125 mls/hr Q8H IV 08/21/25 16:30 08/24/25 16:54 DC 08/24/25 09:32 125 MLS/HR Vancomycin HCl (Vancomycin Protocol) 1 each AD IV 08/17/25 22:00 08/26/25 21:47 DC Wound Care/ Dressing Products (Venelex Ointment) 1 GM BID TP 09/01/25 09:00 09/30/25 20:59 09/01/25 09:06 1 GM Wound Care/ Dressing Products (Venelex Ointment) 1 gm BID TP 08/31/25 21:00 09/01/25 07:35 DC 08/31/25 21:26 1 GM DIAGNOSTICS / RADIOLOGY: [ ] ASSESSMENT: Cardiogenic shock with lactic acidosis, POA NSTEMI/ACS, POA Complete heart block, POA History of multivessel coronary artery disease, POA History of cocaine use disorder, POA Severe nonketotic hyperglycemia, POA History of to poorly controlled type 2 diabetes mellitus, POA Lactic acidosis, POA History of anemia, POA History of gastritis, POA History of hypertension, POA History of PTSD/anxiety, POA Obesity, POA Medical noncompliance, POA PLAN: patient is seen and examined at bedside, remains admitted to the ICU, status post interval extubation. She is alert and oriented, following commands, remains on Levophed and Lasix drip. Chest tube in place. BP 113/46, hemoglobin 9.9, hematocrit 30.3, WBC 12.0, platelet count of 218. Sodium 138, potassium 3.9, BUN of 13, creatinine 0.9. Discussed with the RN, pending EP evaluation for possible pacemaker. We will follow, continue to follow Cardiothoracic input and recommendation. Critical care input noted and appreciated. Follow a.m. labs. NEURO: MINIMIZE CENTRAL ACTING MEDICATIONS POSSIBLE. FALL PRECAUTIONS. WELL LIGHTED ROOM THROUGH THE DAY AND MINIMIZE INTERRUPTIONS THROUGH THE NIGHT TO PREVENT ACUTE DELIRIUM. PULMONARY: SUPPLEMENTAL 02 NEEDED BIPAP NECESSARY, FOR RESPIRATORY DISTRESS TITRATE FIO2 TO KEEP SPO2 > OR = 90% DUONEBS AND CPT NEEDED IS HOURLY WHILE AWAKE FOR PULMONARY HYGIENE PRN OUT OF BED TO CHAIR TOLERATED MAINTAIN ASPIRATION PRECAUTIONS AT ALL TIMES CARDIOVASCULAR: FOLLOW HEMODYNAMICS. VITAL SIGNS PER FACILITY PROTOCOL GI & NUTRITION: CONTINUE NUTRITIONAL SUPPORT ASPIRATIONS PRECAUTIONS PROKINETIC AGENTS AND LAXATIVES NEEDED KIDNEYS & ELECTROLYTES: STRICT MONITORING OF INTAKE AND OUTPUT DAILY WEIGHTS AVOID NEPHROTOXIC AGENTS MONITOR ELECTROLYTES AND REPLACE NEEDED GOAL URINE OUTPUT OF 30ML/HR OR 0.5ML/KG/HR MEDICATIONS TO BE DOSED ACCORDING TO RENAL FUNCTION. AVOID CONTRAST IF POSSIBLE ENDOCRINE: MAINTAIN BLOOD GLUCOSE BETWEEN 100-180 AT ALL TIMES. INSULIN SLIDING SCALE FOR BLOOD GLUCOSE MANAGEMENT HYPOGLYCEMIA AND HYPERGLYCEMIA PROTOCOL IN PLACE INFECTIOUS DISEASE: TREND TEMPERATURE, WBC AND PROCALCITONIN LEVEL FOLLOW CULTURES, DEESCALATE ANTIBIOTICS SOON POSSIBLE. PANCULTURE IF NEW ONSET FEVER HEMATOLOGY & COAGULATION: MONITOR H&H. KEEP HGB > 7 TRANSFUSE 1 UNIT OF PRBC FOR HGB < 7 TRANSFUSE 1 PACK OF PLATELETS OF PLATELETS < 20, 000 WATCH FOR ANY SIGNS AND SYMPTOMS OF BLEEDING SKIN: PRESSURE ULCER PREVENTION PER FACILITY PROTOCOL SPECIALTY MATTRESS NEEDED ORTHO/REHAB CONTINUE PT/OT PRN: MEDICATIONS TYLENOL 650 MG PO EVERY 4 HRS FOR FEVER ZOFRAN 4 MG IV EVERY 6 HRS FOR N/V HYDRALAZINE 5 MG IV EVERY 4 HRS SYSTOLIC PRESSURE > 160 BOWEL REGIMENT: LACTULOSE 20 GM PO BID PRN CONSTIPATION SUPPORTIVE MEASURES: CONTINUE GI AND DVT PROPHYLAXIS DISPOSITION: PENDING IMPROVEMENT IN CLINICAL CONDITION ALL QUESTIONS ANSWERED TIME SPENT: > 35 MIN GEE MARTIN MD Sep 01, 2025 11:50
--- NOTE | 2025-09-01 15:19 | NUR ---
Nutritional f/u Note: Chart, meds, and labs Reviewed. to the ICU, status post interval extubation. Currently on a GI soft 60gm cc diet easy to chew. PO intake adequate as per nursing. Wt Status: 92kg, Recommend: -Continue diet as tolerated -Encouage PO Intake -Glucenra 1 can PRN and or if PO intake <50% of meals taken. -RD to provide further recommendations based on clinical progress. -Monitor feeding tolerance, %, wt, and labs -If No BM >3days consider bowel stimulant. - Please notify RD if additional nutrition concerns arise. Addendum: 09/01/25 at [address] Amended: Links added.
--- NOTE | 2025-09-01 15:45 | NUR ---
[facility] Followup: Patient assessed by wound healing team. See wound assessment. Assessment and recommendations provided to primary nurse. Education provided. Addendum: 09/03/25 at 1415 by LINH MADISON RN RN/ Amended: Links added.
--- NOTE | 2025-09-01 18:03 | HMCIMG ---
EXAM: CR Chest, 1 View. CLINICAL HISTORY: s/p extubation. COMPARISON: CR - CHEST 1VW - 08/31/25 05:10 EDT FINDINGS: LUNGS: Pulmonary vascular congestion with mild interstitial and alveolar pulmonary edema. No focal consolidation. PLEURAL SPACES: Small bilateral pleural effusions, left greater than right. No pneumothorax. MEDIASTINUM: Stable mild cardiomegaly with post-CABG median sternotomy wires and surgical clips. Fults???Guillaume catheter present with tip projecting over the main pulmonary artery, in appropriate position. Endotracheal tube from prior study has been removed. No interval mediastinal widening. BONES: No acute or aggressive appearing osseous lesion detected. IMPRESSION: * Interval extubation since prior study. * Fults???Guillaume catheter in appropriate position. * Mild interstitial and alveolar pulmonary edema, similar to prior. * Small bilateral pleural effusions, left greater than right. * Stable mild cardiomegaly with post-CABG changes. * No pneumothorax or new acute cardiopulmonary abnormality. Compared with 08/31/25 05:10 EDT, findings are stable apart from interval extubation. /[place]
--- NOTE | 2025-09-01 19:25 | PN ---
[facility] PROGRESS NOTE Date Patient Seen: Sep 01, 2025 Time of Visit: 19:11 Supervising Physician: Karen Foster MD Consulting Physician: Hospitalist Outpatient Specialists: [ ] Inpatient Consults: Dr Chris ZARATE PROBLEM LIST: Acute hypoxic Resp failure requiring intubation on 08/29/25, extubated 08/31/25 Suspected aspiration Pneumonia Acute on chronic Diastolic Heart Failure with EF of >50% CABG x3 vessels 08/20 Cardiogenic shock SCAI stage D status post cardiac catheterization with m ultivessel disease, Impella placement, removal on 08/29/25 Complete heart block, status post transvenous temporary pacemaker placement Bradycardia with episode of asystole requiring 20 seconds of CPR on 08/29/25 NSTEMI, POA Bacteremia + Staph Cohni urealyticum DM type 2, with hyperglycemia, HGB A1c of 10.7 Cocaine abuse Tobacco use, current smoker History of CVA INTERVAL HISTORY: No Major overnight events. Pt is awake alert and oriented x 3. Generally weak and continues on pressors with Levophed at 0.04 mcg/kg/min. HR in the 60's and hemodynamically stable on levo. She is currently on 2L via NC saturating 98%. White count is trending down 12 today, H&H stable 9.9/30.3. Unremarkable. She reports right knee pain any x-ray only shows arthritis, uric acid of 3.7. Magnesium of 2.10. Per patient lidocaine patch has helped with her rt knee pain. Plan: Follow CT surgeon recs Daily sedation vacation CPAP trials Per EP plansfor PPM once off pressors Follow I&Os IV Zosyn for possible aspiration pneumonia Daily chest x-ray ABX: Completed 10 days of Rocephin and 9 days of Vancomycin. Ancef completed x 3. Lines/tubes: [place] chest tube, Sara, FC TVP Total critical care time spent 35 minutes, this excludes any procedures performed or any time spent in educational or teaching. REVIEW OF SYSTEMS: 12 point ROS reviewed with patient. Pertinent positives mentioned above. Otherwise negative. PHYSICAL EXAM: GENERAL: alert, weak, awake oriented x 3 HEENT: moist mucosa NECK: Supple, no JVD, trachea midline LUNGS: Diminished breath sounds bilaterally. No wheezes HEART: Normal S1 and S2, without murmurs ABD: Abdomen soft, nontender. Bowel sounds present EXT: No clubbing cyanosis or edema. TVP rt groin, rt knee pain and swelling NEURO: Alert and oriented to person, follows commands Vital Signs (last 8hr) Date Time Temp Pulse Resp B/P (MAP) Pulse Ox O2 Delivery O2 Flow Rate FiO2 09/01/25 15:30 99 Nasal Cannula* 2 28 09/01/25 12:13 98.4 09/01/25 12:00 99 Nasal Cannula* 2 28 LABS: Hematology Labs: Test 09/01/25 04:19 Range/Units White Blood Count 12.0 H 4.8-10.8 K/uL Red Blood Count 3.24 L 4.00-5.50 MIL/uL Hemoglobin 9.9 L 12.0-16.0 g/dL Hematocrit 30.3 L 36-48 % Mean Corpuscular Volume 93.5 79-99 fL Mean Corpuscular Hemoglobin 30.6 27.0-33.0 pg Mean Corpuscular Hemoglobin Concent 32.7 32.0-36.0 g/dL Red Cell Distribution Width 18.4 H 11.0-15.5 % Platelet Count 218 130-400 K/uL Mean Platelet Volume 9.9 7.5-10.5 fL Nucleated Red Blood Cells 0.0 0.0-0.19 % Red Blood Cell Morphology See comments Chemistry Labs: Test 09/01/25 17:45 09/01/25 10:14 09/01/25 04:19 Range/Units Whole Blood Glucose 155 H 70-110 MG/DL Sodium Level 138 136-145 mmol/L Potassium Level 3.9 3.5-5.1 mmol/L Chloride Level 96 L 101-111 mmol/L Carbon Dioxide Level 29 21-32 mmol/L Blood Urea Nitrogen 13 7-18 mg/dL Creatinine 0.9 0.5-1.0 mg/dL Glomerular Filtration Rate Calc 74 >90 mL/min Random Glucose 209 H 70-105 mg/dL Uric Acid 3.7 2.6-7.2 mg/dL Total Calcium 8.3 L 8.5-10.1 mg/dL Magnesium Level 2.10 1.80-2.40 mg/dL Total Bilirubin 0.7 0.2-1.0 mg/dL Aspartate Amino Transf (AST/SGOT) 38 H 10-37 U/L Alanine Aminotransferase (ALT/SGPT) 23 12-78 U/L Alkaline Phosphatase 188 H 50-136 U/L Total Protein 7.2 6.0-8.3 g/dL Albumin 1.8 L 3.5-5.0 g/dL DIAGNOSTICS / RADIOLOGY RESULTS: [[facility] [address] [place] [address] IMAGING REPORT Signed PATIENT: LUL ARTHUR MR#: [id number] : 1965 SEX: F AGE: 60 LOCATION: 2B ORDER 3 STATUS: ADM IN REPORT#: [id number] SERVICE 4 REASON: Reassess LV function and pericardial effusion. ORDERING PHYSICIAN: CHIRAG GATES MD PROCEDURE: ECHO FU LD - ECHO 2-D F/U-LTD APPROVED REPORT EXAM: Limited two-dimensional and M-mode echocardiogram with Doppler and color Doppler. INDICATION ICD: Re-assess LV function and pericardial effusion 2D Dimensions LVED Vol(simp.) 93.1 mL LVES Vol(simp.) 51.0 mL LVEF(%, simp.) 45 % Deformation Strain Apical 4 -12.4 % Apical 2 -12.0 % Apical 3 -6.9 % Global Strain -10.4 % Left Ventricle Left ventricular cavity size is normal. GLS -10.4% Hypokinetic inferior wall. Mild concentric left ventricular hypertrophy. LVEF is 45-50%. Pericardium No pericardial effusion. Other Information Quality : Limited/Follow-up Conclusion LVEF is 45-50%. GLS -10.4% Hypokinetic inferior wall. No pericardial effusion. DICTATED BY: CHIRAG GATES MD DATE: 09/01/2539 ELECTRONICALLY SIGNED BY: CHIRAG GATES MD DATE: 09/01/2559 ] PLAN NEURO: Minimize central acting medications as possible. Fall Precautions. Well lighted room through the day and minimize interruptions through the night to prevent acute delirium. PULMONARY: Supplemental 02 as needed Titrate Fio2 to keep Spo2 > or = 90% DuoNebs and CPT as needed IS hourly while awake for pulmonary hygiene CARDIOVASCULAR: Follow hemodynamics. Titrate vasopressor to keep MAP >65 or systolic blood pressure >95mmHg GI & NUTRITION: Continue nutritional support Aspirations precautions Prokinetic agents and laxatives as needed Clear liquid diet as tolerated KIDNEYS & ELECTROLYTES: Strict monitoring of intake and output Daily weights Avoid nephrotoxic agents Monitor electrolytes and replace as needed Goal urine output of 30mL/hr or 0.5mL/kg/hr ENDOCRINE: Maintain blood glucose between 100-180 at all times. Insulin sliding scale for blood glucose management INFECTIOUS DISEASE: Trend temperature. Astudillo-culture if febrile. HEMATOLOGY & COAGULATION: Monitor H&H. Keep Hgb > 7 Transfuse 1 unit of PRBC for Hgb < 7 Transfuse 1 pack of platelets of platelets < 20, 000 Watch for any signs and symptoms of bleeding SKIN: Pressure ulcer prevention per facility protocol Rehab: PT/OT Prophylaxis: GI: PPI DVT: SCDs patient on heparin drip Code Status: Full Resuscitation Disposition: ICU Critical care time This patient required multiple bedside visits to manage the patient, review blood gases, coordinate with respiratory, nurses, review radiology exams, talk to the family members and discuss advanced directives. I personally spent 35 minutes of critical care time in treatment of this patient. This includes patient management, time at bedside, time reviewing tests, labs, appropriate images and studies, documentation, and patient care coordination. This time excludes separately billable procedures. ATTESTATION BY PHYSICIAN I have evaluated the patient chart, medical records, and spoke with appropriate staff. I reviewed the documentation, medical decision making, and treatment plan as noted by the mid-level provider above. I agree with the findings and plan of care. Ata Foster MD, [facility] Sep 01, 2025 19:25
[2025-09-02] VITALS (135 sets, daily range): BP systolic 83–137; BP diastolic 37–104; PULSE 70–96; RESP 10–28; TEMP 97.7–98.3; O2SAT 97–99
[2025-09-02 05:02] LABS: IMMATURE GRANULOCYTE ABSOLUTE 0.06 K/uL (0-1); NUCLEATED RED BLOOD CELLS 0.0 % (0.0-0.19); PLATELET COUNT (AUTO) 300 K/uL (130-400); RED BLOOD CELL COUNT(AUTO) 3.10 MIL/uL (4.00-5.50); RED CELL DISTRIBUTION WIDTH 17.8 % (11.0-15.5); WHITE BLOOD COUNT (AUTO) 11.3 K/uL (4.8-10.8)
[2025-09-02 05:21] LABS: ASPARTATE AMINOTRANSFERASE 54.0 U/L (10-37); CREATININE 0.8 mg/dL (0.5-1.0); GLOMERULAR FILTR. RATE CALC 85.0 mL/min (>90); GLUCOSE,RANDOM 176.0 mg/dL (70-105); SODIUM SERUM 140.0 mmol/L (136-145); TOTAL PROTEIN, SERUM 7.2 g/dL (6.0-8.3); UREA NITROGEN, BLOOD 14.0 mg/dL (7-18)
--- NOTE | 2025-09-02 07:15 | PN ---
[facility] Cardiology Progress Note CARDIOLOGY PROGRESS NOTE SEPTEMBER 02, 2025 Problems: 1. Non ST-elevation myocardial infarction in the setting of cocaine abuse complicated by cardiogenic shock requiring Impella support 2. Severe multivessel CAD with acute occlusion of the right coronary artery unable to be revascularized percutaneously with preop ejection fraction of 50% by echo status post aortocoronary bypass graft surgery with a BRO graft to the LAD saphenous graft to the obtuse marginal artery and saphenous graft to the 2nd diagonal artery 3. Ventricular standstill after anesthesia induction for removal of Impella device August 29 2025 4. Remote history of CVA 5. Diabetes mellitus type 2 uncontrolled on admission 6. Tobacco dependence 7. Dyslipidemia 8. Noncompliance with medication and follow up Blood pressure this morning is 110-120 systolic heart rate is in the 80s. White count 11.3 hemoglobin 9.4 platelet count [id number]. Potassium 3.4 BUN 14 creati nine 0.8. The patient continues on aspirin atorvastatin furosemide infusion insulin scale midodrine antibiotics. Continues on low-dose norepinephrine. Chest tube is in place and will be monitored by CT surgery. Repeat echo shows ejection fraction of 45-50% with no pericardial effusion. Some hypokinesis of the inferior wall. We can switch over to pulse doses of diuretics if okay with surgery. CHIRAG GATES MD Sep 02, 2025 07:15
--- NOTE | 2025-09-02 08:31 | PN ---
TIME: 5:00 p.m. SUBJECTIVE: The patient is a 60-year-old female status post coronary artery bypass grafting and also status post right femoral artery repair for Impella removal. She remained stable in the ICU. PHYSICAL EXAMINATION: NEUROLOGIC: Alert and oriented. No motor or sensory deficits. CARDIAC: S1, S2. Regular rate and rhythm. RESPIRATORY: Clear to auscultation bilaterally. Incision is clean, dry, and intact. EXTREMITIES: Right lower extremity is warm and well perfused. ASSESSMENT AND PLAN: Coronary artery disease status post coronary artery bypass graft, Impella has been successfully removed on low-dose Levophed, we will continue to wean the pressor as tolerated. Volume overload on Lasix heavy b.i.d. Respiratory failure status post surgery. The patient remains on 2 liters nasal cannula. We will continue to wean the oxygen as tolerated. TID: [id number] RECEIPT: [id number]
--- NOTE | 2025-09-02 08:37 | NUR ---
BRANDON MEDINA NP CAME AND SAW THE PATIENT. WAS MADE AWARE OF THE HR AND WEANING ON THE PRESSORS. SHE SAID WILL NOTIFY DR. LIMA,
--- NOTE | 2025-09-02 10:11 | PN ---
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 Pt is awake alert and oriented x 3. Continues weaning pressors. Currently on Levophed at 0.02mcg/kg/alice. Continue diuresing. Pt reports occasional pain to rt knee. uric acid was wnl. Lasix drip converted to lasix 40mg IVP BID. Urine output 3.6L, chest tube output 50ml, Balance -2.1L. Chest XR with decreased RT pleural effusion. white count trending down.K 3.4 and covered. Magnesium 1.70, covered per protocol. Albumin 1.80. Plan: Follow CT surgeon recs wean Levophed midodrine 15mg po tid Per EP plans for PPM once off pressors Follow I&Os IV Zosyn for possible aspiration pneumonia Daily chest x-ray ABX: Zosyn Lines/tubes: chest tube, FC TVP, Total critical care time spent 35 minutes, this excludes any procedures performed or any time spent in educational or teaching. REVIEW OF SYSTEMS: 12 point ROS reviewed with patient. Pertinent positives mentioned above. Otherwise negative. PHYSICAL EXAM: GENERAL: alert, weak, awake oriented x 3 HEENT: moist mucosa NECK: Supple, no JVD, trachea midline LUNGS: Diminished breath sounds bilaterally. No wheezes HEART: Normal S1 and S2, without murmurs ABD: Abdomen soft, nontender. Bowel sounds present EXT: No clubbing cyanosis or edema. TVP rt groin, rt knee pain and swelling NEURO: Alert and oriented to person, follows commands Vital Signs (last 8hr) Date Time Temp Pulse Resp B/P (MAP) Pulse Ox O2 Delivery O2 Flow Rate FiO2 09/02/25 08:10 20 N/Cannula Low lpm 2.0 28 09/02/25 08:00 97.7 09/02/25 06:00 83 23 100 09/02/25 05:54 83 15 109/68 (82) 99 09/02/25 05:45 83 15 100 09/02/25 05:39 86 18 122/53 (76) 99 09/02/25 05:30 85 22 99 09/02/25 05:26 87 28 107/53 (71) 98 09/02/25 05:15 82 11 100 09/02/25 05:09 82 11 103/60 (74) 100 09/02/25 05:00 85 18 100 09/02/25 04:45 88 17 100 09/02/25 04:40 89 14 102/46 (64) 98 09/02/25 04:30 86 23 100 09/02/25 04:24 87 19 124/92 (103) 99 09/02/25 04:23 98 Nasal Cannula* 2 28 09/02/25 04:15 87 16 100 09/02/25 04:13 98.1 98 Nasal Cannula 2.0 09/02/25 04:09 88 21 109/63 (78) 99 09/02/25 04:00 87 14 100 09/02/25 03:54 89 24 106/67 (80) 99 09/02/25 03:45 88 17 100 09/02/25 03:40 89 15 114/70 (85) 99 09/02/25 03:30 85 13 92 09/02/25 03:25 86 15 95/48 (64) 92 09/02/25 03:15 86 17 91 09/02/25 03:09 88 14 101/57 (72) 90 09/02/25 03:00 86 13 93 09/02/25 02:54 85 13 98/50 (66) 95 09/02/25 02:45 86 13 92 09/02/25 02:39 88 13 110/56 (74) 91 09/02/25 02:30 87 14 92 09/02/25 02:15 82 12 99 LABS: Hematology Labs: Test 09/02/25 04:34 09/01/25 04:19 Range/Units White Blood Count 11.3 H 4.8-10.8 K/uL Red Blood Count 3.10 L 4.00-5.50 MIL/uL Hemoglobin 9.4 L 12.0-16.0 g/dL Hematocrit 29.9 L 36-48 % Mean Corpuscular Volume 96.5 79-99 fL Mean Corpuscular Hemoglobin 30.3 27.0-33.0 pg Mean Corpuscular Hemoglobin Concent 31.4 L 32.0-36.0 g/dL Red Cell Distribution Width 17.8 H 11.0-15.5 % Platelet Count 300 # 130-400 K/uL Mean Platelet Volume 10.2 7.5-10.5 fL Immature Granulocyte % (Auto) 0.5 0-1 % Neutrophils (%) (Auto) 69.4 40.0-77.0 % Lymphocytes (%) (Auto) 15.2 L 21.0-51.0 % Monocytes (%) (Auto) 8.6 3.0-13.0 % Eosinophils (%) (Auto) 5.9 0.0-8.0 % Basophils (%) (Auto) 0.4 0.0-5.0 % Neutrophils # (Auto) 7.9 H 1.8-7.7 K/uL Lymphocytes # (Auto) 1.7 1.0-4.8 K/uL Monocytes # (Auto) 1.0 0.1-1.0 K/uL Eosinophils # (Auto) 0.67 0.00-0.70 K/uL Basophils # (Auto) 0.05 0.00-0.20 K/uL Absolute Immature Granulocyte (auto 0.06 0-1 K/uL Nucleated Red Blood Cells 0.0 0.0-0.19 % Red Blood Cell Morphology See comments Chemistry Labs: Test 09/02/25 05:59 09/02/25 04:34 09/01/25 10:14 Range/Units Whole Blood Glucose 168 H 70-110 MG/DL Sodium Level 140 136-145 mmol/L Potassium Level 3.4 L 3.5-5.1 mmol/L Chloride Level 98 L 101-111 mmol/L Carbon Dioxide Level 34 H 21-32 mmol/L Blood Urea Nitrogen 14 7-18 mg/dL Creatinine 0.8 0.5-1.0 mg/dL Glomerular Filtration Rate Calc 85 >90 mL/min Random Glucose 176 H 70-105 mg/dL Total Calcium 8.0 L 8.5-10.1 mg/dL Magnesium Level 1.70 L 1.80-2.40 mg/dL Total Bilirubin 0.6 0.2-1.0 mg/dL Aspartate Amino Transf (AST/SGOT) 54 H 10-37 U/L Alanine Aminotransferase (ALT/SGPT) 29 12-78 U/L Alkaline Phosphatase 181 H 50-136 U/L Total Protein 7.2 6.0-8.3 g/dL Albumin 1.8 L 3.5-5.0 g/dL Uric Acid 3.7 2.6-7.2 mg/dL DIAGNOSTICS / RADIOLOGY RESULTS: [ ] PLAN NEURO: Minimize central acting medications as possible. Fall Precautions. Well lighted room through the day and minimize interruptions through the night to prevent acute delirium. PULMONARY: Supplemental 02 as needed Titrate Fio2 to keep Spo2 > or = 90% DuoNebs and CPT as needed IS hourly while awake for pulmonary hygiene CARDIOVASCULAR: Follow hemodynamics. Titrate vasopressor to keep MAP >65 or systolic blood pressure >95mmHg GI & NUTRITION: Continue nutritional support Aspirations precautions Prokinetic agents and laxatives as needed Clear liquid diet as tolerated KIDNEYS & ELECTROLYTES: Strict monitoring of intake and output Daily weights Avoid nephrotoxic agents Monitor electrolytes and replace as needed Goal urine output of 30mL/hr or 0.5mL/kg/hr ENDOCRINE: Maintain blood glucose between 100-180 at all times. Insulin sliding scale for blood glucose management INFECTIOUS DISEASE: Trend temperature. Astudillo-culture if febrile. HEMATOLOGY & COAGULATION: Monitor H&H. Keep Hgb > 7 Transfuse 1 unit of PRBC for Hgb < 7 Transfuse 1 pack of platelets of platelets < 20, 000 Watch for any signs and symptoms of bleeding SKIN: Pressure ulcer prevention per facility protocol Rehab: PT/OT Prophylaxis: GI: PPI DVT: SCDs patient on heparin drip Code Status: Full Resuscitation Disposition: ICU Critical care time This patient required multiple bedside visits to manage the patient, review blood gases, coordinate with respiratory, nurses, review radiology exams, talk to the family members and discuss advanced directives. I personally spent 35 minutes of critical care time in treatment of this patient. This includes patient management, time at bedside, time reviewing tests, labs, appropriate images and studies, documentation, and patient care coordination. This time excludes separately billable procedures. ATTESTATION BY PHYSICIAN I have evaluated the patient chart, medical records, and spoke with appropriate staff. I reviewed the documentation, medical decision making, and treatment plan as noted by the mid-level provider above. I agree with the findings and plan of care. Ata Foster MD, [facility] Sep 02, 2025 10:11
--- NOTE | 2025-09-02 11:30 | NUR ---
FEMORAL SHEATH IN PLACE. Addendum: 09/02/25 at 1500 by WAQAS COATES PT Amended: Links added.
--- NOTE | 2025-09-02 11:50 | PN ---
[facility] PROGRESS NOTE Date of Service: Sep 02, 2025 Time of Service: 11:47 SUBJECTIVE: This is a 60-year-old female with underlying history of obesity, coronary artery disease, poorly controlled type 2 diabetes mellitus, history of anemia, history of cocaine use, tobacco use disorder, history of CVA in 2008, who presented to the ER for further evaluation of severe substernal chest pain and shortness of breadth. Patient reports having history of cocaine use with last use of cocaine yesterday. She reports having severe substernal chest pain that started today in it has been associated with dizziness, and generalized malaise. Pain is 10/ 0 in severity. Patient denies any syncope or fall. She has been having lightheadedness with ambulation. She has not been able to follow up with Cardiology as outpatient. She has a previous history of abnormal CT coronary angiography when she was hospitalized in 04/2025 and she was treated medically. With regards to type 2 diabetes mellitus, she reports being on metformin as ou tpatient. On presentation to the hospital, patient was noted to be hypotensive with blood pressure of 80/60 with heart rate of 40 with EKG showing complete heart block. [place] [address], hemoglobin 12.4, platelet count of 532823. BMP showed sodium of 133, potassium 4.8, chloride of 99, BUN of 21, creatinine 1.0, blood glucose of 403, [place] [address]. Chest x-ray showed no acute infiltrates. Patient will be admitted for further management of cardiogenic shock, NSTEMI, complete heart block with history of poorly controlled type 2 diabetes mellitus. Patient will be emergently taken to the cathead worker for cardiac catheterization/ PCI and tentative plan for MCS support. Patient will be admitted to intensive care unit and she remains critically ill. 08/14 patient remains critically ill requiring Impella and dopamine support. UDS has demonstrated benzos and cocaine 08/15 patient remains on Impella 08/16 patient appears to be resting comfortably in bed. She remains on Impella and dopamine support. She reports she would like to be bathed and wants her hair combed significant and she is feeling better 08/17 patient is on GI soft diet tolerating well. She remains on Impella support 08/18 patient is resting comfortably in bed. She remains on Impella. Tolerating oral intake. 08/19 hemoglobin dropped to 6.5 from 7.0-7.5 yesterday. I agree with transfusing 1 unit PRBC. Patient remains on Impella. Patient is resting comfortably in bed. 08/20 patient is resting comfortably in bed. She remains on Impella support pending recovery for CABG. 08/21 patient underwent CABG x3 yesterday, no complications reported patient remains on Impella the patient is on norepinephrine, amiodarone, dopamine, insulin drip 08/22 postop day 2. From CABG x3. Patient does awaken to verbal stimulation and states she has some chest pain and slight shortness for breath she feels the pain as incisional from her open heart procedure. He is on p.o. amiodarone and being weaned off norepinephrine. 08/23 postop day 3 from CABG x3. Patient is in bed visiting with her son at the bedside. She states she has no shortness for breath, she does have some incisional chest discomfort, no nausea or vomiting or diarrhea. She is off nor epinephrine drip and remains with the Impella assist. 08/24 patient is seen and examined at bedside, discussed with the RN, no acute events overnight, remains with the Impella support, postoperative day four from CABG x3. She is awake, following commands. Off vasopressors. Remains on heparin drip and sodium bicarbonate drip. Continue to follow critical Care and Cardiothoracic input and recommendation. 08/25 PATIENT IS SEEN AND EXAMINED AT BEDSIDE, DISCUSSED WITH THE RN, NO ACUTE EVENTS OVERNIGHT, PATIENT FOLLOWING COMMANDS, SHE REMAINS WITH THE IMPELLA SUPPORT, CHEST TUBE IN PLACE, POSTOPERATIVE DAY FIVE, STATUS POST CABG. CU RRENTLY OFF PRESSORS, ON HEPARIN DRIP. CONTINUE TO FOLLOW CRITICAL CARE AND CARDIOTHORACIC INPUT AND RECOMMENDATIONS. POSSIBLE REMOVAL OF IMPELLA SUPPORT TODAY. 08/26 patient is seen and examined at bedside, discussed with the RN, no acute events overnight, remains with the Impella support, postoperative day four from CABG x6. She is awake, following commands. Off vasopressors. Remains on heparin drip, continue with chest tube in place, continue to follow Cardiothoracic input and recommendation. 08/27 patient is seen and examined at bedside, case discussed with the RN, no acute events overnight, patient awake, following commands, still with the Impella support, status post CABG. No chest pain, shortness shortness for breath, no nausea, no vomiting. Continue with chest tube in place. BP 132/74, afebrile, saturating 99% 4 L nasal cannula. CBC with a hemoglobin 9.0, hematocrit 28.1, WBC 12.2, with a platelet count of 152. Sodium 140, potassium 4.0, BUN of 12, creatinine 0.6, initially 2.10. Cardiology input noted and appreciated, echocardiogram ordered, we will follow report. Continue to follow Cardiothoracic input and recommendation. 08/28 patient is seen and examined at bedside, case discussed with the RN, no acute events overnight, patient remains admitted to the ICU, the time of my visit, awake, following command, NPO, she is scheduled to be taken to the operating room today for removal of Impella support by cardio thoracic surgeons, we will continue to follow input and recommendation. Limited 2D echo performed yesterday shows left ventricular cavity size is normal, Impella device measuring 5.6 cm into LV. Left ventricular ejection fraction 55-60%, no pericardial effusion. 08/29 patient is seen and examined at bedside, case discussed with the RN, no acute events overnight, patient remains admitted to the ICU, the time of my visit, awake, following command, NPO, she is scheduled to be taken to the operating room today for removal of Impella support by cardio thoracic surgeons, we will continue to follow input and recommendation. Limited 2D echo performed yesterday shows left ventricular cavity size is normal, Impella device measuring 5.6 cm into LV. Left ventricular ejection fraction 55-60%, no pericardial effusion. 08/30 patient is seen and examined at bedside, discussed with the RN, no acute events overnight, status post interval removal of Impella and placement of p ericardial patch in the operating room by Cardiothoracic surgeon, 08/29/2025, tolerated the procedure well. Patient will remain admitted to the ICU, we will continue to follow Cardiothoracic input and recommendation. Follow a.m. labs. Continue Lasix, follow intake and output, daily chest x-ray, continue heparin drip, follow critical care input and recommendation. Patient completed 10 days of Rocephin and a dose of vancomycin. Completed three days of Ancef. 08/31 patient is seen and examined at bedside, discussed with the RN, no acute events overnight, patient remains admitted to the ICU, now she is intubated, mechanical ventilation, however awake, following commands, on low-dose Precedex, also on Lasix drip, Levophed drip, patient is status post interval removal of Impella support device per Cardiothoracic surgeon. Tolerated well. Hemoglobin today 9.1, hematocrit 27.4, ABG pH 7.48, pCO2 40, PO2 95.8, bicarb 29.1, chest x-ray pending. Continue to follow Cardiothoracic input recommendation, for continue care input and recommendation terms of extubation, wean off Levophed. 09/01 patient is seen and examined at bedside, remains admitted to the ICU, status post interval extubation. She is alert and oriented, following commands, remains on Levophed and Lasix drip. Chest tube in place. BP 113/46, hemoglobin 9.9, hematocrit 30.3, WBC 12.0, platelet count of 218. Sodium 138, potassium 3.9, BUN of 13, creatinine 0.9. Discussed with the RN, pending EP evaluation for possible pacemaker. We will follow, continue to follow Cardiothoracic input and recommendation. Critical care input noted and appreciated. Follow a.m. labs. 09/02 patient is seen and examined at bedside, case discussed with the RN, remains admitted to the ICU, at the time of my visit she is alert oriented x3, remains on Lasix Levophed getting IV antibiotics. Oriented patient is status post coronary artery bypass grafting, status post right femoral artery repair. Cardiothoracic input noted and appreciated, input has been noted, Impella has b een successfully unit, patient will remain on low-dose Levophed, Lasix, IV antibiotics, continue chest tube in place. Patient supplemental oxygen via nasal cannula at 2 L to keep oxygen saturation greater than 92%. Continue to follow critical care input recommendation, follow a.m. labs. REVIEW OF SYSTEMS CONSTITUTIONAL: generalized fatigue, malaise NEUROLOGICAL: Denies headache, amaurosis fugax, motor weakness, sensory deficit, vertigo/spinning sensation, gait abnormalities, or tremors. ENT: No hearing loss, otalgia, otorrhea, rhinitis, rhinorrhea, hoarseness, or sore throat. CARDIOVASCULAR: Mild incisional chest pain, no shortness breath PULMONARY: Denies any shortness of breath, cough, phlegm/sputum, hemoptysis, pleuritic chest pain. SLEEP: Denies morning headaches, daytime somnolence or napping. Denies difficulty falling asleep, staying asleep, waking from sleep. Denies knowledge of snoring. GASTROINTESTINAL: No nausea, Denies any type of dysphagia to either liquids or solids. Denies vomiting, pyrosis, early satiety, abdominal pain, diarrhea, constipation, or changes in stool consistency or caliber. Denies coffee-ground emesis, hematemesis, hematochezia, or melanotic stools. GENITOURINARY: Denies frequency, urgency, nocturia, hematuria or incontinence (Storage/Irritative symptoms.) Low urinary stream, straining to void, urinary intermittency or hesitancy, splitting of the voiding stream, terminal dribbling. ENDOCRINOLOGIC: Denies polyuria, polydipsia, polyphagia or heat/cold intolerances. HEMATOLOGIC: Denies thrombophilia/previous clots, or coagulopathy/bleeding disorders. ONCOLOGIC: Denies personal history of malignancy. DERMATOLOGIC: Denies rashes or pruritus. PSYCHIATRIC: Denies any suicidal or homicidal ideation. Denies hallucinations. PHYSICAL EXAM GENERAL APPEARANCE: Extubated, awake, following commands. NEUROLOGICAL: Cranial nerves II-XII grossly intact. Motor is 5/5 in bilateral upper and lower extremities proximal to distal. No sensory deficits. HEENT: Face is symmetric. Pupils are equal and reactive. Extraocular movements are intact. NECK: Supple. No JVD. No thyromegaly. No submental, submandibular, pre- /postauricular, occipital or supraclavicular lymphadenopathy. CHEST: Normal chest expansion. No Telemetry. LUNGS: minimal crackles noted of the bilateral lung bases CARDIOVASCULAR: Regular. S1 and S2 normal. No appreciable rubs, murmurs or gallops. ABDOMEN: Soft, nontender, and nondistended. There is no rebound, voluntary guarding, or rigidity. : Deferred. No Coombs. EXTREMITIES: trace edema noted of the bilateral lower extremities SKIN: No skin breakdown. Vital Signs (last 8hr) Date Time Temp Pulse Resp B/P (MAP) Pulse Ox O2 Delivery O2 Flow Rate FiO2 09/02/25 11:18 09/02/25 10:54 92 17 116/68 (84) 98 09/02/25 10:39 89 14 120/63 (82) 96 09/02/25 10:24 92 19 106/62 (77) 99 09/02/25 10:09 89 17 117/67 (84) 98 09/02/25 09:54 88 18 122/69 (86) 99 09/02/25 09:39 85 19 114/58 (76) 97 09/02/25 09:24 84 15 120/62 (81) 99 09/02/25 09:09 84 19 121/49 (73) 100 09/02/25 08:54 92 18 116/79 (91) 100 09/02/25 08:39 78 24 119/62 (81) 97 09/02/25 08:24 86 24 108/54 (72) 98 09/02/25 08:10 20 N/Cannula Low lpm 2.0 28 09/02/25 08:09 86 14 127/45 (72) 98 09/02/25 08:00 97.7 09/02/25 07:54 77 10 134/63 (86) 99 09/02/25 07:39 80 12 120/58 (78) 99 09/02/25 07:24 79 10 103/58 (73) 100 09/02/25 07:09 80 11 91/49 (63) 100 09/02/25 06:00 83 23 100 09/02/25 05:54 83 15 109/68 (82) 99 09/02/25 05:45 83 15 100 09/02/25 05:39 86 18 122/53 (76) 99 09/02/25 05:30 85 22 99 09/02/25 05:26 87 28 107/53 (71) 98 09/02/25 05:15 82 11 100 09/02/25 05:09 82 11 103/60 (74) 100 09/02/25 05:00 85 18 100 09/02/25 04:45 88 17 100 09/02/25 04:40 89 14 102/46 (64) 98 09/02/25 04:30 86 23 100 09/02/25 04:24 87 19 124/92 (103) 99 09/02/25 04:23 98 Nasal Cannula* 2 28 09/02/25 04:15 87 16 100 09/02/25 04:13 98.1 98 Nasal Cannula 2.0 09/02/25 04:09 88 21 109/63 (78) 99 09/02/25 04:00 87 14 100 09/02/25 03:54 89 24 106/67 (80) 99 LABS: Laboratory: Test 09/02/25 05:59 09/02/25 04:34 09/01/25 10:14 09/01/25 04:19 Range/Units Whole Blood Glucose 168 H 70-110 MG/DL White Blood Count 11.3 H 4.8-10.8 K/uL Red Blood Count 3.10 L 4.00-5.50 MIL/uL Hemoglobin 9.4 L 12.0-16.0 g/dL Hematocrit 29.9 L 36-48 % Mean Corpuscular Volume 96.5 79-99 fL Mean Corpuscular Hemoglobin 30.3 27.0-33.0 pg Mean Corpuscular Hemoglobin Concent 31.4 L 32.0-36.0 g/dL Red Cell Distribution Width 17.8 H 11.0-15.5 % Platelet Count 300 # 130-400 K/uL Mean Platelet Volume 10.2 7.5-10.5 fL Immature Granulocyte % (Auto) 0.5 0-1 % Neutrophils (%) (Auto) 69.4 40.0-77.0 % Lymphocytes (%) (Auto) 15.2 L 21.0-51.0 % Monocytes (%) (Auto) 8.6 3.0-13.0 % Eosinophils (%) (Auto) 5.9 0.0-8.0 % Basophils (%) (Auto) 0.4 0.0-5.0 % Neutrophils # (Auto) 7.9 H 1.8-7.7 K/uL Lymphocytes # (Auto) 1.7 1.0-4.8 K/uL Monocytes # (Auto) 1.0 0.1-1.0 K/uL Eosinophils # (Auto) 0.67 0.00-0.70 K/uL Basophils # (Auto) 0.05 0.00-0.20 K/uL Absolute Immature Granulocyte (auto 0.06 0-1 K/uL Nucleated Red Blood Cells 0.0 0.0-0.19 % Sodium Level 140 136-145 mmol/L Potassium Level 3.4 L 3.5-5.1 mmol/L Chloride Level 98 L 101-111 mmol/L Carbon Dioxide Level 34 H 21-32 mmol/L Blood Urea Nitrogen 14 7-18 mg/dL Creatinine 0.8 0.5-1.0 mg/dL Glomerular Filtration Rate Calc 85 >90 mL/min Random Glucose 176 H 70-105 mg/dL Total Calcium 8.0 L 8.5-10.1 mg/dL Magnesium Level 1.70 L 1.80-2.40 mg/dL Total Bilirubin 0.6 0.2-1.0 mg/dL Aspartate Amino Transf (AST/SGOT) 54 H 10-37 U/L Alanine Aminotransferase (ALT/SGPT) 29 12-78 U/L Alkaline Phosphatase 181 H 50-136 U/L Total Protein 7.2 6.0-8.3 g/dL Albumin 1.8 L 3.5-5.0 g/dL Uric Acid 3.7 2.6-7.2 mg/dL Red Blood Cell Morphology See comments Test 08/31/25 15:01 Range/Units Blood Gas Specimen Type Arterial Arterial Blood pH 7.470 H 7.350-7.450 Arterial Blood Partial Pressure CO2 37 32-45 mmHg Arterial Blood Partial Pressure O2 81.1 L 83.0-108.0 mmHg Arterial Blood HCO3 26.5 21.0-28.0 mmol/L Arterial Blood Oxygen Saturation 95.7 94.0-98.0 % Arterial Blood Base Excess 2.8 -2.0-3.0 mmol/L Hemoglobin (Blood Gas) 10.6 L 12.0-16.0 g/dL Sodium (Blood Gas) 136 136-145 MMOL/L Bedside Potassium (Blood Gas) 3.8 3.4-4.5 MMOL/L Bedside Chloride (Blood Gas) 98 98-107 MMOL/L Bedside Glucose (Blood Gas) 181 H 65-95 MG/DL Bedside Ionized Calcium (Blood Gas) 1.10 L 1.15-1.33 MMOL/L Bedside Lactic Acid (Blood Gas) 1.33 H 0.36-0.75 MMOL/L Blood Gas Temperature 37.0 35.5-37.0 CELSIUS Blood Gas Vent Mode CPAP 5-5 ROOM AIR FiO2 30.0 % Blood Gas Specimen Comment LBBRIZA Current Medications Medications (Trade) Dose Ordered Sig/Elmer Route PRN Reason Start Time Stop Time Status Last Admin Dose Admin Acetaminophen (TYLenol 325MG TAB) 650 mg Q4H PRN PO Temp >38.3C(AFTER EXTUBATION) 08/20/25 17:00 09/19/25 16:59 Acetaminophen (TYLenol 325MG TAB) 650 mg Q6H PRN PO MILD PAIN (1-3) 08/13/25 16:30 09/12/25 16:29 08/23/25 11:01 650 MG Acetaminophen (TYLenol 500MG TAB) 500 mg Q6H PRN PO TEMP < 101.1 AND/OR HEADACHE 08/14/25 14:30 09/13/25 14:29 08/26/25 10:41 500 MG Acetaminophen (TYLenol 650MG SUPPOSITORY) 650 mg Q4H PRN RC Temp >38.3C WHILE INTUBATED 08/20/25 17:00 09/19/25 16:59 Acetaminophen (acetaMINOPHEN 1,000MG/100ML) 1,000 mg Q6H6 IVPB 08/21/25 12:00 09/20/25 11:59 09/02/25 06:12 1,000 MG Albumin Human 50 ml @ 0 mls/hr BID IV 08/18/25 09:00 08/23/25 08:59 DC 08/22/25 20:56 100 MLS/HR Albumin Human 250 ml @ 0 mls/hr AD PRN IV IF HEMODYNAMICALLY UNSTABLE 08/20/25 17:00 08/20/25 22:46 DC 08/20/25 22:46 0 MLS/HR Aminocaproic Acid 99695 mg/Sodium Chloride 310 ml @ 25 mls/hr AD IV 08/20/25 17:00 08/21/25 05:23 DC Aminocaproic Acid 27918 mg/Sodium Chloride 480 ml @ 0 mls/hr AD PRN IV BLEEDING CONTROL 08/20/25 08:00 09/02/25 07:55 DC Aminocaproic Acid 33346 mg/Sodium Chloride 480 ml @ 0 mls/hr AD PRN IV BLEEDING CONTROL 08/20/25 09:00 08/20/25 09:03 DC Amiodarone HCl (pacERONE 200MG) 200 mg BID PO 08/22/25 09:00 08/29/25 21:00 DC 08/28/25 20:25 200 MG Amiodarone HCl 360 mg/Dextrose 207.2 ml @ 33.3 mls/hr AD IV 08/20/25 21:00 08/20/25 21:05 DC Amiodarone HCl 540 mg/Dextrose 310.8 ml @ 16.7 mls/hr [id number] IV 08/21/25 03:00 08/27/25 06:20 DC 08/21/25 20:12 16.7 MLS/HR Amiodarone HCL/ Dextrose 207.2 ml @ 33.3 mls/hr AD IV 08/20/25 21:30 08/21/25 10:49 DC 08/20/25 21:24 33.3 MLS/HR Aspirin (Aspirin 81mg Chew Tab) 81 mg DAILY PO 08/14/25 09:00 09/13/25 08:59 09/02/25 09:03 81 MG Atorvastatin Calcium (LIPItor 40MG) 40 mg HS PO 08/13/25 21:00 09/12/25 20:59 09/01/25 20:44 40 MG Benzocaine (Cepacol Sore Throat Lozenge) 1 each Q4H PRN MM SORE THROAT 08/26/25 11:30 09/25/25 11:29 Bisacodyl (DulcoLAX) 10 mg DAILY RC 08/17/25 09:00 08/20/25 08:59 DC 08/18/25 07:58 10 MG Calcium Carbonate (Tums 500 Mg Chew Tab) 500 tab QID PRN PO HEARTBURN 08/19/25 12:00 08/20/25 16:32 DC 08/20/25 05:10 1 TAB Calcium Gluconate 1 gm/Sodium Chloride 60 ml @ 200 mls/hr AD PRN IV HYPOCALCEMIA 08/20/25 17:00 09/19/25 16:59 08/30/25 03:43 200 MLS/HR Cefazolin Sodium (Ancef) 2 gm ONCALL IVP 08/19/25 19:30 08/21/25 08:36 DC 08/20/25 16:30 2 GM Cefazolin Sodium (Ancef) 2 gm Q8H IVPB 08/20/25 22:00 08/21/25 14:01 DC 08/21/25 13:45 2 GM Ceftriaxone Sodium (Rocephin 2gm Inj) 2 gm Q24H IVPB 08/14/25 11:30 08/24/25 11:29 DC 08/23/25 12:16 2 GM Chlordiazepoxide HCl (LIBrium 25 MG CAP) 25 mg Q2H PRN PO ALCOHOL WITHDRAWAL PROTOCOL 08/14/25 14:30 08/20/25 16:32 DC 08/16/25 23:38 25 MG Chlordiazepoxide HCl (LIBrium 25 MG CAP) 50 mg Q1H PRN PO ALCOHOL WITHDRAWAL PROTOCOL 08/14/25 14:30 08/20/25 16:32 DC Dexmedetomidine/ Sodium Chloride (PRECEdex 400MCG/ 100ML-NS) 400 mcg PROTOCOL IV 08/20/25 20:30 09/19/25 20:29 08/31/25 06:18 400 MCG Dextrose (D50w) 50 ml AD PRN IV HYPOGLYCEMIA PROTOCOL 08/20/25 17:00 09/19/25 16:59 Dextrose (D50w) 50 ml AD PRN IV HYPOGLYCEMIA PROTOCOL 08/13/25 20:00 08/20/25 22:03 DC Diphenhydramine HCl (BENAdryl INJ) 25 mg ONCE PRN IV ITCHING 08/15/25 23:00 08/17/25 22:59 DC Docusate Sodium (COLace 100MG CAP) 100 mg BID PRN PO CONSTIPATION 08/14/25 11:00 09/13/25 10:59 Dopamine HCl/ Dextrose 250 ml @ 0 mls/hr PROTOCOL IV 08/13/25 16:00 09/12/25 15:59 08/16/25 16:41 3 MLS/HR Epinephrine HCl 10 mg/Sodium Chloride 250 ml @ 14.091 mls/ hr AD PRN IV POST-OP CARDIOVASCULAR ORDERS 08/20/25 17:00 08/21/25 10:49 DC Epinephrine HCl 10 mg/Sodium Chloride 250 ml @ 0 mls/hr AD PRN IV TITRATE 08/20/25 08:00 09/19/25 07:59 08/26/25 16:56 0 MLS/HR Epinephrine HCl 10 mg/Sodium Chloride 250 ml @ 0 mls/hr AD PRN IV TITRATE 08/20/25 09:00 08/20/25 09:03 DC Famotidine (Pepcid 20mg Vial) 20 mg BID IV 08/20/25 21:00 08/22/25 08:20 DC 08/21/25 20:17 20 MG Famotidine (Pepcid 20mg Tab) 20 mg BID PO 08/22/25 09:00 09/21/25 08:59 09/02/25 09:04 20 MG Folic Acid (FOLic ACID 1 MG TABLET) 1 mg DAILY PO 08/15/25 09:00 08/17/25 09:01 DC 08/17/25 07:46 1 MG Furosemide (LASix 20MG VIAL) 20 mg Q12H IV 08/21/25 11:30 08/22/25 14:17 DC 08/22/25 11:53 20 MG Furosemide (LASix 20MG VIAL) 20 mg Q12H IV 08/22/25 21:00 08/23/25 11:37 DC 08/23/25 09:50 20 MG Furosemide (LASix 20MG VIAL) 40 mg Q12H IV 08/22/25 21:00 08/22/25 14:32 DC Furosemide (LASix 40MG VIAL) 40 mg Q12H IV 08/23/25 11:30 08/30/25 11:08 DC 08/29/25 22:38 40 MG Furosemide (LASix 40MG VIAL) 40 mg Q12H IV 09/02/25 11:00 10/02/25 10:59 Furosemide 100 mg/ Sodium Chloride 100 ml @ 0 mls/hr PROTOCOL IV 08/30/25 11:30 09/02/25 10:56 DC 09/02/25 09:12 10 MLS/HR Gabapentin (NEURontin 300 MG CAP) 300 mg TID PO 08/23/25 14:00 09/22/25 13:59 09/02/25 09:03 300 MG Glucagon (Glucagon 1mg Kit) 1 mg AD PRN IM HYPOGLYCEMIA PROTOCOL 08/20/25 17:00 09/19/25 16:59 Glucagon (Glucagon 1mg Kit) 1 mg AD PRN IM HYPOGLYCEMIA PROTOCOL 08/13/25 20:00 08/21/25 10:49 DC Heparin Sodium (Porcine) (HEParin 5,000 UNIT VIAL) *calculation based on ACTUAL B... AD PRN IV HEPARIN PROTOCOL 08/13/25 16:30 08/20/25 16:32 DC 08/17/25 04:46 3,175 UNIT Heparin Sodium/ Dextrose 250 ml @ 0 mls/hr PROTOCOL IV 08/21/25 11:30 09/20/25 11:29 08/28/25 15:28 10.54 MLS/HR Heparin Sodium/ Dextrose 250 ml @ 0 mls/hr Q6H IV 08/13/25 16:30 08/20/25 16:32 DC 08/19/25 22:03 11.78 MLS/HR Insulin Glargine (LANtus 100 UNITS/ML 10 ML VIAL) 5 units BID@0730,2100 SQ 08/16/25 21:00 08/17/25 09:31 DC 08/16/25 21:21 5 UNITS Insulin Glargine (LANtus 100 UNITS/ML 10 ML VIAL) 10 units HS SQ 08/13/25 21:00 08/14/25 06:16 DC 08/13/25 20:21 10 UNITS Insulin Glargine (LANtus 100 UNITS/ML 10 ML VIAL) 15 units DAILY SQ 08/23/25 09:00 08/28/25 07:20 DC 08/27/25 08:35 15 UNITS Insulin Glargine (LANtus 100 UNITS/ML 10 ML VIAL) 20 units DAILY SQ 08/14/25 09:00 08/15/25 07:24 DC 08/14/25 08:01 20 UNITS Insulin Glargine (LANtus 100 UNITS/ML 10 ML VIAL) 20 units DAILY SQ 08/28/25 09:00 09/27/25 08:59 09/02/25 09:01 20 UNITS Insulin Glargine (LANtus 100 UNITS/ML 10 ML VIAL) 30 units DAILY SQ 08/15/25 09:00 08/16/25 07:19 DC 08/15/25 08:28 30 UNITS Insulin Glargine (LANtus 100 UNITS/ML 10 ML VIAL) 35 units DAILY SQ 08/16/25 09:00 08/19/25 07:35 DC 08/18/25 07:59 35 UNITS Insulin Glargine (LANtus 100 UNITS/ML 10 ML VIAL) 42 units DAILY SQ 08/19/25 09:00 08/20/25 06:22 DC 08/19/25 09:40 42 UNITS Insulin Glargine (LANtus 100 UNITS/ML 10 ML VIAL) 45 units DAILY SQ 08/20/25 09:00 08/20/25 16:32 DC Insulin Human Lispro (HumaLOG LISpro 100 UNIT/ML 3ML) INSULIN SLIDING SCAL... ACHS SQ 08/16/25 21:00 08/17/25 09:31 DC Insulin Human Regular (humuLIN R 100 UNIT/ML 3ML) 3 unit TIDAC SQ 08/27/25 07:30 08/27/25 20:56 DC 08/27/25 16:47 3 UNIT Insulin Human Regular (humuLIN R 100 UNIT/ML 3ML) 5 unit TIDAC SQ 08/14/25 17:00 08/15/25 07:24 DC 08/15/25 07:03 5 UNIT Insulin Human Regular (humuLIN R 100 UNIT/ML 3ML) 6 unit TIDAC SQ 08/28/25 07:30 09/27/25 07:29 09/02/25 09:02 6 UNIT Insulin Human Regular (humuLIN R 100 UNIT/ML 3ML) 8 unit TIDAC SQ 08/15/25 07:30 08/15/25 22:46 DC 08/15/25 16:02 8 UNIT Insulin Human Regular (humuLIN R 100 UNIT/ML 3ML) 10 unit TIDAC SQ 08/16/25 07:30 08/17/25 21:12 DC 08/17/25 16:09 10 UNIT Insulin Human Regular (humuLIN R 100 UNIT/ML 3ML) 12 unit TIDAC SQ 08/18/25 07:30 08/18/25 20:19 DC 08/18/25 16:39 12 UNIT Insulin Human Regular (humuLIN R 100 UNIT/ML 3ML) 16 unit TIDAC SQ 08/19/25 07:30 08/20/25 06:22 DC 08/19/25 16:47 16 UNIT Insulin Human Regular (humuLIN R 100 UNIT/ML 3ML) 17 unit TIDAC SQ 08/20/25 07:30 08/20/25 16:32 DC Insulin Human Regular (humuLIN R 100 UNIT/ML 3ML) INSULIN SLIDING SCAL... ACHS SQ 08/17/25 16:30 08/20/25 16:32 DC 08/19/25 21:31 8 UNIT Insulin Human Regular (humuLIN R 100 UNIT/ML 3ML) INSULIN SLIDING SCAL... ACHS SQ 08/22/25 11:30 08/22/25 21:32 DC 08/22/25 20:58 3 UNIT Insulin Human Regular (humuLIN R 100 UNIT/ML 3ML) INSULIN SLIDING SCAL... ACHS SQ 08/23/25 07:30 09/22/25 07:29 09/01/25 20:50 4 UNIT Insulin Human Regular (humuLIN R 100 UNIT/ML 3ML) INSULIN SLIDING SCAL... ACHS SQ 08/13/25 16:30 08/16/25 20:46 DC 08/16/25 20:01 4 UNIT Insulin Human Regular 100 unit/ Sodium Chloride 100 ml @ 0 mls/hr AD IV 08/20/25 17:00 08/22/25 16:59 DC 08/21/25 15:00 5 MLS/HR Iron Sucrose (VenoFER) 200 mg DAILY IV 08/21/25 13:00 08/23/25 09:43 DC 08/22/25 11:53 200 MG Iron Sucrose (VenoFER) 200 mg DAILY IV 08/23/25 09:00 08/26/25 08:57 DC 08/25/25 09:25 200 MG Lidocaine (Lidocaine Patch 4%) 1 each DAILY TP 08/19/25 09:00 09/18/25 08:59 09/02/25 09:04 1 EACH Lidocaine HCl/ Dextrose 250 ml @ 0 mls/hr PROTOCOL IV 08/21/25 00:00 09/20/25 00:00 Lidocaine/ Prilocaine (Emla) 1 appl ONCE TP 08/31/25 13:30 09/01/25 07:33 DC 08/31/25 13:59 1 APPL Magnesium Sulfate 50 ml @ 12.5 mls/hr AD PRN IV MAG LEVEL LESS THAN 2.0 08/20/25 17:00 09/02/25 09:48 DC 09/02/25 09:19 12.5 MLS/HR Magnesium Sulfate 50 ml @ 0 mls/hr PROTOCOL IV 09/02/25 10:00 10/02/25 09:59 Magnesium Sulfate 50 ml @ 0 mls/hr PROTOCOL IV 08/13/25 16:30 08/21/25 10:49 DC 08/21/25 05:58 25 MLS/HR Midodrine (PROAMatine 5 MG TABLET) 5 mg Q6H6 PO 08/26/25 16:00 09/01/25 10:53 DC 09/01/25 06:57 5 MG Midodrine (PROAMatine 5 MG TABLET) 10 mg Q6H6 PO 09/01/25 12:00 10/01/25 11:59 09/02/25 06:12 10 MG Morphine Sulfate (morPHINE 2MG SYG) 0.5 mg Q2H PRN IV MODERATE PAIN (4-6) 08/20/25 17:00 08/20/25 18:07 DC Morphine Sulfate (morPHINE 2MG SYG) 2 mg Q6H PRN IVP SEVERE PAIN (7-10) 08/19/25 18:00 08/20/25 16:32 DC 08/19/25 17:50 2 MG Morphine Sulfate (morPHINE 4MG SYG) 0.5 mg Q2H PRN IV MODERATE PAIN (4-6) 08/20/25 18:30 08/21/25 16:59 DC Morphine Sulfate (morPHINE 4MG SYG) 1 mg Q2H PRN IV SEVERE PAIN (7-10) 08/20/25 17:00 08/21/25 16:59 DC Morphine Sulfate (morPHINE 4MG SYG) 2 mg Q6H PRN IVP SEVERE PAIN (7-10) 08/14/25 09:30 08/19/25 12:29 DC 08/19/25 12:22 2 MG Multivitamins Therapeutic (Multivitamin Tablet) 1 tab DAILY PO 08/15/25 09:00 09/14/25 08:59 09/02/25 09:04 1 TAB Nitroglycerin/ Dextrose 0 ml @ 0 mls/hr AD IV 08/20/25 17:00 08/23/25 16:59 DC Nitroglycerin/ Dextrose 250 ml @ 0 mls/hr PROTOCOL IV 08/20/25 03:30 08/20/25 16:32 DC 08/20/25 03:12 1.5 MLS/HR Norepinephrine 250 ml @ 0 mls/hr PROTOCOL IV 08/13/25 15:30 08/20/25 08:31 DC Norepinephrine Bitartrate 250 ml @ 0 mls/hr AD PRN IV TITRATE 08/20/25 08:00 09/19/25 07:59 09/01/25 23:29 6.18 MLS/HR Norepinephrine Bitartrate 250 ml @ 0 mls/hr AD PRN IV TITRATE 08/20/25 09:00 08/20/25 09:03 DC Norepinephrine Bitartrate 8 mg/ Dextrose 250 ml @ 0 mls/hr AD PRN IV POST-OP CARDIOVASCULAR ORDERS 08/20/25 17:00 08/21/25 10:49 DC Ondansetron HCl (zoFRAN 4MG INJ) 4 mg Q4H PRN IV NAUSEA 08/14/25 14:30 08/20/25 16:32 DC 08/14/25 14:17 4 MG Ondansetron HCl (zoFRAN 4MG INJ) 4 mg Q6H PRN IV NAUSEA/VOMITING 08/20/25 17:00 09/19/25 16:59 08/29/25 12:47 4 MG Ondansetron HCl (zoFRAN 4MG INJ) 4 mg Q6H PRN IVP NAUSEA/VOMITING 08/13/25 16:30 08/14/25 14:08 DC Pantoprazole Sodium (PROTonix 40MG INJ) 40 mg Q12H IVP 08/17/25 16:30 08/20/25 16:32 DC 08/20/25 03:53 40 MG Pantoprazole Sodium (PROTonix 40MG INJ) 40 mg Q24H IVP 08/13/25 16:30 08/17/25 11:10 DC 08/16/25 16:07 40 MG Pharmacy Profile Note (Pharmacy Communication) 1 each PROTOCOL PRN MISC ETOH Withdrawal Score changes 08/14/25 14:30 08/14/25 14:08 DC Phenylephrine HCl 100 mg/Sodium Chloride 250 ml @ 0 mls/hr PROTOCOL IV 08/26/25 20:30 09/25/25 20:29 Piperacillin Sod/ Tazobactam Sod (Zosyn 3.375gm+NS 50ml) 3.375 gm Q8H IV 08/30/25 10:00 09/09/25 09:59 09/02/25 09:18 3.375 GM Polyethylene Glycol (MIRalax 3350 17 GM POWD.PACK) 17 gm DAILY PO 08/15/25 09:00 09/14/25 08:59 09/02/25 09:04 17 GM Potassium Phosphate 250 ml @ 42 mls/hr AD PRN IV LOW PHOS LEVEL 08/20/25 17:00 09/19/25 16:59 Potassium Chloride 100 ml @ 100 mls/hr AD PRN IV HYPOKALEMIA 08/20/25 17:00 09/19/25 16:59 09/02/25 06:57 100 MLS/HR Potassium Chloride 100 ml @ 100 mls/hr AD PRN IV POTASSIUM PROTOCOL 08/13/25 16:30 08/20/25 16:32 DC 08/16/25 16:07 100 MLS/HR Potassium Chloride (K-Dur/Klor-Con 20meq) 20 meq AD PRN PO POTASSIUM PROTOCOL 08/13/25 16:30 08/20/25 16:32 DC 08/15/25 08:23 20 MEQ Potassium Chloride (KCl 10% Elixir 20meq/15ml) 20 meq AD PRN PO POTASSIUM PROTOCOL 08/13/25 16:30 08/20/25 16:32 DC Promethazine HCl (Phenergan) 25 mg Q6H PRN PO NAUSEA 08/14/25 14:30 08/20/25 16:32 DC Propofol 100 ml @ 0 mls/hr AD PRN IV SEDATION 08/20/25 17:00 08/24/25 17:00 DC Sodium Bicarbonate 25 meq/Dextrose 1,000 ml @ 0 mls/hr Q0M IV 08/14/25 00:30 09/13/25 00:29 08/28/25 16:29 14 MLS/HR Sodium Bicarbonate 25 meq/Dextrose 1,000 ml @ 0 mls/hr Q0M IVP 08/14/25 00:30 08/14/25 00:15 DC Sodium Bicarbonate (Sodium Bicarb 50meq 50ml Vial) 50 meq AD PRN IV OTHER[SEE DOSING INSTRUCTIONS] 08/20/25 17:00 08/23/25 16:59 DC 08/21/25 01:19 50 MEQ Sodium Chloride 500 ml @ 500 mls/hr Q1H IV 08/20/25 00:33 08/20/25 03:16 DC 08/20/25 00:53 500 MLS/HR Sodium Chloride 500 ml @ 0 mls/hr AD IV 08/20/25 17:00 09/19/25 16:59 Sodium Chloride 1,000 ml @ 10 mls/hr ONCE IV 08/20/25 17:00 08/21/25 16:59 DC 08/20/25 22:31 10 MLS/HR Sodium Chloride (NS Flush 10ml) 10 ml Q8H PRN IVP IV LINE FLUSH 08/20/25 17:00 09/19/25 16:59 Thiamine HCl (Vitamin B-1) 300 mg DAILY IV 08/15/25 09:00 08/17/25 09:01 DC 08/17/25 07:46 300 MG Ticagrelor (BRILinta) 90 mg BID PO 08/14/25 09:00 08/14/25 21:19 DC 08/14/25 20:09 90 MG Tramadol HCl (UltRAM) 25 mg Q6H PRN PO MODERATE PAIN (4-6) 08/20/25 17:00 08/25/25 16:59 DC Tramadol HCl (UltRAM) 25 mg Q6H PRN PO MODERATE PAIN (4-6) 08/26/25 11:00 08/31/25 10:59 DC 08/27/25 03:12 25 MG Tramadol HCl (UltRAM) 50 mg Q6H PRN PO SEVERE PAIN (7-10) 08/20/25 17:00 08/25/25 16:59 DC 08/25/25 09:24 50 MG Tramadol HCl (UltRAM) 50 mg Q6H PRN PO SEVERE PAIN (7-10) 08/26/25 11:00 08/31/25 10:59 DC 08/29/25 05:39 50 MG Vancomycin HCl 250 ml @ 125 mls/hr Q12H IV 08/18/25 09:00 08/19/25 20:54 DC 08/19/25 09:39 125 MLS/HR Vancomycin HCl 250 ml @ 125 mls/hr Q12H IV 08/24/25 23:00 08/26/25 21:47 DC 08/26/25 11:47 125 MLS/HR Vancomycin HCl 250 ml @ 125 mls/hr Q8H IV 08/19/25 21:30 08/21/25 00:23 DC 08/20/25 22:26 125 MLS/HR Vancomycin HCl 250 ml @ 125 mls/hr Q8H IV 08/21/25 06:30 08/21/25 08:35 DC 08/21/25 08:15 125 MLS/HR Vancomycin HCl 250 ml @ 125 mls/hr Q8H IV 08/21/25 08:00 08/21/25 06:28 DC Vancomycin HCl 250 ml @ 125 mls/hr Q8H IV 08/21/25 16:30 08/24/25 16:54 DC 08/24/25 09:32 125 MLS/HR Vancomycin HCl (Vancomycin Protocol) 1 each AD IV 08/17/25 22:00 08/26/25 21:47 DC Wound Care/ Dressing Products (Venelex Ointment) 1 GM BID TP 09/01/25 09:00 09/30/25 20:59 09/02/25 09:04 1 GM Wound Care/ Dressing Products (Venelex Ointment) 1 gm BID TP 08/31/25 21:00 09/01/25 07:35 DC 08/31/25 21:26 1 GM DIAGNOSTICS / RADIOLOGY: [ ] ASSESSMENT: Cardiogenic shock with lactic acidosis, POA NSTEMI/ACS, POA Complete heart block, POA History of multivessel coronary artery disease, POA History of cocaine use disorder, POA Severe nonketotic hyperglycemia, POA History of to poorly controlled type 2 diabetes mellitus, POA Lactic acidosis, POA History of anemia, POA History of gastritis, POA History of hypertension, POA History of PTSD/anxiety, POA Obesity, POA Medical noncompliance, POA PLAN: patient is seen and examined at bedside, case discussed with the RN, remains admitted to the ICU, at the time of my visit she is alert oriented x3, remains on Lasix Levophed getting IV antibiotics. Oriented patient is status post coronary artery bypass grafting, status post right femoral artery repair. Cardiothoracic input noted and appreciated, input has been noted, Impella has been successfully unit, patient will remain on low-dose Levophed, Lasix, IV antibiotics, continue chest tube in place. Patient supplemental oxygen via nasal cannula at 2 L to keep oxygen saturation greater than 92%. Continue to follow critical care input recommendation, follow a.m. labs. NEURO: MINIMIZE CENTRAL ACTING MEDICATIONS POSSIBLE. FALL PRECAUTIONS. WELL LIGHTED ROOM THROUGH THE DAY AND MINIMIZE INTERRUPTIONS THROUGH THE NIGHT TO PREVENT ACUTE DELIRIUM. PULMONARY: SUPPLEMENTAL 02 NEEDED BIPAP NECESSARY, FOR RESPIRATORY DISTRESS TITRATE FIO2 TO KEEP SPO2 > OR = 90% DUONEBS AND CPT NEEDED IS HOURLY WHILE AWAKE FOR PULMONARY HYGIENE PRN OUT OF BED TO CHAIR TOLERATED MAINTAIN ASPIRATION PRECAUTIONS AT ALL TIMES CARDIOVASCULAR: FOLLOW HEMODYNAMICS. VITAL SIGNS PER FACILITY PROTOCOL GI & NUTRITION: CONTINUE NUTRITIONAL SUPPORT ASPIRATIONS PRECAUTIONS PROKINETIC AGENTS AND LAXATIVES NEEDED KIDNEYS & ELECTROLYTES: STRICT MONITORING OF INTAKE AND OUTPUT DAILY WEIGHTS AVOID NEPHROTOXIC AGENTS MONITOR ELECTROLYTES AND REPLACE NEEDED GOAL URINE OUTPUT OF 30ML/HR OR 0.5ML/KG/HR MEDICATIONS TO BE DOSED ACCORDING TO RENAL FUNCTION. AVOID CONTRAST IF POSSIBLE ENDOCRINE: MAINTAIN BLOOD GLUCOSE BETWEEN 100-180 AT ALL TIMES. INSULIN SLIDING SCALE FOR BLOOD GLUCOSE MANAGEMENT HYPOGLYCEMIA AND HYPERGLYCEMIA PROTOCOL IN PLACE INFECTIOUS DISEASE: TREND TEMPERATURE, WBC AND PROCALCITONIN LEVEL FOLLOW CULTURES, DEESCALATE ANTIBIOTICS SOON POSSIBLE. PANCULTURE IF NEW ONSET FEVER HEMATOLOGY & COAGULATION: MONITOR H&H. KEEP HGB > 7 TRANSFUSE 1 UNIT OF PRBC FOR HGB < 7 TRANSFUSE 1 PACK OF PLATELETS OF PLATELETS < 20, 000 WATCH FOR ANY SIGNS AND SYMPTOMS OF BLEEDING SKIN: PRESSURE ULCER PREVENTION PER FACILITY PROTOCOL SPECIALTY MATTRESS NEEDED ORTHO/REHAB CONTINUE PT/OT PRN: MEDICATIONS TYLENOL 650 MG PO EVERY 4 HRS FOR FEVER ZOFRAN 4 MG IV EVERY 6 HRS FOR N/V HYDRALAZINE 5 MG IV EVERY 4 HRS SYSTOLIC PRESSURE > 160 BOWEL REGIMENT: LACTULOSE 20 GM PO BID PRN CONSTIPATION SUPPORTIVE MEASURES: CONTINUE GI AND DVT PROPHYLAXIS DISPOSITION: PENDING IMPROVEMENT IN CLINICAL CONDITION ALL QUESTIONS ANSWERED TIME SPENT: > 35 MIN GEE MARTIN MD Sep 02, 2025 11:50
--- NOTE | 2025-09-02 13:08 | NUR ---
NUERONTIN WAS WITH HELD FOR THIS THOSE DUE TO BEING SO DROWSY.
--- NOTE | 2025-09-02 14:54 | HMCIMG ---
EXAM: CR Chest, 1 View. CLINICAL HISTORY: s/p extubation. COMPARISON: CR - CHEST 1VW - 09/01/25 05:10 EDT FINDINGS: LUNGS: Pulmonary vascular congestion with mild interstitial and alveolar pulmonary edema. Area of haziness in right mid and lower zone likely airspace opacity possibility of consolidation merits consideration. PLEURAL SPACES: Small bilateral pleural effusions, left greater than right. No pneumothorax. MEDIASTINUM: Stable mild cardiomegaly with post-CABG median sternotomy wires and surgical clips. [place]???Guillaume catheter present with tip projecting over the main pulmonary artery, in appropriate position. No interval mediastinal widening. BONES: No acute or aggressive appearing osseous lesion detected. IMPRESSION: * [place]???Guillaume catheter in appropriate position. * Mild interstitial and alveolar pulmonary edema, similar to prior. * Small bilateral pleural effusions, left greater than right. * Stable mild cardiomegaly with post-CABG changes. * No pneumothorax or new acute cardiopulmonary abnormality. 6. Area of haziness in right mid and lower zone likely airspace opacity possibility of consolidation -new finding compared to previous radiograph. Compared with 09/01/25 05:10 EDT, Right mid and lower zone opacities appears to be a new finding. /[place]
[2025-09-03] VITALS (78 sets, daily range): BP systolic 90–129; BP diastolic 37–78; PULSE 64–81; RESP 11–23; TEMP 97.6–98.8; O2SAT 96–99
--- NOTE | 2025-09-03 04:13 | PN ---
TIME: 10:00 a.m. SUBJECTIVE: The patient is a 60-year-old female, who is status post CABG from 08/20/2025. No major events overnight. Continues to have transvenous pacer in place. PHYSICAL EXAMINATION: NEUROLOGIC: Alert and oriented. CARDIAC: S1 and S2, regular rate and rhythm. RESPIRATORY: Clear to auscultation bilaterally. Incision is clean, dry and intact. ASSESSMENT AND PLAN: * Coronary artery disease, status post coronary artery bypass graft, still on low-dose Levophed, on midodrine 10 mg t.i.d., on aspirin and statin. Also has transvenous pacer in place. * Zay arrhythmias. The patient has transvenous pacer. Wound Nurse is planning to potentially do pacemaker. We will refer to them for further recommendations. * Acute blood loss anemia, status post surgery. No evidence of active bleeding. We will continue to monitor and transfuse if hemoglobin is less than 7. TID: [id number] RECEIPT: [id number]
--- NOTE | 2025-09-03 05:55 | NUR ---
REFUSED SHOWER AND CARE PT DOESN'T WANT TO CHANGE POSITION '
--- NOTE | 2025-09-03 06:29 | PN ---
[facility] Cardiology Progress Note CARDIOLOGY PROGRESS NOTE SEPTEMBER 03, 2025 Problems: 1. Non ST-elevation myocardial infarction in the setting of cocaine abuse complicated by cardiogenic shock requiring Impella support 2. Severe multivessel CAD with acute occlusion of the right coronary artery unable to be revascularized percutaneously with preop ejection fraction of 50% by echo status post aortocoronary bypass graft surgery with a BRO graft to the LAD saphenous graft to the obtuse marginal artery and saphenous graft to the 2nd diagonal artery 3. Ventricular standstill after anesthesia induction for removal of Impella device August 29 2025 4. Remote history of CVA 5. Diabetes mellitus type 2 uncontrolled on admission 6. Tobacco dependence 7. Dyslipidemia 8. Noncompliance with medication and follow up 9. Postop Ejection fraction of 45-50% The patient is currently awake alert. Chest tube is out. She continues on low- dose norepinephrine. Blood pressure running 110 systolic heart rate in the 70s. The patient is afebrile. White count 15207 hemoglobin 9.4 platelet count 102488. Potassium 3.4 BUN 14 creatinine 0.8. The patient continues on aspirin atorvastatin heparin protocol furosemide gabapentin insulin scale midodrine antibiotics. Venous Dopplers had shown no evidence of DVT. Does complain of pain in the right leg. Extremity is warm. We will obtain arterial Dopplers of the right leg post Impella pump removal. Timing of pacemaker implant has per Kristi Lawson. Indication for full-dose anticoagulation is unclear. We will recommend discontinuing this and placing her on Lovenox for DVT prophylaxis. CHIRAG GATES MD Sep 03, 2025 06:28
[2025-09-03 07:26] LABS: IMMATURE GRANULOCYTE ABSOLUTE 0.04 K/uL (0-1); NUCLEATED RED BLOOD CELLS 0.0 % (0.0-0.19); PLATELET COUNT (AUTO) 301 K/uL (130-400); RED BLOOD CELL COUNT(AUTO) 3.00 MIL/uL (4.00-5.50); RED CELL DISTRIBUTION WIDTH 17.5 % (11.0-15.5); WHITE BLOOD COUNT (AUTO) 8.6 K/uL (4.8-10.8)
[2025-09-03 07:43] LABS: ASPARTATE AMINOTRANSFERASE 45.0 U/L (10-37); CREATININE 0.7 mg/dL (0.5-1.0); GLOMERULAR FILTR. RATE CALC 100.0 mL/min (>90); GLUCOSE,RANDOM 171.0 mg/dL (70-105); SODIUM SERUM 138.0 mmol/L (136-145); TOTAL PROTEIN, SERUM 7.0 g/dL (6.0-8.3); UREA NITROGEN, BLOOD 16.0 mg/dL (7-18)
[2025-09-03] MEDS: ENOXAPARIN SODIUM 40 MG/0.4 ML SYRINGE SQ SCH (08:22)
--- NOTE | 2025-09-03 09:37 | PN ---
This is a 60-year-old female with a history of coronary artery disease, hypertension, type 2 diabetes mellitus, history of CVA in 2009 and history of polysubstance abuse with tobacco, cocaine and benzodiazepines. She was admitted 08/13/2025 secondary to a non-STEMI with cardiogenic shock and complete heart block. Initial EKG 08/13/2025 showed complete heart block with a junctional escape rhythm at 41 bpm. The junctional escape rhythm had a left bundle branch morphology. She underwent left heart catheterization 08/13/2025 which showed multivessel coronary artery disease with attempted PCI to the distal RCA with 100% occlusion (unable to cross) with placement of Impella and transvenous pacemaker via right common femoral vein. She is status post off-pump CABG x 3 with left atrial appendage ligation 08/20/2025. She developed intermittent complete heart block on 08/26/2025 and 08/29/2025 with prolonged ventricular asystole for anesthesia induction for removal of Impella. He is currently in sinus rhythm with heart rates in the 70s. Of note is that the transvenous pacemaker is no longer capturing. She underwent a limited echocardiogram 09/01/2025 which shows an ejection fraction of 45-50% with hypokinetic inferior wall, no pericardial effusion. Chest x-ray 09/02/2025 showed mild interstitial and alveolar pulmonary edema with small bilateral pleural effusions, left greater than right, and right mid and lower zone opacities which is a new finding. White blood count 8.6, hemoglobin 9.3, hematocrit 28.9, platelets 301, creatinine 0.7, potassium 3.3, magnesium 2.0. She is doing well this morning offers up no new cardiac complaints. She denies chest pain, shortness or breath, dizziness or weakness. On exam she is in no acute distress, regular rate and rhythm, lungs are clear to auscultation bilaterally, no lower extremity edema is noted. ASSESSMENT: 1. Non-STEMI. 2. Multivessel coronary artery disease status post CABG x 6 with RUPALI ligation 08/20/2025. 3. Cardiogenic shock stage D. 4. Complete heart block. 5. Right bundle branch block. 6. First degree AV block. 7. Nonsustained polymorphic ventricular tachycardia. 8. 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 PLAN: Discussed with Dr. Lawson 1. She presented with a non-STEMI and cardiogenic shock with complete heart block with a junctional escape rhythm in the 40s (left bundle branch morphology) which resolved on 08/14/2025. She has intermittent complete heart block with an episode of prolonged ventricular asystole in the setting of anesthesia induction for removal of Impella on 08/29/2025. She is currently in sinus rhythm with heart rates in the 70s. She will require permanent pacing due to alternating right and left bundle-branch block prolonged ventricular asystole suggesting distal conduction system disease. 2. The procedure was discussed with her in detail and she wishes to proceed. 3. We will make NPO after midnight. Hold enoxaparin in the a.m.. Vitals/Labs Vital Signs Date Time Temp Pulse Resp B/P (MAP) Pulse Ox O2 Delivery O2 Flow Rate FiO2 09/03/25 08:00 97 Nasal Cannula* 2 28 09/03/25 06:43 74 20 09/03/25 05:00 09/03/25 04:00 97.5 Laboratory Tests 09/03/25 07:20 BRANDON MEDINA PAC Sep 03, 2025 09:37
[2025-09-03] MEDS: VANCOMYCIN KIT 1 GM/250 ML IV.KIT IV ONE (10:00)
--- NOTE | 2025-09-03 10:00 | NUR ---
scheduled PPM AT THIS TIME, SPOKE TO RIKKI .
--- NOTE | 2025-09-03 10:08 | NUR ---
pt aaox3. no distress noted, vitals as charted, pt aware of risks and benefits for permanent pacemaker as informed by peyton ortega for dr. farmer, pt voiced understanding and signed consent at this time.
--- NOTE | 2025-09-03 11:06 | NUR ---
pt aaox3. no distress noted, vitals as charted, pt aware of risks for midline catehter insertion, pt voiced understanding and signed consent at this time.
--- NOTE | 2025-09-03 11:20 | NUR ---
[facility] Follow-up: Patient re-assessed by wound healing team, Wound improving. Assessment and recommendations provided to primary nurse Education provided. Addendum: 09/04/25 at 1109 by LINH MADISON RN RN/ Amended: Links added.
--- NOTE | 2025-09-03 12:51 | PN ---
[facility] PROGRESS NOTE Date of Service: Sep 03, 2025 Time of Service: 12:49 SUBJECTIVE: This is a 60-year-old female with underlying history of obesity, coronary artery disease, poorly controlled type 2 diabetes mellitus, history of anemia, history of cocaine use, tobacco use disorder, history of CVA in 2008, who presented to the ER for further evaluation of severe substernal chest pain and shortness of breadth. Patient reports having history of cocaine use with last use of cocaine yesterday. She reports having severe substernal chest pain that started today in it has been associated with dizziness, and generalized malaise. Pain is 10/1 0 in severity. Patient denies any syncope or fall. She has been having lightheadedness with ambulation. She has not been able to follow up with Cardiology as outpatient. She has a previous history of abnormal CT coronary angiography when she was hospitalized in 04/2025 and she was treated medically. With regards to type 2 diabetes mellitus, she reports being on metformin as ou tpatient. On presentation to the hospital, patient was noted to be hypotensive with blood pressure of 80/60 with heart rate of 40 with EKG showing complete heart block. Labs [place] [address], hemoglobin 12.4, platelet count of [id number]. BMP showed sodium of 133, potassium 4.8, chloride of 99, BUN of 21, creatinine 1.0, blood glucose of 403, [place] [id number]. Chest x-ray showed no acute infiltrates. Patient will be admitted for further management of cardiogenic shock, NSTEMI, complete heart block with history of poorly controlled type 2 diabetes mellitus. Patient will be emergently taken to the [facility] for cardiac catheterization/ PCI and tentative plan for MCS support. Patient will be admitted to intensive care unit and she remains critically ill. 08/14 patient remains critically ill requiring Impella and dopamine support. UDS has demonstrated benzos and cocaine 08/15 patient remains on Impella 08/16 patient appears to be resting comfortably in bed. She remains on Impella and dopamine support. She reports she would like to be bathed and wants her hair combed significant and she is feeling better 08/17 patient is on GI soft diet tolerating well. She remains on Impella support 08/18 patient is resting comfortably in bed. She remains on Impella. Tolerating oral intake. 08/19 hemoglobin dropped to 6.5 from 7.0-7.5 yesterday. I agree with transfusing 1 unit PRBC. Patient remains on Impella. Patient is resting comfortably in bed. 08/20 patient is resting comfortably in bed. She remains on Impella support pending recovery for CABG. 08/21 patient underwent CABG x3 yesterday, no complications reported patient remains on Impella the patient is on norepinephrine, amiodarone, dopamine, insulin drip 08/22 postop day 2. From CABG x3. Patient does awaken to verbal stimulation and states she has some chest pain and slight shortness for breath she feels the pain as incisional from her open heart procedure. He is on p.o. amiodarone and being weaned off norepinephrine. 08/23 postop day 3 from CABG x3. Patient is in bed visiting with her son at the bedside. She states she has no shortness for breath, she does have some incisional chest discomfort, no nausea or vomiting or diarrhea. She is off nor epinephrine drip and remains with the Impella assist. 08/24 patient is seen and examined at bedside, discussed with the RN, no acute events overnight, remains with the Impella support, postoperative day four from CABG x3. She is awake, following commands. Off vasopressors. Remains on heparin drip and sodium bicarbonate drip. Continue to follow critical Care and Cardiothoracic input and recommendation. 08/25 PATIENT IS SEEN AND EXAMINED AT BEDSIDE, DISCUSSED WITH THE RN, NO ACUTE EVENTS OVERNIGHT, PATIENT FOLLOWING COMMANDS, SHE REMAINS WITH THE IMPELLA SUPPORT, CHEST TUBE IN PLACE, POSTOPERATIVE DAY FIVE, STATUS POST CABG. CU RRENTLY OFF PRESSORS, ON HEPARIN DRIP. CONTINUE TO FOLLOW CRITICAL CARE AND CARDIOTHORACIC INPUT AND RECOMMENDATIONS. POSSIBLE REMOVAL OF IMPELLA SUPPORT TODAY. 08/26 patient is seen and examined at bedside, discussed with the RN, no acute events overnight, remains with the Impella support, postoperative day four from CABG x6. She is awake, following commands. Off vasopressors. Remains on heparin drip, continue with chest tube in place, continue to follow Cardiothoracic input and recommendation. 08/27 patient is seen and examined at bedside, case discussed with the RN, no acute events overnight, patient awake, following commands, still with the Impella support, status post CABG. No chest pain, shortness shortness for breath, no nausea, no vomiting. Continue with chest tube in place. BP 132/74, afebrile, saturating 99% 4 L nasal cannula. CBC with a hemoglobin 9.0, hematocrit 28.1, WBC 12.2, with a platelet count of 152. Sodium 140, potassium 4.0, BUN of 12, creatinine 0.6, initially 2.10. Cardiology input noted and appreciated, echocardiogram ordered, we will follow report. Continue to follow Cardiothoracic input and recommendation. 08/28 patient is seen and examined at bedside, case discussed with the RN, no acute events overnight, patient remains admitted to the ICU, the time of my visit, awake, following command, NPO, she is scheduled to be taken to the operating room today for removal of Impella support by cardio thoracic surgeons, we will continue to follow input and recommendation. Limited 2D echo performed yesterday shows left ventricular cavity size is normal, Impella device measuring 5.6 cm into LV. Left ventricular ejection fraction 55-60%, no pericardial effusion. 08/29 patient is seen and examined at bedside, case discussed with the RN, no acute events overnight, patient remains admitted to the ICU, the time of my visit, awake, following command, NPO, she is scheduled to be taken to the operating room today for removal of Impella support by cardio thoracic surgeons, we will continue to follow input and recommendation. Limited 2D echo performed yesterday shows left ventricular cavity size is normal, Impella device measuring 5.6 cm into LV. Left ventricular ejection fraction 55-60%, no pericardial effusion. 08/30 patient is seen and examined at bedside, discussed with the RN, no acute events overnight, status post interval removal of Impella and placement of p ericardial patch in the operating room by Cardiothoracic surgeon, 08/29/2025, tolerated the procedure well. Patient will remain admitted to the ICU, we will continue to follow Cardiothoracic input and recommendation. Follow a.m. labs. Continue Lasix, follow intake and output, daily chest x-ray, continue heparin drip, follow critical care input and recommendation. Patient completed 10 days of Rocephin and a dose of vancomycin. Completed three days of Ancef. 08/31 patient is seen and examined at bedside, discussed with the RN, no acute events overnight, patient remains admitted to the ICU, now she is intubated, mechanical ventilation, however awake, following commands, on low-dose Precedex, also on Lasix drip, Levophed drip, patient is status post interval removal of Impella support device per Cardiothoracic surgeon. Tolerated well. Hemoglobin today 9.1, hematocrit 27.4, ABG pH 7.48, pCO2 40, PO2 95.8, bicarb 29.1, chest x-ray pending. Continue to follow Cardiothoracic input recommendation, for continue care input and recommendation terms of extubation, wean off Levophed. 09/01 patient is seen and examined at bedside, remains admitted to the ICU, status post interval extubation. She is alert and oriented, following commands, remains on Levophed and Lasix drip. Chest tube in place. BP 113/46, hemoglobin 9.9, hematocrit 30.3, WBC 12.0, platelet count of 218. Sodium 138, potassium 3.9, BUN of 13, creatinine 0.9. Discussed with the RN, pending EP evaluation for possible pacemaker. We will follow, continue to follow Cardiothoracic input and recommendation. Critical care input noted and appreciated. Follow a.m. labs. 09/02 patient is seen and examined at bedside, case discussed with the RN, remains admitted to the ICU, at the time of my visit she is alert oriented x3, remains on Lasix Levophed getting IV antibiotics. Oriented patient is status post coronary artery bypass grafting, status post right femoral artery repair. Cardiothoracic input noted and appreciated, input has been noted, Impella has b een successfully unit, patient will remain on low-dose Levophed, Lasix, IV antibiotics, continue chest tube in place. Patient supplemental oxygen via nasal cannula at 2 L to keep oxygen saturation greater than 92%. Continue to follow critical care input recommendation, follow a.m. labs. 09/03 patient is seen and examined at bedside, case discussed with the RN, no acute events overnight, the patient remains admitted to the ICU, awake, following commands, currently off Levophed, maintaining good blood pressure support. Currently on IV antibiotics. Hemoglobin 9.3, hematocrit 28.9, platelet count of 301. Patient is status post interval removal of chest tubes. Remains on aspirin, atorvastatin, furosemide. Continue midodrine. Doppler of the lower extremities negative for DVT. Patient complained on my pain to the right leg, we will request arterial Doppler of the right leg, status post Impella removal. Continue to follow EP input recommendation in terms of pacemaker. REVIEW OF SYSTEMS CONSTITUTIONAL: generalized fatigue, malaise NEUROLOGICAL: Denies headache, amaurosis fugax, motor weakness, sensory deficit, vertigo/spinning sensation, gait abnormalities, or tremors. ENT: No hearing loss, otalgia, otorrhea, rhinitis, rhinorrhea, hoarseness, or sore throat. CARDIOVASCULAR: Mild incisional chest pain, no shortness breath PULMONARY: Denies any shortness of breath, cough, phlegm/sputum, hemoptysis, pleuritic chest pain. SLEEP: Denies morning headaches, daytime somnolence or napping. Denies difficulty falling asleep, staying asleep, waking from sleep. Denies knowledge of snoring. GASTROINTESTINAL: No nausea, Denies any type of dysphagia to either liquids or solids. Denies vomiting, pyrosis, early satiety, abdominal pain, diarrhea, constipation, or changes in stool consistency or caliber. Denies coffee-ground emesis, hematemesis, hematochezia, or melanotic stools. GENITOURINARY: Denies frequency, urgency, nocturia, hematuria or incontinence (Storage/Irritative symptoms.) Low urinary stream, straining to void, urinary intermittency or hesitancy, splitting of the voiding stream, terminal dribbling. ENDOCRINOLOGIC: Denies polyuria, polydipsia, polyphagia or heat/cold intolerances. HEMATOLOGIC: Denies thrombophilia/previous clots, or coagulopathy/bleeding disorders. ONCOLOGIC: Denies personal history of malignancy. DERMATOLOGIC: Denies rashes or pruritus. PSYCHIATRIC: Denies any suicidal or homicidal ideation. Denies hallucinations. PHYSICAL EXAM GENERAL APPEARANCE: Extubated, awake, following commands. NEUROLOGICAL: Cranial nerves II-XII grossly intact. Motor is 5/5 in bilateral upper and lower extremities proximal to distal. No sensory deficits. HEENT: Face is symmetric. Pupils are equal and reactive. Extraocular movements are intact. NECK: Supple. No JVD. No thyromegaly. No submental, submandibular, pre- /postauricular, occipital or supraclavicular lymphadenopathy. CHEST: Normal chest expansion. No Telemetry. LUNGS: minimal crackles noted of the bilateral lung bases CARDIOVASCULAR: Regular. S1 and S2 normal. No appreciable rubs, murmurs or gallops. ABDOMEN: Soft, nontender, and nondistended. There is no rebound, voluntary guarding, or rigidity. : Deferred. No Coombs. EXTREMITIES: trace edema noted of the bilateral lower extremities SKIN: No skin breakdown. Vital Signs (last 8hr) Date Time Temp Pulse Resp B/P (MAP) Pulse Ox O2 Delivery O2 Flow Rate FiO2 09/03/25 12:13 98.6 09/03/25 12:00 97 Nasal Cannula* 2 28 09/03/25 11:45 81 16 105/55 (72) 99 09/03/25 11:30 75 16 97/53 (68) 99 09/03/25 11:15 75 16 98/55 (69) 99 09/03/25 11:10 75 20 N/Cannula Low lpm 2.0 28 09/03/25 11:00 76 20 92/56 (68) 99 09/03/25 10:45 79 17 100/56 (71) 99 09/03/25 10:30 76 14 111/64 (80) 99 09/03/25 10:15 77 19 110/57 (74) 99 09/03/25 10:00 74 18 109/61 (77) 99 09/03/25 09:45 75 16 103/59 (74) 99 09/03/25 09:30 74 21 118/58 (78) 99 09/03/25 09:29 98.8 09/03/25 09:15 72 15 105/49 (67) 99 09/03/25 09:00 76 15 122/65 (84) 09/03/25 08:45 80 16 119/64 (82) 09/03/25 08:30 71 20 119/66 (83) 99 09/03/25 08:15 64 12 121/37 (65) 100 09/03/25 08:00 69 14 119/57 (77) 100 09/03/25 08:00 97 Nasal Cannula* 2 28 09/03/25 07:45 68 12 121/65 (83) 100 09/03/25 07:30 69 18 129/70 (89) 100 09/03/25 07:15 68 17 121/68 (85) 99 09/03/25 06:43 74 20 N/Cannula Low lpm 2.0 28 09/03/25 05:00 70 11 100 09/03/25 04:54 70 11 108/53 (71) 100 LABS: Laboratory: Test 09/03/25 11:11 09/03/25 07:20 Range/Units Whole Blood Glucose 168 H 70-110 MG/DL White Blood Count 8.6 4.8-10.8 K/uL Red Blood Count 3.00 L 4.00-5.50 MIL/uL Hemoglobin 9.3 L 12.0-16.0 g/dL Hematocrit 28.9 L 36-48 % Mean Corpuscular Volume 96.3 79-99 fL Mean Corpuscular Hemoglobin 31.0 27.0-33.0 pg Mean Corpuscular Hemoglobin Concent 32.2 32.0-36.0 g/dL Red Cell Distribution Width 17.5 H 11.0-15.5 % Platelet Count 301 130-400 K/uL Mean Platelet Volume 9.9 7.5-10.5 fL Immature Granulocyte % (Auto) 0.5 0-1 % Neutrophils (%) (Auto) 65.4 40.0-77.0 % Lymphocytes (%) (Auto) 19.0 L 21.0-51.0 % Monocytes (%) (Auto) 8.2 3.0-13.0 % Eosinophils (%) (Auto) 6.5 0.0-8.0 % Basophils (%) (Auto) 0.4 0.0-5.0 % Neutrophils # (Auto) 5.6 1.8-7.7 K/uL Lymphocytes # (Auto) 1.6 1.0-4.8 K/uL Monocytes # (Auto) 0.7 0.1-1.0 K/uL Eosinophils # (Auto) 0.56 0.00-0.70 K/uL Basophils # (Auto) 0.03 0.00-0.20 K/uL Absolute Immature Granulocyte (auto 0.04 0-1 K/uL Nucleated Red Blood Cells 0.0 0.0-0.19 % Sodium Level 138 136-145 mmol/L Potassium Level 3.3 L 3.5-5.1 mmol/L Chloride Level 100 L 101-111 mmol/L Carbon Dioxide Level 35 H 21-32 mmol/L Blood Urea Nitrogen 16 7-18 mg/dL Creatinine 0.7 0.5-1.0 mg/dL Glomerular Filtration Rate Calc 100 >90 mL/min Random Glucose 171 H 70-105 mg/dL Total Calcium 7.8 L 8.5-10.1 mg/dL Magnesium Level 2.00 1.80-2.40 mg/dL Total Bilirubin 0.5 0.2-1.0 mg/dL Aspartate Amino Transf (AST/SGOT) 45 H 10-37 U/L Alanine Aminotransferase (ALT/SGPT) 29 12-78 U/L Alkaline Phosphatase 189 H 50-136 U/L Total Protein 7.0 6.0-8.3 g/dL Albumin 1.8 L 3.5-5.0 g/dL Current Medications Medications (Trade) Dose Ordered Sig/Elmer Route PRN Reason Start Time Stop Time Status Last Admin Dose Admin Acetaminophen (TYLenol 325MG TAB) 650 mg Q4H PRN PO Temp >38.3C(AFTER EXTUBATION) 08/20/25 17:00 09/19/25 16:59 Acetaminophen (TYLenol 325MG TAB) 650 mg Q6H PRN PO MILD PAIN (1-3) 08/13/25 16:30 09/12/25 16:29 08/23/25 11:01 650 MG Acetaminophen (TYLenol 500MG TAB) 500 mg Q6H PRN PO TEMP < 101.1 AND/OR HEADACHE 08/14/25 14:30 09/13/25 14:29 08/26/25 10:41 500 MG Acetaminophen (TYLenol 650MG SUPPOSITORY) 650 mg Q4H PRN RC Temp >38.3C WHILE INTUBATED 08/20/25 17:00 09/19/25 16:59 Acetaminophen (acetaMINOPHEN 1,000MG/100ML) 1,000 mg Q6H6 IVPB 08/21/25 12:00 09/20/25 11:59 09/03/25 11:18 1,000 MG Albumin Human 50 ml @ 0 mls/hr BID IV 08/18/25 09:00 08/23/25 08:59 DC 08/22/25 20:56 100 MLS/HR Albumin Human 250 ml @ 0 mls/hr AD PRN IV IF HEMODYNAMICALLY UNSTABLE 08/20/25 17:00 08/20/25 22:46 DC 08/20/25 22:46 0 MLS/HR Aminocaproic Acid 77969 mg/Sodium Chloride 310 ml @ 25 mls/hr AD IV 08/20/25 17:00 08/21/25 05:23 DC Aminocaproic Acid 03231 mg/Sodium Chloride 480 ml @ 0 mls/hr AD PRN IV BLEEDING CONTROL 08/20/25 08:00 09/02/25 07:55 DC Aminocaproic Acid 24202 mg/Sodium Chloride 480 ml @ 0 mls/hr AD PRN IV BLEEDING CONTROL 08/20/25 09:00 08/20/25 09:03 DC Amiodarone HCl (pacERONE 200MG) 200 mg BID PO 08/22/25 09:00 08/29/25 21:00 DC 08/28/25 20:25 200 MG Amiodarone HCl 360 mg/Dextrose 207.2 ml @ 33.3 mls/hr AD IV 08/20/25 21:00 08/20/25 21:05 DC Amiodarone HCl 540 mg/Dextrose 310.8 ml @ 16.7 mls/hr [id number] IV 08/21/25 03:00 08/27/25 06:20 DC 08/21/25 20:12 16.7 MLS/HR Amiodarone HCL/ Dextrose 207.2 ml @ 33.3 mls/hr AD IV 08/20/25 21:30 08/21/25 10:49 DC 08/20/25 21:24 33.3 MLS/HR Aspirin (Aspirin 81mg Chew Tab) 81 mg DAILY PO 08/14/25 09:00 09/13/25 08:59 09/03/25 08:21 81 MG Atorvastatin Calcium (LIPItor 40MG) 40 mg HS PO 08/13/25 21:00 09/12/25 20:59 09/02/25 21:03 40 MG Benzocaine (Cepacol Sore Throat Lozenge) 1 each Q4H PRN MM SORE THROAT 08/26/25 11:30 09/25/25 11:29 Bisacodyl (DulcoLAX) 10 mg DAILY RC 08/17/25 09:00 08/20/25 08:59 DC 08/18/25 07:58 10 MG Calcium Carbonate (Tums 500 Mg Chew Tab) 500 tab QID PRN PO HEARTBURN 08/19/25 12:00 08/20/25 16:32 DC 08/20/25 05:10 1 TAB Calcium Gluconate 1 gm/Sodium Chloride 60 ml @ 200 mls/hr AD PRN IV HYPOCALCEMIA 08/20/25 17:00 09/19/25 16:59 08/30/25 03:43 200 MLS/HR Cefazolin Sodium (Ancef) 2 gm ONCALL IVP 08/19/25 19:30 08/21/25 08:36 DC 08/20/25 16:30 2 GM Cefazolin Sodium (Ancef) 2 gm Q8H IVPB 08/20/25 22:00 08/21/25 14:01 DC 08/21/25 13:45 2 GM Ceftriaxone Sodium (Rocephin 2gm Inj) 2 gm Q24H IVPB 08/14/25 11:30 08/24/25 11:29 DC 08/23/25 12:16 2 GM Chlordiazepoxide HCl (LIBrium 25 MG CAP) 25 mg Q2H PRN PO ALCOHOL WITHDRAWAL PROTOCOL 08/14/25 14:30 08/20/25 16:32 DC 08/16/25 23:38 25 MG Chlordiazepoxide HCl (LIBrium 25 MG CAP) 50 mg Q1H PRN PO ALCOHOL WITHDRAWAL PROTOCOL 08/14/25 14:30 08/20/25 16:32 DC Dexmedetomidine/ Sodium Chloride (PRECEdex 400MCG/ 100ML-NS) 400 mcg PROTOCOL IV 08/20/25 20:30 09/19/25 20:29 08/31/25 06:18 400 MCG Dextrose (D50w) 50 ml AD PRN IV HYPOGLYCEMIA PROTOCOL 08/20/25 17:00 09/19/25 16:59 Dextrose (D50w) 50 ml AD PRN IV HYPOGLYCEMIA PROTOCOL 08/13/25 20:00 08/20/25 22:03 DC Diphenhydramine HCl (BENAdryl INJ) 25 mg ONCE PRN IV ITCHING 08/15/25 23:00 08/17/25 22:59 DC Docusate Sodium (COLace 100MG CAP) 100 mg BID PRN PO CONSTIPATION 08/14/25 11:00 09/13/25 10:59 Dopamine HCl/ Dextrose 250 ml @ 0 mls/hr PROTOCOL IV 08/13/25 16:00 09/12/25 15:59 08/16/25 16:41 3 MLS/HR Enoxaparin Sodium (Lovenox) 40 mg DAILY SQ 09/03/25 09:00 10/03/25 08:59 09/03/25 08:22 40 MG Epinephrine HCl 10 mg/Sodium Chloride 250 ml @ 14.091 mls/ hr AD PRN IV POST-OP CARDIOVASCULAR ORDERS 08/20/25 17:00 08/21/25 10:49 DC Epinephrine HCl 10 mg/Sodium Chloride 250 ml @ 0 mls/hr AD PRN IV TITRATE 08/20/25 08:00 09/19/25 07:59 08/26/25 16:56 0 MLS/HR Epinephrine HCl 10 mg/Sodium Chloride 250 ml @ 0 mls/hr AD PRN IV TITRATE 08/20/25 09:00 08/20/25 09:03 DC Famotidine (Pepcid 20mg Vial) 20 mg BID IV 08/20/25 21:00 08/22/25 08:20 DC 08/21/25 20:17 20 MG Famotidine (Pepcid 20mg Tab) 20 mg BID PO 08/22/25 09:00 09/21/25 08:59 09/03/25 08:21 20 MG Folic Acid (FOLic ACID 1 MG TABLET) 1 mg DAILY PO 08/15/25 09:00 08/17/25 09:01 DC 08/17/25 07:46 1 MG Furosemide (LASix 20MG VIAL) 20 mg Q12H IV 08/21/25 11:30 08/22/25 14:17 DC 08/22/25 11:53 20 MG Furosemide (LASix 20MG VIAL) 20 mg Q12H IV 08/22/25 21:00 08/23/25 11:37 DC 08/23/25 09:50 20 MG Furosemide (LASix 20MG VIAL) 40 mg Q12H IV 08/22/25 21:00 08/22/25 14:32 DC Furosemide (LASix 40MG VIAL) 40 mg Q12H IV 08/23/25 11:30 08/30/25 11:08 DC 08/29/25 22:38 40 MG Furosemide (LASix 40MG VIAL) 40 mg Q12H IV 09/02/25 11:00 10/02/25 10:59 09/03/25 11:19 40 MG Furosemide 100 mg/ Sodium Chloride 100 ml @ 0 mls/hr PROTOCOL IV 08/30/25 11:30 09/02/25 10:56 DC 09/02/25 09:12 10 MLS/HR Gabapentin (NEURontin 300 MG CAP) 300 mg TID PO 08/23/25 14:00 09/22/25 13:59 09/03/25 08:21 300 MG Glucagon (Glucagon 1mg Kit) 1 mg AD PRN IM HYPOGLYCEMIA PROTOCOL 08/20/25 17:00 09/19/25 16:59 Glucagon (Glucagon 1mg Kit) 1 mg AD PRN IM HYPOGLYCEMIA PROTOCOL 08/13/25 20:00 08/21/25 10:49 DC Heparin Sodium (Porcine) (HEParin 5,000 UNIT VIAL) *calculation based on ACTUAL B... AD PRN IV HEPARIN PROTOCOL 08/13/25 16:30 08/20/25 16:32 DC 08/17/25 04:46 3,175 UNIT Heparin Sodium/ Dextrose 250 ml @ 0 mls/hr PROTOCOL IV 08/21/25 11:30 09/03/25 06:32 DC 08/28/25 15:28 10.54 MLS/HR Heparin Sodium/ Dextrose 250 ml @ 0 mls/hr Q6H IV 08/13/25 16:30 08/20/25 16:32 DC 08/19/25 22:03 11.78 MLS/HR Insulin Glargine (LANtus 100 UNITS/ML 10 ML VIAL) 5 units BID@0730,2100 SQ 08/16/25 21:00 08/17/25 09:31 DC 08/16/25 21:21 5 UNITS Insulin Glargine (LANtus 100 UNITS/ML 10 ML VIAL) 10 units HS SQ 08/13/25 21:00 08/14/25 06:16 DC 08/13/25 20:21 10 UNITS Insulin Glargine (LANtus 100 UNITS/ML 10 ML VIAL) 15 units DAILY SQ 08/23/25 09:00 08/28/25 07:20 DC 08/27/25 08:35 15 UNITS Insulin Glargine (LANtus 100 UNITS/ML 10 ML VIAL) 20 units DAILY SQ 08/14/25 09:00 08/15/25 07:24 DC 08/14/25 08:01 20 UNITS Insulin Glargine (LANtus 100 UNITS/ML 10 ML VIAL) 20 units DAILY SQ 08/28/25 09:00 09/27/25 08:59 09/03/25 08:23 20 UNITS Insulin Glargine (LANtus 100 UNITS/ML 10 ML VIAL) 30 units DAILY SQ 08/15/25 09:00 08/16/25 07:19 DC 08/15/25 08:28 30 UNITS Insulin Glargine (LANtus 100 UNITS/ML 10 ML VIAL) 35 units DAILY SQ 08/16/25 09:00 08/19/25 07:35 DC 08/18/25 07:59 35 UNITS Insulin Glargine (LANtus 100 UNITS/ML 10 ML VIAL) 42 units DAILY SQ 08/19/25 09:00 08/20/25 06:22 DC 08/19/25 09:40 42 UNITS Insulin Glargine (LANtus 100 UNITS/ML 10 ML VIAL) 45 units DAILY SQ 08/20/25 09:00 08/20/25 16:32 DC Insulin Human Lispro (HumaLOG LISpro 100 UNIT/ML 3ML) INSULIN SLIDING SCAL... ACHS 08/16/25 21:00 08/17/25 09:31 DC Insulin Human Regular (humuLIN R 100 UNIT/ML 3ML) 3 unit TIDAC SQ 08/27/25 07:30 08/27/25 20:56 DC 08/27/25 16:47 3 UNIT Insulin Human Regular (humuLIN R 100 UNIT/ML 3ML) 5 unit TIDAC SQ 08/14/25 17:00 08/15/25 07:24 DC 08/15/25 07:03 5 UNIT Insulin Human Regular (humuLIN R 100 UNIT/ML 3ML) 6 unit TIDAC SQ 08/28/25 07:30 09/27/25 07:29 09/03/25 11:19 6 UNIT Insulin Human Regular (humuLIN R 100 UNIT/ML 3ML) 8 unit TIDAC SQ 08/15/25 07:30 08/15/25 22:46 DC 08/15/25 16:02 8 UNIT Insulin Human Regular (humuLIN R 100 UNIT/ML 3ML) 10 unit TIDAC SQ 08/16/25 07:30 08/17/25 21:12 DC 08/17/25 16:09 10 UNIT Insulin Human Regular (humuLIN R 100 UNIT/ML 3ML) 12 unit TIDAC SQ 08/18/25 07:30 08/18/25 20:19 DC 08/18/25 16:39 12 UNIT Insulin Human Regular (humuLIN R 100 UNIT/ML 3ML) 16 unit TIDAC SQ 08/19/25 07:30 08/20/25 06:22 DC 08/19/25 16:47 16 UNIT Insulin Human Regular (humuLIN R 100 UNIT/ML 3ML) 17 unit TIDAC SQ 08/20/25 07:30 08/20/25 16:32 DC Insulin Human Regular (humuLIN R 100 UNIT/ML 3ML) INSULIN SLIDING SCAL... ACHS SQ 08/17/25 16:30 08/20/25 16:32 DC 08/19/25 21:31 8 UNIT Insulin Human Regular (humuLIN R 100 UNIT/ML 3ML) INSULIN SLIDING SCAL... ACHS SQ 08/22/25 11:30 08/22/25 21:32 DC 08/22/25 20:58 3 UNIT Insulin Human Regular (humuLIN R 100 UNIT/ML 3ML) INSULIN SLIDING SCAL... ACHS SQ 08/23/25 07:30 09/22/25 07:29 09/02/25 16:47 2 UNIT Insulin Human Regular (humuLIN R 100 UNIT/ML 3ML) INSULIN SLIDING SCAL... ACHS SQ 08/13/25 16:30 08/16/25 20:46 DC 08/16/25 20:01 4 UNIT Insulin Human Regular 100 unit/ Sodium Chloride 100 ml @ 0 mls/hr AD IV 08/20/25 17:00 08/22/25 16:59 DC 08/21/25 15:00 5 MLS/HR Iron Sucrose (VenoFER) 200 mg DAILY IV 08/21/25 13:00 08/23/25 09:43 DC 08/22/25 11:53 200 MG Iron Sucrose (VenoFER) 200 mg DAILY IV 08/23/25 09:00 08/26/25 08:57 DC 08/25/25 09:25 200 MG Lidocaine (Lidocaine Patch 4%) 1 each DAILY TP 08/19/25 09:00 09/18/25 08:59 09/03/25 08:24 1 EACH Lidocaine HCl/ Dextrose 250 ml @ 0 mls/hr PROTOCOL IV 08/21/25 00:00 09/20/25 00:00 Lidocaine/ Prilocaine (Emla) 1 appl ONCE TP 08/31/25 13:30 09/01/25 07:33 DC 08/31/25 13:59 1 APPL Magnesium Sulfate 50 ml @ 12.5 mls/hr AD PRN IV MAG LEVEL LESS THAN 2.0 08/20/25 17:00 09/02/25 09:48 DC 09/02/25 09:19 12.5 MLS/HR Magnesium Sulfate 50 ml @ 0 mls/hr PROTOCOL IV 09/02/25 10:00 10/02/25 09:59 Magnesium Sulfate 50 ml @ 0 mls/hr PROTOCOL IV 08/13/25 16:30 08/21/25 10:49 DC 08/21/25 05:58 25 MLS/HR Midodrine (PROAMatine 5 MG TABLET) 5 mg Q6H6 PO 08/26/25 16:00 09/01/25 10:53 DC 09/01/25 06:57 5 MG Midodrine (PROAMatine 5 MG TABLET) 10 mg Q6H6 PO 09/01/25 12:00 09/02/25 16:25 DC 09/02/25 12:32 10 MG Midodrine (PROAMatine 5 MG TABLET) 15 mg Q6H6 PO 09/02/25 18:00 10/02/25 17:59 09/03/25 11:18 15 MG Morphine Sulfate (morPHINE 2MG SYG) 0.5 mg Q2H PRN IV MODERATE PAIN (4-6) 08/20/25 17:00 08/20/25 18:07 DC Morphine Sulfate (morPHINE 2MG SYG) 2 mg Q6H PRN IVP SEVERE PAIN (7-10) 08/19/25 18:00 08/20/25 16:32 DC 08/19/25 17:50 2 MG Morphine Sulfate (morPHINE 4MG SYG) 0.5 mg Q2H PRN IV MODERATE PAIN (4-6) 08/20/25 18:30 08/21/25 16:59 DC Morphine Sulfate (morPHINE 4MG SYG) 1 mg Q2H PRN IV SEVERE PAIN (7-10) 08/20/25 17:00 08/21/25 16:59 DC Morphine Sulfate (morPHINE 4MG SYG) 2 mg Q6H PRN IVP SEVERE PAIN (7-10) 08/14/25 09:30 08/19/25 12:29 DC 08/19/25 12:22 2 MG Multivitamins Therapeutic (Multivitamin Tablet) 1 tab DAILY PO 08/15/25 09:00 09/14/25 08:59 09/03/25 08:20 1 TAB Nitroglycerin/ Dextrose 0 ml @ 0 mls/hr AD IV 08/20/25 17:00 08/23/25 16:59 DC Nitroglycerin/ Dextrose 250 ml @ 0 mls/hr PROTOCOL IV 08/20/25 03:30 08/20/25 16:32 DC 08/20/25 03:12 1.5 MLS/HR Norepinephrine 250 ml @ 0 mls/hr PROTOCOL IV 08/13/25 15:30 08/20/25 08:31 DC Norepinephrine Bitartrate 250 ml @ 0 mls/hr AD PRN IV TITRATE 08/20/25 08:00 09/19/25 07:59 09/01/25 23:29 6.18 MLS/HR Norepinephrine Bitartrate 250 ml @ 0 mls/hr AD PRN IV TITRATE 08/20/25 09:00 08/20/25 09:03 DC Norepinephrine Bitartrate 8 mg/ Dextrose 250 ml @ 0 mls/hr AD PRN IV POST-OP CARDIOVASCULAR ORDERS 08/20/25 17:00 08/21/25 10:49 DC Ondansetron HCl (zoFRAN 4MG INJ) 4 mg Q4H PRN IV NAUSEA 08/14/25 14:30 08/20/25 16:32 DC 08/14/25 14:17 4 MG Ondansetron HCl (zoFRAN 4MG INJ) 4 mg Q6H PRN IV NAUSEA/VOMITING 08/20/25 17:00 09/19/25 16:59 08/29/25 12:47 4 MG Ondansetron HCl (zoFRAN 4MG INJ) 4 mg Q6H PRN IVP NAUSEA/VOMITING 08/13/25 16:30 08/14/25 14:08 DC Pantoprazole Sodium (PROTonix 40MG INJ) 40 mg Q12H IVP 08/17/25 16:30 08/20/25 16:32 DC 08/20/25 03:53 40 MG Pantoprazole Sodium (PROTonix 40MG INJ) 40 mg Q24H IVP 08/13/25 16:30 08/17/25 11:10 DC 08/16/25 16:07 40 MG Pharmacy Profile Note (Pharmacy Communication) 1 each PROTOCOL PRN MISC ETOH Withdrawal Score changes 08/14/25 14:30 08/14/25 14:08 DC Phenylephrine HCl 100 mg/Sodium Chloride 250 ml @ 0 mls/hr PROTOCOL IV 08/26/25 20:30 09/25/25 20:29 Piperacillin Sod/ Tazobactam Sod (Zosyn 3.375gm+NS 50ml) 3.375 gm Q8H IV 08/30/25 10:00 09/09/25 09:59 09/03/25 09:32 3.375 GM Polyethylene Glycol (MIRalax 3350 17 GM POWD.PACK) 17 gm DAILY PO 08/15/25 09:00 09/14/25 08:59 09/03/25 08:24 17 GM Potassium Phosphate 250 ml @ 42 mls/hr AD PRN IV LOW PHOS LEVEL 08/20/25 17:00 09/19/25 16:59 Potassium Chloride 100 ml @ 100 mls/hr AD PRN IV HYPOKALEMIA 08/20/25 17:00 09/19/25 16:59 09/03/25 09:38 100 MLS/HR Potassium Chloride 100 ml @ 100 mls/hr AD PRN IV POTASSIUM PROTOCOL 08/13/25 16:30 08/20/25 16:32 DC 08/16/25 16:07 100 MLS/HR Potassium Chloride (K-Dur/Klor-Con 20meq) 20 meq AD PRN PO POTASSIUM PROTOCOL 08/13/25 16:30 08/20/25 16:32 DC 08/15/25 08:23 20 MEQ Potassium Chloride (KCl 10% Elixir 20meq/15ml) 20 meq AD PRN PO POTASSIUM PROTOCOL 08/13/25 16:30 08/20/25 16:32 DC Promethazine HCl (Phenergan) 25 mg Q6H PRN PO NAUSEA 08/14/25 14:30 08/20/25 16:32 DC Propofol 100 ml @ 0 mls/hr AD PRN IV SEDATION 08/20/25 17:00 08/24/25 17:00 DC Sodium Bicarbonate 25 meq/Dextrose 1,000 ml @ 0 mls/hr Q0M IV 08/14/25 00:30 09/13/25 00:29 08/28/25 16:29 14 MLS/HR Sodium Bicarbonate 25 meq/Dextrose 1,000 ml @ 0 mls/hr Q0M IVP 08/14/25 00:30 08/14/25 00:15 DC Sodium Bicarbonate (Sodium Bicarb 50meq 50ml Vial) 50 meq AD PRN IV OTHER[SEE DOSING INSTRUCTIONS] 08/20/25 17:00 08/23/25 16:59 DC 08/21/25 01:19 50 MEQ Sodium Chloride 500 ml @ 500 mls/hr Q1H IV 08/20/25 00:33 08/20/25 03:16 DC 08/20/25 00:53 500 MLS/HR Sodium Chloride 500 ml @ 0 mls/hr AD IV 08/20/25 17:00 09/19/25 16:59 Sodium Chloride 1,000 ml @ 10 mls/hr ONCE IV 08/20/25 17:00 08/21/25 16:59 DC 08/20/25 22:31 10 MLS/HR Sodium Chloride (NS Flush 10ml) 10 ml Q8H PRN IVP IV LINE FLUSH 08/20/25 17:00 09/19/25 16:59 Thiamine HCl (Vitamin B-1) 300 mg DAILY IV 08/15/25 09:00 08/17/25 09:01 DC 08/17/25 07:46 300 MG Ticagrelor (BRILinta) 90 mg BID PO 08/14/25 09:00 08/14/25 21:19 DC 08/14/25 20:09 90 MG Tramadol HCl (UltRAM) 25 mg Q6H PRN PO MODERATE PAIN (4-6) 08/20/25 17:00 08/25/25 16:59 DC Tramadol HCl (UltRAM) 25 mg Q6H PRN PO MODERATE PAIN (4-6) 08/26/25 11:00 08/31/25 10:59 DC 08/27/25 03:12 25 MG Tramadol HCl (UltRAM) 50 mg Q6H PRN PO SEVERE PAIN (7-10) 08/20/25 17:00 08/25/25 16:59 DC 08/25/25 09:24 50 MG Tramadol HCl (UltRAM) 50 mg Q6H PRN PO SEVERE PAIN (7-10) 08/26/25 11:00 08/31/25 10:59 DC 08/29/25 05:39 50 MG Vancomycin HCl 250 ml @ 125 mls/hr Q12H IV 08/18/25 09:00 08/19/25 20:54 DC 08/19/25 09:39 125 MLS/HR Vancomycin HCl 250 ml @ 125 mls/hr Q12H IV 08/24/25 23:00 08/26/25 21:47 DC 08/26/25 11:47 125 MLS/HR Vancomycin HCl 250 ml @ 125 mls/hr Q8H IV 08/19/25 21:30 08/21/25 00:23 DC 08/20/25 22:26 125 MLS/HR Vancomycin HCl 250 ml @ 125 mls/hr Q8H IV 08/21/25 06:30 08/21/25 08:35 DC 08/21/25 08:15 125 MLS/HR Vancomycin HCl 250 ml @ 125 mls/hr Q8H IV 08/21/25 08:00 08/21/25 06:28 DC Vancomycin HCl 250 ml @ 125 mls/hr Q8H IV 08/21/25 16:30 08/24/25 16:54 DC 08/24/25 09:32 125 MLS/HR Vancomycin HCl (Vancomycin Protocol) 1 each AD IV 08/17/25 22:00 08/26/25 21:47 DC Wound Care/ Dressing Products (Venelex Ointment) 1 GM BID TP 09/01/25 09:00 09/30/25 20:59 09/03/25 08:35 1 GM Wound Care/ Dressing Products (Venelex Ointment) 1 gm BID TP 08/31/25 21:00 09/01/25 07:35 DC 08/31/25 21:26 1 GM DIAGNOSTICS / RADIOLOGY: [ ] ASSESSMENT: Cardiogenic shock with lactic acidosis, POA NSTEMI/ACS, POA Complete heart block, POA History of multivessel coronary artery disease, POA History of cocaine use disorder, POA Severe nonketotic hyperglycemia, POA History of to poorly controlled type 2 diabetes mellitus, POA Lactic acidosis, POA History of anemia, POA History of gastritis, POA History of hypertension, POA History of PTSD/anxiety, POA Obesity, POA Medical noncompliance, POA PLAN: patient is seen and examined at bedside, case discussed with the RN, no acute events overnight, the patient remains admitted to the ICU, awake, following commands, currently off Levophed, maintaining good blood pressure support. Currently on IV antibiotics. Hemoglobin 9.3, hematocrit 28.9, platelet count of 301. Patient is status post interval removal of chest tubes. Remains on aspirin, atorvastatin, furosemide. Continue midodrine. Doppler of the lower extremities negative for DVT. Patient complained on my pain to the right leg, we will request arterial Doppler of the right leg, status post Impella removal. Continue to follow EP input recommendation in terms of pacemaker. NEURO: MINIMIZE CENTRAL ACTING MEDICATIONS POSSIBLE. FALL PRECAUTIONS. WELL LIGHTED ROOM THROUGH THE DAY AND MINIMIZE INTERRUPTIONS THROUGH THE NIGHT TO PREVENT ACUTE DELIRIUM. PULMONARY: SUPPLEMENTAL 02 NEEDED BIPAP NECESSARY, FOR RESPIRATORY DISTRESS TITRATE FIO2 TO KEEP SPO2 > OR = 90% DUONEBS AND CPT NEEDED IS HOURLY WHILE AWAKE FOR PULMONARY HYGIENE PRN OUT OF BED TO CHAIR TOLERATED MAINTAIN ASPIRATION PRECAUTIONS AT ALL TIMES CARDIOVASCULAR: FOLLOW HEMODYNAMICS. VITAL SIGNS PER FACILITY PROTOCOL GI & NUTRITION: CONTINUE NUTRITIONAL SUPPORT ASPIRATIONS PRECAUTIONS PROKINETIC AGENTS AND LAXATIVES NEEDED KIDNEYS & ELECTROLYTES: STRICT MONITORING OF INTAKE AND OUTPUT DAILY WEIGHTS AVOID NEPHROTOXIC AGENTS MONITOR ELECTROLYTES AND REPLACE NEEDED GOAL URINE OUTPUT OF 30ML/HR OR 0.5ML/KG/HR MEDICATIONS TO BE DOSED ACCORDING TO RENAL FUNCTION. AVOID CONTRAST IF POSSIBLE ENDOCRINE: MAINTAIN BLOOD GLUCOSE BETWEEN 100-180 AT ALL TIMES. INSULIN SLIDING SCALE FOR BLOOD GLUCOSE MANAGEMENT HYPOGLYCEMIA AND HYPERGLYCEMIA PROTOCOL IN PLACE INFECTIOUS DISEASE: TREND TEMPERATURE, WBC AND PROCALCITONIN LEVEL FOLLOW CULTURES, DEESCALATE ANTIBIOTICS SOON POSSIBLE. PANCULTURE IF NEW ONSET FEVER HEMATOLOGY & COAGULATION: MONITOR H&H. KEEP HGB > 7 TRANSFUSE 1 UNIT OF PRBC FOR HGB < 7 TRANSFUSE 1 PACK OF PLATELETS OF PLATELETS < 20, 000 WATCH FOR ANY SIGNS AND SYMPTOMS OF BLEEDING SKIN: PRESSURE ULCER PREVENTION PER FACILITY PROTOCOL SPECIALTY MATTRESS NEEDED ORTHO/REHAB CONTINUE PT/OT PRN: MEDICATIONS TYLENOL 650 MG PO EVERY 4 HRS FOR FEVER ZOFRAN 4 MG IV EVERY 6 HRS FOR N/V HYDRALAZINE 5 MG IV EVERY 4 HRS SYSTOLIC PRESSURE > 160 BOWEL REGIMENT: LACTULOSE 20 GM PO BID PRN CONSTIPATION SUPPORTIVE MEASURES: CONTINUE GI AND DVT PROPHYLAXIS DISPOSITION: PENDING IMPROVEMENT IN CLINICAL CONDITION ALL QUESTIONS ANSWERED TIME SPENT: > 35 MIN GEE MARTIN MD Sep 03, 2025 12:51
--- NOTE | 2025-09-03 16:35 | CONS ---
CONSULTATION NOTE Date of Service: Sep 03, 2025 Reason for Consultation: [open wound to sacrum ] Requesting Physician: [ ] HISTORY OF PRESENT ILLNESS: The patient is evaluated at bedside in room 209 for initial wound care evaluation for open wound to sacrum. The patient is a 60-year-old female with a history of coronary artery disease, hypertension, type 2 diabetes mellitus, history of CVA in 2008 and history of polysubstance abuse with tobacco, cocaine and benzodiazepines. She was admitted 08/13/2025 secondary to a non-STEMI with cardiogenic shock and complete heart block. Initial EKG 08/13/2025 showed complete heart block with a junctional escape rhythm at 41 bpm. The junctional rhythm had a left bundle branch morphology. She underwent left heart catheter ization 08/13/2025 which showed multivessel coronary artery disease with attempted PCI to the distal RCA with 100% occlusion (unable to cross) with placement of Impella and transvenous pacemaker via right common femoral vein. The complete heart block resolved in 08/14/2025. With exception of intermittent Mobitz type I second-degree AV block, she maintained sinus rhythm with a first- degree AV block and right bundle branch block. On 08/21/2025 she developed polymorphic ventricular tachycardia and was started on amiodarone infusion followed by p.o. amiodarone 20 mg twice daily. She then developed recurrent complete heart block with a junctional escape rhythm in the 40s to 50s. She is status post off-pump CABG x 3 with left atrial appendage ligation on 08/20/2025. REVIEW OF SYSTEMS CONSTITUTIONAL: Denies fever, chills, or fatigue. HEAD/FACE: No signs of trauma. EENT: Denies eye pain, blurred vision, double vision, or light sensitivity. RESPIRATORY: Denies shortness of breath, cough, wheezing CARDIOVASCULAR: Denies chest pain, palpitation, syncope GASTROINTESTINAL/ABDOMINAL: Denies abdominal pain, constipation, diarrhea, nausea or vomiting GENITOURINARY: Denies dysuria or hematuria. MUSCULOSKELETAL: Denies joint pain, tenderness, or trauma. INTEGUMENTARY: Denies rash or itchiness NEUROLOGICAL/PSYCH: Denies anxiety, depression, heat or cold intolerance. Patient History: PAST MEDICAL HISTORY: As noted above. SOCIAL HISTORY: History of polysubstance abuse. SURGICAL HISTORY: As noted above. Coded Allergies: No Known Drug Allergies (Verified Allergy, Unknown, 05/04/22) lisinopril (Verified Allergy, Unknown, 05/04/22) PHYSICAL EXAM EYES: Anicteric. Pupils equal and reactive. HENT: No oral thrush seen, moist Oral mucosa NECK: Supple, no JVD or thyromegaly. LUNGS: Good air entry. No rales, no rhonchi. CARDIOVASCULAR: S1, S2 regular. No murmur heard. ABDOMEN: Soft, non tender, bowel sounds present, no organomegaly CENTRAL NERVOUS SYSTEM: Awake, alert, oriented x 3. No focal deficits. SKIN: stage II ulcer noted to sacrum noted with granulation with mild periwound erythema, minimal serous drainage noted. LYMPHATICS: No peripheral lymphadenopathy MUSCULOSKELETAL: No joint swelling, erythema or tenderness. EXTREMITIES: No cyanosis or clubbing, no pressure ulcer. GENITOURINARY: No dysuria or hematuria Vital Sign (Last 24 Hours) 09/03/25 09/03/25 09/03/25 13:15 16:00 16:17 Temp 97.5 Pulse 78 Resp 19 B/P (MAP) 111/50 (70) Pulse Ox 97 O2 Delivery Nasal Cannula* O2 Flow Rate 2 FiO2 28 Intake & Output (last 24hrs) 09/02/25 09/02/25 09/03/25 15:00 23:00 07:00 Intake Total 381.1 ml 452.8 ml 576.6 ml Output Total 965 ml 410 ml 750 ml Balance -583.9 ml 42.8 ml -173.4 ml LABS: Laboratory: Test 09/03/25 15:48 09/03/25 07:20 Range/Units Whole Blood Glucose 176 H 70-110 MG/DL White Blood Count 8.6 4.8-10.8 K/uL Red Blood Count 3.00 L 4.00-5.50 MIL/uL Hemoglobin 9.3 L 12.0-16.0 g/dL Hematocrit 28.9 L 36-48 % Mean Corpuscular Volume 96.3 79-99 fL Mean Corpuscular Hemoglobin 31.0 27.0-33.0 pg Mean Corpuscular Hemoglobin Concent 32.2 32.0-36.0 g/dL Red Cell Distribution Width 17.5 H 11.0-15.5 % Platelet Count 301 130-400 K/uL Mean Platelet Volume 9.9 7.5-10.5 fL Immature Granulocyte % (Auto) 0.5 0-1 % Neutrophils (%) (Auto) 65.4 40.0-77.0 % Lymphocytes (%) (Auto) 19.0 L 21.0-51.0 % Monocytes (%) (Auto) 8.2 3.0-13.0 % Eosinophils (%) (Auto) 6.5 0.0-8.0 % Basophils (%) (Auto) 0.4 0.0-5.0 % Neutrophils # (Auto) 5.6 1.8-7.7 K/uL Lymphocytes # (Auto) 1.6 1.0-4.8 K/uL Monocytes # (Auto) 0.7 0.1-1.0 K/uL Eosinophils # (Auto) 0.56 0.00-0.70 K/uL Basophils # (Auto) 0.03 0.00-0.20 K/uL Absolute Immature Granulocyte (auto 0.04 0-1 K/uL Nucleated Red Blood Cells 0.0 0.0-0.19 % Sodium Level 138 136-145 mmol/L Potassium Level 3.3 L 3.5-5.1 mmol/L Chloride Level 100 L 101-111 mmol/L Carbon Dioxide Level 35 H 21-32 mmol/L Blood Urea Nitrogen 16 7-18 mg/dL Creatinine 0.7 0.5-1.0 mg/dL Glomerular Filtration Rate Calc 100 >90 mL/min Random Glucose 171 H 70-105 mg/dL Total Calcium 7.8 L 8.5-10.1 mg/dL Magnesium Level 2.00 1.80-2.40 mg/dL Total Bilirubin 0.5 0.2-1.0 mg/dL Aspartate Amino Transf (AST/SGOT) 45 H 10-37 U/L Alanine Aminotransferase (ALT/SGPT) 29 12-78 U/L Alkaline Phosphatase 189 H 50-136 U/L Total Protein 7.0 6.0-8.3 g/dL Albumin 1.8 L 3.5-5.0 g/dL DIAGNOSTICS / RADIOLOGY: [ ] ASSESSMENT: Stage II ulcer to sacrum PLAN: Wound care to sacral ulcer- apply Venelex bid and prn Keep wounds clean and dry Offloading/reposition q 2 hours/ waffle mattress Comorbidities per primary care team Further Management per hospital course. Thank You for the consult and allowing us to participate in the care of this patient. ATTESTATION BY PHYSICIAN I have seen and examined the patient. I reviewed the documentation, medical decision making, and treatment plan as noted by the mid-level provider above. I agree with the findings and plan of care. RUSS JARAMILLO MD, [facility] Sep 03, 2025 16:35
--- NOTE | 2025-09-03 21:09 | PN ---
[facility] PROGRESS NOTE Date Patient Seen: Sep 03, 2025 Time of Visit: 0900 Supervising Physician: [Vinayak RDED MD ] Consulting Physician: Hospitalist Outpatient Specialists: [ ] Inpatient Consults: Dr Chris ZARATE PROBLEM LIST: Acute hypoxic Resp failure requiring intubation on 08/29/25, extubated 08/31/25 Suspected aspiration Pneumonia Acute on chronic Diastolic Heart Failure with EF of >50% CABG x3 vessels 08/20 Cardiogenic shock SCAI stage D status post cardiac catheterization with multivessel disease, Impella placement, removal on 08/29/25 Complete heart block, status post transvenous temporary pacemaker placement Bradycardia with episode of asystole requiring 20 seconds of CPR on 08/29/25 NSTEMI, POA Bacteremia + Staph Cohni urealyticum DM type 2, with hyperglycemia, HGB A1c of 10.7 Cocaine abuse Tobacco use, current smoker History of CVA INTERVAL HISTORY: No major overnight events. Patient is off pressors this morning. Right IJ Cordis to be discontinued today. Plans for PPM tomorrow per [employer] worker. White count has normalized, H&H stable platelet count 301 K. chemistries shows potassium of 3.3 covered per protocol chloride of 100 carbon dioxide 35 glucose 171 mg/dL. We continue to follow CV surgery recommendations. Patient denies any chest pain palpitations or shortness for breath. Currently saturating 99% on room air. She appears to be in good spirits today. Plan: Follow CT surgeon recs Continue 15mg po tid Per EP plans for PPM tomorrow Follow I&Os Continue IV Zosyn for a total of 7 days Daily chest x-ray ABX: Zosyn Lines/tubes: chest tube, FC TVP, Total critical care time spent 35 minutes, this excludes any procedures performed or any time spent in educational or teaching. REVIEW OF SYSTEMS: 12 point ROS reviewed with patient. Pertinent positives mentioned above. Otherwise negative. PHYSICAL EXAM: GENERAL: alert, weak, awake oriented x 3 HEENT: moist mucosa NECK: Supple, no JVD, trachea midline LUNGS: Diminished breath sounds bilaterally. No wheezes HEART: Normal S1 and S2, without murmurs ABD: Abdomen soft, nontender. Bowel sounds present EXT: No clubbing cyanosis or edema. TVP rt groin, rt knee pain and swelling NEURO: Alert and oriented to person, follows commands Vital Signs (last 8hr) Date Time Temp Pulse Resp B/P (MAP) Pulse Ox O2 Delivery O2 Flow Rate FiO2 09/03/25 20:06 99 Room Air* 0 21 09/03/25 19:04 75 16 97/57 (70) 100 09/03/25 18:57 76 20 N/Cannula Low lpm 2.0 28 09/03/25 18:30 76 23 99 09/03/25 18:15 78 17 110/58 (75) 97 09/03/25 18:00 77 20 100 09/03/25 17:45 76 20 99 09/03/25 17:30 75 20 96 09/03/25 17:15 75 18 128/58 (81) 99 09/03/25 17:00 72 20 98 09/03/25 16:45 76 18 99 09/03/25 16:30 76 15 99 09/03/25 16:17 97.5 09/03/25 16:15 75 18 128/58 (81) 99 09/03/25 16:00 97 Nasal Cannula* 2 28 09/03/25 15:15 77 19 103/59 (74) 99 09/03/25 14:15 77 19 90/56 (67) 99 09/03/25 13:15 78 19 111/50 (70) 98 LABS: Hematology Labs: Test 09/03/25 07:20 Range/Units White Blood Count 8.6 4.8-10.8 K/uL Red Blood Count 3.00 L 4.00-5.50 MIL/uL Hemoglobin 9.3 L 12.0-16.0 g/dL Hematocrit 28.9 L 36-48 % Mean Corpuscular Volume 96.3 79-99 fL Mean Corpuscular Hemoglobin 31.0 27.0-33.0 pg Mean Corpuscular Hemoglobin Concent 32.2 32.0-36.0 g/dL Red Cell Distribution Width 17.5 H 11.0-15.5 % Platelet Count 301 130-400 K/uL Mean Platelet Volume 9.9 7.5-10.5 fL Immature Granulocyte % (Auto) 0.5 0-1 % Neutrophils (%) (Auto) 65.4 40.0-77.0 % Lymphocytes (%) (Auto) 19.0 L 21.0-51.0 % Monocytes (%) (Auto) 8.2 3.0-13.0 % Eosinophils (%) (Auto) 6.5 0.0-8.0 % Basophils (%) (Auto) 0.4 0.0-5.0 % Neutrophils # (Auto) 5.6 1.8-7.7 K/uL Lymphocytes # (Auto) 1.6 1.0-4.8 K/uL Monocytes # (Auto) 0.7 0.1-1.0 K/uL Eosinophils # (Auto) 0.56 0.00-0.70 K/uL Basophils # (Auto) 0.03 0.00-0.20 K/uL Absolute Immature Granulocyte (auto 0.04 0-1 K/uL Nucleated Red Blood Cells 0.0 0.0-0.19 % Chemistry Labs: Test 09/03/25 15:48 09/03/25 07:20 Range/Units Whole Blood Glucose 176 H 70-110 MG/DL Sodium Level 138 136-145 mmol/L Potassium Level 3.3 L 3.5-5.1 mmol/L Chloride Level 100 L 101-111 mmol/L Carbon Dioxide Level 35 H 21-32 mmol/L Blood Urea Nitrogen 16 7-18 mg/dL Creatinine 0.7 0.5-1.0 mg/dL Glomerular Filtration Rate Calc 100 >90 mL/min Random Glucose 171 H 70-105 mg/dL Total Calcium 7.8 L 8.5-10.1 mg/dL Magnesium Level 2.00 1.80-2.40 mg/dL Total Bilirubin 0.5 0.2-1.0 mg/dL Aspartate Amino Transf (AST/SGOT) 45 H 10-37 U/L Alanine Aminotransferase (ALT/SGPT) 29 12-78 U/L Alkaline Phosphatase 189 H 50-136 U/L Total Protein 7.0 6.0-8.3 g/dL Albumin 1.8 L 3.5-5.0 g/dL DIAGNOSTICS / RADIOLOGY RESULTS: [ ] PLAN NEURO: Minimize central acting medications as possible. Fall Precautions. Well lighted room through the day and minimize interruptions through the night to prevent acute delirium. PULMONARY: Supplemental 02 as needed Titrate Fio2 to keep Spo2 > or = 90% DuoNebs and CPT as needed IS hourly while awake for pulmonary hygiene CARDIOVASCULAR: Follow hemodynamics. Titrate vasopressor to keep MAP >65 or systolic blood pressure >95mmHg GI & NUTRITION: Continue nutritional support Aspirations precautions Prokinetic agents and laxatives as needed Clear liquid diet as tolerated KIDNEYS & ELECTROLYTES: Strict monitoring of intake and output Daily weights Avoid nephrotoxic agents Monitor electrolytes and replace as needed Goal urine output of 30mL/hr or 0.5mL/kg/hr ENDOCRINE: Maintain blood glucose between 100-180 at all times. Insulin sliding scale for blood glucose management INFECTIOUS DISEASE: Trend temperature. Astudillo-culture if febrile. HEMATOLOGY & COAGULATION: Monitor H&H. Keep Hgb > 7 Transfuse 1 unit of PRBC for Hgb < 7 Transfuse 1 pack of platelets of platelets < 20, 000 Watch for any signs and symptoms of bleeding SKIN: Pressure ulcer prevention per facility protocol Rehab: PT/OT Prophylaxis: GI: PPI DVT: SCDs patient on heparin drip Code Status: Full Resuscitation Disposition: ICU Critical care time This patient required multiple bedside visits to manage the patient, review blood gases, coordinate with respiratory, nurses, review radiology exams, talk to the family members and discuss advanced directives. I personally spent 35 minutes of critical care time in treatment of this patient. This includes patient management, time at bedside, time reviewing tests, labs, appropriate images and studies, documentation, and patient care coordination. This time excludes separately billable procedures. ATTESTATION BY PHYSICIAN I reviewed the documentation, medical decision making, and treatment plan as noted by the mid-level provider above. I agree with the findings and plan of care. Vinayak Redd MD, [facility] Sep 03, 2025 21:09
[2025-09-04] VITALS (31 sets, daily range): BP systolic 95–150; BP diastolic 41–101; PULSE 78–105; RESP 11–26; TEMP 98.1–98.2; O2SAT 98–100
[2025-09-04] MEDS: BENZOCAINE/MENTH/CETYLPYRD CL 1 EACH LOZENGE MM PRN (00:35)
[2025-09-04 03:56] LABS: NUCLEATED RED BLOOD CELLS 0.0 % (0.0-0.19); PLATELET COUNT (AUTO) 326.0 K/uL (130-400); RED BLOOD CELL COUNT(AUTO) 3.12 MIL/uL (4.00-5.50); RED CELL DISTRIBUTION WIDTH 17.2 % (11.0-15.5); WHITE BLOOD COUNT (AUTO) 8.1 K/uL (4.8-10.8)
[2025-09-04 04:07] LABS: INR 1.06 (0.85-1.15)
[2025-09-04 04:08] LABS: CREATININE 0.6 mg/dL (0.5-1.0); GLOMERULAR FILTR. RATE CALC 104.0 mL/min (>90); GLUCOSE,RANDOM 173.0 mg/dL (70-105); SODIUM SERUM 139.0 mmol/L (136-145); UREA NITROGEN, BLOOD 16.0 mg/dL (7-18)
--- NOTE | 2025-09-04 06:53 | PN ---
[facility] Cardiology Progress Note CARDIOLOGY PROGRESS NOTE SEPTEMBER 04, 2025 Problems: 1. Non ST-elevation myocardial infarction in the setting of cocaine abuse complicated by cardiogenic shock requiring Impella support 2. Severe multivessel CAD with acute occlusion of the right coronary artery unable to be revascularized percutaneously with preop ejection fraction of 50% by echo status post aortocoronary bypass graft surgery with a BRO graft to the LAD saphenous graft to the obtuse marginal artery and saphenous graft to the 2nd diagonal artery 3. Ventricular standstill after anesthesia induction for removal of Impella device August 29 2025 4. Remote history of CVA 5. Diabetes mellitus type 2 uncontrolled on admission 6. Tobacco dependence 7. Dyslipidemia 8. Noncompliance with medication and follow up 9. Postop Ejection fraction of 45-50% Blood pressure this morning is running 110 systolic heart rate is in the 80s the patient is afebrile. White count 8.1 hemoglobin 9.5 platelet count [id number]. Potassium 3.8 BUN 16 creatinine 0.6. The patient continues on aspirin atorvastatin Lovenox oral furosemide insulin scale. Complain of some pain and weakness in her right lower extremity. The patient complains of some pain in her right lower extremity. A clinically in the extremity is warm. Posterior tibial pulses 2+. We have recommended an arterial ultrasound of the extremity to check blood flow after removal of the Impella pump. Pacing wire was still in place but she has not required any pacing since it was placed. Ventricular standstill when her Impella pump was removed. She has also had documented alternating right and left bundle branch block and plans are for permanent pacemaker. CHIRAG GATES MD Sep 04, 2025 06:53
[2025-09-04] MEDS ORDERED: SODIUM BICARB 50MEQ 50ML VIAL 50 ML ONE (07:11)
[2025-09-04] MEDS ORDERED: IOHEXOL-350 50ML VIAL IV ONE (07:11)
[2025-09-04] MEDS ORDERED: LIDOCAINE HCL 1% MDV 50ML VIAL ONE (07:11)
[2025-09-04] MEDS ORDERED: VANCOMYCIN 1G/250ML KIT 500 ML IV ONE (07:11)
--- NOTE | 2025-09-04 07:15 | NUR ---
PATIENT TAKEN TO [employer] TECHNICIAN WITH ELIA FORRESTER
[2025-09-04] MEDS: VANCOMYCIN 1G/250ML KIT 250 ML IV ONE (07:24)
--- NOTE | 2025-09-04 08:02 | NUR ---
Nutritional f/u Note: Chart, meds, and labs Reviewed. Pt reported good appetite and intake. Food preferences taken by dietary. Recommend: -continue heart healthy 60gm cc diet. -RD to provide further recommendations based on clinical progress. -Monitor feeding tolerance, %, wt, and labs -If No BM >3days consider bowel stimulant. - Please notify RD if additional nutrition concerns arise. Addendum: 09/04/25 at [address] Amended: Links added.
[2025-09-04] MEDS ORDERED: MIDAZOLAM HCL 1 MG/ML 2ML VIAL ONE ×3 (08:04→09:01)
--- NOTE | 2025-09-04 09:47 | PN ---
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 no immediate complications. Chest XR will be ordered to rule out pneumothorax post PPM Placement. Hemodynamically stable. No major overnight events. Laboratory unremarkable. No overnight major events. Plan: Follow CT surgeon recs Continue midodrine 15mg po tid.Post PPM placement CXR PT to eval and treat Follow I&Os Continue IV Zosyn for a total of 7 days ABX: Zosyn Lines/tubes: FC Total critical care time spent 35 minutes, this excludes any procedures performed or any time spent in educational or teaching. REVIEW OF SYSTEMS: 12 point ROS reviewed with patient. Pertinent positives mentioned above. Otherwise negative. PHYSICAL EXAM: GENERAL: alert, weak, awake oriented x 3 HEENT: moist mucosa NECK: Supple, no JVD, trachea midline LUNGS: Diminished breath sounds bilaterally. No wheezes HEART: Normal S1 and S2, without murmurs ABD: Abdomen soft, nontender. Bowel sounds present EXT: No clubbing cyanosis or edema. TVP rt groin, rt knee pain and swelling NEURO: Alert and oriented to person, follows commands Vital Signs (last 8hr) Date Time Temp Pulse Resp B/P (MAP) Pulse Ox O2 Delivery O2 Flow Rate FiO2 09/04/25 06:39 86 22 112/62 98 Nasal Cannula 2.0 09/04/25 06:17 86 20 N/Cannula Low lpm 2.0 28 09/04/25 05:40 84 18 121/73 98 Nasal Cannula 2.0 09/04/25 04:39 81 15 116/71 98 Nasal Cannula 2.0 09/04/25 04:18 98 Room Air* 0 21 09/04/25 03:39 98.2 81 19 108/41 99 Room Air 09/04/25 02:39 78 12 110/62 100 Room Air LABS: Hematology Labs: Test 09/04/25 03:44 09/03/25 07:20 Range/Units White Blood Count 8.1 4.8-10.8 K/uL Red Blood Count 3.12 L 4.00-5.50 MIL/uL Hemoglobin 9.5 L 12.0-16.0 g/dL Hematocrit 30.0 L 36-48 % Mean Corpuscular Volume 96.2 79-99 fL Mean Corpuscular Hemoglobin 30.4 27.0-33.0 pg Mean Corpuscular Hemoglobin Concent 31.7 L 32.0-36.0 g/dL Red Cell Distribution Width 17.2 H 11.0-15.5 % Platelet Count 326 130-400 K/uL Mean Platelet Volume 9.9 7.5-10.5 fL Nucleated Red Blood Cells 0.0 0.0-0.19 % Immature Granulocyte % (Auto) 0.5 0-1 % Neutrophils (%) (Auto) 65.4 40.0-77.0 % Lymphocytes (%) (Auto) 19.0 L 21.0-51.0 % Monocytes (%) (Auto) 8.2 3.0-13.0 % Eosinophils (%) (Auto) 6.5 0.0-8.0 % Basophils (%) (Auto) 0.4 0.0-5.0 % Neutrophils # (Auto) 5.6 1.8-7.7 K/uL Lymphocytes # (Auto) 1.6 1.0-4.8 K/uL Monocytes # (Auto) 0.7 0.1-1.0 K/uL Eosinophils # (Auto) 0.56 0.00-0.70 K/uL Basophils # (Auto) 0.03 0.00-0.20 K/uL Absolute Immature Granulocyte (auto 0.04 0-1 K/uL Chemistry Labs: Test 09/04/25 06:57 09/04/25 03:44 09/03/25 07:20 Range/Units Whole Blood Glucose 166 H 70-110 MG/DL Sodium Level 139 136-145 mmol/L Potassium Level 3.8 3.5-5.1 mmol/L Chloride Level 103 101-111 mmol/L Carbon Dioxide Level 33 H 21-32 mmol/L Blood Urea Nitrogen 16 7-18 mg/dL Creatinine 0.6 0.5-1.0 mg/dL Glomerular Filtration Rate Calc 104 >90 mL/min Random Glucose 173 H 70-105 mg/dL Total Calcium 8.2 L 8.5-10.1 mg/dL Magnesium Level 2.00 1.80-2.40 mg/dL Total Bilirubin 0.5 0.2-1.0 mg/dL Aspartate Amino Transf (AST/SGOT) 45 H 10-37 U/L Alanine Aminotransferase (ALT/SGPT) 29 12-78 U/L Alkaline Phosphatase 189 H 50-136 U/L Total Protein 7.0 6.0-8.3 g/dL Albumin 1.8 L 3.5-5.0 g/dL Coagulation Labs: Test 09/04/25 03:44 Range/Units Prothrombin Time 11.2 9.6-11.6 SEC Prothromb Time International Ratio 1.06 0.85-1.15 Activated Partial Thromboplast Time 27.2 26.3-35.5 SEC DIAGNOSTICS / RADIOLOGY RESULTS: [ ] [address] [address] IMAGING REPORT Signed PATIENT: LUL ARTHUR MR#: [id number] : 1965 SEX: F AGE: 60 LOCATION: 2BH ORDER [id number] STATUS: ADM IN REPORT#: [id number] SERVICE [id number] REASON: s/p PRIMER WATERPROOFING MACHINE OPERATOR-P ORDERING PHYSICIAN: JOSE MARIA LIMA MD PROCEDURE: CXR1VW - CHEST 1VW EXAM: CR CHEST ??? 1 VIEW CLINICAL HISTORY: Status post PRIMER WATERPROOFING MACHINE OPERATOR-P implantation. COMPARISON: CR Chest dated 02 September 2025. FINDINGS: Lungs: Previously seen mild interstitial and alveolar pulmonary edema has nearly completely resolved. The prior hazy opacity in the right mid and lower zones has also resolved. Pleural Spaces: Previously noted small bilateral pleural effusions show significant interval reduction, with resolution of the right-sided effusion and mild residual effusion on the left. No pneumothorax. Mediastinum / Cardiac Silhouette: Stable mild cardiomegaly with post-CABG median sternotomy wires and surgical clips. [place]???Guillaume catheter remains in appropriate position with the tip over the main pulmonary artery. Cardiac pacemaker (PRIMER WATERPROOFING MACHINE OPERATOR-P) is now noted in situ with leads projecting over the right atrium and right ventricle???lead positions appear satisfactory. No interval mediastinal widening. Bones and Soft Tissues: No acute or aggressive osseous lesion identified. IMPRESSION: * [place]???Guillaume catheter in appropriate position. * Cardiac pacemaker (PRIMER WATERPROOFING MACHINE OPERATOR-P) in situ with intact leads in satisfactory position???new finding compared to prior study. * Near complete resolution of previously seen interstitial and alveolar pulmonary edema. * Significant interval reduction of bilateral pleural effusions???right effusion resolved, mild residual left effusion. * Stable mild cardiomegaly with post-CABG changes. * No pneumothorax or new acute cardiopulmonary abnormality. * Previously seen right mid and lower zone opacity has resolved. Compared with 02 September 2025 ??? significant interval improvement in overall findings. /[place] DICTATED BY: DIONTE LEBRON MD DATE: 09/04/251622 ELECTRONICALLY SIGNED BY: DIONTE LEBRON MD DATE: 09/04/251622 PLAN NEURO: Minimize central acting medications as possible. Fall Precautions. Well lighted room through the day and minimize interruptions through the night to prevent acute delirium. PULMONARY: Supplemental 02 as needed Titrate Fio2 to keep Spo2 > or = 90% DuoNebs and CPT as needed IS hourly while awake for pulmonary hygiene CARDIOVASCULAR: Follow hemodynamics. Titrate vasopressor to keep MAP >65 or systolic blood pressure >95mmHg GI & NUTRITION: Continue nutritional support Aspirations precautions Prokinetic agents and laxatives as needed Clear liquid diet as tolerated KIDNEYS & ELECTROLYTES: Strict monitoring of intake and output Daily weights Avoid nephrotoxic agents Monitor electrolytes and replace as needed Goal urine output of 30mL/hr or 0.5mL/kg/hr ENDOCRINE: Maintain blood glucose between 100-180 at all times. Insulin sliding scale for blood glucose management INFECTIOUS DISEASE: Trend temperature. Astudillo-culture if febrile. HEMATOLOGY & COAGULATION: Monitor H&H. Keep Hgb > 7 Transfuse 1 unit of PRBC for Hgb < 7 Transfuse 1 pack of platelets of platelets < 20, 000 Watch for any signs and symptoms of bleeding SKIN: Pressure ulcer prevention per facility protocol Rehab: PT/OT Prophylaxis: GI: PPI DVT: SCDs patient on heparin drip Code Status: Full Resuscitation Disposition: ICU Critical care time This patient required multiple bedside visits to manage the patient, review blood gases, coordinate with respiratory, nurses, review radiology exams, talk to the family members and discuss advanced directives. I personally spent 35 minutes of critical care time in treatment of this patient. This includes patient management, time at bedside, time reviewing tests, labs, appropriate images and studies, documentation, and patient care coordination. This time excludes separately billable procedures. ATTESTATION BY PHYSICIAN I reviewed the documentation, medical decision making, and treatment plan as noted by the mid-level provider above. I agree with the findings and plan of care. Vinayak Redd MD, NELLY J AGACNP Sep 04, 2025 09:47
--- NOTE | 2025-09-04 11:00 | NUR ---
PATIENT JUST RETURNED FROM REMOVAL OF FEMORAL SHEATH. Addendum: 09/04/25 at 1226 by WAQAS COATES PT Amended: Links added.
--- NOTE | 2025-09-04 11:31 | PN ---
[facility] PROGRESS NOTE Date of Service: Sep 04, 2025 Time of Service: 11:29 SUBJECTIVE: This is a 60-year-old female with underlying history of obesity, coronary artery disease, poorly controlled type 2 diabetes mellitus, history of anemia, history of cocaine use, tobacco use disorder, history of CVA in 2008, who presented to the ER for further evaluation of severe substernal chest pain and shortness of breadth. Patient reports having history of cocaine use with last use of cocaine yesterday. She reports having severe substernal chest pain that started today in it has been associated with dizziness, and generalized malaise. Pain is 10/1 0 in severity. Patient denies any syncope or fall. She has been having lightheadedness with ambulation. She has not been able to follow up with Cardiology as outpatient. She has a previous history of abnormal CT coronary angiography when she was hospitalized in 04/2025 and she was treated medically. With regards to type 2 diabetes mellitus, she reports being on metformin as ou tpatient. On presentation to the hospital, patient was noted to be hypotensive with blood pressure of 80/60 with heart rate of 40 with EKG showing complete heart block. [place] [address], hemoglobin 12.4, platelet count of [id number]. BMP showed sodium of 133, potassium 4.8, chloride of 99, BUN of 21, creatinine 1.0, blood glucose of 403, [place] [address]. Chest x-ray showed no acute infiltrates. Patient will be admitted for further management of cardiogenic shock, NSTEMI, complete heart block with history of poorly controlled type 2 diabetes mellitus. Patient will be emergently taken to the record label intern for cardiac catheterization/ PCI and tentative plan for MCS support. Patient will be admitted to intensive care unit and she remains critically ill. 08/14 patient remains critically ill requiring Impella and dopamine support. UDS has demonstrated benzos and cocaine 08/15 patient remains on Impella 08/16 patient appears to be resting comfortably in bed. She remains on Impella and dopamine support. She reports she would like to be bathed and wants her hair combed significant and she is feeling better 08/17 patient is on GI soft diet tolerating well. She remains on Impella support 08/18 patient is resting comfortably in bed. She remains on Impella. Tolerating oral intake. 08/19 hemoglobin dropped to 6.5 from 7.0-7.5 yesterday. I agree with transfusing 1 unit PRBC. Patient remains on Impella. Patient is resting comfortably in bed. 08/20 patient is resting comfortably in bed. She remains on Impella support pending recovery for CABG. 08/21 patient underwent CABG x3 yesterday, no complications reported patient remains on Impella the patient is on norepinephrine, amiodarone, dopamine, insulin drip 08/22 postop day 2. From CABG x3. Patient does awaken to verbal stimulation and states she has some chest pain and slight shortness for breath she feels the pain as incisional from her open heart procedure. He is on p.o. amiodarone and being weaned off norepinephrine. 08/23 postop day 3 from CABG x3. Patient is in bed visiting with her son at the bedside. She states she has no shortness for breath, she does have some incisional chest discomfort, no nausea or vomiting or diarrhea. She is off nor epinephrine drip and remains with the Impella assist. 08/24 patient is seen and examined at bedside, discussed with the RN, no acute events overnight, remains with the Impella support, postoperative day four from CABG x3. She is awake, following commands. Off vasopressors. Remains on heparin drip and sodium bicarbonate drip. Continue to follow critical Care and Cardiothoracic input and recommendation. 08/25 PATIENT IS SEEN AND EXAMINED AT BEDSIDE, DISCUSSED WITH THE RN, NO ACUTE EVENTS OVERNIGHT, PATIENT FOLLOWING COMMANDS, SHE REMAINS WITH THE IMPELLA SUPPORT, CHEST TUBE IN PLACE, POSTOPERATIVE DAY FIVE, STATUS POST CABG. CU RRENTLY OFF PRESSORS, ON HEPARIN DRIP. CONTINUE TO FOLLOW CRITICAL CARE AND CARDIOTHORACIC INPUT AND RECOMMENDATIONS. POSSIBLE REMOVAL OF IMPELLA SUPPORT TODAY. 08/26 patient is seen and examined at bedside, discussed with the RN, no acute events overnight, remains with the Impella support, postoperative day four from CABG x6. She is awake, following commands. Off vasopressors. Remains on heparin drip, continue with chest tube in place, continue to follow Cardiothoracic input and recommendation. 08/27 patient is seen and examined at bedside, case discussed with the RN, no acute events overnight, patient awake, following commands, still with the Impella support, status post CABG. No chest pain, shortness shortness for breath, no nausea, no vomiting. Continue with chest tube in place. BP 132/74, afebrile, saturating 99% 4 L nasal cannula. CBC with a hemoglobin 9.0, hematocrit 28.1, WBC 12.2, with a platelet count of 152. Sodium 140, potassium 4.0, BUN of 12, creatinine 0.6, initially 2.10. Cardiology input noted and appreciated, echocardiogram ordered, we will follow report. Continue to follow Cardiothoracic input and recommendation. 08/28 patient is seen and examined at bedside, case discussed with the RN, no acute events overnight, patient remains admitted to the ICU, the time of my visit, awake, following command, NPO, she is scheduled to be taken to the operating room today for removal of Impella support by cardio thoracic surgeons, we will continue to follow input and recommendation. Limited 2D echo performed yesterday shows left ventricular cavity size is normal, Impella device measuring 5.6 cm into LV. Left ventricular ejection fraction 55-60%, no pericardial effusion. 08/29 patient is seen and examined at bedside, case discussed with the RN, no acute events overnight, patient remains admitted to the ICU, the time of my visit, awake, following command, NPO, she is scheduled to be taken to the operating room today for removal of Impella support by cardio thoracic surgeons, we will continue to follow input and recommendation. Limited 2D echo performed yesterday shows left ventricular cavity size is normal, Impella device measuring 5.6 cm into LV. Left ventricular ejection fraction 55-60%, no pericardial effusion. 08/30 patient is seen and examined at bedside, discussed with the RN, no acute events overnight, status post interval removal of Impella and placement of p ericardial patch in the operating room by Cardiothoracic surgeon, 08/29/2025, tolerated the procedure well. Patient will remain admitted to the ICU, we will continue to follow Cardiothoracic input and recommendation. Follow a.m. labs. Continue Lasix, follow intake and output, daily chest x-ray, continue heparin drip, follow critical care input and recommendation. Patient completed 10 days of Rocephin and a dose of vancomycin. Completed three days of Ancef. 08/31 patient is seen and examined at bedside, discussed with the RN, no acute events overnight, patient remains admitted to the ICU, now she is intubated, mechanical ventilation, however awake, following commands, on low-dose Precedex, also on Lasix drip, Levophed drip, patient is status post interval removal of Impella support device per Cardiothoracic surgeon. Tolerated well. Hemoglobin today 9.1, hematocrit 27.4, ABG pH 7.48, pCO2 40, PO2 95.8, bicarb 29.1, chest x-ray pending. Continue to follow Cardiothoracic input recommendation, for continue care input and recommendation terms of extubation, wean off Levophed. 09/01 patient is seen and examined at bedside, remains admitted to the ICU, status post interval extubation. She is alert and oriented, following commands, remains on Levophed and Lasix drip. Chest tube in place. BP 113/46, hemoglobin 9.9, hematocrit 30.3, WBC 12.0, platelet count of 218. Sodium 138, potassium 3.9, BUN of 13, creatinine 0.9. Discussed with the RN, pending EP evaluation for possible pacemaker. We will follow, continue to follow Cardiothoracic input and recommendation. Critical care input noted and appreciated. Follow a.m. labs. 09/02 patient is seen and examined at bedside, case discussed with the RN, remains admitted to the ICU, at the time of my visit she is alert oriented x3, remains on Lasix Levophed getting IV antibiotics. Oriented patient is status post coronary artery bypass grafting, status post right femoral artery repair. Cardiothoracic input noted and appreciated, input has been noted, Impella has b een successfully unit, patient will remain on low-dose Levophed, Lasix, IV antibiotics, continue chest tube in place. Patient supplemental oxygen via nasal cannula at 2 L to keep oxygen saturation greater than 92%. Continue to follow critical care input recommendation, follow a.m. labs. 09/03 patient is seen and examined at bedside, case discussed with the RN, no acute events overnight, the patient remains admitted to the ICU, awake, following commands, currently off Levophed, maintaining good blood pressure support. Currently on IV antibiotics. Hemoglobin 9.3, hematocrit 28.9, platelet count of 301. Patient is status post interval removal of chest tubes. Remains on aspirin, atorvastatin, furosemide. Continue midodrine. Doppler of the lower extremities negative for DVT. Patient complained on my pain to the right leg, we will request arterial Doppler of the right leg, status post Impella removal. Continue to follow EP input recommendation in terms of pacemaker. 09/04 patient is seen and examined at bedside, case discussed with the RN, no acute events overnight, the patient remains admitted to the ICU, awake, following commands, currently off Levophed, maintaining good blood pressure support. Currently on IV antibiotics. Remains on aspirin, atorvastatin, furosemide. Continue midodrine. Doppler of the lower extremities negative for DVT. Patient complained on my pain to the right leg, we will request arterial Doppler of the right leg, status post Impella removal. Scheduled for pacemaker placement by manager of medical Dr Lawson today. REVIEW OF SYSTEMS CONSTITUTIONAL: generalized fatigue, malaise NEUROLOGICAL: Denies headache, amaurosis fugax, motor weakness, sensory deficit, vertigo/spinning sensation, gait abnormalities, or tremors. ENT: No hearing loss, otalgia, otorrhea, rhinitis, rhinorrhea, hoarseness, or sore throat. CARDIOVASCULAR: Mild incisional chest pain, no shortness breath PULMONARY: Denies any shortness of breath, cough, phlegm/sputum, hemoptysis, pleuritic chest pain. SLEEP: Denies morning headaches, daytime somnolence or napping. Denies difficul ty falling asleep, staying asleep, waking from sleep. Denies knowledge of snoring. GASTROINTESTINAL: No nausea, Denies any type of dysphagia to either liquids or solids. Denies vomiting, pyrosis, early satiety, abdominal pain, diarrhea, constipation, or changes in stool consistency or caliber. Denies coffee-ground emesis, hematemesis, hematochezia, or melanotic stools. GENITOURINARY: Denies frequency, urgency, nocturia, hematuria or incontinence (Storage/Irritative symptoms.) Low urinary stream, straining to void, urinary intermittency or hesitancy, splitting of the voiding stream, terminal dribbling. ENDOCRINOLOGIC: Denies polyuria, polydipsia, polyphagia or heat/cold int olerances. HEMATOLOGIC: Denies thrombophilia/previous clots, or coagulopathy/bleeding disorders. ONCOLOGIC: Denies personal history of malignancy. DERMATOLOGIC: Denies rashes or pruritus. PSYCHIATRIC: Denies any suicidal or homicidal ideation. Denies hallucinations. PHYSICAL EXAM GENERAL APPEARANCE: Extubated, awake, following commands. NEUROLOGICAL: Cranial nerves II-XII grossly intact. Motor is 5/5 in bilateral upper and lower extremities proximal to distal. No sensory deficits. HEENT: Face is symmetric. Pupils are equal and reactive. Extraocular movements are intact. NECK: Supple. No JVD. No thyromegaly. No submental, submandibular, pre- /postauricular, occipital or supraclavicular lymphadenopathy. CHEST: Normal chest expansion. No Telemetry. LUNGS: minimal crackles noted of the bilateral lung bases CARDIOVASCULAR: Regular. S1 and S2 normal. No appreciable rubs, murmurs or gallops. ABDOMEN: Soft, nontender, and nondistended. There is no rebound, voluntary guarding, or rigidity. : Deferred. No Coombs. EXTREMITIES: trace edema noted of the bilateral lower extremities SKIN: No skin breakdown. Vital Signs (last 8hr) Date Time Temp Pulse Resp B/P (MAP) Pulse Ox O2 Delivery O2 Flow Rate FiO2 09/04/25 06:39 86 22 112/62 98 Nasal Cannula 2.0 09/04/25 06:17 86 20 N/Cannula Low lpm 2.0 28 09/04/25 05:40 84 18 121/73 98 Nasal Cannula 2.0 09/04/25 04:39 81 15 116/71 98 Nasal Cannula 2.0 09/04/25 04:18 98 Room Air* 0 21 09/04/25 03:39 98.2 81 19 108/41 99 Room Air LABS: Laboratory: Test 09/04/25 11:21 09/04/25 03:44 09/03/25 07:20 Range/Units Whole Blood Glucose 151 H 70-110 MG/DL White Blood Count 8.1 4.8-10.8 K/uL Red Blood Count 3.12 L 4.00-5.50 MIL/uL Hemoglobin 9.5 L 12.0-16.0 g/dL Hematocrit 30.0 L 36-48 % Mean Corpuscular Volume 96.2 79-99 fL Mean Corpuscular Hemoglobin 30.4 27.0-33.0 pg Mean Corpuscular Hemoglobin Concent 31.7 L 32.0-36.0 g/dL Red Cell Distribution Width 17.2 H 11.0-15.5 % Platelet Count 326 130-400 K/uL Mean Platelet Volume 9.9 7.5-10.5 fL Nucleated Red Blood Cells 0.0 0.0-0.19 % Prothrombin Time 11.2 9.6-11.6 SEC Prothromb Time International Ratio 1.06 0.85-1.15 Activated Partial Thromboplast Time 27.2 26.3-35.5 SEC Sodium Level 139 136-145 mmol/L Potassium Level 3.8 3.5-5.1 mmol/L Chloride Level 103 101-111 mmol/L Carbon Dioxide Level 33 H 21-32 mmol/L Blood Urea Nitrogen 16 7-18 mg/dL Creatinine 0.6 0.5-1.0 mg/dL Glomerular Filtration Rate Calc 104 >90 mL/min Random Glucose 173 H 70-105 mg/dL Total Calcium 8.2 L 8.5-10.1 mg/dL Immature Granulocyte % (Auto) 0.5 0-1 % Neutrophils (%) (Auto) 65.4 40.0-77.0 % Lymphocytes (%) (Auto) 19.0 L 21.0-51.0 % Monocytes (%) (Auto) 8.2 3.0-13.0 % Eosinophils (%) (Auto) 6.5 0.0-8.0 % Basophils (%) (Auto) 0.4 0.0-5.0 % Neutrophils # (Auto) 5.6 1.8-7.7 K/uL Lymphocytes # (Auto) 1.6 1.0-4.8 K/uL Monocytes # (Auto) 0.7 0.1-1.0 K/uL Eosinophils # (Auto) 0.56 0.00-0.70 K/uL Basophils # (Auto) 0.03 0.00-0.20 K/uL Absolute Immature Granulocyte (auto 0.04 0-1 K/uL Magnesium Level 2.00 1.80-2.40 mg/dL Total Bilirubin 0.5 0.2-1.0 mg/dL Aspartate Amino Transf (AST/SGOT) 45 H 10-37 U/L Alanine Aminotransferase (ALT/SGPT) 29 12-78 U/L Alkaline Phosphatase 189 H 50-136 U/L Total Protein 7.0 6.0-8.3 g/dL Albumin 1.8 L 3.5-5.0 g/dL Current Medications Medications (Trade) Dose Ordered Sig/Elmer Route PRN Reason Start Time Stop Time Status Last Admin Dose Admin Acetaminophen (TYLenol 325MG TAB) 650 mg Q4H PRN PO Temp >38.3C(AFTER EXTUBATION) 08/20/25 17:00 09/04/25 10:40 DC Acetaminophen (TYLenol 325MG TAB) 650 mg Q6H PRN PO MILD PAIN (1-3) 08/13/25 16:30 09/04/25 10:40 DC 09/04/25 03:33 650 MG Acetaminophen (TYLenol 500MG TAB) 500 mg Q6H PRN PO TEMP < 101.1 AND/OR HEADACHE 08/14/25 14:30 09/13/25 14:29 08/26/25 10:41 500 MG Acetaminophen (TYLenol 500MG TAB) 1,000 mg Q6H PRN PO MILD PAIN (1-3) 09/04/25 10:30 10/04/25 10:29 Acetaminophen (TYLenol 650MG SUPPOSITORY) 650 mg Q4H PRN RC Temp >38.3C WHILE INTUBATED 08/20/25 17:00 09/19/25 16:59 Acetaminophen (acetaMINOPHEN 1,000MG/100ML) 1,000 mg Q6H6 IVPB 08/21/25 12:00 09/04/25 10:41 DC 09/04/25 07:06 1,000 MG Acetaminophen/ Codeine Phosphate (TYLenol-coDEINE TAB) 1 tab Q4H PRN PO MODERATE PAIN (4-6) 09/04/25 11:00 10/04/25 10:59 Acetaminophen/ Codeine Phosphate (TYLenol-coDEINE TAB) 2 tab Q4H PRN PO SEVERE PAIN (7-10) 09/04/25 10:30 10/04/25 10:29 Albumin Human 50 ml @ 0 mls/hr BID IV 08/18/25 09:00 08/23/25 08:59 DC 08/22/25 20:56 100 MLS/HR Albumin Human 250 ml @ 0 mls/hr AD PRN IV IF HEMODYNAMICALLY UNSTABLE 08/20/25 17:00 08/20/25 22:46 DC 08/20/25 22:46 0 MLS/HR Aminocaproic Acid 96192 mg/Sodium Chloride 310 ml @ 25 mls/hr AD IV 08/20/25 17:00 08/21/25 05:23 DC Aminocaproic Acid 88858 mg/Sodium Chloride 480 ml @ 0 mls/hr AD PRN IV BLEEDING CONTROL 08/20/25 08:00 09/02/25 07:55 DC Aminocaproic Acid 43164 mg/Sodium Chloride 480 ml @ 0 mls/hr AD PRN IV BLEEDING CONTROL 08/20/25 09:00 08/20/25 09:03 DC Amiodarone HCl (pacERONE 200MG) 200 mg BID PO 08/22/25 09:00 08/29/25 21:00 DC 08/28/25 20:25 200 MG Amiodarone HCl 360 mg/Dextrose 207.2 ml @ 33.3 mls/hr AD IV 08/20/25 21:00 08/20/25 21:05 DC Amiodarone HCl 540 mg/Dextrose 310.8 ml @ 16.7 mls/hr [id number] IV 08/21/25 03:00 08/27/25 06:20 DC 08/21/25 20:12 16.7 MLS/HR Amiodarone HCL/ Dextrose 207.2 ml @ 33.3 mls/hr AD IV 08/20/25 21:30 08/21/25 10:49 DC 08/20/25 21:24 33.3 MLS/HR Aspirin (Aspirin 81mg Chew Tab) 81 mg DAILY PO 08/14/25 09:00 09/13/25 08:59 09/03/25 08:21 81 MG Atorvastatin Calcium (LIPItor 40MG) 40 mg HS PO 08/13/25 21:00 09/12/25 20:59 09/03/25 21:50 40 MG Benzocaine (Cepacol Sore Throat Lozenge) 1 each Q4H PRN MM SORE THROAT 08/26/25 11:30 09/25/25 11:29 09/04/25 00:35 1 EACH Bisacodyl (DulcoLAX) 10 mg DAILY RC 08/17/25 09:00 08/20/25 08:59 DC 08/18/25 07:58 10 MG Calcium Carbonate (Tums 500 Mg Chew Tab) 500 tab QID PRN PO HEARTBURN 08/19/25 12:00 08/20/25 16:32 DC 08/20/25 05:10 1 TAB Calcium Gluconate 1 gm/Sodium Chloride 60 ml @ 200 mls/hr AD PRN IV HYPOCALCEMIA 08/20/25 17:00 09/19/25 16:59 08/30/25 03:43 200 MLS/HR Cefazolin Sodium (Ancef) 2 gm ONCALL IVP 08/19/25 19:30 08/21/25 08:36 DC 08/20/25 16:30 2 GM Cefazolin Sodium (Ancef) 2 gm Q8H IVPB 08/20/25 22:00 08/21/25 14:01 DC 08/21/25 13:45 2 GM Ceftriaxone Sodium (Rocephin 2gm Inj) 2 gm Q24H IVPB 08/14/25 11:30 08/24/25 11:29 DC 08/23/25 12:16 2 GM Chlordiazepoxide HCl (LIBrium 25 MG CAP) 25 mg Q2H PRN PO ALCOHOL WITHDRAWAL PROTOCOL 08/14/25 14:30 08/20/25 16:32 DC 08/16/25 23:38 25 MG Chlordiazepoxide HCl (LIBrium 25 MG CAP) 50 mg Q1H PRN PO ALCOHOL WITHDRAWAL PROTOCOL 08/14/25 14:30 08/20/25 16:32 DC Dexmedetomidine/ Sodium Chloride (PRECEdex 400MCG/ 100ML-NS) 400 mcg PROTOCOL IV 08/20/25 20:30 09/19/25 20:29 08/31/25 06:18 400 MCG Dextrose (D50w) 50 ml AD PRN IV HYPOGLYCEMIA PROTOCOL 08/20/25 17:00 09/19/25 16:59 Dextrose (D50w) 50 ml AD PRN IV HYPOGLYCEMIA PROTOCOL 08/13/25 20:00 08/20/25 22:03 DC Diphenhydramine HCl (BENAdryl INJ) 25 mg ONCE PRN IV ITCHING 08/15/25 23:00 08/17/25 22:59 DC Docusate Sodium (COLace 100MG CAP) 100 mg BID PRN PO CONSTIPATION 08/14/25 11:00 09/13/25 10:59 Dopamine HCl/ Dextrose 250 ml @ 0 mls/hr PROTOCOL IV 08/13/25 16:00 09/12/25 15:59 08/16/25 16:41 3 MLS/HR Enoxaparin Sodium (Lovenox) 40 mg DAILY SQ 09/03/25 09:00 09/04/25 10:33 DC 09/03/25 08:22 40 MG Epinephrine HCl 10 mg/Sodium Chloride 250 ml @ 14.091 mls/ hr AD PRN IV POST-OP CARDIOVASCULAR ORDERS 08/20/25 17:00 08/21/25 10:49 DC Epinephrine HCl 10 mg/Sodium Chloride 250 ml @ 0 mls/hr AD PRN IV TITRATE 08/20/25 08:00 09/19/25 07:59 08/26/25 16:56 0 MLS/HR Epinephrine HCl 10 mg/Sodium Chloride 250 ml @ 0 mls/hr AD PRN IV TITRATE 08/20/25 09:00 08/20/25 09:03 DC Famotidine (Pepcid 20mg Vial) 20 mg BID IV 08/20/25 21:00 08/22/25 08:20 DC 08/21/25 20:17 20 MG Famotidine (Pepcid 20mg Tab) 20 mg BID PO 08/22/25 09:00 09/21/25 08:59 09/03/25 21:50 20 MG Folic Acid (FOLic ACID 1 MG TABLET) 1 mg DAILY PO 08/15/25 09:00 08/17/25 09:01 DC 08/17/25 07:46 1 MG Furosemide (LASix 20MG VIAL) 20 mg Q12H IV 08/21/25 11:30 08/22/25 14:17 DC 08/22/25 11:53 20 MG Furosemide (LASix 20MG VIAL) 20 mg Q12H IV 08/22/25 21:00 08/23/25 11:37 DC 08/23/25 09:50 20 MG Furosemide (LASix 20MG VIAL) 40 mg Q12H IV 08/22/25 21:00 08/22/25 14:32 DC Furosemide (LASix 40MG VIAL) 40 mg Q12H IV 08/23/25 11:30 08/30/25 11:08 DC 08/29/25 22:38 40 MG Furosemide (LASix 40MG VIAL) 40 mg Q12H IV 09/02/25 11:00 10/02/25 10:59 09/03/25 23:12 40 MG Furosemide 100 mg/ Sodium Chloride 100 ml @ 0 mls/hr PROTOCOL IV 08/30/25 11:30 09/02/25 10:56 DC 09/02/25 09:12 10 MLS/HR Gabapentin (NEURontin 300 MG CAP) 300 mg TID PO 08/23/25 14:00 09/22/25 13:59 09/03/25 21:50 300 MG Glucagon (Glucagon 1mg Kit) 1 mg AD PRN IM HYPOGLYCEMIA PROTOCOL 08/20/25 17:00 09/19/25 16:59 Glucagon (Glucagon 1mg Kit) 1 mg AD PRN IM HYPOGLYCEMIA PROTOCOL 08/13/25 20:00 08/21/25 10:49 DC Heparin Sodium (Porcine) (HEParin 5,000 UNIT VIAL) *calculation based on ACTUAL B... AD PRN IV HEPARIN PROTOCOL 08/13/25 16:30 08/20/25 16:32 DC 08/17/25 04:46 3,175 UNIT Heparin Sodium/ Dextrose 250 ml @ 0 mls/hr PROTOCOL IV 08/21/25 11:30 09/03/25 06:32 DC 08/28/25 15:28 10.54 MLS/HR Heparin Sodium/ Dextrose 250 ml @ 0 mls/hr Q6H IV 08/13/25 16:30 08/20/25 16:32 DC 08/19/25 22:03 11.78 MLS/HR Insulin Glargine (LANtus 100 UNITS/ML 10 ML VIAL) 5 units BID@0730,2100 SQ 08/16/25 21:00 08/17/25 09:31 DC 08/16/25 21:21 5 UNITS Insulin Glargine (LANtus 100 UNITS/ML 10 ML VIAL) 10 units HS SQ 08/13/25 21:00 08/14/25 06:16 DC 08/13/25 20:21 10 UNITS Insulin Glargine (LANtus 100 UNITS/ML 10 ML VIAL) 15 units DAILY SQ 08/23/25 09:00 08/28/25 07:20 DC 08/27/25 08:35 15 UNITS Insulin Glargine (LANtus 100 UNITS/ML 10 ML VIAL) 20 units DAILY SQ 08/14/25 09:00 08/15/25 07:24 DC 08/14/25 08:01 20 UNITS Insulin Glargine (LANtus 100 UNITS/ML 10 ML VIAL) 20 units DAILY SQ 08/28/25 09:00 09/27/25 08:59 09/03/25 08:23 20 UNITS Insulin Glargine (LANtus 100 UNITS/ML 10 ML VIAL) 30 units DAILY SQ 08/15/25 09:00 08/16/25 07:19 DC 08/15/25 08:28 30 UNITS Insulin Glargine (LANtus 100 UNITS/ML 10 ML VIAL) 35 units DAILY SQ 08/16/25 09:00 08/19/25 07:35 DC 08/18/25 07:59 35 UNITS Insulin Glargine (LANtus 100 UNITS/ML 10 ML VIAL) 42 units DAILY SQ 08/19/25 09:00 08/20/25 06:22 DC 08/19/25 09:40 42 UNITS Insulin Glargine (LANtus 100 UNITS/ML 10 ML VIAL) 45 units DAILY SQ 08/20/25 09:00 08/20/25 16:32 DC Insulin Human Lispro (HumaLOG LISpro 100 UNIT/ML 3ML) INSULIN SLIDING SCAL... ACHS SQ 08/16/25 21:00 08/17/25 09:31 DC Insulin Human Regular (humuLIN R 100 UNIT/ML 3ML) 3 unit TIDAC SQ 08/27/25 07:30 08/27/25 20:56 DC 08/27/25 16:47 3 UNIT Insulin Human Regular (humuLIN R 100 UNIT/ML 3ML) 5 unit TIDAC SQ 08/14/25 17:00 08/15/25 07:24 DC 08/15/25 07:03 5 UNIT Insulin Human Regular (humuLIN R 100 UNIT/ML 3ML) 6 unit TIDAC SQ 08/28/25 07:30 09/27/25 07:29 09/03/25 16:31 6 UNIT Insulin Human Regular (humuLIN R 100 UNIT/ML 3ML) 8 unit TIDAC SQ 08/15/25 07:30 08/15/25 22:46 DC 08/15/25 16:02 8 UNIT Insulin Human Regular (humuLIN R 100 UNIT/ML 3ML) 10 unit TIDAC SQ 08/16/25 07:30 08/17/25 21:12 DC 08/17/25 16:09 10 UNIT Insulin Human Regular (humuLIN R 100 UNIT/ML 3ML) 12 unit TIDAC SQ 08/18/25 07:30 08/18/25 20:19 DC 08/18/25 16:39 12 UNIT Insulin Human Regular (humuLIN R 100 UNIT/ML 3ML) 16 unit TIDAC SQ 08/19/25 07:30 08/20/25 06:22 DC 08/19/25 16:47 16 UNIT Insulin Human Regular (humuLIN R 100 UNIT/ML 3ML) 17 unit TIDAC SQ 08/20/25 07:30 08/20/25 16:32 DC Insulin Human Regular (humuLIN R 100 UNIT/ML 3ML) INSULIN SLIDING SCAL... ACHS SQ 08/17/25 16:30 08/20/25 16:32 DC 08/19/25 21:31 8 UNIT Insulin Human Regular (humuLIN R 100 UNIT/ML 3ML) INSULIN SLIDING SCAL... ACHS SQ 08/22/25 11:30 08/22/25 21:32 DC 08/22/25 20:58 3 UNIT Insulin Human Regular (humuLIN R 100 UNIT/ML 3ML) INSULIN SLIDING SCAL... ACHS SQ 08/23/25 07:30 09/22/25 07:29 09/03/25 16:30 2 UNIT Insulin Human Regular (humuLIN R 100 UNIT/ML 3ML) INSULIN SLIDING SCAL... ACHS SQ 08/13/25 16:30 08/16/25 20:46 DC 08/16/25 20:01 4 UNIT Insulin Human Regular 100 unit/ Sodium Chloride 100 ml @ 0 mls/hr AD IV 08/20/25 17:00 08/22/25 16:59 DC 08/21/25 15:00 5 MLS/HR Iron Sucrose (VenoFER) 200 mg DAILY IV 08/21/25 13:00 08/23/25 09:43 DC 08/22/25 11:53 200 MG Iron Sucrose (VenoFER) 200 mg DAILY IV 08/23/25 09:00 08/26/25 08:57 DC 08/25/25 09:25 200 MG Lidocaine (Lidocaine Patch 4%) 1 each DAILY TP 08/19/25 09:00 09/18/25 08:59 09/03/25 08:24 1 EACH Lidocaine HCl/ Dextrose 250 ml @ 0 mls/hr PROTOCOL IV 08/21/25 00:00 09/20/25 00:00 Lidocaine/ Prilocaine (Emla) 1 appl ONCE TP 08/31/25 13:30 09/01/25 07:33 DC 08/31/25 13:59 1 APPL Magnesium Sulfate 50 ml @ 12.5 mls/hr AD PRN IV MAG LEVEL LESS THAN 2.0 08/20/25 17:00 09/02/25 09:48 DC 09/02/25 09:19 12.5 MLS/HR Magnesium Sulfate 50 ml @ 0 mls/hr PROTOCOL IV 09/02/25 10:00 10/02/25 09:59 Magnesium Sulfate 50 ml @ 0 mls/hr PROTOCOL IV 08/13/25 16:30 08/21/25 10:49 DC 08/21/25 05:58 25 MLS/HR Midodrine (PROAMatine 5 MG TABLET) 5 mg Q6H6 PO 08/26/25 16:00 09/01/25 10:53 DC 09/01/25 06:57 5 MG Midodrine (PROAMatine 5 MG TABLET) 10 mg Q6H6 PO 09/01/25 12:00 09/02/25 16:25 DC 09/02/25 12:32 10 MG Midodrine (PROAMatine 5 MG TABLET) 15 mg Q6H6 PO 09/02/25 18:00 10/02/25 17:59 09/03/25 23:34 15 MG Morphine Sulfate (morPHINE 2MG SYG) 0.5 mg Q2H PRN IV MODERATE PAIN (4-6) 08/20/25 17:00 08/20/25 18:07 DC Morphine Sulfate (morPHINE 2MG SYG) 2 mg Q6H PRN IVP SEVERE PAIN (7-10) 08/19/25 18:00 08/20/25 16:32 DC 08/19/25 17:50 2 MG Morphine Sulfate (morPHINE 4MG SYG) 0.5 mg Q2H PRN IV MODERATE PAIN (4-6) 08/20/25 18:30 08/21/25 16:59 DC Morphine Sulfate (morPHINE 4MG SYG) 1 mg Q2H PRN IV SEVERE PAIN (7-10) 08/20/25 17:00 08/21/25 16:59 DC Morphine Sulfate (morPHINE 4MG SYG) 2 mg Q6H PRN IVP SEVERE PAIN (7-10) 08/14/25 09:30 08/19/25 12:29 DC 08/19/25 12:22 2 MG Multivitamins Therapeutic (Multivitamin Tablet) 1 tab DAILY PO 08/15/25 09:00 09/14/25 08:59 09/03/25 08:20 1 TAB Nitroglycerin/ Dextrose 0 ml @ 0 mls/hr AD IV 08/20/25 17:00 08/23/25 16:59 DC Nitroglycerin/ Dextrose 250 ml @ 0 mls/hr PROTOCOL IV 08/20/25 03:30 08/20/25 16:32 DC 08/20/25 03:12 1.5 MLS/HR Norepinephrine 250 ml @ 0 mls/hr PROTOCOL IV 08/13/25 15:30 08/20/25 08:31 DC Norepinephrine Bitartrate 250 ml @ 0 mls/hr AD PRN IV TITRATE 08/20/25 08:00 09/19/25 07:59 09/01/25 23:29 6.18 MLS/HR Norepinephrine Bitartrate 250 ml @ 0 mls/hr AD PRN IV TITRATE 08/20/25 09:00 08/20/25 09:03 DC Norepinephrine Bitartrate 8 mg/ Dextrose 250 ml @ 0 mls/hr AD PRN IV POST-OP CARDIOVASCULAR ORDERS 08/20/25 17:00 08/21/25 10:49 DC Ondansetron HCl (zoFRAN 4MG INJ) 4 mg Q4H PRN IV NAUSEA 08/14/25 14:30 08/20/25 16:32 DC 08/14/25 14:17 4 MG Ondansetron HCl (zoFRAN 4MG INJ) 4 mg Q6H PRN IV NAUSEA/VOMITING 08/20/25 17:00 09/19/25 16:59 08/29/25 12:47 4 MG Ondansetron HCl (zoFRAN 4MG INJ) 4 mg Q6H PRN IVP NAUSEA/VOMITING 08/13/25 16:30 08/14/25 14:08 DC Pantoprazole Sodium (PROTonix 40MG INJ) 40 mg Q12H IVP 08/17/25 16:30 08/20/25 16:32 DC 08/20/25 03:53 40 MG Pantoprazole Sodium (PROTonix 40MG INJ) 40 mg Q24H IVP 08/13/25 16:30 08/17/25 11:10 DC 08/16/25 16:07 40 MG Pharmacy Profile Note (Pharmacy Communication) 1 each PROTOCOL PRN MISC ETOH Withdrawal Score changes 08/14/25 14:30 08/14/25 14:08 DC Phenylephrine HCl 100 mg/Sodium Chloride 250 ml @ 0 mls/hr PROTOCOL IV 08/26/25 20:30 09/25/25 20:29 Piperacillin Sod/ Tazobactam Sod (Zosyn 3.375gm+NS 50ml) 3.375 gm Q8H IV 08/30/25 10:00 09/09/25 09:59 09/04/25 03:37 3.375 GM Polyethylene Glycol (MIRalax 3350 17 GM POWD.PACK) 17 gm DAILY PO 08/15/25 09:00 09/14/25 08:59 09/03/25 08:24 17 GM Potassium Phosphate 250 ml @ 42 mls/hr AD PRN IV LOW PHOS LEVEL 08/20/25 17:00 09/19/25 16:59 Potassium Chloride 100 ml @ 100 mls/hr AD PRN IV HYPOKALEMIA 08/20/25 17:00 09/19/25 16:59 09/03/25 09:38 100 MLS/HR Potassium Chloride 100 ml @ 100 mls/hr AD PRN IV POTASSIUM PROTOCOL 08/13/25 16:30 08/20/25 16:32 DC 08/16/25 16:07 100 MLS/HR Potassium Chloride (K-Dur/Klor-Con 20meq) 20 meq AD PRN PO POTASSIUM PROTOCOL 08/13/25 16:30 08/20/25 16:32 DC 08/15/25 08:23 20 MEQ Potassium Chloride (KCl 10% Elixir 20meq/15ml) 20 meq AD PRN PO POTASSIUM PROTOCOL 08/13/25 16:30 08/20/25 16:32 DC Promethazine HCl (Phenergan) 25 mg Q6H PRN PO NAUSEA 08/14/25 14:30 08/20/25 16:32 DC Propofol 100 ml @ 0 mls/hr AD PRN IV SEDATION 08/20/25 17:00 08/24/25 17:00 DC Sodium Bicarbonate 25 meq/Dextrose 1,000 ml @ 0 mls/hr Q0M IV 08/14/25 00:30 09/13/25 00:29 08/28/25 16:29 14 MLS/HR Sodium Bicarbonate 25 meq/Dextrose 1,000 ml @ 0 mls/hr Q0M IVP 08/14/25 00:30 08/14/25 00:15 DC Sodium Bicarbonate (Sodium Bicarb 50meq 50ml Vial) 50 meq AD PRN IV OTHER[SEE DOSING INSTRUCTIONS] 08/20/25 17:00 08/23/25 16:59 DC 08/21/25 01:19 50 MEQ Sodium Chloride 500 ml @ 500 mls/hr Q1H IV 08/20/25 00:33 08/20/25 03:16 DC 08/20/25 00:53 500 MLS/HR Sodium Chloride 500 ml @ 0 mls/hr AD IV 08/20/25 17:00 09/19/25 16:59 Sodium Chloride 1,000 ml @ 10 mls/hr ONCE IV 08/20/25 17:00 08/21/25 16:59 DC 08/20/25 22:31 10 MLS/HR Sodium Chloride (NS Flush 10ml) 10 ml Q8H PRN IVP IV LINE FLUSH 08/20/25 17:00 09/19/25 16:59 Thiamine HCl (Vitamin B-1) 300 mg DAILY IV 08/15/25 09:00 08/17/25 09:01 DC 08/17/25 07:46 300 MG Ticagrelor (BRILinta) 90 mg BID PO 08/14/25 09:00 08/14/25 21:19 DC 08/14/25 20:09 90 MG Tramadol HCl (UltRAM) 25 mg Q6H PRN PO MODERATE PAIN (4-6) 08/20/25 17:00 08/25/25 16:59 DC Tramadol HCl (UltRAM) 25 mg Q6H PRN PO MODERATE PAIN (4-6) 08/26/25 11:00 08/31/25 10:59 DC 08/27/25 03:12 25 MG Tramadol HCl (UltRAM) 50 mg Q6H PRN PO SEVERE PAIN (7-10) 08/20/25 17:00 08/25/25 16:59 DC 08/25/25 09:24 50 MG Tramadol HCl (UltRAM) 50 mg Q6H PRN PO SEVERE PAIN (7-10) 08/26/25 11:00 08/31/25 10:59 DC 08/29/25 05:39 50 MG Vancomycin HCl 250 ml @ 125 mls/hr Q12H IV 08/18/25 09:00 08/19/25 20:54 DC 08/19/25 09:39 125 MLS/HR Vancomycin HCl 250 ml @ 125 mls/hr Q12H IV 08/24/25 23:00 08/26/25 21:47 DC 08/26/25 11:47 125 MLS/HR Vancomycin HCl 250 ml @ 125 mls/hr Q8H IV 08/19/25 21:30 08/21/25 00:23 DC 08/20/25 22:26 125 MLS/HR Vancomycin HCl 250 ml @ 125 mls/hr Q8H IV 08/21/25 06:30 08/21/25 08:35 DC 08/21/25 08:15 125 MLS/HR Vancomycin HCl 250 ml @ 125 mls/hr Q8H IV 08/21/25 08:00 08/21/25 06:28 DC Vancomycin HCl 250 ml @ 125 mls/hr Q8H IV 08/21/25 16:30 08/24/25 16:54 DC 08/24/25 09:32 125 MLS/HR Vancomycin HCl (Vancomycin Protocol) 1 each AD IV 08/17/25 22:00 08/26/25 21:47 DC Wound Care/ Dressing Products (Venelex Ointment) 1 GM BID TP 09/01/25 09:00 09/30/25 20:59 09/03/25 21:58 1 GM Wound Care/ Dressing Products (Venelex Ointment) 1 gm BID TP 08/31/25 21:00 09/01/25 07:35 DC 08/31/25 21:26 1 GM DIAGNOSTICS / RADIOLOGY: [ ] ASSESSMENT: Cardiogenic shock with lactic acidosis, POA NSTEMI/ACS, POA Complete heart block, POA History of multivessel coronary artery disease, POA History of cocaine use disorder, POA Severe nonketotic hyperglycemia, POA History of to poorly controlled type 2 diabetes mellitus, POA Lactic acidosis, POA History of anemia, POA History of gastritis, POA History of hypertension, POA History of PTSD/anxiety, POA Obesity, POA Medical noncompliance, POA PLAN: patient is seen and examined at bedside, case discussed with the RN, no acute events overnight, the patient remains admitted to the ICU, awake, following commands, currently off Levophed, maintaining good blood pressure support. Currently on IV antibiotics. Remains on aspirin, atorvastatin, furosemide. Continue midodrine. Doppler of the lower extremities negative for DVT. Patient complained on my pain to the right leg, we will request arterial Doppler of the right leg, status post Impella removal. Scheduled for pacemaker placement by manager of medical Dr Lawson today. NEURO: MINIMIZE CENTRAL ACTING MEDICATIONS POSSIBLE. FALL PRECAUTIONS. WELL LIGHTED ROOM THROUGH THE DAY AND MINIMIZE INTERRUPTIONS THROUGH THE NIGHT TO PREVENT ACUTE DELIRIUM. PULMONARY: SUPPLEMENTAL 02 NEEDED BIPAP NECESSARY, FOR RESPIRATORY DISTRESS TITRATE FIO2 TO KEEP SPO2 > OR = 90% DUONEBS AND CPT NEEDED IS HOURLY WHILE AWAKE FOR PULMONARY HYGIENE PRN OUT OF BED TO CHAIR TOLERATED MAINTAIN ASPIRATION PRECAUTIONS AT ALL TIMES CARDIOVASCULAR: FOLLOW HEMODYNAMICS. VITAL SIGNS PER FACILITY PROTOCOL GI & NUTRITION: CONTINUE NUTRITIONAL SUPPORT ASPIRATIONS PRECAUTIONS PROKINETIC AGENTS AND LAXATIVES NEEDED KIDNEYS & ELECTROLYTES: STRICT MONITORING OF INTAKE AND OUTPUT DAILY WEIGHTS AVOID NEPHROTOXIC AGENTS MONITOR ELECTROLYTES AND REPLACE NEEDED GOAL URINE OUTPUT OF 30ML/HR OR 0.5ML/KG/HR MEDICATIONS TO BE DOSED ACCORDING TO RENAL FUNCTION. AVOID CONTRAST IF POSSIBLE ENDOCRINE: MAINTAIN BLOOD GLUCOSE BETWEEN 100-180 AT ALL TIMES. INSULIN SLIDING SCALE FOR BLOOD GLUCOSE MANAGEMENT HYPOGLYCEMIA AND HYPERGLYCEMIA PROTOCOL IN PLACE INFECTIOUS DISEASE: TREND TEMPERATURE, WBC AND PROCALCITONIN LEVEL FOLLOW CULTURES, DEESCALATE ANTIBIOTICS SOON POSSIBLE. PANCULTURE IF NEW ONSET FEVER HEMATOLOGY & COAGULATION: MONITOR H&H. KEEP HGB > 7 TRANSFUSE 1 UNIT OF PRBC FOR HGB < 7 TRANSFUSE 1 PACK OF PLATELETS OF PLATELETS < 20, 000 WATCH FOR ANY SIGNS AND SYMPTOMS OF BLEEDING SKIN: PRESSURE ULCER PREVENTION PER FACILITY PROTOCOL SPECIALTY MATTRESS NEEDED ORTHO/REHAB CONTINUE PT/OT PRN: MEDICATIONS TYLENOL 650 MG PO EVERY 4 HRS FOR FEVER ZOFRAN 4 MG IV EVERY 6 HRS FOR N/V HYDRALAZINE 5 MG IV EVERY 4 HRS SYSTOLIC PRESSURE > 160 BOWEL REGIMENT: LACTULOSE 20 GM PO BID PRN CONSTIPATION SUPPORTIVE MEASURES: CONTINUE GI AND DVT PROPHYLAXIS DISPOSITION: PENDING IMPROVEMENT IN CLINICAL CONDITION ALL QUESTIONS ANSWERED TIME SPENT: > 35 MIN GEE MARTNI MD Sep 04, 2025 11:31
--- NOTE | 2025-09-04 14:30 | NUR ---
PT erich completed. Patient noted with significant functional decline due to prolonged bedrest. Required max-total A to sit EOB and unable to maintain sitting EOB unsupported. Addendum: 09/04/25 at 1447 by WAQAS COATES PT Amended: Links added.
--- NOTE | 2025-09-04 15:24 | HMCIMG ---
EXAM: CR CHEST ??? 1 VIEW CLINICAL HISTORY: Status post ELECTRIC ORGAN CHECKER-P implantation. COMPARISON: CR Chest dated 02 September 2025. FINDINGS: Lungs: Previously seen mild interstitial and alveolar pulmonary edema has nearly completely resolved. The prior hazy opacity in the right mid and lower zones has also resolved. Pleural Spaces: Previously noted small bilateral pleural effusions show significant interval reduction, with resolution of the right-sided effusion and mild residual effusion on the left. No pneumothorax. Mediastinum / Cardiac Silhouette: Stable mild cardiomegaly with post-CABG median sternotomy wires and surgical clips. [place]???Guillaume catheter remains in appropriate position with the tip over the main pulmonary artery. Cardiac pacemaker (ELECTRIC ORGAN CHECKER-P) is now noted in situ with leads projecting over the right atrium and right ventricle???lead positions appear satisfactory. No interval mediastinal widening. Bones and Soft Tissues: No acute or aggressive osseous lesion identified. IMPRESSION: * [place]???Giullaume catheter in appropriate position. * Cardiac pacemaker (ELECTRIC ORGAN CHECKER-P) in situ with intact leads in satisfactory position???new finding compared to prior study. * Near complete resolution of previously seen interstitial and alveolar pulmonary edema. * Significant interval reduction of bilateral pleural effusions???right effusion resolved, mild residual left effusion. * Stable mild cardiomegaly with post-CABG changes. * No pneumothorax or new acute cardiopulmonary abnormality. * Previously seen right mid and lower zone opacity has resolved. Compared with 02 September 2025 ??? significant interval improvement in overall findings. /[place]
--- NOTE | 2025-09-04 16:05 | HMCIMG ---
EXAM: US Duplex Right Lower Extremity Arteries. CLINICAL HISTORY: Right leg pain after impella removal TECHNIQUE: Real-time ultrasound scan of the arteries of the Right lower extremity with 2-D jones scale, color Doppler flow and spectral waveform analysis. COMPARISON: None provided. FINDINGS: COMMON FEMORAL ARTERY: Right common femoral artery peak systolic velocity is 103 cm per second. No occlusion or significant stenosis. Normal. SUPERFICIAL FEMORAL ARTERY: Superficial femoral artery proximal peak systolic velocity is 71 cm per second, middle portion peak systolic velocity is 75 cm per second, and distal portion peak systolic velocity is 73 cm per second. No occlusion or significant stenosis. Normal. POPLITEAL ARTERY: Popliteal artery peak systolic velocity is 51 cm per second. Distal popliteal artery peak systolic velocity is 51 cm per second. No occlusion or significant stenosis. Normal. CALF ARTERIES: Posterior tibial artery peak systolic velocity is 28 cm per second. Anterior tibial artery distal peak systolic velocity is 34 cm per second. Dorsalis pedis artery demonstrates no flow. IMPRESSION: * Possible occlusion of the dorsalis pedis artery. * Several stable chronic and incidental findings are noted, as detailed in the body of the report. /[place]
--- NOTE | 2025-09-04 23:26 | NUR ---
PATIENT IS COMPLAINING OF MODERATE PAIN. CONTACTED Dr. Kramer regarding tylenol/hydrocodeine ordered for moderate and severe pain. As per provider dc tylenol/hydrocodeine pain order and utilize standard tramadol protocol for sp cabg patients. 25 mg tramadol po q6hr prn for moderate pain 4-6, and 50 mg tramadol po q6hr for severe pain 7-10.
[2025-09-05] VITALS (20 sets, daily range): BP systolic 102–149; BP diastolic 59–86; PULSE 76–94; RESP 9–20; TEMP 97.9–98.9; O2SAT 95–98
[2025-09-05 04:25] LABS: NUCLEATED RED BLOOD CELLS 0.0 % (0.0-0.19); PLATELET COUNT (AUTO) 346.0 K/uL (130-400); RED BLOOD CELL COUNT(AUTO) 3.21 MIL/uL (4.00-5.50); RED CELL DISTRIBUTION WIDTH 17.2 % (11.0-15.5); WHITE BLOOD COUNT (AUTO) 8.0 K/uL (4.8-10.8)
[2025-09-05 04:50] LABS: ASPARTATE AMINOTRANSFERASE 33.0 U/L (10-37); CREATININE 0.8 mg/dL (0.5-1.0); GLOMERULAR FILTR. RATE CALC 85.0 mL/min (>90); GLUCOSE,RANDOM 113.0 mg/dL (70-105); SODIUM SERUM 140.0 mmol/L (136-145); TOTAL PROTEIN, SERUM 7.5 g/dL (6.0-8.3); UREA NITROGEN, BLOOD 16.0 mg/dL (7-18)
--- NOTE | 2025-09-05 08:53 | PN ---
[facility] Cardiology Progress Note CARDIOLOGY PROGRESS NOTE SEPTEMBER 05, 2025 Problems: 1. Non ST-elevation myocardial infarction in the setting of cocaine abuse complicated by cardiogenic shock requiring Impella support 2. Severe multivessel CAD with acute occlusion of the right coronary artery unable to be revascularized percutaneously with preop ejection fraction of 50% by echo status post aortocoronary bypass graft surgery with a BRO graft to the LAD saphenous graft to the obtuse marginal artery and saphenous graft to the 2nd diagonal artery 3. Ventricular standstill after anesthesia induction for removal of Impella device August 29 2025 with alternating bundle branch blocks status post permanent pacemaker implant September 04, 2025 4. Remote history of CVA 5. Diabetes mellitus type 2 uncontrolled on admission 6. Tobacco dependence 7. Dyslipidemia 8. Noncompliance with medication and follow up 9. Postop Ejection fraction of 45-50% The patient underwent pacemaker implant yesterday with Dr. Lawson and tolerated the procedure well. This morning blood pressure is running 110-120 systolic heart rate is in the 70s the patient is afebrile. White count 8.0 hemoglobin 9.9 platelet count [id number]. Potassium 3.5 BUN 16 creatinine 0.8. The patient continues on aspirin atorvastatin famotidine IV furosemide insulin scale midodrine. Currently she is awake alert. She is off all pressors and blood pressure has been stable. I will add a low-dose of beta santos now that her pacemaker is in place. She has diuresed 3.7 L in the last 24 hours. We will switch over to oral diuretics today. I anticipate possible transfer next week for rehab. CHIRAG GATES MD Sep 05, 2025 08:53
--- NOTE | 2025-09-05 10:36 | PN ---
[facility] PROGRESS NOTE Date of Service: Sep 05, 2025 Time of Service: 10:32 SUBJECTIVE: This is a 60-year-old female with underlying history of obesity, coronary artery disease, poorly controlled type 2 diabetes mellitus, history of anemia, history of cocaine use, tobacco use disorder, history of CVA in 2008, who presented to the ER for further evaluation of severe substernal chest pain and shortness of breadth. Patient reports having history of cocaine use with last use of cocaine yesterday. She reports having severe substernal chest pain that started today in it has been associated with dizziness, and generalized malaise. Pain is 10/10 in severity. Patient denies any syncope or fall. She has been having lightheadedness with ambulation. She has not been able to follow up with Cardiology as outpatient. She has a previous history of abnormal CT coronary angiography when she was hospitalized in 04/2025 and she was treated medically. With regards to type 2 diabetes mellitus, she reports being on metformin as out patient. On presentation to the hospital, patient was noted to be hypotensive with blood pressure of 80/60 with heart rate of 40 with EKG showing complete heart block. [place] [address], hemoglobin 12.4, platelet count of 380629. BMP showed sodium of 133, potassium 4.8, chloride of 99, BUN of 21, creatinine 1.0, blood glucose of 403, [place] [id number]. Chest x-ray showed no acute infiltrates. Patient will be admitted for further management of cardiogenic shock, NSTEMI, complete heart block with history of poorly controlled type 2 diabetes mellitus. Patient will be emergently taken to the [facility] for cardiac catheterization/ PCI and tentative plan for MCS support. Patient will be admitted to intensive care unit and she remains critically ill. 08/14 patient remains critically ill requiring Impella and dopamine support. UDS has demonstrated benzos and cocaine 08/15 patient remains on Impella 08/16 patient appears to be resting comfortably in bed. She remains on Impella and dopamine support. She reports she would like to be bathed and wants her hair combed significant and she is feeling better 08/17 patient is on GI soft diet tolerating well. She remains on Impella support 08/18 patient is resting comfortably in bed. She remains on Impella. Tolerating oral intake. 08/19 hemoglobin dropped to 6.5 from 7.0-7.5 yesterday. I agree with transfusing 1 unit PRBC. Patient remains on Impella. Patient is resting comfortably in bed. 08/20 patient is resting comfortably in bed. She remains on Impella support pending recovery for CABG. 08/21 patient underwent CABG x3 yesterday, no complications reported patient remains on Impella the patient is on norepinephrine, amiodarone, dopamine, insulin drip 08/22 postop day 2. From CABG x3. Patient does awaken to verbal stimulation and states she has some chest pain and slight shortness for breath she feels the pain as incisional from her open heart procedure. He is on p.o. amiodarone and being weaned off norepinephrine. 08/23 postop day 3 from CABG x3. Patient is in bed visiting with her son at the bedside. She states she has no shortness for breath, she does have some incisional chest discomfort, no nausea or vomiting or diarrhea. She is off nore pinephrine drip and remains with the Impella assist. 08/24 patient is seen and examined at bedside, discussed with the RN, no acute events overnight, remains with the Impella support, postoperative day four from CABG x3. She is awake, following commands. Off vasopressors. Remains on heparin drip and sodium bicarbonate drip. Continue to follow critical Care and Cardiothoracic input and recommendation. 08/25 PATIENT IS SEEN AND EXAMINED AT BEDSIDE, DISCUSSED WITH THE RN, NO ACUTE EVENTS OVERNIGHT, PATIENT FOLLOWING COMMANDS, SHE REMAINS WITH THE IMPELLA SUPPORT, CHEST TUBE IN PLACE, POSTOPERATIVE DAY FIVE, STATUS POST CABG. CUR RENTLY OFF PRESSORS, ON HEPARIN DRIP. CONTINUE TO FOLLOW CRITICAL CARE AND CARDIOTHORACIC INPUT AND RECOMMENDATIONS. POSSIBLE REMOVAL OF IMPELLA SUPPORT TODAY. 08/26 patient is seen and examined at bedside, discussed with the RN, no acute events overnight, remains with the Impella support, postoperative day four from CABG x6. She is awake, following commands. Off vasopressors. Remains on heparin drip, continue with chest tube in place, continue to follow Cardiothoracic input and recommendation. 08/27 patient is seen and examined at bedside, case discussed with the RN, no acute events overnight, patient awake, following commands, still with the Impella support, status post CABG. No chest pain, shortness shortness for breath, no nausea, no vomiting. Continue with chest tube in place. BP 132/74, afebrile, saturating 99% 4 L nasal cannula. CBC with a hemoglobin 9.0, hematocrit 28.1, WBC 12.2, with a platelet count of 152. Sodium 140, potassium 4.0, BUN of 12, creatinine 0.6, initially 2.10. Cardiology input noted and appreciated, echocardiogram ordered, we will follow report. Continue to follow Cardiothoracic input and recommendation. 08/28 patient is seen and examined at bedside, case discussed with the RN, no acute events overnight, patient remains admitted to the ICU, the time of my visit, awake, following command, NPO, she is scheduled to be taken to the operating room today for removal of Impella support by cardio thoracic surgeons, we will continue to follow input and recommendation. Limited 2D echo performed yesterday shows left ventricular cavity size is normal, Impella device measuring 5.6 cm into LV. Left ventricular ejection fraction 55-60%, no pericardial effusion. 08/29 patient is seen and examined at bedside, case discussed with the RN, no acute events overnight, patient remains admitted to the ICU, the time of my visit, awake, following command, NPO, she is scheduled to be taken to the operating room today for removal of Impella support by cardio thoracic surgeons, we will continue to follow input and recommendation. Limited 2D echo performed yesterday shows left ventricular cavity size is normal, Impella device measuring 5.6 cm into LV. Left ventricular ejection fraction 55-60%, no pericardial effusion. 08/30 patient is seen and examined at bedside, discussed with the RN, no acute events overnight, status post interval removal of Impella and placement of pe ricardial patch in the operating room by Cardiothoracic surgeon, 08/29/2025, tolerated the procedure well. Patient will remain admitted to the ICU, we will continue to follow Cardiothoracic input and recommendation. Follow a.m. labs. Continue Lasix, follow intake and output, daily chest x-ray, continue heparin drip, follow critical care input and recommendation. Patient completed 10 days of Rocephin and a dose of vancomycin. Completed three days of Ancef. 08/31 patient is seen and examined at bedside, discussed with the RN, no acute events overnight, patient remains admitted to the ICU, now she is intubated, mechanical ventilation, however awake, following commands, on low-dose Precedex, also on Lasix drip, Levophed drip, patient is status post interval removal of Impella support device per Cardiothoracic surgeon. Tolerated well. Hemoglobin today 9.1, hematocrit 27.4, ABG pH 7.48, pCO2 40, PO2 95.8, bicarb 29.1, chest x-ray pending. Continue to follow Cardiothoracic input recommendation, for continue care input and recommendation terms of extubation, wean off Levophed. 09/01 patient is seen and examined at bedside, remains admitted to the ICU, status post interval extubation. She is alert and oriented, following commands, remains on Levophed and Lasix drip. Chest tube in place. BP 113/46, hemoglobin 9.9, hematocrit 30.3, WBC 12.0, platelet count of 218. Sodium 138, potassium 3.9, BUN of 13, creatinine 0.9. Discussed with the RN, pending EP evaluation for possible pacemaker. We will follow, continue to follow Cardiothoracic input and recommendation. Critical care input noted and appreciated. Follow a.m. labs. 09/02 patient is seen and examined at bedside, case discussed with the RN, remains admitted to the ICU, at the time of my visit she is alert oriented x3, remains on Lasix Levophed getting IV antibiotics. Oriented patient is status post coronary artery bypass grafting, status post right femoral artery repair. Cardiothoracic input noted and appreciated, input has been noted, Impella has be en successfully unit, patient will remain on low-dose Levophed, Lasix, IV antibiotics, continue chest tube in place. Patient supplemental oxygen via nasal cannula at 2 L to keep oxygen saturation greater than 92%. Continue to follow critical care input recommendation, follow a.m. labs. 09/03 patient is seen and examined at bedside, case discussed with the RN, no acute events overnight, the patient remains admitted to the ICU, awake, following commands, currently off Levophed, maintaining good blood pressure support. Currently on IV antibiotics. Hemoglobin 9.3, hematocrit 28.9, platelet count of 301. Patient is status post interval removal of chest tubes. Remains on aspirin, atorvastatin, furosemide. Continue midodrine. Doppler of the lower extremities negative for DVT. Patient complained on my pain to the right leg, we will request arterial Doppler of the right leg, status post Impella removal. Continue to follow EP input recommendation in terms of pacemaker. 09/04 patient is seen and examined at bedside, case discussed with the RN, no acute events overnight, the patient remains admitted to the ICU, awake, following commands, currently off Levophed, maintaining good blood pressure support. Currently on IV antibiotics. Remains on aspirin, atorvastatin, furosemide. Continue midodrine. Doppler of the lower extremities negative for DVT. Patient complained on my pain to the right leg, we will request arterial Doppler of the right leg, status post Impella removal. Scheduled for pacemaker placement by binder cutter Dr Lawson today. 09/05 Patient underwent pacemaker placement yesterday, no complications reported. Patient is off IV pressors. Vital signs are stable within normal limits REVIEW OF SYSTEMS CONSTITUTIONAL: generalized fatigue, malaise NEUROLOGICAL: Denies headache, amaurosis fugax, motor weakness, sensory deficit, vertigo/spinning sensation, gait abnormalities, or tremors. ENT: No hearing loss, otalgia, otorrhea, rhinitis, rhinorrhea, hoarseness, or sore throat. CARDIOVASCULAR: Mild incisional chest pain, no shortness breath PULMONARY: Denies any shortness of breath, cough, phlegm/sputum, hemoptysis, pleuritic chest pain. SLEEP: Denies morning headaches, daytime somnolence or napping. Denies difficulty falling asleep, staying asleep, waking from sleep. Denies knowledge of snoring. GASTROINTESTINAL: No nausea, Denies any type of dysphagia to either liquids or solids. Denies vomiting, pyrosis, early satiety, abdominal pain, diarrhea, constipation, or changes in stool consistency or caliber. Denies coffee-ground emesis, hematemesis, hematochezia, or melanotic stools. GENITOURINARY: Denies frequency, urgency, nocturia, hematuria or incontinence (Storage/Irritative symptoms.) Low urinary stream, straining to void, urinary intermittency or hesitancy, splitting of the voiding stream, terminal dribbling. ENDOCRINOLOGIC: Denies polyuria, polydipsia, polyphagia or heat/cold intolerances. HEMATOLOGIC: Denies thrombophilia/previous clots, or coagulopathy/bleeding disorders. ONCOLOGIC: Denies personal history of malignancy. DERMATOLOGIC: Denies rashes or pruritus. PSYCHIATRIC: Denies any suicidal or homicidal ideation. Denies hallucinations. PHYSICAL EXAM GENERAL APPEARANCE: Extubated, awake, following commands. NEUROLOGICAL: Cranial nerves II-XII grossly intact. Motor is 5/5 in bilateral upper and lower extremities proximal to distal. No sensory deficits. HEENT: Face is symmetric. Pupils are equal and reactive. Extraocular movements are intact. NECK: Supple. No JVD. No thyromegaly. No submental, submandibular, pre- /postauricular, occipital or supraclavicular lymphadenopathy. CHEST: Normal chest expansion. No Telemetry. LUNGS: minimal crackles noted of the bilateral lung bases CARDIOVASCULAR: Regular. S1 and S2 normal. No appreciable rubs, murmurs or gallops. ABDOMEN: Soft, nontender, and nondistended. There is no rebound, voluntary guarding, or rigidity. : Deferred. No Coombs. EXTREMITIES: trace edema noted of the bilateral lower extremities SKIN: No skin breakdown. Vital Signs (last 8hr) Date Time Temp Pulse Resp B/P (MAP) Pulse Ox O2 Delivery O2 Flow Rate FiO2 09/05/25 09:00 97.9 79 14 141/86 95 Room Air 09/05/25 08:00 83 13 143/80 94 Room Air 09/05/25 08:00 97 Room Air* 0 21 09/05/25 06:42 76 18 N/Cannula Low lpm 21 09/05/25 06:39 76 9 127/68 96 Nasal Cannula 1.0 09/05/25 05:39 78 10 110/67 95 Nasal Cannula 1.0 09/05/25 04:39 82 13 115/68 96 Nasal Cannula 1.0 09/05/25 04:21 97 Nasal Cannula* 1 24 Non-Rebreather+ 09/05/25 03:40 98.2 82 12 106/69 96 Nasal Cannula 1.0 09/05/25 03:27 81 11 102/59 96 Nasal Cannula 1.0 LABS: Laboratory: Test 09/05/25 04:55 09/05/25 04:03 09/04/25 03:44 Range/Units Whole Blood Glucose 141 H 70-110 MG/DL White Blood Count 8.0 4.8-10.8 K/uL Red Blood Count 3.21 L 4.00-5.50 MIL/uL Hemoglobin 9.9 L 12.0-16.0 g/dL Hematocrit 31.1 L 36-48 % Mean Corpuscular Volume 96.9 79-99 fL Mean Corpuscular Hemoglobin 30.8 27.0-33.0 pg Mean Corpuscular Hemoglobin Concent 31.8 L 32.0-36.0 g/dL Red Cell Distribution Width 17.2 H 11.0-15.5 % Platelet Count 346 130-400 K/uL Mean Platelet Volume 10.1 7.5-10.5 fL Nucleated Red Blood Cells 0.0 0.0-0.19 % Sodium Level 140 136-145 mmol/L Potassium Level 3.5 3.5-5.1 mmol/L Chloride Level 102 101-111 mmol/L Carbon Dioxide Level 32 21-32 mmol/L Blood Urea Nitrogen 16 7-18 mg/dL Creatinine 0.8 0.5-1.0 mg/dL Glomerular Filtration Rate Calc 85 >90 mL/min Random Glucose 113 H 70-105 mg/dL Total Calcium 8.5 8.5-10.1 mg/dL Magnesium Level 1.70 L 1.80-2.40 mg/dL Total Bilirubin 0.3 0.2-1.0 mg/dL Aspartate Amino Transf (AST/SGOT) 33 10-37 U/L Alanine Aminotransferase (ALT/SGPT) 23 12-78 U/L Alkaline Phosphatase 190 H 50-136 U/L Total Protein 7.5 6.0-8.3 g/dL Albumin 1.9 L 3.5-5.0 g/dL Prothrombin Time 11.2 9.6-11.6 SEC Prothromb Time International Ratio 1.06 0.85-1.15 Activated Partial Thromboplast Time 27.2 26.3-35.5 SEC Current Medications Medications (Trade) Dose Ordered Sig/Elmer Route PRN Reason Start Time Stop Time Status Last Admin Dose Admin Acetaminophen (TYLenol 325MG TAB) 650 mg Q4H PRN PO Temp >38.3C(AFTER EXTUBATION) 08/20/25 17:00 09/04/25 10:40 DC Acetaminophen (TYLenol 325MG TAB) 650 mg Q6H PRN PO MILD PAIN (1-3) 08/13/25 16:30 09/04/25 10:40 DC 09/04/25 03:33 650 MG Acetaminophen (TYLenol 500MG TAB) 500 mg Q6H PRN PO TEMP < 101.1 AND/OR HEADACHE 08/14/25 14:30 09/13/25 14:29 08/26/25 10:41 500 MG Acetaminophen (TYLenol 500MG TAB) 1,000 mg Q6H PRN PO MILD PAIN (1-3) 09/04/25 10:30 10/04/25 10:29 09/05/25 01:18 1,000 MG Acetaminophen (TYLenol 650MG SUPPOSITORY) 650 mg Q4H PRN RC Temp >38.3C WHILE INTUBATED 08/20/25 17:00 09/19/25 16:59 Acetaminophen (acetaMINOPHEN 1,000MG/100ML) 1,000 mg Q6H6 IVPB 08/21/25 12:00 09/04/25 10:41 DC 09/04/25 07:06 1,000 MG Acetaminophen/ Codeine Phosphate (TYLenol-coDEINE TAB) 1 tab Q4H PRN PO MODERATE PAIN (4-6) 09/04/25 11:00 09/04/25 23:33 DC 09/04/25 14:27 1 TAB Acetaminophen/ Codeine Phosphate (TYLenol-coDEINE TAB) 2 tab Q4H PRN PO SEVERE PAIN (7-10) 09/04/25 10:30 09/04/25 23:33 DC Albumin Human 50 ml @ 0 mls/hr BID IV 08/18/25 09:00 08/23/25 08:59 DC 08/22/25 20:56 100 MLS/HR Albumin Human 250 ml @ 0 mls/hr AD PRN IV IF HEMODYNAMICALLY UNSTABLE 08/20/25 17:00 08/20/25 22:46 DC 08/20/25 22:46 0 MLS/HR Aminocaproic Acid 68981 mg/Sodium Chloride 310 ml @ 25 mls/hr AD IV 08/20/25 17:00 08/21/25 05:23 DC Aminocaproic Acid 17283 mg/Sodium Chloride 480 ml @ 0 mls/hr AD PRN IV BLEEDING CONTROL 08/20/25 08:00 09/02/25 07:55 DC Aminocaproic Acid 80265 mg/Sodium Chloride 480 ml @ 0 mls/hr AD PRN IV BLEEDING CONTROL 08/20/25 09:00 08/20/25 09:03 DC Amiodarone HCl (pacERONE 200MG) 200 mg BID PO 08/22/25 09:00 08/29/25 21:00 DC 08/28/25 20:25 200 MG Amiodarone HCl 360 mg/Dextrose 207.2 ml @ 33.3 mls/hr AD IV 08/20/25 21:00 08/20/25 21:05 DC Amiodarone HCl 540 mg/Dextrose 310.8 ml @ 16.7 mls/hr [id number] IV 08/21/25 03:00 08/27/25 06:20 DC 08/21/25 20:12 16.7 MLS/HR Amiodarone HCL/ Dextrose 207.2 ml @ 33.3 mls/hr AD IV 08/20/25 21:30 08/21/25 10:49 DC 08/20/25 21:24 33.3 MLS/HR Aspirin (Aspirin 81mg Chew Tab) 81 mg DAILY PO 08/14/25 09:00 09/13/25 08:59 09/05/25 08:05 81 MG Atorvastatin Calcium (LIPItor 40MG) 40 mg HS PO 08/13/25 21:00 09/12/25 20:59 09/04/25 21:35 40 MG Benzocaine (Cepacol Sore Throat Lozenge) 1 each Q4H PRN MM SORE THROAT 08/26/25 11:30 09/25/25 11:29 09/04/25 00:35 1 EACH Bisacodyl (DulcoLAX) 10 mg DAILY RC 08/17/25 09:00 08/20/25 08:59 DC 08/18/25 07:58 10 MG Calcium Carbonate (Tums 500 Mg Chew Tab) 500 tab QID PRN PO HEARTBURN 08/19/25 12:00 08/20/25 16:32 DC 08/20/25 05:10 1 TAB Calcium Gluconate 1 gm/Sodium Chloride 60 ml @ 200 mls/hr AD PRN IV HYPOCALCEMIA 08/20/25 17:00 09/19/25 16:59 08/30/25 03:43 200 MLS/HR Cefazolin Sodium (Ancef) 2 gm ONCALL IVP 08/19/25 19:30 08/21/25 08:36 DC 08/20/25 16:30 2 GM Cefazolin Sodium (Ancef) 2 gm Q8H IVPB 08/20/25 22:00 08/21/25 14:01 DC 08/21/25 13:45 2 GM Ceftriaxone Sodium (Rocephin 2gm Inj) 2 gm Q24H IVPB 08/14/25 11:30 08/24/25 11:29 DC 08/23/25 12:16 2 GM Chlordiazepoxide HCl (LIBrium 25 MG CAP) 25 mg Q2H PRN PO ALCOHOL WITHDRAWAL PROTOCOL 08/14/25 14:30 08/20/25 16:32 DC 08/16/25 23:38 25 MG Chlordiazepoxide HCl (LIBrium 25 MG CAP) 50 mg Q1H PRN PO ALCOHOL WITHDRAWAL PROTOCOL 08/14/25 14:30 08/20/25 16:32 DC Dexmedetomidine/ Sodium Chloride (PRECEdex 400MCG/ 100ML-NS) 400 mcg PROTOCOL IV 08/20/25 20:30 09/19/25 20:29 08/31/25 06:18 400 MCG Dextrose (D50w) 50 ml AD PRN IV HYPOGLYCEMIA PROTOCOL 08/20/25 17:00 09/19/25 16:59 Dextrose (D50w) 50 ml AD PRN IV HYPOGLYCEMIA PROTOCOL 08/13/25 20:00 08/20/25 22:03 DC Diphenhydramine HCl (BENAdryl INJ) 25 mg ONCE PRN IV ITCHING 08/15/25 23:00 08/17/25 22:59 DC Docusate Sodium (COLace 100MG CAP) 100 mg BID PRN PO CONSTIPATION 08/14/25 11:00 09/13/25 10:59 09/04/25 11:31 100 MG Dopamine HCl/ Dextrose 250 ml @ 0 mls/hr PROTOCOL IV 08/13/25 16:00 09/12/25 15:59 08/16/25 16:41 3 MLS/HR Enoxaparin Sodium (Lovenox) 40 mg DAILY SQ 09/03/25 09:00 09/04/25 10:33 DC 09/03/25 08:22 40 MG Epinephrine HCl 10 mg/Sodium Chloride 250 ml @ 14.091 mls/ hr AD PRN IV POST-OP CARDIOVASCULAR ORDERS 08/20/25 17:00 08/21/25 10:49 DC Epinephrine HCl 10 mg/Sodium Chloride 250 ml @ 0 mls/hr AD PRN IV TITRATE 08/20/25 08:00 09/19/25 07:59 08/26/25 16:56 0 MLS/HR Epinephrine HCl 10 mg/Sodium Chloride 250 ml @ 0 mls/hr AD PRN IV TITRATE 08/20/25 09:00 08/20/25 09:03 DC Famotidine (Pepcid 20mg Vial) 20 mg BID IV 08/20/25 21:00 08/22/25 08:20 DC 08/21/25 20:17 20 MG Famotidine (Pepcid 20mg Tab) 20 mg BID PO 08/22/25 09:00 09/21/25 08:59 09/05/25 08:05 20 MG Folic Acid (FOLic ACID 1 MG TABLET) 1 mg DAILY PO 08/15/25 09:00 08/17/25 09:01 DC 08/17/25 07:46 1 MG Furosemide (LASix 20MG TAB) 20 mg BID@09,17 PO 09/05/25 09:00 10/05/25 08:59 09/05/25 09:50 20 MG Furosemide (LASix 20MG VIAL) 20 mg Q12H IV 08/21/25 11:30 08/22/25 14:17 DC 08/22/25 11:53 20 MG Furosemide (LASix 20MG VIAL) 20 mg Q12H IV 08/22/25 21:00 08/23/25 11:37 DC 08/23/25 09:50 20 MG Furosemide (LASix 20MG VIAL) 40 mg Q12H IV 08/22/25 21:00 08/22/25 14:32 DC Furosemide (LASix 40MG VIAL) 40 mg Q12H IV 08/23/25 11:30 08/30/25 11:08 DC 08/29/25 22:38 40 MG Furosemide (LASix 40MG VIAL) 40 mg Q12H IV 09/02/25 11:00 09/05/25 08:55 DC 09/04/25 21:35 40 MG Furosemide 100 mg/ Sodium Chloride 100 ml @ 0 mls/hr PROTOCOL IV 08/30/25 11:30 09/02/25 10:56 DC 09/02/25 09:12 10 MLS/HR Gabapentin (NEURontin 300 MG CAP) 300 mg TID PO 08/23/25 14:00 09/22/25 13:59 09/05/25 08:05 300 MG Glucagon (Glucagon 1mg Kit) 1 mg AD PRN IM HYPOGLYCEMIA PROTOCOL 08/20/25 17:00 09/19/25 16:59 Glucagon (Glucagon 1mg Kit) 1 mg AD PRN IM HYPOGLYCEMIA PROTOCOL 08/13/25 20:00 08/21/25 10:49 DC Heparin Sodium (Porcine) (HEParin 5,000 UNIT VIAL) *calculation based on ACTUAL B... AD PRN IV HEPARIN PROTOCOL 08/13/25 16:30 08/20/25 16:32 DC 08/17/25 04:46 3,175 UNIT Heparin Sodium/ Dextrose 250 ml @ 0 mls/hr PROTOCOL IV 08/21/25 11:30 09/03/25 06:32 DC 08/28/25 15:28 10.54 MLS/HR Heparin Sodium/ Dextrose 250 ml @ 0 mls/hr Q6H IV 08/13/25 16:30 08/20/25 16:32 DC 08/19/25 22:03 11.78 MLS/HR Insulin Glargine (LANtus 100 UNITS/ML 10 ML VIAL) 5 units BID@0730,2100 SQ 08/16/25 21:00 08/17/25 09:31 DC 08/16/25 21:21 5 UNITS Insulin Glargine (LANtus 100 UNITS/ML 10 ML VIAL) 10 units HS SQ 08/13/25 21:00 08/14/25 06:16 DC 08/13/25 20:21 10 UNITS Insulin Glargine (LANtus 100 UNITS/ML 10 ML VIAL) 15 units DAILY SQ 08/23/25 09:00 08/28/25 07:20 DC 08/27/25 08:35 15 UNITS Insulin Glargine (LANtus 100 UNITS/ML 10 ML VIAL) 20 units DAILY SQ 08/14/25 09:00 08/15/25 07:24 DC 08/14/25 08:01 20 UNITS Insulin Glargine (LANtus 100 UNITS/ML 10 ML VIAL) 20 units DAILY SQ 08/28/25 09:00 09/27/25 08:59 09/05/25 08:06 20 UNITS Insulin Glargine (LANtus 100 UNITS/ML 10 ML VIAL) 30 units DAILY SQ 08/15/25 09:00 08/16/25 07:19 DC 08/15/25 08:28 30 UNITS Insulin Glargine (LANtus 100 UNITS/ML 10 ML VIAL) 35 units DAILY SQ 08/16/25 09:00 08/19/25 07:35 DC 08/18/25 07:59 35 UNITS Insulin Glargine (LANtus 100 UNITS/ML 10 ML VIAL) 42 units DAILY SQ 08/19/25 09:00 08/20/25 06:22 DC 08/19/25 09:40 42 UNITS Insulin Glargine (LANtus 100 UNITS/ML 10 ML VIAL) 45 units DAILY SQ 08/20/25 09:00 08/20/25 16:32 DC Insulin Human Lispro (HumaLOG LISpro 100 UNIT/ML 3ML) INSULIN SLIDING SCAL... ACHS 08/16/25 21:00 08/17/25 09:31 DC Insulin Human Regular (humuLIN R 100 UNIT/ML 3ML) 3 unit TIDAC SQ 08/27/25 07:30 08/27/25 20:56 DC 08/27/25 16:47 3 UNIT Insulin Human Regular (humuLIN R 100 UNIT/ML 3ML) 5 unit TIDAC SQ 08/14/25 17:00 08/15/25 07:24 DC 08/15/25 07:03 5 UNIT Insulin Human Regular (humuLIN R 100 UNIT/ML 3ML) 6 unit TIDAC SQ 08/28/25 07:30 09/27/25 07:29 09/05/25 08:07 6 UNIT Insulin Human Regular (humuLIN R 100 UNIT/ML 3ML) 8 unit TIDAC SQ 08/15/25 07:30 08/15/25 22:46 DC 08/15/25 16:02 8 UNIT Insulin Human Regular (humuLIN R 100 UNIT/ML 3ML) 10 unit TIDAC SQ 08/16/25 07:30 08/17/25 21:12 DC 08/17/25 16:09 10 UNIT Insulin Human Regular (humuLIN R 100 UNIT/ML 3ML) 12 unit TIDAC SQ 08/18/25 07:30 08/18/25 20:19 DC 08/18/25 16:39 12 UNIT Insulin Human Regular (humuLIN R 100 UNIT/ML 3ML) 16 unit TIDAC SQ 08/19/25 07:30 08/20/25 06:22 DC 08/19/25 16:47 16 UNIT Insulin Human Regular (humuLIN R 100 UNIT/ML 3ML) 17 unit TIDAC SQ 08/20/25 07:30 08/20/25 16:32 DC Insulin Human Regular (humuLIN R 100 UNIT/ML 3ML) INSULIN SLIDING SCAL... ACHS SQ 08/17/25 16:30 08/20/25 16:32 DC 08/19/25 21:31 8 UNIT Insulin Human Regular (humuLIN R 100 UNIT/ML 3ML) INSULIN SLIDING SCAL... ACHS SQ 08/22/25 11:30 08/22/25 21:32 DC 08/22/25 20:58 3 UNIT Insulin Human Regular (humuLIN R 100 UNIT/ML 3ML) INSULIN SLIDING SCAL... ACHS SQ 08/23/25 07:30 09/22/25 07:29 09/04/25 21:36 6 UNIT Insulin Human Regular (humuLIN R 100 UNIT/ML 3ML) INSULIN SLIDING SCAL... ACHS SQ 08/13/25 16:30 08/16/25 20:46 DC 08/16/25 20:01 4 UNIT Insulin Human Regular 100 unit/ Sodium Chloride 100 ml @ 0 mls/hr AD IV 08/20/25 17:00 08/22/25 16:59 DC 08/21/25 15:00 5 MLS/HR Iron Sucrose (VenoFER) 200 mg DAILY IV 08/21/25 13:00 08/23/25 09:43 DC 08/22/25 11:53 200 MG Iron Sucrose (VenoFER) 200 mg DAILY IV 08/23/25 09:00 08/26/25 08:57 DC 08/25/25 09:25 200 MG Lidocaine (Lidocaine Patch 4%) 1 each DAILY TP 08/19/25 09:00 09/18/25 08:59 09/05/25 08:05 1 EACH Lidocaine HCl/ Dextrose 250 ml @ 0 mls/hr PROTOCOL IV 08/21/25 00:00 09/20/25 00:00 Lidocaine/ Prilocaine (Emla) 1 appl ONCE TP 08/31/25 13:30 09/01/25 07:33 DC 08/31/25 13:59 1 APPL Magnesium Sulfate 50 ml @ 12.5 mls/hr AD PRN IV MAG LEVEL LESS THAN 2.0 08/20/25 17:00 09/02/25 09:48 DC 09/02/25 09:19 12.5 MLS/HR Magnesium Sulfate 50 ml @ 0 mls/hr PROTOCOL IV 09/02/25 10:00 10/02/25 09:59 Magnesium Sulfate 50 ml @ 0 mls/hr PROTOCOL IV 08/13/25 16:30 08/21/25 10:49 DC 08/21/25 05:58 25 MLS/HR Metoprolol Succinate (TopROL XL) 12.5 mg DAILY PO 09/05/25 09:00 10/05/25 08:59 09/05/25 09:50 12.5 MG Midodrine (PROAMatine 5 MG TABLET) 5 mg Q6H6 PO 08/26/25 16:00 09/01/25 10:53 DC 09/01/25 06:57 5 MG Midodrine (PROAMatine 5 MG TABLET) 10 mg Q6H6 PO 09/01/25 12:00 09/02/25 16:25 DC 09/02/25 12:32 10 MG Midodrine (PROAMatine 5 MG TABLET) 15 mg Q6H6 PO 09/02/25 18:00 10/02/25 17:59 09/05/25 04:52 15 MG Morphine Sulfate (morPHINE 2MG SYG) 0.5 mg Q2H PRN IV MODERATE PAIN (4-6) 08/20/25 17:00 08/20/25 18:07 DC Morphine Sulfate (morPHINE 2MG SYG) 2 mg Q6H PRN IVP SEVERE PAIN (7-10) 08/19/25 18:00 08/20/25 16:32 DC 08/19/25 17:50 2 MG Morphine Sulfate (morPHINE 4MG SYG) 0.5 mg Q2H PRN IV MODERATE PAIN (4-6) 08/20/25 18:30 08/21/25 16:59 DC Morphine Sulfate (morPHINE 4MG SYG) 1 mg Q2H PRN IV SEVERE PAIN (7-10) 08/20/25 17:00 08/21/25 16:59 DC Morphine Sulfate (morPHINE 4MG SYG) 2 mg Q6H PRN IVP SEVERE PAIN (7-10) 08/14/25 09:30 08/19/25 12:29 DC 08/19/25 12:22 2 MG Multivitamins Therapeutic (Multivitamin Tablet) 1 tab DAILY PO 08/15/25 09:00 09/14/25 08:59 09/05/25 08:05 1 TAB Nitroglycerin/ Dextrose 0 ml @ 0 mls/hr AD IV 08/20/25 17:00 08/23/25 16:59 DC Nitroglycerin/ Dextrose 250 ml @ 0 mls/hr PROTOCOL IV 08/20/25 03:30 08/20/25 16:32 DC 08/20/25 03:12 1.5 MLS/HR Norepinephrine 250 ml @ 0 mls/hr PROTOCOL IV 08/13/25 15:30 08/20/25 08:31 DC Norepinephrine Bitartrate 250 ml @ 0 mls/hr AD PRN IV TITRATE 08/20/25 08:00 09/19/25 07:59 09/01/25 23:29 6.18 MLS/HR Norepinephrine Bitartrate 250 ml @ 0 mls/hr AD PRN IV TITRATE 08/20/25 09:00 08/20/25 09:03 DC Norepinephrine Bitartrate 8 mg/ Dextrose 250 ml @ 0 mls/hr AD PRN IV POST-OP CARDIOVASCULAR ORDERS 08/20/25 17:00 08/21/25 10:49 DC Ondansetron HCl (zoFRAN 4MG INJ) 4 mg Q4H PRN IV NAUSEA 08/14/25 14:30 08/20/25 16:32 DC 08/14/25 14:17 4 MG Ondansetron HCl (zoFRAN 4MG INJ) 4 mg Q6H PRN IV NAUSEA/VOMITING 08/20/25 17:00 09/19/25 16:59 08/29/25 12:47 4 MG Ondansetron HCl (zoFRAN 4MG INJ) 4 mg Q6H PRN IVP NAUSEA/VOMITING 08/13/25 16:30 08/14/25 14:08 DC Pantoprazole Sodium (PROTonix 40MG INJ) 40 mg Q12H IVP 08/17/25 16:30 08/20/25 16:32 DC 08/20/25 03:53 40 MG Pantoprazole Sodium (PROTonix 40MG INJ) 40 mg Q24H IVP 08/13/25 16:30 08/17/25 11:10 DC 08/16/25 16:07 40 MG Pharmacy Profile Note (Pharmacy Communication) 1 each PROTOCOL PRN MISC ETOH Withdrawal Score changes 08/14/25 14:30 08/14/25 14:08 DC Phenylephrine HCl 100 mg/Sodium Chloride 250 ml @ 0 mls/hr PROTOCOL IV 08/26/25 20:30 09/25/25 20:29 Piperacillin Sod/ Tazobactam Sod (Zosyn 3.375gm+NS 50ml) 3.375 gm Q8H IV 08/30/25 10:00 09/09/25 09:59 09/05/25 09:50 3.375 GM Polyethylene Glycol (MIRalax 3350 17 GM POWD.PACK) 17 gm DAILY PO 08/15/25 09:00 09/14/25 08:59 09/05/25 08:05 17 GM Potassium Phosphate 250 ml @ 42 mls/hr AD PRN IV LOW PHOS LEVEL 08/20/25 17:00 09/19/25 16:59 Potassium Chloride 100 ml @ 100 mls/hr AD PRN IV HYPOKALEMIA 08/20/25 17:00 09/19/25 16:59 09/05/25 08:06 100 MLS/HR Potassium Chloride 100 ml @ 100 mls/hr AD PRN IV POTASSIUM PROTOCOL 08/13/25 16:30 08/20/25 16:32 DC 08/16/25 16:07 100 MLS/HR Potassium Chloride (K-Dur/Klor-Con 20meq) 20 meq AD PRN PO POTASSIUM PROTOCOL 08/13/25 16:30 08/20/25 16:32 DC 08/15/25 08:23 20 MEQ Potassium Chloride (KCl 10% Elixir 20meq/15ml) 20 meq AD PRN PO POTASSIUM PROTOCOL 08/13/25 16:30 08/20/25 16:32 DC Promethazine HCl (Phenergan) 25 mg Q6H PRN PO NAUSEA 08/14/25 14:30 08/20/25 16:32 DC Propofol 100 ml @ 0 mls/hr AD PRN IV SEDATION 08/20/25 17:00 08/24/25 17:00 DC Sodium Bicarbonate 25 meq/Dextrose 1,000 ml @ 0 mls/hr Q0M IV 08/14/25 00:30 09/13/25 00:29 08/28/25 16:29 14 MLS/HR Sodium Bicarbonate 25 meq/Dextrose 1,000 ml @ 0 mls/hr Q0M IVP 08/14/25 00:30 08/14/25 00:15 DC Sodium Bicarbonate (Sodium Bicarb 50meq 50ml Vial) 50 meq AD PRN IV OTHER[SEE DOSING INSTRUCTIONS] 08/20/25 17:00 08/23/25 16:59 DC 08/21/25 01:19 50 MEQ Sodium Chloride 500 ml @ 500 mls/hr Q1H IV 08/20/25 00:33 08/20/25 03:16 DC 08/20/25 00:53 500 MLS/HR Sodium Chloride 500 ml @ 0 mls/hr AD IV 08/20/25 17:00 09/19/25 16:59 Sodium Chloride 1,000 ml @ 10 mls/hr ONCE IV 08/20/25 17:00 08/21/25 16:59 DC 08/20/25 22:31 10 MLS/HR Sodium Chloride (NS Flush 10ml) 10 ml Q8H PRN IVP IV LINE FLUSH 08/20/25 17:00 09/19/25 16:59 Thiamine HCl (Vitamin B-1) 300 mg DAILY IV 08/15/25 09:00 08/17/25 09:01 DC 08/17/25 07:46 300 MG Ticagrelor (BRILinta) 90 mg BID PO 08/14/25 09:00 08/14/25 21:19 DC 08/14/25 20:09 90 MG Tramadol HCl (UltRAM) 25 mg Q6H PRN PO MODERATE PAIN (4-6) 08/20/25 17:00 08/25/25 16:59 DC Tramadol HCl (UltRAM) 25 mg Q6H PRN PO MODERATE PAIN (4-6) 08/26/25 11:00 08/31/25 10:59 DC 08/27/25 03:12 25 MG Tramadol HCl (UltRAM) 25 mg Q6H PRN PO moderate pain 4-6 09/04/25 23:30 09/09/25 23:29 Tramadol HCl (UltRAM) 50 mg Q6H PRN PO SEVERE PAIN (7-10) 08/20/25 17:00 08/25/25 16:59 DC 08/25/25 09:24 50 MG Tramadol HCl (UltRAM) 50 mg Q6H PRN PO SEVERE PAIN (7-10) 08/26/25 11:00 08/31/25 10:59 DC 08/29/25 05:39 50 MG Tramadol HCl (UltRAM) 50 mg Q6H PRN PO SEVERE PAIN (7-10) 09/04/25 23:30 09/09/25 23:29 09/05/25 10:17 50 MG Vancomycin HCl 250 ml @ 125 mls/hr Q12H IV 08/18/25 09:00 08/19/25 20:54 DC 08/19/25 09:39 125 MLS/HR Vancomycin HCl 250 ml @ 125 mls/hr Q12H IV 08/24/25 23:00 08/26/25 21:47 DC 08/26/25 11:47 125 MLS/HR Vancomycin HCl 250 ml @ 125 mls/hr Q8H IV 08/19/25 21:30 08/21/25 00:23 DC 08/20/25 22:26 125 MLS/HR Vancomycin HCl 250 ml @ 125 mls/hr Q8H IV 08/21/25 06:30 08/21/25 08:35 DC 08/21/25 08:15 125 MLS/HR Vancomycin HCl 250 ml @ 125 mls/hr Q8H IV 08/21/25 08:00 08/21/25 06:28 DC Vancomycin HCl 250 ml @ 125 mls/hr Q8H IV 08/21/25 16:30 08/24/25 16:54 DC 08/24/25 09:32 125 MLS/HR Vancomycin HCl (Vancomycin Protocol) 1 each AD IV 08/17/25 22:00 08/26/25 21:47 DC Wound Care/ Dressing Products (Venelex Ointment) 1 GM BID TP 09/01/25 09:00 09/30/25 20:59 09/05/25 08:12 1 GM Wound Care/ Dressing Products (Venelex Ointment) 1 gm BID TP 08/31/25 21:00 09/01/25 07:35 DC 08/31/25 21:26 1 GM DIAGNOSTICS / RADIOLOGY: [ ] ASSESSMENT: Cardiogenic shock with lactic acidosis, POA NSTEMI/ACS, POA Complete heart block, POA History of multivessel coronary artery disease, POA History of cocaine use disorder, POA Severe nonketotic hyperglycemia, POA History of to poorly controlled type 2 diabetes mellitus, POA Lactic acidosis, POA History of anemia, POA History of gastritis, POA History of hypertension, POA History of PTSD/anxiety, POA Obesity, POA Medical noncompliance, POA PLAN: patient is seen and examined at bedside, case discussed with the RN, no acute events overnight, the patient remains admitted to the ICU, awake, following commands, currently off Levophed, maintaining good blood pressure support. Currently on IV antibiotics. Remains on aspirin, atorvastatin, furosemide. Continue midodrine. Doppler of the lower extremities negative for DVT. Patient complained on my pain to the right leg, we will request arterial Doppler of the right leg, status post Impella removal. Scheduled for pacemaker placement by binder cutter Dr Lawson today. NEURO: MINIMIZE CENTRAL ACTING MEDICATIONS POSSIBLE. FALL PRECAUTIONS. WELL LIGHTED ROOM THROUGH THE DAY AND MINIMIZE INTERRUPTIONS THROUGH THE NIGHT TO PREVENT ACUTE DELIRIUM. PULMONARY: SUPPLEMENTAL 02 NEEDED OUT OF BED TO CHAIR TOLERATED MAINTAIN ASPIRATION PRECAUTIONS AT ALL TIMES Follow up with Pulmonary/critical Care Medicine, appreciate assistance CARDIOVASCULAR: FOLLOW HEMODYNAMICS. VITAL SIGNS PER FACILITY PROTOCOL Follow up with Cardiology, appreciate assistance -transitioned to oral diuretics -start low dose beta santos Follow up with EP Cardiology appreciate assistance -follow up in clinic in 7-10 days GI & NUTRITION: CONTINUE NUTRITIONAL SUPPORT ASPIRATIONS PRECAUTIONS PROKINETIC AGENTS AND LAXATIVES NEEDED KIDNEYS & ELECTROLYTES: STRICT MONITORING OF INTAKE AND OUTPUT DAILY WEIGHTS AVOID NEPHROTOXIC AGENTS MONITOR ELECTROLYTES AND REPLACE NEEDED GOAL URINE OUTPUT OF 30ML/HR OR 0.5ML/KG/HR MEDICATIONS TO BE DOSED ACCORDING TO RENAL FUNCTION. AVOID CONTRAST IF POSSIBLE ENDOCRINE: MAINTAIN BLOOD GLUCOSE BETWEEN 100-180 AT ALL TIMES. INSULIN SLIDING SCALE FOR BLOOD GLUCOSE MANAGEMENT HYPOGLYCEMIA AND HYPERGLYCEMIA PROTOCOL IN PLACE INFECTIOUS DISEASE: TREND TEMPERATURE, WBC AND PROCALCITONIN LEVEL FOLLOW CULTURES, DEESCALATE ANTIBIOTICS SOON POSSIBLE. PANCULTURE IF NEW ONSET FEVER HEMATOLOGY & COAGULATION: MONITOR H&H. KEEP HGB > 7 TRANSFUSE 1 UNIT OF PRBC FOR HGB < 7 TRANSFUSE 1 PACK OF PLATELETS OF PLATELETS < 20, 000 WATCH FOR ANY SIGNS AND SYMPTOMS OF BLEEDING SKIN: PRESSURE ULCER PREVENTION PER FACILITY PROTOCOL SPECIALTY MATTRESS NEEDED ORTHO/REHAB CONTINUE PT/OT PRN: MEDICATIONS TYLENOL 650 MG PO EVERY 4 HRS FOR FEVER ZOFRAN 4 MG IV EVERY 6 HRS FOR N/V HYDRALAZINE 5 MG IV EVERY 4 HRS SYSTOLIC PRESSURE > 160 BOWEL REGIMENT: LACTULOSE 20 GM PO BID PRN CONSTIPATION SUPPORTIVE MEASURES: CONTINUE GI AND DVT PROPHYLAXIS DISPOSITION: PENDING IMPROVEMENT IN CLINICAL CONDITION ALL QUESTIONS ANSWERED TIME SPENT: > 35 MIN CHRISTIAN MACHUCA IV, MD Sep 05, 2025 10:36
--- NOTE | 2025-09-05 11:48 | PN ---
TIME: 10:00 a.m. SUBJECTIVE: The patient is a 60-year-old female status post coronary artery bypass grafting day #16, also status post right groin exploration for removal of Impella device with right femoral artery repair, recovering well. No major events overnight. PHYSICAL EXAMINATION: NEUROLOGIC: Alert and oriented. CARDIAC: S1, S2 paced rhythm. RESPIRATORY: Clear to auscultation bilaterally. SKIN: Incision is clean, dry and intact. ASSESSMENT AND PLAN: 1. Coronary artery disease, status post coronary artery bypass grafting, on aspirin, statin, beta-santos. 2. Bradycardia, status post pacemaker implantation yesterday, now recovering well. 3. Acute blood loss anemia, status post surgery. No evidence of active bleeding. We will continue to monitor. TID: [id number] RECEIPT: [id number]
--- NOTE | 2025-09-05 13:00 | NUR ---
RECEIVED PATIENT VIA BED FROM ICU ROOM 209. APPEARS COMFORTABLE UNLESS SHE NEEDS TO BE TURNED TO CHANGE LINEN THEN SHE WILL MOAN. TELEMETRY READING SR HR 87.
[2025-09-05] MEDS: MAGNESIUM 2GM PREMIX 50ML 50 ML IV SCH (14:36)
--- NOTE | 2025-09-05 16:25 | PN ---
[facility] PROGRESS NOTE Date Patient Seen: Sep 05, 2025 Time of Visit: 16:09 Supervising Physician: Ata Foster MD Consulting Physician: Hospitalist Outpatient Specialists: [ ] Inpatient Consults: Dr Chris ZARATE PROBLEM LIST: CABG x3 vessels 08/20 Suspected aspiration Pneumonia Acute on chronic Diastolic Heart Failure with EF of >50%, Improved Complete heart block, s/p PPM on 09/04/25 Bradycardia with episode of asystole requiring 20 seconds of CPR on 08/29/25 DM type 2, with hyperglycemia, HGB A1c of 10.7 Bacteremia + Staph Cohni urealyticum1/2 (contamination) Cocaine abuse Tobacco use, current smoker History of CVA INTERVAL HISTORY: No major overnight events. Patient has remained hemodynamically stable. She has not required pressor support. Per CV okay to downgrade to PCCU. Laboratory unremarkable similar to yesterday. Chest x-ray, with bilateral small pleural effusions. Continues with furosemide 20 mg p.o. b.i.d.. She is currently on room air in no apparent distress. Plan: Follow CT surgeon recs Continue midodrine PT to eval and treat Follow I&Os Continue furosemide 20 mg p.o. b.i.d. Monitor respiratory status closely, maintain O2 sats above 92% ABX: IV Zosyn for a total of 7 days Continue physical therapy Continue IS q.2 hours Chest x-ray am REVIEW OF SYSTEMS: 12 point ROS reviewed with patient. Pertinent positives mentioned above. Otherwise negative. PHYSICAL EXAM: GENERAL: alert, weak, awake oriented x 3 HEENT: moist mucosa NECK: Supple, no JVD, trachea midline LUNGS: clear breath sounds bilaterally. No wheezes HEART: Normal S1 and S2, without murmurs ABD: Abdomen soft, nontender. Bowel sounds present EXT: No clubbing cyanosis or edema, rt knee pain and swelling NEURO: Alert and oriented to person, follows commands Vital Signs (last 8hr) Date Time Temp Pulse Resp B/P (MAP) Pulse Ox O2 Delivery O2 Flow Rate FiO2 09/05/25 15:59 97.9 81 16 134/71 97 Room Air 09/05/25 12:00 98.1 86 12 132/72 96 Room Air 09/05/25 11:54 82 18 N/Cannula Low lpm 21 09/05/25 11:00 81 12 131/68 97 Room Air 09/05/25 10:00 88 12 123/72 97 Room Air 09/05/25 09:00 97.9 79 14 141/86 95 Room Air LABS: Hematology Labs: Test 09/05/25 04:03 Range/Units White Blood Count 8.0 4.8-10.8 K/uL Red Blood Count 3.21 L 4.00-5.50 MIL/uL Hemoglobin 9.9 L 12.0-16.0 g/dL Hematocrit 31.1 L 36-48 % Mean Corpuscular Volume 96.9 79-99 fL Mean Corpuscular Hemoglobin 30.8 27.0-33.0 pg Mean Corpuscular Hemoglobin Concent 31.8 L 32.0-36.0 g/dL Red Cell Distribution Width 17.2 H 11.0-15.5 % Platelet Count 346 130-400 K/uL Mean Platelet Volume 10.1 7.5-10.5 fL Nucleated Red Blood Cells 0.0 0.0-0.19 % Chemistry Labs: Test 09/05/25 15:39 09/05/25 04:03 Range/Units Whole Blood Glucose 170 H 70-110 MG/DL Sodium Level 140 136-145 mmol/L Potassium Level 3.5 3.5-5.1 mmol/L Chloride Level 102 101-111 mmol/L Carbon Dioxide Level 32 21-32 mmol/L Blood Urea Nitrogen 16 7-18 mg/dL Creatinine 0.8 0.5-1.0 mg/dL Glomerular Filtration Rate Calc 85 >90 mL/min Random Glucose 113 H 70-105 mg/dL Total Calcium 8.5 8.5-10.1 mg/dL Magnesium Level 1.70 L 1.80-2.40 mg/dL Total Bilirubin 0.3 0.2-1.0 mg/dL Aspartate Amino Transf (AST/SGOT) 33 10-37 U/L Alanine Aminotransferase (ALT/SGPT) 23 12-78 U/L Alkaline Phosphatase 190 H 50-136 U/L Total Protein 7.5 6.0-8.3 g/dL Albumin 1.9 L 3.5-5.0 g/dL Coagulation Labs: Test 09/04/25 03:44 Range/Units Prothrombin Time 11.2 9.6-11.6 SEC Prothromb Time International Ratio 1.06 0.85-1.15 Activated Partial Thromboplast Time 27.2 26.3-35.5 SEC DIAGNOSTICS / RADIOLOGY RESULTS: [ ] PLAN NEURO: Minimize central acting medications as possible. Maintain fall precautions, adequate lighting during the day PULMONARY: Supplemental 02 as needed. Maintain aspiration precautions at all times CARDIOVASCULAR: Follow hemodynamics. Vital signs per facility protocol GI & NUTRITION: Continue with nutritional support. Continue stool softeners and laxatives as needed. KIDNEYS & ELECTROLYTES: Strict monitoring of intake, output and overall fluid balance. Avoid nephrotoxic medications to the extent possible. Medications to be dosed according to renal function. Monitor electrolytes and replace as needed ENDOCRINE: Maintain blood glucose between 100-180 at all times. Hypoglycemia protocol in place INFECTIOUS DISEASE: Trend temperature, WBC and procalcitonin level Follow cultures, deescalate antibiotics as soon as possible. Panculture if new onset fever ONCOLOGY/HEMATOLOGY/COAGULATION: Monitor for s/s of bleeding Monitor hemoglobin, coagulation studies as needed SKIN: Pressure ulcer prevention per facility protocol Specialty mattress ORTHO/REHAB: Continue PT/OT Prophylaxis: Continue GI and DVT prophylaxis Code Status: Full Resuscitation Disposition: TBD ATTESTATION BY PHYSICIAN I have evaluated the patient chart, medical records, and spoke with appropriate staff. I reviewed the documentation, medical decision making, and treatment plan as noted by the mid-level provider above. I agree with the findings and plan of care. Ata Foster MD, [facility] Sep 05, 2025 16:25
--- NOTE | 2025-09-05 17:30 | NUR ---
BLADDER TRAINING INITIATED.
[2025-09-06] VITALS (9 sets, daily range): BP systolic 99–126; BP diastolic 57–69; PULSE 80–90; RESP 18–20; TEMP 97.9–98.7; O2SAT 96–98
[2025-09-06 04:29] LABS: NUCLEATED RED BLOOD CELLS 0.0 % (0.0-0.19); PLATELET COUNT (AUTO) 332.0 K/uL (130-400); RED BLOOD CELL COUNT(AUTO) 3.17 MIL/uL (4.00-5.50); RED CELL DISTRIBUTION WIDTH 17.2 % (11.0-15.5); WHITE BLOOD COUNT (AUTO) 7.4 K/uL (4.8-10.8)
[2025-09-06 04:42] LABS: CREATININE 0.7 mg/dL (0.5-1.0); GLOMERULAR FILTR. RATE CALC 100.0 mL/min (>90); GLUCOSE,RANDOM 171.0 mg/dL (70-105); SODIUM SERUM 134.0 mmol/L (136-145); UREA NITROGEN, BLOOD 14.0 mg/dL (7-18)
--- NOTE | 2025-09-06 07:21 | HMCIMG ---
EXAM: CR Chest, 1 View. CLINICAL HISTORY: Evaluate for pneumothorax; status post FEATHER BONER-P and CABG. TECHNIQUE: Single portable anteroposterior chest radiograph. COMPARISON: CR ??? CHEST 1VW ??? 09/04/2025. Compared with 09/04/2025, there is interval worsening of edema and pleural effusions. FINDINGS: LUNGS: Increased interstitial and perihilar alveolar opacities consistent with pulmonary edema. Bibasilar atelectasis. PLEURAL SPACES: Moderate bilateral pleural effusions, left greater than right. No pneumothorax detected. MEDIASTINUM / HEART / DEVICES: Mild cardiomegaly. Post-CABG median sternotomy changes. Cardiac pacemaker in situ with leads in expected positions. Previously reported [place]???Guillaume catheter no longer seen. BONES: No acute osseous abnormality. IMPRESSION: * Worsening pulmonary interstitial and alveolar edema consistent with decompensated congestive heart failure. * Moderate bilateral pleural effusions, left greater than right, with associated basilar atelectasis. * Stable mild cardiomegaly and post-CABG changes. * Cardiac pacemaker in satisfactory position. * Compared with 09/04/2025, there is progression of pulmonary edema and pleural effusions; no pneumothorax. /[place]
--- NOTE | 2025-09-06 09:00 | PN ---
[facility] Cardiology Progress Note CARDIOLOGY PROGRESS NOTE SEPTEMBER 06, 2025 Problems: 1. Non ST-elevation myocardial infarction in the setting of cocaine abuse complicated by cardiogenic shock requiring Impella support 2. Severe multivessel CAD with acute occlusion of the right coronary artery unable to be revascularized percutaneously with preop ejection fraction of 50% by echo status post aortocoronary bypass graft surgery with a BRO graft to the LAD saphenous graft to the obtuse marginal artery and saphenous graft to the 2nd diagonal artery with a clipping of the left atrial appendage 3. Ventricular standstill after anesthesia induction for removal of Impella device August 29 2025 with alternating bundle branch blocks status post biventricular permanent pacemaker implant September 04, 2025 4. Remote history of CVA 5. Diabetes mellitus type 2 uncontrolled on admission 6. Tobacco dependence 7. Dyslipidemia 8. Noncompliance with medication and follow up 9. Postop Ejection fraction of 45-50% 10. Angioedema with lisinopril in the past The patient has been transferred out to telemetry. Blood pressure is running 110-120 systolic. Heart rate is in the 80s. The patient is afebrile. White count 7.4 hemoglobin 9.6 platelet count [id number]. Potassium 3.9 BUN 14 creatinine 0.7. The patient continues on aspirin atorvastatin famotidine furosemide insulin scale metoprolol succinate antibiotics and tramadol PRN. Chest x-ray shows pacing leads to be in good position. Post sternotomy changes are noted. The right lung field is clear. There was still some blunting of the left costophrenic angle. The patient is resting comfortably today. She has mild incisional pain but overall is feeling much better. She so far has been unable to bear weight and we will probably require physical therapy before going home. CHIRAG GATES MD Sep 06, 2025 09:00
--- NOTE | 2025-09-06 09:44 | PN ---
[facility] PROGRESS NOTE Date of Service: Sep 06, 2025 Time of Service: 09:41 SUBJECTIVE: This is a 60-year-old female with underlying history of obesity, coronary artery disease, poorly controlled type 2 diabetes mellitus, history of anemia, history of cocaine use, tobacco use disorder, history of CVA in 2008, who presented to the ER for further evaluation of severe substernal chest pain and shortness of breadth. Patient reports having history of cocaine use with last use of cocaine yesterday. She reports having severe substernal chest pain that started today in it has been associated with dizziness, and generalized malaise. Pain is 10/10 in severity. Patient denies any syncope or fall. She has been having lightheadedness with ambulation. She has not been able to follow up with Cardiology as outpatient. She has a previous history of abnormal CT coronary angiography when she was hospitalized in 04/2025 and she was treated medically. With regards to type 2 diabetes mellitus, she reports being on metformin as out patient. On presentation to the hospital, patient was noted to be hypotensive with blood pressure of 80/60 with heart rate of 40 with EKG showing complete heart block. [place] [address], hemoglobin 12.4, platelet count of 471914. BMP showed sodium of 133, potassium 4.8, chloride of 99, BUN of 21, creatinine 1.0, blood glucose of 403, [place] [address]. Chest x-ray showed no acute infiltrates. Patient will be admitted for further management of cardiogenic shock, NSTEMI, complete heart block with history of poorly controlled type 2 diabetes mellitus. Patient will be emergently taken to the [facility] for cardiac catheterization/ PCI and tentative plan for MCS support. Patient will be admitted to intensive care unit and she remains critically ill. 08/14 patient remains critically ill requiring Impella and dopamine support. UDS has demonstrated benzos and cocaine 08/15 patient remains on Impella 08/16 patient appears to be resting comfortably in bed. She remains on Impella and dopamine support. She reports she would like to be bathed and wants her hair combed significant and she is feeling better 08/17 patient is on GI soft diet tolerating well. She remains on Impella support 08/18 patient is resting comfortably in bed. She remains on Impella. Tolerating oral intake. 08/19 hemoglobin dropped to 6.5 from 7.0-7.5 yesterday. I agree with transfusing 1 unit PRBC. Patient remains on Impella. Patient is resting comfortably in bed. 08/20 patient is resting comfortably in bed. She remains on Impella support pending recovery for CABG. 08/21 patient underwent CABG x3 yesterday, no complications reported patient remains on Impella the patient is on norepinephrine, amiodarone, dopamine, insulin drip 08/22 postop day 2. From CABG x3. Patient does awaken to verbal stimulation and states she has some chest pain and slight shortness for breath she feels the pain as incisional from her open heart procedure. He is on p.o. amiodarone and being weaned off norepinephrine. 08/23 postop day 3 from CABG x3. Patient is in bed visiting with her son at the bedside. She states she has no shortness for breath, she does have some incisional chest discomfort, no nausea or vomiting or diarrhea. She is off nore pinephrine drip and remains with the Impella assist. 08/24 patient is seen and examined at bedside, discussed with the RN, no acute events overnight, remains with the Impella support, postoperative day four from CABG x3. She is awake, following commands. Off vasopressors. Remains on heparin drip and sodium bicarbonate drip. Continue to follow critical Care and Cardiothoracic input and recommendation. 08/25 PATIENT IS SEEN AND EXAMINED AT BEDSIDE, DISCUSSED WITH THE RN, NO ACUTE EVENTS OVERNIGHT, PATIENT FOLLOWING COMMANDS, SHE REMAINS WITH THE IMPELLA SUPPORT, CHEST TUBE IN PLACE, POSTOPERATIVE DAY FIVE, STATUS POST CABG. CUR RENTLY OFF PRESSORS, ON HEPARIN DRIP. CONTINUE TO FOLLOW CRITICAL CARE AND CARDIOTHORACIC INPUT AND RECOMMENDATIONS. POSSIBLE REMOVAL OF IMPELLA SUPPORT TODAY. 08/26 patient is seen and examined at bedside, discussed with the RN, no acute events overnight, remains with the Impella support, postoperative day four from CABG x6. She is awake, following commands. Off vasopressors. Remains on heparin drip, continue with chest tube in place, continue to follow Cardiothoracic input and recommendation. 08/27 patient is seen and examined at bedside, case discussed with the RN, no acute events overnight, patient awake, following commands, still with the Impella support, status post CABG. No chest pain, shortness shortness for breath, no nausea, no vomiting. Continue with chest tube in place. BP 132/74, afebrile, saturating 99% 4 L nasal cannula. CBC with a hemoglobin 9.0, hematocrit 28.1, WBC 12.2, with a platelet count of 152. Sodium 140, potassium 4.0, BUN of 12, creatinine 0.6, initially 2.10. Cardiology input noted and appreciated, echocardiogram ordered, we will follow report. Continue to follow Cardiothoracic input and recommendation. 08/28 patient is seen and examined at bedside, case discussed with the RN, no acute events overnight, patient remains admitted to the ICU, the time of my visit, awake, following command, NPO, she is scheduled to be taken to the operating room today for removal of Impella support by cardio thoracic surgeons, we will continue to follow input and recommendation. Limited 2D echo performed yesterday shows left ventricular cavity size is normal, Impella device measuring 5.6 cm into LV. Left ventricular ejection fraction 55-60%, no pericardial effusion. 08/29 patient is seen and examined at bedside, case discussed with the RN, no acute events overnight, patient remains admitted to the ICU, the time of my visit, awake, following command, NPO, she is scheduled to be taken to the operating room today for removal of Impella support by cardio thoracic surgeons, we will continue to follow input and recommendation. Limited 2D echo performed yesterday shows left ventricular cavity size is normal, Impella device measuring 5.6 cm into LV. Left ventricular ejection fraction 55-60%, no pericardial effusion. 08/30 patient is seen and examined at bedside, discussed with the RN, no acute events overnight, status post interval removal of Impella and placement of pe ricardial patch in the operating room by Cardiothoracic surgeon, 08/29/2025, tolerated the procedure well. Patient will remain admitted to the ICU, we will continue to follow Cardiothoracic input and recommendation. Follow a.m. labs. Continue Lasix, follow intake and output, daily chest x-ray, continue heparin drip, follow critical care input and recommendation. Patient completed 10 days of Rocephin and a dose of vancomycin. Completed three days of Ancef. 08/31 patient is seen and examined at bedside, discussed with the RN, no acute events overnight, patient remains admitted to the ICU, now she is intubated, mechanical ventilation, however awake, following commands, on low-dose Precedex, also on Lasix drip, Levophed drip, patient is status post interval removal of Impella support device per Cardiothoracic surgeon. Tolerated well. Hemoglobin today 9.1, hematocrit 27.4, ABG pH 7.48, pCO2 40, PO2 95.8, bicarb 29.1, chest x-ray pending. Continue to follow Cardiothoracic input recommendation, for continue care input and recommendation terms of extubation, wean off Levophed. 09/01 patient is seen and examined at bedside, remains admitted to the ICU, status post interval extubation. She is alert and oriented, following commands, remains on Levophed and Lasix drip. Chest tube in place. BP 113/46, hemoglobin 9.9, hematocrit 30.3, WBC 12.0, platelet count of 218. Sodium 138, potassium 3.9, BUN of 13, creatinine 0.9. Discussed with the RN, pending EP evaluation for possible pacemaker. We will follow, continue to follow Cardiothoracic input and recommendation. Critical care input noted and appreciated. Follow a.m. labs. 09/02 patient is seen and examined at bedside, case discussed with the RN, remains admitted to the ICU, at the time of my visit she is alert oriented x3, remains on Lasix Levophed getting IV antibiotics. Oriented patient is status post coronary artery bypass grafting, status post right femoral artery repair. Cardiothoracic input noted and appreciated, input has been noted, Impella has be en successfully unit, patient will remain on low-dose Levophed, Lasix, IV antibiotics, continue chest tube in place. Patient supplemental oxygen via nasal cannula at 2 L to keep oxygen saturation greater than 92%. Continue to follow critical care input recommendation, follow a.m. labs. 09/03 patient is seen and examined at bedside, case discussed with the RN, no acute events overnight, the patient remains admitted to the ICU, awake, following commands, currently off Levophed, maintaining good blood pressure support. Currently on IV antibiotics. Hemoglobin 9.3, hematocrit 28.9, platelet count of 301. Patient is status post interval removal of chest tubes. Remains on aspirin, atorvastatin, furosemide. Continue midodrine. Doppler of the lower extremities negative for DVT. Patient complained on my pain to the right leg, we will request arterial Doppler of the right leg, status post Impella removal. Continue to follow EP input recommendation in terms of pacemaker. 09/04 patient is seen and examined at bedside, case discussed with the RN, no acute events overnight, the patient remains admitted to the ICU, awake, following commands, currently off Levophed, maintaining good blood pressure support. Currently on IV antibiotics. Remains on aspirin, atorvastatin, furosemide. Continue midodrine. Doppler of the lower extremities negative for DVT. Patient complained on my pain to the right leg, we will request arterial Doppler of the right leg, status post Impella removal. Scheduled for pacemaker placement by safety administrator Dr Lawson today. 09/05 Patient underwent pacemaker placement yesterday, no complications reported. Patient is off IV pressors. Vital signs are stable within normal limits 09/06 patient remains afebrile, vital signs within normal limit sugars are almost at goal. We will increase Lantus to 24 unit hs REVIEW OF SYSTEMS CONSTITUTIONAL: generalized fatigue, malaise NEUROLOGICAL: Denies headache, amaurosis fugax, motor weakness, sensory deficit, vertigo/spinning sensation, gait abnormalities, or tremors. ENT: No hearing loss, otalgia, otorrhea, rhinitis, rhinorrhea, hoarseness, or sore throat. CARDIOVASCULAR: Mild incisional chest pain, no shortness breath PULMONARY: Denies any shortness of breath, cough, phlegm/sputum, hemoptysis, pleuritic chest pain. SLEEP: Denies morning headaches, daytime somnolence or napping. Denies difficulty falling asleep, staying asleep, waking from sleep. Denies knowledge of snoring. GASTROINTESTINAL: No nausea, Denies any type of dysphagia to either liquids or solids. Denies vomiting, pyrosis, early satiety, abdominal pain, diarrhea, constipation, or changes in stool consistency or caliber. Denies coffee-ground emesis, hematemesis, hematochezia, or melanotic stools. GENITOURINARY: Denies frequency, urgency, nocturia, hematuria or incontinence (Storage/Irritative symptoms.) Low urinary stream, straining to void, urinary intermittency or hesitancy, splitting of the voiding stream, terminal dribbling. ENDOCRINOLOGIC: Denies polyuria, polydipsia, polyphagia or heat/cold intolerances. HEMATOLOGIC: Denies thrombophilia/previous clots, or coagulopathy/bleeding disorders. ONCOLOGIC: Denies personal history of malignancy. DERMATOLOGIC: Denies rashes or pruritus. PSYCHIATRIC: Denies any suicidal or homicidal ideation. Denies hallucinations. PHYSICAL EXAM GENERAL APPEARANCE: Extubated, awake, following commands. NEUROLOGICAL: Cranial nerves II-XII grossly intact. Motor is 5/5 in bilateral upper and lower extremities proximal to distal. No sensory deficits. HEENT: Face is symmetric. Pupils are equal and reactive. Extraocular movements are intact. NECK: Supple. No JVD. No thyromegaly. No submental, submandibular, pre- /postauricular, occipital or supraclavicular lymphadenopathy. CHEST: Normal chest expansion. No Telemetry. LUNGS: minimal crackles noted of the bilateral lung bases CARDIOVASCULAR: Regular. S1 and S2 normal. No appreciable rubs, murmurs or gallops. ABDOMEN: Soft, nontender, and nondistended. There is no rebound, voluntary guarding, or rigidity. : Deferred. No Coombs. EXTREMITIES: trace edema noted of the bilateral lower extremities SKIN: No skin breakdown. Vital Signs (last 8hr) Date Time Temp Pulse Resp B/P (MAP) Pulse Ox O2 Delivery O2 Flow Rate FiO2 09/06/25 08:00 98 Room Air* 0 21 09/06/25 07:53 97.9 80 18 113/67 96 Room Air 09/06/25 03:40 98.2 80 20 126/69 97 Room Air LABS: Laboratory: Test 09/06/25 05:12 09/06/25 03:42 09/05/25 04:03 Range/Units Whole Blood Glucose 178 H 70-110 MG/DL White Blood Count 7.4 4.8-10.8 K/uL Red Blood Count 3.17 L 4.00-5.50 MIL/uL Hemoglobin 9.6 L 12.0-16.0 g/dL Hematocrit 30.3 L 36-48 % Mean Corpuscular Volume 95.6 79-99 fL Mean Corpuscular Hemoglobin 30.3 27.0-33.0 pg Mean Corpuscular Hemoglobin Concent 31.7 L 32.0-36.0 g/dL Red Cell Distribution Width 17.2 H 11.0-15.5 % Platelet Count 332 130-400 K/uL Mean Platelet Volume 10.2 7.5-10.5 fL Nucleated Red Blood Cells 0.0 0.0-0.19 % Sodium Level 134 L 136-145 mmol/L Potassium Level 3.9 3.5-5.1 mmol/L Chloride Level 100 L 101-111 mmol/L Carbon Dioxide Level 31 21-32 mmol/L Blood Urea Nitrogen 14 7-18 mg/dL Creatinine 0.7 0.5-1.0 mg/dL Glomerular Filtration Rate Calc 100 >90 mL/min Random Glucose 171 #H 70-105 mg/dL Total Calcium 8.3 L 8.5-10.1 mg/dL Magnesium Level 1.70 L 1.80-2.40 mg/dL Total Bilirubin 0.3 0.2-1.0 mg/dL Aspartate Amino Transf (AST/SGOT) 33 10-37 U/L Alanine Aminotransferase (ALT/SGPT) 23 12-78 U/L Alkaline Phosphatase 190 H 50-136 U/L Total Protein 7.5 6.0-8.3 g/dL Albumin 1.9 L 3.5-5.0 g/dL Current Medications Medications (Trade) Dose Ordered Sig/Elmer Route PRN Reason Start Time Stop Time Status Last Admin Dose Admin Acetaminophen (TYLenol 325MG TAB) 650 mg Q4H PRN PO Temp >38.3C(AFTER EXTUBATION) 08/20/25 17:00 09/04/25 10:40 DC Acetaminophen (TYLenol 325MG TAB) 650 mg Q6H PRN PO MILD PAIN (1-3) 08/13/25 16:30 09/04/25 10:40 DC 09/04/25 03:33 650 MG Acetaminophen (TYLenol 500MG TAB) 500 mg Q6H PRN PO TEMP < 101.1 AND/OR HEADACHE 08/14/25 14:30 09/13/25 14:29 08/26/25 10:41 500 MG Acetaminophen (TYLenol 500MG TAB) 1,000 mg Q6H PRN PO MILD PAIN (1-3) 09/04/25 10:30 10/04/25 10:29 09/06/25 01:20 1,000 MG Acetaminophen (TYLenol 650MG SUPPOSITORY) 650 mg Q4H PRN RC Temp >38.3C WHILE INTUBATED 08/20/25 17:00 09/19/25 16:59 Acetaminophen (acetaMINOPHEN 1,000MG/100ML) 1,000 mg Q6H6 IVPB 08/21/25 12:00 09/04/25 10:41 DC 09/04/25 07:06 1,000 MG Acetaminophen/ Codeine Phosphate (TYLenol-coDEINE TAB) 1 tab Q4H PRN PO MODERATE PAIN (4-6) 09/04/25 11:00 09/04/25 23:33 DC 09/04/25 14:27 1 TAB Acetaminophen/ Codeine Phosphate (TYLenol-coDEINE TAB) 2 tab Q4H PRN PO SEVERE PAIN (7-10) 09/04/25 10:30 09/04/25 23:33 DC Albumin Human 50 ml @ 0 mls/hr BID IV 08/18/25 09:00 08/23/25 08:59 DC 08/22/25 20:56 100 MLS/HR Albumin Human 250 ml @ 0 mls/hr AD PRN IV IF HEMODYNAMICALLY UNSTABLE 08/20/25 17:00 08/20/25 22:46 DC 08/20/25 22:46 0 MLS/HR Aminocaproic Acid 45090 mg/Sodium Chloride 310 ml @ 25 mls/hr AD IV 08/20/25 17:00 08/21/25 05:23 DC Aminocaproic Acid 11223 mg/Sodium Chloride 480 ml @ 0 mls/hr AD PRN IV BLEEDING CONTROL 08/20/25 08:00 09/02/25 07:55 DC Aminocaproic Acid 27705 mg/Sodium Chloride 480 ml @ 0 mls/hr AD PRN IV BLEEDING CONTROL 08/20/25 09:00 08/20/25 09:03 DC Amiodarone HCl (pacERONE 200MG) 200 mg BID PO 08/22/25 09:00 08/29/25 21:00 DC 08/28/25 20:25 200 MG Amiodarone HCl 360 mg/Dextrose 207.2 ml @ 33.3 mls/hr AD IV 08/20/25 21:00 08/20/25 21:05 DC Amiodarone HCl 540 mg/Dextrose 310.8 ml @ 16.7 mls/hr [id number] IV 08/21/25 03:00 08/27/25 06:20 DC 08/21/25 20:12 16.7 MLS/HR Amiodarone HCL/ Dextrose 207.2 ml @ 33.3 mls/hr AD IV 08/20/25 21:30 08/21/25 10:49 DC 08/20/25 21:24 33.3 MLS/HR Aspirin (Aspirin 81mg Chew Tab) 81 mg DAILY PO 08/14/25 09:00 09/13/25 08:59 09/05/25 08:05 81 MG Atorvastatin Calcium (LIPItor 40MG) 40 mg HS PO 08/13/25 21:00 09/12/25 20:59 09/05/25 21:29 40 MG Benzocaine (Cepacol Sore Throat Lozenge) 1 each Q4H PRN MM SORE THROAT 08/26/25 11:30 09/25/25 11:29 09/04/25 00:35 1 EACH Bisacodyl (DulcoLAX) 10 mg DAILY RC 08/17/25 09:00 08/20/25 08:59 DC 08/18/25 07:58 10 MG Calcium Carbonate (Tums 500 Mg Chew Tab) 500 tab QID PRN PO HEARTBURN 08/19/25 12:00 08/20/25 16:32 DC 08/20/25 05:10 1 TAB Calcium Gluconate 1 gm/Sodium Chloride 60 ml @ 200 mls/hr AD PRN IV HYPOCALCEMIA 08/20/25 17:00 09/19/25 16:59 08/30/25 03:43 200 MLS/HR Cefazolin Sodium (Ancef) 2 gm ONCALL IVP 08/19/25 19:30 08/21/25 08:36 DC 08/20/25 16:30 2 GM Cefazolin Sodium (Ancef) 2 gm Q8H IVPB 08/20/25 22:00 08/21/25 14:01 DC 08/21/25 13:45 2 GM Ceftriaxone Sodium (Rocephin 2gm Inj) 2 gm Q24H IVPB 08/14/25 11:30 08/24/25 11:29 DC 08/23/25 12:16 2 GM Chlordiazepoxide HCl (LIBrium 25 MG CAP) 25 mg Q2H PRN PO ALCOHOL WITHDRAWAL PROTOCOL 08/14/25 14:30 08/20/25 16:32 DC 08/16/25 23:38 25 MG Chlordiazepoxide HCl (LIBrium 25 MG CAP) 50 mg Q1H PRN PO ALCOHOL WITHDRAWAL PROTOCOL 08/14/25 14:30 08/20/25 16:32 DC Dexmedetomidine/ Sodium Chloride (PRECEdex 400MCG/ 100ML-NS) 400 mcg PROTOCOL IV 08/20/25 20:30 09/19/25 20:29 08/31/25 06:18 400 MCG Dextrose (D50w) 50 ml AD PRN IV HYPOGLYCEMIA PROTOCOL 08/20/25 17:00 09/19/25 16:59 Dextrose (D50w) 50 ml AD PRN IV HYPOGLYCEMIA PROTOCOL 08/13/25 20:00 08/20/25 22:03 DC Diphenhydramine HCl (BENAdryl INJ) 25 mg ONCE PRN IV ITCHING 08/15/25 23:00 08/17/25 22:59 DC Docusate Sodium (COLace 100MG CAP) 100 mg BID PRN PO CONSTIPATION 08/14/25 11:00 09/13/25 10:59 09/04/25 11:31 100 MG Dopamine HCl/ Dextrose 250 ml @ 0 mls/hr PROTOCOL IV 08/13/25 16:00 09/12/25 15:59 08/16/25 16:41 3 MLS/HR Enoxaparin Sodium (Lovenox) 40 mg DAILY SQ 09/03/25 09:00 09/04/25 10:33 DC 09/03/25 08:22 40 MG Epinephrine HCl 10 mg/Sodium Chloride 250 ml @ 14.091 mls/ hr AD PRN IV POST-OP CARDIOVASCULAR ORDERS 08/20/25 17:00 08/21/25 10:49 DC Epinephrine HCl 10 mg/Sodium Chloride 250 ml @ 0 mls/hr AD PRN IV TITRATE 08/20/25 08:00 09/19/25 07:59 08/26/25 16:56 0 MLS/HR Epinephrine HCl 10 mg/Sodium Chloride 250 ml @ 0 mls/hr AD PRN IV TITRATE 08/20/25 09:00 08/20/25 09:03 DC Famotidine (Pepcid 20mg Vial) 20 mg BID IV 08/20/25 21:00 08/22/25 08:20 DC 08/21/25 20:17 20 MG Famotidine (Pepcid 20mg Tab) 20 mg BID PO 08/22/25 09:00 09/21/25 08:59 09/05/25 21:30 20 MG Folic Acid (FOLic ACID 1 MG TABLET) 1 mg DAILY PO 08/15/25 09:00 08/17/25 09:01 DC 08/17/25 07:46 1 MG Furosemide (LASix 20MG TAB) 20 mg BID@09,17 PO 09/05/25 09:00 10/05/25 08:59 09/05/25 16:55 20 MG Furosemide (LASix 20MG VIAL) 20 mg Q12H IV 08/21/25 11:30 08/22/25 14:17 DC 08/22/25 11:53 20 MG Furosemide (LASix 20MG VIAL) 20 mg Q12H IV 08/22/25 21:00 08/23/25 11:37 DC 08/23/25 09:50 20 MG Furosemide (LASix 20MG VIAL) 40 mg Q12H IV 08/22/25 21:00 08/22/25 14:32 DC Furosemide (LASix 40MG VIAL) 40 mg Q12H IV 08/23/25 11:30 08/30/25 11:08 DC 08/29/25 22:38 40 MG Furosemide (LASix 40MG VIAL) 40 mg Q12H IV 09/02/25 11:00 09/05/25 08:55 DC 09/04/25 21:35 40 MG Furosemide 100 mg/ Sodium Chloride 100 ml @ 0 mls/hr PROTOCOL IV 08/30/25 11:30 09/02/25 10:56 DC 09/02/25 09:12 10 MLS/HR Gabapentin (NEURontin 300 MG CAP) 300 mg TID PO 08/23/25 14:00 09/22/25 13:59 09/05/25 21:30 300 MG Glucagon (Glucagon 1mg Kit) 1 mg AD PRN IM HYPOGLYCEMIA PROTOCOL 08/20/25 17:00 09/19/25 16:59 Glucagon (Glucagon 1mg Kit) 1 mg AD PRN IM HYPOGLYCEMIA PROTOCOL 08/13/25 20:00 08/21/25 10:49 DC Heparin Sodium (Porcine) (HEParin 5,000 UNIT VIAL) *calculation based on ACTUAL B... AD PRN IV HEPARIN PROTOCOL 08/13/25 16:30 08/20/25 16:32 DC 08/17/25 04:46 3,175 UNIT Heparin Sodium/ Dextrose 250 ml @ 0 mls/hr PROTOCOL IV 08/21/25 11:30 09/03/25 06:32 DC 08/28/25 15:28 10.54 MLS/HR Heparin Sodium/ Dextrose 250 ml @ 0 mls/hr Q6H IV 08/13/25 16:30 08/20/25 16:32 DC 08/19/25 22:03 11.78 MLS/HR Insulin Glargine (LANtus 100 UNITS/ML 10 ML VIAL) 5 units BID@0730,2100 SQ 08/16/25 21:00 08/17/25 09:31 DC 08/16/25 21:21 5 UNITS Insulin Glargine (LANtus 100 UNITS/ML 10 ML VIAL) 10 units HS SQ 08/13/25 21:00 08/14/25 06:16 DC 08/13/25 20:21 10 UNITS Insulin Glargine (LANtus 100 UNITS/ML 10 ML VIAL) 15 units DAILY SQ 08/23/25 09:00 08/28/25 07:20 DC 08/27/25 08:35 15 UNITS Insulin Glargine (LANtus 100 UNITS/ML 10 ML VIAL) 20 units DAILY SQ 08/14/25 09:00 08/15/25 07:24 DC 08/14/25 08:01 20 UNITS Insulin Glargine (LANtus 100 UNITS/ML 10 ML VIAL) 20 units DAILY SQ 08/28/25 09:00 09/27/25 08:59 09/05/25 08:06 20 UNITS Insulin Glargine (LANtus 100 UNITS/ML 10 ML VIAL) 30 units DAILY SQ 08/15/25 09:00 08/16/25 07:19 DC 08/15/25 08:28 30 UNITS Insulin Glargine (LANtus 100 UNITS/ML 10 ML VIAL) 35 units DAILY SQ 08/16/25 09:00 08/19/25 07:35 DC 08/18/25 07:59 35 UNITS Insulin Glargine (LANtus 100 UNITS/ML 10 ML VIAL) 42 units DAILY SQ 08/19/25 09:00 08/20/25 06:22 DC 08/19/25 09:40 42 UNITS Insulin Glargine (LANtus 100 UNITS/ML 10 ML VIAL) 45 units DAILY SQ 08/20/25 09:00 08/20/25 16:32 DC Insulin Human Lispro (HumaLOG LISpro 100 UNIT/ML 3ML) INSULIN SLIDING SCAL... ACHS SQ 08/16/25 21:00 08/17/25 09:31 DC Insulin Human Regular (humuLIN R 100 UNIT/ML 3ML) 3 unit TIDAC SQ 08/27/25 07:30 08/27/25 20:56 DC 08/27/25 16:47 3 UNIT Insulin Human Regular (humuLIN R 100 UNIT/ML 3ML) 5 unit TIDAC SQ 08/14/25 17:00 08/15/25 07:24 DC 08/15/25 07:03 5 UNIT Insulin Human Regular (humuLIN R 100 UNIT/ML 3ML) 6 unit TIDAC SQ 08/28/25 07:30 09/27/25 07:29 09/06/25 06:49 6 UNIT Insulin Human Regular (humuLIN R 100 UNIT/ML 3ML) 8 unit TIDAC SQ 08/15/25 07:30 08/15/25 22:46 DC 08/15/25 16:02 8 UNIT Insulin Human Regular (humuLIN R 100 UNIT/ML 3ML) 10 unit TIDAC SQ 08/16/25 07:30 08/17/25 21:12 DC 08/17/25 16:09 10 UNIT Insulin Human Regular (humuLIN R 100 UNIT/ML 3ML) 12 unit TIDAC SQ 08/18/25 07:30 08/18/25 20:19 DC 08/18/25 16:39 12 UNIT Insulin Human Regular (humuLIN R 100 UNIT/ML 3ML) 16 unit TIDAC SQ 08/19/25 07:30 08/20/25 06:22 DC 08/19/25 16:47 16 UNIT Insulin Human Regular (humuLIN R 100 UNIT/ML 3ML) 17 unit TIDAC SQ 08/20/25 07:30 08/20/25 16:32 DC Insulin Human Regular (humuLIN R 100 UNIT/ML 3ML) INSULIN SLIDING SCAL... ACHS SQ 08/17/25 16:30 08/20/25 16:32 DC 08/19/25 21:31 8 UNIT Insulin Human Regular (humuLIN R 100 UNIT/ML 3ML) INSULIN SLIDING SCAL... ACHS SQ 08/22/25 11:30 08/22/25 21:32 DC 08/22/25 20:58 3 UNIT Insulin Human Regular (humuLIN R 100 UNIT/ML 3ML) INSULIN SLIDING SCAL... ACHS SQ 08/23/25 07:30 09/22/25 07:29 09/06/25 06:48 2 UNIT Insulin Human Regular (humuLIN R 100 UNIT/ML 3ML) INSULIN SLIDING SCAL... ACHS SQ 08/13/25 16:30 08/16/25 20:46 DC 08/16/25 20:01 4 UNIT Insulin Human Regular 100 unit/ Sodium Chloride 100 ml @ 0 mls/hr AD IV 08/20/25 17:00 08/22/25 16:59 DC 08/21/25 15:00 5 MLS/HR Iron Sucrose (VenoFER) 200 mg DAILY IV 08/21/25 13:00 08/23/25 09:43 DC 08/22/25 11:53 200 MG Iron Sucrose (VenoFER) 200 mg DAILY IV 08/23/25 09:00 08/26/25 08:57 DC 08/25/25 09:25 200 MG Lidocaine (Lidocaine Patch 4%) 1 each DAILY TP 08/19/25 09:00 09/18/25 08:59 09/05/25 08:05 1 EACH Lidocaine HCl/ Dextrose 250 ml @ 0 mls/hr PROTOCOL IV 08/21/25 00:00 09/20/25 00:00 Lidocaine/ Prilocaine (Emla) 1 appl ONCE TP 08/31/25 13:30 09/01/25 07:33 DC 08/31/25 13:59 1 APPL Magnesium Sulfate 50 ml @ 12.5 mls/hr AD PRN IV MAG LEVEL LESS THAN 2.0 08/20/25 17:00 09/02/25 09:48 DC 09/02/25 09:19 12.5 MLS/HR Magnesium Sulfate 50 ml @ 0 mls/hr PROTOCOL IV 09/02/25 10:00 10/02/25 09:59 09/05/25 14:36 25 MLS/HR Magnesium Sulfate 50 ml @ 0 mls/hr PROTOCOL IV 08/13/25 16:30 08/21/25 10:49 DC 08/21/25 05:58 25 MLS/HR Metoprolol Succinate (TopROL XL) 12.5 mg DAILY PO 09/05/25 09:00 12/1/25 08:59 09/05/25 09:50 12.5 MG Midodrine (PROAMatine 5 MG TABLET) 5 mg Q6H6 PO 08/26/25 16:00 09/01/25 10:53 DC 09/01/25 06:57 5 MG Midodrine (PROAMatine 5 MG TABLET) 10 mg Q6H6 PO 09/01/25 12:00 09/02/25 16:25 DC 09/02/25 12:32 10 MG Midodrine (PROAMatine 5 MG TABLET) 15 mg Q6H6 PO 09/02/25 18:00 10/02/25 17:59 09/06/25 00:25 15 MG Morphine Sulfate (morPHINE 2MG SYG) 0.5 mg Q2H PRN IV MODERATE PAIN (4-6) 08/20/25 17:00 08/20/25 18:07 DC Morphine Sulfate (morPHINE 2MG SYG) 2 mg Q6H PRN IVP SEVERE PAIN (7-10) 08/19/25 18:00 08/20/25 16:32 DC 08/19/25 17:50 2 MG Morphine Sulfate (morPHINE 4MG SYG) 0.5 mg Q2H PRN IV MODERATE PAIN (4-6) 08/20/25 18:30 08/21/25 16:59 DC Morphine Sulfate (morPHINE 4MG SYG) 1 mg Q2H PRN IV SEVERE PAIN (7-10) 08/20/25 17:00 08/21/25 16:59 DC Morphine Sulfate (morPHINE 4MG SYG) 2 mg Q6H PRN IVP SEVERE PAIN (7-10) 08/14/25 09:30 08/19/25 12:29 DC 08/19/25 12:22 2 MG Multivitamins Therapeutic (Multivitamin Tablet) 1 tab DAILY PO 08/15/25 09:00 09/14/25 08:59 09/05/25 08:05 1 TAB Nitroglycerin/ Dextrose 0 ml @ 0 mls/hr AD IV 08/20/25 17:00 08/23/25 16:59 DC Nitroglycerin/ Dextrose 250 ml @ 0 mls/hr PROTOCOL IV 08/20/25 03:30 08/20/25 16:32 DC 08/20/25 03:12 1.5 MLS/HR Norepinephrine 250 ml @ 0 mls/hr PROTOCOL IV 08/13/25 15:30 08/20/25 08:31 DC Norepinephrine Bitartrate 250 ml @ 0 mls/hr AD PRN IV TITRATE 08/20/25 08:00 09/19/25 07:59 09/01/25 23:29 6.18 MLS/HR Norepinephrine Bitartrate 250 ml @ 0 mls/hr AD PRN IV TITRATE 08/20/25 09:00 08/20/25 09:03 DC Norepinephrine Bitartrate 8 mg/ Dextrose 250 ml @ 0 mls/hr AD PRN IV POST-OP CARDIOVASCULAR ORDERS 08/20/25 17:00 08/21/25 10:49 DC Ondansetron HCl (zoFRAN 4MG INJ) 4 mg Q4H PRN IV NAUSEA 08/14/25 14:30 08/20/25 16:32 DC 08/14/25 14:17 4 MG Ondansetron HCl (zoFRAN 4MG INJ) 4 mg Q6H PRN IV NAUSEA/VOMITING 08/20/25 17:00 09/19/25 16:59 08/29/25 12:47 4 MG Ondansetron HCl (zoFRAN 4MG INJ) 4 mg Q6H PRN IVP NAUSEA/VOMITING 08/13/25 16:30 08/14/25 14:08 DC Pantoprazole Sodium (PROTonix 40MG INJ) 40 mg Q12H IVP 08/17/25 16:30 08/20/25 16:32 DC 08/20/25 03:53 40 MG Pantoprazole Sodium (PROTonix 40MG INJ) 40 mg Q24H IVP 08/13/25 16:30 08/17/25 11:10 DC 08/16/25 16:07 40 MG Pharmacy Profile Note (Pharmacy Communication) 1 each PROTOCOL PRN MISC ETOH Withdrawal Score changes 08/14/25 14:30 08/14/25 14:08 DC Phenylephrine HCl 100 mg/Sodium Chloride 250 ml @ 0 mls/hr PROTOCOL IV 08/26/25 20:30 09/25/25 20:29 Piperacillin Sod/ Tazobactam Sod (Zosyn 3.375gm+NS 50ml) 3.375 gm Q8H IV 08/30/25 10:00 09/09/25 09:59 09/06/25 01:21 3.375 GM Polyethylene Glycol (MIRalax 3350 17 GM POWD.PACK) 17 gm DAILY PO 08/15/25 09:00 09/14/25 08:59 09/05/25 08:05 17 GM Potassium Phosphate 250 ml @ 42 mls/hr AD PRN IV LOW PHOS LEVEL 08/20/25 17:00 09/19/25 16:59 Potassium Chloride 100 ml @ 100 mls/hr AD PRN IV HYPOKALEMIA 08/20/25 17:00 09/19/25 16:59 09/06/25 04:59 100 MLS/HR Potassium Chloride 100 ml @ 100 mls/hr AD PRN IV POTASSIUM PROTOCOL 08/13/25 16:30 08/20/25 16:32 DC 08/16/25 16:07 100 MLS/HR Potassium Chloride (K-Dur/Klor-Con 20meq) 20 meq AD PRN PO POTASSIUM PROTOCOL 08/13/25 16:30 08/20/25 16:32 DC 08/15/25 08:23 20 MEQ Potassium Chloride (KCl 10% Elixir 20meq/15ml) 20 meq AD PRN PO POTASSIUM PROTOCOL 08/13/25 16:30 08/20/25 16:32 DC Promethazine HCl (Phenergan) 25 mg Q6H PRN PO NAUSEA 08/14/25 14:30 08/20/25 16:32 DC Propofol 100 ml @ 0 mls/hr AD PRN IV SEDATION 08/20/25 17:00 08/24/25 17:00 DC Sodium Bicarbonate 25 meq/Dextrose 1,000 ml @ 0 mls/hr Q0M IV 08/14/25 00:30 09/13/25 00:29 08/28/25 16:29 14 MLS/HR Sodium Bicarbonate 25 meq/Dextrose 1,000 ml @ 0 mls/hr Q0M IVP 08/14/25 00:30 08/14/25 00:15 DC Sodium Bicarbonate (Sodium Bicarb 50meq 50ml Vial) 50 meq AD PRN IV OTHER[SEE DOSING INSTRUCTIONS] 08/20/25 17:00 08/23/25 16:59 DC 08/21/25 01:19 50 MEQ Sodium Chloride 500 ml @ 500 mls/hr Q1H IV 08/20/25 00:33 08/20/25 03:16 DC 08/20/25 00:53 500 MLS/HR Sodium Chloride 500 ml @ 0 mls/hr AD IV 08/20/25 17:00 09/19/25 16:59 Sodium Chloride 1,000 ml @ 10 mls/hr ONCE IV 08/20/25 17:00 08/21/25 16:59 DC 08/20/25 22:31 10 MLS/HR Sodium Chloride (NS Flush 10ml) 10 ml Q8H PRN IVP IV LINE FLUSH 08/20/25 17:00 09/19/25 16:59 Thiamine HCl (Vitamin B-1) 300 mg DAILY IV 08/15/25 09:00 08/17/25 09:01 DC 08/17/25 07:46 300 MG Ticagrelor (BRILinta) 90 mg BID PO 08/14/25 09:00 08/14/25 21:19 DC 08/14/25 20:09 90 MG Tramadol HCl (UltRAM) 25 mg Q6H PRN PO MODERATE PAIN (4-6) 08/20/25 17:00 08/25/25 16:59 DC Tramadol HCl (UltRAM) 25 mg Q6H PRN PO MODERATE PAIN (4-6) 08/26/25 11:00 08/31/25 10:59 DC 08/27/25 03:12 25 MG Tramadol HCl (UltRAM) 25 mg Q6H PRN PO moderate pain 4-6 09/04/25 23:30 09/09/25 23:29 Tramadol HCl (UltRAM) 50 mg Q6H PRN PO SEVERE PAIN (7-10) 08/20/25 17:00 08/25/25 16:59 DC 08/25/25 09:24 50 MG Tramadol HCl (UltRAM) 50 mg Q6H PRN PO SEVERE PAIN (7-10) 08/26/25 11:00 08/31/25 10:59 DC 08/29/25 05:39 50 MG Tramadol HCl (UltRAM) 50 mg Q6H PRN PO SEVERE PAIN (7-10) 09/04/25 23:30 09/09/25 23:29 09/06/25 06:52 50 MG Vancomycin HCl 250 ml @ 125 mls/hr Q12H IV 08/18/25 09:00 08/19/25 20:54 DC 08/19/25 09:39 125 MLS/HR Vancomycin HCl 250 ml @ 125 mls/hr Q12H IV 08/24/25 23:00 08/26/25 21:47 DC 08/26/25 11:47 125 MLS/HR Vancomycin HCl 250 ml @ 125 mls/hr Q8H IV 08/19/25 21:30 08/21/25 00:23 DC 08/20/25 22:26 125 MLS/HR Vancomycin HCl 250 ml @ 125 mls/hr Q8H IV 08/21/25 06:30 08/21/25 08:35 DC 08/21/25 08:15 125 MLS/HR Vancomycin HCl 250 ml @ 125 mls/hr Q8H IV 08/21/25 08:00 08/21/25 06:28 DC Vancomycin HCl 250 ml @ 125 mls/hr Q8H IV 08/21/25 16:30 08/24/25 16:54 DC 08/24/25 09:32 125 MLS/HR Vancomycin HCl (Vancomycin Protocol) 1 each AD IV 08/17/25 22:00 08/26/25 21:47 DC Wound Care/ Dressing Products (Venelex Ointment) 1 GM BID TP 09/01/25 09:00 09/30/25 20:59 09/05/25 21:36 60 GM Wound Care/ Dressing Products (Venelex Ointment) 1 gm BID TP 08/31/25 21:00 09/01/25 07:35 DC 08/31/25 21:26 1 GM DIAGNOSTICS / RADIOLOGY: [ ] ASSESSMENT: Cardiogenic shock with lactic acidosis, POA NSTEMI/ACS, POA Complete heart block, POA History of multivessel coronary artery disease, POA History of cocaine use disorder, POA Severe nonketotic hyperglycemia, POA History of to poorly controlled type 2 diabetes mellitus, POA Lactic acidosis, POA History of anemia, POA History of gastritis, POA History of hypertension, POA History of PTSD/anxiety, POA Obesity, POA Medical noncompliance, POA PLAN: patient is seen and examined at bedside, case discussed with the RN, no acute events overnight, the patient remains admitted to the ICU, awake, following c ommands, currently off Levophed, maintaining good blood pressure support. Currently on IV antibiotics. Remains on aspirin, atorvastatin, furosemide. Continue midodrine. Doppler of the lower extremities negative for DVT. Patient complained on my pain to the right leg, we will request arterial Doppler of the right leg, status post Impella removal. Scheduled for pacemaker placement by safety administrator Dr Lawson today. NEURO: MINIMIZE CENTRAL ACTING MEDICATIONS POSSIBLE. FALL PRECAUTIONS. WELL LIGHTED ROOM THROUGH THE DAY AND MINIMIZE INTERRUPTIONS THROUGH THE NIGHT TO PREVENT ACUTE DELIRIUM. PULMONARY: SUPPLEMENTAL 02 NEEDED OUT OF BED TO CHAIR TOLERATED MAINTAIN ASPIRATION PRECAUTIONS AT ALL TIMES Follow up with Pulmonary/critical Care Medicine, appreciate assistance CARDIOVASCULAR: FOLLOW HEMODYNAMICS. VITAL SIGNS PER FACILITY PROTOCOL Follow up with Cardiology, appreciate assistance -transitioned to oral diuretics -start low dose beta santos Follow up with EP Cardiology appreciate assistance -follow up in clinic in 7-10 days GI & NUTRITION: CONTINUE NUTRITIONAL SUPPORT ASPIRATIONS PRECAUTIONS PROKINETIC AGENTS AND LAXATIVES NEEDED KIDNEYS & ELECTROLYTES: STRICT MONITORING OF INTAKE AND OUTPUT DAILY WEIGHTS AVOID NEPHROTOXIC AGENTS MONITOR ELECTROLYTES AND REPLACE NEEDED GOAL URINE OUTPUT OF 30ML/HR OR 0.5ML/KG/HR MEDICATIONS TO BE DOSED ACCORDING TO RENAL FUNCTION. AVOID CONTRAST IF POSSIBLE ENDOCRINE: Increase Lantus to 24 units HS Continue regular insulin 6 units t.i.d. a.c. Continue regular insulin sliding scale MAINTAIN BLOOD GLUCOSE BETWEEN 100-180 AT ALL TIMES. INSULIN SLIDING SCALE FOR BLOOD GLUCOSE MANAGEMENT HYPOGLYCEMIA AND HYPERGLYCEMIA PROTOCOL IN PLACE INFECTIOUS DISEASE: TREND TEMPERATURE, WBC AND PROCALCITONIN LEVEL FOLLOW CULTURES, DEESCALATE ANTIBIOTICS SOON POSSIBLE. PANCULTURE IF NEW ONSET FEVER HEMATOLOGY & COAGULATION: MONITOR H&H. KEEP HGB > 7 TRANSFUSE 1 UNIT OF PRBC FOR HGB < 7 TRANSFUSE 1 PACK OF PLATELETS OF PLATELETS < 20, 000 WATCH FOR ANY SIGNS AND SYMPTOMS OF BLEEDING SKIN: PRESSURE ULCER PREVENTION PER FACILITY PROTOCOL SPECIALTY MATTRESS NEEDED ORTHO/REHAB CONTINUE PT/OT PRN: MEDICATIONS TYLENOL 650 MG PO EVERY 4 HRS FOR FEVER ZOFRAN 4 MG IV EVERY 6 HRS FOR N/V HYDRALAZINE 5 MG IV EVERY 4 HRS SYSTOLIC PRESSURE > 160 BOWEL REGIMENT: LACTULOSE 20 GM PO BID PRN CONSTIPATION SUPPORTIVE MEASURES: CONTINUE GI AND DVT PROPHYLAXIS DISPOSITION: PENDING IMPROVEMENT IN CLINICAL CONDITION ALL QUESTIONS ANSWERED TIME SPENT: > 35 MIN CHRISTIAN MACHUCA IV, MD Sep 06, 2025 09:44
--- NOTE | 2025-09-06 10:12 | PN ---
[facility] PROGRESS NOTE Date Patient Seen: Sep 06, 2025 Time of Visit: 10:12 Supervising Physician:Ata Foster MD Consulting Physician: Hospitalist Outpatient Specialists: [ ] Inpatient Consults: Dr Chris ZARATE PROBLEM LIST: CABG x3 vessels 08/20 Suspected aspiration Pneumonia Acute on chronic Diastolic Heart Failure with EF of >50%, Improved Complete heart block, s/p PPM on 09/04/25 Bradycardia with episode of asystole requiring 20 seconds of CPR on 08/29/25 DM type 2, with hyperglycemia, HGB A1c of 10.7 Bacteremia + Staph Cohni urealyticum1/2 (contamination) Cocaine abuse Tobacco use, current smoker History of CVA INTERVAL HISTORY: No major overnight events. Patient has remained hemodynamically stable. In PCCU floor. Chest x-ray, with increased vascular congestion, minimal pleural effusion on the left. PPM in situ no pneumothorax. Plan: Follow CT surgeon recs Continue midodrine PT to eval and treat Follow I&Os Continue furosemide 20 mg p.o. b.i.d. Monitor respiratory status closely, maintain O2 sats above 92% ABX: IV Zosyn for a total of 7 days Continue physical therapy Continue IS q.2 hours Chest x-ray am daily weight fluid restriction REVIEW OF SYSTEMS: 12 point ROS reviewed with patient. Pertinent positives mentioned above. Otherwise negative. PHYSICAL EXAM: GENERAL: alert, weak, awake oriented x 3 HEENT: moist mucosa NECK: Supple, no JVD, trachea midline LUNGS: clear breath sounds bilaterally. No wheezes HEART: Normal S1 and S2, without murmurs ABD: Abdomen soft, nontender. Bowel sounds present EXT: No clubbing cyanosis or edema, rt knee pain and swelling NEURO: Alert and oriented to person, follows commands Vital Signs (last 8hr) Date Time Temp Pulse Resp B/P (MAP) Pulse Ox O2 Delivery O2 Flow Rate FiO2 09/06/25 08:00 98 Room Air* 0 21 09/06/25 07:53 97.9 80 18 113/67 96 Room Air 09/06/25 03:40 98.2 80 20 126/69 97 Room Air LABS: Hematology Labs: Test 09/06/25 03:42 Range/Units White Blood Count 7.4 4.8-10.8 K/uL Red Blood Count 3.17 L 4.00-5.50 MIL/uL Hemoglobin 9.6 L 12.0-16.0 g/dL Hematocrit 30.3 L 36-48 % Mean Corpuscular Volume 95.6 79-99 fL Mean Corpuscular Hemoglobin 30.3 27.0-33.0 pg Mean Corpuscular Hemoglobin Concent 31.7 L 32.0-36.0 g/dL Red Cell Distribution Width 17.2 H 11.0-15.5 % Platelet Count 332 130-400 K/uL Mean Platelet Volume 10.2 7.5-10.5 fL Nucleated Red Blood Cells 0.0 0.0-0.19 % Chemistry Labs: Test 09/06/25 05:12 09/06/25 03:42 09/05/25 04:03 Range/Units Whole Blood Glucose 178 H 70-110 MG/DL Sodium Level 134 L 136-145 mmol/L Potassium Level 3.9 3.5-5.1 mmol/L Chloride Level 100 L 101-111 mmol/L Carbon Dioxide Level 31 21-32 mmol/L Blood Urea Nitrogen 14 7-18 mg/dL Creatinine 0.7 0.5-1.0 mg/dL Glomerular Filtration Rate Calc 100 >90 mL/min Random Glucose 171 #H 70-105 mg/dL Total Calcium 8.3 L 8.5-10.1 mg/dL Magnesium Level 1.70 L 1.80-2.40 mg/dL Total Bilirubin 0.3 0.2-1.0 mg/dL Aspartate Amino Transf (AST/SGOT) 33 10-37 U/L Alanine Aminotransferase (ALT/SGPT) 23 12-78 U/L Alkaline Phosphatase 190 H 50-136 U/L Total Protein 7.5 6.0-8.3 g/dL Albumin 1.9 L 3.5-5.0 g/dL DIAGNOSTICS / RADIOLOGY RESULTS: [ ] PLAN NEURO: Minimize central acting medications as possible. Maintain fall precautions, adequate lighting during the day PULMONARY: Supplemental 02 as needed. Maintain aspiration precautions at all times CARDIOVASCULAR: Follow hemodynamics. Vital signs per facility protocol GI & NUTRITION: Continue with nutritional support. Continue stool softeners and laxatives as needed. KIDNEYS & ELECTROLYTES: Strict monitoring of intake, output and overall fluid balance. Avoid nephrotoxic medications to the extent possible. Medications to be dosed according to renal function. Monitor electrolytes and replace as needed ENDOCRINE: Maintain blood glucose between 100-180 at all times. Hypoglycemia protocol in place INFECTIOUS DISEASE: Trend temperature, WBC and procalcitonin level Follow cultures, deescalate antibiotics as soon as possible. Panculture if new onset fever ONCOLOGY/HEMATOLOGY/COAGULATION: Monitor for s/s of bleeding Monitor hemoglobin, coagulation studies as needed SKIN: Pressure ulcer prevention per facility protocol Specialty mattress ORTHO/REHAB: Continue PT/OT Prophylaxis: Continue GI and DVT prophylaxis Code Status: Full Resuscitation Disposition: TBD ATTESTATION BY PHYSICIAN I have evaluated the patient chart, medical records, and spoke with appropriate staff. I reviewed the documentation, medical decision making, and treatment plan as noted by the mid-level provider above. I agree with the findings and plan of care. Ata Foster MD, [facility] Sep 06, 2025 10:12
[2025-09-06] MEDS: CALCIUM CARB 500MG CHEW TAB PO PRN (11:30)
--- NOTE | 2025-09-06 17:30 | PN ---
Endocrinology progress note DOS: 09/06/25 subjective: Home diabetic regimen: metformin 500 mg bid Hba1c 10.7% glucose runs less than 180 mg/dl. patient is s/p CABG Non ST-elevation myocardial infarction in the setting of cocaine abuse complicated by cardiogenic shock requiring Impella support Severe multivessel CAD with acute occlusion of the right coronary artery unable to be revascularized percutaneously with preop ejection fraction of 50% by echo status post aortocoronary bypass graft surgery with a BRO graft to the LAD saphenous graft to the obtuse marginal artery and saphenous graft to the 2nd diagonal artery with a clipping of the left atrial appendage Ventricular standstill after anesthesia induction PAST MEDICAL HISTORY: Coronary artery disease with history of abnormal coronary CT angiography, gastritis, anemia, cocaine use disorder, obesity, PTSD, anxiety disorder, history of NSTEMI in 04/2025, history of CVA in 2008 PAST SURGICAL HISTORY: History of ventral hernia repair 2008, hx of cholecystectomy, hx of C Section PAST SOCIAL HISTORY: Denies active alcohol consumption, intermittently smokes cigarettes as well as has been using cocaine chronically FAMILY HISTORY: Reports family history of heart disease Home medications: Patient does not have list of home medications, family will be bringing list of home medications to be updated Allergies: Patient has allergic reaction to lisinopril Coded Allergies: No Known Drug Allergies (Verified Allergy, Unknown, 05/04/22) lisinopril (Verified Allergy, Unknown, 05/04/22) DIAGNOSTICS / RADIOLOGY: SERVICE 1425 REASON: cp ORDERING PHYSICIAN: ZORA OCHOA MD PROCEDURE: CXR1VW - CHEST 1VW EXAM: CR Chest, 1 View. CLINICAL HISTORY: COMPARISON: 07/08/25 FINDINGS: LUNGS: The lungs show no infiltrate or other acute finding. PLEURAL SPACES: No pleural effusion or pneumothorax. MEDIASTINUM: The cardiomediastinal silhouette is within normal limits. BONES: No aggressive appearing osseous lesion seen. IMPRESSION: No acute cardiopulmonary pathology is evident. /[place] DICTATED BY: BELKIS KURTZ MD DATE: 08/13/251731 ELECTRONICALLY SIGNED BY: BELKIS KURTZ MD DATE: 08/13/251731 ASSESSMENT: uncontrolled DM-2 Home diabetic regimen: metformin 500 mg bid Hba1c 10.7% glucose runs less than 180 mg/dl. off insulin drip now and on low dose ssi and low dose lantus insulin and regular insulin.. Cardiogenic shock with lactic acidosis, POA cardiology following, s/p CABG procedure. NSTEMI/ACS, POA Complete heart block, POA History of multivessel coronary artery disease, POA History of cocaine use disorder, POA Lactic acidosis, POA History of anemia, POA History of gastritis, POA History of hypertension, POA History of PTSD/anxiety, POA Obesity, POA Medical noncompliance, POA PLAN: continue Lantus 24 units daily and adjust for fasting glucose. continue Regular insulin 6 units three times before meals continue medium dose sliding scale insulin. Monitor glucose q x 6 hourly. Continue carb consistent diet. Keep glucose less than 180 mg/dl. Patient will need insulin at discharge. Vitals/Labs Vital Signs Date Time Temp Pulse Resp B/P (MAP) Pulse Ox O2 Delivery O2 Flow Rate FiO2 09/06/25 16:27 98.2 87 18 115/65 98 Room Air 09/06/25 11:46 21 09/06/25 08:00 0 Laboratory Tests 09/06/25 03:42 Medications Current Medications Ondansetron HCl 4 mg ONCE ONCE IVP; Start 08/13/25 at 14:30; Stop 08/13/25 at 14:52; Status DC Sodium Chloride 500 ml @ 0 mls/hr ONCE ONCE IV Last administered on 08/13/25at 15:00; Start 08/13/25 at 14:30; Stop 08/13/25 at 14:31; Status DC Heparin Sodium (Porcine) *calculation based on ACTUAL B... AD PRN IV Last administered on 08/17/25at 04:46; Start 08/13/25 at 16:30; Stop 08/20/25 at 16:32; Status DC Heparin Sodium/ Dextrose 250 ml @ 0 mls/hr Q6H IV Last administered on 08/19/25at 22:03; Start 08/13/25 at 16:30; Stop 08/20/25 at 16:32; Status DC Norepinephrine 250 ml @ 0 mls/hr PROTOCOL IV; Start 08/13/25 at 15:30; Stop 08/20/25 at 08:31; Status DC Dopamine HCl/ Dextrose 250 ml @ As Directed STK-MED ONCE IV; Start 08/13/25 at 15:33; Stop 08/13/25 at 15:33; Status DC Aspirin 325 mg STK-MED ONCE .ROUTE; Start 08/13/25 at 15:34; Stop 08/13/25 at 15:33; Status DC Ticagrelor 180 mg ONCE ONCE PO Last administered on 08/13/25at 16:16; Start 08/13/25 at 16:00; Stop 08/13/25 at 16:01; Status DC Morphine Sulfate 1 mg ONCE ONCE IVP Last administered on 08/13/25at 16:23; Start 08/13/25 at 16:00; Stop 08/13/25 at 16:01; Status DC Ticagrelor 90 mg STK-MED ONCE .ROUTE; Start 08/13/25 at 15:50; Stop 08/13/25 at 15:50; Status DC Dopamine HCl/ Dextrose 250 ml @ 0 mls/hr PROTOCOL IV Last administered on 08/16/25at 16:41; Start 08/13/25 at 16:00; Stop 09/12/25 at 15:59 Aspirin 325 mg ONCE ONCE PO Last administered on 08/13/25at 16:15; Start 08/13/25 at 16:00; Stop 08/13/25 at 16:01; Status DC Lidocaine HCl 20 ml STK-MED ONCE .ROUTE; Start 08/13/25 at 16:12; Stop 08/13/25 at 16:12; Status DC Iohexol 35,000 mg STK-MED ONCE IV; Start 08/13/25 at 16:12; Stop 08/13/25 at 16:12; Status DC Heparin Sodium (Porcine) 10,000 unit STK-MED ONCE .ROUTE; Start 08/13/25 at 16:12; Stop 08/13/25 at 16:12; Status DC Nicardipine HCl 25 mg STK-MED ONCE IV; Start 08/13/25 at 16:12; Stop 08/13/25 at 16:12; Status DC Heparin Sodium/ Sodium Chloride 1,000 ml @ As Directed STK-MED ONCE IV; Start 08/13/25 at 16:12; Stop 08/13/25 at 16:12; Status DC Nitroglycerin 50 mg STK-MED ONCE .ROUTE; Start 08/13/25 at 16:12; Stop 08/13/25 at 16:12; Status DC Pantoprazole Sodium 40 mg Q24H IVP Last administered on 08/16/25at 16:07; Start 08/13/25 at 16:30; Stop 08/17/25 at 11:10; Status DC Insulin Human Regular INSULIN SLIDING SCAL... ACHS SQ Last administered on 08/16/25at 20:01; Start 08/13/25 at 16:30; Stop 08/16/25 at 20:46; Status DC Insulin Human Regular 5 unit ONCE ONCE IV; Start 08/13/25 at 16:30; Stop 08/13/25 at 16:31; Status DC Fentanyl Citrate 100 mcg STK-MED ONCE .ROUTE; Start 08/13/25 at 16:26; Stop 08/13/25 at 16:26; Status DC Midazolam HCl 2 mg STK-MED ONCE .ROUTE; Start 08/13/25 at 16:27; Stop 08/13/25 at 16:27; Status DC Acetaminophen 650 mg Q6H PRN PO Last administered on 09/04/25at 03:33; Start 08/13/25 at 16:30; Stop 09/04/25 at 10:40; Status DC Ondansetron HCl 4 mg Q6H PRN IVP; Start 08/13/25 at 16:30; Stop 08/14/25 at 14:08; Status DC Potassium Chloride 100 ml @ 100 mls/hr AD PRN IV Last administered on 08/16/25at 16:07; Start 08/13/25 at 16:30; Stop 08/20/25 at 16:32; Status DC Potassium Chloride 20 meq AD PRN PO; Start 08/13/25 at 16:30; Stop 08/20/25 at 16:32; Status DC Potassium Chloride 20 meq AD PRN PO Last administered on 08/15/25at 08:23; Start 08/13/25 at 16:30; Stop 08/20/25 at 16:32; Status DC Magnesium Sulfate 50 ml @ 0 mls/hr PROTOCOL IV Last administered on 08/21/25at 05:58; Start 08/13/25 at 16:30; Stop 08/21/25 at 10:49; Status DC Atorvastatin Calcium 40 mg HS PO Last administered on 09/05/25at 21:29; Start 08/13/25 at 21:00; Stop 09/12/25 at 20:59 Heparin Sodium/ Sodium Chloride 500 ml @ As Directed STK-MED ONCE IV; Start 08/13/25 at 17:14; Stop 08/13/25 at 17:14; Status DC Heparin Sodium (Porcine) 10,000 unit STK-MED ONCE .ROUTE; Start 08/13/25 at 18:03; Stop 08/13/25 at 18:03; Status DC Aspirin 81 mg DAILY PO Last administered on 09/06/25at 09:56; Start 08/14/25 at 09:00; Stop 09/13/25 at 08:59 Insulin Glargine 10 units HS SQ Last administered on 08/13/25at 20:21; Start 08/13/25 at 21:00; Stop 08/14/25 at 06:16; Status DC Dextrose 50 ml AD PRN IV; Start 08/13/25 at 20:00; Stop 08/20/25 at 22:03; Status DC Glucagon 1 mg AD PRN IM; Start 08/13/25 at 20:00; Stop 08/21/25 at 10:49; Status DC Sodium Bicarbonate 25 meq/Dextrose 1,000 ml @ 0 mls/hr Q0M IVP; Start 08/14/25 at 00:30; Stop 08/14/25 at 00:15; Status DC Sodium Bicarbonate 25 meq/Dextrose 1,000 ml @ 0 mls/hr Q0M IV Last administered on 08/28/25at 16:29; Start 08/14/25 at 00:30; Stop 09/13/25 at 00:29 Glycerin 1 supp ONCE ONCE RC Last administered on 08/14/25at 05:56; Start 08/14/25 at 05:00; Stop 08/14/25 at 05:06; Status DC Insulin Glargine 20 units DAILY SQ Last administered on 08/14/25at 08:01; Start 08/14/25 at 09:00; Stop 08/15/25 at 07:24; Status DC Ticagrelor 90 mg BID PO Last administered on 08/14/25at 20:09; Start 08/14/25 at 09:00; Stop 08/14/25 at 21:19; Status DC Morphine Sulfate 2 mg Q6H PRN IVP Last administered on 08/19/25at 12:22; Start 08/14/25 at 09:30; Stop 08/19/25 at 12:29; Status DC Polyethylene Glycol 17 gm DAILY PO Last administered on 09/05/25at 08:05; Start 08/15/25 at 09:00; Stop 09/14/25 at 08:59 Docusate Sodium 100 mg BID PRN PO Last administered on 09/04/25at 11:31; Start 08/14/25 at 11:00; Stop 09/13/25 at 10:59 Ceftriaxone Sodium 2 gm Q24H IVPB Last administered on 08/23/25at 12:16; Start 08/14/25 at 11:30; Stop 08/24/25 at 11:29; Status DC Insulin Human Regular 5 unit TIDAC SQ Last administered on 08/15/25at 07:03; Start 08/14/25 at 17:00; Stop 08/15/25 at 07:24; Status DC Chlordiazepoxide HCl 25 mg Q2H PRN PO Last administered on 08/16/25at 23:38; Start 08/14/25 at 14:30; Stop 08/20/25 at 16:32; Status DC Chlordiazepoxide HCl 50 mg Q1H PRN PO; Start 08/14/25 at 14:30; Stop 08/20/25 at 16:32; Status DC Ondansetron HCl 4 mg Q4H PRN IV Last administered on 08/14/25at 14:17; Start 08/14/25 at 14:30; Stop 08/20/25 at 16:32; Status DC Promethazine HCl 25 mg Q6H PRN PO; Start 08/14/25 at 14:30; Stop 08/20/25 at 16:32; Status DC Acetaminophen 500 mg Q6H PRN PO Last administered on 08/26/25at 10:41; Start 08/14/25 at 14:30; Stop 09/13/25 at 14:29 Thiamine HCl 300 mg DAILY IV Last administered on 08/17/25at 07:46; Start 08/15/25 at 09:00; Stop 08/17/25 at 09:01; Status DC Folic Acid 1 mg DAILY PO Last administered on 08/17/25at 07:46; Start 08/15/25 at 09:00; Stop 08/17/25 at 09:01; Status DC Multivitamins Therapeutic 1 tab DAILY PO Last administered on 09/06/25at 09:58; Start 08/15/25 at 09:00; Stop 09/14/25 at 08:59 Pharmacy Profile Note 1 each PROTOCOL PRN MISC; Start 08/14/25 at 14:30; Stop 08/14/25 at 14:08; Status DC Insulin Glargine 30 units DAILY SQ Last administered on 08/15/25at 08:28; Start 08/15/25 at 09:00; Stop 08/16/25 at 07:19; Status DC Insulin Human Regular 8 unit TIDAC SQ Last administered on 08/15/25at 16:02; Start 08/15/25 at 07:30; Stop 08/15/25 at 22:46; Status DC Diphenhydramine HCl 25 mg ONCE ONCE IM; Start 08/15/25 at 21:00; Stop 08/15/25 at 22:52; Status DC Insulin Human Regular 10 unit TIDAC SQ Last administered on 08/17/25at 16:09; Start 08/16/25 at 07:30; Stop 08/17/25 at 21:12; Status DC Diphenhydramine HCl 25 mg ONCE PRN IV; Start 08/15/25 at 23:00; Stop 08/17/25 at 22:59; Status DC Insulin Glargine 35 units DAILY SQ Last administered on 08/18/25at 07:59; Start 08/16/25 at 09:00; Stop 08/19/25 at 07:35; Status DC Bisacodyl 10 mg DAILY RC Last administered on 08/18/25at 07:58; Start 08/17/25 at 09:00; Stop 08/20/25 at 08:59; Status DC Insulin Human Lispro INSULIN SLIDING SCAL... ACHS SQ; Start 08/16/25 at 21:00; Stop 08/17/25 at 09:31; Status DC Insulin Glargine 5 units BID@0730,2100 SQ Last administered on 08/16/25at 21:21; Start 08/16/25 at 21:00; Stop 08/17/25 at 09:31; Status DC Pantoprazole Sodium 40 mg Q12H IVP Last administered on 08/20/25at 03:53; Start 08/17/25 at 16:30; Stop 08/20/25 at 16:32; Status DC Insulin Human Regular INSULIN SLIDING SCAL... ACHS SQ Last administered on 08/19/25at 21:31; Start 08/17/25 at 16:30; Stop 08/20/25 at 16:32; Status DC Insulin Human Regular 12 unit TIDAC SQ Last administered on 08/18/25at 16:39; Start 08/18/25 at 07:30; Stop 08/18/25 at 20:19; Status DC Vancomycin HCl 1 each AD IV; Start 08/17/25 at 22:00; Stop 08/26/25 at 21:47; Status DC Vancomycin HCl 250 ml @ 83.333 mls/ hr ONCE ONCE IV Last administered on 08/17/25at 23:05; Start 08/17/25 at 22:30; Stop 08/18/25 at 01:29; Status DC Vancomycin HCl 250 ml @ 125 mls/hr Q12H IV Last administered on 08/19/25at 09:39; Start 08/18/25 at 09:00; Stop 08/19/25 at 20:54; Status DC Albumin Human 50 ml @ 0 mls/hr BID IV Last administered on 08/22/25at 20:56; Start 08/18/25 at 09:00; Stop 08/23/25 at 08:59; Status DC Lidocaine 1 each DAILY TP Last administered on 09/06/25at 09:55; Start 08/19/25 at 09:00; Stop 09/18/25 at 08:59 Lidocaine 1 each ONCE ONCE TP Last administered on 08/18/25at 13:52; Start 08/18/25 at 14:00; Stop 08/18/25 at 14:01; Status DC Diphenhydramine HCl 25 mg ONCE ONCE PO Last administered on 08/18/25at 15:19; Start 08/18/25 at 15:30; Stop 08/18/25 at 15:31; Status DC Insulin Human Regular 16 unit TIDAC SQ Last administered on 08/19/25at 16:47; Start 08/19/25 at 07:30; Stop 08/20/25 at 06:22; Status DC Insulin Glargine 42 units DAILY SQ Last administered on 08/19/25at 09:40; Start 08/19/25 at 09:00; Stop 08/20/25 at 06:22; Status DC Calcium Carbonate 500 tab QID PRN PO Last administered on 08/20/25at 05:10; Start 08/19/25 at 12:00; Stop 08/20/25 at 16:32; Status DC Morphine Sulfate 2 mg Q6H PRN IVP Last administered on 08/19/25at 17:50; Start 08/19/25 at 18:00; Stop 08/20/25 at 16:32; Status DC Cefazolin Sodium 2 gm ONCALL IVP Last administered on 08/20/25at 16:30; Start 08/19/25 at 19:30; Stop 08/21/25 at 08:36; Status DC Vancomycin HCl 250 ml @ 125 mls/hr Q8H IV Last administered on 08/20/25at 22:26; Start 08/19/25 at 21:30; Stop 08/21/25 at 00:23; Status DC Sodium Chloride 500 ml @ 500 mls/hr Q1H IV Last administered on 08/20/25at 00:53; Start 08/20/25 at 00:33; Stop 08/20/25 at 03:16; Status DC Nitroglycerin/ Dextrose 250 ml @ 0 mls/hr PROTOCOL IV Last administered on 08/20/25at 03:12; Start 08/20/25 at 03:30; Stop 08/20/25 at 16:32; Status DC Insulin Glargine 45 units DAILY SQ; Start 08/20/25 at 09:00; Stop 08/20/25 at 16:32; Status DC Insulin Human Regular 17 unit TIDAC SQ; Start 08/20/25 at 07:30; Stop 08/20/25 at 16:32; Status DC Epinephrine HCl 10 mg/Sodium Chloride 250 ml @ 0 mls/hr AD PRN IV Last administered on 08/26/25at 16:56; Start 08/20/25 at 08:00; Stop 09/19/25 at 07:59 Norepinephrine Bitartrate 250 ml @ 0 mls/hr AD PRN IV Last administered on 09/01/25at 23:29; Start 08/20/25 at 08:00; Stop 09/19/25 at 07:59 Aminocaproic Acid 57999 mg/Sodium Chloride 480 ml @ 0 mls/hr AD PRN IV; Start 08/20/25 at 08:00; Stop 09/02/25 at 07:55; Status DC Cefazolin Sodium 1 gm STK-MED ONCE .ROUTE; Start 08/20/25 at 08:23; Stop 08/20/25 at 08:23; Status DC Heparin Sodium/ Sodium Chloride 500 ml @ As Directed STK-MED ONCE IV; Start 08/20/25 at 08:23; Stop 08/20/25 at 08:24; Status DC Papaverine HCl 60 mg STK-MED ONCE .ROUTE Last administered on 08/20/25at 17:05; Start 08/20/25 at 08:23; Stop 08/20/25 at 08:24; Status DC Epinephrine HCl 10 mg/Sodium Chloride 250 ml @ 0 mls/hr AD PRN IV; Start 08/20/25 at 09:00; Stop 08/20/25 at 09:03; Status DC Norepinephrine Bitartrate 250 ml @ 0 mls/hr AD PRN IV; Start 08/20/25 at 09:00; Stop 08/20/25 at 09:03; Status DC Aminocaproic Acid 08706 mg/Sodium Chloride 480 ml @ 0 mls/hr AD PRN IV; Start 08/20/25 at 09:00; Stop 08/20/25 at 09:03; Status DC Protamine Sulfate 250 mg STK-MED ONCE IV; Start 08/20/25 at 15:44; Stop 08/20/25 at 15:44; Status DC Lidocaine HCl 100 mg STK-MED ONCE .ROUTE; Start 08/20/25 at 15:44; Stop 08/20/25 at 15:44; Status DC Heparin Sodium (Porcine) 10,000 unit STK-MED ONCE .ROUTE; Start 08/20/25 at 15:44; Stop 08/20/25 at 15:44; Status DC Epinephrine HCl 1 mg STK-MED ONCE .ROUTE; Start 08/20/25 at 15:44; Stop 08/20/25 at 15:44; Status DC Sodium Bicarbonate 200 ml @ As Directed STK-MED ONCE .ROUTE; Start 08/20/25 at 15:44; Stop 08/20/25 at 15:44; Status DC Norepinephrine Bitartrate 4 mg STK-MED ONCE IV; Start 08/20/25 at 15:44; Stop 08/20/25 at 15:44; Status DC Propofol 200 mg STK-MED ONCE IV; Start 08/20/25 at 15:45; Stop 08/20/25 at 15:44; Status DC Fentanyl Citrate 1,000 mcg STK-MED ONCE IJ; Start 08/20/25 at 15:45; Stop 08/20/25 at 15:45; Status DC Midazolam HCl 2 mg STK-MED ONCE .ROUTE; Start 08/20/25 at 15:45; Stop 08/20/25 at 15:45; Status DC Rocuronium [place] 50 mg STK-MED ONCE .ROUTE; Start 08/20/25 at 15:45; Stop 08/20/25 at 15:45; Status DC Sodium Bicarbonate 400 ml @ As Directed STK-MED ONCE .ROUTE; Start 08/20/25 at 15:46; Stop 08/20/25 at 15:46; Status DC Cefazolin Sodium 1 gm STK-MED ONCE .ROUTE Last administered on 08/20/25at 17:05; Start 08/20/25 at 16:19; Stop 08/20/25 at 16:19; Status DC Vancomycin HCl 250 ml @ As Directed STK-MED ONCE IV Last administered on 08/20/25at 16:40; Start 08/20/25 at 16:40; Stop 08/20/25 at 16:40; Status DC Sodium Chloride 1,000 ml @ 10 mls/hr ONCE IV Last administered on 08/20/25at 22:31; Start 08/20/25 at 17:00; Stop 08/21/25 at 16:59; Status DC Sodium Chloride 10 ml Q8H PRN IVP; Start 08/20/25 at 17:00; Stop 09/19/25 at 16:59 Morphine Sulfate 0.5 mg Q2H PRN IV; Start 08/20/25 at 17:00; Stop 08/20/25 at 18:07; Status DC Morphine Sulfate 1 mg Q2H PRN IV; Start 08/20/25 at 17:00; Stop 08/21/25 at 16:59; Status DC Acetaminophen 650 mg Q4H PRN RC; Start 08/20/25 at 17:00; Stop 09/19/25 at 16:59 Ondansetron HCl 4 mg Q6H PRN IV Last administered on 08/29/25at 12:47; Start 08/20/25 at 17:00; Stop 09/19/25 at 16:59 Sodium Chloride 500 ml @ 0 mls/hr AD IV; Start 08/20/25 at 17:00; Stop 09/19/25 at 16:59 Nitroglycerin/ Dextrose 0 ml @ 0 mls/hr AD IV; Start 08/20/25 at 17:00; Stop 08/23/25 at 16:59; Status DC Propofol 100 ml @ 0 mls/hr AD PRN IV; Start 08/20/25 at 17:00; Stop 08/24/25 at 17:00; Status DC Norepinephrine Bitartrate 8 mg/ Dextrose 250 ml @ 0 mls/hr AD PRN IV; Start 08/20/25 at 17:00; Stop 08/21/25 at 10:49; Status DC Epinephrine HCl 10 mg/Sodium Chloride 250 ml @ 14.091 mls/ hr AD PRN IV; Start 08/20/25 at 17:00; Stop 08/21/25 at 10:49; Status DC Aminocaproic Acid 28429 mg/Sodium Chloride 310 ml @ 25 mls/hr AD IV; Start 08/20/25 at 17:00; Stop 08/21/25 at 05:23; Status DC Calcium Gluconate 1 gm/Sodium Chloride 60 ml @ 200 mls/hr AD PRN IV Last administered on 08/30/25at 03:43; Start 08/20/25 at 17:00; Stop 09/19/25 at 16:59 Magnesium Sulfate 50 ml @ 12.5 mls/hr AD PRN IV Last administered on 09/02/25at 09:19; Start 08/20/25 at 17:00; Stop 09/02/25 at 09:48; Status DC Potassium Chloride 100 ml @ 100 mls/hr AD PRN IV Last administered on 09/06/25at 04:59; Start 08/20/25 at 17:00; Stop 09/19/25 at 16:59 Potassium Phosphate 250 ml @ 42 mls/hr AD PRN IV; Start 08/20/25 at 17:00; Stop 09/19/25 at 16:59 Albumin Human 250 ml @ 0 mls/hr AD PRN IV Last administered on 08/20/25at 22:46; Start 08/20/25 at 17:00; Stop 08/20/25 at 22:46; Status DC Acetaminophen 650 mg Q4H PRN PO; Start 08/20/25 at 17:00; Stop 09/04/25 at 10:40; Status DC Insulin Human Regular 100 unit/ Sodium Chloride 100 ml @ 0 mls/hr AD IV Last administered on 08/21/25at 15:00; Start 08/20/25 at 17:00; Stop 08/22/25 at 16:59; Status DC Cefazolin Sodium 2 gm Q8H IVPB Last administered on 08/21/25at 13:45; Start 08/20/25 at 22:00; Stop 08/21/25 at 14:01; Status DC Tramadol HCl 25 mg Q6H PRN PO; Start 08/20/25 at 17:00; Stop 08/25/25 at 16:59; Status DC Tramadol HCl 50 mg Q6H PRN PO Last administered on 08/25/25at 09:24; Start 08/20/25 at 17:00; Stop 08/25/25 at 16:59; Status DC Famotidine 20 mg BID IV Last administered on 08/21/25at 20:17; Start 08/20/25 at 21:00; Stop 08/22/25 at 08:20; Status DC Sodium Bicarbonate 50 meq AD PRN IV Last administered on 08/21/25at 01:19; Start 08/20/25 at 17:00; Stop 08/23/25 at 16:59; Status DC Dextrose 50 ml AD PRN IV; Start 08/20/25 at 17:00; Stop 09/19/25 at 16:59 Glucagon 1 mg AD PRN IM; Start 08/20/25 at 17:00; Stop 09/19/25 at 16:59 Amiodarone HCL/ Dextrose 100 ml @ As Directed STK-MED ONCE .ROUTE; Start 08/20/25 at 16:52; Stop 08/20/25 at 16:52; Status DC Lidocaine HCl 100 mg STK-MED ONCE .ROUTE; Start 08/20/25 at 17:34; Stop 08/20/25 at 17:34; Status DC Morphine Sulfate 0.5 mg Q2H PRN IV; Start 08/20/25 at 18:30; Stop 08/21/25 at 16:59; Status DC Heparin Sodium (Porcine) 10,000 unit STK-MED ONCE .ROUTE; Start 08/20/25 at 18:12; Stop 08/20/25 at 18:12; Status DC Insulin Human Regular 300 unit STK-MED ONCE .ROUTE; Start 08/20/25 at 19:39; Stop 08/20/25 at 19:39; Status DC Dexmedetomidine/ Sodium Chloride 400 mcg PROTOCOL IV Last administered on 08/31/25at 06:18; Start 08/20/25 at 20:30; Stop 09/19/25 at 20:29 Magnesium Sulfate 8.12 meq STK-MED ONCE IJ; Start 08/20/25 at 20:17; Stop 08/20/25 at 20:17; Status DC Vasopressin 20 units STK-MED ONCE .ROUTE; Start 08/20/25 at 20:17; Stop 08/20/25 at 20:17; Status DC Amiodarone HCl 360 mg/Dextrose 207.2 ml @ 33.3 mls/hr AD IV; Start 08/20/25 at 21:00; Stop 08/20/25 at 21:05; Status DC Amiodarone HCl 540 mg/Dextrose 310.8 ml @ 16.7 mls/hr [id number] IV Last administered on 08/21/25at 20:12; Start 08/21/25 at 03:00; Stop 08/27/25 at 06:20; Status DC Amiodarone HCL/ Dextrose 207.2 ml @ 33.3 mls/hr AD IV Last administered on 08/20/25at 21:24; Start 08/20/25 at 21:30; Stop 08/21/25 at 10:49; Status DC Albumin Human 250 ml @ 0 mls/hr ONCE ONCE IV Last administered on 08/20/25at 00:00; Start 08/20/25 at 00:00; Stop 08/20/25 at 23:58; Status DC Lidocaine HCl/ Dextrose 250 ml @ 0 mls/hr PROTOCOL IV; Start 08/21/25 at 00:00; Stop 09/20/25 at 00:00 Albumin Human 250 ml @ As Directed STK-MED ONCE IV; Start 08/21/25 at 00:03; Stop 08/21/25 at 00:05; Status DC Vancomycin HCl 250 ml @ 125 mls/hr Q8H IV; Start 08/21/25 at 08:00; Stop 08/21/25 at 06:28; Status DC Vancomycin HCl 250 ml @ 125 mls/hr Q8H IV Last administered on 08/21/25at 08:15; Start 08/21/25 at 06:30; Stop 08/21/25 at 08:35; Status DC Vancomycin HCl 250 ml @ 125 mls/hr Q8H IV Last administered on 08/24/25at 09:32; Start 08/21/25 at 16:30; Stop 08/24/25 at 16:54; Status DC Furosemide 20 mg Q12H IV Last administered on 08/22/25at 11:53; Start 08/21/25 at 11:30; Stop 08/22/25 at 14:17; Status DC Acetaminophen 1,000 mg Q6H6 IVPB Last administered on 09/04/25at 07:06; Start 08/21/25 at 12:00; Stop 09/04/25 at 10:41; Status DC Heparin Sodium/ Dextrose 250 ml @ 0 mls/hr PROTOCOL IV Last administered on 08/28/25at 15:28; Start 08/21/25 at 11:30; Stop 09/03/25 at 06:32; Status DC Iron Sucrose 200 mg DAILY IV Last administered on 08/22/25at 11:53; Start 08/21/25 at 13:00; Stop 08/23/25 at 09:43; Status DC Amiodarone HCl 200 mg BID PO Last administered on 08/28/25at 20:25; Start 08/22/25 at 09:00; Stop 08/29/25 at 21:00; Status DC Famotidine 20 mg BID PO Last administered on 09/06/25at 09:59; Start 08/22/25 at 09:00; Stop 09/21/25 at 08:59 Insulin Human Regular INSULIN SLIDING SCAL... ACHS SQ Last administered on 08/22/25at 20:58; Start 08/22/25 at 11:30; Stop 08/22/25 at 21:32; Status DC Furosemide 40 mg Q12H IV; Start 08/22/25 at 21:00; Stop 08/22/25 at 14:32; Status DC Furosemide 20 mg Q12H IV Last administered on 08/23/25at 09:50; Start 08/22/25 at 21:00; Stop 08/23/25 at 11:37; Status DC Insulin Human Regular INSULIN SLIDING SCAL... ACHS SQ Last administered on 09/06/25at 06:48; Start 08/23/25 at 07:30; Stop 09/22/25 at 07:29 Insulin Glargine 15 units DAILY SQ Last administered on 08/27/25at 08:35; Start 08/23/25 at 09:00; Stop 08/28/25 at 07:20; Status DC Iron Sucrose 200 mg DAILY IV Last administered on 08/25/25at 09:25; Start 08/23/25 at 09:00; Stop 08/26/25 at 08:57; Status DC Furosemide 40 mg Q12H IV Last administered on 08/29/25at 22:38; Start 08/23/25 at 11:30; Stop 08/30/25 at 11:08; Status DC Gabapentin 300 mg TID PO Last administered on 09/06/25at 13:11; Start 08/23/25 at 14:00; Stop 09/22/25 at 13:59 Vancomycin HCl 250 ml @ 125 mls/hr Q12H IV Last administered on 08/26/25at 11:47; Start 08/24/25 at 23:00; Stop 08/26/25 at 21:47; Status DC Tramadol HCl 25 mg Q6H PRN PO Last administered on 08/27/25at 03:12; Start 08/26/25 at 11:00; Stop 08/31/25 at 10:59; Status DC Tramadol HCl 50 mg Q6H PRN PO Last administered on 08/29/25at 05:39; Start 08/26/25 at 11:00; Stop 08/31/25 at 10:59; Status DC Benzocaine 1 each Q4H PRN MM Last administered on 09/04/25at 00:35; Start 08/26/25 at 11:30; Stop 09/25/25 at 11:29 Midodrine 5 mg Q6H6 PO Last administered on 09/01/25at 06:57; Start 08/26/25 at 16:00; Stop 09/01/25 at 10:53; Status DC Phenylephrine HCl 100 mg/Sodium Chloride 250 ml @ 0 mls/hr PROTOCOL IV; Start 08/26/25 at 20:30; Stop 09/25/25 at 20:29 Insulin Human Regular 3 unit TIDAC SQ Last administered on 08/27/25at 16:47; Start 08/27/25 at 07:30; Stop 08/27/25 at 20:56; Status DC Insulin Human Regular 6 unit TIDAC SQ Last administered on 09/06/25at 17:08; Start 08/28/25 at 07:30; Stop 09/27/25 at 07:29 Insulin Glargine 20 units DAILY SQ Last administered on 09/05/25at 08:06; Start 08/28/25 at 09:00; Stop 09/06/25 at 09:44; Status DC Lactulose 20 gm ONCE ONCE PO Last administered on 08/28/25at 09:14; Start 08/28/25 at 09:00; Stop 08/28/25 at 09:01; Status DC Cefazolin Sodium 1 gm STK-MED ONCE .ROUTE; Start 08/29/25 at 08:56; Stop 08/29/25 at 08:56; Status DC Heparin Sodium/ Sodium Chloride 500 ml @ As Directed STK-MED ONCE IV; Start 08/29/25 at 08:56; Stop 08/29/25 at 08:57; Status DC Midazolam HCl 2 mg STK-MED ONCE .ROUTE; Start 08/29/25 at 10:06; Stop 08/29/25 at 10:07; Status DC Lidocaine HCl 100 mg STK-MED ONCE .ROUTE; Start 08/29/25 at 10:15; Stop 08/29/25 at 10:15; Status DC Propofol 200 mg STK-MED ONCE IV; Start 08/29/25 at 10:15; Stop 08/29/25 at 10:15; Status DC Rocuronium [place] 50 mg STK-MED ONCE .ROUTE; Start 08/29/25 at 10:37; Stop 08/29/25 at 10:37; Status DC Midazolam HCl 2 mg STK-MED ONCE .ROUTE; Start 08/29/25 at 10:46; Stop 08/29/25 at 10:47; Status DC Cefazolin Sodium 2 gm STK-MED ONCE IVPB Last administered on 08/29/25at 10:05; Start 08/29/25 at 10:05; Stop 08/29/25 at 11:24; Status DC Fentanyl Citrate 250 mcg STK-MED ONCE IV; Start 08/29/25 at 11:21; Stop 08/29/25 at 11:22; Status DC Furosemide 40 mg ONCE ONCE IV Last administered on 08/30/25at 10:11; Start 08/30/25 at 10:00; Stop 08/30/25 at 10:01; Status DC Piperacillin Sod/ Tazobactam Sod 3.375 gm Q8H IV Last administered on 09/06/25at 09:55; Start 08/30/25 at 10:00; Stop 09/09/25 at 09:59 Furosemide 100 mg/ Sodium Chloride 100 ml @ 0 mls/hr PROTOCOL IV Last administered on 09/02/25at 09:12; Start 08/30/25 at 11:30; Stop 09/02/25 at 10:56; Status DC Lidocaine/ Prilocaine 1 appl ONCE TP Last administered on 08/31/25at 13:59; Start 08/31/25 at 13:30; Stop 09/01/25 at 07:33; Status DC Wound Care/ Dressing Products 1 gm BID TP Last administered on 08/31/25at 21:26; Start 08/31/25 at 21:00; Stop 09/01/25 at 07:35; Status DC Wound Care/ Dressing Products 1 GM BID TP Last administered on 09/06/25at 09:59; Start 09/01/25 at 09:00; Stop 09/30/25 at 20:59 Midodrine 10 mg Q6H6 PO Last administered on 09/02/25at 12:32; Start 09/01/25 at 12:00; Stop 09/02/25 at 16:25; Status DC Midodrine 5 mg ONCE ONCE PO Last administered on 09/01/25at 11:03; Start 09/01/25 at 11:00; Stop 09/01/25 at 11:01; Status DC Potassium Chloride 100 ml @ 50 mls/hr ONCE ONCE IV Last administered on 09/02/25at 12:34; Start 09/02/25 at 10:00; Stop 09/02/25 at 11:59; Status DC Magnesium Sulfate 50 ml @ 0 mls/hr PROTOCOL IV Last administered on 09/05/25at 14:36; Start 09/02/25 at 10:00; Stop 10/02/25 at 09:59 Furosemide 40 mg Q12H IV Last administered on 09/04/25at 21:35; Start 09/02/25 at 11:00; Stop 09/05/25 at 08:55; Status DC Midodrine 15 mg Q6H6 PO Last administered on 09/06/25at 17:05; Start 09/02/25 at 18:00; Stop 10/02/25 at 17:59 Enoxaparin Sodium 40 mg DAILY SQ Last administered on 09/03/25at 08:22; Start 09/03/25 at 09:00; Stop 09/04/25 at 10:33; Status DC Vancomycin HCl 1 gm ONCALL ONCE IV; Start 09/03/25 at 10:00; Stop 09/03/25 at 10:01; Status DC Sodium Bicarbonate 50 ml @ As Directed STK-MED ONCE .ROUTE; Start 09/04/25 at 07:11; Stop 09/04/25 at 07:11; Status DC Lidocaine HCl 50 ml STK-MED ONCE .ROUTE; Start 09/04/25 at 07:11; Stop 09/04/25 at 07:11; Status DC Iohexol 50 ml STK-MED ONCE IV; Start 09/04/25 at 07:11; Stop 09/04/25 at 07:11; Status DC Bupivacaine HCl 2.5 mg STK-MED ONCE IJ; Start 09/04/25 at 07:11; Stop 09/04/25 at 07:11; Status DC Vancomycin HCl 500 ml @ As Directed STK-MED ONCE IV; Start 09/04/25 at 07:11; Stop 09/04/25 at 07:12; Status DC Vancomycin HCl 250 ml @ As Directed STK-MED ONCE IV; Start 09/04/25 at 07:24; Stop 09/04/25 at 07:24; Status DC Fentanyl Citrate 100 mcg STK-MED ONCE .ROUTE; Start 09/04/25 at 08:04; Stop 09/04/25 at 08:04; Status DC Midazolam HCl 2 mg STK-MED ONCE .ROUTE; Start 09/04/25 at 08:04; Stop 09/04/25 at 08:04; Status DC Midazolam HCl 2 mg STK-MED ONCE .ROUTE; Start 09/04/25 at 08:09; Stop 09/04/25 at 08:09; Status DC Midazolam HCl 2 mg STK-MED ONCE .ROUTE; Start 09/04/25 at 09:01; Stop 09/04/25 at 09:01; Status DC Fentanyl Citrate 100 mcg STK-MED ONCE .ROUTE; Start 09/04/25 at 09:38; Stop 09/04/25 at 09:38; Status DC Acetaminophen 1,000 mg Q6H PRN PO Last administered on 09/06/25at 01:20; Start 09/04/25 at 10:30; Stop 10/04/25 at 10:29 Acetaminophen/ Codeine Phosphate 2 tab Q4H PRN PO; Start 09/04/25 at 10:30; Stop 09/04/25 at 23:33; Status DC Acetaminophen/ Codeine Phosphate 1 tab Q4H PRN PO Last administered on 09/04/25at 14:27; Start 09/04/25 at 11:00; Stop 09/04/25 at 23:33; Status DC Tramadol HCl 25 mg Q6H PRN PO; Start 09/04/25 at 23:30; Stop 09/09/25 at 23:29 Tramadol HCl 50 mg Q6H PRN PO Last administered on 09/06/25at 13:12; Start 09/04/25 at 23:30; Stop 09/09/25 at 23:29 Metoprolol Succinate 12.5 mg DAILY PO Last administered on 09/06/25at 09:57; Start 09/05/25 at 09:00; Stop 10/05/25 at 08:59 Furosemide 20 mg BID@,17 PO Last administered on 09/06/25at 17:05; Start 09/05/25 at 09:00; Stop 10/05/25 at 08:59 Insulin Glargine 24 units DAILY SQ; Start 09/07/25 at 09:00; Stop 10/07/25 at 08:59 Calcium Carbonate 500 tab TID PRN PO Last administered on 09/06/25at 11:30; Start 09/06/25 at 11:30; Stop 10/06/25 at 11:29 CAROLYN BYRNE MD Sep 06, 2025 17:29
[2025-09-07] VITALS (8 sets, daily range): BP systolic 103–126; BP diastolic 46–77; PULSE 64–102; RESP 17–18; TEMP 97.6–98.9; O2SAT 94–98
--- NOTE | 2025-09-07 01:05 | HMCIMG ---
EXAM: CR Chest, 1 View CLINICAL HISTORY: Post-CABG and pacemaker placement (PPM) COMPARISON: CR Chest dated 09/05/2025 at 04:45 EDT. FINDINGS: LUNGS: Interval improvement in interstitial and alveolar pulmonary edema compared to prior study. No new focal consolidation or pneumothorax. PLEURAL SPACES: Moderate left-sided pleural effusion persists. Previously seen right-sided pleural effusion has resolved. MEDIASTINUM / HEART / DEVICES: Stable post-CABG status with median sternotomy wires in situ. Cardiomegaly unchanged. External cardiac pacemaker present with leads in expected position; no hardware-related complication. Mediastinal contours stable. BONES: No acute or aggressive osseous abnormality. IMPRESSION: * Interval improvement in pulmonary interstitial and alveolar edema compared with 09/05/2025. * Resolved right pleural effusion; persistent moderate left pleural effusion. * Stable cardiomegaly and post-CABG changes. * External cardiac pacemaker in satisfactory position without complication. /[place]
[2025-09-07 04:18] LABS: IMMATURE GRANULOCYTE ABSOLUTE 0.05 K/uL (0-1); NUCLEATED RED BLOOD CELLS 0.0 % (0.0-0.19); PLATELET COUNT (AUTO) 345 K/uL (130-400); RED BLOOD CELL COUNT(AUTO) 3.31 MIL/uL (4.00-5.50); RED CELL DISTRIBUTION WIDTH 17.1 % (11.0-15.5); WHITE BLOOD COUNT (AUTO) 8.9 K/uL (4.8-10.8)
[2025-09-07 04:32] LABS: ASPARTATE AMINOTRANSFERASE 41.0 U/L (10-37); CREATININE 0.7 mg/dL (0.5-1.0); GLOMERULAR FILTR. RATE CALC 100.0 mL/min (>90); GLUCOSE,RANDOM 196.0 mg/dL (70-105); SODIUM SERUM 135.0 mmol/L (136-145); TOTAL PROTEIN, SERUM 7.7 g/dL (6.0-8.3); UREA NITROGEN, BLOOD 14.0 mg/dL (7-18)
[2025-09-07] MEDS ORDERED: MAGNESIUM 2GM PREMIX 50ML 50 ML IV SCH (09:30)
--- NOTE | 2025-09-07 10:33 | PN ---
[facility] PROGRESS NOTE Date Patient Seen: Sep 07, 2025 Time of Visit: 10:33 Supervising Physician: Dr. 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 AAOX3. Currently on room air. Able to voice needs and follow commands. States she wants to get out of bed and work with PT. Denies any chest pain, abdominal pain, nausea or vomiting. Complains of left knee pain. No family at bedside. Dr. Fotser reviewed all radiological studies. Plan: [facility] will sign off case, please re-consult if needed. Follow CT surgeon recs Continue midodrine PT to eval and treat Follow I&Os Continue furosemide 20 mg p.o. b.i.d. Monitor respiratory status closely, maintain O2 sats above 92% ABX: IV Zosyn for a total of 7 days Continue physical therapy Continue IS q.2 hours Further management per primary team REVIEW OF SYSTEMS: 12 point ROS reviewed with patient. Pertinent positives mentioned above. Otherwise negative. PHYSICAL EXAM: GENERAL: alert, weak, awake oriented x 3 HEENT: moist mucosa NECK: Supple, no JVD, trachea midline LUNGS: clear breath sounds bilaterally. No wheezes HEART: Normal S1 and S2, without murmurs ABD: Abdomen soft, nontender. Bowel sounds present EXT: No clubbing cyanosis or edema, rt knee pain and swelling NEURO: Alert and oriented to person, follows commands Vital Signs (last 8hr) Date Time Temp Pulse Resp B/P (MAP) Pulse Ox O2 Delivery O2 Flow Rate FiO2 09/07/25 08:00 99.0 64 17 126/77 96 Room Air 09/07/25 04:38 84 18 N/Cannula Low lpm 21 09/07/25 03:42 97.5 84 18 113/62 96 Room Air LABS: Hematology Labs: Test 09/07/25 03:48 Range/Units White Blood Count 8.9 4.8-10.8 K/uL Red Blood Count 3.31 L 4.00-5.50 MIL/uL Hemoglobin 10.0 L 12.0-16.0 g/dL Hematocrit 31.6 L 36-48 % Mean Corpuscular Volume 95.5 79-99 fL Mean Corpuscular Hemoglobin 30.2 27.0-33.0 pg Mean Corpuscular Hemoglobin Concent 31.6 L 32.0-36.0 g/dL Red Cell Distribution Width 17.1 H 11.0-15.5 % Platelet Count 345 130-400 K/uL Mean Platelet Volume 10.2 7.5-10.5 fL Immature Granulocyte % (Auto) 0.6 0-1 % Neutrophils (%) (Auto) 61.1 40.0-77.0 % Lymphocytes (%) (Auto) 20.4 L 21.0-51.0 % Monocytes (%) (Auto) 11.0 3.0-13.0 % Eosinophils (%) (Auto) 6.3 0.0-8.0 % Basophils (%) (Auto) 0.6 0.0-5.0 % Neutrophils # (Auto) 5.4 1.8-7.7 K/uL Lymphocytes # (Auto) 1.8 1.0-4.8 K/uL Monocytes # (Auto) 1.0 0.1-1.0 K/uL Eosinophils # (Auto) 0.56 0.00-0.70 K/uL Basophils # (Auto) 0.05 0.00-0.20 K/uL Absolute Immature Granulocyte (auto 0.05 0-1 K/uL Nucleated Red Blood Cells 0.0 0.0-0.19 % Chemistry Labs: Test 09/07/25 09:23 09/07/25 03:48 Range/Units Whole Blood Glucose 214 H 70-110 MG/DL Sodium Level 135 L 136-145 mmol/L Potassium Level 3.9 3.5-5.1 mmol/L Chloride Level 98 L 101-111 mmol/L Carbon Dioxide Level 28 21-32 mmol/L Blood Urea Nitrogen 14 7-18 mg/dL Creatinine 0.7 0.5-1.0 mg/dL Glomerular Filtration Rate Calc 100 >90 mL/min Random Glucose 196 H 70-105 mg/dL Total Calcium 8.6 8.5-10.1 mg/dL Magnesium Level 1.70 L 1.80-2.40 mg/dL Total Bilirubin 0.3 0.2-1.0 mg/dL Aspartate Amino Transf (AST/SGOT) 41 H 10-37 U/L Alanine Aminotransferase (ALT/SGPT) 24 12-78 U/L Alkaline Phosphatase 190 H 50-136 U/L Total Protein 7.7 6.0-8.3 g/dL Albumin 1.9 L 3.5-5.0 g/dL DIAGNOSTICS / RADIOLOGY RESULTS: NA PLAN NEURO: Minimize central acting medications as possible. Maintain fall precautions, adequate lighting during the day PULMONARY: Supplemental 02 as needed. Maintain aspiration precautions at all times CARDIOVASCULAR: Follow hemodynamics. Vital signs per facility protocol GI & NUTRITION: Continue with nutritional support. Continue stool softeners and laxatives as needed. KIDNEYS & ELECTROLYTES: Strict monitoring of intake, output and overall fluid balance. Avoid nephrotoxic medications to the extent possible. Medications to be dosed according to renal function. Monitor electrolytes and replace as needed ENDOCRINE: Maintain blood glucose between 100-180 at all times. Hypoglycemia protocol in place INFECTIOUS DISEASE: Trend temperature, WBC and procalcitonin level Follow cultures, deescalate antibiotics as soon as possible. Panculture if new onset fever ONCOLOGY/HEMATOLOGY/COAGULATION: Monitor for s/s of bleeding Monitor hemoglobin, coagulation studies as needed SKIN: Pressure ulcer prevention per facility protocol Specialty mattress ORTHO/REHAB: Continue PT/OT Prophylaxis: Continue GI and DVT prophylaxis Code Status: Full Resuscitation Disposition: MARTHA MICHELE Sep 07, 2025 10:33
--- NOTE | 2025-09-07 12:54 | PN ---
[facility] PROGRESS NOTE Date of Service: Sep 07, 2025 Time of Service: 12:53 SUBJECTIVE: This is a 60-year-old female with underlying history of obesity, coronary artery disease, poorly controlled type 2 diabetes mellitus, history of anemia, history of cocaine use, tobacco use disorder, history of CVA in 2008, who presented to the ER for further evaluation of severe substernal chest pain and shortness of breadth. Patient reports having history of cocaine use with last use of cocaine yesterday. She reports having severe substernal chest pain that started today in it has been associated with dizziness, and generalized malaise. Pain is 10/10 in severity. Patient denies any syncope or fall. She has been having lightheadedness with ambulation. She has not been able to follow up with Cardiology as outpatient. She has a previous history of abnormal CT coronary angiography when she was hospitalized in 04/2025 and she was treated medically. With regards to type 2 diabetes mellitus, she reports being on metformin as out patient. On presentation to the hospital, patient was noted to be hypotensive with blood pressure of 80/60 with heart rate of 40 with EKG showing complete heart block. Labs [place] [address], hemoglobin 12.4, platelet count of 174553. BMP showed sodium of 133, potassium 4.8, chloride of 99, BUN of 21, creatinine 1.0, blood glucose of 403, [place] [address]. Chest x-ray showed no acute infiltrates. Patient will be admitted for further management of cardiogenic shock, NSTEMI, complete heart block with history of poorly controlled type 2 diabetes mellitus. Patient will be emergently taken to the laboratory chemical assistant for cardiac catheterization/ PCI and tentative plan for MCS support. Patient will be admitted to intensive care unit and she remains critically ill. 08/14 patient remains critically ill requiring Impella and dopamine support. UDS has demonstrated benzos and cocaine 08/15 patient remains on Impella 08/16 patient appears to be resting comfortably in bed. She remains on Impella and dopamine support. She reports she would like to be bathed and wants her hair combed significant and she is feeling better 08/17 patient is on GI soft diet tolerating well. She remains on Impella support 08/18 patient is resting comfortably in bed. She remains on Impella. Tolerating oral intake. 08/19 hemoglobin dropped to 6.5 from 7.0-7.5 yesterday. I agree with transfusing 1 unit PRBC. Patient remains on Impella. Patient is resting comfortably in bed. 08/20 patient is resting comfortably in bed. She remains on Impella support pending recovery for CABG. 08/21 patient underwent CABG x3 yesterday, no complications reported patient remains on Impella the patient is on norepinephrine, amiodarone, dopamine, insulin drip 08/22 postop day 2. From CABG x3. Patient does awaken to verbal stimulation and states she has some chest pain and slight shortness for breath she feels the pain as incisional from her open heart procedure. He is on p.o. amiodarone and being weaned off norepinephrine. 08/23 postop day 3 from CABG x3. Patient is in bed visiting with her son at the bedside. She states she has no shortness for breath, she does have some incisional chest discomfort, no nausea or vomiting or diarrhea. She is off nore pinephrine drip and remains with the Impella assist. 08/24 patient is seen and examined at bedside, discussed with the RN, no acute events overnight, remains with the Impella support, postoperative day four from CABG x3. She is awake, following commands. Off vasopressors. Remains on heparin drip and sodium bicarbonate drip. Continue to follow critical Care and Cardiothoracic input and recommendation. 08/25 PATIENT IS SEEN AND EXAMINED AT BEDSIDE, DISCUSSED WITH THE RN, NO ACUTE EVENTS OVERNIGHT, PATIENT FOLLOWING COMMANDS, SHE REMAINS WITH THE IMPELLA SUPPORT, CHEST TUBE IN PLACE, POSTOPERATIVE DAY FIVE, STATUS POST CABG. CUR RENTLY OFF PRESSORS, ON HEPARIN DRIP. CONTINUE TO FOLLOW CRITICAL CARE AND CARDIOTHORACIC INPUT AND RECOMMENDATIONS. POSSIBLE REMOVAL OF IMPELLA SUPPORT TODAY. 08/26 patient is seen and examined at bedside, discussed with the RN, no acute events overnight, remains with the Impella support, postoperative day four from CABG x6. She is awake, following commands. Off vasopressors. Remains on heparin drip, continue with chest tube in place, continue to follow Cardiothoracic input and recommendation. 08/27 patient is seen and examined at bedside, case discussed with the RN, no acute events overnight, patient awake, following commands, still with the Impella support, status post CABG. No chest pain, shortness shortness for breath, no nausea, no vomiting. Continue with chest tube in place. BP 132/74, afebrile, saturating 99% 4 L nasal cannula. CBC with a hemoglobin 9.0, hematocrit 28.1, WBC 12.2, with a platelet count of 152. Sodium 140, potassium 4.0, BUN of 12, creatinine 0.6, initially 2.10. Cardiology input noted and appreciated, echocardiogram ordered, we will follow report. Continue to follow Cardiothoracic input and recommendation. 08/28 patient is seen and examined at bedside, case discussed with the RN, no acute events overnight, patient remains admitted to the ICU, the time of my visit, awake, following command, NPO, she is scheduled to be taken to the operating room today for removal of Impella support by cardio thoracic surgeons, we will continue to follow input and recommendation. Limited 2D echo performed yesterday shows left ventricular cavity size is normal, Impella device measuring 5.6 cm into LV. Left ventricular ejection fraction 55-60%, no pericardial effusion. 08/29 patient is seen and examined at bedside, case discussed with the RN, no acute events overnight, patient remains admitted to the ICU, the time of my visit, awake, following command, NPO, she is scheduled to be taken to the operating room today for removal of Impella support by cardio thoracic surgeons, we will continue to follow input and recommendation. Limited 2D echo performed yesterday shows left ventricular cavity size is normal, Impella device measuring 5.6 cm into LV. Left ventricular ejection fraction 55-60%, no pericardial effusion. 08/30 patient is seen and examined at bedside, discussed with the RN, no acute events overnight, status post interval removal of Impella and placement of pe ricardial patch in the operating room by Cardiothoracic surgeon, 08/29/2025, tolerated the procedure well. Patient will remain admitted to the ICU, we will continue to follow Cardiothoracic input and recommendation. Follow a.m. labs. Continue Lasix, follow intake and output, daily chest x-ray, continue heparin drip, follow critical care input and recommendation. Patient completed 10 days of Rocephin and a dose of vancomycin. Completed three days of Ancef. 08/31 patient is seen and examined at bedside, discussed with the RN, no acute events overnight, patient remains admitted to the ICU, now she is intubated, mechanical ventilation, however awake, following commands, on low-dose Precedex, also on Lasix drip, Levophed drip, patient is status post interval removal of Impella support device per Cardiothoracic surgeon. Tolerated well. Hemoglobin today 9.1, hematocrit 27.4, ABG pH 7.48, pCO2 40, PO2 95.8, bicarb 29.1, chest x-ray pending. Continue to follow Cardiothoracic input recommendation, for continue care input and recommendation terms of extubation, wean off Levophed. 09/01 patient is seen and examined at bedside, remains admitted to the ICU, status post interval extubation. She is alert and oriented, following commands, remains on Levophed and Lasix drip. Chest tube in place. BP 113/46, hemoglobin 9.9, hematocrit 30.3, WBC 12.0, platelet count of 218. Sodium 138, potassium 3.9, BUN of 13, creatinine 0.9. Discussed with the RN, pending EP evaluation for possible pacemaker. We will follow, continue to follow Cardiothoracic input and recommendation. Critical care input noted and appreciated. Follow a.m. labs. 09/02 patient is seen and examined at bedside, case discussed with the RN, remains admitted to the ICU, at the time of my visit she is alert oriented x3, remains on Lasix Levophed getting IV antibiotics. Oriented patient is status post coronary artery bypass grafting, status post right femoral artery repair. Cardiothoracic input noted and appreciated, input has been noted, Impella has be en successfully unit, patient will remain on low-dose Levophed, Lasix, IV antibiotics, continue chest tube in place. Patient supplemental oxygen via nasal cannula at 2 L to keep oxygen saturation greater than 92%. Continue to follow critical care input recommendation, follow a.m. labs. 09/03 patient is seen and examined at bedside, case discussed with the RN, no acute events overnight, the patient remains admitted to the ICU, awake, following commands, currently off Levophed, maintaining good blood pressure support. Currently on IV antibiotics. Hemoglobin 9.3, hematocrit 28.9, platelet count of 301. Patient is status post interval removal of chest tubes. Remains on aspirin, atorvastatin, furosemide. Continue midodrine. Doppler of the lower extremities negative for DVT. Patient complained on my pain to the right leg, we will request arterial Doppler of the right leg, status post Impella removal. Continue to follow EP input recommendation in terms of pacemaker. 09/04 patient is seen and examined at bedside, case discussed with the RN, no acute events overnight, the patient remains admitted to the ICU, awake, following commands, currently off Levophed, maintaining good blood pressure support. Currently on IV antibiotics. Remains on aspirin, atorvastatin, furosemide. Continue midodrine. Doppler of the lower extremities negative for DVT. Patient complained on my pain to the right leg, we will request arterial Doppler of the right leg, status post Impella removal. Scheduled for pacemaker placement by environmental air specialist Dr Lawson today. 09/05 Patient underwent pacemaker placement yesterday, no complications reported. Patient is off IV pressors. Vital signs are stable within normal limits 09/06 patient remains afebrile, vital signs within normal limit sugars are almost at goal. We will increase Lantus to 24 unit hs 09/07 patient is seen and examined at bedside, case discussed with the RN, no acute events overnight, the patient has been downgraded to the PCU, awake, following commands, currently off Levophed, maintaining good blood pressure. Currently on IV antibiotics. Remains on aspirin, atorvastatin, furosemide. Continue midodrine. Doppler of the lower extremities negative for DVT. Patient underwent successful pacemaker implantation 09/04/2024, tolerated the procedure well. Continue to follow Cardiology input and recommendation. We will have Physical therapy to evaluate the patient, we will discuss discharge plan with case management. REVIEW OF SYSTEMS CONSTITUTIONAL: generalized fatigue, malaise NEUROLOGICAL: Denies headache, amaurosis fugax, motor weakness, sensory deficit, vertigo/spinning sensation, gait abnormalities, or tremors. ENT: No hearing loss, otalgia, otorrhea, rhinitis, rhinorrhea, hoarseness, or sore throat. CARDIOVASCULAR: Mild incisional chest pain, no shortness breath PULMONARY: Denies any shortness of breath, cough, phlegm/sputum, hemoptysis, pleuritic chest pain. SLEEP: Denies morning headaches, daytime somnolence or napping. Denies difficulty falling asleep, staying asleep, waking from sleep. Denies knowledge of snoring. GASTROINTESTINAL: No nausea, Denies any type of dysphagia to either liquids or solids. Denies vomiting, pyrosis, early satiety, abdominal pain, diarrhea, constipation, or changes in stool consistency or caliber. Denies coffee-ground emesis, hematemesis, hematochezia, or melanotic stools. GENITOURINARY: Denies frequency, urgency, nocturia, hematuria or incontinence (Storage/Irritative symptoms.) Low urinary stream, straining to void, urinary intermittency or hesitancy, splitting of the voiding stream, terminal dribbling. ENDOCRINOLOGIC: Denies polyuria, polydipsia, polyphagia or heat/cold intolerances. HEMATOLOGIC: Denies thrombophilia/previous clots, or coagulopathy/bleeding disorders. ONCOLOGIC: Denies personal history of malignancy. DERMATOLOGIC: Denies rashes or pruritus. PSYCHIATRIC: Denies any suicidal or homicidal ideation. Denies hallucinations. PHYSICAL EXAM GENERAL APPEARANCE: Extubated, awake, following commands. NEUROLOGICAL: Cranial nerves II-XII grossly intact. Motor is 5/5 in bilateral upper and lower extremities proximal to distal. No sensory deficits. HEENT: Face is symmetric. Pupils are equal and reactive. Extraocular movements are intact. NECK: Supple. No JVD. No thyromegaly. No submental, submandibular, pre- /postauricular, occipital or supraclavicular lymphadenopathy. CHEST: Normal chest expansion. No Telemetry. LUNGS: minimal crackles noted of the bilateral lung bases CARDIOVASCULAR: Regular. S1 and S2 normal. No appreciable rubs, murmurs or gallops. ABDOMEN: Soft, nontender, and nondistended. There is no rebound, voluntary guarding, or rigidity. : Deferred. No Coombs. EXTREMITIES: trace edema noted of the bilateral lower extremities SKIN: No skin breakdown. Vital Signs (last 8hr) Date Time Temp Pulse Resp B/P (MAP) Pulse Ox O2 Delivery O2 Flow Rate FiO2 09/07/25 11:57 97.7 102 18 110/46 97 Room Air 09/07/25 08:00 99.0 64 17 126/77 96 Room Air LABS: Laboratory: Test 09/07/25 11:36 09/07/25 03:48 Range/Units Whole Blood Glucose 216 H 70-110 MG/DL White Blood Count 8.9 4.8-10.8 K/uL Red Blood Count 3.31 L 4.00-5.50 MIL/uL Hemoglobin 10.0 L 12.0-16.0 g/dL Hematocrit 31.6 L 36-48 % Mean Corpuscular Volume 95.5 79-99 fL Mean Corpuscular Hemoglobin 30.2 27.0-33.0 pg Mean Corpuscular Hemoglobin Concent 31.6 L 32.0-36.0 g/dL Red Cell Distribution Width 17.1 H 11.0-15.5 % Platelet Count 345 130-400 K/uL Mean Platelet Volume 10.2 7.5-10.5 fL Immature Granulocyte % (Auto) 0.6 0-1 % Neutrophils (%) (Auto) 61.1 40.0-77.0 % Lymphocytes (%) (Auto) 20.4 L 21.0-51.0 % Monocytes (%) (Auto) 11.0 3.0-13.0 % Eosinophils (%) (Auto) 6.3 0.0-8.0 % Basophils (%) (Auto) 0.6 0.0-5.0 % Neutrophils # (Auto) 5.4 1.8-7.7 K/uL Lymphocytes # (Auto) 1.8 1.0-4.8 K/uL Monocytes # (Auto) 1.0 0.1-1.0 K/uL Eosinophils # (Auto) 0.56 0.00-0.70 K/uL Basophils # (Auto) 0.05 0.00-0.20 K/uL Absolute Immature Granulocyte (auto 0.05 0-1 K/uL Nucleated Red Blood Cells 0.0 0.0-0.19 % Sodium Level 135 L 136-145 mmol/L Potassium Level 3.9 3.5-5.1 mmol/L Chloride Level 98 L 101-111 mmol/L Carbon Dioxide Level 28 21-32 mmol/L Blood Urea Nitrogen 14 7-18 mg/dL Creatinine 0.7 0.5-1.0 mg/dL Glomerular Filtration Rate Calc 100 >90 mL/min Random Glucose 196 H 70-105 mg/dL Total Calcium 8.6 8.5-10.1 mg/dL Magnesium Level 1.70 L 1.80-2.40 mg/dL Total Bilirubin 0.3 0.2-1.0 mg/dL Aspartate Amino Transf (AST/SGOT) 41 H 10-37 U/L Alanine Aminotransferase (ALT/SGPT) 24 12-78 U/L Alkaline Phosphatase 190 H 50-136 U/L Total Protein 7.7 6.0-8.3 g/dL Albumin 1.9 L 3.5-5.0 g/dL Current Medications Medications (Trade) Dose Ordered Sig/Elmer Route PRN Reason Start Time Stop Time Status Last Admin Dose Admin Acetaminophen (TYLenol 325MG TAB) 650 mg Q4H PRN PO Temp >38.3C(AFTER EXTUBATION) 08/20/25 17:00 09/04/25 10:40 DC Acetaminophen (TYLenol 325MG TAB) 650 mg Q6H PRN PO MILD PAIN (1-3) 08/13/25 16:30 09/04/25 10:40 DC 09/04/25 03:33 650 MG Acetaminophen (TYLenol 500MG TAB) 500 mg Q6H PRN PO TEMP < 101.1 AND/OR HEADACHE 08/14/25 14:30 09/13/25 14:29 08/26/25 10:41 500 MG Acetaminophen (TYLenol 500MG TAB) 1,000 mg Q6H PRN PO MILD PAIN (1-3) 09/04/25 10:30 10/04/25 10:29 09/06/25 01:20 1,000 MG Acetaminophen (TYLenol 650MG SUPPOSITORY) 650 mg Q4H PRN RC Temp >38.3C WHILE INTUBATED 08/20/25 17:00 09/19/25 16:59 Acetaminophen (acetaMINOPHEN 1,000MG/100ML) 1,000 mg Q6H6 IVPB 08/21/25 12:00 09/04/25 10:41 DC 09/04/25 07:06 1,000 MG Acetaminophen/ Codeine Phosphate (TYLenol-coDEINE TAB) 1 tab Q4H PRN PO MODERATE PAIN (4-6) 09/04/25 11:00 09/04/25 23:33 DC 09/04/25 14:27 1 TAB Acetaminophen/ Codeine Phosphate (TYLenol-coDEINE TAB) 2 tab Q4H PRN PO SEVERE PAIN (7-10) 09/04/25 10:30 09/04/25 23:33 DC Albumin Human 50 ml @ 0 mls/hr BID IV 08/18/25 09:00 08/23/25 08:59 DC 08/22/25 20:56 100 MLS/HR Albumin Human 250 ml @ 0 mls/hr AD PRN IV IF HEMODYNAMICALLY UNSTABLE 08/20/25 17:00 08/20/25 22:46 DC 08/20/25 22:46 0 MLS/HR Aminocaproic Acid 19922 mg/Sodium Chloride 310 ml @ 25 mls/hr AD IV 08/20/25 17:00 08/21/25 05:23 DC Aminocaproic Acid 02771 mg/Sodium Chloride 480 ml @ 0 mls/hr AD PRN IV BLEEDING CONTROL 08/20/25 08:00 09/02/25 07:55 DC Aminocaproic Acid 58076 mg/Sodium Chloride 480 ml @ 0 mls/hr AD PRN IV BLEEDING CONTROL 08/20/25 09:00 08/20/25 09:03 DC Amiodarone HCl (pacERONE 200MG) 200 mg BID PO 08/22/25 09:00 08/29/25 21:00 DC 08/28/25 20:25 200 MG Amiodarone HCl 360 mg/Dextrose 207.2 ml @ 33.3 mls/hr AD IV 08/20/25 21:00 08/20/25 21:05 DC Amiodarone HCl 540 mg/Dextrose 310.8 ml @ 16.7 mls/hr [id number] IV 08/21/25 03:00 08/27/25 06:20 DC 08/21/25 20:12 16.7 MLS/HR Amiodarone HCL/ Dextrose 207.2 ml @ 33.3 mls/hr AD IV 08/20/25 21:30 08/21/25 10:49 DC 08/20/25 21:24 33.3 MLS/HR Aspirin (Aspirin 81mg Chew Tab) 81 mg DAILY PO 08/14/25 09:00 09/13/25 08:59 09/07/25 09:28 81 MG Atorvastatin Calcium (LIPItor 40MG) 40 mg HS PO 08/13/25 21:00 09/12/25 20:59 09/06/25 20:45 40 MG Benzocaine (Cepacol Sore Throat Lozenge) 1 each Q4H PRN MM SORE THROAT 08/26/25 11:30 09/25/25 11:29 09/04/25 00:35 1 EACH Bisacodyl (DulcoLAX) 10 mg DAILY RC 08/17/25 09:00 08/20/25 08:59 DC 08/18/25 07:58 10 MG Calcium Carbonate (Tums 500 Mg Chew Tab) 500 tab QID PRN PO HEARTBURN 08/19/25 12:00 08/20/25 16:32 DC 08/20/25 05:10 1 TAB Calcium Carbonate (Tums 500 Mg Chew Tab) 500 tab TID PRN PO GI GAS 09/06/25 11:30 10/06/25 11:29 09/07/25 09:40 1 TAB Calcium Gluconate 1 gm/Sodium Chloride 60 ml @ 200 mls/hr AD PRN IV HYPOCALCEMIA 08/20/25 17:00 09/19/25 16:59 08/30/25 03:43 200 MLS/HR Cefazolin Sodium (Ancef) 2 gm ONCALL IVP 08/19/25 19:30 08/21/25 08:36 DC 08/20/25 16:30 2 GM Cefazolin Sodium (Ancef) 2 gm Q8H IVPB 08/20/25 22:00 08/21/25 14:01 DC 08/21/25 13:45 2 GM Ceftriaxone Sodium (Rocephin 2gm Inj) 2 gm Q24H IVPB 08/14/25 11:30 08/24/25 11:29 DC 08/23/25 12:16 2 GM Chlordiazepoxide HCl (LIBrium 25 MG CAP) 25 mg Q2H PRN PO ALCOHOL WITHDRAWAL PROTOCOL 08/14/25 14:30 08/20/25 16:32 DC 08/16/25 23:38 25 MG Chlordiazepoxide HCl (LIBrium 25 MG CAP) 50 mg Q1H PRN PO ALCOHOL WITHDRAWAL PROTOCOL 08/14/25 14:30 08/20/25 16:32 DC Dexmedetomidine/ Sodium Chloride (PRECEdex 400MCG/ 100ML-NS) 400 mcg PROTOCOL IV 08/20/25 20:30 09/19/25 20:29 08/31/25 06:18 400 MCG Dextrose (D50w) 50 ml AD PRN IV HYPOGLYCEMIA PROTOCOL 08/20/25 17:00 09/19/25 16:59 Dextrose (D50w) 50 ml AD PRN IV HYPOGLYCEMIA PROTOCOL 08/13/25 20:00 08/20/25 22:03 DC Diphenhydramine HCl (BENAdryl INJ) 25 mg ONCE PRN IV ITCHING 08/15/25 23:00 08/17/25 22:59 DC Docusate Sodium (COLace 100MG CAP) 100 mg BID PRN PO CONSTIPATION 08/14/25 11:00 09/13/25 10:59 09/04/25 11:31 100 MG Dopamine HCl/ Dextrose 250 ml @ 0 mls/hr PROTOCOL IV 08/13/25 16:00 09/12/25 15:59 08/16/25 16:41 3 MLS/HR Enoxaparin Sodium (Lovenox) 40 mg DAILY SQ 09/03/25 09:00 09/04/25 10:33 DC 09/03/25 08:22 40 MG Epinephrine HCl 10 mg/Sodium Chloride 250 ml @ 14.091 mls/ hr AD PRN IV POST-OP CARDIOVASCULAR ORDERS 08/20/25 17:00 08/21/25 10:49 DC Epinephrine HCl 10 mg/Sodium Chloride 250 ml @ 0 mls/hr AD PRN IV TITRATE 08/20/25 08:00 09/19/25 07:59 08/26/25 16:56 0 MLS/HR Epinephrine HCl 10 mg/Sodium Chloride 250 ml @ 0 mls/hr AD PRN IV TITRATE 08/20/25 09:00 08/20/25 09:03 DC Famotidine (Pepcid 20mg Vial) 20 mg BID IV 08/20/25 21:00 08/22/25 08:20 DC 08/21/25 20:17 20 MG Famotidine (Pepcid 20mg Tab) 20 mg BID PO 08/22/25 09:00 09/21/25 08:59 09/07/25 09:26 20 MG Folic Acid (FOLic ACID 1 MG TABLET) 1 mg DAILY PO 08/15/25 09:00 08/17/25 09:01 DC 08/17/25 07:46 1 MG Furosemide (LASix 20MG TAB) 20 mg BID@09,17 PO 09/05/25 09:00 10/05/25 08:59 09/07/25 09:28 20 MG Furosemide (LASix 20MG VIAL) 20 mg Q12H IV 08/21/25 11:30 08/22/25 14:17 DC 08/22/25 11:53 20 MG Furosemide (LASix 20MG VIAL) 20 mg Q12H IV 08/22/25 21:00 08/23/25 11:37 DC 08/23/25 09:50 20 MG Furosemide (LASix 20MG VIAL) 40 mg Q12H IV 08/22/25 21:00 08/22/25 14:32 DC Furosemide (LASix 40MG VIAL) 40 mg Q12H IV 08/23/25 11:30 08/30/25 11:08 DC 08/29/25 22:38 40 MG Furosemide (LASix 40MG VIAL) 40 mg Q12H IV 09/02/25 11:00 09/05/25 08:55 DC 09/04/25 21:35 40 MG Furosemide 100 mg/ Sodium Chloride 100 ml @ 0 mls/hr PROTOCOL IV 08/30/25 11:30 09/02/25 10:56 DC 09/02/25 09:12 10 MLS/HR Gabapentin (NEURontin 300 MG CAP) 300 mg TID PO 08/23/25 14:00 09/22/25 13:59 09/07/25 09:26 300 MG Glucagon (Glucagon 1mg Kit) 1 mg AD PRN IM HYPOGLYCEMIA PROTOCOL 08/20/25 17:00 09/19/25 16:59 Glucagon (Glucagon 1mg Kit) 1 mg AD PRN IM HYPOGLYCEMIA PROTOCOL 08/13/25 20:00 08/21/25 10:49 DC Heparin Sodium (Porcine) (HEParin 5,000 UNIT VIAL) *calculation based on ACTUAL B... AD PRN IV HEPARIN PROTOCOL 08/13/25 16:30 08/20/25 16:32 DC 08/17/25 04:46 3,175 UNIT Heparin Sodium/ Dextrose 250 ml @ 0 mls/hr PROTOCOL IV 08/21/25 11:30 09/03/25 06:32 DC 08/28/25 15:28 10.54 MLS/HR Heparin Sodium/ Dextrose 250 ml @ 0 mls/hr Q6H IV 08/13/25 16:30 08/20/25 16:32 DC 08/19/25 22:03 11.78 MLS/HR Insulin Glargine (LANtus 100 UNITS/ML 10 ML VIAL) 5 units BID@0730,2100 SQ 08/16/25 21:00 08/17/25 09:31 DC 08/16/25 21:21 5 UNITS Insulin Glargine (LANtus 100 UNITS/ML 10 ML VIAL) 10 units HS SQ 08/13/25 21:00 08/14/25 06:16 DC 08/13/25 20:21 10 UNITS Insulin Glargine (LANtus 100 UNITS/ML 10 ML VIAL) 15 units DAILY 08/23/25 09:00 08/28/25 07:20 DC 08/27/25 08:35 15 UNITS Insulin Glargine (LANtus 100 UNITS/ML 10 ML VIAL) 20 units DAILY 08/14/25 09:00 08/15/25 07:24 DC 08/14/25 08:01 20 UNITS Insulin Glargine (LANtus 100 UNITS/ML 10 ML VIAL) 20 units DAILY 08/28/25 09:00 09/06/25 09:44 DC 09/05/25 08:06 20 UNITS Insulin Glargine (LANtus 100 UNITS/ML 10 ML VIAL) 24 units DAILY 09/07/25 09:00 10/07/25 08:59 09/07/25 09:31 24 UNITS Insulin Glargine (LANtus 100 UNITS/ML 10 ML VIAL) 30 units DAILY 08/15/25 09:00 08/16/25 07:19 DC 08/15/25 08:28 30 UNITS Insulin Glargine (LANtus 100 UNITS/ML 10 ML VIAL) 35 units DAILY 08/16/25 09:00 08/19/25 07:35 DC 08/18/25 07:59 35 UNITS Insulin Glargine (LANtus 100 UNITS/ML 10 ML VIAL) 42 units DAILY 08/19/25 09:00 08/20/25 06:22 DC 08/19/25 09:40 42 UNITS Insulin Glargine (LANtus 100 UNITS/ML 10 ML VIAL) 45 units DAILY 08/20/25 09:00 08/20/25 16:32 DC Insulin Human Lispro (HumaLOG LISpro 100 UNIT/ML 3ML) INSULIN SLIDING SCAL... ACHS 08/16/25 21:00 08/17/25 09:31 DC Insulin Human Regular (humuLIN R 100 UNIT/ML 3ML) 3 unit TIDAC SQ 08/27/25 07:30 08/27/25 20:56 DC 08/27/25 16:47 3 UNIT Insulin Human Regular (humuLIN R 100 UNIT/ML 3ML) 5 unit TIDAC SQ 08/14/25 17:00 08/15/25 07:24 DC 08/15/25 07:03 5 UNIT Insulin Human Regular (humuLIN R 100 UNIT/ML 3ML) 6 unit TIDAC SQ 08/28/25 07:30 09/27/25 07:29 09/07/25 12:48 6 UNIT Insulin Human Regular (humuLIN R 100 UNIT/ML 3ML) 8 unit TIDAC SQ 08/15/25 07:30 08/15/25 22:46 DC 08/15/25 16:02 8 UNIT Insulin Human Regular (humuLIN R 100 UNIT/ML 3ML) 10 unit TIDAC SQ 08/16/25 07:30 08/17/25 21:12 DC 08/17/25 16:09 10 UNIT Insulin Human Regular (humuLIN R 100 UNIT/ML 3ML) 12 unit TIDAC SQ 08/18/25 07:30 08/18/25 20:19 DC 08/18/25 16:39 12 UNIT Insulin Human Regular (humuLIN R 100 UNIT/ML 3ML) 16 unit TIDAC SQ 08/19/25 07:30 08/20/25 06:22 DC 08/19/25 16:47 16 UNIT Insulin Human Regular (humuLIN R 100 UNIT/ML 3ML) 17 unit TIDAC SQ 08/20/25 07:30 08/20/25 16:32 DC Insulin Human Regular (humuLIN R 100 UNIT/ML 3ML) INSULIN SLIDING SCAL... ACHS SQ 08/17/25 16:30 08/20/25 16:32 DC 08/19/25 21:31 8 UNIT Insulin Human Regular (humuLIN R 100 UNIT/ML 3ML) INSULIN SLIDING SCAL... ACHS SQ 08/22/25 11:30 08/22/25 21:32 DC 08/22/25 20:58 3 UNIT Insulin Human Regular (humuLIN R 100 UNIT/ML 3ML) INSULIN SLIDING SCAL... ACHS SQ 08/23/25 07:30 09/22/25 07:29 09/07/25 12:47 4 UNIT Insulin Human Regular (humuLIN R 100 UNIT/ML 3ML) INSULIN SLIDING SCAL... ACHS SQ 08/13/25 16:30 08/16/25 20:46 DC 08/16/25 20:01 4 UNIT Insulin Human Regular 100 unit/ Sodium Chloride 100 ml @ 0 mls/hr AD IV 08/20/25 17:00 08/22/25 16:59 DC 08/21/25 15:00 5 MLS/HR Iron Sucrose (VenoFER) 200 mg DAILY IV 08/21/25 13:00 08/23/25 09:43 DC 08/22/25 11:53 200 MG Iron Sucrose (VenoFER) 200 mg DAILY IV 08/23/25 09:00 08/26/25 08:57 DC 08/25/25 09:25 200 MG Lidocaine (Lidocaine Patch 4%) 1 each DAILY TP 08/19/25 09:00 09/18/25 08:59 09/07/25 09:26 1 EACH Lidocaine HCl/ Dextrose 250 ml @ 0 mls/hr PROTOCOL IV 08/21/25 00:00 09/20/25 00:00 Lidocaine/ Prilocaine (Emla) 1 appl ONCE TP 08/31/25 13:30 09/01/25 07:33 DC 08/31/25 13:59 1 APPL Magnesium Sulfate 50 ml @ 12.5 mls/hr AD PRN IV MAG LEVEL LESS THAN 2.0 08/20/25 17:00 09/02/25 09:48 DC 09/02/25 09:19 12.5 MLS/HR Magnesium Sulfate 50 ml @ 0 mls/hr PROTOCOL IV 09/02/25 10:00 10/02/25 09:59 09/07/25 05:01 1.7 MLS/HR Magnesium Sulfate 50 ml @ 0 mls/hr PROTOCOL IV 08/13/25 16:30 08/21/25 10:49 DC 08/21/25 05:58 25 MLS/HR Magnesium Sulfate 50 ml @ 0 mls/hr PROTOCOL IV 09/07/25 09:30 09/07/25 09:04 DC Metoprolol Succinate (TopROL XL) 12.5 mg DAILY PO 09/05/25 09:00 10/05/25 08:59 09/07/25 09:26 12.5 MG Midodrine (PROAMatine 5 MG TABLET) 5 mg Q6H6 PO 08/26/25 16:00 09/01/25 10:53 DC 09/01/25 06:57 5 MG Midodrine (PROAMatine 5 MG TABLET) 10 mg Q6H6 PO 09/01/25 12:00 09/02/25 16:25 DC 09/02/25 12:32 10 MG Midodrine (PROAMatine 5 MG TABLET) 15 mg Q6H6 PO 09/02/25 18:00 10/02/25 17:59 09/07/25 12:43 15 MG Morphine Sulfate (morPHINE 2MG SYG) 0.5 mg Q2H PRN IV MODERATE PAIN (4-6) 08/20/25 17:00 08/20/25 18:07 DC Morphine Sulfate (morPHINE 2MG SYG) 2 mg Q6H PRN IVP SEVERE PAIN (7-10) 08/19/25 18:00 08/20/25 16:32 DC 08/19/25 17:50 2 MG Morphine Sulfate (morPHINE 4MG SYG) 0.5 mg Q2H PRN IV MODERATE PAIN (4-6) 08/20/25 18:30 08/21/25 16:59 DC Morphine Sulfate (morPHINE 4MG SYG) 1 mg Q2H PRN IV SEVERE PAIN (7-10) 08/20/25 17:00 08/21/25 16:59 DC Morphine Sulfate (morPHINE 4MG SYG) 2 mg Q6H PRN IVP SEVERE PAIN (7-10) 08/14/25 09:30 08/19/25 12:29 DC 08/19/25 12:22 2 MG Multivitamins Therapeutic (Multivitamin Tablet) 1 tab DAILY PO 08/15/25 09:00 09/14/25 08:59 09/07/25 09:26 1 TAB Nitroglycerin/ Dextrose 0 ml @ 0 mls/hr AD IV 08/20/25 17:00 08/23/25 16:59 DC Nitroglycerin/ Dextrose 250 ml @ 0 mls/hr PROTOCOL IV 08/20/25 03:30 08/20/25 16:32 DC 08/20/25 03:12 1.5 MLS/HR Norepinephrine 250 ml @ 0 mls/hr PROTOCOL IV 08/13/25 15:30 08/20/25 08:31 DC Norepinephrine Bitartrate 250 ml @ 0 mls/hr AD PRN IV TITRATE 08/20/25 08:00 09/19/25 07:59 09/01/25 23:29 6.18 MLS/HR Norepinephrine Bitartrate 250 ml @ 0 mls/hr AD PRN IV TITRATE 08/20/25 09:00 08/20/25 09:03 DC Norepinephrine Bitartrate 8 mg/ Dextrose 250 ml @ 0 mls/hr AD PRN IV POST-OP CARDIOVASCULAR ORDERS 08/20/25 17:00 08/21/25 10:49 DC Ondansetron HCl (zoFRAN 4MG INJ) 4 mg Q4H PRN IV NAUSEA 08/14/25 14:30 08/20/25 16:32 DC 08/14/25 14:17 4 MG Ondansetron HCl (zoFRAN 4MG INJ) 4 mg Q6H PRN IV NAUSEA/VOMITING 08/20/25 17:00 09/19/25 16:59 08/29/25 12:47 4 MG Ondansetron HCl (zoFRAN 4MG INJ) 4 mg Q6H PRN IVP NAUSEA/VOMITING 08/13/25 16:30 08/14/25 14:08 DC Pantoprazole Sodium (PROTonix 40MG INJ) 40 mg Q12H IVP 08/17/25 16:30 08/20/25 16:32 DC 08/20/25 03:53 40 MG Pantoprazole Sodium (PROTonix 40MG INJ) 40 mg Q24H IVP 08/13/25 16:30 08/17/25 11:10 DC 08/16/25 16:07 40 MG Pharmacy Profile Note (Pharmacy Communication) 1 each PROTOCOL PRN MISC ETOH Withdrawal Score changes 08/14/25 14:30 08/14/25 14:08 DC Phenylephrine HCl 100 mg/Sodium Chloride 250 ml @ 0 mls/hr PROTOCOL IV 08/26/25 20:30 09/25/25 20:29 Piperacillin Sod/ Tazobactam Sod (Zosyn 3.375gm+NS 50ml) 3.375 gm Q8H IV 08/30/25 10:00 09/09/25 09:59 09/07/25 09:25 3.375 GM Polyethylene Glycol (MIRalax 3350 17 GM POWD.PACK) 17 gm DAILY PO 08/15/25 09:00 09/14/25 08:59 09/05/25 08:05 17 GM Potassium Phosphate 250 ml @ 42 mls/hr AD PRN IV LOW PHOS LEVEL 08/20/25 17:00 09/19/25 16:59 Potassium Chloride 100 ml @ 100 mls/hr AD PRN IV HYPOKALEMIA 08/20/25 17:00 09/19/25 16:59 09/06/25 04:59 100 MLS/HR Potassium Chloride 100 ml @ 100 mls/hr AD PRN IV POTASSIUM PROTOCOL 08/13/25 16:30 08/20/25 16:32 DC 08/16/25 16:07 100 MLS/HR Potassium Chloride (K-Dur/Klor-Con 20meq) 20 meq AD PRN PO POTASSIUM PROTOCOL 08/13/25 16:30 08/20/25 16:32 DC 08/15/25 08:23 20 MEQ Potassium Chloride (KCl 10% Elixir 20meq/15ml) 20 meq AD PRN PO POTASSIUM PROTOCOL 08/13/25 16:30 08/20/25 16:32 DC Promethazine HCl (Phenergan) 25 mg Q6H PRN PO NAUSEA 08/14/25 14:30 08/20/25 16:32 DC Propofol 100 ml @ 0 mls/hr AD PRN IV SEDATION 08/20/25 17:00 08/24/25 17:00 DC Sodium Bicarbonate 25 meq/Dextrose 1,000 ml @ 0 mls/hr Q0M IV 08/14/25 00:30 09/13/25 00:29 08/28/25 16:29 14 MLS/HR Sodium Bicarbonate 25 meq/Dextrose 1,000 ml @ 0 mls/hr Q0M IVP 08/14/25 00:30 08/14/25 00:15 DC Sodium Bicarbonate (Sodium Bicarb 50meq 50ml Vial) 50 meq AD PRN IV OTHER[SEE DOSING INSTRUCTIONS] 08/20/25 17:00 08/23/25 16:59 DC 08/21/25 01:19 50 MEQ Sodium Chloride 500 ml @ 500 mls/hr Q1H IV 08/20/25 00:33 08/20/25 03:16 DC 08/20/25 00:53 500 MLS/HR Sodium Chloride 500 ml @ 0 mls/hr AD IV 08/20/25 17:00 09/19/25 16:59 Sodium Chloride 1,000 ml @ 10 mls/hr ONCE IV 08/20/25 17:00 08/21/25 16:59 DC 08/20/25 22:31 10 MLS/HR Sodium Chloride (NS Flush 10ml) 10 ml Q8H PRN IVP IV LINE FLUSH 08/20/25 17:00 09/19/25 16:59 Thiamine HCl (Vitamin B-1) 300 mg DAILY IV 08/15/25 09:00 08/17/25 09:01 DC 08/17/25 07:46 300 MG Ticagrelor (BRILinta) 90 mg BID PO 08/14/25 09:00 08/14/25 21:19 DC 08/14/25 20:09 90 MG Tramadol HCl (UltRAM) 25 mg Q6H PRN PO MODERATE PAIN (4-6) 08/20/25 17:00 08/25/25 16:59 DC Tramadol HCl (UltRAM) 25 mg Q6H PRN PO MODERATE PAIN (4-6) 08/26/25 11:00 08/31/25 10:59 DC 08/27/25 03:12 25 MG Tramadol HCl (UltRAM) 25 mg Q6H PRN PO moderate pain 4-6 09/04/25 23:30 09/09/25 23:29 Tramadol HCl (UltRAM) 50 mg Q6H PRN PO SEVERE PAIN (7-10) 08/20/25 17:00 08/25/25 16:59 DC 08/25/25 09:24 50 MG Tramadol HCl (UltRAM) 50 mg Q6H PRN PO SEVERE PAIN (7-10) 08/26/25 11:00 08/31/25 10:59 DC 08/29/25 05:39 50 MG Tramadol HCl (UltRAM) 50 mg Q6H PRN PO SEVERE PAIN (7-10) 09/04/25 23:30 09/09/25 23:29 09/07/25 09:40 50 MG Vancomycin HCl 250 ml @ 125 mls/hr Q12H IV 08/18/25 09:00 08/19/25 20:54 DC 08/19/25 09:39 125 MLS/HR Vancomycin HCl 250 ml @ 125 mls/hr Q12H IV 08/24/25 23:00 08/26/25 21:47 DC 08/26/25 11:47 125 MLS/HR Vancomycin HCl 250 ml @ 125 mls/hr Q8H IV 08/19/25 21:30 08/21/25 00:23 DC 08/20/25 22:26 125 MLS/HR Vancomycin HCl 250 ml @ 125 mls/hr Q8H IV 08/21/25 06:30 08/21/25 08:35 DC 08/21/25 08:15 125 MLS/HR Vancomycin HCl 250 ml @ 125 mls/hr Q8H IV 08/21/25 08:00 08/21/25 06:28 DC Vancomycin HCl 250 ml @ 125 mls/hr Q8H IV 08/21/25 16:30 08/24/25 16:54 DC 08/24/25 09:32 125 MLS/HR Vancomycin HCl (Vancomycin Protocol) 1 each AD IV 08/17/25 22:00 08/26/25 21:47 DC Wound Care/ Dressing Products (Venelex Ointment) 1 GM BID TP 09/01/25 09:00 09/30/25 20:59 09/07/25 09:28 1 GM Wound Care/ Dressing Products (Venelex Ointment) 1 gm BID TP 08/31/25 21:00 09/01/25 07:35 DC 08/31/25 21:26 1 GM DIAGNOSTICS / RADIOLOGY: [ ] ASSESSMENT: Cardiogenic shock with lactic acidosis, POA NSTEMI/ACS, POA Complete heart block, POA History of multivessel coronary artery disease, POA History of cocaine use disorder, POA Severe nonketotic hyperglycemia, POA History of to poorly controlled type 2 diabetes mellitus, POA Lactic acidosis, POA History of anemia, POA History of gastritis, POA History of hypertension, POA History of PTSD/anxiety, POA Obesity, POA Medical noncompliance, POA PLAN: patient is seen and examined at bedside, case discussed with the RN, no acute events overnight, the patient has been downgraded to the PCU, awake, following commands, currently off Levophed, maintaining good blood pressure. Currently on IV antibiotics. Remains on aspirin, atorvastatin, furosemide. Continue midodrine. Doppler of the lower extremities negative for DVT. Patient underwent successful pacemaker implantation 09/04/2024, tolerated the procedure well. Continue to follow Cardiology input and recommendation. We will have Physical therapy to evaluate the patient, we will discuss discharge plan with case management. NEURO: MINIMIZE CENTRAL ACTING MEDICATIONS POSSIBLE. FALL PRECAUTIONS. WELL LIGHTED ROOM THROUGH THE DAY AND MINIMIZE INTERRUPTIONS THROUGH THE NIGHT TO PREVENT ACUTE DELIRIUM. PULMONARY: SUPPLEMENTAL 02 NEEDED OUT OF BED TO CHAIR TOLERATED MAINTAIN ASPIRATION PRECAUTIONS AT ALL TIMES Follow up with Pulmonary/critical Care Medicine, appreciate assistance CARDIOVASCULAR: FOLLOW HEMODYNAMICS. VITAL SIGNS PER FACILITY PROTOCOL Follow up with Cardiology, appreciate assistance -transitioned to oral diuretics -start low dose beta santos Follow up with EP Cardiology appreciate assistance -follow up in clinic in 7-10 days GI & NUTRITION: CONTINUE NUTRITIONAL SUPPORT ASPIRATIONS PRECAUTIONS PROKINETIC AGENTS AND LAXATIVES NEEDED KIDNEYS & ELECTROLYTES: STRICT MONITORING OF INTAKE AND OUTPUT DAILY WEIGHTS AVOID NEPHROTOXIC AGENTS MONITOR ELECTROLYTES AND REPLACE NEEDED GOAL URINE OUTPUT OF 30ML/HR OR 0.5ML/KG/HR MEDICATIONS TO BE DOSED ACCORDING TO RENAL FUNCTION. AVOID CONTRAST IF POSSIBLE ENDOCRINE: Increase Lantus to 24 units HS Continue regular insulin 6 units t.i.d. a.c. Continue regular insulin sliding scale MAINTAIN BLOOD GLUCOSE BETWEEN 100-180 AT ALL TIMES. INSULIN SLIDING SCALE FOR BLOOD GLUCOSE MANAGEMENT HYPOGLYCEMIA AND HYPERGLYCEMIA PROTOCOL IN PLACE INFECTIOUS DISEASE: TREND TEMPERATURE, WBC AND PROCALCITONIN LEVEL FOLLOW CULTURES, DEESCALATE ANTIBIOTICS SOON POSSIBLE. PANCULTURE IF NEW ONSET FEVER HEMATOLOGY & COAGULATION: MONITOR H&H. KEEP HGB > 7 TRANSFUSE 1 UNIT OF PRBC FOR HGB < 7 TRANSFUSE 1 PACK OF PLATELETS OF PLATELETS < 20, 000 WATCH FOR ANY SIGNS AND SYMPTOMS OF BLEEDING SKIN: PRESSURE ULCER PREVENTION PER FACILITY PROTOCOL SPECIALTY MATTRESS NEEDED ORTHO/REHAB CONTINUE PT/OT PRN: MEDICATIONS TYLENOL 650 MG PO EVERY 4 HRS FOR FEVER ZOFRAN 4 MG IV EVERY 6 HRS FOR N/V HYDRALAZINE 5 MG IV EVERY 4 HRS SYSTOLIC PRESSURE > 160 BOWEL REGIMENT: LACTULOSE 20 GM PO BID PRN CONSTIPATION SUPPORTIVE MEASURES: CONTINUE GI AND DVT PROPHYLAXIS DISPOSITION: PENDING IMPROVEMENT IN CLINICAL CONDITION ALL QUESTIONS ANSWERED TIME SPENT: > 35 MIN GEE MARTIN MD Sep 07, 2025 12:54
--- NOTE | 2025-09-07 13:30 | CCATH ---
PROBLEM LIST: 1. Non-transmural myocardial infarction on presentation with cardiogenic shock. 2. Complete heart block. 3. Escape rhythm with left bundle branch block morphology. 4. Occlusion of the right coronary artery at 100% with failed attempt at PCI on this admission. 5. Status post Impella support by right common femoral approach and transvenous temporary pacemaker of the right common femoral vein. 6. Status post coronary artery bypass graft surgery x 3 with left atrial appendage ligation, 08/20/2025. 7. Ejection fraction of 45-50% with inferior wall hypokinesis on 09/01. 8. Nonsustained polymorphic ventricular tachycardia. 9. Remote history of CVA. 10. Diabetes mellitus, type 2 with poor control. 11. Tobacco dependence. 12. Dyslipidemia. 13. Noncompliance with medications or followup. 14. Angioedema with lisinopril therapy in the past. 15. Cocaine abuse. 16. Angioedema with lisinopril in the past. This patient appears to be comfortable and in no apparent distress. She is resting in bed with no active complaints at this time. The patient's overall assessment reveals stable vital signs. Blood pressure is in the 100-115 systolic range. She is saturating at 96% on room air. She is currently afebrile with a heart rate in the 80s. The patient is currently maintained on insulin, calcium, furosemide, metoprolol at a low dose, midodrine for marginal pressures, Zosyn, gabapentin, insulin, multivitamins, MiraLax, baby aspirin, Colace, atorvastatin, and additional p.r.n. medications. The patient's laboratory studies this morning revealed a white count of 8.9, H and H of 10.0 and 31.6 respectively. Platelet count is 345,000. The chemistries revealed a sodium of 135, potassium 3.9, chloride 98, CO2 is 28, BUN 14, creatinine 0.7 with a GFR of 100. The patient's magnesium is 1.7, being addressed per protocol. The liver enzymes revealed minimal elevation of AST and elevation of alkaline phosphatase, likely due to the patient's cardiogenic shock and will be trended. Albumin is low at 1.9 consistent with significant protein malnutrition. The patient will be continued on the current supportive measures. Long-term prognosis remains guarded given the patient's prior history of noncompliance and multi-drug abuse. She has been counseled extensively. VIC: 09/07/2025 06:58 AM TID: [id number] RECEIPT: [id number]
[2025-09-07 18:24] LABS: COVID19 (SARS ANTIGEN RAPID) PRESUMPTIVE NEGATIVE (NEGATIVE); INFLUENZA TYPE A Negative For Type A (NEGATIVE); INFLUENZA TYPE B Negative For Type B (NEGATIVE)
--- NOTE | 2025-09-07 20:07 | PN ---
Endocrinology progress note DOS: 09/07/25 subjective: Home diabetic regimen: metformin 500 mg bid Hba1c 10.7% glucose runs less than 180 mg/dl. patient is s/p CABG Non ST-elevation myocardial infarction in the setting of cocaine abuse complicated by cardiogenic shock requiring Impella support Severe multivessel CAD with acute occlusion of the right coronary artery unable to be revascularized percutaneously with preop ejection fraction of 50% by echo status post aortocoronary bypass graft surgery with a BRO graft to the LAD saphenous graft to the obtuse marginal artery and saphenous graft to the 2nd diagonal artery with a clipping of the left atrial appendage Ventricular standstill after anesthesia induction PAST MEDICAL HISTORY: Coronary artery disease with history of abnormal coronary CT angiography, gastritis, anemia, cocaine use disorder, obesity, PTSD, anxiety disorder, history of NSTEMI in 04/2025, history of CVA in 2008 PAST SURGICAL HISTORY: History of ventral hernia repair 2008, hx of cholecystectomy, hx of C Section PAST SOCIAL HISTORY: Denies active alcohol consumption, intermittently smokes cigarettes as well as has been using cocaine chronically FAMILY HISTORY: Reports family history of heart disease Home medications: Patient does not have list of home medications, family will be bringing list of home medications to be updated Allergies: Patient has allergic reaction to lisinopril Coded Allergies: No Known Drug Allergies (Verified Allergy, Unknown, 05/04/22) lisinopril (Verified Allergy, Unknown, 05/04/22) DIAGNOSTICS / RADIOLOGY: SERVICE 1425 REASON: cp ORDERING PHYSICIAN: ZORA OCHOA MD PROCEDURE: CXR1VW - CHEST 1VW EXAM: CR Chest, 1 View. CLINICAL HISTORY: COMPARISON: 07/08/25 FINDINGS: LUNGS: The lungs show no infiltrate or other acute finding. PLEURAL SPACES: No pleural effusion or pneumothorax. MEDIASTINUM: The cardiomediastinal silhouette is within normal limits. BONES: No aggressive appearing osseous lesion seen. IMPRESSION: No acute cardiopulmonary pathology is evident. /[place] DICTATED BY: BELKIS KURTZ MD DATE: 08/13/251731 ELECTRONICALLY SIGNED BY: BELKIS KURTZ MD DATE: 08/13/251731 ASSESSMENT: uncontrolled DM-2 Home diabetic regimen: metformin 500 mg bid Hba1c 10.7% glucose runs less than 180 mg/dl. off insulin drip now and on low dose ssi and low dose lantus insulin and regular insulin.. Cardiogenic shock with lactic acidosis, POA cardiology following, s/p CABG procedure. NSTEMI/ACS, POA Complete heart block, POA History of multivessel coronary artery disease, POA History of cocaine use disorder, POA Lactic acidosis, POA History of anemia, POA History of gastritis, POA History of hypertension, POA History of PTSD/anxiety, POA Obesity, POA Medical noncompliance, POA PLAN: continue Lantus 24 units daily and adjust for fasting glucose. continue Regular insulin 6 units three times before meals continue medium dose sliding scale insulin. Monitor glucose q x 6 hourly. Continue carb consistent diet. Keep glucose less than 180 mg/dl. Patient will need insulin at discharge. Vitals/Labs Vital Signs Date Time Temp Pulse Resp B/P (MAP) Pulse Ox O2 Delivery O2 Flow Rate FiO2 09/07/25 19:41 98.6 87 18 103/63 94 Room Air 09/07/25 09:25 0 21 Laboratory Tests 09/07/25 03:48 Medications Current Medications Ondansetron HCl 4 mg ONCE ONCE IVP; Start 08/13/25 at 14:30; Stop 08/13/25 at 14:52; Status DC Sodium Chloride 500 ml @ 0 mls/hr ONCE ONCE IV Last administered on 08/13/25at 15:00; Start 08/13/25 at 14:30; Stop 08/13/25 at 14:31; Status DC Heparin Sodium (Porcine) *calculation based on ACTUAL B... AD PRN IV Last administered on 08/17/25at 04:46; Start 08/13/25 at 16:30; Stop 08/20/25 at 16:32; Status DC Heparin Sodium/ Dextrose 250 ml @ 0 mls/hr Q6H IV Last administered on 08/19/25at 22:03; Start 08/13/25 at 16:30; Stop 08/20/25 at 16:32; Status DC Norepinephrine 250 ml @ 0 mls/hr PROTOCOL IV; Start 08/13/25 at 15:30; Stop 08/20/25 at 08:31; Status DC Dopamine HCl/ Dextrose 250 ml @ As Directed STK-MED ONCE IV; Start 08/13/25 at 15:33; Stop 08/13/25 at 15:33; Status DC Aspirin 325 mg STK-MED ONCE .ROUTE; Start 08/13/25 at 15:34; Stop 08/13/25 at 15:33; Status DC Ticagrelor 180 mg ONCE ONCE PO Last administered on 08/13/25at 16:16; Start 08/13/25 at 16:00; Stop 08/13/25 at 16:01; Status DC Morphine Sulfate 1 mg ONCE ONCE IVP Last administered on 08/13/25at 16:23; Start 08/13/25 at 16:00; Stop 08/13/25 at 16:01; Status DC Ticagrelor 90 mg STK-MED ONCE .ROUTE; Start 08/13/25 at 15:50; Stop 08/13/25 at 15:50; Status DC Dopamine HCl/ Dextrose 250 ml @ 0 mls/hr PROTOCOL IV Last administered on 08/16/25at 16:41; Start 08/13/25 at 16:00; Stop 09/12/25 at 15:59 Aspirin 325 mg ONCE ONCE PO Last administered on 08/13/25at 16:15; Start 08/13/25 at 16:00; Stop 08/13/25 at 16:01; Status DC Lidocaine HCl 20 ml STK-MED ONCE .ROUTE; Start 08/13/25 at 16:12; Stop 08/13/25 at 16:12; Status DC Iohexol 35,000 mg STK-MED ONCE IV; Start 08/13/25 at 16:12; Stop 08/13/25 at 16:12; Status DC Heparin Sodium (Porcine) 10,000 unit STK-MED ONCE .ROUTE; Start 08/13/25 at 16:12; Stop 08/13/25 at 16:12; Status DC Nicardipine HCl 25 mg STK-MED ONCE IV; Start 08/13/25 at 16:12; Stop 08/13/25 at 16:12; Status DC Heparin Sodium/ Sodium Chloride 1,000 ml @ As Directed STK-MED ONCE IV; Start 08/13/25 at 16:12; Stop 08/13/25 at 16:12; Status DC Nitroglycerin 50 mg STK-MED ONCE .ROUTE; Start 08/13/25 at 16:12; Stop 08/13/25 at 16:12; Status DC Pantoprazole Sodium 40 mg Q24H IVP Last administered on 08/16/25at 16:07; Start 08/13/25 at 16:30; Stop 08/17/25 at 11:10; Status DC Insulin Human Regular INSULIN SLIDING SCAL... ACHS SQ Last administered on 08/16/25at 20:01; Start 08/13/25 at 16:30; Stop 08/16/25 at 20:46; Status DC Insulin Human Regular 5 unit ONCE ONCE IV; Start 08/13/25 at 16:30; Stop 08/13/25 at 16:31; Status DC Fentanyl Citrate 100 mcg STK-MED ONCE .ROUTE; Start 08/13/25 at 16:26; Stop 08/13/25 at 16:26; Status DC Midazolam HCl 2 mg STK-MED ONCE .ROUTE; Start 08/13/25 at 16:27; Stop 08/13/25 at 16:27; Status DC Acetaminophen 650 mg Q6H PRN PO Last administered on 09/04/25at 03:33; Start 08/13/25 at 16:30; Stop 09/04/25 at 10:40; Status DC Ondansetron HCl 4 mg Q6H PRN IVP; Start 08/13/25 at 16:30; Stop 08/14/25 at 14:08; Status DC Potassium Chloride 100 ml @ 100 mls/hr AD PRN IV Last administered on 08/16/25at 16:07; Start 08/13/25 at 16:30; Stop 08/20/25 at 16:32; Status DC Potassium Chloride 20 meq AD PRN PO; Start 08/13/25 at 16:30; Stop 08/20/25 at 16:32; Status DC Potassium Chloride 20 meq AD PRN PO Last administered on 08/15/25at 08:23; Start 08/13/25 at 16:30; Stop 08/20/25 at 16:32; Status DC Magnesium Sulfate 50 ml @ 0 mls/hr PROTOCOL IV Last administered on 08/21/25at 05:58; Start 08/13/25 at 16:30; Stop 08/21/25 at 10:49; Status DC Atorvastatin Calcium 40 mg HS PO Last administered on 09/06/25at 20:45; Start 08/13/25 at 21:00; Stop 09/12/25 at 20:59 Heparin Sodium/ Sodium Chloride 500 ml @ As Directed STK-MED ONCE IV; Start 08/13/25 at 17:14; Stop 08/13/25 at 17:14; Status DC Heparin Sodium (Porcine) 10,000 unit STK-MED ONCE .ROUTE; Start 08/13/25 at 18:03; Stop 08/13/25 at 18:03; Status DC Aspirin 81 mg DAILY PO Last administered on 09/07/25at 09:28; Start 08/14/25 at 09:00; Stop 09/13/25 at 08:59 Insulin Glargine 10 units HS SQ Last administered on 08/13/25at 20:21; Start 08/13/25 at 21:00; Stop 08/14/25 at 06:16; Status DC Dextrose 50 ml AD PRN IV; Start 08/13/25 at 20:00; Stop 08/20/25 at 22:03; Status DC Glucagon 1 mg AD PRN IM; Start 08/13/25 at 20:00; Stop 08/21/25 at 10:49; Status DC Sodium Bicarbonate 25 meq/Dextrose 1,000 ml @ 0 mls/hr Q0M IVP; Start 08/14/25 at 00:30; Stop 08/14/25 at 00:15; Status DC Sodium Bicarbonate 25 meq/Dextrose 1,000 ml @ 0 mls/hr Q0M IV Last administered on 08/28/25at 16:29; Start 08/14/25 at 00:30; Stop 09/13/25 at 00:29 Glycerin 1 supp ONCE ONCE RC Last administered on 08/14/25at 05:56; Start 08/14/25 at 05:00; Stop 08/14/25 at 05:06; Status DC Insulin Glargine 20 units DAILY SQ Last administered on 08/14/25at 08:01; Start 08/14/25 at 09:00; Stop 08/15/25 at 07:24; Status DC Ticagrelor 90 mg BID PO Last administered on 08/14/25at 20:09; Start 08/14/25 at 09:00; Stop 08/14/25 at 21:19; Status DC Morphine Sulfate 2 mg Q6H PRN IVP Last administered on 08/19/25at 12:22; Start 08/14/25 at 09:30; Stop 08/19/25 at 12:29; Status DC Polyethylene Glycol 17 gm DAILY PO Last administered on 09/05/25at 08:05; Start 08/15/25 at 09:00; Stop 09/14/25 at 08:59 Docusate Sodium 100 mg BID PRN PO Last administered on 09/04/25at 11:31; Start 08/14/25 at 11:00; Stop 09/13/25 at 10:59 Ceftriaxone Sodium 2 gm Q24H IVPB Last administered on 08/23/25at 12:16; Start 08/14/25 at 11:30; Stop 08/24/25 at 11:29; Status DC Insulin Human Regular 5 unit TIDAC SQ Last administered on 08/15/25at 07:03; Start 08/14/25 at 17:00; Stop 08/15/25 at 07:24; Status DC Chlordiazepoxide HCl 25 mg Q2H PRN PO Last administered on 08/16/25at 23:38; Start 08/14/25 at 14:30; Stop 08/20/25 at 16:32; Status DC Chlordiazepoxide HCl 50 mg Q1H PRN PO; Start 08/14/25 at 14:30; Stop 08/20/25 at 16:32; Status DC Ondansetron HCl 4 mg Q4H PRN IV Last administered on 08/14/25at 14:17; Start 08/14/25 at 14:30; Stop 08/20/25 at 16:32; Status DC Promethazine HCl 25 mg Q6H PRN PO; Start 08/14/25 at 14:30; Stop 08/20/25 at 16:32; Status DC Acetaminophen 500 mg Q6H PRN PO Last administered on 08/26/25at 10:41; Start 08/14/25 at 14:30; Stop 09/13/25 at 14:29 Thiamine HCl 300 mg DAILY IV Last administered on 08/17/25at 07:46; Start 08/15/25 at 09:00; Stop 08/17/25 at 09:01; Status DC Folic Acid 1 mg DAILY PO Last administered on 08/17/25at 07:46; Start 08/15/25 at 09:00; Stop 08/17/25 at 09:01; Status DC Multivitamins Therapeutic 1 tab DAILY PO Last administered on 09/07/25at 09:26; Start 08/15/25 at 09:00; Stop 09/14/25 at 08:59 Pharmacy Profile Note 1 each PROTOCOL PRN MISC; Start 08/14/25 at 14:30; Stop 08/14/25 at 14:08; Status DC Insulin Glargine 30 units DAILY SQ Last administered on 08/15/25at 08:28; Start 08/15/25 at 09:00; Stop 08/16/25 at 07:19; Status DC Insulin Human Regular 8 unit TIDAC SQ Last administered on 08/15/25at 16:02; Start 08/15/25 at 07:30; Stop 08/15/25 at 22:46; Status DC Diphenhydramine HCl 25 mg ONCE ONCE IM; Start 08/15/25 at 21:00; Stop 08/15/25 at 22:52; Status DC Insulin Human Regular 10 unit TIDAC SQ Last administered on 08/17/25at 16:09; Start 08/16/25 at 07:30; Stop 08/17/25 at 21:12; Status DC Diphenhydramine HCl 25 mg ONCE PRN IV; Start 08/15/25 at 23:00; Stop 08/17/25 at 22:59; Status DC Insulin Glargine 35 units DAILY SQ Last administered on 08/18/25at 07:59; Start 08/16/25 at 09:00; Stop 08/19/25 at 07:35; Status DC Bisacodyl 10 mg DAILY RC Last administered on 08/18/25at 07:58; Start 08/17/25 at 09:00; Stop 08/20/25 at 08:59; Status DC Insulin Human Lispro INSULIN SLIDING SCAL... ACHS SQ; Start 08/16/25 at 21:00; Stop 08/17/25 at 09:31; Status DC Insulin Glargine 5 units BID@0730,2100 SQ Last administered on 08/16/25at 21:21; Start 08/16/25 at 21:00; Stop 08/17/25 at 09:31; Status DC Pantoprazole Sodium 40 mg Q12H IVP Last administered on 08/20/25at 03:53; Start 08/17/25 at 16:30; Stop 08/20/25 at 16:32; Status DC Insulin Human Regular INSULIN SLIDING SCAL... ACHS SQ Last administered on 08/19/25at 21:31; Start 08/17/25 at 16:30; Stop 08/20/25 at 16:32; Status DC Insulin Human Regular 12 unit TIDAC SQ Last administered on 08/18/25at 16:39; Start 08/18/25 at 07:30; Stop 08/18/25 at 20:19; Status DC Vancomycin HCl 1 each AD IV; Start 08/17/25 at 22:00; Stop 08/26/25 at 21:47; Status DC Vancomycin HCl 250 ml @ 83.333 mls/ hr ONCE ONCE IV Last administered on 08/17/25at 23:05; Start 08/17/25 at 22:30; Stop 08/18/25 at 01:29; Status DC Vancomycin HCl 250 ml @ 125 mls/hr Q12H IV Last administered on 08/19/25at 09:39; Start 08/18/25 at 09:00; Stop 08/19/25 at 20:54; Status DC Albumin Human 50 ml @ 0 mls/hr BID IV Last administered on 08/22/25at 20:56; Start 08/18/25 at 09:00; Stop 08/23/25 at 08:59; Status DC Lidocaine 1 each DAILY TP Last administered on 09/07/25at 09:26; Start 08/19/25 at 09:00; Stop 09/18/25 at 08:59 Lidocaine 1 each ONCE ONCE TP Last administered on 08/18/25at 13:52; Start 08/18/25 at 14:00; Stop 08/18/25 at 14:01; Status DC Diphenhydramine HCl 25 mg ONCE ONCE PO Last administered on 08/18/25at 15:19; Start 08/18/25 at 15:30; Stop 08/18/25 at 15:31; Status DC Insulin Human Regular 16 unit TIDAC SQ Last administered on 08/19/25at 16:47; Start 08/19/25 at 07:30; Stop 08/20/25 at 06:22; Status DC Insulin Glargine 42 units DAILY SQ Last administered on 08/19/25at 09:40; Start 08/19/25 at 09:00; Stop 08/20/25 at 06:22; Status DC Calcium Carbonate 500 tab QID PRN PO Last administered on 08/20/25at 05:10; Start 08/19/25 at 12:00; Stop 08/20/25 at 16:32; Status DC Morphine Sulfate 2 mg Q6H PRN IVP Last administered on 08/19/25at 17:50; Start 08/19/25 at 18:00; Stop 08/20/25 at 16:32; Status DC Cefazolin Sodium 2 gm ONCALL IVP Last administered on 08/20/25at 16:30; Start 08/19/25 at 19:30; Stop 08/21/25 at 08:36; Status DC Vancomycin HCl 250 ml @ 125 mls/hr Q8H IV Last administered on 08/20/25at 22:26; Start 08/19/25 at 21:30; Stop 08/21/25 at 00:23; Status DC Sodium Chloride 500 ml @ 500 mls/hr Q1H IV Last administered on 08/20/25at 00:53; Start 08/20/25 at 00:33; Stop 08/20/25 at 03:16; Status DC Nitroglycerin/ Dextrose 250 ml @ 0 mls/hr PROTOCOL IV Last administered on 08/20/25at 03:12; Start 08/20/25 at 03:30; Stop 08/20/25 at 16:32; Status DC Insulin Glargine 45 units DAILY SQ; Start 08/20/25 at 09:00; Stop 08/20/25 at 16:32; Status DC Insulin Human Regular 17 unit TIDAC SQ; Start 08/20/25 at 07:30; Stop 08/20/25 at 16:32; Status DC Epinephrine HCl 10 mg/Sodium Chloride 250 ml @ 0 mls/hr AD PRN IV Last administered on 08/26/25at 16:56; Start 08/20/25 at 08:00; Stop 09/19/25 at 07:59 Norepinephrine Bitartrate 250 ml @ 0 mls/hr AD PRN IV Last administered on 09/01/25at 23:29; Start 08/20/25 at 08:00; Stop 09/19/25 at 07:59 Aminocaproic Acid 20704 mg/Sodium Chloride 480 ml @ 0 mls/hr AD PRN IV; Start 08/20/25 at 08:00; Stop 09/02/25 at 07:55; Status DC Cefazolin Sodium 1 gm STK-MED ONCE .ROUTE; Start 08/20/25 at 08:23; Stop 08/20/25 at 08:23; Status DC Heparin Sodium/ Sodium Chloride 500 ml @ As Directed STK-MED ONCE IV; Start 08/20/25 at 08:23; Stop 08/20/25 at 08:24; Status DC Papaverine HCl 60 mg STK-MED ONCE .ROUTE Last administered on 08/20/25at 17:05; Start 08/20/25 at 08:23; Stop 08/20/25 at 08:24; Status DC Epinephrine HCl 10 mg/Sodium Chloride 250 ml @ 0 mls/hr AD PRN IV; Start 08/20/25 at 09:00; Stop 08/20/25 at 09:03; Status DC Norepinephrine Bitartrate 250 ml @ 0 mls/hr AD PRN IV; Start 08/20/25 at 09:00; Stop 08/20/25 at 09:03; Status DC Aminocaproic Acid 19888 mg/Sodium Chloride 480 ml @ 0 mls/hr AD PRN IV; Start 08/20/25 at 09:00; Stop 08/20/25 at 09:03; Status DC Protamine Sulfate 250 mg STK-MED ONCE IV; Start 08/20/25 at 15:44; Stop 08/20/25 at 15:44; Status DC Lidocaine HCl 100 mg STK-MED ONCE .ROUTE; Start 08/20/25 at 15:44; Stop 08/20/25 at 15:44; Status DC Heparin Sodium (Porcine) 10,000 unit STK-MED ONCE .ROUTE; Start 08/20/25 at 15:44; Stop 08/20/25 at 15:44; Status DC Epinephrine HCl 1 mg STK-MED ONCE .ROUTE; Start 08/20/25 at 15:44; Stop 08/20/25 at 15:44; Status DC Sodium Bicarbonate 200 ml @ As Directed STK-MED ONCE .ROUTE; Start 08/20/25 at 15:44; Stop 08/20/25 at 15:44; Status DC Norepinephrine Bitartrate 4 mg STK-MED ONCE IV; Start 08/20/25 at 15:44; Stop 08/20/25 at 15:44; Status DC Propofol 200 mg STK-MED ONCE IV; Start 08/20/25 at 15:45; Stop 08/20/25 at 15:44; Status DC Fentanyl Citrate 1,000 mcg STK-MED ONCE IJ; Start 08/20/25 at 15:45; Stop 08/20/25 at 15:45; Status DC Midazolam HCl 2 mg STK-MED ONCE .ROUTE; Start 08/20/25 at 15:45; Stop 08/20/25 at 15:45; Status DC Rocuronium [place] 50 mg STK-MED ONCE .ROUTE; Start 08/20/25 at 15:45; Stop 08/20/25 at 15:45; Status DC Sodium Bicarbonate 400 ml @ As Directed STK-MED ONCE .ROUTE; Start 08/20/25 at 15:46; Stop 08/20/25 at 15:46; Status DC Cefazolin Sodium 1 gm STK-MED ONCE .ROUTE Last administered on 08/20/25at 17:05; Start 08/20/25 at 16:19; Stop 08/20/25 at 16:19; Status DC Vancomycin HCl 250 ml @ As Directed STK-MED ONCE IV Last administered on 08/20/25at 16:40; Start 08/20/25 at 16:40; Stop 08/20/25 at 16:40; Status DC Sodium Chloride 1,000 ml @ 10 mls/hr ONCE IV Last administered on 08/20/25at 22:31; Start 08/20/25 at 17:00; Stop 08/21/25 at 16:59; Status DC Sodium Chloride 10 ml Q8H PRN IVP; Start 08/20/25 at 17:00; Stop 09/19/25 at 16:59 Morphine Sulfate 0.5 mg Q2H PRN IV; Start 08/20/25 at 17:00; Stop 08/20/25 at 18:07; Status DC Morphine Sulfate 1 mg Q2H PRN IV; Start 08/20/25 at 17:00; Stop 08/21/25 at 16:59; Status DC Acetaminophen 650 mg Q4H PRN RC; Start 08/20/25 at 17:00; Stop 09/19/25 at 16:59 Ondansetron HCl 4 mg Q6H PRN IV Last administered on 08/29/25at 12:47; Start 08/20/25 at 17:00; Stop 09/19/25 at 16:59 Sodium Chloride 500 ml @ 0 mls/hr AD IV; Start 08/20/25 at 17:00; Stop 09/19/25 at 16:59 Nitroglycerin/ Dextrose 0 ml @ 0 mls/hr AD IV; Start 08/20/25 at 17:00; Stop 08/23/25 at 16:59; Status DC Propofol 100 ml @ 0 mls/hr AD PRN IV; Start 08/20/25 at 17:00; Stop 08/24/25 at 17:00; Status DC Norepinephrine Bitartrate 8 mg/ Dextrose 250 ml @ 0 mls/hr AD PRN IV; Start 08/20/25 at 17:00; Stop 08/21/25 at 10:49; Status DC Epinephrine HCl 10 mg/Sodium Chloride 250 ml @ 14.091 mls/ hr AD PRN IV; Start 08/20/25 at 17:00; Stop 08/21/25 at 10:49; Status DC Aminocaproic Acid 34125 mg/Sodium Chloride 310 ml @ 25 mls/hr AD IV; Start 08/20/25 at 17:00; Stop 08/21/25 at 05:23; Status DC Calcium Gluconate 1 gm/Sodium Chloride 60 ml @ 200 mls/hr AD PRN IV Last administered on 08/30/25at 03:43; Start 08/20/25 at 17:00; Stop 09/19/25 at 16:59 Magnesium Sulfate 50 ml @ 12.5 mls/hr AD PRN IV Last administered on 09/02/25at 09:19; Start 08/20/25 at 17:00; Stop 09/02/25 at 09:48; Status DC Potassium Chloride 100 ml @ 100 mls/hr AD PRN IV Last administered on 09/06/25at 04:59; Start 08/20/25 at 17:00; Stop 09/19/25 at 16:59 Potassium Phosphate 250 ml @ 42 mls/hr AD PRN IV; Start 08/20/25 at 17:00; Stop 09/19/25 at 16:59 Albumin Human 250 ml @ 0 mls/hr AD PRN IV Last administered on 08/20/25at 22:46; Start 08/20/25 at 17:00; Stop 08/20/25 at 22:46; Status DC Acetaminophen 650 mg Q4H PRN PO; Start 08/20/25 at 17:00; Stop 09/04/25 at 10:40; Status DC Insulin Human Regular 100 unit/ Sodium Chloride 100 ml @ 0 mls/hr AD IV Last administered on 08/21/25at 15:00; Start 08/20/25 at 17:00; Stop 08/22/25 at 16:59; Status DC Cefazolin Sodium 2 gm Q8H IVPB Last administered on 08/21/25at 13:45; Start 08/20/25 at 22:00; Stop 08/21/25 at 14:01; Status DC Tramadol HCl 25 mg Q6H PRN PO; Start 08/20/25 at 17:00; Stop 08/25/25 at 16:59; Status DC Tramadol HCl 50 mg Q6H PRN PO Last administered on 08/25/25at 09:24; Start 08/20/25 at 17:00; Stop 08/25/25 at 16:59; Status DC Famotidine 20 mg BID IV Last administered on 08/21/25at 20:17; Start 08/20/25 at 21:00; Stop 08/22/25 at 08:20; Status DC Sodium Bicarbonate 50 meq AD PRN IV Last administered on 08/21/25at 01:19; Start 08/20/25 at 17:00; Stop 08/23/25 at 16:59; Status DC Dextrose 50 ml AD PRN IV; Start 08/20/25 at 17:00; Stop 09/19/25 at 16:59 Glucagon 1 mg AD PRN IM; Start 08/20/25 at 17:00; Stop 09/19/25 at 16:59 Amiodarone HCL/ Dextrose 100 ml @ As Directed STK-MED ONCE .ROUTE; Start 08/20/25 at 16:52; Stop 08/20/25 at 16:52; Status DC Lidocaine HCl 100 mg STK-MED ONCE .ROUTE; Start 08/20/25 at 17:34; Stop 08/20/25 at 17:34; Status DC Morphine Sulfate 0.5 mg Q2H PRN IV; Start 08/20/25 at 18:30; Stop 08/21/25 at 16:59; Status DC Heparin Sodium (Porcine) 10,000 unit STK-MED ONCE .ROUTE; Start 08/20/25 at 18:12; Stop 08/20/25 at 18:12; Status DC Insulin Human Regular 300 unit STK-MED ONCE .ROUTE; Start 08/20/25 at 19:39; Stop 08/20/25 at 19:39; Status DC Dexmedetomidine/ Sodium Chloride 400 mcg PROTOCOL IV Last administered on 08/31/25at 06:18; Start 08/20/25 at 20:30; Stop 09/19/25 at 20:29 Magnesium Sulfate 8.12 meq STK-MED ONCE IJ; Start 08/20/25 at 20:17; Stop 08/20/25 at 20:17; Status DC Vasopressin 20 units STK-MED ONCE .ROUTE; Start 08/20/25 at 20:17; Stop 08/20/25 at 20:17; Status DC Amiodarone HCl 360 mg/Dextrose 207.2 ml @ 33.3 mls/hr AD IV; Start 08/20/25 at 21:00; Stop 08/20/25 at 21:05; Status DC Amiodarone HCl 540 mg/Dextrose 310.8 ml @ 16.7 mls/hr [id number] IV Last administered on 08/21/25at 20:12; Start 08/21/25 at 03:00; Stop 08/27/25 at 06:20; Status DC Amiodarone HCL/ Dextrose 207.2 ml @ 33.3 mls/hr AD IV Last administered on 08/20/25at 21:24; Start 08/20/25 at 21:30; Stop 08/21/25 at 10:49; Status DC Albumin Human 250 ml @ 0 mls/hr ONCE ONCE IV Last administered on 08/20/25at 00:00; Start 08/20/25 at 00:00; Stop 08/20/25 at 23:58; Status DC Lidocaine HCl/ Dextrose 250 ml @ 0 mls/hr PROTOCOL IV; Start 08/21/25 at 00:00; Stop 09/20/25 at 00:00 Albumin Human 250 ml @ As Directed STK-MED ONCE IV; Start 08/21/25 at 00:03; Stop 08/21/25 at 00:05; Status DC Vancomycin HCl 250 ml @ 125 mls/hr Q8H IV; Start 08/21/25 at 08:00; Stop 08/21/25 at 06:28; Status DC Vancomycin HCl 250 ml @ 125 mls/hr Q8H IV Last administered on 08/21/25at 08:15; Start 08/21/25 at 06:30; Stop 08/21/25 at 08:35; Status DC Vancomycin HCl 250 ml @ 125 mls/hr Q8H IV Last administered on 08/24/25at 09:32; Start 08/21/25 at 16:30; Stop 08/24/25 at 16:54; Status DC Furosemide 20 mg Q12H IV Last administered on 08/22/25at 11:53; Start 08/21/25 at 11:30; Stop 08/22/25 at 14:17; Status DC Acetaminophen 1,000 mg Q6H6 IVPB Last administered on 09/04/25at 07:06; Start 08/21/25 at 12:00; Stop 09/04/25 at 10:41; Status DC Heparin Sodium/ Dextrose 250 ml @ 0 mls/hr PROTOCOL IV Last administered on 08/28/25at 15:28; Start 08/21/25 at 11:30; Stop 09/03/25 at 06:32; Status DC Iron Sucrose 200 mg DAILY IV Last administered on 08/22/25at 11:53; Start 08/21/25 at 13:00; Stop 08/23/25 at 09:43; Status DC Amiodarone HCl 200 mg BID PO Last administered on 08/28/25at 20:25; Start 08/22/25 at 09:00; Stop 08/29/25 at 21:00; Status DC Famotidine 20 mg BID PO Last administered on 09/07/25at 09:26; Start 08/22/25 at 09:00; Stop 09/21/25 at 08:59 Insulin Human Regular INSULIN SLIDING SCAL... ACHS SQ Last administered on 08/22/25at 20:58; Start 08/22/25 at 11:30; Stop 08/22/25 at 21:32; Status DC Furosemide 40 mg Q12H IV; Start 08/22/25 at 21:00; Stop 08/22/25 at 14:32; Status DC Furosemide 20 mg Q12H IV Last administered on 08/23/25at 09:50; Start 08/22/25 at 21:00; Stop 08/23/25 at 11:37; Status DC Insulin Human Regular INSULIN SLIDING SCAL... ACHS SQ Last administered on 09/07/25at 12:47; Start 08/23/25 at 07:30; Stop 09/22/25 at 07:29 Insulin Glargine 15 units DAILY SQ Last administered on 08/27/25at 08:35; Start 08/23/25 at 09:00; Stop 08/28/25 at 07:20; Status DC Iron Sucrose 200 mg DAILY IV Last administered on 08/25/25at 09:25; Start 08/23/25 at 09:00; Stop 08/26/25 at 08:57; Status DC Furosemide 40 mg Q12H IV Last administered on 08/29/25at 22:38; Start 08/23/25 at 11:30; Stop 08/30/25 at 11:08; Status DC Gabapentin 300 mg TID PO Last administered on 09/07/25at 13:18; Start 08/23/25 at 14:00; Stop 09/22/25 at 13:59 Vancomycin HCl 250 ml @ 125 mls/hr Q12H IV Last administered on 08/26/25at 11:47; Start 08/24/25 at 23:00; Stop 08/26/25 at 21:47; Status DC Tramadol HCl 25 mg Q6H PRN PO Last administered on 08/27/25at 03:12; Start 08/26/25 at 11:00; Stop 08/31/25 at 10:59; Status DC Tramadol HCl 50 mg Q6H PRN PO Last administered on 08/29/25at 05:39; Start 08/26/25 at 11:00; Stop 08/31/25 at 10:59; Status DC Benzocaine 1 each Q4H PRN MM Last administered on 09/04/25at 00:35; Start 08/26/25 at 11:30; Stop 09/25/25 at 11:29 Midodrine 5 mg Q6H6 PO Last administered on 09/01/25at 06:57; Start 08/26/25 at 16:00; Stop 09/01/25 at 10:53; Status DC Phenylephrine HCl 100 mg/Sodium Chloride 250 ml @ 0 mls/hr PROTOCOL IV; Start 08/26/25 at 20:30; Stop 09/25/25 at 20:29 Insulin Human Regular 3 unit TIDAC SQ Last administered on 08/27/25at 16:47; Start 08/27/25 at 07:30; Stop 08/27/25 at 20:56; Status DC Insulin Human Regular 6 unit TIDAC SQ Last administered on 09/07/25at 17:51; Start 08/28/25 at 07:30; Stop 09/27/25 at 07:29 Insulin Glargine 20 units DAILY SQ Last administered on 09/05/25at 08:06; Start 08/28/25 at 09:00; Stop 09/06/25 at 09:44; Status DC Lactulose 20 gm ONCE ONCE PO Last administered on 08/28/25at 09:14; Start 08/28/25 at 09:00; Stop 08/28/25 at 09:01; Status DC Cefazolin Sodium 1 gm STK-MED ONCE .ROUTE; Start 08/29/25 at 08:56; Stop 08/29/25 at 08:56; Status DC Heparin Sodium/ Sodium Chloride 500 ml @ As Directed STK-MED ONCE IV; Start 08/29/25 at 08:56; Stop 08/29/25 at 08:57; Status DC Midazolam HCl 2 mg STK-MED ONCE .ROUTE; Start 08/29/25 at 10:06; Stop 08/29/25 at 10:07; Status DC Lidocaine HCl 100 mg STK-MED ONCE .ROUTE; Start 08/29/25 at 10:15; Stop 08/29/25 at 10:15; Status DC Propofol 200 mg STK-MED ONCE IV; Start 08/29/25 at 10:15; Stop 08/29/25 at 10:15; Status DC Rocuronium [place] 50 mg STK-MED ONCE .ROUTE; Start 08/29/25 at 10:37; Stop 08/29/25 at 10:37; Status DC Midazolam HCl 2 mg STK-MED ONCE .ROUTE; Start 08/29/25 at 10:46; Stop 08/29/25 at 10:47; Status DC Cefazolin Sodium 2 gm STK-MED ONCE IVPB Last administered on 08/29/25at 10:05; Start 08/29/25 at 10:05; Stop 08/29/25 at 11:24; Status DC Fentanyl Citrate 250 mcg STK-MED ONCE IV; Start 08/29/25 at 11:21; Stop 08/29/25 at 11:22; Status DC Furosemide 40 mg ONCE ONCE IV Last administered on 08/30/25at 10:11; Start 08/30/25 at 10:00; Stop 08/30/25 at 10:01; Status DC Piperacillin Sod/ Tazobactam Sod 3.375 gm Q8H IV Last administered on 09/07/25at 17:49; Start 08/30/25 at 10:00; Stop 09/09/25 at 09:59 Furosemide 100 mg/ Sodium Chloride 100 ml @ 0 mls/hr PROTOCOL IV Last administered on 09/02/25at 09:12; Start 08/30/25 at 11:30; Stop 09/02/25 at 10:56; Status DC Lidocaine/ Prilocaine 1 appl ONCE TP Last administered on 08/31/25at 13:59; Start 08/31/25 at 13:30; Stop 09/01/25 at 07:33; Status DC Wound Care/ Dressing Products 1 gm BID TP Last administered on 08/31/25at 21:26; Start 08/31/25 at 21:00; Stop 09/01/25 at 07:35; Status DC Wound Care/ Dressing Products 1 GM BID TP Last administered on 09/07/25at 09:28; Start 09/01/25 at 09:00; Stop 09/30/25 at 20:59 Midodrine 10 mg Q6H6 PO Last administered on 09/02/25at 12:32; Start 09/01/25 at 12:00; Stop 09/02/25 at 16:25; Status DC Midodrine 5 mg ONCE ONCE PO Last administered on 09/01/25at 11:03; Start 09/01/25 at 11:00; Stop 09/01/25 at 11:01; Status DC Potassium Chloride 100 ml @ 50 mls/hr ONCE ONCE IV Last administered on 09/02/25at 12:34; Start 09/02/25 at 10:00; Stop 09/02/25 at 11:59; Status DC Magnesium Sulfate 50 ml @ 0 mls/hr PROTOCOL IV Last administered on 09/07/25at 05:01; Start 09/02/25 at 10:00; Stop 10/02/25 at 09:59 Furosemide 40 mg Q12H IV Last administered on 09/04/25at 21:35; Start 09/02/25 at 11:00; Stop 09/05/25 at 08:55; Status DC Midodrine 15 mg Q6H6 PO Last administered on 09/07/25at 17:49; Start 09/02/25 at 18:00; Stop 10/02/25 at 17:59 Enoxaparin Sodium 40 mg DAILY SQ Last administered on 09/03/25at 08:22; Start 09/03/25 at 09:00; Stop 09/04/25 at 10:33; Status DC Vancomycin HCl 1 gm ONCALL ONCE IV; Start 09/03/25 at 10:00; Stop 09/03/25 at 10:01; Status DC Sodium Bicarbonate 50 ml @ As Directed STK-MED ONCE .ROUTE; Start 09/04/25 at 07:11; Stop 09/04/25 at 07:11; Status DC Lidocaine HCl 50 ml STK-MED ONCE .ROUTE; Start 09/04/25 at 07:11; Stop 09/04/25 at 07:11; Status DC Iohexol 50 ml STK-MED ONCE IV; Start 09/04/25 at 07:11; Stop 09/04/25 at 07:11; Status DC Bupivacaine HCl 2.5 mg STK-MED ONCE IJ; Start 09/04/25 at 07:11; Stop 09/04/25 at 07:11; Status DC Vancomycin HCl 500 ml @ As Directed STK-MED ONCE IV; Start 09/04/25 at 07:11; Stop 09/04/25 at 07:12; Status DC Vancomycin HCl 250 ml @ As Directed STK-MED ONCE IV; Start 09/04/25 at 07:24; Stop 09/04/25 at 07:24; Status DC Fentanyl Citrate 100 mcg STK-MED ONCE .ROUTE; Start 09/04/25 at 08:04; Stop 09/04/25 at 08:04; Status DC Midazolam HCl 2 mg STK-MED ONCE .ROUTE; Start 09/04/25 at 08:04; Stop 09/04/25 at 08:04; Status DC Midazolam HCl 2 mg STK-MED ONCE .ROUTE; Start 09/04/25 at 08:09; Stop 09/04/25 at 08:09; Status DC Midazolam HCl 2 mg STK-MED ONCE .ROUTE; Start 09/04/25 at 09:01; Stop 09/04/25 at 09:01; Status DC Fentanyl Citrate 100 mcg STK-MED ONCE .ROUTE; Start 09/04/25 at 09:38; Stop 09/04/25 at 09:38; Status DC Acetaminophen 1,000 mg Q6H PRN PO Last administered on 09/06/25at 01:20; Start 09/04/25 at 10:30; Stop 10/04/25 at 10:29 Acetaminophen/ Codeine Phosphate 2 tab Q4H PRN PO; Start 09/04/25 at 10:30; Stop 09/04/25 at 23:33; Status DC Acetaminophen/ Codeine Phosphate 1 tab Q4H PRN PO Last administered on 09/04/25at 14:27; Start 09/04/25 at 11:00; Stop 09/04/25 at 23:33; Status DC Tramadol HCl 25 mg Q6H PRN PO; Start 09/04/25 at 23:30; Stop 09/09/25 at 23:29 Tramadol HCl 50 mg Q6H PRN PO Last administered on 09/07/25at 18:01; Start 09/04/25 at 23:30; Stop 09/09/25 at 23:29 Metoprolol Succinate 12.5 mg DAILY PO Last administered on 09/07/25at 09:26; Start 09/05/25 at 09:00; Stop 10/05/25 at 08:59 Furosemide 20 mg BID@09,17 PO Last administered on 09/07/25at 17:49; Start 09/05/25 at 09:00; Stop 10/05/25 at 08:59 Insulin Glargine 24 units DAILY SQ Last administered on 09/07/25at 09:31; Start 09/07/25 at 09:00; Stop 10/07/25 at 08:59 Calcium Carbonate 500 tab TID PRN PO Last administered on 09/07/25at 09:40; Start 09/06/25 at 11:30; Stop 10/06/25 at 11:29 Magnesium Sulfate 50 ml @ 0 mls/hr PROTOCOL IV; Start 09/07/25 at 09:30; Stop 09/07/25 at 09:04; Status DC CAROLYN BYRNE MD Sep 07, 2025 20:07
--- NOTE | 2025-09-07 22:01 | PN ---
TIME: 9:00 a.m. SUBJECTIVE: The patient is a 60-year-old female status post CABG, also status post Impella removal, recovering well. Had a pacemaker done a couple of days ago, currently being paced. PHYSICAL EXAMINATION: NEUROLOGIC: Alert and oriented with no deficits. CARDIAC: S1, S2. Regular rate and rhythm. RESPIRATORY: Clear to auscultation bilaterally. SKIN: Incision is clean, dry, and intact. EXTREMITIES: Warm and well perfused. ASSESSMENT AND PLAN: * Coronary artery disease, status post coronary artery bypass graft on aspirin, statin and beta-santos. The patient received pacemaker a few days ago. * Volume overload, on Lasix. * Hypercholesterolemia, on high statin therapy. * Acute blood loss anemia. No evidence of active bleeding at this time. We will continue to monitor and transfuse if hemoglobin less than 7. TID: [id number] RECEIPT: [id number]
[2025-09-08] VITALS (7 sets, daily range): BP systolic 104–122; BP diastolic 54–68; PULSE 73–91; RESP 17–18; TEMP 98.3–98.6; O2SAT 95–96
[2025-09-08 03:29] LABS: NUCLEATED RED BLOOD CELLS 0.0 % (0.0-0.19); PLATELET COUNT (AUTO) 344.0 K/uL (130-400); RED BLOOD CELL COUNT(AUTO) 3.16 MIL/uL (4.00-5.50); RED CELL DISTRIBUTION WIDTH 16.9 % (11.0-15.5); WHITE BLOOD COUNT (AUTO) 10.1 K/uL (4.8-10.8)
[2025-09-08 03:43] LABS: ASPARTATE AMINOTRANSFERASE 43.0 U/L (10-37); CREATININE 0.8 mg/dL (0.5-1.0); GLOMERULAR FILTR. RATE CALC 85.0 mL/min (>90); GLUCOSE,RANDOM 167.0 mg/dL (70-105); SODIUM SERUM 136.0 mmol/L (136-145); TOTAL PROTEIN, SERUM 7.7 g/dL (6.0-8.3); UREA NITROGEN, BLOOD 14.0 mg/dL (7-18)
--- NOTE | 2025-09-08 09:46 | NUR ---
[facility] DOWN THEREFORE SEE PAPER CHARTING FOR [facility] [facility] [id number] ON MEDS
--- NOTE | 2025-09-08 12:21 | PN ---
[facility] PROGRESS NOTE Date of Service: Sep 08, 2025 Time of Service: 12:20 SUBJECTIVE: This is a 60-year-old female with underlying history of obesity, coronary artery disease, poorly controlled type 2 diabetes mellitus, history of anemia, history of cocaine use, tobacco use disorder, history of CVA in 2008, who presented to the ER for further evaluation of severe substernal chest pain and shortness of breadth. Patient reports having history of cocaine use with last use of cocaine yesterday. She reports having severe substernal chest pain that started today in it has been associated with dizziness, and generalized malaise. Pain is 10/10 in severity. Patient denies any syncope or fall. She has been having lightheadedness with ambulation. She has not been able to follow up with Cardiology as outpatient. She has a previous history of abnormal CT coronary angiography when she was hospitalized in 04/2025 and she was treated medically. With regards to type 2 diabetes mellitus, she reports being on metformin as out patient. On presentation to the hospital, patient was noted to be hypotensive with blood pressure of 80/60 with heart rate of 40 with EKG showing complete heart block. [place] [address], hemoglobin 12.4, platelet count of 162828. BMP showed sodium of 133, potassium 4.8, chloride of 99, BUN of 21, creatinine 1.0, blood glucose of 403, [place] [address]. Chest x-ray showed no acute infiltrates. Patient will be admitted for further management of cardiogenic shock, NSTEMI, complete heart block with history of poorly controlled type 2 diabetes mellitus. Patient will be emergently taken to the solar lab technician for cardiac catheterization/ PCI and tentative plan for MCS support. Patient will be admitted to intensive care unit and she remains critically ill. 08/14 patient remains critically ill requiring Impella and dopamine support. UDS has demonstrated benzos and cocaine 08/15 patient remains on Impella 08/16 patient appears to be resting comfortably in bed. She remains on Impella and dopamine support. She reports she would like to be bathed and wants her hair combed significant and she is feeling better 08/17 patient is on GI soft diet tolerating well. She remains on Impella support 08/18 patient is resting comfortably in bed. She remains on Impella. Tolerating oral intake. 08/19 hemoglobin dropped to 6.5 from 7.0-7.5 yesterday. I agree with transfusing 1 unit PRBC. Patient remains on Impella. Patient is resting comfortably in bed. 08/20 patient is resting comfortably in bed. She remains on Impella support pending recovery for CABG. 08/21 patient underwent CABG x3 yesterday, no complications reported patient remains on Impella the patient is on norepinephrine, amiodarone, dopamine, insulin drip 08/22 postop day 2. From CABG x3. Patient does awaken to verbal stimulation and states she has some chest pain and slight shortness for breath she feels the pain as incisional from her open heart procedure. He is on p.o. amiodarone and being weaned off norepinephrine. 08/23 postop day 3 from CABG x3. Patient is in bed visiting with her son at the bedside. She states she has no shortness for breath, she does have some incisional chest discomfort, no nausea or vomiting or diarrhea. She is off nore pinephrine drip and remains with the Impella assist. 08/24 patient is seen and examined at bedside, discussed with the RN, no acute events overnight, remains with the Impella support, postoperative day four from CABG x3. She is awake, following commands. Off vasopressors. Remains on heparin drip and sodium bicarbonate drip. Continue to follow critical Care and Cardiothoracic input and recommendation. 08/25 PATIENT IS SEEN AND EXAMINED AT BEDSIDE, DISCUSSED WITH THE RN, NO ACUTE EVENTS OVERNIGHT, PATIENT FOLLOWING COMMANDS, SHE REMAINS WITH THE IMPELLA SUPPORT, CHEST TUBE IN PLACE, POSTOPERATIVE DAY FIVE, STATUS POST CABG. CUR RENTLY OFF PRESSORS, ON HEPARIN DRIP. CONTINUE TO FOLLOW CRITICAL CARE AND CARDIOTHORACIC INPUT AND RECOMMENDATIONS. POSSIBLE REMOVAL OF IMPELLA SUPPORT TODAY. 08/26 patient is seen and examined at bedside, discussed with the RN, no acute events overnight, remains with the Impella support, postoperative day four from CABG x6. She is awake, following commands. Off vasopressors. Remains on heparin drip, continue with chest tube in place, continue to follow Cardiothoracic input and recommendation. 08/27 patient is seen and examined at bedside, case discussed with the RN, no acute events overnight, patient awake, following commands, still with the Impella support, status post CABG. No chest pain, shortness shortness for breath, no nausea, no vomiting. Continue with chest tube in place. BP 132/74, afebrile, saturating 99% 4 L nasal cannula. CBC with a hemoglobin 9.0, hematocrit 28.1, WBC 12.2, with a platelet count of 152. Sodium 140, potassium 4.0, BUN of 12, creatinine 0.6, initially 2.10. Cardiology input noted and appreciated, echocardiogram ordered, we will follow report. Continue to follow Cardiothoracic input and recommendation. 08/28 patient is seen and examined at bedside, case discussed with the RN, no acute events overnight, patient remains admitted to the ICU, the time of my visit, awake, following command, NPO, she is scheduled to be taken to the operating room today for removal of Impella support by cardio thoracic surgeons, we will continue to follow input and recommendation. Limited 2D echo performed yesterday shows left ventricular cavity size is normal, Impella device measuring 5.6 cm into LV. Left ventricular ejection fraction 55-60%, no pericardial effusion. 08/29 patient is seen and examined at bedside, case discussed with the RN, no acute events overnight, patient remains admitted to the ICU, the time of my visit, awake, following command, NPO, she is scheduled to be taken to the operating room today for removal of Impella support by cardio thoracic surgeons, we will continue to follow input and recommendation. Limited 2D echo performed yesterday shows left ventricular cavity size is normal, Impella device measuring 5.6 cm into LV. Left ventricular ejection fraction 55-60%, no pericardial effusion. 08/30 patient is seen and examined at bedside, discussed with the RN, no acute events overnight, status post interval removal of Impella and placement of pe ricardial patch in the operating room by Cardiothoracic surgeon, 08/29/2025, tolerated the procedure well. Patient will remain admitted to the ICU, we will continue to follow Cardiothoracic input and recommendation. Follow a.m. labs. Continue Lasix, follow intake and output, daily chest x-ray, continue heparin drip, follow critical care input and recommendation. Patient completed 10 days of Rocephin and a dose of vancomycin. Completed three days of Ancef. 08/31 patient is seen and examined at bedside, discussed with the RN, no acute events overnight, patient remains admitted to the ICU, now she is intubated, mechanical ventilation, however awake, following commands, on low-dose Precedex, also on Lasix drip, Levophed drip, patient is status post interval removal of Impella support device per Cardiothoracic surgeon. Tolerated well. Hemoglobin today 9.1, hematocrit 27.4, ABG pH 7.48, pCO2 40, PO2 95.8, bicarb 29.1, chest x-ray pending. Continue to follow Cardiothoracic input recommendation, for continue care input and recommendation terms of extubation, wean off Levophed. 09/01 patient is seen and examined at bedside, remains admitted to the ICU, status post interval extubation. She is alert and oriented, following commands, remains on Levophed and Lasix drip. Chest tube in place. BP 113/46, hemoglobin 9.9, hematocrit 30.3, WBC 12.0, platelet count of 218. Sodium 138, potassium 3.9, BUN of 13, creatinine 0.9. Discussed with the RN, pending EP evaluation for possible pacemaker. We will follow, continue to follow Cardiothoracic input and recommendation. Critical care input noted and appreciated. Follow a.m. labs. 09/02 patient is seen and examined at bedside, case discussed with the RN, remains admitted to the ICU, at the time of my visit she is alert oriented x3, remains on Lasix Levophed getting IV antibiotics. Oriented patient is status post coronary artery bypass grafting, status post right femoral artery repair. Cardiothoracic input noted and appreciated, input has been noted, Impella has be en successfully unit, patient will remain on low-dose Levophed, Lasix, IV antibiotics, continue chest tube in place. Patient supplemental oxygen via nasal cannula at 2 L to keep oxygen saturation greater than 92%. Continue to follow critical care input recommendation, follow a.m. labs. 09/03 patient is seen and examined at bedside, case discussed with the RN, no acute events overnight, the patient remains admitted to the ICU, awake, following commands, currently off Levophed, maintaining good blood pressure support. Currently on IV antibiotics. Hemoglobin 9.3, hematocrit 28.9, platelet count of 301. Patient is status post interval removal of chest tubes. Remains on aspirin, atorvastatin, furosemide. Continue midodrine. Doppler of the lower extremities negative for DVT. Patient complained on my pain to the right leg, we will request arterial Doppler of the right leg, status post Impella removal. Continue to follow EP input recommendation in terms of pacemaker. 09/04 patient is seen and examined at bedside, case discussed with the RN, no acute events overnight, the patient remains admitted to the ICU, awake, following commands, currently off Levophed, maintaining good blood pressure support. Currently on IV antibiotics. Remains on aspirin, atorvastatin, furosemide. Continue midodrine. Doppler of the lower extremities negative for DVT. Patient complained on my pain to the right leg, we will request arterial Doppler of the right leg, status post Impella removal. Scheduled for pacemaker placement by oxygen therapy technician Dr Lawson today. 09/05 Patient underwent pacemaker placement yesterday, no complications reported. Patient is off IV pressors. Vital signs are stable within normal limits 09/06 patient remains afebrile, vital signs within normal limit sugars are almost at goal. We will increase Lantus to 24 unit hs 09/07 patient is seen and examined at bedside, case discussed with the RN, no acute events overnight, the patient has been downgraded to the PCU, awake, following commands, currently off Levophed, maintaining good blood pressure. Currently on IV antibiotics. Remains on aspirin, atorvastatin, furosemide. Continue midodrine. Doppler of the lower extremities negative for DVT. Patient underwent successful pacemaker implantation 09/04/2024, tolerated the procedure well. Continue to follow Cardiology input and recommendation. We will have Physical therapy to evaluate the patient, we will discuss discharge plan with case management. 09/08 patient has been seen and examined at bedside, discussed with the RN, no acute events overnight, remains admitted to the PCU, she remains hemodynamically stable, alert oriented x3 at the time of my visit, she is complaining of left knee pain, on physical examination tenderness to palpation, with swollen, x-ray of the left knee has been ordered. Patient underwent successful pacemaker implantation 09/04/2024, tolerated the procedure well. Continue to follow Cardiology input and recommendation. We will have Physical therapy to evaluate the patient, we will discuss discharge plan with case management. REVIEW OF SYSTEMS CONSTITUTIONAL: generalized fatigue, malaise NEUROLOGICAL: Denies headache, amaurosis fugax, motor weakness, sensory deficit, vertigo/spinning sensation, gait abnormalities, or tremors. ENT: No hearing loss, otalgia, otorrhea, rhinitis, rhinorrhea, hoarseness, or sore throat. CARDIOVASCULAR: Mild incisional chest pain, no shortness breath PULMONARY: Denies any shortness of breath, cough, phlegm/sputum, hemoptysis, pleuritic chest pain. SLEEP: Denies morning headaches, daytime somnolence or napping. Denies difficulty falling asleep, staying asleep, waking from sleep. Denies knowledge of snoring. GASTROINTESTINAL: No nausea, Denies any type of dysphagia to either liquids or solids. Denies vomiting, pyrosis, early satiety, abdominal pain, diarrhea, constipation, or changes in stool consistency or caliber. Denies coffee-ground emesis, hematemesis, hematochezia, or melanotic stools. GENITOURINARY: Denies frequency, urgency, nocturia, hematuria or incontinence (Storage/Irritative symptoms.) Low urinary stream, straining to void, urinary intermittency or hesitancy, splitting of the voiding stream, terminal dribbling. ENDOCRINOLOGIC: Denies polyuria, polydipsia, polyphagia or heat/cold intolerances. HEMATOLOGIC: Denies thrombophilia/previous clots, or coagulopathy/bleeding disorders. ONCOLOGIC: Denies personal history of malignancy. DERMATOLOGIC: Denies rashes or pruritus. PSYCHIATRIC: Denies any suicidal or homicidal ideation. Denies hallucinations. PHYSICAL EXAM GENERAL APPEARANCE: Extubated, awake, following commands. NEUROLOGICAL: Cranial nerves II-XII grossly intact. Motor is 5/5 in bilateral upper and lower extremities proximal to distal. No sensory deficits. HEENT: Face is symmetric. Pupils are equal and reactive. Extraocular movements are intact. NECK: Supple. No JVD. No thyromegaly. No submental, submandibular, pre- /postauricular, occipital or supraclavicular lymphadenopathy. CHEST: Normal chest expansion. No Telemetry. LUNGS: minimal crackles noted of the bilateral lung bases CARDIOVASCULAR: Regular. S1 and S2 normal. No appreciable rubs, murmurs or gallops. ABDOMEN: Soft, nontender, and nondistended. There is no rebound, voluntary guarding, or rigidity. : Deferred. No Coombs. EXTREMITIES: trace edema noted of the bilateral lower extremities SKIN: No skin breakdown. Vital Signs (last 8hr) Date Time Temp Pulse Resp B/P (MAP) Pulse Ox O2 Delivery O2 Flow Rate FiO2 09/08/25 11:00 98.2 78 18 120/68 98 Room Air 09/08/25 07:00 98.2 75 17 122/68 95 Room Air LABS: Laboratory: Test 09/08/25 10:48 09/08/25 03:12 09/07/25 17:50 09/07/25 03:48 Range/Units Whole Blood Glucose 167 H 70-110 MG/DL Bedside Glucose Comment Notified Nurse White Blood Count 10.1 4.8-10.8 K/uL Red Blood Count 3.16 L 4.00-5.50 MIL/uL Hemoglobin 9.8 L 12.0-16.0 g/dL Hematocrit 30.4 L 36-48 % Mean Corpuscular Volume 96.2 79-99 fL Mean Corpuscular Hemoglobin 31.0 27.0-33.0 pg Mean Corpuscular Hemoglobin Concent 32.2 32.0-36.0 g/dL Red Cell Distribution Width 16.9 H 11.0-15.5 % Platelet Count 344 130-400 K/uL Mean Platelet Volume 10.3 7.5-10.5 fL Nucleated Red Blood Cells 0.0 0.0-0.19 % Sodium Level 136 136-145 mmol/L Potassium Level 4.3 3.5-5.1 mmol/L Chloride Level 100 L 101-111 mmol/L Carbon Dioxide Level 31 21-32 mmol/L Blood Urea Nitrogen 14 7-18 mg/dL Creatinine 0.8 0.5-1.0 mg/dL Glomerular Filtration Rate Calc 85 >90 mL/min Random Glucose 167 H 70-105 mg/dL Total Calcium 8.9 8.5-10.1 mg/dL Magnesium Level 1.80 1.80-2.40 mg/dL Total Bilirubin 0.3 0.2-1.0 mg/dL Aspartate Amino Transf (AST/SGOT) 43 H 10-37 U/L Alanine Aminotransferase (ALT/SGPT) 25 12-78 U/L Alkaline Phosphatase 196 H 50-136 U/L Total Protein 7.7 6.0-8.3 g/dL Albumin 1.9 L 3.5-5.0 g/dL Influenza Type A Antigen Negative For Type A NEGATIVE Influenza Type B Antigen Negative For Type B NEGATIVE SARS-CoV-2 Antigen (Rapid) PRESUMPTIVE NEGATIVE NEGATIVE Immature Granulocyte % (Auto) 0.6 0-1 % Neutrophils (%) (Auto) 61.1 40.0-77.0 % Lymphocytes (%) (Auto) 20.4 L 21.0-51.0 % Monocytes (%) (Auto) 11.0 3.0-13.0 % Eosinophils (%) (Auto) 6.3 0.0-8.0 % Basophils (%) (Auto) 0.6 0.0-5.0 % Neutrophils # (Auto) 5.4 1.8-7.7 K/uL Lymphocytes # (Auto) 1.8 1.0-4.8 K/uL Monocytes # (Auto) 1.0 0.1-1.0 K/uL Eosinophils # (Auto) 0.56 0.00-0.70 K/uL Basophils # (Auto) 0.05 0.00-0.20 K/uL Absolute Immature Granulocyte (auto 0.05 0-1 K/uL Current Medications Medications (Trade) Dose Ordered Sig/Elmer Route PRN Reason Start Time Stop Time Status Last Admin Dose Admin Acetaminophen (TYLenol 325MG TAB) 650 mg Q4H PRN PO Temp >38.3C(AFTER EXTUBATION) 08/20/25 17:00 09/04/25 10:40 DC Acetaminophen (TYLenol 325MG TAB) 650 mg Q6H PRN PO MILD PAIN (1-3) 08/13/25 16:30 09/04/25 10:40 DC 09/04/25 03:33 650 MG Acetaminophen (TYLenol 500MG TAB) 500 mg Q6H PRN PO TEMP < 101.1 AND/OR HEADACHE 08/14/25 14:30 09/13/25 14:29 08/26/25 10:41 500 MG Acetaminophen (TYLenol 500MG TAB) 1,000 mg Q6H PRN PO MILD PAIN (1-3) 09/04/25 10:30 10/04/25 10:29 09/07/25 20:47 1,000 MG Acetaminophen (TYLenol 650MG SUPPOSITORY) 650 mg Q4H PRN RC Temp >38.3C WHILE INTUBATED 08/20/25 17:00 09/19/25 16:59 Acetaminophen (acetaMINOPHEN 1,000MG/100ML) 1,000 mg Q6H6 IVPB 08/21/25 12:00 09/04/25 10:41 DC 09/04/25 07:06 1,000 MG Acetaminophen/ Codeine Phosphate (TYLenol-coDEINE TAB) 1 tab Q4H PRN PO MODERATE PAIN (4-6) 09/04/25 11:00 09/04/25 23:33 DC 09/04/25 14:27 1 TAB Acetaminophen/ Codeine Phosphate (TYLenol-coDEINE TAB) 2 tab Q4H PRN PO SEVERE PAIN (7-10) 09/04/25 10:30 09/04/25 23:33 DC Albumin Human 50 ml @ 0 mls/hr BID IV 08/18/25 09:00 08/23/25 08:59 DC 08/22/25 20:56 100 MLS/HR Albumin Human 250 ml @ 0 mls/hr AD PRN IV IF HEMODYNAMICALLY UNSTABLE 08/20/25 17:00 08/20/25 22:46 DC 08/20/25 22:46 0 MLS/HR Aminocaproic Acid 86684 mg/Sodium Chloride 310 ml @ 25 mls/hr AD IV 08/20/25 17:00 08/21/25 05:23 DC Aminocaproic Acid 20361 mg/Sodium Chloride 480 ml @ 0 mls/hr AD PRN IV BLEEDING CONTROL 08/20/25 08:00 09/02/25 07:55 DC Aminocaproic Acid 03454 mg/Sodium Chloride 480 ml @ 0 mls/hr AD PRN IV BLEEDING CONTROL 08/20/25 09:00 08/20/25 09:03 DC Amiodarone HCl (pacERONE 200MG) 200 mg BID PO 08/22/25 09:00 08/29/25 21:00 DC 08/28/25 20:25 200 MG Amiodarone HCl 360 mg/Dextrose 207.2 ml @ 33.3 mls/hr AD IV 08/20/25 21:00 08/20/25 21:05 DC Amiodarone HCl 540 mg/Dextrose 310.8 ml @ 16.7 mls/hr [id number] IV 08/21/25 03:00 08/27/25 06:20 DC 08/21/25 20:12 16.7 MLS/HR Amiodarone HCL/ Dextrose 207.2 ml @ 33.3 mls/hr AD IV 08/20/25 21:30 08/21/25 10:49 DC 08/20/25 21:24 33.3 MLS/HR Aspirin (Aspirin 81mg Chew Tab) 81 mg DAILY PO 08/14/25 09:00 09/13/25 08:59 09/08/25 10:05 81 MG Atorvastatin Calcium (LIPItor 40MG) 40 mg HS PO 08/13/25 21:00 09/12/25 20:59 09/07/25 20:47 40 MG Benzocaine (Cepacol Sore Throat Lozenge) 1 each Q4H PRN MM SORE THROAT 08/26/25 11:30 09/25/25 11:29 09/04/25 00:35 1 EACH Bisacodyl (DulcoLAX) 10 mg DAILY RC 08/17/25 09:00 08/20/25 08:59 DC 08/18/25 07:58 10 MG Calcium Carbonate (Tums 500 Mg Chew Tab) 500 tab QID PRN PO HEARTBURN 08/19/25 12:00 08/20/25 16:32 DC 08/20/25 05:10 1 TAB Calcium Carbonate (Tums 500 Mg Chew Tab) 500 tab TID PRN PO GI GAS 09/06/25 11:30 10/06/25 11:29 09/07/25 20:46 1 TAB Calcium Gluconate 1 gm/Sodium Chloride 60 ml @ 200 mls/hr AD PRN IV HYPOCALCEMIA 08/20/25 17:00 09/07/25 20:17 DC 08/30/25 03:43 200 MLS/HR Cefazolin Sodium (Ancef) 2 gm ONCALL IVP 08/19/25 19:30 08/21/25 08:36 DC 08/20/25 16:30 2 GM Cefazolin Sodium (Ancef) 2 gm Q8H IVPB 08/20/25 22:00 08/21/25 14:01 DC 08/21/25 13:45 2 GM Ceftriaxone Sodium (Rocephin 2gm Inj) 2 gm Q24H IVPB 08/14/25 11:30 08/24/25 11:29 DC 08/23/25 12:16 2 GM Chlordiazepoxide HCl (LIBrium 25 MG CAP) 25 mg Q2H PRN PO ALCOHOL WITHDRAWAL PROTOCOL 08/14/25 14:30 08/20/25 16:32 DC 08/16/25 23:38 25 MG Chlordiazepoxide HCl (LIBrium 25 MG CAP) 50 mg Q1H PRN PO ALCOHOL WITHDRAWAL PROTOCOL 08/14/25 14:30 08/20/25 16:32 DC Dexmedetomidine/ Sodium Chloride (PRECEdex 400MCG/ 100ML-NS) 400 mcg PROTOCOL IV 08/20/25 20:30 09/07/25 20:17 DC 08/31/25 06:18 400 MCG Dextrose (D50w) 50 ml AD PRN IV HYPOGLYCEMIA PROTOCOL 08/20/25 17:00 09/19/25 16:59 Dextrose (D50w) 50 ml AD PRN IV HYPOGLYCEMIA PROTOCOL 08/13/25 20:00 08/20/25 22:03 DC Diphenhydramine HCl (BENAdryl INJ) 25 mg ONCE PRN IV ITCHING 08/15/25 23:00 08/17/25 22:59 DC Docusate Sodium (COLace 100MG CAP) 100 mg BID PRN PO CONSTIPATION 08/14/25 11:00 09/13/25 10:59 09/04/25 11:31 100 MG Dopamine HCl/ Dextrose 250 ml @ 0 mls/hr PROTOCOL IV 08/13/25 16:00 09/07/25 20:15 DC 08/16/25 16:41 3 MLS/HR Enoxaparin Sodium (Lovenox) 40 mg DAILY SQ 09/03/25 09:00 09/04/25 10:33 DC 09/03/25 08:22 40 MG Epinephrine HCl 10 mg/Sodium Chloride 250 ml @ 14.091 mls/ hr AD PRN IV POST-OP CARDIOVASCULAR ORDERS 08/20/25 17:00 08/21/25 10:49 DC Epinephrine HCl 10 mg/Sodium Chloride 250 ml @ 0 mls/hr AD PRN IV TITRATE 08/20/25 08:00 09/07/25 20:17 DC 08/26/25 16:56 0 MLS/HR Epinephrine HCl 10 mg/Sodium Chloride 250 ml @ 0 mls/hr AD PRN IV TITRATE 08/20/25 09:00 08/20/25 09:03 DC Famotidine (Pepcid 20mg Vial) 20 mg BID IV 08/20/25 21:00 08/22/25 08:20 DC 08/21/25 20:17 20 MG Famotidine (Pepcid 20mg Tab) 20 mg BID PO 08/22/25 09:00 09/21/25 08:59 09/08/25 10:17 20 MG Folic Acid (FOLic ACID 1 MG TABLET) 1 mg DAILY PO 08/15/25 09:00 08/17/25 09:01 DC 08/17/25 07:46 1 MG Furosemide (LASix 20MG TAB) 20 mg BID@09,17 PO 09/05/25 09:00 10/05/25 08:59 09/08/25 10:17 20 MG Furosemide (LASix 20MG VIAL) 20 mg Q12H IV 08/21/25 11:30 08/22/25 14:17 DC 08/22/25 11:53 20 MG Furosemide (LASix 20MG VIAL) 20 mg Q12H IV 08/22/25 21:00 08/23/25 11:37 DC 08/23/25 09:50 20 MG Furosemide (LASix 20MG VIAL) 40 mg Q12H IV 08/22/25 21:00 08/22/25 14:32 DC Furosemide (LASix 40MG VIAL) 40 mg Q12H IV 08/23/25 11:30 08/30/25 11:08 DC 08/29/25 22:38 40 MG Furosemide (LASix 40MG VIAL) 40 mg Q12H IV 09/02/25 11:00 09/05/25 08:55 DC 09/04/25 21:35 40 MG Furosemide 100 mg/ Sodium Chloride 100 ml @ 0 mls/hr PROTOCOL IV 08/30/25 11:30 09/02/25 10:56 DC 09/02/25 09:12 10 MLS/HR Gabapentin (NEURontin 300 MG CAP) 300 mg TID PO 08/23/25 14:00 09/22/25 13:59 09/08/25 10:17 300 MG Glucagon (Glucagon 1mg Kit) 1 mg AD PRN IM HYPOGLYCEMIA PROTOCOL 08/20/25 17:00 09/19/25 16:59 Glucagon (Glucagon 1mg Kit) 1 mg AD PRN IM HYPOGLYCEMIA PROTOCOL 08/13/25 20:00 08/21/25 10:49 DC Heparin Sodium (Porcine) (HEParin 5,000 UNIT VIAL) *calculation based on ACTUAL B... AD PRN IV HEPARIN PROTOCOL 08/13/25 16:30 08/20/25 16:32 DC 08/17/25 04:46 3,175 UNIT Heparin Sodium/ Dextrose 250 ml @ 0 mls/hr PROTOCOL IV 08/21/25 11:30 09/03/25 06:32 DC 08/28/25 15:28 10.54 MLS/HR Heparin Sodium/ Dextrose 250 ml @ 0 mls/hr Q6H IV 08/13/25 16:30 08/20/25 16:32 DC 08/19/25 22:03 11.78 MLS/HR Insulin Glargine (LANtus 100 UNITS/ML 10 ML VIAL) 5 units BID@0730,2100 SQ 08/16/25 21:00 08/17/25 09:31 DC 08/16/25 21:21 5 UNITS Insulin Glargine (LANtus 100 UNITS/ML 10 ML VIAL) 10 units HS SQ 08/13/25 21:00 08/14/25 06:16 DC 08/13/25 20:21 10 UNITS Insulin Glargine (LANtus 100 UNITS/ML 10 ML VIAL) 15 units DAILY SQ 08/23/25 09:00 08/28/25 07:20 DC 08/27/25 08:35 15 UNITS Insulin Glargine (LANtus 100 UNITS/ML 10 ML VIAL) 20 units DAILY SQ 08/14/25 09:00 08/15/25 07:24 DC 08/14/25 08:01 20 UNITS Insulin Glargine (LANtus 100 UNITS/ML 10 ML VIAL) 20 units DAILY SQ 08/28/25 09:00 09/06/25 09:44 DC 09/05/25 08:06 20 UNITS Insulin Glargine (LANtus 100 UNITS/ML 10 ML VIAL) 24 units DAILY SQ 09/07/25 09:00 10/07/25 08:59 09/08/25 10:27 24 UNITS Insulin Glargine (LANtus 100 UNITS/ML 10 ML VIAL) 30 units DAILY SQ 08/15/25 09:00 08/16/25 07:19 DC 08/15/25 08:28 30 UNITS Insulin Glargine (LANtus 100 UNITS/ML 10 ML VIAL) 35 units DAILY SQ 08/16/25 09:00 08/19/25 07:35 DC 08/18/25 07:59 35 UNITS Insulin Glargine (LANtus 100 UNITS/ML 10 ML VIAL) 42 units DAILY SQ 08/19/25 09:00 08/20/25 06:22 DC 08/19/25 09:40 42 UNITS Insulin Glargine (LANtus 100 UNITS/ML 10 ML VIAL) 45 units DAILY SQ 08/20/25 09:00 08/20/25 16:32 DC Insulin Human Lispro (HumaLOG LISpro 100 UNIT/ML 3ML) INSULIN SLIDING SCAL... ACHS SQ 08/16/25 21:00 08/17/25 09:31 DC Insulin Human Regular (humuLIN R 100 UNIT/ML 3ML) 3 unit TIDAC SQ 08/27/25 07:30 08/27/25 20:56 DC 08/27/25 16:47 3 UNIT Insulin Human Regular (humuLIN R 100 UNIT/ML 3ML) 5 unit TIDAC SQ 08/14/25 17:00 08/15/25 07:24 DC 08/15/25 07:03 5 UNIT Insulin Human Regular (humuLIN R 100 UNIT/ML 3ML) 6 unit TIDAC SQ 08/28/25 07:30 09/27/25 07:29 09/08/25 11:39 6 UNIT Insulin Human Regular (humuLIN R 100 UNIT/ML 3ML) 8 unit TIDAC SQ 08/15/25 07:30 08/15/25 22:46 DC 08/15/25 16:02 8 UNIT Insulin Human Regular (humuLIN R 100 UNIT/ML 3ML) 10 unit TIDAC SQ 08/16/25 07:30 08/17/25 21:12 DC 08/17/25 16:09 10 UNIT Insulin Human Regular (humuLIN R 100 UNIT/ML 3ML) 12 unit TIDAC SQ 08/18/25 07:30 08/18/25 20:19 DC 08/18/25 16:39 12 UNIT Insulin Human Regular (humuLIN R 100 UNIT/ML 3ML) 16 unit TIDAC SQ 08/19/25 07:30 08/20/25 06:22 DC 08/19/25 16:47 16 UNIT Insulin Human Regular (humuLIN R 100 UNIT/ML 3ML) 17 unit TIDAC SQ 08/20/25 07:30 08/20/25 16:32 DC Insulin Human Regular (humuLIN R 100 UNIT/ML 3ML) INSULIN SLIDING SCAL... ACHS SQ 08/17/25 16:30 08/20/25 16:32 DC 08/19/25 21:31 8 UNIT Insulin Human Regular (humuLIN R 100 UNIT/ML 3ML) INSULIN SLIDING SCAL... ACHS SQ 08/22/25 11:30 08/22/25 21:32 DC 08/22/25 20:58 3 UNIT Insulin Human Regular (humuLIN R 100 UNIT/ML 3ML) INSULIN SLIDING SCAL... ACHS SQ 08/23/25 07:30 09/22/25 07:29 09/07/25 20:43 4 UNIT Insulin Human Regular (humuLIN R 100 UNIT/ML 3ML) INSULIN SLIDING SCAL... ACHS SQ 08/13/25 16:30 08/16/25 20:46 DC 08/16/25 20:01 4 UNIT Insulin Human Regular 100 unit/ Sodium Chloride 100 ml @ 0 mls/hr AD IV 08/20/25 17:00 08/22/25 16:59 DC 08/21/25 15:00 5 MLS/HR Iron Sucrose (VenoFER) 200 mg DAILY IV 08/21/25 13:00 08/23/25 09:43 DC 08/22/25 11:53 200 MG Iron Sucrose (VenoFER) 200 mg DAILY IV 08/23/25 09:00 08/26/25 08:57 DC 08/25/25 09:25 200 MG Lidocaine (Lidocaine Patch 4%) 1 each DAILY TP 08/19/25 09:00 09/18/25 08:59 09/08/25 10:04 1 EACH Lidocaine HCl/ Dextrose 250 ml @ 0 mls/hr PROTOCOL IV 08/21/25 00:00 09/07/25 20:17 DC Lidocaine/ Prilocaine (Emla) 1 appl ONCE TP 08/31/25 13:30 09/01/25 07:33 DC 08/31/25 13:59 1 APPL Magnesium Sulfate 50 ml @ 12.5 mls/hr AD PRN IV MAG LEVEL LESS THAN 2.0 08/20/25 17:00 09/02/25 09:48 DC 09/02/25 09:19 12.5 MLS/HR Magnesium Sulfate 50 ml @ 0 mls/hr PROTOCOL IV 09/02/25 10:00 10/02/25 09:59 09/07/25 05:01 1.7 MLS/HR Magnesium Sulfate 50 ml @ 0 mls/hr PROTOCOL IV 08/13/25 16:30 08/21/25 10:49 DC 08/21/25 05:58 25 MLS/HR Magnesium Sulfate 50 ml @ 0 mls/hr PROTOCOL IV 09/07/25 09:30 09/07/25 09:04 DC Metoprolol Succinate (TopROL XL) 12.5 mg DAILY PO 09/05/25 09:00 10/05/25 08:59 09/08/25 10:18 12.5 MG Midodrine (PROAMatine 5 MG TABLET) 5 mg Q6H6 PO 08/26/25 16:00 09/01/25 10:53 DC 09/01/25 06:57 5 MG Midodrine (PROAMatine 5 MG TABLET) 10 mg Q6H6 PO 09/01/25 12:00 09/02/25 16:25 DC 09/02/25 12:32 10 MG Midodrine (PROAMatine 5 MG TABLET) 15 mg Q6H6 PO 09/02/25 18:00 10/02/25 17:59 09/08/25 00:06 15 MG Morphine Sulfate (morPHINE 2MG SYG) 0.5 mg Q2H PRN IV MODERATE PAIN (4-6) 08/20/25 17:00 08/20/25 18:07 DC Morphine Sulfate (morPHINE 2MG SYG) 2 mg Q6H PRN IVP SEVERE PAIN (7-10) 08/19/25 18:00 08/20/25 16:32 DC 08/19/25 17:50 2 MG Morphine Sulfate (morPHINE 4MG SYG) 0.5 mg Q2H PRN IV MODERATE PAIN (4-6) 08/20/25 18:30 08/21/25 16:59 DC Morphine Sulfate (morPHINE 4MG SYG) 1 mg Q2H PRN IV SEVERE PAIN (7-10) 08/20/25 17:00 08/21/25 16:59 DC Morphine Sulfate (morPHINE 4MG SYG) 2 mg Q6H PRN IVP SEVERE PAIN (7-10) 08/14/25 09:30 08/19/25 12:29 DC 08/19/25 12:22 2 MG Multivitamins Therapeutic (Multivitamin Tablet) 1 tab DAILY PO 08/15/25 09:00 09/14/25 08:59 09/08/25 10:04 1 TAB Nitroglycerin/ Dextrose 0 ml @ 0 mls/hr AD IV 08/20/25 17:00 08/23/25 16:59 DC Nitroglycerin/ Dextrose 250 ml @ 0 mls/hr PROTOCOL IV 08/20/25 03:30 08/20/25 16:32 DC 08/20/25 03:12 1.5 MLS/HR Norepinephrine 250 ml @ 0 mls/hr PROTOCOL IV 08/13/25 15:30 08/20/25 08:31 DC Norepinephrine Bitartrate 250 ml @ 0 mls/hr AD PRN IV TITRATE 08/20/25 08:00 09/07/25 20:17 DC 09/01/25 23:29 6.18 MLS/HR Norepinephrine Bitartrate 250 ml @ 0 mls/hr AD PRN IV TITRATE 08/20/25 09:00 08/20/25 09:03 DC Norepinephrine Bitartrate 8 mg/ Dextrose 250 ml @ 0 mls/hr AD PRN IV POST-OP CARDIOVASCULAR ORDERS 08/20/25 17:00 08/21/25 10:49 DC Ondansetron HCl (zoFRAN 4MG INJ) 4 mg Q4H PRN IV NAUSEA 08/14/25 14:30 08/20/25 16:32 DC 08/14/25 14:17 4 MG Ondansetron HCl (zoFRAN 4MG INJ) 4 mg Q6H PRN IV NAUSEA/VOMITING 08/20/25 17:00 09/19/25 16:59 08/29/25 12:47 4 MG Ondansetron HCl (zoFRAN 4MG INJ) 4 mg Q6H PRN IVP NAUSEA/VOMITING 08/13/25 16:30 08/14/25 14:08 DC Pantoprazole Sodium (PROTonix 40MG INJ) 40 mg Q12H IVP 08/17/25 16:30 08/20/25 16:32 DC 08/20/25 03:53 40 MG Pantoprazole Sodium (PROTonix 40MG INJ) 40 mg Q24H IVP 08/13/25 16:30 08/17/25 11:10 DC 08/16/25 16:07 40 MG Pharmacy Profile Note (Pharmacy Communication) 1 each PROTOCOL PRN MISC ETOH Withdrawal Score changes 08/14/25 14:30 08/14/25 14:08 DC Phenylephrine HCl 100 mg/Sodium Chloride 250 ml @ 0 mls/hr PROTOCOL IV 08/26/25 20:30 09/07/25 20:17 DC Piperacillin Sod/ Tazobactam Sod (Zosyn 3.375gm+NS 50ml) 3.375 gm Q8H IV 08/30/25 10:00 09/09/25 09:59 09/08/25 10:04 3.375 GM Polyethylene Glycol (MIRalax 3350 17 GM POWD.PACK) 17 gm DAILY PO 08/15/25 09:00 09/14/25 08:59 09/08/25 10:04 17 GM Potassium Phosphate 250 ml @ 42 mls/hr AD PRN IV LOW PHOS LEVEL 08/20/25 17:00 09/19/25 16:59 Potassium Chloride 100 ml @ 100 mls/hr AD PRN IV HYPOKALEMIA 08/20/25 17:00 09/19/25 16:59 09/06/25 04:59 100 MLS/HR Potassium Chloride 100 ml @ 100 mls/hr AD PRN IV POTASSIUM PROTOCOL 08/13/25 16:30 08/20/25 16:32 DC 08/16/25 16:07 100 MLS/HR Potassium Chloride (K-Dur/Klor-Con 20meq) 20 meq AD PRN PO POTASSIUM PROTOCOL 08/13/25 16:30 08/20/25 16:32 DC 08/15/25 08:23 20 MEQ Potassium Chloride (KCl 10% Elixir 20meq/15ml) 20 meq AD PRN PO POTASSIUM PROTOCOL 08/13/25 16:30 08/20/25 16:32 DC Promethazine HCl (Phenergan) 25 mg Q6H PRN PO NAUSEA 08/14/25 14:30 08/20/25 16:32 DC Propofol 100 ml @ 0 mls/hr AD PRN IV SEDATION 08/20/25 17:00 08/24/25 17:00 DC Sodium Bicarbonate 25 meq/Dextrose 1,000 ml @ 0 mls/hr Q0M IV 08/14/25 00:30 09/07/25 20:15 DC 08/28/25 16:29 14 MLS/HR Sodium Bicarbonate 25 meq/Dextrose 1,000 ml @ 0 mls/hr Q0M IVP 08/14/25 00:30 08/14/25 00:15 DC Sodium Bicarbonate (Sodium Bicarb 50meq 50ml Vial) 50 meq AD PRN IV OTHER[SEE DOSING INSTRUCTIONS] 08/20/25 17:00 08/23/25 16:59 DC 08/21/25 01:19 50 MEQ Sodium Chloride 500 ml @ 500 mls/hr Q1H IV 08/20/25 00:33 08/20/25 03:16 DC 08/20/25 00:53 500 MLS/HR Sodium Chloride 500 ml @ 0 mls/hr AD IV 08/20/25 17:00 09/19/25 16:59 Sodium Chloride 1,000 ml @ 10 mls/hr ONCE IV 08/20/25 17:00 08/21/25 16:59 DC 08/20/25 22:31 10 MLS/HR Sodium Chloride (NS Flush 10ml) 10 ml Q8H PRN IVP IV LINE FLUSH 08/20/25 17:00 09/19/25 16:59 Thiamine HCl (Vitamin B-1) 300 mg DAILY IV 08/15/25 09:00 08/17/25 09:01 DC 08/17/25 07:46 300 MG Ticagrelor (BRILinta) 90 mg BID PO 08/14/25 09:00 08/14/25 21:19 DC 08/14/25 20:09 90 MG Tramadol HCl (UltRAM) 25 mg Q6H PRN PO MODERATE PAIN (4-6) 08/20/25 17:00 08/25/25 16:59 DC Tramadol HCl (UltRAM) 25 mg Q6H PRN PO MODERATE PAIN (4-6) 08/26/25 11:00 08/31/25 10:59 DC 08/27/25 03:12 25 MG Tramadol HCl (UltRAM) 25 mg Q6H PRN PO moderate pain 4-6 09/04/25 23:30 09/09/25 23:29 Tramadol HCl (UltRAM) 50 mg Q6H PRN PO SEVERE PAIN (7-10) 08/20/25 17:00 08/25/25 16:59 DC 08/25/25 09:24 50 MG Tramadol HCl (UltRAM) 50 mg Q6H PRN PO SEVERE PAIN (7-10) 08/26/25 11:00 08/31/25 10:59 DC 08/29/25 05:39 50 MG Tramadol HCl (UltRAM) 50 mg Q6H PRN PO SEVERE PAIN (7-10) 09/04/25 23:30 09/09/25 23:29 09/08/25 00:06 50 MG Vancomycin HCl 250 ml @ 125 mls/hr Q12H IV 08/18/25 09:00 08/19/25 20:54 DC 08/19/25 09:39 125 MLS/HR Vancomycin HCl 250 ml @ 125 mls/hr Q12H IV 08/24/25 23:00 08/26/25 21:47 DC 08/26/25 11:47 125 MLS/HR Vancomycin HCl 250 ml @ 125 mls/hr Q8H IV 08/19/25 21:30 08/21/25 00:23 DC 08/20/25 22:26 125 MLS/HR Vancomycin HCl 250 ml @ 125 mls/hr Q8H IV 08/21/25 06:30 08/21/25 08:35 DC 08/21/25 08:15 125 MLS/HR Vancomycin HCl 250 ml @ 125 mls/hr Q8H IV 08/21/25 08:00 08/21/25 06:28 DC Vancomycin HCl 250 ml @ 125 mls/hr Q8H IV 08/21/25 16:30 08/24/25 16:54 DC 08/24/25 09:32 125 MLS/HR Vancomycin HCl (Vancomycin Protocol) 1 each AD IV 08/17/25 22:00 08/26/25 21:47 DC Wound Care/ Dressing Products (Venelex Ointment) 1 GM BID TP 09/01/25 09:00 09/30/25 20:59 09/08/25 10:18 1 GM Wound Care/ Dressing Products (Venelex Ointment) 1 gm BID TP 08/31/25 21:00 09/01/25 07:35 DC 08/31/25 21:26 1 GM DIAGNOSTICS / RADIOLOGY: [ ] ASSESSMENT: Cardiogenic shock with lactic acidosis, POA NSTEMI/ACS, POA Complete heart block, POA History of multivessel coronary artery disease, POA History of cocaine use disorder, POA Severe nonketotic hyperglycemia, POA History of to poorly controlled type 2 diabetes mellitus, POA Lactic acidosis, POA History of anemia, POA History of gastritis, POA History of hypertension, POA History of PTSD/anxiety, POA Obesity, POA Medical noncompliance, POA PLAN: patient has been seen and examined at bedside, discussed with the RN, no acute events overnight, remains admitted to the PCU, she remains hemodynamically stable, alert oriented x3 at the time of my visit, she is complaining of left knee pain, on physical examination tenderness to palpation, with swollen, x-ray of the left knee has been ordered. Patient underwent successful pacemaker implantation 09/04/2024, tolerated the procedure well. Continue to follow Cardiology input and recommendation. We will have Physical therapy to evaluate the patient, we will discuss discharge plan with case management. NEURO: MINIMIZE CENTRAL ACTING MEDICATIONS POSSIBLE. FALL PRECAUTIONS. WELL LIGHTED ROOM THROUGH THE DAY AND MINIMIZE INTERRUPTIONS THROUGH THE NIGHT TO PREVENT ACUTE DELIRIUM. PULMONARY: SUPPLEMENTAL 02 NEEDED OUT OF BED TO CHAIR TOLERATED MAINTAIN ASPIRATION PRECAUTIONS AT ALL TIMES Follow up with Pulmonary/critical Care Medicine, appreciate assistance CARDIOVASCULAR: FOLLOW HEMODYNAMICS. VITAL SIGNS PER FACILITY PROTOCOL Follow up with Cardiology, appreciate assistance -transitioned to oral diuretics -start low dose beta santos Follow up with EP Cardiology appreciate assistance -follow up in clinic in 7-10 days GI & NUTRITION: CONTINUE NUTRITIONAL SUPPORT ASPIRATIONS PRECAUTIONS PROKINETIC AGENTS AND LAXATIVES NEEDED KIDNEYS & ELECTROLYTES: STRICT MONITORING OF INTAKE AND OUTPUT DAILY WEIGHTS AVOID NEPHROTOXIC AGENTS MONITOR ELECTROLYTES AND REPLACE NEEDED GOAL URINE OUTPUT OF 30ML/HR OR 0.5ML/KG/HR MEDICATIONS TO BE DOSED ACCORDING TO RENAL FUNCTION. AVOID CONTRAST IF POSSIBLE ENDOCRINE: Increase Lantus to 24 units HS Continue regular insulin 6 units t.i.d. a.c. Continue regular insulin sliding scale MAINTAIN BLOOD GLUCOSE BETWEEN 100-180 AT ALL TIMES. INSULIN SLIDING SCALE FOR BLOOD GLUCOSE MANAGEMENT HYPOGLYCEMIA AND HYPERGLYCEMIA PROTOCOL IN PLACE INFECTIOUS DISEASE: TREND TEMPERATURE, WBC AND PROCALCITONIN LEVEL FOLLOW CULTURES, DEESCALATE ANTIBIOTICS SOON POSSIBLE. PANCULTURE IF NEW ONSET FEVER HEMATOLOGY & COAGULATION: MONITOR H&H. KEEP HGB > 7 TRANSFUSE 1 UNIT OF PRBC FOR HGB < 7 TRANSFUSE 1 PACK OF PLATELETS OF PLATELETS < 20, 000 WATCH FOR ANY SIGNS AND SYMPTOMS OF BLEEDING SKIN: PRESSURE ULCER PREVENTION PER FACILITY PROTOCOL SPECIALTY MATTRESS NEEDED ORTHO/REHAB CONTINUE PT/OT PRN: MEDICATIONS TYLENOL 650 MG PO EVERY 4 HRS FOR FEVER ZOFRAN 4 MG IV EVERY 6 HRS FOR N/V HYDRALAZINE 5 MG IV EVERY 4 HRS SYSTOLIC PRESSURE > 160 BOWEL REGIMENT: LACTULOSE 20 GM PO BID PRN CONSTIPATION SUPPORTIVE MEASURES: CONTINUE GI AND DVT PROPHYLAXIS DISPOSITION: PENDING IMPROVEMENT IN CLINICAL CONDITION ALL QUESTIONS ANSWERED TIME SPENT: > 35 MIN GEE MARTIN MD Sep 08, 2025 12:21
--- NOTE | 2025-09-08 18:29 | PN ---
SUBJECTIVE: This patient is a 60-year-old who presented with an STEMI, underwent surgical revascularization and Impella supported. She is coursing postoperative day #20. OBJECTIVE: GENERAL: She is awake, alert, and in no acute distress. VITAL SIGNS: Stable as recorded in medical record. CHEST: Sternum is stable. Incision is healed. LUNGS: Clear. EXTREMITIES: Warm and well perfused. No evidence of DVT, hematoma, or infection. ASSESSMENT: Status post coronary artery bypass graft, Impella supported. PROBLEMS: * Coronary artery disease. Aspirin 81 mg, metoprolol 25 mg twice a day. * DVT prophylaxis. Lovenox 30 mg once a day. * Dyslipidemia. Lipitor 40 mg once a day. PLAN: OT and PT rehab. Transfer to LT[facility]. Follow up as an outpatient. TID: [id number] RECEIPT: [id number]
--- NOTE | 2025-09-08 19:49 | PN ---
Endocrinology progress note DOS: 09/08/25 subjective: Home diabetic regimen: metformin 500 mg bid Hba1c 10.7% glucose runs less than 180 mg/dl. patient is s/p CABG Non ST-elevation myocardial infarction in the setting of cocaine abuse complicated by cardiogenic shock requiring Impella support Severe multivessel CAD with acute occlusion of the right coronary artery unable to be revascularized percutaneously with preop ejection fraction of 50% by echo status post aortocoronary bypass graft surgery with a BRO graft to the LAD saphenous graft to the obtuse marginal artery and saphenous graft to the 2nd diagonal artery with a clipping of the left atrial appendage Ventricular standstill after anesthesia induction PAST MEDICAL HISTORY: Coronary artery disease with history of abnormal coronary CT angiography, gastritis, anemia, cocaine use disorder, obesity, PTSD, anxiety disorder, history of NSTEMI in 04/2025, history of CVA in 2008 PAST SURGICAL HISTORY: History of ventral hernia repair 2008, hx of cholecystectomy, hx of C Section PAST SOCIAL HISTORY: Denies active alcohol consumption, intermittently smokes cigarettes as well as has been using cocaine chronically FAMILY HISTORY: Reports family history of heart disease Home medications: Patient does not have list of home medications, family will be bringing list of home medications to be updated Allergies: Patient has allergic reaction to lisinopril Coded Allergies: No Known Drug Allergies (Verified Allergy, Unknown, 05/04/22) lisinopril (Verified Allergy, Unknown, 05/04/22) DIAGNOSTICS / RADIOLOGY: SERVICE 1425 REASON: cp ORDERING PHYSICIAN: ZORA OCHOA MD PROCEDURE: CXR1VW - CHEST 1VW EXAM: CR Chest, 1 View. CLINICAL HISTORY: COMPARISON: 07/08/25 FINDINGS: LUNGS: The lungs show no infiltrate or other acute finding. PLEURAL SPACES: No pleural effusion or pneumothorax. MEDIASTINUM: The cardiomediastinal silhouette is within normal limits. BONES: No aggressive appearing osseous lesion seen. IMPRESSION: No acute cardiopulmonary pathology is evident. /[place] DICTATED BY: BELKIS KURTZ MD DATE: 08/13/251731 ELECTRONICALLY SIGNED BY: BELKIS KURTZ MD DATE: 10/09/25 1732 ASSESSMENT: uncontrolled DM-2 Home diabetic regimen: metformin 500 mg bid Hba1c 10.7% glucose runs less than 180 mg/dl. off insulin drip now and on low dose ssi and low dose lantus insulin and regular insulin.. Cardiogenic shock with lactic acidosis, POA cardiology following, s/p CABG procedure. NSTEMI/ACS, POA Complete heart block, POA History of multivessel coronary artery disease, POA History of cocaine use disorder, POA Lactic acidosis, POA History of anemia, POA History of gastritis, POA History of hypertension, POA History of PTSD/anxiety, POA Obesity, POA Medical noncompliance, POA PLAN: continue Lantus 24 units daily and adjust for fasting glucose. continue Regular insulin 6 units three times before meals continue medium dose sliding scale insulin. Monitor glucose q x 6 hourly. Continue carb consistent diet. Keep glucose less than 180 mg/dl. Patient will need insulin at discharge. Vitals/Labs Vitals/Labs Vital Signs Date Time Temp Pulse Resp B/P (MAP) Pulse Ox O2 Delivery O2 Flow Rate FiO2 09/08/25 16:00 98.6 89 18 108/67 95 Room Air 09/07/25 20:00 0 21 Laboratory Tests 09/08/25 03:12 Medications Current Medications Ondansetron HCl 4 mg ONCE ONCE IVP; Start 08/13/25 at 14:30; Stop 08/13/25 at 14:52; Status DC Sodium Chloride 500 ml @ 0 mls/hr ONCE ONCE IV Last administered on 08/13/25at 15:00; Start 08/13/25 at 14:30; Stop 08/13/25 at 14:31; Status DC Heparin Sodium (Porcine) *calculation based on ACTUAL B... AD PRN IV Last administered on 08/17/25at 04:46; Start 08/13/25 at 16:30; Stop 08/20/25 at 16:32; Status DC Heparin Sodium/ Dextrose 250 ml @ 0 mls/hr Q6H IV Last administered on 08/19/25at 22:03; Start 08/13/25 at 16:30; Stop 08/20/25 at 16:32; Status DC Norepinephrine 250 ml @ 0 mls/hr PROTOCOL IV; Start 08/13/25 at 15:30; Stop 08/20/25 at 08:31; Status DC Dopamine HCl/ Dextrose 250 ml @ As Directed STK-MED ONCE IV; Start 08/13/25 at 15:33; Stop 08/13/25 at 15:33; Status DC Aspirin 325 mg STK-MED ONCE .ROUTE; Start 08/13/25 at 15:34; Stop 08/13/25 at 15:33; Status DC Ticagrelor 180 mg ONCE ONCE PO Last administered on 08/13/25at 16:16; Start 08/13/25 at 16:00; Stop 08/13/25 at 16:01; Status DC Morphine Sulfate 1 mg ONCE ONCE IVP Last administered on 08/13/25at 16:23; Start 08/13/25 at 16:00; Stop 08/13/25 at 16:01; Status DC Ticagrelor 90 mg STK-MED ONCE .ROUTE; Start 08/13/25 at 15:50; Stop 08/13/25 at 15:50; Status DC Dopamine HCl/ Dextrose 250 ml @ 0 mls/hr PROTOCOL IV Last administered on 08/16/25at 16:41; Start 08/13/25 at 16:00; Stop 09/07/25 at 20:15; Status DC Aspirin 325 mg ONCE ONCE PO Last administered on 08/13/25at 16:15; Start 08/13/25 at 16:00; Stop 08/13/25 at 16:01; Status DC Lidocaine HCl 20 ml STK-MED ONCE .ROUTE; Start 08/13/25 at 16:12; Stop 08/13/25 at 16:12; Status DC Iohexol 35,000 mg STK-MED ONCE IV; Start 08/13/25 at 16:12; Stop 08/13/25 at 16:12; Status DC Heparin Sodium (Porcine) 10,000 unit STK-MED ONCE .ROUTE; Start 08/13/25 at 16:12; Stop 08/13/25 at 16:12; Status DC Nicardipine HCl 25 mg STK-MED ONCE IV; Start 08/13/25 at 16:12; Stop 08/13/25 at 16:12; Status DC Heparin Sodium/ Sodium Chloride 1,000 ml @ As Directed STK-MED ONCE IV; Start 08/13/25 at 16:12; Stop 08/13/25 at 16:12; Status DC Nitroglycerin 50 mg STK-MED ONCE .ROUTE; Start 08/13/25 at 16:12; Stop 08/13/25 at 16:12; Status DC Pantoprazole Sodium 40 mg Q24H IVP Last administered on 08/16/25at 16:07; Start 08/13/25 at 16:30; Stop 08/17/25 at 11:10; Status DC Insulin Human Regular INSULIN SLIDING SCAL... ACHS SQ Last administered on 08/16/25at 20:01; Start 08/13/25 at 16:30; Stop 08/16/25 at 20:46; Status DC Insulin Human Regular 5 unit ONCE ONCE IV; Start 08/13/25 at 16:30; Stop 08/13/25 at 16:31; Status DC Fentanyl Citrate 100 mcg STK-MED ONCE .ROUTE; Start 08/13/25 at 16:26; Stop 08/13/25 at 16:26; Status DC Midazolam HCl 2 mg STK-MED ONCE .ROUTE; Start 08/13/25 at 16:27; Stop 08/13/25 at 16:27; Status DC Acetaminophen 650 mg Q6H PRN PO Last administered on 09/04/25at 03:33; Start 08/13/25 at 16:30; Stop 09/04/25 at 10:40; Status DC Ondansetron HCl 4 mg Q6H PRN IVP; Start 08/13/25 at 16:30; Stop 08/14/25 at 14:08; Status DC Potassium Chloride 100 ml @ 100 mls/hr AD PRN IV Last administered on 08/16/25at 16:07; Start 08/13/25 at 16:30; Stop 08/20/25 at 16:32; Status DC Potassium Chloride 20 meq AD PRN PO; Start 08/13/25 at 16:30; Stop 08/20/25 at 16:32; Status DC Potassium Chloride 20 meq AD PRN PO Last administered on 08/15/25at 08:23; Start 08/13/25 at 16:30; Stop 08/20/25 at 16:32; Status DC Magnesium Sulfate 50 ml @ 0 mls/hr PROTOCOL IV Last administered on 08/21/25at 05:58; Start 08/13/25 at 16:30; Stop 08/21/25 at 10:49; Status DC Atorvastatin Calcium 40 mg HS PO Last administered on 09/07/25at 20:47; Start 08/13/25 at 21:00; Stop 09/12/25 at 20:59 Heparin Sodium/ Sodium Chloride 500 ml @ As Directed STK-MED ONCE IV; Start 08/13/25 at 17:14; Stop 08/13/25 at 17:14; Status DC Heparin Sodium (Porcine) 10,000 unit STK-MED ONCE .ROUTE; Start 08/13/25 at 18:03; Stop 08/13/25 at 18:03; Status DC Aspirin 81 mg DAILY PO Last administered on 09/08/25at 10:05; Start 08/14/25 at 09:00; Stop 09/13/25 at 08:59 Insulin Glargine 10 units HS SQ Last administered on 08/13/25at 20:21; Start 08/13/25 at 21:00; Stop 08/14/25 at 06:16; Status DC Dextrose 50 ml AD PRN IV; Start 08/13/25 at 20:00; Stop 08/20/25 at 22:03; Status DC Glucagon 1 mg AD PRN IM; Start 08/13/25 at 20:00; Stop 08/21/25 at 10:49; Status DC Sodium Bicarbonate 25 meq/Dextrose 1,000 ml @ 0 mls/hr Q0M IVP; Start 08/14/25 at 00:30; Stop 08/14/25 at 00:15; Status DC Sodium Bicarbonate 25 meq/Dextrose 1,000 ml @ 0 mls/hr Q0M IV Last administered on 08/28/25at 16:29; Start 08/14/25 at 00:30; Stop 09/07/25 at 20:15; Status DC Glycerin 1 supp ONCE ONCE RC Last administered on 08/14/25at 05:56; Start 08/14/25 at 05:00; Stop 08/14/25 at 05:06; Status DC Insulin Glargine 20 units DAILY SQ Last administered on 08/14/25at 08:01; Start 08/14/25 at 09:00; Stop 08/15/25 at 07:24; Status DC Ticagrelor 90 mg BID PO Last administered on 08/14/25at 20:09; Start 08/14/25 at 09:00; Stop 08/14/25 at 21:19; Status DC Morphine Sulfate 2 mg Q6H PRN IVP Last administered on 08/19/25at 12:22; Start 08/14/25 at 09:30; Stop 08/19/25 at 12:29; Status DC Polyethylene Glycol 17 gm DAILY PO Last administered on 09/08/25at 10:04; Start 08/15/25 at 09:00; Stop 09/14/25 at 08:59 Docusate Sodium 100 mg BID PRN PO Last administered on 09/04/25at 11:31; Start 08/14/25 at 11:00; Stop 09/13/25 at 10:59 Ceftriaxone Sodium 2 gm Q24H IVPB Last administered on 08/23/25at 12:16; Start 08/14/25 at 11:30; Stop 08/24/25 at 11:29; Status DC Insulin Human Regular 5 unit TIDAC SQ Last administered on 08/15/25at 07:03; Start 08/14/25 at 17:00; Stop 08/15/25 at 07:24; Status DC Chlordiazepoxide HCl 25 mg Q2H PRN PO Last administered on 08/16/25at 23:38; Start 08/14/25 at 14:30; Stop 08/20/25 at 16:32; Status DC Chlordiazepoxide HCl 50 mg Q1H PRN PO; Start 08/14/25 at 14:30; Stop 08/20/25 at 16:32; Status DC Ondansetron HCl 4 mg Q4H PRN IV Last administered on 08/14/25at 14:17; Start 08/14/25 at 14:30; Stop 08/20/25 at 16:32; Status DC Promethazine HCl 25 mg Q6H PRN PO; Start 08/14/25 at 14:30; Stop 08/20/25 at 16:32; Status DC Acetaminophen 500 mg Q6H PRN PO Last administered on 08/26/25at 10:41; Start 08/14/25 at 14:30; Stop 09/13/25 at 14:29 Thiamine HCl 300 mg DAILY IV Last administered on 08/17/25at 07:46; Start 08/15/25 at 09:00; Stop 08/17/25 at 09:01; Status DC Folic Acid 1 mg DAILY PO Last administered on 08/17/25at 07:46; Start 08/15/25 at 09:00; Stop 08/17/25 at 09:01; Status DC Multivitamins Therapeutic 1 tab DAILY PO Last administered on 09/08/25at 10:04; Start 08/15/25 at 09:00; Stop 09/14/25 at 08:59 Pharmacy Profile Note 1 each PROTOCOL PRN MISC; Start 08/14/25 at 14:30; Stop 08/14/25 at 14:08; Status DC Insulin Glargine 30 units DAILY SQ Last administered on 08/15/25at 08:28; Start 08/15/25 at 09:00; Stop 08/16/25 at 07:19; Status DC Insulin Human Regular 8 unit TIDAC SQ Last administered on 08/15/25at 16:02; Start 08/15/25 at 07:30; Stop 08/15/25 at 22:46; Status DC Diphenhydramine HCl 25 mg ONCE ONCE IM; Start 08/15/25 at 21:00; Stop 08/15/25 at 22:52; Status DC Insulin Human Regular 10 unit TIDAC SQ Last administered on 08/17/25at 16:09; Start 08/16/25 at 07:30; Stop 08/17/25 at 21:12; Status DC Diphenhydramine HCl 25 mg ONCE PRN IV; Start 08/15/25 at 23:00; Stop 08/17/25 at 22:59; Status DC Insulin Glargine 35 units DAILY SQ Last administered on 08/18/25at 07:59; Start 08/16/25 at 09:00; Stop 08/19/25 at 07:35; Status DC Bisacodyl 10 mg DAILY RC Last administered on 08/18/25at 07:58; Start 08/17/25 at 09:00; Stop 08/20/25 at 08:59; Status DC Insulin Human Lispro INSULIN SLIDING SCAL... ACHS SQ; Start 08/16/25 at 21:00; Stop 08/17/25 at 09:31; Status DC Insulin Glargine 5 units BID@0730,2100 SQ Last administered on 08/16/25at 21:21; Start 08/16/25 at 21:00; Stop 08/17/25 at 09:31; Status DC Pantoprazole Sodium 40 mg Q12H IVP Last administered on 08/20/25at 03:53; Start 08/17/25 at 16:30; Stop 08/20/25 at 16:32; Status DC Insulin Human Regular INSULIN SLIDING SCAL... ACHS SQ Last administered on 08/19/25at 21:31; Start 08/17/25 at 16:30; Stop 08/20/25 at 16:32; Status DC Insulin Human Regular 12 unit TIDAC SQ Last administered on 08/18/25at 16:39; Start 08/18/25 at 07:30; Stop 08/18/25 at 20:19; Status DC Vancomycin HCl 1 each AD IV; Start 08/17/25 at 22:00; Stop 08/26/25 at 21:47; Status DC Vancomycin HCl 250 ml @ 83.333 mls/ hr ONCE ONCE IV Last administered on 08/17/25at 23:05; Start 08/17/25 at 22:30; Stop 08/18/25 at 01:29; Status DC Vancomycin HCl 250 ml @ 125 mls/hr Q12H IV Last administered on 08/19/25at 09:39; Start 08/18/25 at 09:00; Stop 08/19/25 at 20:54; Status DC Albumin Human 50 ml @ 0 mls/hr BID IV Last administered on 08/22/25at 20:56; Start 08/18/25 at 09:00; Stop 08/23/25 at 08:59; Status DC Lidocaine 1 each DAILY TP Last administered on 09/08/25at 10:04; Start 08/19/25 at 09:00; Stop 09/18/25 at 08:59 Lidocaine 1 each ONCE ONCE TP Last administered on 08/18/25at 13:52; Start 08/18/25 at 14:00; Stop 08/18/25 at 14:01; Status DC Diphenhydramine HCl 25 mg ONCE ONCE PO Last administered on 08/18/25at 15:19; Start 08/18/25 at 15:30; Stop 08/18/25 at 15:31; Status DC Insulin Human Regular 16 unit TIDAC SQ Last administered on 08/19/25at 16:47; Start 08/19/25 at 07:30; Stop 08/20/25 at 06:22; Status DC Insulin Glargine 42 units DAILY SQ Last administered on 08/19/25at 09:40; Start 08/19/25 at 09:00; Stop 08/20/25 at 06:22; Status DC Calcium Carbonate 500 tab QID PRN PO Last administered on 08/20/25at 05:10; Start 08/19/25 at 12:00; Stop 08/20/25 at 16:32; Status DC Morphine Sulfate 2 mg Q6H PRN IVP Last administered on 08/19/25at 17:50; Start 08/19/25 at 18:00; Stop 08/20/25 at 16:32; Status DC Cefazolin Sodium 2 gm ONCALL IVP Last administered on 08/20/25at 16:30; Start 08/19/25 at 19:30; Stop 08/21/25 at 08:36; Status DC Vancomycin HCl 250 ml @ 125 mls/hr Q8H IV Last administered on 08/20/25at 22:26; Start 08/19/25 at 21:30; Stop 08/21/25 at 00:23; Status DC Sodium Chloride 500 ml @ 500 mls/hr Q1H IV Last administered on 08/20/25at 00:53; Start 08/20/25 at 00:33; Stop 08/20/25 at 03:16; Status DC Nitroglycerin/ Dextrose 250 ml @ 0 mls/hr PROTOCOL IV Last administered on 08/20/25at 03:12; Start 08/20/25 at 03:30; Stop 08/20/25 at 16:32; Status DC Insulin Glargine 45 units DAILY SQ; Start 08/20/25 at 09:00; Stop 08/20/25 at 16:32; Status DC Insulin Human Regular 17 unit TIDAC SQ; Start 08/20/25 at 07:30; Stop 08/20/25 at 16:32; Status DC Epinephrine HCl 10 mg/Sodium Chloride 250 ml @ 0 mls/hr AD PRN IV Last administered on 08/26/25at 16:56; Start 08/20/25 at 08:00; Stop 09/07/25 at 20:17; Status DC Norepinephrine Bitartrate 250 ml @ 0 mls/hr AD PRN IV Last administered on 09/01/25at 23:29; Start 08/20/25 at 08:00; Stop 09/07/25 at 20:17; Status DC Aminocaproic Acid 65493 mg/Sodium Chloride 480 ml @ 0 mls/hr AD PRN IV; Start 08/20/25 at 08:00; Stop 09/02/25 at 07:55; Status DC Cefazolin Sodium 1 gm STK-MED ONCE .ROUTE; Start 08/20/25 at 08:23; Stop 08/20/25 at 08:23; Status DC Heparin Sodium/ Sodium Chloride 500 ml @ As Directed STK-MED ONCE IV; Start 08/20/25 at 08:23; Stop 08/20/25 at 08:24; Status DC Papaverine HCl 60 mg STK-MED ONCE .ROUTE Last administered on 08/20/25at 17:05; Start 08/20/25 at 08:23; Stop 08/20/25 at 08:24; Status DC Epinephrine HCl 10 mg/Sodium Chloride 250 ml @ 0 mls/hr AD PRN IV; Start 08/20/25 at 09:00; Stop 08/20/25 at 09:03; Status DC Norepinephrine Bitartrate 250 ml @ 0 mls/hr AD PRN IV; Start 08/20/25 at 09:00; Stop 08/20/25 at 09:03; Status DC Aminocaproic Acid 12349 mg/Sodium Chloride 480 ml @ 0 mls/hr AD PRN IV; Start 08/20/25 at 09:00; Stop 08/20/25 at 09:03; Status DC Protamine Sulfate 250 mg STK-MED ONCE IV; Start 08/20/25 at 15:44; Stop 08/20/25 at 15:44; Status DC Lidocaine HCl 100 mg STK-MED ONCE .ROUTE; Start 08/20/25 at 15:44; Stop 08/20/25 at 15:44; Status DC Heparin Sodium (Porcine) 10,000 unit STK-MED ONCE .ROUTE; Start 08/20/25 at 15:44; Stop 08/20/25 at 15:44; Status DC Epinephrine HCl 1 mg STK-MED ONCE .ROUTE; Start 08/20/25 at 15:44; Stop 08/20/25 at 15:44; Status DC Sodium Bicarbonate 200 ml @ As Directed STK-MED ONCE .ROUTE; Start 08/20/25 at 15:44; Stop 08/20/25 at 15:44; Status DC Norepinephrine Bitartrate 4 mg STK-MED ONCE IV; Start 08/20/25 at 15:44; Stop 08/20/25 at 15:44; Status DC Propofol 200 mg STK-MED ONCE IV; Start 08/20/25 at 15:45; Stop 08/20/25 at 15:44; Status DC Fentanyl Citrate 1,000 mcg STK-MED ONCE IJ; Start 08/20/25 at 15:45; Stop 08/20/25 at 15:45; Status DC Midazolam HCl 2 mg STK-MED ONCE .ROUTE; Start 08/20/25 at 15:45; Stop 08/20/25 at 15:45; Status DC Rocuronium [place] 50 mg STK-MED ONCE .ROUTE; Start 08/20/25 at 15:45; Stop 08/20/25 at 15:45; Status DC Sodium Bicarbonate 400 ml @ As Directed STK-MED ONCE .ROUTE; Start 08/20/25 at 15:46; Stop 08/20/25 at 15:46; Status DC Cefazolin Sodium 1 gm STK-MED ONCE .ROUTE Last administered on 08/20/25at 17:05; Start 08/20/25 at 16:19; Stop 08/20/25 at 16:19; Status DC Vancomycin HCl 250 ml @ As Directed STK-MED ONCE IV Last administered on 08/20/25at 16:40; Start 08/20/25 at 16:40; Stop 08/20/25 at 16:40; Status DC Sodium Chloride 1,000 ml @ 10 mls/hr ONCE IV Last administered on 08/20/25at 22:31; Start 08/20/25 at 17:00; Stop 08/21/25 at 16:59; Status DC Sodium Chloride 10 ml Q8H PRN IVP; Start 08/20/25 at 17:00; Stop 09/19/25 at 16:59 Morphine Sulfate 0.5 mg Q2H PRN IV; Start 08/20/25 at 17:00; Stop 08/20/25 at 18:07; Status DC Morphine Sulfate 1 mg Q2H PRN IV; Start 08/20/25 at 17:00; Stop 08/21/25 at 16:59; Status DC Acetaminophen 650 mg Q4H PRN RC; Start 08/20/25 at 17:00; Stop 09/19/25 at 16:59 Ondansetron HCl 4 mg Q6H PRN IV Last administered on 08/29/25at 12:47; Start 08/20/25 at 17:00; Stop 09/19/25 at 16:59 Sodium Chloride 500 ml @ 0 mls/hr AD IV; Start 08/20/25 at 17:00; Stop 09/19/25 at 16:59 Nitroglycerin/ Dextrose 0 ml @ 0 mls/hr AD IV; Start 08/20/25 at 17:00; Stop 08/23/25 at 16:59; Status DC Propofol 100 ml @ 0 mls/hr AD PRN IV; Start 08/20/25 at 17:00; Stop 08/24/25 at 17:00; Status DC Norepinephrine Bitartrate 8 mg/ Dextrose 250 ml @ 0 mls/hr AD PRN IV; Start 08/20/25 at 17:00; Stop 08/21/25 at 10:49; Status DC Epinephrine HCl 10 mg/Sodium Chloride 250 ml @ 14.091 mls/ hr AD PRN IV; Start 08/20/25 at 17:00; Stop 08/21/25 at 10:49; Status DC Aminocaproic Acid 53204 mg/Sodium Chloride 310 ml @ 25 mls/hr AD IV; Start 08/20/25 at 17:00; Stop 08/21/25 at 05:23; Status DC Calcium Gluconate 1 gm/Sodium Chloride 60 ml @ 200 mls/hr AD PRN IV Last administered on 08/30/25at 03:43; Start 08/20/25 at 17:00; Stop 09/07/25 at 20:17; Status DC Magnesium Sulfate 50 ml @ 12.5 mls/hr AD PRN IV Last administered on 09/02/25at 09:19; Start 08/20/25 at 17:00; Stop 09/02/25 at 09:48; Status DC Potassium Chloride 100 ml @ 100 mls/hr AD PRN IV Last administered on 09/06/25at 04:59; Start 08/20/25 at 17:00; Stop 09/19/25 at 16:59 Potassium Phosphate 250 ml @ 42 mls/hr AD PRN IV; Start 08/20/25 at 17:00; Stop 09/19/25 at 16:59 Albumin Human 250 ml @ 0 mls/hr AD PRN IV Last administered on 08/20/25at 22:46; Start 08/20/25 at 17:00; Stop 08/20/25 at 22:46; Status DC Acetaminophen 650 mg Q4H PRN PO; Start 08/20/25 at 17:00; Stop 09/04/25 at 10:40; Status DC Insulin Human Regular 100 unit/ Sodium Chloride 100 ml @ 0 mls/hr AD IV Last administered on 08/21/25at 15:00; Start 08/20/25 at 17:00; Stop 08/22/25 at 16:59; Status DC Cefazolin Sodium 2 gm Q8H IVPB Last administered on 08/21/25at 13:45; Start 08/20/25 at 22:00; Stop 08/21/25 at 14:01; Status DC Tramadol HCl 25 mg Q6H PRN PO; Start 08/20/25 at 17:00; Stop 08/25/25 at 16:59; Status DC Tramadol HCl 50 mg Q6H PRN PO Last administered on 08/25/25at 09:24; Start 08/20/25 at 17:00; Stop 08/25/25 at 16:59; Status DC Famotidine 20 mg BID IV Last administered on 08/21/25at 20:17; Start 08/20/25 at 21:00; Stop 08/22/25 at 08:20; Status DC Sodium Bicarbonate 50 meq AD PRN IV Last administered on 08/21/25at 01:19; Start 08/20/25 at 17:00; Stop 08/23/25 at 16:59; Status DC Dextrose 50 ml AD PRN IV; Start 08/20/25 at 17:00; Stop 09/19/25 at 16:59 Glucagon 1 mg AD PRN IM; Start 08/20/25 at 17:00; Stop 09/19/25 at 16:59 Amiodarone HCL/ Dextrose 100 ml @ As Directed STK-MED ONCE .ROUTE; Start 08/20/25 at 16:52; Stop 08/20/25 at 16:52; Status DC Lidocaine HCl 100 mg STK-MED ONCE .ROUTE; Start 08/20/25 at 17:34; Stop 08/20/25 at 17:34; Status DC Morphine Sulfate 0.5 mg Q2H PRN IV; Start 08/20/25 at 18:30; Stop 08/21/25 at 16:59; Status DC Heparin Sodium (Porcine) 10,000 unit STK-MED ONCE .ROUTE; Start 08/20/25 at 18:12; Stop 08/20/25 at 18:12; Status DC Insulin Human Regular 300 unit STK-MED ONCE .ROUTE; Start 08/20/25 at 19:39; Stop 08/20/25 at 19:39; Status DC Dexmedetomidine/ Sodium Chloride 400 mcg PROTOCOL IV Last administered on 08/31/25at 06:18; Start 08/20/25 at 20:30; Stop 09/07/25 at 20:17; Status DC Magnesium Sulfate 8.12 meq STK-MED ONCE IJ; Start 08/20/25 at 20:17; Stop 08/20/25 at 20:17; Status DC Vasopressin 20 units STK-MED ONCE .ROUTE; Start 08/20/25 at 20:17; Stop 08/20/25 at 20:17; Status DC Amiodarone HCl 360 mg/Dextrose 207.2 ml @ 33.3 mls/hr AD IV; Start 08/20/25 at 21:00; Stop 08/20/25 at 21:05; Status DC Amiodarone HCl 540 mg/Dextrose 310.8 ml @ 16.7 mls/hr [id number] IV Last administered on 08/21/25at 20:12; Start 08/21/25 at 03:00; Stop 08/27/25 at 06:20; Status DC Amiodarone HCL/ Dextrose 207.2 ml @ 33.3 mls/hr AD IV Last administered on 08/20/25at 21:24; Start 08/20/25 at 21:30; Stop 08/21/25 at 10:49; Status DC Albumin Human 250 ml @ 0 mls/hr ONCE ONCE IV Last administered on 08/20/25at 00:00; Start 08/20/25 at 00:00; Stop 08/20/25 at 23:58; Status DC Lidocaine HCl/ Dextrose 250 ml @ 0 mls/hr PROTOCOL IV; Start 08/21/25 at 00:00; Stop 09/07/25 at 20:17; Status DC Albumin Human 250 ml @ As Directed STK-MED ONCE IV; Start 08/21/25 at 00:03; Stop 08/21/25 at 00:05; Status DC Vancomycin HCl 250 ml @ 125 mls/hr Q8H IV; Start 08/21/25 at 08:00; Stop 08/21/25 at 06:28; Status DC Vancomycin HCl 250 ml @ 125 mls/hr Q8H IV Last administered on 08/21/25at 08:15; Start 08/21/25 at 06:30; Stop 08/21/25 at 08:35; Status DC Vancomycin HCl 250 ml @ 125 mls/hr Q8H IV Last administered on 08/24/25at 09:32; Start 08/21/25 at 16:30; Stop 08/24/25 at 16:54; Status DC Furosemide 20 mg Q12H IV Last administered on 08/22/25at 11:53; Start 08/21/25 at 11:30; Stop 08/22/25 at 14:17; Status DC Acetaminophen 1,000 mg Q6H6 IVPB Last administered on 09/04/25at 07:06; Start 08/21/25 at 12:00; Stop 09/04/25 at 10:41; Status DC Heparin Sodium/ Dextrose 250 ml @ 0 mls/hr PROTOCOL IV Last administered on 08/28/25at 15:28; Start 08/21/25 at 11:30; Stop 09/03/25 at 06:32; Status DC Iron Sucrose 200 mg DAILY IV Last administered on 08/22/25at 11:53; Start 08/21/25 at 13:00; Stop 08/23/25 at 09:43; Status DC Amiodarone HCl 200 mg BID PO Last administered on 08/28/25at 20:25; Start 08/22/25 at 09:00; Stop 08/29/25 at 21:00; Status DC Famotidine 20 mg BID PO Last administered on 09/08/25at 10:17; Start 08/22/25 at 09:00; Stop 09/21/25 at 08:59 Insulin Human Regular INSULIN SLIDING SCAL... ACHS SQ Last administered on 08/22/25at 20:58; Start 08/22/25 at 11:30; Stop 08/22/25 at 21:32; Status DC Furosemide 40 mg Q12H IV; Start 08/22/25 at 21:00; Stop 08/22/25 at 14:32; Status DC Furosemide 20 mg Q12H IV Last administered on 08/23/25at 09:50; Start 08/22/25 at 21:00; Stop 08/23/25 at 11:37; Status DC Insulin Human Regular INSULIN SLIDING SCAL... ACHS SQ Last administered on 09/08/25at 18:37; Start 08/23/25 at 07:30; Stop 09/22/25 at 07:29 Insulin Glargine 15 units DAILY SQ Last administered on 08/27/25at 08:35; Start 08/23/25 at 09:00; Stop 08/28/25 at 07:20; Status DC Iron Sucrose 200 mg DAILY IV Last administered on 08/25/25at 09:25; Start 08/23/25 at 09:00; Stop 08/26/25 at 08:57; Status DC Furosemide 40 mg Q12H IV Last administered on 08/29/25at 22:38; Start 08/23/25 at 11:30; Stop 08/30/25 at 11:08; Status DC Gabapentin 300 mg TID PO Last administered on 09/08/25at 13:53; Start 08/23/25 at 14:00; Stop 09/22/25 at 13:59 Vancomycin HCl 250 ml @ 125 mls/hr Q12H IV Last administered on 08/26/25at 11:47; Start 08/24/25 at 23:00; Stop 08/26/25 at 21:47; Status DC Tramadol HCl 25 mg Q6H PRN PO Last administered on 08/27/25at 03:12; Start 08/26/25 at 11:00; Stop 08/31/25 at 10:59; Status DC Tramadol HCl 50 mg Q6H PRN PO Last administered on 08/29/25at 05:39; Start 08/26/25 at 11:00; Stop 08/31/25 at 10:59; Status DC Benzocaine 1 each Q4H PRN MM Last administered on 09/04/25at 00:35; Start 08/26/25 at 11:30; Stop 09/25/25 at 11:29 Midodrine 5 mg Q6H6 PO Last administered on 09/01/25at 06:57; Start 08/26/25 at 16:00; Stop 09/01/25 at 10:53; Status DC Phenylephrine HCl 100 mg/Sodium Chloride 250 ml @ 0 mls/hr PROTOCOL IV; Start 08/26/25 at 20:30; Stop 09/07/25 at 20:17; Status DC Insulin Human Regular 3 unit TIDAC SQ Last administered on 08/27/25at 16:47; Start 08/27/25 at 07:30; Stop 08/27/25 at 20:56; Status DC Insulin Human Regular 6 unit TIDAC SQ Last administered on 09/08/25at 18:38; Start 08/28/25 at 07:30; Stop 09/27/25 at 07:29 Insulin Glargine 20 units DAILY SQ Last administered on 09/05/25at 08:06; Start 08/28/25 at 09:00; Stop 09/06/25 at 09:44; Status DC Lactulose 20 gm ONCE ONCE PO Last administered on 08/28/25at 09:14; Start 08/28/25 at 09:00; Stop 08/28/25 at 09:01; Status DC Cefazolin Sodium 1 gm STK-MED ONCE .ROUTE; Start 08/29/25 at 08:56; Stop 08/29/25 at 08:56; Status DC Heparin Sodium/ Sodium Chloride 500 ml @ As Directed STK-MED ONCE IV; Start 08/29/25 at 08:56; Stop 08/29/25 at 08:57; Status DC Midazolam HCl 2 mg STK-MED ONCE .ROUTE; Start 08/29/25 at 10:06; Stop 08/29/25 at 10:07; Status DC Lidocaine HCl 100 mg STK-MED ONCE .ROUTE; Start 08/29/25 at 10:15; Stop 08/29/25 at 10:15; Status DC Propofol 200 mg STK-MED ONCE IV; Start 08/29/25 at 10:15; Stop 08/29/25 at 10:15; Status DC Rocuronium [place] 50 mg STK-MED ONCE .ROUTE; Start 08/29/25 at 10:37; Stop 08/29/25 at 10:37; Status DC Midazolam HCl 2 mg STK-MED ONCE .ROUTE; Start 08/29/25 at 10:46; Stop 08/29/25 at 10:47; Status DC Cefazolin Sodium 2 gm STK-MED ONCE IVPB Last administered on 08/29/25at 10:05; Start 08/29/25 at 10:05; Stop 08/29/25 at 11:24; Status DC Fentanyl Citrate 250 mcg STK-MED ONCE IV; Start 08/29/25 at 11:21; Stop 08/29/25 at 11:22; Status DC Furosemide 40 mg ONCE ONCE IV Last administered on 08/30/25at 10:11; Start 08/30/25 at 10:00; Stop 08/30/25 at 10:01; Status DC Piperacillin Sod/ Tazobactam Sod 3.375 gm Q8H IV Last administered on 09/08/25at 18:34; Start 08/30/25 at 10:00; Stop 09/09/25 at 09:59 Furosemide 100 mg/ Sodium Chloride 100 ml @ 0 mls/hr PROTOCOL IV Last administered on 09/02/25at 09:12; Start 08/30/25 at 11:30; Stop 09/02/25 at 10:56; Status DC Lidocaine/ Prilocaine 1 appl ONCE TP Last administered on 08/31/25at 13:59; Start 08/31/25 at 13:30; Stop 09/01/25 at 07:33; Status DC Wound Care/ Dressing Products 1 gm BID TP Last administered on 08/31/25at 21:26; Start 08/31/25 at 21:00; Stop 09/01/25 at 07:35; Status DC Wound Care/ Dressing Products 1 GM BID TP Last administered on 09/08/25at 10:18; Start 09/01/25 at 09:00; Stop 09/30/25 at 20:59 Midodrine 10 mg Q6H6 PO Last administered on 09/02/25at 12:32; Start 09/01/25 at 12:00; Stop 09/02/25 at 16:25; Status DC Midodrine 5 mg ONCE ONCE PO Last administered on 09/01/25at 11:03; Start 09/01/25 at 11:00; Stop 09/01/25 at 11:01; Status DC Potassium Chloride 100 ml @ 50 mls/hr ONCE ONCE IV Last administered on 09/02/25at 12:34; Start 09/02/25 at 10:00; Stop 09/02/25 at 11:59; Status DC Magnesium Sulfate 50 ml @ 0 mls/hr PROTOCOL IV Last administered on 09/07/25at 05:01; Start 09/02/25 at 10:00; Stop 10/02/25 at 09:59 Furosemide 40 mg Q12H IV Last administered on 09/04/25at 21:35; Start 09/02/25 at 11:00; Stop 09/05/25 at 08:55; Status DC Midodrine 15 mg Q6H6 PO Last administered on 09/08/25at 18:35; Start 09/02/25 at 18:00; Stop 10/02/25 at 17:59 Enoxaparin Sodium 40 mg DAILY SQ Last administered on 09/03/25at 08:22; Start 09/03/25 at 09:00; Stop 09/04/25 at 10:33; Status DC Vancomycin HCl 1 gm ONCALL ONCE IV; Start 09/03/25 at 10:00; Stop 09/03/25 at 10:01; Status DC Sodium Bicarbonate 50 ml @ As Directed STK-MED ONCE .ROUTE; Start 09/04/25 at 07:11; Stop 09/04/25 at 07:11; Status DC Lidocaine HCl 50 ml STK-MED ONCE .ROUTE; Start 09/04/25 at 07:11; Stop 09/04/25 at 07:11; Status DC Iohexol 50 ml STK-MED ONCE IV; Start 09/04/25 at 07:11; Stop 09/04/25 at 07:11; Status DC Bupivacaine HCl 2.5 mg STK-MED ONCE IJ; Start 09/04/25 at 07:11; Stop 09/04/25 at 07:11; Status DC Vancomycin HCl 500 ml @ As Directed STK-MED ONCE IV; Start 09/04/25 at 07:11; Stop 09/04/25 at 07:12; Status DC Vancomycin HCl 250 ml @ As Directed STK-MED ONCE IV; Start 09/04/25 at 07:24; Stop 09/04/25 at 07:24; Status DC Fentanyl Citrate 100 mcg STK-MED ONCE .ROUTE; Start 09/04/25 at 08:04; Stop 09/04/25 at 08:04; Status DC Midazolam HCl 2 mg STK-MED ONCE .ROUTE; Start 09/04/25 at 08:04; Stop 09/04/25 at 08:04; Status DC Midazolam HCl 2 mg STK-MED ONCE .ROUTE; Start 09/04/25 at 08:09; Stop 09/04/25 at 08:09; Status DC Midazolam HCl 2 mg STK-MED ONCE .ROUTE; Start 09/04/25 at 09:01; Stop 09/04/25 at 09:01; Status DC Fentanyl Citrate 100 mcg STK-MED ONCE .ROUTE; Start 09/04/25 at 09:38; Stop 09/04/25 at 09:38; Status DC Acetaminophen 1,000 mg Q6H PRN PO Last administered on 09/07/25at 20:47; Start 09/04/25 at 10:30; Stop 10/04/25 at 10:29 Acetaminophen/ Codeine Phosphate 2 tab Q4H PRN PO; Start 09/04/25 at 10:30; Stop 09/04/25 at 23:33; Status DC Acetaminophen/ Codeine Phosphate 1 tab Q4H PRN PO Last administered on 09/04/25at 14:27; Start 09/04/25 at 11:00; Stop 09/04/25 at 23:33; Status DC Tramadol HCl 25 mg Q6H PRN PO; Start 09/04/25 at 23:30; Stop 09/09/25 at 23:29 Tramadol HCl 50 mg Q6H PRN PO Last administered on 09/08/25at 13:55; Start 09/04/25 at 23:30; Stop 09/09/25 at 23:29 Metoprolol Succinate 12.5 mg DAILY PO Last administered on 09/08/25at 10:18; Start 09/05/25 at 09:00; Stop 10/05/25 at 08:59 Furosemide 20 mg BID@,17 PO Last administered on 09/08/25at 18:35; Start 09/05/25 at 09:00; Stop 10/05/25 at 08:59 Insulin Glargine 24 units DAILY SQ Last administered on 09/08/25at 10:27; Start 09/07/25 at 09:00; Stop 10/07/25 at 08:59 Calcium Carbonate 500 tab TID PRN PO Last administered on 09/07/25at 20:46; Start 09/06/25 at 11:30; Stop 10/06/25 at 11:29 Magnesium Sulfate 50 ml @ 0 mls/hr PROTOCOL IV; Start 09/07/25 at 09:30; Stop 09/07/25 at 09:04; Status DC CAROLYN BYRNE MD Sep 08, 2025 19:49
--- NOTE | 2025-09-08 23:51 | NUR ---
[facility] NOTE 2100 ACHS done at 2350 as pt had just received insulin 2 hours prior at due time. BS 149. No insulin needed.
[2025-09-09] VITALS (8 sets, daily range): BP systolic 95–130; BP diastolic 57–78; PULSE 76–93; RESP 17–20; TEMP 97.9–99.5; O2SAT 96–97
[2025-09-09 04:40] LABS: NUCLEATED RED BLOOD CELLS 0.0 % (0.0-0.19); PLATELET COUNT (AUTO) 315.0 K/uL (130-400); RED BLOOD CELL COUNT(AUTO) 3.23 MIL/uL (4.00-5.50); RED CELL DISTRIBUTION WIDTH 16.7 % (11.0-15.5); WHITE BLOOD COUNT (AUTO) 9.2 K/uL (4.8-10.8)
[2025-09-09 05:18] LABS: ASPARTATE AMINOTRANSFERASE 45.0 U/L (10-37); CREATININE 0.8 mg/dL (0.5-1.0); GLOMERULAR FILTR. RATE CALC 85.0 mL/min (>90); GLUCOSE,RANDOM 162.0 mg/dL (70-105); SODIUM SERUM 136.0 mmol/L (136-145); TOTAL PROTEIN, SERUM 7.6 g/dL (6.0-8.3); UREA NITROGEN, BLOOD 14.0 mg/dL (7-18)
[2025-09-09] MEDS ORDERED: MAGNESIUM 2GM PREMIX 50ML 50 ML IV SCH (10:00)
--- NOTE | 2025-09-09 11:42 | PN ---
[facility] PROGRESS NOTE Date of Service: Sep 09, 2025 Time of Service: 11:40 SUBJECTIVE: This is a 60-year-old female with underlying history of obesity, coronary artery disease, poorly controlled type 2 diabetes mellitus, history of anemia, history of cocaine use, tobacco use disorder, history of CVA in 2008, who presented to the ER for further evaluation of severe substernal chest pain and shortness of breadth. Patient reports having history of cocaine use with last use of cocaine yesterday. She reports having severe substernal chest pain that started today in it has been associated with dizziness, and generalized malaise. Pain is 10/10 in severity. Patient denies any syncope or fall. She has been having lightheadedness with ambulation. She has not been able to follow up with Cardiology as outpatient. She has a previous history of abnormal CT coronary angiography when she was hospitalized in 04/2025 and she was treated medically. With regards to type 2 diabetes mellitus, she reports being on metformin as out patient. On presentation to the hospital, patient was noted to be hypotensive with blood pressure of 80/60 with heart rate of 40 with EKG showing complete heart block. [place] [address], hemoglobin 12.4, platelet count of 470376. BMP showed sodium of 133, potassium 4.8, chloride of 99, BUN of 21, creatinine 1.0, blood glucose of 403, [place] [address]. Chest x-ray showed no acute infiltrates. Patient will be admitted for further management of cardiogenic shock, NSTEMI, complete heart block with history of poorly controlled type 2 diabetes mellitus. Patient will be emergently taken to the [facility] for cardiac catheterization/ PCI and tentative plan for MCS support. Patient will be admitted to intensive care unit and she remains critically ill. 08/14 patient remains critically ill requiring Impella and dopamine support. UDS has demonstrated benzos and cocaine 08/15 patient remains on Impella 08/16 patient appears to be resting comfortably in bed. She remains on Impella and dopamine support. She reports she would like to be bathed and wants her hair combed significant and she is feeling better 08/17 patient is on GI soft diet tolerating well. She remains on Impella support 08/18 patient is resting comfortably in bed. She remains on Impella. Tolerating oral intake. 08/19 hemoglobin dropped to 6.5 from 7.0-7.5 yesterday. I agree with transfusing 1 unit PRBC. Patient remains on Impella. Patient is resting comfortably in bed. 08/20 patient is resting comfortably in bed. She remains on Impella support pending recovery for CABG. 08/21 patient underwent CABG x3 yesterday, no complications reported patient remains on Impella the patient is on norepinephrine, amiodarone, dopamine, insulin drip 08/22 postop day 2. From CABG x3. Patient does awaken to verbal stimulation and states she has some chest pain and slight shortness for breath she feels the pain as incisional from her open heart procedure. He is on p.o. amiodarone and being weaned off norepinephrine. 08/23 postop day 3 from CABG x3. Patient is in bed visiting with her son at the bedside. She states she has no shortness for breath, she does have some incisional chest discomfort, no nausea or vomiting or diarrhea. She is off nore pinephrine drip and remains with the Impella assist. 08/24 patient is seen and examined at bedside, discussed with the RN, no acute events overnight, remains with the Impella support, postoperative day four from CABG x3. She is awake, following commands. Off vasopressors. Remains on heparin drip and sodium bicarbonate drip. Continue to follow critical Care and Cardiothoracic input and recommendation. 08/25 PATIENT IS SEEN AND EXAMINED AT BEDSIDE, DISCUSSED WITH THE RN, NO ACUTE EVENTS OVERNIGHT, PATIENT FOLLOWING COMMANDS, SHE REMAINS WITH THE IMPELLA SUPPORT, CHEST TUBE IN PLACE, POSTOPERATIVE DAY FIVE, STATUS POST CABG. CUR RENTLY OFF PRESSORS, ON HEPARIN DRIP. CONTINUE TO FOLLOW CRITICAL CARE AND CARDIOTHORACIC INPUT AND RECOMMENDATIONS. POSSIBLE REMOVAL OF IMPELLA SUPPORT TODAY. 08/26 patient is seen and examined at bedside, discussed with the RN, no acute events overnight, remains with the Impella support, postoperative day four from CABG x6. She is awake, following commands. Off vasopressors. Remains on heparin drip, continue with chest tube in place, continue to follow Cardiothoracic input and recommendation. 08/27 patient is seen and examined at bedside, case discussed with the RN, no acute events overnight, patient awake, following commands, still with the Impella support, status post CABG. No chest pain, shortness shortness for breath, no nausea, no vomiting. Continue with chest tube in place. BP 132/74, afebrile, saturating 99% 4 L nasal cannula. CBC with a hemoglobin 9.0, hematocrit 28.1, WBC 12.2, with a platelet count of 152. Sodium 140, potassium 4.0, BUN of 12, creatinine 0.6, initially 2.10. Cardiology input noted and appreciated, echocardiogram ordered, we will follow report. Continue to follow Cardiothoracic input and recommendation. 08/28 patient is seen and examined at bedside, case discussed with the RN, no acute events overnight, patient remains admitted to the ICU, the time of my visit, awake, following command, NPO, she is scheduled to be taken to the operating room today for removal of Impella support by cardio thoracic surgeons, we will continue to follow input and recommendation. Limited 2D echo performed yesterday shows left ventricular cavity size is normal, Impella device measuring 5.6 cm into LV. Left ventricular ejection fraction 55-60%, no pericardial effusion. 08/29 patient is seen and examined at bedside, case discussed with the RN, no acute events overnight, patient remains admitted to the ICU, the time of my visit, awake, following command, NPO, she is scheduled to be taken to the operating room today for removal of Impella support by cardio thoracic surgeons, we will continue to follow input and recommendation. Limited 2D echo performed yesterday shows left ventricular cavity size is normal, Impella device measuring 5.6 cm into LV. Left ventricular ejection fraction 55-60%, no pericardial effusion. 08/30 patient is seen and examined at bedside, discussed with the RN, no acute events overnight, status post interval removal of Impella and placement of pe ricardial patch in the operating room by Cardiothoracic surgeon, 08/29/2025, tolerated the procedure well. Patient will remain admitted to the ICU, we will continue to follow Cardiothoracic input and recommendation. Follow a.m. labs. Continue Lasix, follow intake and output, daily chest x-ray, continue heparin drip, follow critical care input and recommendation. Patient completed 10 days of Rocephin and a dose of vancomycin. Completed three days of Ancef. 08/31 patient is seen and examined at bedside, discussed with the RN, no acute events overnight, patient remains admitted to the ICU, now she is intubated, mechanical ventilation, however awake, following commands, on low-dose Precedex, also on Lasix drip, Levophed drip, patient is status post interval removal of Impella support device per Cardiothoracic surgeon. Tolerated well. Hemoglobin today 9.1, hematocrit 27.4, ABG pH 7.48, pCO2 40, PO2 95.8, bicarb 29.1, chest x-ray pending. Continue to follow Cardiothoracic input recommendation, for continue care input and recommendation terms of extubation, wean off Levophed. 09/01 patient is seen and examined at bedside, remains admitted to the ICU, status post interval extubation. She is alert and oriented, following commands, remains on Levophed and Lasix drip. Chest tube in place. BP 113/46, hemoglobin 9.9, hematocrit 30.3, WBC 12.0, platelet count of 218. Sodium 138, potassium 3.9, BUN of 13, creatinine 0.9. Discussed with the RN, pending EP evaluation for possible pacemaker. We will follow, continue to follow Cardiothoracic input and recommendation. Critical care input noted and appreciated. Follow a.m. labs. 09/02 patient is seen and examined at bedside, case discussed with the RN, remains admitted to the ICU, at the time of my visit she is alert oriented x3, remains on Lasix Levophed getting IV antibiotics. Oriented patient is status post coronary artery bypass grafting, status post right femoral artery repair. Cardiothoracic input noted and appreciated, input has been noted, Impella has be en successfully unit, patient will remain on low-dose Levophed, Lasix, IV antibiotics, continue chest tube in place. Patient supplemental oxygen via nasal cannula at 2 L to keep oxygen saturation greater than 92%. Continue to follow critical care input recommendation, follow a.m. labs. 09/03 patient is seen and examined at bedside, case discussed with the RN, no acute events overnight, the patient remains admitted to the ICU, awake, following commands, currently off Levophed, maintaining good blood pressure support. Currently on IV antibiotics. Hemoglobin 9.3, hematocrit 28.9, platelet count of 301. Patient is status post interval removal of chest tubes. Remains on aspirin, atorvastatin, furosemide. Continue midodrine. Doppler of the lower extremities negative for DVT. Patient complained on my pain to the right leg, we will request arterial Doppler of the right leg, status post Impella removal. Continue to follow EP input recommendation in terms of pacemaker. 09/04 patient is seen and examined at bedside, case discussed with the RN, no acute events overnight, the patient remains admitted to the ICU, awake, following commands, currently off Levophed, maintaining good blood pressure support. Currently on IV antibiotics. Remains on aspirin, atorvastatin, furosemide. Continue midodrine. Doppler of the lower extremities negative for DVT. Patient complained on my pain to the right leg, we will request arterial Doppler of the right leg, status post Impella removal. Scheduled for pacemaker placement by spooler rubber strand Dr Lawson today. 09/05 Patient underwent pacemaker placement yesterday, no complications reported. Patient is off IV pressors. Vital signs are stable within normal limits 09/06 patient remains afebrile, vital signs within normal limit sugars are almost at goal. We will increase Lantus to 24 unit hs 09/07 patient is seen and examined at bedside, case discussed with the RN, no acute events overnight, the patient has been downgraded to the PCU, awake, following commands, currently off Levophed, maintaining good blood pressure. Currently on IV antibiotics. Remains on aspirin, atorvastatin, furosemide. Continue midodrine. Doppler of the lower extremities negative for DVT. Patient underwent successful pacemaker implantation 09/04/2024, tolerated the procedure well. Continue to follow Cardiology input and recommendation. We will have Physical therapy to evaluate the patient, we will discuss discharge plan with case management. 09/08 patient has been seen and examined at bedside, discussed with the RN, no acute events overnight, remains admitted to the PCU, she remains hemodynamically stable, alert oriented x3 at the time of my visit, she is complaining of left knee pain, on physical examination tenderness to palpation, with swollen, x-ray of the left knee has been ordered. Patient underwent successful pacemaker implantation 09/04/2024, tolerated the procedure well. Continue to follow Cardiology input and recommendation. We will have Physical therapy to evaluate the patient, we will discuss discharge plan with case management. 09/09 patient is seen and examined at bedside, discussed with the RN, no acute events overnight, the time of my visit patient comfortably in bed, alert oriented x3, feels weak but better compared to yesterday. Less swollen to the left knee area, lidocaine patch in place. X-ray of the left knee done, pending report. Discussed with the patient, plan to be discharged home in the next 24 hours, she will call family members to make it necessary arrangements in anticipation to discharge tomorrow. REVIEW OF SYSTEMS CONSTITUTIONAL: generalized fatigue, malaise NEUROLOGICAL: Denies headache, amaurosis fugax, motor weakness, sensory deficit, vertigo/spinning sensation, gait abnormalities, or tremors. ENT: No hearing loss, otalgia, otorrhea, rhinitis, rhinorrhea, hoarseness, or sore throat. CARDIOVASCULAR: Mild incisional chest pain, no shortness breath PULMONARY: Denies any shortness of breath, cough, phlegm/sputum, hemoptysis, pleuritic chest pain. SLEEP: Denies morning headaches, daytime somnolence or napping. Denies difficulty falling asleep, staying asleep, waking from sleep. Denies knowledge of snoring. GASTROINTESTINAL: No nausea, Denies any type of dysphagia to either liquids or solids. Denies vomiting, pyrosis, early satiety, abdominal pain, diarrhea, constipation, or changes in stool consistency or caliber. Denies coffee-ground emesis, hematemesis, hematochezia, or melanotic stools. GENITOURINARY: Denies frequency, urgency, nocturia, hematuria or incontinence (Storage/Irritative symptoms.) Low urinary stream, straining to void, urinary intermittency or hesitancy, splitting of the voiding stream, terminal dribbling. ENDOCRINOLOGIC: Denies polyuria, polydipsia, polyphagia or heat/cold intolerances. HEMATOLOGIC: Denies thrombophilia/previous clots, or coagulopathy/bleeding disorders. ONCOLOGIC: Denies personal history of malignancy. DERMATOLOGIC: Denies rashes or pruritus. PSYCHIATRIC: Denies any suicidal or homicidal ideation. Denies hallucinations. PHYSICAL EXAM GENERAL APPEARANCE: Extubated, awake, following commands. NEUROLOGICAL: Cranial nerves II-XII grossly intact. Motor is 5/5 in bilateral upper and lower extremities proximal to distal. No sensory deficits. HEENT: Face is symmetric. Pupils are equal and reactive. Extraocular movements are intact. NECK: Supple. No JVD. No thyromegaly. No submental, submandibular, pre- /postauricular, occipital or supraclavicular lymphadenopathy. CHEST: Normal chest expansion. No Telemetry. LUNGS: minimal crackles noted of the bilateral lung bases CARDIOVASCULAR: Regular. S1 and S2 normal. No appreciable rubs, murmurs or gallops. ABDOMEN: Soft, nontender, and nondistended. There is no rebound, voluntary guarding, or rigidity. : Deferred. No Coombs. EXTREMITIES: trace edema noted of the bilateral lower extremities SKIN: No skin breakdown. Vital Signs (last 8hr) Date Time Temp Pulse Resp B/P (MAP) Pulse Ox O2 Delivery O2 Flow Rate FiO2 09/09/25 08:12 97.9 80 18 130/73 97 Room Air 09/09/25 08:00 97 Room Air* 0 21 09/09/25 04:00 98.1 80 18 126/73 98 Room Air LABS: Laboratory: Test 09/09/25 11:12 09/09/25 04:12 09/08/25 16:12 09/07/25 17:50 Range/Units Whole Blood Glucose 193 H 70-110 MG/DL White Blood Count 9.2 4.8-10.8 K/uL Red Blood Count 3.23 L 4.00-5.50 MIL/uL Hemoglobin 9.9 L 12.0-16.0 g/dL Hematocrit 31.2 L 36-48 % Mean Corpuscular Volume 96.6 79-99 fL Mean Corpuscular Hemoglobin 30.7 27.0-33.0 pg Mean Corpuscular Hemoglobin Concent 31.7 L 32.0-36.0 g/dL Red Cell Distribution Width 16.7 H 11.0-15.5 % Platelet Count 315 130-400 K/uL Mean Platelet Volume 10.2 7.5-10.5 fL Nucleated Red Blood Cells 0.0 0.0-0.19 % Sodium Level 136 136-145 mmol/L Potassium Level 4.2 3.5-5.1 mmol/L Chloride Level 100 L 101-111 mmol/L Carbon Dioxide Level 30 21-32 mmol/L Blood Urea Nitrogen 14 7-18 mg/dL Creatinine 0.8 0.5-1.0 mg/dL Glomerular Filtration Rate Calc 85 >90 mL/min Random Glucose 162 H 70-105 mg/dL Total Calcium 8.7 8.5-10.1 mg/dL Magnesium Level 1.60 L 1.80-2.40 mg/dL Total Bilirubin 0.3 0.2-1.0 mg/dL Aspartate Amino Transf (AST/SGOT) 45 H 10-37 U/L Alanine Aminotransferase (ALT/SGPT) 24 12-78 U/L Alkaline Phosphatase 177 H 50-136 U/L Total Protein 7.6 6.0-8.3 g/dL Albumin 1.9 L 3.5-5.0 g/dL Bedside Glucose Comment Notified Nurse Influenza Type A Antigen Negative For Type A NEGATIVE Influenza Type B Antigen Negative For Type B NEGATIVE SARS-CoV-2 Antigen (Rapid) PRESUMPTIVE NEGATIVE NEGATIVE Current Medications Medications (Trade) Dose Ordered Sig/Elmer Route PRN Reason Start Time Stop Time Status Last Admin Dose Admin Acetaminophen (TYLenol 325MG TAB) 650 mg Q4H PRN PO Temp >38.3C(AFTER EXTUBATION) 08/20/25 17:00 09/04/25 10:40 DC Acetaminophen (TYLenol 325MG TAB) 650 mg Q6H PRN PO MILD PAIN (1-3) 08/13/25 16:30 09/04/25 10:40 DC 09/04/25 03:33 650 MG Acetaminophen (TYLenol 500MG TAB) 500 mg Q6H PRN PO TEMP < 101.1 AND/OR HEADACHE 08/14/25 14:30 09/13/25 14:29 08/26/25 10:41 500 MG Acetaminophen (TYLenol 500MG TAB) 1,000 mg Q6H PRN PO MILD PAIN (1-3) 09/04/25 10:30 10/04/25 10:29 09/08/25 23:55 1,000 MG Acetaminophen (TYLenol 650MG SUPPOSITORY) 650 mg Q4H PRN RC Temp >38.3C WHILE INTUBATED 08/20/25 17:00 09/19/25 16:59 Acetaminophen (acetaMINOPHEN 1,000MG/100ML) 1,000 mg Q6H6 IVPB 08/21/25 12:00 09/04/25 10:41 DC 09/04/25 07:06 1,000 MG Acetaminophen/ Codeine Phosphate (TYLenol-coDEINE TAB) 1 tab Q4H PRN PO MODERATE PAIN (4-6) 09/04/25 11:00 09/04/25 23:33 DC 09/04/25 14:27 1 TAB Acetaminophen/ Codeine Phosphate (TYLenol-coDEINE TAB) 2 tab Q4H PRN PO SEVERE PAIN (7-10) 09/04/25 10:30 09/04/25 23:33 DC Albumin Human 50 ml @ 0 mls/hr BID IV 08/18/25 09:00 08/23/25 08:59 DC 08/22/25 20:56 100 MLS/HR Albumin Human 250 ml @ 0 mls/hr AD PRN IV IF HEMODYNAMICALLY UNSTABLE 08/20/25 17:00 08/20/25 22:46 DC 08/20/25 22:46 0 MLS/HR Aminocaproic Acid 27690 mg/Sodium Chloride 310 ml @ 25 mls/hr AD IV 08/20/25 17:00 08/21/25 05:23 DC Aminocaproic Acid 00596 mg/Sodium Chloride 480 ml @ 0 mls/hr AD PRN IV BLEEDING CONTROL 08/20/25 08:00 09/02/25 07:55 DC Aminocaproic Acid 89973 mg/Sodium Chloride 480 ml @ 0 mls/hr AD PRN IV BLEEDING CONTROL 08/20/25 09:00 08/20/25 09:03 DC Amiodarone HCl (pacERONE 200MG) 200 mg BID PO 08/22/25 09:00 08/29/25 21:00 DC 08/28/25 20:25 200 MG Amiodarone HCl 360 mg/Dextrose 207.2 ml @ 33.3 mls/hr AD IV 08/20/25 21:00 08/20/25 21:05 DC Amiodarone HCl 540 mg/Dextrose 310.8 ml @ 16.7 mls/hr [id number] IV 08/21/25 03:00 08/27/25 06:20 DC 08/21/25 20:12 16.7 MLS/HR Amiodarone HCL/ Dextrose 207.2 ml @ 33.3 mls/hr AD IV 08/20/25 21:30 08/21/25 10:49 DC 08/20/25 21:24 33.3 MLS/HR Aspirin (Aspirin 81mg Chew Tab) 81 mg DAILY PO 08/14/25 09:00 09/13/25 08:59 09/09/25 08:14 81 MG Atorvastatin Calcium (LIPItor 40MG) 40 mg HS PO 08/13/25 21:00 09/12/25 20:59 09/08/25 19:50 40 MG Benzocaine (Cepacol Sore Throat Lozenge) 1 each Q4H PRN MM SORE THROAT 08/26/25 11:30 09/25/25 11:29 09/04/25 00:35 1 EACH Bisacodyl (DulcoLAX) 10 mg DAILY RC 08/17/25 09:00 08/20/25 08:59 DC 08/18/25 07:58 10 MG Calcium Carbonate (Tums 500 Mg Chew Tab) 500 tab QID PRN PO HEARTBURN 08/19/25 12:00 08/20/25 16:32 DC 08/20/25 05:10 1 TAB Calcium Carbonate (Tums 500 Mg Chew Tab) 500 tab TID PRN PO GI GAS 09/06/25 11:30 10/06/25 11:29 09/07/25 20:46 1 TAB Calcium Gluconate 1 gm/Sodium Chloride 60 ml @ 200 mls/hr AD PRN IV HYPOCALCEMIA 08/20/25 17:00 09/07/25 20:17 DC 08/30/25 03:43 200 MLS/HR Cefazolin Sodium (Ancef) 2 gm ONCALL IVP 08/19/25 19:30 08/21/25 08:36 DC 08/20/25 16:30 2 GM Cefazolin Sodium (Ancef) 2 gm Q8H IVPB 08/20/25 22:00 08/21/25 14:01 DC 08/21/25 13:45 2 GM Ceftriaxone Sodium (Rocephin 2gm Inj) 2 gm Q24H IVPB 08/14/25 11:30 08/24/25 11:29 DC 08/23/25 12:16 2 GM Chlordiazepoxide HCl (LIBrium 25 MG CAP) 25 mg Q2H PRN PO ALCOHOL WITHDRAWAL PROTOCOL 08/14/25 14:30 08/20/25 16:32 DC 08/16/25 23:38 25 MG Chlordiazepoxide HCl (LIBrium 25 MG CAP) 50 mg Q1H PRN PO ALCOHOL WITHDRAWAL PROTOCOL 08/14/25 14:30 08/20/25 16:32 DC Dexmedetomidine/ Sodium Chloride (PRECEdex 400MCG/ 100ML-NS) 400 mcg PROTOCOL IV 08/20/25 20:30 09/07/25 20:17 DC 08/31/25 06:18 400 MCG Dextrose (D50w) 50 ml AD PRN IV HYPOGLYCEMIA PROTOCOL 08/20/25 17:00 09/19/25 16:59 Dextrose (D50w) 50 ml AD PRN IV HYPOGLYCEMIA PROTOCOL 08/13/25 20:00 08/20/25 22:03 DC Diphenhydramine HCl (BENAdryl INJ) 25 mg ONCE PRN IV ITCHING 08/15/25 23:00 08/17/25 22:59 DC Docusate Sodium (COLace 100MG CAP) 100 mg BID PRN PO CONSTIPATION 08/14/25 11:00 09/13/25 10:59 09/04/25 11:31 100 MG Dopamine HCl/ Dextrose 250 ml @ 0 mls/hr PROTOCOL IV 08/13/25 16:00 09/07/25 20:15 DC 08/16/25 16:41 3 MLS/HR Enoxaparin Sodium (Lovenox) 40 mg DAILY SQ 09/03/25 09:00 09/04/25 10:33 DC 09/03/25 08:22 40 MG Epinephrine HCl 10 mg/Sodium Chloride 250 ml @ 14.091 mls/ hr AD PRN IV POST-OP CARDIOVASCULAR ORDERS 08/20/25 17:00 08/21/25 10:49 DC Epinephrine HCl 10 mg/Sodium Chloride 250 ml @ 0 mls/hr AD PRN IV TITRATE 08/20/25 08:00 09/07/25 20:17 DC 08/26/25 16:56 0 MLS/HR Epinephrine HCl 10 mg/Sodium Chloride 250 ml @ 0 mls/hr AD PRN IV TITRATE 08/20/25 09:00 08/20/25 09:03 DC Famotidine (Pepcid 20mg Vial) 20 mg BID IV 08/20/25 21:00 08/22/25 08:20 DC 08/21/25 20:17 20 MG Famotidine (Pepcid 20mg Tab) 20 mg BID PO 08/22/25 09:00 09/21/25 08:59 09/09/25 08:15 20 MG Folic Acid (FOLic ACID 1 MG TABLET) 1 mg DAILY PO 08/15/25 09:00 08/17/25 09:01 DC 08/17/25 07:46 1 MG Furosemide (LASix 20MG TAB) 20 mg BID@09,17 PO 09/05/25 09:00 10/05/25 08:59 09/09/25 08:14 20 MG Furosemide (LASix 20MG VIAL) 20 mg Q12H IV 08/21/25 11:30 08/22/25 14:17 DC 08/22/25 11:53 20 MG Furosemide (LASix 20MG VIAL) 20 mg Q12H IV 08/22/25 21:00 08/23/25 11:37 DC 08/23/25 09:50 20 MG Furosemide (LASix 20MG VIAL) 40 mg Q12H IV 08/22/25 21:00 08/22/25 14:32 DC Furosemide (LASix 40MG VIAL) 40 mg Q12H IV 08/23/25 11:30 08/30/25 11:08 DC 08/29/25 22:38 40 MG Furosemide (LASix 40MG VIAL) 40 mg Q12H IV 09/02/25 11:00 09/05/25 08:55 DC 09/04/25 21:35 40 MG Furosemide 100 mg/ Sodium Chloride 100 ml @ 0 mls/hr PROTOCOL IV 08/30/25 11:30 09/02/25 10:56 DC 09/02/25 09:12 10 MLS/HR Gabapentin (NEURontin 300 MG CAP) 300 mg TID PO 08/23/25 14:00 09/22/25 13:59 09/09/25 08:14 300 MG Glucagon (Glucagon 1mg Kit) 1 mg AD PRN IM HYPOGLYCEMIA PROTOCOL 08/20/25 17:00 09/19/25 16:59 Glucagon (Glucagon 1mg Kit) 1 mg AD PRN IM HYPOGLYCEMIA PROTOCOL 08/13/25 20:00 08/21/25 10:49 DC Heparin Sodium (Porcine) (HEParin 5,000 UNIT VIAL) *calculation based on ACTUAL B... AD PRN IV HEPARIN PROTOCOL 08/13/25 16:30 08/20/25 16:32 DC 08/17/25 04:46 3,175 UNIT Heparin Sodium/ Dextrose 250 ml @ 0 mls/hr PROTOCOL IV 08/21/25 11:30 09/03/25 06:32 DC 08/28/25 15:28 10.54 MLS/HR Heparin Sodium/ Dextrose 250 ml @ 0 mls/hr Q6H IV 08/13/25 16:30 08/20/25 16:32 DC 08/19/25 22:03 11.78 MLS/HR Insulin Glargine (LANtus 100 UNITS/ML 10 ML VIAL) 5 units BID@0730,2100 SQ 08/16/25 21:00 08/17/25 09:31 DC 08/16/25 21:21 5 UNITS Insulin Glargine (LANtus 100 UNITS/ML 10 ML VIAL) 10 units HS SQ 08/13/25 21:00 08/14/25 06:16 DC 08/13/25 20:21 10 UNITS Insulin Glargine (LANtus 100 UNITS/ML 10 ML VIAL) 15 units DAILY SQ 08/23/25 09:00 08/28/25 07:20 DC 08/27/25 08:35 15 UNITS Insulin Glargine (LANtus 100 UNITS/ML 10 ML VIAL) 20 units DAILY SQ 08/14/25 09:00 08/15/25 07:24 DC 08/14/25 08:01 20 UNITS Insulin Glargine (LANtus 100 UNITS/ML 10 ML VIAL) 20 units DAILY SQ 08/28/25 09:00 09/06/25 09:44 DC 09/05/25 08:06 20 UNITS Insulin Glargine (LANtus 100 UNITS/ML 10 ML VIAL) 24 units DAILY SQ 09/07/25 09:00 10/07/25 08:59 09/09/25 08:23 24 UNITS Insulin Glargine (LANtus 100 UNITS/ML 10 ML VIAL) 30 units DAILY SQ 08/15/25 09:00 08/16/25 07:19 DC 08/15/25 08:28 30 UNITS Insulin Glargine (LANtus 100 UNITS/ML 10 ML VIAL) 35 units DAILY SQ 08/16/25 09:00 08/19/25 07:35 DC 08/18/25 07:59 35 UNITS Insulin Glargine (LANtus 100 UNITS/ML 10 ML VIAL) 42 units DAILY SQ 08/19/25 09:00 08/20/25 06:22 DC 08/19/25 09:40 42 UNITS Insulin Glargine (LANtus 100 UNITS/ML 10 ML VIAL) 45 units DAILY SQ 08/20/25 09:00 08/20/25 16:32 DC Insulin Human Lispro (HumaLOG LISpro 100 UNIT/ML 3ML) INSULIN SLIDING SCAL... ACHS SQ 08/16/25 21:00 08/17/25 09:31 DC Insulin Human Regular (humuLIN R 100 UNIT/ML 3ML) 3 unit TIDAC SQ 08/27/25 07:30 08/27/25 20:56 DC 08/27/25 16:47 3 UNIT Insulin Human Regular (humuLIN R 100 UNIT/ML 3ML) 5 unit TIDAC SQ 08/14/25 17:00 08/15/25 07:24 DC 08/15/25 07:03 5 UNIT Insulin Human Regular (humuLIN R 100 UNIT/ML 3ML) 6 unit TIDAC SQ 08/28/25 07:30 09/27/25 07:29 09/09/25 11:31 6 UNIT Insulin Human Regular (humuLIN R 100 UNIT/ML 3ML) 8 unit TIDAC SQ 08/15/25 07:30 08/15/25 22:46 DC 08/15/25 16:02 8 UNIT Insulin Human Regular (humuLIN R 100 UNIT/ML 3ML) 10 unit TIDAC SQ 08/16/25 07:30 08/17/25 21:12 DC 08/17/25 16:09 10 UNIT Insulin Human Regular (humuLIN R 100 UNIT/ML 3ML) 12 unit TIDAC SQ 08/18/25 07:30 08/18/25 20:19 DC 08/18/25 16:39 12 UNIT Insulin Human Regular (humuLIN R 100 UNIT/ML 3ML) 16 unit TIDAC SQ 08/19/25 07:30 08/20/25 06:22 DC 08/19/25 16:47 16 UNIT Insulin Human Regular (humuLIN R 100 UNIT/ML 3ML) 17 unit TIDAC SQ 08/20/25 07:30 08/20/25 16:32 DC Insulin Human Regular (humuLIN R 100 UNIT/ML 3ML) INSULIN SLIDING SCAL... ACHS SQ 08/17/25 16:30 08/20/25 16:32 DC 08/19/25 21:31 8 UNIT Insulin Human Regular (humuLIN R 100 UNIT/ML 3ML) INSULIN SLIDING SCAL... ACHS SQ 08/22/25 11:30 08/22/25 21:32 DC 08/22/25 20:58 3 UNIT Insulin Human Regular (humuLIN R 100 UNIT/ML 3ML) INSULIN SLIDING SCAL... ACHS SQ 08/23/25 07:30 09/22/25 07:29 09/09/25 11:32 2 UNIT Insulin Human Regular (humuLIN R 100 UNIT/ML 3ML) INSULIN SLIDING SCAL... ACHS SQ 08/13/25 16:30 08/16/25 20:46 DC 08/16/25 20:01 4 UNIT Insulin Human Regular 100 unit/ Sodium Chloride 100 ml @ 0 mls/hr AD IV 08/20/25 17:00 08/22/25 16:59 DC 08/21/25 15:00 5 MLS/HR Iron Sucrose (VenoFER) 200 mg DAILY IV 08/21/25 13:00 08/23/25 09:43 DC 08/22/25 11:53 200 MG Iron Sucrose (VenoFER) 200 mg DAILY IV 08/23/25 09:00 08/26/25 08:57 DC 08/25/25 09:25 200 MG Lidocaine (Lidocaine Patch 4%) 1 each DAILY TP 08/19/25 09:00 09/18/25 08:59 09/09/25 08:15 1 EACH Lidocaine HCl/ Dextrose 250 ml @ 0 mls/hr PROTOCOL IV 08/21/25 00:00 09/07/25 20:17 DC Lidocaine/ Prilocaine (Emla) 1 appl ONCE TP 08/31/25 13:30 09/01/25 07:33 DC 08/31/25 13:59 1 APPL Magnesium Sulfate 50 ml @ 12.5 mls/hr AD PRN IV MAG LEVEL LESS THAN 2.0 08/20/25 17:00 09/02/25 09:48 DC 09/02/25 09:19 12.5 MLS/HR Magnesium Sulfate 50 ml @ 0 mls/hr PROTOCOL IV 09/02/25 10:00 10/02/25 09:59 09/09/25 06:13 25 MLS/HR Magnesium Sulfate 50 ml @ 0 mls/hr PROTOCOL IV 08/13/25 16:30 08/21/25 10:49 DC 08/21/25 05:58 25 MLS/HR Magnesium Sulfate 50 ml @ 0 mls/hr PROTOCOL IV 09/07/25 09:30 09/07/25 09:04 DC Magnesium Sulfate 50 ml @ 0 mls/hr PROTOCOL IV 09/09/25 10:00 09/09/25 09:37 DC Metoprolol Succinate (TopROL XL) 12.5 mg DAILY PO 09/05/25 09:00 10/05/25 08:59 09/09/25 08:14 12.5 MG Midodrine (PROAMatine 5 MG TABLET) 5 mg Q6H6 PO 08/26/25 16:00 09/01/25 10:53 DC 09/01/25 06:57 5 MG Midodrine (PROAMatine 5 MG TABLET) 10 mg Q6H6 PO 09/01/25 12:00 09/02/25 16:25 DC 09/02/25 12:32 10 MG Midodrine (PROAMatine 5 MG TABLET) 15 mg Q6H6 PO 09/02/25 18:00 10/02/25 17:59 09/09/25 06:12 15 MG Morphine Sulfate (morPHINE 2MG SYG) 0.5 mg Q2H PRN IV MODERATE PAIN (4-6) 08/20/25 17:00 08/20/25 18:07 DC Morphine Sulfate (morPHINE 2MG SYG) 2 mg Q6H PRN IVP SEVERE PAIN (7-10) 08/19/25 18:00 08/20/25 16:32 DC 08/19/25 17:50 2 MG Morphine Sulfate (morPHINE 4MG SYG) 0.5 mg Q2H PRN IV MODERATE PAIN (4-6) 08/20/25 18:30 08/21/25 16:59 DC Morphine Sulfate (morPHINE 4MG SYG) 1 mg Q2H PRN IV SEVERE PAIN (7-10) 08/20/25 17:00 08/21/25 16:59 DC Morphine Sulfate (morPHINE 4MG SYG) 2 mg Q6H PRN IVP SEVERE PAIN (7-10) 08/14/25 09:30 08/19/25 12:29 DC 08/19/25 12:22 2 MG Multivitamins Therapeutic (Multivitamin Tablet) 1 tab DAILY PO 08/15/25 09:00 09/14/25 08:59 09/09/25 08:14 1 TAB Nitroglycerin/ Dextrose 0 ml @ 0 mls/hr AD IV 08/20/25 17:00 08/23/25 16:59 DC Nitroglycerin/ Dextrose 250 ml @ 0 mls/hr PROTOCOL IV 08/20/25 03:30 08/20/25 16:32 DC 08/20/25 03:12 1.5 MLS/HR Norepinephrine 250 ml @ 0 mls/hr PROTOCOL IV 08/13/25 15:30 08/20/25 08:31 DC Norepinephrine Bitartrate 250 ml @ 0 mls/hr AD PRN IV TITRATE 08/20/25 08:00 09/07/25 20:17 DC 09/01/25 23:29 6.18 MLS/HR Norepinephrine Bitartrate 250 ml @ 0 mls/hr AD PRN IV TITRATE 08/20/25 09:00 08/20/25 09:03 DC Norepinephrine Bitartrate 8 mg/ Dextrose 250 ml @ 0 mls/hr AD PRN IV POST-OP CARDIOVASCULAR ORDERS 08/20/25 17:00 08/21/25 10:49 DC Ondansetron HCl (zoFRAN 4MG INJ) 4 mg Q4H PRN IV NAUSEA 08/14/25 14:30 08/20/25 16:32 DC 08/14/25 14:17 4 MG Ondansetron HCl (zoFRAN 4MG INJ) 4 mg Q6H PRN IV NAUSEA/VOMITING 08/20/25 17:00 09/19/25 16:59 08/29/25 12:47 4 MG Ondansetron HCl (zoFRAN 4MG INJ) 4 mg Q6H PRN IVP NAUSEA/VOMITING 08/13/25 16:30 08/14/25 14:08 DC Pantoprazole Sodium (PROTonix 40MG INJ) 40 mg Q12H IVP 08/17/25 16:30 08/20/25 16:32 DC 08/20/25 03:53 40 MG Pantoprazole Sodium (PROTonix 40MG INJ) 40 mg Q24H IVP 08/13/25 16:30 08/17/25 11:10 DC 08/16/25 16:07 40 MG Pharmacy Profile Note (Pharmacy Communication) 1 each PROTOCOL PRN MISC ETOH Withdrawal Score changes 08/14/25 14:30 08/14/25 14:08 DC Phenylephrine HCl 100 mg/Sodium Chloride 250 ml @ 0 mls/hr PROTOCOL IV 08/26/25 20:30 09/07/25 20:17 DC Piperacillin Sod/ Tazobactam Sod (Zosyn 3.375gm+NS 50ml) 3.375 gm Q8H IV 08/30/25 10:00 09/09/25 09:59 DC 09/09/25 03:07 3.375 GM Polyethylene Glycol (MIRalax 3350 17 GM POWD.PACK) 17 gm DAILY PO 08/15/25 09:00 09/14/25 08:59 09/08/25 10:04 17 GM Potassium Phosphate 250 ml @ 42 mls/hr AD PRN IV LOW PHOS LEVEL 08/20/25 17:00 09/19/25 16:59 Potassium Chloride 100 ml @ 100 mls/hr AD PRN IV HYPOKALEMIA 08/20/25 17:00 09/19/25 16:59 09/06/25 04:59 100 MLS/HR Potassium Chloride 100 ml @ 100 mls/hr AD PRN IV POTASSIUM PROTOCOL 08/13/25 16:30 08/20/25 16:32 DC 08/16/25 16:07 100 MLS/HR Potassium Chloride (K-Dur/Klor-Con 20meq) 20 meq AD PRN PO POTASSIUM PROTOCOL 08/13/25 16:30 08/20/25 16:32 DC 08/15/25 08:23 20 MEQ Potassium Chloride (KCl 10% Elixir 20meq/15ml) 20 meq AD PRN PO POTASSIUM PROTOCOL 08/13/25 16:30 08/20/25 16:32 DC Promethazine HCl (Phenergan) 25 mg Q6H PRN PO NAUSEA 08/14/25 14:30 08/20/25 16:32 DC Propofol 100 ml @ 0 mls/hr AD PRN IV SEDATION 08/20/25 17:00 08/24/25 17:00 DC Sodium Bicarbonate 25 meq/Dextrose 1,000 ml @ 0 mls/hr Q0M IV 08/14/25 00:30 09/07/25 20:15 DC 08/28/25 16:29 14 MLS/HR Sodium Bicarbonate 25 meq/Dextrose 1,000 ml @ 0 mls/hr Q0M IVP 08/14/25 00:30 08/14/25 00:15 DC Sodium Bicarbonate (Sodium Bicarb 50meq 50ml Vial) 50 meq AD PRN IV OTHER[SEE DOSING INSTRUCTIONS] 08/20/25 17:00 08/23/25 16:59 DC 08/21/25 01:19 50 MEQ Sodium Chloride 500 ml @ 500 mls/hr Q1H IV 08/20/25 00:33 08/20/25 03:16 DC 08/20/25 00:53 500 MLS/HR Sodium Chloride 500 ml @ 0 mls/hr AD IV 08/20/25 17:00 09/19/25 16:59 Sodium Chloride 1,000 ml @ 10 mls/hr ONCE IV 08/20/25 17:00 08/21/25 16:59 DC 08/20/25 22:31 10 MLS/HR Sodium Chloride (NS Flush 10ml) 10 ml Q8H PRN IVP IV LINE FLUSH 08/20/25 17:00 09/19/25 16:59 Thiamine HCl (Vitamin B-1) 300 mg DAILY IV 08/15/25 09:00 08/17/25 09:01 DC 08/17/25 07:46 300 MG Ticagrelor (BRILinta) 90 mg BID PO 08/14/25 09:00 08/14/25 21:19 DC 08/14/25 20:09 90 MG Tramadol HCl (UltRAM) 25 mg Q6H PRN PO MODERATE PAIN (4-6) 08/20/25 17:00 08/25/25 16:59 DC Tramadol HCl (UltRAM) 25 mg Q6H PRN PO MODERATE PAIN (4-6) 08/26/25 11:00 08/31/25 10:59 DC 08/27/25 03:12 25 MG Tramadol HCl (UltRAM) 25 mg Q6H PRN PO moderate pain 4-6 09/04/25 23:30 09/09/25 23:29 Tramadol HCl (UltRAM) 50 mg Q6H PRN PO SEVERE PAIN (7-10) 08/20/25 17:00 08/25/25 16:59 DC 08/25/25 09:24 50 MG Tramadol HCl (UltRAM) 50 mg Q6H PRN PO SEVERE PAIN (7-10) 08/26/25 11:00 08/31/25 10:59 DC 08/29/25 05:39 50 MG Tramadol HCl (UltRAM) 50 mg Q6H PRN PO SEVERE PAIN (7-10) 09/04/25 23:30 09/09/25 23:29 09/09/25 04:17 50 MG Vancomycin HCl 250 ml @ 125 mls/hr Q12H IV 08/18/25 09:00 08/19/25 20:54 DC 08/19/25 09:39 125 MLS/HR Vancomycin HCl 250 ml @ 125 mls/hr Q12H IV 08/24/25 23:00 08/26/25 21:47 DC 08/26/25 11:47 125 MLS/HR Vancomycin HCl 250 ml @ 125 mls/hr Q8H IV 08/19/25 21:30 08/21/25 00:23 DC 08/20/25 22:26 125 MLS/HR Vancomycin HCl 250 ml @ 125 mls/hr Q8H IV 08/21/25 06:30 08/21/25 08:35 DC 08/21/25 08:15 125 MLS/HR Vancomycin HCl 250 ml @ 125 mls/hr Q8H IV 08/21/25 08:00 08/21/25 06:28 DC Vancomycin HCl 250 ml @ 125 mls/hr Q8H IV 08/21/25 16:30 08/24/25 16:54 DC 08/24/25 09:32 125 MLS/HR Vancomycin HCl (Vancomycin Protocol) 1 each AD IV 08/17/25 22:00 08/26/25 21:47 DC Wound Care/ Dressing Products (Venelex Ointment) 1 GM BID TP 09/01/25 09:00 09/30/25 20:59 09/09/25 08:16 1 GM Wound Care/ Dressing Products (Venelex Ointment) 1 gm BID TP 08/31/25 21:00 09/01/25 07:35 DC 08/31/25 21:26 1 GM DIAGNOSTICS / RADIOLOGY: [ ] ASSESSMENT: Cardiogenic shock with lactic acidosis, POA NSTEMI/ACS, POA Complete heart block, POA History of multivessel coronary artery disease, POA History of cocaine use disorder, POA Severe nonketotic hyperglycemia, POA History of to poorly controlled type 2 diabetes mellitus, POA Lactic acidosis, POA History of anemia, POA History of gastritis, POA History of hypertension, POA History of PTSD/anxiety, POA Obesity, POA Medical noncompliance, POA PLAN: patient is seen and examined at bedside, discussed with the RN, no acute events overnight, the time of my visit patient comfortably in bed, alert oriented x3, feels weak but better compared to yesterday. Less swollen to the left knee area, lidocaine patch in place. X-ray of the left knee done, pending report. Discussed with the patient, plan to be discharged home in the next 24 hours, she will call family members to make it necessary arrangements in anticipation to discharge tomorrow. NEURO: MINIMIZE CENTRAL ACTING MEDICATIONS POSSIBLE. FALL PRECAUTIONS. WELL LIGHTED ROOM THROUGH THE DAY AND MINIMIZE INTERRUPTIONS THROUGH THE NIGHT TO PREVENT ACUTE DELIRIUM. PULMONARY: SUPPLEMENTAL 02 NEEDED OUT OF BED TO CHAIR TOLERATED MAINTAIN ASPIRATION PRECAUTIONS AT ALL TIMES Follow up with Pulmonary/critical Care Medicine, appreciate assistance CARDIOVASCULAR: FOLLOW HEMODYNAMICS. VITAL SIGNS PER FACILITY PROTOCOL Follow up with Cardiology, appreciate assistance -transitioned to oral diuretics -start low dose beta santos Follow up with EP Cardiology appreciate assistance -follow up in clinic in 7-10 days GI & NUTRITION: CONTINUE NUTRITIONAL SUPPORT ASPIRATIONS PRECAUTIONS PROKINETIC AGENTS AND LAXATIVES NEEDED KIDNEYS & ELECTROLYTES: STRICT MONITORING OF INTAKE AND OUTPUT DAILY WEIGHTS AVOID NEPHROTOXIC AGENTS MONITOR ELECTROLYTES AND REPLACE NEEDED GOAL URINE OUTPUT OF 30ML/HR OR 0.5ML/KG/HR MEDICATIONS TO BE DOSED ACCORDING TO RENAL FUNCTION. AVOID CONTRAST IF POSSIBLE ENDOCRINE: Increase Lantus to 24 units HS Continue regular insulin 6 units t.i.d. a.c. Continue regular insulin sliding scale MAINTAIN BLOOD GLUCOSE BETWEEN 100-180 AT ALL TIMES. INSULIN SLIDING SCALE FOR BLOOD GLUCOSE MANAGEMENT HYPOGLYCEMIA AND HYPERGLYCEMIA PROTOCOL IN PLACE INFECTIOUS DISEASE: TREND TEMPERATURE, WBC AND PROCALCITONIN LEVEL FOLLOW CULTURES, DEESCALATE ANTIBIOTICS SOON POSSIBLE. PANCULTURE IF NEW ONSET FEVER HEMATOLOGY & COAGULATION: MONITOR H&H. KEEP HGB > 7 TRANSFUSE 1 UNIT OF PRBC FOR HGB < 7 TRANSFUSE 1 PACK OF PLATELETS OF PLATELETS < 20, 000 WATCH FOR ANY SIGNS AND SYMPTOMS OF BLEEDING SKIN: PRESSURE ULCER PREVENTION PER FACILITY PROTOCOL SPECIALTY MATTRESS NEEDED ORTHO/REHAB CONTINUE PT/OT PRN: MEDICATIONS TYLENOL 650 MG PO EVERY 4 HRS FOR FEVER ZOFRAN 4 MG IV EVERY 6 HRS FOR N/V HYDRALAZINE 5 MG IV EVERY 4 HRS SYSTOLIC PRESSURE > 160 BOWEL REGIMENT: LACTULOSE 20 GM PO BID PRN CONSTIPATION SUPPORTIVE MEASURES: CONTINUE GI AND DVT PROPHYLAXIS DISPOSITION: PENDING IMPROVEMENT IN CLINICAL CONDITION ALL QUESTIONS ANSWERED TIME SPENT: > 35 MIN GEE MARTIN MD Sep 09, 2025 11:42
--- NOTE | 2025-09-09 11:45 | NUR ---
Attempted to work with patient however she refused PT stating she would like to speak with Leroy, flooring grader. Explained to patient the benefit of participating with PT however she stated "they are getting rid of me too soon. You guys should have been working with more sooner". Explained to patient PT had been on the case sooner however due to her medical complexity (Impella placement, femoral sheath, pacememker placement and intubation) she was not ready to proceed with physical activity. She reiterated she was not going to do anything until she spoke to Leroy. Patient presented very emotional. PT allowed patient to vent and attempted to provide words of encouragement. PT team to follow.
--- NOTE | 2025-09-09 12:01 | HMCIMG ---
EXAM: CR left Knee, 3 View. CLINICAL HISTORY: pain and swelling COMPARISON: None provided. FINDINGS: BONES: No acute fracture or aggressive appearing osseous lesion. JOINTS: Mild to moderate medial compartment predominant tricompartmental knee osteoarthritis. There is mild fullness of the suprapatellar recess appreciated. SOFT TISSUES: The soft tissues are unremarkable. IMPRESSION: 1. No acute osseous injury. 2. Mild to moderate medial compartment predominant tricompartmental knee osteoarthritis. 3. Mild suprapatellar recess fullness, could represent effusion /[place]
--- NOTE | 2025-09-09 12:05 | NUR ---
DCP Home Spoke to pt regarding discharge plan, states she will be going home with son and has a family friend to help assist once home. Emphasized importance of working with physical therapy, verbalized she will work with PT this afternoon.
--- NOTE | 2025-09-09 13:50 | NUR ---
Patient agreed to participate with PT while Leroy, floor clerk, was present. Patient continued to require significant verbal cues for performance of bed mobility and sit-stand transfers, requiring max to total assistance with task due to weakness and debility. Patient was able to sit EOB x 7 min with verbal cues to correct posture as she has tendency to lean to the sides. Patient continued to report RLE pain during PT session, requesting leg be adjusted several times. Patient also required moderate verbal cues to not use her UE's due to CABG precautions, however she continued to attempt to us them for support. Patient also reported feeling dizzy and light headed as well as feeling as if she wanted to vomit. Explained to patient these are all symptoms of her prolonged bedbound status. Patient would have crying bouts and showed signs of near anxiety (breathing fast and crying at times). Attempted one sit-stand requiring total assistance and patient unable to stand fully erect, crying and screaming out in pain. Patient was placed back to bed, verbally instructed on what to expect when being put back to bed, enough staff was present and would assist. She verbalized understanding, however crying.
--- NOTE | 2025-09-09 14:41 | NUR ---
[facility] Follow-up: Patient re-assessed by wound healing team. See wound assessment. Assessment and recommendations provided to primary nurse. Education provided.
--- NOTE | 2025-09-09 15:54 | PN ---
PROGRESS NOTE Date of Service: Sep 09, 2025 Time of Service: 15:51 SUBJECTIVE: Patient is evaluated at bedside in room 232 for wound care follow up. Patient is awake, alert, and oriented x3. No signs of distress noted. Patient's mother at bedside during evaluation. REVIEW OF SYSTEMS CONSTITUTIONAL: Denies fever, chills, or fatigue. HEAD/FACE: No signs of trauma. EENT: Denies eye pain, blurred vision, double vision, or light sensitivity. RESPIRATORY: Denies shortness of breath, cough, wheezing CARDIOVASCULAR: Denies chest pain, palpitation, syncope GASTROINTESTINAL/ABDOMINAL: Denies abdominal pain, constipation, diarrhea, nausea or vomiting GENITOURINARY: Denies dysuria or hematuria. MUSCULOSKELETAL: Denies joint pain, tenderness, or trauma. INTEGUMENTARY: Denies rash or itchiness NEUROLOGICAL/PSYCH: Denies anxiety, depression, heat or cold intolerance. PHYSICAL EXAM EYES: Anicteric. Pupils equal and reactive. HENT: No oral thrush seen, moist Oral mucosa NECK: Supple, no JVD or thyromegaly. LUNGS: Good air entry. No rales, no rhonchi. CARDIOVASCULAR: S1, S2 regular. No murmur heard. ABDOMEN: Soft, non tender, bowel sounds present, no organomegaly CENTRAL NERVOUS SYSTEM: Awake, alert, oriented x 3. No focal deficits. SKIN: stage II ulcer noted to sacrum noted with granulation with mild periwound erythema, minimal serous drainage noted. Wound decrease in size. Wound is improving. LYMPHATICS: No peripheral lymphadenopathy MUSCULOSKELETAL: No joint swelling, erythema or tenderness. EXTREMITIES: No cyanosis or clubbing, no pressure ulcer. GENITOURINARY: No dysuria or hematuria Vital Signs (last 8hr) Date Time Temp Pulse Resp B/P (MAP) Pulse Ox O2 Delivery O2 Flow Rate FiO2 09/09/25 11:52 98.4 85 18 127/78 98 Room Air 09/09/25 08:12 97.9 80 18 130/73 97 Room Air 09/09/25 08:00 97 Room Air* 0 21 LABS: Laboratory: Test 09/09/25 11:12 09/09/25 04:12 09/08/25 16:12 09/07/25 17:50 Range/Units Whole Blood Glucose 193 H 70-110 MG/DL White Blood Count 9.2 4.8-10.8 K/uL Red Blood Count 3.23 L 4.00-5.50 MIL/uL Hemoglobin 9.9 L 12.0-16.0 g/dL Hematocrit 31.2 L 36-48 % Mean Corpuscular Volume 96.6 79-99 fL Mean Corpuscular Hemoglobin 30.7 27.0-33.0 pg Mean Corpuscular Hemoglobin Concent 31.7 L 32.0-36.0 g/dL Red Cell Distribution Width 16.7 H 11.0-15.5 % Platelet Count 315 130-400 K/uL Mean Platelet Volume 10.2 7.5-10.5 fL Nucleated Red Blood Cells 0.0 0.0-0.19 % Sodium Level 136 136-145 mmol/L Potassium Level 4.2 3.5-5.1 mmol/L Chloride Level 100 L 101-111 mmol/L Carbon Dioxide Level 30 21-32 mmol/L Blood Urea Nitrogen 14 7-18 mg/dL Creatinine 0.8 0.5-1.0 mg/dL Glomerular Filtration Rate Calc 85 >90 mL/min Random Glucose 162 H 70-105 mg/dL Total Calcium 8.7 8.5-10.1 mg/dL Magnesium Level 1.60 L 1.80-2.40 mg/dL Total Bilirubin 0.3 0.2-1.0 mg/dL Aspartate Amino Transf (AST/SGOT) 45 H 10-37 U/L Alanine Aminotransferase (ALT/SGPT) 24 12-78 U/L Alkaline Phosphatase 177 H 50-136 U/L Total Protein 7.6 6.0-8.3 g/dL Albumin 1.9 L 3.5-5.0 g/dL Bedside Glucose Comment Notified Nurse Influenza Type A Antigen Negative For Type A NEGATIVE Influenza Type B Antigen Negative For Type B NEGATIVE SARS-CoV-2 Antigen (Rapid) PRESUMPTIVE NEGATIVE NEGATIVE DIAGNOSTICS / RADIOLOGY: [ ] ASSESSMENT: Stage II ulcer to sacrum PLAN: Continue Wound care to sacral ulcer- apply Venelex bid and prn Keep wounds clean and dry Offloading/reposition q 2 hours/ waffle mattress Comorbidities per primary care team Further Management per hospital course. Thank You for the consult and allowing us to participate in the care of this patient. ATTESTATION BY PHYSICIAN I have seen and examined the patient. I reviewed the documentation, medical decision making, and treatment plan as noted by the mid-level provider above. I agree with the findings and plan of care. RUSS JARAMILLO MD, MICHELLE A INSURANCE MANAGER Sep 09, 2025 15:54
[2025-09-10 02:28] VITALS: PULSE 85; RESP 18; O2SAT 96
[2025-09-10 03:45] VITALS: BP 110/59; PULSE 79; RESP 18; TEMP 98.4
[2025-09-10 03:53] LABS: NUCLEATED RED BLOOD CELLS 0.0 % (0.0-0.19); PLATELET COUNT (AUTO) 367.0 K/uL (130-400); RED BLOOD CELL COUNT(AUTO) 3.33 MIL/uL (4.00-5.50); RED CELL DISTRIBUTION WIDTH 16.2 % (11.0-15.5); WHITE BLOOD COUNT (AUTO) 9.0 K/uL (4.8-10.8)
[2025-09-10 04:06] LABS: ASPARTATE AMINOTRANSFERASE 49.0 U/L (10-37); CREATININE 0.6 mg/dL (0.5-1.0); GLOMERULAR FILTR. RATE CALC 104.0 mL/min (>90); GLUCOSE,RANDOM 100.0 mg/dL (70-105); SODIUM SERUM 136.0 mmol/L (136-145); TOTAL PROTEIN, SERUM 7.7 g/dL (6.0-8.3); UREA NITROGEN, BLOOD 12.0 mg/dL (7-18)
--- NOTE | 2025-09-10 05:02 | NUR ---
paged hospitalist contact manager. spoke to moustapha ramirez. REPORTED THAN PATIENT WITH PAIN TO LEFT UPPER CHEST PACEMAKER SITE. STATED TO ORDER TRAMADOL 25MG PO X1.
--- NOTE | 2025-09-10 07:03 | PN ---
PROBLEM LIST: 1. Nontransmural myocardial infarction on presentation with cardiogenic shock. 2. Complete heart block with escape rhythm and underlying left bundle branch block morphology. 3. Failed attempt at revascularization of the right coronary artery percutaneously because of 100% occlusion. 4. Status post Impella supported intervention with temporary transvenous pacemaker placement, and coronary bypass graft surgery x3 with left atrial appendage ligation 08/20/2025. 5. Ejection fraction of 45-50% with inferior wall hypokinesis 09/01/2025. 6. Nonsustained polymorphic ventricular tachycardia. 7. Remote history of CVA. 8. Diabetes mellitus, type 2 with poor control and vascular manifestations. 9. Tobacco dependence, counseled extensively. 10. Dyslipidemia. 11. Noncompliance with medications and followup appointments, counseled extensively. 12. History of cocaine abuse, counseled extensively. 13. Angioedema with lisinopril therapy in the past. 14. Frailty and debility. This patient has been progressing reasonably well from the cardiac standpoint since her surgical procedure. She has, however, remained very frail and weak. She has been requiring significant assistance from physical therapy to help with ambulation and other activities. The patient has been afebrile. She is noted to have a heart rate of 100-110 systolic range. Heart rate is in the 70s. Her respiratory rate is 18-20. The patient's laboratory parameters this morning revealed a white count of 9.0 with an H and H of 10.2 and 31.7 respectively and a platelet count of 367,000. The chemistries have revealed a sodium of 136, potassium 3.6, chloride 101, CO2 of 29, BUN is 12, creatinine 0.6, and GFR of 104. The patient's liver enzymes are mildly elevated with an AST of 49 and an alkaline phosphatase of 172. The albumin is low at 1.9 consistent with protein malnutrition. Magnesium is low at 1.7 and being managed per protocol. The patient is currently maintained on furosemide, metoprolol, midodrine, insulin, gabapentin, famotidine, polyethylene glycol, baby aspirin, and atorvastatin. The patient has been advised to be sent to a nursing facility for rehabilitation, but she is reluctant and refusing to do so. She wants to be discharged to home. This will be unwise given her inability to ambulate on her own. TID: [id number] RECEIPT: [id number]
[2025-09-10] MEDS ORDERED: INSLAN SQ (07:05)
[2025-09-10] MEDS ORDERED: MVIT PO (07:05)
[2025-09-10] MEDS ORDERED: ASPI-1005 PO (07:05)
[2025-09-10] MEDS ORDERED: BALS60OI TP (07:05)
[2025-09-10] MEDS ORDERED: FURO20TA6 PO (07:05)
[2025-09-10] MEDS ORDERED: METO25TA3 PO (07:05)
[2025-09-10] MEDS ORDERED: INSU200I SQ (07:05)
[2025-09-10] MEDS ORDERED: LIDO1ADH71 TP (07:05)
[2025-09-10] MEDS ORDERED: MIDO10TA3 PO (07:05)
[2025-09-10] MEDS ORDERED: ATOR40TA69 PO (07:05)
[2025-09-10] MEDS ORDERED: GABApentin 300 MG CAP PO (07:05)
[2025-09-10] MEDS ORDERED: GABA300C PO (07:06)
--- NOTE | 2025-09-10 07:14 | CCATH ---
SUBJECTIVE: The patient is status post CABG, Impella supported, as well as left atrial appendage ligation on 08/20/2025. Coursing postoperative day #20. OBJECTIVE: GENERAL: She is awake, alert, in no acute distress, lying in bed comfortably. VITAL SIGNS: Stable as recorded in the medical record. CHEST: Sternum stable. Incision healed. LUNGS: Clear. EXTREMITIES: Warm and well perfused. No evidence of DVT, hematoma, or infection. ASSESSMENT: Status post coronary vascularization. 1. Vascular pulse present. 2. Lipidemia -- Lipitor 40 mg once a day. 3. Congestive heart failure. Impella has been removed. Ejection fraction is about 20% to 30%. PLAN: OT, PT, and cardiac rehab. The patient should be evaluated in the future with an echocardiogram to assess the ejection fraction and the potential need for an AICD. TID: [id number] RECEIPT: [id number]
[2025-09-10] MEDS ORDERED: MAGNESIUM 2GM PREMIX 50ML 50 ML IV SCH (07:30)
[2025-09-10 08:00] VITALS: BP 147/88; PULSE 90; RESP 20; TEMP 98.9
[2025-09-10 11:36] VITALS: BP 128/67; PULSE 87; RESP 18; TEMP 98.3
--- NOTE | 2025-09-10 13:15 | DS ---
Discharge Summary Hospital Course Summary: Date of service 09/10/2025 The patient initially admitted to the hospital on 08/13/2025 with the following history of the present illness: This is a 60-year-old female with underlying history of obesity, coronary artery disease, poorly controlled type 2 diabetes mellitus, history of anemia, history of cocaine use, tobacco use disorder, history of CVA in 2008, who presented to the ER for further evaluation of severe substernal chest pain and shortness of breadth. Patient reports having history of cocaine use with last use of cocaine yesterday. She reports having severe substernal chest pain that started today in it has been associated with dizziness, and generalized malaise. Pain is 10/10 in severity. Patient denies any syncope or fall. She has been having lightheadedness with ambulation. She has not been able to follow up with Cardiology as outpatient. She has a previous history of abnormal CT coronary angiography when she was hospitalized in 04/2025 and she was treated medically. With regards to type 2 diabetes mellitus, she reports being on metformin as outpatient. On presentation to the hospital, patient was noted to be hypotensive with blood pressure of 80/60 with heart rate of 40 with EKG showing complete heart block. [place] [address], hemoglobin 12.4, platelet count of [id number]. BMP showed sodium of 133, potassium 4.8, chloride of 99, BUN of 21, creatinine 1.0, blood glucose of 403, [place] [address]. Chest x-ray showed no acute infiltrates. Patient will be admitted for further management of cardiogenic shock, NSTEMI, complete heart block with history of poorly controlled type 2 diabetes mellitus. Patient will be emergently taken to the labor and delivery nurse for cardiac catheterization/ PCI and tentative plan for MCS support. Patient will be admitted to intensive care unit and she remains critically ill. HOSPITAL COURSE 08/14 patient remains critically ill requiring Impella and dopamine support. UDS has demonstrated benzos and cocaine 08/15 patient remains on Impella 08/16 patient appears to be resting comfortably in bed. She remains on Impella and dopamine support. She reports she would like to be bathed and wants her hair combed significant and she is feeling better 08/17 patient is on GI soft diet tolerating well. She remains on Impella s upport 08/18 patient is resting comfortably in bed. She remains on Impella. Tolerating oral intake. 08/19 hemoglobin dropped to 6.5 from 7.0-7.5 yesterday. I agree with transfusing 1 unit PRBC. Patient remains on Impella. Patient is resting comfortably in bed. 08/20 patient is resting comfortably in bed. She remains on Impella support pending recovery for CABG. 08/21 patient underwent CABG x3 yesterday, no complications reported patient remains on Impella the patient is on norepinephrine, amiodarone, dopamine, insulin drip 08/22 postop day 2. From CABG x3. Patient does awaken to verbal stimulation and states she has some chest pain and slight shortness for breath she feels the pain as incisional from her open heart procedure. He is on p.o. amiodarone and being weaned off norepinephrine. 08/23 postop day 3 from CABG x3. Patient is in bed visiting with her son at the bedside. She states she has no shortness for breath, she does have some incisional chest discomfort, no nausea or vomiting or diarrhea. She is off norepinephrine drip and remains with the Impella assist. 08/24 patient is seen and examined at bedside, discussed with the RN, no acute events overnight, remains with the Impella support, postoperative day four from CABG x3. She is awake, following commands. Off vasopressors. Remains on heparin drip and sodium bicarbonate drip. Continue to follow critical Care and Cardiothoracic input and recommendation. 08/25 PATIENT IS SEEN AND EXAMINED AT BEDSIDE, DISCUSSED WITH THE RN, NO ACUTE EVENTS OVERNIGHT, PATIENT FOLLOWING COMMANDS, SHE REMAINS WITH THE IMPELLA SUPPORT, CHEST TUBE IN PLACE, POSTOPERATIVE DAY FIVE, STATUS POST CABG. CURRENTLY OFF PRESSORS, ON HEPARIN DRIP. CONTINUE TO FOLLOW CRITICAL CARE AND CARDIOTHORACIC INPUT AND RECOMMENDATIONS. POSSIBLE REMOVAL OF IMPELLA SUPPORT TODAY. 08/26 patient is seen and examined at bedside, discussed with the RN, no acute events overnight, remains with the Impella support, postoperative day four from CABG x6. She is awake, following commands. Off vasopressors. Remains on heparin drip, continue with chest tube in place, continue to follow Cardiothoracic input and recommendation. 08/27 patient is seen and examined at bedside, case discussed with the RN, no acute events overnight, patient awake, following commands, still with the Impella support, status post CABG. No chest pain, shortness shortness for breath, no nausea, no vomiting. Continue with chest tube in place. BP 132/74, afebrile, saturating 99% 4 L nasal cannula. CBC with a hemoglobin 9.0, hematocrit 28.1, WBC 12.2, with a platelet count of 152. Sodium 140, potassium 4.0, BUN of 12, creatinine 0.6, initially 2.10. Cardiology input noted and appreciated, echocardiogram ordered, we will follow report. Continue to follow Cardiothoracic input and recommendation. 08/28 patient is seen and examined at bedside, case discussed with the RN, no acute events overnight, patient remains admitted to the ICU, the time of my visit, awake, following command, NPO, she is scheduled to be taken to the operating room today for removal of Impella support by cardio thoracic surgeons, we will continue to follow input and recommendation. Limited 2D echo performed yesterday shows left ventricular cavity size is normal, Impella device measuring 5.6 cm into LV. Left ventricular ejection fraction 55-60%, no pericardial effusion. 08/29 patient is seen and examined at bedside, case discussed with the RN, no acute events overnight, patient remains admitted to the ICU, the time of my visit, awake, following command, NPO, she is scheduled to be taken to the operating room today for removal of Impella support by cardio thoracic surgeons, we will continue to follow input and recommendation. Limited 2D echo performed yesterday shows left ventricular cavity size is normal, Impella device measuring 5.6 cm into LV. Left ventricular ejection fraction 55-60%, no pericardial effusion. 08/30 patient is seen and examined at bedside, discussed with the RN, no acute events overnight, status post interval removal of Impella and placement of pericardial patch in the operating room by Cardiothoracic surgeon, 08/29/2025, tolerated the procedure well. Patient will remain admitted to the ICU, we will continue to follow Cardiothoracic input and recommendation. Follow a.m. labs. Continue Lasix, follow intake and output, daily chest x-ray, continue heparin drip, follow critical care input and recommendation. Patient completed 10 days of Rocephin and a dose of vancomycin. Completed three days of Ancef. 08/31 patient is seen and examined at bedside, discussed with the RN, no acute events overnight, patient remains admitted to the ICU, now she is intubated, mechanical ventilation, however awake, following commands, on low-dose Precedex, also on Lasix drip, Levophed drip, patient is status post interval removal of Impella support device per Cardiothoracic surgeon. Tolerated well. Hemoglobin today 9.1, hematocrit 27.4, ABG pH 7.48, pCO2 40, PO2 95.8, bicarb 29.1, chest x-ray pending. Continue to follow Cardiothoracic input recommendation, for continue care input and recommendation terms of extubation, wean off Levophed. 09/01 patient is seen and examined at bedside, remains admitted to the ICU, status post interval extubation. She is alert and oriented, following commands, remains on Levophed and Lasix drip. Chest tube in place. BP 113/46, hemoglobin 9.9, hematocrit 30.3, WBC 12.0, platelet count of 218. Sodium 138, potassium 3.9, BUN of 13, creatinine 0.9. Discussed with the RN, pending EP evaluation for possible pacemaker. We will follow, continue to follow Cardiothoracic input and recommendation. Critical care input noted and appreciated. Follow a.m. labs. 09/02 patient is seen and examined at bedside, case discussed with the RN, remains admitted to the ICU, at the time of my visit she is alert oriented x3, remains on Lasix Levophed getting IV antibiotics. Oriented patient is status post coronary artery bypass grafting, status post right femoral artery repair. Cardiothoracic input noted and appreciated, input has been noted, Impella has been successfully unit, patient will remain on low-dose Levophed, Lasix, IV antibiotics, continue chest tube in place. Patient supplemental oxygen via nasal cannula at 2 L to keep oxygen saturation greater than 92%. Continue to follow critical care input recommendation, follow a.m. labs. 09/03 patient is seen and examined at bedside, case discussed with the RN, no acute events overnight, the patient remains admitted to the ICU, awake, following commands, currently off Levophed, maintaining good blood pressure support. Currently on IV antibiotics. Hemoglobin 9.3, hematocrit 28.9, platelet count of 301. Patient is status post interval removal of chest tubes. Remains on aspirin, atorvastatin, furosemide. Continue midodrine. Doppler of the lower extremities negative for DVT. Patient complained on my pain to the right leg, we will request arterial Doppler of the right leg, status post Impella removal. Continue to follow EP input recommendation in terms of pacemaker. 09/04 patient is seen and examined at bedside, case discussed with the RN, no acute events overnight, the patient remains admitted to the ICU, awake, following commands, currently off Levophed, maintaining good blood pressure support. Currently on IV antibiotics. Remains on aspirin, atorvastatin, furosemide. Continue midodrine. Doppler of the lower extremities negative for DVT. Patient complained on my pain to the right leg, we will request arterial Doppler of the right leg, status post Impella removal. Scheduled for pacemaker placement by lock assembler Dr Lawson today. 09/05 Patient underwent pacemaker placement yesterday, no complications reported. Patient is off IV pressors. Vital signs are stable within normal limits 09/06 patient remains afebrile, vital signs within normal limit sugars are almost at goal. We will increase Lantus to 24 unit hs 09/07 patient is seen and examined at bedside, case discussed with the RN, no acute events overnight, the patient has been downgraded to the PCU, awake, following commands, currently off Levophed, maintaining good blood pressure. Currently on IV antibiotics. Remains on aspirin, atorvastatin, furosemide. Continue midodrine. Doppler of the lower extremities negative for DVT. Patient underwent successful pacemaker implantation 09/04/2024, tolerated the procedure well. Continue to follow Cardiology input and recommendation. We will have Physical therapy to evaluate the patient, we will discuss discharge plan with case management. 09/08 patient has been seen and examined at bedside, discussed with the RN, no acute events overnight, remains admitted to the PCU, she remains hemodynamically stable, alert oriented x3 at the time of my visit, she is complaining of left knee pain, on physical examination tenderness to palpation, with swollen, x-ray of the left knee has been ordered. Patient underwent successful pacemaker implantation 09/04/2024, tolerated the procedure well. Continue to follow Cardiology input and recommendation. We will have Physical therapy to evaluate the patient, we will discuss discharge plan with case management. 09/09 patient is seen and examined at bedside, discussed with the RN, no acute events overnight, the time of my visit patient comfortably in bed, alert oriented x3, feels weak but better compared to yesterday. Less swollen to the left knee area, lidocaine patch in place. X-ray of the left knee done, pending report. Discussed with the patient, plan to be discharged home in the next 24 hours, she will call family members to make it necessary arrangements in anticipation to discharge tomorrow. 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 Assessment/Plan: FINAL DIAGNOSIS Cardiogenic shock with lactic acidosis, POA NSTEMI/ACS, POA Complete heart block, POA History of multivessel coronary artery disease, POA History of cocaine use disorder, POA Severe nonketotic hyperglycemia, POA History of to poorly controlled type 2 diabetes mellitus, POA Lactic acidosis, POA History of anemia, POA History of gastritis, POA History of hypertension, POA History of PTSD/anxiety, POA Obesity, POA Medical noncompliance, POA Discharge Instructions: THE PATIENT TO BE DISCHARGED HOME TODAY, TO FOLLOW UP WITH PCP AND CARDIOLOGY AN OUTPATIENT, RETURN TO HOSPITAL IF CONDITION CHANGES, PATIENT AGREED WITH PLAN AND UNDERSTOOD THE INFORMATION PROVIDED. Home Medications: Active Scripts Loratadine (Loratadine) 10 Mg Tablet, 1 TAB PO DAILY for allergy symptoms for 30 Days, #30 TAB 0 Refills Prov:RENEE OROSCO MD 07/18/25 Fluticasone Propionate (Flonase Nasal [place]) 50 Mcg/Actuation [place], 2 SPRAY NS DAILY, #16 GM 0 Refills Prov:RENEE OROSCO MD 07/18/25 Amoxicillin/Potassium Clav (Amox Tr-K Clv 875-125 mg Tab) 875 Mg-125 Mg Tablet, 1 TAB PO BID for 10 Days, #20 TAB 0 Refills Prov:RENEE OROSCO MD 07/18/25 Naproxen (Naproxen) 250 Mg Tablet, 250 MG PO BID for 5 Days, #10 TAB Prov:ZORA OCHOA MD 07/08/25 Azithromycin (Azithromycin) 250 Mg Tablet, 250 MG PO AD for cough for 5 Days, #6 TAB Prov:ZORA OCHOA MD 07/08/25 Insulin Aspart (Novolog Flexpen) 100 Unit/Ml (3 Ml) Insuln.pen, 2 UNITS SQ TIDAC for 30 Days, #4 SYRINGE 2 Refills Prov:GEE MARTIN MD 04/23/25 Glyburide (Glyburide 2.5MG Tab) 2.5 Mg Tab, 1 TAB PO DAILY for 30 Days, #30 TAB 1 Refill Prov:GEE MARTIN MD 04/23/25 Metformin HCl (Metformin HCl) 850 Mg Tablet, 1 TAB PO BID for 30 Days, #60 TAB 2 Refills Prov:GEE MARTIN MD 04/23/25 Nitroglycerin (Nitroglycerin) 0.4 Mg Tab.subl, 1 TAB SL AD for chest pain, #25 TAB 1 Refill 1st sign of attack; may repeat every 5 mins; if pain persists after 3 in 15 min, medical attention is recommended Prov:GEE MARTIN MD 04/22/25 Pantoprazole Sodium (Protonix) 40 Mg Ectab, 1 TAB PO DAILY for 30 Days, #30 TAB 1 Refill Prov:GEE MARTIN MD 04/22/25 Metoprolol Tartrate (Lopressor) 25 Mg Tab, 25 MG PO BID for 30 Days, #60 TAB 1 Refill Prov:GEE MARTIN MD 04/22/25 Clopidogrel Bisulfate (Plavix) 75 Mg Tablet, 75 MG PO DAILY for 30 Days, #30 TAB 1 Refill Prov:GEE AMRTIN MD 04/22/25 Atorvastatin Calcium (LIPITOR) 40 Mg Tablet, 40 MG PO HS for 30 Days, #30 TAB 1 Refill Prov:GEE MARTIN MD 04/22/25 Aspirin (ASPIRIN 81MG CHEW TAB) 81 Mg Tab.chew, 81 MG PO DAILY for 30 Days, #30 TAB.CHEW 1 Refill Prov:GEE MARTIN MD 04/22/25 Time spent arranging discharge: 31-60 minutes GEE MARTIN MD Sep 10, 2025 13:15
[2025-09-10 13:19] VITALS: O2SAT 96
--- NOTE | 2025-09-10 15:24 | NUR ---
[facility] Follow-up: Patient re-assessed by wound healing team, Wound improving. Assessment and recommendations provided to primary nurse Education provided.
--- NOTE | 2025-09-10 16:40 | PN ---
PROGRESS NOTE Date of Service: Sep 10, 2025 Time of Service: 16:37 SUBJECTIVE: Patient is evaluated at bedside in room 232 for wound care follow up. Patient is awake, alert, and oriented x3. No signs of distress noted. Patient is sitting up in bedside chair. Plan for discharge to home today as reported by nurse. REVIEW OF SYSTEMS CONSTITUTIONAL: Denies fever, chills, or fatigue. HEAD/FACE: No signs of trauma. EENT: Denies eye pain, blurred vision, double vision, or light sensitivity. RESPIRATORY: Denies shortness of breath, cough, wheezing CARDIOVASCULAR: Denies chest pain, palpitation, syncope GASTROINTESTINAL/ABDOMINAL: Denies abdominal pain, constipation, diarrhea, nausea or vomiting GENITOURINARY: Denies dysuria or hematuria. MUSCULOSKELETAL: Denies joint pain, tenderness, or trauma. INTEGUMENTARY: Denies rash or itchiness NEUROLOGICAL/PSYCH: Denies anxiety, depression, heat or cold intolerance. PHYSICAL EXAM EYES: Anicteric. Pupils equal and reactive. HENT: No oral thrush seen, moist Oral mucosa NECK: Supple, no JVD or thyromegaly. LUNGS: Good air entry. No rales, no rhonchi. CARDIOVASCULAR: S1, S2 regular. No murmur heard. ABDOMEN: Soft, non tender, bowel sounds present, no organomegaly CENTRAL NERVOUS SYSTEM: Awake, alert, oriented x 3. No focal deficits. SKIN: stage II ulcer noted to sacrum noted with granulation with mild periwound erythema, minimal serous drainage noted. Wound decrease in size. Wound is improving. LYMPHATICS: No peripheral lymphadenopathy MUSCULOSKELETAL: No joint swelling, erythema or tenderness. EXTREMITIES: No cyanosis or clubbing GENITOURINARY: No dysuria or hematuria Vital Signs (last 8hr) Date Time Temp Pulse Resp B/P (MAP) Pulse Ox O2 Delivery O2 Flow Rate FiO2 09/10/25 13:19 96 Room Air* 0 21 09/10/25 11:36 98.2 87 18 128/67 98 Room Air LABS: Laboratory: Test 09/10/25 11:34 09/10/25 03:32 Range/Units Whole Blood Glucose 188 #H 70-110 MG/DL White Blood Count 9.0 4.8-10.8 K/uL Red Blood Count 3.33 L 4.00-5.50 MIL/uL Hemoglobin 10.2 L 12.0-16.0 g/dL Hematocrit 31.7 L 36-48 % Mean Corpuscular Volume 95.2 79-99 fL Mean Corpuscular Hemoglobin 30.6 27.0-33.0 pg Mean Corpuscular Hemoglobin Concent 32.2 32.0-36.0 g/dL Red Cell Distribution Width 16.2 H 11.0-15.5 % Platelet Count 367 130-400 K/uL Mean Platelet Volume 10.2 7.5-10.5 fL Nucleated Red Blood Cells 0.0 0.0-0.19 % Sodium Level 136 136-145 mmol/L Potassium Level 3.6 3.5-5.1 mmol/L Chloride Level 101 101-111 mmol/L Carbon Dioxide Level 29 21-32 mmol/L Blood Urea Nitrogen 12 7-18 mg/dL Creatinine 0.6 0.5-1.0 mg/dL Glomerular Filtration Rate Calc 104 >90 mL/min Random Glucose 100 70-105 mg/dL Total Calcium 8.9 8.5-10.1 mg/dL Magnesium Level 1.70 L 1.80-2.40 mg/dL Total Bilirubin 0.4 # 0.2-1.0 mg/dL Aspartate Amino Transf (AST/SGOT) 49 H 10-37 U/L Alanine Aminotransferase (ALT/SGPT) 28 12-78 U/L Alkaline Phosphatase 172 H 50-136 U/L Total Protein 7.7 6.0-8.3 g/dL Albumin 1.9 L 3.5-5.0 g/dL DIAGNOSTICS / RADIOLOGY: [ ] ASSESSMENT: Stage II ulcer to sacrum-improving PLAN: Continue Wound care to sacral ulcer- apply Venelex bid and prn Keep wounds clean and dry Offloading/reposition q 2 hours/ waffle mattress Comorbidities per primary care team Further Management per hospital course. Follow up in [facility] Wound Care office on discharge. MOUNA BENITEZ Sep 10, 2025 16:40
--- NOTE | 2025-09-10 20:41 | PN ---
Endocrinology progress note DOS: 09/10/25 subjective: Home diabetic regimen: metformin 500 mg bid Hba1c 10.7% glucose runs less than 180 mg/dl. patient is s/p CABG Non ST-elevation myocardial infarction in the setting of cocaine abuse complicated by cardiogenic shock requiring Impella support Severe multivessel CAD with acute occlusion of the right coronary artery unable to be revascularized percutaneously with preop ejection fraction of 50% by echo status post aortocoronary bypass graft surgery with a BRO graft to the LAD saphenous graft to the obtuse marginal artery and saphenous graft to the 2nd diagonal artery with a clipping of the left atrial appendage Ventricular standstill after anesthesia induction PAST MEDICAL HISTORY: Coronary artery disease with history of abnormal coronary CT angiography, gastritis, anemia, cocaine use disorder, obesity, PTSD, anxiety disorder, history of NSTEMI in 04/2025, history of CVA in 2008 PAST SURGICAL HISTORY: History of ventral hernia repair 2008, hx of cholecystectomy, hx of C Section PAST SOCIAL HISTORY: Denies active alcohol consumption, intermittently smokes cigarettes as well as has been using cocaine chronically FAMILY HISTORY: Reports family history of heart disease Home medications: Patient does not have list of home medications, family will be bringing list of home medications to be updated Allergies: Patient has allergic reaction to lisinopril Coded Allergies: No Known Drug Allergies (Verified Allergy, Unknown, 05/04/22) lisinopril (Verified Allergy, Unknown, 05/04/22) DIAGNOSTICS / RADIOLOGY: SERVICE 1425 REASON: cp ORDERING PHYSICIAN: ZORA OCHOA MD PROCEDURE: CXR1VW - CHEST 1VW EXAM: CR Chest, 1 View. CLINICAL HISTORY: COMPARISON: 07/08/25 FINDINGS: LUNGS: The lungs show no infiltrate or other acute finding. PLEURAL SPACES: No pleural effusion or pneumothorax. MEDIASTINUM: The cardiomediastinal silhouette is within normal limits. BONES: No aggressive appearing osseous lesion seen. IMPRESSION: No acute cardiopulmonary pathology is evident. /[place] DICTATED BY: BELKIS KURTZ MD DATE: 08/13/251731 ELECTRONICALLY SIGNED BY: BELKIS KURTZ MD DATE: 08/13/251731 ASSESSMENT: uncontrolled DM-2 Home diabetic regimen: metformin 500 mg bid Hba1c 10.7% glucose runs less than 180 mg/dl. off insulin drip now and on low dose ssi and low dose lantus insulin and regular insulin.. Cardiogenic shock with lactic acidosis, POA cardiology following, s/p CABG procedure. NSTEMI/ACS, POA Complete heart block, POA History of multivessel coronary artery disease, POA History of cocaine use disorder, POA Lactic acidosis, POA History of anemia, POA History of gastritis, POA History of hypertension, POA History of PTSD/anxiety, POA Obesity, POA Medical noncompliance, POA PLAN: continue Lantus 24 units daily and adjust for fasting glucose. continue Regular insulin 6 units three times before meals continue medium dose sliding scale insulin. Monitor glucose q x 6 hourly. Continue carb consistent diet. Keep glucose less than 180 mg/dl. Patient will need insulin at discharge. Vitals/Labs Vital Signs Date Time Temp Pulse Resp B/P (MAP) Pulse Ox O2 Delivery O2 Flow Rate FiO2 09/10/25 13:19 96 Room Air* 0 21 09/10/25 11:36 98.2 87 18 128/67 Laboratory Tests 09/10/25 03:32 Medications Current Medications Ondansetron HCl 4 mg ONCE ONCE IVP; Start 08/13/25 at 14:30; Stop 08/13/25 at 14:52; Status DC Sodium Chloride 500 ml @ 0 mls/hr ONCE ONCE IV Last administered on 08/13/25at 15:00; Start 08/13/25 at 14:30; Stop 08/13/25 at 14:31; Status DC Heparin Sodium (Porcine) *calculation based on ACTUAL B... AD PRN IV Last administered on 08/17/25at 04:46; Start 08/13/25 at 16:30; Stop 08/20/25 at 16:32; Status DC Heparin Sodium/ Dextrose 250 ml @ 0 mls/hr Q6H IV Last administered on 08/19/25at 22:03; Start 08/13/25 at 16:30; Stop 08/20/25 at 16:32; Status DC Norepinephrine 250 ml @ 0 mls/hr PROTOCOL IV; Start 08/13/25 at 15:30; Stop 08/20/25 at 08:31; Status DC Dopamine HCl/ Dextrose 250 ml @ As Directed STK-MED ONCE IV; Start 08/13/25 at 15:33; Stop 08/13/25 at 15:33; Status DC Aspirin 325 mg STK-MED ONCE .ROUTE; Start 08/13/25 at 15:34; Stop 08/13/25 at 15:33; Status DC Ticagrelor 180 mg ONCE ONCE PO Last administered on 08/13/25at 16:16; Start 08/13/25 at 16:00; Stop 08/13/25 at 16:01; Status DC Morphine Sulfate 1 mg ONCE ONCE IVP Last administered on 08/13/25at 16:23; Start 08/13/25 at 16:00; Stop 08/13/25 at 16:01; Status DC Ticagrelor 90 mg STK-MED ONCE .ROUTE; Start 08/13/25 at 15:50; Stop 08/13/25 at 15:50; Status DC Dopamine HCl/ Dextrose 250 ml @ 0 mls/hr PROTOCOL IV Last administered on 08/16/25at 16:41; Start 08/13/25 at 16:00; Stop 09/07/25 at 20:15; Status DC Aspirin 325 mg ONCE ONCE PO Last administered on 08/13/25at 16:15; Start 08/13/25 at 16:00; Stop 08/13/25 at 16:01; Status DC Lidocaine HCl 20 ml STK-MED ONCE .ROUTE; Start 08/13/25 at 16:12; Stop 08/13/25 at 16:12; Status DC Iohexol 35,000 mg STK-MED ONCE IV; Start 08/13/25 at 16:12; Stop 08/13/25 at 16:12; Status DC Heparin Sodium (Porcine) 10,000 unit STK-MED ONCE .ROUTE; Start 08/13/25 at 16:12; Stop 08/13/25 at 16:12; Status DC Nicardipine HCl 25 mg STK-MED ONCE IV; Start 08/13/25 at 16:12; Stop 08/13/25 at 16:12; Status DC Heparin Sodium/ Sodium Chloride 1,000 ml @ As Directed STK-MED ONCE IV; Start 08/13/25 at 16:12; Stop 08/13/25 at 16:12; Status DC Nitroglycerin 50 mg STK-MED ONCE .ROUTE; Start 08/13/25 at 16:12; Stop 08/13/25 at 16:12; Status DC Pantoprazole Sodium 40 mg Q24H IVP Last administered on 08/16/25at 16:07; Start 08/13/25 at 16:30; Stop 08/17/25 at 11:10; Status DC Insulin Human Regular INSULIN SLIDING SCAL... ACHS SQ Last administered on 08/16/25at 20:01; Start 08/13/25 at 16:30; Stop 08/16/25 at 20:46; Status DC Insulin Human Regular 5 unit ONCE ONCE IV; Start 08/13/25 at 16:30; Stop 08/13/25 at 16:31; Status DC Fentanyl Citrate 100 mcg STK-MED ONCE .ROUTE; Start 08/13/25 at 16:26; Stop 08/13/25 at 16:26; Status DC Midazolam HCl 2 mg STK-MED ONCE .ROUTE; Start 08/13/25 at 16:27; Stop 08/13/25 at 16:27; Status DC Acetaminophen 650 mg Q6H PRN PO Last administered on 09/04/25at 03:33; Start 08/13/25 at 16:30; Stop 09/04/25 at 10:40; Status DC Ondansetron HCl 4 mg Q6H PRN IVP; Start 08/13/25 at 16:30; Stop 08/14/25 at 14:08; Status DC Potassium Chloride 100 ml @ 100 mls/hr AD PRN IV Last administered on 08/16/25at 16:07; Start 08/13/25 at 16:30; Stop 08/20/25 at 16:32; Status DC Potassium Chloride 20 meq AD PRN PO; Start 08/13/25 at 16:30; Stop 08/20/25 at 16:32; Status DC Potassium Chloride 20 meq AD PRN PO Last administered on 08/15/25at 08:23; Start 08/13/25 at 16:30; Stop 08/20/25 at 16:32; Status DC Magnesium Sulfate 50 ml @ 0 mls/hr PROTOCOL IV Last administered on 08/21/25at 05:58; Start 08/13/25 at 16:30; Stop 08/21/25 at 10:49; Status DC Atorvastatin Calcium 40 mg HS PO Last administered on 09/09/25at 20:26; Start 08/13/25 at 21:00; Stop 09/10/25 at 17:50; Status DC Heparin Sodium/ Sodium Chloride 500 ml @ As Directed STK-MED ONCE IV; Start 08/13/25 at 17:14; Stop 08/13/25 at 17:14; Status DC Heparin Sodium (Porcine) 10,000 unit STK-MED ONCE .ROUTE; Start 08/13/25 at 18:03; Stop 08/13/25 at 18:03; Status DC Aspirin 81 mg DAILY PO Last administered on 09/10/25at 09:35; Start 08/14/25 at 09:00; Stop 09/10/25 at 17:50; Status DC Insulin Glargine 10 units HS SQ Last administered on 08/13/25at 20:21; Start 08/13/25 at 21:00; Stop 08/14/25 at 06:16; Status DC Dextrose 50 ml AD PRN IV; Start 08/13/25 at 20:00; Stop 08/20/25 at 22:03; Status DC Glucagon 1 mg AD PRN IM; Start 08/13/25 at 20:00; Stop 08/21/25 at 10:49; Status DC Sodium Bicarbonate 25 meq/Dextrose 1,000 ml @ 0 mls/hr Q0M IVP; Start 08/14/25 at 00:30; Stop 08/14/25 at 00:15; Status DC Sodium Bicarbonate 25 meq/Dextrose 1,000 ml @ 0 mls/hr Q0M IV Last administered on 08/28/25at 16:29; Start 08/14/25 at 00:30; Stop 09/07/25 at 20:15; Status DC Glycerin 1 supp ONCE ONCE RC Last administered on 08/14/25at 05:56; Start 08/14/25 at 05:00; Stop 08/14/25 at 05:06; Status DC Insulin Glargine 20 units DAILY SQ Last administered on 08/14/25at 08:01; Start 08/14/25 at 09:00; Stop 08/15/25 at 07:24; Status DC Ticagrelor 90 mg BID PO Last administered on 08/14/25at 20:09; Start 08/14/25 at 09:00; Stop 08/14/25 at 21:19; Status DC Morphine Sulfate 2 mg Q6H PRN IVP Last administered on 08/19/25at 12:22; Start 08/14/25 at 09:30; Stop 08/19/25 at 12:29; Status DC Polyethylene Glycol 17 gm DAILY PO Last administered on 09/10/25at 09:35; Start 08/15/25 at 09:00; Stop 09/10/25 at 17:50; Status DC Docusate Sodium 100 mg BID PRN PO Last administered on 09/04/25at 11:31; Start 08/14/25 at 11:00; Stop 09/10/25 at 17:50; Status DC Ceftriaxone Sodium 2 gm Q24H IVPB Last administered on 08/23/25at 12:16; Start 08/14/25 at 11:30; Stop 08/24/25 at 11:29; Status DC Insulin Human Regular 5 unit TIDAC SQ Last administered on 08/15/25at 07:03; Start 08/14/25 at 17:00; Stop 08/15/25 at 07:24; Status DC Chlordiazepoxide HCl 25 mg Q2H PRN PO Last administered on 08/16/25at 23:38; Start 08/14/25 at 14:30; Stop 08/20/25 at 16:32; Status DC Chlordiazepoxide HCl 50 mg Q1H PRN PO; Start 08/14/25 at 14:30; Stop 08/20/25 at 16:32; Status DC Ondansetron HCl 4 mg Q4H PRN IV Last administered on 08/14/25at 14:17; Start 08/14/25 at 14:30; Stop 08/20/25 at 16:32; Status DC Promethazine HCl 25 mg Q6H PRN PO; Start 08/14/25 at 14:30; Stop 08/20/25 at 16:32; Status DC Acetaminophen 500 mg Q6H PRN PO Last administered on 08/26/25at 10:41; Start 08/14/25 at 14:30; Stop 09/10/25 at 17:50; Status DC Thiamine HCl 300 mg DAILY IV Last administered on 08/17/25at 07:46; Start 08/15/25 at 09:00; Stop 08/17/25 at 09:01; Status DC Folic Acid 1 mg DAILY PO Last administered on 08/17/25at 07:46; Start 08/15/25 at 09:00; Stop 08/17/25 at 09:01; Status DC Multivitamins Therapeutic 1 tab DAILY PO Last administered on 09/10/25at 09:36; Start 08/15/25 at 09:00; Stop 09/10/25 at 17:50; Status DC Pharmacy Profile Note 1 each PROTOCOL PRN MISC; Start 08/14/25 at 14:30; Stop 08/14/25 at 14:08; Status DC Insulin Glargine 30 units DAILY SQ Last administered on 08/15/25at 08:28; Start 08/15/25 at 09:00; Stop 08/16/25 at 07:19; Status DC Insulin Human Regular 8 unit TIDAC SQ Last administered on 08/15/25at 16:02; Start 08/15/25 at 07:30; Stop 08/15/25 at 22:46; Status DC Diphenhydramine HCl 25 mg ONCE ONCE IM; Start 08/15/25 at 21:00; Stop 08/15/25 at 22:52; Status DC Insulin Human Regular 10 unit TIDAC SQ Last administered on 08/17/25at 16:09; Start 08/16/25 at 07:30; Stop 08/17/25 at 21:12; Status DC Diphenhydramine HCl 25 mg ONCE PRN IV; Start 08/15/25 at 23:00; Stop 08/17/25 at 22:59; Status DC Insulin Glargine 35 units DAILY SQ Last administered on 08/18/25at 07:59; Start 08/16/25 at 09:00; Stop 08/19/25 at 07:35; Status DC Bisacodyl 10 mg DAILY RC Last administered on 08/18/25at 07:58; Start 08/17/25 at 09:00; Stop 08/20/25 at 08:59; Status DC Insulin Human Lispro INSULIN SLIDING SCAL... ACHS SQ; Start 08/16/25 at 21:00; Stop 08/17/25 at 09:31; Status DC Insulin Glargine 5 units BID@0730,2100 SQ Last administered on 08/16/25at 21:21; Start 08/16/25 at 21:00; Stop 08/17/25 at 09:31; Status DC Pantoprazole Sodium 40 mg Q12H IVP Last administered on 08/20/25at 03:53; Start 08/17/25 at 16:30; Stop 08/20/25 at 16:32; Status DC Insulin Human Regular INSULIN SLIDING SCAL... ACHS SQ Last administered on 08/19/25at 21:31; Start 08/17/25 at 16:30; Stop 08/20/25 at 16:32; Status DC Insulin Human Regular 12 unit TIDAC SQ Last administered on 08/18/25at 16:39; Start 08/18/25 at 07:30; Stop 08/18/25 at 20:19; Status DC Vancomycin HCl 1 each AD IV; Start 08/17/25 at 22:00; Stop 08/26/25 at 21:47; Status DC Vancomycin HCl 250 ml @ 83.333 mls/ hr ONCE ONCE IV Last administered on 08/17/25at 23:05; Start 08/17/25 at 22:30; Stop 08/18/25 at 01:29; Status DC Vancomycin HCl 250 ml @ 125 mls/hr Q12H IV Last administered on 08/19/25at 09:39; Start 08/18/25 at 09:00; Stop 08/19/25 at 20:54; Status DC Albumin Human 50 ml @ 0 mls/hr BID IV Last administered on 08/22/25at 20:56; Start 08/18/25 at 09:00; Stop 08/23/25 at 08:59; Status DC Lidocaine 1 each DAILY TP Last administered on 09/10/25at 09:35; Start 08/19/25 at 09:00; Stop 09/10/25 at 17:50; Status DC Lidocaine 1 each ONCE ONCE TP Last administered on 08/18/25at 13:52; Start 08/18/25 at 14:00; Stop 08/18/25 at 14:01; Status DC Diphenhydramine HCl 25 mg ONCE ONCE PO Last administered on 08/18/25at 15:19; Start 08/18/25 at 15:30; Stop 08/18/25 at 15:31; Status DC Insulin Human Regular 16 unit TIDAC SQ Last administered on 08/19/25at 16:47; Start 08/19/25 at 07:30; Stop 08/20/25 at 06:22; Status DC Insulin Glargine 42 units DAILY SQ Last administered on 08/19/25at 09:40; Start 08/19/25 at 09:00; Stop 08/20/25 at 06:22; Status DC Calcium Carbonate 500 tab QID PRN PO Last administered on 08/20/25at 05:10; Start 08/19/25 at 12:00; Stop 08/20/25 at 16:32; Status DC Morphine Sulfate 2 mg Q6H PRN IVP Last administered on 08/19/25at 17:50; Start 08/19/25 at 18:00; Stop 08/20/25 at 16:32; Status DC Cefazolin Sodium 2 gm ONCALL IVP Last administered on 08/20/25at 16:30; Start 08/19/25 at 19:30; Stop 08/21/25 at 08:36; Status DC Vancomycin HCl 250 ml @ 125 mls/hr Q8H IV Last administered on 08/20/25at 22:26; Start 08/19/25 at 21:30; Stop 08/21/25 at 00:23; Status DC Sodium Chloride 500 ml @ 500 mls/hr Q1H IV Last administered on 08/20/25at 00:53; Start 08/20/25 at 00:33; Stop 08/20/25 at 03:16; Status DC Nitroglycerin/ Dextrose 250 ml @ 0 mls/hr PROTOCOL IV Last administered on 08/20/25at 03:12; Start 08/20/25 at 03:30; Stop 08/20/25 at 16:32; Status DC Insulin Glargine 45 units DAILY SQ; Start 08/20/25 at 09:00; Stop 08/20/25 at 16:32; Status DC Insulin Human Regular 17 unit TIDAC SQ; Start 08/20/25 at 07:30; Stop 08/20/25 at 16:32; Status DC Epinephrine HCl 10 mg/Sodium Chloride 250 ml @ 0 mls/hr AD PRN IV Last administered on 08/26/25at 16:56; Start 08/20/25 at 08:00; Stop 09/07/25 at 20:17; Status DC Norepinephrine Bitartrate 250 ml @ 0 mls/hr AD PRN IV Last administered on 09/01/25at 23:29; Start 08/20/25 at 08:00; Stop 09/07/25 at 20:17; Status DC Aminocaproic Acid 21573 mg/Sodium Chloride 480 ml @ 0 mls/hr AD PRN IV; Start 08/20/25 at 08:00; Stop 09/02/25 at 07:55; Status DC Cefazolin Sodium 1 gm STK-MED ONCE .ROUTE; Start 08/20/25 at 08:23; Stop 08/20/25 at 08:23; Status DC Heparin Sodium/ Sodium Chloride 500 ml @ As Directed STK-MED ONCE IV; Start 08/20/25 at 08:23; Stop 08/20/25 at 08:24; Status DC Papaverine HCl 60 mg STK-MED ONCE .ROUTE Last administered on 08/20/25at 17:05; Start 08/20/25 at 08:23; Stop 08/20/25 at 08:24; Status DC Epinephrine HCl 10 mg/Sodium Chloride 250 ml @ 0 mls/hr AD PRN IV; Start 08/20/25 at 09:00; Stop 08/20/25 at 09:03; Status DC Norepinephrine Bitartrate 250 ml @ 0 mls/hr AD PRN IV; Start 08/20/25 at 09:00; Stop 08/20/25 at 09:03; Status DC Aminocaproic Acid 23045 mg/Sodium Chloride 480 ml @ 0 mls/hr AD PRN IV; Start 08/20/25 at 09:00; Stop 08/20/25 at 09:03; Status DC Protamine Sulfate 250 mg STK-MED ONCE IV; Start 08/20/25 at 15:44; Stop 08/20/25 at 15:44; Status DC Lidocaine HCl 100 mg STK-MED ONCE .ROUTE; Start 08/20/25 at 15:44; Stop 08/20/25 at 15:44; Status DC Heparin Sodium (Porcine) 10,000 unit STK-MED ONCE .ROUTE; Start 08/20/25 at 15:44; Stop 08/20/25 at 15:44; Status DC Epinephrine HCl 1 mg STK-MED ONCE .ROUTE; Start 08/20/25 at 15:44; Stop 08/20/25 at 15:44; Status DC Sodium Bicarbonate 200 ml @ As Directed STK-MED ONCE .ROUTE; Start 08/20/25 at 15:44; Stop 08/20/25 at 15:44; Status DC Norepinephrine Bitartrate 4 mg STK-MED ONCE IV; Start 08/20/25 at 15:44; Stop 08/20/25 at 15:44; Status DC Propofol 200 mg STK-MED ONCE IV; Start 08/20/25 at 15:45; Stop 08/20/25 at 15:44; Status DC Fentanyl Citrate 1,000 mcg STK-MED ONCE IJ; Start 08/20/25 at 15:45; Stop 08/20/25 at 15:45; Status DC Midazolam HCl 2 mg STK-MED ONCE .ROUTE; Start 08/20/25 at 15:45; Stop 08/20/25 at 15:45; Status DC Rocuronium Coleraine 50 mg STK-MED ONCE .ROUTE; Start 08/20/25 at 15:45; Stop 08/20/25 at 15:45; Status DC Sodium Bicarbonate 400 ml @ As Directed STK-MED ONCE .ROUTE; Start 08/20/25 at 15:46; Stop 08/20/25 at 15:46; Status DC Cefazolin Sodium 1 gm STK-MED ONCE .ROUTE Last administered on 08/20/25at 17:05; Start 08/20/25 at 16:19; Stop 08/20/25 at 16:19; Status DC Vancomycin HCl 250 ml @ As Directed STK-MED ONCE IV Last administered on 08/20/25at 16:40; Start 08/20/25 at 16:40; Stop 08/20/25 at 16:40; Status DC Sodium Chloride 1,000 ml @ 10 mls/hr ONCE IV Last administered on 08/20/25at 22:31; Start 08/20/25 at 17:00; Stop 08/21/25 at 16:59; Status DC Sodium Chloride 10 ml Q8H PRN IVP; Start 08/20/25 at 17:00; Stop 09/10/25 at 17:50; Status DC Morphine Sulfate 0.5 mg Q2H PRN IV; Start 08/20/25 at 17:00; Stop 08/20/25 at 18:07; Status DC Morphine Sulfate 1 mg Q2H PRN IV; Start 08/20/25 at 17:00; Stop 08/21/25 at 16:59; Status DC Acetaminophen 650 mg Q4H PRN RC; Start 08/20/25 at 17:00; Stop 09/10/25 at 17:50; Status DC Ondansetron HCl 4 mg Q6H PRN IV Last administered on 08/29/25at 12:47; Start 08/20/25 at 17:00; Stop 09/10/25 at 17:50; Status DC Sodium Chloride 500 ml @ 0 mls/hr AD IV; Start 08/20/25 at 17:00; Stop 09/10/25 at 17:50; Status DC Nitroglycerin/ Dextrose 0 ml @ 0 mls/hr AD IV; Start 08/20/25 at 17:00; Stop 08/23/25 at 16:59; Status DC Propofol 100 ml @ 0 mls/hr AD PRN IV; Start 08/20/25 at 17:00; Stop 08/24/25 at 17:00; Status DC Norepinephrine Bitartrate 8 mg/ Dextrose 250 ml @ 0 mls/hr AD PRN IV; Start 08/20/25 at 17:00; Stop 08/21/25 at 10:49; Status DC Epinephrine HCl 10 mg/Sodium Chloride 250 ml @ 14.091 mls/ hr AD PRN IV; Start 08/20/25 at 17:00; Stop 08/21/25 at 10:49; Status DC Aminocaproic Acid 20348 mg/Sodium Chloride 310 ml @ 25 mls/hr AD IV; Start 08/20/25 at 17:00; Stop 08/21/25 at 05:23; Status DC Calcium Gluconate 1 gm/Sodium Chloride 60 ml @ 200 mls/hr AD PRN IV Last administered on 08/30/25at 03:43; Start 08/20/25 at 17:00; Stop 09/07/25 at 20:17; Status DC Magnesium Sulfate 50 ml @ 12.5 mls/hr AD PRN IV Last administered on 09/02/25at 09:19; Start 08/20/25 at 17:00; Stop 09/02/25 at 09:48; Status DC Potassium Chloride 100 ml @ 100 mls/hr AD PRN IV Last administered on 09/10/25at 04:36; Start 08/20/25 at 17:00; Stop 09/10/25 at 17:50; Status DC Potassium Phosphate 250 ml @ 42 mls/hr AD PRN IV; Start 08/20/25 at 17:00; Stop 09/10/25 at 17:50; Status DC Albumin Human 250 ml @ 0 mls/hr AD PRN IV Last administered on 08/20/25at 22:46; Start 08/20/25 at 17:00; Stop 08/20/25 at 22:46; Status DC Acetaminophen 650 mg Q4H PRN PO; Start 08/20/25 at 17:00; Stop 09/04/25 at 10:40; Status DC Insulin Human Regular 100 unit/ Sodium Chloride 100 ml @ 0 mls/hr AD IV Last administered on 08/21/25at 15:00; Start 08/20/25 at 17:00; Stop 08/22/25 at 16:59; Status DC Cefazolin Sodium 2 gm Q8H IVPB Last administered on 08/21/25at 13:45; Start 08/20/25 at 22:00; Stop 08/21/25 at 14:01; Status DC Tramadol HCl 25 mg Q6H PRN PO; Start 08/20/25 at 17:00; Stop 08/25/25 at 16:59; Status DC Tramadol HCl 50 mg Q6H PRN PO Last administered on 08/25/25at 09:24; Start 08/20/25 at 17:00; Stop 08/25/25 at 16:59; Status DC Famotidine 20 mg BID IV Last administered on 08/21/25at 20:17; Start 08/20/25 at 21:00; Stop 08/22/25 at 08:20; Status DC Sodium Bicarbonate 50 meq AD PRN IV Last administered on 08/21/25at 01:19; Start 08/20/25 at 17:00; Stop 08/23/25 at 16:59; Status DC Dextrose 50 ml AD PRN IV; Start 08/20/25 at 17:00; Stop 09/10/25 at 17:50; Status DC Glucagon 1 mg AD PRN IM; Start 08/20/25 at 17:00; Stop 09/10/25 at 17:50; Status DC Amiodarone HCL/ Dextrose 100 ml @ As Directed STK-MED ONCE .ROUTE; Start 08/20/25 at 16:52; Stop 08/20/25 at 16:52; Status DC Lidocaine HCl 100 mg STK-MED ONCE .ROUTE; Start 08/20/25 at 17:34; Stop 08/20/25 at 17:34; Status DC Morphine Sulfate 0.5 mg Q2H PRN IV; Start 08/20/25 at 18:30; Stop 08/21/25 at 16:59; Status DC Heparin Sodium (Porcine) 10,000 unit STK-MED ONCE .ROUTE; Start 08/20/25 at 18:12; Stop 08/20/25 at 18:12; Status DC Insulin Human Regular 300 unit STK-MED ONCE .ROUTE; Start 08/20/25 at 19:39; Stop 08/20/25 at 19:39; Status DC Dexmedetomidine/ Sodium Chloride 400 mcg PROTOCOL IV Last administered on 08/31/25at 06:18; Start 08/20/25 at 20:30; Stop 09/07/25 at 20:17; Status DC Magnesium Sulfate 8.12 meq STK-MED ONCE IJ; Start 08/20/25 at 20:17; Stop 08/20/25 at 20:17; Status DC Vasopressin 20 units STK-MED ONCE .ROUTE; Start 08/20/25 at 20:17; Stop 08/20/25 at 20:17; Status DC Amiodarone HCl 360 mg/Dextrose 207.2 ml @ 33.3 mls/hr AD IV; Start 08/20/25 at 21:00; Stop 08/20/25 at 21:05; Status DC Amiodarone HCl 540 mg/Dextrose 310.8 ml @ 16.7 mls/hr [id number] IV Last administered on 08/21/25at 20:12; Start 08/21/25 at 03:00; Stop 08/27/25 at 06:20; Status DC Amiodarone HCL/ Dextrose 207.2 ml @ 33.3 mls/hr AD IV Last administered on 08/20/25at 21:24; Start 08/20/25 at 21:30; Stop 08/21/25 at 10:49; Status DC Albumin Human 250 ml @ 0 mls/hr ONCE ONCE IV Last administered on 08/20/25at 00:00; Start 08/20/25 at 00:00; Stop 08/20/25 at 23:58; Status DC Lidocaine HCl/ Dextrose 250 ml @ 0 mls/hr PROTOCOL IV; Start 08/21/25 at 00:00; Stop 09/07/25 at 20:17; Status DC Albumin Human 250 ml @ As Directed STK-MED ONCE IV; Start 08/21/25 at 00:03; Stop 08/21/25 at 00:05; Status DC Vancomycin HCl 250 ml @ 125 mls/hr Q8H IV; Start 08/21/25 at 08:00; Stop 08/21/25 at 06:28; Status DC Vancomycin HCl 250 ml @ 125 mls/hr Q8H IV Last administered on 08/21/25at 08:15; Start 08/21/25 at 06:30; Stop 08/21/25 at 08:35; Status DC Vancomycin HCl 250 ml @ 125 mls/hr Q8H IV Last administered on 08/24/25at 09:32; Start 08/21/25 at 16:30; Stop 08/24/25 at 16:54; Status DC Furosemide 20 mg Q12H IV Last administered on 08/22/25at 11:53; Start 08/21/25 at 11:30; Stop 08/22/25 at 14:17; Status DC Acetaminophen 1,000 mg Q6H6 IVPB Last administered on 09/04/25at 07:06; Start 08/21/25 at 12:00; Stop 09/04/25 at 10:41; Status DC Heparin Sodium/ Dextrose 250 ml @ 0 mls/hr PROTOCOL IV Last administered on 08/28/25at 15:28; Start 08/21/25 at 11:30; Stop 09/03/25 at 06:32; Status DC Iron Sucrose 200 mg DAILY IV Last administered on 08/22/25at 11:53; Start 08/21/25 at 13:00; Stop 08/23/25 at 09:43; Status DC Amiodarone HCl 200 mg BID PO Last administered on 08/28/25at 20:25; Start 08/22/25 at 09:00; Stop 08/29/25 at 21:00; Status DC Famotidine 20 mg BID PO Last administered on 09/10/25at 09:35; Start 08/22/25 at 09:00; Stop 09/10/25 at 17:50; Status DC Insulin Human Regular INSULIN SLIDING SCAL... ACHS SQ Last administered on 08/22/25at 20:58; Start 08/22/25 at 11:30; Stop 08/22/25 at 21:32; Status DC Furosemide 40 mg Q12H IV; Start 08/22/25 at 21:00; Stop 08/22/25 at 14:32; Status DC Furosemide 20 mg Q12H IV Last administered on 08/23/25at 09:50; Start 08/22/25 at 21:00; Stop 08/23/25 at 11:37; Status DC Insulin Human Regular INSULIN SLIDING SCAL... ACHS SQ Last administered on 09/10/25at 11:50; Start 08/23/25 at 07:30; Stop 09/10/25 at 17:50; Status DC Insulin Glargine 15 units DAILY SQ Last administered on 08/27/25at 08:35; Start 08/23/25 at 09:00; Stop 08/28/25 at 07:20; Status DC Iron Sucrose 200 mg DAILY IV Last administered on 08/25/25at 09:25; Start 08/23/25 at 09:00; Stop 08/26/25 at 08:57; Status DC Furosemide 40 mg Q12H IV Last administered on 08/29/25at 22:38; Start 08/23/25 at 11:30; Stop 08/30/25 at 11:08; Status DC Gabapentin 300 mg TID PO Last administered on 09/10/25at 14:11; Start 08/23/25 at 14:00; Stop 09/10/25 at 17:50; Status DC Vancomycin HCl 250 ml @ 125 mls/hr Q12H IV Last administered on 08/26/25at 11:47; Start 08/24/25 at 23:00; Stop 08/26/25 at 21:47; Status DC Tramadol HCl 25 mg Q6H PRN PO Last administered on 08/27/25at 03:12; Start 08/26/25 at 11:00; Stop 08/31/25 at 10:59; Status DC Tramadol HCl 50 mg Q6H PRN PO Last administered on 08/29/25at 05:39; Start 08/26/25 at 11:00; Stop 08/31/25 at 10:59; Status DC Benzocaine 1 each Q4H PRN MM Last administered on 09/04/25at 00:35; Start 08/26/25 at 11:30; Stop 09/10/25 at 17:50; Status DC Midodrine 5 mg Q6H6 PO Last administered on 09/01/25at 06:57; Start 08/26/25 at 16:00; Stop 09/01/25 at 10:53; Status DC Phenylephrine HCl 100 mg/Sodium Chloride 250 ml @ 0 mls/hr PROTOCOL IV; Start 08/26/25 at 20:30; Stop 09/07/25 at 20:17; Status DC Insulin Human Regular 3 unit TIDAC SQ Last administered on 08/27/25at 16:47; Start 08/27/25 at 07:30; Stop 08/27/25 at 20:56; Status DC Insulin Human Regular 6 unit TIDAC SQ Last administered on 09/10/25at 11:51; Start 08/28/25 at 07:30; Stop 09/10/25 at 17:50; Status DC Insulin Glargine 20 units DAILY SQ Last administered on 09/05/25at 08:06; Start 08/28/25 at 09:00; Stop 09/06/25 at 09:44; Status DC Lactulose 20 gm ONCE ONCE PO Last administered on 08/28/25at 09:14; Start 08/28/25 at 09:00; Stop 08/28/25 at 09:01; Status DC Cefazolin Sodium 1 gm STK-MED ONCE .ROUTE; Start 08/29/25 at 08:56; Stop 08/29/25 at 08:56; Status DC Heparin Sodium/ Sodium Chloride 500 ml @ As Directed STK-MED ONCE IV; Start 08/29/25 at 08:56; Stop 08/29/25 at 08:57; Status DC Midazolam HCl 2 mg STK-MED ONCE .ROUTE; Start 08/29/25 at 10:06; Stop 08/29/25 at 10:07; Status DC Lidocaine HCl 100 mg STK-MED ONCE .ROUTE; Start 08/29/25 at 10:15; Stop 08/29/25 at 10:15; Status DC Propofol 200 mg STK-MED ONCE IV; Start 08/29/25 at 10:15; Stop 08/29/25 at 10:15; Status DC Rocuronium Coleraine 50 mg STK-MED ONCE .ROUTE; Start 08/29/25 at 10:37; Stop 08/29/25 at 10:37; Status DC Midazolam HCl 2 mg STK-MED ONCE .ROUTE; Start 08/29/25 at 10:46; Stop 08/29/25 at 10:47; Status DC Cefazolin Sodium 2 gm STK-MED ONCE IVPB Last administered on 08/29/25at 10:05; Start 08/29/25 at 10:05; Stop 08/29/25 at 11:24; Status DC Fentanyl Citrate 250 mcg STK-MED ONCE IV; Start 08/29/25 at 11:21; Stop 08/29/25 at 11:22; Status DC Furosemide 40 mg ONCE ONCE IV Last administered on 08/30/25at 10:11; Start 08/30/25 at 10:00; Stop 08/30/25 at 10:01; Status DC Piperacillin Sod/ Tazobactam Sod 3.375 gm Q8H IV Last administered on 09/09/25at 03:07; Start 08/30/25 at 10:00; Stop 09/09/25 at 09:59; Status DC Furosemide 100 mg/ Sodium Chloride 100 ml @ 0 mls/hr PROTOCOL IV Last administered on 09/02/25at 09:12; Start 08/30/25 at 11:30; Stop 09/02/25 at 10:56; Status DC Lidocaine/ Prilocaine 1 appl ONCE TP Last administered on 08/31/25at 13:59; Start 08/31/25 at 13:30; Stop 09/01/25 at 07:33; Status DC Wound Care/ Dressing Products 1 gm BID TP Last administered on 08/31/25at 21:26; Start 08/31/25 at 21:00; Stop 09/01/25 at 07:35; Status DC Wound Care/ Dressing Products 1 GM BID TP Last administered on 09/10/25at 09:39; Start 09/01/25 at 09:00; Stop 09/10/25 at 17:50; Status DC Midodrine 10 mg Q6H6 PO Last administered on 09/02/25at 12:32; Start 09/01/25 at 12:00; Stop 09/02/25 at 16:25; Status DC Midodrine 5 mg ONCE ONCE PO Last administered on 09/01/25at 11:03; Start 09/01/25 at 11:00; Stop 09/01/25 at 11:01; Status DC Potassium Chloride 100 ml @ 50 mls/hr ONCE ONCE IV Last administered on 09/02/25at 12:34; Start 09/02/25 at 10:00; Stop 09/02/25 at 11:59; Status DC Magnesium Sulfate 50 ml @ 0 mls/hr PROTOCOL IV Last administered on 09/10/25at 04:36; Start 09/02/25 at 10:00; Stop 09/10/25 at 17:50; Status DC Furosemide 40 mg Q12H IV Last administered on 09/04/25at 21:35; Start 09/02/25 at 11:00; Stop 09/05/25 at 08:55; Status DC Midodrine 15 mg Q6H6 PO Last administered on 09/10/25at 11:40; Start 09/02/25 at 18:00; Stop 09/10/25 at 17:50; Status DC Enoxaparin Sodium 40 mg DAILY SQ Last administered on 09/03/25at 08:22; Start 09/03/25 at 09:00; Stop 09/04/25 at 10:33; Status DC Vancomycin HCl 1 gm ONCALL ONCE IV; Start 09/03/25 at 10:00; Stop 09/03/25 at 10:01; Status DC Sodium Bicarbonate 50 ml @ As Directed STK-MED ONCE .ROUTE; Start 09/04/25 at 07:11; Stop 09/04/25 at 07:11; Status DC Lidocaine HCl 50 ml STK-MED ONCE .ROUTE; Start 09/04/25 at 07:11; Stop 09/04/25 at 07:11; Status DC Iohexol 50 ml STK-MED ONCE IV; Start 09/04/25 at 07:11; Stop 09/04/25 at 07:11; Status DC Bupivacaine HCl 2.5 mg STK-MED ONCE IJ; Start 09/04/25 at 07:11; Stop 09/04/25 at 07:11; Status DC Vancomycin HCl 500 ml @ As Directed STK-MED ONCE IV; Start 09/04/25 at 07:11; Stop 09/04/25 at 07:12; Status DC Vancomycin HCl 250 ml @ As Directed STK-MED ONCE IV; Start 09/04/25 at 07:24; Stop 09/04/25 at 07:24; Status DC Fentanyl Citrate 100 mcg STK-MED ONCE .ROUTE; Start 09/04/25 at 08:04; Stop 09/04/25 at 08:04; Status DC Midazolam HCl 2 mg STK-MED ONCE .ROUTE; Start 09/04/25 at 08:04; Stop 09/04/25 at 08:04; Status DC Midazolam HCl 2 mg STK-MED ONCE .ROUTE; Start 09/04/25 at 08:09; Stop 09/04/25 at 08:09; Status DC Midazolam HCl 2 mg STK-MED ONCE .ROUTE; Start 09/04/25 at 09:01; Stop 09/04/25 at 09:01; Status DC Fentanyl Citrate 100 mcg STK-MED ONCE .ROUTE; Start 09/04/25 at 09:38; Stop 09/04/25 at 09:38; Status DC Acetaminophen 1,000 mg Q6H PRN PO Last administered on 09/10/25at 09:45; Start 09/04/25 at 10:30; Stop 09/10/25 at 17:50; Status DC Acetaminophen/ Codeine Phosphate 2 tab Q4H PRN PO; Start 09/04/25 at 10:30; Stop 09/04/25 at 23:33; Status DC Acetaminophen/ Codeine Phosphate 1 tab Q4H PRN PO Last administered on 09/04/25at 14:27; Start 09/04/25 at 11:00; Stop 09/04/25 at 23:33; Status DC Tramadol HCl 25 mg Q6H PRN PO; Start 09/04/25 at 23:30; Stop 09/09/25 at 23:29; Status DC Tramadol HCl 50 mg Q6H PRN PO Last administered on 09/09/25at 14:13; Start 09/04/25 at 23:30; Stop 09/09/25 at 23:29; Status DC Metoprolol Succinate 12.5 mg DAILY PO Last administered on 09/10/25at 09:36; Start 09/05/25 at 09:00; Stop 09/10/25 at 17:50; Status DC Furosemide 20 mg BID@17 PO Last administered on 09/10/25at 09:36; Start 09/05/25 at 09:00; Stop 09/10/25 at 17:51; Status DC Insulin Glargine 24 units DAILY SQ Last administered on 09/10/25at 09:39; Start 09/07/25 at 09:00; Stop 09/10/25 at 17:51; Status DC Calcium Carbonate 500 tab TID PRN PO Last administered on 09/07/25at 20:46; Start 09/06/25 at 11:30; Stop 09/10/25 at 17:51; Status DC Magnesium Sulfate 50 ml @ 0 mls/hr PROTOCOL IV; Start 09/07/25 at 09:30; Stop 09/07/25 at 09:04; Status DC Magnesium Sulfate 50 ml @ 0 mls/hr PROTOCOL IV; Start 09/09/25 at 10:00; Stop 09/09/25 at 09:37; Status DC Tramadol HCl 25 mg ONCE ONCE PO Last administered on 09/10/25at 05:11; Start 09/10/25 at 05:30; Stop 09/10/25 at 05:31; Status DC Magnesium Sulfate 50 ml @ 0 mls/hr PROTOCOL IV; Start 09/10/25 at 07:30; Stop 09/10/25 at 07:15; Status DC Tramadol HCl 50 mg Q6H PRN PO Last administered on 09/10/25at 11:47; Start 09/10/25 at 11:30; Stop 09/10/25 at 17:51; Status DC CAROLYN BYRNE MD Sep 10, 2025 20:41
== END 2025-09-10 17:00 | disposition home or self-care (01) | DRG 215 ==
LOC: EDH 14:20 → EDHIP 14:21 → 2CH 18:40 → 2CV 08-20 15:55 → 2BH 08-22 16:49 → 2AH 09-05 12:40
PROVIDERS: ADMIT Internal Medicine; ATTEND Internal Medicine
PROC: 4A023N7 Measurement of Cardiac Sampling and Pressure, Left Heart, Percutaneous Approach (ICD-10-PCS; principal; 2025-08-13)
PROC: 02HA3RZ Insertion of Short-term External Heart Assist System into Heart, Percutaneous Approach (ICD-10-PCS; 2025-08-13)
PROC: 5A0221D Assistance with Cardiac Output using Impeller Pump, Continuous (ICD-10-PCS; 2025-08-13)
PROC: B2110ZZ Fluoroscopy of Multiple Coronary Arteries using High Osmolar Contrast (ICD-10-PCS; 2025-08-13)
PROC: 02HV33Z Insertion of Infusion Device into Superior Vena Cava, Percutaneous Approach (ICD-10-PCS; 2025-08-14)
PROC: 30233N1 Transfusion of Nonautologous Red Blood Cells into Peripheral Vein, Percutaneous Approach (ICD-10-PCS; 2025-08-19)
PROC: 02100Z9 Bypass Coronary Artery, One Artery from Left Internal Mammary, Open Approach (ICD-10-PCS; 2025-08-20)
PROC: 021109W Bypass Coronary Artery, Two Arteries from Aorta with Autologous Venous Tissue, Open Approach (ICD-10-PCS; 2025-08-20)
PROC: 0PH000Z Insertion of Rigid Plate Internal Fixation Device into Sternum, Open Approach (ICD-10-PCS; 2025-08-20)
PROC: 06BQ4ZZ Excision of Left Saphenous Vein, Percutaneous Endoscopic Approach (ICD-10-PCS; 2025-08-20)
PROC: 02L70CK Occlusion of Left Atrial Appendage with Extraluminal Device, Open Approach (ICD-10-PCS; 2025-08-20)
PROC: 5A1221Z Performance of Cardiac Output, Continuous (ICD-10-PCS; 2025-08-20)
PROC: 02PA3RZ Removal of Short-term External Heart Assist System from Heart, Percutaneous Approach (ICD-10-PCS; 2025-08-29)
PROC: 0JH607Z Insertion of Cardiac Resynchronization Pacemaker Pulse Generator into Chest Subcutaneous Tissue and Fascia, Open Approach (ICD-10-PCS; 2025-09-04)
PROC: 02H63JZ Insertion of Pacemaker Lead into Right Atrium, Percutaneous Approach (ICD-10-PCS; 2025-09-04)
PROC: 02HK3JZ Insertion of Pacemaker Lead into Right Ventricle, Percutaneous Approach (ICD-10-PCS; 2025-09-04)
DX: I21.4 Non-ST elevation (NSTEMI) myocardial infarction (principal); R57.0 Cardiogenic shock; J95.1 Acute pulmonary insufficiency following thoracic surgery; I50.33 Acute on chronic diastolic (congestive) heart failure; J69.0 Pneumonitis due to inhalation of food and vomit; J95.821 Acute postprocedural respiratory failure; E46 Unspecified protein-calorie malnutrition; I31.39 Other pericardial effusion (noninflammatory); E87.1 Hypo-osmolality and hyponatremia; D62 Acute posthemorrhagic anemia; I44.2 Atrioventricular block, complete; D69.6 Thrombocytopenia, unspecified; I11.0 Hypertensive heart disease with heart failure; N30.00 Acute cystitis without hematuria; I47.29 Other ventricular tachycardia; B96.20 Unspecified Escherichia coli [E. coli] as the cause of diseases classified elsewhere; B96.89 Other specified bacterial agents as the cause of diseases classified elsewhere; E66.9 Obesity, unspecified; E11.65 Type 2 diabetes mellitus with hyperglycemia; F14.10 Cocaine abuse, uncomplicated; F32.A Depression, unspecified; E87.20 Acidosis, unspecified; I97.821 Postprocedural cerebrovascular infarction following other surgery; I45.2 Bifascicular block; I25.10 Atherosclerotic heart disease of native coronary artery without angina pectoris; E78.5 Hyperlipidemia, unspecified; F41.9 Anxiety disorder, unspecified; E78.00 Pure hypercholesterolemia, unspecified; F17.200 Nicotine dependence, unspecified, uncomplicated; F43.10 Post-traumatic stress disorder, unspecified; G89.29 Other chronic pain; K59.09 Other constipation; I25.2 Old myocardial infarction; Z79.82 Long term (current) use of aspirin; Z79.84 Long term (current) use of oral hypoglycemic drugs; Z79.899 Other long term (current) drug therapy; Z82.49 Family history of ischemic heart disease and other diseases of the circulatory system; Z86.73 Personal history of transient ischemic attack (TIA), and cerebral infarction without residual deficits; Z86.74 Personal history of sudden cardiac arrest; Z90.49 Acquired absence of other specified parts of digestive tract; Z95.0 Presence of cardiac pacemaker; Z91.148 Patient's other noncompliance with medication regimen for other reason
CPT/HCPCS: 33207; 33208; 33225; 33990; 36415; 36430; 36556; 36569; 36600; 71045; 73020; 73560; 73562; 80048; 80053; 80061; 80076; 80202; 80305; 81001; 82010; 82330; 82435; 82803; 82947; 82948; 83036; 83540; 83550; 83605; 83690; 83735; 83880; 84100; 84132; 84145; 84295; 84443; 84484; 84550; 85014; 85018; 85025; 85027; 85347; 85384; 85610; 85730; 86022; 86140; 86850; 86870; 86880; 86900; 86901; 86905; 86922; 87040; 87086; 87186; 87426; 87641; 87804; 93005; 93306; 93308; 93312; 93325; 93356; 93458; 93880; 93926; 93971; 94002; 94003; 94010; 94150; 94660; 96374; 97161; 99156; 99157; 99291; A4450; A7048; C1760; C1769; C1887; C1894; G0378; J0169; J0282; J0612; J0690; J0696; J1265; J1644; J1650; J1756; J1815; J1938; J2003; J2250; J2270; J2405; J2440; J2470; J2543; J2704; J2720; J3010; J3373; J3411; J3475; J3480; J3490; J7030; J7040; J7050; J7060; J7070; J7120; P9016; P9045; P9047; Q0163; Q9967; A4215; A4649; A4930; A6204; A9900; C1713; C1751; C1898; C1900; C2621; J0283; J0665; J1308; J3370; Q9965

== ENCOUNTER → 2025-10-05 | Outpatient (CLI) | payer SELFPAY ==
[~2025-10-05] MED LIST changes: -AMOX1TAB16 PO; -ATOR40TA69 PO; -AZIT250T9 PO; -CLOP-31 PO; -FLUT16H NS; +FURO20TA6 PO; +GABA300C PO; -GLYB2.5T6 PO; -INSU100I3 SQ; -LORA10TA7 PO; -METF-445 PO; -METO25 PO; +MIDO10TA3 PO; +MVIT PO; -NAPR-1196 PO; -NITR0.4T50 SL; -PANT40TA55 PO
== END | disposition home or self-care (01) ==
LOC: WHH 10:56
PROVIDERS: ATTEND Family Medicine
DX: L89.312 Pressure ulcer of right buttock, stage 2 (principal); I25.10 Atherosclerotic heart disease of native coronary artery without angina pectoris; F41.9 Anxiety disorder, unspecified; E66.9 Obesity, unspecified; I25.2 Old myocardial infarction; I11.0 Hypertensive heart disease with heart failure; I50.33 Acute on chronic diastolic (congestive) heart failure; F32.A Depression, unspecified; E78.00 Pure hypercholesterolemia, unspecified; E46 Unspecified protein-calorie malnutrition; G89.29 Other chronic pain; Z79.899 Other long term (current) drug therapy; Z95.0 Presence of cardiac pacemaker; Z68.29 Body mass index [BMI] 29.0-29.9, adult; Z95.1 Presence of aortocoronary bypass graft; Z86.73 Personal history of transient ischemic attack (TIA), and cerebral infarction without residual deficits; Z87.891 Personal history of nicotine dependence; Z90.49 Acquired absence of other specified parts of digestive tract
CPT/HCPCS: 99215

== ENCOUNTER 2025-10-12 10:03 | Outpatient (CLI) | payer SELFPAY | END 2025-10-12 13:02 | disposition home or self-care (01) | LOC: WHH 10:03 | PROVIDERS: ATTEND Family Medicine | DX: L89.319 Pressure ulcer of right buttock, unspecified stage (principal); I25.10 Atherosclerotic heart disease of native coronary artery without angina pectoris; F41.9 Anxiety disorder, unspecified; E78.5 Hyperlipidemia, unspecified; E66.9 Obesity, unspecified; I25.2 Old myocardial infarction; I11.0 Hypertensive heart disease with heart failure; I50.33 Acute on chronic diastolic (congestive) heart failure; F32.A Depression, unspecified; E78.00 Pure hypercholesterolemia, unspecified; E46 Unspecified protein-calorie malnutrition; G89.29 Other chronic pain; Z79.899 Other long term (current) drug therapy; Z95.0 Presence of cardiac pacemaker; Z68.29 Body mass index [BMI] 29.0-29.9, adult; Z95.1 Presence of aortocoronary bypass graft; Z86.73 Personal history of transient ischemic attack (TIA), and cerebral infarction without residual deficits; Z87.891 Personal history of nicotine dependence; Z90.49 Acquired absence of other specified parts of digestive tract | CPT/HCPCS: 99214 ==